=== PATIENT | female | born 1960 | race African-American/Black ===

== ENCOUNTER 2016-09-22 16:19 | Emergency (ER) | payer MEDICAID ==
[~2016-09-22] VITALS: Ht 154.9 cm; Wt 79.8 kg
[~2016-09-22 16:19] MED LIST: ATENOLOL25 MG ORAL; CARDURA4 MG ORAL; CIPRO500 MG PO; CYCLOBENZAPRINE10 MG ORAL; FLAGYL500 MG ORAL; GABAPENTIN300 MG ORAL; GABAPENTIN600 MG ORAL; IBUPROFEN400 MG ORAL; IBUPROFEN600 MG ORAL; TRAMADOL HCL50 MG ORAL; TYLENOL EXTRA500 MG ORAL; insulin SQ
[2016-09-22] MEDS ORDERED: traMADol 50mg tab ORAL ONE (16:45)
[2016-09-22] MEDS ORDERED: GABAPENTIN600 MG ORAL (17:29)
[2016-09-22] MEDS ORDERED: CEPHALEXIN500 MG ORAL (17:29)
[2016-09-22] MEDS ORDERED: TRAMADOL HCL50 MG ORAL (17:29)
[2016-09-22 17:45] VITALS: BP 158/90
[2016-09-22 17:47] VITALS: BP 158/90
--- NOTE | 2016-09-22 19:15 | Emergency Room Report ---
History of Present Illness General Chief Complaint: Pain Source: Patient Present Illness HPI The patient is a 56-year-old female with a history of chronic pain and diabetic neuropathy presenting for pain. The patient states that she has a 10 out of 10 dull ache to bilateral hips, legs, and arms. Pain worse with movement. She admits to numbness and tingling of these areas. She states that this feels typical of her pain. She has been prescribed gabapentin and tramadol in the past which both helped. She states that she has not been able to see her primary doctor. She denies any recent injury or fall. She denies any other symptoms including N, V, F, chills, KELLER, dizziness, CP, SOB Allergies: Coded Allergies: No Known Allergies (Unverified , 07/30/15) Patient History Past Medical History: see triage record Pertinent Family History: none Reviewed Nursing Documentation: PMH: Agreed, PSxH: Agreed Nursing Documentation-PMH Hx Hypertension: Yes Hx Diabetes: Yes Review of Systems All Other Systems: negative except mentioned in HPI Physical Exam Vital Signs Date Time Temp Pulse Resp B/P Pulse Ox O2 Delivery O2 Flow Rate FiO2 09/22/16 16:31 98.2 109 20 166/91 98 Room Air Sp02 EP Interpretation: reviewed, normal General Appearance: no apparent distress, alert, GCS 15, non-toxic Head: normocephalic, atraumatic Eyes: bilateral eye PERRL, bilateral eye normal inspection ENT: hearing grossly normal, normal pharynx, no angioedema, normal voice Neck: full range of motion, supple/symm/no masses Respiratory: chest non-tender, lungs clear, normal breath sounds, speaking full sentences Cardiovascular #1: regular rate, rhythm, no edema Gastrointestinal: normal bowel sounds, non tender, soft, non-distended, no guarding, no rebound Musculoskeletal: gait/station normal, normal range of motion, swelling - R distal leg, tender - TTP over the R anterior distal leg with surrounding erythema 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, oriented x3, responsive, motor strength/tone normal, sensory intact, normal gait, speech normal Psychiatric: judgement/insight normal, memory normal, mood/affect normal, no suicidal/homicidal ideation Skin: rash - erythema and TTP over the distal R anterior leg Medical Decision Making PA Attestation Dr. Younger is my supervising physician. Patient management was discussed with my supervising physician Diagnostic Impression: Primary Impression: Cellulitis, leg Qualified Codes: L03.115 - Cellulitis of right lower limb Additional Impressions: Chronic hip pain Qualified Codes: M25.559 - Pain in unspecified hip; G89.29 - Other chronic pain Neuropathy ER Course The pt is a 56 yo F presenting for neuropathy, chronic pain, and possible infection of the R leg. Ddx considered include but not limited to sprain/strain, fracture, contusion, cellulitis, abscess, among others PE: afebrile. NAD SILT over the hands and feet. Full AROM. Normal gait There are two circular erythematous lesions to the distal R anterior leg. TTP. 1 + non pitting edema. The patient will be discharged home with a prescription for gabapentin, tramadol , and Keflex. She is to followup with primary doctor. ER precautions given Last Vital Signs Date Time Temp Pulse Resp B/P Pulse Ox O2 Delivery O2 Flow Rate FiO2 09/22/16 17:48 98.2 09/22/16 17:47 83 20 158/90 98 Room Air Status: improved Disposition: HOME, SELF-CARE Condition: Improved Scripts Tramadol Hcl* (ULTRAM*) 50 Mg Tablet 50 MG ORAL Q6H Y for For Pain, #10 TAB 0 Refills Prov: JANINE HENDERSON.A. 09/22/16 Cephalexin* (KEFLEX*) 500 Mg Capsule 500 MG ORAL EVERY 6 HOURS, #28 CAP Prov: TERZIAN,JANINE P.A. 09/22/16 Gabapentin* (GABAPENTIN*) 600 Mg Tablet 600 MG ORAL THREE TIMES A DAY, #30 TAB Prov: JANINE HENDERSON P.A. 09/22/16 Patient Instructions: Cellulitis, Chronic Pain Additional Instructions: I discussed my findings with the patient. All questions and concerns have been answered. Treatment and medication compliance have been addressed. I advised the patient that they need to follow up with PMD in 3-5 days. Return to ED if symptoms worsen, new symptoms arise, or if needed for any reason. Patient verbalized understanding of discharge instructions. JANINE HENDERSON Sep 22, 2016 19:15
== END 2016-09-22 17:48 | disposition home or self-care (01) ==
LOC: EMR 16:50
DX: L03.115 Cellulitis of right lower limb (principal); G89.29 Other chronic pain; I10 Essential (primary) hypertension; E11.9 Type 2 diabetes mellitus without complications; G62.9 Polyneuropathy, unspecified
CPT/HCPCS: 99284

== ENCOUNTER 2016-12-01 10:21 | Emergency (ER) | payer MEDICAID ==
[~2016-12-01] VITALS: Ht 157.5 cm; Wt 78.9 kg
[~2016-12-01 10:21] MED LIST changes: +CEPHALEXIN500 MG ORAL
[2016-12-01] MEDS ORDERED: Morphine Sulfate 4mg/ml Inj IVP ONE ×2 (11:00→13:15)
[2016-12-01 11:42] LABS: APPEARANCE,URINE SLIGHTLY CLOUDY; KETONES,URINE NEGATIVE (NEGATIVE); LEUKOCYTE ESTERASE ,URINE 1+ (NEGATIVE); NITRITE,URINE NEGATIVE (NEGATIVE); PH,URINE 6.5 (4.5-8.0); PROTEIN,URINE 2+ (NEGATIVE); UROBILINOGEN,URINE 1 MG/DL (0.0-1.0)
[2016-12-01 11:50] LABS: BASOPHILS % (AUTO) 0.8 % (0.0-2.0); EOSINOPHILS % (AUTO) 5.6 % (0.0-3.0); LYMPHOCYTES % (AUTO) 24.5 % (20.0-45.0); MEAN CORPUSCULAR HEMOGLOBIN 30.6 PG (27.0-31.0); MEAN CORPUSCULAR HGB CONC 33.5 G/DL (32.0-36.0); MEAN CORPUSCULAR VOLUME 91 FL (80-99); MEAN PLATELET VOLUME 6.6 FL (6.5-10.1); MONOCYTES % (AUTO) 4.8 % (1.0-10.0); NEUTROPHILS % (AUTO) 64.3 % (45.0-75.0); PLATELET COUNT 353 K/UL (150-450); RED BLOOD COUNT 4.27 M/UL (4.20-5.40); RED CELL DISTRIBUTION WIDTH 11.4 % (11.6-14.8); WHITE BLOOD COUNT 7.1 K/UL (4.8-10.8)
[2016-12-01 11:57] LABS: ALANINE AMINOTRANSFERASE 53 U/L (3-33); ALBUMIN/GLOBULIN RATIO 0.8 (1.0-2.7); ANION GAP 12 (5-15); ASPARTATE AMINO TRANSFERASE 76 U/L (5-40); CALCIUM 9.1 mg/dL (8.6-10.2); CARBON DIOXIDE 28 mEQ/L (20-30); CHLORIDE 96 mEQ/L (98-107); CREATININE 0.7 mg/dL (0.5-0.9); GLOMERULAR FILTRATION RATE > 60 mL/min (>60); HEMOLYSIS 19; LIPASE 31 U/L (< 60); POTASSIUM 3.8 mEQ/L (3.4-4.9); SODIUM 136 mEQ/L (135-145); TOTAL PROTEIN 8.2 g/dL (6.6-8.7)
[2016-12-01 12:08] VITALS: BP 118/78
[2016-12-01 12:18] LABS: BACTERIA,URINE MANY /HPF; RBC,URINE 0-2 /HPF (0 - 2); SQUAMOUS EPITHELIAL CELL,UR FEW /LPF (NONE/OCC)
--- NOTE | 2016-12-01 14:38 | Diagnostic Imaging Report ---
Indication: Abdominal pain Technique: Continuous helical transaxial imaging of the abdomen and pelvis was obtained from the lung bases to the pubic symphysis during intravenous contrast administration. Coronal 2-D reformats were also obtained. Study obtained in a Siemens sensation [address] Total Dose length Product (DLP): [address] Dose Index Volume (CTDIvol): 19 mGy Comparison: None Findings: The lung bases are clear. The liver is low in attenuation consistent with fatty infiltration. Gallbladder is unremarkable. There are no renal stones or hydronephrosis demonstrated. Diverticula noted in the colon. No evidence of diverticulitis. The uterus is absent. The urinary bladder is unremarkable. The appendix is probably visualized and unremarkable as such. There are surgical clips in the right adnexa/right lower quadrant. Spleen and pancreas are unremarkable. Both adrenal glands are grossly unremarkable. There is narrowing of intervertebral discs and accompanying endplate osteophyte formation. Hypertrophied facet joints also demonstrated. Impression: Mild fatty liver. Normal appendix. Mild diverticulosis. Status post hysterectomy Spondylosis Previous abdominal surgery. The CT scanner at [facility] is accredited by the [employer] and the scans are performed using dose optimization techniques as appropriate to a performed exam including Automatic Exposure control.
[2016-12-01] MEDS ORDERED: TRAMADOL HCL50 MG ORAL (14:55)
[2016-12-01] MEDS ORDERED: GABAPENTIN600 MG ORAL (14:55)
[2016-12-01 15:09] VITALS: BP 117/75
--- NOTE | 2016-12-01 15:15 | Emergency Room Report ---
History of Present Illness General Chief Complaint: Pain Source: Patient Present Illness HPI 56-year-old female presents ED complaining of right-sided abdominal pain started last week. Pain is sharp, nonradiating, 10 out of 10. Patient states the pain is getting worse and she came to ER. Denies any chest pain or shortness of breath. Denies any fevers or chills. Denies nausea or vomiting. No aggravating relieving factors. Denies any other associated symptoms Allergies: Coded Allergies: No Known Allergies (Unverified , 07/30/15) Patient History Past Medical History: DM, HTN Past Surgical History: none Pertinent Family History: none Social History: Denies: smoking, alcohol use, drug use Now: No Immunizations: UTD Reviewed Nursing Documentation: PMH: Agreed, PSxH: Agreed Nursing Documentation-PMH Past Medical History: No History, Except For Hx Hypertension: Yes Hx Diabetes: Yes Review of Systems All Other Systems: negative except mentioned in HPI Physical Exam Vital Signs Date Time Temp Pulse Resp B/P (MAP) Pulse Ox O2 Delivery O2 Flow Rate FiO2 12/01/16 10:30 97.9 95 16 118/78 98 Room Air Sp02 EP Interpretation: reviewed, normal General Appearance: no apparent distress, alert, GCS 15, non-toxic Head: normocephalic, atraumatic Eyes: bilateral eye normal inspection, bilateral eye PERRL ENT: hearing grossly normal, normal pharynx, no angioedema, normal voice Neck: full range of motion, supple/symm/no masses Respiratory: chest non-tender, lungs clear, normal breath sounds, speaking full sentences Cardiovascular #1: regular rate, rhythm, no edema Cardiovascular #2: 2+ carotid (R), 2+ carotid (L), 2+ radial (R), 2+ radial (L) , 2+ dorsalis pedis (R), 2+ dorsalis pedis (L) Gastrointestinal: normal bowel sounds, soft, non-distended, no guarding, no rebound, tenderness - RUQ Rectal: deferred Genitourinary: normal inspection, no CVA tenderness Musculoskeletal: back normal, gait/station normal, normal range of motion, non- tender 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, oriented x3, responsive, motor strength/tone normal, sensory intact, speech normal Psychiatric: judgement/insight normal, memory normal, mood/affect normal, no suicidal/homicidal ideation Reflexes: 3+ bicep (R), 3+ bicep (L), 3+ tricep (R), 3+ tricep (L), 3+ knee (R) , 3+ knee (L) Skin: normal color, no rash, warm/dry, well hydrated Lymphatic: no adenopathy Medical Decision Making Diagnostic Impression: Primary Impression: Abdominal pain Qualified Codes: R10.11 - Right upper quadrant pain Additional Impression: Fatty liver ER Course Hospital Course 56-year-old F presents to ED with RUQ pain Differential diagnosis includes-appendicitis, cholecystitis, small bowel obstruction, gastritis, Clinical course Patient placed on stretcher. After initial history and physical I ordered labs , IV fluids, pain medications and CT scan Labs - no leukocytosis, electrolytes ok, LFTs mildly elevated CT scan shows no acute pathology. GB Normal. fatty liver also seen on US Discussed findings with patient. patient will be discharged with pain medications recommend followup with PMD I feel this is a highly complex case requiring extensive working including EKG/ Rhythm strip, Xray/CT/US, Blood/urine lab work, repeat exams while in ED, and administration of strong opiates/narcotics for pain control, admission to hospital or close patient follow up. Diagnosis - abdominal pain, fatty liver Stable and discharged to home with Rx Tramadol, Gabapentin. Followup with PMD. Return to ED if symptoms recur or worsen Labs Test 12/01/16 11:10 White Blood Count 7.1 K/UL (4.8-10.8) Red Blood Count 4.27 M/UL (4.20-5.40) Hemoglobin 13.1 G/DL (12.0-16.0) Hematocrit 38.9 % (37.0-47.0) Mean Corpuscular Volume 91 FL (80-99) Mean Corpuscular Hemoglobin 30.6 PG (27.0-31.0) Mean Corpuscular Hemoglobin Concent 33.5 G/DL (32.0-36.0) Red Cell Distribution Width 11.4 % (11.6-14.8) Platelet Count 353 K/UL (150-450) Mean Platelet Volume 6.6 FL (6.5-10.1) Neutrophils (%) (Auto) 64.3 % (45.0-75.0) Lymphocytes (%) (Auto) 24.5 % (20.0-45.0) Monocytes (%) (Auto) 4.8 % (1.0-10.0) Eosinophils (%) (Auto) 5.6 % (0.0-3.0) Basophils (%) (Auto) 0.8 % (0.0-2.0) Urine Color Yellow Urine Appearance Slightly cloudy Urine pH 6.5 (4.5-8.0) Urine Specific [place] 1.015 (1.005-1.035) Urine Protein 2+ (NEGATIVE) Urine Glucose (UA) 4+ (NEGATIVE) Urine Ketones Negative (NEGATIVE) Urine Occult Blood Negative (NEGATIVE) Urine Nitrite Negative (NEGATIVE) Urine Bilirubin Negative (NEGATIVE) Urine Urobilinogen 1 MG/DL (0.0-1.0) Urine Leukocyte Esterase 1+ (NEGATIVE) Urine RBC 0-2 /HPF (0 - 2) Urine WBC 5-10 /HPF (0 - 2) Urine Squamous Epithelial Cells Few /LPF (NONE/OCC) Urine Bacteria Many /HPF (NONE) Sodium Level 136 mEQ/L (135-145) Potassium Level 3.8 mEQ/L (3.4-4.9) Chloride Level 96 mEQ/L (98-107) Carbon Dioxide Level 28 mEQ/L (20-30) Anion Gap 12 (5-15) Blood Urea Nitrogen 10 mg/dL (7-23) Creatinine 0.7 mg/dL (0.5-0.9) Estimat Glomerular Filtration Rate > 60 mL/min (>60) Glucose Level 405 mg/dL (74-106) Calcium Level 9.1 mg/dL (8.6-10.2) Total Bilirubin 0.5 mg/dL (0.0-1.2) Aspartate Amino Transf (AST/SGOT) 76 U/L (5-40) Alanine Aminotransferase (ALT/SGPT) 53 U/L (3-33) Alkaline Phosphatase 236 U/L (35-104) Total Protein 8.2 g/dL (6.6-8.7) Albumin 3.7 g/dL (3.5-5.2) Globulin 4.5 g/dL Albumin/Globulin Ratio 0.8 (1.0-2.7) Lipase 31 U/L (< 60) CT/MRI/US Diagnostic Results CT/MRI/US Diagnostic Results #1: Imaging Test Ordered: CT A/P Impression fatty liver CT/MRI/US Diagnostic Results #2: Imaging Test Ordered: ABD US Impression fatty liver, normal GB Last Vital Signs Date Time Temp Pulse Resp B/P (MAP) Pulse Ox O2 Delivery O2 Flow Rate FiO2 12/01/16 15:09 97.9 81 16 117/75 98 Room Air Disposition: HOME, SELF-CARE Condition: Stable Scripts Gabapentin* (GABAPENTIN*) 600 Mg Tablet 600 MG ORAL THREE TIMES A DAY, #30 TAB Prov: VINNIE GREEN M.D. 12/01/16 Tramadol Hcl* (ULTRAM*) 50 Mg Tablet 50 MG ORAL Q6H Y for For Pain, #30 TAB 0 Refills Prov: VINNIE GREEN M.D. 12/01/16 Referrals: NOT CHOSEN IPA/,REFERRING (PCP) Patient Instructions: Abdominal Pain, Adult, [id number], Hepatomegaly, Easy- to-Read VINNIE GREEN M.D. Dec 01, 2016 15:15
--- NOTE | 2016-12-01 15:34 | Diagnostic Imaging Report ---
Indication:Abdominal pain Technique: Grayscale and duplex Doppler imaging of the abdomen performed. Comparison: None Findings: The liver is slightly echogenic consistent with fatty infiltration. No gallstones are seen. CBD is 5 mm. The demonstrated part of the pancreas, aorta and IVC, both kidneys, spleen appear unremarkable. There is no biliary ductal dilatation identified. Doppler evaluation of the main portal vein shows patency. There is no ascites. No hydronephrosis seen. Impression: Mild fatty liver
== END 2016-12-01 15:12 | disposition home or self-care (01) ==
LOC: EMR 11:20
DX: R10.11 Right upper quadrant pain (principal); K76.0 Fatty (change of) liver, not elsewhere classified; E11.9 Type 2 diabetes mellitus without complications; I10 Essential (primary) hypertension
CPT/HCPCS: 36415; 74177; 76700; 80053; 81003; 83690; 85025; 87086; 87181; 96374; 96375; 99284; J2270; J7040; Q9967

== ENCOUNTER 2016-12-23 09:30 | Emergency (ER) | payer MEDICAID ==
[~2016-12-23] VITALS: Ht 157.5 cm; Wt 81.2 kg
[2016-12-23 09:42] VITALS: BP 173/101
[2016-12-23] MEDS ORDERED: Ketorolac 60mg Inj IM ONE (10:15)
[2016-12-23 10:38] LABS: APPEARANCE,URINE CLEAR; KETONES,URINE NEGATIVE (NEGATIVE); LEUKOCYTE ESTERASE ,URINE 2+ (NEGATIVE); NITRITE,URINE NEGATIVE (NEGATIVE); PH,URINE 7 (4.5-8.0); PROTEIN,URINE 2+ (NEGATIVE); UROBILINOGEN,URINE 4 MG/DL (0.0-1.0)
[2016-12-23 10:47] LABS: BACTERIA,URINE FEW /HPF; RBC,URINE 0-2 /HPF (0 - 2); SQUAMOUS EPITHELIAL CELL,UR FEW /LPF (NONE/OCC)
[2016-12-23 11:38] VITALS: BP 156/92
[2016-12-23 12:45] VITALS: BP 196/121
[2016-12-23 13:14] VITALS: BP 171/110
[2016-12-23] MEDS ORDERED: TRAMADOL HCL50 MG ORAL (13:16)
[2016-12-23 13:18] VITALS: BP 171/110
--- NOTE | 2016-12-24 23:13 | Emergency Room Report ---
History of Present Illness General Chief Complaint: Pain Source: Patient Present Illness HPI Patient is a 56-year-old female who presented after increased right-sided back pain as well as some dysuria. This reported increased urinary frequency. She reported having similar symptoms in the past. Patient prior history of chronic back pain. She is taking tramadol for pain in the past. She denies any fever. She had not been vomiting. Allergies: Coded Allergies: No Known Allergies (Unverified , 07/30/15) Patient History Past Medical History: see triage record Reviewed Nursing Documentation: PMH: Agreed, PSxH: Agreed Nursing Documentation-PM Past Medical History: No History, Except For Hx Hypertension: Yes Hx Diabetes: Yes Review of Systems All Other Systems: negative except mentioned in HPI Physical Exam Vital Signs Date Time Temp Pulse Resp B/P (MAP) Pulse Ox O2 Delivery O2 Flow Rate FiO2 12/23/16 09:42 97.9 96 22 173/101 98 Room Air General Appearance: well appearing, no apparent distress, alert, GCS 15 Head: normocephalic, atraumatic ENT: hearing grossly normal, normal voice Neck: full range of motion, supple Respiratory: normal inspection, lungs clear, no respiratory distress, speaking full sentences Cardiovascular #1: normal inspection, regular rate, rhythm, no gallop Gastrointestinal: normal bowel sounds, non tender, soft Musculoskeletal: normal inspection, back normal, gait/station normal, no calf tenderness Neurologic: normal inspection, alert, oriented x3, mobile engineer III-XII nml as tested, normal gait Psychiatric: mood/affect normal Skin: no rash Medical Decision Making Diagnostic Impression: Primary Impression: Hypertension Additional Impressions: Back pain UTI (urinary tract infection) ER Course Presented for back pain. Differential diagnosis included but was not limited to herniated disc, cauda equina syndrome, abdominal aortic aneurysm, perforated ulcer, spinal epidural abscess, spinal stenosis, lumbar fracture, metastatic lesion, pyelonephritis. urinalysis ordered due to patient's recent high urinary symptoms. The patient was noted to have some hypertension was given clonidine. Patient had improvement of pain. The patient given prescription for pain medications as well as antibiotics. Last Vital Signs Date Time Temp Pulse Resp B/P (MAP) Pulse Ox O2 Delivery O2 Flow Rate FiO2 12/23/16 13:18 97.9 85 18 171/110 100 Room Air Status: improved Disposition: HOME, SELF-CARE Condition: Stable Scripts Tramadol Hcl* (ULTRAM*) 50 Mg Tablet 50 MG ORAL Q6H Y for For Pain, #30 TAB 0 Refills Prov: Angelito Yanez 12/23/16 Patient Instructions: Urinary Tract Infection Angelito Yanez Dec 24, 2016 23:13
== END 2016-12-23 13:17 | disposition home or self-care (01) ==
LOC: EMR 10:08
DX: N39.0 Urinary tract infection, site not specified (principal); I10 Essential (primary) hypertension; E11.9 Type 2 diabetes mellitus without complications
CPT/HCPCS: 81003; 96372; 99284

== ENCOUNTER 2017-01-25 07:26 | Emergency (ER) | payer MEDICAID ==
[~2017-01-25] VITALS: Ht 157.5 cm; Wt 79.8 kg
[2017-01-25] MEDS ORDERED: GABAPENTIN600 MG ORAL (07:55)
[2017-01-25] MEDS ORDERED: ATENOLOL25 MG ORAL (07:55)
[2017-01-25 08:01] VITALS: BP 203/103
[2017-01-25 08:08] VITALS: BP 203/103
--- NOTE | 2017-01-25 08:16 | Emergency Room Report ---
History of Present Illness General Chief Complaint: Pain Source: Patient Present Illness HPI 56-year-old female presents ED for evaluation. Patient is here requesting medication refill. Patient states she ran out of her medications times one week. patient does not have her blood pressure or pain medications. Patient notes history of hypertension and chronic back pain. Blood pressure elevated in triage. Patient denies any headaches blurry vision or dizziness. Denies chest pain or shortness of breath. Patient is complaining of back pain. Pain is sharp, 10 out of 10, radiating down both legs. The tingling sensation in both feet. Patient states she takes tramadol and gabapentin for her pain. Patient does not remember what blood pressure medications she takes. No aggravating relieving factors. Denies any other associated symptoms Allergies: Coded Allergies: No Known Allergies (Unverified , 07/30/15) Patient History Past Medical History: DM, HTN Past Surgical History: none Pertinent Family History: none Social History: Denies: smoking, alcohol use, drug use Now: No Immunizations: UTD Reviewed Nursing Documentation: PMH: Agreed, PSxH: Agreed Nursing Documentation-PMH Past Medical History: No History, Except For Hx Hypertension: Yes Hx Diabetes: Yes Review of Systems All Other Systems: negative except mentioned in HPI Physical Exam Vital Signs Date Time Temp Pulse Resp B/P (MAP) Pulse Ox O2 Delivery O2 Flow Rate FiO2 01/25/17 07:34 97.9 83 18 203/103 96 Room Air Sp02 EP Interpretation: reviewed, normal General Appearance: no apparent distress, alert, GCS 15, non-toxic, obese Head: normocephalic, atraumatic Eyes: bilateral eye normal inspection, bilateral eye PERRL ENT: hearing grossly normal, normal pharynx, no angioedema, normal voice Neck: full range of motion, supple/symm/no masses Respiratory: chest non-tender, lungs clear, normal breath sounds, speaking full sentences Cardiovascular #1: regular rate, rhythm, no edema Cardiovascular #2: 2+ carotid (R), 2+ carotid (L), 2+ radial (R), 2+ radial (L) , 2+ dorsalis pedis (R), 2+ dorsalis pedis (L) Gastrointestinal: normal bowel sounds, non tender, soft, non-distended, no guarding, no rebound Rectal: deferred Genitourinary: normal inspection, no CVA tenderness Musculoskeletal: back normal, gait/station normal, normal range of motion, non- tender 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, oriented x3, responsive, motor strength/tone normal, sensory intact, speech normal Psychiatric: judgement/insight normal, memory normal, mood/affect normal, no suicidal/homicidal ideation Reflexes: 3+ bicep (R), 3+ bicep (L), 3+ tricep (R), 3+ tricep (L), 3+ knee (R) , 3+ knee (L) Skin: normal color, no rash, warm/dry, well hydrated Lymphatic: no adenopathy Medical Decision Making Diagnostic Impression: Primary Impression: Low back pain Qualified Codes: M54.42 - Lumbago with sciatica, left side; M54.41 - Lumbago with sciatica, right side; G89.29 - Other chronic pain Additional Impressions: Hypertension Qualified Codes: I10 - Essential (primary) hypertension Opioid dependence Qualified Codes: F11.29 - Opioid dependence with unspecified opioid-induced disorder ER Course 56-year-old female presents to ED refill of her medication. History of chronic pain and hypertension hospital course: After initial history and physical, I reviewed EMR. Patient takes atenolol for her blood pressure. Patient is asymptomatic. We'll provide refills of her atenolol I reviewed CURES; a she was getting monthly refills of her tramadol. I explained to the patient I cannot provider refill of her medication she needs to followup with her PMD/pain management. I will provide her with refills of her gabapentin Diagnosis- low back pain, hypertension, opioid dependence Stable and discharged to home with prescription for atenolol, gabapentin. Followup with PMD. Return to ED if symptoms recur or worsen Last Vital Signs Date Time Temp Pulse Resp B/P (MAP) Pulse Ox O2 Delivery O2 Flow Rate FiO2 01/25/17 08:01 83 16 203/103 98 Room Air 01/25/17 07:34 97.9 Status: improved Disposition: HOME, SELF-CARE Condition: Stable Scripts Atenolol* (TENORMIN*) 25 Mg Tablet 25 MG ORAL BID, #30 TAB Prov: VINNIE GREEN M.D. 01/25/17 Gabapentin* (GABAPENTIN*) 600 Mg Tablet 600 MG ORAL THREE TIMES A DAY, #30 TAB Prov: VINNIE GREEN M.D. 01/25/17 Referrals: NOT CHOSEN IPA/,REFERRING (PCP) Patient Instructions: Chronic Pain VINNIE GREEN M.D. Jan 25, 2017 08:16
== END 2017-01-25 08:08 | disposition home or self-care (01) ==
LOC: EMR 07:48
DX: M54.5 Low back pain (principal); G89.29 Other chronic pain; I10 Essential (primary) hypertension; E11.9 Type 2 diabetes mellitus without complications; F11.20 Opioid dependence, uncomplicated
CPT/HCPCS: 82962; 99283

== ENCOUNTER 2017-04-17 13:49 | Emergency (ER) | payer MEDICAID ==
[~2017-04-17] VITALS: Ht 154.9 cm; Wt 77.6 kg
[2017-04-17 13:55] VITALS: BP 147/86
[2017-04-17] MEDS ORDERED: AMLODIPINE BESY10 MG ORAL (13:59)
[2017-04-17] MEDS ORDERED: LISINOPRIL20 MG ORAL (13:59)
[2017-04-17] MEDS ORDERED: NOVOLIN 70100 UNIT/1 SUBQ (13:59)
[2017-04-17] MEDS ORDERED: HYDROCHLOROTHIA25 MG ORAL (13:59)
[2017-04-17] MEDS ORDERED: Sodium Chloride 500ML 500 ML IV ONE (14:08)
--- NOTE | 2017-04-17 14:11 | Emergency Room Report ---
History of Present Illness General Chief Complaint: Abdominal Pain Source: Patient, Medical Record Present Illness HPI Patient is a 56 female presented after increased sharp epigastric pain. Patient presented multiple episodes of watery diarrhea. Pain with the noted to be present for one week however this worsened this morning. Patient states that she had prior hysterectomy. She denies prior other surgeries. Patient states that she had no known bad food exposure. The patient denies being a smoker. Allergies: Coded Allergies: No Known Allergies (Unverified , 07/30/15) Patient History Last Menstrual Period: menopause Reviewed Nursing Documentation: PMH: Agreed, PSxH: Agreed Nursing Documentation-PMH Past Medical History: No History, Except For Hx Hypertension: Yes Hx Diabetes: Yes Review of Systems All Other Systems: negative except mentioned in HPI Physical Exam Vital Signs Date Time Temp Pulse Resp B/P (MAP) Pulse Ox O2 Delivery O2 Flow Rate FiO2 04/17/17 13:55 98.2 96 18 147/86 96 Room Air Sp02 EP Interpretation: reviewed, normal General Appearance: normal inspection, well appearing, no apparent distress, alert, GCS 15, non-toxic, obese Head: atraumatic ENT: normal ENT inspection, hearing grossly normal, normal voice Neck: normal inspection, full range of motion, supple, no bony tend Respiratory: normal inspection, lungs clear, normal breath sounds, no respiratory distress, no retraction, no wheezing Cardiovascular #1: regular rate, rhythm, no edema Gastrointestinal: normal inspection, normal bowel sounds, non tender, soft, no guarding, no hernia Genitourinary: no CVA tenderness Musculoskeletal: normal inspection, back normal, normal range of motion Neurologic: normal inspection, alert, oriented x3, responsive, hourly sign language interpreter III-XII nml as tested, speech normal Psychiatric: normal inspection, judgement/insight normal, mood/affect normal Skin: normal inspection, normal color, no rash Medical Decision Making Diagnostic Impression: Primary Impression: Abdominal pain Additional Impressions: Fatty liver Gastritis ER Course Patient presented for abdominal pain. Differential diagnoses included ischemic bowel, appendicitis, perforated viscus, abdominal aortic aneurysm, inferior myocardial infarction, viral gastroenteritis Because of complexity of patient's case laboratory testing and imaging studies were ordered.A CT imaging of the abdomen and pelvis showed no acute changes from previous CT read by radiology. Patient was noted to have fatty liver and is advised dietary modification. The patient is advised to follow up with primary care doctor in 1-2 days. Patient is advised to return if any worsening condition or if any changes in status that are concerning. This report is dictated with [employer] lace burn out tender software which may occasionally lead to discrepancies related to use of this software. Labs Test 04/17/17 14:17 04/17/17 16:45 White Blood Count 11.1 K/UL (4.8-10.8) Red Blood Count 4.30 M/UL (4.20-5.40) Hemoglobin 12.6 G/DL (12.0-16.0) Hematocrit 39.4 % (37.0-47.0) Mean Corpuscular Volume 92 FL (80-99) Mean Corpuscular Hemoglobin 29.2 PG (27.0-31.0) Mean Corpuscular Hemoglobin Concent 31.9 G/DL (32.0-36.0) Red Cell Distribution Width 11.7 % (11.6-14.8) Platelet Count 401 K/UL (150-450) Mean Platelet Volume 6.1 FL (6.5-10.1) Neutrophils (%) (Auto) 70.9 % (45.0-75.0) Lymphocytes (%) (Auto) 21.9 % (20.0-45.0) Monocytes (%) (Auto) 4.4 % (1.0-10.0) Eosinophils (%) (Auto) 1.7 % (0.0-3.0) Basophils (%) (Auto) 1.1 % (0.0-2.0) Prothrombin Time 10.2 SEC (9.30-11.50) Prothromb Time International Ratio 1.0 (0.9-1.1) Activated Partial Thromboplast Time 27 SEC (23-33) Sodium Level 142 MMOL/L (136-145) Potassium Level 3.2 MMOL/L (3.5-5.1) Chloride Level 101 MMOL/L (98-107) Carbon Dioxide Level 34 MMOL/L (21-32) Anion Gap 7 mmol/L (5-15) Blood Urea Nitrogen 13 mg/dL (7-18) Creatinine 0.8 MG/DL (0.55-1.30) Estimat Glomerular Filtration Rate > 60 mL/min (>60) Glucose Level 148 MG/DL (74-106) Calcium Level 9.3 MG/DL (8.5-10.1) Total Bilirubin 1.0 MG/DL (0.2-1.0) Aspartate Amino Transf (AST/SGOT) 79 U/L (15-37) Alanine Aminotransferase (ALT/SGPT) 75 U/L (12-78) Alkaline Phosphatase 200 U/L (46-116) Troponin I 0.000 ng/mL (0.000-0.056) Total Protein 8.1 G/DL (6.4-8.2) Albumin 3.3 G/DL (3.4-5.0) Globulin 4.8 g/dL Albumin/Globulin Ratio 0.7 (1.0-2.7) Lipase 324 U/L (73-393) Urine Color Pale yellow Urine Appearance Slightly cloudy Urine pH 7 (4.5-8.0) Urine Specific [place] 1.005 (1.005-1.035) Urine Protein Negative (NEGATIVE) Urine Glucose (UA) Negative (NEGATIVE) Urine Ketones Negative (NEGATIVE) Urine Occult Blood Negative (NEGATIVE) Urine Nitrite Negative (NEGATIVE) Urine Bilirubin Negative (NEGATIVE) Urine Urobilinogen Normal MG/DL (0.0-1.0) Urine Leukocyte Esterase 3+ (NEGATIVE) Urine RBC 0-2 /HPF (0 - 2) Urine WBC 10-15 /HPF (0 - 2) Urine Squamous Epithelial Cells Few /LPF (NONE/OCC) Urine Bacteria Occasional /HPF (NONE) Last Vital Signs Date Time Temp Pulse Resp B/P (MAP) Pulse Ox O2 Delivery O2 Flow Rate FiO2 04/17/17 13:55 98.2 96 18 147/86 96 Room Air Status: improved Disposition: HOME, SELF-CARE Condition: Stable Scripts Dicyclomine Hcl* (BENTYL*) 10 Mg Capsule 10 MG ORAL FOUR TIMES A DAY, #14 CAP Prov: Angelito Yanez 04/17/17 Omeprazole (OMEPRAZOLE) 20 Mg Tablet. 20 MG ORAL DAILY, #30 TAB Prov: Angelito Yanez 04/17/17 Referrals: NOT CHOSEN ALEXANDRA/,REFERRING (PCP) Angelito Yanez Apr 17, 2017 14:11
[2017-04-17] MEDS ORDERED: Morphine Sulfate 2mg/ml Inj IVP ONE ×2 (14:15→16:30)
[2017-04-17] MEDS ORDERED: Lidocaine 2% Visc 15ml soln ORAL ONE (14:15)
[2017-04-17] MEDS ORDERED: Dicyclomine HCl 10mg/5ml oral soln ORAL ONE (14:15)
[2017-04-17] MEDS ORDERED: Mylanta II UD 30ml ORAL ONE (14:15)
[2017-04-17 14:40] LABS: ANION GAP 7 mmol/L (5-15); BLOOD UREA NITROGEN 13 mg/dL (7-18); CALCIUM 9.3 MG/DL (8.5-10.1); CARBON DIOXIDE 34 MMOL/L (21-32); CHLORIDE 101 MMOL/L (98-107); CREATININE 0.8 MG/DL (0.55-1.30); POTASSIUM 3.2 MMOL/L (3.5-5.1); SODIUM 142 MMOL/L (136-145)
[2017-04-17 14:44] LABS: ALANINE AMINOTRANSFERASE 75 U/L (12-78); ALBUMIN 3.3 G/DL (3.4-5.0); ALBUMIN/GLOBULIN RATIO 0.7 (1.0-2.7); ALKALINE PHOSPHATASE 200 U/L (46-116); ASPARTATE AMINO TRANSFERASE 79 U/L (15-37)
[2017-04-17 14:46] LABS: BASOPHILS % (AUTO) 1.1 % (0.0-2.0); EOSINOPHILS % (AUTO) 1.7 % (0.0-3.0); HEMATOCRIT 39.4 % (37.0-47.0); HEMOGLOBIN 12.6 G/DL (12.0-16.0); LYMPHOCYTES % (AUTO) 21.9 % (20.0-45.0); MEAN CORPUSCULAR VOLUME 92 FL (80-99); MONOCYTES % (AUTO) 4.4 % (1.0-10.0); NEUTROPHILS % (AUTO) 70.9 % (45.0-75.0); PLATELET COUNT 401 K/UL (150-450); RED CELL DISTRIBUTION WIDTH 11.7 % (11.6-14.8); WHITE BLOOD COUNT 11.1 K/UL (4.8-10.8)
[2017-04-17 15:30] VITALS: BP 131/112
[2017-04-17] MEDS ORDERED: BENTYL10 MG ORAL (16:54)
[2017-04-17] MEDS ORDERED: OMEPRAZOLE20 M3 ORAL (16:54)
[2017-04-17 17:03] LABS: APPEARANCE,URINE SLIGHTLY CLOUDY; BILIRUBIN, URINE NEGATIVE (NEGATIVE); COLOR,URINE PALE YELLOW; GLUCOSE, URINE (UA) NEGATIVE (NEGATIVE); KETONES,URINE NEGATIVE (NEGATIVE); LEUKOCYTE ESTERASE ,URINE 3+ (NEGATIVE); NITRITE,URINE NEGATIVE (NEGATIVE); PH,URINE 7 (4.5-8.0); PROTEIN,URINE NEGATIVE (NEGATIVE); UROBILINOGEN,URINE NORMAL MG/DL (0.0-1.0)
[2017-04-17 17:18] VITALS: BP 151/85
[2017-04-17 17:19] VITALS: BP 151/85
--- NOTE | 2017-04-18 08:59 | Diagnostic Imaging Report ---
Indication: Epigastric pain Technique: CT scan of the abdomen and pelvis was performed from the diaphragms to the symphysis pubis with intravenous contrast material only per specific request of the ordering physician.. 5 mm sections were generated. Axial, coronal, and sagittal images are presented. Dose: Total Dose Length Product - DLP [address] Dose Index - CTDIvol(s) 13.75 mGy. Automated exposure control was utilized for dose reduction. Comparison: 12/01/2016 Findings: The liver is unremarkable. The gallbladder is normal. The spleen is normal. The pancreas is unremarkable. Aorta and inferior vena cava are normal caliber. There is calcification in the iliac arteries. Adrenal glands are normal. Kidneys are unremarkable. The bowel is normal. The appendix is not visualized. The bladder is normal. Uterus is absent. No pelvic fluid. Remainder of exam is unremarkable. Degenerative changes are noted in the lumbar spine. Grade 1 anterolisthesis of L3 on L4 is noted, probably degenerative. Impression: Atherosclerotic change. Previous hysterectomy. Degenerative changes in the spine. Appendix not visualized. Degenerative changes in the lumbar spine with anterolisthesis of L3 on L4 Otherwise negative. The above report is concordant with preliminary reading by [employer] . The CT scanner at [facility] is accredited by the [employer] and the scans are performed using protocols designed to limit radiation exposure to as low as reasonably achievable to attain images of sufficient resolution adequate for diagnostic evaluation.
== END 2017-04-17 17:19 | disposition home or self-care (01) ==
LOC: EMR 14:05
DX: R10.13 Epigastric pain (principal); K76.0 Fatty (change of) liver, not elsewhere classified; K29.70 Gastritis, unspecified, without bleeding; I10 Essential (primary) hypertension; E11.9 Type 2 diabetes mellitus without complications; Z90.710 Acquired absence of both cervix and uterus
CPT/HCPCS: 36415; 74177; 80053; 81003; 83690; 84484; 85025; 85610; 85730; 87086; 96361; 96374; 96375; 99284; J2270; J7040; Q9967; S0028; J8499

== ENCOUNTER 2017-05-11 06:34 | Inpatient (IN) | payer MEDICAID ==
[~2017-05-11] VITALS: Ht 154.9 cm; Wt 79.8 kg
[2017-05-11] VITALS (9 sets, daily range): BP systolic 133–183; BP diastolic 70–112
[~2017-05-11 06:34] MED LIST changes: +AMLODIPINE BESY10 MG ORAL; +BENTYL10 MG ORAL; +HYDROCHLOROTHIA25 MG ORAL; +LISINOPRIL20 MG ORAL; +NOVOLIN 70100 UNIT/1 SUBQ; +OMEPRAZOLE20 M3 ORAL
[2017-05-11] MEDS ORDERED: Solu-MEDROL 125mg Inj IVP ONE (07:15)
--- NOTE | 2017-05-11 07:31 | Emergency Room Report ---
History of Present Illness General Chief Complaint: Flu Like Symptoms Source: Patient Present Illness HPI 56-year-old female with history of asthma, htn diabetes p/w SOB for 7 days. Patient states SOB began when one week ago. SOB occurs both at rest and on exertion. + productive cough. Denies chest pain. Patient ran out of albuterol 4 days ago, no recent steroid use Pt states that this episode is similar to other episodes of asthma exacerbation. Denies fever, chills. Denies sick contacts or recent travel. Patient denies history of ICU admissions, intubations, or usage of BIPAP for asthma. Denies history of PE/DVT, no recent surgeries, prolonged immobilization, malignancy Allergies: Coded Allergies: No Known Allergies (Unverified , 07/30/15) Patient History Past Medical History: see triage record Past Surgical History: none Pertinent Family History: none Reviewed Nursing Documentation: PMH: Agreed, PSxH: Agreed Nursing Documentation-PMH Past Medical History: No History, Except For Hx Hypertension: Yes Hx Diabetes: Yes Review of Systems All Other Systems: negative except mentioned in HPI Physical Exam Vital Signs Date Time Temp Pulse Resp B/P (MAP) Pulse Ox O2 Delivery O2 Flow Rate FiO2 05/11/17 06:42 97.8 91 16 170/112 95 Room Air 97.9 Sp02 EP Interpretation: reviewed, normal General Appearance: alert, GCS 15, non-toxic, moderate distress Head: normocephalic, atraumatic Eyes: bilateral eye normal inspection, bilateral eye PERRL, bilateral eye EOMI ENT: normal ENT inspection, normal pharynx, normal voice, moist mucus membranes Neck: normal inspection, full range of motion, supple Respiratory: respiratory distress, speaking full sentences, wheezing Cardiovascular #1: normal inspection, regular rate, rhythm, no edema, normal capillary refill Cardiovascular #2: 2+ radial (R), 2+ radial (L) Gastrointestinal: normal inspection, non tender, soft, non-distended, no guarding Musculoskeletal: normal inspection, back normal, normal range of motion, non- tender Neurologic: normal inspection, alert, oriented x3, responsive, motor strength/ tone normal, sensory intact, normal gait, speech normal Psychiatric: normal inspection, judgement/insight normal, memory normal Skin: normal inspection, normal color, no rash, warm/dry, well hydrated, normal turgor Medical Decision Making Diagnostic Impression: Primary Impression: Asthma exacerbation Additional Impression: UTI (urinary tract infection) ER Course 56-year-old female with history of asthma p/w SOB DDX: Asthma exacerbation, pneumonia, upper respiratory infection/viral syndrome PE is unlikely given other likely diagnoses which is more likely in this patients given clinical scenario and physical examination. Furthermore, there is no history of DVT/PE. PERC negative. No risk factors such as OCPs, prolonged immobilizations, recent surgeries, hypercoagulability. Plan: Combivent nebulizer treatment x 3, steroids, EKG, CXR If patient's condition minimally improves/worsens will require IV access and blood work. Possible IV medications such as magnesium sulfate, continuous albuterol, BIPAP. ER Course: Patient's respiratory status has been closely monitored in the ED. Patient has been treated with combivent x 3, steroids IV mag sulfate patients wheezing has improved her vital signs have been normal no hypoxia still slight wheezing first CXR possible small PTX, obtained 2nd one, still shows same thing. possible bulla per radiology CT chest ordered Disposition: Patient will be admitted to [facility] D/W hospitalist. Please note that this Emergency Department Report was dictated using [email or web address] technology software, occasionally this can lead to erroneous entry secondary to interpretation by the dictation equipment. EKG Diagnostic Results EP Interpretation: Yes Rate: normal Rhythm: NSR ST Segments: No acute changes ASA given to patient: No Rhythm Strip EP Interpretation: Yes Rate: 88 Rhythm: NSR, no PVCs, no ectopy Chest X-ray CXR: Ordered: Yes 1 view Indication: Chest pain EP interpretation: Yes There is a hyperlucent focus in the right upper lobe suspicious for emphysema. This could be postinflammatory given asymmetry with the remainder of the lungs. This could be a bulla. The heart is mildly enlarged. The aorta is also ectatic. Bones are unremarkable. IMPRESSION: Hyperlucency noted focally in the right lung apex. Findings suspicious for a bulla or emphysematous changes. Small pneumothorax is possible although this is less likely given the visceral margin of the pleura is not visualized. Findings discussed with Dr. Means in emergency dept. Electronically signed by Russell Means MD Chest X-ray CXR: Ordered: Yes 1 view Indication: SOB EP interpretation: Yes 2 views of the chest obtained. Hyperlucency again demonstrated in the upper aspect of the right upper lobe near the apex. In addition, there is a right perihilar distortion which may be due to scarring. There is a abnormal hilar fullness. Underlying adenopathy or mass is not excluded. Further evaluation with CT of the chest is recommended. Bones are osteopenic. Mild degenerative changes of the thoracic spine noted. IMPRESSION: Emphysematous changes suspected in the apex of the right upper lobe. Abnormal fullness of the right hilum. Further evaluation recommended with contrast-enhanced CT of the chest. Electronically signed by Russell Means MD Laboratory Tests Test 05/13/17 07:55 White Blood Count 11.7 K/UL (4.8-10.8) H Red Blood Count 3.56 M/UL (4.20-5.40) L Hemoglobin 10.9 G/DL (12.0-16.0) L Hematocrit 32.4 % (37.0-47.0) L Mean Corpuscular Volume 91 FL (80-99) Mean Corpuscular Hemoglobin 30.5 PG (27.0-31.0) Mean Corpuscular Hemoglobin Concent 33.5 G/DL (32.0-36.0) Red Cell Distribution Width 11.2 % (11.6-14.8) L Platelet Count 350 K/UL (150-450) Mean Platelet Volume 6.2 FL (6.5-10.1) L Neutrophils (%) (Auto) 66.1 % (45.0-75.0) Lymphocytes (%) (Auto) 23.2 % (20.0-45.0) Monocytes (%) (Auto) 5.4 % (1.0-10.0) Eosinophils (%) (Auto) 4.5 % (0.0-3.0) H Basophils (%) (Auto) 0.8 % (0.0-2.0) Sodium Level 139 MMOL/L (136-145) Potassium Level 3.6 MMOL/L (3.5-5.1) Chloride Level 103 MMOL/L (98-107) Carbon Dioxide Level 32 MMOL/L (21-32) Anion Gap 4 mmol/L (5-15) L Blood Urea Nitrogen 21 mg/dL (7-18) H Creatinine 0.8 MG/DL (0.55-1.30) Estimate Glomerular Filtration Rate > 60 mL/min (>60) Glucose Level 103 MG/DL (74-106) Calcium Level 8.8 MG/DL (8.5-10.1) Microbiology Date/Time Source Procedure Growth Status 05/11/17 15:20 Nasal Aspirate Influenza Types A,B Antigen (BINDU) - Final Complete CT/MRI/US Diagnostic Results CT/MRI/US Diagnostic Results : Imaging Test Ordered: CT chest Impression Findings: There is an unusual low density bilobed mass in the right suprahilar region measuring 4.1 x 5.7 x 3.0 cm. Its possible the mass is cystic. The mass remains low density despite intravenous contrast administration. There is a small chance that the mass is vascular given a small linear apparent feeding vessel that extends from the right upper lobe into this structure. I would therefore obtained a multiphasic examination repeating the CT scan in a dynamic fashion with contrast administration (for example obtaining arterial, venous and delayed phases). This linear structure does not enhance and is similar in attenuation to the mass. The aorta and pulmonary artery, branches of the pulmonary artery and the pulmonary veins opacify as they should and are different in attenuation from this mass or the small linear feeding vessel. Despite these observations, the mass is not likely to be vascular. The mass may be cystic such as an esophageal duplication cyst or other congenital cystic lesions, bronchogenic cyst possibly.. Malignant neoplasm is not excluded. In addition the right upper lobe is abnormal with relative absence of bronchial structures, absence of vascularity and resultant hyperlucency. This suggests some form of bronchial atresia or failure of development and this finding in the right upper lobe may be associated with the aforementioned suprahilar mass. The remainder of the lungs are clear. The heart is unremarkable. There is coronary and aortic calcification present. Small hiatal hernia is present. The liver appears low in attenuation consistent with fatty infiltration. The gallbladder is unremarkable as visualized. IMPRESSION: Unusual low density right suprahilar mass measuring 4.1 x 5.7 x 3.0 cm, possibly cystic. Suspect a congenital mass such as esophageal duplication cyst, bronchogenic cyst. Etiology is uncertain. Given the small possibility that this is a varix or vascular structure, recommend dynamic contrast-enhanced CT chest. Correlate with any known history. Hyperlucent right upper lobe with possibility of both bronchial structures and vessels indicative of failure of development (atresia). No evidence of pneumonia or other acute findings. Fatty liver Last Vital Signs Date Time Temp Pulse Resp B/P (MAP) Pulse Ox O2 Delivery O2 Flow Rate FiO2 05/11/17 06:45 95 16 Room Air 05/11/17 06:45 97.9 170/112 95 97.9 Disposition: ADMITTED INPATIENT Condition: Serious Scripts Nebulizer (Compact Compressor Nebulizer) 1 Each Each EA MC, #1 0 Refills Prov: Russell Means M.D. 05/11/17 Albuterol Sulfate* (ALBUTEROL SULFATE HHN*) 2.5 Mg/3 Ml Vial.neb 2.5 MG HHN Q4H Y for Shortness of Breath, #25 VIAL Prov: Russell Means M.D. 05/11/17 Albuterol Sulfate* (ALBUTEROL SULFATE MDI*) 8.5 Gm Hfa.aer.ad 2 PUFF INH Q4H Y for cough/wheezing, #1 EA 0 Refills Prov: Russell Means M.D. 05/11/17 Russell Means M.D. May 11, 2017 07:31
[2017-05-11 07:43] LABS: BASOPHILS % (AUTO) 0.7 % (0.0-2.0); EOSINOPHILS % (AUTO) 4.2 % (0.0-3.0); HEMATOCRIT 40.7 % (37.0-47.0); HEMOGLOBIN 13.4 G/DL (12.0-16.0); LYMPHOCYTES % (AUTO) 30.9 % (20.0-45.0); MEAN CORPUSCULAR VOLUME 91 FL (80-99); NEUTROPHILS % (AUTO) 58.2 % (45.0-75.0); PLATELET COUNT 409 K/UL (150-450); RED BLOOD COUNT 4.49 M/UL (4.20-5.40); RED CELL DISTRIBUTION WIDTH 11.3 % (11.6-14.8); WHITE BLOOD COUNT 9.3 K/UL (4.8-10.8)
[2017-05-11] MEDS: Ipratropium 0.02% Inh Soln 2.5ml UD HHN SCH ×2 (07:46→07:47)
[2017-05-11] MEDS: Albuterol ud Inhalation HHN SCH ×4 (07:46→09:30)
[2017-05-11 07:54] LABS: ANION GAP 5 mmol/L (5-15); BLOOD UREA NITROGEN 8 mg/dL (7-18); CALCIUM 9.1 MG/DL (8.5-10.1); CARBON DIOXIDE 31 MMOL/L (21-32); CHLORIDE 101 MMOL/L (98-107); CREATININE 0.8 MG/DL (0.55-1.30); POTASSIUM 3.4 MMOL/L (3.5-5.1); SODIUM 137 MMOL/L (136-145)
[2017-05-11 08:04] LABS: ALANINE AMINOTRANSFERASE 58 U/L (12-78); ALBUMIN/GLOBULIN RATIO 0.6 (1.0-2.7); ALKALINE PHOSPHATASE 193 U/L (46-116); ASPARTATE AMINO TRANSFERASE 65 U/L (15-37); BILIRUBIN,TOTAL 0.3 MG/DL (0.2-1.0)
[2017-05-11] MEDS ORDERED: PREDNISONE20 MG ORAL (09:11)
[2017-05-11] MEDS ORDERED: ALBUTEROL SULF8.5 GM INH (09:12)
[2017-05-11] MEDS ORDERED: COMPACT COMPRE1 EACH MC (09:12)
[2017-05-11] MEDS ORDERED: ALBUTEROL2.5 MG/3 M HHN (09:12)
[2017-05-11] MEDS ORDERED: Ketorolac 30mg Inj IV ONE (09:15)
[2017-05-11 09:29] LABS: APPEARANCE,URINE CLEAR; BILIRUBIN, URINE NEGATIVE (NEGATIVE); COLOR,URINE PALE YELLOW; GLUCOSE, URINE (UA) NEGATIVE (NEGATIVE); KETONES,URINE NEGATIVE (NEGATIVE); LEUKOCYTE ESTERASE ,URINE 2+ (NEGATIVE); NITRITE,URINE NEGATIVE (NEGATIVE); PH,URINE 7 (4.5-8.0); PROTEIN,URINE 1+ (NEGATIVE); UROBILINOGEN,URINE NORMAL MG/DL (0.0-1.0)
[2017-05-11] MEDS ORDERED: NOVOLIN 70100 UNIT/1 SUBQ (09:52)
[2017-05-11] MEDS ORDERED: cefTRIAXone 1 GM in NS 55 ML IVPB ONE (10:30)
--- NOTE | 2017-05-11 10:32 | Diagnostic Imaging Report ---
Indication: Dyspnea Comparison: None A single view chest radiograph was obtained. Findings: There is a hyperlucent focus in the right upper lobe suspicious for emphysema. This could be postinflammatory given asymmetry with the remainder of the lungs. This could be a bulla. The heart is mildly enlarged. The aorta is also ectatic. Bones are unremarkable. IMPRESSION: Hyperlucency noted focally in the right lung apex. Findings suspicious for a bulla or emphysematous changes. Small pneumothorax is possible although this is less likely given the visceral margin of the pleura is not visualized. Findings discussed with Dr. Means in emergency dept.
--- NOTE | 2017-05-11 11:37 | Diagnostic Imaging Report ---
Indication: Dyspnea Comparison: 05/11/2017 2 views of the chest obtained. Hyperlucency again demonstrated in the upper aspect of the right upper lobe near the apex. In addition, there is a right perihilar distortion which may be due to scarring. There is a abnormal hilar fullness. Underlying adenopathy or mass is not excluded. Further evaluation with CT of the chest is recommended. Bones are osteopenic. Mild degenerative changes of the thoracic spine noted. IMPRESSION: Emphysematous changes suspected in the apex of the right upper lobe. Abnormal fullness of the right hilum. Further evaluation recommended with contrast-enhanced CT of the chest.
[2017-05-11] MEDS ORDERED: Albuterol/Ipratropium 3ml neb HHN PRN (14:45)
[2017-05-11] MEDS ORDERED: Tylenol #3 tab (300mg/30mg) ORAL PRN (15:15)
[2017-05-11] MEDS ORDERED: Azithromycin 250mg tab ORAL ONE (16:00)
[2017-05-11] MEDS: traMADol 50mg tab ORAL PRN (16:11)
--- NOTE | 2017-05-11 16:14 | Diagnostic Imaging Report ---
Indication: Abnormal chest x-ray. Patient presents with shortness of breath and wheezing with a history of asthma Technique: Continuous helical transaxial imaging of the chest was obtained from the thoracic inlet to the upper abdomen after intravenous nonionic contrast administration. Coronal 2-D reformats were also obtained. Automatic Exposure Control was utilized. Total Dose length Product (DLP): 897.[address] Dose Index Volume (CTDIvol): 23.08 mGy Comparison: none Findings: There is an unusual low density bilobed mass in the right suprahilar region measuring 4.1 x 5.7 x 3.0 cm. Its possible the mass is cystic. The mass remains low density despite intravenous contrast administration. There is a small chance that the mass is vascular given a small linear apparent feeding vessel that extends from the right upper lobe into this structure. I would therefore obtained a multiphasic examination repeating the CT scan in a dynamic fashion with contrast administration (for example obtaining arterial, venous and delayed phases). This linear structure does not enhance and is similar in attenuation to the mass. The aorta and pulmonary artery, branches of the pulmonary artery and the pulmonary veins opacify as they should and are different in attenuation from this mass or the small linear feeding vessel. Despite these observations, the mass is not likely to be vascular. The mass may be cystic such as an esophageal duplication cyst or other congenital cystic lesions, bronchogenic cyst possibly.. Malignant neoplasm is not excluded. In addition the right upper lobe is abnormal with relative absence of bronchial structures, absence of vascularity and resultant hyperlucency. This suggests some form of bronchial atresia or failure of development and this finding in the right upper lobe may be associated with the aforementioned suprahilar mass. The remainder of the lungs are clear. The heart is unremarkable. There is coronary and aortic calcification present. Small hiatal hernia is present. The liver appears low in attenuation consistent with fatty infiltration. The gallbladder is unremarkable as visualized. IMPRESSION: Unusual low density right suprahilar mass measuring 4.1 x 5.7 x 3.0 cm, possibly cystic. Suspect a congenital mass such as esophageal duplication cyst, bronchogenic cyst. Etiology is uncertain. Given the small possibility that this is a varix or vascular structure, recommend dynamic contrast-enhanced CT chest. Correlate with any known history. Hyperlucent right upper lobe with possibility of both bronchial structures and vessels indicative of failure of development (atresia). No evidence of pneumonia or other acute findings. Fatty liver The CT scanner at [facility] is accredited by the [employer] and the scans are performed using dose optimization techniques as appropriate to a performed exam including Automatic Exposure control.
[2017-05-11] MEDS: Albuterol/Ipratropium 3ml neb HHN SCH ×3 (16:17→22:50)
[2017-05-11] MEDS ORDERED: NovoLOG Insulin Flexpen SUBQ SCH (16:30)
[2017-05-11] MEDS: Atenolol 25mg tab ORAL SCH (18:23)
[2017-05-11] MEDS ORDERED: Flu Vaccine Quadrivalent 0.5ml IM ONE (18:30)
--- NOTE | 2017-05-11 21:45 | Consultation ---
DATE OF CONSULTATION: 05/11/2017 INFECTIOUS DISEASES CONSULTATION PRIMARY ATTENDING PHYSICIAN: Omaira Santillan M.D. REASON FOR CONSULTATION: COPD exacerbation. HISTORY OF PRESENT ILLNESS: A 56-year-old, female with history of asthma, coming because of coughing, shortness of breath, and wheezing that started a couple of days ago. She cannot sleep at night, had voice changes, and have sore throat. First, the family members became sick complaining of generalized body aches. PAST MEDICAL HISTORY: Significant for asthma, COPD, diabetes mellitus, and hypertension. MEDICATIONS: Getting ceftriaxone in the ER, albuterol in the ER, magnesium sulfate, ipratropium, and methylprednisone one dose. ALLERGIES: No known drug allergies. SOCIAL HISTORY: She is single, has children. No history of alcohol, drug abuse, or smoking. REVIEW OF SYSTEMS: No fever. Some runny nose, muffled voice, sore throat, chest tightness, chest pain, wheezing, and body pain. PHYSICAL EXAMINATION: VITAL SIGNS: Temperature 97.7, pulse is 120, and blood pressure 172/94. GENERAL APPEARANCE: Seems to be well developed. HEAD AND NECK: No oral lesion. HEART: S1 and S2. Tachycardic. LUNGS: She has wheezing. ABDOMEN: Soft, obese, and nontender. EXTREMITIES: She has no edema. LABORATORY AND DIAGNOSTIC DATA: Sodium 137, potassium 2.4, chloride 101, bicarbonate 31, BUN 8, creatinine 0.8, and glucose 206. WBC 9.3, hemoglobin 13.4, hematocrit 40.7, and platelets are 409,000. UA showed wbc of 5 to 10. IMPRESSIONSS: Chronic obstructive pulmonary disease exacerbation, may be started after upper respiratory tract infection. Chest x-ray shows emphysematous changes in the right upper lobe. The patient has tachycardia, hypertension, and diabetes mellitus. RECOMMENDATION: We will start the patient on ceftriaxone and Zithromax. We will ask for influenza test. We will follow up the cultures. At the end of my exam, I thank Dr. Santillan for involving me in the care of this patient. Anderson Durham M.D. DR: Paco JOB#: [id number] CC:
[2017-05-12] VITALS: BP 106/57
[2017-05-12] MEDS: Albuterol/Ipratropium 3ml neb HHN SCH ×6 (03:00→23:00)
[2017-05-12 04:00] VITALS: BP 112/69
[2017-05-12] MEDS: Doxazosin 4mg tab ORAL SCH (07:00)
[2017-05-12] MEDS: Atenolol 25mg tab ORAL SCH ×2 (07:00→18:10)
[2017-05-12 08:23] VITALS: BP 119/68
[2017-05-12] MEDS: Azithromycin 250mg tab ORAL SCH ×2 (09:41→16:29)
[2017-05-12] MEDS: Lisinopril 20mg tab ORAL SCH (09:41)
[2017-05-12 11:31] VITALS: BP 113/63
[2017-05-12] MEDS: cefTRIAXone 1 GM in NS 55 ML IVPB SCH (11:44)
[2017-05-12] MEDS ORDERED: Bisacodyl EC 5mg tab ORAL ONE (12:45)
--- NOTE | 2017-05-12 12:45 | Infectious Diseases Prog Note ---
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 Subjective ROS Limited/Unobtainable: No Constitutional: Reports: no symptoms HEENT: Reports: other - hoarseness Respiratory: Reports: dry cough, other - wheezing Gastrointestinal/Abdominal: Reports: constipation Genitourinary: Reports: no symptoms Neurologic: Reports: no symptoms Endocrine: Reports: no symptoms Allergies: Coded Allergies: No Known Allergies (Unverified , 07/30/15) Objective Vital Signs Last 24 Hour Vital Signs Date Time Temp Pulse Resp B/P (MAP) Pulse Ox O2 Delivery O2 Flow Rate FiO2 05/12/17 11:31 98.0 88 19 113/63 96 05/12/17 11:27 85 16 99 Room Air 21 05/12/17 11:19 82 16 Room Air 21 05/12/17 09:42 83 119/68 05/12/17 09:41 119/68 05/12/17 08:23 98.4 83 18 119/68 97 05/12/17 07:59 89 16 99 Room Air 21 05/12/17 07:50 80 16 96 Room Air 21 05/12/17 07:48 80 16 Room Air 21 05/12/17 07:00 91 112/69 05/12/17 04:00 97.9 91 20 112/69 97 05/12/17 03:15 Room Air 05/12/17 03:15 Room Air 05/12/17 00:00 97.9 93 20 106/57 96 05/11/17 22:59 105 16 96 Room Air 21 05/11/17 22:50 21 05/11/17 22:49 105 16 96 Room Air 21 05/11/17 20:17 103 16 96 Room Air 21 05/11/17 20:00 98.2 104 20 133/70 96 05/11/17 19:46 21 05/11/17 19:46 103 16 Room Air 21 05/11/17 19:45 103 16 96 Room Air 21 05/11/17 18:23 110 157/94 05/11/17 17:10 97.7 05/11/17 17:08 110 157/94 05/11/17 16:17 21 05/11/17 16:17 110 16 100 Room Air 21 05/11/17 16:11 97.7 05/11/17 16:00 98.0 121 20 157/94 94 05/11/17 14:30 97.7 120 18 172/94 100 Room Air 05/11/17 14:00 104 20 161/80 98 Room Air 05/11/17 13:30 104 20 161/81 98 Room Air 05/11/17 12:50 104 20 158/103 98 Non-Rebreather Height (Feet): 5 Height (Inches): 1.00 Weight (Pounds): 176 General Appearance: no acute distress HEENT: mucous membranes moist Respiratory/Chest: inspiratory wheezing Cardiovascular: normal rate Abdomen: soft, non tender Extremities: no edema Neurologic/Psychiatric: alert, oriented x 3, responsive Microbiology Date/Time Source Procedure Growth Status 05/11/17 15:20 Nasal Aspirate Influenza Types A,B Antigen (BINDU) - Final Complete Current Medications Medications (Trade) Dose Ordered Sig/Ivana Route PRN Reason Start Time Stop Time Status Last Admin Dose Admin Acetaminophen (Tylenol) 650 mg Q4H PRN ORAL Mild Pain/Temp > 100.5 05/11/17 14:45 06/10/17 14:44 Acetaminophen/ Codeine Phosphate (Tylenol #3) 1 tab Q6H PRN ORAL PAIN SCALE (4-10) UNRELIEVED B 05/11/17 15:15 05/18/17 15:14 Albuterol/ Ipratropium (Albuterol/ Ipratropium) 3 ml Q4HRT HHN 05/11/17 15:00 05/16/17 14:59 05/12/17 11:24 Albuterol/ Ipratropium (Albuterol/ Ipratropium) 3 ml Q4HRT PRN HHN Shortness of Breath 05/11/17 14:45 05/16/17 14:44 Amlodipine Besylate (Norvasc) 10 mg DAILY ORAL 05/11/17 17:15 06/10/17 17:14 05/12/17 09:42 Atenolol (Tenormin) 25 mg BID@0700,1900 ORAL 05/11/17 19:00 06/10/17 18:59 05/11/17 18:23 Azithromycin (Zithromax) 250 mg DAILY@1600 ORAL 05/12/17 09:00 05/19/17 23:59 05/12/17 09:41 Ceftriaxone Sodium 1 gm/ Sodium Chloride 55 ml @ 110 mls/hr Q24H IVPB 05/12/17 11:00 05/19/17 23:59 05/12/17 11:44 Dextrose (Dextrose 50%) STAT PRN IV Hypoglycemia 05/11/17 15:15 06/10/17 15:14 Doxazosin Mesylate (Cardura) 4 mg DAILY@0700 ORAL 05/12/17 07:00 06/11/17 06:59 Gabapentin (Neurontin) 600 mg THREE TIMES A DAY ORAL 05/11/17 18:00 06/10/17 17:59 05/12/17 09:42 Hydrochlorothiazide (Hydrodiuril) 25 mg DAILY ORAL 05/12/17 09:00 06/11/17 08:59 05/12/17 09:41 Insulin Aspart (NovoLOG Mix 70/ 30) 15 units EVERY 12 HOURS SUBQ 05/11/17 17:00 06/10/17 16:59 05/12/17 09:44 Lisinopril (Prinivil) 40 mg DAILY ORAL 05/12/17 09:00 06/11/17 08:59 05/12/17 09:41 Pantoprazole (Protonix) 40 mg DAILY ORAL 05/12/17 09:00 06/11/17 08:59 05/12/17 09:41 Tramadol HCl (Ultram) 50 mg Q6H PRN ORAL For Pain 4-10 05/11/17 14:45 05/18/17 14:44 05/11/17 16:11 CORINNE GUILLERMO May 12, 2017 12:45
--- NOTE | 2017-05-12 13:35 | GI Initial Consult Note ---
History of Present Illness General Date patient seen: May 12, 2017 Time patient seen: 13:28 Reason for Hospitalization: Flu Like Symptoms Referring physician: YARIEL Cotto Reason for Consultation: CONSTIPATION Present Illness HPI 56-year-old female with history of asthma, htn diabetes p/w SOB for 7 days. Patient states SOB began when one week ago. SOB occurs both at rest and on exertion. + productive cough. Denies chest pain. Patient ran out of albuterol 4 days ago, no recent steroid use Pt states that this episode is similar to other episodes of asthma exacerbation. Denies fever, chills. Denies sick contacts or recent travel. Patient denies history of ICU admissions, intubations, or usage of BIPAP for asthma. Denies history of PE/DVT, no recent surgeries, prolonged immobilization, malignancy GI consulted for constipation. Pt seen, awake A&Ox4 NAD with no active s/sx of N/V/D. C/o of constipation, but had BM yesterday. In addition has complaint of abdominal fullness and bloating causing her to decrease her PO intake. Denies any ETOH/tobacco/drug use. Stated she had a colonoscopy before, but unsure of exact date possibly over 5 years ago. Presents today with elevated AST and Alk phosphatase. Home Meds Active Scripts Nebulizer (Compact Compressor Nebulizer) 1 Each Each, LUZ , #1 0 Refills Prov:Russell Means M.D. 05/11/17 Albuterol Sulfate* (ALBUTEROL SULFATE HHN*) 2.5 Mg/3 Ml Vial.neb, 2.5 MG HHN Q4H Y for Shortness of Breath, #25 VIAL Prov:Russell Means M.D. 05/11/17 Albuterol Sulfate* (ALBUTEROL SULFATE MDI*) 8.5 Gm Hfa.aer.ad, 2 PUFF INH Q4H Y for cough/wheezing, #1 EA 0 Refills Prov:Russell Means M.D. 05/11/17 Omeprazole (OMEPRAZOLE) 20 Mg Tablet.dr, 20 MG ORAL DAILY, #30 TAB Prov:Angelito Yanez 04/17/17 Tramadol Hcl* (ULTRAM*) 50 Mg Tablet, 50 MG ORAL Q6H Y for For Pain, #10 TAB 0 Refills Prov:JANINE HENDERSON P.ARoman 09/22/16 Reported Medications Hum Insulin Nph/Reg Insulin Hm (NOVOLIN 70-30 100 UNIT/ML VIAL) 100 Unit/1 Ml Vial, 10 SUBQ BEDTIME, VIAL 05/11/17 Hum Insulin Nph/Reg Insulin Hm (NOVOLIN 70-30 100 UNIT/ML VIAL) 100 Unit/1 Ml Vial, 15 UNITS SUBQ BEFORE BREAKFAST, VIAL 04/17/17 Lisinopril (LISINOPRIL*) 20 Mg Tablet, 40 MG ORAL DAILY, TAB 04/17/17 Hydrochlorothiazide* (HYDROCHLOROTHIAZIDE*) 25 Mg Tablet, 25 MG ORAL DAILY, TAB 04/17/17 Amlodipine Besylate* (AMLODIPINE BESYLATE*) 10 Mg Tablet, 10 MG ORAL DAILY, TAB 04/17/17 Doxazosin Mesylate* (CARDURA*) 4 Mg Tablet, 4 MG ORAL DAILY, TAB 12/14/15 Atenolol* (TENORMIN*) 25 Mg Tablet, 25 MG ORAL BID, TAB 12/14/15 Gabapentin* (GABAPENTIN*) 600 Mg Tablet, 600 MG ORAL THREE TIMES A DAY, TAB 07/30/15 Discontinued Reported Medications [insulin] No Conflict Check, SQ BID 07/30/15 Discontinued Scripts Prednisone* (PREDNISONE*) 20 Mg Tablet, 40 MG ORAL DAILY, #10 TAB 0 Refills Prov:Russell Means M.D. 05/11/17 Dicyclomine Hcl* (BENTYL*) 10 Mg Capsule, 10 MG ORAL FOUR TIMES A DAY, #14 CAP Prov:Angelito Yanez 04/17/17 Atenolol* (TENORMIN*) 25 Mg Tablet, 25 MG ORAL BID, #30 TAB Prov:VINNIE GREEN M.D. 01/25/17 Gabapentin* (GABAPENTIN*) 600 Mg Tablet, 600 MG ORAL THREE TIMES A DAY, #30 TAB Prov:VINNIE GREEN M.D. 01/25/17 Tramadol Hcl* (ULTRAM*) 50 Mg Tablet, 50 MG ORAL Q6H Y for For Pain, #30 TAB 0 Refills Prov:Angelito Yanez 12/23/16 Gabapentin* (GABAPENTIN*) 600 Mg Tablet, 600 MG ORAL THREE TIMES A DAY, #30 TAB Prov:VINNIE GREEN M.D. 12/01/16 Tramadol Hcl* (ULTRAM*) 50 Mg Tablet, 50 MG ORAL Q6H Y for For Pain, #30 TAB 0 Refills Prov:VINNIE GREEN M.D. 12/01/16 Cephalexin* (KEFLEX*) 500 Mg Capsule, 500 MG ORAL EVERY 6 HOURS, #28 CAP Prov:TERZIAN,JANINE P.A. 09/22/16 Gabapentin* (GABAPENTIN*) 600 Mg Tablet, 600 MG ORAL THREE TIMES A DAY, #30 TAB Prov:TERZIAN,JANINE P.A. 09/22/16 Gabapentin* (GABAPENTIN*) 300 Mg Capsule, 300 MG ORAL THREE TIMES A DAY, #30 CAP 0 Refills Prov:TERZIAN,JANINE P.A. 03/03/16 Acetaminophen* (TYLENOL EXTRA STRENGTH*) 500 Mg Tablet, 500 MG ORAL Q8H Y for Prn Headache/Temp > 101, #30 TAB 0 Refills Prov:TERZIAN,JANINE P.A. 03/03/16 Acetaminophen* (TYLENOL EXTRA STRENGTH*) 500 Mg Tablet, 500 MG ORAL Q8H Y for Prn Headache/Temp > 101, #30 TAB 0 Refills Prov:Belle Magana P.A. 12/30/15 Gabapentin* (GABAPENTIN*) 600 Mg Tablet, 600 MG ORAL THREE TIMES A DAY for 30 Days, TAB 1 Refill Prov:Belle Magana P.A. 12/30/15 Atenolol* (TENORMIN*) 25 Mg Tablet, 25 MG ORAL DAILY, #30 TAB Prov:Angelito Yanez 12/14/15 Ibuprofen* (MOTRIN*) 600 Mg Tablet, 600 MG ORAL THREE TIMES A DAY, #30 TAB Prov:Belle Magana P.A. 09/12/15 Ibuprofen* (MOTRIN*) 400 Mg Tablet, 400 MG ORAL Q8H, #15 TAB 0 Refills Prov:Issac Yap MD 07/30/15 Med list reviewed/reconciled: Yes Allergies: Coded Allergies: No Known Allergies (Unverified , 07/30/15) Patient History History Provided By: Patient, Medical Record PMH Narrative Past Medical History: see triage record Past Surgical History: none Pertinent Family History: none Reviewed Nursing Documentation: PMH: Agreed, PSxH: Agreed Nursing Documentation-PMH Past Medical History: No History, Except For Hx Hypertension: Yes Hx Diabetes: Yes Social History: Denies: smoking, alcohol use, drug use, other Review of Systems All Other Systems: negative except mentioned in HPI Physical Exam Vital Signs Date Time Temp Pulse Resp B/P (MAP) Pulse Ox O2 Delivery O2 Flow Rate FiO2 05/11/17 06:42 97.8 91 16 170/112 95 Room Air 97.9 05/11/17 07:35 21 Sp02 EP Interpretation: reviewed, normal General Appearance: well appearing, no apparent distress, alert, obese Head: normocephalic EENT: PERRL/EOMI, normal ENT inspection Neck: supple Respiratory: normal breath sounds, no respiratory distress Cardiovascular: normal rate Gastrointestinal: normal inspection, non tender, soft, normal bowel sounds, non -distended Rectal: deferred Genitourinary: no CVA tenderness Musculoskeletal: normal inspection, back normal Neurologic: normal inspection, alert, oriented x3, responsive Psychiatric: normal inspection, judgement/insight normal, memory normal Skin: normal inspection, normal color, no rash, warm/dry, palpation normal, well hydrated Lymphatic: normal inspection, no adenopathy Current Medications Current Medications Medications (Trade) Dose Ordered Sig/Ivana Route PRN Reason Start Time Stop Time Status Last Admin Dose Admin Acetaminophen (Tylenol) 650 mg Q4H PRN ORAL Mild Pain/Temp > 100.5 05/11/17 14:45 06/10/17 14:44 Acetaminophen/ Codeine Phosphate (Tylenol #3) 1 tab Q6H PRN ORAL PAIN SCALE (4-10) UNRELIEVED B 05/11/17 15:15 05/18/17 15:14 Albuterol/ Ipratropium (Albuterol/ Ipratropium) 3 ml Q4HRT HHN 05/11/17 15:00 05/16/17 14:59 05/12/17 11:24 Albuterol/ Ipratropium (Albuterol/ Ipratropium) 3 ml Q4HRT PRN HHN Shortness of Breath 05/11/17 14:45 05/16/17 14:44 Amlodipine Besylate (Norvasc) 10 mg DAILY ORAL 05/11/17 17:15 06/10/17 17:14 05/12/17 09:42 Atenolol (Tenormin) 25 mg BID@0700,1900 ORAL 05/11/17 19:00 06/10/17 18:59 05/11/17 18:23 Azithromycin (Zithromax) 250 mg DAILY@1600 ORAL 05/12/17 09:00 05/19/17 23:59 05/12/17 09:41 Ceftriaxone Sodium 1 gm/ Sodium Chloride 55 ml @ 110 mls/hr Q24H IVPB 05/12/17 11:00 05/19/17 23:59 05/12/17 11:44 Dextrose (Dextrose 50%) STAT PRN IV Hypoglycemia 05/11/17 15:15 06/10/17 15:14 Doxazosin Mesylate (Cardura) 4 mg DAILY@0700 ORAL 05/12/17 07:00 06/11/17 06:59 Gabapentin (Neurontin) 600 mg THREE TIMES A DAY ORAL 05/11/17 18:00 06/10/17 17:59 05/12/17 13:05 Hydrochlorothiazide (Hydrodiuril) 25 mg DAILY ORAL 05/12/17 09:00 06/11/17 08:59 05/12/17 09:41 Insulin Aspart (NovoLOG Mix 70/ 30) 15 units EVERY 12 HOURS SUBQ 05/11/17 17:00 06/10/17 16:59 05/12/17 09:44 Lisinopril (Prinivil) 40 mg DAILY ORAL 05/12/17 09:00 06/11/17 08:59 05/12/17 09:41 Pantoprazole (Protonix) 40 mg DAILY ORAL 05/12/17 09:00 06/11/17 08:59 05/12/17 09:41 Tramadol HCl (Ultram) 50 mg Q6H PRN ORAL For Pain 4-10 05/11/17 14:45 05/18/17 14:44 05/11/17 16:11 GI: Plan Problems: (1) Constipation (2) Diabetes mellitus (3) Fatty liver (4) Gastritis (5) Abdominal pain Plan CT chest reviewed >> fatty liver adv ADA diet start bowel regime >> colace + miralax, prn dulcolax low dose reglan TID H2B probiotics DM mgmt fu labs Discussed with Dr. Chan. Thank you for this patient referral, we will follow. Sparkle Knapp N.PRoman May 12, 2017 13:35
[2017-05-12] MEDS ORDERED: Simethicone 80mg tab ORAL PRN (13:45)
[2017-05-12 16:45] VITALS: BP 125/73
[2017-05-12] MEDS: Lactobacillus-GG tablet ORAL SCH (18:09)
[2017-05-12 20:00] VITALS: BP 118/69
--- NOTE | 2017-05-12 21:58 | General Progress Note ---
Assessment/Plan Problem List: (1) Diabetes mellitus ICD Codes: E11.9 - Type 2 diabetes mellitus without complications SNOMED: 03220715 (2) Hypertension ICD Codes: I10 - Essential (primary) hypertension SNOMED: 62435146 (3) Fatty liver ICD Codes: K76.0 - Fatty (change of) liver, not elsewhere classified SNOMED: 843248258 (4) Abdominal pain ICD Codes: R10.9 - Unspecified abdominal pain SNOMED: 78268880 Assessment/Plan increase insulin 70/30 to 15 units tid continue NISS Subjective ROS Limited/Unobtainable: Yes Allergies: Coded Allergies: No Known Allergies (Unverified , 07/30/15) Subjective events noted - interval notes reviewed Item Value Date Time Bedside Blood Glucose 310 mg/dl H 05/12/17 2046 Bedside Blood Glucose 263 mg/dl H 05/12/17 1630 Bedside Blood Glucose 234 mg/dl H 05/12/17 1130 Bedside Blood Glucose 412 mg/dl H 05/12/17 0944 Bedside Blood Glucose 412 mg/dl H 05/12/17 0617 Bedside Blood Glucose 593 mg/dl H 05/12/17 0053 Objective Last 24 Hour Vital Signs Date Time Temp Pulse Resp B/P (MAP) Pulse Ox O2 Delivery O2 Flow Rate FiO2 05/12/17 20:00 97.5 88 21 118/69 100 05/12/17 19:45 98 18 99 Room Air 21 05/12/17 19:33 100 20 97 Room Air 21 05/12/17 18:10 84 113/63 05/12/17 16:45 98.6 88 18 125/73 98 Room Air 05/12/17 15:48 84 16 99 Room Air 21 05/12/17 15:40 83 16 Room Air 21 05/12/17 11:31 98.0 88 19 113/63 96 05/12/17 11:27 85 16 99 Room Air 21 05/12/17 11:19 82 16 Room Air 21 05/12/17 09:42 83 119/68 05/12/17 09:41 119/68 05/12/17 08:23 98.4 83 18 119/68 97 05/12/17 07:59 89 16 99 Room Air 21 05/12/17 07:50 80 16 96 Room Air 21 05/12/17 07:48 80 16 Room Air 21 05/12/17 07:00 91 112/69 05/12/17 04:00 97.9 91 20 112/69 97 05/12/17 03:15 Room Air 05/12/17 03:15 Room Air 05/12/17 00:00 97.9 93 20 106/57 96 05/11/17 22:59 105 16 96 Room Air 21 05/11/17 22:50 21 05/11/17 22:49 105 16 96 Room Air 21 Intake and Output 05/11/17 05/12/17 19:00 07:00 Intake Total 875 ml 500 ml Balance 875 ml 500 ml Intake Oral 720 ml 500 ml IV Total 155 ml # Voids 1 3 Height (Feet): 5 Height (Inches): 1.00 Weight (Pounds): 176 General Appearance: no apparent distress EENT: pale conjunctivae Neck: normal alignment Cardiovascular: normal rate Respiratory/Chest: lungs clear Objective Current Medications Medications (Trade) Dose Ordered Sig/Ivana Route PRN Reason Start Time Stop Time Status Last Admin Dose Admin Acetaminophen (Tylenol) 650 mg Q4H PRN ORAL Mild Pain/Temp > 100.5 05/11/17 14:45 06/10/17 14:44 Acetaminophen/ Codeine Phosphate (Tylenol #3) 1 tab Q6H PRN ORAL PAIN SCALE (4-10) UNRELIEVED B 05/11/17 15:15 05/18/17 15:14 Albuterol/ Ipratropium (Albuterol/ Ipratropium) 3 ml Q4HRT HHN 05/11/17 15:00 05/16/17 14:59 05/12/17 19:35 Albuterol/ Ipratropium (Albuterol/ Ipratropium) 3 ml Q4HRT PRN HHN Shortness of Breath 05/11/17 14:45 05/16/17 14:44 Amlodipine Besylate (Norvasc) 10 mg DAILY ORAL 05/11/17 17:15 06/10/17 17:14 05/12/17 09:42 Atenolol (Tenormin) 25 mg BID@0700,1900 ORAL 05/11/17 19:00 06/10/17 18:59 05/11/17 18:23 Azithromycin (Zithromax) 250 mg DAILY@1600 ORAL 05/12/17 09:00 05/19/17 23:59 05/12/17 16:29 Ceftriaxone Sodium 1 gm/ Sodium Chloride 55 ml @ 110 mls/hr Q24H IVPB 05/12/17 11:00 05/19/17 23:59 05/12/17 11:44 Dextrose (Dextrose 50%) STAT PRN IV Hypoglycemia 05/11/17 15:15 06/10/17 15:14 Doxazosin Mesylate (Cardura) 4 mg DAILY@0700 ORAL 05/12/17 07:00 06/11/17 06:59 Gabapentin (Neurontin) 600 mg THREE TIMES A DAY ORAL 05/11/17 18:00 06/10/17 17:59 05/12/17 18:09 Hydrochlorothiazide (Hydrodiuril) 25 mg DAILY ORAL 05/12/17 09:00 06/11/17 08:59 05/12/17 09:41 Insulin Aspart (NovoLOG Mix 70/ 30) 15 units EVERY 12 HOURS SUBQ 05/11/17 17:00 06/10/17 16:59 05/12/17 20:46 Lactobacillus Acidophilus (Culturelle) 1 tab THREE TIMES A DAY ORAL 05/12/17 18:00 06/11/17 17:59 05/12/17 18:09 Lisinopril (Prinivil) 40 mg DAILY ORAL 05/12/17 09:00 06/11/17 08:59 05/12/17 09:41 Metoclopramide HCl (Reglan) 5 mg TID PRN ORAL Nausea & Vomiting 05/12/17 13:45 06/11/17 13:44 Pantoprazole (Protonix) 40 mg DAILY ORAL 05/12/17 09:00 06/11/17 08:59 05/12/17 09:41 Simethicone (Mylicon) 80 mg QID PRN ORAL GAS PAIN 05/12/17 13:45 06/11/17 13:44 Tramadol HCl (Ultram) 50 mg Q6H PRN ORAL For Pain 4-10 05/11/17 14:45 05/18/17 14:44 05/11/17 16:11 EMIR GLOVER May 12, 2017 21:58
--- NOTE | 2017-05-12 22:00 | Consultation ---
DATE OF CONSULTATION: 05/12/2017 PULMONARY CONSULTATION HISTORY OF PRESENT ILLNESS: This is a 56-year-old female with history of asthma, hypertension and diabetes, who came to the hospital with chest pain and shortness of breath. It is notable that she is saturating 96% room air right now and on my assessment, she is not tachypneic. She is complaining of midsternal chest pain. The patient reports she has recently run out of her albuterol. PAST HISTORY: Completely unremarkable except for history of previous tobacco usage, asthma/COPD. As discussed above, she also has diabetes mellitus and hypertension. REVIEW OF SYSTEMS: She admits to generalized body aches, insomnia, sore throat, and generalized discomfort. ALLERGIES: None. SOCIAL HISTORY: No history of alcohol or tobacco usage, although there is a history of tobacco use in the past. PHYSICAL EXAMINATION: GENERAL: Reveals a 56-year-old female. VITAL SIGNS: Blood pressure is 130/70, heart rate 84, respirations 18, she is afebrile and O2 saturation 99% on room air. HEENT: Unremarkable. LUNGS: Clear breath sounds bilaterally. ABDOMEN: Soft. NEUROLOGIC: Nonfocal. LABORATORY DATA: Lab testing is negative with normal CBC and BMP. Potassium 3.4. IMAGING STUDIES: The patient initially was found to have a lucency in the right apex on x-ray chest, however, CT chest has shown that she has a bilobed mass in the right suprahilar lesion, possibly cystic. The differential includes likely congenital cyst versus esophageal duplication cyst or bronchogenic cyst, appears benign and longstanding. IMPRESSION: 1. Chest pain. 2. Probable underlying asthma/chronic obstructive pulmonary disease. 3. Abnormal chest CT. DISCUSSION: At this point, it is my opinion that the patient can be discharged home and initiate outpatient workup by the primary care physician for this process. This abnormality may have been seen in the past and there may be a previous workup ordered as well. She can benefit from an MRI of chest; however, I will reiterate that at this time, the patient is completely asymptomatic and may be discharged home with outpatient follow up with her regular doctor or guest experience representative. Thank you. This will complete workup for her abnormal cystic structure on the chest. Jonathan Ortiz M.D. DR: LEOPOLDO JOB#: [id number] CC:
--- NOTE | 2017-05-13 01:45 | History and Physical Report ---
DATE OF ADMISSION: 05/11/2017 REASON FOR ADMISSION: Body pain and cold symptoms. HISTORY OF PRESENT ILLNESS: The patient also was weak and hoarse and cough productive for one week, history of asthma. She is admitted for asthma exacerbation. The patient also has myalgias all over and is also constipated and complains mild abdominal pain. Denies fever or chills. Denies orthopnea. The patient was also complaining of itching and rash. The patient is also diabetic and is also admitted for urinary tract infection. PAST MEDICAL HISTORY: Significant for the asthma, hypertension, neuropathy, NIDDM, GERD, and constipation. PAST SURGICAL HISTORY: Hysterectomy. SOCIAL HISTORY: History of smoking. No history of alcohol or illicit drugs. ALLERGIES: No known allergies. MEDICATIONS: Breathing treatment albuterol, atenolol, gabapentin, insulin, Lantus, lisinopril, Norvasc, omeprazole, and tramadol. REVIEW OF SYSTEMS: HEENT: Denies headaches. RESPIRATORY: Reports shortness of breath, cough, and wheezing for one week. Productive cough. CARDIOVASCULAR: Denies chest pain. GASTROINTESTINAL: Denies nausea, vomiting, or diarrhea. Does have abdominal pain and does complain of constipation. EXTREMITIES: Mild chronic pain syndrome, which is chronic. CENTRAL NERVOUS SYSTEM: No change in vision or speech pattern. PHYSICAL EXAMINATION: VITAL SIGNS: Temperature 98.6, pulse is 88, blood pressure 125/87. HEENT: PERRLA. NECK: Supple. No lymphadenopathy. CHEST: Mild wheezing bilaterally. CARDIOVASCULAR: Regular rate and rhythm. GASTROINTESTINAL: Soft, nontender, and nondistended. EXTREMITIES: No edema. NEUROLOGIC: Reflexes are equal on both sides. Oriented . LABORATORY DATA: WBC 9.3, hemoglobin 13.4, platelets of 409. Sodium 137, potassium 3.4, BUN of 8, creatinine 0.8, glucose of 206. ASSESSMENT AND PLAN: 1. Noninsulin-dependent diabetes mellitus. 2. Asthma exacerbation. 3. Urinary tract infection. 4. Abdominal pain and constipation. I have asked Dr. Woody as well as Dr. Dooley, Dr. Mccoy, and Dr. Underwood to see the patient for the above-mentioned diagnoses and treatment. Omaira Santillan M.D. DR: SHRADDHA JOB#: [id number] CC:
[2017-05-13] MEDS: Albuterol/Ipratropium 3ml neb HHN SCH ×6 (03:27→23:20)
[2017-05-13 04:00] VITALS: BP 112/61
[2017-05-13] MEDS: Atenolol 25mg tab ORAL SCH ×2 (06:11→20:30)
[2017-05-13] MEDS: Doxazosin 4mg tab ORAL SCH (06:11)
--- NOTE | 2017-05-13 07:30 | Consultation ---
DATE OF CONSULTATION: 05/12/2017 ]HEMATOLOGY/ONCOLOGY CONSULTATION CONSULTING PHYSICIAN: Rodolfo Ohara M.D. REQUESTING PHYSICIAN: Omaira Santillan M.D. 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 IDENTIFYING DATA: Dear Dr. Santillan, The patient is a pleasant 56-year-old female, poor historian, COPD, diabetes mellitus, asthma history, and hypertension, at this time presents to [facility] with COPD exacerbation and shortness of breath, sore throat, cannot sleep at night, has had voice changes, sore throat. Family members became . The patient has been complaining of itching. The patient currently is on Benadryl. Hematology/Oncology service was consulted for further evaluation of underlying treatment as well as underlying disorder. Potassium 3.4, glucose 206 . PAST MEDICAL HISTORY: Asthma, COPD, diabetes mellitus, and hypertension. MEDICATIONS: Albuterol, magnesium sulfate, Atrovent, methylprednisolone. ALLERGIES: No known drug allergies. SOCIAL HISTORY: Single. No alcohol, tobacco, or illicit drug use. REVIEW OF SYSTEMS: CONSTITUTIONAL: No fevers, chills, or night sweats. SKIN: No rashes, bumps, or itching. HEENT: No headache, hearing or vision changes. BREASTS: No lumps, pain, or discharge. PULMONARY: No cough, sputum, or shortness of breath. GASTROINTESTINAL: No nausea, vomiting, or diarrhea. GENITOURINARY: No dysuria, frequency, or urgency. MUSCULOSKELETAL: No joint swelling, muscle pain, or trauma. PHYSICAL EXAMINATION: VITAL SIGNS: Reviewed. GENERAL: No acute distress. PULMONARY: Decreased breath sounds. CARDIOVASCULAR: Regular rate. No S3 or S4. ABDOMEN: Soft, nontender, and nondistended. EXTREMITIES: No cyanosis, swelling, or edema. LABORATORY AND DIAGNOSTIC DATA: WBC 9.3, hemoglobin 13.4, and platelet count 409,000. Imaging has been reviewed. CT scan of the chest shows unusual lung mass, possibly cystic, suspected congenital mass, esophageal cyst, bronchogenic cyst, hyperlucent right upper lobe, possibility of bronchial structures and vessels atresia, mild fatty liver noted in the past. ASSESSMENT AND RECOMMENDATIONS: 1. 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 Currently, no evidence of malignancy. Continue to closely monitor and also for improvement. 2. Anticoagulation. The patient has been on anticoagulant before, currently been discontinued, in September she was on it, unsure why she is on it. We will obtain duplex of lower extremities. Consider Cardiology followup. 3. Asthma exacerbation. She has been on BiPAP before. 4. Fatty liver. She has been seen by GI Service. Continue low-dose Reglan. 5. Gastritis. 6. Constipation. Rodolfo Ohara M.D. DR: MARLON JOB#: [id number] CC:
[2017-05-13 08:00] VITALS: BP 116/64
--- NOTE | 2017-05-13 08:16 | Pulmonology Progress Note ---
Assessment/Plan Assessment/Plan IMPRESSION: 1. Chest pain. Etiology uncertain; likely musculoskeletal 2. Probable underlying asthma/chronic obstructive pulmonary disease. 3. Abnormal chest CT. DISCUSSION: At this point, it is my opinion that the patient can be discharged home and initiate outpatient workup by the primary care physician for this process. This abnormality may have been seen in the past and there may be a previous workup ordered as well. She can benefit from an MRI of chest; however, I will reiterate that at this time, the patient is completely asymptomatic and may be discharged home with outpatient follow up with her regular doctor or administrative assistant coordinator. Subjective Interval Events: No overnight events Constitutional: Reports: no symptoms HEENT: Repors: no symptoms Respiratory: Reports: dry cough, shortness of breath Cardiovascular: Reports: chest pain Gastrointestinal/Abdominal: Reports: no symptoms Allergies: Coded Allergies: No Known Allergies (Unverified , 07/30/15) Objective Last 24 Hour Vital Signs Date Time Temp Pulse Resp B/P (MAP) Pulse Ox O2 Delivery O2 Flow Rate FiO2 05/13/17 06:44 89 20 100 Room Air 21 05/13/17 06:35 89 20 100 Room Air 21 05/13/17 06:11 76 112/61 05/13/17 04:00 97.9 76 18 112/61 99 Room Air 05/13/17 03:27 Room Air 05/13/17 03:27 Room Air 05/12/17 23:09 Room Air 05/12/17 23:09 Room Air 05/12/17 20:00 97.5 88 21 118/69 100 05/12/17 19:45 98 18 99 Room Air 21 05/12/17 19:33 100 20 97 Room Air 21 05/12/17 18:10 84 113/63 05/12/17 16:45 98.6 88 18 125/73 98 Room Air 05/12/17 15:48 84 16 99 Room Air 21 05/12/17 15:40 83 16 Room Air 21 05/12/17 11:31 98.0 88 19 113/63 96 05/12/17 11:27 85 16 99 Room Air 21 05/12/17 11:19 82 16 Room Air 21 05/12/17 09:42 83 119/68 05/12/17 09:41 119/68 05/12/17 08:23 98.4 83 18 119/68 97 Intake and Output 05/12/17 05/13/17 19:00 07:00 Intake Total 1095 ml Balance 1095 ml Intake Oral 1040 ml IV Total 55 ml # Voids 6 1 General Appearance: no acute distress HEENT: normocephalic Respiratory/Chest: chest wall non-tender, lungs clear Cardiovascular: normal peripheral pulses, normal rate Microbiology Date/Time Source Procedure Growth Status 05/11/17 15:20 Nasal Aspirate Influenza Types A,B Antigen (BINDU) - Final Complete Current Medications Medications (Trade) Dose Ordered Sig/Ivana Route PRN Reason Start Time Stop Time Status Last Admin Dose Admin Acetaminophen (Tylenol) 650 mg Q4H PRN ORAL Mild Pain/Temp > 100.5 05/11/17 14:45 06/10/17 14:44 05/13/17 06:12 Acetaminophen/ Codeine Phosphate (Tylenol #3) 1 tab Q6H PRN ORAL PAIN SCALE (4-10) UNRELIEVED B 05/11/17 15:15 05/18/17 15:14 Albuterol/ Ipratropium (Albuterol/ Ipratropium) 3 ml Q4HRT HHN 05/11/17 15:00 05/16/17 14:59 05/13/17 06:34 Albuterol/ Ipratropium (Albuterol/ Ipratropium) 3 ml Q4HRT PRN HHN Shortness of Breath 05/11/17 14:45 05/16/17 14:44 Amlodipine Besylate (Norvasc) 10 mg DAILY ORAL 05/11/17 17:15 06/10/17 17:14 05/12/17 09:42 Atenolol (Tenormin) 25 mg BID@0700,1900 ORAL 05/11/17 19:00 06/10/17 18:59 05/13/17 06:11 Azithromycin (Zithromax) 250 mg DAILY@1600 ORAL 05/12/17 09:00 05/19/17 23:59 05/12/17 16:29 Ceftriaxone Sodium 1 gm/ Sodium Chloride 55 ml @ 110 mls/hr Q24H IVPB 05/12/17 11:00 05/19/17 23:59 05/12/17 11:44 Dextrose (Dextrose 50%) STAT PRN IV Hypoglycemia 05/11/17 15:15 06/10/17 15:14 Doxazosin Mesylate (Cardura) 4 mg DAILY@0700 ORAL 05/12/17 07:00 06/11/17 06:59 05/13/17 06:11 Gabapentin (Neurontin) 600 mg THREE TIMES A DAY ORAL 05/11/17 18:00 06/10/17 17:59 05/12/17 18:09 Hydrochlorothiazide (Hydrodiuril) 25 mg DAILY ORAL 05/12/17 09:00 06/11/17 08:59 05/12/17 09:41 Insulin Aspart (NovoLOG Mix 70/ 30) 15 units BEFORE MEALS SUBQ 05/13/17 06:30 06/10/17 16:59 Lactobacillus Acidophilus (Culturelle) 1 tab THREE TIMES A DAY ORAL 05/12/17 18:00 06/11/17 17:59 05/12/17 18:09 Lisinopril (Prinivil) 40 mg DAILY ORAL 05/12/17 09:00 06/11/17 08:59 05/12/17 09:41 Metoclopramide HCl (Reglan) 5 mg TID PRN ORAL Nausea & Vomiting 05/12/17 13:45 06/11/17 13:44 Pantoprazole (Protonix) 40 mg DAILY ORAL 05/12/17 09:00 06/11/17 08:59 05/12/17 09:41 Simethicone (Mylicon) 80 mg QID PRN ORAL GAS PAIN 05/12/17 13:45 06/11/17 13:44 Tramadol HCl (Ultram) 50 mg Q6H PRN ORAL For Pain 4-10 05/11/17 14:45 05/18/17 14:44 05/11/17 16:11 Jonathan Ortiz MD May 13, 2017 08:16
[2017-05-13 08:26] LABS: BASOPHILS % (AUTO) 0.8 % (0.0-2.0); EOSINOPHILS % (AUTO) 4.5 % (0.0-3.0); HEMATOCRIT 32.4 % (37.0-47.0); HEMOGLOBIN 10.9 G/DL (12.0-16.0); LYMPHOCYTES % (AUTO) 23.2 % (20.0-45.0); MEAN CORPUSCULAR VOLUME 91 FL (80-99); MONOCYTES % (AUTO) 5.4 % (1.0-10.0); NEUTROPHILS % (AUTO) 66.1 % (45.0-75.0); PLATELET COUNT 350 K/UL (150-450); RED BLOOD COUNT 3.56 M/UL (4.20-5.40); RED CELL DISTRIBUTION WIDTH 11.2 % (11.6-14.8); WHITE BLOOD COUNT 11.7 K/UL (4.8-10.8)
[2017-05-13 09:13] LABS: ANION GAP 4 mmol/L (5-15); BLOOD UREA NITROGEN 21 mg/dL (7-18); CALCIUM 8.8 MG/DL (8.5-10.1); CARBON DIOXIDE 32 MMOL/L (21-32); CHLORIDE 103 MMOL/L (98-107); CREATININE 0.8 MG/DL (0.55-1.30); POTASSIUM 3.6 MMOL/L (3.5-5.1); SODIUM 139 MMOL/L (136-145)
[2017-05-13] MEDS: Lisinopril 20mg tab ORAL SCH (09:41)
[2017-05-13] MEDS: Lactobacillus-GG tablet ORAL SCH ×3 (09:41→17:41)
--- NOTE | 2017-05-13 10:59 | GI Progress Note ---
Assessment/Plan Problems: (1) Abdominal pain ICD Codes: R10.9 - Unspecified abdominal pain SNOMED: 09710891 (2) Fatty liver ICD Codes: K76.0 - Fatty (change of) liver, not elsewhere classified SNOMED: 594941328 (3) Constipation ICD Codes: K59.00 - Constipation, unspecified SNOMED: 26103078 Status: stable Status Narrative Discussed with Dr. Chan. Assessment/Plan CT chest reviewed >> fatty liver adv ADA diet bowel regime >> colace + miralax, prn dulcolax low dose reglan TID H2B probiotics DM mgmt fu labs Subjective Subjective had small Bm yesterday abdomen less distended ambulating Objective Last 24 Hour Vital Signs Date Time Temp Pulse Resp B/P (MAP) Pulse Ox O2 Delivery O2 Flow Rate FiO2 05/13/17 09:41 71 116/64 05/13/17 09:41 116/64 05/13/17 08:00 97.3 71 20 116/64 100 05/13/17 06:44 89 20 100 Room Air 21 05/13/17 06:35 89 20 100 Room Air 21 05/13/17 06:11 76 112/61 05/13/17 04:00 97.9 76 18 112/61 99 Room Air 05/13/17 03:27 Room Air 05/13/17 03:27 Room Air 05/12/17 23:09 Room Air 05/12/17 23:09 Room Air 05/12/17 20:00 97.5 88 21 118/69 100 05/12/17 19:45 98 18 99 Room Air 21 05/12/17 19:33 100 20 97 Room Air 21 05/12/17 18:10 84 113/63 05/12/17 16:45 98.6 88 18 125/73 98 Room Air 05/12/17 15:48 84 16 99 Room Air 21 05/12/17 15:40 83 16 Room Air 21 05/12/17 11:31 98.0 88 19 113/63 96 05/12/17 11:27 85 16 99 Room Air 21 05/12/17 11:19 82 16 Room Air 21 Intake and Output 05/12/17 05/13/17 19:00 07:00 Intake Total 1095 ml Balance 1095 ml Intake Oral 1040 ml IV Total 55 ml # Voids 6 1 Laboratory Tests Test 05/13/17 07:55 White Blood Count 11.7 K/UL (4.8-10.8) H Red Blood Count 3.56 M/UL (4.20-5.40) L Hemoglobin 10.9 G/DL (12.0-16.0) L Hematocrit 32.4 % (37.0-47.0) L Mean Corpuscular Volume 91 FL (80-99) Mean Corpuscular Hemoglobin 30.5 PG (27.0-31.0) Mean Corpuscular Hemoglobin Concent 33.5 G/DL (32.0-36.0) Red Cell Distribution Width 11.2 % (11.6-14.8) L Platelet Count 350 K/UL (150-450) Mean Platelet Volume 6.2 FL (6.5-10.1) L Neutrophils (%) (Auto) 66.1 % (45.0-75.0) Lymphocytes (%) (Auto) 23.2 % (20.0-45.0) Monocytes (%) (Auto) 5.4 % (1.0-10.0) Eosinophils (%) (Auto) 4.5 % (0.0-3.0) H Basophils (%) (Auto) 0.8 % (0.0-2.0) Sodium Level 139 MMOL/L (136-145) Potassium Level 3.6 MMOL/L (3.5-5.1) Chloride Level 103 MMOL/L (98-107) Carbon Dioxide Level 32 MMOL/L (21-32) Anion Gap 4 mmol/L (5-15) L Blood Urea Nitrogen 21 mg/dL (7-18) H Creatinine 0.8 MG/DL (0.55-1.30) Estimat Glomerular Filtration Rate > 60 mL/min (>60) Glucose Level 103 MG/DL (74-106) Calcium Level 8.8 MG/DL (8.5-10.1) Height (Feet): 5 Height (Inches): 1.00 Weight (Pounds): 176 General Appearance: WD/WN, no apparent distress, alert, obese Cardiovascular: normal rate Respiratory/Chest: normal breath sounds, no respiratory distress Abdominal Exam: normal bowel sounds, non tender, soft Extremities: normal range of motion, non-tender Sparkle Knapp N.P. May 13, 2017 10:59
[2017-05-13] MEDS: cefTRIAXone 1 GM in NS 55 ML IVPB SCH (11:19)
[2017-05-13 12:00] VITALS: BP 103/62
--- NOTE | 2017-05-13 14:05 | Infectious Diseases Prog Note ---
Assessment/Plan Assessment/Plan A; COPD exacerbation Laryngitis Congenital lung mass Fatty liver Constipation P; Continue Ceftriaxone & Zithromax Subjective ROS Limited/Unobtainable: No Constitutional: Reports: no symptoms HEENT: Reports: other - hoarseness of voice Respiratory: Reports: productive cough Genitourinary: Reports: no symptoms Allergies: Coded Allergies: No Known Allergies (Unverified , 07/30/15) Objective Vital Signs Last 24 Hour Vital Signs Date Time Temp Pulse Resp B/P (MAP) Pulse Ox O2 Delivery O2 Flow Rate FiO2 05/13/17 11:23 73 20 100 Room Air 21 05/13/17 11:14 70 20 98 Room Air 21 05/13/17 09:41 71 116/64 05/13/17 09:41 116/64 05/13/17 08:00 97.3 71 20 116/64 100 05/13/17 06:44 89 20 100 Room Air 21 05/13/17 06:35 89 20 100 Room Air 21 05/13/17 06:11 76 112/61 05/13/17 04:00 97.9 76 18 112/61 99 Room Air 05/13/17 03:27 Room Air 05/13/17 03:27 Room Air 05/12/17 23:09 Room Air 05/12/17 23:09 Room Air 05/12/17 20:00 97.5 88 21 118/69 100 05/12/17 19:45 98 18 99 Room Air 05/12/17 19:33 100 20 97 Room Air 21 05/12/17 18:10 84 113/63 05/12/17 16:45 98.6 88 18 125/73 98 Room Air 05/12/17 15:48 84 16 99 Room Air 05/12/17 15:40 83 16 Room Air 21 Height (Feet): 5 Height (Inches): 1.00 Weight (Pounds): 176 General Appearance: no acute distress HEENT: mucous membranes moist Respiratory/Chest: expiratory wheezing Cardiovascular: normal rate Abdomen: soft, non tender Extremities: no edema Neurologic/Psychiatric: alert, oriented x 3, responsive Microbiology Date/Time Source Procedure Growth Status 05/11/17 15:20 Nasal Aspirate Influenza Types A,B Antigen (BINDU) - Final Complete Laboratory Tests Test 05/13/17 07:55 White Blood Count 11.7 K/UL (4.8-10.8) H Red Blood Count 3.56 M/UL (4.20-5.40) L Hemoglobin 10.9 G/DL (12.0-16.0) L Hematocrit 32.4 % (37.0-47.0) L Mean Corpuscular Volume 91 FL (80-99) Mean Corpuscular Hemoglobin 30.5 PG (27.0-31.0) Mean Corpuscular Hemoglobin Concent 33.5 G/DL (32.0-36.0) Red Cell Distribution Width 11.2 % (11.6-14.8) L Platelet Count 350 K/UL (150-450) Mean Platelet Volume 6.2 FL (6.5-10.1) L Neutrophils (%) (Auto) 66.1 % (45.0-75.0) Lymphocytes (%) (Auto) 23.2 % (20.0-45.0) Monocytes (%) (Auto) 5.4 % (1.0-10.0) Eosinophils (%) (Auto) 4.5 % (0.0-3.0) H Basophils (%) (Auto) 0.8 % (0.0-2.0) Sodium Level 139 MMOL/L (136-145) Potassium Level 3.6 MMOL/L (3.5-5.1) Chloride Level 103 MMOL/L (98-107) Carbon Dioxide Level 32 MMOL/L (21-32) Anion Gap 4 mmol/L (5-15) L Blood Urea Nitrogen 21 mg/dL (7-18) H Creatinine 0.8 MG/DL (0.55-1.30) Estimat Glomerular Filtration Rate > 60 mL/min (>60) Glucose Level 103 MG/DL (74-106) Calcium Level 8.8 MG/DL (8.5-10.1) Current Medications Medications (Trade) Dose Ordered Sig/Ivana Route PRN Reason Start Time Stop Time Status Last Admin Dose Admin Acetaminophen (Tylenol) 650 mg Q4H PRN ORAL Mild Pain/Temp > 100.5 05/11/17 14:45 06/10/17 14:44 05/13/17 06:12 Acetaminophen/ Codeine Phosphate (Tylenol #3) 1 tab Q6H PRN ORAL PAIN SCALE (4-10) UNRELIEVED B 05/11/17 15:15 05/18/17 15:14 Albuterol/ Ipratropium (Albuterol/ Ipratropium) 3 ml Q4HRT HHN 05/11/17 15:00 05/16/17 14:59 05/13/17 11:14 Albuterol/ Ipratropium (Albuterol/ Ipratropium) 3 ml Q4HRT PRN HHN Shortness of Breath 05/11/17 14:45 05/16/17 14:44 Amlodipine Besylate (Norvasc) 10 mg DAILY ORAL 05/11/17 17:15 06/10/17 17:14 05/13/17 09:41 Atenolol (Tenormin) 25 mg BID@0700,1900 ORAL 05/11/17 19:00 06/10/17 18:59 05/13/17 06:11 Azithromycin (Zithromax) 250 mg DAILY@1600 ORAL 05/12/17 09:00 05/19/17 23:59 05/12/17 16:29 Ceftriaxone Sodium 1 gm/ Sodium Chloride 55 ml @ 110 mls/hr Q24H IVPB 05/12/17 11:00 05/19/17 23:59 05/13/17 11:19 Dextrose (Dextrose 50%) STAT PRN IV Hypoglycemia 05/11/17 15:15 06/10/17 15:14 Doxazosin Mesylate (Cardura) 4 mg DAILY@0700 ORAL 05/12/17 07:00 06/11/17 06:59 05/13/17 06:11 Gabapentin (Neurontin) 600 mg THREE TIMES A DAY ORAL 05/11/17 18:00 06/10/17 17:59 05/13/17 13:02 Hydrochlorothiazide (Hydrodiuril) 25 mg DAILY ORAL 05/12/17 09:00 06/11/17 08:59 05/13/17 09:41 Insulin Aspart (NovoLOG Mix 70/ 30) 15 units BEFORE MEALS SUBQ 05/13/17 06:30 06/10/17 16:59 05/13/17 11:30 Lactobacillus Acidophilus (Culturelle) 1 tab THREE TIMES A DAY ORAL 05/12/17 18:00 06/11/17 17:59 05/13/17 13:02 Lisinopril (Prinivil) 40 mg DAILY ORAL 05/12/17 09:00 06/11/17 08:59 05/13/17 09:41 Metoclopramide HCl (Reglan) 5 mg TID PRN ORAL Nausea & Vomiting 05/12/17 13:45 06/11/17 13:44 Pantoprazole (Protonix) 40 mg DAILY ORAL 05/12/17 09:00 06/11/17 08:59 05/13/17 09:41 Simethicone (Mylicon) 80 mg QID PRN ORAL GAS PAIN 05/12/17 13:45 06/11/17 13:44 Tramadol HCl (Ultram) 50 mg Q6H PRN ORAL For Pain 4-10 05/11/17 14:45 05/18/17 14:44 05/11/17 16:11 CORINNE GUILLERMO May 13, 2017 14:05
[2017-05-13] MEDS ORDERED: NS 500ML ONE (15:45)
[2017-05-13] MEDS ORDERED: Tubing IV Secondary IV ONE (15:45)
[2017-05-13 16:00] VITALS: BP 114/68
[2017-05-13] MEDS: Azithromycin 250mg tab ORAL SCH (16:00)
[2017-05-13 20:00] VITALS: BP 131/107
--- NOTE | 2017-05-13 21:22 | General Progress Note ---
Assessment/Plan Problem List: (1) Neuropathy ICD Codes: G62.9 - Polyneuropathy, unspecified SNOMED: 629082307 (2) Low back pain ICD Codes: M54.5 - Low back pain SNOMED: 602949120 (3) Asthma exacerbation ICD Codes: J45.901 - Unspecified asthma with (acute) exacerbation SNOMED: 133307553 (4) Diabetes mellitus ICD Codes: E11.9 - Type 2 diabetes mellitus without complications SNOMED: 22073720 (5) Gastritis ICD Codes: K29.70 - Gastritis, unspecified, without bleeding SNOMED: 8159354 (6) Hypertension ICD Codes: I10 - Essential (primary) hypertension SNOMED: 42141472 (7) Abdominal pain ICD Codes: R10.9 - Unspecified abdominal pain SNOMED: 83060070 Status: progressing Assessment/Plan afebrile vitals stable asthma exacerbation is improving dm htn gerd reviewed chart and labs and meds Subjective ROS Limited/Unobtainable: Yes Allergies: Coded Allergies: No Known Allergies (Unverified , 07/30/15) Objective Last 24 Hour Vital Signs Date Time Temp Pulse Resp B/P (MAP) Pulse Ox O2 Delivery O2 Flow Rate FiO2 05/13/17 20:30 79 131/107 05/13/17 20:00 97.7 79 19 131/107 100 Room Air 05/13/17 19:45 102 20 96 Room Air 21 05/13/17 19:30 98 20 92 Room Air 21 05/13/17 16:00 98.2 77 20 114/68 100 05/13/17 15:26 88 20 100 Room Air 21 05/13/17 15:18 88 20 97 Room Air 21 05/13/17 12:00 97.3 82 20 103/62 99 05/13/17 11:23 73 20 100 Room Air 21 05/13/17 11:14 70 20 98 Room Air 21 05/13/17 09:41 71 116/64 05/13/17 09:41 116/64 05/13/17 08:00 97.3 71 20 116/64 100 05/13/17 06:44 89 20 100 Room Air 21 05/13/17 06:35 89 20 100 Room Air 21 05/13/17 06:11 76 112/61 05/13/17 04:00 97.9 76 18 112/61 99 Room Air 05/13/17 03:27 Room Air 05/13/17 03:27 Room Air 05/12/17 23:09 Room Air 05/12/17 23:09 Room Air Intake and Output 05/12/17 05/13/17 19:00 07:00 Intake Total 1095 ml Balance 1095 ml Intake Oral 1040 ml IV Total 55 ml # Voids 6 1 Laboratory Tests 05/13/17 07:55: White Blood Count 11.7H, Red Blood Count 3.56L, Hemoglobin 10.9L, Hematocrit 32.4L, Mean Corpuscular Volume 91, Mean Corpuscular Hemoglobin 30.5, Mean Corpuscular Hemoglobin Concent 33.5, Red Cell Distribution Width 11.2L, Platelet Count 350, Mean Platelet Volume 6.2L, Neutrophils (%) (Auto) 66.1, Lymphocytes (%) (Auto) 23.2, Monocytes (%) (Auto) 5.4, Eosinophils (%) (Auto) 4.5H, Basophils (%) (Auto) 0.8, Sodium Level 139, Potassium Level 3.6, Chloride Level 103, Carbon Dioxide Level 32, Anion Gap 4L, Blood Urea Nitrogen 21H, Creatinine 0.8, Estimat Glomerular Filtration Rate > 60, Glucose Level 103, Calcium Level 8.8 Height (Feet): 5 Height (Inches): 1.00 Weight (Pounds): 176 Cardiovascular: normal rate Abdomen: soft Omaira Santillan MD May 13, 2017 21:22
[2017-05-13] MEDS: traMADol 50mg tab ORAL PRN (21:28)
--- NOTE | 2017-05-14 00:53 | General Progress Note ---
Assessment/Plan Assessment/Plan 1. 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 --> Currently, no evidence of malignancy. --> Continue to closely monitor and also for improvement. 2. Anticoagulation. --> The patient has been on anticoagulant before, currently been discontinued, in September she was on it, unsure why she is on it. --> We will obtain duplex of lower extremities. --> Consider Cardiology followup. 3. Asthma exacerbation. She has been on BiPAP before. 4. Fatty liver. --> She has been seen by GI Service. --> Continue low-dose Reglan. 5. Gastritis. 6. Constipation. Subjective Date patient seen: May 13, 2017 Constitutional: Denies: no symptoms, chills, diaphoresis, fever, malaise, weakness, other HEENT: Denies: no symptoms, eye pain, blurred vision, tearing, double vision, ear pain, ear discharge, nose pain, nose congestion, throat pain, throat swelling, mouth pain, mouth swelling, other Cardiovascular: Denies: no symptoms, chest pain, edema, irregular heart rate, lightheadedness, palpitations, syncope, other Respiratory: Denies: no symptoms, cough, orthopnea, shortness of breath, SOB with excertion, SOB at rest, sputum, stridor, wheezing, other Gastrointestinal/Abdominal: Denies: no symptoms, abdomen distended, abdominal pain, black stools, tarry stools, blood in stool, constipated, diarrhea, difficulty swallowing, nausea, poor appetite, poor fluid intake, rectal bleeding , vomiting, other Genitourinary: Denies: no symptoms, burning, discharge, frequency, flank pain, hematuria, incontinence, pain, urgency, other Neurologic/Psychiatric: Denies: no symptoms, anxiety, depressed, emotional problems, headache, numbness, paresthesia, pre-existing deficit, seizure, tingling, tremors, weakness, other Allergies: Coded Allergies: No Known Allergies (Unverified , 07/30/15) Subjective No fever or chills. No active bleeding. Objective Last 24 Hour Vital Signs Date Time Temp Pulse Resp B/P (MAP) Pulse Ox O2 Delivery O2 Flow Rate FiO2 05/13/17 23:21 96 20 98 Room Air 21 05/13/17 23:21 94 20 95 Room Air 21 05/13/17 20:30 79 131/107 05/13/17 20:00 97.7 79 19 131/107 100 Room Air 05/13/17 19:45 102 20 96 Room Air 21 05/13/17 19:30 98 20 92 Room Air 21 05/13/17 16:00 98.2 77 20 114/68 100 05/13/17 15:26 88 20 100 Room Air 21 05/13/17 15:18 88 20 97 Room Air 21 05/13/17 12:00 97.3 82 20 103/62 99 05/13/17 11:23 73 20 100 Room Air 21 05/13/17 11:14 70 20 98 Room Air 21 05/13/17 09:41 71 116/64 05/13/17 09:41 116/64 05/13/17 08:00 97.3 71 20 116/64 100 05/13/17 06:44 89 20 100 Room Air 21 05/13/17 06:35 89 20 100 Room Air 21 05/13/17 06:11 76 112/61 05/13/17 04:00 97.9 76 18 112/61 99 Room Air 05/13/17 03:27 Room Air 05/13/17 03:27 Room Air Intake and Output 05/13/17 05/14/17 19:00 07:00 Intake Total 440 ml Balance 440 ml Intake Oral 440 ml # Voids 4 Laboratory Tests 05/13/17 07:55: White Blood Count 11.7H, Red Blood Count 3.56L, Hemoglobin 10.9L, Hematocrit 32.4L, Mean Corpuscular Volume 91, Mean Corpuscular Hemoglobin 30.5, Mean Corpuscular Hemoglobin Concent 33.5, Red Cell Distribution Width 11.2L, Platelet Count 350, Mean Platelet Volume 6.2L, Neutrophils (%) (Auto) 66.1, Lymphocytes (%) (Auto) 23.2, Monocytes (%) (Auto) 5.4, Eosinophils (%) (Auto) 4.5H, Basophils (%) (Auto) 0.8, Sodium Level 139, Potassium Level 3.6, Chloride Level 103, Carbon Dioxide Level 32, Anion Gap 4L, Blood Urea Nitrogen 21H, Creatinine 0.8, Estimat Glomerular Filtration Rate > 60, Glucose Level 103, Calcium Level 8.8 Height (Feet): 5 Height (Inches): 1.00 Weight (Pounds): 176 Respiratory/Chest: decreased breath sounds Abdomen: soft Edema: trace edema Skin: warm/dry Rodolfo Ohara May 14, 2017 00:53
[2017-05-14] MEDS: Albuterol/Ipratropium 3ml neb HHN SCH ×4 (03:50→14:37)
[2017-05-14 04:00] VITALS: BP 119/66
[2017-05-14] MEDS: Doxazosin 4mg tab ORAL SCH (06:20)
[2017-05-14] MEDS: Atenolol 25mg tab ORAL SCH (06:20)
[2017-05-14 07:13] LABS: BASOPHILS % (AUTO) 0.8 % (0.0-2.0); EOSINOPHILS % (AUTO) 4.9 % (0.0-3.0); HEMOGLOBIN 10.5 G/DL (12.0-16.0); LYMPHOCYTES % (AUTO) 29.8 % (20.0-45.0); MEAN CORPUSCULAR VOLUME 92 FL (80-99); MONOCYTES % (AUTO) 6.3 % (1.0-10.0); NEUTROPHILS % (AUTO) 58.2 % (45.0-75.0); PLATELET COUNT 337 K/UL (150-450); RED BLOOD COUNT 3.47 M/UL (4.20-5.40); RED CELL DISTRIBUTION WIDTH 11.6 % (11.6-14.8); WHITE BLOOD COUNT 8.7 K/UL (4.8-10.8)
[2017-05-14 07:27] LABS: ANION GAP 4 mmol/L (5-15); BLOOD UREA NITROGEN 19 mg/dL (7-18); CALCIUM 8.5 MG/DL (8.5-10.1); CARBON DIOXIDE 32 MMOL/L (21-32); CHLORIDE 105 MMOL/L (98-107); CREATININE 0.9 MG/DL (0.55-1.30); POTASSIUM 3.3 MMOL/L (3.5-5.1); SODIUM 141 MMOL/L (136-145)
[2017-05-14 08:00] VITALS: BP 113/67
--- NOTE | 2017-05-14 08:34 | Pulmonology Progress Note ---
Assessment/Plan Assessment/Plan IMPRESSION: 1. Chest pain. Etiology uncertain; likely musculoskeletal 2. Probable underlying asthma/chronic obstructive pulmonary disease. 3. Abnormal chest CT. DISCUSSION: The patient can be discharged home and initiate outpatient workup by the primary care physician for this process. The chest CT abnormality may have been seen in the past and there may be a previous workup ordered as well. Subjective Interval Events: saturating well on RA Constitutional: Reports: no symptoms HEENT: Repors: no symptoms Respiratory: Reports: no symptoms Cardiovascular: Reports: no symptoms Gastrointestinal/Abdominal: Reports: no symptoms Allergies: Coded Allergies: No Known Allergies (Unverified , 07/30/15) Objective Last 24 Hour Vital Signs Date Time Temp Pulse Resp B/P (MAP) Pulse Ox O2 Delivery O2 Flow Rate FiO2 05/14/17 07:39 89 20 99 Room Air 21 05/14/17 07:33 88 20 98 Room Air 21 05/14/17 06:20 82 119/66 05/14/17 04:00 98.1 82 20 119/66 94 Room Air 05/14/17 03:50 Room Air 05/14/17 03:50 Room Air 05/13/17 23:21 96 20 98 Room Air 21 05/13/17 23:21 94 20 95 Room Air 21 05/13/17 20:30 79 131/107 05/13/17 20:00 Room Air 05/13/17 20:00 97.7 79 19 131/107 100 Room Air 05/13/17 19:45 102 20 96 Room Air 21 05/13/17 19:30 98 20 92 Room Air 21 05/13/17 16:00 98.2 77 20 114/68 100 05/13/17 15:26 88 20 100 Room Air 21 05/13/17 15:18 88 20 97 Room Air 21 05/13/17 12:00 97.3 82 20 103/62 99 05/13/17 11:23 73 20 100 Room Air 21 05/13/17 11:14 70 20 98 Room Air 21 05/13/17 09:41 71 116/64 05/13/17 09:41 116/64 Intake and Output 05/13/17 05/14/17 19:00 07:00 Intake Total 440 ml 480 ml Balance 440 ml 480 ml Intake Oral 440 ml 480 ml # Voids 4 3 General Appearance: no acute distress HEENT: normocephalic Respiratory/Chest: chest wall non-tender, lungs clear Cardiovascular: normal peripheral pulses, normal rate Abdomen: normal bowel sounds, soft, non tender Microbiology Date/Time Source Procedure Growth Status 05/11/17 15:20 Nasal Aspirate Influenza Types A,B Antigen (BNIDU) - Final Complete Laboratory Tests 05/14/17 05:35: White Blood Count 8.7, Red Blood Count 3.47L, Hemoglobin 10.5L, Hematocrit 32.0L , Mean Corpuscular Volume 92, Mean Corpuscular Hemoglobin 30.4, Mean Corpuscular Hemoglobin Concent 32.9, Red Cell Distribution Width 11.6, Platelet Count 337, Mean Platelet Volume 6.3L, Neutrophils (%) (Auto) 58.2, Lymphocytes ( %) (Auto) 29.8, Monocytes (%) (Auto) 6.3, Eosinophils (%) (Auto) 4.9H, Basophils (%) (Auto) 0.8, Sodium Level 141, Potassium Level 3.3L, Chloride Level 105, Carbon Dioxide Level 32, Anion Gap 4L, Blood Urea Nitrogen 19H, Creatinine 0.9, Estimat Glomerular Filtration Rate > 60, Glucose Level 152H, Calcium Level 8.5 Current Medications Medications (Trade) Dose Ordered Sig/Ivana Route PRN Reason Start Time Stop Time Status Last Admin Dose Admin Acetaminophen (Tylenol) 650 mg Q4H PRN ORAL Mild Pain/Temp > 100.5 05/11/17 14:45 06/10/17 14:44 05/13/17 06:12 Acetaminophen/ Codeine Phosphate (Tylenol #3) 1 tab Q6H PRN ORAL PAIN SCALE (4-10) UNRELIEVED B 05/11/17 15:15 05/18/17 15:14 Albuterol/ Ipratropium (Albuterol/ Ipratropium) 3 ml Q4HRT HHN 05/11/17 15:00 05/16/17 14:59 05/14/17 07:32 Albuterol/ Ipratropium (Albuterol/ Ipratropium) 3 ml Q4HRT PRN HHN Shortness of Breath 05/11/17 14:45 05/16/17 14:44 Amlodipine Besylate (Norvasc) 10 mg DAILY ORAL 05/11/17 17:15 06/10/17 17:14 05/13/17 09:41 Atenolol (Tenormin) 25 mg BID@0700,1900 ORAL 05/11/17 19:00 06/10/17 18:59 05/14/17 06:20 Azithromycin (Zithromax) 250 mg DAILY@1600 ORAL 05/12/17 09:00 05/19/17 23:59 05/13/17 16:00 Ceftriaxone Sodium 1 gm/ Sodium Chloride 55 ml @ 110 mls/hr Q24H IVPB 05/12/17 11:00 05/19/17 23:59 05/13/17 11:19 Dextrose (Dextrose 50%) STAT PRN IV Hypoglycemia 05/11/17 15:15 06/10/17 15:14 Doxazosin Mesylate (Cardura) 4 mg DAILY@0700 ORAL 05/12/17 07:00 06/11/17 06:59 05/14/17 06:20 Gabapentin (Neurontin) 600 mg THREE TIMES A DAY ORAL 05/11/17 18:00 06/10/17 17:59 05/13/17 17:41 Hydrochlorothiazide (Hydrodiuril) 25 mg DAILY ORAL 05/12/17 09:00 06/11/17 08:59 05/13/17 09:41 Insulin Aspart (NovoLOG Mix 70/ 30) 15 units BEFORE MEALS SUBQ 05/13/17 06:30 06/10/17 16:59 05/14/17 06:21 Lactobacillus Acidophilus (Culturelle) 1 tab THREE TIMES A DAY ORAL 05/12/17 18:00 06/11/17 17:59 05/13/17 17:41 Lisinopril (Prinivil) 40 mg DAILY ORAL 05/12/17 09:00 06/11/17 08:59 05/13/17 09:41 Metoclopramide HCl (Reglan) 5 mg TID PRN ORAL Nausea & Vomiting 05/12/17 13:45 06/11/17 13:44 Pantoprazole (Protonix) 40 mg DAILY ORAL 05/12/17 09:00 06/11/17 08:59 05/13/17 09:41 Simethicone (Mylicon) 80 mg QID PRN ORAL GAS PAIN 05/12/17 13:45 06/11/17 13:44 Tramadol HCl (Ultram) 50 mg Q6H PRN ORAL For Pain 4-10 05/11/17 14:45 05/18/17 14:44 05/13/17 21:28 Jonathan Ortiz MD May 14, 2017 08:34
[2017-05-14] MEDS: Lisinopril 20mg tab ORAL SCH (09:00)
[2017-05-14] MEDS: Lactobacillus-GG tablet ORAL SCH ×2 (09:01→15:27)
--- NOTE | 2017-05-14 10:36 | GI Progress Note ---
Assessment/Plan Problems: (1) Abdominal pain ICD Codes: R10.9 - Unspecified abdominal pain SNOMED: 29625892 (2) Fatty liver ICD Codes: K76.0 - Fatty (change of) liver, not elsewhere classified SNOMED: 515207175 (3) Constipation ICD Codes: K59.00 - Constipation, unspecified SNOMED: 01185998 Status: stable Status Narrative Discussed with Dr. Chan. Assessment/Plan CT chest reviewed >> fatty liver adv ADA diet bowel regime >> colace + miralax, prn dulcolax low dose reglan TID H2B probiotics DM mgmt fu labs Subjective Subjective had small Bm yesterday abdomen less distended ambulating tolerating [employer] Objective Last 24 Hour Vital Signs Date Time Temp Pulse Resp B/P (MAP) Pulse Ox O2 Delivery O2 Flow Rate FiO2 05/14/17 09:01 75 113/67 05/14/17 09:00 113/67 05/14/17 07:39 89 20 99 Room Air 21 05/14/17 07:33 88 20 98 Room Air 21 05/14/17 06:20 82 119/66 05/14/17 04:00 98.1 82 20 119/66 94 Room Air 05/14/17 03:50 Room Air 05/14/17 03:50 Room Air 05/13/17 23:21 96 20 98 Room Air 21 05/13/17 23:21 94 20 95 Room Air 21 05/13/17 20:30 79 131/107 05/13/17 20:00 Room Air 05/13/17 20:00 97.7 79 19 131/107 100 Room Air 05/13/17 19:45 102 20 96 Room Air 21 05/13/17 19:30 98 20 92 Room Air 21 05/13/17 16:00 98.2 77 20 114/68 100 05/13/17 15:26 88 20 100 Room Air 21 05/13/17 15:18 88 20 97 Room Air 21 05/13/17 12:00 97.3 82 20 103/62 99 05/13/17 11:23 73 20 100 Room Air 21 05/13/17 11:14 70 20 98 Room Air 21 Intake and Output 05/13/17 05/14/17 19:00 07:00 Intake Total 440 ml 480 ml Balance 440 ml 480 ml Intake Oral 440 ml 480 ml # Voids 4 3 Laboratory Tests Test 05/14/17 05:35 White Blood Count 8.7 K/UL (4.8-10.8) Red Blood Count 3.47 M/UL (4.20-5.40) L Hemoglobin 10.5 G/DL (12.0-16.0) L Hematocrit 32.0 % (37.0-47.0) L Mean Corpuscular Volume 92 FL (80-99) Mean Corpuscular Hemoglobin 30.4 PG (27.0-31.0) Mean Corpuscular Hemoglobin Concent 32.9 G/DL (32.0-36.0) Red Cell Distribution Width 11.6 % (11.6-14.8) Platelet Count 337 K/UL (150-450) Mean Platelet Volume 6.3 FL (6.5-10.1) L Neutrophils (%) (Auto) 58.2 % (45.0-75.0) Lymphocytes (%) (Auto) 29.8 % (20.0-45.0) Monocytes (%) (Auto) 6.3 % (1.0-10.0) Eosinophils (%) (Auto) 4.9 % (0.0-3.0) H Basophils (%) (Auto) 0.8 % (0.0-2.0) Sodium Level 141 MMOL/L (136-145) Potassium Level 3.3 MMOL/L (3.5-5.1) L Chloride Level 105 MMOL/L (98-107) Carbon Dioxide Level 32 MMOL/L (21-32) Anion Gap 4 mmol/L (5-15) L Blood Urea Nitrogen 19 mg/dL (7-18) H Creatinine 0.9 MG/DL (0.55-1.30) Estimat Glomerular Filtration Rate > 60 mL/min (>60) Glucose Level 152 MG/DL (74-106) H Calcium Level 8.5 MG/DL (8.5-10.1) Height (Feet): 5 Height (Inches): 1.00 Weight (Pounds): 176 General Appearance: WD/WN, no apparent distress, alert, overweight Cardiovascular: normal rate Respiratory/Chest: normal breath sounds, no respiratory distress Abdominal Exam: normal bowel sounds, non tender, soft Extremities: normal range of motion, non-tender Knapp,Sparkle Dev N.P. May 14, 2017 10:36
[2017-05-14] MEDS ORDERED: Bisacodyl EC 5mg tab ORAL PRN (10:45)
[2017-05-14] MEDS: cefTRIAXone 1 GM in NS 55 ML IVPB SCH (11:16)
[2017-05-14 12:00] VITALS: BP 118/67
--- NOTE | 2017-05-14 12:46 | Infectious Diseases Prog Note ---
Assessment/Plan Assessment/Plan A; COPD exacerbation Laryngitis Congenital lung mass Fatty liver Constipation P; Can be discharged to home with PO Levaquin X 3 days Subjective ROS Limited/Unobtainable: No HEENT: Reports: congestion, other - hoarseness Respiratory: Reports: dry cough Cardiovascular: Reports: no symptoms Gastrointestinal/Abdominal: Reports: no symptoms Genitourinary: Reports: no symptoms Allergies: Coded Allergies: No Known Allergies (Unverified , 07/30/15) Objective Vital Signs Last 24 Hour Vital Signs Date Time Temp Pulse Resp B/P (MAP) Pulse Ox O2 Delivery O2 Flow Rate FiO2 05/14/17 12:00 97.3 81 20 118/67 98 Room Air 05/14/17 10:43 71 20 98 Room Air 21 05/14/17 10:37 68 20 97 Room Air 21 05/14/17 09:01 75 113/67 05/14/17 09:00 113/67 05/14/17 08:00 97.6 75 20 113/67 98 Room Air 05/14/17 07:39 89 20 99 Room Air 21 05/14/17 07:33 88 20 98 Room Air 21 05/14/17 06:20 82 119/66 05/14/17 04:00 98.1 82 20 119/66 94 Room Air 05/14/17 03:50 Room Air 05/14/17 03:50 Room Air 05/13/17 23:21 96 20 98 Room Air 21 05/13/17 23:21 94 20 95 Room Air 21 05/13/17 20:30 79 131/107 05/13/17 20:00 Room Air 05/13/17 20:00 97.7 79 19 131/107 100 Room Air 05/13/17 19:45 102 20 96 Room Air 21 05/13/17 19:30 98 20 92 Room Air 21 05/13/17 16:00 98.2 77 20 114/68 100 05/13/17 15:26 88 20 100 Room Air 21 05/13/17 15:18 88 20 97 Room Air 21 Height (Feet): 5 Height (Inches): 1.00 Weight (Pounds): 176 HEENT: mucous membranes moist Respiratory/Chest: decreased breath sounds Cardiovascular: normal rate Abdomen: soft, non tender Extremities: no edema Neurologic/Psychiatric: alert, oriented x 3, responsive Microbiology Date/Time Source Procedure Growth Status 05/11/17 15:20 Nasal Aspirate Influenza Types A,B Antigen (BINDU) - Final Complete Laboratory Tests Test 05/14/17 05:35 White Blood Count 8.7 K/UL (4.8-10.8) Red Blood Count 3.47 M/UL (4.20-5.40) L Hemoglobin 10.5 G/DL (12.0-16.0) L Hematocrit 32.0 % (37.0-47.0) L Mean Corpuscular Volume 92 FL (80-99) Mean Corpuscular Hemoglobin 30.4 PG (27.0-31.0) Mean Corpuscular Hemoglobin Concent 32.9 G/DL (32.0-36.0) Red Cell Distribution Width 11.6 % (11.6-14.8) Platelet Count 337 K/UL (150-450) Mean Platelet Volume 6.3 FL (6.5-10.1) L Neutrophils (%) (Auto) 58.2 % (45.0-75.0) Lymphocytes (%) (Auto) 29.8 % (20.0-45.0) Monocytes (%) (Auto) 6.3 % (1.0-10.0) Eosinophils (%) (Auto) 4.9 % (0.0-3.0) H Basophils (%) (Auto) 0.8 % (0.0-2.0) Sodium Level 141 MMOL/L (136-145) Potassium Level 3.3 MMOL/L (3.5-5.1) L Chloride Level 105 MMOL/L (98-107) Carbon Dioxide Level 32 MMOL/L (21-32) Anion Gap 4 mmol/L (5-15) L Blood Urea Nitrogen 19 mg/dL (7-18) H Creatinine 0.9 MG/DL (0.55-1.30) Estimat Glomerular Filtration Rate > 60 mL/min (>60) Glucose Level 152 MG/DL (74-106) H Calcium Level 8.5 MG/DL (8.5-10.1) Current Medications Medications (Trade) Dose Ordered Sig/Ivana Route PRN Reason Start Time Stop Time Status Last Admin Dose Admin Acetaminophen (Tylenol) 650 mg Q4H PRN ORAL Mild Pain/Temp > 100.5 2/13/18 14:45 06/10/17 14:44 05/13/17 06:12 Acetaminophen/ Codeine Phosphate (Tylenol #3) 1 tab Q6H PRN ORAL PAIN SCALE (4-10) UNRELIEVED B 05/11/17 15:15 05/18/17 15:14 Albuterol/ Ipratropium (Albuterol/ Ipratropium) 3 ml Q4HRT HHN 05/11/17 15:00 05/16/17 14:59 05/14/17 10:41 Albuterol/ Ipratropium (Albuterol/ Ipratropium) 3 ml Q4HRT PRN HHN Shortness of Breath 05/11/17 14:45 05/16/17 14:44 Amlodipine Besylate (Norvasc) 10 mg DAILY ORAL 05/11/17 17:15 06/10/17 17:14 05/14/17 09:01 Atenolol (Tenormin) 25 mg BID@0700,1900 ORAL 05/11/17 19:00 06/10/17 18:59 05/14/17 06:20 Azithromycin (Zithromax) 250 mg DAILY@1600 ORAL 05/12/17 09:00 05/19/17 23:59 05/13/17 16:00 Bisacodyl (Dulcolax) 5 mg DAILYPRN PRN ORAL Constipation 05/14/17 10:45 06/13/17 10:44 Ceftriaxone Sodium 1 gm/ Sodium Chloride 55 ml @ 110 mls/hr Q24H IVPB 05/12/17 11:00 05/19/17 23:59 05/14/17 11:16 Dextrose (Dextrose 50%) STAT PRN IV Hypoglycemia 05/11/17 15:15 06/10/17 15:14 Doxazosin Mesylate (Cardura) 4 mg DAILY@0700 ORAL 05/12/17 07:00 06/11/17 06:59 05/14/17 06:20 Gabapentin (Neurontin) 600 mg THREE TIMES A DAY ORAL 05/11/17 18:00 06/10/17 17:59 05/14/17 09:00 Hydrochlorothiazide (Hydrodiuril) 25 mg DAILY ORAL 05/12/17 09:00 06/11/17 08:59 05/14/17 09:00 Insulin Aspart (NovoLOG Mix 70/ 30) 15 units BEFORE MEALS SUBQ 05/13/17 06:30 06/10/17 16:59 05/14/17 11:18 Lactobacillus Acidophilus (Culturelle) 1 tab THREE TIMES A DAY ORAL 05/12/17 18:00 06/11/17 17:59 05/14/17 09:01 Lisinopril (Prinivil) 40 mg DAILY ORAL 05/12/17 09:00 06/11/17 08:59 05/14/17 09:00 Metoclopramide HCl (Reglan) 5 mg TID PRN ORAL Nausea & Vomiting 05/12/17 13:45 06/11/17 13:44 Pantoprazole (Protonix) 40 mg DAILY ORAL 05/12/17 09:00 06/11/17 08:59 05/14/17 09:00 Simethicone (Mylicon) 80 mg QID PRN ORAL GAS PAIN 05/12/17 13:45 06/11/17 13:44 Tramadol HCl (Ultram) 50 mg Q6H PRN ORAL For Pain 4-10 05/11/17 14:45 05/18/17 14:44 05/13/17 21:28 CORINNE GUILLERMO May 14, 2017 12:45
[2017-05-14] MEDS ORDERED: LEVAQUIN750 MG ORAL (12:52)
--- NOTE | 2017-05-14 14:49 | Cardiology Report ---
APPROVED REPORT EKG Measurement Heart [id number] Normal sinus rhythm Normal ECG
[2017-05-14 16:00] VITALS: BP 106/61
[2017-05-14] MEDS: Azithromycin 250mg tab ORAL SCH (16:17)
--- NOTE | 2017-05-15 03:37 | General Progress Note ---
Assessment/Plan Status: stable Assessment/Plan #. Anemia of chronic disease. --> Trend cbc daily. Transfuse if hgb <7 #. 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 --> Currently, no evidence of malignancy. --> Continue to closely monitor and also for improvement. #. Anticoagulation. --> The patient has been on anticoagulant before, currently been discontinued, in September she was on it, unsure why she is on it. --> We will obtain duplex of lower extremities. --> Consider Cardiology followup. #. Asthma exacerbation. --> She has been on BiPAP before. #. Fatty liver. --> She has been seen by GI Service. --> Continue low-dose Reglan. #. Gastritis. #. Constipation. Subjective Date patient seen: May 14, 2017 Constitutional: Denies: no symptoms, chills, diaphoresis, fever, malaise, weakness, other HEENT: Denies: no symptoms, eye pain, blurred vision, tearing, double vision, ear pain, ear discharge, nose pain, nose congestion, throat pain, throat swelling, mouth pain, mouth swelling, other Cardiovascular: Denies: no symptoms, chest pain, edema, irregular heart rate, lightheadedness, palpitations, syncope, other Respiratory: Denies: no symptoms, cough, orthopnea, shortness of breath, SOB with excertion, SOB at rest, sputum, stridor, wheezing, other Gastrointestinal/Abdominal: Denies: no symptoms, abdomen distended, abdominal pain, black stools, tarry stools, blood in stool, constipated, diarrhea, difficulty swallowing, nausea, poor appetite, poor fluid intake, rectal bleeding , vomiting, other Genitourinary: Denies: no symptoms, burning, discharge, frequency, flank pain, hematuria, incontinence, pain, urgency, other Allergies: Coded Allergies: No Known Allergies (Unverified , 07/30/15) Subjective NAD. No active bleeding. Pending dc Objective Last 24 Hour Vital Signs Date Time Temp Pulse Resp B/P (MAP) Pulse Ox O2 Delivery O2 Flow Rate FiO2 05/14/17 16:00 98.2 65 18 106/61 100 Room Air 05/14/17 14:47 86 20 99 Room Air 21 05/14/17 14:37 80 20 98 Room Air 21 05/14/17 12:00 97.3 81 20 118/67 98 Room Air 05/14/17 10:43 71 20 98 Room Air 21 05/14/17 10:37 68 20 97 Room Air 21 05/14/17 09:01 75 113/67 05/14/17 09:00 113/67 05/14/17 08:00 97.6 75 20 113/67 98 Room Air 05/14/17 07:39 89 20 99 Room Air 21 05/14/17 07:33 88 20 98 Room Air 21 05/14/17 06:20 82 119/66 05/14/17 04:00 98.1 82 20 119/66 94 Room Air 05/14/17 03:50 Room Air 05/14/17 03:50 Room Air Intake and Output 05/14/17 05/15/17 19:00 07:00 Intake Total 560 ml Balance 560 ml Intake Oral 560 ml # Voids 4 Laboratory Tests 05/14/17 05:35: White Blood Count 8.7, Red Blood Count 3.47L, Hemoglobin 10.5L, Hematocrit 32.0L , Mean Corpuscular Volume 92, Mean Corpuscular Hemoglobin 30.4, Mean Corpuscular Hemoglobin Concent 32.9, Red Cell Distribution Width 11.6, Platelet Count 337, Mean Platelet Volume 6.3L, Neutrophils (%) (Auto) 58.2, Lymphocytes ( %) (Auto) 29.8, Monocytes (%) (Auto) 6.3, Eosinophils (%) (Auto) 4.9H, Basophils (%) (Auto) 0.8, Sodium Level 141, Potassium Level 3.3L, Chloride Level 105, Carbon Dioxide Level 32, Anion Gap 4L, Blood Urea Nitrogen 19H, Creatinine 0.9, Estimat Glomerular Filtration Rate > 60, Glucose Level 152H, Calcium Level 8.5 Height (Feet): 5 Height (Inches): 1.00 Weight (Pounds): 176 General Appearance: no apparent distress EENT: normal ENT inspection Neck: normal alignment Cardiovascular: normal rate Respiratory/Chest: lungs clear Rodolfo Ohara May 15, 2017 03:37
--- NOTE | 2017-05-17 15:01 | Discharge Summary ---
Discharge Summary Hospital Course Date of Admission May 11, 2017 at 10:25 Date of Discharge May 14, 2017 at 18:19 Admitting Diagnosis ASTHMA EXACERBATION PETERSON Rao is a 56 year old female who was admitted on May 11, 2017 at 10: 25 for Body Pain,Cold Hospital Course dc summary #[id number] Discharge Medications Continued Medications: Albuterol Sulfate* (Albuterol Sulfate Mdi*) 8.5 Gm Hfa.aer.ad 2 PUFF INH Q4H PRN for cough/wheezing, #1 EA 0 Refills Albuterol Sulfate* (Albuterol Sulfate Hhn*) 2.5 Mg/3 Ml Vial.neb 2.5 MG HHN Q4H PRN for Shortness of Breath, #25 VIAL Amlodipine Besylate* (Amlodipine Besylate*) 10 Mg Tablet 10 MG ORAL DAILY, TAB Atenolol* (Tenormin*) 25 Mg Tablet 25 MG ORAL BID, TAB Doxazosin Mesylate* (Cardura*) 4 Mg Tablet 4 MG ORAL DAILY, TAB Gabapentin* (Gabapentin*) 600 Mg Tablet 600 MG ORAL THREE TIMES A DAY, TAB Hum Insulin Nph/Reg Insulin Hm (Novolin 70-30 100 Unit/Ml Vial) 100 Unit/1 Ml Vial 15 UNITS SUBQ BEFORE BREAKFAST, VIAL Hum Insulin Nph/Reg Insulin Hm (Novolin 70-30 100 Unit/Ml Vial) 100 Unit/1 Ml Vial 10 SUBQ BEDTIME, VIAL Hydrochlorothiazide* (Hydrochlorothiazide*) 25 Mg Tablet 25 MG ORAL DAILY, TAB Levofloxacin* (Levaquin*) 750 Mg Tablet 750 MG ORAL DAILY for 3 Days, #3 TAB Lisinopril (Lisinopril*) 20 Mg Tablet 40 MG ORAL DAILY, TAB Omeprazole (Omeprazole) 20 Mg Tablet.dr 20 MG ORAL DAILY, #30 TAB Tramadol Hcl* (Ultram*) 50 Mg Tablet 50 MG ORAL Q6H PRN for For Pain, #10 TAB 0 Refills Discharge Condition Upon Discharge: stable Discharge Disposition Patient was discharged to Home () Discharge Diagnoses: Discharge Instructions Discharge Instructions Special Instructions I have been assigned to complete a D/C Summary on this account. I was not involved in the patient management Maria G Nolasco NP (Vanchtein) May 17, 2017 15:01
--- NOTE | 2017-05-17 22:00 | Discharge Summary 2 SIG ---
DATE OF ADMISSION: 05/11/2017 DATE OF DISCHARGE: 05/14/2017 CLOTH MEASURER: 1. Infectious Disease, Dr. Anderson Durham. 2. Incendiary Powder Mixer, Dr. Jonathan Ortiz. 3. Solutions Delivery Consultant/oncologist, Dr. Rodolfo Ohara. 4. GI specialist, Dr. Pee Chan. REASON FOR ADMISSION: 56-year-old female with history of hypertension, diabetes, asthma, presented with shortness of breath for one week. The patient was diagnosed with asthma exacerbation and admitted for further management. HOSPITAL COURSE: The patient was admitted. Supplemental oxygen provided as needed to keep pulse oximetry above 92%. The patient was received nebulizing treatment with bronchodilator. The patient was on empiric antibiotic. ID closely followed. The patient received first dose of IV steroid , Solu-Medrol 125 mg in the emergency department, after it felt better, although complained of the chest pain. Troponin was negative. EKG revealed no acute ischemic changes. Chest x-ray revealed hyperlucency in the right lung apex. Subsequently, the patient undergone CT of the chest, which revealed unusual low-density bilobed mass at the right suprahilar region measuring 4.1 x 5.7 x 3.0 cm, possibly mass was cystic; mass remained with low density despite intravenous contrast administration, suspected a congenital mass such as esophageal duplication cyst, bronchogenic cyst. Etiology was uncertain. No evidence of pneumonia. Fatty liver. Incendiary Powder Mixer seen the patient for abnormal CT result and suggested that the patient can be discharged home and initiate outpatient workup by primary care provider for the process. The chest pain abnormalities may have been seen in the past and there could be a previous workup ordered as well. The patient was initially on empiric antibiotics. ID followed. The patient was discharged on antibiotic to continue for three more days. According to ID specialist, the patient likely has laryngitis as well. GI seen and evaluated the patient. Bowel regimen instituted. CT of the chest revealed fatty liver. LFT within normal limits. Low dose Reglan was initiated. The patient started on H2 rusty as well as the probiotic. Blood pressure and blood sugar were managed with current regimen. Solutions Delivery Consultant/oncologist seen and evaluated the patient. The patient had one day of leukocytosis, likely reactive. Hemoglobin and hematocrit remained on the baseline, stable. Solutions Delivery Consultant/oncologist recommended to trend CBC with the primary care provider and initiate anemia workup if hemoglobin trending down. Lung mass, possibly cystic, probably congenital. No evidence of malignancy. All consultants agreed on discharge. FINAL DIAGNOSES: 1. Chronic obstructive pulmonary disease/asthma exacerbation. 2. Laryngitis. 3. 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 4. Anemia of chronic disease. 5. Diabetes mellitus. 6. Hypertension. 7. Gastroesophageal reflux disease. 8. Fatty liver. 9. Constipation. DISCHARGE MEDICATIONS: See medication reconciliation list. DISCHARGE INSTRUCTIONS: The patient discharged home. The patient to follow up with the primary care provider for abnormal CT result. Omaira Santillan M.D. I have been assigned to dictate discharge summary on this account and I was not involved in the patient's management. Maria G AltamiranoGlens Falls HospitalTheo N.P. DR: SNOW JOB#: [id number] CC: MIKE
== END 2017-05-14 18:19 | disposition home or self-care (01) | DRG 141 ==
LOC: EMR 07:45 → 4E 10:25 → EDBEDREQ 10:59
DX: J45.901 Unspecified asthma with (acute) exacerbation (principal); E11.40 Type 2 diabetes mellitus with diabetic neuropathy, unspecified; K76.0 Fatty (change of) liver, not elsewhere classified; N39.0 Urinary tract infection, site not specified; K59.00 Constipation, unspecified; J04.0 Acute laryngitis; R91.8 Other nonspecific abnormal finding of lung field; J44.1 Chronic obstructive pulmonary disease with (acute) exacerbation; I10 Essential (primary) hypertension; R00.0 Tachycardia, unspecified; K29.70 Gastritis, unspecified, without bleeding; D63.8 Anemia in other chronic diseases classified elsewhere; Z23 Encounter for immunization
CPT/HCPCS: 36415; 71045; 71046; 71260; 80048; 80053; 81003; 82962; 83880; 84484; 85025; 86710; 90630; 93005; 94640; 94664; 99285; J1815; J7620; J8499

== ENCOUNTER 2017-07-07 09:47 | Emergency (ER) | payer MEDICAID ==
[~2017-07-07] VITALS: Ht 157.5 cm; Wt 79.8 kg
[~2017-07-07 09:47] MED LIST changes: +ALBUTEROL SULF8.5 GM INH; +ALBUTEROL2.5 MG/3 M HHN; +COMPACT COMPRE1 EACH MC; +LEVAQUIN750 MG ORAL; +PREDNISONE20 MG ORAL
[2017-07-07 10:26] VITALS: BP 164/80
[2017-07-07] MEDS ORDERED: Morphine Sulfate 4mg/ml Inj IVP ONE (11:00)
[2017-07-07] MEDS ORDERED: Ketorolac 30mg Inj IV ONE (11:00)
[2017-07-07 11:16] LABS: BASOPHILS % (AUTO) 0.9 % (0.0-2.0); EOSINOPHILS % (AUTO) 4.9 % (0.0-3.0); HEMATOCRIT 41.3 % (37.0-47.0); HEMOGLOBIN 13.8 G/DL (12.0-16.0); LYMPHOCYTES % (AUTO) 26.8 % (20.0-45.0); MEAN CORPUSCULAR VOLUME 89 FL (80-99); MONOCYTES % (AUTO) 5.6 % (1.0-10.0); NEUTROPHILS % (AUTO) 61.8 % (45.0-75.0); PLATELET COUNT 371 K/UL (150-450); RED BLOOD COUNT 4.66 M/UL (4.20-5.40); RED CELL DISTRIBUTION WIDTH 10.7 % (11.6-14.8); WHITE BLOOD COUNT 7.4 K/UL (4.8-10.8)
[2017-07-07 11:25] LABS: ANION GAP 7 mmol/L (5-15); BLOOD UREA NITROGEN 21 mg/dL (7-18); CALCIUM 8.8 MG/DL (8.5-10.1); CARBON DIOXIDE 29 MMOL/L (21-32); CHLORIDE 103 MMOL/L (98-107); CREATININE 0.9 MG/DL (0.55-1.30); POTASSIUM 3.2 MMOL/L (3.5-5.1); SODIUM 139 MMOL/L (136-145)
[2017-07-07 11:30] LABS: ALANINE AMINOTRANSFERASE 72 U/L (12-78); ALBUMIN 3.2 G/DL (3.4-5.0); ALBUMIN/GLOBULIN RATIO 0.7 (1.0-2.7); ALKALINE PHOSPHATASE 218 U/L (46-116); ASPARTATE AMINO TRANSFERASE 72 U/L (15-37); CREATINE KINASE 86 U/L (26-308)
[2017-07-07 12:08] VITALS: BP 158/77
--- NOTE | 2017-07-07 13:35 | Emergency Room Report ---
History of Present Illness General Chief Complaint: Pain Source: Patient Present Illness HPI Patient presents with severe bilateral foot pain. H/O diabetic neuropathy. Pain is severe and burning. No fevers. On insulin. She has run out of her Gabapentin and other analgesics. Some polies. Nausea, no vomiting. No headache. No chest pain or dyspnea. Fell yesterday. Hit her head. No LOC but feels some dizziness. Admitted in April for asthma exacerbation. Question of pneumo on CXR. CT performed: IMPRESSION: Unusual low density right suprahilar mass measuring 4.1 x 5.7 x 3.0 cm, possibly cystic. Suspect a congenital mass such as esophageal duplication cyst, bronchogenic cyst. Etiology is uncertain. Given the small possibility that this is a varix or vascular structure, recommend dynamic contrast-enhanced CT chest. Correlate with any known history. Hyperlucent right upper lobe with possibility of both bronchial structures and vessels indicative of failure of development (atresia). No evidence of pneumonia or other acute findings. Fatty liver Allergies: Coded Allergies: No Known Allergies (Unverified , 07/30/15) Patient History Past Medical History: see triage record Past Surgical History: hysterectomy Social History: Denies: smoking Social History Narrative with daughter Last Menstrual Period: Post Reviewed Nursing Documentation: PMH: Agreed; PSxH: Agreed Nursing Documentation-PMH Hx Cardiac Problems: Yes Hx Hypertension: Yes Hx Asthma: Yes Hx Diabetes: Yes Hx Cancer: No Hx Gastrointestinal Problems: Yes - Gastritis Hx Neurological Problems: No Review of Systems All Other Systems: negative except mentioned in HPI Physical Exam Vital Signs Date Time Temp Pulse Resp B/P (MAP) Pulse Ox O2 Delivery O2 Flow Rate FiO2 07/07/17 10:09 102 17 164/99 94 Room Air 07/07/17 10:26 97.7 97.7 Sp02 EP Interpretation: reviewed, normal - though slightly low General Appearance: well appearing, GCS 15, mild distress Head: normocephalic Eyes: bilateral eye normal inspection, bilateral eye PERRL ENT: moist mucus membranes Neck: supple Respiratory: lungs clear, normal breath sounds Cardiovascular #1: regular rate, rhythm Cardiovascular #2: 2+ radial (R) Gastrointestinal: normal inspection, normal bowel sounds, no mass, non- distended Musculoskeletal: back normal, gait/station normal, normal range of motion, no calf tenderness 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, oriented x3, motor strength/tone normal, sensory deficit - ext, grossly normal Psychiatric: depressed affect, other - in pain Skin: normal inspection, warm/dry, other - hyperpigmentation LE Medical Decision Making Diagnostic Impression: Primary Impression: Diabetes mellitus Qualified Codes: E10.42 - Type 1 diabetes mellitus with diabetic polyneuropathy Additional Impressions: Painful diabetic neuropathy Hyperglycemia ER Course Patient with bilateral foot and leg pain. DDx; exacerbation of diabetic pain, hyperglycemia, DVT, muscle spasms, electrolyte abnormalities amongst others. Evaluation with EKG and labs. Treatment with IV hydration and analgesia. Exam and hx against PE. Xrays not indicated based on exam and history. No imaging indicated. EKG with NSR/PACs. Hyperglycemia. Due to history and physical, CT of head not indicated. Patient joking and smiling after analgesia. IV insulin given. Repeat accucheck decreased. Patient knows how to adjust own insulin. Patient stable for outpatient observation and treatment. Laboratory Tests Test 07/07/17 11:00 White Blood Count 7.4 K/UL (4.8-10.8) Red Blood Count 4.66 M/UL (4.20-5.40) Hemoglobin 13.8 G/DL (12.0-16.0) Hematocrit 41.3 % (37.0-47.0) Mean Corpuscular Volume 89 FL (80-99) Mean Corpuscular Hemoglobin 29.5 PG (27.0-31.0) Mean Corpuscular Hemoglobin Concent 33.3 G/DL (32.0-36.0) Red Cell Distribution Width 10.7 % (11.6-14.8) L Platelet Count 371 K/UL (150-450) Mean Platelet Volume 7.1 FL (6.5-10.1) Neutrophils (%) (Auto) 61.8 % (45.0-75.0) Lymphocytes (%) (Auto) 26.8 % (20.0-45.0) Monocytes (%) (Auto) 5.6 % (1.0-10.0) Eosinophils (%) (Auto) 4.9 % (0.0-3.0) H Basophils (%) (Auto) 0.9 % (0.0-2.0) Sodium Level 139 MMOL/L (136-145) Potassium Level 3.2 MMOL/L (3.5-5.1) L Chloride Level 103 MMOL/L (98-107) Carbon Dioxide Level 29 MMOL/L (21-32) Anion Gap 7 mmol/L (5-15) Blood Urea Nitrogen 21 mg/dL (7-18) H Creatinine 0.9 MG/DL (0.55-1.30) Estimate Glomerular Filtration Rate > 60 mL/min (>60) Glucose Level 357 MG/DL (74-106) H Calcium Level 8.8 MG/DL (8.5-10.1) Total Bilirubin 1.0 MG/DL (0.2-1.0) Aspartate Amino Transferase (AST) 72 U/L (15-37) H Alanine Aminotransferase (ALT) 72 U/L (12-78) Alkaline Phosphatase 218 U/L (46-116) H Total Creatine Kinase 86 U/L (26-308) Troponin I 0.000 ng/mL (0.000-0.056) Total Protein 7.6 G/DL (6.4-8.2) Albumin 3.2 G/DL (3.4-5.0) L Globulin 4.4 g/dL Albumin/Globulin Ratio 0.7 (1.0-2.7) L EKG Diagnostic Results Rate: normal Rhythm: NSR ST Segments: no acute changes Rhythm Strip Diag. Results EP Interpretation: yes Rhythm: NSR, no PVC's, other - PACs Last Vital Signs Date Time Temp Pulse Resp B/P (MAP) Pulse Ox O2 Delivery O2 Flow Rate FiO2 07/07/17 14:05 97.7 87 16 112/73 100 Room Air 97.7 Status: improved Disposition: HOME, SELF-CARE Condition: Improved Scripts Acetaminophen (Tylenol) 325 Mg Tablet 650 MG ORAL Q6H PRN for Prn Pain/Headache/Temp > 101, #30 TAB 0 Refills Prov: Evans Hoskins M.D. 07/07/17 Tramadol Hcl* (ULTRAM*) 50 Mg Tablet 50 MG ORAL Q6H PRN for For Pain, #16 TAB 0 Refills Prov: Evans Hoskins M.D. 07/07/17 Gabapentin* (GABAPENTIN*) 600 Mg Tablet 600 MG ORAL BID, #60 TAB Prov: Evans Hoskins M.D. 07/07/17 Referrals: NOT CHOSEN ALEXANDRA/,REFERRING (PCP) Evans Hoskins M.D. Jul 07, 2017 13:35
[2017-07-07] MEDS ORDERED: GABAPENTIN600 MG ORAL (13:39)
[2017-07-07] MEDS ORDERED: TRAMADOL HCL50 MG ORAL (13:39)
[2017-07-07] MEDS ORDERED: TYLENOL325 MG ORAL (13:39)
[2017-07-07 14:00] VITALS: BP 112/73
[2017-07-07 14:05] VITALS: BP 112/73
== END 2017-07-07 14:10 | disposition home or self-care (01) ==
LOC: EMR 10:54
DX: E11.40 Type 2 diabetes mellitus with diabetic neuropathy, unspecified (principal); Z79.4 Long term (current) use of insulin; J45.909 Unspecified asthma, uncomplicated; I10 Essential (primary) hypertension; K29.70 Gastritis, unspecified, without bleeding
CPT/HCPCS: 36415; 80053; 82550; 82962; 84484; 85025; 93005; 96374; 96375; 99284; J1815; J1885; J2270; J2405

== ENCOUNTER 2017-10-12 02:05 | Emergency (ER) | payer MEDICAID ==
[~2017-10-12] VITALS: Ht 154.9 cm; Wt 80.7 kg
[~2017-10-12 02:05] MED LIST changes: +NITROFURANTOIN100 M2 ORAL; +TYLENOL325 MG ORAL; +VITAMIN B COMP1 EAC2 ORAL
[2017-10-12 02:35] VITALS: BP 151/74
[2017-10-12] MEDS ORDERED: oxyCODONE HCL/Acetaminophen 5/325mg ORAL ONE (03:45)
[2017-10-12 04:35] VITALS: BP 148/76
[2017-10-12] MEDS ORDERED: Mylanta II UD 30ml ORAL ONE (05:00)
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
[2017-10-12] MEDS ORDERED: ROBAXIN500 MG PO (06:18)
[2017-10-12 06:34] VITALS: BP 135/76
--- NOTE | 2017-10-12 10:10 | Diagnostic Imaging Report ---
Indication: Neck Pain Findings: 3 views of the cervical spine were obtained. No fracture or malalignment identified. There is narrowing of the intervertebral disc at the C4-5 with moderate endplate osteophyte formation. C5-C6 with similar changes to a lesser extent. There is no soft tissue swelling identified. The dens is intact. The C1-2 alignment is normal. IMPRESSION: Degenerative changes of the cervical spine
== END 2017-10-12 07:03 | disposition home or self-care (01) ==
LOC: EMR 03:00
DX: S16.1XXA Strain of muscle, fascia and tendon at neck level, initial encounter (principal); W05.1XXA Fall from non-moving nonmotorized scooter, initial encounter; Y92.9 Unspecified place or not applicable; R10.13 Epigastric pain; I10 Essential (primary) hypertension; E11.9 Type 2 diabetes mellitus without complications; J45.909 Unspecified asthma, uncomplicated
CPT/HCPCS: 72040; 82962; 99283

== ENCOUNTER 2017-11-13 08:05 | Emergency (ER) | payer MEDICAID ==
[~2017-11-13] VITALS: Ht 154.9 cm; Wt 79.8 kg
[~2017-11-13 08:05] MED LIST changes: +ROBAXIN500 MG PO
[2017-11-13 08:23] VITALS: BP 186/92
[2017-11-13] MEDS ORDERED: traMADol 50mg tab ORAL ONE (09:00)
[2017-11-13] MEDS ORDERED: TRAMADOL HCL50 MG ORAL (09:01)
[2017-11-13] MEDS ORDERED: GABAPENTIN600 MG ORAL (09:01)
--- NOTE | 2017-11-13 09:05 | Emergency Room Report ---
History of Present Illness General Chief Complaint: Pain Source: Patient, Medical Record Present Illness HPI 57-year-old female with a history of diabetes, hypertension, asthma Presents with painful burning and itching to both of her feet, reports a chronic problem She reports this is happened to her in the past but usually she takes tramadol and gabapentin, but she's run out recently She denies any calf swelling, feet swelling, fever, cough, shortness of breath, any other symptoms Allergies: Coded Allergies: No Known Allergies (Unverified , 07/30/15) Patient History Past Medical History: see triage record Reviewed Nursing Documentation: PMH: Agreed; PSxH: Agreed Nursing Documentation-PMH Past Medical History: No History, Except For Hx Cardiac Problems: Yes Hx Hypertension: Yes Hx Asthma: Yes Hx Diabetes: Yes Hx Cancer: No Hx Gastrointestinal Problems: Yes - Gastritis Hx Neurological Problems: No Review of Systems All Other Systems: negative except mentioned in HPI Physical Exam Vital Signs Date Time Temp Pulse Resp B/P (MAP) Pulse Ox O2 Delivery O2 Flow Rate FiO2 11/13/17 08:18 97.9 91 16 186/92 96 Room Air 97.9 Sp02 EP Interpretation: reviewed, normal General Appearance: no apparent distress, alert, non-toxic Head: normocephalic Eyes: bilateral eye normal inspection, bilateral eye PERRL, bilateral eye EOMI ENT: normal ENT inspection, hearing grossly normal, normal pharynx, no angioedema, normal voice, moist mucus membranes Neck: normal inspection, full range of motion, supple, supple/symm/no masses Respiratory: chest non-tender, lungs clear, normal breath sounds, chest symmetrical, palpation of chest normal Cardiovascular #1: normal peripheral pulses, regular rate, rhythm Cardiovascular #2: 2+ radial (R), 2+ radial (L), 2+ dorsalis pedis (R), 2+ dorsalis pedis (L) Gastrointestinal: normal inspection, non tender, soft, no mass, no guarding, no rebound Rectal: deferred Genitourinary: normal inspection, no CVA tenderness Musculoskeletal: back normal, gait/station normal, normal range of motion, non- tender, no calf tenderness, Gilbert's Sign negative 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, 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, 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, motor strength/tone normal, sensory intact, speech normal Psychiatric: judgement/insight normal, memory normal, mood/affect normal Skin: normal color, no rash, warm/dry, normal turgor Lymphatic: no adenopathy Medical Decision Making Diagnostic Impression: Primary Impression: Painful diabetic neuropathy ER Course Patient given refills of gabapentin and tramadol, examination normal, no evidence of infection, no suspicion for DVT, right lower extremity does have varicose veins, but patient reports is chronic as well will discharge home with diagnoses of direct neuropathy Last Vital Signs Date Time Temp Pulse Resp B/P (MAP) Pulse Ox O2 Delivery O2 Flow Rate FiO2 11/13/17 08:23 97.9 91 16 186/92 96 Room Air 97.9 Disposition: HOME, SELF-CARE Condition: Stable Scripts Tramadol Hcl* (ULTRAM*) 50 Mg Tablet 50 MG ORAL Q6HR PRN for For Pain for 3 Days, #12 TAB 0 Refills Prov: NUSRAT MATA M.D 11/13/17 Gabapentin* (GABAPENTIN*) 600 Mg Tablet 600 MG ORAL THREE TIMES A DAY for 7 Days, #21 TAB Prov: NUSRAT MATA M.D 11/13/17 Referrals: NON PHYSICIAN (PCP) Departure Forms: Return to Work Return to Work in (Days): 2 Patient Instructions: Diabetic Neuropathy NUSRAT MATA M.D Nov 13, 2017 09:04
[2017-11-13 09:26] VITALS: BP 166/89
== END 2017-11-13 09:28 | disposition home or self-care (01) ==
LOC: EMR 09:00
DX: E11.40 Type 2 diabetes mellitus with diabetic neuropathy, unspecified (principal); I10 Essential (primary) hypertension; J45.909 Unspecified asthma, uncomplicated
CPT/HCPCS: 99283

== ENCOUNTER 2017-12-14 21:06 | Emergency (ER) | payer MEDICAID ==
[~2017-12-14] VITALS: Ht 154.9 cm; Wt 77.6 kg
[2017-12-14 21:25] VITALS: BP 194/94
--- NOTE | 2017-12-14 21:33 | Emergency Room Report ---
History of Present Illness General Chief Complaint: Back Pain-No Injury Source: Patient Present Illness HPI Is a 57-year-old female with a history of high blood pressure and diabetes. She also has a history of back pain and peripheral neuropathy from her diabetes. She normally takes Ultram. She presents with lower back pain rating down her right leg to her knee. His been ongoing for almost a week. Getting worse. No trauma. Pain is 9 out of 10. Worse with walking. Worse with standing. Better with rest. No incontinence of bowel or urine. No fever. Took her Ultram and was better. Allergies: Coded Allergies: No Known Allergies (Unverified , 07/30/15) Patient History Past Medical History: see triage record, old chart reviewed, DM, HTN Past Surgical History: other Pertinent Family History: none Social History: Denies: smoking Now: No Immunizations: other Reviewed Nursing Documentation: PMH: Agreed; PSxH: Agreed Nursing Documentation-PMH Hx Cardiac Problems: Yes Hx Hypertension: Yes Hx Asthma: Yes Hx Diabetes: Yes Hx Cancer: No Hx Gastrointestinal Problems: Yes - Gastritis Hx Neurological Problems: No Review of Systems Eye: Denies: eye pain, blurred vision ENT: Denies: ear pain, nose congestion, throat swelling Respiratory: Denies: cough, shortness of breath Cardiovascular: Denies: chest pain, palpitations Gastrointestinal: Denies: abdominal pain, diarrhea, nausea, vomiting Musculoskeletal: Reports: back pain; Denies: joint pain Skin: Denies: rash Neurological: Denies: headache, numbness Endocrine: Denies: increased thirst, increased urine Hematologic/Lymphatic: Denies: easy bruising All Other Systems: negative except mentioned in HPI Physical Exam Vital Signs Date Time Temp Pulse Resp B/P (MAP) Pulse Ox O2 Delivery O2 Flow Rate FiO2 12/14/17 21:09 98.3 106 18 184/93 95 Room Air 98.2 vitals with high blood pressure Sp02 EP Interpretation: reviewed, normal General Appearance: well appearing, no apparent distress, alert Head: normocephalic, atraumatic Eyes: bilateral eye PERRL, bilateral eye EOMI ENT: hearing grossly normal, normal pharynx Neck: full range of motion, supple, no meningismus Respiratory: chest non-tender, lungs clear, normal breath sounds Cardiovascular #1: regular rate, rhythm, no murmur Gastrointestinal: normal bowel sounds, non tender, no mass, no organomegaly, no bruit, non-distended Musculoskeletal: back normal - tenderness to the right lower back. No step- off. No anesthesia, gait/station normal, normal range of motion 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, oriented x3 Psychiatric: mood/affect normal Skin: warm/dry Medical Decision Making Diagnostic Impression: Primary Impression: Back pain Qualified Codes: M54.41 - Lumbago with sciatica, right side Additional Impressions: UTI (urinary tract infection) Qualified Codes: N30.00 - Acute cystitis without hematuria Hypertension Qualified Codes: I10 - Essential (primary) hypertension ER Course Patient presents with lower back pain with sciatica. No evidence of cauda equina syndrome, spinal after abscess or neoplastic process. She does have urinary tract infection which probably worsen her pain. We'll discharge home with antibiotics. Last Vital Signs Date Time Temp Pulse Resp B/P (MAP) Pulse Ox O2 Delivery O2 Flow Rate FiO2 12/14/17 21:25 98.2 101 19 194/94 95 Room Air 98.2 Status: improved Disposition: HOME, SELF-CARE Condition: Stable Scripts Tramadol Hcl* (ULTRAM*) 50 Mg Tablet 50 MG ORAL Q6H PRN for For Pain, #20 TAB 0 Refills Prov: TISH MAJOR M.D. 12/14/17 Levofloxacin* (LEVAQUIN*) 500 Mg Tablet 500 MG ORAL DAILY, #7 TAB Prov: TISH MAJOR M.D. 12/14/17 Patient Instructions: Sciatica Additional Instructions: Follow-up with your doctor in 7 days. Return if symptom worsen. TISH MAJOR M.D. Dec 14, 2017 21:33
[2017-12-14] MEDS ORDERED: Norco 5mg/325mg tab ORAL ONE (21:45)
[2017-12-14 21:46] LABS: APPEARANCE,URINE SLIGHTLY CLOUDY; BILIRUBIN, URINE NEGATIVE (NEGATIVE); COLOR,URINE AMBER; GLUCOSE, URINE (UA) 2+ (NEGATIVE); KETONES,URINE NEGATIVE (NEGATIVE); LEUKOCYTE ESTERASE ,URINE 3+ (NEGATIVE); NITRITE,URINE NEGATIVE (NEGATIVE); PH,URINE 6 (4.5-8.0); PROTEIN,URINE 2+ (NEGATIVE); UROBILINOGEN,URINE 4 MG/DL (0.0-1.0)
[2017-12-14] MEDS ORDERED: Levofloxacin 500mg tab ORAL ONE (22:15)
[2017-12-14] MEDS ORDERED: LEVAQUIN500 MG ORAL (22:23)
[2017-12-14] MEDS ORDERED: TRAMADOL HCL50 MG ORAL (22:25)
[2017-12-14] MEDS ORDERED: cloNIDine 0.2mg Tab ORAL ONE (22:30)
[2017-12-14 22:45] VITALS: BP 182/87
== END 2017-12-14 22:45 | disposition home or self-care (01) ==
LOC: EMR 21:29
DX: N39.0 Urinary tract infection, site not specified (principal); I10 Essential (primary) hypertension; E11.42 Type 2 diabetes mellitus with diabetic polyneuropathy; J45.909 Unspecified asthma, uncomplicated; Z86.79 Personal history of other diseases of the circulatory system
CPT/HCPCS: 81003; 87086; 99283

== ENCOUNTER 2017-12-24 10:19 | Emergency (ER) | payer MEDICAID ==
[~2017-12-24] VITALS: Ht 157.5 cm; Wt 78.0 kg
[~2017-12-24 10:19] MED LIST changes: +LEVAQUIN500 MG ORAL
[2017-12-24 10:40] VITALS: BP 161/102
[2017-12-24] MEDS ORDERED: GABAPENTIN600 MG ORAL (10:58)
[2017-12-24 11:32] VITALS: BP 161/102
--- NOTE | 2017-12-24 11:58 | Emergency Room Report ---
History of Present Illness General Chief Complaint: Pain Source: Patient Present Illness HPI 57-year-old female resents ED for evaluation. Complaining of burning pain to her feet last several days. History of diabetic neuropathy. States she takes gabapentin and she ran out of her medication. States that her appointment is at the end of December. Denies any recent injury. Denies any fevers or chills. Denies any weakness. No other aggravating relieving factors. Denies any other associated symptoms Allergies: Coded Allergies: No Known Allergies (Unverified , 07/30/15) Patient History Past Medical History: DM, HTN, asthma, GERD Past Surgical History: none Pertinent Family History: none Social History: Denies: smoking, alcohol use, drug use Now: No Immunizations: UTD Reviewed Nursing Documentation: PMH: Agreed; PSxH: Agreed Nursing Documentation-PMH Hx Cardiac Problems: Yes Hx Hypertension: Yes Hx Asthma: Yes Hx Diabetes: Yes Hx Cancer: No Hx Gastrointestinal Problems: Yes - Gastritis Hx Neurological Problems: No Review of Systems All Other Systems: negative except mentioned in HPI Physical Exam Vital Signs Date Time Temp Pulse Resp B/P (MAP) Pulse Ox O2 Delivery O2 Flow Rate FiO2 12/24/17 10:22 98.3 89 17 161/102 96 Room Air 98.2 Sp02 EP Interpretation: reviewed, normal General Appearance: alert, GCS 15, non-toxic, mild distress Head: normocephalic Eyes: bilateral eye normal inspection, bilateral eye PERRL ENT: normal ENT inspection Neck: normal inspection Respiratory: normal inspection Cardiovascular #1: normal inspection Gastrointestinal: normal inspection Rectal: deferred Genitourinary: no CVA tenderness Musculoskeletal: back normal, gait/station normal, normal range of motion, non- tender 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, oriented x3, responsive, motor strength/tone normal, sensory intact, speech normal Psychiatric: normal inspection Skin: normal inspection Lymphatic: normal inspection Medical Decision Making Diagnostic Impression: Primary Impression: Neuropathy ER Course 57 yo F presents with bilateral foot pain. h/o diabetic neuropathy Differential - fx, dislocation, cellulitis hospital course: After initial history, physical exam reveals a middle-aged female in no acute distress. On exam there is no skin discoloration or abscess or rash. There is no signs of fracture or deformity or discoloration. Sensations are intact Patient has been here several times for treatment of her diabetic neuropathy. Has been prescribed tramadol and gabapentin in the past. I agreed to provide her with one week supply of gabapentin. She needs to see her PMD for further treatment Diagnosis- neuropathy Stable and discharged to home with prescription for Gabapentin. Followup with PMD. Return to ED if symptoms recur or worsen Last Vital Signs Date Time Temp Pulse Resp B/P (MAP) Pulse Ox O2 Delivery O2 Flow Rate FiO2 12/24/17 11:32 98.2 17 161/102 96 Room Air 98.2 12/24/17 10:22 89 Status: improved Disposition: HOME, SELF-CARE Condition: Stable Scripts Gabapentin* (GABAPENTIN*) 600 Mg Tablet 600 MG ORAL THREE TIMES A DAY for 7 Days, TAB Prov: Kavon Younger MD 12/24/17 Referrals: NOT CHOSEN [facility]/,REFERRING (PCP) Patient Instructions: Diabetic Neuropathy Kavon Younger MD Dec 24, 2017 11:58
== END 2017-12-24 11:34 | disposition home or self-care (01) ==
LOC: EMR 10:45
DX: E11.40 Type 2 diabetes mellitus with diabetic neuropathy, unspecified (principal); I10 Essential (primary) hypertension; K21.9 Gastro-esophageal reflux disease without esophagitis; J45.909 Unspecified asthma, uncomplicated
CPT/HCPCS: 99282

== ENCOUNTER 2018-03-30 16:40 | Inpatient (IN) | payer MEDICAID ==
[~2018-03-30] VITALS: Ht 154.9 cm; Wt 81.6 kg
--- NOTE | 2018-03-30 16:55 | NUR ---
ED Nurse Note: Pt came in from home due to L sided abdominal pain that radiates to L flank x 1 week. No n/v/d, patient states that she has been feeling weak. patient is alert and oriented x4, ambulatory with a steady gait, VSS
[2018-03-30] MEDS ORDERED: Morphine Sulfate 4mg/ml Inj (IV/IM USE ONLY) IVP ONE (17:15)
[2018-03-30] MEDS ORDERED: Isovue-300 100ml vial INJ PRN (17:15)
--- NOTE | 2018-03-30 17:32 | Emergency Room Report ---
History of Present Illness General Chief Complaint: Abdominal Pain Source: Patient (Jose Angel Lee) Present Illness HPI 57-year-old female patient presents the ER complaining of abdominal pain for the past week. Reports abdominal pain is sharp and epigastric. Denies diarrhea or vomiting. Reports stomach feels "swollen". Denies constipation. Reports able to pass gas. Denies fever, chest pain, shortness of breath. Denies injury or trauma. Denies taking blood thinner medications. Denies other acute symptoms. Denies drinking or drug use. Denies eating food prior to symptoms onset. (Jose Angel Lee) Allergies: Coded Allergies: No Known Allergies (Unverified , 07/30/15) Patient History Past Medical History: see triage record Now: No Reviewed Nursing Documentation: PMH: Agreed; PSxH: Agreed (Jose Angel Lee) Nursing Documentation-PMH Past Medical History: No History, Except For Hx Cardiac Problems: Yes Hx Hypertension: Yes Hx Asthma: Yes Hx Diabetes: Yes Hx Cancer: No Hx Gastrointestinal Problems: Yes - Gastritis Hx Neurological Problems: No (Jose Angel Lee) Review of Systems All Other Systems: negative except mentioned in HPI (Jose Angel Lee) Physical Exam Vital Signs Date Time Temp Pulse Resp B/P (MAP) Pulse Ox O2 Delivery O2 Flow Rate FiO2 03/30/18 16:43 98.2 115 20 188/97 96 Room Air Sp02 EP Interpretation: reviewed, normal General Appearance: well appearing, no apparent distress, alert, GCS 15, non- toxic Head: normocephalic, atraumatic Eyes: bilateral eye normal inspection, bilateral eye PERRL ENT: hearing grossly normal, normal pharynx, no angioedema, normal voice, uvula midline, moist mucus membranes Neck: full range of motion Respiratory: lungs clear, normal breath sounds, no rhonchi, no respiratory distress, no accessory muscle use, no wheezing, speaking full sentences Cardiovascular #1: regular rate, rhythm, no edema Gastrointestinal: soft, no mass, non-distended, no guarding, no pulsatile mass , no rebound, tenderness - Left upper quadrant, epigastric, other - Negative [place] Genitourinary: no CVA tenderness Musculoskeletal: back normal, digits/nails normal, gait/station normal, normal range of motion, non-tender 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, oriented x3, responsive, motor strength/tone normal, sensory intact Psychiatric: mood/affect normal Skin: no rash (Jose Angel Lee) Medical Decision Making PA Attestation Dr. Hoskins is my supervising Physician whom patient management has been discussed with. (Jose Angel Lee) Diagnostic Impression: Primary Impression: Pancreatitis, acute Qualified Codes: K85.90 - Acute pancreatitis without necrosis or infection, unspecified Additional Impression: Hypokalemia ER Course Pt. presents to the ED c/o abdominal pain and vomiting. Ddx considered but are not limited to UTI, cholelithiasis, cholecystitis, pancreatitis, appendicitis, diverticulitis, constipation, drug use. Begin abdominal pain workup. Provided patient with pain medication. Vital signs: are WNL, pt. is afebrile ORDERS: CBC, CMP, Lipase, UA, CT abdomen pelvis, Zofran, Pepcid and medication. ER COURSE: Provided with morphine for pain and IV fluids. CBC unremarkable CMP shows decreased potassium, provided with IV potassium in the ER, elevated liver enzymes and alk phos Lipase elevated, likely pancreatitis. UA unremarkable, no signs of infection Discuss results with patient CT abdomen and pelvis negative for acute disease. Patient reports relief of pain symptoms with medication. Discuss patient care with Dr. Hoskins, will admit patient for pancreatitis and hypokalemia. Admitted to Dr. Santillan Informed by nurse patient complaining of return of pain symptoms. Provided with second dose of morphine while in the ER. - Please note that this Emergency Department Report was dictated using [employer] technology software, occasionally this can lead to erroneous entry secondary to interpretation by the dictation equipment. Labs Test 03/30/18 17:00 03/30/18 17:30 Urine Color Yellow Urine Appearance Clear Urine pH 6 (4.5-8.0) Urine Specific [place] 1.010 (1.005-1.035) Urine Protein 3+ (NEGATIVE) Urine Glucose (UA) 4+ (NEGATIVE) Urine Ketones Negative (NEGATIVE) Urine Blood Negative (NEGATIVE) Urine Nitrite Negative (NEGATIVE) Urine Bilirubin Negative (NEGATIVE) Urine Urobilinogen 1 MG/DL (0.0-1.0) Urine Leukocyte Esterase 1+ (NEGATIVE) Urine RBC 0-2 /HPF (0 - 2) Urine WBC 2-4 /HPF (0 - 2) Urine Squamous Epithelial Cells Few /LPF (NONE/OCC) Urine Bacteria Few /HPF (NONE) White Blood Count 11.6 K/UL (4.8-10.8) Red Blood Count 4.49 M/UL (4.20-5.40) Hemoglobin 13.3 G/DL (12.0-16.0) Hematocrit 40.1 % (37.0-47.0) Mean Corpuscular Volume 89 FL (80-99) Mean Corpuscular Hemoglobin 29.7 PG (27.0-31.0) Mean Corpuscular Hemoglobin Concent 33.3 G/DL (32.0-36.0) Red Cell Distribution Width 11.3 % (11.6-14.8) Platelet Count 368 K/UL (150-450) Mean Platelet Volume 6.3 FL (6.5-10.1) Neutrophils (%) (Auto) 70.0 % (45.0-75.0) Lymphocytes (%) (Auto) 22.2 % (20.0-45.0) Monocytes (%) (Auto) 4.5 % (1.0-10.0) Eosinophils (%) (Auto) 2.3 % (0.0-3.0) Basophils (%) (Auto) 1.1 % (0.0-2.0) Sodium Level 136 MMOL/L (136-145) Potassium Level 3.0 MMOL/L (3.5-5.1) Chloride Level 96 MMOL/L (98-107) Carbon Dioxide Level 31 MMOL/L (21-32) Anion Gap 9 mmol/L (5-15) Blood Urea Nitrogen 15 mg/dL (7-18) Creatinine 1.1 MG/DL (0.55-1.30) Estimat Glomerular Filtration Rate > 60 mL/min (>60) Glucose Level 379 MG/DL (74-106) Calcium Level 9.1 MG/DL (8.5-10.1) Total Bilirubin 0.5 MG/DL (0.2-1.0) Aspartate Amino Transf (AST/SGOT) 75 U/L (15-37) Alanine Aminotransferase (ALT/SGPT) 91 U/L (12-78) Alkaline Phosphatase 278 U/L (46-116) Total Protein 8.4 G/DL (6.4-8.2) Albumin 3.4 G/DL (3.4-5.0) Globulin 5.0 g/dL Albumin/Globulin Ratio 0.7 (1.0-2.7) Lipase 502 U/L (73-393) (Jose Angel Lee) ER Course Please see above note. The patient was discussed in detail. Due to laboratory abnormalities and continued abdominal pain the patient is admitted medically. The patient was presented to Dr. Santillan who agrees with medical admission. (Evans Hoskins MD) CT/MRI/US Diagnostic Results CT/MRI/US Diagnostic Results : Imaging Test Ordered: CT abdomen pelvis Impression No acute findings (Jose Angel Lee) Last Vital Signs Date Time Temp Pulse Resp B/P (MAP) Pulse Ox O2 Delivery O2 Flow Rate FiO2 03/30/18 16:43 98.2 115 20 188/97 96 Room Air (Jose Angel Lee) Disposition: ADMITTED INPATIENT Condition: Serious Referrals: NON PHYSICIAN (PCP) Jose Angel Lee Mar 30, 2018 17:32 Evans Hoskins MD Apr 01, 2018 05:41
[2018-03-30 17:48] LABS: BASOPHILS % (AUTO) 1.1 % (0.0-2.0); EOSINOPHILS % (AUTO) 2.3 % (0.0-3.0); HEMATOCRIT 40.1 % (37.0-47.0); HEMOGLOBIN 13.3 G/DL (12.0-16.0); LYMPHOCYTES % (AUTO) 22.2 % (20.0-45.0); MEAN CORPUSCULAR VOLUME 89 FL (80-99); MONOCYTES % (AUTO) 4.5 % (1.0-10.0); PLATELET COUNT 368 K/UL (150-450); RED BLOOD COUNT 4.49 M/UL (4.20-5.40); RED CELL DISTRIBUTION WIDTH 11.3 % (11.6-14.8); WHITE BLOOD COUNT 11.6 K/UL (4.8-10.8)
[2018-03-30 17:55] LABS: APPEARANCE,URINE CLEAR; BILIRUBIN, URINE NEGATIVE (NEGATIVE); GLUCOSE, URINE (UA) 4+ (NEGATIVE); KETONES,URINE NEGATIVE (NEGATIVE); LEUKOCYTE ESTERASE ,URINE 1+ (NEGATIVE); NITRITE,URINE NEGATIVE (NEGATIVE); PH,URINE 6 (4.5-8.0); PROTEIN,URINE 3+ (NEGATIVE); UROBILINOGEN,URINE 1 MG/DL (0.0-1.0)
[2018-03-30 17:56] LABS: COLOR,URINE YELLOW
[2018-03-30 18:05] LABS: ANION GAP 9 mmol/L (5-15); BLOOD UREA NITROGEN 15 mg/dL (7-18); CALCIUM 9.1 MG/DL (8.5-10.1); CARBON DIOXIDE 31 MMOL/L (21-32); CHLORIDE 96 MMOL/L (98-107); CREATININE 1.1 MG/DL (0.55-1.30); SODIUM 136 MMOL/L (136-145)
[2018-03-30 18:09] LABS: ALANINE AMINOTRANSFERASE 91 U/L (12-78); ALBUMIN 3.4 G/DL (3.4-5.0); ALBUMIN/GLOBULIN RATIO 0.7 (1.0-2.7); ALKALINE PHOSPHATASE 278 U/L (46-116); ASPARTATE AMINO TRANSFERASE 75 U/L (15-37); BILIRUBIN,TOTAL 0.5 MG/DL (0.2-1.0)
[2018-03-30 19:02] VITALS: BP 152/95
--- NOTE | 2018-03-30 19:06 | Diagnostic Imaging Report ---
EXAM: CT Abdomen and Pelvis With Intravenous Contrast CLINICAL HISTORY: Abdominal Pain TECHNIQUE: Axial computed tomography images of the abdomen and pelvis with intravenous contrast. CTDI is 0.15, 18.16 mGy and DLP is 856 mGy-cm. One or more of the following dose reduction techniques were used: automated exposure control, adjustment of the mA and/or kV according to patient size, use of iterative reconstruction technique. COMPARISON: 04/17/2017 FINDINGS: Lung bases: Unremarkable. No mass. No consolidation. ABDOMEN: Liver: Liver is upper limits of normal in size. No focal hepatic lesions. Gallbladder and bile ducts: Unremarkable. No calcified stones. Pancreas: Unremarkable. Spleen: Unremarkable. Adrenals: Unremarkable. Kidneys and ureters: Unremarkable. No solid mass. No hydronephrosis. Stomach and bowel: Unremarkable. Bowel is nondilated. PELVIS: Appendix: No findings to suggest acute appendicitis. Bladder: Unremarkable. Reproductive: Uterus is absent. ABDOMEN and PELVIS: Intraperitoneal space: Unremarkable. No free air. Bones/joints: No acute osseous abnormality. Degenerative changes of the spine. Soft tissues: Unremarkable. Vasculature: Unremarkable. No abdominal aortic aneurysm. Lymph nodes: Unremarkable. IMPRESSION: No acute findings.
--- NOTE | 2018-03-30 19:08 | NUR ---
HAND-OFF: Report given to JO-ANN Garrett.
--- NOTE | 2018-03-30 19:10 | NUR ---
ED Nurse Note: Received Pt and report from day shift. Knowing Pt will admit to floor, await for the bed open.
[2018-03-30] MEDS ORDERED: Morphine Sulfate 2mg/ml Inj IVP ONE (20:30)
--- NOTE | 2018-03-30 22:03 | NUR ---
ED Nurse Note: Message left to Dr Santillan for admit orders, await for respond back.
[2018-03-30 22:10] VITALS: BP 135/89
--- NOTE | 2018-03-30 22:15 | NUR ---
ED Nurse Note: Admit Pt to 4E room 402-2. Pt is AO x 4times, VSS, on room air no distress. Belongings and skin issue inform to floor nurse. Report given to JO-ANN Maxwell.
--- NOTE | 2018-03-30 22:20 | NUR ---
NURSE NOTES: Received patient from ER via [facility], report given by Gerry BUSCH via phone. Patient is AOx4, no s/s of any distress, complaints of pain on the abdomen, rated 5/10. Patient belongings checked and verified, oriented to room and discussed safety, verbalized understanding. Skin is intact. Bed in low position and locked, call light within reach, will call Dr. Santillan for admission orders. Will continue to monitor.
--- NOTE | 2018-03-30 22:50 | NUR ---
NURSE NOTES: Per Dr. Santillan, dc all home medications.
--- NOTE | 2018-03-30 23:25 | NUR ---
NURSE NOTES: asked patient permission if it's okay with her to have a male family at bedside for patient in bed 1, patient agreed.
[2018-03-30] MEDS: Morphine Sulfate 4mg/ml Inj (IV/IM USE ONLY) IVP PRN (23:37)
[2018-03-31] VITALS (7 sets, daily range): BP systolic 132–182; BP diastolic 75–102
[2018-03-31] MEDS: Morphine Sulfate 4mg/ml Inj (IV/IM USE ONLY) IVP PRN ×4 (05:15→20:44)
[2018-03-31 06:34] LABS: EOSINOPHILS % (AUTO) 5.6 % (0.0-3.0); HEMATOCRIT 35.1 % (37.0-47.0); HEMOGLOBIN 11.5 G/DL (12.0-16.0); LYMPHOCYTES % (AUTO) 30.1 % (20.0-45.0); MEAN CORPUSCULAR VOLUME 90 FL (80-99); MONOCYTES % (AUTO) 4.3 % (1.0-10.0); PLATELET COUNT 329 K/UL (150-450); RED BLOOD COUNT 3.88 M/UL (4.20-5.40); RED CELL DISTRIBUTION WIDTH 11.5 % (11.6-14.8); WHITE BLOOD COUNT 11.7 K/UL (4.8-10.8)
--- NOTE | 2018-03-31 06:40 | NUR ---
NURSE NOTES: Patient is requesting if she can have breathing treatment, she said she's been wheezing a lot, assessed patient breath sounds and noted having wheezing on expiration, notified Dr. Santillan regarding patient request, waiting for callback.
--- NOTE | 2018-03-31 06:43 | General Progress Note ---
Assessment/Plan Problem List: (1) Diabetes mellitus ICD Codes: E11.9 - Type 2 diabetes mellitus without complications SNOMED: 25579264 (2) Pancreatitis, acute ICD Codes: K85.90 - Acute pancreatitis without necrosis or infection, unspecified SNOMED: 430449258 Assessment/Plan add Levemir 12 units daily add Novolog 4 units ac tid - hold if not eating add NISS ac / hs Subjective Allergies: Coded Allergies: No Known Allergies (Unverified , 07/30/15) All Systems: reviewed and negative except above Subjective 57-year-old female patient presents the ER complaining of abdominal pain for the past week. Reports abdominal pain is sharp and epigastric. Denies diarrhea or vomiting. Reports stomach feels "swollen". Denies constipation. Reports able to pass gas. Denies fever, chest pain, shortness of breath. Denies injury or trauma. Denies taking blood thinner medications. Denies other acute symptoms. Denies drinking or drug use. Denies eating food prior to symptoms onset. glucose is 300+ DM is managed with insulin as OP Objective Last 24 Hour Vital Signs Date Time Temp Pulse Resp B/P (MAP) Pulse Ox O2 Delivery O2 Flow Rate FiO2 03/31/18 04:00 97.5 84 19 153/88 (109) 95 03/31/18 00:00 97.3 88 19 132/94 (107) 98 03/30/18 23:07 Room Air 03/30/18 22:15 98.6 98 18 135/89 87 Room Air 87 03/30/18 22:10 98.6 87 18 135/89 87 Room Air 03/30/18 19:02 95 20 Room Air 03/30/18 19:02 98.2 98 20 152/95 96 Room Air 03/30/18 16:43 98.2 115 20 188/97 96 Room Air Intake and Output 03/30/18 03/31/18 19:00 07:00 Intake Total 530 ml Balance 530 ml Intake Oral 50 ml IV Total 480 ml # Voids 4 Laboratory Tests 03/30/18 17:00: Urine Color Yellow, Urine Appearance Clear, Urine pH 6, Urine Specific Rector 1.010, Urine Protein 3+H, Urine Glucose (UA) 4+H, Urine Ketones Negative, Urine Blood Negative, Urine Nitrite Negative, Urine Bilirubin Negative, Urine Urobilinogen 1H, Urine Leukocyte Esterase 1+H, Urine RBC 0-2, Urine WBC 2-4, Urine Squamous Epithelial Cells Few, Urine Bacteria Few 03/30/18 17:30: White Blood Count 11.6H, Red Blood Count 4.49, Hemoglobin 13.3, Hematocrit 40.1 , Mean Corpuscular Volume 89, Mean Corpuscular Hemoglobin 29.7, Mean Corpuscular Hemoglobin Concent 33.3, Red Cell Distribution Width 11.3L, Platelet Count 368, Mean Platelet Volume 6.3L, Neutrophils (%) (Auto) 70.0, Lymphocytes (%) (Auto) 22.2, Monocytes (%) (Auto) 4.5, Eosinophils (%) (Auto) 2.3, Basophils (%) (Auto) 1.1, Sodium Level 136, Potassium Level 3.0L, Chloride Level 96L, Carbon Dioxide Level 31, Anion Gap 9, Blood Urea Nitrogen 15, Creatinine 1.1, Estimat Glomerular Filtration Rate > 60, Glucose Level 379H, Calcium Level 9.1, Total Bilirubin 0.5, Aspartate Amino Transf (AST/SGOT) 75H, Alanine Aminotransferase (ALT/SGPT) 91H, Alkaline Phosphatase 278H, Total Protein 8.4H, Albumin 3.4, Globulin 5.0, Albumin/Globulin Ratio 0.7L, Lipase 502H 03/31/18 05:50: White Blood Count [Pending], Red Blood Count [Pending], Hemoglobin [Pending], Hematocrit [Pending], Mean Corpuscular Volume [Pending], Mean Corpuscular Hemoglobin [Pending], Mean Corpuscular Hemoglobin Concent [Pending], Red Cell Distribution Width [Pending], Platelet Count [Pending], Mean Platelet Volume [ Pending], Neutrophils (%) (Auto) [Pending], Lymphocytes (%) (Auto) [Pending], Monocytes (%) (Auto) [Pending], Eosinophils (%) (Auto) [Pending], Basophils (%) (Auto) [Pending], Sodium Level [Pending], Potassium Level [Pending], Chloride Level [Pending], Carbon Dioxide Level [Pending], Blood Urea Nitrogen [Pending], Creatinine [Pending], Estimat Glomerular Filtration Rate [Pending], Glucose Level [Pending], Calcium Level [Pending], Total Bilirubin [Pending], Aspartate Amino Transf (AST/SGOT) [Pending], Alanine Aminotransferase (ALT/SGPT) [Pending] , Alkaline Phosphatase [Pending], Total Protein [Pending], Albumin [Pending], Globulin [Pending] Height (Feet): 5 Height (Inches): 1.00 Weight (Pounds): 180 General Appearance: no apparent distress Neck: normal alignment Cardiovascular: normal rate Respiratory/Chest: lungs clear Abdomen: normal bowel sounds Pelvis: normal external exam Objective Current Medications Medications (Trade) Dose Ordered Sig/Ivana Route PRN Reason Start Time Stop Time Status Last Admin Dose Admin Morphine Sulfate (Morphine Sulfate) 2 mg Q4H PRN IVP pain 03/30/18 23:30 04/06/18 23:29 03/31/18 05:15 Ondansetron HCl (Zofran) 4 mg Q6H PRN IVP Nausea & Vomiting 03/30/18 23:00 04/29/18 22:59 Sodium Chloride 1,000 ml @ 80 mls/hr [id number] IV 03/30/18 23:15 04/29/18 23:14 03/30/18 23:37 Yosef Woody MD Mar 31, 2018 06:43
[2018-03-31 06:48] LABS: ALANINE AMINOTRANSFERASE 88 U/L (12-78); ALBUMIN/GLOBULIN RATIO 0.7 (1.0-2.7); ALKALINE PHOSPHATASE 182 U/L (46-116); ANION GAP 6 mmol/L (5-15); ASPARTATE AMINO TRANSFERASE 89 U/L (15-37); BILIRUBIN,TOTAL 0.6 MG/DL (0.2-1.0); BLOOD UREA NITROGEN 15 mg/dL (7-18); CALCIUM 8.2 MG/DL (8.5-10.1); CARBON DIOXIDE 30 MMOL/L (21-32); CHLORIDE 100 MMOL/L (98-107); CREATININE 0.9 MG/DL (0.55-1.30); POTASSIUM 3.4 MMOL/L (3.5-5.1); SODIUM 136 MMOL/L (136-145)
--- NOTE | 2018-03-31 07:38 | NUR ---
HAND-OFF: Report given to Kang BUSCH.
--- NOTE | 2018-03-31 07:40 | NUR ---
NURSE NOTES: Received patient in bed, awake, alert and oriented x4. Not in acute respiratory/cardiac distress. Breathing is even and unlabored. Patient is in mild abdominal pain. IV intact, no s/s of infiltration. Bed is in lowest position and locked. Call light and personnel items within reach. Will continue plan of care.
[2018-03-31] MEDS: Levemir Flexpen SUBQ SCH (09:33)
--- NOTE | 2018-03-31 10:00 | NUR ---
NURSE NOTES: Patient noted with a dry cough, runny nose and patient stated that "I was prescribed with allergy medicine and uses inhaler. I do not remember the name of the medicine.I have been had symptoms for a while." Rn spoke to Dr. Mays and relayed consult. Dr. Mays will come and see the patient.Patient is afebrile.
[2018-03-31] MEDS: NovoLOG Insulin Flexpen SUBQ SCH ×5 (11:50→21:03)
--- NOTE | 2018-03-31 12:20 | Consultation ---
History of Present Illness General Date patient seen: Mar 31, 2018 Time patient seen: 12:09 Chief Complaint: Wheezing Referring physician: Omaira lForez MD Reason for Consultation: Asthma Present Illness HPI 57 F non-smoker h/o DM, asthma, HTN, HL, obesity p/w abdominal pain 2/2 mild pancreatitis and with elevated BS, CT AP was unremarkable and she is feeling somewhat better. Pulmonary consultation was called for mild SOB and wheezing, pateint states she uses an albuterol MDI at home. She also c/o cough, congestion, rhinorrhea and myalgias. no F/C. Of note, the patient was here 2017, CT chest showed a 4 x 5 cm R suprahilar cystic mass. This was supposed to be followed up as an outpatient but it was not. Allergies: Coded Allergies: No Known Allergies (Unverified , 07/30/15) Medication History Scheduled Amlodipine Besylate* (Amlodipine Besylate*), 10 MG ORAL DAILY, (Reported) Atenolol* (Tenormin*), 25 MG ORAL BID, (Reported) Doxazosin Mesylate* (Cardura*), 4 MG ORAL DAILY, (Reported) Gabapentin* (Gabapentin*), 600 MG ORAL THREE TIMES A DAY, (Reported) Gabapentin* (Gabapentin*), 600 MG ORAL THREE TIMES A DAY Hum Insulin Nph/Reg Insulin Hm (Novolin 70-30 100 Unit/Ml Vial), 10 SUBQ BEDTIME , (Reported) Hydrochlorothiazide* (Hydrochlorothiazide*), 25 MG ORAL DAILY, (Reported) Levofloxacin* (Levaquin*), 500 MG ORAL DAILY Lisinopril (Lisinopril*), 40 MG ORAL DAILY, (Reported) Scheduled PRN Tramadol Hcl* (Ultram*), 50 MG ORAL Q6H PRN for For Pain Patient History History Provided By: Patient Healthcare decision maker Resuscitation status Full Code Advanced Directive on File No Patient History Narrative As above Past Medical/Surgical History Past Medical/Surgical History: (1) Hyperlipemia (2) Hypertension (3) Asthma (4) Diabetes mellitus Review of Systems Constitutional: Reports: malaise, weakness Eye: Reports: no symptoms ENT: Reports: nose congestion Respiratory: Reports: cough, shortness of breath, wheezing Cardiovascular: Reports: no symptoms Gastrointestinal: Reports: abdominal pain Genitourinary: Reports: no symptoms Musculoskeletal: Reports: muscle pain Skin: Reports: no symptoms Psychiatric: Reports: no symptoms Neurological: Reports: no symptoms Endocrine: Reports: no symptoms Hematologic/Lymphatic: Reports: no symptoms Physical Exam General Appearance: WD/WN, no apparent distress Lines, tubes and drains: peripheral HEENT: normocephalic, atraumatic, anicteric, mucous membranes moist, PERRL Neck: non-tender, normal alignment, supple, normal inspection Respiratory/Chest: chest wall non-tender, lungs clear, normal breath sounds, no respiratory distress, no accessory muscle use Cardiovascular/Chest: normal peripheral pulses, normal rate, regular rhythm Abdomen: normal bowel sounds, non tender, soft, no organomegaly, no mass Extremities: no calf tenderness, no edema, no cyanosis Last 24 Hour Vital Signs Date Time Temp Pulse Resp B/P (MAP) Pulse Ox O2 Delivery O2 Flow Rate FiO2 03/31/18 09:00 Room Air 03/31/18 08:00 98.1 77 19 141/83 (102) 95 03/31/18 04:00 97.5 84 19 153/88 (109) 95 03/31/18 00:00 97.3 88 19 132/94 (107) 98 03/30/18 23:07 Room Air 03/30/18 22:15 98.6 98 18 135/89 87 Room Air 87 03/30/18 22:10 98.6 87 18 135/89 87 Room Air 03/30/18 19:02 95 20 Room Air 03/30/18 19:02 98.2 98 20 152/95 96 Room Air 03/30/18 16:43 98.2 115 20 188/97 96 Room Air Intake and Output 03/30/18 03/31/18 19:00 07:00 Intake Total 610 ml Balance 610 ml Intake Oral 50 ml IV Total 560 ml # Voids 4 Laboratory Tests Test 03/30/18 17:00 03/30/18 17:30 03/31/18 05:50 Urine Color Yellow Urine Appearance Clear Urine pH 6 (4.5-8.0) Urine Specific Callaway 1.010 (1.005-1.035) Urine Protein 3+ (NEGATIVE) H Urine Glucose (UA) 4+ (NEGATIVE) H Urine Ketones Negative (NEGATIVE) Urine Blood Negative (NEGATIVE) Urine Nitrite Negative (NEGATIVE) Urine Bilirubin Negative (NEGATIVE) Urine Urobilinogen 1 MG/DL (0.0-1.0) H Urine Leukocyte Esterase 1+ (NEGATIVE) H Urine RBC 0-2 /HPF (0 - 2) Urine WBC 2-4 /HPF (0 - 2) Urine Squamous Epithelial Cells Few /LPF (NONE/OCC) Urine Bacteria Few /HPF (NONE) White Blood Count 11.6 K/UL (4.8-10.8) H 11.7 K/UL (4.8-10.8) H Red Blood Count 4.49 M/UL (4.20-5.40) 3.88 M/UL (4.20-5.40) L Hemoglobin 13.3 G/DL (12.0-16.0) 11.5 G/DL (12.0-16.0) L Hematocrit 40.1 % (37.0-47.0) 35.1 % (37.0-47.0) L Mean Corpuscular Volume 89 FL (80-99) 90 FL (80-99) Mean Corpuscular Hemoglobin 29.7 PG (27.0-31.0) 29.7 PG (27.0-31.0) Mean Corpuscular Hemoglobin Concent 33.3 G/DL (32.0-36.0) 32.8 G/DL (32.0-36.0) Red Cell Distribution Width 11.3 % (11.6-14.8) L 11.5 % (11.6-14.8) L Platelet Count 368 K/UL (150-450) 329 K/UL (150-450) Mean Platelet Volume 6.3 FL (6.5-10.1) L 6.2 FL (6.5-10.1) L Neutrophils (%) (Auto) 70.0 % (45.0-75.0) 59.0 % (45.0-75.0) Lymphocytes (%) (Auto) 22.2 % (20.0-45.0) 30.1 % (20.0-45.0) Monocytes (%) (Auto) 4.5 % (1.0-10.0) 4.3 % (1.0-10.0) Eosinophils (%) (Auto) 2.3 % (0.0-3.0) 5.6 % (0.0-3.0) H Basophils (%) (Auto) 1.1 % (0.0-2.0) 1.0 % (0.0-2.0) Sodium Level 136 MMOL/L (136-145) 136 MMOL/L (136-145) Potassium Level 3.0 MMOL/L (3.5-5.1) L 3.4 MMOL/L (3.5-5.1) L Chloride Level 96 MMOL/L (98-107) L 100 MMOL/L (98-107) Carbon Dioxide Level 31 MMOL/L (21-32) 30 MMOL/L (21-32) Anion Gap 9 mmol/L (5-15) 6 mmol/L (5-15) Blood Urea Nitrogen 15 mg/dL (7-18) 15 mg/dL (7-18) Creatinine 1.1 MG/DL (0.55-1.30) 0.9 MG/DL (0.55-1.30) Estimat Glomerular Filtration Rate > 60 mL/min (>60) > 60 mL/min (>60) Glucose Level 379 MG/DL (74-106) H 266 MG/DL (74-106) #H Calcium Level 9.1 MG/DL (8.5-10.1) 8.2 MG/DL (8.5-10.1) L Total Bilirubin 0.5 MG/DL (0.2-1.0) 0.6 MG/DL (0.2-1.0) Aspartate Amino Transf (AST/SGOT) 75 U/L (15-37) H 89 U/L (15-37) H Alanine Aminotransferase (ALT/SGPT) 91 U/L (12-78) H 88 U/L (12-78) H Alkaline Phosphatase 278 U/L (46-116) H 182 U/L (46-116) H Total Protein 8.4 G/DL (6.4-8.2) H 7.2 G/DL (6.4-8.2) Albumin 3.4 G/DL (3.4-5.0) 3.0 G/DL (3.4-5.0) L Globulin 5.0 g/dL 4.2 g/dL Albumin/Globulin Ratio 0.7 (1.0-2.7) L 0.7 (1.0-2.7) L Lipase 502 U/L (73-393) H Height (Feet): 5 Height (Inches): 1.00 Weight (Pounds): 180 Medications Current Medications Medications (Trade) Dose Ordered Sig/Ivana Route PRN Reason Start Time Stop Time Status Last Admin Dose Admin Dextrose (Dextrose 50%) 25 ml Q30M PRN IV Hypoglycemia 03/31/18 06:45 04/30/18 06:44 Dextrose (Dextrose 50%) 50 ml Q30M PRN IV Hypoglycemia 03/31/18 06:45 04/30/18 06:44 Insulin Aspart (NovoLOG) BEFORE MEALS AND HS SUBQ 03/31/18 11:30 04/30/18 11:29 Insulin Aspart (NovoLOG) 4 units NOVOTIAC SUBQ 03/31/18 11:50 04/30/18 11:49 Insulin Detemir (Levemir) 12 units DAILY SUBQ 03/31/18 09:00 04/30/18 08:59 03/31/18 09:33 Morphine Sulfate (Morphine Sulfate) 2 mg Q4H PRN IVP pain 03/30/18 23:30 04/06/18 23:29 03/31/18 10:29 Ondansetron HCl (Zofran) 4 mg Q6H PRN IVP Nausea & Vomiting 03/30/18 23:00 04/29/18 22:59 Sodium Chloride 1,000 ml @ 80 mls/hr [id number] IV 03/30/18 23:15 04/29/18 23:14 03/30/18 23:37 Assessment/Plan Problem List: (1) Lung mass ICD Codes: R91.8 - Other nonspecific abnormal finding of lung field SNOMED: 255691234 (2) Bronchitis ICD Codes: J40 - Bronchitis, not specified as acute or chronic SNOMED: 48914630 (3) URI (upper respiratory infection) ICD Codes: J06.9 - Acute upper respiratory infection, unspecified SNOMED: 05052079 (4) Asthma ICD Codes: J45.909 - Unspecified asthma, uncomplicated SNOMED: 625974017 (5) Pancreatitis, acute ICD Codes: K85.90 - Acute pancreatitis without necrosis or infection, unspecified SNOMED: 873899135 (6) Diabetes mellitus ICD Codes: E11.9 - Type 2 diabetes mellitus without complications SNOMED: 20316267 (7) Hyperlipemia ICD Codes: E78.5 - Hyperlipidemia, unspecified SNOMED: 29818513 (8) Hypertension ICD Codes: I10 - Essential (primary) hypertension SNOMED: 41757649 Assessment/Plan Optimize pulmonary hygiene/mobilize as tolerated PRN O2 PRN HHN's PRN Star Mucinex PO Azithro (D1) CXR CT chest with contrast once acute issues resolved to further evaluate suprahilar mass Sputum Cx IVF Monitor BS Pain control/supportive care DVT Px: Hep SQ Angel Mays MD Mar 31, 2018 12:20
[2018-03-31] MEDS ORDERED: Isovue-300 100ml vial INJ PRN (12:30)
[2018-03-31] MEDS ORDERED: guaiFENesin 100mg/5ml Liq ud ORAL PRN (12:30)
[2018-03-31] MEDS ORDERED: Azithromycin 250mg tab ORAL SCH (12:30)
--- NOTE | 2018-03-31 12:54 | NUR ---
RADIOLOGY DEPT CHEST X-RAY DONE-P.DYE
--- NOTE | 2018-03-31 13:28 | Diagnostic Imaging Report ---
Indication: Dyspnea Comparison: 05/11/2017 A single view chest radiograph was obtained. Findings: Abnormal nodular density noted in the right suprahilar region unchanged from the last study. A mass was demonstrated by CT last year 05/11/2017. No infiltrate identified. There are no new findings radiographically. The heart is borderline enlarged. IMPRESSION: No acute findings appreciated. Suggestion of a right suprahilar mass, radiographically stable.
--- NOTE | 2018-03-31 13:50 | NUR ---
NURSE NOTES: Sputum and nasal swab for influenza A&B collected and sent them to lab.
--- NOTE | 2018-03-31 15:51 | NUR ---
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 DENIES N/V/D SI: PANCREATITIS T. 98.3 HR 115 RR 20 B/P 188/97 WBC 11.6 K 3.[address] BAD/PEL= NEGATIVE FOR ACUTE PROCESS CXR= NO ACUTE PROCESS IS: ZOFRAN IV MORPHINE SULFATE IV PEPCID IV IV BOLUS NS X 1 LITER ADMITTED TO MED/SURG MED/SURG STATUS
--- NOTE | 2018-03-31 16:30 | NUR ---
NURSE NOTES: Patient is on NPO and her blood sugar is 169mg/dl. Unable to administer insulin and patient refused insulin injection and said " Blood sugar is not that high and I am not eating. I do not think I need it for now."
--- NOTE | 2018-03-31 17:00 | NUR ---
NURSE NOTES: RN talked to Dr. Santillan and received order for physician consult with Dr. Pérez for constipation and NPO status and Dr. Mccoy for blood pressure. Dr. Pérez will see the patient this evening.
[2018-03-31] MEDS: guaiFENesin ER 600mg tab ORAL SCH (17:32)
--- NOTE | 2018-03-31 19:35 | NUR ---
NURSE NOTES: Received report from Nora Pride RN. Patient A&Ox4, in bed. On room air, no signs of labored breathing. IV intact, patent, and infusing IV fluids. Complains of pain. During rounds, Patient had BP of 182/102. Will notify MD and ask for orders. Bed in lowest position with call light in reach. Will continue with plan of care.
--- NOTE | 2018-03-31 19:55 | NUR ---
HAND-OFF: Report given to Kami.
[2018-03-31] MEDS ORDERED: HydrALAZINE 25mg tab ORAL PRN (20:30)
[2018-03-31] MEDS: Atenolol 25mg tab ORAL SCH (20:41)
[2018-03-31] MEDS: Heparin 5000 units/ml inj SUBQ SCH (20:51)
[2018-04-01] VITALS: BP 156/95
--- NOTE | 2018-04-01 00:42 | History and Physical Report ---
DATE OF ADMISSION: 03/30/2018 HISTORY OF PRESENT ILLNESS: The patient admitted for pancreatitis, hypokalemia, elevated sugar, and elevated LFTs. The patient basically came in complaining of abdominal pain for about a week but mostly epigastric. Denied other associated symptoms. The abdomen was mildly distended. Denies any constipation, diarrhea. Denies shortness of breath. Denies cough. Denies any hematuria. No bleeding from the rectum either. The patient was admitted for pancreatitis, hypokalemia, elevated sugar, and elevated LFTs. PAST MEDICAL HISTORY: NIDDM, hypertension, history of asthma, history of cancer, history of gastritis, history of diabetic neuropathy. FAMILY HISTORY: The patient does have a history of diabetes. SOCIAL HISTORY: Denies history of smoking, alcohol or illicit drugs. MEDICATIONS: Amlodipine, atenolol, Cardura, gabapentin, insulin, lisinopril, tramadol. REVIEW OF SYSTEMS: HEENT: Denies headaches. RESPIRATORY: Denies shortness of breath. Denies cough. CARDIOVASCULAR: Denies chest pain, orthopnea. GASTROINTESTINAL: Abdominal pain for about a week. CARDIOVASCULAR: Denies chest pain. GASTROINTESTINAL: Denies nausea, vomiting, or diarrhea. EXTREMITIES: Denies pain in the lower extremities. CENTRAL NERVOUS SYSTEM: No change in vision or speech pattern. PHYSICAL EXAMINATION: VITAL SIGNS: Temperature 98.1, pulse is 77, blood pressure 141/83. HEENT: PERRLA. NECK: Supple. No lymphadenopathy. CHEST: Clear to auscultation. CARDIOVASCULAR: Regular rate and rhythm. ABDOMEN: Mild epigastric tenderness. No rebound. No organomegaly. EXTREMITIES: No edema. Reflexes are equal on both sides. Moves all four extremities. LABORATORY AND DIAGNOSTIC DATA: WBC of 11.6, hemoglobin of 13.3, platelets 368. Sodium 136, potassium 3, BUN of 15, creatinine 1.1. AST of 74, ALT of 91, total bilirubin 0.5, glucose of 271. Lipase of 502. ASSESSMENT/PLAN: 1. Pancreatitis. 2. Hypokalemia. 3. Elevated sugar and LFTs. I have asked Dr. Pérez, Dr. Ohara, to see the patient for the management of the above-mentioned diagnoses and to help with that. Omaira Santillan M.D. DR: Kathryn JOB#: [id number] CC:
--- NOTE | 2018-04-01 00:42 | Consultation ---
DATE OF CONSULTATION: 03/31/2018 GASTROENTEROLOGY CONSULTATION CONSULTING PHYSICIAN: Feliberto Pérez M.D. CHIEF COMPLAINT: I was asked to see this patient by Dr. Omaira Santillan for evaluation of abdominal issues and possible pancreatitis. HISTORY OF PRESENT ILLNESS: The patient is a pleasant 57-year-old woman, who comes in with a one-week history of abdominal discomfort and bloating. She has not had this problem before and there is no vomiting or diarrhea or other related symptoms. She also feels her abdomen is distended, although she is also obese. She has not had endoscopy or colonoscopy in the past. She is very hungry and she wants to eat, but she has been kept NPO because of mild elevation in her lipase level. She does have diabetes and high blood pressure. PAST MEDICAL HISTORY: History of hypertension, history of diabetes, and history of obesity. MEDICATIONS: See the chart list for details. SOCIAL HISTORY: The patient does not smoke or drink. FAMILY HISTORY: Noncontributory. REVIEW OF SYSTEMS: Otherwise negative. PHYSICAL EXAMINATION: GENERAL: This is a well-developed, obese woman, seen in her room. HEENT: Normocephalic and atraumatic. Sclerae are anicteric. Oropharynx is clear. NECK: Supple. CHEST: Clear to auscultation. CARDIOVASCULAR: Revealed a regular rate. ABDOMEN: Soft, obese with good bowel sounds. There is no tenderness or organomegaly, but there was degree of central obesity that would be appreciable. EXTREMITIES: Revealed no edema. LABORATORY DATA: Laboratory data were noted. ASSESSMENT: This patient presents with vague abdominal discomfort, which is mild and the fact that she feels well and hungry and she wants to eat. Mild elevation of lipase is of unclear significance especially given the negative CT scan and benign abdominal examination. She is being started on clear liquids and her diet can be advanced as tolerated. Her liver tests are mildly elevated, but this is typically due to nonalcoholic steatohepatitis in the setting of obesity and diabetes. I will check her hepatitis serologies and follow her lab tests conservatively. If should elevations worsen, further evaluation is necessary. RECOMMENDATIONS: 1. Begin clear liquid diet. 2. Follow laboratory parameters and exam. 3. Check hepatitis serology. 4. Weight loss. Thank you for asking me to participate in the care of this patient. Feliberto Pérez M.D. DR: SCARLETT JOB#: [id number] CC:
[2018-04-01] MEDS: Morphine Sulfate 4mg/ml Inj (IV/IM USE ONLY) IVP PRN ×5 (01:50→22:25)
[2018-04-01 04:00] VITALS: BP 155/90
[2018-04-01 06:05] LABS: BASOPHILS % (AUTO) 0.9 % (0.0-2.0); EOSINOPHILS % (AUTO) 5.7 % (0.0-3.0); HEMATOCRIT 33.7 % (37.0-47.0); HEMOGLOBIN 11.1 G/DL (12.0-16.0); LYMPHOCYTES % (AUTO) 23.1 % (20.0-45.0); MEAN CORPUSCULAR VOLUME 90 FL (80-99); MONOCYTES % (AUTO) 4.4 % (1.0-10.0); NEUTROPHILS % (AUTO) 65.9 % (45.0-75.0); PLATELET COUNT 312 K/UL (150-450); RED BLOOD COUNT 3.73 M/UL (4.20-5.40); RED CELL DISTRIBUTION WIDTH 11.3 % (11.6-14.8); WHITE BLOOD COUNT 8.8 K/UL (4.8-10.8)
[2018-04-01] MEDS: NovoLOG Insulin Flexpen SUBQ SCH ×7 (06:20→22:13)
[2018-04-01 06:48] LABS: ALANINE AMINOTRANSFERASE 96 U/L (12-78); ALBUMIN/GLOBULIN RATIO 0.7 (1.0-2.7); ALKALINE PHOSPHATASE 150 U/L (46-116); ANION GAP 7 mmol/L (5-15); ASPARTATE AMINO TRANSFERASE 104 U/L (15-37); BILIRUBIN,TOTAL 0.6 MG/DL (0.2-1.0); BLOOD UREA NITROGEN 11 mg/dL (7-18); CALCIUM 7.8 MG/DL (8.5-10.1); CARBON DIOXIDE 28 MMOL/L (21-32); CHLORIDE 99 MMOL/L (98-107); CHOLESTEROL 135 MG/DL (< 200); CREATININE 0.9 MG/DL (0.55-1.30); FERRITIN 292 NG/ML (8-388); GAMMA GLUTAMYL TRANSPEPTIDASE 310 U/L (5-85); HDL CHOLESTEROL 65 MG/DL (40-60); PHOSPHORUS 3.4 MG/DL (2.5-4.9); POTASSIUM 3.4 MMOL/L (3.5-5.1); SODIUM 134 MMOL/L (136-145); TRIGLYCERIDES 82 MG/DL (30-150)
[2018-04-01 07:36] LABS: % IRON SATURATION 37 % (15-50); IRON 138 ug/dL (50-175); TOTAL IRON BINDING CAPACITY 369 ug/dL (250-450)
--- NOTE | 2018-04-01 07:51 | NUR ---
HAND-OFF: Report given to Clair Pride RN.
[2018-04-01 08:00] VITALS: BP 148/88
[2018-04-01] MEDS: guaiFENesin ER 600mg tab ORAL SCH ×2 (09:41→17:08)
[2018-04-01] MEDS: Azithromycin 250mg tab ORAL SCH (09:41)
[2018-04-01] MEDS: Atenolol 25mg tab ORAL SCH ×2 (09:41→17:08)
[2018-04-01] MEDS: Lisinopril 20mg tab ORAL SCH (09:42)
[2018-04-01] MEDS: Levemir Flexpen SUBQ SCH ×2 (09:47→17:11)
[2018-04-01] MEDS: Heparin 5000 units/ml inj SUBQ SCH ×2 (09:47→21:00)
--- NOTE | 2018-04-01 10:00 | NUR ---
NURSE NOTES: pt in bed with no sob nor in any form of distress noted. all due meds given as ordered. denies pain at this time. Iv site intact and patent. breathing regular and unlabored. will continue to monitor
[2018-04-01 12:00] VITALS: BP 111/60
--- NOTE | 2018-04-01 13:34 | Consultation ---
Consult Note Consult Note asked to eval for HTN management PH (1) Hyperlipemia (2) Hypertension (3) Asthma (4) Diabetes mellitus Admitted for acute pancreatitis interviewed examined data reviewed CXR indicative of mass ! Assessment/Plan HTN ooc DM High Cholestrol Pancreatitis - today's Lipase wnl lung mass abnormal LFTs BP meds- BS control Per consultants mag and K supplement per orders Guicho Mccoy MD Apr 01, 2018 13:34
--- NOTE | 2018-04-01 13:42 | NUR ---
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 97.7 HR 82 RR 18 B/P 148/88 NA 134 K 3.4 GGT 310 AST 104 ALT 96 ALK PHOS 150 IS: ZITHROMAX PO HEPARIN SUBC IVF NS @ 80ML/HR MED/SURG STATUS
[2018-04-01] MEDS ORDERED: ALBUTEROL INH PRN ×2 (15:00→15:15)
[2018-04-01] MEDS ORDERED: QVAR 80 MCG INH PRN (15:15)
[2018-04-01 16:00] VITALS: BP 139/80
--- NOTE | 2018-04-01 16:31 | Pulmonology Progress Note ---
Assessment/Plan Problems: (1) Lung mass (2) Bronchitis (3) URI (upper respiratory infection) (4) Asthma (5) Pancreatitis, acute (6) Diabetes mellitus (7) Hyperlipemia (8) Hypertension Assessment/Plan Optimize pulmonary hygiene/mobilize as tolerated PRN O2 PRN HHN's PRN Star Mucinex PO Azithro (D2) CT chest with contrast to further evaluate suprahilar mass IVF, CLD per GI Monitor BS Pain control/supportive care DVT Px: Hep SQ Subjective Allergies: Coded Allergies: No Known Allergies (Unverified , 07/30/15) Subjective AFVSS on RA Less pain isaac CLD no NVDC No CP, no SOB, no wheezing, no FC Objective Last 24 Hour Vital Signs Date Time Temp Pulse Resp B/P (MAP) Pulse Ox O2 Delivery O2 Flow Rate FiO2 04/01/18 12:00 98.0 99 20 111/60 (77) 93 04/01/18 11:12 97.7 04/01/18 09:42 148/88 04/01/18 09:41 85 148/88 04/01/18 09:41 85 148/88 04/01/18 09:00 Room Air 04/01/18 08:00 97.7 85 19 148/88 (108) 93 04/01/18 08:00 82 18 Room Air 21 04/01/18 04:00 97.6 88 20 155/90 (111) 93 04/01/18 00:00 98.0 81 20 156/95 (115) 97 03/31/18 22:00 91 156/95 (115) 03/31/18 21:00 Room Air 03/31/18 20:41 89 182/102 03/31/18 20:41 89 182/102 03/31/18 20:38 88 18 Room Air 21 03/31/18 20:00 98.0 89 18 182/102 (128) 95 Intake and Output 03/31/18 04/01/18 19:00 07:00 Intake Total 960 ml Balance 960 ml IV Total 960 ml # Voids 3 General Appearance: WD/WN, no acute distress HEENT: normocephalic, atraumatic, anicteric, mucous membranes moist Respiratory/Chest: chest wall non-tender, lungs clear, normal breath sounds, no respiratory distress, no accessory muscle use Cardiovascular: normal peripheral pulses, normal rate, regular rhythm Abdomen: normal bowel sounds, soft, non tender, non distended, no mass Extremities: no cyanosis, no clubbing, no edema Microbiology Date/Time Source Procedure Growth Status 03/31/18 15:30 Sputum Gram Stain Pending Resulted 03/31/18 15:30 Sputum Sputum Culture - Preliminary NORMAL UPPER RESPIRATORY GRACE AT 24 ... Resulted 03/31/18 13:30 Nasal Nares Right Influenza Types A,B Antigen (BINDU) - Final Complete Laboratory Tests 04/01/18 05:35: White Blood Count 8.8, Red Blood Count 3.73L, Hemoglobin 11.1L, Hematocrit 33.7L , Mean Corpuscular Volume 90, Mean Corpuscular Hemoglobin 29.9, Mean Corpuscular Hemoglobin Concent 33.1, Red Cell Distribution Width 11.3L, Platelet Count 312, Mean Platelet Volume 6.1L, Neutrophils (%) (Auto) 65.9, Lymphocytes (%) (Auto) 23.1, Monocytes (%) (Auto) 4.4, Eosinophils (%) (Auto) 5.7H, Basophils (%) (Auto) 0.9, Sodium Level 134L, Potassium Level 3.4L, Chloride Level 99, Carbon Dioxide Level 28, Anion Gap 7, Blood Urea Nitrogen 11 , Creatinine 0.9, Estimat Glomerular Filtration Rate > 60, Glucose Level 357H, Hemoglobin A1c 8.9H, Uric Acid 4.4, Calcium Level 7.8L, Phosphorus Level 3.4, Magnesium Level 1.2L, Iron Level 138, Total Iron Binding Capacity 369, Percent Iron Saturation 37, Unsaturated Iron Binding 231, Ferritin 292, Total Bilirubin 0.6, Gamma Glutamyl Transpeptidase 310H, Aspartate Amino Transf (AST/SGOT) 104H , Alanine Aminotransferase (ALT/SGPT) 96H, Alkaline Phosphatase 150H, Troponin I 0.007, C-Reactive Protein, Quantitative < 0.4, Pro-B-Type Natriuretic Peptide 197H, Total Protein 7.3, Albumin 3.0L, Globulin 4.3, Albumin/Globulin Ratio 0.7L , Triglycerides Level 82, Cholesterol Level 135, LDL Cholesterol 65, HDL Cholesterol 65H, Cholesterol/HDL Ratio 2.1L, Lipase 79, Vitamin B12 Level 982, Folate 22.6, Thyroid Stimulating Hormone (TSH) 3.962H, Hepatitis A IgM Antibody [Pending], Hepatitis B Surface Antigen [Pending], Hepatitis B Core IgM Antibody [Pending], Hepatitis C Antibody [Pending] Current Medications Medications (Trade) Dose Ordered Sig/Ivana Route PRN Reason Start Time Stop Time Status Last Admin Dose Admin Albuterol/ Ipratropium (Albuterol/ Ipratropium) 3 ml Q4H PRN HHN Shortness of Breath 03/31/18 12:30 04/05/18 12:29 Amlodipine Besylate (Norvasc) 10 mg DAILY ORAL 03/31/18 20:30 04/30/18 20:29 04/01/18 09:41 Atenolol (Tenormin) 25 mg BID ORAL 03/31/18 20:30 04/30/18 20:29 04/01/18 09:41 Azithromycin (Zithromax) 250 mg DAILY ORAL 04/01/18 09:00 04/08/18 08:59 04/01/18 09:41 Dextrose (Dextrose 50%) 25 ml Q30M PRN IV Hypoglycemia 03/31/18 06:45 04/30/18 06:44 Dextrose (Dextrose 50%) 50 ml Q30M PRN IV Hypoglycemia 03/31/18 06:45 04/30/18 06:44 Guaifenesin (Mucinex ER) 600 mg TWICE A DAY ORAL 03/31/18 18:00 04/30/18 17:59 04/01/18 09:41 Guaifenesin (Robitussin) 100 mg Q4H PRN ORAL For Cough 03/31/18 12:30 04/30/18 12:29 Heparin Sodium (Porcine) (Heparin 5000 units/ml) 5,000 units EVERY 12 HOURS SUBQ 03/31/18 21:00 04/30/18 20:59 Hydralazine HCl (Apresoline) 25 mg Q4H PRN ORAL bp over 160 syst 03/31/18 20:30 04/30/18 20:29 Insulin Aspart (NovoLOG) BEFORE MEALS AND HS SUBQ 03/31/18 11:30 04/30/18 11:29 04/01/18 16:13 Insulin Aspart (NovoLOG) 4 units NOVOTIAC SUBQ 03/31/18 11:50 04/30/18 11:49 04/01/18 16:14 Insulin Detemir (Levemir) 12 units DAILY SUBQ 03/31/18 09:00 04/30/18 08:59 04/01/18 09:47 Iopamidol (Isovue-300 100ml) 100 ml NOW PRN INJ Radiology Procedure 03/31/18 12:30 04/02/18 12:16 Lisinopril (Prinivil) 40 mg DAILY ORAL 04/01/18 09:00 05/01/18 08:59 04/01/18 09:42 Magnesium Sulfate 100 ml @ 100 mls/hr ONCE ONCE IVPB 04/01/18 16:00 04/01/18 16:59 04/01/18 16:06 Morphine Sulfate (Morphine Sulfate) 2 mg Q4H PRN IVP pain 03/30/18 23:30 04/06/18 23:29 04/01/18 10:42 Ondansetron HCl (Zofran) 4 mg Q6H PRN IVP Nausea & Vomiting 03/30/18 23:00 04/29/18 22:59 Pantoprazole (Protonix) 40 mg Q12HR ORAL 03/31/18 21:00 04/30/18 20:59 04/01/18 09:46 Patient Own Medication (Patient's Own Med) 1 ea BID PRN INH Shortness of Breath 04/01/18 15:15 05/01/18 15:14 Patient Own Medication (Patient's Own Med) 2 ea Q4H PRN INH Shortness of Breath 04/01/18 15:15 05/01/18 14:59 Potassium Chloride (K-Dur) 40 meq DAILY ORAL 04/02/18 09:00 05/02/18 08:59 Sodium Chloride 1,000 ml @ 50 mls/hr Q20H IV 04/01/18 13:45 04/29/18 13:44 04/01/18 13:54 Angel Mays MD Apr 01, 2018 16:31
[2018-04-01] MEDS ORDERED: NovoLOG Insulin Flexpen SUBQ SCH (16:50)
--- NOTE | 2018-04-01 19:09 | General Progress Note ---
Assessment/Plan Assessment/Plan Assessment - mild pancreatitis - resolved - abnormal LFT - Hepatitis C Recommendations - advance diet - Needs to follow up as outpatient for HCV eradication Subjective Allergies: Coded Allergies: No Known Allergies (Unverified , 07/30/15) Subjective Feels well no abd pain tolerating clears hungry Objective Last 24 Hour Vital Signs Date Time Temp Pulse Resp B/P (MAP) Pulse Ox O2 Delivery O2 Flow Rate FiO2 04/01/18 18:22 98.0 04/01/18 17:08 99 111/60 04/01/18 16:00 97.3 82 20 139/80 (99) 97 04/01/18 12:00 98.0 99 20 111/60 (77) 93 04/01/18 09:42 148/88 04/01/18 09:41 85 148/88 04/01/18 09:41 85 148/88 04/01/18 09:00 Room Air 04/01/18 08:00 97.7 85 19 148/88 (108) 93 04/01/18 08:00 82 18 Room Air 21 04/01/18 04:00 97.6 88 20 155/90 (111) 93 04/01/18 00:00 98.0 81 20 156/95 (115) 97 03/31/18 22:00 91 156/95 (115) 03/31/18 21:00 Room Air 03/31/18 20:41 89 182/102 03/31/18 20:41 89 182/102 03/31/18 20:38 88 18 Room Air 21 03/31/18 20:00 98.0 89 18 182/102 (128) 95 Intake and Output 03/31/18 04/01/18 18:59 06:59 Intake Total 960 ml Balance 960 ml IV Total 960 ml # Voids 3 Laboratory Tests 04/01/18 05:35: White Blood Count 8.8, Red Blood Count 3.73L, Hemoglobin 11.1L, Hematocrit 33.7L , Mean Corpuscular Volume 90, Mean Corpuscular Hemoglobin 29.9, Mean Corpuscular Hemoglobin Concent 33.1, Red Cell Distribution Width 11.3L, Platelet Count 312, Mean Platelet Volume 6.1L, Neutrophils (%) (Auto) 65.9, Lymphocytes (%) (Auto) 23.1, Monocytes (%) (Auto) 4.4, Eosinophils (%) (Auto) 5.7H, Basophils (%) (Auto) 0.9, Sodium Level 134L, Potassium Level 3.4L, Chloride Level 99, Carbon Dioxide Level 28, Anion Gap 7, Blood Urea Nitrogen 11 , Creatinine 0.9, Estimat Glomerular Filtration Rate > 60, Glucose Level 357H, Hemoglobin A1c 8.9H, Uric Acid 4.4, Calcium Level 7.8L, Phosphorus Level 3.4, Magnesium Level 1.2L, Iron Level 138, Total Iron Binding Capacity 369, Percent Iron Saturation 37, Unsaturated Iron Binding 231, Ferritin 292, Total Bilirubin 0.6, Gamma Glutamyl Transpeptidase 310H, Aspartate Amino Transf (AST/SGOT) 104H , Alanine Aminotransferase (ALT/SGPT) 96H, Alkaline Phosphatase 150H, Troponin I 0.007, C-Reactive Protein, Quantitative < 0.4, Pro-B-Type Natriuretic Peptide 197H, Total Protein 7.3, Albumin 3.0L, Globulin 4.3, Albumin/Globulin Ratio 0.7L , Triglycerides Level 82, Cholesterol Level 135, LDL Cholesterol 65, HDL Cholesterol 65H, Cholesterol/HDL Ratio 2.1L, Lipase 79, Vitamin B12 Level 982, Folate 22.6, Thyroid Stimulating Hormone (TSH) 3.962H, Hepatitis A IgM Antibody [Pending], Hepatitis B Surface Antigen [Pending], Hepatitis B Core IgM Antibody [Pending], Hepatitis C Antibody [Pending] Height (Feet): 5 Height (Inches): 1.00 Weight (Pounds): 180 Objective WDWN NCAT supple CTA RRR Abd soft NT ND no edema non focal Feliberto Pérez MD Apr 01, 2018 19:09
--- NOTE | 2018-04-01 19:32 | NUR ---
HAND-OFF: Report given to JO-ANN Man.
--- NOTE | 2018-04-01 19:35 | NUR ---
NURSE NOTES: Received report from Clair Pride RN. Patient A&Ox4, in bed. On room air, no signs of distress or labored breathing. IV intact, patent, and infusing IV fluids. Expressing controlled pain. Bed in lowest position with call light in reach. Will continue with plan of care.
[2018-04-01 20:00] VITALS: BP 129/69
--- NOTE | 2018-04-01 22:34 | General Progress Note ---
Assessment/Plan Problem List: (1) Pancreatitis, acute ICD Codes: K85.90 - Acute pancreatitis without necrosis or infection, unspecified SNOMED: 816184483 (2) Diabetes mellitus ICD Codes: E11.9 - Type 2 diabetes mellitus without complications SNOMED: 85812280 (3) Hypertension ICD Codes: I10 - Essential (primary) hypertension SNOMED: 46078662 (4) Gastritis ICD Codes: K29.70 - Gastritis, unspecified, without bleeding SNOMED: 2203399 Status: progressing Assessment/Plan chronic shoulder pain pancreatitis is improving diet per gi no nausea dm check sugars Subjective Gastrointestinal/Abdominal: Reports: abdominal pain Allergies: Coded Allergies: No Known Allergies (Unverified , 07/30/15) Objective Last 24 Hour Vital Signs Date Time Temp Pulse Resp B/P (MAP) Pulse Ox O2 Delivery O2 Flow Rate FiO2 04/01/18 20:02 86 18 Room Air 21 04/01/18 18:22 98.0 04/01/18 17:08 99 111/60 04/01/18 16:00 97.3 82 20 139/80 (99) 97 04/01/18 12:00 98.0 99 20 111/60 (77) 93 04/01/18 09:42 148/88 04/01/18 09:41 85 148/88 04/01/18 09:41 85 148/88 04/01/18 09:00 Room Air 04/01/18 08:00 97.7 85 19 148/88 (108) 93 04/01/18 08:00 82 18 Room Air 21 04/01/18 04:00 97.6 88 20 155/90 (111) 93 04/01/18 00:00 98.0 81 20 156/95 (115) 97 Intake and Output 03/31/18 04/01/18 18:59 06:59 Intake Total 960 ml Balance 960 ml IV Total 960 ml # Voids 3 Laboratory Tests 04/01/18 05:35: White Blood Count 8.8, Red Blood Count 3.73L, Hemoglobin 11.1L, Hematocrit 33.7L , Mean Corpuscular Volume 90, Mean Corpuscular Hemoglobin 29.9, Mean Corpuscular Hemoglobin Concent 33.1, Red Cell Distribution Width 11.3L, Platelet Count 312, Mean Platelet Volume 6.1L, Neutrophils (%) (Auto) 65.9, Lymphocytes (%) (Auto) 23.1, Monocytes (%) (Auto) 4.4, Eosinophils (%) (Auto) 5.7H, Basophils (%) (Auto) 0.9, Sodium Level 134L, Potassium Level 3.4L, Chloride Level 99, Carbon Dioxide Level 28, Anion Gap 7, Blood Urea Nitrogen 11 , Creatinine 0.9, Estimat Glomerular Filtration Rate > 60, Glucose Level 357H, Hemoglobin A1c 8.9H, Uric Acid 4.4, Calcium Level 7.8L, Phosphorus Level 3.4, Magnesium Level 1.2L, Iron Level 138, Total Iron Binding Capacity 369, Percent Iron Saturation 37, Unsaturated Iron Binding 231, Ferritin 292, Total Bilirubin 0.6, Gamma Glutamyl Transpeptidase 310H, Aspartate Amino Transf (AST/SGOT) 104H , Alanine Aminotransferase (ALT/SGPT) 96H, Alkaline Phosphatase 150H, Troponin I 0.007, C-Reactive Protein, Quantitative < 0.4, Pro-B-Type Natriuretic Peptide 197H, Total Protein 7.3, Albumin 3.0L, Globulin 4.3, Albumin/Globulin Ratio 0.7L , Triglycerides Level 82, Cholesterol Level 135, LDL Cholesterol 65, HDL Cholesterol 65H, Cholesterol/HDL Ratio 2.1L, Lipase 79, Vitamin B12 Level 982, Folate 22.6, Thyroid Stimulating Hormone (TSH) 3.962H, Hepatitis A IgM Antibody [Pending], Hepatitis B Surface Antigen [Pending], Hepatitis B Core IgM Antibody [Pending], Hepatitis C Antibody [Pending] Height (Feet): 5 Height (Inches): 1.00 Weight (Pounds): 180 Cardiovascular: normal rate Respiratory/Chest: lungs clear Abdomen: tender Omaira Santillan MD Apr 01, 2018 22:33
[2018-04-02] VITALS: BP 148/88
[2018-04-02] MEDS: Albuterol/Ipratropium 3ml neb HHN PRN ×3 (00:15→20:42)
[2018-04-02] MEDS: Morphine Sulfate 4mg/ml Inj (IV/IM USE ONLY) IVP PRN ×5 (02:35→23:54)
[2018-04-02 04:00] VITALS: BP 158/90
[2018-04-02] MEDS: NovoLOG Insulin Flexpen SUBQ SCH ×7 (05:43→21:05)
--- NOTE | 2018-04-02 07:55 | NUR ---
HAND-OFF: Report given to JO-ANN Lugo.
--- NOTE | 2018-04-02 07:58 | NUR ---
NURSE NOTES: Patient alert x4, in room air, patient is getting a breathing treatment in the moring and RT is notified; skin intact; IV Left AC NS at 50cc running; Patient is getting Morphine for pain, will give as ordered; side rails up x2, bed at lowest position, breaks engaged. Family at the bed side. Patient said vomited is the morning, and will give Zofran as ordered. Call light within reach. Will keep monitoring.
[2018-04-02 08:00] VITALS: BP 142/85
[2018-04-02] MEDS: Atenolol 25mg tab ORAL SCH ×2 (08:47→17:16)
[2018-04-02] MEDS: Azithromycin 250mg tab ORAL SCH (08:47)
[2018-04-02] MEDS: guaiFENesin ER 600mg tab ORAL SCH ×2 (08:47→17:16)
[2018-04-02] MEDS: Lisinopril 20mg tab ORAL SCH (08:49)
[2018-04-02] MEDS: Levemir Flexpen SUBQ SCH ×3 (08:53→17:55)
[2018-04-02] MEDS: Heparin 5000 units/ml inj SUBQ SCH ×2 (08:57→21:04)
--- NOTE | 2018-04-02 09:59 | General Progress Note ---
Assessment/Plan Assessment/Plan Assessment/Plan Assessment - mild pancreatitis - resolved - abnormal LFT - Hepatitis C Recommendations - advance diet>> on low fat diet - Needs to follow up as outpatient for HCV eradication Subjective ROS Limited/Unobtainable: Yes Allergies: Coded Allergies: No Known Allergies (Unverified , 07/30/15) Objective Last 24 Hour Vital Signs Date Time Temp Pulse Resp B/P (MAP) Pulse Ox O2 Delivery O2 Flow Rate FiO2 04/02/18 09:20 97.0 04/02/18 09:00 Room Air 04/02/18 08:49 142/85 04/02/18 08:48 86 142/85 04/02/18 08:47 86 142/85 04/02/18 08:21 87 18 96 Room Air 21 04/02/18 08:12 86 20 Room Air 21 04/02/18 08:11 86 18 94 Room Air 21 04/02/18 08:00 97.0 89 20 142/85 (104) 94 04/02/18 04:00 98.5 78 20 158/90 (112) 93 04/02/18 00:26 75 18 99 Room Air 21 04/02/18 00:15 80 18 94 Room Air 21 04/02/18 00:00 98.4 83 22 148/88 (108) 96 04/01/18 21:00 Room Air 04/01/18 20:02 86 18 Room Air 21 04/01/18 20:00 97.7 69 19 129/69 (89) 96 04/01/18 17:08 99 111/60 04/01/18 16:00 97.3 82 20 139/80 (99) 97 04/01/18 12:00 98.0 99 20 111/60 (77) 93 Intake and Output 04/01/18 04/02/18 19:00 07:00 Intake Total 1540 ml 400 ml Balance 1540 ml 400 ml Intake Oral 1140 ml 400 ml IV Total 400 ml # Voids 5 2 Height (Feet): 5 Height (Inches): 1.00 Weight (Pounds): 180 General Appearance: alert EENT: normal ENT inspection Neck: supple Cardiovascular: normal rate Respiratory/Chest: lungs clear Abdomen: normal bowel sounds, non tender, soft Extremities: non-tender Pee Chan MD Apr 02, 2018 09:59
--- NOTE | 2018-04-02 10:39 | Pulmonology Progress Note ---
Assessment/Plan Problems: (1) Lung mass (2) Bronchitis (3) URI (upper respiratory infection) (4) Asthma (5) Pancreatitis, acute (6) Diabetes mellitus (7) Hyperlipemia (8) Hypertension Assessment/Plan Optimize pulmonary hygiene/mobilize as tolerated PRN O2 PRN HHN's PRN Star Mucinex PO Azithro (D3 ) F/U CT chest with contrast to further evaluate suprahilar mass IVF, diet per GI Monitor BS Pain control/supportive care DVT Px: Hep SQ Subjective Allergies: Coded Allergies: No Known Allergies (Unverified , 07/30/15) Subjective AFVSS on RA Less pain isaac diet no NVDC No CP, no SOB, no wheezing, no FC Objective Last 24 Hour Vital Signs Date Time Temp Pulse Resp B/P (MAP) Pulse Ox O2 Delivery O2 Flow Rate FiO2 04/02/18 09:20 97.0 04/02/18 09:00 Room Air 04/02/18 08:49 142/85 04/02/18 08:48 86 142/85 04/02/18 08:47 86 142/85 04/02/18 08:21 87 18 96 Room Air 21 04/02/18 08:12 86 20 Room Air 21 04/02/18 08:11 86 18 94 Room Air 21 04/02/18 08:00 97.0 89 20 142/85 (104) 94 04/02/18 04:00 98.5 78 20 158/90 (112) 93 04/02/18 00:26 75 18 99 Room Air 21 04/02/18 00:15 80 18 94 Room Air 21 04/02/18 00:00 98.4 83 22 148/88 (108) 96 04/01/18 21:00 Room Air 04/01/18 20:02 86 18 Room Air 21 04/01/18 20:00 97.7 69 19 129/69 (89) 96 04/01/18 17:08 99 111/60 04/01/18 16:00 97.3 82 20 139/80 (99) 97 04/01/18 12:00 98.0 99 20 111/60 (77) 93 Intake and Output 04/01/18 04/02/18 19:00 07:00 Intake Total 1540 ml 450 ml Balance 1540 ml 450 ml Intake Oral 1140 ml 400 ml IV Total 400 ml 50 ml # Voids 5 2 General Appearance: WD/WN, no acute distress HEENT: normocephalic, atraumatic, anicteric, mucous membranes moist Respiratory/Chest: chest wall non-tender, lungs clear, normal breath sounds, no respiratory distress, no accessory muscle use Cardiovascular: normal peripheral pulses, normal rate, regular rhythm Abdomen: normal bowel sounds, soft, non tender, no organomegaly, non distended , no mass Extremities: no cyanosis, no clubbing, no edema Microbiology Date/Time Source Procedure Growth Status 03/31/18 15:30 Sputum Gram Stain - Final Complete 03/31/18 15:30 Sputum Sputum Culture - Final NORMAL UPPER RESPIRATORY GRACE AT 48 ... Complete 03/31/18 13:30 Nasal Nares Right Influenza Types A,B Antigen (BINDU) - Final Complete Current Medications Medications (Trade) Dose Ordered Sig/Ivana Route PRN Reason Start Time Stop Time Status Last Admin Dose Admin Albuterol/ Ipratropium (Albuterol/ Ipratropium) 3 ml Q4H PRN HHN Shortness of Breath 03/31/18 12:30 04/05/18 12:29 04/02/18 08:09 Amlodipine Besylate (Norvasc) 10 mg DAILY ORAL 03/31/18 20:30 04/30/18 20:29 04/02/18 08:48 Atenolol (Tenormin) 25 mg BID ORAL 03/31/18 20:30 04/30/18 20:29 04/02/18 08:47 Azithromycin (Zithromax) 250 mg DAILY ORAL 04/01/18 09:00 04/08/18 08:59 04/02/18 08:47 Dextrose (Dextrose 50%) 25 ml Q30M PRN IV Hypoglycemia 03/31/18 06:45 04/30/18 06:44 Dextrose (Dextrose 50%) 50 ml Q30M PRN IV Hypoglycemia 03/31/18 06:45 04/30/18 06:44 Guaifenesin (Mucinex ER) 600 mg TWICE A DAY ORAL 03/31/18 18:00 04/30/18 17:59 04/02/18 08:47 Guaifenesin (Robitussin) 100 mg Q4H PRN ORAL For Cough 03/31/18 12:30 04/30/18 12:29 Heparin Sodium (Porcine) (Heparin 5000 units/ml) 5,000 units EVERY 12 HOURS SUBQ 03/31/18 21:00 04/30/18 20:59 04/02/18 08:57 Hydralazine HCl (Apresoline) 25 mg Q4H PRN ORAL bp over 160 syst 03/31/18 20:30 04/30/18 20:29 Insulin Aspart (NovoLOG) BEFORE MEALS AND HS SUBQ 03/31/18 11:30 04/30/18 11:29 04/01/18 22:13 Insulin Aspart (NovoLOG) 8 units NOVOTIAC SUBQ 04/02/18 06:30 05/02/18 06:29 Insulin Detemir (Levemir) 10 units BID SUBQ 04/01/18 18:00 04/30/18 08:59 04/02/18 09:08 Iopamidol (Isovue-300 100ml) 100 ml NOW PRN INJ Radiology Procedure 03/31/18 12:30 04/02/18 12:16 Lisinopril (Prinivil) 40 mg DAILY ORAL 04/01/18 09:00 05/01/18 08:59 04/02/18 08:49 Morphine Sulfate (Morphine Sulfate) 2 mg Q4H PRN IVP pain 03/30/18 23:30 04/06/18 23:29 04/02/18 08:50 Ondansetron HCl (Zofran) 4 mg Q6H PRN IVP Nausea & Vomiting 03/30/18 23:00 04/29/18 22:59 04/02/18 08:49 Pantoprazole (Protonix) 40 mg Q12HR ORAL 03/31/18 21:00 04/30/18 20:59 04/02/18 08:47 Patient Own Medication (Patient's Own Med) 1 ea BID PRN INH Shortness of Breath 04/01/18 15:15 05/01/18 15:14 04/02/18 09:39 Patient Own Medication (Patient's Own Med) 2 ea Q4H PRN INH Shortness of Breath 04/01/18 15:15 05/01/18 14:59 04/02/18 02:53 Potassium Chloride (K-Dur) 40 meq DAILY ORAL 04/02/18 09:00 05/02/18 08:59 04/02/18 08:48 Sodium Chloride 1,000 ml @ 50 mls/hr Q20H IV 04/01/18 13:45 04/29/18 13:44 04/02/18 08:58 Angel Mays MD Apr 02, 2018 10:39
--- NOTE | 2018-04-02 11:16 | NUR ---
NURSE NOTES: Patient didn't have bowel movement since 03/23/18, I communicated Dr Santillan regarding the matter, and requested if he wanna order anything to help patient to have bowel movement. Waiting for order.
[2018-04-02 12:00] VITALS: BP 111/73
[2018-04-02] MEDS ORDERED: Sorbitol Solution UD 30ml ORAL PRN (12:45)
[2018-04-02] MEDS ORDERED: Sorbitol Solution UD 30ml ORAL SCH (12:45)
--- NOTE | 2018-04-02 13:50 | NUR ---
NURSE NOTES: Patient is able to pass gas after given Sorbitol, will monitor if patient is able to have a bowel movement.
--- NOTE | 2018-04-02 14:10 | Nephrology Progress Note ---
Assessment/Plan Problem List: (1) Hypertension (2) Diabetes mellitus (3) Lung mass (4) Abnormal LFTs Assessment HTN ooc DM High Cholestrol Pancreatitis - today's Lipase wnl lung mass abnormal LFTs Plan BP meds- BS control Per consultants mag and K supplement per orders Subjective ROS Limited/Unobtainable: No Objective Objective Last 24 Hour Vital Signs Date Time Temp Pulse Resp B/P (MAP) Pulse Ox O2 Delivery O2 Flow Rate FiO2 04/02/18 13:31 98.2 04/02/18 12:00 98.2 79 20 111/73 (86) 94 04/02/18 09:00 Room Air 04/02/18 08:49 142/85 04/02/18 08:48 86 142/85 04/02/18 08:47 86 142/85 04/02/18 08:21 87 18 96 Room Air 21 04/02/18 08:12 86 20 Room Air 21 04/02/18 08:11 86 18 94 Room Air 21 04/02/18 08:00 97.0 89 20 142/85 (104) 94 04/02/18 04:00 98.5 78 20 158/90 (112) 93 04/02/18 00:26 75 18 99 Room Air 21 04/02/18 00:15 80 18 94 Room Air 21 04/02/18 00:00 98.4 83 22 148/88 (108) 96 04/01/18 21:00 Room Air 04/01/18 20:02 86 18 Room Air 21 04/01/18 20:00 97.7 69 19 129/69 (89) 96 04/01/18 17:08 99 111/60 04/01/18 16:00 97.3 82 20 139/80 (99) 97 Intake and Output 04/01/18 04/02/18 19:00 07:00 Intake Total 1540 ml 450 ml Balance 1540 ml 450 ml Intake Oral 1140 ml 400 ml IV Total 400 ml 50 ml # Voids 5 2 Height (Feet): 5 Height (Inches): 1.00 Weight (Pounds): 180 General Appearance: no apparent distress Objective no change Guicho Mccoy MD Apr 02, 2018 14:10
--- NOTE | 2018-04-02 15:33 | NUR ---
NURSE NOTES: After given Sorbitol 60cc, patient is able to have a bowel movement.
--- NOTE | 2018-04-02 15:48 | Diagnostic Imaging Report ---
Indication: Chest pain Technique: Continuous helical transaxial imaging of the chest was obtained from the thoracic inlet to the upper abdomen after intravenous nonionic contrast administration. Coronal 2-D reformats were also obtained. Automatic Exposure Control was utilized. Total Dose length Product (DLP): 843.[address] Dose Index Volume (CTDIvol): 25.84 mGy Comparison: CT chest 05/11/2017 Findings: There is an unusual fairly homogeneous nonenhancing soft tissue intensity mass demonstrated within the right hilar and suprahilar region. The mass has a bilobed appearance and is unchanged in size compared to the last study. The right upper lobe is hyperlucent with asymmetrically diminished bronchial vessels compared to the left lung. Relatively normal vascularity noted within the right lung base. This is unchanged. Few calcifications are noted within the mediastinum. This may be due to old granulomatous disease. Visualized part of the upper abdomen is unremarkable. IMPRESSION: No change. Unusual bilobed low-density mass in the right hilum. Etiology uncertain but the findings are unchanged. Differential considerations include bronchogenic or other congenital or esophageal duplication cysts, lymphadenopathy, slow-growing tumor, inflammatory lesions. Hyperlucent right lung which may be associated with the hilar mass. The CT scanner at [facility] is accredited by the [employer] and the scans are performed using dose optimization techniques as appropriate to a performed exam including Automatic Exposure control.
[2018-04-02 16:00] VITALS: BP 132/68
--- NOTE | 2018-04-02 16:51 | NUR ---
NURSE NOTES: Patient's blood is 58 and 50% dextrose given, orang juice and crackers also given. Dr Woody notified, FRANCESCA Black is also aware. Will monitor blood sugar in 15 minutes.
--- NOTE | 2018-04-02 18:07 | NUR ---
NURSE NOTES: Blood sugar monitored after administering of 50% Dextrose, BS 173.
--- NOTE | 2018-04-02 19:53 | NUR ---
HAND-OFF: Report given to JO-ANN Lopez.
--- NOTE | 2018-04-02 19:53 | NUR ---
NURSE NOTES: Pt recieved awake and alert with a visitor at bedside, bed in lowest position, call light within reach, and no complaints of pain, pt is complaining of difficulty breathing, called RT to come to the floor.
[2018-04-02 20:00] VITALS: BP 158/89
--- NOTE | 2018-04-02 23:16 | General Progress Note ---
Assessment/Plan Problem List: (1) Pancreatitis, acute ICD Codes: K85.90 - Acute pancreatitis without necrosis or infection, unspecified SNOMED: 807086192 (2) Diabetes mellitus ICD Codes: E11.9 - Type 2 diabetes mellitus without complications SNOMED: 37508050 (3) Hypertension ICD Codes: I10 - Essential (primary) hypertension SNOMED: 65668570 (4) Gastritis ICD Codes: K29.70 - Gastritis, unspecified, without bleeding SNOMED: 7189790 Status: progressing Assessment/Plan chronic shoulder pain pancreatitis is improving diet per gi dc planning tolerating diet Subjective ROS Limited/Unobtainable: Yes Allergies: Coded Allergies: No Known Allergies (Unverified , 07/30/15) Objective Last 24 Hour Vital Signs Date Time Temp Pulse Resp B/P (MAP) Pulse Ox O2 Delivery O2 Flow Rate FiO2 04/02/18 21:00 Room Air 04/02/18 20:48 94 18 97 Room Air 21 04/02/18 20:40 80 20 92 Room Air 21 04/02/18 20:40 80 20 Room Air 21 04/02/18 20:00 97.7 87 21 158/89 (112) 97 04/02/18 17:46 97.7 04/02/18 17:16 86 132/68 04/02/18 16:00 97.7 86 20 132/68 (89) 94 04/02/18 12:00 98.2 79 20 111/73 (86) 94 04/02/18 09:00 Room Air 04/02/18 08:49 142/85 04/02/18 08:48 86 142/85 04/02/18 08:47 86 142/85 04/02/18 08:21 87 18 96 Room Air 21 04/02/18 08:12 86 20 Room Air 21 04/02/18 08:11 86 18 94 Room Air 21 04/02/18 08:00 97.0 89 20 142/85 (104) 94 04/02/18 04:00 98.5 78 20 158/90 (112) 93 04/02/18 00:26 75 18 99 Room Air 21 04/02/18 00:15 80 18 94 Room Air 21 04/02/18 00:00 98.4 83 22 148/88 (108) 96 Intake and Output 04/01/18 04/02/18 18:59 06:59 Intake Total 1540 ml 400 ml Balance 1540 ml 400 ml Intake Oral 1140 ml 400 ml IV Total 400 ml # Voids 5 2 Laboratory Tests 04/02/18 14:50: C-Reactive Protein, Quantitative < 0.4 Height (Feet): 5 Height (Inches): 1.00 Weight (Pounds): 180 Neck: supple Cardiovascular: normal rate Respiratory/Chest: lungs clear Omaira Santillan MD Apr 02, 2018 23:16
[2018-04-03] VITALS: BP 158/89
[2018-04-03 04:00] VITALS: BP 125/59
[2018-04-03] MEDS: Morphine Sulfate 4mg/ml Inj (IV/IM USE ONLY) IVP PRN ×5 (04:30→22:02)
[2018-04-03 05:48] LABS: BASOPHILS % (AUTO) 2.2 % (0.0-2.0); EOSINOPHILS % (AUTO) 1.4 % (0.0-3.0); HEMOGLOBIN 10.5 G/DL (12.0-16.0); LYMPHOCYTES % (AUTO) 22.7 % (20.0-45.0); MEAN CORPUSCULAR VOLUME 91 FL (80-99); MONOCYTES % (AUTO) 4.9 % (1.0-10.0); NEUTROPHILS % (AUTO) 68.8 % (45.0-75.0); PLATELET COUNT 327 K/UL (150-450); RED BLOOD COUNT 3.51 M/UL (4.20-5.40); RED CELL DISTRIBUTION WIDTH 11.8 % (11.6-14.8); WHITE BLOOD COUNT 9.8 K/UL (4.8-10.8)
[2018-04-03] MEDS: NovoLOG Insulin Flexpen SUBQ SCH ×7 (05:57→21:21)
--- NOTE | 2018-04-03 06:13 | General Progress Note ---
Assessment/Plan Assessment/Plan Assessment/Plan Assessment - mild pancreatitis - resolved - abnormal LFT - Hepatitis C Recommendations - advance diet>> on low fat diet - Needs to follow up as outpatient for HCV eradication Subjective ROS Limited/Unobtainable: Yes Allergies: Coded Allergies: No Known Allergies (Unverified , 07/30/15) Objective Last 24 Hour Vital Signs Date Time Temp Pulse Resp B/P (MAP) Pulse Ox O2 Delivery O2 Flow Rate FiO2 04/03/18 04:00 97.2 96 20 125/59 (81) 92 04/03/18 00:00 97.9 98 20 158/89 (112) 94 04/02/18 21:00 Room Air 04/02/18 20:48 94 18 97 Room Air 21 04/02/18 20:40 80 20 92 Room Air 21 04/02/18 20:40 80 20 Room Air 21 04/02/18 20:00 97.7 87 21 158/89 (112) 97 04/02/18 17:46 97.7 04/02/18 17:16 86 132/68 04/02/18 16:00 97.7 86 20 132/68 (89) 94 04/02/18 12:00 98.2 79 20 111/73 (86) 94 04/02/18 09:00 Room Air 04/02/18 08:49 142/85 04/02/18 08:48 86 142/85 04/02/18 08:47 86 142/85 04/02/18 08:21 87 18 96 Room Air 21 04/02/18 08:12 86 20 Room Air 21 04/02/18 08:11 86 18 94 Room Air 21 04/02/18 08:00 97.0 89 20 142/85 (104) 94 Intake and Output 04/02/18 04/03/18 19:00 07:00 Intake Total 1270 ml 50 ml Balance 1270 ml 50 ml Intake Oral 720 ml IV Total 550 ml 50 ml # Voids 4 Laboratory Tests 04/02/18 14:50: C-Reactive Protein, Quantitative < 0.4 04/03/18 04:50: White Blood Count 9.8, Red Blood Count 3.51L, Hemoglobin 10.5L, Hematocrit 32.0L , Mean Corpuscular Volume 91, Mean Corpuscular Hemoglobin 29.9, Mean Corpuscular Hemoglobin Concent 32.8, Red Cell Distribution Width 11.8, Platelet Count 327, Mean Platelet Volume 5.8L, Neutrophils (%) (Auto) 68.8, Lymphocytes ( %) (Auto) 22.7, Monocytes (%) (Auto) 4.9, Eosinophils (%) (Auto) 1.4, Basophils (%) (Auto) 2.2H, Sodium Level [Pending], Potassium Level [Pending], Chloride Level [Pending], Carbon Dioxide Level [Pending], Blood Urea Nitrogen [Pending], Creatinine [Pending], Estimat Glomerular Filtration Rate [Pending], Glucose Level [Pending], Uric Acid [Pending], Calcium Level [Pending], Phosphorus Level [Pending], Magnesium Level [Pending], Total Bilirubin [Pending], Gamma Glutamyl Transpeptidase [Pending], Aspartate Amino Transf (AST/SGOT) [Pending], Alanine Aminotransferase (ALT/SGPT) [Pending], Alkaline Phosphatase [Pending], Pro-B- Type Natriuretic Peptide [Pending], Total Protein [Pending], Albumin [Pending], Globulin [Pending] Height (Feet): 5 Height (Inches): 1.00 Weight (Pounds): 180 General Appearance: alert EENT: normal ENT inspection Neck: supple Cardiovascular: normal rate Respiratory/Chest: decreased breath sounds Abdomen: normal bowel sounds, non tender, soft Extremities: non-tender Pee Chan MD Apr 03, 2018 06:13
[2018-04-03 06:17] LABS: ALANINE AMINOTRANSFERASE 87 U/L (12-78); ALBUMIN 3.3 G/DL (3.4-5.0); ALBUMIN/GLOBULIN RATIO 0.8 (1.0-2.7); ALKALINE PHOSPHATASE 178 U/L (46-116); ANION GAP 10 mmol/L (5-15); ASPARTATE AMINO TRANSFERASE 70 U/L (15-37); BILIRUBIN,TOTAL 0.6 MG/DL (0.2-1.0); BLOOD UREA NITROGEN 9 mg/dL (7-18); CALCIUM 8.7 MG/DL (8.5-10.1); CARBON DIOXIDE 27 MMOL/L (21-32); CHLORIDE 104 MMOL/L (98-107); CREATININE 0.9 MG/DL (0.55-1.30); GAMMA GLUTAMYL TRANSPEPTIDASE 286 U/L (5-85); PHOSPHORUS 3.2 MG/DL (2.5-4.9); POTASSIUM 4.4 MMOL/L (3.5-5.1); SODIUM 140 MMOL/L (136-145)
--- NOTE | 2018-04-03 07:39 | NUR ---
NURSE NOTES: Patient eating her breakfast sitting on a chair next to her bed, patient was sweating, and PM nurse checked her blood sugar and it say critical lab, orange juice and crackers give, and PM nurse checked blood sugar, it was 76, will keep monitoring blood sugar. Patient in room air, no sign of distress and shortness of breath. No sing of chest pain. Bed at lowest position, breaks engaged and call light within reach. Will keep monitoring.
--- NOTE | 2018-04-03 07:44 | NUR ---
NURSE NOTES: Report given to JO-ANN Westbrook
[2018-04-03 08:00] VITALS: BP 172/97
[2018-04-03] MEDS: Azithromycin 250mg tab ORAL SCH (08:28)
[2018-04-03] MEDS: guaiFENesin ER 600mg tab ORAL SCH ×2 (08:28→17:52)
[2018-04-03] MEDS: Atenolol 25mg tab ORAL SCH (08:29)
[2018-04-03] MEDS: Lisinopril 20mg tab ORAL SCH (08:30)
[2018-04-03] MEDS: Levemir Flexpen SUBQ SCH ×2 (08:32→17:56)
[2018-04-03] MEDS: Heparin 5000 units/ml inj SUBQ SCH ×2 (08:38→21:06)
--- NOTE | 2018-04-03 10:33 | Nephrology Progress Note ---
Assessment/Plan Problem List: (1) Hypertension (2) Diabetes mellitus (3) Lung mass (4) Abnormal LFTs Assessment HTN ooc DM High Cholestrol Pancreatitis - today's Lipase wnl lung mass abnormal LFTs Plan DC IV fluids BP meds adjusted BS control Per consultants mag and K supplement per orders Subjective ROS Limited/Unobtainable: No Constitutional: Reports: malaise Objective Objective Last 24 Hour Vital Signs Date Time Temp Pulse Resp B/P (MAP) Pulse Ox O2 Delivery O2 Flow Rate FiO2 04/03/18 09:13 97.2 04/03/18 09:00 Room Air 04/03/18 08:30 172/97 04/03/18 08:29 94 172/97 04/03/18 08:29 94 172/97 04/03/18 08:20 88 20 Room Air 21 04/03/18 08:00 97.3 94 20 172/97 (122) 93 04/03/18 04:00 97.2 96 20 125/59 (81) 92 04/03/18 00:00 97.9 98 20 158/89 (112) 94 04/02/18 21:00 Room Air 04/02/18 20:48 94 18 97 Room Air 21 04/02/18 20:40 80 20 92 Room Air 21 04/02/18 20:40 80 20 Room Air 21 04/02/18 20:00 97.7 87 21 158/89 (112) 97 04/02/18 17:16 86 132/68 04/02/18 16:00 97.7 86 20 132/68 (89) 94 04/02/18 12:00 98.2 79 20 111/73 (86) 94 Intake and Output 04/02/18 04/03/18 19:00 07:00 Intake Total 1270 ml 170 ml Balance 1270 ml 170 ml Intake Oral 720 ml 120 ml IV Total 550 ml 50 ml # Voids 4 2 Laboratory Tests 04/02/18 14:50: C-Reactive Protein, Quantitative < 0.4 04/03/18 04:50: White Blood Count 9.8, Red Blood Count 3.51L, Hemoglobin 10.5L, Hematocrit 32.0L , Mean Corpuscular Volume 91, Mean Corpuscular Hemoglobin 29.9, Mean Corpuscular Hemoglobin Concent 32.8, Red Cell Distribution Width 11.8, Platelet Count 327, Mean Platelet Volume 5.8L, Neutrophils (%) (Auto) 68.8, Lymphocytes ( %) (Auto) 22.7, Monocytes (%) (Auto) 4.9, Eosinophils (%) (Auto) 1.4, Basophils (%) (Auto) 2.2H, Sodium Level 140, Potassium Level 4.4, Chloride Level 104, Carbon Dioxide Level 27, Anion Gap 10, Blood Urea Nitrogen 9, Creatinine 0.9, Estimat Glomerular Filtration Rate > 60, Glucose Level 113H, Uric Acid 4.8, Calcium Level 8.7, Phosphorus Level 3.2, Magnesium Level 1.7L, Total Bilirubin 0.6, Gamma Glutamyl Transpeptidase 286H, Aspartate Amino Transf (AST/SGOT) 70H, Alanine Aminotransferase (ALT/SGPT) 87H, Alkaline Phosphatase 178H, Pro-B-Type Natriuretic Peptide 2056H, Total Protein 7.6, Albumin 3.3L, Globulin 4.3, Albumin/Globulin Ratio 0.8L Height (Feet): 5 Height (Inches): 1.00 Weight (Pounds): 180 General Appearance: no apparent distress Objective no change Guicho Mccoy MD Apr 03, 2018 10:33
--- NOTE | 2018-04-03 10:35 | Pulmonology Progress Note ---
Assessment/Plan Problems: (1) Lung mass Assessment & Plan: Unusual bilobed R hilar mass, stable since @ least 05/11/17 DDx: bronchogenic cyst vs duplication cs vs slow growing tumor/NAD (2) Bronchitis Assessment & Plan: RESOLVED (3) URI (upper respiratory infection) Assessment & Plan: RESOLVED (4) Asthma Assessment & Plan: STABLE (5) Pancreatitis, acute Assessment & Plan: RESOLVED (6) Diabetes mellitus (7) Hyperlipemia (8) Hypertension Assessment/Plan Optimize pulmonary hygiene/mobilize as tolerated PRN O2 PRN HHN's PRN Star Mucinex PO Azithro (D4/5) CT chest reviewed @ length and d/w patient. Although findings are stable and likely represent a bronchogenic cyst vs duplication cyst, there is the possibility of an underlying neoplasm or other process. This will need to be followed up and the patient will require outpatient pulmonary and cardiothoracic surgery follow up. I have asked the RN to provide the patient with a copy of her imaging on disc. I advised the patient to establish care @ [facility], [facility] or [facility]. I have also placed a SW consult to assist with outpatient follow up. The importance of this was discussed with the patient. She understands that these findings may represent a neoplastic process. She verbalized understanding of the findings and the risk of not following up. F/U GI recs Monitor BS Pain control/supportive care DVT Px: Hep SQ Subjective Allergies: Coded Allergies: No Known Allergies (Unverified , 07/30/15) Subjective AFVSS on RA Melissa PO less pain no NVDC + BM No CP, no SOB, no wheezing, no FC CT chest reviewed Objective Last 24 Hour Vital Signs Date Time Temp Pulse Resp B/P (MAP) Pulse Ox O2 Delivery O2 Flow Rate FiO2 04/03/18 09:13 97.2 04/03/18 09:00 Room Air 04/03/18 08:30 172/97 04/03/18 08:29 94 172/97 04/03/18 08:29 94 172/97 04/03/18 08:20 88 20 Room Air 21 04/03/18 08:00 97.3 94 20 172/97 (122) 93 04/03/18 04:00 97.2 96 20 125/59 (81) 92 04/03/18 00:00 97.9 98 20 158/89 (112) 94 04/02/18 21:00 Room Air 04/02/18 20:48 94 18 97 Room Air 21 04/02/18 20:40 80 20 92 Room Air 21 04/02/18 20:40 80 20 Room Air 21 04/02/18 20:00 97.7 87 21 158/89 (112) 97 04/02/18 17:16 86 132/68 04/02/18 16:00 97.7 86 20 132/68 (89) 94 04/02/18 12:00 98.2 79 20 111/73 (86) 94 Intake and Output 04/02/18 04/03/18 19:00 07:00 Intake Total 1270 ml 170 ml Balance 1270 ml 170 ml Intake Oral 720 ml 120 ml IV Total 550 ml 50 ml # Voids 4 2 General Appearance: WD/WN, no acute distress HEENT: normocephalic, atraumatic, anicteric, mucous membranes moist Respiratory/Chest: chest wall non-tender, lungs clear, normal breath sounds, no respiratory distress, no accessory muscle use Cardiovascular: normal peripheral pulses, normal rate, regular rhythm Abdomen: normal bowel sounds, soft, non tender, no organomegaly, non distended , no mass Extremities: no cyanosis, no clubbing, no edema Microbiology Date/Time Source Procedure Growth Status 03/31/18 15:30 Sputum Gram Stain - Final Complete 03/31/18 15:30 Sputum Sputum Culture - Final NORMAL UPPER RESPIRATORY GRACE AT 48 ... Complete 03/31/18 13:30 Nasal Nares Right Influenza Types A,B Antigen (BINDU) - Final Complete Laboratory Tests 04/02/18 14:50: C-Reactive Protein, Quantitative < 0.4 04/03/18 04:50: White Blood Count 9.8, Red Blood Count 3.51L, Hemoglobin 10.5L, Hematocrit 32.0L , Mean Corpuscular Volume 91, Mean Corpuscular Hemoglobin 29.9, Mean Corpuscular Hemoglobin Concent 32.8, Red Cell Distribution Width 11.8, Platelet Count 327, Mean Platelet Volume 5.8L, Neutrophils (%) (Auto) 68.8, Lymphocytes ( %) (Auto) 22.7, Monocytes (%) (Auto) 4.9, Eosinophils (%) (Auto) 1.4, Basophils (%) (Auto) 2.2H, Sodium Level 140, Potassium Level 4.4, Chloride Level 104, Carbon Dioxide Level 27, Anion Gap 10, Blood Urea Nitrogen 9, Creatinine 0.9, Estimat Glomerular Filtration Rate > 60, Glucose Level 113H, Uric Acid 4.8, Calcium Level 8.7, Phosphorus Level 3.2, Magnesium Level 1.7L, Total Bilirubin 0.6, Gamma Glutamyl Transpeptidase 286H, Aspartate Amino Transf (AST/SGOT) 70H, Alanine Aminotransferase (ALT/SGPT) 87H, Alkaline Phosphatase 178H, Pro-B-Type Natriuretic Peptide 2056H, Total Protein 7.6, Albumin 3.3L, Globulin 4.3, Albumin/Globulin Ratio 0.8L Current Medications Medications (Trade) Dose Ordered Sig/Ivana Route PRN Reason Start Time Stop Time Status Last Admin Dose Admin Albuterol/ Ipratropium (Albuterol/ Ipratropium) 3 ml Q4H PRN HHN Shortness of Breath 03/31/18 12:30 04/05/18 12:29 04/02/18 20:42 Amlodipine Besylate (Norvasc) 10 mg DAILY ORAL 03/31/18 20:30 04/30/18 20:29 04/03/18 08:29 Atenolol (Tenormin) 25 mg BID ORAL 03/31/18 20:30 04/30/18 20:29 04/03/18 08:29 Azithromycin (Zithromax) 250 mg DAILY ORAL 04/01/18 09:00 04/08/18 08:59 04/03/18 08:28 Dextrose (Dextrose 50%) 25 ml Q30M PRN IV Hypoglycemia 03/31/18 06:45 04/30/18 06:44 Dextrose (Dextrose 50%) 50 ml Q30M PRN IV Hypoglycemia 03/31/18 06:45 04/30/18 06:44 04/02/18 18:24 Guaifenesin (Mucinex ER) 600 mg TWICE A DAY ORAL 03/31/18 18:00 04/30/18 17:59 04/03/18 08:28 Guaifenesin (Robitussin) 100 mg Q4H PRN ORAL For Cough 03/31/18 12:30 04/30/18 12:29 Heparin Sodium (Porcine) (Heparin 5000 units/ml) 5,000 units EVERY 12 HOURS SUBQ 03/31/18 21:00 04/30/18 20:59 04/03/18 08:38 Hydralazine HCl (Apresoline) 25 mg Q4H PRN ORAL bp over 160 syst 03/31/18 20:30 04/30/18 20:29 Insulin Aspart (NovoLOG) BEFORE MEALS AND HS SUBQ 03/31/18 11:30 04/30/18 11:29 04/03/18 05:57 Insulin Aspart (NovoLOG) 8 units NOVOTIAC SUBQ 04/02/18 06:30 05/02/18 06:29 04/03/18 06:01 Insulin Detemir (Levemir) 10 units BID SUBQ 04/01/18 18:00 04/30/18 08:59 04/03/18 08:32 Lisinopril (Prinivil) 40 mg DAILY ORAL 04/01/18 09:00 05/01/18 08:59 04/03/18 08:30 Morphine Sulfate (Morphine Sulfate) 2 mg Q4H PRN IVP pain 03/30/18 23:30 04/06/18 23:29 04/03/18 08:43 Ondansetron HCl (Zofran) 4 mg Q6H PRN IVP Nausea & Vomiting 03/30/18 23:00 04/29/18 22:59 04/02/18 08:49 Pantoprazole (Protonix) 40 mg Q12HR ORAL 03/31/18 21:00 04/30/18 20:59 04/03/18 08:41 Patient Own Medication (Patient's Own Med) 1 ea BID PRN INH Shortness of Breath 04/01/18 15:15 05/01/18 15:14 04/02/18 09:39 Patient Own Medication (Patient's Own Med) 2 ea Q4H PRN INH Shortness of Breath 04/01/18 15:15 05/01/18 14:59 04/02/18 02:53 Sorbitol (Sorbitol) 30 ml Q8H PRN ORAL Constipation 04/02/18 12:45 05/02/18 12:44 Angel Mays MD Apr 03, 2018 10:35
--- NOTE | 2018-04-03 11:06 | NUR ---
NURSE NOTES: Patient complains having a head ache, and also patient said, hard time getting sleep night time, and Dr Roche is aware, waiting for order. Addendum: 04/03/18 at 1115 by Brittney Choudhury RN NURSE NOTES: The previous note is by mistake, please, disregard.
--- NOTE | 2018-04-03 11:15 | NUR ---
NURSE NOTES: Patient complains having a head ache and also patient says couldn't sleep well last night and wanna get something to help her with sleep, Dr Santillan notified. Waiting for order.
--- NOTE | 2018-04-03 11:26 | NUR ---
NURSE NOTES: Order received, Tylenol 650 mg PO PRN from Dr Santillan regarding the head ache. Regading the sleep problem, Dr Santillan order to communicate Dr Benjamin. I communicated Dr Benjamin, waiting for order.
[2018-04-03 12:00] VITALS: BP 123/67
--- NOTE | 2018-04-03 12:52 | General Progress Note ---
Assessment/Plan Problem List: (1) Diabetes mellitus ICD Codes: E11.9 - Type 2 diabetes mellitus without complications SNOMED: 00687764 (2) Pancreatitis, acute ICD Codes: K85.90 - Acute pancreatitis without necrosis or infection, unspecified SNOMED: 836950894 Assessment/Plan continue Levemir 10 units bid reduce Novolog to 6 units ac tid continue NISS ac / hs Subjective Allergies: Coded Allergies: No Known Allergies (Unverified , 07/30/15) All Systems: reviewed and negative except above Subjective events noted Objective Last 24 Hour Vital Signs Date Time Temp Pulse Resp B/P (MAP) Pulse Ox O2 Delivery O2 Flow Rate FiO2 04/03/18 12:19 97.2 04/03/18 12:00 97.5 79 19 123/67 (85) 99 04/03/18 09:13 97.2 04/03/18 09:00 Room Air 04/03/18 08:30 172/97 04/03/18 08:29 94 172/97 04/03/18 08:29 94 172/97 04/03/18 08:20 88 20 Room Air 21 04/03/18 08:00 97.3 94 20 172/97 (122) 93 04/03/18 04:00 97.2 96 20 125/59 (81) 92 04/03/18 00:00 97.9 98 20 158/89 (112) 94 04/02/18 21:00 Room Air 04/02/18 20:48 94 18 97 Room Air 21 04/02/18 20:40 80 20 92 Room Air 21 04/02/18 20:40 80 20 Room Air 21 04/02/18 20:00 97.7 87 21 158/89 (112) 97 04/02/18 17:16 86 132/68 04/02/18 16:00 97.7 86 20 132/68 (89) 94 Intake and Output 04/02/18 04/03/18 19:00 07:00 Intake Total 1270 ml 170 ml Balance 1270 ml 170 ml Intake Oral 720 ml 120 ml IV Total 550 ml 50 ml # Voids 4 2 Laboratory Tests 04/02/18 14:50: C-Reactive Protein, Quantitative < 0.4 04/03/18 04:50: White Blood Count 9.8, Red Blood Count 3.51L, Hemoglobin 10.5L, Hematocrit 32.0L , Mean Corpuscular Volume 91, Mean Corpuscular Hemoglobin 29.9, Mean Corpuscular Hemoglobin Concent 32.8, Red Cell Distribution Width 11.8, Platelet Count 327, Mean Platelet Volume 5.8L, Neutrophils (%) (Auto) 68.8, Lymphocytes ( %) (Auto) 22.7, Monocytes (%) (Auto) 4.9, Eosinophils (%) (Auto) 1.4, Basophils (%) (Auto) 2.2H, Sodium Level 140, Potassium Level 4.4, Chloride Level 104, Carbon Dioxide Level 27, Anion Gap 10, Blood Urea Nitrogen 9, Creatinine 0.9, Estimat Glomerular Filtration Rate > 60, Glucose Level 113H, Uric Acid 4.8, Calcium Level 8.7, Phosphorus Level 3.2, Magnesium Level 1.7L, Total Bilirubin 0.6, Gamma Glutamyl Transpeptidase 286H, Aspartate Amino Transf (AST/SGOT) 70H, Alanine Aminotransferase (ALT/SGPT) 87H, Alkaline Phosphatase 178H, Pro-B-Type Natriuretic Peptide 2056H, Total Protein 7.6, Albumin 3.3L, Globulin 4.3, Albumin/Globulin Ratio 0.8L Height (Feet): 5 Height (Inches): 1.00 Weight (Pounds): 180 General Appearance: no apparent distress Neck: normal alignment Cardiovascular: normal rate Respiratory/Chest: lungs clear Abdomen: normal bowel sounds Objective Current Medications Medications (Trade) Dose Ordered Sig/Ivana Route PRN Reason Start Time Stop Time Status Last Admin Dose Admin Acetaminophen (Tylenol) 650 mg Q4H PRN ORAL Mild Pain/Temp > 100.5 04/03/18 11:30 05/03/18 11:29 04/03/18 11:49 Albuterol/ Ipratropium (Albuterol/ Ipratropium) 3 ml Q4H PRN HHN Shortness of Breath 03/31/18 12:30 04/05/18 12:29 04/02/18 20:42 Amlodipine Besylate (Norvasc) 10 mg DAILY ORAL 03/31/18 20:30 04/30/18 20:29 04/03/18 08:29 Atenolol (Tenormin) 50 mg Q12HR ORAL 04/03/18 21:00 05/03/18 20:59 Azithromycin (Zithromax) 250 mg DAILY ORAL 04/01/18 09:00 04/08/18 08:59 04/03/18 08:28 Dextrose (Dextrose 50%) 25 ml Q30M PRN IV Hypoglycemia 03/31/18 06:45 04/30/18 06:44 Dextrose (Dextrose 50%) 50 ml Q30M PRN IV Hypoglycemia 03/31/18 06:45 04/30/18 06:44 04/02/18 18:24 Guaifenesin (Mucinex ER) 600 mg TWICE A DAY ORAL 03/31/18 18:00 04/30/18 17:59 04/03/18 08:28 Guaifenesin (Robitussin) 100 mg Q4H PRN ORAL For Cough 03/31/18 12:30 04/30/18 12:29 Heparin Sodium (Porcine) (Heparin 5000 units/ml) 5,000 units EVERY 12 HOURS SUBQ 03/31/18 21:00 04/30/18 20:59 04/03/18 08:38 Hydralazine HCl (Apresoline) 25 mg Q4H PRN ORAL bp over 160 syst 03/31/18 20:30 04/30/18 20:29 Insulin Aspart (NovoLOG) BEFORE MEALS AND HS SUBQ 03/31/18 11:30 04/30/18 11:29 04/03/18 11:52 Insulin Aspart (NovoLOG) 8 units NOVOTIAC SUBQ 04/02/18 06:30 05/02/18 06:29 04/03/18 11:51 Insulin Detemir (Levemir) 10 units BID SUBQ 04/01/18 18:00 04/30/18 08:59 04/03/18 08:32 Lisinopril (Prinivil) 40 mg DAILY ORAL 04/01/18 09:00 05/01/18 08:59 04/03/18 08:30 Magnesium Sulfate 100 ml @ 100 mls/hr Q1H IVPB 04/03/18 11:00 04/03/18 14:59 04/03/18 11:49 Morphine Sulfate (Morphine Sulfate) 2 mg Q4H PRN IVP pain 03/30/18 23:30 04/06/18 23:29 04/03/18 08:43 Ondansetron HCl (Zofran) 4 mg Q6H PRN IVP Nausea & Vomiting 03/30/18 23:00 04/29/18 22:59 04/02/18 08:49 Pantoprazole (Protonix) 40 mg Q12HR ORAL 03/31/18 21:00 04/30/18 20:59 04/03/18 08:41 Patient Own Medication (Patient's Own Med) 1 ea BID PRN INH Shortness of Breath 04/01/18 15:15 05/01/18 15:14 04/02/18 09:39 Patient Own Medication (Patient's Own Med) 2 ea Q4H PRN INH Shortness of Breath 04/01/18 15:15 05/01/18 14:59 04/02/18 02:53 Sorbitol (Sorbitol) 30 ml Q8H PRN ORAL Constipation 04/02/18 12:45 05/02/18 12:44 Item Value Date Time Bedside Blood Glucose 225 mg/dl H 04/03/18 1152 Bedside Blood Glucose 110 mg/dl 04/03/18 0832 Bedside Blood Glucose 186 mg/dl H 04/03/18 0630 Bedside Blood Glucose 278 mg/dl H 04/02/18 2105 Bedside Blood Glucose 58 mg/dl L 04/02/18 1824 Yosef Woody MD Apr 03, 2018 12:52
--- NOTE | 2018-04-03 13:37 | NUR ---
NURSE NOTES: Magnesium Sulfate running, no sign of distress and shortness of breath. Pain med given as ordered. Will keep monitoring.
--- NOTE | 2018-04-03 14:07 | NUR ---
CASE MANAGEMENT:REVIEW 04/02/18 SI:PANCREATITIS. HEP C 97.7 87 21 158/89 97% ON RA IS: ATENOLOL PO Q12 NOVOLOG SQ TID LEVEMIR SQ BID K-DUR PO QD AZITHROMYCIN PO QD LISINOPRIL PO QD HEPARIN SQ Q12 PROTONIX PO Q12 NORVASC PO QD : MED/SURG STATUS 4 [facility] 04/03/18 SI:PANCREATITIS. HEP C 97.5 79 19 123/67 99% ON RA H/H-10.5/32.0 MAG-1.7 IS: IV MAG SULFATE Q1HRS X4 ATENOLOL PO Q12 NOVOLOG SQ TID LEVEMIR SQ BID K-DUR PO QD AZITHROMYCIN PO QD LISINOPRIL PO QD HEPARIN SQ Q12 PROTONIX PO Q12 NORVASC PO QD : MED/SURG STATUS 4 [facility]
--- NOTE | 2018-04-03 15:14 | General Progress Note ---
Assessment/Plan Problem List: (1) Pancreatitis, acute ICD Codes: K85.90 - Acute pancreatitis without necrosis or infection, unspecified SNOMED: 186308464 (2) Diabetes mellitus ICD Codes: E11.9 - Type 2 diabetes mellitus without complications SNOMED: 86754545 (3) Hypertension ICD Codes: I10 - Essential (primary) hypertension SNOMED: 94356984 (4) Gastritis ICD Codes: K29.70 - Gastritis, unspecified, without bleeding SNOMED: 7963651 Status: progressing Assessment/Plan chronic shoulder pain pancreatitis is improving headache and insomina afebrile tolerating diet Subjective ROS Limited/Unobtainable: Yes Allergies: Coded Allergies: No Known Allergies (Unverified , 07/30/15) Objective Last 24 Hour Vital Signs Date Time Temp Pulse Resp B/P (MAP) Pulse Ox O2 Delivery O2 Flow Rate FiO2 04/03/18 13:56 97.2 04/03/18 12:19 97.2 04/03/18 12:00 97.5 79 19 123/67 (85) 99 04/03/18 09:00 Room Air 04/03/18 08:30 172/97 04/03/18 08:29 94 172/97 04/03/18 08:29 94 172/97 04/03/18 08:20 88 20 Room Air 21 04/03/18 08:00 97.3 94 20 172/97 (122) 93 04/03/18 04:00 97.2 96 20 125/59 (81) 92 04/03/18 00:00 97.9 98 20 158/89 (112) 94 04/02/18 21:00 Room Air 04/02/18 20:48 94 18 97 Room Air 21 04/02/18 20:40 80 20 92 Room Air 21 04/02/18 20:40 80 20 Room Air 21 04/02/18 20:00 97.7 87 21 158/89 (112) 97 04/02/18 17:16 86 132/68 04/02/18 16:00 97.7 86 20 132/68 (89) 94 Intake and Output 04/02/18 04/03/18 19:00 07:00 Intake Total 1270 ml 170 ml Balance 1270 ml 170 ml Intake Oral 720 ml 120 ml IV Total 550 ml 50 ml # Voids 4 2 Laboratory Tests 04/03/18 04:50: White Blood Count 9.8, Red Blood Count 3.51L, Hemoglobin 10.5L, Hematocrit 32.0L , Mean Corpuscular Volume 91, Mean Corpuscular Hemoglobin 29.9, Mean Corpuscular Hemoglobin Concent 32.8, Red Cell Distribution Width 11.8, Platelet Count 327, Mean Platelet Volume 5.8L, Neutrophils (%) (Auto) 68.8, Lymphocytes ( %) (Auto) 22.7, Monocytes (%) (Auto) 4.9, Eosinophils (%) (Auto) 1.4, Basophils (%) (Auto) 2.2H, Sodium Level 140, Potassium Level 4.4, Chloride Level 104, Carbon Dioxide Level 27, Anion Gap 10, Blood Urea Nitrogen 9, Creatinine 0.9, Estimat Glomerular Filtration Rate > 60, Glucose Level 113H, Uric Acid 4.8, Calcium Level 8.7, Phosphorus Level 3.2, Magnesium Level 1.7L, Total Bilirubin 0.6, Gamma Glutamyl Transpeptidase 286H, Aspartate Amino Transf (AST/SGOT) 70H, Alanine Aminotransferase (ALT/SGPT) 87H, Alkaline Phosphatase 178H, Pro-B-Type Natriuretic Peptide 2056H, Total Protein 7.6, Albumin 3.3L, Globulin 4.3, Albumin/Globulin Ratio 0.8L Height (Feet): 5 Height (Inches): 1.00 Weight (Pounds): 180 Cardiovascular: normal rate Respiratory/Chest: lungs clear Abdomen: soft Omaira Santillan MD Apr 03, 2018 15:14
--- NOTE | 2018-04-03 15:50 | NUR ---
NURSE NOTES: Patient want to have chicken broth with fish for dinner, RN called to kitchen. Will follow up on that.
[2018-04-03 16:00] VITALS: BP 158/78
--- NOTE | 2018-04-03 19:16 | NUR ---
HAND-OFF: Report given to JO-ANN Lopez.
--- NOTE | 2018-04-03 19:40 | NUR ---
NURSE NOTES: Pt received awake alert talkative with visitor at bedside, bed in lowest position with no complaints of pain or signs of distress at the moment. call light within reach and able to make needs known.
[2018-04-03 20:00] VITALS: BP 151/78
[2018-04-04] VITALS: BP 154/90
[2018-04-04 04:00] VITALS: BP 124/62
[2018-04-04] MEDS: Morphine Sulfate 4mg/ml Inj (IV/IM USE ONLY) IVP PRN ×2 (04:54→12:14)
--- NOTE | 2018-04-04 05:15 | NUR ---
NURSE NOTES: Left voicemail for Dr. Santillan about patient itching over her body. Endorsed to AM Nurse
[2018-04-04] MEDS: NovoLOG Insulin Flexpen SUBQ SCH ×4 (06:56→11:59)
--- NOTE | 2018-04-04 07:10 | General Progress Note ---
Assessment/Plan Problem List: (1) Diabetes mellitus ICD Codes: E11.9 - Type 2 diabetes mellitus without complications SNOMED: 94514301 (2) Pancreatitis, acute ICD Codes: K85.90 - Acute pancreatitis without necrosis or infection, unspecified SNOMED: 798043656 Assessment/Plan increase Levemir to 14 units bid continue Novolog 6 units ac tid continue NISS ac / hs Subjective Allergies: Coded Allergies: No Known Allergies (Unverified , 07/30/15) All Systems: reviewed and negative except above Subjective events noted Objective Last 24 Hour Vital Signs Date Time Temp Pulse Resp B/P (MAP) Pulse Ox O2 Delivery O2 Flow Rate FiO2 04/04/18 04:00 98.1 85 20 124/62 (82) 93 04/04/18 00:00 97.2 84 20 154/90 (111) 94 04/03/18 21:03 93 151/78 04/03/18 21:00 Room Air 04/03/18 20:31 94 20 Room Air 21 04/03/18 20:00 98.3 93 18 151/78 (102) 95 04/03/18 18:23 97.8 04/03/18 16:00 97.8 78 19 158/78 (104) 93 04/03/18 12:19 97.2 04/03/18 12:00 97.5 79 19 123/67 (85) 99 04/03/18 09:00 Room Air 04/03/18 08:30 172/97 04/03/18 08:29 94 172/97 04/03/18 08:29 94 172/97 04/03/18 08:20 88 20 Room Air 21 04/03/18 08:00 97.3 94 20 172/97 (122) 93 Intake and Output 04/03/18 04/04/18 18:59 06:59 Intake Total 1000 ml Balance 1000 ml Intake Oral 1000 ml # Voids 6 2 # Bowel Movements 1 Height (Feet): 5 Height (Inches): 1.00 Weight (Pounds): 180 General Appearance: no apparent distress Neck: normal alignment Cardiovascular: normal rate Respiratory/Chest: lungs clear Abdomen: normal bowel sounds Pelvis: normal external exam Objective Current Medications Medications (Trade) Dose Ordered Sig/Ivana Route PRN Reason Start Time Stop Time Status Last Admin Dose Admin Acetaminophen (Tylenol) 650 mg Q4H PRN ORAL Mild Pain/Temp > 100.5 04/03/18 11:30 05/03/18 11:29 04/03/18 22:14 Albuterol/ Ipratropium (Albuterol/ Ipratropium) 3 ml Q4H PRN HHN Shortness of Breath 03/31/18 12:30 04/05/18 12:29 04/02/18 20:42 Amlodipine Besylate (Norvasc) 10 mg DAILY ORAL 03/31/18 20:30 04/30/18 20:29 04/03/18 08:29 Atenolol (Tenormin) 50 mg Q12HR ORAL 04/03/18 21:00 05/03/18 20:59 04/03/18 21:03 Azithromycin (Zithromax) 250 mg DAILY ORAL 04/01/18 09:00 04/08/18 08:59 04/03/18 08:28 Dextrose (Dextrose 50%) 25 ml Q30M PRN IV Hypoglycemia 03/31/18 06:45 04/30/18 06:44 Dextrose (Dextrose 50%) 50 ml Q30M PRN IV Hypoglycemia 03/31/18 06:45 04/30/18 06:44 04/02/18 18:24 Guaifenesin (Mucinex ER) 600 mg TWICE A DAY ORAL 03/31/18 18:00 04/30/18 17:59 04/03/18 17:52 Guaifenesin (Robitussin) 100 mg Q4H PRN ORAL For Cough 03/31/18 12:30 04/30/18 12:29 04/03/18 21:04 Heparin Sodium (Porcine) (Heparin 5000 units/ml) 5,000 units EVERY 12 HOURS SUBQ 03/31/18 21:00 04/30/18 20:59 04/03/18 21:06 Hydralazine HCl (Apresoline) 25 mg Q4H PRN ORAL bp over 160 syst 03/31/18 20:30 04/30/18 20:29 Insulin Aspart (NovoLOG) BEFORE MEALS AND HS SUBQ 03/31/18 11:30 04/30/18 11:29 04/04/18 06:56 Insulin Aspart (NovoLOG) 6 units NOVOTIAC SUBQ 04/03/18 16:50 05/02/18 06:29 04/04/18 06:57 Insulin Detemir (Levemir) 10 units BID SUBQ 04/01/18 18:00 04/30/18 08:59 04/03/18 17:56 Lisinopril (Prinivil) 40 mg DAILY ORAL 04/01/18 09:00 05/01/18 08:59 04/03/18 08:30 Morphine Sulfate (Morphine Sulfate) 2 mg Q4H PRN IVP pain 03/30/18 23:30 04/06/18 23:29 04/04/18 04:54 Ondansetron HCl (Zofran) 4 mg Q6H PRN IVP Nausea & Vomiting 03/30/18 23:00 04/29/18 22:59 04/02/18 08:49 Pantoprazole (Protonix) 40 mg Q12HR ORAL 03/31/18 21:00 04/30/18 20:59 04/03/18 21:02 Patient Own Medication (Patient's Own Med) 1 ea BID PRN INH Shortness of Breath 04/01/18 15:15 05/01/18 15:14 04/02/18 09:39 Patient Own Medication (Patient's Own Med) 2 ea Q4H PRN INH Shortness of Breath 04/01/18 15:15 05/01/18 14:59 04/02/18 02:53 Sorbitol (Sorbitol) 30 ml Q8H PRN ORAL Constipation 04/02/18 12:45 05/02/18 12:44 04/03/18 21:04 Item Value Date Time Bedside Blood Glucose 338 mg/dl H 04/04/18 0657 Bedside Blood Glucose 236 mg/dl H 04/03/18 2121 Bedside Blood Glucose 193 mg/dl H 04/03/18 1756 Bedside Blood Glucose 225 mg/dl H 04/03/18 1152 Bedside Blood Glucose 110 mg/dl 04/03/18 0832 Bedside Blood Glucose 186 mg/dl H 04/03/18 0630 Yosef Woody MD Apr 04, 2018 07:10
--- NOTE | 2018-04-04 07:50 | NUR ---
HAND-OFF: Report given to JO-ANN Zavala.
[2018-04-04] MEDS ORDERED: DiphenhydrAMINE 50mg/ml Inj IVP PRN (08:15)
--- NOTE | 2018-04-04 08:39 | NUR ---
NURSE NOTES: DR Santillan called and order received that patient can be discharge today to home,if okay and cleared by Jose, Dr Pérez and prescriptions if needed for antibiotics.
[2018-04-04] MEDS: guaiFENesin ER 600mg tab ORAL SCH (08:59)
[2018-04-04] MEDS: Lisinopril 20mg tab ORAL SCH (09:00)
[2018-04-04] MEDS ORDERED: Levemir Flexpen SUBQ SCH (09:00)
[2018-04-04] MEDS: Azithromycin 250mg tab ORAL SCH (09:01)
[2018-04-04] MEDS: Heparin 5000 units/ml inj SUBQ SCH (09:04)
--- NOTE | 2018-04-04 10:52 | Nephrology Progress Note ---
Assessment/Plan Problem List: (1) Hypertension (2) Diabetes mellitus (3) Lung mass (4) Abnormal LFTs Assessment HTN ooc DM High Cholestrol Pancreatitis - today's Lipase wnl lung mass abnormal LFTs Plan DC IV fluids BP meds adjusted BS control Per consultants mag and K supplement per orders DC planning? Subjective ROS Limited/Unobtainable: No Objective Objective Last 24 Hour Vital Signs Date Time Temp Pulse Resp B/P (MAP) Pulse Ox O2 Delivery O2 Flow Rate FiO2 04/04/18 09:04 89 129/70 04/04/18 09:00 129/70 04/04/18 09:00 89 129/70 04/04/18 08:18 92 20 Room Air 21 04/04/18 04:00 98.1 85 20 124/62 (82) 93 04/04/18 00:00 97.2 84 20 154/90 (111) 94 04/03/18 21:03 93 151/78 04/03/18 21:00 Room Air 04/03/18 20:31 94 20 Room Air 21 04/03/18 20:00 98.3 93 18 151/78 (102) 95 04/03/18 18:23 97.8 04/03/18 16:00 97.8 78 19 158/78 (104) 93 04/03/18 12:19 97.2 04/03/18 12:00 97.5 79 19 123/67 (85) 99 Intake and Output 04/03/18 04/04/18 19:00 07:00 Intake Total 1000 ml Balance 1000 ml Intake Oral 1000 ml # Voids 6 2 # Bowel Movements 1 Current Medications Medications (Trade) Dose Ordered Sig/Ivana Route PRN Reason Start Time Stop Time Status Last Admin Dose Admin Acetaminophen (Tylenol) 650 mg Q4H PRN ORAL Mild Pain/Temp > 100.5 04/03/18 11:30 05/03/18 11:29 04/03/18 22:14 Albuterol/ Ipratropium (Albuterol/ Ipratropium) 3 ml Q4H PRN HHN Shortness of Breath 03/31/18 12:30 04/05/18 12:29 04/02/18 20:42 Amlodipine Besylate (Norvasc) 10 mg DAILY ORAL 03/31/18 20:30 04/30/18 20:29 04/04/18 09:00 Atenolol (Tenormin) 50 mg Q12HR ORAL 04/03/18 21:00 05/03/18 20:59 04/04/18 09:04 Azithromycin (Zithromax) 250 mg DAILY ORAL 04/01/18 09:00 04/08/18 08:59 04/04/18 09:01 Dextrose (Dextrose 50%) 25 ml Q30M PRN IV Hypoglycemia 03/31/18 06:45 04/30/18 06:44 Dextrose (Dextrose 50%) 50 ml Q30M PRN IV Hypoglycemia 03/31/18 06:45 04/30/18 06:44 04/02/18 18:24 Diphenhydramine HCl (Benadryl) 25 mg Q4H PRN IVP Itching 04/04/18 08:15 05/04/18 08:14 Guaifenesin (Mucinex ER) 600 mg TWICE A DAY ORAL 03/31/18 18:00 04/30/18 17:59 04/04/18 08:59 Guaifenesin (Robitussin) 100 mg Q4H PRN ORAL For Cough 03/31/18 12:30 04/30/18 12:29 04/03/18 21:04 Heparin Sodium (Porcine) (Heparin 5000 units/ml) 5,000 units EVERY 12 HOURS SUBQ 03/31/18 21:00 04/30/18 20:59 04/04/18 09:04 Hydralazine HCl (Apresoline) 25 mg Q4H PRN ORAL bp over 160 syst 03/31/18 20:30 04/30/18 20:29 Insulin Aspart (NovoLOG) BEFORE MEALS AND HS SUBQ 03/31/18 11:30 04/30/18 11:29 04/04/18 06:56 Insulin Aspart (NovoLOG) 6 units NOVOTIAC SUBQ 04/03/18 16:50 05/02/18 06:29 04/04/18 06:57 Insulin Detemir (Levemir) 14 units BID SUBQ 04/04/18 09:00 04/30/18 08:59 04/04/18 09:44 Lisinopril (Prinivil) 40 mg DAILY ORAL 04/01/18 09:00 05/01/18 08:59 04/04/18 09:00 Morphine Sulfate (Morphine Sulfate) 2 mg Q4H PRN IVP pain 03/30/18 23:30 04/06/18 23:29 04/04/18 04:54 Ondansetron HCl (Zofran) 4 mg Q6H PRN IVP Nausea & Vomiting 03/30/18 23:00 04/29/18 22:59 04/02/18 08:49 Pantoprazole (Protonix) 40 mg Q12HR ORAL 03/31/18 21:00 04/30/18 20:59 04/04/18 09:00 Patient Own Medication (Patient's Own Med) 1 ea BID PRN INH Shortness of Breath 04/01/18 15:15 05/01/18 15:14 04/02/18 09:39 Patient Own Medication (Patient's Own Med) 2 ea Q4H PRN INH Shortness of Breath 04/01/18 15:15 05/01/18 14:59 04/02/18 02:53 Sorbitol (Sorbitol) 30 ml Q8H PRN ORAL Constipation 04/02/18 12:45 05/02/18 12:44 04/03/18 21:04 Height (Feet): 5 Height (Inches): 1.00 Weight (Pounds): 180 General Appearance: no apparent distress Objective no change Guicho Mccoy MD Apr 04, 2018 10:52
[2018-04-04 12:00] VITALS: BP 141/74
--- NOTE | 2018-04-04 13:15 | NUR ---
Social Service Note SW contacted [facility]. Due to patient not being assigned to a clinic with restricted medi-santiago [facility] was unable to set up an out patient appointment. The recommendation from each clinic is for patient to go to their urgent care centers and obtain a referral for a continue care clinic ([facility]). [facility] 1st floor [address] [place] [address], . Patient to bring disk to urgent care. [facility] provided patient information.
--- NOTE | 2018-04-04 13:23 | Pulmonology Progress Note ---
Assessment/Plan Problems: (1) Lung mass Assessment & Plan: Unusual bilobed R hilar mass, stable since @ least 05/11/17 DDx: bronchogenic cyst vs duplication cs vs slow growing tumor/NAD (2) Bronchitis Assessment & Plan: RESOLVED (3) URI (upper respiratory infection) Assessment & Plan: RESOLVED (4) Asthma Assessment & Plan: STABLE (5) Pancreatitis, acute Assessment & Plan: RESOLVED (6) Diabetes mellitus (7) Hyperlipemia (8) Hypertension Assessment/Plan Optimize pulmonary hygiene/mobilize as tolerated PRN O2 PRN HHN's PRN Star Mucinex Complete PO Azithro (D5/5) CT chest reviewed @ length and d/w patient. Although findings are stable and likely represent a bronchogenic cyst vs duplication cyst, there is the possibility of an underlying neoplasm or other process. This will need to be followed up and the patient will require outpatient pulmonary and cardiothoracic surgery follow up. I have asked the RN to provide the patient with a copy of her imaging on disc. I advised the patient to establish care @ [facility], [facility] or [facility]. I have also placed a SW consult to assist with outpatient follow up. The importance of this was discussed with the patient. She understands that these findings may represent a neoplastic process. She verbalized understanding of the findings and the risk of not following up. F/U GI recs Monitor BS Pain control/supportive care DVT Px: Hep SQ Subjective Allergies: Coded Allergies: No Known Allergies (Unverified , 07/30/15) Subjective AFVSS on RA Melissa PO less pain no NVDC + BM No CP, no SOB, no wheezing, no FC Plan for DC Objective Last 24 Hour Vital Signs Date Time Temp Pulse Resp B/P (MAP) Pulse Ox O2 Delivery O2 Flow Rate FiO2 04/04/18 09:04 89 129/70 04/04/18 09:00 129/70 04/04/18 09:00 89 129/70 04/04/18 08:18 92 20 Room Air 21 04/04/18 04:00 98.1 85 20 124/62 (82) 93 04/04/18 00:00 97.2 84 20 154/90 (111) 94 04/03/18 21:03 93 151/78 04/03/18 21:00 Room Air 1/6/19 20:31 94 20 Room Air 21 04/03/18 20:00 98.3 93 18 151/78 (102) 95 04/03/18 18:23 97.8 04/03/18 16:00 97.8 78 19 158/78 (104) 93 Intake and Output 04/03/18 04/04/18 19:00 07:00 Intake Total 1000 ml Balance 1000 ml Intake Oral 1000 ml # Voids 6 2 # Bowel Movements 1 General Appearance: WD/WN, no acute distress HEENT: normocephalic, atraumatic, anicteric, mucous membranes moist Respiratory/Chest: chest wall non-tender, lungs clear, normal breath sounds, no respiratory distress, no accessory muscle use Cardiovascular: normal peripheral pulses, normal rate, regular rhythm Abdomen: normal bowel sounds, soft, non tender, no organomegaly, non distended , no mass Extremities: no cyanosis, no clubbing, no edema Current Medications Medications (Trade) Dose Ordered Sig/Ivana Route PRN Reason Start Time Stop Time Status Last Admin Dose Admin Acetaminophen (Tylenol) 650 mg Q4H PRN ORAL Mild Pain/Temp > 100.5 04/03/18 11:30 05/03/18 11:29 04/03/18 22:14 Albuterol/ Ipratropium (Albuterol/ Ipratropium) 3 ml Q4H PRN HHN Shortness of Breath 03/31/18 12:30 04/05/18 12:29 04/02/18 20:42 Amlodipine Besylate (Norvasc) 10 mg DAILY ORAL 03/31/18 20:30 04/30/18 20:29 04/04/18 09:00 Atenolol (Tenormin) 50 mg Q12HR ORAL 04/03/18 21:00 05/03/18 20:59 04/04/18 09:04 Azithromycin (Zithromax) 250 mg DAILY ORAL 04/01/18 09:00 04/08/18 08:59 04/04/18 09:01 Dextrose (Dextrose 50%) 25 ml Q30M PRN IV Hypoglycemia 03/31/18 06:45 04/30/18 06:44 Dextrose (Dextrose 50%) 50 ml Q30M PRN IV Hypoglycemia 03/31/18 06:45 04/30/18 06:44 04/02/18 18:24 Diphenhydramine HCl (Benadryl) 25 mg Q4H PRN IVP Itching 04/04/18 08:15 05/04/18 08:14 Guaifenesin (Mucinex ER) 600 mg TWICE A DAY ORAL 03/31/18 18:00 04/30/18 17:59 04/04/18 08:59 Guaifenesin (Robitussin) 100 mg Q4H PRN ORAL For Cough 03/31/18 12:30 04/30/18 12:29 04/03/18 21:04 Heparin Sodium (Porcine) (Heparin 5000 units/ml) 5,000 units EVERY 12 HOURS SUBQ 03/31/18 21:00 04/30/18 20:59 04/04/18 09:04 Hydralazine HCl (Apresoline) 25 mg Q4H PRN ORAL bp over 160 syst 03/31/18 20:30 04/30/18 20:29 Insulin Aspart (NovoLOG) BEFORE MEALS AND HS SUBQ 03/31/18 11:30 04/30/18 11:29 04/04/18 11:58 Insulin Aspart (NovoLOG) 6 units NOVOTIAC SUBQ 04/03/18 16:50 05/02/18 06:29 04/04/18 11:59 Insulin Detemir (Levemir) 14 units BID SUBQ 04/04/18 09:00 04/30/18 08:59 04/04/18 09:44 Lisinopril (Prinivil) 40 mg DAILY ORAL 04/01/18 09:00 05/01/18 08:59 04/04/18 09:00 Morphine Sulfate (Morphine Sulfate) 2 mg Q4H PRN IVP pain 03/30/18 23:30 04/06/18 23:29 04/04/18 12:14 Ondansetron HCl (Zofran) 4 mg Q6H PRN IVP Nausea & Vomiting 03/30/18 23:00 04/29/18 22:59 04/02/18 08:49 Pantoprazole (Protonix) 40 mg Q12HR ORAL 03/31/18 21:00 04/30/18 20:59 04/04/18 09:00 Patient Own Medication (Patient's Own Med) 1 ea BID PRN INH Shortness of Breath 04/01/18 15:15 05/01/18 15:14 04/02/18 09:39 Patient Own Medication (Patient's Own Med) 2 ea Q4H PRN INH Shortness of Breath 04/01/18 15:15 05/01/18 14:59 04/02/18 02:53 Sorbitol (Sorbitol) 30 ml Q8H PRN ORAL Constipation 04/02/18 12:45 05/02/18 12:44 04/03/18 21:04 Angel Mays MD Apr 04, 2018 13:23
--- NOTE | 2018-04-04 15:33 | NUR ---
NURSE NOTES: Patient discharge with discharge instructions given,IV removed,ID hospital; band removed,patient has her personal belongings and own medication retrieved from pharmacy.patient son will take patient home,patient accompany down stairs to private vehicle.patient was cleared by Dr Pérez,DR Shahzad Durham cleared patient.No prescription were given.
--- NOTE | 2018-04-04 16:00 | Consultation ---
DATE OF CONSULTATION: 04/04/2018 INFECTIOUS DISEASES CONSULTATION CONSULTING PHYSICIAN: Anderson Durham M.D. PRIMARY ATTENDING PHYSICIAN: Omaira Santillan M.D. REASON FOR CONSULTATION: Pruritus, acute pancreatitis. HISTORY OF PRESENT ILLNESS: The patient is a 57-year-old female admitted on March 30, 2018 because of epigastric abdominal pain. She was discovered to have elevated lipase and was admitted with pancreatitis. She has also diabetes, complaining of itching and rash. 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 ALLERGIES: No known drug allergies. MEDICATIONS: Levemir insulin, Benadryl, atenolol, Tylenol, sorbitol, azithromycin, lisinopril, heparin, Protonix, Norvasc, hydralazine, insulin Aspart. SOCIAL HISTORY: Lives at home. . No history of alcohol, drug abuse, or smoking. Lives with son. REVIEW OF SYSTEMS: Complaining of rash and itching, has abdominal pain and distention, has constipation. No problem passing urine. Some dry coughing. PHYSICAL EXAMINATION: VITAL SIGNS: Temperature 98.1, pulse 89, blood pressure 129/70. GENERAL APPEARANCE: No acute distress, overweight, obese. HEAD AND NECK: [place] conjunctiva. No oral lesion. HEART: S1 and S2 regular. LUNGS: Clear. Prolonged expiration. ABDOMEN: Soft. There are some bruises at site of heparin injection. EXTREMITIES: No edema. SKIN: I do not see any rash or redness. LABORATORY AND DIAGNOSTIC DATA: Sodium 140, potassium 4.4, chloride 104, bicarb 27, BUN 9, creatinine 0.9, glucose 113. GGT 286. AST 70, ALT 87, alkaline phosphatase 178. TSH was high at 3.962. Serology for hepatitis showed hepatitis C antibody positive. Sputum culture normal greg. Influenza A and B tests are negative. IMPRESSION: 1. Acute pancreatitis, resolving. 2. The patient have elevated LFT, likely secondary to hepatitis C. 3. Diabetes mellitus. 4. Asthma. 5. Itching may be drug induced or result of hepatitis. 6. Chronic lung mass, likely benign. 7. Hypertension. 8. Hyperlipidemia. RECOMMENDATIONS: 1. I agree with discharge plan. 2. Followup for hepatitis C evaluation and treatment. At the end of my examination, I thank Dr. Santillan for involving me in the care of this patient. Anderson Durham M.D. DR: Althea JOB#: [id number] CC:
--- NOTE | 2018-04-04 22:25 | General Progress Note ---
Assessment/Plan Assessment/Plan Assessment - mild pancreatitis - resolved - abnormal LFT - Hepatitis C Recommendations - advance diet - Needs to follow up as outpatient for HCV eradication Subjective Allergies: Coded Allergies: No Known Allergies (Unverified , 07/30/15) Subjective Feels well no abd pain tolerating po Objective Last 24 Hour Vital Signs Date Time Temp Pulse Resp B/P (MAP) Pulse Ox O2 Delivery O2 Flow Rate FiO2 04/04/18 12:00 98.6 82 19 141/74 (96) 94 04/04/18 09:04 89 129/70 04/04/18 09:00 129/70 04/04/18 09:00 89 129/70 04/04/18 09:00 Room Air 04/04/18 08:18 92 20 Room Air 21 04/04/18 04:00 98.1 85 20 124/62 (82) 93 04/04/18 00:00 97.2 84 20 154/90 (111) 94 Intake and Output 04/03/18 04/04/18 19:00 07:00 Intake Total 1000 ml Balance 1000 ml Intake Oral 1000 ml # Voids 6 2 # Bowel Movements 1 Height (Feet): 5 Height (Inches): 1.00 Weight (Pounds): 180 Objective WDWN NCAT supple CTA RRR Abd soft NT ND no edema non focal Feliberto Pérez MD Apr 04, 2018 22:25
--- NOTE | 2018-04-06 08:11 | Discharge Summary ---
Discharge Summary Discharge Summary _ DATE OF ADMISSION: 03/30/2018 DATE OF DISCHARGE: 04/04/2018 95 DISCHARGED BY: Dr. Santillan REASON FOR ADMISSION: 57 years old female with past medical history of diabetes mellitus, asthma, hypertension, hyperlipidemia, obesity, non-smoker, presented to emergency department complaining of abdominal pain for the past week. Abdominal pain described as sharp and epigastric. Patient denied diarrhea and vomiting. Patient denied constipation. Patient was able to pass gas. No fever ,no chills. No chest pain or shortness of breath. No trauma or injury. Upon evaluation vital signs revealed elevated blood pressure 188/97. Laboratory workup revealed mild leukocytosis WBC 11.3 ,stable hemoglobin hematocrit. Potassium 3.0. Glucose 379. AST 75, ALT 91, alkaline phosphatase 278. Lipase 502 CT scan of the abdomen and pelvis was unremarkable. Patient was admitted with diagnoses of acute mild pancreatitis, hypokalemia, hyperglycemia secondary to diabetes mellitus , elevated LFT, hypertension out of control. CONSULTANTS: pulmonary ID specialist Dr. Tripathi GI specialist Dr. Villafuerte industrial cook Dr. Mccoy fiberglasser Dr. Woody [facility] COURSE: Patient admitted to medical surgical floor, started on IV fluids and kept n.p.o. GI specialist closely followed. Potassium was replaced. Potassium 4.4 prior to discharge, magnesium replaced. LFT were closely monitored. Hepatitis panel revealed evidence of hepatitis C infection. Lipase down to normal 79. Patient slowly started on diet and was advanced as tolerated. Antiemetic were on board as needed. Bowel regimen instituted. Patient was able to tolerate diet. Furnace Mechanic followed. Blood sugar was managed with long-acting Levemir, pre-meal short-acting NovoLog and sliding scale of insulin as needed. Blood sugar stabilized. Hemoglobin A1c 8.9, clearly not at goal. Patient will need further optimization of anti-glycemic regimen as outpatient. Patient was counseled on compliance with diabetic diet and anti-glycemic regimen and need for routine follow-up with a primary care for improvement in blood sugar management. Photo Tech followed. Renal parameters and electrolytes were closely monitored. Electrolytes corrected as needed. Nephrotoxins were avoided. IV fluids stopped when patient tolerated diet. Antihypertensive medication regimen was optimized to keep blood pressure under control. Blood pressure was managed with beta-rusty , calcium channel rusty and KIMBERLY inhibitor. DVT and GI prophylaxis provided. Lipid panel was stable. Prenatal Teacher followed, since patient complained of cough, congestion , rhinorrhea and myalgia along with wheezing and mild shortness of breath. In April 2017 CT of the chest revealed suprahilar cystic mass 4 x 5 cm. The patient was supposed to follow-up as outpatient , however she failed to do it. CT of the chest subsequently was repeated and revealed unusual bilobed low- density mass in the right hilum. Etiology uncertain but the findings were unchanged. Differential considerations included bronchogenic or other congenital or esophageal duplication cysts, lymphadenopathy, slow-growing tumor, inflammatory lesions. Hyperlucent right lung which may be associated with the hilar mass. Supplemental oxygen provided as needed to keep pulse oximetry above 92%. Pulmonary toilet provided as needed. Antitussive are on board as needed along with routine Mucinex. Patient completed Zithromax. Findings of the CT scan were reviewed at length and discussed with the patient. There was still a possibility of underlying neoplasm or other process. Patient will require outpatient pulmonary and cardiothoracic surgery to follow. Patient was provided with copy of her imaging on disc. Patient will need to establish care at [facility], [facility] or [facility]. The importance of follow-up was discussed with the patient. Patient verbalized understanding of the findings and the risks of not following up. Infectious disease specialist followed. Patient undergone treatment with empiric antibiotic for bronchitis. Patient was recommended to follow-up with for hepatitis C evaluation and further management. Abdominal pain resolved. Electrolytes corrected. Patient was able to tolerate diet. Blood sugar stabilized. Respiratory status stable. Patient will need to follow-up with the credit portfolio manager and cardiothoracic surgeon as outpatient , which was discussed with patient extensively by credit portfolio manager. fast food worker discussed with [facility] possibility to set up an appointment. The recommendation was for patient to go to urgent care center and obtain a referral for continued care clinic. Patient was provided information on urgent care ([facility] 1st floor [address] [place] [id number], ). Patient will need to bring the disc with copy of her scan to urgent care. Patient was stable for discharge. FINAL DIAGNOSES: Mild acute pancreatitis Lung mass Bronchitis Upper respiratory infection Asthma Hypertension , out of control due to hypertensive urgency Abnormal LFT likely due to hepatitis C infection Hyperglycemia associated with diabetes mellitus Electrolyte abnormalities : hypokalemia, hypomagnesemia DISCHARGE MEDICATIONS: See Medication Reconciliation list. DISCHARGE INSTRUCTIONS: Patient was discharged home . Follow up with urgent care in one week to establish care at continued care clinic. I have been assigned to dictate discharge summary for this account. I was not involved in the patient's management. Maria G Nolasco NP Apr 06, 2018 08:11
== END 2018-04-04 16:00 | disposition home or self-care (01) | DRG 282 ==
LOC: EMR 17:08 → 4E 19:01 → EDBEDREQ 19:52 → 4E 04-01 12:00
DX: K85.90 Acute pancreatitis without necrosis or infection, unspecified (principal); E11.65 Type 2 diabetes mellitus with hyperglycemia; I16.0 Hypertensive urgency; J40 Bronchitis, not specified as acute or chronic; R91.8 Other nonspecific abnormal finding of lung field; J06.9 Acute upper respiratory infection, unspecified; J45.909 Unspecified asthma, uncomplicated; E87.6 Hypokalemia; E83.42 Hypomagnesemia; E78.5 Hyperlipidemia, unspecified; E66.9 Obesity, unspecified; Z79.4 Long term (current) use of insulin; K29.70 Gastritis, unspecified, without bleeding; B19.20 Unspecified viral hepatitis C without hepatic coma
CPT/HCPCS: 36415; 71045; 71260; 74177; 80053; 80061; 81003; 82607; 82728; 82746; 82962; 82977; 83036; 83540; 83550; 83690; 83735; 83880; 84100; 84443; 84484; 84550; 85025; 86140; 86705; 86709; 86710; 86803; 87070; 87205; 87340; 94640; 94664; 96361; 96365; 96375; 96376; 99285; J1815; J2405; J7620; J8499; S5561

== ENCOUNTER 2018-08-24 17:02 | Inpatient (IN) | payer MEDICAID ==
[~2018-08-24] VITALS: Ht 154.9 cm; Wt 79.8 kg
[~2018-08-24 17:02] MED LIST changes: +NOVOLIN 70100 UNIT/1
--- NOTE | 2018-08-24 17:24 | NUR ---
ED Nurse Note: PT WALKED IN TO ER TODAY FROM HOME. AOX4. PT C/O DIZZINESS AND WEAKNESS X YESTERDAY. PT ALSO C/O BILATERAL BACK PAIN, 01/05, X YESTERDAY. PT DENIES ANY RECENT TRAUMA OR INJURY. PT DENIES NAUSEA OR VOMITING. GAIT STEADY IN ER. VSS.
[2018-08-24 17:26] VITALS: BP 130/66
[2018-08-24] MEDS ORDERED: Meclizine 25mg tab ORAL ONE (17:30)
[2018-08-24] MEDS ORDERED: Metoclopramide 10mg/2ml Inj IVP ONE (17:30)
--- NOTE | 2018-08-24 17:50 | NUR ---
ED Nurse Note: PT TAKEN TO CT VIA GURNEY. KEM OROSCO.
--- NOTE | 2018-08-24 17:58 | Emergency Room Report ---
History of Present Illness General Chief Complaint: Dizziness Source: Patient Present Illness HPI 57-year-old female presents ED for evaluation. Patient walked in complaining of dizziness since yesterday. Describes room spinning sensation worse with sudden head movements. Notes nausea, denies vomiting. Denies headache. Street diabetes. Denies chest pain or shortness of breath. Denies fevers or chills. Denies photophobia or blurry vision. No other aggravating relieving factors. Denies any other associated symptoms Allergies: Coded Allergies: No Known Allergies (Unverified , 07/30/15) Patient History Past Medical History: DM, HTN, asthma, GERD Past Surgical History: none Pertinent Family History: none Social History: Denies: smoking, alcohol use, drug use Last Menstrual Period: na Now: No Immunizations: UTD Reviewed Nursing Documentation: PMH: Agreed; PSxH: Agreed Nursing Documentation-PMH Past Medical History: No History, Except For Hx Cardiac Problems: Yes Hx Hypertension: Yes Hx Asthma: Yes Hx Diabetes: Yes Hx Cancer: No Hx Gastrointestinal Problems: Yes - Gastritis Hx Neurological Problems: No Review of Systems All Other Systems: negative except mentioned in HPI Physical Exam Vital Signs Date Time Temp Pulse Resp B/P (MAP) Pulse Ox O2 Delivery O2 Flow Rate FiO2 08/24/18 17:13 98.2 78 16 82/57 (65) 94 Room Air Sp02 EP Interpretation: reviewed, normal General Appearance: no apparent distress, alert, GCS 15, non-toxic Head: normocephalic, atraumatic Eyes: bilateral eye normal inspection, bilateral eye PERRL, bilateral eye EOMI ENT: hearing grossly normal, normal pharynx, no angioedema, normal voice Neck: full range of motion, supple/symm/no masses Respiratory: chest non-tender, lungs clear, normal breath sounds, speaking full sentences Cardiovascular #1: regular rate, rhythm, no edema Cardiovascular #2: 2+ carotid (R), 2+ carotid (L), 2+ radial (R), 2+ radial (L) , 2+ dorsalis pedis (R), 2+ dorsalis pedis (L) Gastrointestinal: normal bowel sounds, non tender, soft, non-distended, no guarding, no rebound Rectal: deferred Genitourinary: normal inspection, no CVA tenderness Musculoskeletal: back normal, gait/station normal, normal range of motion, non- tender 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, oriented x3, responsive, statistical geneticist III-XII nml as tested, motor strength/tone normal, sensory intact, cerebellar normal, normal gait, speech normal Psychiatric: judgement/insight normal, memory normal, mood/affect normal, no suicidal/homicidal ideation Reflexes: 3+ bicep (R), 3+ bicep (L), 3+ tricep (R), 3+ tricep (L), 3+ knee (R) , 3+ knee (L) Skin: normal color, no rash, warm/dry, well hydrated Lymphatic: no adenopathy Medical Decision Making Diagnostic Impression: Primary Impression: Hyperglycemia Additional Impressions: Dizziness Renal failure Qualified Codes: N19 - Unspecified kidney failure Hypokalemia ER Course Hospital Course 57-year-old female presents ED complaining of dizziness, unsteady gait Differential diagnoses include: ME/unstable angina, arrythmia, dehydration, CVA/ TIA Clinical course Patient placed on stretcher. on conveyor monitor. After initial history and physical I ordered labs, EKG, reglan, meclizine, IVFs, CT Brain labs reviewed- no leukocytosis, hemoglobin/hematocrit ok, BUN/Cr elevated, K 3.0 , Glucose > 300 no evidence of DKA EKG- NSR, no acute ischemic changes interpreted by me CT brain-unremarkable IV fluids given. Potassium repleted. Case discussed with Dr. Feliz and he agreed to accept the patient to his service for further care and support I. I feel this is a highly complex case requiring extensive working including EKG/Rhythm strip, Xray/CT/US, Blood/urine lab work, repeat exams while in ED, and administration of strong opiates/narcotics for pain control, admission to hospital or close patient follow up. Diagnosis - hyperglycemia, dizzienss, renal failure, hypokalemia admitted to telemetry in serious condition Labs Test 08/24/18 17:45 White Blood Count 13.3 K/UL (4.8-10.8) Red Blood Count 4.25 M/UL (4.20-5.40) Hemoglobin 12.1 G/DL (12.0-16.0) Hematocrit 35.8 % (37.0-47.0) Mean Corpuscular Volume 84 FL (80-99) Mean Corpuscular Hemoglobin 28.4 PG (27.0-31.0) Mean Corpuscular Hemoglobin Concent 33.8 G/DL (32.0-36.0) Red Cell Distribution Width 10.7 % (11.6-14.8) Platelet Count 315 K/UL (150-450) Mean Platelet Volume 6.6 FL (6.5-10.1) Neutrophils (%) (Auto) 71.8 % (45.0-75.0) Lymphocytes (%) (Auto) 21.1 % (20.0-45.0) Monocytes (%) (Auto) 4.3 % (1.0-10.0) Eosinophils (%) (Auto) 2.2 % (0.0-3.0) Basophils (%) (Auto) 0.6 % (0.0-2.0) Sodium Level 134 MMOL/L (136-145) Potassium Level 3.0 MMOL/L (3.5-5.1) Chloride Level 93 MMOL/L (98-107) Carbon Dioxide Level 32 MMOL/L (21-32) Anion Gap 9 mmol/L (5-15) Blood Urea Nitrogen 29 mg/dL (7-18) Creatinine 2.9 MG/DL (0.55-1.30) Estimat Glomerular Filtration Rate 20.2 mL/min (>60) Glucose Level 395 MG/DL (74-106) Calcium Level 9.1 MG/DL (8.5-10.1) Magnesium Level 1.6 MG/DL (1.8-2.4) Total Bilirubin 0.3 MG/DL (0.2-1.0) Aspartate Amino Transf (AST/SGOT) 68 U/L (15-37) Alanine Aminotransferase (ALT/SGPT) 75 U/L (12-78) Alkaline Phosphatase 291 U/L (46-116) Total Protein 7.7 G/DL (6.4-8.2) Albumin 3.1 G/DL (3.4-5.0) Globulin 4.6 g/dL Albumin/Globulin Ratio 0.7 (1.0-2.7) Acetone Level Negative (NEGATIVE) EKG Diagnostic Results Rate: normal Rhythm: NSR ST Segments: no acute changes ASA given to the pt in ED: No Rhythm Strip Diag. Results EP Interpretation: yes Rhythm: NSR, no PVC's, no ectopy CT/MRI/US Diagnostic Results CT/MRI/US Diagnostic Results : Imaging Test Ordered: CT Head Impression no acute process Last Vital Signs Date Time Temp Pulse Resp B/P (MAP) Pulse Ox O2 Delivery O2 Flow Rate FiO2 08/24/18 17:26 98.4 91 22 130/66 98 Room Air Status: improved Disposition: ADMITTED INPATIENT Condition: Serious Referrals: NON PHYSICIAN (PCP) Kavon Younger MD August 24, 2018 17:58
[2018-08-24 18:07] LABS: BASOPHILS % (AUTO) 0.6 % (0.0-2.0); EOSINOPHILS % (AUTO) 2.2 % (0.0-3.0); HEMATOCRIT 35.8 % (37.0-47.0); HEMOGLOBIN 12.1 G/DL (12.0-16.0); LYMPHOCYTES % (AUTO) 21.1 % (20.0-45.0); MEAN CORPUSCULAR VOLUME 84 FL (80-99); MONOCYTES % (AUTO) 4.3 % (1.0-10.0); NEUTROPHILS % (AUTO) 71.8 % (45.0-75.0); PLATELET COUNT 315 K/UL (150-450); RED BLOOD COUNT 4.25 M/UL (4.20-5.40); RED CELL DISTRIBUTION WIDTH 10.7 % (11.6-14.8); WHITE BLOOD COUNT 13.3 K/UL (4.8-10.8)
--- NOTE | 2018-08-24 18:10 | NUR ---
ED Nurse Note: PT IS UNABLE TO PROVIDE A URINE SPECIMEN YET.
[2018-08-24 18:19] LABS: ANION GAP 9 mmol/L (5-15); BLOOD UREA NITROGEN 29 mg/dL (7-18); CALCIUM 9.1 MG/DL (8.5-10.1); CARBON DIOXIDE 32 MMOL/L (21-32); CHLORIDE 93 MMOL/L (98-107); CREATININE 2.9 MG/DL (0.55-1.30); SODIUM 134 MMOL/L (136-145)
--- NOTE | 2018-08-24 18:22 | Diagnostic Imaging Report ---
Indications: Dizziness, vertigo Technique: Spiral acquisitions obtained through the brain. Angled axial and coronal 5 x 5 mm slices were reconstructed. Total dose length product 1337.02 mGycm. CTDI vol(s) 70.38 mGy. Dose reduction achieved using automated exposure control Comparison: None. Findings: No acute intrarenal hemorrhage or edema, mass effect, nor midline shift. Normal gandhi-white differentiation. Normal-sized ventricles and extra axial CSF spaces intact calvarium. Visualized orbits and sinuses are unremarkable. Impression: Negative The CT scanner at [facility] is accredited by the [employer] and the scans are performed using protocols designed to limit radiation exposure to as low as reasonably achievable to attain images of sufficient resolution adequate for diagnostic evaluation.
[2018-08-24 18:24] LABS: ALANINE AMINOTRANSFERASE 75 U/L (12-78); ALBUMIN 3.1 G/DL (3.4-5.0); ALBUMIN/GLOBULIN RATIO 0.7 (1.0-2.7); ALKALINE PHOSPHATASE 291 U/L (46-116); ASPARTATE AMINO TRANSFERASE 68 U/L (15-37); BILIRUBIN,TOTAL 0.3 MG/DL (0.2-1.0)
--- NOTE | 2018-08-24 18:40 | NUR ---
ED Nurse Note: PT STILL UNABLE TO PROVIDE A URINE SAMPLE AT THIS TIME. DR GREEN IS OKAY NOT TO COLLECT URINE IF PT UNABLE TO URINATE.
--- NOTE | 2018-08-24 19:11 | NUR ---
HAND-OFF: Report given to YOHANNES BUSCH.
[2018-08-24 20:03] VITALS: BP 110/48
--- NOTE | 2018-08-24 21:00 | NUR ---
ED Nurse Note: Pt recieved PO potassium per order and another liter of NS per order before being transferred upstairs, pt tolerated well
--- NOTE | 2018-08-24 21:10 | NUR ---
TRANSFER TO FLOOR: Patient transferred to Tele as ordered, per Dr. Younger . Report given to JO-ANN Nolasco. Belongings and medications given to patient. Family and or S/O informed of transfer. Pt VSS, 20g IV R AC intact and sussy hand rec and belongings list completed.
[2018-08-24 21:40] VITALS: BP 105/60
--- NOTE | 2018-08-24 21:40 | NUR ---
NURSE NOTES: Received patient from ED from Nita BUSCH. Patient is awake and oriented x4. She is on room air, tolerating well, showing no signs of distress. Patient is receiving 1000ml Normal Saline bolus through IV site site AC 20g that is patent and intact. Bed is locked, placed in lowest position, side rails up x2, heart monitor attached, call light within reach. All needs attended to, will continue to monitor.
[2018-08-24] MEDS ORDERED: traMADol 50mg tab ORAL PRN (23:30)
[2018-08-25] VITALS: BP 95/53
[2018-08-25 04:00] VITALS: BP 98/56
[2018-08-25] MEDS: NovoLOG Insulin Flexpen SUBQ SCH ×5 (06:08→20:50)
--- NOTE | 2018-08-25 07:14 | NUR ---
HAND-OFF: Report given to Trinity BUSCH. Patient in stable condition.
[2018-08-25 07:20] LABS: ANION GAP 10 mmol/L (5-15); BLOOD UREA NITROGEN 32 mg/dL (7-18); CALCIUM 7.9 MG/DL (8.5-10.1); CARBON DIOXIDE 29 MMOL/L (21-32); CHLORIDE 103 MMOL/L (98-107); CREATININE 2.1 MG/DL (0.55-1.30); POTASSIUM 3.2 MMOL/L (3.5-5.1); SODIUM 141 MMOL/L (136-145)
[2018-08-25 07:21] LABS: BASOPHILS % (AUTO) 0.6 % (0.0-2.0); EOSINOPHILS % (AUTO) 4.1 % (0.0-3.0); HEMATOCRIT 32.8 % (37.0-47.0); HEMOGLOBIN 10.8 G/DL (12.0-16.0); MEAN CORPUSCULAR VOLUME 87 FL (80-99); MONOCYTES % (AUTO) 4.8 % (1.0-10.0); NEUTROPHILS % (AUTO) 58.6 % (45.0-75.0); PLATELET COUNT 277 K/UL (150-450); RED BLOOD COUNT 3.75 M/UL (4.20-5.40); WHITE BLOOD COUNT 11.8 K/UL (4.8-10.8)
--- NOTE | 2018-08-25 07:37 | NUR ---
NURSE NOTES: Received report from JO-ANN Nolasco. Patient in bed resting, no active s/s cardiac, respiratory distress noticed at this time. Patient denies pain at this time, SR with HR 67, patient on room air. Endorsed 2g magnesium given for mg level 1.6, 40 mEq K-dur given for K 3.0, one cup of orange juice given for low blood sugar. IV on right AC 20 G, asymptomatic, patent, intact, IV fluid running at prescribed rate. Bed in lowest position, side rails upx3, call light within reach, bed alarm on. Will continue to monitor.
[2018-08-25 08:00] VITALS: BP 107/57
--- NOTE | 2018-08-25 08:37 | NUR ---
NURSE NOTES: Dr. Feliz made aware patient's K level 3.2 today and patient requesting medication for constipation. Per Dr. Feliz, Colace 100mg PO BID, 40 mEq KCl PO. Order noted, entered, carried out. Will continue to monitor.
[2018-08-25] MEDS: Docusate 100mg cap ORAL SCH ×2 (08:57→17:20)
[2018-08-25] MEDS: Doxazosin 4mg tab ORAL SCH (08:58)
[2018-08-25] MEDS ORDERED: Levofloxacin 500mg tab ORAL ONE (09:00)
[2018-08-25] MEDS: Lisinopril 20mg tab ORAL SCH (09:00)
[2018-08-25] MEDS: Atenolol 25mg tab ORAL SCH ×2 (09:00→17:13)
[2018-08-25] MEDS: Heparin 5000 units/ml inj SUBQ SCH ×2 (09:01→20:51)
[2018-08-25] MEDS ORDERED: Meclizine 25mg tab ORAL PRN (09:15)
--- NOTE | 2018-08-25 09:17 | NUR ---
NURSE NOTES: Atenolol 25mg tab returned to dispenser before scanning, pharmacist, Mack, made aware.
[2018-08-25 12:00] VITALS: BP 100/58
--- NOTE | 2018-08-25 12:02 | Diagnostic Imaging Report ---
Indication: Acute renal failure, abnormal renal function tests, bilateral flank pain Technique: Grayscale and duplex images of the kidneys, retroperitoneum, and bladder were obtained. Comparison: none Findings: Right kidney measures 10.1 cm in length. Left kidney measures 10.2 cm in length. Both kidneys demonstrate normal echogenicity. No hydronephrosis. Incidental finding of left renal cyst. Normal inferior vena cava. Bladder is normal, calculated prevoid volume to 65 mL. Patient did not void for the study.. Impression: Essentially unremarkable exam Incidental finding left renal cyst.
--- NOTE | 2018-08-25 12:06 | Cardiology Report ---
APPROVED REPORT EKG Measurement Heart [id number] Normal sinus rhythm Prolonged QT Abnormal ECG
--- NOTE | 2018-08-25 12:12 | Cardiology Report ---
APPROVED REPORT EKG Measurement Heart [id number] Normal sinus rhythm Prolonged QT Abnormal ECG
--- NOTE | 2018-08-25 12:43 | NUR ---
CASE MANAGEMENT:REVIEW 57 YR OLD FEMALE PRESENTED TO ER CC: DIZZINESS AND WEAKNESS SI: HYPERGLYCEMIA 98.3 78 16 82/57 93% ON RA WBC+13.3 K-3.0 BUN+29 CR+2.9 GLUCOSE+395 IS: 1L NS BOLUS X2 IV REGLAN MECLIZINE PO K-DUR PO CT HEAD : TO TELEMETRY INTERQUAL CRITERIA MET
--- NOTE | 2018-08-25 12:43 | Cardiology Report ---
APPROVED REPORT EXAM: Two-dimensional and M-mode echocardiogram with Doppler and color Doppler. INDICATION Dizziness M-Mode DIMENSIONS IVSd1.1 (0.7-1.1cm)Left Atrium (MM)3.1 (1.6-4.0cm) LVDd4.5 (3.5-5.6cm)Aortic Root3.0 (2.0-3.7cm) PWd1.2 (0.7-1.1cm)Aortic Cusp Exc.1.7 (1.5-2.0cm) IVSs1.4 cm LVDs2.4 (2.5-4.0cm) PWs2.1 cm Normal left ventricular chamber size, systolic function and wall motion. Left ventricular ejection fraction estimated to be 65 %. Mild left ventricular hypertrophy. Anterior Echo-free space, may be due to pericardial fat or effusion. All other cardiac chamber sizes are within normal limits. Focal aortic valve sclerosis with adequate cusp excursion. Thickened mitral valve leaflets with normal excursion. Mitral annulus and aortic root calcification. Normal pulmonic valve structure. Normal tricuspid valve structure. IVC at normal size with physiologic collapse. A color flow and spectral Doppler study was performed and revealed: Trace mitral regurgitation. Mitral diastolic velocities suggest reduced left ventricular relaxation c/w mild LV diastolic dysfunction (Grade I). Trace to mild tricuspid regurgitation. Tricuspid systolic velocities suggests peak right ventricular systolic pressure of 32 mmHg.
[2018-08-25 16:00] VITALS: BP 102/59
--- NOTE | 2018-08-25 16:00 | History and Physical Report ---
DATE OF ADMISSION: 08/24/2018 REASON FOR ADMISSION: Dizziness, possible vertigo. HISTORY OF PRESENT ILLNESS: This is a 57-year-old female who presented with what appears to be vertiginous symptoms. The patient notes the room is spinning. Notes nausea. The patient denies any other significant medical problems. The patient has been evaluated and now admitted to telemetry for further evaluation. PAST MEDICAL HISTORY: Diabetes, hypertension, asthma, GERD. MEDICATIONS: Reviewed. ALLERGIES: Reviewed. SOCIAL HISTORY: Nonsmoker and nondrinker. REVIEW OF SYSTEMS: Otherwise negative with the exception of the above. PHYSICAL EXAMINATION: GENERAL: A well-developed female. VITAL SIGNS: Reviewed. Blood pressure 107/57, pulse 87, temperature 99.2, respirations 19. HEENT: Negative. NECK: Supple. LUNGS: Clear. CARDIAC: S1, S2. Regular rate and rhythm. ABDOMEN: Soft, nontender. EXTREMITIES: No edema. The patient with difficulty due to significant dizziness with change of position. LABORATORY DATA: Reviewed. White cell count 11.8, hemoglobin 10. Potassium 3.2, BUN 32, creatinine 2.1. IMPRESSION: 1. Possible vertigo. CT of the head negative. 2. Dizziness. 3. Chronic renal failure, likely diabetes. RECOMMENDATIONS: Supportive care. Meclizine as needed. PT evaluation. Neurological evaluation. Renal evaluation. IV hydration. Discharge once stable. Obtain echocardiogram for further evaluation. Germán Feliz M.D. DR: CASSIDY JOB#: [id number] CC:
--- NOTE | 2018-08-25 19:23 | NUR ---
NURSE NOTES: RECEIVED PATIENT RESTING IN BED, NO COMPLAINTS OF PAIN AT THIS TIME. FALL PRECAUTIONS IN PLACE: CALL LIGHT AND BEDSIDE TABLE WITHIN REACH, BED IN LOW POSITION AND BED ALARM ON. DAUGHTER AT BEDSIDE. PLAN OF CARE REVIEWED.
--- NOTE | 2018-08-25 19:31 | NUR ---
HAND-OFF: Report given to JO-ANN Xavier.
[2018-08-25 20:00] VITALS: BP 131/70
[2018-08-26] VITALS: BP 118/71
[2018-08-26 04:00] VITALS: BP 130/72
[2018-08-26] MEDS: NovoLOG Insulin Flexpen SUBQ SCH ×4 (06:13→20:48)
--- NOTE | 2018-08-26 07:25 | NUR ---
HAND-OFF: Report given to JO-ANN PURVIS. PATIENT RESTING IN BED, NO SIGNS OF DISTRESS NOTED.
[2018-08-26 07:53] VITALS: BP 113/61
[2018-08-26] MEDS: Docusate 100mg cap ORAL SCH ×2 (08:18→17:07)
[2018-08-26] MEDS: Heparin 5000 units/ml inj SUBQ SCH ×2 (08:20→20:49)
--- NOTE | 2018-08-26 08:46 | NUR ---
CASE MANAGEMENT:REVIEW 08/26/18 SI POSSIBLE VERTIGO. DIZZINESS 98.4 91 20 13/61 99% ON RA ACCUCHECK+324 IS: IVF@100/HR LEVAQUIN PO Q48 NORVASC PO QD ATENOLOL PO BID CARDURA PO QD NEURONTIN PO QD LISINOPRIL PO QD HEPARIN SQ Q12 SS INSULIN AC+HS MECLIZINE PO Q6HRS PRN
[2018-08-26] MEDS: Lisinopril 20mg tab ORAL SCH (09:00)
[2018-08-26] MEDS: Doxazosin 4mg tab ORAL SCH (09:00)
[2018-08-26] MEDS: Atenolol 25mg tab ORAL SCH ×2 (09:00→17:08)
--- NOTE | 2018-08-26 09:24 | NUR ---
pharmacy note: pt sbp 113, and c/o dizziness , pt in bed now held bp meds at this time
--- NOTE | 2018-08-26 10:21 | NUR ---
NURSE NOTES: pt awake alert, no distress . no sob. call light within reach. will monitor. bed in lowest position, locked.
--- NOTE | 2018-08-26 10:50 | NUR ---
P.T NOTE: P.T EVALUATION COMPLETED AND TREATMENT INITIATED. PATIENT ALERT, PLEASANT AND COOPERATIVE DESPITE C/O HEADACHE AND DIZZINESS RATED 9/10. PATIENT ALSO REPORTS C/O ROOM FEELS LIKE SPINNING WITH HEAD MOVEMENT AFFECTING OVERALL MOBILITY. PATIENT CURRENTLY REQUIRE CGA AND VERBAL CUES FOR BED MOBILITY , TRANSFER AND GAIT/AMBULATION ACTIVITIES USING THE [facility]. SKILLED P.T SERVICE IS WARRANTED TO WORK ON BALANCE AND SAFETY WITH FUNCTIONAL ACTIVITIES. RECOMMEND [facility] FOR SAFE AMBULATION UNTIL DIZZINESS RESOLVE. MAY ALSO BENEFIT FROM HOME P.T FOR SAFETY FOLLOW UP.
[2018-08-26 13:06] VITALS: BP 132/72
[2018-08-26 16:00] VITALS: BP 154/80
--- NOTE | 2018-08-26 19:14 | NUR ---
HAND-OFF: Report given to PRINCE BUSCH.
--- NOTE | 2018-08-26 19:20 | NUR ---
NURSE NOTES: Received pt from JO-ANN Dowd. Pt awake, alert, and talkative. Bed in lowest position. Call light within reach. Will continue to monitor.
[2018-08-26 20:00] VITALS: BP 131/87
--- NOTE | 2018-08-26 20:29 | NUR ---
NURSE NOTES: called and left a message with Dr. Feliz regarding pts complaint of burning and pain during urination. Awaiting call back. Will continue to monitor.
--- NOTE | 2018-08-26 23:04 | Pulmonology Progress Note ---
Assessment/Plan Assessment/Plan Pulmonary Progress Note: HISTORY OF PRESENT ILLNESS: This is a 57-year-old female who presented with what appears to be vertiginous symptoms. The patient notes the room is spinning. Notes nausea. The patient denies any other significant medical problems. The patient has been evaluated and now admitted to telemetry for further evaluation. Vertigo improving PAST MEDICAL HISTORY: Diabetes, hypertension, asthma, GERD. MEDICATIONS: Reviewed. ALLERGIES: Reviewed. SOCIAL HISTORY: Nonsmoker and nondrinker. REVIEW OF SYSTEMS: Otherwise negative with the exception of the above. PHYSICAL EXAMINATION: GENERAL: A well-developed female. VITAL SIGNS NOTED HEENT: Negative. NECK: Supple. LUNGS: Clear. CARDIAC: S1, S2. Regular rate and rhythm. ABDOMEN: Soft, nontender. EXTREMITIES: No edema. The patient with difficulty due to significant dizziness with change of position. LABORATORY DATA NOTED: Reviewed. White cell count 11.8, hemoglobin 10. Potassium 3.2, BUN 32, creatinine 2.1. IMPRESSION: 1. Possible vertigo. CT of the head negative. 2. Dizziness. 3. Chronic renal failure, likely diabetes. RECOMMENDATIONS: Supportive care. Meclizine as needed. PT evaluation. Neurological evaluation. Renal evaluation. IV hydration. Discharge once stable. Obtain echocardiogram for further evaluation. Subjective ROS Limited/Unobtainable: No Allergies: Coded Allergies: No Known Allergies (Unverified , 07/30/15) Objective Last 24 Hour Vital Signs Date Time Temp Pulse Resp B/P (MAP) Pulse Ox O2 Delivery O2 Flow Rate FiO2 08/26/18 20:00 97.9 96 18 131/87 (102) 95 08/26/18 17:08 82 128/72 08/26/18 16:00 98.5 80 20 154/80 (104) 99 08/26/18 15:46 95 08/26/18 13:06 98.4 82 20 132/72 (92) 99 08/26/18 11:27 98 08/26/18 09:00 113/61 08/26/18 09:00 97 113/61 08/26/18 09:00 97 113/61 08/26/18 07:55 97 08/26/18 07:54 Room Air 08/26/18 07:53 98.4 91 20 113/61 (78) 99 08/26/18 04:00 98.4 103 20 130/72 (91) 99 08/26/18 04:00 91 08/26/18 00:00 98.8 100 20 118/71 (87) 95 08/26/18 00:00 98 Intake and Output 08/25/18 08/26/18 19:00 07:00 Intake Total 260 ml 1340 ml Balance 260 ml 1340 ml Intake Oral 260 ml 240 ml IV Total 1100 ml # Voids 2 4 # Bowel Movements 3 Current Medications Medications (Trade) Dose Ordered Sig/Ivana Route PRN Reason Start Time Stop Time Status Last Admin Dose Admin Acetaminophen (Tylenol) 650 mg Q4H PRN ORAL Pain 08/25/18 02:30 09/24/18 02:29 Al Hydroxide/Mg Hydroxide (Mylanta) 30 ml DAILY ORAL 08/25/18 09:00 09/24/18 08:59 08/26/18 08:17 Amlodipine Besylate (Norvasc) 10 mg DAILY ORAL 08/25/18 09:00 09/24/18 08:59 Atenolol (Tenormin) 25 mg BID ORAL 08/25/18 09:00 09/24/18 08:59 08/26/18 17:08 Dextrose (Dextrose 50%) 25 ml Q30M PRN IV Hypoglycemia 08/24/18 23:45 09/23/18 23:44 Dextrose (Dextrose 50%) 50 ml Q30M PRN IV Hypoglycemia 08/24/18 23:45 09/23/18 23:44 Docusate Sodium (Colace) 100 mg TWICE A DAY ORAL 08/25/18 09:00 09/24/18 08:59 08/26/18 08:18 Doxazosin Mesylate (Cardura) 4 mg DAILY ORAL 08/25/18 09:00 09/24/18 08:59 08/25/18 08:58 Gabapentin (Neurontin) 600 mg DAILY ORAL 08/25/18 09:00 09/24/18 08:59 08/26/18 08:17 Heparin Sodium (Porcine) (Heparin 5000 units/ml) 5,000 units EVERY 12 HOURS SUBQ 08/25/18 09:00 09/24/18 08:59 08/26/18 20:49 Insulin Aspart (NovoLOG) BEFORE MEALS AND HS SUBQ 08/25/18 06:30 09/24/18 06:29 08/26/18 20:48 Levofloxacin (Levaquin) 250 mg Q48H ORAL 08/27/18 09:00 09/03/18 08:59 Lisinopril (Prinivil) 40 mg DAILY ORAL 08/25/18 09:00 09/24/18 08:59 Meclizine HCl (Antivert) 25 mg Q6H PRN ORAL for dizziness 08/25/18 09:15 09/24/18 09:14 Pantoprazole (Protonix) 40 mg DAILY ORAL 08/25/18 09:00 09/24/18 08:59 08/26/18 08:18 Sodium Chloride 1,000 ml @ 100 mls/hr Q10H IV 08/25/18 04:00 09/24/18 03:59 08/26/18 20:50 Tramadol HCl (Ultram) 50 mg Q6H PRN ORAL For Pain 08/24/18 23:30 08/31/18 23:29 08/25/18 15:04 Evans Zhang MD August 26, 2018 23:04
[2018-08-27] VITALS: BP 149/81
--- NOTE | 2018-08-27 00:46 | NUR ---
NURSE NOTES: Called and left a message with Dr. Feliz regarding pts request for sleeping pill and also informed him of her abdominal tenderness located on the left lower quadrant. Awaiting call back.
--- NOTE | 2018-08-27 00:50 | NUR ---
NURSE NOTES: Informed Dr. Feliz of pts low potassium level. Awaiting call back.
[2018-08-27 01:10] LABS: APPEARANCE,URINE CLEAR; BILIRUBIN, URINE NEGATIVE (NEGATIVE); COLOR,URINE PALE YELLOW; GLUCOSE, URINE (UA) 3+ (NEGATIVE); KETONES,URINE NEGATIVE (NEGATIVE); LEUKOCYTE ESTERASE ,URINE 1+ (NEGATIVE); NITRITE,URINE NEGATIVE (NEGATIVE); PH,URINE 7 (4.5-8.0); PROTEIN,URINE 1+ (NEGATIVE); UROBILINOGEN,URINE NORMAL MG/DL (0.0-1.0)
[2018-08-27 04:00] VITALS: BP 133/75
[2018-08-27] MEDS: NovoLOG Insulin Flexpen SUBQ SCH ×4 (06:33→21:52)
--- NOTE | 2018-08-27 07:25 | NUR ---
NURSE NOTES: I received the patient resting in bed. Patient does not display any signs of distress or SOB. Bed in the lowest position and call light within reach. I will continue to monitor the patient and implement care.
--- NOTE | 2018-08-27 07:50 | NUR ---
HAND-OFF: Report given to JO-ANN Jamison. Pt stable.
[2018-08-27 08:00] VITALS: BP 145/68
[2018-08-27] MEDS: Docusate 100mg cap ORAL SCH ×2 (08:48→17:06)
[2018-08-27] MEDS: Doxazosin 4mg tab ORAL SCH (08:49)
[2018-08-27] MEDS: Levofloxacin 500mg tab ORAL SCH (08:49)
[2018-08-27] MEDS: Lisinopril 20mg tab ORAL SCH (08:49)
[2018-08-27] MEDS: Atenolol 25mg tab ORAL SCH ×2 (08:49→17:06)
[2018-08-27] MEDS: Heparin 5000 units/ml inj SUBQ SCH ×2 (08:51→21:52)
[2018-08-27] MEDS ORDERED: NS 275ml ONE (10:13)
[2018-08-27] MEDS ORDERED: Tubing IV Secondary IV ONE (10:13)
--- NOTE | 2018-08-27 10:17 | General Progress Note ---
Assessment/Plan Assessment/Plan: vertigo dizziness insomnia LLQ tenderness PLAN dc home pending gi eval hold dc zofran prn meclizine prn avoid excessive activity outpatient follow up impression, plan, and exam edited and reviewed in detail care discussed with RN Subjective Allergies: Coded Allergies: No Known Allergies (Unverified , 07/30/15) Subjective care noted LLQ pain Objective Last 24 Hour Vital Signs Date Time Temp Pulse Resp B/P (MAP) Pulse Ox O2 Delivery O2 Flow Rate FiO2 08/27/18 09:00 Room Air 08/27/18 08:49 145/68 08/27/18 08:49 84 145/68 08/27/18 08:48 84 145/68 08/27/18 08:00 98.4 84 20 145/68 (93) 97 08/27/18 07:50 86 08/27/18 04:00 76 08/27/18 04:00 98.1 80 18 133/75 (94) 95 08/27/18 00:00 89 08/27/18 00:00 98.1 89 18 149/81 (103) 96 08/26/18 21:00 Room Air 08/26/18 20:00 97 08/26/18 20:00 97.9 96 18 131/87 (102) 95 08/26/18 17:08 82 128/72 08/26/18 16:00 98.5 80 20 154/80 (104) 99 08/26/18 15:46 95 08/26/18 13:06 98.4 82 20 132/72 (92) 99 08/26/18 11:27 98 Intake and Output 08/26/18 08/27/18 19:00 07:00 Intake Total 1740 ml 120 ml Balance 1740 ml 120 ml Intake Oral 740 ml 120 ml IV Total 1000 ml # Voids 3 2 Laboratory Tests 08/27/18 00:30: Urine Color Pale yellow, Urine Appearance Clear, Urine pH 7, Urine Specific [place] 1.010, Urine Protein 1+H, Urine Glucose (UA) 3+H, Urine Ketones Negative , Urine Blood Negative, Urine Nitrite Negative, Urine Bilirubin Negative, Urine Urobilinogen Normal, Urine Leukocyte Esterase 1+H, Urine RBC 0-2, Urine WBC 0-2 , Urine Squamous Epithelial Cells Occasional, Urine Bacteria Occasional Height (Feet): 5 Height (Inches): 1.00 Weight (Pounds): 176 Objective WDWN NAD clear breath sounds bilaterally without rhonchi or wheeze [id number] without MRG NABS LLQ tenderness no CCE nonfocal Germán Feliz MD Aug 27, 2018 10:17
[2018-08-27 12:00] VITALS: BP 101/59
--- NOTE | 2018-08-27 14:13 | NUR ---
PT Note Attempted to see patient for treatment x 2 but patient stated both times that she was up and walking earlier and that she just got back to bed. Patient refused treatment.
--- NOTE | 2018-08-27 15:50 | NUR ---
CASE MANAGEMENT:REVIEW 08/27/2018 SI POSSIBLE VERTIGO. DIZZINESS T 98.1 HR 84 RR 20 B/P 145/68 SATS 97% ON RA NO LABS TODAY IS: IVF@100 mL/HR LEVAQUIN PO Q48 NORVASC PO QD ATENOLOL PO BID CARDURA PO QD NEURONTIN PO QD LISINOPRIL PO QD HEPARIN SUBQ Q12H SS INSULIN AC+HS MECLIZINE PO Q6HRS PRN
[2018-08-27 16:00] VITALS: BP 130/71
--- NOTE | 2018-08-27 19:47 | NUR ---
HAND-OFF: Report given to JO-ANN Johnson.
--- NOTE | 2018-08-27 19:50 | NUR ---
NURSE NOTES: Received pt from JO-ANN Jamison. Pt awake, alert, and talkative. Bed in lowest position. Call light within reach. Will continue to monitor.
[2018-08-27 20:00] VITALS: BP 122/71
[2018-08-27] MEDS: Zolpidem 5mg tab ORAL PRN (21:52)
[2018-08-28] VITALS: BP 122/66
[2018-08-28 04:00] VITALS: BP 126/73
[2018-08-28] MEDS: NovoLOG Insulin Flexpen SUBQ SCH ×4 (06:48→21:04)
--- NOTE | 2018-08-28 07:04 | General Progress Note ---
Assessment/Plan Problem List: (1) Renal insufficiency ICD Codes: N28.9 - Disorder of kidney and ureter, unspecified SNOMED: 114749377, 972033406 (2) Dizziness ICD Codes: R42 - Dizziness and giddiness SNOMED: 325008745, 252163877 (3) Hypertension ICD Codes: I10 - Essential (primary) hypertension SNOMED: 34482804 (4) Abdominal pain ICD Codes: R10.9 - Unspecified abdominal pain SNOMED: 57366773 Assessment/Plan: ? diverticulitis CT ordered anemia work up ordered will fu Subjective ROS Limited/Unobtainable: Yes Allergies: Coded Allergies: No Known Allergies (Unverified , 07/30/15) Objective Last 24 Hour Vital Signs Date Time Temp Pulse Resp B/P (MAP) Pulse Ox O2 Delivery O2 Flow Rate FiO2 08/28/18 04:00 69 08/28/18 04:00 98.4 73 18 126/73 (90) 97 08/28/18 00:00 98.6 81 16 122/66 (84) 97 08/28/18 00:00 74 08/27/18 21:00 Room Air 08/27/18 20:00 74 08/27/18 20:00 98.7 79 18 122/71 (88) 99 08/27/18 17:06 66 130/71 08/27/18 16:03 66 08/27/18 16:00 98.5 73 20 130/71 (90) 100 08/27/18 12:00 99.0 84 20 101/59 (73) 97 08/27/18 11:38 75 08/27/18 09:00 Room Air 08/27/18 08:49 145/68 08/27/18 08:49 84 145/68 08/27/18 08:48 84 145/68 08/27/18 08:00 98.4 84 20 145/68 (93) 97 08/27/18 07:50 86 Intake and Output 08/27/18 08/28/18 18:59 06:59 Intake Total 1260 ml 240 ml Balance 1260 ml 240 ml Intake Oral 260 ml 240 ml IV Total 1000 ml # Voids 2 Height (Feet): 5 Height (Inches): 1.00 Weight (Pounds): 176 General Appearance: alert EENT: normal ENT inspection Neck: supple Cardiovascular: normal rate Respiratory/Chest: lungs clear Abdomen: soft, hypoactive bowel sounds, tender Extremities: non-tender Pee Chan MD Aug 28, 2018 07:04
--- NOTE | 2018-08-28 07:15 | NUR ---
NURSE NOTES: I received the patient awake and resting in bed. Patient alert and oriented x4. Patient made known that she needs to be NPO due to an abdominal ultasound that had been ordered. Bed in the lowest position and call light within reach. I will continue to monitor the patient and implement care.
--- NOTE | 2018-08-28 07:20 | NUR ---
HAND-OFF: Report given to JO-ANN Jamison. Pt stable.
[2018-08-28 08:00] VITALS: BP 136/76
[2018-08-28] MEDS: Heparin 5000 units/ml inj SUBQ SCH ×2 (09:00→21:04)
[2018-08-28] MEDS: Docusate 100mg cap ORAL SCH ×2 (09:00→17:06)
--- NOTE | 2018-08-28 09:06 | General Progress Note ---
Assessment/Plan Assessment/Plan: vertigo dizziness insomnia possible diverticulitis PLAN dc home pending gi clearance CT pending zofran prn meclizine prn avoid excessive activity outpatient follow up impression, plan, and exam edited and reviewed in detail care discussed with RN Subjective Allergies: Coded Allergies: No Known Allergies (Unverified , 07/30/15) Subjective care noted stable overnight LLQ pain Objective Last 24 Hour Vital Signs Date Time Temp Pulse Resp B/P (MAP) Pulse Ox O2 Delivery O2 Flow Rate FiO2 08/28/18 08:00 98.2 74 20 136/76 (96) 96 08/28/18 04:00 69 08/28/18 04:00 98.4 73 18 126/73 (90) 97 08/28/18 00:00 98.6 81 16 122/66 (84) 97 08/28/18 00:00 74 08/27/18 21:00 Room Air 08/27/18 20:00 74 08/27/18 20:00 98.7 79 18 122/71 (88) 99 08/27/18 17:06 66 130/71 08/27/18 16:03 66 08/27/18 16:00 98.5 73 20 130/71 (90) 100 08/27/18 12:00 99.0 84 20 101/59 (73) 97 08/27/18 11:38 75 Intake and Output 08/27/18 08/28/18 18:59 06:59 Intake Total 1260 ml 240 ml Balance 1260 ml 240 ml Intake Oral 260 ml 240 ml IV Total 1000 ml # Voids 2 Height (Feet): 5 Height (Inches): 1.00 Weight (Pounds): 176 Objective WDWN NAD clear breath sounds bilaterally without rhonchi or wheeze [id number] without MRG NABS LLQ tenderness no HSM no CCE nonfocal Germán Feliz MD Aug 28, 2018 09:06
[2018-08-28] MEDS: Doxazosin 4mg tab ORAL SCH (10:38)
[2018-08-28] MEDS: Atenolol 25mg tab ORAL SCH ×2 (10:38→17:06)
[2018-08-28] MEDS: Lisinopril 20mg tab ORAL SCH (10:39)
[2018-08-28 12:00] VITALS: BP 144/74
[2018-08-28] MEDS: Levofloxacin 500mg tab ORAL SCH (12:18)
[2018-08-28 16:00] VITALS: BP 145/71
--- NOTE | 2018-08-28 19:20 | NUR ---
HAND-OFF: Report given to Anabella Willis RN.
--- NOTE | 2018-08-28 19:34 | NUR ---
NURSE NOTES: RECEIVED PATIENT RESTING IN BED, NO COMPLAINTS OF PAIN AT THIS TIME. FALL PRECAUTIONS IN PLACE: CALL LIGHT, BEDSIDE TABLE AND COMMODE WITHIN REACH, BED IN LOW POSITION PLAN OF CARE REVIEWED. FAMILY AT BEDSIDE.
[2018-08-28 20:00] VITALS: BP 142/81
[2018-08-29] VITALS: BP 138/77
[2018-08-29 04:00] VITALS: BP 140/82
[2018-08-29] MEDS: NovoLOG Insulin Flexpen SUBQ SCH ×4 (06:12→21:39)
--- NOTE | 2018-08-29 07:18 | NUR ---
NURSE NOTES: I received the patient awake and resting in bed. Patient alert and oriented x4. Patient does not display any signs of distress or SOB. Bed in the lowest position and call light within reach. I will continue to monitor the patient and implement care.
[2018-08-29 07:22] LABS: HEMATOCRIT 34.3 % (37.0-47.0); HEMOGLOBIN 11.3 G/DL (12.0-16.0); LYMPHOCYTES % (AUTO) 34.1 % (20.0-45.0); MEAN CORPUSCULAR VOLUME 88 FL (80-99); NEUTROPHILS % (AUTO) 53.9 % (45.0-75.0); PLATELET COUNT 282 K/UL (150-450); RED BLOOD COUNT 3.89 M/UL (4.20-5.40); RED CELL DISTRIBUTION WIDTH 11.1 % (11.6-14.8); WHITE BLOOD COUNT 6.7 K/UL (4.8-10.8)
--- NOTE | 2018-08-29 07:31 | NUR ---
HAND-OFF: Report given to Samanta MANCERA RN. PATIENT RESTING IN BED, NO SIGNS OF DISTRESS NOTED.
[2018-08-29 07:37] LABS: ALANINE AMINOTRANSFERASE 74 U/L (12-78); ALBUMIN 2.8 G/DL (3.4-5.0); ALBUMIN/GLOBULIN RATIO 0.6 (1.0-2.7); ALKALINE PHOSPHATASE 169 U/L (46-116); ANION GAP 5 mmol/L (5-15); ASPARTATE AMINO TRANSFERASE 79 U/L (15-37); BILIRUBIN,TOTAL 0.5 MG/DL (0.2-1.0); BLOOD UREA NITROGEN 7 mg/dL (7-18); CALCIUM 8.5 MG/DL (8.5-10.1); CARBON DIOXIDE 30 MMOL/L (21-32); CHLORIDE 103 MMOL/L (98-107); CREATININE 0.8 MG/DL (0.55-1.30); SODIUM 138 MMOL/L (136-145)
--- NOTE | 2018-08-29 07:54 | General Progress Note ---
Assessment/Plan Assessment/Plan: vertigo dizziness insomnia LLQ tenderness PLAN dc home pending gi recommendations zofran prn meclizine prn outpatient follow up impression, plan, and exam edited and reviewed in detail care discussed with RN Subjective Allergies: Coded Allergies: No Known Allergies (Unverified , 07/30/15) Subjective care noted awaiting CT results Objective Last 24 Hour Vital Signs Date Time Temp Pulse Resp B/P (MAP) Pulse Ox O2 Delivery O2 Flow Rate FiO2 08/29/18 04:00 98.4 78 18 140/82 (101) 96 08/29/18 04:00 68 08/29/18 00:00 98.1 74 17 138/77 (97) 96 08/29/18 00:00 68 08/28/18 21:00 Room Air 08/28/18 20:00 98.3 76 19 142/81 (101) 96 08/28/18 20:00 73 08/28/18 17:06 74 145/71 08/28/18 16:00 98.4 74 20 145/71 (95) 99 08/28/18 15:28 86 08/28/18 12:18 75 144/74 08/28/18 12:00 98.2 75 20 144/74 (97) 97 08/28/18 12:00 75 08/28/18 10:39 136/76 08/28/18 10:38 74 136/76 08/28/18 09:00 Room Air 08/28/18 08:00 98.2 74 20 136/76 (96) 96 Intake and Output 08/28/18 08/29/18 19:00 07:00 Intake Total 240 ml 1500 ml Output Total 3 ml Balance 237 ml 1500 ml Intake Oral 140 ml 360 ml IV Total 100 ml 1140 ml Output Urine Total 3 ml # Voids 2 Laboratory Tests 08/29/18 06:29: White Blood Count 6.7, Red Blood Count 3.89L, Hemoglobin 11.3L, Hematocrit 34.3L , Mean Corpuscular Volume 88, Mean Corpuscular Hemoglobin 29.0, Mean Corpuscular Hemoglobin Concent 33.0, Red Cell Distribution Width 11.1L, Platelet Count 282, Mean Platelet Volume 6.5, Neutrophils (%) (Auto) 53.9, Lymphocytes (%) (Auto) 34.1, Monocytes (%) (Auto) 4.0, Eosinophils (%) (Auto) 7.0H, Basophils (%) (Auto) 1.0, Sodium Level 138, Potassium Level 4.0, Chloride Level 103, Carbon Dioxide Level 30, Anion Gap 5, Blood Urea Nitrogen 7, Creatinine 0.8, Estimat Glomerular Filtration Rate > 60, Glucose Level 244H, Calcium Level 8.5, Iron Level [Pending], Unsaturated Iron Binding [Pending], Total Bilirubin 0.5, Aspartate Amino Transf (AST/SGOT) 79H, Alanine Aminotransferase (ALT/SGPT) 74, Alkaline Phosphatase 169H, Total Protein 7.3, Albumin 2.8L, Globulin 4.5, Albumin/Globulin Ratio 0.6L, Vitamin B12 Level [ Pending], Folate [Pending] Height (Feet): 5 Height (Inches): 1.00 Weight (Pounds): 176 Objective WDWN NAD clear breath sounds bilaterally without rhonchi or wheeze [id number] without MRG NABS LLQ tenderness no CCE nonfocal Germán Feliz MD Aug 29, 2018 07:54
[2018-08-29 08:00] VITALS: BP 123/71
[2018-08-29 08:27] LABS: % IRON SATURATION 33 % (15-50); IRON 115 ug/dL (50-175); TOTAL IRON BINDING CAPACITY 353 ug/dL (250-450)
--- NOTE | 2018-08-29 08:37 | General Progress Note ---
Assessment/Plan Assessment/Plan: Assessment - LLQ abd pain, improved - CRI - HTN - abnormal LFT Recommendations - push PO - f/u CT - Abx - d/c planning - outpatient colonoscopy Subjective Allergies: Coded Allergies: No Known Allergies (Unverified , 07/30/15) Subjective Feels better pain improved tolerating solids CT done, pending Objective Last 24 Hour Vital Signs Date Time Temp Pulse Resp B/P (MAP) Pulse Ox O2 Delivery O2 Flow Rate FiO2 08/29/18 08:00 98.8 79 18 123/71 (88) 96 08/29/18 04:00 98.4 78 18 140/82 (101) 96 08/29/18 04:00 68 08/29/18 00:00 98.1 74 17 138/77 (97) 96 08/29/18 00:00 68 08/28/18 21:00 Room Air 08/28/18 20:00 98.3 76 19 142/81 (101) 96 08/28/18 20:00 73 08/28/18 17:06 74 145/71 08/28/18 16:00 98.4 74 20 145/71 (95) 99 08/28/18 15:28 86 08/28/18 12:18 75 144/74 08/28/18 12:00 98.2 75 20 144/74 (97) 97 08/28/18 12:00 75 08/28/18 10:39 136/76 08/28/18 10:38 74 136/76 08/28/18 09:00 Room Air Intake and Output 08/28/18 08/29/18 19:00 07:00 Intake Total 240 ml 1500 ml Output Total 3 ml Balance 237 ml 1500 ml Intake Oral 140 ml 360 ml IV Total 100 ml 1140 ml Output Urine Total 3 ml # Voids 2 Laboratory Tests 08/29/18 06:29: White Blood Count 6.7, Red Blood Count 3.89L, Hemoglobin 11.3L, Hematocrit 34.3L , Mean Corpuscular Volume 88, Mean Corpuscular Hemoglobin 29.0, Mean Corpuscular Hemoglobin Concent 33.0, Red Cell Distribution Width 11.1L, Platelet Count 282, Mean Platelet Volume 6.5, Neutrophils (%) (Auto) 53.9, Lymphocytes (%) (Auto) 34.1, Monocytes (%) (Auto) 4.0, Eosinophils (%) (Auto) 7.0H, Basophils (%) (Auto) 1.0, Sodium Level 138, Potassium Level 4.0, Chloride Level 103, Carbon Dioxide Level 30, Anion Gap 5, Blood Urea Nitrogen 7, Creatinine 0.8, Estimat Glomerular Filtration Rate > 60, Glucose Level 244H, Calcium Level 8.5, Iron Level [Pending], Unsaturated Iron Binding [Pending], Total Bilirubin 0.5, Aspartate Amino Transf (AST/SGOT) 79H, Alanine Aminotransferase (ALT/SGPT) 74, Alkaline Phosphatase 169H, Total Protein 7.3, Albumin 2.8L, Globulin 4.5, Albumin/Globulin Ratio 0.6L, Vitamin B12 Level [ Pending], Folate [Pending] Height (Feet): 5 Height (Inches): 1.00 Weight (Pounds): 176 Objective Obese AA woman NCAT supple CTA RRR abd soft, mild LLQ TTP ext no edema Nonfocal Feliberto Pérez MD Aug 29, 2018 08:37
[2018-08-29] MEDS: Doxazosin 4mg tab ORAL SCH (08:47)
[2018-08-29] MEDS: Docusate 100mg cap ORAL SCH ×2 (08:48→17:18)
[2018-08-29] MEDS: Lisinopril 20mg tab ORAL SCH (08:48)
[2018-08-29] MEDS: Atenolol 25mg tab ORAL SCH ×2 (08:48→17:18)
[2018-08-29] MEDS: Heparin 5000 units/ml inj SUBQ SCH ×2 (08:49→21:40)
--- NOTE | 2018-08-29 09:18 | Diagnostic Imaging Report ---
Indication: Abdominal pain Technique: Continuous helical transaxial imaging of the abdomen and pelvis was obtained from the lung bases to the pubic symphysis. No intravenous contrast was administered. Coronal 2-D reformats were also obtained. Automatic Exposure Control was utilized. Total Dose length Product (DLP): 750.[address] Dose Index Volume (CTDIvol): 16.14 mGy Comparison: 07/30/2015 Findings: Lung bases are clear. Bladder is distended. There is no hydronephrosis. Appendix is normal. Bowel gas pattern is nonobstructive. Few diverticula in the sigmoid noted. No nephrolithiasis or hydronephrosis appreciated. Gallbladder is unremarkable. There is no free fluid. IMPRESSION: No acute findings. The CT scanner at [facility] is accredited by the [employer] and the scans are performed using dose optimization techniques as appropriate to a performed exam including Automatic Exposure control.
[2018-08-29 12:00] VITALS: BP 121/68
--- NOTE | 2018-08-29 12:51 | NUR ---
NURSE NOTES: Notified Dr. Pérez about Ct/abd results. Dr. Pérez states he cleared the patient and will contact Dr. Feliz.
--- NOTE | 2018-08-29 13:45 | NUR ---
RD ASSESSMENT & RECOMMENDATIONS SEE CARE ACTIVITY FOR COMPLETE ASSESSMENT DAILY ESTIMATED NEEDS: Needs based on Diabetes/ 56kg abw 25-30 kcals/kg 0094-7204 total kcals 1-1.5 g protein/kg 56-84 g total protein 25-30 mL/kg 9811-9417 total fluid mLs NUTRITION DIAGNOSIS: * Altered nutrition related lab values R/T diabetes as evidenced by elev BGs (49 244 395), POC glu (223-342), Uglu 3+. (CURRENT DIET: Renal) PO DIET RECOMMENDATIONS--> > DIET CHANGE TO CARDIAC / CCHO LOW ADDITIONAL RECOMMENDATIONS: * Standing wt as able * A1C for evaluation of glycemic control * Monitor BGs closely, need to adjust insulin -> consider long acting insulin
[2018-08-29 16:00] VITALS: BP 129/67
--- NOTE | 2018-08-29 17:16 | NUR ---
CASE MANAGEMENT:REVIEW 07/29/18 SI: VERTIGO. POSSIBLE DIVERTICULITIS 99.2 82 18 129/67 95% ON RA H/H-11.3/34.3 GLUCOSE+244 IS:LEVAQUIN PO Q48 NEURONTIN PO QD NORVASC PO QD ATENOLOL PO BID CARDURA PO QD LISINOPRIL PO QD IVF@100/HR : TELEMETRY STATUS DCP: FROM HOME
--- NOTE | 2018-08-29 19:23 | NUR ---
HAND-OFF: Report given to Dayna Nolasco RN.
--- NOTE | 2018-08-29 19:24 | NUR ---
NURSE NOTES: Received pt from JO-ANN Jamison. Pt awake, alert, and talkative. Bed in lowest positiopn. Call light within reach. Will continue to monitor.
[2018-08-29 20:00] VITALS: BP 143/68
[2018-08-30] VITALS: BP 127/71
[2018-08-30] MEDS: Zolpidem 5mg tab ORAL PRN (00:07)
[2018-08-30 04:00] VITALS: BP 152/69
[2018-08-30] MEDS: NovoLOG Insulin Flexpen SUBQ SCH (06:39)
--- NOTE | 2018-08-30 07:40 | NUR ---
NURSE NOTES: Received pt from Jaimie RN. Pt awake, alert, and talkative. Bed in lowest positiopn. No signs of distress noted. Denied pain. Pt expecting discharge home today. Call light within reach. Will continue to monitor.
--- NOTE | 2018-08-30 07:44 | NUR ---
HAND-OFF: Report given to JO-ANN Chaudhry. Pt stable.
[2018-08-30 08:00] VITALS: BP 156/72
[2018-08-30] MEDS: Heparin 5000 units/ml inj SUBQ SCH (09:00)
[2018-08-30] MEDS: Docusate 100mg cap ORAL SCH (09:59)
[2018-08-30] MEDS: Lisinopril 20mg tab ORAL SCH (09:59)
[2018-08-30] MEDS: Atenolol 25mg tab ORAL SCH (09:59)
[2018-08-30 10:00] VITALS: BP 156/72
[2018-08-30] MEDS: Doxazosin 4mg tab ORAL SCH (10:00)
--- NOTE | 2018-08-30 10:50 | NUR ---
Discharge: Patient is being discharged from medical care. Awake, alert and oriented x4. After care instructions, patient verbalized understanding of After care instructions; at this time patient does not request medications, equipment or placement. Patient signed patient consent in the medical record for patient destination upon discharge. All medical devices such as cardiac monitor technician, IV and ID band were removed. Patient picked up by family member and with all personal belongings with steady gait.
--- NOTE | 2018-08-30 17:33 | General Progress Note ---
Assessment/Plan Assessment/Plan: vertigo dizziness insomnia LLQ tenderness PLAN dc home doing well meclizine prn cleared by gi outpatient follow up impression, plan, and exam edited and reviewed in detail care discussed with RN Subjective Allergies: Coded Allergies: No Known Allergies (Unverified , 07/30/15) Subjective care noted doing well Objective Last 24 Hour Vital Signs Date Time Temp Pulse Resp B/P (MAP) Pulse Ox O2 Delivery O2 Flow Rate FiO2 08/30/18 10:00 87 156/72 08/30/18 09:59 156/72 08/30/18 09:59 87 156/72 08/30/18 09:00 Room Air 08/30/18 08:00 85 08/30/18 08:00 98.4 87 18 156/72 (100) 94 08/30/18 04:00 98.7 84 18 152/69 (96) 96 08/30/18 04:00 77 08/30/18 00:00 77 08/30/18 00:00 98.4 77 18 127/71 (89) 96 08/29/18 21:00 Room Air 08/29/18 20:00 73 08/29/18 20:00 98.3 75 18 143/68 (93) 97 Intake and Output 08/29/18 08/30/18 18:59 06:59 Intake Total 1520 ml Balance 1520 ml Intake Oral 720 ml IV Total 800 ml # Voids 6 2 Height (Feet): 5 Height (Inches): 1.00 Weight (Pounds): 176 Objective WDWN NAD clear breath sounds bilaterally without rhonchi or wheeze [id number] without MRG NABS LLQ tenderness no CCE nonfocal Germán Feliz MD Aug 30, 2018 17:33
--- NOTE | 2018-08-30 21:36 | General Progress Note ---
Assessment/Plan Assessment/Plan: Assessment - LLQ abd pain, improved - CRI - HTN - abnormal LFT Recommendations - push PO - f/u CT - Abx - d/c planning - outpatient colonoscopy Subjective Allergies: Coded Allergies: No Known Allergies (Unverified , 07/30/15) Subjective Feels better pain improved tolerating solids CT done, pending Objective Last 24 Hour Vital Signs Date Time Temp Pulse Resp B/P (MAP) Pulse Ox O2 Delivery O2 Flow Rate FiO2 08/30/18 10:00 87 156/72 08/30/18 09:59 156/72 08/30/18 09:59 87 156/72 08/30/18 09:00 Room Air 08/30/18 08:00 85 08/30/18 08:00 98.4 87 18 156/72 (100) 94 08/30/18 04:00 98.7 84 18 152/69 (96) 96 08/30/18 04:00 77 08/30/18 00:00 77 08/30/18 00:00 98.4 77 18 127/71 (89) 96 Intake and Output 08/29/18 08/30/18 19:00 07:00 Intake Total 1420 ml Balance 1420 ml Intake Oral 720 ml IV Total 700 ml # Voids 6 2 Height (Feet): 5 Height (Inches): 1.00 Weight (Pounds): 176 Objective Obese AA woman NCAT supple CTA RRR abd soft, mild LLQ TTP ext no edema Nonfocal Feliberto Pérez MD Aug 30, 2018 21:36
--- NOTE | 2018-09-02 09:25 | Discharge Summary ---
Discharge Summary Discharge Summary _ DATE OF ADMISSION: 08/24/2018 DATE OF DISCHARGE: 08/30/2018 DISCHARGED BY: Dr. Feliz REASON FOR ADMISSION: 58 years old female with past medical history of hypertension, diabetes mellitus , asthma, GERD, presented to emergency room for evaluation of dizziness for 1 day. Patient described a room spinning sensation , worse with sudden head movement. She noted nausea , but no vomiting . She denied headache. She denied chest pain or shortness of breath. No fever or chills. She denied photophobia or blurry vision. Upon evaluation blood pressure was low 82/57. Laboratory work-up revealed hypokalemia with potassium 3.0, BUN 29 , creatinine 2.9. Magnesium 1.6. Glucose 395. WBC 13.3, hemoglobin 12.1, platelets 315. EKG revealed normal sinus rhythm, no acute ischemic changes. CT of the head revealed no evidence of acute intracranial pathology. In emergency department patient started on the IV fluid. Potassium replaced . Patient admitted to telemetry floor for further management CONSULTANTS: GI specialist Dr. Pérez [facility] COURSE: Patient admitted to telemetry floor. Patient started on the IV hydration. Renal parameters and electrolytes were closely monitored, electrolytes corrected as needed. ( potassium and magnesium). Supportive care provided. Meclizine was on board as needed. Fall precaution maintained. Patient was working with physical therapist. Renal ultrasound revealed normal bilateral kidney echogenicity. No hydronephrosis. BUN from 29 down to 7 and creatinine from 2.9 down to 0.8. Renal failure resolved. Recommended to avoid nephrotoxic and dehydration in future. Echocardiogram revealed preserved ejection fraction of 65% with mild left ventricular hypertrophy. No evidence of wall motion abnormality. Right ventricular systolic pressure of 32. Blood sugar was managed with a sliding scale of insulin. When blood pressure stabilized, patient was started slowly on antihypertensive regimen . DVT prophylaxis provided Patient complained of left lower quadrant abdominal pain. GI specialist followed. CT of the abdomen and pelvis revealed no evidence of acute abdominopelvic pathology. Pain management addressed. Bowel regimen instituted. GI prophylaxis provided. Antiemetic provided as needed. Noted mild elevation in AST with stable ALT. Hemoglobin and hematocrit were closely monitored with goal to keep hemoglobin above 7, prior to discharge hemoglobin 11.3 hematocrit 34.3. Patient initially started on empiric antibiotic for possible UTI. Urine culture was negative. Supportive care provided. Pain resolved. GI specialist cleared for discharge with outpatient follow-up with a GI specialist for outpatient colonoscopy and trend LFT. Dizziness was possibly due to initially low blood pressure and possibly dehydration. With IV hydration blood pressure stabilized. Renal failure resolved. Patient clinically stabilized and was ready for discharge home. FINAL DIAGNOSES: Dizziness -resolved Initial hypotension -resolved Hypertension Acute renal failure - resolved Electrolyte abnormalities ( hypokalemia, hypomagnesemia)-corrected Left lower quadrant abdominal pain -improved Abnormal LFT DISCHARGE MEDICATIONS: See Medication Reconciliation list. DISCHARGE INSTRUCTIONS: Patient was discharged home . Follow up with primary care provider in one week. Follow-up with a GI specialist as outpatient for outpatient colonoscopy and trend LFT. I have been assigned to dictate discharge summary for this account. I was not involved in the patient's management. Maria G Nolasco NP Sep 02, 2018 09:25
== END 2018-08-30 10:50 | disposition home or self-care (01) | DRG 207 ==
LOC: EMR 17:44 → 2E 18:47 → EDBEDREQ 20:18
DX: I95.9 Hypotension, unspecified (principal); N17.9 Acute kidney failure, unspecified; E11.22 Type 2 diabetes mellitus with diabetic chronic kidney disease; E11.65 Type 2 diabetes mellitus with hyperglycemia; E83.42 Hypomagnesemia; R42 Dizziness and giddiness; N18.9 Chronic kidney disease, unspecified; G47.00 Insomnia, unspecified; I10 Essential (primary) hypertension; E86.0 Dehydration; E87.6 Hypokalemia; R10.32 Left lower quadrant pain
CPT/HCPCS: 36415; 70450; 74176; 76770; 80048; 80053; 81001; 82009; 82607; 82746; 82962; 83540; 83550; 83735; 85025; 87086; 93005; 93306; 96361; 96374; 99285; J1815; J2765; J8499

== ENCOUNTER 2018-11-17 17:33 | Emergency (ER) | payer MEDICAID ==
[~2018-11-17] VITALS: Ht 157.5 cm; Wt 78.9 kg
[2018-11-17] MEDS ORDERED: NKM (17:41)
[2018-11-17] MEDS ORDERED: Dexamethasone 4mg/ml vial IVP ONE (18:00)
[2018-11-17] MEDS ORDERED: DiphenhydrAMINE 50mg/ml Inj IVP ONE (18:00)
--- NOTE | 2018-11-17 18:12 | NUR ---
ED Nurse Note: Pt came in fom home due to dizziness and headache x 1 week. Pt has hx of HTN but has not taken her medications x 2 months. BP 199/110 upon arrival, ERMD aware. Pain 10/10 annalisa. Will cont to monitor.
[2018-11-17] MEDS ORDERED: Dexamethasone 20mg/5ml IVP ONE (18:15)
[2018-11-17 18:19] LABS: APPEARANCE,URINE CLEAR; BILIRUBIN, URINE NEGATIVE (NEGATIVE); COLOR,URINE PALE YELLOW; GLUCOSE, URINE (UA) 4+ (NEGATIVE); KETONES,URINE NEGATIVE (NEGATIVE); LEUKOCYTE ESTERASE ,URINE 1+ (NEGATIVE); NITRITE,URINE NEGATIVE (NEGATIVE); PH,URINE 6.5 (4.5-8.0); PROTEIN,URINE 3+ (NEGATIVE); UROBILINOGEN,URINE NORMAL MG/DL (0.0-1.0)
[2018-11-17 18:28] LABS: ANION GAP 12 mmol/L (5-15); BLOOD UREA NITROGEN 11 mg/dL (7-18); CALCIUM 8.6 MG/DL (8.5-10.1); CARBON DIOXIDE 25 MMOL/L (21-32); CHLORIDE 96 MMOL/L (98-107); CREATININE 0.8 MG/DL (0.55-1.30); POTASSIUM 3.6 MMOL/L (3.5-5.1); SODIUM 133 MMOL/L (136-145)
[2018-11-17 18:29] LABS: INR 1.1 (0.9-1.1)
[2018-11-17 18:31] VITALS: BP 186/106
--- NOTE | 2018-11-17 18:31 | Emergency Room Report ---
History of Present Illness General Chief Complaint: Dizziness Source: Patient, Medical Record Present Illness HPI 58-year-old female presents with the room spinning, patient states that this happened before every time she stands up or walks around or changes position she has a violent sensation of the room spinning lasts about 2 minutes and self resolves, patient states she had medication in the past that helped resolve day , denies any chest pain shortness of breath she also endorses a mild headache with nausea and vomiting due to the spinning not sudden not the worst headache of her life, patient states that all the symptoms started 2 days ago. No chest pain or shortness of breath. Patient presents for evaluation Allergies: Coded Allergies: No Known Allergies (Unverified , 07/30/15) Patient History Past Medical History: see triage record Reviewed Nursing Documentation: PMH: Agreed; PSxH: Agreed Nursing Documentation-PMH Past Medical History: No History, Except For Hx Cardiac Problems: Yes Hx Hypertension: Yes Hx Asthma: Yes Hx Diabetes: Yes Hx Cancer: No Hx Gastrointestinal Problems: Yes - Gastritis Hx Neurological Problems: No Hx Dizziness: Yes Review of Systems All Other Systems: negative except mentioned in HPI Physical Exam Vital Signs Date Time Temp Pulse Resp B/P (MAP) Pulse Ox O2 Delivery O2 Flow Rate FiO2 11/17/18 17:39 99.0 107 18 199/110 (139) 96 Room Air Sp02 EP Interpretation: reviewed, normal General Appearance: well appearing, no apparent distress, alert Head: normocephalic, atraumatic Eyes: bilateral eye PERRL, bilateral eye EOMI ENT: uvula midline, moist mucus membranes Neck: supple, thyroid normal, supple/symm/no masses Respiratory: lungs clear, no respiratory distress, no retraction, no accessory muscle use Cardiovascular #1: normal peripheral pulses, regular rate, rhythm, no edema, no gallop, no murmur Gastrointestinal: non tender, soft, no guarding, no rebound Musculoskeletal: normal inspection 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, oriented x3, metal sprayer production III-XII nml as tested, normal gait, speech normal, other - Fatigable nystagmus left side, Romberg negative no pronator drift, 5 out of 5 strength upper and lower extremities, finger-nose testing intact Psychiatric: mood/affect normal Skin: no rash, warm/dry Medical Decision Making Diagnostic Impression: Primary Impression: Dizziness Additional Impressions: BPPV (benign paroxysmal positional vertigo) Qualified Codes: H81.12 - Benign paroxysmal vertigo, left ear Transaminitis CRESPO (nonalcoholic steatohepatitis) ER Course 58-year-old female presents with most likely BPPV, patient has a history of BPPV , neuro exam is nonfocal with fatigable nystagmus, no focal neuro deficits, will provide migraine cocktail, Benadryl and reevaluate. Reevaluation 6:47 PM, patient's dizziness has since resolved she feels better, patient given hydration, heart rate improved, patient has a transaminitis, she is morbidly obese, may be secondary to fatty liver, patient has no right upper quadrant tenderness, patient counseled to follow-up with GI and also to lose weight will provide patient with Antivert disposition home with return precautions Laboratory Tests Test 11/17/18 18:00 11/17/18 18:05 11/17/18 18:55 Urine Color Pale yellow Urine Appearance Clear Urine pH 6.5 (4.5-8.0) Urine Specific [place] 1.010 (1.005-1.035) Urine Protein 3+ (NEGATIVE) H Urine Glucose (UA) 4+ (NEGATIVE) H Urine Ketones Negative (NEGATIVE) Urine Blood 1+ (NEGATIVE) H Urine Nitrite Negative (NEGATIVE) Urine Bilirubin Negative (NEGATIVE) Urine Urobilinogen Normal MG/DL (0.0-1.0) Urine Leukocyte Esterase 1+ (NEGATIVE) H Urine RBC 2-4 /HPF (0 - 2) H Urine WBC 5-10 /HPF (0 - 2) H Urine Squamous Epithelial Cells Occasional /LPF Urine Bacteria None /HPF (NONE) Prothrombin Time 11.2 SEC (9.30-11.50) Prothrombin Time INR 1.1 (0.9-1.1) PTT 24 SEC (23-33) Sodium Level 133 MMOL/L (136-145) L Potassium Level 3.6 MMOL/L (3.5-5.1) Chloride Level 96 MMOL/L (98-107) L Carbon Dioxide Level 25 MMOL/L (21-32) Anion Gap 12 mmol/L (5-15) Blood Urea Nitrogen 11 mg/dL (7-18) Creatinine 0.8 MG/DL (0.55-1.30) Estimate Glomerular Filtration Rate > 60 mL/min (>60) Glucose Level 308 MG/DL (74-106) H Calcium Level 8.6 MG/DL (8.5-10.1) Total Bilirubin 0.7 MG/DL (0.2-1.0) Aspartate Amino Transferase (AST) 120 U/L (15-37) H Alanine Aminotransferase (ALT) 112 U/L (12-78) H Alkaline Phosphatase 234 U/L (46-116) H Total Protein 8.4 G/DL (6.4-8.2) H Albumin 3.4 G/DL (3.4-5.0) Globulin 5.0 g/dL Albumin/Globulin Ratio 0.7 (1.0-2.7) L Lipase Pending White Blood Count 6.9 K/UL (4.8-10.8) Red Blood Count 4.81 M/UL (4.20-5.40) Hemoglobin 14.0 G/DL (12.0-16.0) Hematocrit 40.4 % (37.0-47.0) Mean Corpuscular Volume 84 FL (80-99) Mean Corpuscular Hemoglobin 29.1 PG (27.0-31.0) Mean Corpuscular Hemoglobin Concent 34.6 G/DL (32.0-36.0) Red Cell Distribution Width 9.7 % (11.6-14.8) L Platelet Count 241 K/UL (150-450) Mean Platelet Volume 6.7 FL (6.5-10.1) Neutrophils (%) (Auto) 74.1 % (45.0-75.0) Lymphocytes (%) (Auto) 19.1 % (20.0-45.0) L Monocytes (%) (Auto) 5.0 % (1.0-10.0) Eosinophils (%) (Auto) 0.8 % (0.0-3.0) Basophils (%) (Auto) 0.9 % (0.0-2.0) EKG Diagnostic Results EKG Time: 17:55 EP Interpretation: Sinus tachycardia, rate 109, QTc 482, no acute ST elevations , normal axis Rate: tachycardiac Rhythm: other - Tachycardia ST Segments: no acute changes Rhythm Strip Diag. Results Rhythm Strip Time: 18:31 EP Interpretation: yes Rate: 97 Rhythm: NSR, no PVC's, no ectopy CT/MRI/US Diagnostic Results CT/MRI/US Diagnostic Results : Impression Preliminary Findings Only See Final Report For Complete Findings CT HEAD Without Contrast: No acute intracranial process. Radiologist: Kal Mtz M.D. Study ready at 19:56 and initial results transmitted at 19:57 Last Vital Signs Date Time Temp Pulse Resp B/P (MAP) Pulse Ox O2 Delivery O2 Flow Rate FiO2 11/17/18 18:13 107 18 Room Air 11/17/18 17:39 99.0 199/110 (139) 96 Disposition: HOME, SELF-CARE Condition: Stable Scripts Meclizine Hcl (MECLIZINE HCL) 25 Mg Tab.chew 25 MG ORAL THREE TIMES A DAY PRN for for dizziness, #30 TAB Prov: Carlin Catherine MD 11/17/18 Referrals: [facility] Patient Instructions: Dehydration, Adult, [id number], Vertigo Additional Instructions: The patient was provided with discharge instructions, notified to follow-up with a primary care doctor and or specialist in the next 24-48 hours, and to return to the ED if they have worsening of their symptoms. Please note that this report is being documented using [employer] technology. This can lead to erroneous entry secondary to incorrect interpretation by the dictating instrument. FOLLOW-UP WITH NEUROLOGY, AND GI, AND PCP Carlin Lake MD Nov 17, 2018 18:31
[2018-11-17 18:33] LABS: ALANINE AMINOTRANSFERASE 112 U/L (12-78); ALBUMIN 3.4 G/DL (3.4-5.0); ALBUMIN/GLOBULIN RATIO 0.7 (1.0-2.7); ALKALINE PHOSPHATASE 234 U/L (46-116); ASPARTATE AMINO TRANSFERASE 120 U/L (15-37); BILIRUBIN,TOTAL 0.7 MG/DL (0.2-1.0)
[2018-11-17] MEDS ORDERED: MECLIZINE HCL25 M1 ORAL (19:18)
[2018-11-17 19:32] LABS: BASOPHILS % (AUTO) 0.9 % (0.0-2.0); EOSINOPHILS % (AUTO) 0.8 % (0.0-3.0); HEMATOCRIT 40.4 % (37.0-47.0); LYMPHOCYTES % (AUTO) 19.1 % (20.0-45.0); MEAN CORPUSCULAR VOLUME 84 FL (80-99); NEUTROPHILS % (AUTO) 74.1 % (45.0-75.0); PLATELET COUNT 241 K/UL (150-450); RED BLOOD COUNT 4.81 M/UL (4.20-5.40); RED CELL DISTRIBUTION WIDTH 9.7 % (11.6-14.8); WHITE BLOOD COUNT 6.9 K/UL (4.8-10.8)
--- NOTE | 2018-11-17 19:58 | Diagnostic Imaging Report ---
. Indication: Headache Technique: Continuous helical CT scanning of the head was performed without intravenous contrast material. Axial and coronal 5 mm sections were generated. Radiation dose was minimized using automated exposure control Dose: Total Dose Length Product - DLP 1376.[address] Dose Index - CTDIvol(s) 70.38 mGy. Comparison: none Findings: There is some image degradation due to motion artifact. The ventricular system is normal in size and configuration. There is no shift of midline structures. No abnormal extra-axial fluid collections are noted. There is no evidence of intracerebral bleeding. No other abnormal high or low density areas are noted within the brain. The calvarium is intact. The sinuses are clear. The orbits are unremarkable. Impression: Normal CT scan of the head without contrast material. Note somewhat limited images of the skull base due to motion artifact This agrees with the preliminary interpretation provided overnight by [facility] teleradiology service. The CT scanner at [facility] is accredited by the [employer] and the scans are performed using protocols designed to limit radiation exposure to as low as reasonably achievable to attain images of sufficient resolution adequate for diagnostic evaluation.
[2018-11-17 20:03] VITALS: BP 183/91
[2018-11-17] MEDS ORDERED: NORVASC10 MG ORAL (20:06)
[2018-11-17] MEDS ORDERED: Acetaminophen 500mg (ES) tab ORAL ONE ×2 (20:15→20:16)
--- NOTE | 2018-11-17 20:19 | NUR ---
ED Nurse Note: Patient cleared for discharge, ambulatory with steady gait, A&ox4, no s/s of acute distress. Patient medicated for back pain prior to departure. Patient given discharge information per ERMD instructions. Patient departed with all belongings accompanied by her friend.
[2018-11-17 20:21] VITALS: BP 183/91
--- NOTE | 2018-11-20 13:06 | Cardiology Report ---
APPROVED REPORT EKG Measurement Heart [id number] Sinus tachycardia Otherwise normal ECG
== END 2018-11-17 20:22 | disposition home or self-care (01) ==
LOC: EMR 20:09
DX: H81.12 Benign paroxysmal vertigo, left ear (principal); R74.0 Nonspecific elevation of levels of transaminase and lactic acid dehydrogenase [LDH]; K75.81 Nonalcoholic steatohepatitis (NASH); E11.9 Type 2 diabetes mellitus without complications; I10 Essential (primary) hypertension; J45.909 Unspecified asthma, uncomplicated
CPT/HCPCS: 36415; 70450; 80053; 81003; 83690; 85025; 85610; 85730; 93005; 96361; 96374; 96375; 99284; J0780; J1100; J1200; S0028

== ENCOUNTER 2019-09-03 22:03 | Inpatient (IN) | payer MEDICAID ==
[~2019-09-03] VITALS: Ht 157.5 cm; Wt 73.3 kg
[~2019-09-03 22:03] MED LIST changes: +MECLIZINE HCL25 M1 ORAL; +NKM; +NORVASC10 MG ORAL
[2019-09-03 22:30] VITALS: BP 194/94
[2019-09-03] MEDS ORDERED: Sodium Chloride 2,200 ML IVLG ONE (22:30)
--- NOTE | 2019-09-03 22:31 | Emergency Room Report ---
History of Present Illness General Chief Complaint: Dyspnea/Respdistress Present Illness HPI 59-year-old female history of hypertension, asthma, diabetes presents for shortness of breath. She said shortness of breath and cough for the past 2 weeks. Asthma inhalers have not helped. She reports shortness of breath on exertion and when sleeping at night. She has had a dry cough during this time. She denies any sick contacts. She denies any nausea vomiting or diarrhea. She does report chest pain with the shortness of breath that is worse with coughing and nonradiating. Allergies: Coded Allergies: No Known Allergies (Unverified , 07/30/15) COVID-19 Screening Contact w/high risk pt: No Recent Travel to affected area: No Experienced COVID-19 symptoms?: Yes COVID-19 symptoms experienced: Shortness of Breath, Cough COVID-19 Testing performed CAR WIPER: No Patient History Now: No Reviewed Nursing Documentation: PMH: Agreed; PSxH: Agreed Nursing Documentation-PMH Hx Cardiac Problems: Yes Hx Hypertension: Yes Hx Asthma: Yes Hx Diabetes: Yes Hx Cancer: No Hx Gastrointestinal Problems: Yes - Gastritis Hx Neurological Problems: No Hx Dizziness: Yes Review of Systems All Other Systems: negative except mentioned in HPI Physical Exam Vital Signs Date Time Temp Pulse Resp B/P (MAP) Pulse Ox O2 Delivery O2 Flow Rate FiO2 09/03/19 22:19 Room Air Sp02 EP Interpretation: reviewed, other - Low normal General Appearance: well appearing, mild distress Head: normocephalic, atraumatic Eyes: bilateral eye PERRL, bilateral eye EOMI ENT: hearing grossly normal, moist mucus membranes Neck: full range of motion, supple Respiratory: no rhonchi, no retraction, no wheezing, respiratory distress - Mild respiratory distress Cardiovascular #1: normal peripheral pulses, no murmur, tachycardia Gastrointestinal: non tender, soft, non-distended, no guarding 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, oriented x3, no focal defects Skin: normal color, warm/dry Procedures Critical Care Time Critical Care Time Critical care is made on the patient due to presentation with concern for pneumonia and lung mass with tachycardia and shortness of breath requiring my acute intervention. Critical care time is 37 minutes and excludes procedures Medical Decision Making Diagnostic Impression: Primary Impression: Lung mass Additional Impressions: Pneumonia Shortness of breath ER Course MDM: Patient presented with shortness of breath cough and generalized malaise. She did have a borderline fever on arrival with low normal O2 sat. Differential diagnosis included but not limited to pneumonia, lung mass, coronavirus infection, CHF to name a few Clinical course-on arrival patient in mild respiratory distress, low O2 sat with borderline fever. Chest x-ray demonstrated large right upper lobe infiltrate versus mass. Due to her fever cough shortness of breath and concern for infiltrate versus mass IV antibiotics were given. CT scan of the chest was ordered and it did demonstrate evidence of a lung mass. I do believe patient most likely has obstructive pneumonia as well. She will require admission to the telemetry floor for further observation and treatment. Patient admitted to the hospitalist on-call. White blood cell count was 25,000, lactate mildly elevated, Labs - Laboratory Tests Test 09/03/19 23:00 09/04/19 00:40 White Blood Count 25.8 K/UL (4.8-10.8) *H Red Blood Count 3.39 M/UL (4.20-5.40) L Hemoglobin 9.4 G/DL (12.0-16.0) L Hematocrit 27.5 % (37.0-47.0) L Mean Corpuscular Volume 81 FL (80-99) Mean Corpuscular Hemoglobin 27.9 PG (27.0-31.0) Mean Corpuscular Hemoglobin Concent 34.4 G/DL (32.0-36.0) Red Cell Distribution Width 13.5 % (11.6-14.8) Platelet Count 927 K/UL (150-450) H Mean Platelet Volume 4.2 FL (6.5-10.1) L Neutrophils (%) (Auto) % (45.0-75.0) Lymphocytes (%) (Auto) % (20.0-45.0) Monocytes (%) (Auto) % (1.0-10.0) Eosinophils (%) (Auto) % (0.0-3.0) Basophils (%) (Auto) % (0.0-2.0) Differential Total Cells Counted 100 Neutrophils % (Manual) 87 % (45-75) H Lymphocytes % (Manual) 10 % (20-45) L Monocytes % (Manual) 3 % (1-10) Eosinophils % (Manual) 0 % (0-3) Basophils % (Manual) 0 % (0-2) Band Neutrophils 0 % (0-8) Platelet Estimate Increased H Platelet Morphology Normal Prothrombin Time 12.9 SEC (9.30-11.50) H Prothrombin Time INR 1.2 (0.9-1.1) H Activated Partial Thromboplast Time 29 SEC (23-33) Urine Color Yellow Urine Appearance Clear Urine pH 7 (4.5-8.0) Urine Specific [place] 1.010 (1.005-1.035) Urine Protein 3+ (NEGATIVE) H Urine Glucose (UA) 4+ (NEGATIVE) H Urine Ketones Negative (NEGATIVE) Urine Blood 1+ (NEGATIVE) H Urine Nitrite Negative (NEGATIVE) Urine Bilirubin Negative (NEGATIVE) Urine Urobilinogen 12 MG/DL (0.0-1.0) H Urine Leukocyte Esterase 2+ (NEGATIVE) H Urine RBC 0-2 /HPF (0 - 2) Urine WBC 20-30 /HPF (0 - 2) H Urine Squamous Epithelial Cells Few /LPF (NONE/OCC) Urine Bacteria Few /HPF (NONE) Sodium Level 139 MMOL/L (136-145) Potassium Level 3.6 MMOL/L (3.5-5.1) Chloride Level 100 MMOL/L (98-107) Carbon Dioxide Level 27 MMOL/L (21-32) Anion Gap 12 mmol/L (5-15) Blood Urea Nitrogen 13 mg/dL (7-18) Creatinine 0.8 MG/DL (0.55-1.30) Estimated Glomerular Filtration Rate > 60 mL/min (>60) Glucose Level 72 MG/DL (74-106) L Lactic Acid Level 2.40 mmol/L (0.4-2.0) H 1.40 mmol/L (0.66-2.22) Calcium Level 8.8 MG/DL (8.5-10.1) Magnesium Level 1.4 MG/DL (1.8-2.4) L Total Bilirubin 0.7 MG/DL (0.2-1.0) Aspartate Amino Transferase (AST) 91 U/L (15-37) H Alanine Aminotransferase (ALT) 72 U/L (12-78) Alkaline Phosphatase 1145 U/L (46-116) H Total Creatine Kinase 98 U/L (26-308) Creatine Kinase MB 0.8 NG/ML (0.0-3.6) Creatine Kinase MB Relative Index 0.8 Troponin I 0.021 ng/mL (0.000-0.056) Pro-B-Type Natriuretic Peptide 3701 pg/mL (0-125) H Total Protein 8.8 G/DL (6.4-8.2) H Albumin 2.1 G/DL (3.4-5.0) L Globulin 6.7 g/dL Albumin/Globulin Ratio 0.3 (1.0-2.7) L On reevaluation: Patient's tachycardia improved, Plan-plan to admit to the hospital. EKG Diagnostic Results Rate: tachycardiac Rhythm: other - Sinus tachycardia ST Segments: no acute changes Other Impression PACs, impression sinus tachycardia Rhythm Strip Diag. Results EP Interpretation: yes Rate: 100 Rhythm: no PVC's, no ectopy, other - Sinus tachycardia Chest X-Ray Diagnostic Results Chest X-Ray Diagnostic Results : Chest X-Ray Ordered: Yes # of Views/Limited/Complete: 1 View Indication: Shortness of Breath Interpretation: other - Large right upper lobe infiltrate versus mass, no pneumothorax Electronically Signed by: Juan Bowen MD Last Vital Signs Date Time Temp Pulse Resp B/P (MAP) Pulse Ox O2 Delivery O2 Flow Rate FiO2 09/03/19 22:19 Room Air Disposition: ADMITTED INPATIENT Condition: Serious Juan Bowen M.D. Sep 03, 2019 22:31
--- NOTE | 2019-09-03 23:07 | Diagnostic Imaging Report ---
EXAM: XR Chest, 1 View CLINICAL HISTORY: SOB TECHNIQUE: Frontal view of the chest. COMPARISON: No relevant prior studies available. FINDINGS: Large masslike area of increased attenuation in the right apex extending into at least the perihilar and probably infrahilar region of the right hemithorax. Finding of unknown etiology and CT chest with contrast is recommended.
[2019-09-03] MEDS ORDERED: Azithromycin 500 MG in NS 275 ML IV ONE (23:30)
[2019-09-03] MEDS ORDERED: cefTRIAXone 1 GM in NS 55 ML IVPB ONE (23:30)
[2019-09-03 23:42] LABS: APPEARANCE,URINE CLEAR; BILIRUBIN, URINE NEGATIVE (NEGATIVE); GLUCOSE, URINE (UA) 4+ (NEGATIVE); HEMATOCRIT 27.5 % (37.0-47.0); HEMOGLOBIN 9.4 G/DL (12.0-16.0); KETONES,URINE NEGATIVE (NEGATIVE); LEUKOCYTE ESTERASE ,URINE 2+ (NEGATIVE); MEAN CORPUSCULAR VOLUME 81 FL (80-99); NITRITE,URINE NEGATIVE (NEGATIVE); PH,URINE 7 (4.5-8.0); PLATELET COUNT 927 K/UL (150-450); PROTEIN,URINE 3+ (NEGATIVE); RED BLOOD COUNT 3.39 M/UL (4.20-5.40); RED CELL DISTRIBUTION WIDTH 13.5 % (11.6-14.8); UROBILINOGEN,URINE 12 MG/DL (0.0-1.0)
[2019-09-03 23:45] LABS: WHITE BLOOD COUNT 25.8 K/UL (4.8-10.8)
[2019-09-03 23:52] LABS: COLOR,URINE YELLOW
[2019-09-03 23:56] LABS: ANION GAP 12 mmol/L (5-15); BLOOD UREA NITROGEN 13 mg/dL (7-18); CALCIUM 8.8 MG/DL (8.5-10.1); CARBON DIOXIDE 27 MMOL/L (21-32); CHLORIDE 100 MMOL/L (98-107); CREATININE 0.8 MG/DL (0.55-1.30); POTASSIUM 3.6 MMOL/L (3.5-5.1); SODIUM 139 MMOL/L (136-145)
[2019-09-04] VITALS (8 sets, daily range): BP systolic 101–193; BP diastolic 62–105
[2019-09-04 00:09] LABS: INR 1.2 (0.9-1.1)
[2019-09-04 00:10] LABS: ALANINE AMINOTRANSFERASE 72 U/L (12-78); ALBUMIN 2.1 G/DL (3.4-5.0); ALBUMIN/GLOBULIN RATIO 0.3 (1.0-2.7); ALKALINE PHOSPHATASE 1145 U/L (46-116); ASPARTATE AMINO TRANSFERASE 91 U/L (15-37); BILIRUBIN,TOTAL 0.7 MG/DL (0.2-1.0); CKMB 0.8 NG/ML (0.0-3.6); CREATINE KINASE 98 U/L (26-308)
[2019-09-04] MEDS ORDERED: Albuterol 90mcg Inhaler 8gm INH ONE (00:30)
--- NOTE | 2019-09-04 02:11 | Diagnostic Imaging Report ---
EXAM: CT Chest With Intravenous Contrast CLINICAL HISTORY: MASS TECHNIQUE: Axial computed tomography images of the chest with intravenous contrast. CTDI is 2, 101 and 12 mGy and DLP is 2, 20 and 404 mGy-cm. One or more of the following dose reduction techniques were used: automated exposure control, adjustment of the mA and/or kV according to patient size, use of iterative reconstruction technique. COMPARISON: 03/31/18 FINDINGS: Artifacts: Motion degraded study. Lungs: See below. Pleural space: No pneumothorax. No significant effusion. Heart: Unremarkable. No cardiomegaly. No significant pericardial effusion. Mediastinum: Large irregular heterogeneously enhancing mass occupies the near entirety of the right apex with the mass contacting all pleural surfaces and the apex. Mass invades the right mediastinum and mass continues into the right middle lobe. Mass partially surrounds the SVC with invasion into both the mediastinum and the pericardium on the right. Mass contacts the right main pulmonary artery and extends to partially surround bronchovascular structures in the proximal right hilum. Regular calcifications are present in the central portion of the mass. There is also irregular low attenuation centrally suggesting tumor necrosis. The mass surrounds the previously noted low attenuation right perihilar abnormalities noted on the prior study. Approximate overall dimensions of the primary mass approximately 9.7 cm craniocaudad, 12 cm AP and 7.6 cm transverse. Multiple adjacent nodules right upper lobe and confluent nodules that include the lateral periphery of the right upper lobe and right middle lobe. Bones/joints: No definitive bony invasion. No acute fracture. No dislocation. Soft tissues: Unremarkable. Vasculature: See above. Lymph nodes: Perivascular, paratracheal and subcarinal lymphadenopathy that are separate from the primary mass. IMPRESSION: Large heterogeneous mass centered in the right upper lobe most consistent with malignancy detailed above. Tissue diagnosis and pulmonary consultation recommended. <MYCVCSECTION> Communications: 09/04/19 02:19 Verify Receipt Verified receipt with [facility] for Dr. Fair on 09/03 02:19 (-07:00)
[2019-09-04] MEDS ORDERED: Solu-MEDROL 125mg Inj ONE (04:14)
[2019-09-04] MEDS ORDERED: Solu-MEDROL 125mg Inj IVP ONE (04:30)
[2019-09-04] MEDS: NovoLOG Insulin Flexpen SUBQ SCH ×4 (06:30→20:43)
[2019-09-04] MEDS: Levofloxacin 500mg tab ORAL SCH (08:54)
[2019-09-04] MEDS: Atenolol 25mg tab ORAL SCH ×2 (08:56→18:07)
[2019-09-04] MEDS: hydroCHLOROthiazide 25mg cap ORAL SCH (08:56)
[2019-09-04] MEDS: Enoxaparin 40mg Inj SUBQ SCH (08:57)
[2019-09-04] MEDS: Doxazosin 4mg tab ORAL SCH (10:00)
--- NOTE | 2019-09-04 12:00 | History and Physical Report ---
DATE OF ADMISSION: 09/03/2019 CHIEF COMPLAINT: Shortness of breath. HISTORY OF PRESENT ILLNESS: The patient is a 59-year-old female. She has a history of diabetes and hypertension presented with complaints of two weeks of progressive shortness of breath. She has had intractable coughing. She denies any fevers or chills. On evaluation in the emergency room, the patient had a low-grade temperature of 100. She had a mildly elevated lactic acid level of 2.4. Her white count was 25,000. Her chest x-ray showed large masslike area of increasing attenuation in the right apex. CT scan done later in the ER showed a large heterogeneous mass centered in the right upper lobe most consistent with malignancy. The patient is now admitted for further evaluation and care. PAST MEDICAL HISTORY: As above. PAST SURGICAL HISTORY: Includes a recent biopsy approximately 2 months ago. MEDICATIONS: Reconciled and reviewed. ALLERGIES: None. FAMILY HISTORY: Noncontributory. PHYSICAL EXAMINATION: VITAL SIGNS: Temperature 98, pulse 115, respirations 22, blood pressure 164/98. GENERAL: The patient is well developed, in no apparent distress. HEART: Regular rate and rhythm. LUNGS: Clear. ABDOMEN: Soft. EXTREMITIES: Without clubbing, cyanosis, or edema. LABORATORY DATA: White count 26,000, hemoglobin 9.4. Sodium 139, potassium 3.6. Magnesium 1.4. UA showed 20 to 30 wbc's. ASSESSMENT: This is a 59-year-old female with diabetes and hypertension admitted with shortness of breath likely secondary to a large mass involving most of the right lung, likely has postobstructive pneumonia and urinary tract infection. PLAN: 1. IV antibiotics. 2. Respiratory treatments. 3. Consider transfer to a tertiary hospital. 4. Pulmonary and Hematology-Oncology evaluations will be obtained. Delmer Perkins M.D. DR: CASE JOB#: [id number] CC:
[2019-09-05] VITALS: BP 115/62
[2019-09-05] MEDS: cefTRIAXone 1 GM in D5W 55 ML IVPB SCH ×2 (00:15→22:43)
[2019-09-05 04:00] VITALS: BP 146/81
[2019-09-05] MEDS ORDERED: Promethazine/Codeine 5ml UD ORAL PRN (05:45)
[2019-09-05] MEDS: NovoLOG Insulin Flexpen SUBQ SCH ×4 (06:21→22:38)
[2019-09-05 08:00] VITALS: BP 124/69
--- NOTE | 2019-09-05 08:47 | General Progress Note ---
Assessment/Plan Problem List: (1) Lung mass ICD Codes: R91.8 - Other nonspecific abnormal finding of lung field SNOMED: 884458827 (2) Pneumonia ICD Codes: J18.9 - Pneumonia, unspecified organism SNOMED: 650141166 Status: stable Assessment/Plan: cont iv abx wean o2 resp rx try to get records from outside hospital limited rx options for lung mass- needs higher level of care. can follow up with pmd if continues to improve Subjective ROS Limited/Unobtainable: No Constitutional: Reports: malaise, weakness HEENT: Reports: no symptoms Cardiovascular: Reports: no symptoms Respiratory: Reports: cough Gastrointestinal/Abdominal: Reports: no symptoms Genitourinary: Reports: no symptoms Neurologic/Psychiatric: Reports: no symptoms Endocrine: Reports: no symptoms Hematologic/Lymphatic: Reports: no symptoms Allergies: Coded Allergies: No Known Allergies (Unverified , 07/30/15) All Systems: reviewed and negative except above Subjective decreased sob. no chest pain c/o cough. on 2L NC Objective Last 24 Hour Vital Signs Date Time Temp Pulse Resp B/P (MAP) Pulse Ox O2 Delivery O2 Flow Rate FiO2 09/05/19 04:00 99.0 88 18 146/81 (102) 95 09/05/19 04:00 77 09/05/19 00:00 80 09/05/19 00:00 99.2 80 18 115/62 (79) 95 09/04/19 21:00 Room Air 09/04/19 20:00 98.8 77 18 104/65 (78) 96 09/04/19 20:00 74 09/04/19 18:07 78 120/62 09/04/19 16:00 74 09/04/19 16:00 97.9 78 18 120/62 (81) 99 09/04/19 13:20 76 09/04/19 13:00 Nasal Cannula 2.0 09/04/19 13:00 97.5 72 18 101/64 (76) 99 09/04/19 12:08 98.8 80 19 158/76 100 Room Air 09/04/19 11:41 80 19 158/76 100 Room Air 09/04/19 10:29 83 19 183/92 100 Room Air 09/04/19 09:24 98.8 112 19 193/105 97 Room Air 09/04/19 08:56 102 193/105 6/8/20 08:55 102 193/105 Intake and Output 09/04/19 09/05/19 19:00 07:00 Output Total 100 ml Balance -100 ml Output Urine Total 100 ml # Voids 1 Height (Feet): 5 Height (Inches): 2.00 Weight (Pounds): 162 General Appearance: WD/WN Neck: supple Cardiovascular: regular rhythm Respiratory/Chest: decreased breath sounds Abdomen: normal bowel sounds, non tender, soft, no organomegaly Edema: no edema noted Arm (L), no edema noted Arm (R), no edema noted Leg (L), no edema noted Leg (R), no edema noted Pedal (L), no edema noted Pedal (R), no edema noted Generalized Delmer Perkins MD Sep 05, 2019 08:47
[2019-09-05] MEDS: Enoxaparin 40mg Inj SUBQ SCH (09:00)
[2019-09-05 09:10] LABS: HEMOGLOBIN 9.1 G/DL (12.0-16.0); MEAN CORPUSCULAR VOLUME 83 FL (80-99); PLATELET COUNT 824 K/UL (150-450); RED BLOOD COUNT 3.26 M/UL (4.20-5.40); RED CELL DISTRIBUTION WIDTH 13.8 % (11.6-14.8)
[2019-09-05 09:11] LABS: WHITE BLOOD COUNT 26.3 K/UL (4.8-10.8)
[2019-09-05] MEDS ORDERED: Amiodarone 200mg tab ORAL SCH (09:30)
[2019-09-05 09:37] LABS: ALANINE AMINOTRANSFERASE 43 U/L (12-78); ALBUMIN 1.8 G/DL (3.4-5.0); ALBUMIN/GLOBULIN RATIO 0.3 (1.0-2.7); ALKALINE PHOSPHATASE 818 U/L (46-116); ANION GAP 9 mmol/L (5-15); ASPARTATE AMINO TRANSFERASE 52 U/L (15-37); BILIRUBIN,TOTAL 0.4 MG/DL (0.2-1.0); BLOOD UREA NITROGEN 36 mg/dL (7-18); CARBON DIOXIDE 27 MMOL/L (21-32); CHLORIDE 98 MMOL/L (98-107); CREATININE 1.3 MG/DL (0.55-1.30); POTASSIUM 3.5 MMOL/L (3.5-5.1); SODIUM 134 MMOL/L (136-145)
[2019-09-05] MEDS: Atenolol 25mg tab ORAL SCH ×2 (09:45→18:17)
[2019-09-05] MEDS: Levofloxacin 500mg tab ORAL SCH (09:45)
[2019-09-05] MEDS: Doxazosin 4mg tab ORAL SCH (09:46)
[2019-09-05] MEDS: hydroCHLOROthiazide 25mg cap ORAL SCH (09:46)
[2019-09-05] MEDS: Promethazine/Codeine 5ml UD ORAL PRN ×3 (09:49→22:42)
[2019-09-05 12:00] VITALS: BP 124/73
[2019-09-05] MEDS ORDERED: Vancomycin 1.5gm/NS Premix IVPB ONE (14:00)
[2019-09-05 16:00] VITALS: BP 120/71
[2019-09-05 22:00] VITALS: BP 153/98
[2019-09-06] VITALS: BP 134/64
[2019-09-06] MEDS: Vancomycin 750mg/NS 275ml IVPB SCH ×4 (02:15→13:02)
[2019-09-06 04:00] VITALS: BP 135/69
[2019-09-06] MEDS: Promethazine/Codeine 5ml UD ORAL PRN ×2 (04:44→20:52)
[2019-09-06] MEDS: NovoLOG Insulin Flexpen SUBQ SCH ×4 (06:42→21:02)
[2019-09-06 08:00] VITALS: BP 153/77
[2019-09-06] MEDS: hydroCHLOROthiazide 25mg cap ORAL SCH (09:01)
[2019-09-06] MEDS: Atenolol 25mg tab ORAL SCH ×2 (09:01→18:33)
[2019-09-06] MEDS: Doxazosin 4mg tab ORAL SCH (09:01)
[2019-09-06] MEDS: Enoxaparin 40mg Inj SUBQ SCH (09:03)
--- NOTE | 2019-09-06 09:42 | General Progress Note ---
Assessment/Plan Problem List: (1) Lung mass ICD Codes: R91.8 - Other nonspecific abnormal finding of lung field SNOMED: 381577234 (2) Pneumonia ICD Codes: J18.9 - Pneumonia, unspecified organism SNOMED: 252160930 Status: stable Assessment/Plan: cont iv abx wean o2 resp rx try to get records from outside hospital limited rx options for lung mass- needs higher level of care. can follow up with pmd if continues to improve Subjective ROS Limited/Unobtainable: No Constitutional: Reports: malaise, weakness HEENT: Reports: no symptoms Cardiovascular: Reports: no symptoms Respiratory: Reports: cough Gastrointestinal/Abdominal: Reports: no symptoms Genitourinary: Reports: no symptoms Neurologic/Psychiatric: Reports: no symptoms Endocrine: Reports: no symptoms Hematologic/Lymphatic: Reports: no symptoms Allergies: Coded Allergies: No Known Allergies (Unverified , 07/30/15) All Systems: reviewed and negative except above Subjective decreased sob. no chest pain c/o cough. on 2L NC Objective Last 24 Hour Vital Signs Date Time Temp Pulse Resp B/P (MAP) Pulse Ox O2 Delivery O2 Flow Rate FiO2 09/06/19 09:02 87 153/77 09/06/19 09:01 87 153/77 09/06/19 09:00 Nasal Cannula 2.0 09/06/19 08:00 98.9 87 20 153/77 (102) 99 09/06/19 04:00 97.9 83 20 135/69 (91) 100 09/06/19 04:00 84 09/06/19 00:00 97.9 77 20 134/64 (87) 99 09/06/19 00:00 86 09/05/19 22:00 99.5 82 20 153/98 (116) 97 09/05/19 21:00 Nasal Cannula 2.0 09/05/19 20:00 81 09/05/19 18:17 80 120/71 09/05/19 17:31 80 09/05/19 16:00 98.2 81 18 120/71 (87) 96 09/05/19 13:06 97.9 09/05/19 13:00 97.9 09/05/19 12:00 100.9 89 18 124/73 (90) 95 09/05/19 12:00 97 6/9/20 09:45 83 124/69 09/05/19 09:45 83 124/69 Intake and Output 09/05/19 09/06/19 19:00 07:00 Intake Total 360 ml 540 ml Balance 360 ml 540 ml Intake Oral 360 ml 540 ml # Voids 2 4 Height (Feet): 5 Height (Inches): 2.00 Weight (Pounds): 161 General Appearance: WD/WN, alert Neck: supple Cardiovascular: normal rate Respiratory/Chest: chest wall non-tender, lungs clear, no respiratory distress Abdomen: normal bowel sounds, non tender, soft, no organomegaly Edema: no edema noted Arm (L), no edema noted Arm (R), no edema noted Leg (L), no edema noted Leg (R), no edema noted Pedal (L), no edema noted Pedal (R), no edema noted 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
[2019-09-06 12:00] VITALS: BP 140/75
[2019-09-06 16:00] VITALS: BP 131/76
[2019-09-06 20:00] VITALS: BP 153/90
[2019-09-06] MEDS: traMADol 50mg tab ORAL PRN (20:52)
[2019-09-06] MEDS: cefTRIAXone 1 GM in D5W 55 ML IVPB SCH (22:47)
[2019-09-07] MEDS: Vancomycin 750mg/NS 275ml IVPB SCH ×4 (01:20→14:01)
[2019-09-07] MEDS: Promethazine/Codeine 5ml UD ORAL PRN ×5 (01:21→22:59)
[2019-09-07 04:00] VITALS: BP 175/83
[2019-09-07] MEDS: NovoLOG Insulin Flexpen SUBQ SCH ×4 (05:16→20:53)
[2019-09-07] MEDS: traMADol 50mg tab ORAL PRN ×2 (05:28→17:51)
[2019-09-07 07:00] LABS: ALANINE AMINOTRANSFERASE 35 U/L (12-78); ALBUMIN 1.8 G/DL (3.4-5.0); ALBUMIN/GLOBULIN RATIO 0.3 (1.0-2.7); ALKALINE PHOSPHATASE 642 U/L (46-116); ANION GAP 8 mmol/L (5-15); ASPARTATE AMINO TRANSFERASE 45 U/L (15-37); BILIRUBIN,TOTAL 0.4 MG/DL (0.2-1.0); BLOOD UREA NITROGEN 23 mg/dL (7-18); CALCIUM 8.1 MG/DL (8.5-10.1); CARBON DIOXIDE 26 MMOL/L (21-32); CHLORIDE 97 MMOL/L (98-107); POTASSIUM 3.4 MMOL/L (3.5-5.1); SODIUM 131 MMOL/L (136-145)
[2019-09-07 07:16] LABS: HEMATOCRIT 23.9 % (37.0-47.0); HEMOGLOBIN 8.2 G/DL (12.0-16.0); MEAN CORPUSCULAR VOLUME 82 FL (80-99); PLATELET COUNT 801 K/UL (150-450); RED CELL DISTRIBUTION WIDTH 13.3 % (11.6-14.8)
[2019-09-07 08:00] VITALS: BP 155/77
[2019-09-07] MEDS: Atenolol 25mg tab ORAL SCH ×2 (09:01→17:30)
[2019-09-07] MEDS: hydroCHLOROthiazide 25mg cap ORAL SCH (09:02)
[2019-09-07] MEDS: Doxazosin 4mg tab ORAL SCH (09:02)
[2019-09-07] MEDS: Enoxaparin 40mg Inj SUBQ SCH (09:04)
[2019-09-07 12:00] VITALS: BP 112/78
--- NOTE | 2019-09-07 15:51 | General Progress Note ---
Assessment/Plan Problem List: (1) Lung mass ICD Codes: R91.8 - Other nonspecific abnormal finding of lung field SNOMED: 644399277 (2) Pneumonia ICD Codes: J18.9 - Pneumonia, unspecified organism SNOMED: 574408440 Status: stable Assessment/Plan: abx adjusted resp care follow up cultures dc hctz- low na replace k repeat cbc dc planning once wbc better Subjective ROS Limited/Unobtainable: No Constitutional: Reports: no symptoms HEENT: Reports: no symptoms Cardiovascular: Reports: no symptoms Respiratory: Reports: cough Gastrointestinal/Abdominal: Reports: no symptoms Genitourinary: Reports: no symptoms Neurologic/Psychiatric: Reports: no symptoms Endocrine: Reports: no symptoms Hematologic/Lymphatic: Reports: no symptoms Allergies: Coded Allergies: No Known Allergies (Unverified , 07/30/15) All Systems: reviewed and negative except above Subjective decreased sob. no chest pain c/o cough. off o2. records from [facility] reviewed- biopsy with atypical suspicious cells but no malignancy. Objective Last 24 Hour Vital Signs Date Time Temp Pulse Resp B/P (MAP) Pulse Ox O2 Delivery O2 Flow Rate FiO2 09/07/19 12:00 98.1 81 20 112/78 (89) 98 09/07/19 12:00 77 09/07/19 09:31 100.2 09/07/19 09:02 98 155/77 09/07/19 09:01 98 155/77 09/07/19 09:00 Nasal Cannula 2.0 09/07/19 08:00 98 09/07/19 08:00 100.2 98 20 155/77 (103) 97 09/07/19 04:00 94 09/07/19 04:00 99.9 97 18 175/83 (113) 93 09/07/19 00:00 99.7 09/07/19 00:00 85 09/06/19 21:00 Nasal Cannula 2.0 09/06/19 20:00 97 09/06/19 20:00 101.8 103 18 153/90 (111) 100 09/06/19 18:33 84 131/76 09/06/19 16:00 98.6 84 18 131/76 (94) 97 09/06/19 16:00 84 Intake and Output 09/06/19 09/07/19 19:00 07:00 Intake Total 960 ml Balance 960 ml Intake Oral 960 ml # Voids 1 5 Laboratory Tests 09/07/19 06:05: White Blood Count 25.0*H, Red Blood Count 2.90L, Hemoglobin 8.2L, Hematocrit 23.9L, Mean Corpuscular Volume 82, Mean Corpuscular Hemoglobin 28.1, Mean Corpuscular Hemoglobin Concent 34.1, Red Cell Distribution Width 13.3, Platelet Count 801H, Mean Platelet Volume 4.2L, Neutrophils (%) (Auto) , Lymphocytes (%) (Auto) , Monocytes (%) (Auto) , Eosinophils (%) (Auto) , Basophils (%) (Auto) , Differential Total Cells Counted 100, Neutrophils % (Manual) 95H, Lymphocytes % (Manual) 3L, Monocytes % (Manual) 1, Eosinophils % (Manual) 1, Basophils % ( Manual) 0, Band Neutrophils 0, Platelet Estimate IncreasedH, Platelet Morphology Normal, Hypochromasia 2+, Anisocytosis 1+, Spherocytes 2+, Rouleau 1+ , Sodium Level 131L, Potassium Level 3.4L, Chloride Level 97L, Carbon Dioxide Level 26, Anion Gap 8, Blood Urea Nitrogen 23H, Creatinine 1.0, Estimat Glomerular Filtration Rate > 60, Glucose Level 449H, Calcium Level 8.1L, Total Bilirubin 0.4, Aspartate Amino Transf (AST/SGOT) 45H, Alanine Aminotransferase ( ALT/SGPT) 35, Alkaline Phosphatase 642H, Total Protein 7.4, Albumin 1.8L, Globulin 5.6, Albumin/Globulin Ratio 0.3L 09/07/19 11:55: Vancomycin Level Trough 14.8H Height (Feet): 5 Height (Inches): 2.00 Weight (Pounds): 161 Objective General Appearance: WD/WN, alert Neck: supple Cardiovascular: normal rate Respiratory/Chest: chest wall non-tender, lungs clear, no respiratory distress Abdomen: normal bowel sounds, non tender, soft, no organomegaly Edema: no edema noted Arm (L), no edema noted Arm (R), no edema noted Leg (L), no edema noted Leg (R), no edema noted Pedal (L), no edema noted Pedal (R), no edema noted 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
[2019-09-07 16:00] VITALS: BP 147/74
[2019-09-07] MEDS: Piperacillin/Tazobactam 3.375 GM in NS 110 ML IVPB SCH (17:29)
[2019-09-07] MEDS: Levemir Flexpen SUBQ SCH (17:45)
[2019-09-07 20:00] VITALS: BP 154/84
[2019-09-08] VITALS: BP 123/60
[2019-09-08] MEDS: Piperacillin/Tazobactam 3.375 GM in NS 110 ML IVPB SCH ×2 (00:40→09:10)
[2019-09-08] MEDS: Vancomycin 750mg/NS 275ml IVPB SCH ×4 (01:53→14:00)
[2019-09-08 04:00] VITALS: BP 128/62
[2019-09-08] MEDS: Promethazine/Codeine 5ml UD ORAL PRN (04:56)
[2019-09-08] MEDS: traMADol 50mg tab ORAL PRN ×2 (05:39→12:08)
[2019-09-08] MEDS: NovoLOG Insulin Flexpen SUBQ SCH ×2 (05:43→12:06)
[2019-09-08 07:19] LABS: HEMOGLOBIN 7.8 G/DL (12.0-16.0); MEAN CORPUSCULAR VOLUME 89 FL (80-99); PLATELET COUNT 677 K/UL (150-450); RED CELL DISTRIBUTION WIDTH 13.4 % (11.6-14.8); WHITE BLOOD COUNT 21.7 K/UL (4.8-10.8)
[2019-09-08 07:23] LABS: ANION GAP 9 mmol/L (5-15); BLOOD UREA NITROGEN 19 mg/dL (7-18); CALCIUM 7.8 MG/DL (8.5-10.1); CARBON DIOXIDE 26 MMOL/L (21-32); CHLORIDE 95 MMOL/L (98-107); POTASSIUM 3.9 MMOL/L (3.5-5.1); SODIUM 130 MMOL/L (136-145)
[2019-09-08 08:00] VITALS: BP 131/78
[2019-09-08] MEDS: Atenolol 25mg tab ORAL SCH (09:10)
[2019-09-08] MEDS: Doxazosin 4mg tab ORAL SCH (09:10)
[2019-09-08] MEDS: Levemir Flexpen SUBQ SCH (09:11)
[2019-09-08] MEDS: Enoxaparin 40mg Inj SUBQ SCH (09:12)
[2019-09-08 12:00] VITALS: BP 137/50
[2019-09-08] MEDS ORDERED: Tubing IV Secondary IV ONE (16:41)
--- NOTE | 2019-09-08 21:30 | Discharge Summary ---
DATE OF ADMISSION: 09/03/2019 DATE OF DISCHARGE: 09/08/2019 ADMISSION DIAGNOSES: 1. Pneumonia. 2. Shortness of breath. 3. Lung mass. 4. Diabetes. DISCHARGE DIAGNOSES: 1. Pneumonia. 2. Shortness of breath. 3. Lung mass. 4. Diabetes. HOSPITAL COURSE: Patient was admitted with complaints of shortness of breath. She had a CAT scan that showed a large lung mass. She had back been worked up for the last several weeks for this lung mass. This included biopsy that showed atypical cells, but no obvious cancer. She was admitted for possible pneumonia. She initially was on a face mask. She improved clinically with IV antibiotic therapy and supplemental oxygen. She was stable upon discharge. The results of her prior biopsy and CAT scan results were discussed with both her and her daughter. I am concerned about the pathology report that shows very typical skin cells. We did attempt to transfer the patient, but there were no beds available at outside hospitals. She was stable for discharge. I have talked with family members who will take her to see her primary care doctor or take her to the [facility] for further evaluation and workup of the lung mass. I have explained to her that she needs additional workup including repeat biopsies as the lung mass is large and possibly causing compressive changes leading to obstructive pneumonia. Patient will be discharged on oral antibiotic therapy as well as cough treatment and will be taken in the next few days to the [facility] for further evaluation. DISCHARGE MEDICATIONS: Please see discharge medications list for discharge medications. DIET: Diabetic diet. ACTIVITIES: Ad-clint. Delmer Perkins M.D. DR: EDUARDO JOB#: [id number] CC:
== END 2019-09-08 16:42 | disposition home or self-care (01) | DRG 139 ==
LOC: EMR 22:20 → 2E 23:04 → EDBEDREQ 09-04 11:48 → 2E 09-07 14:03
DX: J18.9 Pneumonia, unspecified organism (principal); R91.8 Other nonspecific abnormal finding of lung field; E11.9 Type 2 diabetes mellitus without complications; I10 Essential (primary) hypertension
CPT/HCPCS: 36415; 71045; 71260; 80048; 80053; 80202; 81003; 82550; 82553; 82962; 83605; 83735; 83880; 84484; 85007; 85025; 85610; 85730; 86850; 86900; 86901; 87040; 87086; 87181; 93005; 96361; 96365; 96368; 99291; J1815; J7030; S5561

== ENCOUNTER 2019-12-13 10:48 | Inpatient (IN) | payer MEDICAID ==
[~2019-12-13] VITALS: Ht 154.9 cm; Wt 75.6 kg
[2019-12-13 11:40] LABS: BASOPHILS % (AUTO) 0.7 % (0.0-2.0); EOSINOPHILS % (AUTO) 2.3 % (0.0-3.0); HEMATOCRIT 33.1 % (37.0-47.0); HEMOGLOBIN 10.6 G/DL (12.0-16.0); LYMPHOCYTES % (AUTO) 16.3 % (20.0-45.0); MEAN CORPUSCULAR VOLUME 88 FL (80-99); MONOCYTES % (AUTO) 4.9 % (1.0-10.0); NEUTROPHILS % (AUTO) 75.8 % (45.0-75.0); PLATELET COUNT 579 K/UL (150-450); RED BLOOD COUNT 3.74 M/UL (4.20-5.40); RED CELL DISTRIBUTION WIDTH 13.9 % (11.6-14.8); WHITE BLOOD COUNT 11.3 K/UL (4.8-10.8)
[2019-12-13] MEDS ORDERED: Ipratropium 0.02% Inh Soln 2.5ml UD HHN ONE (11:45)
[2019-12-13] MEDS ORDERED: Ketorolac 30mg Inj IV ONE (11:45)
[2019-12-13] MEDS ORDERED: Cyclobenzaprine 10mg Tab ORAL ONE (11:45)
[2019-12-13 11:55] LABS: ANION GAP 8 mmol/L (5-15); BLOOD UREA NITROGEN 17 mg/dL (7-18); CARBON DIOXIDE 29 MMOL/L (21-32); CHLORIDE 100 MMOL/L (98-107); CREATININE 1.1 MG/DL (0.55-1.30); POTASSIUM 3.7 MMOL/L (3.5-5.1); SODIUM 137 MMOL/L (136-145)
[2019-12-13 12:07] LABS: ALANINE AMINOTRANSFERASE 20 U/L (12-78); ALBUMIN 2.4 G/DL (3.4-5.0); ALBUMIN/GLOBULIN RATIO 0.4 (1.0-2.7); ALKALINE PHOSPHATASE 270 U/L (46-116); ASPARTATE AMINO TRANSFERASE 31 U/L (15-37); BILIRUBIN,TOTAL 0.2 MG/DL (0.2-1.0)
[2019-12-13] MEDS: Albuterol ud Inhalation HHN SCH ×3 (13:17→13:19)
--- NOTE | 2019-12-13 13:54 | Emergency Room Report ---
History of Present Illness General Chief Complaint: Upper Respiratory Illness Source: Patient Present Illness HPI This patient has 2 complaints. She states that she has right shoulder pain that has been bothering her for the past 2 weeks. She states the pain is worse with movement. She denies trauma. She denies fever or chills. She states she is also had shortness of breath and a cough for the past week. She has a history of COPD. She denies sputum production. She has no other complaints. 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 2019 COVID-19 Screening: Negative COVID-19 COVID-19 Testing Source: nasopharynx Patient History Past Medical History: see triage record, DM, HTN, COPD Social History: Denies: smoking, alcohol use, drug use Now: No Reviewed Nursing Documentation: PMH: Agreed; PSxH: Agreed Nursing Documentation-PMH Past Medical History: No History, Except For Hx Cardiac Problems: Yes Hx Hypertension: Yes Hx Asthma: Yes Hx Diabetes: Yes Hx Cancer: No Hx Gastrointestinal Problems: Yes - Gastritis Hx Neurological Problems: No Hx Dizziness: Yes Review of Systems All Other Systems: negative except mentioned in HPI Physical Exam Vital Signs Date Time Temp Pulse Resp B/P (MAP) Pulse Ox O2 Delivery O2 Flow Rate FiO2 12/13/19 10:52 98.4 104 20 184/102 (129) 96 Room Air Sp02 EP Interpretation: reviewed, normal General Appearance: no apparent distress, alert, GCS 15, non-toxic Head: normocephalic, atraumatic Eyes: bilateral eye normal inspection, bilateral eye PERRL ENT: hearing grossly normal, normal pharynx, no angioedema, normal voice Neck: full range of motion, supple/symm/no masses Respiratory: no respiratory distress, no retraction, no accessory muscle use, speaking full sentences, wheezing, expiration Cardiovascular #1: no edema, tachycardia Gastrointestinal: normal bowel sounds, non tender, soft, non-distended, no guarding, no rebound Rectal: deferred Musculoskeletal: back normal, normal range of motion, gait/station normal, non- tender 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, motor strength/tone normal, oriented x3, sensory intact, responsive, speech normal Psychiatric: judgement/insight normal, memory normal, mood/affect normal, no suicidal/homicidal ideation Skin: no rash, normal color Medical Decision Making Diagnostic Impression: Primary Impression: COPD exacerbation Additional Impressions: Rotator cuff impingement syndrome of right shoulder Trapezius muscle spasm ER Course This patient has a clinical presentation consistent with COPD exacerbation. Patient has a history of asthma and has wheezing on physical exam. The patient was given albuterol and Atrovent nebulizer treatments. The patient was also given prednisone orally. The patient was found to have an opacity on chest x- ray concerning for pneumonia. She was given IV antibiotics. The patient continued to have ongoing shortness of breath and wheezing. She is admitted for COPD exacerbation and pneumonia. Patient also has findings on exam consistent with rotator cuff impingement syndr ome. She has a right trapezius muscle spasm. I will place the patient on a muscle relaxant. The patient was also instructed to follow-up with an orthopedist. Possibly this patient will need an MRI of the right shoulder and further evaluation of the rotator cuff by an orthopedic surgeon. The patient indicated understanding intention to do so. This patient was evaluated in the context of the global COVID-19 pandemic, which necessitated consideration that the patient might be at risk for infection with the [id number] virus that causes COVID-19. Institutional protocols and algorithms that pertain to the evaluation of patients at risk for COVID-19 and the state of rapid change based on information released by multiple regulatory bodies including the CDC and federal and state organizations. These policies and algorithms were followed during the patient's care in the ED. Laboratory Tests Test 12/13/19 11:25 White Blood Count 11.3 K/UL (4.8-10.8) H Red Blood Count 3.74 M/UL (4.20-5.40) L Hemoglobin 10.6 G/DL (12.0-16.0) L Hematocrit 33.1 % (37.0-47.0) L Mean Corpuscular Volume 88 FL (80-99) Mean Corpuscular Hemoglobin 28.2 PG (27.0-31.0) Mean Corpuscular Hemoglobin Concent 31.9 G/DL (32.0-36.0) L Red Cell Distribution Width 13.9 % (11.6-14.8) Platelet Count 579 K/UL (150-450) H Mean Platelet Volume 5.4 FL (6.5-10.1) L Neutrophils (%) (Auto) 75.8 % (45.0-75.0) H Lymphocytes (%) (Auto) 16.3 % (20.0-45.0) L Monocytes (%) (Auto) 4.9 % (1.0-10.0) Eosinophils (%) (Auto) 2.3 % (0.0-3.0) Basophils (%) (Auto) 0.7 % (0.0-2.0) Sodium Level 137 MMOL/L (136-145) Potassium Level 3.7 MMOL/L (3.5-5.1) Chloride Level 100 MMOL/L (98-107) Carbon Dioxide Level 29 MMOL/L (21-32) Anion Gap 8 mmol/L (5-15) Blood Urea Nitrogen 17 mg/dL (7-18) Creatinine 1.1 MG/DL (0.55-1.30) Estimated Glomerular Filtration Rate > 60 mL/min (>60) Glucose Level 297 MG/DL (74-106) H Calcium Level 8.0 MG/DL (8.5-10.1) L Total Bilirubin 0.2 MG/DL (0.2-1.0) Aspartate Amino Transferase (AST) 31 U/L (15-37) Alanine Aminotransferase (ALT) 20 U/L (12-78) Alkaline Phosphatase 270 U/L (46-116) H Total Protein 8.2 G/DL (6.4-8.2) Albumin 2.4 G/DL (3.4-5.0) L Globulin 5.8 g/dL Albumin/Globulin Ratio 0.4 (1.0-2.7) L Microbiology Date/Time Source Procedure Growth Status 12/13/19 11:23 Nasopharynx SARS-CoV-2 RdRp Gene Assay - Final Complete EKG Diagnostic Results Rate: tachycardiac Rhythm: other - S.tachycardia ST Segments: no acute changes Rhythm Strip Diag. Results EP Interpretation: yes Rate: 100's Rhythm: no PVC's, no ectopy, other - S.tachycardia Chest X-Ray Diagnostic Results Chest X-Ray Diagnostic Results : Chest X-Ray Ordered: Yes # of Views/Limited/Complete: 1 View Indication: Shortness of Breath EP Interpretation: Yes Interpretation: other - RLL opacity. Impression: Other - See above RLL PNA Electronically Signed by: Johnna Lechuga DO Last Vital Signs Date Time Temp Pulse Resp B/P (MAP) Pulse Ox O2 Delivery O2 Flow Rate FiO2 12/13/19 12:37 98.5 12/13/19 11:29 109 21 Room Air 12/13/19 10:52 184/102 (129) 96 Disposition: ADMITTED INPATIENT Condition: Serious Referrals: NON PHYSICIAN (PCP) Johnna Lechuga DO Dec 13, 2019 13:53
[2019-12-13] MEDS ORDERED: cefTRIAXone 1 GM in NS 55 ML IVPB ONE (14:00)
--- NOTE | 2019-12-13 14:23 | Diagnostic Imaging Report ---
Indication: Soreness of breath Technique: Portable frontal view of the chest Comparison: Chest radiograph and chest CT 09/03/2019 Findings: Heart size is stable. There is obscuration of the right apex with irregular opacities compatible with the mass noted in this region on prior CT. There is thickening of the right paratracheal stripe and right hilar prominence which is also seen previously. There is slight improved aeration of the right upper lung compared to prior exam which may be related to mild positive response to therapy although significant residual disease persists. There is no pleural effusion or pneumothorax. No appreciable acute osseous abnormality. IMPRESSION: Obscuration of the right apex with pleural thickening and thickening of the right paratracheal stripe/right hilum related to mass and adenopathy in these regions on CT 09/04/2019 concerning for malignancy. There is minimal improved aeration of the right apex compared to the prior exam. Question positive response to treatment. Possibility of superimposed acute airspace disease/pneumonia cannot be excluded on imaging. Please correlate clinically.
[2019-12-13 15:17] VITALS: BP 145/87
[2019-12-13 16:00] VITALS: BP 158/98
[2019-12-13] MEDS ORDERED: Milk of Magnesia 30ml Ud ORAL PRN (18:00)
[2019-12-13] MEDS ORDERED: Omnipaque-300 100ml vial INJ PRN (18:00)
[2019-12-13] MEDS: Meloxicam 15 MG TAB ORAL SCH (18:22)
[2019-12-13] MEDS: Atenolol 25mg tab ORAL SCH (18:22)
[2019-12-13] MEDS: NS w/KCl 20mEq 1000ml 1,000 ML IV SCH (19:35)
[2019-12-13 20:00] VITALS: BP 137/87
[2019-12-13] MEDS ORDERED: NovoLOG Insulin Flexpen SUBQ SCH ×2 (21:00→22:30)
[2019-12-14] VITALS: BP 149/88
[2019-12-14] MEDS: metFORMIN 500mg tab ORAL SCH ×3 (00:30→17:24)
--- NOTE | 2019-12-14 00:30 | History and Physical Report ---
DATE OF ADMISSION: 12/13/2019 REASON FOR ADMISSION: Shortness of breath and right shoulder pain. HISTORY: This 59-year-old female was diagnosed with a lung tumor earlier this year. Biopsy was negative for malignant cells. However, additional diagnostic studies were concerning for malignancy. Most notably, the patient was hospitalized here in August of this year. At that time, her CAT scan of the chest was suggestive of a malignant right lobe mass and the patient was referred for outpatient care to a tertiary facility for further intervention. This was discussed with the patient and her daughter at that time according to reviewed records. I spoke with the daughter today. Apparently, the patient did go to her primary care physician, but did not have any further pulmonary workup or diagnostic studies. She was to apparently schedule something at the [facility], but did not yet. The patient has had some cough, congestion, shortness of breath and worsening right shoulder pain. PAST MEDICAL HISTORY: Hypertension, type 2 diabetes mellitus, diabetic neuropathy, COPD, right rotator cuff abnormality, chronic hip pain, constipation. ALLERGIES: None. MEDICATIONS: Reviewed. FAMILY HISTORY: Noncontributory. SOCIAL HISTORY: Nonsmoker. There is a history of tobacco use in the past. PHYSICAL EXAMINATION: VITAL SIGNS: Blood pressure 152/84, pulse 98, respirations 17, afebrile, room air oxygen 99%. EXTREMITIES: Decreased range of motion, right shoulder, with tenderness to palpation of the area. LUNGS: Diminished breath sounds with a few rhonchi on the right. HEART: Regular rhythm and rate. Normal S1, S2 with a fourth heart sound. ABDOMEN: Soft, nontender. EXTREMITIES: No edema. LABORATORY AND DIAGNOSTIC DATA: White count 11.3, hemoglobin 10.6. Potassium 3.7, BUN 17, creatinine 1.1, glucose 297, albumin 2.4. Chest x-ray reveals obscuration of the right apex with pleural thickening and thickening of the right paratracheal stripe and right hilum, related to mass and adenopathy. There is minimal improved aeration as compared to prior examinations. Superimposed airspace disease cannot be excluded. IMPRESSION: Concern for progression of right lung mass with symptoms involving the right shoulder. The patient has failed to comply with outpatient pulmonary followup since April of this year. At this time, there may be a superimposed pneumonia with some bronchospasm as well. Recommend inhaled bronchodilators, intravenous antimicrobials, DVT prophylaxis, continue and titrate antihypertensive regimen. Repeat CT scan of the chest. I have spoken with the patient's daughter. I have stressed that she should be followed up at a tertiary care facility where a VATS procedure will likely be required. The patient's daughter is away until this , which is 2 days from now, and agrees to assist with arranging this tertiary care. Evans Trinidad M.D. DR: LATRICE JOB#: [id number] CC:
[2019-12-14 04:00] VITALS: BP 151/95
[2019-12-14] MEDS: NovoLOG Insulin Flexpen SUBQ SCH ×4 (06:04→21:00)
[2019-12-14] MEDS: GlipiZIDE 5mg tab ORAL SCH ×2 (06:04→17:24)
[2019-12-14] MEDS ORDERED: NovoLOG Insulin Flexpen SUBQ SCH (06:30)
[2019-12-14 07:26] LABS: ALANINE AMINOTRANSFERASE 20 U/L (12-78); ALBUMIN 2.4 G/DL (3.4-5.0); ALBUMIN/GLOBULIN RATIO 0.4 (1.0-2.7); ALKALINE PHOSPHATASE 265 U/L (46-116); ANION GAP 9 mmol/L (5-15); ASPARTATE AMINO TRANSFERASE 29 U/L (15-37); BILIRUBIN,TOTAL 0.2 MG/DL (0.2-1.0); BLOOD UREA NITROGEN 22 mg/dL (7-18); CALCIUM 8.1 MG/DL (8.5-10.1); CARBON DIOXIDE 27 MMOL/L (21-32); CHLORIDE 102 MMOL/L (98-107); POTASSIUM 4.2 MMOL/L (3.5-5.1); SODIUM 138 MMOL/L (136-145)
[2019-12-14 07:30] LABS: HEMATOCRIT 31.1 % (37.0-47.0); HEMOGLOBIN 10.1 G/DL (12.0-16.0); MEAN CORPUSCULAR VOLUME 87 FL (80-99); PLATELET COUNT 582 K/UL (150-450); RED BLOOD COUNT 3.59 M/UL (4.20-5.40); WHITE BLOOD COUNT 16.9 K/UL (4.8-10.8)
[2019-12-14 08:00] VITALS: BP 146/84
[2019-12-14] MEDS: cefTRIAXone 1 GM in D5W 55 ML IVPB SCH (08:49)
[2019-12-14] MEDS: NS w/KCl 20mEq 1000ml 1,000 ML IV SCH ×2 (08:50→22:09)
[2019-12-14] MEDS: Meloxicam 15 MG TAB ORAL SCH (08:50)
[2019-12-14] MEDS: Atenolol 25mg tab ORAL SCH ×2 (08:50→17:24)
[2019-12-14] MEDS ORDERED: hydroCHLOROthiazide 25mg cap ORAL SCH (09:00)
[2019-12-14] MEDS: Albuterol/Ipratropium 3ml neb HHN PRN (10:23)
[2019-12-14 12:00] VITALS: BP 158/98
--- NOTE | 2019-12-14 15:26 | Diagnostic Imaging Report ---
EXAM: CT CT Chest w Contrast CLINICAL HISTORY: Shortness of breath. Lung mass. TECHNIQUE: Axial images obtained through the chest with contrast. All CT scans at this facility are performed using dose modulation techniques as appropriate to a performed exam including the following: automated exposure control with adjustment of the mA and/or kV according to patient size. RADIATION DOSE: CTDIvol: 86.3 mGy DLP: 351.2 mGy-cm Dose information generated by the CT scanner is available in PACS. COMPARISON: 09/04/2019 FINDINGS: In the previous exam, there is a large masslike consolidation noted in the right upper lobe/right apex with some peripheral calcifications. In the current study, the area has turned into a thick-walled cavity. The peripheral coarse calcifications are again noted. There is a new small area of consolidation noted in the posterior lateral margin of the right upper lobe extending down along the lateral convexity. Scattered hazy groundglass densities noted within the lung bases right greater than left. Cardiac and mediastinal structures are within normal limits. Calcified mediastinal lymph nodes again noted. There is no effusion. No sign of acute disease noted in limited images through the upper abdomen. IMPRESSION: The large solid appearing mass previously noted in the right upper lobe now appears to be a irregularly thick-walled structure with peripheral coarse dystrophic ossifications again noted. There is a new small area of alveolar consolidation noted along the posterior lateral marginal right upper lobe extending down the lateral convexity. Differential considerations are between a mass with central cavitation versus postinflammatory cavity/pneumatocele formation in an area of previous infectious/inflammatory consolidation. Patient reportedly had previous biopsy which was negative for malignancy. Therefore the latter is favored.
[2019-12-14 16:00] VITALS: BP 155/95
[2019-12-14] MEDS: traMADol 50mg tab ORAL PRN ×2 (16:10→22:14)
[2019-12-14 20:00] VITALS: BP 176/99
[2019-12-14] MEDS: HydrALAZINE 25mg tab ORAL PRN (21:10)
[2019-12-15] VITALS: BP 150/88
--- NOTE | 2019-12-15 01:58 | Cardiology Progress Note ---
Subjective DATE OF SERVICE: Dec 14, 2019 Less SOB Glucose elevated; patient rec'd IV steroids in ER CT Chest: reveals RUL mass - either pneumatocoele vs walled off mass. No hypoxia Rising BP trend noted Objective Last 24 Hour Vital Signs Date Time Temp Pulse Resp B/P (MAP) Pulse Ox O2 Delivery O2 Flow Rate FiO2 12/15/19 00:00 97.9 87 20 150/88 (108) 99 12/14/19 22:44 98.1 12/14/19 21:10 176/100 12/14/19 21:00 Room Air 12/14/19 20:00 98.1 90 20 176/99 (124) 98 12/14/19 17:24 89 155/95 12/14/19 17:24 89 155/95 12/14/19 16:45 97.9 12/14/19 16:00 98.2 89 20 155/95 (115) 99 12/14/19 12:00 97.9 91 20 158/98 (118) 95 12/14/19 10:33 83 18 100 Room Air 21 80 18 99 12/14/19 09:00 Room Air 12/14/19 08:50 80 146/84 12/14/19 08:50 80 146/84 12/14/19 08:00 97.0 80 20 146/84 (104) 99 12/14/19 04:00 98.1 89 20 151/95 (113) 99 HEENT: normal ENT inspection LUNGS: right-sided rhonchi CARDIAC: normal rate, regular rhythm, normal S1 and S2 ABDOMEN: normal bowel sounds, non tender, soft, no organomegaly EXTREMITIES: normal range of motion, non-tender, No edema Laboratory Tests Test 12/14/19 06:39 White Blood Count 16.9 K/UL (4.8-10.8) H Red Blood Count 3.59 M/UL (4.20-5.40) L Hemoglobin 10.1 G/DL (12.0-16.0) L Hematocrit 31.1 % (37.0-47.0) L Mean Corpuscular Volume 87 FL (80-99) Mean Corpuscular Hemoglobin 28.1 PG (27.0-31.0) Mean Corpuscular Hemoglobin Concent 32.4 G/DL (32.0-36.0) Red Cell Distribution Width 13.0 % (11.6-14.8) Platelet Count 582 K/UL (150-450) H Mean Platelet Volume 5.1 FL (6.5-10.1) L Neutrophils (%) (Auto) % (45.0-75.0) Lymphocytes (%) (Auto) % (20.0-45.0) Monocytes (%) (Auto) % (1.0-10.0) Eosinophils (%) (Auto) % (0.0-3.0) Basophils (%) (Auto) % (0.0-2.0) Differential Total Cells Counted 100 Neutrophils % (Manual) 90 % (45-75) H Lymphocytes % (Manual) 7 % (20-45) L Monocytes % (Manual) 3 % (1-10) Eosinophils % (Manual) 0 % (0-3) Basophils % (Manual) 0 % (0-2) Band Neutrophils 0 % (0-8) Platelet Estimate Increased H Platelet Morphology Normal Hypochromasia 1+ Anisocytosis 1+ Sodium Level 138 MMOL/L (136-145) Potassium Level 4.2 MMOL/L (3.5-5.1) Chloride Level 102 MMOL/L (98-107) Carbon Dioxide Level 27 MMOL/L (21-32) Anion Gap 9 mmol/L (5-15) Blood Urea Nitrogen 22 mg/dL (7-18) H Creatinine 1.0 MG/DL (0.55-1.30) Estimat Glomerular Filtration Rate > 60 mL/min (>60) Glucose Level 251 MG/DL (74-106) H Hemoglobin A1c 8.2 % (4.3-6.0) H Calcium Level 8.1 MG/DL (8.5-10.1) L Total Bilirubin 0.2 MG/DL (0.2-1.0) Aspartate Amino Transf (AST/SGOT) 29 U/L (15-37) Alanine Aminotransferase (ALT/SGPT) 20 U/L (12-78) Alkaline Phosphatase 265 U/L (46-116) H Total Protein 8.0 G/DL (6.4-8.2) Albumin 2.4 G/DL (3.4-5.0) L Globulin 5.6 g/dL Albumin/Globulin Ratio 0.4 (1.0-2.7) L Microbiology Date/Time Source Procedure Growth Status 12/13/19 11:23 Nasopharynx SARS-CoV-2 RdRp Gene Assay - Final Complete Assessment/Plan Assessment/Plan COPD Post obstr PNA Lung mass Rt shoulder pain due to RUL mass IRDM uncontrolled Hypertension with elev BP PLAN Abx Bronchodil Adjust insulin Pain control Adv antiHTN meds Will need tertiary care facility for surgery Evans Trinidad MD Dec 15, 2019 01:57
[2019-12-15 04:00] VITALS: BP 148/79
[2019-12-15] MEDS: GlipiZIDE 5mg tab ORAL SCH (05:32)
[2019-12-15] MEDS: NovoLOG Insulin Flexpen SUBQ SCH ×2 (05:53→11:30)
[2019-12-15] MEDS: Albuterol/Ipratropium 3ml neb HHN PRN ×2 (07:01→12:13)
[2019-12-15 07:34] LABS: BASOPHILS % (AUTO) 1.2 % (0.0-2.0); HEMATOCRIT 36.1 % (37.0-47.0); HEMOGLOBIN 11.3 G/DL (12.0-16.0); LYMPHOCYTES % (AUTO) 20.7 % (20.0-45.0); MEAN CORPUSCULAR VOLUME 88 FL (80-99); MONOCYTES % (AUTO) 3.7 % (1.0-10.0); NEUTROPHILS % (AUTO) 71.5 % (45.0-75.0); PLATELET COUNT 294 K/UL (150-450); RED CELL DISTRIBUTION WIDTH 13.4 % (11.6-14.8); WHITE BLOOD COUNT 12.1 K/UL (4.8-10.8)
[2019-12-15 08:00] VITALS: BP 150/98
[2019-12-15] MEDS: Atenolol 25mg tab ORAL SCH (08:57)
[2019-12-15] MEDS: cefTRIAXone 1 GM in D5W 55 ML IVPB SCH (08:57)
[2019-12-15] MEDS: metFORMIN 500mg tab ORAL SCH (08:57)
[2019-12-15] MEDS: Meloxicam 15 MG TAB ORAL SCH (08:57)
[2019-12-15 09:57] LABS: ALANINE AMINOTRANSFERASE 28 U/L (12-78); ALBUMIN 2.4 G/DL (3.4-5.0); ALBUMIN/GLOBULIN RATIO 0.5 (1.0-2.7); ALKALINE PHOSPHATASE 226 U/L (46-116); ANION GAP 10 mmol/L (5-15); ASPARTATE AMINO TRANSFERASE 52 U/L (15-37); BILIRUBIN,TOTAL 0.3 MG/DL (0.2-1.0); BLOOD UREA NITROGEN 13 mg/dL (7-18); CALCIUM 8.1 MG/DL (8.5-10.1); CARBON DIOXIDE 26 MMOL/L (21-32); CHLORIDE 104 MMOL/L (98-107); CREATININE 0.8 MG/DL (0.55-1.30); SODIUM 140 MMOL/L (136-145)
[2019-12-15] MEDS: HydrALAZINE 25mg tab ORAL PRN (11:43)
[2019-12-15] MEDS: NS w/KCl 20mEq 1000ml 1,000 ML IV SCH (11:43)
[2019-12-15 12:00] VITALS: BP 158/98
[2019-12-15] MEDS ORDERED: LEVOFLOXACIN500 MG ORAL (12:06)
--- NOTE | 2019-12-16 02:24 | Cardiology Progress Note ---
Subjective DATE OF SERVICE: Dec 15, 2019 No SOB; improved with inhaled bronchodilators Glucose trend improved. CT Chest: reveals RUL mass - either pneumatocoele vs walled off mass. No hypoxia BP range stabilizing Objective Last 24 Hour Vital Signs Date Time Temp Pulse Resp B/P (MAP) Pulse Ox O2 Delivery O2 Flow Rate FiO2 12/15/19 12:00 97.6 91 20 158/98 (118) 95 12/15/19 11:56 80 18 100 Room Air 21 85 16 98 12/15/19 11:43 170/98 12/15/19 09:00 Room Air 12/15/19 08:58 91 150/98 12/15/19 08:57 91 150/98 12/15/19 08:00 97.7 91 20 150/98 (115) 100 12/15/19 06:59 94 18 100 Room Air 21 92 18 98 12/15/19 04:00 98.1 88 20 148/79 (102) 98 HEENT: normal ENT inspection LUNGS: right-sided rhonchi CARDIAC: normal rate, regular rhythm, normal S1 and S2 ABDOMEN: normal bowel sounds, non tender, soft, no organomegaly EXTREMITIES: normal range of motion, non-tender, No edema Laboratory Tests Test 12/15/19 06:30 12/15/19 09:00 White Blood Count 12.1 K/UL (4.8-10.8) H Red Blood Count 4.10 M/UL (4.20-5.40) L Hemoglobin 11.3 G/DL (12.0-16.0) L Hematocrit 36.1 % (37.0-47.0) L Mean Corpuscular Volume 88 FL (80-99) Mean Corpuscular Hemoglobin 27.5 PG (27.0-31.0) Mean Corpuscular Hemoglobin Concent 31.2 G/DL (32.0-36.0) L Red Cell Distribution Width 13.4 % (11.6-14.8) Platelet Count 294 K/UL (150-450) Mean Platelet Volume 4.8 FL (6.5-10.1) L Neutrophils (%) (Auto) 71.5 % (45.0-75.0) Lymphocytes (%) (Auto) 20.7 % (20.0-45.0) Monocytes (%) (Auto) 3.7 % (1.0-10.0) Eosinophils (%) (Auto) 3.0 % (0.0-3.0) Basophils (%) (Auto) 1.2 % (0.0-2.0) Sodium Level 140 MMOL/L (136-145) Potassium Level 4.0 MMOL/L (3.5-5.1) Chloride Level 104 MMOL/L (98-107) Carbon Dioxide Level 26 MMOL/L (21-32) Anion Gap 10 mmol/L (5-15) Blood Urea Nitrogen 13 mg/dL (7-18) Creatinine 0.8 MG/DL (0.55-1.30) Estimat Glomerular Filtration Rate > 60 mL/min (>60) Glucose Level 149 MG/DL (74-106) #H Calcium Level 8.1 MG/DL (8.5-10.1) L Magnesium Level 1.5 MG/DL (1.8-2.4) L Total Bilirubin 0.3 MG/DL (0.2-1.0) Aspartate Amino Transf (AST/SGOT) 52 U/L (15-37) H Alanine Aminotransferase (ALT/SGPT) 28 U/L (12-78) Alkaline Phosphatase 226 U/L (46-116) H Pro-B-Type Natriuretic Peptide 7257 pg/mL (0-125) H Total Protein 7.5 G/DL (6.4-8.2) Albumin 2.4 G/DL (3.4-5.0) L Globulin 5.1 g/dL Albumin/Globulin Ratio 0.5 (1.0-2.7) L Microbiology Date/Time Source Procedure Growth Status 12/13/19 11:23 Nasopharynx SARS-CoV-2 RdRp Gene Assay - Final Complete Assessment/Plan Assessment/Plan COPD Post obstr PNA Lung mass Rt shoulder pain due to RUL mass IRDM uncontrolled Hypertension with elev BP PLAN Abx - oral levaquin x 5 more days. Bronchodil at home; patient has a nebulizer. Titrate insulin based on self monitoring Pain control Maintain current antiHTN meds Patient will follow up with regular MD's including regular pulmonary team. Evans Trinidad MD Dec 16, 2019 02:24
[2019-12-16] MEDS ORDERED: Levofloxacin 500mg tab ORAL SCH (09:00)
--- NOTE | 2019-12-17 14:33 | Discharge Summary ---
Discharge Summary Discharge Summary _ DATE OF ADMISSION: 12/13/2019 DATE OF DISCHARGE: 12/15/2019 DISCHARGED BY: Dr. Evans Trinidad BRIEF HOSPITAL COURSE: Patient is a 59-year-old -[place] female. She was diagnosed with lung trauma earlier this year. Biopsy was negative for malignant cells. However, additional diagnostic studies were concerning for malignancy. Most notably, the patient was hospitalized here in August of this year. At that time, her CAT scan of the chest was suggestive of a malignant right lobe mass and patient was referred for outpatient care to a tertiary facility for further intervention. According to the daughter, patient did go to her primary care physician, however did not have any further pulmonary work-up or diagnostic studies. The patient had some cough, congestion, shortness of breath and worsening right shoulder pain. She has history of hypertension, type 2 diabetes, diabetic nephropathy delete that diabetic neuropathy, COPD, right rotator cuff abnormality, chronic hip pain and constipation. Upon evaluation at ED, patient was wheezing on physical examination. She was given albuterol and Atrovent nebulizer treatment. She was also given prednisone orally. Chest x-ray showed opacity concerning for pneumonia. She was given IV antibiotics. The patient also has findings consistent with acute rotator cuff impingement syndrome. She has right trapezius muscle spasm. SARS COVID-19 was negative. She was then admitted for concern of progression of right lung mass with superimposed pneumonia and bronchospasms. She was given inhaled bronchodilators. She was continued on IV antibiotics. Glucose was elevated. Possibly due to IV steroids. Chest CT showed right upper lung mass either pneumatocele versus walled off mass. Patient's breathing improved with inhaled bronchodilators. She does not have any shortness of breath. No hypoxia. Blood pressure medications were titrated. Explained to patient's daughter, patient needs to have a follow-up with with regular MD including regular pulmonary team. Patient was cleared for discharge home to continue oral Levaquin x5 more days continue bronchodilator. Patient has a nebulizer at home. FINAL DIAGNOSES: Acute COPD Postobstructive pneumonia Lung mass Right shoulder pain due to right upper lung mass Uncontrolled diabetes Hypertension with elevated BP DISPOSITION: Patient was discharged home. DISCHARGE MEDICATIONS: Refer to Discharge Medication List. DISCHARGE INSTRUCTIONS: Follow-up with PCP in a week. Needs to have pulmonary follow-up. I have been assigned to complete a discharge summary on this account, I was not involved with the patient's management.--ADWOA Hill Jacqueline Robles NP Dec 17, 2019 14:33
== END 2019-12-15 13:30 | disposition home or self-care (01) | DRG 140 ==
LOC: EMR 11:15 → 4E 14:27 → EDBEDREQ 14:47 → 4E 15:41
DX: J44.1 Chronic obstructive pulmonary disease with (acute) exacerbation (principal); J18.9 Pneumonia, unspecified organism; J44.0 Chronic obstructive pulmonary disease with (acute) lower respiratory infection; E11.40 Type 2 diabetes mellitus with diabetic neuropathy, unspecified; I10 Essential (primary) hypertension; M75.41 Impingement syndrome of right shoulder; D38.1 Neoplasm of uncertain behavior of trachea, bronchus and lung; M62.838 Other muscle spasm; Z85.118 Personal history of other malignant neoplasm of bronchus and lung; E11.65 Type 2 diabetes mellitus with hyperglycemia; M25.511 Pain in right shoulder
CPT/HCPCS: 36415; 71045; 71260; 80053; 82962; 83036; 83735; 83880; 85007; 85025; 93005; 94640; 96365; 96375; 99285; J1815; J7620; U0002

== ENCOUNTER 2020-01-28 12:21 | Emergency (ER) | payer MEDICAID ==
[~2020-01-28] VITALS: Ht 157.5 cm; Wt 72.1 kg
[~2020-01-28 12:21] MED LIST changes: +LEVOFLOXACIN500 MG ORAL
[2020-01-28] MEDS ORDERED: Morphine Sulfate 4mg/ml Inj (IV USE ONLY) IVP ONE (12:45)
[2020-01-28] MEDS ORDERED: Ketorolac 30mg Inj IV ONE (12:45)
[2020-01-28 12:46] VITALS: BP 187/93
[2020-01-28] MEDS ORDERED: Morphine Sulfate 2mg/ml Inj(IV/IM USE ONLY) IM ONE (14:15)
--- NOTE | 2020-01-28 14:15 | Emergency Room Report ---
History of Present Illness General Chief Complaint: Neck Pain Source: Patient Present Illness HPI Patient presents emergency department today complaint neck pain. Patient states that this occurs when she is really stressed. The pain has been last couple days. Patient denies any headache nausea vomiting diarrhea chills. The pain in her neck is on the lateral aspect of her neck. She denies any trauma. She states is very tender when she touches it is tender when she moves. She denies any fever photophobia or any other symptoms of meningitis. Symptoms noted to be moderate. No other modifying factors. No other associated signs and symptoms. No other complaints were noted. 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 COVID (-) on 01/23. Patient History Reviewed Nursing Documentation: PMH: Agreed; PSxH: Agreed Nursing Documentation-PMH Past Medical History: No History, Except For Hx Cardiac Problems: Yes Hx Hypertension: Yes Hx Asthma: Yes Hx COPD: Yes Hx Diabetes: Yes Hx Cancer: No Hx Gastrointestinal Problems: Yes - GASTRITIS Hx Neurological Problems: No Hx Dizziness: Yes Review of Systems All Other Systems: negative except mentioned in HPI Physical Exam Vital Signs Date Time Temp Pulse Resp B/P (MAP) Pulse Ox O2 Delivery O2 Flow Rate FiO2 01/28/20 12:27 98.4 130 16 187/93 (124) 92 Room Air Sp02 EP Interpretation: reviewed, normal General Appearance: alert, moderate distress - Due to pain Head: normocephalic, atraumatic ENT: normal ENT inspection, hearing grossly normal, normal voice Neck: normal inspection, supple, no bony tend, other - Pain limited range of motion. Tender laterally. Respiratory: normal inspection, lungs clear, normal breath sounds, no respiratory distress, no retraction, no wheezing Cardiovascular #1: regular rate, rhythm, no edema Gastrointestinal: normal inspection, normal bowel sounds, non tender, soft, no guarding, no hernia Genitourinary: no CVA tenderness Musculoskeletal: normal inspection, back normal, normal range of motion 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, responsive, speech normal, normal inspection Psychiatric: normal inspection, judgement/insight normal, mood/affect normal Skin: no rash Medical Decision Making Diagnostic Impression: Primary Impression: Neck pain ER Course Patient presents emergency department today complaint acute onset of neck pain. Differential considerations include fracture dislocation versus strain versus muscle spasm versus meningitis. Patient does not have any evidence of infectious etiology. Patient's neck is very tender on lateral palpation inv olving the muscles. I felt the patient likely was having muscle spasms. Patient was given pain medications with significant provement symptoms. Patient's x-rays were negative. I felt the patient would benefit from muscle relaxants pain medications anti-inflammatories. Recommend close outpatient follow-up. Patient is advised to follow up with primary doctor in 2-3 days and return the emergency room for any worsening symptoms and as needed. Other X-Ray Diagnostic Results Other X-Ray Diagnostic Results : X-Ray ordered: Cervical spine # of Views/Limited Vs Complete: 3 View Indication: Pain Interpretation: no dislocation, no soft tissue swelling, no fractures Impression: No acute disease Electronically Signed by: Electronically signed by Jose Perales MD Last Vital Signs Date Time Temp Pulse Resp B/P (MAP) Pulse Ox O2 Delivery O2 Flow Rate FiO2 01/28/20 12:46 98.4 140 16 187/93 92 Room Air Status: improved Disposition: HOME, SELF-CARE Condition: Stable Scripts Diazepam* (VALIUM*) 5 Mg Tablet 5 MG ORAL TID PRN for For Pain, #20 TAB 0 Refills Prov: Jose Perales MD 01/28/20 Ibuprofen* (MOTRIN*) 600 Mg Tablet 600 MG ORAL Q6H PRN for FOR PAIN, #20 TAB 0 Refills Prov: Jose Perales MD 01/28/20 Hydrocodone Bit/Acetaminophen 5-325* (NORCO 5-325 TABLET*) 1 Each Tablet 1 TAB ORAL Q4H PRN for FOR PAIN, #12 TAB 0 Refills Prov: Jose Perales MD 01/28/20 Referrals: NON PHYSICIAN (PCP) Jose Perales MD Jan 28, 2020 14:15
[2020-01-28] MEDS ORDERED: VALIUM5 MG ORAL (14:17)
[2020-01-28] MEDS ORDERED: IBUPROFEN600 M1 ORAL (14:17)
[2020-01-28] MEDS ORDERED: NORCO 5-325 TA1 EAC1 ORAL (14:17)
[2020-01-28 14:20] VITALS: BP 154/91
--- NOTE | 2020-01-28 14:35 | Diagnostic Imaging Report ---
FILM C SPINE HISTORY: Pain TECHNIQUE: 3 views of the cervical spine were obtained One or more of the following dose reduction techniques were used: automated exposure control, adjustment of the mA and/or kV according to patient size, use of iterative reconstruction technique. Total Exam volume computed tomography dose index (CTDIvol) = mGy and Dose Length Product (DLP) = mGY-c COMPARISON: Plain films of 12 October 2017 FINDINGS: Disc space narrowing and sclerosis and osteophytosis at C5-6 and C6-7. Facet hypertrophy noted. Chronic inflammatory changes at the atlantoaxial joint. No acute fracture or subluxation. Alignment is within normal limits. IMPRESSION: Degenerative changes without fracture or subluxation
== END 2020-01-28 14:20 | disposition home or self-care (01) ==
LOC: EMR 13:11
DX: M54.2 Cervicalgia (principal); I10 Essential (primary) hypertension; J44.9 Chronic obstructive pulmonary disease, unspecified; E11.9 Type 2 diabetes mellitus without complications
CPT/HCPCS: 72040; J1885; J2270; Z7502; 99283

== ENCOUNTER 2020-01-28 18:08 | Inpatient (IN) | payer MEDICAID ==
[~2020-01-28] VITALS: Ht 154.9 cm; Wt 76.2 kg
[~2020-01-28 18:08] MED LIST changes: +IBUPROFEN600 M1 ORAL; +NORCO 5-325 TA1 EAC1 ORAL; +VALIUM5 MG ORAL
[2020-01-28 18:30] VITALS: BP 175/82
--- NOTE | 2020-01-28 18:40 | NUR ---
ED Nurse Note: Patient was here in ED earlier today for neck pain. Patient returns, brought by daughter, d/t altered LOC. Patient appears confused, makes eye contact with deep pain, answers questions but appears lethargic. Patient on the desk monitor.
[2020-01-28] MEDS ORDERED: Acetaminophen 500mg (ES) tab ORAL ONE (18:45)
--- NOTE | 2020-01-28 18:46 | Emergency Room Report ---
History of Present Illness General Chief Complaint: Overdose Source: Patient, Family Member Present Illness HPI Disclaimer: Please note that this report is being documented using Silver [employer] technology. This can lead to erroneous entry secondary to incorrect interpretation by the dictating instrument. HPI: 59-year-old female history of COPD and diabetes presents for evaluation of altered mental status and fever. Patient seen in the emergency department earlier complaining of neck stiffness. She was treated with pain medication and muscle relaxants. Daughter stated she has been increasingly somnolent, going in and out of consciousness since her discharge. Reports worsening cough over the past few days. Recently admitted to two hospitals for fatigue and dehydration. No recent Covid test. Daughter also reports recent diarrhea but no vomiting. Unknown flu vaccination status. No recent travel reported. Patient is increasingly somnolent. Cannot obtain information from her at this time. Daughter provides copies of CT head and MRI brain results on 01/18 with radiology interpretation as no acute findings. These were obtained for intermittent vertigo. 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 Appears fatigued and drowsy. Febrile HEENT: NC/AT. EOMI. PERRLA. Anicteric sclera. No conjunctival injection, no proptosis, no purulence. Dry mucous membranes. Cardiovascular: Tachycardic. S1 and S2 normal. No murmur appreciated Resp: Tachypneic. Intermittent cough. Normal work of breathing. Abdomen: Abdomen is soft, nondistended. Nontender Skin: Intact. No rash. No purpura. No abrasions, laceration over the exposed skin MSK: Normal tone and bulk. Moving all extremities. No obvious deformity. No rigidity in the extremities. Neuro: Somnolent but arousable to voice. GCS 12. Negative Kernig sign, negative Krasinski. There is some nuchal rigidity. Tremors in all extremities but no clear clonus Procedures Critical Care Time Critical Care Time Total critical care time: Approximately 90 minutes Due to a high probability of clinically significant, life threatening deterioration, the patient required the highest level of preparedness to intervene emergently and I personally spent this critical care time directly and personally managing the patient. This critical care time included obtaining a history, examining the patient, pulse oximetry, ordering and reviewing studies, ordering treatments, evaluating response to treatment and updating management plan as needed, frequent reassessment and discussion with other providers as well as arranging for ultimate disposition. This critical to care time was performed to assess and manage the high probability of life-threatening deterioration that could result in multiorgan failure. This critical care time is separate from the separately billable procedures and treating other patients. Medical Decision Making Diagnostic Impression: Primary Impression: Hypertensive urgency Additional Impressions: Febrile illness Sepsis JC (acute kidney injury) SVT (supraventricular tachycardia) Pneumonia Elevated d-dimer Hyperglycemia CHF (congestive heart failure) ER Course 59-year-old female presents for evaluation of fever and altered mental status. Differential includes was not limited to sepsis, pneumonia, COVID-19, arrhythmia, ACS, dehydration, electrolyte abnormality, NMS, serotonin syndrome, hyperthyroidism, thyrotoxicosis. IV line established patient receiving 30 cc/kg bolus. Broad labs sent including thyroid levels, tox screen, blood cultures. EKG shows narrow complex tachycardia with a rate between 150-160. The patient was given IV adenosine no lasting effects on heart rate. Remains hypertensive as well. Labetalol given with good effect. Repeat EKG shows sinus tachycardia with nonspecific ST changes. Rapid Covid swab is negative. Chest x-ray shows mild pulmonary congestion with a redemonstrated right upper lobe lung mass. This is seen on prior x-ray and the patient's daughter states she had a biopsy which returned benign recently. Daughter says the plan is for another biopsy. Labs show significantly of a white count at 20.7, chemistry showing elevated creatinine and BUN consistent with acute kidney injury. Lactic acid within normal limits. She is hyperglycemic with a glucose of 372. No anion gap. Insulin given. Troponin elevated 0.073 and aspirin was given. D-dimer elevated and patient was treated with Lovenox. Urinalysis does not suggest an acute urinary tract infection. Thyroid studies returned within normal limits. Tox screen positive for opiates and benzodiazepines which she was provided earlier today for treatment of cervical strain and spasm. She has a history of shoulder impingement. Patient be admitted to panel physician, Dr. Feliz. Laboratory Tests Test 01/28/20 19:10 01/28/20 19:50 White Blood Count 20.7 K/UL (4.8-10.8) H Red Blood Count 3.26 M/UL (4.20-5.40) L Hemoglobin 9.6 G/DL (12.0-16.0) L Hematocrit 30.9 % (37.0-47.0) L Mean Corpuscular Volume 95 FL (80-99) Mean Corpuscular Hemoglobin 29.3 PG (27.0-31.0) Mean Corpuscular Hemoglobin Concent 31.0 G/DL (32.0-36.0) L Red Cell Distribution Width 15.5 % (11.6-14.8) H Platelet Count 792 K/UL (150-450) H Mean Platelet Volume 5.1 FL (6.5-10.1) L Neutrophils (%) (Auto) % (45.0-75.0) Lymphocytes (%) (Auto) % (20.0-45.0) Monocytes (%) (Auto) % (1.0-10.0) Eosinophils (%) (Auto) % (0.0-3.0) Basophils (%) (Auto) % (0.0-2.0) Neutrophils % (Manual) Pending Lymphocytes % (Manual) Pending Platelet Estimate Pending Platelet Morphology Pending Prothrombin Time 12.3 SEC (9.30-11.50) H Prothrombin Time INR 1.1 (0.9-1.1) Activated Partial Thromboplast Time 29 SEC (23-33) D-Dimer 1.85 mg/L FEU (0.00-0.49) H Sodium Level 137 MMOL/L (136-145) Potassium Level 4.4 MMOL/L (3.5-5.1) Chloride Level 100 MMOL/L (98-107) Carbon Dioxide Level 28 MMOL/L (21-32) Anion Gap 9 mmol/L (5-15) Blood Urea Nitrogen 31 mg/dL (7-18) H Creatinine 1.5 MG/DL (0.55-1.30) H Estimated Glomerular Filtration Rate 42.9 mL/min (>60) Glucose Level 372 MG/DL (74-106) H Lactic Acid Level 1.50 mmol/L (0.4-2.0) Calcium Level 8.2 MG/DL (8.5-10.1) L Phosphorus Level 3.3 MG/DL (2.5-4.9) Magnesium Level 1.4 MG/DL (1.8-2.4) L Ferritin 263 NG/ML (8-388) Total Bilirubin 0.8 MG/DL (0.2-1.0) Aspartate Amino Transferase (AST) 28 U/L (15-37) Alanine Aminotransferase (ALT) 27 U/L (12-78) Alkaline Phosphatase 346 U/L (46-116) H Lactate Dehydrogenase 239 U/L (81-234) H Total Creatine Kinase 27 U/L (26-308) Creatine Kinase MB < 0.5 NG/ML (0.0-3.6) Creatine Kinase MB Relative Index 1.8 Troponin I 0.073 ng/mL (0.000-0.056) C-Reactive Protein, Quantitative 18.2 mg/dL (0.00-0.90) H Pro-B-Type Natriuretic Peptide 97778 pg/mL (0-125) H Total Protein 8.0 G/DL (6.4-8.2) Albumin 2.4 G/DL (3.4-5.0) L Globulin 5.6 g/dL Albumin/Globulin Ratio 0.4 (1.0-2.7) L Lipase 36 U/L (73-393) L Thyroid Stimulating Hormone (TSH) 0.998 uiU/mL (0.358-3.740) Free Thyroxine 1.44 NG/DL (0.76-1.46) Free Triiodothyronine 3.2 pg/mL (2.3-4.2) Salicylates Level 0.6 ug/mL (2.8-20) L Acetaminophen Level < 2 MCG/ML (10-30) L Serum Alcohol < 3 mg/dL Urine Color Yellow Urine Appearance Clear Urine pH 5 (4.5-8.0) Urine Specific [place] 1.020 (1.005-1.035) Urine Protein 4+ (NEGATIVE) H Urine Glucose (UA) 2+ (NEGATIVE) H Urine Ketones Negative (NEGATIVE) Urine Blood 4+ (NEGATIVE) H Urine Nitrite Negative (NEGATIVE) Urine Bilirubin Negative (NEGATIVE) Urine Urobilinogen 1 MG/DL (0.0-1.0) H Urine Leukocyte Esterase Negative (NEGATIVE) Urine RBC 20-30 /HPF (0 - 2) H Urine WBC 0-2 /HPF (0 - 2) Urine Squamous Epithelial Cells Occasional /LPF Urine Bacteria Few /HPF (NONE) Urine Opiates Screen Positive (NEGATIVE) H Urine Barbiturates Screen Negative (NEGATIVE) Phencyclidine (PCP) Screen Negative (NEGATIVE) Urine Amphetamines Screen Negative (NEGATIVE) Urine Benzodiazepines Screen Positive (NEGATIVE) H Urine Cocaine Screen Negative (NEGATIVE) Urine Marijuana (THC) Screen Negative (NEGATIVE) Microbiology Date/Time Source Procedure Growth Status 01/28/20 19:10 Nasopharynx SARS-CoV-2 RdRp Gene Assay - Final Complete EKG Diagnostic Results Troponin ordered: Yes When was troponin ordered?: Jan 28, 2020 EKG Time: 19:38 Rate: tachycardiac Other Impression Narrow complex tachycardia with normal axis. Consistent with supraventricular tachycardia Rhythm Strip Diag. Results Rhythm Strip Time: 19:38 EP Interpretation: yes Rate: 150s Rhythm: no PVC's, no ectopy Chest X-Ray Diagnostic Results Chest X-Ray Diagnostic Results : Chest X-Ray Ordered: Yes # of Views/Limited/Complete: 1 View Indication: Shortness of Breath EP Interpretation: Yes Interpretation: other - Bilateral vascular congestion and patchy opacities. Impression: Other - Bilateral pneumonia Electronically Signed by: Electronically signed by Dr. Joseph Rowley MD CT/MRI/US Diagnostic Results CT/MRI/US Diagnostic Results : Impression Final Report EXAM: CT Chest Without Intravenous Contrast CLINICAL HISTORY: SOB TECHNIQUE: Axial computed tomography images of the chest without intravenous contrast. CTDI is 11.6 mGy and DLP is 478.8 mGy-cm. One or more of the following dose reduction techniques were used: automated exposure control, adjustment of the mA and/or kV according to patient size, use of iterative reconstruction technique. Coronal and sagittal reformatted images were created and reviewed. COMPARISON: 12/14/2019 FINDINGS: Lungs: Moderate diffuse patchy groundglass opacities in both lungs with central distribution, suggest pneumonia versus pulmonary edema. Cavitary lesion and surrounding scarring of right upper lobe are again noted. Pleural space: Unremarkable. No pneumothorax. No significant effusion. Heart: Unremarkable. No cardiomegaly. No significant pericardial effusion. Bones/joints: Mild to moderate degenerative changes. Suspect osteopenia. Soft tissues: Unremarkable. Vasculature: Unremarkable. No thoracic aortic aneurysm. Lymph nodes: Unremarkable. No enlarged lymph nodes. IMPRESSION: Moderate diffuse patchy groundglass opacities in both lungs with central distribution, suggest pneumonia versus pulmonary edema. Radiologist: Adolfo López M.D. Electronically Signed: 01/28/20 20:49 Study ready at 20:42 and initial results transmitted at 20:49 Final Report EXAM: CT Head Without Intravenous Contrast CLINICAL HISTORY: AMS TECHNIQUE: Axial computed tomography images of the head/brain without intravenous contrast. CTDI is 53.4 mGy and DLP is 1098.9 mGy-cm. One or more of the following dose reduction techniques were used: automated exposure control, adjustment of the mA and/or kV according to patient size, use of iterative reconstruction technique. Coronal and sagittal reformatted images were created and reviewed. COMPARISON: 11/17/18 FINDINGS: Brain: Unremarkable. No hemorrhage. No significant white matter disease. No edema. Ventricles: Unremarkable. No ventriculomegaly. Bones/joints: Unremarkable. No acute fracture. Soft tissues: Unremarkable. Sinuses: Unremarkable as visualized. No acute sinusitis. Mastoid air cells: Unremarkable as visualized. No mastoid effusion. IMPRESSION: No acute findings or substantial change Radiologist: Adolfo López M.D. Electronically Signed: 01/28/20 20:46 Study ready at 20:40 and initial results transmitted at 20:46 Last Vital Signs Date Time Temp Pulse Resp B/P (MAP) Pulse Ox O2 Delivery O2 Flow Rate FiO2 01/28/20 18:23 103.5 132 16 175/82 (113) 75 Room Air Disposition: ADMITTED INPATIENT Condition: Serious Joseph Rowley MD Jan 28, 2020 18:46
--- NOTE | 2020-01-28 19:10 | NUR ---
ED Nurse Note: Covid swab, blood sent to lab
--- NOTE | 2020-01-28 19:20 | NUR ---
HAND-OFF: Report given to Meri BUSCH.
[2020-01-28] MEDS ORDERED: Sodium Chloride 2,200 ML IVLG ONE (19:30)
[2020-01-28] MEDS ORDERED: Adenosine 6mg/2ml Inj ONE (19:35)
[2020-01-28 19:36] LABS: HEMATOCRIT 30.9 % (37.0-47.0); HEMOGLOBIN 9.6 G/DL (12.0-16.0); MEAN CORPUSCULAR VOLUME 95 FL (80-99); PLATELET COUNT 792 K/UL (150-450); RED BLOOD COUNT 3.26 M/UL (4.20-5.40); RED CELL DISTRIBUTION WIDTH 15.5 % (11.6-14.8); WHITE BLOOD COUNT 20.7 K/UL (4.8-10.8)
--- NOTE | 2020-01-28 19:40 | NUR ---
ED Nurse Note: Patient unable to tolerate oral medications, ERMD aware, order changed to rectal, wasted oral tylenol with JO-ANN Moya.
[2020-01-28 19:45] LABS: INR 1.1 (0.9-1.1)
[2020-01-28] MEDS ORDERED: cefTRIAXone 2 GM in NS 55 ML IVPB ONE (19:45)
[2020-01-28] MEDS ORDERED: Acetaminophen 650 MG SUPP RECTAL ONE (19:45)
[2020-01-28] MEDS ORDERED: Adenosine 6mg/2ml Inj IVP ONE ×2 (19:45)
[2020-01-28] MEDS ORDERED: Vancomycin 1 GM in NS 275 ML IVPB ONE (19:45)
[2020-01-28 19:53] LABS: ANION GAP 9 mmol/L (5-15); BLOOD UREA NITROGEN 31 mg/dL (7-18); CALCIUM 8.2 MG/DL (8.5-10.1); CARBON DIOXIDE 28 MMOL/L (21-32); CHLORIDE 100 MMOL/L (98-107); CREATININE 1.5 MG/DL (0.55-1.30); POTASSIUM 4.4 MMOL/L (3.5-5.1); SODIUM 137 MMOL/L (136-145)
--- NOTE | 2020-01-28 20:06 | Diagnostic Imaging Report ---
EXAM: XR Chest, 1 View CLINICAL HISTORY: SOB TECHNIQUE: Frontal view of the chest. COMPARISON: CT chest from 12/14/19 FINDINGS: Lungs: Persistent cavitary lesion of right upper lobe with scarring. Mild diffuse interstitial and airspace opacities in both lungs suggest pulmonary edema. Pleural space: Unremarkable. No pneumothorax. Heart: Mild to moderate cardiomegaly. Mediastinum: Unremarkable. Bones/joints: No acute findings IMPRESSION: Persistent cavitary lesion of right upper lobe with scarring. Mild pulmonary edema. Superimposed pneumonia is difficult to exclude.
[2020-01-28 20:09] LABS: ALANINE AMINOTRANSFERASE 27 U/L (12-78); ALBUMIN 2.4 G/DL (3.4-5.0); ALBUMIN/GLOBULIN RATIO 0.4 (1.0-2.7); ALKALINE PHOSPHATASE 346 U/L (46-116); ASPARTATE AMINO TRANSFERASE 28 U/L (15-37); BILIRUBIN,TOTAL 0.8 MG/DL (0.2-1.0); CKMB < 0.5 NG/ML (0.0-3.6); CREATINE KINASE 27 U/L (26-308); FERRITIN 263 NG/ML (8-388); LACTATE DEHYDROGENASE 239 U/L (81-234); PHOSPHORUS 3.3 MG/DL (2.5-4.9)
--- NOTE | 2020-01-28 20:14 | NUR ---
ED Nurse Note: Patient taken to CT in stable condition
[2020-01-28 20:21] LABS: APPEARANCE,URINE CLEAR; BILIRUBIN, URINE NEGATIVE (NEGATIVE); GLUCOSE, URINE (UA) 2+ (NEGATIVE); KETONES,URINE NEGATIVE (NEGATIVE); LEUKOCYTE ESTERASE ,URINE NEGATIVE (NEGATIVE); NITRITE,URINE NEGATIVE (NEGATIVE); PH,URINE 5 (4.5-8.0); PROTEIN,URINE 4+ (NEGATIVE); UROBILINOGEN,URINE 1 MG/DL (0.0-1.0)
[2020-01-28 20:22] LABS: COLOR,URINE YELLOW
[2020-01-28] MEDS ORDERED: Labetalol 5mg/ml 20ml vial IV ONE (20:45)
--- NOTE | 2020-01-28 20:47 | Diagnostic Imaging Report ---
EXAM: CT Head Without Intravenous Contrast CLINICAL HISTORY: AMS TECHNIQUE: Axial computed tomography images of the head/brain without intravenous contrast. CTDI is 53.4 mGy and DLP is 1098.9 mGy-cm. One or more of the following dose reduction techniques were used: automated exposure control, adjustment of the mA and/or kV according to patient size, use of iterative reconstruction technique. Coronal and sagittal reformatted images were created and reviewed. COMPARISON: 11/17/18 FINDINGS: Brain: Unremarkable. No hemorrhage. No significant white matter disease. No edema. Ventricles: Unremarkable. No ventriculomegaly. Bones/joints: Unremarkable. No acute fracture. Soft tissues: Unremarkable. Sinuses: Unremarkable as visualized. No acute sinusitis. Mastoid air cells: Unremarkable as visualized. No mastoid effusion. IMPRESSION: No acute findings or substantial change
--- NOTE | 2020-01-28 20:50 | Diagnostic Imaging Report ---
EXAM: CT Chest Without Intravenous Contrast CLINICAL HISTORY: SOB TECHNIQUE: Axial computed tomography images of the chest without intravenous contrast. CTDI is 11.6 mGy and DLP is 478.8 mGy-cm. One or more of the following dose reduction techniques were used: automated exposure control, adjustment of the mA and/or kV according to patient size, use of iterative reconstruction technique. Coronal and sagittal reformatted images were created and reviewed. COMPARISON: 12/14/2019 FINDINGS: Lungs: Moderate diffuse patchy groundglass opacities in both lungs with central distribution, suggest pneumonia versus pulmonary edema. Cavitary lesion and surrounding scarring of right upper lobe are again noted. Pleural space: Unremarkable. No pneumothorax. No significant effusion. Heart: Unremarkable. No cardiomegaly. No significant pericardial effusion. Bones/joints: Mild to moderate degenerative changes. Suspect osteopenia. Soft tissues: Unremarkable. Vasculature: Unremarkable. No thoracic aortic aneurysm. Lymph nodes: Unremarkable. No enlarged lymph nodes. IMPRESSION: Moderate diffuse patchy groundglass opacities in both lungs with central distribution, suggest pneumonia versus pulmonary edema.
[2020-01-28] MEDS ORDERED: Enoxaparin 40mg Inj SUBQ SCH (21:00)
[2020-01-28] MEDS ORDERED: dexAMETHasone 10mg/ml Inj IV ONE (21:00)
[2020-01-28 21:01] VITALS: BP 125/74
--- NOTE | 2020-01-28 21:01 | NUR ---
ED Nurse Note: Rectal temperature recheck 104.8 F, ERMD aware, ice packs placed on axillary and groin area.
[2020-01-28] MEDS ORDERED: Insulin Human Regular 100units/ml 3ml IV ONE (21:30)
[2020-01-28 21:39] VITALS: BP 113/65
--- NOTE | 2020-01-28 21:39 | NUR ---
ED Nurse Note: Rectal temp recheck 103.7 F, ERMD aware.
--- NOTE | 2020-01-28 21:42 | NUR ---
ED Nurse Note: RT at bedside
[2020-01-28] MEDS: Albuterol/Ipratropium 3ml neb HHN SCH ×3 (21:45→22:06)
[2020-01-28] MEDS ORDERED: Acetaminophen 650 MG SUPP RECTAL PRN (22:15)
[2020-01-28] MEDS: Ipratropium 0.02% Inh Soln 2.5ml UD HHN SCH (23:00)
--- NOTE | 2020-01-28 23:54 | NUR ---
ED Nurse Note: Rectal temp 100.5 F
[2020-01-29] VITALS (37 sets, daily range): BP systolic 78–138; BP diastolic 45–93
--- NOTE | 2020-01-29 00:14 | Emergency Room Report ---
History of Present Illness General Chief Complaint: Altered Level of Consciousness Source: Patient, Family Member Present Illness Allergies: Coded Allergies: No Known Allergies (Unverified , 07/30/15) COVID-19 Screening Contact w/high risk pt: No Recent Travel to affected area: No Experienced COVID-19 symptoms?: No COVID-19 symptoms experienced: Shortness of Breath, Cough COVID-19 Testing performed PHARMACY TECH CUSTOMER SERVICE: No Nursing Documentation-PMH Past Medical History: No History, Except For Hx Cardiac Problems: Yes Hx Hypertension: Yes Hx Asthma: Yes Hx COPD: Yes Hx Diabetes: Yes Hx Cancer: No Hx Gastrointestinal Problems: Yes - GASTRITIS Hx Neurological Problems: No Hx Dizziness: Yes Physical Exam Vital Signs Date Time Temp Pulse Resp B/P (MAP) Pulse Ox O2 Delivery O2 Flow Rate FiO2 01/28/20 18:23 103.5 132 16 175/82 (113) 75 Room Air 01/28/20 21:01 4.0 01/28/20 21:45 36 Procedures Central Line Central Line : Consent: Verbal Central Line Lumen: triple Maximal Sterile Barrier Tech: yes cap, yes mask, yes sterile gown, yes sterile gloves, yes large sterile sheet, yes hand hygiene, yes chlorhexidine prep Central Line Postion: femoral (R) Anesthesia: Lidocaine cc's of anesthesia: 10 US Guided Line?: Yes Vessel visualized with U/S: Right Femoral Vein Ultrasound Findings: Collapsible Vessel, Vessel Patent, Visualize vessel puncture Complications: none Central Line Post Position: sutured, good blood return Attempts: One Patient Tolerated: Well Complications: None Medical Decision Making Diagnostic Impression: Primary Impression: Hypertensive urgency Additional Impressions: Elevated d-dimer CHF (congestive heart failure) Hyperglycemia SVT (supraventricular tachycardia) Sepsis JC (acute kidney injury) Pneumonia Febrile illness ER Course She is signed out to me. She presents with sepsis from pneumonia. She was pending is stepdown unit bed. She became hypotensive. It does respond to fluid but will continue to drop down. Because of that, I place a central line and put her on Levophed. I contacted Dr. Feliz to let him know of change of plan. Last Vital Signs Date Time Temp Pulse Resp B/P (MAP) Pulse Ox O2 Delivery O2 Flow Rate FiO2 01/29/20 00:05 94/61 01/28/20 22:12 99 25 100 Nasal Cannula 4.0 36 96 24 100 01/28/20 21:39 103.7 Disposition: ADMITTED INPATIENT Condition: Critical Referrals: NON PHYSICIAN (PCP) Adonis Knapp MD Jan 29, 2020 00:14
--- NOTE | 2020-01-29 00:20 | NUR ---
TRANSFER TO FLOOR: Patient transferred to ICU as ordered, per ERMD. Report given to JO-ANN Velasco. Patient transported via gurney on radiation monitor accompanied by RN and composite bond technician in stable condition. Patient belongings transported along with pt and handed off to JO-ANN Velasco.
--- NOTE | 2020-01-29 00:30 | NUR ---
NURSE NOTES: Received pt from ER due to AMS ,fever and hypotension , currently pt on LEvophed drip at 12mcg/min and NS started at 50ml/hr. ALL ivf been infusing to RT Femoral central line. pt is inappropriate and confused with period of unresponsiveness. SR- ST on the monitor. Bp Labile. Skin is intact.Will continue to monitor.
--- NOTE | 2020-01-29 01:00 | NUR ---
NURSE NOTES: Inserted Fr 16 allan cath to obtain an accurate I and o. will continue to monitor.
[2020-01-29] MEDS: NovoLOG Insulin Flexpen SUBQ SCH ×4 (01:18→18:54)
[2020-01-29] MEDS: Ipratropium 0.02% Inh Soln 2.5ml UD HHN SCH ×7 (03:00→23:16)
--- NOTE | 2020-01-29 03:00 | NUR ---
NURSE NOTES: Levophed drip was increased per pts Bp. pls see titration.
--- NOTE | 2020-01-29 05:00 | NUR ---
NURSE NOTES: Complete bed bath with bed changed was done. will continue to monitor.
--- NOTE | 2020-01-29 06:00 | NUR ---
NURSE NOTES: pT more alert at this time, AO x3 Sputum cup given to pt for AFB collection . will continue to monitor.
[2020-01-29 06:22] LABS: HEMATOCRIT 28.3 % (37.0-47.0); HEMOGLOBIN 8.6 G/DL (12.0-16.0); MEAN CORPUSCULAR VOLUME 98 FL (80-99); PLATELET COUNT 850 K/UL (150-450); RED CELL DISTRIBUTION WIDTH 15.1 % (11.6-14.8); WHITE BLOOD COUNT 18.4 K/UL (4.8-10.8)
[2020-01-29 06:55] LABS: CALCIUM 7.4 MG/DL (8.5-10.1); CREATININE 2.2 MG/DL (0.55-1.30); POTASSIUM 5.3 MMOL/L (3.5-5.1)
--- NOTE | 2020-01-29 07:37 | NUR ---
NURSE HAND-OFF REPORT: Latest Vital Signs: Temperature 98.0 , Pulse 86 , B/P 103 /53 , Respiratory Rate 15 , O2 SAT 100 , Nasal Cannula, O2 Flow Rate 2.0 . Vital Sign Comment: EKG Rhythm: Sinus Rhythm Rhythm change?: N MD Notified?: - MD Response: Latest Pineda Fall Score: 50 Fall Risk: High Risk Safety Measures: Call light Within Reach, Bed Alarm Zone 1, Side Rails Side Rails x3, Bed position Low and Locked. Fall Precautions: Door Sign Report given to Uyen BUSCH
--- NOTE | 2020-01-29 08:00 | NUR ---
NURSE NOTES: Pt was assessed after receiving change of shift report from Krista BUSCH. Pt is awake, slightly drowsy, oriented to name only. Currently on 2L of oxygen via nasal cannula. NSR on awake overnight monitor. Pt is currently on Levophed drip at 2mcg/min to maintain SBP above 90 and MAP above 65. Levophed is infusing via right femoral TLC. Pt also has peripheral IV access, #18G on right EJ. NS is also infusing at 50ml/hour. Temp 98F axillary. Pt is currently NPO. Flores Catheter is noted, draining clear/dark yellow urine. Skin is intact. HOB at high smith's, three side rails up, bed locked, and call light is placed within easy reach. Will continue to monitor pt and follow plan of care per MD orders and protocol.
--- NOTE | 2020-01-29 08:22 | History & Physical ---
History and Physical History & Physicial 59-year-old female history of COPD and diabetes presents for evaluation of altered mental status and fever. Patient increasingly somnolent, going in and out of consciousness since her discharge. + diarrhea but no vomiting. Cannot obtain information from her at this time. copies of CT and MRI brain results on 01/18 showing no acute findings. PMH: Diabetes, COPD, Gastritis PSH: Biopsy unknown location Allergies: NKA Social Hx: Unable to obtain from patient Physical WDWN somnolent clear breath sounds bilaterally without rhonchi or wheeze [id number] without MRG NABS nontender no HSM no CCE nonfocal Laboratory Tests Test 01/28/20 19:10 01/28/20 19:50 01/28/20 21:28 01/28/20 21:38 White Blood Count 20.7 K/UL (4.8-10.8) H Red Blood Count 3.26 M/UL (4.20-5.40) L Hemoglobin 9.6 G/DL (12.0-16.0) L Hematocrit 30.9 % (37.0-47.0) L Mean Corpuscular Volume 95 FL (80-99) Mean Corpuscular Hemoglobin 29.3 PG (27.0-31.0) Mean Corpuscular Hemoglobin Concent 31.0 G/DL (32.0-36.0) L Red Cell Distribution Width 15.5 % (11.6-14.8) H Platelet Count 792 K/UL (150-450) H Mean Platelet Volume 5.1 FL (6.5-10.1) L Neutrophils (%) (Auto) % (45.0-75.0) Lymphocytes (%) (Auto) % (20.0-45.0) Monocytes (%) (Auto) % (1.0-10.0) Eosinophils (%) (Auto) % (0.0-3.0) Basophils (%) (Auto) % (0.0-2.0) Differential Total Cells Counted 100 Neutrophils % (Manual) 91 % (45-75) H Lymphocytes % (Manual) 3 % (20-45) L Monocytes % (Manual) 3 % (1-10) Eosinophils % (Manual) 1 % (0-3) Basophils % (Manual) 1 % (0-2) Band Neutrophils 1 % (0-8) Platelet Estimate Increased H Platelet Morphology Normal Polychromasia 1+ Hypochromasia 1+ Anisocytosis 1+ Prothrombin Time 12.3 SEC (9.30-11.50) H Prothromb Time International Ratio 1.1 (0.9-1.1) Activated Partial Thromboplast Time 29 SEC (23-33) D-Dimer 1.85 mg/L FEU (0.00-0.49) H Sodium Level 137 MMOL/L (136-145) Potassium Level 4.4 MMOL/L (3.5-5.1) Chloride Level 100 MMOL/L (98-107) Carbon Dioxide Level 28 MMOL/L (21-32) Anion Gap 9 mmol/L (5-15) Blood Urea Nitrogen 31 mg/dL (7-18) H Creatinine 1.5 MG/DL (0.55-1.30) H Estimat Glomerular Filtration Rate 42.9 mL/min (>60) Glucose Level 372 MG/DL (74-106) H Lactic Acid Level 1.50 mmol/L (0.4-2.0) Calcium Level 8.2 MG/DL (8.5-10.1) L Phosphorus Level 3.3 MG/DL (2.5-4.9) Magnesium Level 1.4 MG/DL (1.8-2.4) L Ferritin 263 NG/ML (8-388) Total Bilirubin 0.8 MG/DL (0.2-1.0) Aspartate Amino Transf (AST/SGOT) 28 U/L (15-37) Alanine Aminotransferase (ALT/SGPT) 27 U/L (12-78) Alkaline Phosphatase 346 U/L (46-116) H Lactate Dehydrogenase 239 U/L (81-234) H Total Creatine Kinase 27 U/L (26-308) Creatine Kinase MB < 0.5 NG/ML (0.0-3.6) Creatine Kinase MB Relative Index 1.8 Troponin I 0.073 ng/mL (0.000-0.056) C-Reactive Protein, Quantitative 18.2 mg/dL (0.00-0.90) H Pro-B-Type Natriuretic Peptide 74205 pg/mL (0-125) H Total Protein 8.0 G/DL (6.4-8.2) Albumin 2.4 G/DL (3.4-5.0) L Globulin 5.6 g/dL Albumin/Globulin Ratio 0.4 (1.0-2.7) L Lipase 36 U/L (73-393) L Thyroid Stimulating Hormone (TSH) 0.998 uiU/mL (0.358-3.740) Free Thyroxine 1.44 NG/DL (0.76-1.46) Free Triiodothyronine 3.2 pg/mL (2.3-4.2) Salicylates Level 0.6 ug/mL (2.8-20) L Acetaminophen Level < 2 MCG/ML (10-30) L Serum Alcohol < 3 mg/dL Urine Color Yellow Urine Appearance Clear Urine pH 5 (4.5-8.0) Urine Specific [place] 1.020 (1.005-1.035) Urine Protein 4+ (NEGATIVE) H Urine Glucose (UA) 2+ (NEGATIVE) H Urine Ketones Negative (NEGATIVE) Urine Blood 4+ (NEGATIVE) H Urine Nitrite Negative (NEGATIVE) Urine Bilirubin Negative (NEGATIVE) Urine Urobilinogen 1 MG/DL (0.0-1.0) H Urine Leukocyte Esterase Negative (NEGATIVE) Urine RBC 20-30 /HPF (0 - 2) H Urine WBC 0-2 /HPF (0 - 2) Urine Squamous Epithelial Cells Occasional /LPF Urine Bacteria Few /HPF (NONE) Urine Opiates Screen Positive (NEGATIVE) H Urine Barbiturates Screen Negative (NEGATIVE) Phencyclidine (PCP) Screen Negative (NEGATIVE) Urine Amphetamines Screen Negative (NEGATIVE) Urine Benzodiazepines Screen Positive (NEGATIVE) H Urine Cocaine Screen Negative (NEGATIVE) Urine Marijuana (THC) Screen Negative (NEGATIVE) POC Whole Blood Glucose 341 MG/DL (74-106) H Arterial Blood pH 7.265 (7.350-7.450) Arterial Blood Partial Pressure CO2 49.0 mmHg (35.0-45.0) H Arterial Blood Partial Pressure O2 152.2 mmHg (75.0-100.0) H Arterial Blood HCO3 21.7 mmol/L (22.0-26.0) L Arterial Blood Oxygen Saturation 98.7 % (95-100) Arterial Blood Base Excess -5.1 (-2-2) L Bryan Test Positive Test 01/28/20 22:27 01/29/20 01:11 01/29/20 05:10 POC Whole Blood Glucose 272 MG/DL (74-106) H 251 MG/DL (74-106) H White Blood Count 18.4 K/UL (4.8-10.8) H Red Blood Count 2.90 M/UL (4.20-5.40) L Hemoglobin 8.6 G/DL (12.0-16.0) L Hematocrit 28.3 % (37.0-47.0) L Mean Corpuscular Volume 98 FL (80-99) Mean Corpuscular Hemoglobin 29.7 PG (27.0-31.0) Mean Corpuscular Hemoglobin Concent 30.3 G/DL (32.0-36.0) L Red Cell Distribution Width 15.1 % (11.6-14.8) H Platelet Count 850 K/UL (150-450) H Mean Platelet Volume 4.6 FL (6.5-10.1) L Neutrophils (%) (Auto) % (45.0-75.0) Lymphocytes (%) (Auto) % (20.0-45.0) Monocytes (%) (Auto) % (1.0-10.0) Eosinophils (%) (Auto) % (0.0-3.0) Basophils (%) (Auto) % (0.0-2.0) Differential Total Cells Counted 100 Neutrophils % (Manual) 95 % (45-75) H Lymphocytes % (Manual) 2 % (20-45) L Monocytes % (Manual) 3 % (1-10) Eosinophils % (Manual) 0 % (0-3) Basophils % (Manual) 0 % (0-2) Band Neutrophils 0 % (0-8) Platelet Estimate Increased H Platelet Morphology Normal Hypochromasia 1+ Anisocytosis 1+ Sodium Level 142 MMOL/L (136-145) Potassium Level 5.3 MMOL/L (3.5-5.1) H Chloride Level 108 MMOL/L (98-107) H Carbon Dioxide Level 20 MMOL/L (21-32) L Anion Gap 15 mmol/L (5-15) Blood Urea Nitrogen 37 mg/dL (7-18) H Creatinine 2.2 MG/DL (0.55-1.30) H Estimat Glomerular Filtration Rate 27.6 mL/min (>60) Glucose Level 325 MG/DL (74-106) H Calcium Level 7.4 MG/DL (8.5-10.1) L IMPRESSION acute respiratory failure leukocytosis possible sepsis ARF toxic met encephalopathy COPD DM PLAN ICU care BIPAP follow up ABG antibiotics ID to see NPO DVT prophylaxis medications/laboratory data/nursing notes/ICU care reviewed in detail note reviewed and edited care discussed with RN and RT ICU time spent >40 minutes Germán Feliz MD Jan 29, 2020 08:22
[2020-01-29] MEDS ORDERED: Piperacillin/Tazobactam 3.375 GM in NS 110 ML IVPB SCH (08:30)
[2020-01-29] MEDS: Heparin 5000 units/ml inj SUBQ SCH ×2 (08:45→21:36)
[2020-01-29] MEDS: cefTRIAXone 1gm/D5W 55ml IVPB SCH ×2 (08:45)
[2020-01-29] MEDS: Aspirin Baby 81mg ORAL SCH (08:45)
[2020-01-29] MEDS: Solu-MEDROL 40mg Inj IVP SCH (08:45)
[2020-01-29] MEDS: Metoprolol Tartrate 12.5mg TAB ORAL SCH ×2 (08:46→21:19)
--- NOTE | 2020-01-29 09:00 | NUR ---
NURSE NOTES: AM meds were administered. Metoprolol was held since pt is on Levophed drip for hypotension. Pt was repositioned for comfort.
--- NOTE | 2020-01-29 09:30 | NUR ---
NURSE NOTES: Sputum specimen was collected from pt for Acid Fast Smear and Culture per MD order; specimen was sent to the lab. Next specimen to be collected every 8 hours for a total of 3 collections.
--- NOTE | 2020-01-29 10:00 | NUR ---
NURSE NOTES: Levophed drip has been placed on hold, since vital signs are stable. SBP is above 90 and MAP is above 65. Pt was seen by Dr. Feliz. ABGs were draws per MD order, while pt maintained on 2L of oxygen via nasal cannula at 100% O2Sat.
--- NOTE | 2020-01-29 11:45 | Consultation ---
DATE OF CONSULTATION: 01/29/2020 INFECTIOUS DISEASES CONSULTATION This consult is for coverage of Dr. Lopez. CONSULTING PHYSICIAN: Anderson Durham MD. PRIMARY ATTENDING PHYSICIAN: Germán Feliz MD. REASON FOR CONSULTATION: Sepsis, septic shock, bacteremia, pneumonia. HISTORY OF PRESENT ILLNESS: The patient is a 59-year-old female admitted yesterday from home with fever and altered mental status. The patient complains of neck pain. She had leukocytosis of 20.7 at the time of admission, tachycardia with heart rate of 130, fever of 103.5. PAST MEDICAL HISTORY: Significant for hypertension, hyperlipidemia, diabetes mellitus type 2, COPD, diabetic neuropathy. Had a lung mass that was biopsied, negative for malignancy. Had cavitary lung lesion. The patient had previous admission to [facility] on December 13, 2019. ALLERGIES: No known drug allergies. MEDICATIONS: Vancomycin, ceftriaxone, metoprolol, methylprednisone, heparin, got a dose of Zosyn, norepinephrine, Atrovent, Tylenol, hydralazine, Zofran. SOCIAL HISTORY: Single. Denies alcohol, drug abuse, smoking. REVIEW OF SYSTEMS: Has fever. Has neck pain. Productive cough. No significant shortness of breath. No nausea. No vomiting. Feels hungry. No dysuria. Has some generalized weakness. PHYSICAL EXAMINATION: VITAL SIGNS: Temperature 98, pulse 88, blood pressure 124/93, blood pressure at the time of admission was 187/93 dropped down to 78/45 HEAD AND NECK: Odum conjunctiva. HEART: Normal rate. LUNGS: Clear. ABDOMEN: Soft and nontender. EXTREMITIES: No edema. LABORATORY AND DIAGNOSTIC DATA: WBC today is 18.4, hemoglobin 8.6, hematocrit 28.3, and platelets 815. Sodium 142, potassium 5.3, chloride 108, bicarbonate 20, BUN 37, creatinine 2.2, glucose was 341, decreased to 251. Troponin is elevated . BNP was 10,786. BUN at the time of admission was [address] scan of the chest again showed cavitary lesion that was present in the previous CT, diffuse patchy ground-glass opacity in both lungs suggesting pneumonia versus pulmonary edema. Head CT without change. Chest x-ray persistent cavitary right upper lobe lesion with scarring. Spinal x-ray showed degenerative changes. Blood culture x2 growing gram-positive cocci. COVID test was negative. IMPRESSION: Sepsis with fever, tachycardia, leukocytosis likely with shock, has pneumonia, has has cavitary lung lesion, has COPD. RECOMMENDATION: Continue with vancomycin and ceftriaxone. We will follow up the culture. The patient currently is in airborne isolation for cavitary lung lesion to rule out TB. We will try to obtain more information about the lung biopsy and likely previous TB workup. At the end of my exam, I thank Dr. Feliz, for involving me in the care of this patient. Anderson Durham M.D. DR: Althea JOB#: [id number] CC: MIKE
[2020-01-29] MEDS ORDERED: Sodium Bicarbonate 50ml Carp IV SCH (11:55)
--- NOTE | 2020-01-29 12:00 | NUR ---
NURSE NOTES: Pt was placed on Bipap 15/8 FIO2 30% and ABGs to be drawn post 1 hour. Order also received to administer 2 amps of Bicarb IVP. Pt remains afebrile and NPO and was repositioned for comfort.
--- NOTE | 2020-01-29 13:13 | NUR ---
Social Work This SW followed up with patient, currently in the ICU, who is currently confused, according to nursing. This SW spoke with daughter, Sandra Brenstein @ [phone] who explains patient lives with her, while patient is the mother of nine children (three have ). Patient has a very supportive family, while sandra does not work and will be available to assist patient after discharge. Patient lives in house with no steps and uses a cane as needed. Patient was independent prior, otherwise. Patient does not have a history of mental concerns or substance abuse, according to daughter. Daughter explains that patient is undocumented (from [place]) and follows up with all of her medical care (outpatient) at [facility]. Family are requesting full code. Daughter will transport patient when ready for discharge (family aware patient will not qualify for SSI or any other services due to undocumented, while family plans to support as needed. Pending progress at this time; SW to follow as needed. Brief emotional support provided to daughterSandra who expresses no further needs or concerns at this time; family will contact ICU nursing regarding any progress updates and plans.
--- NOTE | 2020-01-29 14:00 | NUR ---
NURSE NOTES: ABGs were redrawn post 2 amps of Bicarb IVP and Bipap therapy 15/8 30% FIO2. ABG results were reported back to Dr Feliz. Order received to switch Bipap to PRN only, and repeat ABGs for AM.
--- NOTE | 2020-01-29 15:26 | Diagnostic Imaging Report ---
Indication: Reason For Exam: DVT Technique: Grayscale and duplex images of the bilateral lower extremity veins Comparison: None Findings: Bilaterally, grayscale and duplex images demonstrate no evidence of intraluminal thrombus. Normal phasic Doppler waveforms, demonstrating normal augmentation response and no evidence of valvular insufficiency. Greater saphenous vein(s) and tibial veins are patent. Normal compressibility. Impression: Negative for evidence of lower extremity deep venous thrombosis bilaterally
--- NOTE | 2020-01-29 16:00 | NUR ---
NURSE NOTES: Pt had BM, moderate/soft/formed/brown. Pt was cleaned, gown/bed linens were changed. Pt was repositioned with bilateral extremities elevated on pillows/ off/heels. VS remain stable. Levophed remains off. Pt is afebrile.
--- NOTE | 2020-01-29 16:58 | NUR ---
CASE MANAGEMENT:INITIAL REVIEW 59 YR OLD FEMALE FROM HOME CC;ALOC SI;SEPSIS. HYPERTENSIVE URGENCY. CHF. ELEVATED D-DIMER. HYPERGLYCEMIA. JC. PNEUMONIA. 104.8 150 28 215/73 75% ON RA ~ 100% ON 4L NC WBC 20.7 H/H 9.6/30.9 PLT 792 BUN 31 CR 1.5 BG 372 CA 8.2 MAG 1.4 ALP 346 LDH 239 TROP 0.073 CRP 18.2 BNP 44250 ALB 2.4 LIPASE 36 PT 12.3 D-DIMER 1.85 UA+ PROTEIN, GLUCOSE, UROBILINOGEN, RBC URINE TOX (+) OPIATES, BENZODIAZEPINES COVID RAPID ~ NEGATIVE CXR ~ Persistent cavitary lesion of right upper lobe with scarring. Mild pulmonary edema. Superimposed pneumonia is difficult to exclude. HEAD CT ~ No acute findings or substantial change CHEST CT ~ Moderate diffuse patchy groundglass opacities in both lungs with central distribution, suggest pneumonia versus pulmonary edema. IS;TYLENOL PO IVF NS BOLUS ADENOSINE IV VANCOMYCIN IV ROCEPHIN IV LABETALOL IV ASA RECTAL DECADRON IV INSULIN IV LASIX IV ZOFRAN IV DUO NEB HHN ADMITTED TO ICU ICU STATUS DCP;FROM HOME
--- NOTE | 2020-01-29 18:30 | NUR ---
NURSE NOTES: Sputum culture was collected and sent to lab for Acid Fast Smear and Culture. Pt was administered Tylenol for pain per PRN order.
--- NOTE | 2020-01-29 19:15 | NUR ---
NURSE NOTES: pt report received from Kaylee BUSCH. pt remains stable. pt is alert and oriented times 4, able to follow commands. pt is on butter maker showing NSR, no acute abnormalities cardiac vanegas. pt is on 2 L NC, sating 99% O2, no acute resp distress noted. pt bed is low, locked, armed, call light within reach, red rails up times 3. will follow plan of care.
--- NOTE | 2020-01-29 19:30 | NUR ---
NURSE HAND-OFF REPORT: Latest Vital Signs: Temperature 97.9 , Pulse 95 , B/P 138 /71 , Respiratory Rate 18 , O2 SAT 100 , Nasal Cannula, O2 Flow Rate 2.0 . Vital Sign Comment: Pt remains off Levophed. VS remain stable. EKG Rhythm: Sinus Rhythm Rhythm change?: N MD Notified?: - MD Response: Latest Pineda Fall Score: 50 Fall Risk: High Risk Safety Measures: Call light Within Reach, Bed Alarm Zone 1, Side Rails Side Rails x3, Bed position Low and Locked. Fall Precautions: Door Sign Report given to Jm BUSCH. Endorsed plan of care including 3rd sputum collection.
[2020-01-29] MEDS ORDERED: Vancomycin 1.5gm/NS Premix q24h IVPB SCH (20:00)
[2020-01-29] MEDS ORDERED: Dyna-Hex 2% Top Sol 2oz TOPIC SCH (20:00)
--- NOTE | 2020-01-29 21:10 | NUR ---
NURSE NOTES: pt had times 2 small bowl movements. stool appear normal brown, no abnormal smell to stool.
[2020-01-29] MEDS: Dyna-Hex 2% Top Sol 2oz TOPIC SCH (21:22)
--- NOTE | 2020-01-29 22:11 | NUR ---
NURSE NOTES: called doctor Trini urgent line. requested pt has medication for pain. awaiting call back, awaiting new orders.
--- NOTE | 2020-01-29 22:22 | NUR ---
NURSE NOTES: spoke with Doctor Shahzad Durham. stated pt is complaining of neck pain. stated pt does not have any allergies. Doctor ordered Morphine 2MG IV Q4 hrs. will follow orders.
[2020-01-29] MEDS: Morphine Sulfate 2mg/ml Inj(IV/IM USE ONLY) IVP PRN (22:32)
--- NOTE | 2020-01-29 23:05 | NUR ---
NURSE NOTES: re assessed pt after morphine med given. pt appears to be asleep. easily arousable. pt stated pain has subsided. vital signs are stable.
[2020-01-30] VITALS (26 sets, daily range): BP systolic 83–201; BP diastolic 47–99
[2020-01-30] MEDS: NovoLOG Insulin Flexpen SUBQ SCH ×5 (00:35→23:31)
--- NOTE | 2020-01-30 02:21 | NUR ---
NURSE NOTES: acid fast smear and culture collected and sent down to lab.
[2020-01-30] MEDS: Ipratropium 0.02% Inh Soln 2.5ml UD HHN SCH ×6 (02:24→23:25)
[2020-01-30] MEDS: Morphine Sulfate 2mg/ml Inj(IV/IM USE ONLY) IVP PRN ×4 (03:12→21:01)
--- NOTE | 2020-01-30 03:30 | NUR ---
NURSE NOTES: pt turned, cleaned, and repositioned. morphine given for pain. vital signs stable.
--- NOTE | 2020-01-30 04:00 | NUR ---
NURSE NOTES: pts lab/ blood work drawn. T spot lab/ blood done as well.
[2020-01-30 05:37] LABS: HEMATOCRIT 25.2 % (37.0-47.0); HEMOGLOBIN 7.6 G/DL (12.0-16.0); MEAN CORPUSCULAR VOLUME 100 FL (80-99); PLATELET COUNT 558 K/UL (150-450); RED BLOOD COUNT 2.52 M/UL (4.20-5.40); RED CELL DISTRIBUTION WIDTH 15.6 % (11.6-14.8)
[2020-01-30 05:48] LABS: WHITE BLOOD COUNT 23.7 K/UL (4.8-10.8)
--- NOTE | 2020-01-30 05:54 | NUR ---
NURSE NOTES: called doctor John urgent line. reported critcal lab value of WBC 23.7. awaiting call back, awaiting new orders.
[2020-01-30 05:58] LABS: CALCIUM 7.3 MG/DL (8.5-10.1); POTASSIUM 4.8 MMOL/L (3.5-5.1)
--- NOTE | 2020-01-30 07:20 | NUR ---
NURSE HAND-OFF REPORT: Latest Vital Signs: Temperature 98.5 , Pulse 117 , B/P 192 /97 , Respiratory Rate 27 , O2 SAT 100 , Nasal Cannula, O2 Flow Rate 2.0 . Vital Sign Comment: elevated BP. hydralazine + morphine given. endorsed to Elle BUSCH. EKG Rhythm: Sinus Rhythm Rhythm change?: N Notified?: - MD Response: Latest Pineda Fall Score: 50 Fall Risk: High Risk Safety Measures: Call light Within Reach, Bed Alarm Zone 1, Side Rails Side Rails x3, Bed position Low and Locked. Fall Precautions: Door Sign Report given to Elle BUSCH .
--- NOTE | 2020-01-30 07:58 | NUR ---
NURSE NOTES: Troponin reported to Dr. Perkins who will report to Dr. Trinidad.
--- NOTE | 2020-01-30 08:06 | Critical Care Progress Note ---
Assessment/Plan Assessment/Plan IMPRESSION acute respiratory failure leukocytosis possible sepsis ARF toxic met encephalopathy COPD DM PLAN ICU care BIPAP as needed currently off and good oxygen saturations follow up ABG antibiotics ID noted NPO DVT prophylaxis medications/laboratory data/nursing notes/ICU care reviewed in detail note reviewed and edited care discussed with RN and RT ICU time spent >40 minutes Critical Care - Subjective ROS Limited/Unobtainable: Yes Condition: critical I&O: Intake and Output 01/29/20 01/30/20 19:00 07:00 Intake Total 725.00 ml 808.3 ml Output Total 480 ml 460 ml Balance 245.00 ml 348.3 ml Intake Oral 0 ml 0 ml IV Total 725.00 ml 808.3 ml Output Urine Total 480 ml 460 ml # Bowel Movements 1 5 Critical Care - Objective Last 24 Hour Vital Signs Date Time Temp Pulse Resp B/P (MAP) Pulse Ox O2 Delivery O2 Flow Rate FiO2 01/30/20 06:00 117 27 192/97 (128) 100 01/30/20 05:24 201/95 01/30/20 05:00 112 23 201/95 (130) 99 01/30/20 04:00 98.5 101 28 157/87 (110) 100 01/30/20 04:00 Nasal Cannula 2.0 01/30/20 04:00 99 01/30/20 03:42 98.7 01/30/20 03:00 96 27 165/88 (113) 98 01/30/20 02:00 81 25 112/85 (94) 100 01/30/20 01:00 78 21 118/66 (83) 97 01/30/20 00:00 98.2 81 19 117/60 (79) 100 01/30/20 00:00 Nasal Cannula 2.0 01/30/20 00:00 81 01/29/20 23:45 117/60 01/29/20 23:17 84 20 100 Nasal Cannula 2.0 28 81 19 100 01/29/20 23:02 98.9 01/29/20 23:00 81 20 125/68 (87) 100 01/29/20 22:00 94 21 136/71 (92) 100 01/29/20 21:19 112 127/66 01/29/20 21:00 99 20 127/65 (85) 100 01/29/20 20:00 Nasal Cannula 2.0 01/29/20 20:00 100 01/29/20 20:00 98.4 106 22 109/70 (83) 99 01/29/20 19:30 100 Nasal Cannula 2.0 28 01/29/20 19:30 102 19 100 Nasal Cannula 2.0 28 99 21 100 01/29/20 19:00 95 18 138/71 (93) 100 01/29/20 18:47 97.9 01/29/20 18:00 97 20 118/63 (81) 100 01/29/20 17:00 94 18 113/63 (80) 100 01/29/20 16:00 97.9 96 23 131/80 (97) 100 01/29/20 16:00 93 01/29/20 16:00 Nasal Cannula 2.0 01/29/20 15:48 83 20 100 Nasal Cannula 2.0 28 94 22 100 01/29/20 15:00 76 15 128/68 (88) 100 01/29/20 14:00 77 16 116/54 (74) 100 01/29/20 13:00 78 3 108/61 (77) 100 01/29/20 12:31 86 23 100 30 01/29/20 12:11 86 23 100 Bi-Pap 30 01/29/20 12:00 97.9 82 16 103/71 (82) 100 01/29/20 12:00 Nasal Cannula 2.0 01/29/20 12:00 82 01/29/20 11:00 82 22 130/64 (86) 100 01/29/20 10:31 83 20 100 Nasal Cannula 2.0 28 81 18 100 01/29/20 10:30 82 16 102/60 (74) 100 01/29/20 10:00 80 16 102/55 (71) 100 01/29/20 10:00 115/63 01/29/20 09:30 86 22 103/55 (71) 100 01/29/20 09:00 82 21 124/93 (103) 100 01/29/20 09:00 124/93 01/29/20 08:30 83 15 114/66 (82) 100 Labs: Laboratory Tests 01/29/20 08:29: Arterial Blood pH 7.284L, Arterial Blood Partial Pressure CO2 44.4, Arterial Blood Partial Pressure O2 100.2H, Arterial Blood HCO3 20.6L, Arterial Blood Oxygen Saturation 97.1, Arterial Blood Base Excess -5.7L, Bryan Test Positive 01/29/20 13:26: Arterial Blood pH 7.368, Arterial Blood Partial Pressure CO2 46.0H, Arterial Blood Partial Pressure O2 104.4H, Arterial Blood HCO3 25.9, Arterial Blood Oxygen Saturation 96.6, Arterial Blood Base Excess 0.4, Bryan Test Positive 01/30/20 00:28: POC Whole Blood Glucose 351H 01/30/20 03:37: POC Whole Blood Glucose 275H 01/30/20 04:10: White Blood Count 23.7*H, Red Blood Count 2.52L, Hemoglobin 7.6L, Hematocrit 25.2L, Mean Corpuscular Volume 100H, Mean Corpuscular Hemoglobin 30.2, Mean Corpuscular Hemoglobin Concent 30.2L, Red Cell Distribution Width 15.6H, Platelet Count 558H, Mean Platelet Volume 5.5L, Neutrophils (%) (Auto) , Lymphocytes (%) (Auto) , Monocytes (%) (Auto) , Eosinophils (%) (Auto) , Basophils (%) (Auto) , Neutrophils % (Manual) [Pending], Lymphocytes % (Manual) [Pending], Platelet Estimate [Pending], Platelet Morphology [Pending], Sodium Level 140, Potassium Level 4.8, Chloride Level 104, Carbon Dioxide Level 22, Anion Gap 14, Blood Urea Nitrogen 58H, Creatinine 2.0H, Estimat Glomerular Filtration Rate 30.9, Glucose Level 254H, Calcium Level 7.3L, Troponin I 4.698H, TB Test (T-Spot) [Pending], TB Test Nil Control (T-Spot) [Pending], TB Test Panel A (T-Spot) [Pending], TB Test Panel B (T-Spot) [Pending], TB Test Positive Control (T-Spot) [Pending] 01/30/20 05:19: POC Whole Blood Glucose [Pending] Objective: WDWN ill appearing reduced breath sounds bilaterally without rhonchi or wheeze [id number] without MRG NABS nontender no HSM no CCE nonfocal Micro: Microbiology Date/Time Source Procedure Growth Status 01/29/20 00:03 Rectum Received 01/28/20 19:10 Nasopharynx SARS-CoV-2 RdRp Gene Assay - Final Complete 01/28/20 19:10 Blood Blood Culture - Preliminary Resulted 01/28/20 18:50 Blood Blood Culture - Preliminary Resulted Accucheck: 229 Germán Feliz MD Jan 30, 2020 08:06
[2020-01-30] MEDS: Aspirin Baby 81mg ORAL SCH (08:34)
[2020-01-30] MEDS: Solu-MEDROL 40mg Inj IVP SCH (08:34)
[2020-01-30] MEDS: Metoprolol Tartrate 12.5mg TAB ORAL SCH (08:35)
[2020-01-30] MEDS: Heparin 5000 units/ml inj SUBQ SCH ×2 (08:37→20:54)
[2020-01-30] MEDS: cefTRIAXone 1gm/D5W 55ml IVPB SCH ×2 (08:59)
[2020-01-30] MEDS ORDERED: Metoprolol Tartrate 12.5mg TAB ORAL SCH (09:00)
[2020-01-30] MEDS: HYDROcodone/Acetamin 10/325 tab ORAL PRN ×2 (10:50→20:50)
--- NOTE | 2020-01-30 11:09 | NUR ---
NURSE NOTES: Patient complaining of severe chest pain. EKG taken showing SR. Will report to Dr. Trinidad.
--- NOTE | 2020-01-30 11:23 | Infectious Diseases Prog Note ---
Assessment/Plan Assessment/Plan antibiotics : vancomycin iv, ceftriaxone A 1. cavitary pneumonia r/o TB 2. gram positive sepsis 3. diabetes mellitus 4. hypertension 5. COPD 6. renal failure improving P 1. continue iv vancomycin, ceftriaxone 2. will follow up culture 3. continue isolation 4. sputum for AFB pending Subjective Constitutional: Denies: fever, chills Respiratory: Reports: shortness of breath, dry cough Gastrointestinal/Abdominal: Denies: nausea, vomiting, diarrhea Musculoskeletal: Reports: pain Allergies: Coded Allergies: No Known Allergies (Unverified , 07/30/15) Objective Last 24 Hour Vital Signs Date Time Temp Pulse Resp B/P (MAP) Pulse Ox O2 Delivery O2 Flow Rate FiO2 01/30/20 10:49 83 120/70 01/30/20 10:00 100 29 120/70 (87) 100 01/30/20 09:00 100 29 153/88 (109) 100 01/30/20 08:35 202/98 01/30/20 08:35 116 202/98 01/30/20 08:00 97.6 99 26 158/88 (111) 100 01/30/20 08:00 87 01/30/20 07:00 98 28 134/99 (111) 100 01/30/20 06:00 117 27 192/97 (128) 100 01/30/20 05:24 201/95 01/30/20 05:00 112 23 201/95 (130) 99 01/30/20 04:00 98.5 101 28 157/87 (110) 100 01/30/20 04:00 Nasal Cannula 2.0 01/30/20 04:00 99 01/30/20 03:42 98.7 01/30/20 03:00 96 27 165/88 (113) 98 01/30/20 02:00 81 25 112/85 (94) 100 01/30/20 01:00 78 21 118/66 (83) 97 01/30/20 00:00 98.2 81 19 117/60 (79) 100 01/30/20 00:00 Nasal Cannula 2.0 01/30/20 00:00 81 01/29/20 23:45 117/60 01/29/20 23:17 84 20 100 Nasal Cannula 2.0 28 81 19 100 01/29/20 23:02 98.9 01/29/20 23:00 81 20 125/68 (87) 100 01/29/20 22:00 94 21 136/71 (92) 100 01/29/20 21:19 112 127/66 01/29/20 21:00 99 20 127/65 (85) 100 01/29/20 20:00 Nasal Cannula 2.0 01/29/20 20:00 100 01/29/20 20:00 98.4 106 22 109/70 (83) 99 01/29/20 19:30 100 Nasal Cannula 2.0 28 01/29/20 19:30 102 19 100 Nasal Cannula 2.0 28 99 21 100 01/29/20 19:00 95 18 138/71 (93) 100 01/29/20 18:47 97.9 01/29/20 18:00 97 20 118/63 (81) 100 01/29/20 17:00 94 18 113/63 (80) 100 01/29/20 16:00 97.9 96 23 131/80 (97) 100 01/29/20 16:00 93 01/29/20 16:00 Nasal Cannula 2.0 01/29/20 15:48 83 20 100 Nasal Cannula 2.0 28 94 22 100 01/29/20 15:00 76 15 128/68 (88) 100 01/29/20 14:00 77 16 116/54 (74) 100 01/29/20 13:00 78 3 108/61 (77) 100 01/29/20 12:31 86 23 100 30 01/29/20 12:11 86 23 100 Bi-Pap 30 01/29/20 12:00 97.9 82 16 103/71 (82) 100 01/29/20 12:00 Nasal Cannula 2.0 01/29/20 12:00 82 Height (Feet): 5 Height (Inches): 1.00 Weight (Pounds): 168 Respiratory/Chest: lungs clear Cardiovascular: normal rate, regular rhythm, no gallop/murmur Abdomen: soft, non tender Extremities: no edema Microbiology Date/Time Source Procedure Growth Status 01/29/20 00:03 Rectum Received 01/28/20 19:10 Nasopharynx SARS-CoV-2 RdRp Gene Assay - Final Complete 01/28/20 19:10 Blood Blood Culture - Preliminary Resulted 01/28/20 18:50 Blood Blood Culture - Preliminary Resulted Laboratory Tests Test 01/29/20 13:26 01/30/20 00:28 01/30/20 03:37 01/30/20 04:10 Arterial Blood pH 7.368 (7.350-7.450) Arterial Blood Partial Pressure CO2 46.0 mmHg (35.0-45.0) H Arterial Blood Partial Pressure O2 104.4 mmHg (75.0-100.0) H Arterial Blood HCO3 25.9 mmol/L (22.0-26.0) Arterial Blood Oxygen Saturation 96.6 % (95-100) Arterial Blood Base Excess 0.4 (-2-2) Bryan Test Positive POC Whole Blood Glucose 351 MG/DL (74-106) H 275 MG/DL (74-106) H White Blood Count 23.7 K/UL (4.8-10.8) *H Red Blood Count 2.52 M/UL (4.20-5.40) L Hemoglobin 7.6 G/DL (12.0-16.0) L Hematocrit 25.2 % (37.0-47.0) L Mean Corpuscular Volume 100 FL (80-99) H Mean Corpuscular Hemoglobin 30.2 PG (27.0-31.0) Mean Corpuscular Hemoglobin Concent 30.2 G/DL (32.0-36.0) L Red Cell Distribution Width 15.6 % (11.6-14.8) H Platelet Count 558 K/UL (150-450) H Mean Platelet Volume 5.5 FL (6.5-10.1) L Neutrophils (%) (Auto) % (45.0-75.0) Lymphocytes (%) (Auto) % (20.0-45.0) Monocytes (%) (Auto) % (1.0-10.0) Eosinophils (%) (Auto) % (0.0-3.0) Basophils (%) (Auto) % (0.0-2.0) Differential Total Cells Counted 100 Neutrophils % (Manual) 92 % (45-75) H Lymphocytes % (Manual) 5 % (20-45) L Monocytes % (Manual) 0 % (1-10) L Eosinophils % (Manual) 0 % (0-3) Basophils % (Manual) 0 % (0-2) Band Neutrophils 3 % (0-8) Platelet Estimate Increased H Platelet Morphology Normal Hypochromasia 1+ Anisocytosis 1+ Macrocytosis 1+ Sodium Level 140 MMOL/L (136-145) Potassium Level 4.8 MMOL/L (3.5-5.1) Chloride Level 104 MMOL/L (98-107) Carbon Dioxide Level 22 MMOL/L (21-32) Anion Gap 14 mmol/L (5-15) Blood Urea Nitrogen 58 mg/dL (7-18) H Creatinine 2.0 MG/DL (0.55-1.30) H Estimat Glomerular Filtration Rate 30.9 mL/min (>60) Glucose Level 254 MG/DL (74-106) H Calcium Level 7.3 MG/DL (8.5-10.1) L Troponin I 4.698 ng/mL (0.000-0.056) TB Test (T-Spot) Pending TB Test Nil Control (T-Spot) Pending TB Test Panel A (T-Spot) Pending TB Test Panel B (T-Spot) Pending TB Test Positive Control (T-Spot) Pending Test 01/30/20 05:19 01/30/20 09:43 POC Whole Blood Glucose Pending Arterial Blood pH 7.453 (7.350-7.450) Arterial Blood Partial Pressure CO2 29.7 mmHg (35.0-45.0) L Arterial Blood Partial Pressure O2 64.9 mmHg (75.0-100.0) L Arterial Blood HCO3 20.3 mmol/L (22.0-26.0) L Arterial Blood Oxygen Saturation 92.7 % (95-100) L Arterial Blood Base Excess -3.1 (-2-2) L Bryan Test Positive Current Medications Medications (Trade) Dose Ordered Sig/Ivana Route PRN Reason Start Time Stop Time Status Last Admin Dose Admin Acetaminophen (Tylenol) 650 mg Q6H PRN ORAL MILD PAIN, FEVER 01/28/20 22:45 02/27/20 22:44 01/29/20 18:17 Acetaminophen/ Hydrocodone Bitart ([place] 10/325) 1 tab Q4H PRN ORAL breakthrough pain 01/30/20 10:43 02/06/20 10:42 01/30/20 10:50 Aspirin (ASA) 81 mg DAILY ORAL 01/29/20 09:00 03/14/20 08:59 01/30/20 08:34 Ceftriaxone Sodium 1 gm/ Dextrose 55 ml @ 110 mls/hr Q24H IVPB 01/29/20 09:00 02/05/20 08:59 01/30/20 08:59 Chlorhexidine Gluconate (Divina-Hex 2%) 1 applic DAILY@2000 TOPIC 01/29/20 20:00 04/28/20 19:59 01/29/20 21:22 Dextrose (Dextrose 50%) 25 ml Q30M PRN IV Hypoglycemia 01/28/20 22:45 04/27/20 22:44 Dextrose (Dextrose 50%) 50 ml Q30M PRN IV Hypoglycemia 01/28/20 22:45 04/27/20 22:44 Heparin Sodium (Porcine) (Heparin 5000 units/ml) 5,000 units EVERY 12 HOURS SUBQ 01/29/20 09:00 03/14/20 08:59 01/30/20 08:37 Hydralazine HCl (Apresoline) 10 mg Q6HR PRN IV SBP>180 01/28/20 22:45 04/27/20 22:44 01/30/20 08:35 Insulin Aspart (NovoLOG) Q6HR SUBQ 01/29/20 00:00 04/28/20 00:00 01/30/20 05:28 Ipratropium [place] (Atrovent) 500 mcg Q4HRT HHN 01/28/20 23:00 02/02/20 22:59 01/30/20 07:58 Methylprednisolone Sodium Succinate (Solu-MEDROL) 30 mg DAILY IVP 01/29/20 09:00 04/28/20 08:59 01/30/20 08:34 Metoprolol Tartrate (Lopressor) 25 mg Q12HR ORAL 01/30/20 21:00 04/29/20 20:59 Morphine Sulfate (Morphine Sulfate) 2 mg Q4H PRN IVP Severe Pain (Pain Scale 7-10) 01/29/20 22:30 02/05/20 22:29 01/30/20 08:59 Norepinephrine Bitartrate 8 mg/ Dextrose 250 ml @ 0 mls/hr Q24H IV 01/28/20 23:45 01/31/20 23:44 01/28/20 23:48 Ondansetron HCl (Zofran) 4 mg Q6H PRN IVP Nausea & Vomiting 01/28/20 22:45 02/27/20 22:44 Sodium Chloride 1,000 ml @ 50 mls/hr Q20H IV 01/29/20 00:00 02/28/20 00:00 01/29/20 21:20 Vancomycin HCl (Vanco pharmacy to dose) 1 ea DAILY PRN MISC Per rx protocol 01/28/20 22:45 02/27/20 22:44 Messi Lopez MD Jan 30, 2020 11:23
[2020-01-30] MEDS ORDERED: NS 275ml ONE (13:33)
--- NOTE | 2020-01-30 18:05 | NUR ---
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 98.2 HR 81 RR 29 B/P 120/80 N/C 2L O2 SAT @ 99% WBC 23.7 H/H 7.6/25.2 BUN 58 CR 2.0 IS: IVF NS @ 50ML/HR SOLU MEDROL IV CEFTRIAXONE IV ICU STATUS
--- NOTE | 2020-01-30 18:07 | NUR ---
AUTOMATION TENDER NOTES CLINICALS REVIEWED AND FAXED. Addendum: 01/30/20 at 1814 by JARRED MORALES RN RN PLEASE DISREGARD ABOVE DOCUMENTATION. DOCUMENTED IN ERROR.
--- NOTE | 2020-01-30 19:00 | NUR ---
NURSE NOTES: Patient BS taken at 1815 and found to be 52. BS rechecked and was 60. 3 juices given allong with jello and food. After 15min, BS 61. More juice given and urged to eat. After another 15min,BS 56. More juice given and order received to change fluids to D5NS. BS now found to be 171.
--- NOTE | 2020-01-30 19:01 | NUR ---
NURSE NOTES: received pt from Elle BUSCH., pt is awake and AOx1 at this time. pt is on 2L of NC and no SOB at this time. pt is on allan cath draining well with gravity, no active bleeding noted at this time. ABD soft, round, non-tender at this time.right EJ 18G, right femoral TLC site intact, clean, and patent. D5NS is running at 50 ml/hr. call light within reach. will continue to monitor pt with plan of care. bed at the lowest position, alarmed, bed side rails x 3 up, and locked. will continue to monitor pt with plan of care.
[2020-01-30] MEDS: D5NS 1,000 ML IV SCH (19:43)
--- NOTE | 2020-01-30 20:00 | NUR ---
NURSE NOTES: pt is awake AOx2 at this time. pt is able to follow commands. call light within reach.will continue to monitor pt.
[2020-01-30] MEDS: Dyna-Hex 2% Top Sol 2oz TOPIC SCH (20:54)
--- NOTE | 2020-01-30 22:00 | NUR ---
NURSE NOTES: repositioned pt, pt sates pt is comfortable at this time. no SOB noted. no active bleeding noted. call light within reach. will continue to monitor pt.
[2020-01-31] VITALS (25 sets, daily range): BP systolic 110–197; BP diastolic 57–106
--- NOTE | 2020-01-31 | NUR ---
NURSE NOTES: pt is sleeping at this time. no SOB noted. pt states " I am comfortable now." pt BS is 248. call light within reach. will continue to monitor pt.
--- NOTE | 2020-01-31 02:00 | NUR ---
NURSE NOTES: pt is resting on the bed, repositioned pt. pt seems comfortable. call light within reach.
[2020-01-31] MEDS: Ipratropium 0.02% Inh Soln 2.5ml UD HHN SCH ×6 (03:49→23:02)
--- NOTE | 2020-01-31 04:02 | NUR ---
NURSE NOTES: cleaned pt, repositioned pt, oral care given. pt states " No pain now, I want to sleep." no SOB noted. call light within reach. bed at the lowest position, alarmed, and locked. will continue to monitor
--- NOTE | 2020-01-31 04:11 | Cardiology Report ---
APPROVED REPORT EXAM: Two-dimensional and M-mode echocardiogram with Doppler and color Doppler. M-Mode DIMENSIONS IVSd1.3 (0.7-1.1cm)Left Atrium (MM)4.2 (1.6-4.0cm) LVDd4.5 (3.5-5.6cm)Aortic Root2.9 (2.0-3.7cm) PWd1.5 (0.7-1.1cm)Aortic Cusp Exc.1.3 (1.5-2.0cm) IVSs1.4 cm LVDs3.5 (2.5-4.0cm) PWs2.0 cm <Conclusion> Technically difficult study due to poor acoustical windows & patient was in a lot of pain. Normal left ventricular chamber size. MIld global left ventricular hypokinesis, worse in mid to distal septum. Left ventricular ejection fraction estimated to be 40-45 %. No evidence of left ventricular hypertrophy. No evidence of pericardial effusion. All other cardiac chamber sizes are within normal limits. Aortic valve calcification with decreased cusp excursion c/w aortic stenosis. Moderately thickened mitral valve leaflets with normal excursion. Moderate mitral annulus and aortic root calcification. Pulmonic valve not well visualized. Normal tricuspid valve structure. IVC dilated at 2.6 cm without physiologic collapse suggestive of elevated RAP. A color flow and spectral Doppler study was performed and revealed: Mild aortic insufficiency. Peak aortic valve gradient of 21 mm Hg and a mean of 13 mmHg the gradient may be underestimated due to LV systoic dysfunction Aortic valve area 1.5 cm2 calculated by continuity equation. Peak mitral valve gradient of 8 mm Hg and a mean of 3 mmHg. Mild to moderate mitral regurgitation. Mitral diastolic velocities suggest reduced left ventricular relaxation c/w mild diastolic dysfunction (Grade I). Moderate tricuspid regurgitation. Tricuspid systolic velocities suggests peak right ventricular systolic pressure of 63 mmHg, consistent with severe pulmonary hypertension. Trace pulmonic regurgitation present.
[2020-01-31 05:17] LABS: HEMATOCRIT 25.3 % (37.0-47.0); HEMOGLOBIN 7.4 G/DL (12.0-16.0); MEAN CORPUSCULAR VOLUME 101 FL (80-99); PLATELET COUNT 448 K/UL (150-450); RED BLOOD COUNT 2.52 M/UL (4.20-5.40); RED CELL DISTRIBUTION WIDTH 15.9 % (11.6-14.8); WHITE BLOOD COUNT 19.2 K/UL (4.8-10.8)
--- NOTE | 2020-01-31 05:30 | NUR ---
NURSE NOTES: pt had medium BM with brown soft, no bleeding noted. changed bottom sheet. call light within reach. will continue to monitor pt.
[2020-01-31 05:39] LABS: CALCIUM 7.5 MG/DL (8.5-10.1); CREATININE 2.3 MG/DL (0.55-1.30); POTASSIUM 5.4 MMOL/L (3.5-5.1)
--- NOTE | 2020-01-31 06:05 | NUR ---
NURSE NOTES: notified Dr. Feliz regarding abnormal labs: hgb 7.4 potassium 5.4 BUN 81 creat 2.3 will wait for call back.
[2020-01-31] MEDS: NovoLOG Insulin Flexpen SUBQ SCH ×4 (06:23→23:21)
--- NOTE | 2020-01-31 06:54 | NUR ---
NURSE NOTES: received order from Dr. Feliz 2 units or PRBC. no other order received. noted and will carry on.
--- NOTE | 2020-01-31 07:03 | NUR ---
NURSE NOTES: left voice mail to pt's daughter (Sandra Bernstein)[phone] to obtain the blood transfusion consent. will wait for call back.
--- NOTE | 2020-01-31 07:15 | NUR ---
NURSE NOTES: Patient stable, AOx4 with no complaints and no s/sx of pain or distress. RR even and unlabored on 2LNC. Fluids infusing. Side rails up x2, call light within reach, bed low and locked.
--- NOTE | 2020-01-31 07:19 | NUR ---
NURSE HAND-OFF REPORT: Latest Vital Signs: Temperature 97.9 , Pulse 74 , B/P 153 /73 , Respiratory Rate 12 , O2 SAT 97 , Nasal Cannula, O2 Flow Rate 2.0 . Vital Sign Comment: stable EKG Rhythm: Sinus Rhythm Rhythm change?: N MD Notified?: - MD Response: Latest Pineda Fall Score: 50 Fall Risk: High Risk Safety Measures: Call light Within Reach, Bed Alarm Zone 1, Side Rails Side Rails x3, Bed position Low and Locked. Fall Precautions: Door Sign Report given to Elle BANKS,
[2020-01-31] MEDS: Morphine Sulfate 2mg/ml Inj(IV/IM USE ONLY) IVP PRN ×3 (08:50→17:25)
[2020-01-31] MEDS: cefTRIAXone 1gm/D5W 55ml IVPB SCH ×2 (08:50)
[2020-01-31] MEDS: Solu-MEDROL 40mg Inj IVP SCH (08:51)
[2020-01-31] MEDS: Aspirin Baby 81mg ORAL SCH (08:51)
[2020-01-31] MEDS: Heparin 5000 units/ml inj SUBQ SCH ×2 (08:54→20:20)
--- NOTE | 2020-01-31 09:00 | NUR ---
NURSE NOTES: Patient refusing to give consent for blood transfusion. Would like to discuss it with her family.
--- NOTE | 2020-01-31 09:38 | Critical Care Progress Note ---
Assessment/Plan Assessment/Plan IMPRESSION acute respiratory failure leukocytosis possible sepsis ARF toxic met encephalopathy COPD DM cavitary lesion groundglass infiltrates PLAN ICU care BIPAP as needed currently off and good oxygen saturations follow up ABG noted antibiotics ID noted PO with caution AFB x1 negative; COVID negative DVT prophylaxis medications/laboratory data/nursing notes/ICU care reviewed in detail note reviewed and edited care discussed with RN and RT ICU time spent >40 minutes Critical Care - Subjective ROS Limited/Unobtainable: Yes Condition: improving EKG Rhythm: Sinus Rhythm I&O: Intake and Output 01/30/20 01/31/20 19:00 07:00 Intake Total 1645 ml 449.1666 ml Output Total 500 ml 510 ml Balance 1145 ml -60.8334 ml Intake Oral 1140 ml 35 ml IV Total 505 ml 414.1666 ml Output Urine Total 500 ml 510 ml # Bowel Movements 1 Critical Care - Objective Last 24 Hour Vital Signs Date Time Temp Pulse Resp B/P (MAP) Pulse Ox O2 Delivery O2 Flow Rate FiO2 01/31/20 07:30 97 Nasal Cannula 2.0 28 01/31/20 07:30 75 15 99 Nasal Cannula 2.0 28 74 15 97 01/31/20 07:00 74 12 153/73 (99) 97 01/31/20 06:00 73 16 150/75 (100) 99 01/31/20 05:00 71 13 136/57 (83) 99 01/31/20 04:00 Nasal Cannula 2.0 01/31/20 04:00 97.9 72 13 148/67 (94) 100 01/31/20 03:49 75 15 100 Nasal Cannula 2.0 28 72 14 100 01/31/20 03:20 74 01/31/20 03:00 73 14 136/69 (91) 100 01/31/20 02:00 72 13 129/70 (89) 99 01/31/20 01:00 72 14 110/59 (76) 100 01/31/20 00:00 97.4 72 19 123/71 (88) 100 01/31/20 00:00 Nasal Cannula 2.0 01/30/20 23:25 72 16 100 Nasal Cannula 2.0 28 70 19 100 01/30/20 23:16 71 01/30/20 23:00 70 16 132/74 (93) 100 11/3/20 22:00 71 15 130/72 (91) 100 01/30/20 21:48 72 123/70 01/30/20 21:00 72 19 123/70 (87) 100 01/30/20 20:30 85 18 124/66 (85) 100 01/30/20 20:00 Nasal Cannula 2.0 01/30/20 20:00 98.3 74 19 131/70 (90) 100 01/30/20 19:44 69 01/30/20 19:30 70 19 120/70 (87) 100 01/30/20 19:25 78 16 100 Nasal Cannula 2.0 28 75 17 100 01/30/20 19:24 100 Nasal Cannula 2.0 28 01/30/20 19:00 75 19 112/76 (88) 100 01/30/20 18:00 132 12 107/54 (71) 100 01/30/20 17:00 124 18 101/62 (75) 100 01/30/20 16:09 115 22 100 Nasal Cannula 2.0 28 112 21 100 01/30/20 16:00 98.5 01/30/20 16:00 52 01/30/20 16:00 76 26 90/56 (67) 100 01/30/20 16:00 Nasal Cannula 2.0 01/30/20 15:00 44 19 83/47 (59) 100 01/30/20 14:00 70 22 107/64 (78) 100 01/30/20 13:00 98 23 83/50 (61) 100 01/30/20 12:04 75 01/30/20 12:00 Nasal Cannula 2.0 01/30/20 12:00 98.2 01/30/20 12:00 72 28 129/85 (100) 99 01/30/20 11:22 81 20 100 Nasal Cannula 2.0 28 78 25 98 01/30/20 11:00 75 25 113/69 (84) 100 01/30/20 10:49 83 120/70 01/30/20 10:00 100 29 120/70 (87) 100 Labs: Laboratory Tests 01/30/20 09:43: Arterial Blood pH 7.453H, Arterial Blood Partial Pressure CO2 29.7L, Arterial Blood Partial Pressure O2 64.9L, Arterial Blood HCO3 20.3L, Arterial Blood Oxygen Saturation 92.7L, Arterial Blood Base Excess -3.1L, Bryan Test Positive 01/30/20 12:05: POC Whole Blood Glucose 190H 01/30/20 23:18: POC Whole Blood Glucose 248H 01/31/20 04:00: White Blood Count 19.2H, Red Blood Count 2.52L, Hemoglobin 7.4L, Hematocrit 25.3L, Mean Corpuscular Volume 101H, Mean Corpuscular Hemoglobin 29.4, Mean Corpuscular Hemoglobin Concent 29.2L, Red Cell Distribution Width 15.9H, Platelet Count 448, Mean Platelet Volume 5.4L, Neutrophils (%) (Auto) , Lymphocytes (%) (Auto) , Monocytes (%) (Auto) , Eosinophils (%) (Auto) , Basophi ls (%) (Auto) , Differential Total Cells Counted 100, Neutrophils % (Manual) 89H , Lymphocytes % (Manual) 6L, Monocytes % (Manual) 4, Eosinophils % (Manual) 1, Basophils % (Manual) 0, Band Neutrophils 0, Platelet Estimate Adequate, Platelet Morphology Normal, Hypochromasia 1+, Anisocytosis 1+, Macrocytosis 1+, Sodium Level 139, Potassium Level 5.4H, Chloride Level 104, Carbon Dioxide Level 23, Anion Gap 12, Blood Urea Nitrogen 81H, Creatinine 2.3H, Estimat Glomerular Filtration Rate 26.3, Glucose Level 341H, Calcium Level 7.5L 01/31/20 05:59: POC Whole Blood Glucose 325H Objective: WDWN ill appearing reduced breath sounds bilaterally without rhonchi or wheeze [id number] without MRG NABS nontender no HSM no CCE nonfocal Micro: Microbiology Date/Time Source Procedure Growth Status 01/29/20 08:00 Sputum AFB Specimen Processing Tissue - Final Resulted 01/29/20 08:00 Sputum Acid Fast Bacilli Smear - Final Resulted 01/29/20 08:00 Sputum Acid Fast Bacilli Culture Pending Resulted 01/29/20 00:03 Rectum - Final NO CARBAPENEM-RESISTANT ENTEROBACTERI... Complete 01/29/20 00:03 Rectum VRE Culture - Final NO VANCOMYCIN RESISTANT ENTEROCOCCUS ... Complete 01/28/20 19:10 Nasopharynx SARS-CoV-2 RdRp Gene Assay - Final Complete 01/28/20 19:10 Blood Blood Culture - Preliminary Staphylococcus Aureus Resulted 01/28/20 18:50 Blood Blood Culture - Preliminary Staphylococcus Aureus Resulted Accucheck: 325 Germán Feliz MD Jan 31, 2020 09:38
--- NOTE | 2020-01-31 10:00 | NUR ---
NURSE NOTES: Patient stable at this time. No s/sx of pain or distress.
--- NOTE | 2020-01-31 11:30 | Infectious Diseases Prog Note ---
Assessment/Plan Assessment/Plan antibiotics : vancomycin iv, ceftriaxone A 1. cavitary pneumonia r/o TB sputum AFB negative x 1 2. staph aureus sepsis r/o endocarditis 3. diabetes mellitus 4. hypertension 5. COPD 6. renal failure 7. aortic stenosis P 1. d/c iv vancomycin, ceftriaxone 2. will follow up culture 3. continue isolation 4. sputum for AFB x 2 pending 5. start linezolid 6. consider PORFIRIO 7. cocci serology Subjective Constitutional: Denies: fever, chills Respiratory: Reports: shortness of breath; Denies: dry cough Gastrointestinal/Abdominal: Denies: nausea, vomiting, diarrhea Musculoskeletal: Denies: pain Allergies: Coded Allergies: No Known Allergies (Unverified , 07/30/15) Objective Last 24 Hour Vital Signs Date Time Temp Pulse Resp B/P (MAP) Pulse Ox O2 Delivery O2 Flow Rate FiO2 01/31/20 11:13 74 15 100 Room Air 21 74 15 100 01/31/20 11:00 75 16 152/64 (93) 99 01/31/20 10:00 73 15 140/60 (86) 100 01/31/20 09:20 97.0 01/31/20 09:00 74 18 144/62 (89) 44 01/31/20 08:00 Nasal Cannula 2.0 01/31/20 08:00 97.0 75 15 157/80 (105) 98 01/31/20 07:52 82 01/31/20 07:30 97 Nasal Cannula 2.0 28 01/31/20 07:30 75 15 99 Nasal Cannula 2.0 28 74 15 97 01/31/20 07:00 74 12 153/73 (99) 97 01/31/20 06:00 73 16 150/75 (100) 99 01/31/20 05:00 71 13 136/57 (83) 99 01/31/20 04:00 Nasal Cannula 2.0 01/31/20 04:00 97.9 72 13 148/67 (94) 100 01/31/20 03:49 75 15 100 Nasal Cannula 2.0 28 72 14 100 01/31/20 03:20 74 01/31/20 03:00 73 14 136/69 (91) 100 01/31/20 02:00 72 13 129/70 (89) 99 01/31/20 01:00 72 14 110/59 (76) 100 01/31/20 00:00 97.4 72 19 123/71 (88) 100 01/31/20 00:00 Nasal Cannula 2.0 01/30/20 23:25 72 16 100 Nasal Cannula 2.0 28 70 19 100 01/30/20 23:16 71 01/30/20 23:00 70 16 132/74 (93) 100 01/30/20 22:00 71 15 130/72 (91) 100 01/30/20 21:48 72 123/70 01/30/20 21:00 72 19 123/70 (87) 100 01/30/20 20:30 85 18 124/66 (85) 100 01/30/20 20:00 Nasal Cannula 2.0 01/30/20 20:00 98.3 74 19 131/70 (90) 100 01/30/20 19:44 69 01/30/20 19:30 70 19 120/70 (87) 100 01/30/20 19:25 78 16 100 Nasal Cannula 2.0 28 75 17 100 01/30/20 19:24 100 Nasal Cannula 2.0 28 01/30/20 19:00 75 19 112/76 (88) 100 01/30/20 18:00 132 12 107/54 (71) 100 01/30/20 17:00 124 18 101/62 (75) 100 01/30/20 16:09 115 22 100 Nasal Cannula 2.0 28 112 21 100 01/30/20 16:00 98.5 01/30/20 16:00 52 01/30/20 16:00 76 26 90/56 (67) 100 01/30/20 16:00 Nasal Cannula 2.0 01/30/20 15:00 44 19 83/47 (59) 100 01/30/20 14:00 70 22 107/64 (78) 100 01/30/20 13:00 98 23 83/50 (61) 100 01/30/20 12:04 75 01/30/20 12:00 Nasal Cannula 2.0 01/30/20 12:00 98.2 01/30/20 12:00 72 28 129/85 (100) 99 Height (Feet): 5 Height (Inches): 1.00 Weight (Pounds): 168 Respiratory/Chest: lungs clear Cardiovascular: normal rate, regular rhythm, no gallop/murmur Abdomen: soft, non tender Extremities: no edema Microbiology Date/Time Source Procedure Growth Status 01/29/20 08:00 Sputum AFB Specimen Processing Tissue - Final Resulted 01/29/20 08:00 Sputum Acid Fast Bacilli Smear - Final Resulted 01/29/20 08:00 Sputum Acid Fast Bacilli Culture Pending Resulted 01/29/20 00:03 Rectum - Final NO CARBAPENEM-RESISTANT ENTEROBACTERI... Complete 01/29/20 00:03 Rectum VRE Culture - Final NO VANCOMYCIN RESISTANT ENTEROCOCCUS ... Complete 01/28/20 19:10 Nasopharynx SARS-CoV-2 RdRp Gene Assay - Final Complete 01/28/20 19:10 Blood Blood Culture - Preliminary Staphylococcus Aureus Resulted 01/28/20 18:50 Blood Blood Culture - Preliminary Staphylococcus Aureus Resulted Laboratory Tests Test 01/30/20 12:05 01/30/20 23:18 01/31/20 04:00 01/31/20 05:59 POC Whole Blood Glucose 190 MG/DL (74-106) H 248 MG/DL (74-106) H 325 MG/DL (74-106) H White Blood Count 19.2 K/UL (4.8-10.8) H Red Blood Count 2.52 M/UL (4.20-5.40) L Hemoglobin 7.4 G/DL (12.0-16.0) L Hematocrit 25.3 % (37.0-47.0) L Mean Corpuscular Volume 101 FL (80-99) H Mean Corpuscular Hemoglobin 29.4 PG (27.0-31.0) Mean Corpuscular Hemoglobin Concent 29.2 G/DL (32.0-36.0) L Red Cell Distribution Width 15.9 % (11.6-14.8) H Platelet Count 448 K/UL (150-450) Mean Platelet Volume 5.4 FL (6.5-10.1) L Neutrophils (%) (Auto) % (45.0-75.0) Lymphocytes (%) (Auto) % (20.0-45.0) Monocytes (%) (Auto) % (1.0-10.0) Eosinophils (%) (Auto) % (0.0-3.0) Basophils (%) (Auto) % (0.0-2.0) Differential Total Cells Counted 100 Neutrophils % (Manual) 89 % (45-75) H Lymphocytes % (Manual) 6 % (20-45) L Monocytes % (Manual) 4 % (1-10) Eosinophils % (Manual) 1 % (0-3) Basophils % (Manual) 0 % (0-2) Band Neutrophils 0 % (0-8) Platelet Estimate Adequate Platelet Morphology Normal Hypochromasia 1+ Anisocytosis 1+ Macrocytosis 1+ Sodium Level 139 MMOL/L (136-145) Potassium Level 5.4 MMOL/L (3.5-5.1) H Chloride Level 104 MMOL/L (98-107) Carbon Dioxide Level 23 MMOL/L (21-32) Anion Gap 12 mmol/L (5-15) Blood Urea Nitrogen 81 mg/dL (7-18) H Creatinine 2.3 MG/DL (0.55-1.30) H Estimat Glomerular Filtration Rate 26.3 mL/min (>60) Glucose Level 341 MG/DL (74-106) H Calcium Level 7.5 MG/DL (8.5-10.1) L Test 01/31/20 09:30 Random Vancomycin Level 14.7 ug/mL Current Medications Medications (Trade) Dose Ordered Sig/Ivana Route PRN Reason Start Time Stop Time Status Last Admin Dose Admin Acetaminophen (Tylenol) 650 mg Q6H PRN ORAL MILD PAIN, FEVER 01/28/20 22:45 02/27/20 22:44 01/29/20 18:17 Acetaminophen/ Hydrocodone Bitart ([place] 10/325) 1 tab Q4H PRN ORAL breakthrough pain 01/30/20 10:43 02/06/20 10:42 01/30/20 10:50 Aspirin (ASA) 81 mg DAILY ORAL 01/29/20 09:00 03/14/20 08:59 01/30/20 08:34 Ceftriaxone Sodium 1 gm/ Dextrose 55 ml @ 110 mls/hr Q24H IVPB 01/29/20 09:00 02/05/20 08:59 01/31/20 08:50 Chlorhexidine Gluconate (Divina-Hex 2%) 1 applic DAILY@2000 TOPIC 01/29/20 20:00 04/28/20 19:59 01/30/20 20:54 Dextrose (Dextrose 50%) 25 ml Q30M PRN IV Hypoglycemia 01/28/20 22:45 04/27/20 22:44 Dextrose (Dextrose 50%) 50 ml Q30M PRN IV Hypoglycemia 01/28/20 22:45 04/27/20 22:44 Dextrose/Sodium Chloride 1,000 ml @ 50 mls/hr Q20H IV 01/30/20 18:45 02/29/20 18:44 01/30/20 19:43 Heparin Sodium (Porcine) (Heparin 5000 units/ml) 5,000 units EVERY 12 HOURS SUBQ 01/29/20 09:00 03/14/20 08:59 01/30/20 08:37 Hydralazine HCl (Apresoline) 10 mg Q6HR PRN IV SBP>180 01/28/20 22:45 04/27/20 22:44 01/30/20 08:35 Insulin Aspart (NovoLOG) Q6HR SUBQ 01/29/20 00:00 04/28/20 00:00 01/31/20 06:23 Ipratropium [place] (Atrovent) 500 mcg Q4HRT HHN 01/28/20 23:00 02/02/20 22:59 01/31/20 11:12 Methylprednisolone Sodium Succinate (Solu-MEDROL) 30 mg DAILY IVP 01/29/20 09:00 04/28/20 08:59 01/31/20 08:51 Metoprolol Tartrate (Lopressor) 25 mg Q12HR ORAL 01/30/20 21:00 04/29/20 20:59 01/30/20 21:48 Morphine Sulfate (Morphine Sulfate) 2 mg Q4H PRN IVP Severe Pain (Pain Scale 7-10) 01/29/20 22:30 02/05/20 22:29 01/31/20 08:50 Ondansetron HCl (Zofran) 4 mg Q6H PRN IVP Nausea & Vomiting 01/28/20 22:45 02/27/20 22:44 Vancomycin HCl (Vanco pharmacy to dose) 1 ea DAILY PRN MISC Per rx protocol 01/28/20 22:45 02/27/20 22:44 Vancomycin HCl 1 gm/Sodium Chloride 275 ml @ 183.708 mls/hr ONCE IVPB 01/31/20 13:00 01/31/20 15:00 Messi Lopez MD Jan 31, 2020 11:30
--- NOTE | 2020-01-31 12:49 | NUR ---
RD ASSESSMENT & RECOMMENDATIONS SEE CARE ACTIVITY FOR COMPLETE ASSESSMENT DAILY ESTIMATED NEEDS: Needs based on Sepsis, pulmonary/ 54.9kg abw 25-35 kcals/kg 4572-5077 total kcals 1-2 g protein/kg 55-110 g total protein 25-30 mL/kg 5550-3347 total fluid mLs NUTRITION DIAGNOSIS: * Altered nutrition related lab values R/T clinical status as evidenced by variable poc BGs (52-325), elev WBC (19.2 trend down), elev K (5.4) w/ elev BUN and creat. CURRENT DIET: CCHO MED PO DIET RECOMMENDATIONS: Poor po intake-> rec liberalized Regular diet ADDITIONAL RECOMMENDATIONS: * Monitor po intake/ rec CCHO MED w/ >50%intake * A1C for evaluation of glycemic control * Add NEPRO w/ meals (currently w/ elev K 5.4) * Calibrated bed scale wts * ICU status, consider non oral feeds w/ continued poor po intake
[2020-01-31] MEDS ORDERED: Vancomycin 1 GM in NS 275 ML IVPB SCH (13:00)
--- NOTE | 2020-01-31 13:00 | NUR ---
NURSE NOTES: BS elevated. D5NS bag off. Will notify
[2020-01-31] MEDS: D5NS 1,000 ML IV SCH (14:45)
--- NOTE | 2020-01-31 16:00 | NUR ---
NURSE NOTES: Patient BS elevated. DR. Feliz aware. Order received for NGT but patient is refusing. D5NS still being held. MD also aware that patient wants to discuss transfusion with family.
--- NOTE | 2020-01-31 19:00 | NUR ---
NURSE NOTES: Order received to d/ch solumedrol and reported BS of [address] Feliz.
--- NOTE | 2020-01-31 19:15 | NUR ---
NURSE HAND-OFF REPORT: Latest Vital Signs: Temperature 98.3 , Pulse 82 , B/P 185 /92 , Respiratory Rate 18 , O2 SAT 99 , Nasal Cannula, O2 Flow Rate 2.0 . Vital Sign Comment: Guarded EKG Rhythm: Sinus Rhythm Rhythm change?: N MD Notified?: - MD Response: Latest Pineda Fall Score: 50 Fall Risk: High Risk Safety Measures: Call light Within Reach, Bed Alarm Zone 1, Side Rails Side Rails x3, Bed position Low and Locked. Fall Precautions: Door Sign Report given to Barbara Polanco Patient is hypertensive and hyperglycemic. MD aware. Amlodipine given now.
--- NOTE | 2020-01-31 19:15 | NUR ---
NURSE NOTES: Received patient from JO-ANN Braun. Will continue plan of care.
--- NOTE | 2020-01-31 19:30 | NUR ---
NURSE NOTES: Patient is drowsy, alert and oriented x3. Currently receiving breathing treatment by RT; otherwise on room air and tolerating. nasal cannula PRN. Patient is hypertensive: 185/92 @ 1900. Norvasc one time given by AM RN; scheduled lopressor @ 2100 and hydralazine PRN. D5NS @ 50ml/hr has been held for hyperglycemia. Will request for other fluids. 2 unit PRBC order pending for consent. Airborne precautions noted for pending acid fast bacilli smear culture. Safety measures in place; side rails up, bed low, locked and alarm is on.
--- NOTE | 2020-01-31 19:32 | NUR ---
NURSE NOTES: Left message to Dr. Feliz regarding patient being hyperglycemic with the latest blood sugar 434. D5NS @ 50ml/hr held throughout the day. Patient has not had an appetite with poor nutritional intake. Recommend to change fluids. During initial assessment; asked patient about consent for blood transfusion. Patient still insist to discuss with family first but not at this time. Left cell phone within reach to call family.
--- NOTE | 2020-01-31 19:35 | NUR ---
NURSE NOTES: New order of NS @ 75ml/hr ordered. Will monitor blood sugar closely.
--- NOTE | 2020-01-31 19:45 | Consultation ---
DATE OF CONSULTATION: 01/31/2020 NEPHROLOGY CONSULTATION CONSULTING PHYSICIAN: Brigitte Robison MD. ATTENDING/REFERRING PHYSICIAN: Germán Feliz MD. REASON FOR CONSULTATION: Elevated BUN and creatinine. HISTORY OF PRESENT ILLNESS: This is a 59-year-old female with multiple medical problems, who was admitted with shortness of breath. I am asked to see the patient for elevation of BUN and creatinine. The patient was found to have cavitary lung lesion and she is being actively ruled out for a pulmonary TB. PAST MEDICAL HISTORY: 1. Type 2 diabetes mellitus. 2. COPD. 3. Gastritis. MEDICATIONS: Ceftriaxone IV, IV fluid D5 NS, linezolid IV, Tylenol p.r.n., baby aspirin, subcutaneous heparin, IV hydralazine p.r.n. elevated blood pressure, [place] p.r.n, insulin sliding scale, Atrovent inhalation, IV methylprednisolone, Lopressor q.12 hours, morphine p.r.n., Zofran p.r.n., and IV vancomycin pharmacy dosing, which was discontinued on 01/28/2020. ALLERGIES: No known allergies. FAMILY HISTORY: Unable to obtain. The patient is confused. SOCIAL HISTORY: Unable to obtain. The patient is confused. REVIEW OF SYSTEMS: Unable to obtain. The patient is confused. PHYSICAL EXAMINATION: GENERAL: This is an elderly female, who is in moderate respiratory distress. VITAL SIGNS: Blood pressure 176/80, pulse 80 and regular, respirations 24 and labored. O2 saturation 100% via nasal cannula at 2 liters/minute. HEENT: The head is normocephalic and atraumatic. Pupils are equal, round, and reactive to light and accommodation consensually. NECK: Supple. Trachea midline. There was no lymphadenopathy or thyromegaly. LUNGS: Bilateral rhonchi heard. HEART: Regular rate and rhythm without rubs, murmurs, or gallops. ABDOMEN: Soft and nontender. Bowel sounds were active. EXTREMITIES: Notable for 3+ bilateral leg edema. LABORATORY AND ANCILLARY DATA: Sodium 139, potassium 5.4, creatinine 2.3. INR 1.1. Urinalysis, specific gravity 1.020, urine protein 4+, sediment shows 20 to 30 rbc's. CBC - white count 19,200, hematocrit 25.3, and platelet count 448,000. IMAGING STUDIES: Chest CT, moderate diffuse patchy ground-glass opacities in both lungs with central distribution suggest pneumonia versus pulmonary edema. 2D echo, [id number] mitral regurgitation, moderate tricuspid regurgitation. ASSESSMENT: 1. Most likely chronic kidney disease with nephrotic range proteinuria, most likely due to diabetic nephropathy. 2. Type 2 diabetes mellitus. 3. COPD. 4. Gastritis. PLAN: 1. Monitor the patient's chemistry. 2. Avoid nephrotoxic medications. 3. Check renal ultrasound. Thank you, Dr. Feliz, for letting me participate in the care of this patient. Brigitte Robison M.D. DR: MAHI JOB#: [id number] CC: MIKE
[2020-01-31] MEDS: Dyna-Hex 2% Top Sol 2oz TOPIC SCH (20:33)
[2020-01-31] MEDS ORDERED: NS 275ml ONE (21:16)
[2020-01-31] MEDS ORDERED: Tubing IV Secondary IV ONE (21:16)
[2020-01-31] MEDS ORDERED: D5NS 1000ml IV ONE (21:16)
--- NOTE | 2020-01-31 21:23 | NUR ---
NURSE NOTES: Daughter Sandra Bernstein present at this time. Wishes to speak with MD Feliz in regards to mother care and prognosis. MD Feliz office number provided at this time. She would also like MD Feliz to call her in the morning. Will endorse during my charge nurse report.
--- NOTE | 2020-01-31 22:00 | NUR ---
NURSE NOTES: Epoetin held for now until BP decreases. BP:149/72 Blood transfusion held for now pending consent and next of kin to speak with Dr. Feliz.
--- NOTE | 2020-01-31 22:46 | Cardiology Progress Note ---
Subjective DATE OF SERVICE: Jan 31, 2020 Still with congestion and SOB. No recurrent CP, but troponin elevation to 4.65 started yesterday. 2D Echo reviewed - EF 45%, severe pulmonary hypertension, mild-moderate AV stenosis with ESTHER 1.5cm2 Objective Last 24 Hour Vital Signs Date Time Temp Pulse Resp B/P (MAP) Pulse Ox O2 Delivery O2 Flow Rate FiO2 01/31/20 21:00 87 21 197/76 (116) 98 01/31/20 20:33 79 183/75 01/31/20 20:00 96.5 80 18 183/80 (114) 99 01/31/20 20:00 Room Air 01/31/20 19:17 82 185/92 01/31/20 19:16 83 01/31/20 19:12 84 18 100 Room Air 21 01/31/20 19:02 99 Room Air 21 01/31/20 19:02 85 21 99 Room Air 21 01/31/20 19:00 81 18 185/92 (123) 100 01/31/20 18:00 78 15 156/78 (104) 100 01/31/20 17:00 86 24 179/75 (109) 100 01/31/20 16:00 Nasal Cannula 2.0 01/31/20 16:00 98.3 91 19 131/106 (114) 01/31/20 16:00 82 01/31/20 15:00 81 16 149/81 (103) 100 01/31/20 14:07 176/80 01/31/20 14:00 79 13 176/80 (112) 100 01/31/20 13:00 74 9 155/74 (101) 99 01/31/20 12:00 98.2 77 16 146/62 (90) 99 01/31/20 12:00 Nasal Cannula 2.0 01/31/20 12:00 85 01/31/20 11:13 74 15 100 Room Air 21 74 15 100 01/31/20 11:00 75 16 152/64 (93) 99 01/31/20 10:00 73 15 140/60 (86) 100 01/31/20 09:20 97.0 01/31/20 09:00 74 18 144/62 (89) 44 01/31/20 08:00 Nasal Cannula 2.0 01/31/20 08:00 97.0 75 15 157/80 (105) 98 01/31/20 07:52 82 01/31/20 07:30 97 Nasal Cannula 2.0 28 01/31/20 07:30 75 15 99 Nasal Cannula 2.0 28 74 15 97 01/31/20 07:00 74 12 153/73 (99) 97 01/31/20 06:00 73 16 150/75 (100) 99 01/31/20 05:00 71 13 136/57 (83) 99 01/31/20 04:00 Nasal Cannula 2.0 01/31/20 04:00 97.9 72 13 148/67 (94) 100 01/31/20 03:49 75 15 100 Nasal Cannula 2.0 28 72 14 100 01/31/20 03:20 74 01/31/20 03:00 73 14 136/69 (91) 100 01/31/20 02:00 72 13 129/70 (89) 99 01/31/20 01:00 72 14 110/59 (76) 100 01/31/20 00:00 97.4 72 19 123/71 (88) 100 01/31/20 00:00 Nasal Cannula 2.0 01/30/20 23:25 72 16 100 Nasal Cannula 2.0 28 70 19 100 01/30/20 23:16 71 01/30/20 23:00 70 16 132/74 (93) 100 HEENT: normal ENT inspection RHYTHM: NSR LUNGS: bilat. rhonchi and rales CARDIAC: systolic murmur - 1/6 at base ABDOMEN: normal bowel sounds, non tender, soft EXTREMITIES: normal range of motion, non-pitting Laboratory Tests Test 01/30/20 23:18 01/31/20 04:00 01/31/20 05:59 01/31/20 09:30 POC Whole Blood Glucose 248 MG/DL (74-106) H 325 MG/DL (74-106) H White Blood Count 19.2 K/UL (4.8-10.8) H Red Blood Count 2.52 M/UL (4.20-5.40) L Hemoglobin 7.4 G/DL (12.0-16.0) L Hematocrit 25.3 % (37.0-47.0) L Mean Corpuscular Volume 101 FL (80-99) H Mean Corpuscular Hemoglobin 29.4 PG (27.0-31.0) Mean Corpuscular Hemoglobin Concent 29.2 G/DL (32.0-36.0) L Red Cell Distribution Width 15.9 % (11.6-14.8) H Platelet Count 448 K/UL (150-450) Mean Platelet Volume 5.4 FL (6.5-10.1) L Neutrophils (%) (Auto) % (45.0-75.0) Lymphocytes (%) (Auto) % (20.0-45.0) Monocytes (%) (Auto) % (1.0-10.0) Eosinophils (%) (Auto) % (0.0-3.0) Basophils (%) (Auto) % (0.0-2.0) Differential Total Cells Counted 100 Neutrophils % (Manual) 89 % (45-75) H Lymphocytes % (Manual) 6 % (20-45) L Monocytes % (Manual) 4 % (1-10) Eosinophils % (Manual) 1 % (0-3) Basophils % (Manual) 0 % (0-2) Band Neutrophils 0 % (0-8) Platelet Estimate Adequate Platelet Morphology Normal Hypochromasia 1+ Anisocytosis 1+ Macrocytosis 1+ Sodium Level 139 MMOL/L (136-145) Potassium Level 5.4 MMOL/L (3.5-5.1) H Chloride Level 104 MMOL/L (98-107) Carbon Dioxide Level 23 MMOL/L (21-32) Anion Gap 12 mmol/L (5-15) Blood Urea Nitrogen 81 mg/dL (7-18) H Creatinine 2.3 MG/DL (0.55-1.30) H Estimat Glomerular Filtration Rate 26.3 mL/min (>60) Glucose Level 341 MG/DL (74-106) H Calcium Level 7.5 MG/DL (8.5-10.1) L Random Vancomycin Level 14.7 ug/mL Coccidioides Antibody (Comp Fix) Pending Microbiology Date/Time Source Procedure Growth Status 01/30/20 02:20 Sputum AFB Specimen Processing Tissue - Final Resulted 01/30/20 02:20 Sputum Acid Fast Bacilli Smear - Final Resulted 01/30/20 02:20 Sputum Acid Fast Bacilli Culture Pending Resulted 01/29/20 18:30 Sputum AFB Specimen Processing Tissue - Final Resulted 01/29/20 18:30 Sputum Acid Fast Bacilli Smear - Final Resulted 01/29/20 18:30 Sputum Acid Fast Bacilli Culture Pending Resulted 01/29/20 08:00 Sputum AFB Specimen Processing Tissue - Final Resulted 01/29/20 08:00 Sputum Acid Fast Bacilli Smear - Final Resulted 01/29/20 08:00 Sputum Acid Fast Bacilli Culture Pending Resulted 01/29/20 00:03 Rectum - Final NO CARBAPENEM-RESISTANT ENTEROBACTERI... Complete 01/29/20 00:03 Rectum VRE Culture - Final NO VANCOMYCIN RESISTANT ENTEROCOCCUS ... Complete 01/29/20 00:03 Nasal Nares MRSA Culture - Final Staphylococcus Aureus - Mrsa Complete Assessment/Plan Assessment/Plan Acute CA Lung mass - prior benign biopsy Pneumonia with cavitation Mild-mod degenerative aortic stenosis Acute renal failure Pulmonary hypertension (est PAsyst 58mmHg) Hypertension with labile BP range. Anemia Orders updated Discussed with ICU staff Evans Trinidad MD Jan 31, 2020 22:46
[2020-01-31] MEDS: Epoetin Alfa-EPBX(ESRD on dialysis)4000 units/ml vial SUBQ SCH (22:54)
--- NOTE | 2020-01-31 22:58 | NUR ---
NURSE NOTES: EKG tracing done; shows normal sinus rhythm. Results filed in chart.
[2020-02-01] VITALS (26 sets, daily range): BP systolic 118–202; BP diastolic 51–112
--- NOTE | 2020-02-01 | NUR ---
NURSE NOTES: Bed bath given, linens changes, repositioned. Patient is more comfortable and resting well.
--- NOTE | 2020-02-01 00:14 | Consultation ---
DATE OF CONSULTATION: 01/30/2020 CARDIOLOGY CONSULTATION CONSULTING PHYSICIAN: Evans Trinidad MD REFERRING PHYSICIAN: Germán Feliz MD REASON FOR CONSULTATION: Chest pain and tachycardias. HISTORY OF PRESENT ILLNESS: This 59-year-old female was admitted to the hospital yesterday with respiratory distress. She has a history of a lung mass that was biopsied and found to be benign. She apparently has some signs of pneumonia. She also has significant COPD. She was admitted to the intensive care unit and started on antimicrobials and respiratory treatments. She developed chest pain today that resolved spontaneously. I have been asked to address her cardiovascular status. PAST MEDICAL HISTORY: 1. Hypertension. 2. COPD. 3. Lung mass. 4. Type 2 diabetes mellitus. 5. Paroxysmal supraventricular tachycardias. ALLERGIES: None. OUTPATIENT MEDICATIONS: Reviewed. FAMILY HISTORY: Noncontributory. SOCIAL HISTORY: Positive for smoking. PHYSICAL EXAMINATION: VITAL SIGNS: Temperature max 103, blood pressure up to 201/95, early this morning heart rate 112, respiratory 23, now afebrile. LUNGS: Some accessory muscle use. Bilateral rhonchi. CARDIAC: Regular rhythm. Rapid rate. Normal S1, S2. A 1/6 systolic murmur at base. ABDOMEN: Soft. EXTREMITIES: Trace edema. LABORATORY DATA: EKG on admission sinus tachycardia. Troponin on early this morning increased to 4.6. BUN 58, creatinine 2, potassium 4.8. White count 23.7, hemoglobin 7.6. IMPRESSION: 1. Pneumonia. 2. Respiratory failure. 3. Severe anemia. 4. Acute myocardial infarction. 5. COPD. 6. Bronchospasm. 7. Lung mass. 8. Hypertension, uncontrolled. PLAN: 1. IV antihypertensives. 2. Aspirin therapy. 3. Titrate antihypertensives. 4. Antimicrobials. 5. Respiratory hygiene. 6. Echocardiogram. 7. Follow up troponins. 8. Avoid beta-rusty for now due to severe bronchospasms. 9. DVT prophylaxis. 10. Monitor hemoglobin. Consider packed red blood cell transfusion for further drop. 11. Oxygenate and ventilate adequately and monitor acid-base parameters. Evans Trinidad M.D. : DK/SD JOB#: [id number] CC:
--- NOTE | 2020-02-01 02:00 | NUR ---
NURSE NOTES: Patient repositioned. Water given, all needs are met.
[2020-02-01] MEDS: Ipratropium 0.02% Inh Soln 2.5ml UD HHN SCH ×6 (03:24→22:46)
[2020-02-01] MEDS: Morphine Sulfate 2mg/ml Inj(IV/IM USE ONLY) IVP PRN (03:32)
--- NOTE | 2020-02-01 04:00 | NUR ---
NURSE NOTES: Blood drawn via right femoral TLC and sent to lab for AM results.
[2020-02-01 04:35] LABS: HEMATOCRIT 24.7 % (37.0-47.0); HEMOGLOBIN 7.4 G/DL (12.0-16.0); MEAN CORPUSCULAR VOLUME 98 FL (80-99); PLATELET COUNT 428 K/UL (150-450); RED BLOOD COUNT 2.53 M/UL (4.20-5.40); RED CELL DISTRIBUTION WIDTH 15.2 % (11.6-14.8); WHITE BLOOD COUNT 17.9 K/UL (4.8-10.8)
[2020-02-01 05:17] LABS: CALCIUM 7.5 MG/DL (8.5-10.1); CREATININE 1.4 MG/DL (0.55-1.30); PHOSPHORUS 2.7 MG/DL (2.5-4.9); POTASSIUM 4.6 MMOL/L (3.5-5.1)
--- NOTE | 2020-02-01 06:00 | NUR ---
NURSE NOTES: Blood sugar 379, 12 units PRBC given. NS continues to run @ 75ml/hr. Pt repositioned, she is comfortable. Daughter will be in this morning to sign blood transfusion consent.
[2020-02-01] MEDS: NovoLOG Insulin Flexpen SUBQ SCH ×4 (06:08→23:21)
--- NOTE | 2020-02-01 07:12 | NUR ---
NURSE HAND-OFF REPORT: Latest Vital Signs: Temperature 98.0 , Pulse 75 , B/P 181 /83 , Respiratory Rate 23 , O2 SAT 100 , Room Air, O2 Flow Rate 2.0 . Vital Sign Comment: EKG Rhythm: Sinus Rhythm Rhythm change?: N MD Notified?: - MD Response: Latest Pineda Fall Score: 50 Fall Risk: High Risk Safety Measures: Call light Within Reach, Bed Alarm Zone 1, Side Rails Side Rails x3, Bed position Low and Locked. Fall Precautions: Door Sign Report given to .
--- NOTE | 2020-02-01 07:13 | NUR ---
NURSE NOTES: Received patient from Barbara BUSCH. Patient is awake, alert and oriented x2-x3. Sinus Rhythm on the heart monitor, HR 75. Receiving oxygen via room air, O2 saturation at 93%. IV site is Right EJ 18g patent and intact, Right Femoral TLC intact and receiving NS at 75cc/hr. Flores catheter is intact and draining. Bed is locked, placed in lowest position, side rails up x3, bed alarm on, head of bed elevated, call light within reach. Will continue to monitor.
--- NOTE | 2020-02-01 07:46 | NUR ---
NURSE NOTES: Patient's blood pressure read 201/84, on reassessment blood pressure read 193/75. Prescribed PRN Hydralazine 10mg given via IV.
--- NOTE | 2020-02-01 07:59 | NUR ---
NURSE NOTES: Patient seen and assessed by Dr. Feliz.
[2020-02-01] MEDS: Aspirin Baby 81mg ORAL SCH (08:05)
[2020-02-01] MEDS: HYDROcodone/Acetamin 10/325 tab ORAL PRN ×2 (08:06→18:11)
[2020-02-01] MEDS: Nitroglycerin Subl 0.4mg tab SL PRN ×3 (08:21→08:32)
--- NOTE | 2020-02-01 08:24 | Critical Care Progress Note ---
Assessment/Plan Assessment/Plan IMPRESSION acute respiratory failure leukocytosis sepsis ARF toxic met encephalopathy COPD DM poor control cavitary lesion groundglass infiltrates NSTEMI severe PCM PLAN ICU care BIPAP not needed currently off and good oxygen saturations await AFB antibiotics ID noted PO with caution AFB x1 negative; COVID negative cardiology follow up nitro PRN titrate BP meds medications/laboratory data/nursing notes/ICU care reviewed in detail note reviewed and edited care discussed with RN and RT ICU time spent >40 minutes Critical Care - Subjective Interval Events: d/w daughter reviewed results Condition: critical EKG Rhythm: Sinus Rhythm I&O: Intake and Output 01/31/20 02/01/20 19:00 07:00 Intake Total 655 ml 1583.75 ml Output Total 1030 ml 1095 ml Balance -375 ml 488.75 ml Intake Oral 0 ml 500 ml IV Total 655 ml 1083.75 ml Output Urine Total 1030 ml 1095 ml # Bowel Movements 1 2 Critical Care - Objective Last 24 Hour Vital Signs Date Time Temp Pulse Resp B/P (MAP) Pulse Ox O2 Delivery O2 Flow Rate FiO2 02/01/20 08:21 191/82 02/01/20 07:38 193/75 02/01/20 07:03 75 23 181/83 (115) 100 02/01/20 07:00 72 13 202/73 (116) 100 02/01/20 07:00 100 Room Air 21 02/01/20 07:00 76 16 100 Room Air 21 73 16 100 02/01/20 06:00 73 13 175/65 (101) 100 02/01/20 05:00 70 14 171/75 (107) 100 02/01/20 04:00 Room Air 02/01/20 04:00 98.0 69 14 170/63 (98) 94 02/01/20 03:34 71 18 100 Room Air 21 02/01/20 03:33 71 02/01/20 03:24 70 17 99 Room Air 21 02/01/20 03:00 71 14 180/79 (112) 100 02/01/20 02:00 70 18 176/91 (119) 99 02/01/20 01:00 70 13 173/68 (103) 99 02/01/20 00:00 Room Air 02/01/20 00:00 97.9 77 14 159/77 (104) 92 01/31/20 23:13 74 16 100 Room Air 21 01/31/20 23:09 68 01/31/20 23:02 71 14 99 Room Air 21 01/31/20 23:00 72 17 170/73 (105) 97 01/31/20 22:32 74 18 149/72 (97) 99 01/31/20 22:00 75 19 172/75 (107) 100 01/31/20 21:00 87 21 197/76 (116) 98 01/31/20 20:33 79 183/75 01/31/20 20:00 96.5 80 18 183/80 (114) 99 01/31/20 20:00 Room Air 01/31/20 19:17 82 185/92 01/31/20 19:16 83 01/31/20 19:12 84 18 100 Room Air 21 01/31/20 19:02 99 Room Air 21 01/31/20 19:02 85 21 99 Room Air 21 01/31/20 19:00 81 18 185/92 (123) 100 01/31/20 18:00 78 15 156/78 (104) 100 01/31/20 17:00 86 24 179/75 (109) 100 01/31/20 16:00 Nasal Cannula 2.0 01/31/20 16:00 98.3 91 19 131/106 (114) 01/31/20 16:00 82 01/31/20 15:00 81 16 149/81 (103) 100 01/31/20 14:07 176/80 01/31/20 14:00 79 13 176/80 (112) 100 01/31/20 13:00 74 9 155/74 (101) 99 01/31/20 12:00 98.2 77 16 146/62 (90) 99 01/31/20 12:00 Nasal Cannula 2.0 01/31/20 12:00 85 01/31/20 11:13 74 15 100 Room Air 21 74 15 100 01/31/20 11:00 75 16 152/64 (93) 99 01/31/20 10:00 73 15 140/60 (86) 100 01/31/20 09:20 97.0 01/31/20 09:00 74 18 144/62 (89) 44 Labs: Labs Test 01/29/20 08:29 01/29/20 13:26 01/30/20 00:28 01/30/20 03:37 Arterial Blood pH 7.284 (7.350-7.450) 7.368 (7.350-7.450) Arterial Blood Partial Pressure CO2 44.4 mmHg (35.0-45.0) 46.0 mmHg (35.0-45.0) Arterial Blood Partial Pressure O2 100.2 mmHg (75.0-100.0) 104.4 mmHg (75.0-100.0) Arterial Blood HCO3 20.6 mmol/L (22.0-26.0) 25.9 mmol/L (22.0-26.0) Arterial Blood Oxygen Saturation 97.1 % (95-100) 96.6 % (95-100) Arterial Blood Base Excess -5.7 (-2-2) 0.4 (-2-2) Bryan Test Positive Positive POC Whole Blood Glucose 351 MG/DL (74-106) 275 MG/DL (74-106) Test 01/30/20 04:10 01/30/20 05:19 01/30/20 09:43 01/30/20 12:05 White Blood Count 23.7 K/UL (4.8-10.8) Red Blood Count 2.52 M/UL (4.20-5.40) Hemoglobin 7.6 G/DL (12.0-16.0) Hematocrit 25.2 % (37.0-47.0) Mean Corpuscular Volume 100 FL (80-99) Mean Corpuscular Hemoglobin 30.2 PG (27.0-31.0) Mean Corpuscular Hemoglobin Concent 30.2 G/DL (32.0-36.0) Red Cell Distribution Width 15.6 % (11.6-14.8) Platelet Count 558 K/UL (150-450) Mean Platelet Volume 5.5 FL (6.5-10.1) Neutrophils (%) (Auto) % (45.0-75.0) Lymphocytes (%) (Auto) % (20.0-45.0) Monocytes (%) (Auto) % (1.0-10.0) Eosinophils (%) (Auto) % (0.0-3.0) Basophils (%) (Auto) % (0.0-2.0) Differential Total Cells Counted 100 Neutrophils % (Manual) 92 % (45-75) Lymphocytes % (Manual) 5 % (20-45) Monocytes % (Manual) 0 % (1-10) Eosinophils % (Manual) 0 % (0-3) Basophils % (Manual) 0 % (0-2) Band Neutrophils 3 % (0-8) Platelet Estimate Increased Platelet Morphology Normal Hypochromasia 1+ Anisocytosis 1+ Macrocytosis 1+ Sodium Level 140 MMOL/L (136-145) Potassium Level 4.8 MMOL/L (3.5-5.1) Chloride Level 104 MMOL/L (98-107) Carbon Dioxide Level 22 MMOL/L (21-32) Anion Gap 14 mmol/L (5-15) Blood Urea Nitrogen 58 mg/dL (7-18) Creatinine 2.0 MG/DL (0.55-1.30) Estimat Glomerular Filtration Rate 30.9 mL/min (>60) Glucose Level 254 MG/DL (74-106) Calcium Level 7.3 MG/DL (8.5-10.1) Troponin I 4.698 ng/mL (0.000-0.056) Arterial Blood pH 7.453 (7.350-7.450) Arterial Blood Partial Pressure CO2 29.7 mmHg (35.0-45.0) Arterial Blood Partial Pressure O2 64.9 mmHg (75.0-100.0) Arterial Blood HCO3 20.3 mmol/L (22.0-26.0) Arterial Blood Oxygen Saturation 92.7 % (95-100) Arterial Blood Base Excess -3.1 (-2-2) Bryan Test Positive POC Whole Blood Glucose 190 MG/DL (74-106) Test 01/30/20 19:12 01/30/20 19:13 01/30/20 19:28 01/30/20 19:49 POC Whole Blood Glucose 52 MG/DL (74-106) 56 MG/DL (74-106) Test 01/30/20 20:08 01/30/20 23:18 01/31/20 04:00 01/31/20 05:59 POC Whole Blood Glucose 171 MG/DL (74-106) 248 MG/DL (74-106) 325 MG/DL (74-106) White Blood Count 19.2 K/UL (4.8-10.8) Red Blood Count 2.52 M/UL (4.20-5.40) Hemoglobin 7.4 G/DL (12.0-16.0) Hematocrit 25.3 % (37.0-47.0) Mean Corpuscular Volume 101 FL (80-99) Mean Corpuscular Hemoglobin 29.4 PG (27.0-31.0) Mean Corpuscular Hemoglobin Concent 29.2 G/DL (32.0-36.0) Red Cell Distribution Width 15.9 % (11.6-14.8) Platelet Count 448 K/UL (150-450) Mean Platelet Volume 5.4 FL (6.5-10.1) Neutrophils (%) (Auto) % (45.0-75.0) Lymphocytes (%) (Auto) % (20.0-45.0) Monocytes (%) (Auto) % (1.0-10.0) Eosinophils (%) (Auto) % (0.0-3.0) Basophils (%) (Auto) % (0.0-2.0) Differential Total Cells Counted 100 Neutrophils % (Manual) 89 % (45-75) Lymphocytes % (Manual) 6 % (20-45) Monocytes % (Manual) 4 % (1-10) Eosinophils % (Manual) 1 % (0-3) Basophils % (Manual) 0 % (0-2) Band Neutrophils 0 % (0-8) Platelet Estimate Adequate Platelet Morphology Normal Hypochromasia 1+ Anisocytosis 1+ Macrocytosis 1+ Sodium Level 139 MMOL/L (136-145) Potassium Level 5.4 MMOL/L (3.5-5.1) Chloride Level 104 MMOL/L (98-107) Carbon Dioxide Level 23 MMOL/L (21-32) Anion Gap 12 mmol/L (5-15) Blood Urea Nitrogen 81 mg/dL (7-18) Creatinine 2.3 MG/DL (0.55-1.30) Estimat Glomerular Filtration Rate 26.3 mL/min (>60) Glucose Level 341 MG/DL (74-106) Calcium Level 7.5 MG/DL (8.5-10.1) Test 01/31/20 09:30 01/31/20 17:18 01/31/20 18:33 01/31/20 22:35 Random Vancomycin Level 14.7 ug/mL POC Whole Blood Glucose 479 MG/DL (74-106) 434 MG/DL (74-106) Troponin I 2.073 ng/mL (0.000-0.056) Test 01/31/20 23:20 02/01/20 04:00 White Blood Count 17.9 K/UL (4.8-10.8) Red Blood Count 2.53 M/UL (4.20-5.40) Hemoglobin 7.4 G/DL (12.0-16.0) Hematocrit 24.7 % (37.0-47.0) Mean Corpuscular Volume 98 FL (80-99) Mean Corpuscular Hemoglobin 29.1 PG (27.0-31.0) Mean Corpuscular Hemoglobin Concent 29.8 G/DL (32.0-36.0) Red Cell Distribution Width 15.2 % (11.6-14.8) Platelet Count 428 K/UL (150-450) Mean Platelet Volume 5.6 FL (6.5-10.1) Neutrophils (%) (Auto) % (45.0-75.0) Lymphocytes (%) (Auto) % (20.0-45.0) Monocytes (%) (Auto) % (1.0-10.0) Eosinophils (%) (Auto) % (0.0-3.0) Basophils (%) (Auto) % (0.0-2.0) Sodium Level 140 MMOL/L (136-145) Potassium Level 4.6 MMOL/L (3.5-5.1) Chloride Level 106 MMOL/L (98-107) Carbon Dioxide Level 27 MMOL/L (21-32) Anion Gap 7 mmol/L (5-15) Blood Urea Nitrogen 75 mg/dL (7-18) Creatinine 1.4 MG/DL (0.55-1.30) Estimat Glomerular Filtration Rate 46.5 mL/min (>60) Glucose Level 392 MG/DL (74-106) Calcium Level 7.5 MG/DL (8.5-10.1) Phosphorus Level 2.7 MG/DL (2.5-4.9) Objective: WDWN ill appearing reduced breath sounds bilaterally without rhonchi or wheeze [id number] without MRG NABS nontender no HSM no CCE nonfocal Micro: Microbiology Date/Time Source Procedure Growth Status 01/30/20 12:00 Nasopharynx Coronavirus COVID-19 PCR ([facility]) - Final Complete 01/30/20 02:20 Sputum AFB Specimen Processing Tissue - Final Resulted 01/30/20 02:20 Sputum Acid Fast Bacilli Smear - Final Resulted 01/30/20 02:20 Sputum Acid Fast Bacilli Culture Pending Resulted 01/29/20 18:30 Sputum AFB Specimen Processing Tissue - Final Resulted 01/29/20 18:30 Sputum Acid Fast Bacilli Smear - Final Resulted 01/29/20 18:30 Sputum Acid Fast Bacilli Culture Pending Resulted Accucheck: 379 Germán Feliz MD Feb 01, 2020 08:24
--- NOTE | 2020-02-01 08:41 | NUR ---
NURSE NOTES: Patient was complaining of chest pain that radiates to the left shoulder. 3 doses of Nitroglycerin sublingual was given in 5 minute intervals apart. After 3 doses patient stated that chest pain and shoulder pain is "more improved." PRN Zofran was also given to patient for nausea and gave patient a basin at bedside.
[2020-02-01] MEDS: Heparin 5000 units/ml inj SUBQ SCH ×2 (09:00→20:00)
--- NOTE | 2020-02-01 09:17 | NUR ---
CASE MANAGEMENT:REVIEW 01/31/20 SI;SEPSIS. JC. 98.3 86 24 176/80 100% 2L NC WBC 19.2 H/H 7.4/24.7 K+ 5.4 BUN 81 CR 2.3 BG 479 IS;IVF NS @ 75 ML/HR ROCEPHIN IV IV SOLU-MEDROL ICU STATUS
[2020-02-01] MEDS: Metoprolol Tartrate 12.5mg TAB ORAL SCH ×2 (09:41→20:17)
[2020-02-01] MEDS: Levemir Flexpen SUBQ SCH ×2 (09:49→18:12)
--- NOTE | 2020-02-01 10:45 | Infectious Diseases Prog Note ---
Assessment/Plan Assessment/Plan A 1. cavitary pneumonia sputum AFB negative x 3 2. staph aureus (MRSA) sepsis r/o endocarditis 3. diabetes mellitus 4. hypertension 5. COPD 6. renal failure 7. aortic stenosis 8. Anemia 9. CHF, EF=40-45% P 1. Discontinue isolation 2. Continue linezolid 3. consider PORFIRIO 4. cocci serology 5. Case was D/W daughter & RN Subjective ROS Limited/Unobtainable: Yes Constitutional: Denies: fever Respiratory: Reports: productive cough Allergies: Coded Allergies: No Known Allergies (Unverified , 07/30/15) Objective Last 24 Hour Vital Signs Date Time Temp Pulse Resp B/P (MAP) Pulse Ox O2 Delivery O2 Flow Rate FiO2 02/01/20 10:00 67 13 131/67 (88) 91 02/01/20 09:41 70 136/81 02/01/20 09:41 70 136/81 02/01/20 09:00 84 14 149/54 (85) 99 02/01/20 08:32 173/84 02/01/20 08:30 90 23 173/84 (113) 94 02/01/20 08:26 191/82 02/01/20 08:21 191/82 02/01/20 08:00 Room Air 02/01/20 08:00 70 02/01/20 08:00 97.4 81 17 191/82 (118) 100 02/01/20 07:38 193/75 02/01/20 07:03 75 23 181/83 (115) 100 02/01/20 07:00 72 13 202/73 (116) 100 02/01/20 07:00 100 Room Air 21 02/01/20 07:00 76 16 100 Room Air 21 73 16 100 02/01/20 06:00 73 13 175/65 (101) 100 02/01/20 05:00 70 14 171/75 (107) 100 02/01/20 04:00 Room Air 02/01/20 04:00 98.0 69 14 170/63 (98) 94 02/01/20 03:34 71 18 100 Room Air 21 02/01/20 03:33 71 02/01/20 03:24 70 17 99 Room Air 21 02/01/20 03:00 71 14 180/79 (112) 100 02/01/20 02:00 70 18 176/91 (119) 99 02/01/20 01:00 70 13 173/68 (103) 99 02/01/20 00:00 Room Air 02/01/20 00:00 97.9 77 14 159/77 (104) 92 01/31/20 23:13 74 16 100 Room Air 21 01/31/20 23:09 68 01/31/20 23:02 71 14 99 Room Air 21 01/31/20 23:00 72 17 170/73 (105) 97 01/31/20 22:32 74 18 149/72 (97) 99 01/31/20 22:00 75 19 172/75 (107) 100 01/31/20 21:00 87 21 197/76 (116) 98 01/31/20 20:33 79 183/75 01/31/20 20:00 96.5 80 18 183/80 (114) 99 01/31/20 20:00 Room Air 01/31/20 19:17 82 185/92 01/31/20 19:16 83 01/31/20 19:12 84 18 100 Room Air 21 01/31/20 19:02 99 Room Air 21 01/31/20 19:02 85 21 99 Room Air 21 01/31/20 19:00 81 18 185/92 (123) 100 01/31/20 18:00 78 15 156/78 (104) 100 01/31/20 17:00 86 24 179/75 (109) 100 01/31/20 16:00 Nasal Cannula 2.0 01/31/20 16:00 98.3 91 19 131/106 (114) 01/31/20 16:00 82 01/31/20 15:00 81 16 149/81 (103) 100 01/31/20 14:07 176/80 01/31/20 14:00 79 13 176/80 (112) 100 01/31/20 13:00 74 9 155/74 (101) 99 01/31/20 12:00 98.2 77 16 146/62 (90) 99 01/31/20 12:00 Nasal Cannula 2.0 01/31/20 12:00 85 01/31/20 11:13 74 15 100 Room Air 21 74 15 100 01/31/20 11:00 75 16 152/64 (93) 99 Height (Feet): 5 Height (Inches): 1.00 Weight (Pounds): 168 General Appearance: no acute distress HEENT: mucous membranes moist Respiratory/Chest: lungs clear, other - oxygen by nasal cannula Cardiovascular: tachycardia Abdomen: soft, non tender Neurologic/Psychiatric: alert, oriented x 3, responsive Microbiology Date/Time Source Procedure Growth Status 01/30/20 12:00 Nasopharynx Coronavirus COVID-19 PCR ([facility]) - Final Complete 01/30/20 02:20 Sputum AFB Specimen Processing Tissue - Final Resulted 01/30/20 02:20 Sputum Acid Fast Bacilli Smear - Final Resulted 01/30/20 02:20 Sputum Acid Fast Bacilli Culture Pending Resulted 01/29/20 18:30 Sputum AFB Specimen Processing Tissue - Final Resulted 01/29/20 18:30 Sputum Acid Fast Bacilli Smear - Final Resulted 01/29/20 18:30 Sputum Acid Fast Bacilli Culture Pending Resulted Laboratory Tests Test 01/31/20 17:18 01/31/20 18:33 01/31/20 22:35 01/31/20 23:20 POC Whole Blood Glucose 479 MG/DL (74-106) H 434 MG/DL (74-106) H Pending Troponin I 2.073 ng/mL (0.000-0.056) Test 02/01/20 04:00 White Blood Count 17.9 K/UL (4.8-10.8) H Red Blood Count 2.53 M/UL (4.20-5.40) L Hemoglobin 7.4 G/DL (12.0-16.0) L Hematocrit 24.7 % (37.0-47.0) L Mean Corpuscular Volume 98 FL (80-99) Mean Corpuscular Hemoglobin 29.1 PG (27.0-31.0) Mean Corpuscular Hemoglobin Concent 29.8 G/DL (32.0-36.0) L Red Cell Distribution Width 15.2 % (11.6-14.8) H Platelet Count 428 K/UL (150-450) Mean Platelet Volume 5.6 FL (6.5-10.1) L Neutrophils (%) (Auto) % (45.0-75.0) Lymphocytes (%) (Auto) % (20.0-45.0) Monocytes (%) (Auto) % (1.0-10.0) Eosinophils (%) (Auto) % (0.0-3.0) Basophils (%) (Auto) % (0.0-2.0) Differential Total Cells Counted 100 Neutrophils % (Manual) 95 % (45-75) H Lymphocytes % (Manual) 3 % (20-45) L Monocytes % (Manual) 2 % (1-10) Eosinophils % (Manual) 0 % (0-3) Basophils % (Manual) 0 % (0-2) Band Neutrophils 0 % (0-8) Platelet Estimate Adequate Platelet Morphology Normal Hypochromasia 1+ Anisocytosis 1+ Sodium Level 140 MMOL/L (136-145) Potassium Level 4.6 MMOL/L (3.5-5.1) Chloride Level 106 MMOL/L (98-107) Carbon Dioxide Level 27 MMOL/L (21-32) Anion Gap 7 mmol/L (5-15) Blood Urea Nitrogen 75 mg/dL (7-18) H Creatinine 1.4 MG/DL (0.55-1.30) H Estimat Glomerular Filtration Rate 46.5 mL/min (>60) Glucose Level 392 MG/DL (74-106) H Calcium Level 7.5 MG/DL (8.5-10.1) L Phosphorus Level 2.7 MG/DL (2.5-4.9) Current Medications Medications (Trade) Dose Ordered Sig/Ivana Route PRN Reason Start Time Stop Time Status Last Admin Dose Admin Acetaminophen (Tylenol) 650 mg Q6H PRN ORAL MILD PAIN, FEVER 01/28/20 22:45 02/27/20 22:44 01/29/20 18:17 Acetaminophen/ Hydrocodone Bitart ([place] 10/325) 1 tab Q4H PRN ORAL breakthrough pain 01/30/20 10:43 02/06/20 10:42 02/01/20 08:06 Amlodipine Besylate (Norvasc) 10 mg DAILY ORAL 02/01/20 09:00 03/02/20 08:59 02/01/20 09:41 Aspirin (ASA) 81 mg DAILY ORAL 01/29/20 09:00 03/14/20 08:59 02/01/20 08:05 Chlorhexidine Gluconate (Divina-Hex 2%) 1 applic DAILY@1999 TOPIC 01/29/20 20:00 04/28/20 19:59 01/31/20 20:33 Dextrose (Dextrose 50%) 25 ml Q30M PRN IV Hypoglycemia 01/28/20 22:45 04/27/20 22:44 Dextrose (Dextrose 50%) 50 ml Q30M PRN IV Hypoglycemia 01/28/20 22:45 04/27/20 22:44 Epoetin Haseeb (Epoetin Haseeb(ESRD on dialysis)) 8,000 unit WED-WED-WED SUBQ 01/31/20 21:00 04/30/20 20:59 01/31/20 22:54 Heparin Sodium (Porcine) (Heparin 5000 units/ml) 5,000 units EVERY 12 HOURS SUBQ 01/29/20 09:00 03/14/20 08:59 01/30/20 08:37 Hydralazine HCl (Apresoline) 10 mg Q6HR PRN IV SBP>180 01/28/20 22:45 04/27/20 22:44 02/01/20 07:38 Insulin Aspart (NovoLOG) Q6HR SUBQ 01/29/20 00:00 04/28/20 00:00 02/01/20 06:08 Insulin Detemir (Levemir) 5 units BID SUBQ 02/01/20 09:00 05/01/20 08:59 02/01/20 09:49 Ipratropium [place] (Atrovent) 500 mcg Q4HRT HHN 01/28/20 23:00 02/02/20 22:59 02/01/20 06:57 Linezolid 300 ml @ 300 mls/hr Q12HR IVPB 01/31/20 13:00 02/07/20 12:59 02/01/20 08:05 Metoprolol Tartrate (Lopressor) 12.5 mg Q12HR ORAL 02/01/20 09:00 05/01/20 08:59 02/01/20 09:41 Morphine Sulfate (Morphine Sulfate) 2 mg Q4H PRN IVP Severe Pain (Pain Scale 7-10) 01/29/20 22:30 02/05/20 22:29 02/01/20 03:32 Nitroglycerin (Ntg) 0.4 mg Q5M PRN SL Prn Chest Pain 02/01/20 08:00 03/02/20 07:59 02/01/20 08:32 Ondansetron HCl (Zofran) 4 mg Q6H PRN IVP Nausea & Vomiting 01/28/20 22:45 02/27/20 22:44 02/01/20 08:18 Sodium Chloride 1,000 ml @ 75 mls/hr [id number] IV 01/31/20 20:00 03/01/20 19:59 02/01/20 09:42 Anderson Durham MD Feb 01, 2020 10:45
[2020-02-01] MEDS ORDERED: D5NS 1000ml IV ONE (13:20)
[2020-02-01] MEDS ORDERED: Tubing IV Secondary IV ONE (13:20)
--- NOTE | 2020-02-01 15:04 | NUR ---
CASE MANAGEMENT: REVIEW 02/01/2020 SI;SEVERE SEPSIS. acute respiratory failure. VS: T 97.6 HR 63 RR 15 B/P 120/61 SATS 100% ON RA LABS: WBC 17.9 HGB 7.4 HCT 24.7 BUN 75 CR 1.4 GLU 392 CA 7.5 IS;NS @ 75 ML/HR ASA PO QD NORVASC PO QD LINEZOLID IV Q12H LOPRESSOR PO Q12J INSULIN ASPART SUBQ Q6H ICU PLAN OF CARE: 1. Discontinue isolation 2. Continue linezolid 3. consider PORFIRIO 4. cocci serology
--- NOTE | 2020-02-01 15:09 | NUR ---
NURSE NOTES: Blood transfusion started on patient. Patient's Vital Signs: HR 68, BP 136/61, Temperature 97.4 degrees axillary.
--- NOTE | 2020-02-01 19:13 | NUR ---
NURSE HAND-OFF REPORT: Latest Vital Signs: Temperature 97.2 , Pulse 71 , B/P 158 /111 , Respiratory Rate 15 , O2 SAT 93 , Room Air, O2 Flow Rate 2.0 . Vital Sign Comment: EKG Rhythm: Sinus Rhythm Rhythm change?: N MD Notified?: - MD Response: Latest Pineda Fall Score: 50 Fall Risk: High Risk Safety Measures: Call light Within Reach, Bed Alarm Zone 1, Side Rails Side Rails x3, Bed position Low and Locked. Fall Precautions: Door Sign Report given to Barbara BUSCH.
--- NOTE | 2020-02-01 19:14 | NUR ---
NURSE NOTES: Received patient from JO-ANN Beasley. Will continue plan of care.
--- NOTE | 2020-02-01 20:00 | NUR ---
NURSE NOTES: Patient is drowsy, alert and oriented x3. Currently transfusing the second unit of PRBC. On room air and tolerating. nasal cannula PRN. NS @ 75ml/hr running. IV in the right EJ saline locked and femoral TLC. Airborne precautions noted for pending acid fast bacilli smear culture. Safety measures in place; side rails up, bed low, locked and alarm is on.
[2020-02-01] MEDS: Dyna-Hex 2% Top Sol 2oz TOPIC SCH (20:17)
--- NOTE | 2020-02-01 22:00 | NUR ---
NURSE NOTES: Patient repositioned, new linens provided, patient fed, she is comfortable and satisfied. Daughter and granddaughter came to see patient.
[2020-02-01] MEDS: Pantoprazole Inj IVP SCH (22:16)
--- NOTE | 2020-02-01 23:00 | Consultation ---
DATE OF CONSULTATION: 02/01/2020 GASTROLOGY CONSULTATION CHIEF COMPLAINT: I was asked to see this patient by Dr. Germán Feliz for evaluation of gastrointestinal symptoms. HISTORY OF PRESENT ILLNESS: The patient is an unfortunate 59-year-old woman who is in the ICU with chest pain and tachycardia and swallowing difficulties. The patient notes difficulty in eating, and she says, "I have to spit up phlegm." She complains of nausea and has emesis. However, she denies any reflux-type symptoms. She says she has never had endoscopy or colonoscopy. She has had poor oral intake. She is in isolation due to COVID and tuberculosis concerns. It appears that she is negative for both of these for now. She does have a lung mass and she is being seen by a school nurse for this. She has had some signs of pneumonia and COPD. PAST MEDICAL HISTORY: Hypertension, COPD, lung mass, type 2 diabetes mellitus, paroxysmal supraventricular tachycardia. ALLERGIES: None. FAMILY HISTORY: Noncontributory. SOCIAL HISTORY: The patient has had a history of smoking. REVIEW OF SYSTEMS: Otherwise negative. PHYSICAL EXAMINATION: GENERAL: An obese woman, seen in the ICU in her room. HEENT: Normocephalic and atraumatic. Sclerae are anicteric. NECK: Supple. CHEST: Exam revealed coarse breath sounds. CARDIOVASCULAR: Exam revealed a tachycardic heart rate. ABDOMEN: Soft, obese, and nontender. EXTREMITIES: Trace edema. LABORATORY DATA: Noted. The patient had a declining hemoglobin from 9 to 9.6, down to 7.4, and her white count was elevated in the 18 to 20 range. Platelet count was initially almost 81,000, but now it is normal. Chemistry showed a creatinine of 0.4. ASSESSMENT: This patient has difficulty swallowing with symptoms of nausea, regurgitation, and poor oral intake. The patient should be supported with a proton pump inhibitor to reduce acid reflux, and in the meantime should undergo either imaging and/or endoscopy to evaluate the upper GI tract. Differential diagnosis would include esophageal masses or lesions or reflux or ulcers. Once the causative pathology for her symptoms has been identified, proper focused treatment can be recommended. RECOMMENDATIONS: 1. Protonix twice daily intravenously. 2. PO diet as tolerated. 3. Upper GI series and/or endoscopy once the patient is out of isolation and ICU. Thank you for asking me to participate in the care of this patient. Feliberto Pérez M.D. DR: KELBY JOB#: [id number] CC: MIKE
[2020-02-02] VITALS (24 sets, daily range): BP systolic 116–192; BP diastolic 55–102
--- NOTE | 2020-02-02 | NUR ---
NURSE NOTES: PRN hydralazine given for BP:180/90 and patient has pain in her right neck area and request something for pain. Daughter request no morphine to be given. PRN norco given. Patient is comfortable.
[2020-02-02] MEDS: HYDROcodone/Acetamin 10/325 tab ORAL PRN ×3 (00:08→17:03)
--- NOTE | 2020-02-02 00:26 | Cardiology Progress Note ---
Subjective DATE OF SERVICE: Feb 01, 2020 Still with congestion and SOB. No recurrent CP, but troponin peaked at 4.65, and now its 2.07. 2D Echo reviewed - EF 45%, severe pulmonary hypertension, mild-moderate AV stenosis with ESTHER 1.5cm2 Objective Last 24 Hour Vital Signs Date Time Temp Pulse Resp B/P (MAP) Pulse Ox O2 Delivery O2 Flow Rate FiO2 02/02/20 00:02 180/90 02/01/20 22:00 66 12 169/85 (113) 89 02/01/20 21:00 72 19 169/87 (114) 92 02/01/20 20:17 74 157/112 02/01/20 20:00 Room Air 02/01/20 20:00 97.4 77 13 157/112 (127) 91 02/01/20 19:00 71 15 158/111 (127) 93 02/01/20 18:49 98 Room Air 21 02/01/20 18:49 72 15 100 Room Air 21 70 15 100 02/01/20 18:00 76 13 157/70 (99) 99 02/01/20 17:00 75 18 158/51 (86) 100 02/01/20 16:00 72 02/01/20 16:00 97.2 78 25 141/61 (87) 95 02/01/20 15:40 77 16 100 Room Air 21 72 16 100 02/01/20 15:00 68 15 135/61 (85) 100 02/01/20 15:00 67 17 135/61 (85) 100 02/01/20 14:00 67 18 139/70 (93) 100 02/01/20 13:00 64 16 118/53 (74) 100 02/01/20 12:00 65 02/01/20 12:00 Room Air 02/01/20 12:00 97.6 63 15 120/61 (80) 97 02/01/20 11:33 72 16 100 Room Air 21 70 16 100 02/01/20 11:00 66 15 131/66 (87) 97 02/01/20 10:00 67 13 131/67 (88) 91 02/01/20 09:41 70 136/81 02/01/20 09:41 70 136/81 02/01/20 09:00 84 14 149/54 (85) 99 11/5/20 08:32 173/84 02/01/20 08:30 90 23 173/84 (113) 94 02/01/20 08:26 191/82 02/01/20 08:21 191/82 02/01/20 08:00 Room Air 02/01/20 08:00 70 02/01/20 08:00 97.4 81 17 191/82 (118) 100 02/01/20 07:38 193/75 02/01/20 07:03 75 23 181/83 (115) 100 02/01/20 07:00 72 13 202/73 (116) 100 02/01/20 07:00 100 Room Air 21 02/01/20 07:00 76 16 100 Room Air 21 73 16 100 02/01/20 06:00 73 13 175/65 (101) 100 02/01/20 05:00 70 14 171/75 (107) 100 02/01/20 04:00 Room Air 02/01/20 04:00 98.0 69 14 170/63 (98) 94 02/01/20 03:34 71 18 100 Room Air 21 02/01/20 03:33 71 02/01/20 03:24 70 17 99 Room Air 21 02/01/20 03:00 71 14 180/79 (112) 100 02/01/20 02:00 70 18 176/91 (119) 99 02/01/20 01:00 70 13 173/68 (103) 99 HEENT: normal ENT inspection RHYTHM: NSR LUNGS: bilat. rhonchi and rales CARDIAC: systolic murmur - 1/6 at base ABDOMEN: normal bowel sounds, non tender, soft EXTREMITIES: normal range of motion, non-pitting Laboratory Tests Test 02/01/20 04:00 02/01/20 23:20 White Blood Count 17.9 K/UL (4.8-10.8) H Red Blood Count 2.53 M/UL (4.20-5.40) L Hemoglobin 7.4 G/DL (12.0-16.0) L Hematocrit 24.7 % (37.0-47.0) L Mean Corpuscular Volume 98 FL (80-99) Mean Corpuscular Hemoglobin 29.1 PG (27.0-31.0) Mean Corpuscular Hemoglobin Concent 29.8 G/DL (32.0-36.0) L Red Cell Distribution Width 15.2 % (11.6-14.8) H Platelet Count 428 K/UL (150-450) Mean Platelet Volume 5.6 FL (6.5-10.1) L Neutrophils (%) (Auto) % (45.0-75.0) Lymphocytes (%) (Auto) % (20.0-45.0) Monocytes (%) (Auto) % (1.0-10.0) Eosinophils (%) (Auto) % (0.0-3.0) Basophils (%) (Auto) % (0.0-2.0) Differential Total Cells Counted 100 Neutrophils % (Manual) 95 % (45-75) H Lymphocytes % (Manual) 3 % (20-45) L Monocytes % (Manual) 2 % (1-10) Eosinophils % (Manual) 0 % (0-3) Basophils % (Manual) 0 % (0-2) Band Neutrophils 0 % (0-8) Platelet Estimate Adequate Platelet Morphology Normal Hypochromasia 1+ Anisocytosis 1+ Sodium Level 140 MMOL/L (136-145) Potassium Level 4.6 MMOL/L (3.5-5.1) Chloride Level 106 MMOL/L (98-107) Carbon Dioxide Level 27 MMOL/L (21-32) Anion Gap 7 mmol/L (5-15) Blood Urea Nitrogen 75 mg/dL (7-18) H Creatinine 1.4 MG/DL (0.55-1.30) H Estimat Glomerular Filtration Rate 46.5 mL/min (>60) Glucose Level 392 MG/DL (74-106) H Calcium Level 7.5 MG/DL (8.5-10.1) L Phosphorus Level 2.7 MG/DL (2.5-4.9) POC Whole Blood Glucose Pending Microbiology Date/Time Source Procedure Growth Status 01/30/20 12:00 Nasopharynx Coronavirus COVID-19 PCR ([facility]) - Final Complete 01/30/20 02:20 Sputum AFB Specimen Processing Tissue - Final Resulted 01/30/20 02:20 Sputum Acid Fast Bacilli Smear - Final Resulted 01/30/20 02:20 Sputum Acid Fast Bacilli Culture Pending Resulted Assessment/Plan Assessment/Plan Acute [place] Lung mass - prior benign biopsy Pneumonia with cavitation Mild-mod degenerative aortic stenosis Acute renal failure Pulmonary hypertension (est PAsyst 58mmHg) Hypertension with labile BP range. Anemia Orders updated Meds adjusted Discussed with ICU staff Evans Trinidad MD Feb 02, 2020 00:26
--- NOTE | 2020-02-02 02:00 | NUR ---
NURSE NOTES: Vital signs stable. All needs are met. Repositioned.
[2020-02-02] MEDS: Ipratropium 0.02% Inh Soln 2.5ml UD HHN SCH ×6 (03:06→22:35)
--- NOTE | 2020-02-02 04:00 | NUR ---
NURSE NOTES: Bed bath given, linens changes, repositioned. Patient is happy and comfortable.
[2020-02-02 05:09] LABS: HEMATOCRIT 33.5 % (37.0-47.0); HEMOGLOBIN 10.5 G/DL (12.0-16.0); MEAN CORPUSCULAR VOLUME 96 FL (80-99); PLATELET COUNT 392 K/UL (150-450); RED CELL DISTRIBUTION WIDTH 15.1 % (11.6-14.8)
[2020-02-02 05:36] LABS: WHITE BLOOD COUNT 25.3 K/UL (4.8-10.8)
[2020-02-02 05:37] LABS: ALBUMIN 2.2 G/DL (3.4-5.0); ALBUMIN/GLOBULIN RATIO 0.5 (1.0-2.7); BILIRUBIN,TOTAL 1.1 MG/DL (0.2-1.0); CREATININE 1.2 MG/DL (0.55-1.30)
--- NOTE | 2020-02-02 06:00 | NUR ---
NURSE NOTES: BP:190/83. Will give PRN hydralazine.
[2020-02-02 06:25] LABS: BILIRUBIN,DIRECT 0.7 MG/DL (0.0-0.3)
[2020-02-02] MEDS: NovoLOG Insulin Flexpen SUBQ SCH ×4 (06:25→23:46)
--- NOTE | 2020-02-02 07:35 | NUR ---
NURSE HAND-OFF REPORT: Latest Vital Signs: Temperature 97.1 , Pulse 82 , B/P 174 /69 , Respiratory Rate 20 , O2 SAT 90 , Room Air, O2 Flow Rate 2.0 . Vital Sign Comment: Stable EKG Rhythm: Sinus Rhythm Rhythm change?: N MD Notified?: - MD Response: Latest Pineda Fall Score: 50 Fall Risk: High Risk Safety Measures: Call light Within Reach, Bed Alarm Zone 1, Side Rails Side Rails x3, Bed position Low and Locked. Fall Precautions: Yellow Socks Yellow Gown Door Sign Patient Fall Education Report given to .
--- NOTE | 2020-02-02 07:40 | NUR ---
NURSE NOTES: Report received from Brabara Pablo RN.Pt awake,confused,restless, on RA,noted no resp distress c/o discomfort all over body,refusing to eat breakfast,prefers to drink juice,Flores cath draining yellow urine ,skin warm and dry with IV sites to RT external jugular 18 G heplock,and Rt Femoral TLC with NS at 75 ml/hr,SR up x2 ,HOB elevated bed lock in lowest position ,will continue with POC.
--- NOTE | 2020-02-02 08:03 | Critical Care Progress Note ---
Assessment/Plan Assessment/Plan IMPRESSION acute respiratory failure leukocytosis sepsis ARF toxic met encephalopathy COPD DM poor control cavitary lesion groundglass infiltrates NSTEMI severe PCM hypertension PLAN ICU care BIPAP off currently off and good oxygen saturations await AFB x3 antibiotics ID noted PO with caution cardiology follow up nitro PRN titrate BP meds- increase monitor wbc medications/laboratory data/nursing notes/ICU care reviewed in detail note reviewed and edited care discussed with RN and RT ICU time spent >40 minutes Critical Care - Subjective Interval Events: improved now off oxygen sugars better EKG Rhythm: Sinus Rhythm I&O: Intake and Output 02/01/20 02/02/20 19:00 07:00 Intake Total 1347.5 ml 1900 ml Output Total 760 ml 950 ml Balance 587.5 ml 950 ml Intake Oral 200 ml 700 ml IV Total 1147.5 ml 1200 ml Output Urine Total 760 ml 950 ml Critical Care - Objective Last 24 Hour Vital Signs Date Time Temp Pulse Resp B/P (MAP) Pulse Ox O2 Delivery O2 Flow Rate FiO2 02/02/20 07:00 82 20 174/69 (104) 90 02/02/20 06:20 190/83 02/02/20 06:00 77 16 190/83 (118) 92 02/02/20 05:00 84 20 174/79 (110) 93 02/02/20 04:00 Room Air 02/02/20 04:00 97.1 79 15 188/79 (115) 94 02/02/20 03:27 77 02/02/20 03:14 77 18 100 Room Air 21 75 16 98 02/02/20 03:00 76 18 192/80 (117) 96 02/02/20 02:00 77 18 172/77 (108) 94 02/02/20 01:00 71 18 147/71 (96) 94 02/02/20 00:02 180/90 02/02/20 00:00 Room Air 02/02/20 00:00 97.5 73 16 180/90 (120) 89 02/01/20 23:38 75 02/01/20 23:00 66 14 177/81 (113) 90 02/01/20 22:00 66 12 169/85 (113) 89 02/01/20 21:00 72 19 169/87 (114) 92 02/01/20 20:17 74 157/112 02/01/20 20:00 Room Air 02/01/20 20:00 97.4 77 13 157/112 (127) 91 02/01/20 19:31 76 02/01/20 19:00 71 15 158/111 (127) 93 02/01/20 18:49 98 Room Air 21 02/01/20 18:49 72 15 100 Room Air 21 70 15 100 02/01/20 18:00 76 13 157/70 (99) 99 02/01/20 17:00 75 18 158/51 (86) 100 02/01/20 16:00 72 02/01/20 16:00 97.2 78 25 141/61 (87) 95 02/01/20 15:40 77 16 100 Room Air 21 72 16 100 02/01/20 15:00 68 15 135/61 (85) 100 02/01/20 15:00 67 17 135/61 (85) 100 02/01/20 14:00 67 18 139/70 (93) 100 02/01/20 13:00 64 16 118/53 (74) 100 02/01/20 12:00 65 02/01/20 12:00 Room Air 02/01/20 12:00 97.6 63 15 120/61 (80) 97 02/01/20 11:33 72 16 100 Room Air 21 70 16 100 02/01/20 11:00 66 15 131/66 (87) 97 02/01/20 10:00 67 13 131/67 (88) 91 02/01/20 09:41 70 136/81 02/01/20 09:41 70 136/81 02/01/20 09:00 84 14 149/54 (85) 99 02/01/20 08:32 173/84 02/01/20 08:30 90 23 173/84 (113) 94 02/01/20 08:26 191/82 02/01/20 08:21 191/82 Labs: Laboratory Tests 02/01/20 23:20: POC Whole Blood Glucose [Pending] 02/02/20 04:00: White Blood Count 25.3*H, Red Blood Count 3.50L, Hemoglobin 10.5#L, Hematocrit 33.5#L, Mean Corpuscular Volume 96, Mean Corpuscular Hemoglobin 30.0, Mean Corpuscular Hemoglobin Concent 31.4L, Red Cell Distribution Width 15.1H, Platelet Count 392, Mean Platelet Volume 5.7L, Neutrophils (%) (Auto) , Lymphocytes (%) (Auto) , Monocytes (%) (Auto) , Eosinophils (%) (Auto) , Basophils (%) (Auto) , Neutrophils % (Manual) [Pending], Lymphocytes % (Manual) [Pending], Platelet Estimate [Pending], Platelet Morphology [Pending], Sodium Level 144, Potassium Level 4.0, Chloride Level 110H, Carbon Dioxide Level 25, Anion Gap 9, Blood Urea Nitrogen 63H, Creatinine 1.2, Estimat Glomerular Filtration Rate 55.6, Glucose Level 238#H, Calcium Level 8.0L, Total Bilirubin 1.1H, Direct Bilirubin 0.7H, Aspartate Amino Transf (AST/SGOT) 307H, Alanine Aminotransferase (ALT/SGPT) 284H, Alkaline Phosphatase 337H, Troponin I 1.339H, Total Protein 6.4, Albumin 2.2L, Globulin 4.2, Albumin/Globulin Ratio 0.5L 02/02/20 06:23: POC Whole Blood Glucose [Pending] Objective: WDWN ill appearing reduced breath sounds bilaterally without rhonchi or wheeze [id number] without MRG NABS nontender no HSM no CCE nonfocal Micro: Microbiology Date/Time Source Procedure Growth Status 01/30/20 12:00 Nasopharynx Coronavirus COVID-19 PCR ([facility]) - Final Complete Accucheck: 242 Germán Feliz MD Feb 02, 2020 08:03
[2020-02-02] MEDS: Pantoprazole Inj IVP SCH ×2 (09:19→20:52)
[2020-02-02] MEDS: Metoprolol Tartrate 50mg tab ORAL SCH ×2 (09:20→20:53)
[2020-02-02] MEDS: Imdur 30mg tab ORAL SCH (09:20)
[2020-02-02] MEDS: Aspirin Baby 81mg ORAL SCH (09:21)
[2020-02-02] MEDS: Heparin 5000 units/ml inj SUBQ SCH ×2 (09:25→20:54)
[2020-02-02] MEDS: Levemir Flexpen SUBQ SCH ×2 (09:26→17:35)
[2020-02-02] MEDS: Nitroglycerin Subl 0.4mg tab SL PRN (09:35)
--- NOTE | 2020-02-02 09:35 | NUR ---
NURSE NOTES: Pt c/o chest pain radiating to Lt arm,NTG 0.4mg given SL.after 5 min ,pain not relieved but refused the NTG.
--- NOTE | 2020-02-02 09:45 | NUR ---
NURSE NOTES: Pt restless moaning in pain, BP 200/99 Morphine Sulfate 2mg iv given,will continue to monitor pt's pain level.
[2020-02-02] MEDS: Morphine Sulfate 2mg/ml Inj(IV/IM USE ONLY) IVP PRN ×2 (09:46→22:02)
--- NOTE | 2020-02-02 09:55 | NUR ---
NURSE NOTES: Dr Ortiz making rounds ordered to transfer pt to Telemetry.
--- NOTE | 2020-02-02 10:00 | NUR ---
NURSE NOTES: Pt quiet at this time ,no further pain presented,verbalized feeling better,pain lesser in intensity BP down to 147/80.
--- NOTE | 2020-02-02 11:16 | Infectious Diseases Prog Note ---
Assessment/Plan Assessment/Plan antibiotics : linezolid A 1. cavitary pneumonia sputum AFB negative x 3 2. MRSA sepsis r/o endocarditis 3. diabetes mellitus 4. hypertension 5. COPD 6. renal failure improving 7. aortic stenosis P 1. continue linezolid 2. blood culture 3. will follow up cultures 4. consider PORFIRIO 5. cocci serology pending Subjective ROS Limited/Unobtainable: Yes Allergies: Coded Allergies: No Known Allergies (Unverified , 07/30/15) Objective Last 24 Hour Vital Signs Date Time Temp Pulse Resp B/P (MAP) Pulse Ox O2 Delivery O2 Flow Rate FiO2 02/02/20 09:35 190/88 02/02/20 09:21 95 190/88 02/02/20 09:20 95 190/88 02/02/20 09:20 190/88 02/02/20 07:38 79 18 99 Room Air 21 82 20 94 02/02/20 07:31 99 Room Air 21 02/02/20 07:00 82 20 174/69 (104) 90 02/02/20 06:20 190/83 02/02/20 06:00 77 16 190/83 (118) 92 02/02/20 05:00 84 20 174/79 (110) 93 02/02/20 04:00 Room Air 02/02/20 04:00 97.1 79 15 188/79 (115) 94 02/02/20 03:27 77 02/02/20 03:14 77 18 100 Room Air 21 75 16 98 02/02/20 03:00 76 18 192/80 (117) 96 02/02/20 02:00 77 18 172/77 (108) 94 02/02/20 01:00 71 18 147/71 (96) 94 02/02/20 00:02 180/90 02/02/20 00:00 Room Air 02/02/20 00:00 97.5 73 16 180/90 (120) 89 02/01/20 23:38 75 02/01/20 23:00 66 14 177/81 (113) 90 02/01/20 22:00 66 12 169/85 (113) 89 02/01/20 21:00 72 19 169/87 (114) 92 02/01/20 20:17 74 157/112 02/01/20 20:00 Room Air 02/01/20 20:00 97.4 77 13 157/112 (127) 91 02/01/20 19:31 76 02/01/20 19:00 71 15 158/111 (127) 93 02/01/20 18:49 98 Room Air 21 02/01/20 18:49 72 15 100 Room Air 21 70 15 100 02/01/20 18:00 76 13 157/70 (99) 99 02/01/20 17:00 75 18 158/51 (86) 100 02/01/20 16:00 72 02/01/20 16:00 97.2 78 25 141/61 (87) 95 02/01/20 15:40 77 16 100 Room Air 21 72 16 100 02/01/20 15:00 68 15 135/61 (85) 100 02/01/20 15:00 67 17 135/61 (85) 100 02/01/20 14:00 67 18 139/70 (93) 100 02/01/20 13:00 64 16 118/53 (74) 100 02/01/20 12:00 65 02/01/20 12:00 Room Air 02/01/20 12:00 97.6 63 15 120/61 (80) 97 02/01/20 11:33 72 16 100 Room Air 21 70 16 100 Height (Feet): 5 Height (Inches): 1.00 Weight (Pounds): 168 Respiratory/Chest: lungs clear Cardiovascular: normal rate, regular rhythm, no gallop/murmur Abdomen: soft, non tender Extremities: no edema Microbiology Date/Time Source Procedure Growth Status 01/30/20 12:00 Nasopharynx Coronavirus COVID-19 PCR ([facility]) - Final Complete Laboratory Tests Test 02/01/20 23:20 02/02/20 04:00 02/02/20 06:23 POC Whole Blood Glucose Pending Pending White Blood Count 25.3 K/UL (4.8-10.8) *H Red Blood Count 3.50 M/UL (4.20-5.40) L Hemoglobin 10.5 G/DL (12.0-16.0) #L Hematocrit 33.5 % (37.0-47.0) #L Mean Corpuscular Volume 96 FL (80-99) Mean Corpuscular Hemoglobin 30.0 PG (27.0-31.0) Mean Corpuscular Hemoglobin Concent 31.4 G/DL (32.0-36.0) L Red Cell Distribution Width 15.1 % (11.6-14.8) H Platelet Count 392 K/UL (150-450) Mean Platelet Volume 5.7 FL (6.5-10.1) L Neutrophils (%) (Auto) % (45.0-75.0) Lymphocytes (%) (Auto) % (20.0-45.0) Monocytes (%) (Auto) % (1.0-10.0) Eosinophils (%) (Auto) % (0.0-3.0) Basophils (%) (Auto) % (0.0-2.0) Differential Total Cells Counted 100 Neutrophils % (Manual) 89 % (45-75) H Lymphocytes % (Manual) 4 % (20-45) L Monocytes % (Manual) 7 % (1-10) Eosinophils % (Manual) 0 % (0-3) Basophils % (Manual) 0 % (0-2) Band Neutrophils 0 % (0-8) Platelet Estimate Adequate Platelet Morphology Normal Hypochromasia 1+ Anisocytosis 1+ Sodium Level 144 MMOL/L (136-145) Potassium Level 4.0 MMOL/L (3.5-5.1) Chloride Level 110 MMOL/L (98-107) H Carbon Dioxide Level 25 MMOL/L (21-32) Anion Gap 9 mmol/L (5-15) Blood Urea Nitrogen 63 mg/dL (7-18) H Creatinine 1.2 MG/DL (0.55-1.30) Estimat Glomerular Filtration Rate 55.6 mL/min (>60) Glucose Level 238 MG/DL (74-106) #H Calcium Level 8.0 MG/DL (8.5-10.1) L Total Bilirubin 1.1 MG/DL (0.2-1.0) H Direct Bilirubin 0.7 MG/DL (0.0-0.3) H Aspartate Amino Transf (AST/SGOT) 307 U/L (15-37) H Alanine Aminotransferase (ALT/SGPT) 284 U/L (12-78) H Alkaline Phosphatase 337 U/L (46-116) H Troponin I 1.339 ng/mL (0.000-0.056) Total Protein 6.4 G/DL (6.4-8.2) Albumin 2.2 G/DL (3.4-5.0) L Globulin 4.2 g/dL Albumin/Globulin Ratio 0.5 (1.0-2.7) L Current Medications Medications (Trade) Dose Ordered Sig/Ivana Route PRN Reason Start Time Stop Time Status Last Admin Dose Admin Acetaminophen (Tylenol) 650 mg Q6H PRN ORAL MILD PAIN, FEVER 01/28/20 22:45 02/27/20 22:44 01/29/20 18:17 Acetaminophen/ Hydrocodone Bitart ([place] 10/325) 1 tab Q4H PRN ORAL breakthrough pain 01/30/20 10:43 02/06/20 10:42 02/02/20 04:39 Amlodipine Besylate (Norvasc) 10 mg DAILY ORAL 02/01/20 09:00 03/02/20 08:59 02/02/20 09:21 Aspirin (ASA) 81 mg DAILY ORAL 01/29/20 09:00 03/14/20 08:59 02/02/20 09:21 Chlorhexidine Gluconate (Divina-Hex 2%) 1 applic DAILY@1999 TOPIC 01/29/20 20:00 04/28/20 19:59 02/01/20 20:17 Dextrose (Dextrose 50%) 25 ml Q30M PRN IV Hypoglycemia 01/28/20 22:45 04/27/20 22:44 Dextrose (Dextrose 50%) 50 ml Q30M PRN IV Hypoglycemia 01/28/20 22:45 04/27/20 22:44 Epoetin Haseeb (Epoetin Haseeb(ESRD on dialysis)) 8,000 unit WED-WED-WED SUBQ 01/31/20 21:00 04/30/20 20:59 01/31/20 22:54 Heparin Sodium (Porcine) (Heparin 5000 units/ml) 5,000 units EVERY 12 HOURS SUBQ 01/29/20 09:00 03/14/20 08:59 02/02/20 09:25 Hydralazine HCl (Apresoline) 10 mg Q6HR PRN IV SBP>180 01/28/20 22:45 04/27/20 22:44 02/02/20 06:20 Insulin Aspart (NovoLOG) Q6HR SUBQ 01/29/20 00:00 04/28/20 00:00 02/02/20 06:25 Insulin Detemir (Levemir) 10 units BID SUBQ 02/02/20 09:00 05/01/20 08:59 02/02/20 09:26 Ipratropium Reasnor (Atrovent) 500 mcg Q4HRT HHN 01/28/20 23:00 02/02/20 22:59 02/02/20 10:15 Isosorbide Mononitrate (Imdur) 30 mg DAILY ORAL 02/02/20 09:00 03/03/20 08:59 02/02/20 09:20 Linezolid 300 ml @ 300 mls/hr Q12HR IVPB 01/31/20 13:00 02/07/20 12:59 02/02/20 09:44 Metoprolol Tartrate (Lopressor) 50 mg Q12HR ORAL 02/02/20 09:00 05/02/20 08:59 02/02/20 09:20 Morphine Sulfate (Morphine Sulfate) 2 mg Q4H PRN IVP Severe Pain (Pain Scale 7-10) 01/29/20 22:30 02/05/20 22:29 02/02/20 09:46 Nitroglycerin (Ntg) 0.4 mg Q5M PRN SL Prn Chest Pain 02/01/20 08:00 03/02/20 07:59 02/02/20 09:35 Ondansetron HCl (Zofran) 4 mg Q6H PRN IVP Nausea & Vomiting 01/28/20 22:45 02/27/20 22:44 02/01/20 18:10 Pantoprazole (Protonix) 40 mg EVERY 12 HOURS IVP 02/01/20 22:00 03/02/20 21:59 02/02/20 09:19 Sodium Chloride 1,000 ml @ 75 mls/hr [id number] IV 01/31/20 20:00 03/01/20 19:59 02/02/20 09:45 Messi Lopez MD Feb 02, 2020 11:15
--- NOTE | 2020-02-02 12:54 | Nephrology Progress Note ---
Assessment/Plan Plan Pneumonia - IV Abx CKD -stable Subjective Subjective No new c/o Objective Objective Last 24 Hour Vital Signs Date Time Temp Pulse Resp B/P (MAP) Pulse Ox O2 Delivery O2 Flow Rate FiO2 02/02/20 12:00 98.2 69 18 149/75 (99) 98 02/02/20 12:00 Room Air 02/02/20 11:00 66 14 126/71 (89) 97 02/02/20 10:00 67 14 116/93 (101) 97 02/02/20 09:35 190/88 02/02/20 09:21 95 190/88 02/02/20 09:20 95 190/88 02/02/20 09:20 190/88 02/02/20 09:00 88 22 171/55 (93) 98 02/02/20 08:00 90 02/02/20 08:00 Room Air 02/02/20 08:00 97.6 82 18 172/84 (113) 95 02/02/20 07:38 79 18 99 Room Air 21 82 20 94 02/02/20 07:31 99 Room Air 21 02/02/20 07:00 82 20 174/69 (104) 90 02/02/20 06:20 190/83 02/02/20 06:00 77 16 190/83 (118) 92 02/02/20 05:00 84 20 174/79 (110) 93 02/02/20 04:00 Room Air 02/02/20 04:00 97.1 79 15 188/79 (115) 94 02/02/20 03:27 77 02/02/20 03:14 77 18 100 Room Air 21 75 16 98 02/02/20 03:00 76 18 192/80 (117) 96 02/02/20 02:00 77 18 172/77 (108) 94 02/02/20 01:00 71 18 147/71 (96) 94 02/02/20 00:02 180/90 02/02/20 00:00 Room Air 02/02/20 00:00 97.5 73 16 180/90 (120) 89 02/01/20 23:38 75 02/01/20 23:00 66 14 177/81 (113) 90 02/01/20 22:00 66 12 169/85 (113) 89 02/01/20 21:00 72 19 169/87 (114) 92 02/01/20 20:17 74 157/112 02/01/20 20:00 Room Air 02/01/20 20:00 97.4 77 13 157/112 (127) 91 02/01/20 19:31 76 02/01/20 19:00 71 15 158/111 (127) 93 02/01/20 18:49 98 Room Air 21 02/01/20 18:49 72 15 100 Room Air 21 70 15 100 02/01/20 18:00 76 13 157/70 (99) 99 02/01/20 17:00 75 18 158/51 (86) 100 02/01/20 16:00 72 02/01/20 16:00 97.2 78 25 141/61 (87) 95 02/01/20 15:40 77 16 100 Room Air 21 72 16 100 02/01/20 15:00 68 15 135/61 (85) 100 02/01/20 15:00 67 17 135/61 (85) 100 02/01/20 14:00 67 18 139/70 (93) 100 02/01/20 13:00 64 16 118/53 (74) 100 Intake and Output 02/01/20 02/02/20 19:00 07:00 Intake Total 1347.5 ml 1900 ml Output Total 760 ml 950 ml Balance 587.5 ml 950 ml Intake Oral 200 ml 700 ml IV Total 1147.5 ml 1200 ml Output Urine Total 760 ml 950 ml Laboratory Tests 02/01/20 23:20: POC Whole Blood Glucose [Pending] 02/02/20 04:00: White Blood Count 25.3*H, Red Blood Count 3.50L, Hemoglobin 10.5#L, Hematocrit 33.5#L, Mean Corpuscular Volume 96, Mean Corpuscular Hemoglobin 30.0, Mean Corpuscular Hemoglobin Concent 31.4L, Red Cell Distribution Width 15.1H, P latelet Count 392, Mean Platelet Volume 5.7L, Neutrophils (%) (Auto) , Lymphocytes (%) (Auto) , Monocytes (%) (Auto) , Eosinophils (%) (Auto) , Basophils (%) (Auto) , Differential Total Cells Counted 100, Neutrophils % (Manu al) 89H, Lymphocytes % (Manual) 4L, Monocytes % (Manual) 7, Eosinophils % (Manual) 0, Basophils % (Manual) 0, Band Neutrophils 0, Platelet Estimate Adequate, Platelet Morphology Normal, Hypochromasia 1+, Anisocytosis 1+, Sodium Level 144, Potassium Level 4.0, Chloride Level 110H, Carbon Dioxide Level 25, Anion Gap 9, Blood Urea Nitrogen 63H, Creatinine 1.2, Estimat Glomerular Filtration Rate 55.6, Glucose Level 238#H, Calcium Level 8.0L, Total Bilirubin 1.1H, Direct Bilirubin 0.7H, Aspartate Amino Transf (AST/SGOT) 307H, Alanine Aminotransferase (ALT/SGPT) 284H, Alkaline Phosphatase 337H, Troponin I 1.339H, Total Protein 6.4, Albumin 2.2L, Globulin 4.2, Albumin/Globulin Ratio 0.5L 02/02/20 06:23: POC Whole Blood Glucose [Pending] Height (Feet): 5 Height (Inches): 1.00 Weight (Pounds): 168 Objective CV RR Lungs B suad Reyes SNT. BS + E No CCE Brigitte Robison MD Feb 02, 2020 12:54
--- NOTE | 2020-02-02 15:00 | NUR ---
NURSE NOTES: Family members at bedside,updated re pt's status.
--- NOTE | 2020-02-02 15:34 | Cardiology Progress Note ---
Subjective DATE OF SERVICE: Feb 02, 2020 Less congestion and SOB. O2 requirements have decreased. No recurrent CP, but troponin peaked at 4.65, and now its 1.3. 2D Echo reviewed - EF 45%, severe pulmonary hypertension, mild-moderate AV stenosis with ESTHER 1.5cm2 Objective Last 24 Hour Vital Signs Date Time Temp Pulse Resp B/P (MAP) Pulse Ox O2 Delivery O2 Flow Rate FiO2 02/02/20 13:00 69 16 135/71 (92) 100 02/02/20 12:00 98.2 69 18 149/75 (99) 98 02/02/20 12:00 Room Air 02/02/20 12:00 67 02/02/20 11:00 66 14 126/71 (89) 97 02/02/20 10:00 67 14 116/93 (101) 97 02/02/20 09:35 190/88 02/02/20 09:21 95 190/88 02/02/20 09:20 95 190/88 02/02/20 09:20 190/88 02/02/20 09:00 88 22 171/55 (93) 98 02/02/20 08:00 90 02/02/20 08:00 Room Air 02/02/20 08:00 97.6 82 18 172/84 (113) 95 02/02/20 07:38 79 18 99 Room Air 21 82 20 94 02/02/20 07:31 99 Room Air 21 02/02/20 07:00 82 20 174/69 (104) 90 02/02/20 06:20 190/83 02/02/20 06:00 77 16 190/83 (118) 92 02/02/20 05:00 84 20 174/79 (110) 93 02/02/20 04:00 Room Air 02/02/20 04:00 97.1 79 15 188/79 (115) 94 02/02/20 03:27 77 02/02/20 03:14 77 18 100 Room Air 21 75 16 98 02/02/20 03:00 76 18 192/80 (117) 96 02/02/20 02:00 77 18 172/77 (108) 94 02/02/20 01:00 71 18 147/71 (96) 94 02/02/20 00:02 180/90 02/02/20 00:00 Room Air 02/02/20 00:00 97.5 73 16 180/90 (120) 89 02/01/20 23:38 75 02/01/20 23:00 66 14 177/81 (113) 90 02/01/20 22:00 66 12 169/85 (113) 89 02/01/20 21:00 72 19 169/87 (114) 92 02/01/20 20:17 74 157/112 02/01/20 20:00 Room Air 02/01/20 20:00 97.4 77 13 157/112 (127) 91 02/01/20 19:31 76 02/01/20 19:00 71 15 158/111 (127) 93 02/01/20 18:49 98 Room Air 21 02/01/20 18:49 72 15 100 Room Air 21 70 15 100 02/01/20 18:00 76 13 157/70 (99) 99 02/01/20 17:00 75 18 158/51 (86) 100 02/01/20 16:00 72 02/01/20 16:00 97.2 78 25 141/61 (87) 95 02/01/20 15:40 77 16 100 Room Air 21 72 16 100 HEENT: normal ENT inspection RHYTHM: NSR LUNGS: bilat. rhonchi and rales CARDIAC: systolic murmur - 1/6 at base ABDOMEN: normal bowel sounds, non tender, soft EXTREMITIES: normal range of motion, non-pitting Laboratory Tests Test 02/01/20 23:20 02/02/20 04:00 02/02/20 06:23 POC Whole Blood Glucose Pending Pending White Blood Count 25.3 K/UL (4.8-10.8) *H Red Blood Count 3.50 M/UL (4.20-5.40) L Hemoglobin 10.5 G/DL (12.0-16.0) #L Hematocrit 33.5 % (37.0-47.0) #L Mean Corpuscular Volume 96 FL (80-99) Mean Corpuscular Hemoglobin 30.0 PG (27.0-31.0) Mean Corpuscular Hemoglobin Concent 31.4 G/DL (32.0-36.0) L Red Cell Distribution Width 15.1 % (11.6-14.8) H Platelet Count 392 K/UL (150-450) Mean Platelet Volume 5.7 FL (6.5-10.1) L Neutrophils (%) (Auto) % (45.0-75.0) Lymphocytes (%) (Auto) % (20.0-45.0) Monocytes (%) (Auto) % (1.0-10.0) Eosinophils (%) (Auto) % (0.0-3.0) Basophils (%) (Auto) % (0.0-2.0) Differential Total Cells Counted 100 Neutrophils % (Manual) 89 % (45-75) H Lymphocytes % (Manual) 4 % (20-45) L Monocytes % (Manual) 7 % (1-10) Eosinophils % (Manual) 0 % (0-3) Basophils % (Manual) 0 % (0-2) Band Neutrophils 0 % (0-8) Platelet Estimate Adequate Platelet Morphology Normal Hypochromasia 1+ Anisocytosis 1+ Sodium Level 144 MMOL/L (136-145) Potassium Level 4.0 MMOL/L (3.5-5.1) Chloride Level 110 MMOL/L (98-107) H Carbon Dioxide Level 25 MMOL/L (21-32) Anion Gap 9 mmol/L (5-15) Blood Urea Nitrogen 63 mg/dL (7-18) H Creatinine 1.2 MG/DL (0.55-1.30) Estimat Glomerular Filtration Rate 55.6 mL/min (>60) Glucose Level 238 MG/DL (74-106) #H Calcium Level 8.0 MG/DL (8.5-10.1) L Total Bilirubin 1.1 MG/DL (0.2-1.0) H Direct Bilirubin 0.7 MG/DL (0.0-0.3) H Aspartate Amino Transf (AST/SGOT) 307 U/L (15-37) H Alanine Aminotransferase (ALT/SGPT) 284 U/L (12-78) H Alkaline Phosphatase 337 U/L (46-116) H Troponin I 1.339 ng/mL (0.000-0.056) Total Protein 6.4 G/DL (6.4-8.2) Albumin 2.2 G/DL (3.4-5.0) L Globulin 4.2 g/dL Albumin/Globulin Ratio 0.5 (1.0-2.7) L Assessment/Plan Assessment/Plan Acute LA Lung mass - prior benign biopsy Pneumonia with cavitation Mild-mod degenerative aortic stenosis Acute renal failure Pulmonary hypertension (est PAsyst 58mmHg) Hypertension with labile BP range. Anemia Orders updated Meds adjusted further Repeat labs and CXR Discussed with ICU staff Evans Trinidad MD Feb 02, 2020 15:34
--- NOTE | 2020-02-02 16:36 | General Progress Note ---
Subjective Allergies: Coded Allergies: No Known Allergies (Unverified , 07/30/15) Subjective Above noted seen in ICU still in isolation poor po still with regurgitation Objective Last 24 Hour Vital Signs Date Time Temp Pulse Resp B/P (MAP) Pulse Ox O2 Delivery O2 Flow Rate FiO2 02/02/20 14:55 85 20 100 Room Air 21 82 18 94 02/02/20 13:00 69 16 135/71 (92) 100 02/02/20 12:00 98.2 69 18 149/75 (99) 98 02/02/20 12:00 Room Air 02/02/20 12:00 67 02/02/20 11:00 66 14 126/71 (89) 97 02/02/20 10:25 84 20 100 Room Air 21 86 20 95 02/02/20 10:00 67 14 116/93 (101) 97 02/02/20 09:35 190/88 02/02/20 09:21 95 190/88 02/02/20 09:20 95 190/88 02/02/20 09:20 190/88 02/02/20 09:00 88 22 171/55 (93) 98 02/02/20 08:00 90 02/02/20 08:00 Room Air 02/02/20 08:00 97.6 82 18 172/84 (113) 95 02/02/20 07:38 79 18 99 Room Air 21 82 20 94 02/02/20 07:31 99 Room Air 21 02/02/20 07:00 82 20 174/69 (104) 90 02/02/20 06:20 190/83 02/02/20 06:00 77 16 190/83 (118) 92 02/02/20 05:00 84 20 174/79 (110) 93 02/02/20 04:00 Room Air 02/02/20 04:00 97.1 79 15 188/79 (115) 94 02/02/20 03:27 77 02/02/20 03:14 77 18 100 Room Air 21 75 16 98 02/02/20 03:00 76 18 192/80 (117) 96 02/02/20 02:00 77 18 172/77 (108) 94 02/02/20 01:00 71 18 147/71 (96) 94 02/02/20 00:02 180/90 02/02/20 00:00 Room Air 02/02/20 00:00 97.5 73 16 180/90 (120) 89 02/01/20 23:38 75 02/01/20 23:00 66 14 177/81 (113) 90 02/01/20 22:00 66 12 169/85 (113) 89 02/01/20 21:00 72 19 169/87 (114) 92 02/01/20 20:17 74 157/112 02/01/20 20:00 Room Air 02/01/20 20:00 97.4 77 13 157/112 (127) 91 02/01/20 19:31 76 02/01/20 19:00 71 15 158/111 (127) 93 02/01/20 18:49 98 Room Air 21 02/01/20 18:49 72 15 100 Room Air 21 70 15 100 02/01/20 18:00 76 13 157/70 (99) 99 02/01/20 17:00 75 18 158/51 (86) 100 Intake and Output 02/01/20 02/02/20 19:00 07:00 Intake Total 1347.5 ml 1900 ml Output Total 760 ml 950 ml Balance 587.5 ml 950 ml Intake Oral 200 ml 700 ml IV Total 1147.5 ml 1200 ml Output Urine Total 760 ml 950 ml Laboratory Tests 02/01/20 23:20: POC Whole Blood Glucose [Pending] 02/02/20 04:00: White Blood Count 25.3*H, Red Blood Count 3.50L, Hemoglobin 10.5#L, Hematocrit 33.5#L, Mean Corpuscular Volume 96, Mean Corpuscular Hemoglobin 30.0, Mean Corpuscular Hemoglobin Concent 31.4L, Red Cell Distribution Width 15.1H, Platelet Count 392, Mean Platelet Volume 5.7L, Neutrophils (%) (Auto) , Lymphocytes (%) (Auto) , Monocytes (%) (Auto) , Eosinophils (%) (Auto) , Basophils (%) (Auto) , Differential Total Cells Counted 100, Neutrophils % (Manual) 89H, Lymphocytes % (Manual) 4L, Monocytes % (Manual) 7, Eosinophils % (Manual) 0, Basophils % (Manual) 0, Band Neutrophils 0, Platelet Estimate Adequate, Platelet Morphology Normal, Hypochromasia 1+, Anisocytosis 1+, Sodium Level 144, Potassium Level 4.0, Chloride Level 110H, Carbon Dioxide Level 25, Anion Gap 9, Blood Urea Nitrogen 63H, Creatinine 1.2, Estimat Glomerular Filtration Rate 55.6, Glucose Level 238#H, Calcium Level 8.0L, Total Bilirubin 1.1H, Direct Bilirubin 0.7H, Aspartate Amino Transf (AST/SGOT) 307H, Alanine Aminotransferase (ALT/SGPT) 284H, Alkaline Phosphatase 337H, Troponin I 1.339H, Total Protein 6.4, Albumin 2.2L, Globulin 4.2, Albumin/Globulin Ratio 0.5L 02/02/20 06:23: POC Whole Blood Glucose [Pending] Height (Feet): 5 Height (Inches): 1.00 Weight (Pounds): 168 Objective WDWN NCAT supple CTA RR Abd soft ND no edema Assessment/Plan Assessment/Plan: Assessment - Swallowing Sx - dysphagia, regurgitation, nausea - HTN - COPD - Lung mass - DM - PSVT Recommendations - po as tolerated - check UGI once out of isolation - PPI - Elevate HOB Feliberto Pérez MD Feb 02, 2020 16:36
--- NOTE | 2020-02-02 17:05 | NUR ---
NURSE NOTES: Pt getting restless again,moaning c/o pain to Lt Arm,[place] 10 mg, 1 tab po given,will contin ue to monitor pt's pain .
--- NOTE | 2020-02-02 17:30 | Diagnostic Imaging Report ---
Indication: Cough Technique: One view of the chest Comparison: 01/28/2020 Findings: Cavitary right upper lobe lesion is again demonstrated. Mild interstitial congestion is unchanged. The heart size is upper limits of normal Impression: Unchanged, over one day, findings as above.
--- NOTE | 2020-02-02 18:00 | NUR ---
NURSE NOTES: Pt asleep at this time no further discomfort or pain presented,
--- NOTE | 2020-02-02 18:15 | Diagnostic Imaging Report ---
EXAM: US Abdomen Complete CLINICAL HISTORY: ABN LABS TECHNIQUE: Real-time ultrasound of the abdomen with image documentation. COMPARISON: 08/28/2018 FINDINGS: Liver: Mildly nodular. Increased echogenicity. No mass. No intrahepatic bile duct dilation. Gallbladder: No gallstones. No pericholecystic fluid. No gallbladder wall thickening. Negative Denton's sign. Common bile duct: No stones. No dilation. Pancreas: Unremarkable. Kidneys: No stones. No solid mass. No hydronephrosis. Spleen: Unremarkable. Aorta: No aneurysm. Inferior vena cava: Unremarkable. IMPRESSION: Hepatic steatosis. Mildly nodular liver.
--- NOTE | 2020-02-02 19:18 | NUR ---
NURSE HAND-OFF REPORT: Latest Vital Signs: Temperature 97.6 , Pulse 65 , B/P 140 /73 , Respiratory Rate 16 , O2 SAT 100 , Room Air, O2 Flow Rate 2.0 . Vital Sign Comment: [] EKG Rhythm: Sinus Rhythm Rhythm change?: N MD Notified?: - MD Response: Latest Pineda Fall Score: 50 Fall Risk: High Risk Safety Measures: Call light Within Reach, Bed Alarm Zone 1, Side Rails Side Rails x3, Bed position Low and Locked. Fall Precautions: Yellow Socks Yellow Gown Door Sign Patient Fall Education Report given to Amara BUSCH.
--- NOTE | 2020-02-02 19:19 | NUR ---
NURSE NOTES: Patient received from JO-ANN Clarke. Patient arousable to name but lethargic oriented to self. denies pain at this time. respirations even and unlabored on room air with ronchi noted in all lobes billaterally. BP 148/76 HR 64 NSR on monitor. patient refused to eat. right IJ SL, Right femoral TLC running NS @ 75ml/hr asymptomatic. allan catheter draining yellow urine. skin warm dry intact. patient repositioned self. bed locked lowest position call light within reach.
[2020-02-02] MEDS: Dyna-Hex 2% Top Sol 2oz TOPIC SCH (20:52)
[2020-02-02] MEDS: Epoetin Alfa-EPBX(ESRD on dialysis)4000 units/ml vial SUBQ SCH (21:00)
--- NOTE | 2020-02-02 22:00 | NUR ---
NURSE NOTES: Patient awake oriented to self. respirations even and unlabored on room air. BP 184/88 HR 72 NSR on monitor. patient restless moaning and difficult to comfort stating pain but unable to verbalize where and severity. prn morphine administered and scheduled metoprolol given. right IJ SL, Right femoral TLC running NS @ 75ml/hr asymptomatic. Flores catheter draining yellow urine. skin warm dry intact. patient repositioned self. bed locked lowest position call light within reach.
[2020-02-03] VITALS (16 sets, daily range): BP systolic 115–175; BP diastolic 63–92
--- NOTE | 2020-02-03 | NUR ---
NURSE NOTES: Patient asleep arousable to name, oriented to self. respirations even and unlabored on room air. BP 146/92 HR 63 NSR on monitor and afebrile. patient stated relief from pain after prn administered. BS 153, insulin given as ordered, snack provided. right IJ SL, Right femoral TLC running NS @ 75ml/hr asymptomatic. Flores catheter draining yellow urine. skin warm dry intact. patient repositioned self. bed locked lowest position call light within reach.
[2020-02-03] MEDS: HYDROcodone/Acetamin 10/325 tab ORAL PRN ×2 (00:28→17:41)
--- NOTE | 2020-02-03 02:00 | NUR ---
NURSE NOTES: Patient asleep arousable to name, oriented to self. respirations even and unlabored on room air. BP 144/75 HR 64 NSR on monitor and afebrile. patient stated relief from pain after prn administered. right IJ SL, Right femoral TLC running NS @ 75ml/hr asymptomatic. Flores catheter draining yellow urine. skin warm dry intact. patient repositioned self. bed locked lowest position call light within reach.
[2020-02-03] MEDS: Nitroglycerin Subl 0.4mg tab SL PRN ×2 (02:29→06:17)
--- NOTE | 2020-02-03 02:30 | NUR ---
NURSE NOTES: Patient awake stating chest pain 10/10, but unable to specify if radiating or describe pain characteristic. PRN nitroglycerin administered. ECG done, NSR. patient repositioned, bed locked lowest position call light within reach.
[2020-02-03] MEDS: Ipratropium 0.02% Inh Soln 2.5ml UD HHN SCH ×6 (03:22→23:00)
--- NOTE | 2020-02-03 04:00 | NUR ---
NURSE NOTES: Patient asleep arousable to name, oriented to self. respirations even and unlabored on room air. BP 137/63 HR 63 NSR on monitor and afebrile. patient denies pain at this time. right IJ SL, Right femoral TLC running NS @ 75ml/hr asymptomatic. Flores catheter draining yellow urine. skin warm dry intact. patient repositioned self. bed locked lowest position call light within reach.
[2020-02-03 04:43] LABS: HEMATOCRIT 31.9 % (37.0-47.0); MEAN CORPUSCULAR VOLUME 97 FL (80-99); PLATELET COUNT 331 K/UL (150-450); RED CELL DISTRIBUTION WIDTH 15.7 % (11.6-14.8); WHITE BLOOD COUNT 18.2 K/UL (4.8-10.8)
[2020-02-03] MEDS: Morphine Sulfate 2mg/ml Inj(IV/IM USE ONLY) IVP PRN ×3 (05:23→22:35)
[2020-02-03] MEDS: NovoLOG Insulin Flexpen SUBQ SCH ×3 (05:29→18:00)
[2020-02-03 05:48] LABS: CREATINE KINASE 39 U/L (26-308)
[2020-02-03 05:53] LABS: ALBUMIN 2.1 G/DL (3.4-5.0); ALBUMIN/GLOBULIN RATIO 0.4 (1.0-2.7); BILIRUBIN,TOTAL 1.4 MG/DL (0.2-1.0); CREATININE 1.2 MG/DL (0.55-1.30); POTASSIUM 4.2 MMOL/L (3.5-5.1)
--- NOTE | 2020-02-03 06:00 | NUR ---
NURSE NOTES: Patient awake oriented to self. respirations even and unlabored on room air, oxygen saturation 100%. BP153/69 HR65 NSR on monitor. Right EJ and Right femoral TLC running NS @75ml/hr asymptomatic. Flores catheter draining yellow urine. skin warm dry intact with bruise noted on left dorsal upper arm and right lower abdomen. patient repositioned self, bed locked lowest position, call light within reach.
--- NOTE | 2020-02-03 07:10 | NUR ---
NURSE HAND-OFF REPORT: Latest Vital Signs: Temperature 98.9 , Pulse 65 , B/P 153 /69 , Respiratory Rate 14 , O2 SAT 100 , Room Air, O2 Flow Rate 2.0 . Vital Sign Comment: WNL EKG Rhythm: Sinus Rhythm Rhythm change?: N MD Notified?: - MD Response: Latest Pineda Fall Score: 50 Fall Risk: High Risk Safety Measures: Call light Within Reach, Bed Alarm Zone 1, Side Rails Side Rails x3, Bed position Low and Locked. Fall Precautions: Yellow Socks Yellow Gown Door Sign Patient Fall Education Report given to JO-ANN Page.
--- NOTE | 2020-02-03 08:00 | NUR ---
NURSE NOTES: Pt was assessed after receiving change of shift report from Linda BUSCH. Pt is awake, oriented to name and knows she is at the hospital, however remains confused and impulsive, attempting to get out of bed, states "i want to go home". Pt is on room air, with no respiratory distress, however presents with productive cough. Temp 98.1F axillary. IV fluid NS is infusing at 75ml/hour via right femoral central line, TLC, patent/intact. Flores catheter is present, draining dark yellow urine. Skin is intact. HOB at semi-smith's, bed locked, three side rails up, and call light is placed within easy reach. Will continue to monitor pt and follow plan of care per MD orders and protocol.
--- NOTE | 2020-02-03 08:12 | NUR ---
RD ASSESSMENT & RECOMMENDATIONS SEE CARE ACTIVITY FOR COMPLETE ASSESSMENT DAILY ESTIMATED NEEDS: Needs based on Sepsis, pulmonary/ 54.9kg abw 25-35 kcals/kg 3874-7142 total kcals 1-2 g protein/kg 55-110 g total protein 25-30 mL/kg 4832-5529 total fluid mLs NUTRITION DIAGNOSIS: * Altered nutrition related lab values R/T clinical status as evidenced by variable poc BGs (52-325, currently w/ improved POC 153-242), elev WBC (18.2 trend down), elev K (5.4 -> wnl), elev creat, now wnl, elev LFTs. CURRENT DIET: [facility] MED PO DIET RECOMMENDATIONS: Poor po intake-> rec liberalized Regular diet + Glucerna TID w/ meals ADDITIONAL RECOMMENDATIONS: * Rec liberalized regular diet at this time. -> [facility] MED + LOW NA w/ >50% intake * Consider appetite stimulant * W/ continued poor PO and refusing meals, consider nonoral feeds * Monitor closely for hypoglycemia w/ poor PO -> monitor need for added D5 * Calibrated bed scale wts .
--- NOTE | 2020-02-03 09:42 | Critical Care Progress Note ---
Assessment/Plan Assessment/Plan IMPRESSION acute respiratory failure leukocytosis sepsis ARF toxic met encephalopathy COPD DM poor control cavitary lesion negative AFB groundglass infiltrates NSTEMI severe PCM hypertension PLAN ICU care - may transfer BIPAP off currently off and good oxygen saturations antibiotics ID noted PO with caution cardiology follow up nitro PRN titrate BP meds- increase monitor wbc repeat imaging medications/laboratory data/nursing notes/ICU care reviewed in detail note reviewed and edited care discussed with RN and RT ICU time spent >40 minutes Critical Care - Subjective Interval Events: improved afb negative x 3 Condition: improving EKG Rhythm: Sinus Rhythm I&O: Intake and Output 02/02/20 02/03/20 19:00 07:00 Intake Total 1320 ml 1380 ml Output Total 900 ml 450 ml Balance 420 ml 930 ml Intake Oral 420 ml 180 ml IV Total 900 ml 1200 ml Output Urine Total 900 ml 450 ml Critical Care - Objective Last 24 Hour Vital Signs Date Time Temp Pulse Resp B/P (MAP) Pulse Ox O2 Delivery O2 Flow Rate FiO2 02/03/20 07:57 100 Room Air 21 02/03/20 07:56 63 18 100 Room Air 21 69 18 97 02/03/20 06:17 153/69 02/03/20 06:00 65 14 153/69 (97) 100 02/03/20 05:00 62 17 154/72 (99) 98 02/03/20 04:00 98.9 63 12 137/63 (87) 100 02/03/20 04:00 Room Air 02/03/20 04:00 64 02/03/20 03:22 66 18 100 Room Air 21 64 18 98 02/03/20 03:00 64 14 142/71 (94) 100 02/03/20 02:29 144/75 02/03/20 02:00 64 15 144/75 (98) 99 02/03/20 01:00 66 18 161/84 (109) 100 02/03/20 00:58 74 18 100 Room Air 21 02/03/20 00:00 98.4 63 16 146/92 (110) 99 02/03/20 00:00 Room Air 02/03/20 00:00 62 02/02/20 23:00 63 4 137/78 (97) 99 02/02/20 22:36 67 18 100 Room Air 21 64 18 100 02/02/20 22:00 72 20 184/88 (120) 97 02/02/20 21:00 70 14 168/77 (107) 100 02/02/20 20:53 71 155/80 02/02/20 20:00 98.0 63 15 129/63 (85) 100 02/02/20 20:00 63 02/02/20 20:00 Room Air 02/02/20 19:00 64 16 148/76 (100) 97 02/02/20 18:48 100 Room Air 21 02/02/20 18:46 69 18 100 Room Air 21 66 15 100 02/02/20 18:00 65 16 140/73 (95) 100 02/02/20 17:00 75 16 183/84 (117) 100 02/02/20 16:00 Room Air 02/02/20 16:00 97.6 69 18 145/82 (103) 97 02/02/20 16:00 73 02/02/20 15:00 73 19 148/102 (117) 97 02/02/20 14:55 85 20 100 Room Air 21 82 18 94 02/02/20 14:00 69 18 145/82 (103) 97 02/02/20 13:00 69 16 135/71 (92) 100 02/02/20 12:00 98.2 69 18 149/75 (99) 98 02/02/20 12:00 Room Air 02/02/20 12:00 67 02/02/20 11:00 66 14 126/71 (89) 97 02/02/20 10:25 84 20 100 Room Air 21 86 20 95 02/02/20 10:00 67 14 116/93 (101) 97 Labs: Labs Test 01/31/20 17:18 01/31/20 18:33 01/31/20 22:35 01/31/20 23:20 POC Whole Blood Glucose 479 MG/DL (74-106) 434 MG/DL (74-106) Troponin I 2.073 ng/mL (0.000-0.056) Test 02/01/20 04:00 02/01/20 23:20 02/02/20 04:00 02/02/20 06:23 White Blood Count 17.9 K/UL (4.8-10.8) 25.3 K/UL (4.8-10.8) Red Blood Count 2.53 M/UL (4.20-5.40) 3.50 M/UL (4.20-5.40) Hemoglobin 7.4 G/DL (12.0-16.0) 10.5 G/DL (12.0-16.0) Hematocrit 24.7 % (37.0-47.0) 33.5 % (37.0-47.0) Mean Corpuscular Volume 98 FL (80-99) 96 FL (80-99) Mean Corpuscular Hemoglobin 29.1 PG (27.0-31.0) 30.0 PG (27.0-31.0) Mean Corpuscular Hemoglobin Concent 29.8 G/DL (32.0-36.0) 31.4 G/DL (32.0-36.0) Red Cell Distribution Width 15.2 % (11.6-14.8) 15.1 % (11.6-14.8) Platelet Count 428 K/UL (150-450) 392 K/UL (150-450) Mean Platelet Volume 5.6 FL (6.5-10.1) 5.7 FL (6.5-10.1) Neutrophils (%) (Auto) % (45.0-75.0) % (45.0-75.0) Lymphocytes (%) (Auto) % (20.0-45.0) % (20.0-45.0) Monocytes (%) (Auto) % (1.0-10.0) % (1.0-10.0) Eosinophils (%) (Auto) % (0.0-3.0) % (0.0-3.0) Basophils (%) (Auto) % (0.0-2.0) % (0.0-2.0) Differential Total Cells Counted 100 100 Neutrophils % (Manual) 95 % (45-75) 89 % (45-75) Lymphocytes % (Manual) 3 % (20-45) 4 % (20-45) Monocytes % (Manual) 2 % (1-10) 7 % (1-10) Eosinophils % (Manual) 0 % (0-3) 0 % (0-3) Basophils % (Manual) 0 % (0-2) 0 % (0-2) Band Neutrophils 0 % (0-8) 0 % (0-8) Platelet Estimate Adequate Adequate Platelet Morphology Normal Normal Hypochromasia 1+ 1+ Anisocytosis 1+ 1+ Sodium Level 140 MMOL/L (136-145) 144 MMOL/L (136-145) Potassium Level 4.6 MMOL/L (3.5-5.1) 4.0 MMOL/L (3.5-5.1) Chloride Level 106 MMOL/L (98-107) 110 MMOL/L (98-107) Carbon Dioxide Level 27 MMOL/L (21-32) 25 MMOL/L (21-32) Anion Gap 7 mmol/L (5-15) 9 mmol/L (5-15) Blood Urea Nitrogen 75 mg/dL (7-18) 63 mg/dL (7-18) Creatinine 1.4 MG/DL (0.55-1.30) 1.2 MG/DL (0.55-1.30) Estimat Glomerular Filtration Rate 46.5 mL/min (>60) 55.6 mL/min (>60) Glucose Level 392 MG/DL (74-106) 238 MG/DL (74-106) Calcium Level 7.5 MG/DL (8.5-10.1) 8.0 MG/DL (8.5-10.1) Phosphorus Level 2.7 MG/DL (2.5-4.9) Total Bilirubin 1.1 MG/DL (0.2-1.0) Direct Bilirubin 0.7 MG/DL (0.0-0.3) Aspartate Amino Transf (AST/SGOT) 307 U/L (15-37) Alanine Aminotransferase (ALT/SGPT) 284 U/L (12-78) Alkaline Phosphatase 337 U/L (46-116) Troponin I 1.339 ng/mL (0.000-0.056) Total Protein 6.4 G/DL (6.4-8.2) Albumin 2.2 G/DL (3.4-5.0) Globulin 4.2 g/dL Albumin/Globulin Ratio 0.5 (1.0-2.7) Test 02/02/20 23:45 02/03/20 04:00 White Blood Count 18.2 K/UL (4.8-10.8) Red Blood Count 3.30 M/UL (4.20-5.40) Hemoglobin 10.0 G/DL (12.0-16.0) Hematocrit 31.9 % (37.0-47.0) Mean Corpuscular Volume 97 FL (80-99) Mean Corpuscular Hemoglobin 30.2 PG (27.0-31.0) Mean Corpuscular Hemoglobin Concent 31.2 G/DL (32.0-36.0) Red Cell Distribution Width 15.7 % (11.6-14.8) Platelet Count 331 K/UL (150-450) Mean Platelet Volume 6.5 FL (6.5-10.1) Neutrophils (%) (Auto) % (45.0-75.0) Lymphocytes (%) (Auto) % (20.0-45.0) Monocytes (%) (Auto) % (1.0-10.0) Eosinophils (%) (Auto) % (0.0-3.0) Basophils (%) (Auto) % (0.0-2.0) Differential Total Cells Counted 100 Neutrophils % (Manual) 91 % (45-75) Lymphocytes % (Manual) 2 % (20-45) Monocytes % (Manual) 7 % (1-10) Eosinophils % (Manual) 0 % (0-3) Basophils % (Manual) 0 % (0-2) Band Neutrophils 0 % (0-8) Platelet Estimate Adequate Platelet Morphology Normal Polychromasia 1+ Hypochromasia 1+ Anisocytosis 1+ Macrocytosis 1+ Sodium Level 149 MMOL/L (136-145) Potassium Level 4.2 MMOL/L (3.5-5.1) Chloride Level 114 MMOL/L (98-107) Carbon Dioxide Level 23 MMOL/L (21-32) Anion Gap 12 mmol/L (5-15) Blood Urea Nitrogen 50 mg/dL (7-18) Creatinine 1.2 MG/DL (0.55-1.30) Estimat Glomerular Filtration Rate 55.6 mL/min (>60) Glucose Level 149 MG/DL (74-106) Calcium Level 8.0 MG/DL (8.5-10.1) Total Bilirubin 1.4 MG/DL (0.2-1.0) Direct Bilirubin 1.0 MG/DL (0.0-0.3) Aspartate Amino Transf (AST/SGOT) 118 U/L (15-37) Alanine Aminotransferase (ALT/SGPT) 204 U/L (12-78) Alkaline Phosphatase 278 U/L (46-116) Total Creatine Kinase 39 U/L (26-308) Troponin I 0.841 ng/mL (0.000-0.056) Total Protein 6.8 G/DL (6.4-8.2) Albumin 2.1 G/DL (3.4-5.0) Globulin 4.7 g/dL Albumin/Globulin Ratio 0.4 (1.0-2.7) Objective: WDWN ill appearing reduced breath sounds bilaterally without rhonchi or wheeze [id number] without MRG NABS nontender no HSM no CCE nonfocal Accucheck: 164 Germán Feliz MD Feb 03, 2020 09:42
--- NOTE | 2020-02-03 09:50 | NUR ---
NURSE NOTES: Pt was seen by Dr. Feliz. aware regarding lab results. Order was received to DC IV fluid NS.
[2020-02-03] MEDS: Pantoprazole Inj IVP SCH ×2 (09:53→20:43)
[2020-02-03] MEDS: Imdur 30mg tab ORAL SCH (09:53)
[2020-02-03] MEDS: Heparin 5000 units/ml inj SUBQ SCH ×2 (09:53→20:45)
[2020-02-03] MEDS: Aspirin Baby 81mg ORAL SCH (09:53)
[2020-02-03] MEDS: Metoprolol Tartrate 50mg tab ORAL SCH ×2 (09:58→20:43)
--- NOTE | 2020-02-03 10:00 | NUR ---
NURSE NOTES: Pt was administered Morphine 2mg IVP per PRN order for severe pain, as she reports having generalized body aches. VS remain stable. Pt consumed 50% of breakfast meal, was assisted with feeding. IV fluid NS was DC'd per MD order.
[2020-02-03] MEDS: Levemir Flexpen SUBQ SCH ×2 (10:57→18:00)
--- NOTE | 2020-02-03 10:59 | Infectious Diseases Prog Note ---
Assessment/Plan Assessment/Plan A 1. cavitary pneumonia sputum AFB negative x 3 2. staph aureus (MRSA) sepsis r/o endocarditis 3. diabetes mellitus 4. hypertension 5. COPD 6. renal failure 7. aortic stenosis 8. Anemia 9. CHF, EF=40-45% P 1. Continue linezolid 2. consider PORFIRIO 3. will f/u cocci serology 4. Jairon was D/W RN Subjective ROS Limited/Unobtainable: Yes Constitutional: Denies: fever Respiratory: Reports: productive cough Allergies: Coded Allergies: No Known Allergies (Unverified , 07/30/15) Objective Last 24 Hour Vital Signs Date Time Temp Pulse Resp B/P (MAP) Pulse Ox O2 Delivery O2 Flow Rate FiO2 02/03/20 10:23 98.9 02/03/20 10:00 81 18 160/82 (108) 100 02/03/20 09:58 63 153/69 02/03/20 09:57 63 153/69 02/03/20 09:53 153/69 02/03/20 09:00 81 18 175/85 (115) 100 02/03/20 08:00 Room Air 02/03/20 08:00 98.1 74 14 166/86 (112) 100 02/03/20 07:57 100 Room Air 21 02/03/20 07:56 63 18 100 Room Air 21 69 18 97 02/03/20 07:00 69 14 152/68 (96) 98 02/03/20 06:17 153/69 02/03/20 06:00 65 14 153/69 (97) 100 02/03/20 05:00 62 17 154/72 (99) 98 02/03/20 04:00 98.9 63 12 137/63 (87) 100 02/03/20 04:00 Room Air 02/03/20 04:00 64 02/03/20 03:22 66 18 100 Room Air 21 64 18 98 02/03/20 03:00 64 14 142/71 (94) 100 02/03/20 02:29 144/75 02/03/20 02:00 64 15 144/75 (98) 99 02/03/20 01:00 66 18 161/84 (109) 100 02/03/20 00:58 74 18 100 Room Air 21 02/03/20 00:00 98.4 63 16 146/92 (110) 99 02/03/20 00:00 Room Air 02/03/20 00:00 62 02/02/20 23:00 63 4 137/78 (97) 99 02/02/20 22:36 67 18 100 Room Air 21 64 18 100 02/02/20 22:00 72 20 184/88 (120) 97 02/02/20 21:00 70 14 168/77 (107) 100 02/02/20 20:53 71 155/80 02/02/20 20:00 98.0 63 15 129/63 (85) 100 02/02/20 20:00 63 02/02/20 20:00 Room Air 02/02/20 19:00 64 16 148/76 (100) 97 02/02/20 18:48 100 Room Air 21 02/02/20 18:46 69 18 100 Room Air 21 66 15 100 02/02/20 18:00 65 16 140/73 (95) 100 02/02/20 17:00 75 16 183/84 (117) 100 02/02/20 16:00 Room Air 02/02/20 16:00 97.6 69 18 145/82 (103) 97 02/02/20 16:00 73 02/02/20 15:00 73 19 148/102 (117) 97 02/02/20 14:55 85 20 100 Room Air 21 82 18 94 02/02/20 14:00 69 18 145/82 (103) 97 02/02/20 13:00 69 16 135/71 (92) 100 02/02/20 12:00 98.2 69 18 149/75 (99) 98 02/02/20 12:00 Room Air 02/02/20 12:00 67 02/02/20 11:00 66 14 126/71 (89) 97 Height (Feet): 5 Height (Inches): 1.00 Weight (Pounds): 168 General Appearance: no acute distress HEENT: mucous membranes moist Respiratory/Chest: lungs clear Cardiovascular: normal rate Abdomen: soft, non tender Extremities: no edema Neurologic/Psychiatric: alert, responsive Laboratory Tests Test 02/02/20 23:45 02/03/20 04:00 POC Whole Blood Glucose Pending White Blood Count 18.2 K/UL (4.8-10.8) H Red Blood Count 3.30 M/UL (4.20-5.40) L Hemoglobin 10.0 G/DL (12.0-16.0) L Hematocrit 31.9 % (37.0-47.0) L Mean Corpuscular Volume 97 FL (80-99) Mean Corpuscular Hemoglobin 30.2 PG (27.0-31.0) Mean Corpuscular Hemoglobin Concent 31.2 G/DL (32.0-36.0) L Red Cell Distribution Width 15.7 % (11.6-14.8) H Platelet Count 331 K/UL (150-450) Mean Platelet Volume 6.5 FL (6.5-10.1) Neutrophils (%) (Auto) % (45.0-75.0) Lymphocytes (%) (Auto) % (20.0-45.0) Monocytes (%) (Auto) % (1.0-10.0) Eosinophils (%) (Auto) % (0.0-3.0) Basophils (%) (Auto) % (0.0-2.0) Differential Total Cells Counted 100 Neutrophils % (Manual) 91 % (45-75) H Lymphocytes % (Manual) 2 % (20-45) L Monocytes % (Manual) 7 % (1-10) Eosinophils % (Manual) 0 % (0-3) Basophils % (Manual) 0 % (0-2) Band Neutrophils 0 % (0-8) Platelet Estimate Adequate Platelet Morphology Normal Polychromasia 1+ Hypochromasia 1+ Anisocytosis 1+ Macrocytosis 1+ Sodium Level 149 MMOL/L (136-145) H Potassium Level 4.2 MMOL/L (3.5-5.1) Chloride Level 114 MMOL/L (98-107) H Carbon Dioxide Level 23 MMOL/L (21-32) Anion Gap 12 mmol/L (5-15) Blood Urea Nitrogen 50 mg/dL (7-18) H Creatinine 1.2 MG/DL (0.55-1.30) Estimat Glomerular Filtration Rate 55.6 mL/min (>60) Glucose Level 149 MG/DL (74-106) H Calcium Level 8.0 MG/DL (8.5-10.1) L Total Bilirubin 1.4 MG/DL (0.2-1.0) H Direct Bilirubin 1.0 MG/DL (0.0-0.3) H Aspartate Amino Transf (AST/SGOT) 118 U/L (15-37) H Alanine Aminotransferase (ALT/SGPT) 204 U/L (12-78) H Alkaline Phosphatase 278 U/L (46-116) H Total Creatine Kinase 39 U/L (26-308) Troponin I 0.841 ng/mL (0.000-0.056) Total Protein 6.8 G/DL (6.4-8.2) Albumin 2.1 G/DL (3.4-5.0) L Globulin 4.7 g/dL Albumin/Globulin Ratio 0.4 (1.0-2.7) L Hepatitis A IgM Antibody Pending Hepatitis B Surface Antigen Pending Hepatitis B Core IgM Antibody Pending Hepatitis C Antibody Pending Herpes Simplex Virus I IgM Ab (IFA) Pending Herpes Simplex Virus II IgM Ab (IFA Pending Monoscreen Pending Current Medications Medications (Trade) Dose Ordered Sig/Ivana Route PRN Reason Start Time Stop Time Status Last Admin Dose Admin Acetaminophen (Tylenol) 650 mg Q6H PRN ORAL MILD PAIN, FEVER 01/28/20 22:45 02/27/20 22:44 01/29/20 18:17 Acetaminophen/ Hydrocodone Bitart (Tabor 10/325) 1 tab Q4H PRN ORAL breakthrough pain 01/30/20 10:43 02/06/20 10:42 02/03/20 00:28 Amlodipine Besylate (Norvasc) 10 mg DAILY ORAL 02/01/20 09:00 03/02/20 08:59 02/03/20 09:57 Aspirin (ASA) 81 mg DAILY ORAL 01/29/20 09:00 03/14/20 08:59 02/03/20 09:53 Chlorhexidine Gluconate (Divina-Hex 2%) 1 applic DAILY@1999 TOPIC 01/29/20 20:00 04/28/20 19:59 02/02/20 20:52 Dextrose (Dextrose 50%) 25 ml Q30M PRN IV Hypoglycemia 01/28/20 22:45 04/27/20 22:44 Dextrose (Dextrose 50%) 50 ml Q30M PRN IV Hypoglycemia 01/28/20 22:45 04/27/20 22:44 Epoetin Haseeb (Epoetin Haseeb(ESRD on dialysis)) 8,000 unit WED- SUBQ 01/31/20 21:00 04/30/20 20:59 01/31/20 22:54 Heparin Sodium (Porcine) (Heparin 5000 units/ml) 5,000 units EVERY 12 HOURS SUBQ 01/29/20 09:00 03/14/20 08:59 02/03/20 09:53 Hydralazine HCl (Apresoline) 10 mg Q6HR PRN IV SBP>180 01/28/20 22:45 04/27/20 22:44 02/02/20 06:20 Insulin Aspart (NovoLOG) Q6HR SUBQ 01/29/20 00:00 04/28/20 00:00 02/03/20 05:29 Insulin Detemir (Levemir) 10 units BID SUBQ 02/02/20 09:00 05/01/20 08:59 02/02/20 17:35 Ipratropium Edwards (Atrovent) 500 mcg Q4HRT HHN 02/03/20 03:00 02/08/20 02:59 02/03/20 07:56 Isosorbide Mononitrate (Imdur) 30 mg DAILY ORAL 02/02/20 09:00 03/03/20 08:59 02/03/20 09:53 Linezolid 300 ml @ 300 mls/hr Q12HR IVPB 01/31/20 13:00 02/07/20 12:59 02/03/20 09:56 Metoprolol Tartrate (Lopressor) 50 mg Q12HR ORAL 02/02/20 09:00 05/02/20 08:59 02/03/20 09:58 Morphine Sulfate (Morphine Sulfate) 2 mg Q4H PRN IVP Severe Pain (Pain Scale 7-10) 01/29/20 22:30 02/05/20 22:29 02/03/20 09:53 Nitroglycerin (Ntg) 0.4 mg Q5M PRN SL Prn Chest Pain 02/01/20 08:00 03/02/20 07:59 02/03/20 06:17 Ondansetron HCl (Zofran) 4 mg Q6H PRN IVP Nausea & Vomiting 01/28/20 22:45 02/27/20 22:44 02/01/20 18:10 Pantoprazole (Protonix) 40 mg EVERY 12 HOURS IVP 02/01/20 22:00 03/02/20 21:59 02/03/20 09:53 Anderson Durham MD Feb 03, 2020 10:59
--- NOTE | 2020-02-03 11:00 | NUR ---
NURSE NOTES: Pt was seen by Dr. Pérez. No new orders were received at this time.
--- NOTE | 2020-02-03 12:35 | NUR ---
TRANSFER TO FLOOR: Patient transferred to Tele per MD order, was transferred via hospital bed while being monitored on Tele/box. Transfer report was given to Bobbi RN. Pt's belonging's list was checked and signed with the receiving nurse in front of the pt. Skin is intact. Spoke with pt's daughter over the phone and updated on pt's current status including pt's transfer. Endorsed plan of care.
--- NOTE | 2020-02-03 13:03 | NUR ---
NURSE NOTES:Received report from charge nurse that patient was transferred from ICU. pt is alert and awake in bed and verbally responsive. no acute distress noted at this time, will follow plan of care. call light is within reach.
--- NOTE | 2020-02-03 17:05 | General Progress Note ---
Subjective Allergies: Coded Allergies: No Known Allergies (Unverified , 07/30/15) Subjective Above noted seen in ICU - subsequently transferred to Tele denies abd pain appetite still suboptimal LFT lower today ultrasound noted --> fatty and mildly nodular liver Objective Last 24 Hour Vital Signs Date Time Temp Pulse Resp B/P (MAP) Pulse Ox O2 Delivery O2 Flow Rate FiO2 02/03/20 13:00 97.7 63 20 130/67 (88) 100 02/03/20 12:00 Room Air 02/03/20 12:00 72 02/03/20 12:00 98.2 64 17 135/69 (91) 99 02/03/20 11:14 59 18 100 Room Air 21 02/03/20 11:13 61 18 100 Room Air 21 59 16 99 02/03/20 11:00 61 16 132/66 (88) 99 02/03/20 10:23 98.9 02/03/20 10:00 81 18 160/82 (108) 100 02/03/20 09:58 63 153/69 02/03/20 09:57 63 153/69 02/03/20 09:53 153/69 02/03/20 09:00 81 18 175/85 (115) 100 02/03/20 08:00 Room Air 02/03/20 08:00 98.1 74 14 166/86 (112) 100 02/03/20 08:00 73 02/03/20 07:57 100 Room Air 21 02/03/20 07:56 63 18 100 Room Air 21 69 18 97 02/03/20 07:00 69 14 152/68 (96) 98 02/03/20 06:17 153/69 02/03/20 06:00 65 14 153/69 (97) 100 02/03/20 05:00 62 17 154/72 (99) 98 02/03/20 04:00 98.9 63 12 137/63 (87) 100 02/03/20 04:00 Room Air 02/03/20 04:00 64 02/03/20 03:22 66 18 100 Room Air 21 64 18 98 02/03/20 03:00 64 14 142/71 (94) 100 02/03/20 02:29 144/75 02/03/20 02:00 64 15 144/75 (98) 99 11/7/20 01:00 66 18 161/84 (109) 100 02/03/20 00:58 74 18 100 Room Air 21 02/03/20 00:00 98.4 63 16 146/92 (110) 99 02/03/20 00:00 Room Air 02/03/20 00:00 62 02/02/20 23:00 63 4 137/78 (97) 99 02/02/20 22:36 67 18 100 Room Air 21 64 18 100 02/02/20 22:00 72 20 184/88 (120) 97 02/02/20 21:00 70 14 168/77 (107) 100 02/02/20 20:53 71 155/80 02/02/20 20:00 98.0 63 15 129/63 (85) 100 02/02/20 20:00 63 02/02/20 20:00 Room Air 02/02/20 19:00 64 16 148/76 (100) 97 02/02/20 18:48 100 Room Air 21 02/02/20 18:46 69 18 100 Room Air 21 66 15 100 02/02/20 18:00 65 16 140/73 (95) 100 02/02/20 17:00 75 16 183/84 (117) 100 Intake and Output 02/02/20 02/03/20 19:00 07:00 Intake Total 1320 ml 1380 ml Output Total 900 ml 450 ml Balance 420 ml 930 ml Intake Oral 420 ml 180 ml IV Total 900 ml 1200 ml Output Urine Total 900 ml 450 ml Laboratory Tests 02/02/20 23:45: POC Whole Blood Glucose [Pending] 02/03/20 04:00: White Blood Count 18.2H, Red Blood Count 3.30L, Hemoglobin 10.0L, Hematocrit 31.9L, Mean Corpuscular Volume 97, Mean Corpuscular Hemoglobin 30.2, Mean Corpuscular Hemoglobin Concent 31.2L, Red Cell Distribution Width 15.7H, Platelet Count 331, Mean Platelet Volume 6.5, Neutrophils (%) (Auto) , Lymphocytes (%) (Auto) , Monocytes (%) (Auto) , Eosinophils (%) (Auto) , Ba sophils (%) (Auto) , Differential Total Cells Counted 100, Neutrophils % (Manual) 91H, Lymphocytes % (Manual) 2L, Monocytes % (Manual) 7, Eosinophils % (Manual) 0, Basophils % (Manual) 0, Band Neutrophils 0, Platelet Estimate Adequate, Platelet Morphology Normal, Polychromasia 1+, Hypochromasia 1+, Anisocytosis 1+, Macrocytosis 1+, Sodium Level 149H, Potassium Level 4.2, Chloride Level 114H, Carbon Dioxide Level 23, Anion Gap 12, Blood Urea Nitrogen 50H, Creatinine 1.2, Estimat Glomerular Filtration Rate 55.6, Glucose Level 149H , Calcium Level 8.0L, Total Bilirubin 1.4H, Direct Bilirubin 1.0H, Aspartate Amino Transf (AST/SGOT) 118H, Alanine Aminotransferase (ALT/SGPT) 204H, Alkaline Phosphatase 278H, Total Creatine Kinase 39, Troponin I 0.841H, Total Protein 6.8, Albumin 2.1L, Globulin 4.7, Albumin/Globulin Ratio 0.4L, Hepatitis A IgM Antibody [Pending], Hepatitis B Surface Antigen [Pending], Hepatitis B Core IgM Antibody [Pending], Hepatitis C Antibody [Pending], Herpes Simplex Virus I IgM Ab (IFA) [Pending], Herpes Simplex Virus II IgM Ab (IFA [Pending], Monoscreen [Pending] Height (Feet): 5 Height (Inches): 1.00 Weight (Pounds): 168 Objective WDWN NCAT supple CTA RR Abd soft ND no edema Assessment/Plan Assessment/Plan: Assessment - abnormal LFT, ? etiology - Swallowing Sx - dysphagia, regurgitation, nausea - HTN - COPD - Lung mass - DM - PSVT Recommendations - po as tolerated - UGI next week - MRCP next week - follow LFT - follow up hepatitis serologies - PPI - Elevate HOB Feliberto Pérez MD Feb 03, 2020 17:04
--- NOTE | 2020-02-03 18:00 | Cardiology Progress Note ---
Subjective DATE OF SERVICE: Feb 03, 2020 Less congestion and SOB. O2 requirements have decreased. She is out of ICU today No recurrent CP, but troponin peaked at 4.65, and now its 0.8. 2D Echo reviewed - EF 45%, severe pulmonary hypertension, mild-moderate AV stenosis with ESTHER 1.5cm2 CXR (02/02) with cavitary lesion and mild congestive changes. Objective Last 24 Hour Vital Signs Date Time Temp Pulse Resp B/P (MAP) Pulse Ox O2 Delivery O2 Flow Rate FiO2 02/03/20 16:00 97.9 69 115/69 (84) 02/03/20 13:00 97.7 63 20 130/67 (88) 100 02/03/20 12:00 Room Air 02/03/20 12:00 72 02/03/20 12:00 98.2 64 17 135/69 (91) 99 02/03/20 11:14 59 18 100 Room Air 21 02/03/20 11:13 61 18 100 Room Air 21 59 16 99 02/03/20 11:00 61 16 132/66 (88) 99 02/03/20 10:23 98.9 02/03/20 10:00 81 18 160/82 (108) 100 02/03/20 09:58 63 153/69 02/03/20 09:57 63 153/69 02/03/20 09:53 153/69 02/03/20 09:00 81 18 175/85 (115) 100 02/03/20 08:00 Room Air 02/03/20 08:00 98.1 74 14 166/86 (112) 100 02/03/20 08:00 73 02/03/20 07:57 100 Room Air 02/03/20 07:56 63 18 100 Room Air 21 69 18 97 02/03/20 07:00 69 14 152/68 (96) 98 02/03/20 06:17 153/69 02/03/20 06:00 65 14 153/69 (97) 100 02/03/20 05:00 62 17 154/72 (99) 98 02/03/20 04:00 98.9 63 12 137/63 (87) 100 02/03/20 04:00 Room Air 02/03/20 04:00 64 02/03/20 03:22 66 18 100 Room Air 21 64 18 98 02/03/20 03:00 64 14 142/71 (94) 100 02/03/20 02:29 144/75 02/03/20 02:00 64 15 144/75 (98) 99 02/03/20 01:00 66 18 161/84 (109) 100 02/03/20 00:58 74 18 100 Room Air 21 02/03/20 00:00 98.4 63 16 146/92 (110) 99 02/03/20 00:00 Room Air 02/03/20 00:00 62 02/02/20 23:00 63 4 137/78 (97) 99 02/02/20 22:36 67 18 100 Room Air 21 64 18 100 02/02/20 22:00 72 20 184/88 (120) 97 02/02/20 21:00 70 14 168/77 (107) 100 02/02/20 20:53 71 155/80 02/02/20 20:00 98.0 63 15 129/63 (85) 100 02/02/20 20:00 63 02/02/20 20:00 Room Air 02/02/20 19:00 64 16 148/76 (100) 97 02/02/20 18:48 100 Room Air 21 02/02/20 18:46 69 18 100 Room Air 21 66 15 100 02/02/20 18:00 65 16 140/73 (95) 100 HEENT: normal ENT inspection RHYTHM: NSR LUNGS: bilat. rhonchi and rales CARDIAC: systolic murmur - 1/6 at base ABDOMEN: normal bowel sounds, non tender, soft EXTREMITIES: normal range of motion, non-pitting Laboratory Tests Test 02/02/20 23:45 02/03/20 04:00 02/03/20 17:08 POC Whole Blood Glucose Pending 290 MG/DL (74-106) H White Blood Count 18.2 K/UL (4.8-10.8) H Red Blood Count 3.30 M/UL (4.20-5.40) L Hemoglobin 10.0 G/DL (12.0-16.0) L Hematocrit 31.9 % (37.0-47.0) L Mean Corpuscular Volume 97 FL (80-99) Mean Corpuscular Hemoglobin 30.2 PG (27.0-31.0) Mean Corpuscular Hemoglobin Concent 31.2 G/DL (32.0-36.0) L Red Cell Distribution Width 15.7 % (11.6-14.8) H Platelet Count 331 K/UL (150-450) Mean Platelet Volume 6.5 FL (6.5-10.1) Neutrophils (%) (Auto) % (45.0-75.0) Lymphocytes (%) (Auto) % (20.0-45.0) Monocytes (%) (Auto) % (1.0-10.0) Eosinophils (%) (Auto) % (0.0-3.0) Basophils (%) (Auto) % (0.0-2.0) Differential Total Cells Counted 100 Neutrophils % (Manual) 91 % (45-75) H Lymphocytes % (Manual) 2 % (20-45) L Monocytes % (Manual) 7 % (1-10) Eosinophils % (Manual) 0 % (0-3) Basophils % (Manual) 0 % (0-2) Band Neutrophils 0 % (0-8) Platelet Estimate Adequate Platelet Morphology Normal Polychromasia 1+ Hypochromasia 1+ Anisocytosis 1+ Macrocytosis 1+ Sodium Level 149 MMOL/L (136-145) H Potassium Level 4.2 MMOL/L (3.5-5.1) Chloride Level 114 MMOL/L (98-107) H Carbon Dioxide Level 23 MMOL/L (21-32) Anion Gap 12 mmol/L (5-15) Blood Urea Nitrogen 50 mg/dL (7-18) H Creatinine 1.2 MG/DL (0.55-1.30) Estimat Glomerular Filtration Rate 55.6 mL/min (>60) Glucose Level 149 MG/DL (74-106) H Calcium Level 8.0 MG/DL (8.5-10.1) L Total Bilirubin 1.4 MG/DL (0.2-1.0) H Direct Bilirubin 1.0 MG/DL (0.0-0.3) H Aspartate Amino Transf (AST/SGOT) 118 U/L (15-37) H Alanine Aminotransferase (ALT/SGPT) 204 U/L (12-78) H Alkaline Phosphatase 278 U/L (46-116) H Total Creatine Kinase 39 U/L (26-308) Troponin I 0.841 ng/mL (0.000-0.056) Total Protein 6.8 G/DL (6.4-8.2) Albumin 2.1 G/DL (3.4-5.0) L Globulin 4.7 g/dL Albumin/Globulin Ratio 0.4 (1.0-2.7) L Cytomegalovirus DNA Qual (PCR) Pending Hepatitis A IgM Antibody Pending Hepatitis B Surface Antigen Pending Hepatitis B Core IgM Antibody Pending Hepatitis C Antibody Pending Herpes Simplex Virus I IgM Ab (IFA) Pending Herpes Simplex Virus II IgM Ab (IFA Pending Monoscreen Pending Assessment/Plan Assessment/Plan Acute [place] Lung mass - prior benign biopsy Pneumonia with cavitation Mild-mod degenerative aortic stenosis Acute renal failure Pulmonary hypertension (est PAsyst 58mmHg) Hypertension with labile BP range. Anemia Dehydration/hypernatremia Orders updated Meds reviewed. Free water replacement ordered. Discussed with ICU staff Evans Trinidad MD Feb 03, 2020 18:00
--- NOTE | 2020-02-03 19:45 | NUR ---
HAND-OFF: Report given to nalini.
--- NOTE | 2020-02-03 19:57 | NUR ---
NURSE NOTES: Report received from Cullen BUSCH. Patient is noted to be awake and alert x 1. Patient is noted to be on room air, does not appear to be in respiratory distress at this time. patient has no complaints at this time. Patient is noted to have indwelling Flores catheter draining clear yellow urine. Patient is noted to have have right femoral tunnel catheter. Was endorsed to Gerry BUSCH that patient was a recent transfer to the telemetry unit from ICU. Was endorsed to Gerry BUSCH that patient is a high fall risk due to patient forgetting limitations at times and attempts to get up out of bed alone. assistant project engineer aware, patient in room near nursing station. Bed is locked, alarmed, and in lowest position. call light in reach. will continue to follow plan of care.
[2020-02-03] MEDS: Dyna-Hex 2% Top Sol 2oz TOPIC SCH (20:43)
[2020-02-04] VITALS: BP 169/82
--- NOTE | 2020-02-04 00:24 | NUR ---
NURSE NOTES: It is noted that patient has blood pressure of 169/82 with a heart rate of 66 beats per minute. Note that patient has PRN Hydralazine, however, doctors orders state to only administer for SBP greater than 180. Will continue to monitor vital signs and administer medications as needed as ordered by doctor orders.
--- NOTE | 2020-02-04 00:50 | NUR ---
NURSE NOTES: Gerry BUSCH is unable to find Novalog Insulin Pen for patient. Insulin pen is not in medication room, not in patient room, and not with patient belongings. It is noted that patient was recently transferred from ICU, Gerry BUSCH checked ICU and the insulin pen was not found to be there either. It was endorsed to Gerry BUSCH by Cullen BUSCH that the patient refused to take insulin at 1800. Gerry BUSCH made charge nurse Toshia aware and powerhouse mechanic apprentice aware. Call placed to [employer] and new insulin pen will be obtained to treat blood glucose level of 330.
[2020-02-04] MEDS: NovoLOG Insulin Flexpen SUBQ SCH ×4 (01:07→17:20)
[2020-02-04] MEDS: Ipratropium 0.02% Inh Soln 2.5ml UD HHN SCH ×6 (03:34→23:00)
[2020-02-04] MEDS: Morphine Sulfate 2mg/ml Inj(IV/IM USE ONLY) IVP PRN ×2 (03:50→08:16)
[2020-02-04 04:34] LABS: HEMATOCRIT 31.1 % (37.0-47.0); HEMOGLOBIN 9.7 G/DL (12.0-16.0); MEAN CORPUSCULAR VOLUME 97 FL (80-99); PLATELET COUNT 276 K/UL (150-450); RED CELL DISTRIBUTION WIDTH 15.8 % (11.6-14.8); WHITE BLOOD COUNT 14.7 K/UL (4.8-10.8)
--- NOTE | 2020-02-04 04:46 | NUR ---
NURSE NOTES: Dressing from tunnel catheter removed, area cleaned, new dressing applied.
[2020-02-04 04:47] VITALS: BP 151/78
[2020-02-04 04:48] LABS: ALBUMIN 2.1 G/DL (3.4-5.0); ALBUMIN/GLOBULIN RATIO 0.5 (1.0-2.7); CREATININE 1.3 MG/DL (0.55-1.30); POTASSIUM 4.3 MMOL/L (3.5-5.1)
--- NOTE | 2020-02-04 07:11 | NUR ---
NURSE HAND-OFF REPORT: Important Events on Shift: Patient required PRN medication throughout the night for back and neck pain. Tunnel Catheter dressing changed this morning. Patient is requesting to go home today. required insulin coverage. Patient Status: full code Diet: CCHO M Pending Orders: none Pending Results/Labs:none Pending MD notification:none Latest Vital Signs: Temperature 98.8 , Pulse 64 , B/P 151 /78 , Respiratory Rate 20 , O2 SAT 96 , Room Air, Vital Sign Comment: Within normal limits. EKG Rhythm: Sinus Rhythm Rhythm change?: N MD Notified?: - MD Response: Latest Pineda Fall Score: 50 Fall Risk: High Risk Safety Measures: Call light Within Reach, Bed Alarm Zone 1, Side Rails Side Rails x3, Bed position Low and Locked. Fall Precautions: Yellow Socks Yellow Gown Door Sign Patient Fall Education Report given to Malka BUSCH.
--- NOTE | 2020-02-04 07:32 | NUR ---
NURSE NOTES: Received patient in bed awake. No SOB or acute distress. Right femoral catheter intact, no bleeding noted. Complaining of pain, on pain mgnt with pain medication, made patient aware of what time pain medication is due. HOB elevated. Bed locked in low position. Call light within reach. Will continue plan of care.
[2020-02-04 07:52] VITALS: BP 177/89
[2020-02-04] MEDS: Pantoprazole Inj IVP SCH ×2 (08:21→20:13)
[2020-02-04] MEDS: Metoprolol Tartrate 50mg tab ORAL SCH (08:22)
[2020-02-04] MEDS: Imdur 30mg tab ORAL SCH (08:22)
[2020-02-04] MEDS: Aspirin Baby 81mg ORAL SCH (08:22)
[2020-02-04] MEDS: Heparin 5000 units/ml inj SUBQ SCH ×2 (08:23→20:14)
[2020-02-04] MEDS: Levemir Flexpen SUBQ SCH ×2 (09:03→17:19)
--- NOTE | 2020-02-04 10:26 | NUR ---
NURSE NOTES: Blood culture positive for gram (+) cocci in clusters, Dr Shahzad Durham aware, no new orders made.
--- NOTE | 2020-02-04 11:03 | Infectious Diseases Prog Note ---
Assessment/Plan Assessment/Plan antibiotics : linezolid A 1. cavitary pneumonia sputum AFB negative x 3 2. MRSA sepsis r/o endocarditis 3. diabetes mellitus 4. hypertension 5. COPD 6. renal failure improving 7. aortic stenosis P 1. d/c linezolid 2. start daptomycin 3. will follow up cultures 4. consider PORFIRIO 5. cocci serology pending Subjective Constitutional: Denies: fever, chills Respiratory: Reports: shortness of breath, dry cough Gastrointestinal/Abdominal: Denies: nausea, vomiting, diarrhea Musculoskeletal: Reports: pain Allergies: Coded Allergies: No Known Allergies (Unverified , 07/30/15) Objective Last 24 Hour Vital Signs Date Time Temp Pulse Resp B/P (MAP) Pulse Ox O2 Delivery O2 Flow Rate FiO2 02/04/20 08:22 103 177/89 02/04/20 08:22 177/89 02/04/20 08:22 103 177/89 02/04/20 08:00 87 02/04/20 07:52 97.5 103 18 177/89 (118) 99 02/04/20 07:26 96 Room Air 21 02/04/20 07:25 86 20 99 Room Air 21 77 24 95 02/04/20 04:47 98.8 64 20 151/78 (102) 96 02/04/20 04:00 65 02/04/20 03:34 75 18 99 Room Air 21 73 18 94 02/04/20 00:00 99.3 66 20 169/82 (111) 100 02/04/20 00:00 67 02/03/20 23:00 66 17 100 Room Air 21 64 18 95 02/03/20 20:43 69 147/86 02/03/20 20:41 75 18 100 Room Air 21 73 16 95 02/03/20 20:40 95 Room Air 21 02/03/20 20:00 69 02/03/20 20:00 98.2 69 16 147/76 (99) 95 02/03/20 16:00 97.9 69 115/69 (84) 02/03/20 16:00 76 02/03/20 13:00 97.7 63 20 130/67 (88) 100 02/03/20 12:00 Room Air 02/03/20 12:00 72 02/03/20 12:00 98.2 64 17 135/69 (91) 99 11/7/20 11:14 59 18 100 Room Air 21 02/03/20 11:13 61 18 100 Room Air 21 59 16 99 02/03/20 11:00 61 16 132/66 (88) 99 Height (Feet): 5 Height (Inches): 1.00 Weight (Pounds): 168 Respiratory/Chest: lungs clear Cardiovascular: normal rate, regular rhythm, no gallop/murmur Abdomen: soft, non tender Extremities: other - + edema bilaterally Microbiology Date/Time Source Procedure Growth Status 02/02/20 14:20 Blood Blood Culture - Preliminary Resulted Laboratory Tests Test 02/03/20 17:08 02/03/20 20:14 02/03/20 23:36 02/04/20 04:05 POC Whole Blood Glucose 290 MG/DL (74-106) H 307 MG/DL (74-106) H 330 MG/DL (74-106) H White Blood Count 14.7 K/UL (4.8-10.8) H Red Blood Count 3.20 M/UL (4.20-5.40) L Hemoglobin 9.7 G/DL (12.0-16.0) L Hematocrit 31.1 % (37.0-47.0) L Mean Corpuscular Volume 97 FL (80-99) Mean Corpuscular Hemoglobin 30.4 PG (27.0-31.0) Mean Corpuscular Hemoglobin Concent 31.3 G/DL (32.0-36.0) L Red Cell Distribution Width 15.8 % (11.6-14.8) H Platelet Count 276 K/UL (150-450) Mean Platelet Volume 6.6 FL (6.5-10.1) Neutrophils (%) (Auto) % (45.0-75.0) Lymphocytes (%) (Auto) % (20.0-45.0) Monocytes (%) (Auto) % (1.0-10.0) Eosinophils (%) (Auto) % (0.0-3.0) Basophils (%) (Auto) % (0.0-2.0) Differential Total Cells Counted 100 Neutrophils % (Manual) 85 % (45-75) H Lymphocytes % (Manual) 8 % (20-45) L Monocytes % (Manual) 6 % (1-10) Eosinophils % (Manual) 0 % (0-3) Basophils % (Manual) 0 % (0-2) Band Neutrophils 1 % (0-8) Platelet Estimate Adequate Platelet Morphology Normal Hypochromasia 1+ Anisocytosis 1+ Sodium Level 144 MMOL/L (136-145) Potassium Level 4.3 MMOL/L (3.5-5.1) Chloride Level 112 MMOL/L (98-107) H Carbon Dioxide Level 24 MMOL/L (21-32) Anion Gap 8 mmol/L (5-15) Blood Urea Nitrogen 45 mg/dL (7-18) H Creatinine 1.3 MG/DL (0.55-1.30) Estimat Glomerular Filtration Rate 50.7 mL/min (>60) Glucose Level 261 MG/DL (74-106) #H Calcium Level 8.0 MG/DL (8.5-10.1) L Total Bilirubin 1.0 MG/DL (0.2-1.0) Aspartate Amino Transf (AST/SGOT) 60 U/L (15-37) H Alanine Aminotransferase (ALT/SGPT) 141 U/L (12-78) H Alkaline Phosphatase 295 U/L (46-116) H Pro-B-Type Natriuretic Peptide 8040 pg/mL (0-125) H Total Protein 6.7 G/DL (6.4-8.2) Albumin 2.1 G/DL (3.4-5.0) L Globulin 4.6 g/dL Albumin/Globulin Ratio 0.5 (1.0-2.7) L Test 02/04/20 05:48 POC Whole Blood Glucose 247 MG/DL (74-106) H Current Medications Medications (Trade) Dose Ordered Sig/Ivana Route PRN Reason Start Time Stop Time Status Last Admin Dose Admin Acetaminophen (Tylenol) 650 mg Q6H PRN ORAL MILD PAIN, FEVER 01/28/20 22:45 02/27/20 22:44 01/29/20 18:17 Acetaminophen/ Hydrocodone Bitart ([place] 10/325) 1 tab Q4H PRN ORAL breakthrough pain 01/30/20 10:43 02/06/20 10:42 02/03/20 17:41 Amlodipine Besylate (Norvasc) 10 mg DAILY ORAL 02/01/20 09:00 03/02/20 08:59 02/04/20 08:22 Aspirin (ASA) 81 mg DAILY ORAL 01/29/20 09:00 03/14/20 08:59 02/04/20 08:22 Chlorhexidine Gluconate (Divina-Hex 2%) 1 applic DAILY@2000 TOPIC 01/29/20 20:00 04/28/20 19:59 02/03/20 20:43 Dextrose (Dextrose 50%) 25 ml Q30M PRN IV Hypoglycemia 01/28/20 22:45 04/27/20 22:44 Dextrose (Dextrose 50%) 50 ml Q30M PRN IV Hypoglycemia 01/28/20 22:45 04/27/20 22:44 Epoetin Haseeb (Epoetin Haseeb(ESRD on dialysis)) 8,000 unit WED-WED-WED SUBQ 01/31/20 21:00 04/30/20 20:59 01/31/20 22:54 Heparin Sodium (Porcine) (Heparin 5000 units/ml) 5,000 units EVERY 12 HOURS SUBQ 01/29/20 09:00 03/14/20 08:59 02/04/20 08:23 Hydralazine HCl (Apresoline) 10 mg Q6HR PRN IV SBP>180 01/28/20 22:45 04/27/20 22:44 02/02/20 06:20 Insulin Aspart (NovoLOG) Q6HR SUBQ 01/29/20 00:00 04/28/20 00:00 02/04/20 06:03 Insulin Detemir (Levemir) 10 units BID SUBQ 02/02/20 09:00 05/01/20 08:59 02/04/20 09:03 Ipratropium [place] (Atrovent) 500 mcg Q4HRT N 02/03/20 03:00 02/08/20 02:59 02/04/20 07:16 Isosorbide Mononitrate (Imdur) 30 mg DAILY ORAL 02/02/20 09:00 03/03/20 08:59 02/04/20 08:22 Linezolid 300 ml @ 300 mls/hr Q12HR IVPB 01/31/20 13:00 02/07/20 12:59 02/04/20 08:21 Metoprolol Tartrate (Lopressor) 50 mg Q12HR ORAL 02/02/20 09:00 05/02/20 08:59 02/04/20 08:22 Morphine Sulfate (Morphine Sulfate) 2 mg Q4H PRN IVP Severe Pain (Pain Scale 7-10) 01/29/20 22:30 02/05/20 22:29 02/04/20 08:16 Nitroglycerin (Ntg) 0.4 mg Q5M PRN SL Prn Chest Pain 02/01/20 08:00 03/02/20 07:59 02/03/20 06:17 Ondansetron HCl (Zofran) 4 mg Q6H PRN IVP Nausea & Vomiting 01/28/20 22:45 02/27/20 22:44 02/01/20 18:10 Pantoprazole (Protonix) 40 mg EVERY 12 HOURS IVP 02/01/20 22:00 03/02/20 21:59 02/04/20 08:21 Messi Lopez MD Feb 04, 2020 11:02
--- NOTE | 2020-02-04 11:25 | Critical Care Progress Note ---
Assessment/Plan Assessment/Plan IMPRESSION acute respiratory failure leukocytosis sepsis ARF toxic met encephalopathy COPD DM poor control cavitary lesion negative AFB groundglass infiltrates NSTEMI severe PCM hypertension PLAN stable on tele BIPAP off currently off and good oxygen saturations antibiotics ID noted PO with caution cardiology follow up nitro PRN titrate BP meds- increase monitor wbc repeat imaging for change impression, plan, and exam edited and reviewed in detail care discussed with hospice rn - Subjective Interval Events: improved Condition: stable EKG Rhythm: Sinus Rhythm I&O: Intake and Output 02/03/20 02/04/20 19:00 07:00 Intake Total 1365 ml 300 ml Output Total 520 ml 500 ml Balance 845 ml -200 ml Intake Oral 840 ml IV Total 525 ml 300 ml Output Urine Total 520 ml 500 ml # Voids 103 1 Critical Care - Objective Last 24 Hour Vital Signs Date Time Temp Pulse Resp B/P (MAP) Pulse Ox O2 Delivery O2 Flow Rate FiO2 02/04/20 11:17 79 18 100 Room Air 21 73 22 96 02/04/20 08:22 103 177/89 02/04/20 08:22 177/89 02/04/20 08:22 103 177/89 02/04/20 08:00 87 02/04/20 07:52 97.5 103 18 177/89 (118) 99 02/04/20 07:26 96 Room Air 21 02/04/20 07:25 86 20 99 Room Air 21 77 24 95 02/04/20 04:47 98.8 64 20 151/78 (102) 96 02/04/20 04:00 65 02/04/20 03:34 75 18 99 Room Air 21 73 18 94 02/04/20 00:00 99.3 66 20 169/82 (111) 100 02/04/20 00:00 67 02/03/20 23:00 66 17 100 Room Air 21 64 18 95 02/03/20 20:43 69 147/86 02/03/20 20:41 75 18 100 Room Air 21 73 16 95 02/03/20 20:40 95 Room Air 21 02/03/20 20:00 69 02/03/20 20:00 98.2 69 16 147/76 (99) 95 02/03/20 16:00 97.9 69 115/69 (84) 02/03/20 16:00 76 02/03/20 13:00 97.7 63 20 130/67 (88) 100 02/03/20 12:00 Room Air 02/03/20 12:00 72 02/03/20 12:00 98.2 64 17 135/69 (91) 99 Labs: Laboratory Tests 02/03/20 17:08: POC Whole Blood Glucose 290H 02/03/20 20:14: POC Whole Blood Glucose 307H 02/03/20 23:36: POC Whole Blood Glucose 330H 02/04/20 04:05: White Blood Count 14.7H, Red Blood Count 3.20L, Hemoglobin 9.7L, Hematocrit 31.1L, Mean Corpuscular Volume 97, Mean Corpuscular Hemoglobin 30.4, Mean Corpuscular Hemoglobin Concent 31.3L, Red Cell Distribution Width 15.8H, Platelet Count 276, Mean Platelet Volume 6.6, Neutrophils (%) (Auto) , Lymphocytes (%) (Auto) , Monocytes (%) (Auto) , Eosinophils (%) (Auto) , Basophils (%) (Auto) , Differential Total Cells Counted 100, Neutrophils % (Manual) 85H, Lymphocytes % (Manual) 8L, Monocytes % (Manual) 6, Eosinophils % (Manual) 0, Basophils % (Manual) 0, Band Neutrophils 1, Platelet Estimate Adequate, Platelet Morphology Normal, Hypochromasia 1+, Anisocytosis 1+, Sodium Level 144, Potassium Level 4.3, Chloride Level 112H, Carbon Dioxide Level 24, Anion Gap 8, Blood Urea Nitrogen 45H, Creatinine 1.3, Estimat Glomerular Filtration Rate 50.7, Glucose Level 261#H, Calcium Level 8.0L, Total Bilirubin 1.0, Aspartate Amino Transf (AST/SGOT) 60H, Alanine Aminotransferase (ALT/SGPT) 141H, Alkaline Phosphatase 295H, Pro-B-Type Natriuretic Peptide 8040H, Total Protein 6.7, Albumin 2.1L, Globulin 4.6, Albumin/Globulin Ratio 0.5L 02/04/20 05:48: POC Whole Blood Glucose 247H Objective: WDWN ill appearing reduced breath sounds bilaterally without rhonchi or wheeze [id number] without MRG NABS nontender no HSM no CCE nonfocal Micro: Microbiology Date/Time Source Procedure Growth Status 02/02/20 14:20 Blood Blood Culture - Preliminary Resulted Accucheck: 247 Ishaaya,Germán M MD Feb 04, 2020 11:25
--- NOTE | 2020-02-04 13:48 | Cardiology Progress Note ---
Subjective DATE OF SERVICE: Feb 04, 2020 Slow heart rates noted during sleep (high 40's). Blood glucose remains elevated. Na+ level corrected with hypotonic hydration last nite. Less congestion and SOB. O2 requirements decreasing. No recurrent CP, but troponin peaked at 4.65, and is normalizing 2D Echo reviewed - EF 45%, severe pulmonary hypertension, mild-moderate AV stenosis with ESTHER 1.5cm2 CXR (02/02) with cavitary lesion and mild congestive changes. Objective Last 24 Hour Vital Signs Date Time Temp Pulse Resp B/P (MAP) Pulse Ox O2 Delivery O2 Flow Rate FiO2 02/04/20 11:17 79 18 100 Room Air 21 73 22 96 02/04/20 08:22 103 177/89 02/04/20 08:22 177/89 02/04/20 08:22 103 177/89 02/04/20 08:00 87 02/04/20 07:52 97.5 103 18 177/89 (118) 99 02/04/20 07:26 96 Room Air 21 02/04/20 07:25 86 20 99 Room Air 21 77 24 95 02/04/20 04:47 98.8 64 20 151/78 (102) 96 02/04/20 04:00 65 02/04/20 03:34 75 18 99 Room Air 21 73 18 94 02/04/20 00:00 99.3 66 20 169/82 (111) 100 02/04/20 00:00 67 02/03/20 23:00 66 17 100 Room Air 21 64 18 95 02/03/20 20:43 69 147/86 02/03/20 20:41 75 18 100 Room Air 21 73 16 95 02/03/20 20:40 95 Room Air 21 02/03/20 20:00 69 02/03/20 20:00 98.2 69 16 147/76 (99) 95 02/03/20 16:00 97.9 69 115/69 (84) 02/03/20 16:00 76 HEENT: normal ENT inspection RHYTHM: NSR LUNGS: bilat. rhonchi and rales CARDIAC: systolic murmur - 1/6 at base ABDOMEN: normal bowel sounds, non tender, soft EXTREMITIES: normal range of motion, non-pitting Laboratory Tests Test 02/03/20 17:08 02/03/20 20:14 02/03/20 23:36 02/04/20 04:05 POC Whole Blood Glucose 290 MG/DL (74-106) H 307 MG/DL (74-106) H 330 MG/DL (74-106) H White Blood Count 14.7 K/UL (4.8-10.8) H Red Blood Count 3.20 M/UL (4.20-5.40) L Hemoglobin 9.7 G/DL (12.0-16.0) L Hematocrit 31.1 % (37.0-47.0) L Mean Corpuscular Volume 97 FL (80-99) Mean Corpuscular Hemoglobin 30.4 PG (27.0-31.0) Mean Corpuscular Hemoglobin Concent 31.3 G/DL (32.0-36.0) L Red Cell Distribution Width 15.8 % (11.6-14.8) H Platelet Count 276 K/UL (150-450) Mean Platelet Volume 6.6 FL (6.5-10.1) Neutrophils (%) (Auto) % (45.0-75.0) Lymphocytes (%) (Auto) % (20.0-45.0) Monocytes (%) (Auto) % (1.0-10.0) Eosinophils (%) (Auto) % (0.0-3.0) Basophils (%) (Auto) % (0.0-2.0) Differential Total Cells Counted 100 Neutrophils % (Manual) 85 % (45-75) H Lymphocytes % (Manual) 8 % (20-45) L Monocytes % (Manual) 6 % (1-10) Eosinophils % (Manual) 0 % (0-3) Basophils % (Manual) 0 % (0-2) Band Neutrophils 1 % (0-8) Platelet Estimate Adequate Platelet Morphology Normal Hypochromasia 1+ Anisocytosis 1+ Sodium Level 144 MMOL/L (136-145) Potassium Level 4.3 MMOL/L (3.5-5.1) Chloride Level 112 MMOL/L (98-107) H Carbon Dioxide Level 24 MMOL/L (21-32) Anion Gap 8 mmol/L (5-15) Blood Urea Nitrogen 45 mg/dL (7-18) H Creatinine 1.3 MG/DL (0.55-1.30) Estimat Glomerular Filtration Rate 50.7 mL/min (>60) Glucose Level 261 MG/DL (74-106) #H Calcium Level 8.0 MG/DL (8.5-10.1) L Total Bilirubin 1.0 MG/DL (0.2-1.0) Aspartate Amino Transf (AST/SGOT) 60 U/L (15-37) H Alanine Aminotransferase (ALT/SGPT) 141 U/L (12-78) H Alkaline Phosphatase 295 U/L (46-116) H Pro-B-Type Natriuretic Peptide 8040 pg/mL (0-125) H Total Protein 6.7 G/DL (6.4-8.2) Albumin 2.1 G/DL (3.4-5.0) L Globulin 4.6 g/dL Albumin/Globulin Ratio 0.5 (1.0-2.7) L Test 02/04/20 05:48 02/04/20 12:09 POC Whole Blood Glucose 247 MG/DL (74-106) H 352 MG/DL (74-106) H Microbiology Date/Time Source Procedure Growth Status 02/02/20 14:20 Blood Blood Culture - Preliminary Resulted Assessment/Plan Assessment/Plan Acute AK Lung mass - prior benign biopsy Pneumonia with cavitation Mild-mod degenerative aortic stenosis Acute renal failure Pulmonary hypertension (est PAsyst 58mmHg) Hypertension with labile BP range. Anemia Dehydration/hypernatremia corrected IRDM with elevated glucose. Sinus bradycardia on beta rusty rx. Orders updated Meds reviewed. Beta rusty dose decreased. Insulin regimen advanced. Discussed with nursing staff. Evans Trinidad MD Feb 04, 2020 13:48
[2020-02-04] MEDS: DAPTOmycin 450 MG in NS 55 ML IV SCH (13:56)
--- NOTE | 2020-02-04 15:02 | Cardiology Report ---
APPROVED REPORT EKG Measurement Heart [id number] <Conclusion> Normal sinus rhythm Prolonged QT Abnormal ECG
[2020-02-04 16:00] VITALS: BP 169/84
[2020-02-04] MEDS ORDERED: Levemir Flexpen SUBQ SCH (18:00)
--- NOTE | 2020-02-04 18:00 | NUR ---
NURSE NOTES: Patient verbalizing she wants to go home, Dr Feliz aware but disagrees. He plans to discharge her to a half-way but will check CXR result tomorrow first, patient made aware.
[2020-02-04] MEDS: HYDROcodone/Acetamin 5/325 tab ORAL PRN (18:33)
--- NOTE | 2020-02-04 18:40 | NUR ---
NURSE HAND-OFF REPORT: Important Events on Shift:sleepy during the shift. Awake now and verbalizing she wants to go home, Dr Feliz made aware and said plan is to discharge her to a skilled nursing. Patient Status: alert now, moaning. [place] already given. Diet: ccho med Pending Orders: Pending Results/Labs: Pending MD notification: Latest Vital Signs: Temperature 97.5 , Pulse 70 , B/P 169 /84 , Respiratory Rate 18 , O2 SAT 96 , Room Air, O2 Flow Rate 2.0 . Vital Sign Comment: EKG Rhythm: Sinus Rhythm Rhythm change?: N MD Notified?: - MD Response: Latest Pineda Fall Score: 50 Fall Risk: High Risk Safety Measures: Call light Within Reach, Bed Alarm Zone 1, Side Rails Side Rails x3, Bed position Low and Locked. Fall Precautions: Yellow Socks Yellow Gown Door Sign Patient Fall Education . Addendum: 02/04/20 at 1925 by Malka Vargas RN HAND-OFF: Report given to Gerry BUSCH.
--- NOTE | 2020-02-04 19:12 | NUR ---
NURSE NOTES: Report received from Malka JO-ANN. Patient is noted to be awake and alert x 2. Patient is noted to be on room air with no complaints of chest pain or shortness of breath at this time. Patient does not appear to be in respiratory distress at this time. Patient does have complaints of chronic back and neck pain. Was endorsed to Gerry BUSCH that pain medication was recently administered per MD orders. Gerry BUSCH informed the patient when pain medication was due again and wrote time on white board. Patient is noted to have right femoral tunnel catheter in place, no fluids running at this time. Dressing is clean, dry, and intact. Dressing change not due at this time. Patient is considered a high fall risk. patient near nursing station and Gerry BUSCH made co workers aware. Gerry BUSCH educated patient to use call light prior to getting up. Patient verbalized understanding, however, patient can be forgetful and reinforcement will likely be needed. Bed is locked, alarmed, and in lowest position. Will continue to follow plan of care.
[2020-02-04 20:00] VITALS: BP 170/82
[2020-02-04] MEDS: Dyna-Hex 2% Top Sol 2oz TOPIC SCH (20:14)
--- NOTE | 2020-02-04 20:30 | NUR ---
NURSE NOTES: Patient daughter at bedside and pointed out that patient's extremities appear swollen. Gerry BUSCH assessed the patient and non pitting edema is noted in both hands, right hand worse than the left. The right foot has 1 + pitting edema, and left foot has non pitting edema. Patient reports that skin feels tight. Charge Nurse Toshia aware and also came to assess the patient. Will endorse to next shift.
--- NOTE | 2020-02-04 23:09 | NUR ---
NURSE NOTES: Patient requested to get up out of bed and into chair. Gerry BUSCH assessed patient safety. Gerry BUSCH sat patient up with minimal assistance at edge of bed. Patient had no complaints of chest pain, shortness of breath, or dizziness. After sitting at edge of bed patient was able to stand and pivot with minimal assistance from Gerry RN to the chair. Gerry BUSCH moved chair doorway where patient is in eyesight of charge Nurse and Gerry RN when at nursing station. Gerry BUSCH educated the importance of not getting up out of the chair. Gerry BUSCH educated the patient the high risk of falling and the delay in discharge a fall could cause. Gerry BUSCH educated the patient to ask for help before even attempting to get up out of the chair. Patient verbalized understanding and stated she will verbally ask for help. Patient also stated that she has less pain in her extremities when sitting up in the chair. Will continue to watch patient. Gerry BUSCH made nursing staff aware of patient in chair and that she is not to get up alone.
--- NOTE | 2020-02-04 23:36 | NUR ---
NURSE NOTES: Patient verbally requested Gerry BUSCH help. Patient request to be put back in bed. Gerry BUSCH moved chair to bedside where patient was able to stand and pivot to bed with minimal assistance from Gerry BUSCH. Gerry BUSCH elevated extremities with pillows. Patient has no further complaints at this time. Bed is locked, alarmed, and in lowest position. Call light in reach.
[2020-02-05] VITALS: BP 160/72
[2020-02-05] MEDS: NovoLOG Insulin Flexpen SUBQ SCH ×4 (00:07→17:52)
[2020-02-05] MEDS: HYDROcodone/Acetamin 5/325 tab ORAL PRN (01:51)
[2020-02-05] MEDS: Ipratropium 0.02% Inh Soln 2.5ml UD HHN SCH ×6 (03:04→23:16)
[2020-02-05 04:00] VITALS: BP 135/60
[2020-02-05 04:36] LABS: HEMOGLOBIN 9.2 G/DL (12.0-16.0); MEAN CORPUSCULAR VOLUME 98 FL (80-99); PLATELET COUNT 266 K/UL (150-450); RED BLOOD COUNT 3.07 M/UL (4.20-5.40); RED CELL DISTRIBUTION WIDTH 15.9 % (11.6-14.8); WHITE BLOOD COUNT 12.5 K/UL (4.8-10.8)
[2020-02-05 04:48] LABS: INR 1.2 (0.9-1.1)
[2020-02-05 05:33] LABS: ALBUMIN 1.9 G/DL (3.4-5.0); ALBUMIN/GLOBULIN RATIO 0.4 (1.0-2.7); BILIRUBIN,TOTAL 0.8 MG/DL (0.2-1.0); CREATININE 1.4 MG/DL (0.55-1.30); POTASSIUM 3.9 MMOL/L (3.5-5.1)
--- NOTE | 2020-02-05 07:18 | NUR ---
NURSE HAND-OFF REPORT: Important Events on Shift: Patient continued to require pain medication around the clock. Patient is found to have edema in extremities, right worse than left. Patient got up out of bed to chair. Patient requesting to go home. Patient Status: full code Diet: cardiac Pending Orders: morning labs Pending Results/Labs:none Pending MD notification:none Latest Vital Signs: Temperature 98.0 , Pulse 70 , B/P 135 /60 , Respiratory Rate 16 , O2 SAT 98 , Room Air, Vital Sign Comment: Patient runs hypertensive EKG Rhythm: Sinus Rhythm Rhythm change?: N MD Notified?: - MD Response: Latest Pineda Fall Score: 35 Fall Risk: Medium Risk Safety Measures: Call light Within Reach, Bed Alarm Zone 1, Side Rails Side Rails x3, Bed position Low and Locked. Fall Precautions: Yellow Socks Yellow Gown Door Sign Patient Fall Education Report given to Keily BUSCH.
--- NOTE | 2020-02-05 07:57 | Critical Care Progress Note ---
Assessment/Plan Assessment/Plan IMPRESSION acute respiratory failure leukocytosis sepsis ARF toxic met encephalopathy COPD DM poor control cavitary lesion negative AFB groundglass infiltrates NSTEMI severe PCM hypertension left shoulder pain PLAN stable on tele BIPAP off currently off and good oxygen saturations antibiotics per ID will need lung biopsy to assess further; can be done as outpatient PO with caution cardiology follow up nitro PRN titrate BP meds monitor wbc repeat imaging for change impression, plan, and exam edited and reviewed in detail care discussed with emergency department coordinator - Subjective Interval Events: wants to go home off oxygen ROS Limited/Unobtainable: Yes Condition: improving I&O: Intake and Output 02/04/20 02/05/20 19:00 07:00 Intake Total 970 ml 480 ml Output Total 600 ml 700 ml Balance 370 ml -220 ml Intake Oral 970 ml 480 ml Output Urine Total 600 ml 700 ml Critical Care - Objective Last 24 Hour Vital Signs Date Time Temp Pulse Resp B/P (MAP) Pulse Ox O2 Delivery O2 Flow Rate FiO2 02/05/20 04:00 67 02/05/20 04:00 98.0 70 16 135/60 (85) 98 02/05/20 03:04 80 18 100 Room Air 21 78 18 96 02/05/20 00:00 98.4 72 20 160/72 (101) 95 02/05/20 00:00 76 02/04/20 20:13 84 167/79 02/04/20 20:00 Room Air 02/04/20 20:00 97.7 98 20 170/82 (111) 100 02/04/20 20:00 74 02/04/20 19:55 84 18 100 Room Air 21 86 18 96 02/04/20 19:54 95 Room Air 21 02/04/20 16:00 70 02/04/20 16:00 97.5 105 18 169/84 (112) 96 02/04/20 15:51 81 16 99 Room Air 21 85 18 97 02/04/20 12:00 67 02/04/20 11:17 79 18 100 Room Air 21 73 22 96 02/04/20 08:22 103 177/89 02/04/20 08:22 177/89 02/04/20 08:22 103 177/89 02/04/20 08:00 87 Labs: Laboratory Tests Test 02/04/20 12:09 02/04/20 16:50 02/04/20 19:51 02/05/20 00:04 POC Whole Blood Glucose 352 MG/DL (74-106) H 283 MG/DL (74-106) H 399 MG/DL (74-106) H 384 MG/DL (74-106) H Test 02/05/20 04:00 02/05/20 05:25 02/05/20 05:57 White Blood Count 12.5 K/UL (4.8-10.8) H Red Blood Count 3.07 M/UL (4.20-5.40) L Hemoglobin 9.2 G/DL (12.0-16.0) L Hematocrit 30.0 % (37.0-47.0) L Mean Corpuscular Volume 98 FL (80-99) Mean Corpuscular Hemoglobin 30.0 PG (27.0-31.0) Mean Corpuscular Hemoglobin Concent 30.6 G/DL (32.0-36.0) L Red Cell Distribution Width 15.9 % (11.6-14.8) H Platelet Count 266 K/UL (150-450) Mean Platelet Volume 6.3 FL (6.5-10.1) L Neutrophils (%) (Auto) % (45.0-75.0) Lymphocytes (%) (Auto) % (20.0-45.0) Monocytes (%) (Auto) % (1.0-10.0) Eosinophils (%) (Auto) % (0.0-3.0) Basophils (%) (Auto) % (0.0-2.0) Prothrombin Time 13.4 SEC (9.30-11.50) H Prothromb Time International Ratio 1.2 (0.9-1.1) H Sodium Level 142 MMOL/L (136-145) Potassium Level 3.9 MMOL/L (3.5-5.1) Chloride Level 110 MMOL/L (98-107) H Carbon Dioxide Level 24 MMOL/L (21-32) Anion Gap 8 mmol/L (5-15) Blood Urea Nitrogen 36 mg/dL (7-18) H Creatinine 1.4 MG/DL (0.55-1.30) H Estimat Glomerular Filtration Rate 46.5 mL/min (>60) Glucose Level 253 MG/DL (74-106) H Calcium Level 8.0 MG/DL (8.5-10.1) L Total Bilirubin 0.8 MG/DL (0.2-1.0) Aspartate Amino Transf (AST/SGOT) 42 U/L (15-37) H Alanine Aminotransferase (ALT/SGPT) 93 U/L (12-78) H Alkaline Phosphatase 343 U/L (46-116) H Total Protein 6.2 G/DL (6.4-8.2) L Albumin 1.9 G/DL (3.4-5.0) L Globulin 4.3 g/dL Albumin/Globulin Ratio 0.4 (1.0-2.7) L Hepatitis C Antibody Pending Hepatitis C RNA (PCR) IUs/ml Pending Hepatitis C RNA (PCR) log IUs/ml Pending POC Whole Blood Glucose 214 MG/DL (74-106) H Objective: WDWN ill appearing reduced breath sounds bilaterally without rhonchi or wheeze [id number] without MRG NABS nontender no HSM no CCE nonfocal Micro: Microbiology Date/Time Source Procedure Growth Status 02/02/20 14:20 Blood Blood Culture - Preliminary Resulted Accucheck: 214 Germán Feliz MD Feb 05, 2020 07:57
[2020-02-05 08:00] VITALS: BP 175/104
[2020-02-05] MEDS ORDERED: HYDROcodone/Acetamin 5/325 tab ORAL PRN (08:00)
[2020-02-05] MEDS: Aspirin Baby 81mg ORAL SCH (08:02)
[2020-02-05] MEDS: Pantoprazole Inj IVP SCH ×2 (08:03→21:20)
[2020-02-05] MEDS: Imdur 30mg tab ORAL SCH (08:03)
[2020-02-05] MEDS: HYDROcodone/Acetamin 10/325 tab ORAL PRN ×4 (08:04→22:40)
[2020-02-05] MEDS: Heparin 5000 units/ml inj SUBQ SCH ×2 (08:19→21:20)
[2020-02-05] MEDS: Levemir Flexpen SUBQ SCH ×2 (08:21→17:53)
--- NOTE | 2020-02-05 09:35 | NUR ---
NURSE NOTES: Report received from Gerry BUSCH. Pt is AOx3 and is on room air with no sign of sob or resp distress. Pt has right femoral triple lumen that is leaking at site and appears to be half way drawn out. recvd order from Dr Feliz to DC line. Line was dc and site is clean and dry. Pt has allan cath, draining to gravity and urine appears straw colored. Bed in lowest locked position, call light within reach, fall precautions maintained. Pt complaining of left shoulder pain, recvd order for xray for left shoulder, pending results.
--- NOTE | 2020-02-05 11:35 | Infectious Diseases Prog Note ---
Assessment/Plan Assessment/Plan antibiotics : daptomycin iv A 1. cavitary pneumonia sputum AFB negative x 3 2. MRSA sepsis r/o endocarditis 3. diabetes mellitus 4. hypertension 5. COPD 6. renal failure improving 7. aortic stenosis P 1. continue daptomycin 2. will follow up cultures 3. consider PORFIRIO Subjective Constitutional: Denies: fever, chills Respiratory: Reports: dry cough; Denies: shortness of breath Gastrointestinal/Abdominal: Denies: nausea, vomiting, diarrhea Musculoskeletal: Reports: pain - decreased Allergies: Coded Allergies: No Known Allergies (Unverified , 07/30/15) Objective Last 24 Hour Vital Signs Date Time Temp Pulse Resp B/P (MAP) Pulse Ox O2 Delivery O2 Flow Rate FiO2 02/05/20 08:34 98.0 02/05/20 08:03 67 135/60 02/05/20 08:03 135/60 02/05/20 08:02 67 135/60 02/05/20 08:00 106 02/05/20 07:03 100 Room Air 21 02/05/20 07:03 80 18 100 Room Air 21 79 18 98 02/05/20 04:00 67 02/05/20 04:00 98.0 70 16 135/60 (85) 98 02/05/20 03:04 80 18 100 Room Air 21 78 18 96 02/05/20 00:00 98.4 72 20 160/72 (101) 95 02/05/20 00:00 76 02/04/20 20:13 84 167/79 02/04/20 20:00 Room Air 02/04/20 20:00 97.7 98 20 170/82 (111) 100 02/04/20 20:00 74 02/04/20 19:55 84 18 100 Room Air 21 86 18 96 02/04/20 19:54 95 Room Air 21 02/04/20 16:00 70 02/04/20 16:00 97.5 105 18 169/84 (112) 96 02/04/20 15:51 81 16 99 Room Air 21 85 18 97 02/04/20 12:00 67 Height (Feet): 5 Height (Inches): 1.00 Weight (Pounds): 168 Respiratory/Chest: lungs clear Cardiovascular: normal rate, regular rhythm, no gallop/murmur Abdomen: soft, non tender Extremities: other - + edema Microbiology Date/Time Source Procedure Growth Status 02/02/20 14:20 Blood Blood Culture - Preliminary Resulted Laboratory Tests Test 02/04/20 12:09 02/04/20 16:50 02/04/20 19:51 02/05/20 00:04 POC Whole Blood Glucose 352 MG/DL (74-106) H 283 MG/DL (74-106) H 399 MG/DL (74-106) H 384 MG/DL (74-106) H Test 02/05/20 04:00 02/05/20 05:25 02/05/20 05:57 White Blood Count 12.5 K/UL (4.8-10.8) H Red Blood Count 3.07 M/UL (4.20-5.40) L Hemoglobin 9.2 G/DL (12.0-16.0) L Hematocrit 30.0 % (37.0-47.0) L Mean Corpuscular Volume 98 FL (80-99) Mean Corpuscular Hemoglobin 30.0 PG (27.0-31.0) Mean Corpuscular Hemoglobin Concent 30.6 G/DL (32.0-36.0) L Red Cell Distribution Width 15.9 % (11.6-14.8) H Platelet Count 266 K/UL (150-450) Mean Platelet Volume 6.3 FL (6.5-10.1) L Neutrophils (%) (Auto) % (45.0-75.0) Lymphocytes (%) (Auto) % (20.0-45.0) Monocytes (%) (Auto) % (1.0-10.0) Eosinophils (%) (Auto) % (0.0-3.0) Basophils (%) (Auto) % (0.0-2.0) Prothrombin Time 13.4 SEC (9.30-11.50) H Prothromb Time International Ratio 1.2 (0.9-1.1) H Sodium Level 142 MMOL/L (136-145) Potassium Level 3.9 MMOL/L (3.5-5.1) Chloride Level 110 MMOL/L (98-107) H Carbon Dioxide Level 24 MMOL/L (21-32) Anion Gap 8 mmol/L (5-15) Blood Urea Nitrogen 36 mg/dL (7-18) H Creatinine 1.4 MG/DL (0.55-1.30) H Estimat Glomerular Filtration Rate 46.5 mL/min (>60) Glucose Level 253 MG/DL (74-106) H Calcium Level 8.0 MG/DL (8.5-10.1) L Total Bilirubin 0.8 MG/DL (0.2-1.0) Aspartate Amino Transf (AST/SGOT) 42 U/L (15-37) H Alanine Aminotransferase (ALT/SGPT) 93 U/L (12-78) H Alkaline Phosphatase 343 U/L (46-116) H Total Protein 6.2 G/DL (6.4-8.2) L Albumin 1.9 G/DL (3.4-5.0) L Globulin 4.3 g/dL Albumin/Globulin Ratio 0.4 (1.0-2.7) L Hepatitis C Antibody Pending Hepatitis C RNA (PCR) IUs/ml Pending Hepatitis C RNA (PCR) log IUs/ml Pending POC Whole Blood Glucose 214 MG/DL (74-106) H Current Medications Medications (Trade) Dose Ordered Sig/Ivana Route PRN Reason Start Time Stop Time Status Last Admin Dose Admin Acetaminophen (Tylenol) 650 mg Q6H PRN ORAL MILD PAIN, FEVER 01/28/20 22:45 02/27/20 22:44 01/29/20 18:17 Acetaminophen/ Hydrocodone Bitart ([place] 10/325) 1 tab Q4H PRN ORAL Severe Pain (Pain Scale 7-10) 02/05/20 08:00 02/12/20 07:59 02/05/20 08:04 Acetaminophen/ Hydrocodone Bitart ([place] 5/325) 1 tab Q4H PRN ORAL Moderate Pain (Pain Scale 4-6) 02/05/20 08:00 02/12/20 07:59 Amlodipine Besylate (Norvasc) 10 mg DAILY ORAL 02/01/20 09:00 03/02/20 08:59 02/05/20 08:02 Aspirin (ASA) 81 mg DAILY ORAL 01/29/20 09:00 03/14/20 08:59 02/05/20 08:02 Chlorhexidine Gluconate (Divina-Hex 2%) 1 applic DAILY@1999 TOPIC 01/29/20 20:00 04/28/20 19:59 02/04/20 20:14 Daptomycin 450 mg/ Sodium Chloride 55 ml @ 100 mls/hr Q24H IV 02/04/20 13:00 02/11/20 12:59 02/04/20 13:56 Dextrose (Dextrose 50%) 25 ml Q30M PRN IV Hypoglycemia 01/28/20 22:45 04/27/20 22:44 Dextrose (Dextrose 50%) 50 ml Q30M PRN IV Hypoglycemia 01/28/20 22:45 04/27/20 22:44 Epoetin Haseeb (Epoetin Haseeb(ESRD on dialysis)) 8,000 unit WED-WED-WED SUBQ 01/31/20 21:00 04/30/20 20:59 01/31/20 22:54 Heparin Sodium (Porcine) (Heparin 5000 units/ml) 5,000 units EVERY 12 HOURS SUBQ 01/29/20 09:00 03/14/20 08:59 02/05/20 08:19 Hydralazine HCl (Apresoline) 10 mg Q6HR PRN IV SBP>180 01/28/20 22:45 04/27/20 22:44 02/02/20 06:20 Insulin Aspart (NovoLOG) Q6HR SUBQ 01/29/20 00:00 04/28/20 00:00 02/05/20 06:24 Insulin Detemir (Levemir) 16 units BID SUBQ 02/04/20 18:00 05/04/20 17:59 02/05/20 08:21 Ipratropium [place] (Atrovent) 500 mcg Q4HRT HHN 02/03/20 03:00 02/08/20 02:59 02/05/20 06:53 Isosorbide Mononitrate (Imdur) 30 mg DAILY ORAL 02/02/20 09:00 03/03/20 08:59 02/05/20 08:03 Metoprolol Tartrate (Lopressor) 25 mg Q12HR ORAL 02/04/20 21:00 05/04/20 20:59 02/05/20 08:03 Nitroglycerin (Ntg) 0.4 mg Q5M PRN SL Prn Chest Pain 02/01/20 08:00 03/02/20 07:59 02/03/20 06:17 Ondansetron HCl (Zofran) 4 mg Q6H PRN IVP Nausea & Vomiting 01/28/20 22:45 02/27/20 22:44 02/01/20 18:10 Pantoprazole (Protonix) 40 mg EVERY 12 HOURS IVP 02/01/20 22:00 03/02/20 21:59 02/05/20 08:03 Messi Lopez MD Feb 05, 2020 11:35
[2020-02-05 12:00] VITALS: BP 150/82
[2020-02-05] MEDS: DAPTOmycin 450 MG in NS 55 ML IV SCH (13:31)
--- NOTE | 2020-02-05 14:03 | NUR ---
CASE MANAGEMENT:REVIEW 02/05/20 SI: SEPSIS. ACUTE RESPIRATORY FAILURE. NSTEMI COVID (-). AFB'S NEGATIVE X3 97.5 70 18 150/82 95% ON RA WBC+12.5 H/H-9.2/30.0 BUN+36 CR+1.4 IS: IV DAPTOMYCIN Q24 EPOETIN SQ MWF NORCO PO Q4HRS PRN PAIN LOPRESSOR PO Q12 LEVEMIR SQ BID NORVASC PO QD ASA PO QD HEPARIN SQ Q12 : TELEMETRY~ DOWNGRADE TO MED/SURG DCP; FROM HOME PLAN: F/U ON BLOOD CX ~ PRELIM GROWING GRAM POSITIVE COCCI IN CLUSTERS CXR FOR TODAY
--- NOTE | 2020-02-05 15:50 | Diagnostic Imaging Report ---
Indication: Shortness of breath Technique: One view of the chest Comparison: 02/02/2020 Findings: Pleural thickening, parenchymal scarring, area of cavitation in the right upper lobe are unchanged. There is evidence of volume loss of the right lung. The right lower lung, left lung and pleural space are clear. The heart is upper limits normal in size. Findings are unchanged Impression: Unchanged, over one day, findings as above.
--- NOTE | 2020-02-05 15:53 | Diagnostic Imaging Report ---
Indication: Shoulder pain Technique: 3 views of the left shoulder Comparison: none Findings: No acute fractures. No dislocations. Joint spaces are preserved Impression: Negative
[2020-02-05 16:00] VITALS: BP 157/78
[2020-02-05 20:00] VITALS: BP 148/84
[2020-02-05] MEDS: Dyna-Hex 2% Top Sol 2oz TOPIC SCH (20:00)
--- NOTE | 2020-02-05 20:20 | NUR ---
TRANSFER NOTES: Important Events on Shift: Pt transferred to [facility] 4E, 416-1. Report given to Jese Walsh RN. Pt in stable condition, no signs or symptoms of distress noted at this time. Pt denies pain. Pt and dtr informed of transfer, verbalized understanding. Belongings accounted for. desk monitor removed, sanitized, and returned to [facility]. Patient Status: Stable Diet: CCHO Med Pending Orders: None Pending Results/Labs: AM labs Pending MD notification: None Latest Vital Signs: Temperature 98.1 , Pulse 72 , B/P 148 /84 , Respiratory Rate 20 , O2 SAT 96 , Room Air, O2 Flow Rate 2.0 . Vital Sign Comment: Stable EKG Rhythm: Sinus Rhythm Rhythm change?: N MD Notified?: - MD Response: Latest Pineda Fall Score: 35 Fall Risk: Medium Risk Safety Measures: Call light Within Reach, Bed Alarm Zone 1, Side Rails Side Rails x3, Bed position Low and Locked. Fall Precautions: YES Yellow Socks YES Yellow Gown YES Door Sign YES Patient Fall Education YES
--- NOTE | 2020-02-05 20:30 | NUR ---
NURSE NOTES: Received a pt on the bed awake,A&Ox4, and verbal. pt has no sob,fever,pain , and cough at the moment. Iv is intact annd asymptomatic. Bed is in the lowest position,locked, and call light within reach. We will keep monitoring the pt.
--- NOTE | 2020-02-05 21:19 | General Progress Note ---
Subjective Allergies: Coded Allergies: No Known Allergies (Unverified , 07/30/15) Subjective Above noted no on med surg floor swallowing complaints resolved d/w patient re LFT changes Hepatitis C (+) Objective Last 24 Hour Vital Signs Date Time Temp Pulse Resp B/P (MAP) Pulse Ox O2 Delivery O2 Flow Rate FiO2 02/05/20 20:05 85 18 100 Room Air 21 02/05/20 19:55 96 Room Air 21 02/05/20 19:55 87 18 96 Room Air 21 02/05/20 19:53 97.0 02/05/20 16:00 69 02/05/20 16:00 97.0 68 20 157/78 (104) 95 02/05/20 15:03 72 18 100 Room Air 21 69 18 95 02/05/20 13:06 98.0 02/05/20 12:00 97.5 70 18 150/82 (104) 95 02/05/20 12:00 69 02/05/20 11:52 79 18 100 Room Air 21 81 18 97 02/05/20 08:34 98.0 02/05/20 08:03 67 135/60 02/05/20 08:03 135/60 02/05/20 08:02 67 135/60 02/05/20 08:00 97.5 101 20 175/104 (127) 98 02/05/20 08:00 106 02/05/20 07:03 100 Room Air 21 02/05/20 07:03 80 18 100 Room Air 21 79 18 98 02/05/20 04:00 67 02/05/20 04:00 98.0 70 16 135/60 (85) 98 02/05/20 03:04 80 18 100 Room Air 21 78 18 96 02/05/20 00:00 98.4 72 20 160/72 (101) 95 02/05/20 00:00 76 Intake and Output 02/04/20 02/05/20 19:00 07:00 Intake Total 970 ml 480 ml Output Total 600 ml 700 ml Balance 370 ml -220 ml Intake Oral 970 ml 480 ml Output Urine Total 600 ml 700 ml Laboratory Tests 02/05/20 00:04: POC Whole Blood Glucose 384H 02/05/20 04:00: White Blood Count 12.5H, Red Blood Count 3.07L, Hemoglobin 9.2L, Hematocrit 30.0L, Mean Corpuscular Volume 98, Mean Corpuscular Hemoglobin 30.0, Mean Corpuscular Hemoglobin Concent 30.6L, Red Cell Distribution Width 15.9H, Platelet Count 266, Mean Platelet Volume 6.3L, Neutrophils (%) (Auto) , Lymphocytes (%) (Auto) , Monocytes (%) (Auto) , Eosinophils (%) (Auto) , Ba sophils (%) (Auto) , Prothrombin Time 13.4H, Prothromb Time International Ratio 1.2H, Sodium Level 142, Potassium Level 3.9, Chloride Level 110H, Carbon Dioxide Level 24, Anion Gap 8, Blood Urea Nitrogen 36H, Creatinine 1.4H, Estimat Glomerular Filtration Rate 46.5, Glucose Level 253H, Calcium Level 8.0L, Total Bilirubin 0.8, Aspartate Amino Transf (AST/SGOT) 42H, Alanine Aminotransferase (ALT/SGPT) 93H, Alkaline Phosphatase 343H, Total Protein 6.2L, Albumin 1.9L, Globulin 4.3, Albumin/Globulin Ratio 0.4L 02/05/20 05:25: Hepatitis C Antibody [Pending], Hepatitis C RNA (PCR) IUs/ml [Pending], Hepatitis C RNA (PCR) log IUs/ml [Pending] 02/05/20 05:57: POC Whole Blood Glucose 214H 02/05/20 11:33: POC Whole Blood Glucose 238H 02/05/20 17:19: POC Whole Blood Glucose 216H Height (Feet): 5 Height (Inches): 1.00 Weight (Pounds): 168 Objective WDWN NCAT supple CTA RR Abd soft ND mild edema Assessment/Plan Assessment/Plan: Assessment - hepatitis C with nodular liver - Swallowing Sx - resolved - HTN - COPD - Lung mass - DM - PSVT Recommendations - po as tolerated - MRCP in am - follow LFT - PPI - Elevate Feliberto Hunt MD Feb 05, 2020 21:19
[2020-02-05] MEDS: Epoetin Alfa-EPBX (NON ESRD)4000 units/ml vial SUBQ SCH (21:20)
[2020-02-06] VITALS: BP 148/84
[2020-02-06] MEDS: NovoLOG Insulin Flexpen SUBQ SCH ×5 (00:35→23:13)
[2020-02-06] MEDS: Ipratropium 0.02% Inh Soln 2.5ml UD HHN SCH ×6 (03:16→23:12)
[2020-02-06 04:00] VITALS: BP 136/78
[2020-02-06] MEDS: HYDROcodone/Acetamin 10/325 tab ORAL PRN ×5 (04:05→20:59)
--- NOTE | 2020-02-06 07:28 | NUR ---
NURSE NOTES: Received patient from JO-ANN Sawant. Patient observed to be awake, alert, and oriented x4. Seen lying in bed with HOB elevated, currently on room air. No s/sx of SOB/Distress, able to verbalize feeling of discomfort but not stating to be in any pain now. Patient IV site located on LH gauge 22, line is asymptomatic, inplace and intact. With allan catheter fr 16 for urinary retention, allan inplace and intact, running well. Bed placed on lowest and locked, call light placed within reach and will continue to monitor for any changes in patient's condition.
--- NOTE | 2020-02-06 07:53 | Critical Care Progress Note ---
Assessment/Plan Assessment/Plan IMPRESSION acute respiratory failure leukocytosis sepsis ARF toxic met encephalopathy COPD DM poor control cavitary lesion negative AFB groundglass infiltrates NSTEMI severe PCM hypertension left shoulder pain bacteremia PLAN stable on tele BIPAP off currently off and good oxygen saturations antibiotics per ID will need lung biopsy to assess further; can be done as outpatient PO with caution cardiology follow up nitro PRN titrate BP meds monitor wbc repeat imaging for change IV antibiotics and consider PORFIRIO impression, plan, and exam edited and reviewed in detail 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 - Subjective Condition: stable Critical Care - Objective Last 24 Hour Vital Signs Date Time Temp Pulse Resp B/P (MAP) Pulse Ox O2 Delivery O2 Flow Rate FiO2 02/06/20 04:00 97.6 69 20 136/78 (97) 97 02/06/20 03:26 70 18 99 Room Air 21 02/06/20 03:16 68 18 97 Room Air 21 02/06/20 00:00 98.1 72 20 148/84 (105) 96 02/05/20 23:26 72 18 99 Room Air 21 02/05/20 23:16 70 18 97 Room Air 21 02/05/20 21:20 84 145/72 02/05/20 20:05 85 18 100 Room Air 21 02/05/20 20:00 96.5 71 18 148/84 (105) 96 02/05/20 19:55 96 Room Air 21 02/05/20 19:55 87 18 96 Room Air 21 02/05/20 19:53 97.0 02/05/20 16:00 69 02/05/20 16:00 97.0 68 20 157/78 (104) 95 02/05/20 15:03 72 18 100 Room Air 21 69 18 95 02/05/20 13:06 98.0 02/05/20 12:00 97.5 70 18 150/82 (104) 95 02/05/20 12:00 69 02/05/20 11:52 79 18 100 Room Air 21 81 18 97 02/05/20 08:34 98.0 02/05/20 08:03 67 135/60 02/05/20 08:03 135/60 02/05/20 08:02 67 135/60 02/05/20 08:00 97.5 101 20 175/104 (127) 98 02/05/20 08:00 106 Labs: Labs Test 02/03/20 17:08 02/03/20 20:14 02/03/20 23:36 02/04/20 04:05 POC Whole Blood Glucose 290 MG/DL (74-106) 307 MG/DL (74-106) 330 MG/DL (74-106) White Blood Count 14.7 K/UL (4.8-10.8) Red Blood Count 3.20 M/UL (4.20-5.40) Hemoglobin 9.7 G/DL (12.0-16.0) Hematocrit 31.1 % (37.0-47.0) Mean Corpuscular Volume 97 FL (80-99) Mean Corpuscular Hemoglobin 30.4 PG (27.0-31.0) Mean Corpuscular Hemoglobin Concent 31.3 G/DL (32.0-36.0) Red Cell Distribution Width 15.8 % (11.6-14.8) Platelet Count 276 K/UL (150-450) Mean Platelet Volume 6.6 FL (6.5-10.1) Neutrophils (%) (Auto) % (45.0-75.0) Lymphocytes (%) (Auto) % (20.0-45.0) Monocytes (%) (Auto) % (1.0-10.0) Eosinophils (%) (Auto) % (0.0-3.0) Basophils (%) (Auto) % (0.0-2.0) Differential Total Cells Counted 100 Neutrophils % (Manual) 85 % (45-75) Lymphocytes % (Manual) 8 % (20-45) Monocytes % (Manual) 6 % (1-10) Eosinophils % (Manual) 0 % (0-3) Basophils % (Manual) 0 % (0-2) Band Neutrophils 1 % (0-8) Platelet Estimate Adequate Platelet Morphology Normal Hypochromasia 1+ Anisocytosis 1+ Sodium Level 144 MMOL/L (136-145) Potassium Level 4.3 MMOL/L (3.5-5.1) Chloride Level 112 MMOL/L (98-107) Carbon Dioxide Level 24 MMOL/L (21-32) Anion Gap 8 mmol/L (5-15) Blood Urea Nitrogen 45 mg/dL (7-18) Creatinine 1.3 MG/DL (0.55-1.30) Estimat Glomerular Filtration Rate 50.7 mL/min (>60) Glucose Level 261 MG/DL (74-106) Calcium Level 8.0 MG/DL (8.5-10.1) Total Bilirubin 1.0 MG/DL (0.2-1.0) Aspartate Amino Transf (AST/SGOT) 60 U/L (15-37) Alanine Aminotransferase (ALT/SGPT) 141 U/L (12-78) Alkaline Phosphatase 295 U/L (46-116) Pro-B-Type Natriuretic Peptide 8040 pg/mL (0-125) Total Protein 6.7 G/DL (6.4-8.2) Albumin 2.1 G/DL (3.4-5.0) Globulin 4.6 g/dL Albumin/Globulin Ratio 0.5 (1.0-2.7) Test 02/04/20 05:48 02/04/20 12:09 02/04/20 16:50 02/04/20 19:51 POC Whole Blood Glucose 247 MG/DL (74-106) 352 MG/DL (74-106) 283 MG/DL (74-106) 399 MG/DL (74-106) Test 02/05/20 00:04 02/05/20 04:00 02/05/20 05:25 02/05/20 05:57 POC Whole Blood Glucose 384 MG/DL (74-106) 214 MG/DL (74-106) White Blood Count 12.5 K/UL (4.8-10.8) Red Blood Count 3.07 M/UL (4.20-5.40) Hemoglobin 9.2 G/DL (12.0-16.0) Hematocrit 30.0 % (37.0-47.0) Mean Corpuscular Volume 98 FL (80-99) Mean Corpuscular Hemoglobin 30.0 PG (27.0-31.0) Mean Corpuscular Hemoglobin Concent 30.6 G/DL (32.0-36.0) Red Cell Distribution Width 15.9 % (11.6-14.8) Platelet Count 266 K/UL (150-450) Mean Platelet Volume 6.3 FL (6.5-10.1) Neutrophils (%) (Auto) % (45.0-75.0) Lymphocytes (%) (Auto) % (20.0-45.0) Monocytes (%) (Auto) % (1.0-10.0) Eosinophils (%) (Auto) % (0.0-3.0) Basophils (%) (Auto) % (0.0-2.0) Prothrombin Time 13.4 SEC (9.30-11.50) Prothromb Time International Ratio 1.2 (0.9-1.1) Sodium Level 142 MMOL/L (136-145) Potassium Level 3.9 MMOL/L (3.5-5.1) Chloride Level 110 MMOL/L (98-107) Carbon Dioxide Level 24 MMOL/L (21-32) Anion Gap 8 mmol/L (5-15) Blood Urea Nitrogen 36 mg/dL (7-18) Creatinine 1.4 MG/DL (0.55-1.30) Estimat Glomerular Filtration Rate 46.5 mL/min (>60) Glucose Level 253 MG/DL (74-106) Calcium Level 8.0 MG/DL (8.5-10.1) Total Bilirubin 0.8 MG/DL (0.2-1.0) Aspartate Amino Transf (AST/SGOT) 42 U/L (15-37) Alanine Aminotransferase (ALT/SGPT) 93 U/L (12-78) Alkaline Phosphatase 343 U/L (46-116) Total Protein 6.2 G/DL (6.4-8.2) Albumin 1.9 G/DL (3.4-5.0) Globulin 4.3 g/dL Albumin/Globulin Ratio 0.4 (1.0-2.7) Test 02/05/20 11:33 02/05/20 17:19 POC Whole Blood Glucose 238 MG/DL (74-106) 216 MG/DL (74-106) Objective: WDWN ill appearing reduced breath sounds bilaterally without rhonchi or wheeze [id number] without MRG NABS nontender no HSM no CCE nonfocal Accucheck: 182 Germán Feliz MD Feb 06, 2020 07:53
[2020-02-06 08:00] VITALS: BP 174/84
[2020-02-06] MEDS: Pantoprazole Inj IVP SCH ×2 (08:28→20:58)
[2020-02-06] MEDS: Aspirin Baby 81mg ORAL SCH (08:29)
[2020-02-06] MEDS: Imdur 30mg tab ORAL SCH (08:29)
[2020-02-06] MEDS: Heparin 5000 units/ml inj SUBQ SCH ×2 (08:33→20:58)
[2020-02-06] MEDS: Levemir Flexpen SUBQ SCH ×2 (08:34→17:09)
--- NOTE | 2020-02-06 11:06 | NUR ---
RD ASSESSMENT & RECOMMENDATIONS SEE CARE ACTIVITY FOR COMPLETE ASSESSMENT DAILY ESTIMATED NEEDS: Needs based on Sepsis, pulmonary/ 54.9kg abw 25-35 kcals/kg 6895-4520 total kcals 1-2 g protein/kg 55-110 g total protein 25-30 mL/kg 7544-9866 total fluid mLs NUTRITION DIAGNOSIS: * Altered nutrition related lab values R/T clinical status as evidenced by variable poc BGs (52-325 upon adm, now mostly 200's), elev WBC (12.5 trend down), elev K (5.4 -> wnl), elev LFTs. CURRENT DIET: CCHO MED PO DIET RECOMMENDATIONS: CCHO MED + LOW NA ADDITIONAL RECOMMENDATIONS: * Monitor for continued improving oral intake * Monitor closely for hypoglycemia w/ variable intake * Consider endo consult w/ continued hyperglycemia * Calibrated bed scale wts * 1 carb snacks in b/w meals as tolerated * Calibrated bed scale wts .
[2020-02-06 12:00] VITALS: BP 160/79
[2020-02-06] MEDS: DAPTOmycin 450 MG in NS 55 ML IV SCH (12:28)
[2020-02-06] MEDS ORDERED: NS 275ml ONE ×2 (14:21)
--- NOTE | 2020-02-06 14:35 | Infectious Diseases Prog Note ---
Assessment/Plan Assessment/Plan antibiotics : daptomycin iv A 1. cavitary pneumonia sputum AFB negative x 3 2. MRSA sepsis r/o endocarditis 3. diabetes mellitus 4. hypertension 5. COPD 6. renal failure improving 7. aortic stenosis P 1. continue daptomycin 2. blood culture 3. will follow up cultures 4. consider PORFIRIO Subjective Constitutional: Denies: fever, chills Respiratory: Denies: shortness of breath, dry cough Gastrointestinal/Abdominal: Denies: nausea, vomiting, diarrhea Musculoskeletal: Reports: pain Allergies: Coded Allergies: No Known Allergies (Unverified , 07/30/15) Objective Last 24 Hour Vital Signs Date Time Temp Pulse Resp B/P (MAP) Pulse Ox O2 Delivery O2 Flow Rate FiO2 02/06/20 12:28 160/79 02/06/20 12:00 97.2 67 19 160/79 (106) 100 02/06/20 11:28 98 16 72 Room Air 21 94 16 66 02/06/20 08:30 94 174/84 02/06/20 08:29 174/84 02/06/20 08:29 94 174/84 02/06/20 08:29 174/84 02/06/20 08:28 98 15 99 Room Air 21 94 15 96 02/06/20 08:00 98.1 94 19 174/84 (114) 98 02/06/20 04:00 97.6 69 20 136/78 (97) 97 02/06/20 03:26 70 18 99 Room Air 21 02/06/20 03:16 68 18 97 Room Air 21 02/06/20 00:00 98.1 72 20 148/84 (105) 96 02/05/20 23:26 72 18 99 Room Air 21 02/05/20 23:16 70 18 97 Room Air 21 02/05/20 21:20 84 145/72 02/05/20 20:05 85 18 100 Room Air 21 02/05/20 20:00 96.5 71 18 148/84 (105) 96 02/05/20 19:55 96 Room Air 21 02/05/20 19:55 87 18 96 Room Air 21 02/05/20 19:53 97.0 02/05/20 16:00 69 02/05/20 16:00 97.0 68 20 157/78 (104) 95 02/05/20 15:03 72 18 100 Room Air 21 69 18 95 Height (Feet): 5 Height (Inches): 1.00 Weight (Pounds): 168 Respiratory/Chest: lungs clear Cardiovascular: normal rate, regular rhythm, no gallop/murmur Abdomen: soft, non tender Extremities: other - + edema Laboratory Tests Test 02/05/20 17:19 POC Whole Blood Glucose 216 MG/DL (74-106) H Current Medications Medications (Trade) Dose Ordered Sig/Ivana Route PRN Reason Start Time Stop Time Status Last Admin Dose Admin Acetaminophen (Tylenol) 650 mg Q6H PRN ORAL MILD PAIN, FEVER 01/28/20 22:45 02/27/20 22:44 02/05/20 21:20 Acetaminophen/ Hydrocodone Bitart ([place] 10/325) 1 tab Q4H PRN ORAL Severe Pain (Pain Scale 7-10) 02/05/20 08:00 02/12/20 07:59 02/06/20 12:29 Acetaminophen/ Hydrocodone Bitart ([place] 5/325) 1 tab Q4H PRN ORAL Moderate Pain (Pain Scale 4-6) 02/05/20 08:00 02/12/20 07:59 Amlodipine Besylate (Norvasc) 10 mg DAILY ORAL 02/01/20 09:00 03/02/20 08:59 02/06/20 08:30 Aspirin (ASA) 81 mg DAILY ORAL 01/29/20 09:00 03/14/20 08:59 02/06/20 08:29 Chlorhexidine Gluconate (Divina-Hex 2%) 1 applic DAILY@2000 TOPIC 01/29/20 20:00 04/28/20 19:59 02/04/20 20:14 Clonidine HCl (Catap[place] Tab) 0.1 mg Q4H PRN ORAL SBP > 150mmHg 02/06/20 07:00 05/06/20 06:59 02/06/20 12:28 Daptomycin 450 mg/ Sodium Chloride 55 ml @ 100 mls/hr Q24H IV 02/04/20 13:00 02/11/20 12:59 02/06/20 12:28 Dextrose (Dextrose 50%) 25 ml Q30M PRN IV Hypoglycemia 01/28/20 22:45 04/27/20 22:44 Dextrose (Dextrose 50%) 50 ml Q30M PRN IV Hypoglycemia 01/28/20 22:45 04/27/20 22:44 Epoetin Haseeb (Epoetin Haseeb-EPBX(NON ESRD)) 8,000 unit WED-WED-WED SUBQ 02/05/20 21:00 05/05/20 20:59 02/05/20 21:20 Heparin Sodium (Porcine) (Heparin 5000 units/ml) 5,000 units EVERY 12 HOURS SUBQ 01/29/20 09:00 03/14/20 08:59 02/06/20 08:33 Insulin Aspart (NovoLOG) Q6HR SUBQ 01/29/20 00:00 04/28/20 00:00 02/06/20 13:41 Insulin Detemir (Levemir) 16 units BID SUBQ 02/04/20 18:00 05/04/20 17:59 02/06/20 08:34 Ipratropium [place] (Atrovent) 500 mcg Q4HRT HHN 02/03/20 03:00 02/08/20 02:59 02/06/20 11:28 Isosorbide Mononitrate (Imdur) 30 mg DAILY ORAL 02/02/20 09:00 03/03/20 08:59 02/06/20 08:29 Metoprolol Tartrate (Lopressor) 25 mg Q12HR ORAL 02/04/20 21:00 05/04/20 20:59 02/06/20 08:29 Nitroglycerin (Ntg) 0.4 mg Q5M PRN SL Prn Chest Pain 02/01/20 08:00 03/02/20 07:59 02/03/20 06:17 Ondansetron HCl (Zofran) 4 mg Q6H PRN IVP Nausea & Vomiting 01/28/20 22:45 02/27/20 22:44 02/01/20 18:10 Pantoprazole (Protonix) 40 mg EVERY 12 HOURS IVP 02/01/20 22:00 03/02/20 21:59 02/06/20 08:28 Messi Lopez MD Feb 06, 2020 14:35
--- NOTE | 2020-02-06 14:57 | Diagnostic Imaging Report ---
Indication: Reason For Exam: ABN LABS Technique: Coronal and axial single shot fast spin-echo breath-hold, axial T2 FRFSE, 2-D thick slab MRCP, AXIAL 2-D FIESTA fat saturated, axial 3-D dual echo breath-hold, water weighted axial LAVA FLEX, revealed 3-D MRCP images were obtained of the abdomen. MIP reconstructions were generated of the bile ducts Comparison: No comparison MRI. Reference made to abdomen pelvis CT 08/28/2018. Findings: No gallstones. No biliary ductal dilatation. No biliary ductal filling defects are demonstrated. Mildly prominent but otherwise unremarkable pancreatic duct. The liver, gallbladder, bile ducts, pancreas, spleen, adrenals, kidneys are unremarkable. There is trace perinephric fluid bilaterally. A small amount of fluid is seen in the peritoneal space over the dome of the liver. There is a small right pleural effusion. Impression: Negative for gallstones or dilated bile ducts or choledocholithiasis. Trace intraperitoneal fluid Small right pleural effusion Trace perinephric fluid, nonspecific
[2020-02-06 16:00] VITALS: BP 118/69
--- NOTE | 2020-02-06 16:50 | NUR ---
CASE MANAGEMENT:REVIEW SI;SEPSIS. ACUTE RESPIRATORY FAILURE. NSTEMI. AFB'S NEGATIVE X3. 98.2 98 20 174/84 96% ON RA NO LABS AVAILABLE IS;IV DAPTOMYCIN Q24 EPOETIN SQ MWF NORCO PO Q4HRS PRN PAIN LOPRESSOR PO Q12 LEVEMIR SQ BID NORVASC PO QD ASA PO QD HEPARIN SQ Q12 MED SURG STATUS DCP;FORM HOME
--- NOTE | 2020-02-06 19:53 | NUR ---
NURSE HAND-OFF: Important Events on Shift:MRI abd Patient Status: stable Diet: CCHO M Pending Orders: n/a Pending Results/Labs:n/a Pending MD notification:n/a Latest Vital Signs: Temperature 98.4 , Pulse 78 , B/P 118 /69 , Respiratory Rate 19 , O2 SAT 98 , Room Air, O2 Flow Rate 2.0 . Vital Sign Comment: stable Latest Pineda Fall Score: 35 Fall Risk: Medium Risk Safety Measures: Call light Within Reach, Bed Alarm Zone 1, Side Rails Side Rails x3, Bed position Low and Locked. Fall Precautions: Yellow Socks Yellow Gown Door Sign Patient Fall Education Report given to JO-ANN Ambrose.
[2020-02-06 20:00] VITALS: BP 162/82
--- NOTE | 2020-02-06 20:00 | NUR ---
NURSE NOTES: Received patient awake in bed, AOx4, no s/s of acute distress, IV access intact running IV abx. Dinner tray refused, will drink Ensure instead. Bed low and locked, patient clean. Flores catheter noted, draining yellow liquid.
[2020-02-06] MEDS: Dyna-Hex 2% Top Sol 2oz TOPIC SCH (20:58)
--- NOTE | 2020-02-06 22:08 | General Progress Note ---
Subjective Constitutional: Denies: malaise Allergies: Coded Allergies: No Known Allergies (Unverified , 07/30/15) Subjective Above noted no on med surg floor swallowing complaints resolved MRI negative Objective Last 24 Hour Vital Signs Date Time Temp Pulse Resp B/P (MAP) Pulse Ox O2 Delivery O2 Flow Rate FiO2 02/06/20 21:29 98.4 02/06/20 20:58 77 118/69 02/06/20 20:00 97.3 78 20 162/82 (108) 98 02/06/20 19:19 77 16 99 Room Air 21 80 16 96 02/06/20 17:37 98.4 02/06/20 16:00 98.4 78 19 118/69 (85) 98 02/06/20 15:56 76 16 99 Room Air 21 74 16 95 02/06/20 12:28 160/79 02/06/20 12:00 97.2 67 19 160/79 (106) 100 02/06/20 11:28 72 16 98 Room Air 21 66 16 94 02/06/20 08:30 94 174/84 02/06/20 08:29 174/84 02/06/20 08:29 94 174/84 02/06/20 08:29 174/84 02/06/20 08:28 98 15 99 Room Air 21 94 15 96 02/06/20 08:00 98.1 94 19 174/84 (114) 98 02/06/20 04:00 97.6 69 20 136/78 (97) 97 02/06/20 03:26 70 18 99 Room Air 21 02/06/20 03:16 68 18 97 Room Air 21 02/06/20 00:00 98.1 72 20 148/84 (105) 96 02/05/20 23:26 72 18 99 Room Air 21 02/05/20 23:16 70 18 97 Room Air 21 Height (Feet): 5 Height (Inches): 1.00 Weight (Pounds): 168 Objective WDWN NCAT supple CTA RR Abd soft ND mild edema Assessment/Plan Assessment/Plan: Assessment - hepatitis C with nodular liver - Swallowing Sx - resolved - HTN - COPD - Lung mass - DM - PSVT Recommendations - po as tolerated - follow LFT - PPI - Elevate HOB - outpatient HCV Rx Feliberto Pérez MD Feb 06, 2020 22:08
--- NOTE | 2020-02-06 22:29 | Cardiology Progress Note ---
Subjective DATE OF SERVICE: Feb 06, 2020 +bacteremia noted. TTE with degenerative aortic stenosis; no obvious vegetation Stabilized heart rates. Blood glucose remains elevated. Na+ level corrected with hypotonic hydration last nite. Less congestion and SOB. O2 requirements decreasing. No recurrent CP, but troponin peaked at 4.65, and is normalizing 2D Echo reviewed - EF 45%, severe pulmonary hypertension, mild-moderate AV stenosis with ESTHER 1.5cm2 CXR (02/02) with cavitary lesion and mild congestive changes. Objective Last 24 Hour Vital Signs Date Time Temp Pulse Resp B/P (MAP) Pulse Ox O2 Delivery O2 Flow Rate FiO2 02/06/20 21:29 98.4 02/06/20 20:58 77 118/69 02/06/20 20:00 97.3 78 20 162/82 (108) 98 02/06/20 19:19 77 16 99 Room Air 21 80 16 96 02/06/20 17:37 98.4 02/06/20 16:00 98.4 78 19 118/69 (85) 98 02/06/20 15:56 76 16 99 Room Air 21 74 16 95 02/06/20 12:28 160/79 02/06/20 12:00 97.2 67 19 160/79 (106) 100 02/06/20 11:28 72 16 98 Room Air 21 66 16 94 02/06/20 08:30 94 174/84 02/06/20 08:29 174/84 02/06/20 08:29 94 174/84 02/06/20 08:29 174/84 02/06/20 08:28 98 15 99 Room Air 21 94 15 96 02/06/20 08:00 98.1 94 19 174/84 (114) 98 02/06/20 04:00 97.6 69 20 136/78 (97) 97 02/06/20 03:26 70 18 99 Room Air 21 02/06/20 03:16 68 18 97 Room Air 21 02/06/20 00:00 98.1 72 20 148/84 (105) 96 02/05/20 23:26 72 18 99 Room Air 21 02/05/20 23:16 70 18 97 Room Air 21 HEENT: normal ENT inspection RHYTHM: NSR LUNGS: bilat. rhonchi and rales CARDIAC: systolic murmur - 1/6 at base ABDOMEN: normal bowel sounds, non tender, soft EXTREMITIES: normal range of motion, non-pitting Assessment/Plan Assessment/Plan Bacteremia due to lung mass and recurrent pulmonary infections. + risk for endocarditis, but increased risk for PORFIRIO. Acute CA Lung mass - prior benign biopsy Pneumonia with cavitation Mild-mod degenerative aortic stenosis Acute renal failure Pulmonary hypertension (est PAsyst 58mmHg) Hypertension with labile BP range. Anemia Dehydration/hypernatremia corrected IRDM with elevated glucose. Sinus bradycardia on beta rusty rx. Orders updated Meds reviewed. Favor prolonged antibiotics course; PORFIRIO increased risk, and will not obviate need for extended therapy. Discussed with ID attending Evans Trinidad MD Feb 06, 2020 22:28
[2020-02-07] VITALS: BP 159/85
[2020-02-07] MEDS: Ipratropium 0.02% Inh Soln 2.5ml UD HHN SCH ×6 (02:56→23:16)
[2020-02-07] MEDS: HYDROcodone/Acetamin 10/325 tab ORAL PRN ×4 (03:06→20:07)
[2020-02-07 04:00] VITALS: BP 156/87
[2020-02-07] MEDS: NovoLOG Insulin Flexpen SUBQ SCH ×4 (05:24→23:53)
--- NOTE | 2020-02-07 07:37 | NUR ---
HAND-OFF: Report given to JO-ANN Lugo.
--- NOTE | 2020-02-07 07:45 | NUR ---
NURSE NOTES: Patient alert x4; on room air, no sing of distress and shortness of breath; no sing of chest pain; Flores in place, drains yellow urine; side rails up x2, breaks engaged, bed at lowest position; call light within reach; will keep monitoring.
[2020-02-07 08:00] VITALS: BP 162/89
[2020-02-07] MEDS: Imdur 30mg tab ORAL SCH (08:30)
[2020-02-07] MEDS: Aspirin Baby 81mg ORAL SCH (08:30)
[2020-02-07] MEDS: Pantoprazole Inj IVP SCH ×2 (08:30→20:04)
[2020-02-07] MEDS: Heparin 5000 units/ml inj SUBQ SCH ×2 (08:31→20:04)
[2020-02-07] MEDS: Levemir Flexpen SUBQ SCH ×2 (08:32→17:17)
--- NOTE | 2020-02-07 11:07 | Infectious Diseases Prog Note ---
Assessment/Plan Assessment/Plan antibiotics : daptomycin iv A 1. cavitary pneumonia sputum AFB negative x 3 2. MRSA sepsis r/o endocarditis 3. diabetes mellitus 4. hypertension 5. COPD 6. renal failure improving 7. aortic stenosis P 1. continue daptomycin 2. blood culture 3. will follow up cultures Subjective Constitutional: Denies: fever, chills Respiratory: Denies: shortness of breath, dry cough Gastrointestinal/Abdominal: Denies: nausea, vomiting, diarrhea Musculoskeletal: Reports: pain Allergies: Coded Allergies: No Known Allergies (Unverified , 07/30/15) Objective Last 24 Hour Vital Signs Date Time Temp Pulse Resp B/P (MAP) Pulse Ox O2 Delivery O2 Flow Rate FiO2 02/07/20 09:05 97.0 02/07/20 08:30 93 162/89 02/07/20 08:30 162/89 02/07/20 08:30 93 162/89 02/07/20 08:00 97.0 93 20 162/89 (113) 98 02/07/20 08:00 83 18 99 Room Air 21 81 18 98 02/07/20 04:00 97.7 78 20 156/87 (110) 98 02/07/20 03:36 98.2 02/07/20 03:01 159/85 02/07/20 00:00 98.2 72 20 159/85 (109) 98 02/06/20 23:13 80 16 99 Room Air 21 76 16 95 02/06/20 21:29 98.4 02/06/20 20:58 77 118/69 02/06/20 20:00 97.3 78 20 162/82 (108) 98 02/06/20 19:19 77 16 99 Room Air 21 80 16 96 02/06/20 17:37 98.4 02/06/20 16:00 98.4 78 19 118/69 (85) 98 02/06/20 15:56 76 16 99 Room Air 21 74 16 95 02/06/20 12:28 160/79 02/06/20 12:00 97.2 67 19 160/79 (106) 100 02/06/20 11:28 72 16 98 Room Air 21 66 16 94 Height (Feet): 5 Height (Inches): 1.00 Weight (Pounds): 168 Respiratory/Chest: lungs clear Cardiovascular: normal rate, regular rhythm, no gallop/murmur Abdomen: soft, non tender Extremities: other - + edema Current Medications Medications (Trade) Dose Ordered Sig/Ivana Route PRN Reason Start Time Stop Time Status Last Admin Dose Admin Acetaminophen (Tylenol) 650 mg Q6H PRN ORAL MILD PAIN, FEVER 01/28/20 22:45 02/27/20 22:44 02/05/20 21:20 Acetaminophen/ Hydrocodone Bitart ([place] 10/325) 1 tab Q4H PRN ORAL Severe Pain (Pain Scale 7-10) 02/05/20 08:00 02/12/20 07:59 02/07/20 08:35 Acetaminophen/ Hydrocodone Bitart ([place] 5/325) 1 tab Q4H PRN ORAL Moderate Pain (Pain Scale 4-6) 02/05/20 08:00 02/12/20 07:59 Amlodipine Besylate (Norvasc) 10 mg DAILY ORAL 02/01/20 09:00 03/02/20 08:59 02/07/20 08:30 Aspirin (ASA) 81 mg DAILY ORAL 01/29/20 09:00 03/14/20 08:59 02/07/20 08:30 Chlorhexidine Gluconate (Divina-Hex 2%) 1 applic DAILY@2000 TOPIC 01/29/20 20:00 04/28/20 19:59 02/06/20 20:58 Clonidine HCl (Catapres Tab) 0.1 mg Q4H PRN ORAL SBP > 150mmHg 02/06/20 07:00 05/06/20 06:59 02/07/20 03:01 Daptomycin 450 mg/ Sodium Chloride 55 ml @ 100 mls/hr Q24H IV 02/04/20 13:00 02/11/20 12:59 02/06/20 12:28 Dextrose (Dextrose 50%) 25 ml Q30M PRN IV Hypoglycemia 01/28/20 22:45 04/27/20 22:44 Dextrose (Dextrose 50%) 50 ml Q30M PRN IV Hypoglycemia 01/28/20 22:45 04/27/20 22:44 Epoetin Haseeb (Epoetin Haseeb-EPBX(NON ESRD)) 8,000 unit WED-WED-WED SUBQ 02/05/20 21:00 05/05/20 20:59 02/05/20 21:20 Heparin Sodium (Porcine) (Heparin 5000 units/ml) 5,000 units EVERY 12 HOURS SUBQ 01/29/20 09:00 03/14/20 08:59 02/07/20 08:31 Insulin Aspart (NovoLOG) Q6HR SUBQ 01/29/20 00:00 04/28/20 00:00 02/06/20 23:13 Insulin Detemir (Levemir) 16 units BID SUBQ 02/04/20 18:00 05/04/20 17:59 02/07/20 08:32 Ipratropium [place] (Atrovent) 500 mcg Q4HRT HHN 02/03/20 03:00 02/08/20 02:59 02/07/20 08:00 Isosorbide Mononitrate (Imdur) 30 mg DAILY ORAL 02/02/20 09:00 03/03/20 08:59 02/07/20 08:30 Metoprolol Tartrate (Lopressor) 25 mg Q12HR ORAL 02/04/20 21:00 05/04/20 20:59 02/07/20 08:30 Nitroglycerin (Ntg) 0.4 mg Q5M PRN SL Prn Chest Pain 02/01/20 08:00 03/02/20 07:59 02/03/20 06:17 Ondansetron HCl (Zofran) 4 mg Q6H PRN IVP Nausea & Vomiting 01/28/20 22:45 02/27/20 22:44 02/01/20 18:10 Pantoprazole (Protonix) 40 mg EVERY 12 HOURS IVP 02/01/20 22:00 03/02/20 21:59 02/07/20 08:30 Messi Lopez MD Feb 07, 2020 11:07
--- NOTE | 2020-02-07 11:50 | NUR ---
NURSE NOTES: Patient's bilateral legs are edematous, asking something to help lower the edema. I communicated MD Feliz regarding this matter. Waiting for order.
--- NOTE | 2020-02-07 11:53 | NUR ---
NURSE NOTES: Received order from MD Feliz, order carried out as order given;
[2020-02-07 12:00] VITALS: BP 134/89
--- NOTE | 2020-02-07 13:58 | Critical Care Progress Note ---
Assessment/Plan Assessment/Plan IMPRESSION acute respiratory failure leukocytosis sepsis ARF toxic met encephalopathy COPD DM poor control cavitary lesion negative AFB groundglass infiltrates NSTEMI severe PCM hypertension left shoulder pain bacteremia MRSA PLAN stable off tele will start lasix and monitor lab data and edema antibiotics per ID will need lung biopsy to assess further; can be done as outpatient PO with caution cardiology follow up nitro PRN titrate BP meds monitor wbc repeat imaging for change IV antibiotics and consider PORFIRIO impression, plan, and exam edited and reviewed in detail care discussed with broommaking supervisor - Subjective I&O: Intake and Output 0 02/06/20 02/07/20 19:00 07:00 Intake Total 360 ml Output Total 1300 ml 800 ml Balance -1300 ml -440 ml Other 360 ml Output Urine Total 1300 ml 800 ml Critical Care - Objective Last 24 Hour Vital Signs Date Time Temp Pulse Resp B/P (MAP) Pulse Ox O2 Delivery O2 Flow Rate FiO2 02/07/20 09:05 97.0 02/07/20 08:30 93 162/89 02/07/20 08:30 162/89 02/07/20 08:30 93 162/89 02/07/20 08:00 97.0 93 20 162/89 (113) 98 02/07/20 08:00 83 18 99 Room Air 21 81 18 98 02/07/20 04:00 97.7 78 20 156/87 (110) 98 02/07/20 03:36 98.2 02/07/20 03:01 159/85 02/07/20 00:00 98.2 72 20 159/85 (109) 98 02/06/20 23:13 80 16 99 Room Air 21 76 16 95 02/06/20 21:29 98.4 02/06/20 20:58 77 118/69 02/06/20 20:00 97.3 78 20 162/82 (108) 98 02/06/20 19:19 77 16 99 Room Air 21 80 16 96 02/06/20 17:37 98.4 02/06/20 16:00 98.4 78 19 118/69 (85) 98 02/06/20 15:56 76 16 99 Room Air 21 74 16 95 Objective: WDWN ill appearing reduced breath sounds bilaterally without rhonchi or wheeze [id number] without MRG NABS nontender no HSM no CC worsening leg edema nonfocal Accucheck: 297 Germán Feliz MD Feb 07, 2020 13:58
[2020-02-07] MEDS: DAPTOmycin 450 MG in NS 55 ML IV SCH (15:16)
[2020-02-07 16:00] VITALS: BP 126/70
--- NOTE | 2020-02-07 16:54 | NUR ---
CASE MANAGEMENT:REVIEW SI;SEPSIS. ACUTE RESPIRATORY FAILURE. NSTEMI. AFB'S NEGATIVE X3. 98.4 93 20 162/89 97% ON RA IS;LASIX IV CLONIDINE PO EPOETIN [place]RO SUBQ M/W/F LOPRESSOR PO DAPTOMYCIN IV IMDUR PO PROTONIX IV Q12 HEPARIN SUBQ Q12 ASA PO QD MED SURG STATUS DCP;FROM HOME
--- NOTE | 2020-02-07 19:20 | Cardiology Progress Note ---
Subjective DATE OF SERVICE: Feb 07, 2020 +bacteremia noted. TTE with degenerative aortic stenosis; no obvious vegetation Stabilized heart rates. Blood glucose remains elevated. Na+ level corrected with hypotonic hydration last nite. More congestion and SOB today. O2 requirements decreasing. No recurrent CP, but troponin peaked at 4.65, and is normalizing 2D Echo reviewed - EF 45%, severe pulmonary hypertension, mild-moderate AV stenosis with ESTHER 1.5cm2 CXR (02/02) with cavitary lesion and mild congestive changes. Objective Last 24 Hour Vital Signs Date Time Temp Pulse Resp B/P (MAP) Pulse Ox O2 Delivery O2 Flow Rate FiO2 02/07/20 16:00 98.4 75 18 126/70 (88) 96 02/07/20 15:47 97.2 02/07/20 15:45 84 18 100 Room Air 21 88 16 97 02/07/20 12:00 97.2 76 19 134/89 (104) 100 02/07/20 09:05 97.0 02/07/20 08:30 93 162/89 02/07/20 08:30 162/89 02/07/20 08:30 93 162/89 02/07/20 08:00 97.0 93 20 162/89 (113) 98 02/07/20 08:00 83 18 99 Room Air 21 81 18 98 02/07/20 04:00 97.7 78 20 156/87 (110) 98 02/07/20 03:36 98.2 02/07/20 03:01 159/85 02/07/20 00:00 98.2 72 20 159/85 (109) 98 02/06/20 23:13 80 16 99 Room Air 21 76 16 95 02/06/20 21:29 98.4 02/06/20 20:58 77 118/69 02/06/20 20:00 97.3 78 20 162/82 (108) 98 02/06/20 19:19 77 16 99 Room Air 21 80 16 96 HEENT: normal ENT inspection RHYTHM: NSR LUNGS: bilat. rhonchi and rales CARDIAC: systolic murmur - 1/6 at base ABDOMEN: normal bowel sounds, non tender, soft EXTREMITIES: normal range of motion, non-pitting Assessment/Plan Assessment/Plan Bacteremia due to lung mass and recurrent pulmonary infections. + risk for endocarditis, but increased risk for PORFIRIO. Acute VT Ac/chronic diastolic CHF Lung mass - prior benign biopsy Pneumonia with cavitation Mild-mod degenerative aortic stenosis Acute renal failure Pulmonary hypertension (est PAsyst 58mmHg) Hypertension with labile BP range. Anemia Dehydration/hypernatremia corrected IRDM with elevated glucose. Sinus bradycardia on beta rusty rx. Orders updated Meds reviewed; agree with cautious diuresis. Favor prolonged antibiotics course; PORFIRIO with increased risk, and will not obviate need for extended therapy. Discussed with ID attending yesterday Evans Trinidad MD Feb 07, 2020 19:20
--- NOTE | 2020-02-07 19:23 | NUR ---
HAND-OFF: Report given to JO-ANN Dolan. Nicolette is resting, stable at this time; Flores in place; plan of care endorsed to incoming nurse;
[2020-02-07] MEDS: Dyna-Hex 2% Top Sol 2oz TOPIC SCH (19:44)
[2020-02-07 20:00] VITALS: BP 156/42
[2020-02-07] MEDS: Epoetin Alfa-EPBX (NON ESRD)4000 units/ml vial SUBQ SCH (20:04)
[2020-02-07] MEDS ORDERED: 1/2 NS 1000ml IV ONE (21:52)
[2020-02-07] MEDS ORDERED: Tubing IV Secondary IV ONE (21:52)
--- NOTE | 2020-02-07 22:20 | General Progress Note ---
Subjective Gastrointestinal/Abdominal: Denies: rectal bleeding Allergies: Coded Allergies: No Known Allergies (Unverified , 07/30/15) Subjective Above noted d/w patient re Hep C advised needs outpatient f/u for eradication Objective Last 24 Hour Vital Signs Date Time Temp Pulse Resp B/P (MAP) Pulse Ox O2 Delivery O2 Flow Rate FiO2 02/07/20 20:37 98.4 02/07/20 20:04 85 126/70 02/07/20 20:00 98.1 88 19 156/42 (80) 96 02/07/20 19:28 85 18 99 Room Air 21 88 16 93 02/07/20 16:00 98.4 75 18 126/70 (88) 96 02/07/20 15:47 97.2 02/07/20 15:45 84 18 100 Room Air 21 88 16 97 02/07/20 12:00 97.2 76 19 134/89 (104) 100 02/07/20 09:05 97.0 02/07/20 08:30 93 162/89 02/07/20 08:30 162/89 02/07/20 08:30 93 162/89 02/07/20 08:00 97.0 93 20 162/89 (113) 98 02/07/20 08:00 83 18 99 Room Air 21 81 18 98 02/07/20 04:00 97.7 78 20 156/87 (110) 98 02/07/20 03:36 98.2 02/07/20 03:01 159/85 02/07/20 00:00 98.2 72 20 159/85 (109) 98 02/06/20 23:13 80 16 99 Room Air 21 76 16 95 Intake and Output 02/06/20 02/07/20 19:00 07:00 Intake Total 360 ml Output Total 1300 ml 800 ml Balance -1300 ml -440 ml Other 360 ml Output Urine Total 1300 ml 800 ml Height (Feet): 5 Height (Inches): 1.00 Weight (Pounds): 168 Objective WDWN NCAT supple CTA RR Abd soft ND mild edema Assessment/Plan Assessment/Plan: Assessment - hepatitis C with nodular liver - Swallowing Sx - resolved - HTN - COPD - Lung mass - DM - PSVT Recommendations - po as tolerated - follow LFT - PPI - Elevate HOB - outpatient HCV Rx Feliberto Pérez MD Feb 07, 2020 22:20
[2020-02-08] VITALS: BP 148/88
[2020-02-08 04:09] VITALS: BP 157/95
[2020-02-08] MEDS: HYDROcodone/Acetamin 10/325 tab ORAL PRN ×4 (04:15→21:46)
[2020-02-08] MEDS: NovoLOG Insulin Flexpen SUBQ SCH ×3 (06:00→18:52)
--- NOTE | 2020-02-08 07:34 | NUR ---
HAND-OFF: Report given to JO-ANN Berman. Awake in bed, eating breakfast.
[2020-02-08] MEDS: Ipratropium 0.02% Inh Soln 2.5ml UD HHN SCH ×5 (07:52→22:58)
[2020-02-08 08:00] VITALS: BP 158/98
--- NOTE | 2020-02-08 08:04 | NUR ---
NURSE NOTES:pt is in the bed eating breakfast. tolerates meal well. pt is alert and verbally responsive, denies any chest pain. no SOB noted. no fever noted. no acute distress noted at this time. call light is within reach.
[2020-02-08] MEDS: Pantoprazole Inj IVP SCH ×2 (08:52→21:45)
[2020-02-08] MEDS: Aspirin Baby 81mg ORAL SCH (08:53)
[2020-02-08] MEDS: Imdur 30mg tab ORAL SCH (08:53)
[2020-02-08] MEDS: Heparin 5000 units/ml inj SUBQ SCH ×2 (08:56→21:48)
[2020-02-08] MEDS: Levemir Flexpen SUBQ SCH ×2 (09:00→18:51)
--- NOTE | 2020-02-08 10:42 | Critical Care Progress Note ---
Assessment/Plan Assessment/Plan IMPRESSION acute respiratory failure leukocytosis sepsis ARF toxic met encephalopathy COPD DM poor control cavitary lesion negative AFB groundglass infiltrates NSTEMI severe PCM hypertension left shoulder pain bacteremia MRSA PLAN stable off tele lasix and monitor lab data and edema antibiotics per ID and clearance will need lung biopsy to assess further; can be done as outpatient PO with caution cardiology follow up nitro PRN titrate BP meds monitor wbc repeat imaging for change IV antibiotics and consider PORFIRIO impression, plan, and exam edited and reviewed in detail care discussed with calender operator - Subjective EKG Rhythm: Sinus Rhythm I&O: Intake and Output 02/07/20 02/08/20 19:00 07:00 Intake Total 940 ml 400 ml Output Total 800 ml 1000 ml Balance 140 ml -600 ml Intake Oral 940 ml Other 400 ml Output Urine Total 800 ml 1000 ml Critical Care - Objective Last 24 Hour Vital Signs Date Time Temp Pulse Resp B/P (MAP) Pulse Ox O2 Delivery O2 Flow Rate FiO2 02/08/20 08:54 86 158/98 02/08/20 08:54 86 158/98 02/08/20 08:53 158/98 02/08/20 08:00 97.2 86 22 158/98 (118) 96 02/08/20 07:53 79 18 100 Room Air 21 72 16 96 02/08/20 04:45 97.7 02/08/20 04:15 157/95 02/08/20 04:09 97.7 77 16 157/95 (115) 96 02/08/20 03:27 78 16 100 Room Air 21 02/08/20 00:00 97.7 88 19 148/88 (108) 96 02/07/20 23:17 78 16 100 Room Air 21 76 16 95 02/07/20 20:37 98.4 02/07/20 20:04 85 126/70 02/07/20 20:00 98.1 88 19 156/42 (80) 96 02/07/20 19:28 85 18 99 Room Air 21 88 16 93 02/07/20 16:00 98.4 75 18 126/70 (88) 96 02/07/20 15:47 97.2 02/07/20 15:45 84 18 100 Room Air 21 88 16 97 02/07/20 12:00 97.2 76 19 134/89 (104) 100 Objective: WDWN ill appearing reduced breath sounds bilaterally without rhonchi or wheeze [id number] without MRG NABS nontender no HSM no CC worsening leg edema nonfocal Micro: Microbiology Date/Time Source Procedure Growth Status 02/06/20 15:10 Blood Blood Culture - Preliminary Resulted Accucheck: 102 Germán Feliz MD Feb 08, 2020 10:42
[2020-02-08 12:00] VITALS: BP_SYST 155; BP_SYST 168; BP_DIAS 90
[2020-02-08] MEDS: DAPTOmycin 450 MG in NS 55 ML IV SCH (12:55)
--- NOTE | 2020-02-08 12:57 | Infectious Diseases Prog Note ---
Assessment/Plan Assessment/Plan A 1. cavitary pneumonia sputum AFB negative x 3 2. staph aureus (MRSA) sepsis r/o endocarditis 3. diabetes mellitus 4. hypertension 5. COPD 6. renal failure 7. aortic stenosis 8. Anemia 9. CHF, EF=40-45% P 1. Continue Daptomycin 2. will f/u cultures Subjective ROS Limited/Unobtainable: No Constitutional: Reports: no symptoms Respiratory: Reports: no symptoms Cardiovascular: Reports: no symptoms Gastrointestinal/Abdominal: Reports: constipation Genitourinary: Reports: no symptoms Musculoskeletal: Reports: swelling Allergies: Coded Allergies: No Known Allergies (Unverified , 07/30/15) Objective Last 24 Hour Vital Signs Date Time Temp Pulse Resp B/P (MAP) Pulse Ox O2 Delivery O2 Flow Rate FiO2 02/08/20 11:21 72 16 100 Room Air 21 02/08/20 08:54 86 158/98 02/08/20 08:54 86 158/98 02/08/20 08:53 158/98 02/08/20 08:00 97.2 86 22 158/98 (118) 96 02/08/20 07:53 79 18 100 Room Air 21 72 16 96 02/08/20 04:45 97.7 02/08/20 04:15 157/95 02/08/20 04:09 97.7 77 16 157/95 (115) 96 02/08/20 03:27 78 16 100 Room Air 21 02/08/20 00:00 97.7 88 19 148/88 (108) 96 02/07/20 23:17 78 16 100 Room Air 21 76 16 95 02/07/20 20:37 98.4 02/07/20 20:04 85 126/70 02/07/20 20:00 98.1 88 19 156/42 (80) 96 02/07/20 19:28 85 18 99 Room Air 21 88 16 93 02/07/20 16:00 98.4 75 18 126/70 (88) 96 02/07/20 15:47 97.2 02/07/20 15:45 84 18 100 Room Air 21 88 16 97 Height (Feet): 5 Height (Inches): 1.00 Weight (Pounds): 168 HEENT: mucous membranes moist Respiratory/Chest: lungs clear Cardiovascular: normal rate Abdomen: soft, non tender Extremities: other - lergs edema Neurologic/Psychiatric: alert, oriented x 3, responsive Microbiology Date/Time Source Procedure Growth Status 02/06/20 15:10 Blood Blood Culture - Preliminary Resulted Laboratory Tests Test 02/08/20 05:51 POC Whole Blood Glucose 100 MG/DL (74-106) Current Medications Medications (Trade) Dose Ordered Sig/Ivana Route PRN Reason Start Time Stop Time Status Last Admin Dose Admin Acetaminophen (Tylenol) 650 mg Q6H PRN ORAL MILD PAIN, FEVER 01/28/20 22:45 02/27/20 22:44 02/05/20 21:20 Acetaminophen/ Hydrocodone Bitart ([place] 10/325) 1 tab Q4H PRN ORAL Severe Pain (Pain Scale 7-10) 02/05/20 08:00 02/12/20 07:59 02/08/20 04:15 Acetaminophen/ Hydrocodone Bitart ([place] 5/325) 1 tab Q4H PRN ORAL Moderate Pain (Pain Scale 4-6) 02/05/20 08:00 02/12/20 07:59 02/08/20 09:09 Amlodipine Besylate (Norvasc) 10 mg DAILY ORAL 02/01/20 09:00 03/02/20 08:59 02/08/20 08:54 Aspirin (ASA) 81 mg DAILY ORAL 01/29/20 09:00 03/14/20 08:59 02/08/20 08:53 Chlorhexidine Gluconate (Divina-Hex 2%) 1 applic DAILY@2000 TOPIC 01/29/20 20:00 04/28/20 19:59 02/06/20 20:58 Clonidine HCl (Catapres Tab) 0.1 mg Q4H PRN ORAL SBP > 150mmHg 02/06/20 07:00 05/06/20 06:59 02/08/20 04:15 Daptomycin 450 mg/ Sodium Chloride 55 ml @ 100 mls/hr Q24H IV 02/04/20 13:00 02/11/20 12:59 02/07/20 15:16 Dextrose (Dextrose 50%) 25 ml Q30M PRN IV Hypoglycemia 01/28/20 22:45 04/27/20 22:44 Dextrose (Dextrose 50%) 50 ml Q30M PRN IV Hypoglycemia 01/28/20 22:45 04/27/20 22:44 Epoetin Haseeb (Epoetin Haseeb-EPBX(NON ESRD)) 8,000 unit WED-WED-WED SUBQ 02/05/20 21:00 05/05/20 20:59 02/07/20 20:04 Furosemide (Lasix) 20 mg DAILY IV 02/07/20 12:30 03/08/20 12:29 02/08/20 08:52 Heparin Sodium (Porcine) (Heparin 5000 units/ml) 5,000 units EVERY 12 HOURS SUBQ 01/29/20 09:00 03/14/20 08:59 02/08/20 08:56 Insulin Aspart (NovoLOG) Q6HR SUBQ 01/29/20 00:00 04/28/20 00:00 02/08/20 12:51 Insulin Detemir (Levemir) 10 units BID SUBQ 02/08/20 18:00 05/04/20 17:59 Ipratropium [place] (Atrovent) 500 mcg Q4HRT HHN 02/08/20 07:00 02/13/20 06:59 02/08/20 07:52 Isosorbide Mononitrate (Imdur) 30 mg DAILY ORAL 02/02/20 09:00 03/03/20 08:59 02/08/20 08:53 Metoprolol Tartrate (Lopressor) 25 mg Q12HR ORAL 02/04/20 21:00 05/04/20 20:59 02/08/20 08:54 Nitroglycerin (Ntg) 0.4 mg Q5M PRN SL Prn Chest Pain 02/01/20 08:00 03/02/20 07:59 02/03/20 06:17 Ondansetron HCl (Zofran) 4 mg Q6H PRN IVP Nausea & Vomiting 01/28/20 22:45 02/27/20 22:44 02/01/20 18:10 Pantoprazole (Protonix) 40 mg EVERY 12 HOURS IVP 02/01/20 22:00 03/02/20 21:59 02/08/20 08:52 Anderson Durham MD Feb 08, 2020 12:57
[2020-02-08 16:00] VITALS: BP 168/90
--- NOTE | 2020-02-08 19:08 | General Progress Note ---
Subjective Allergies: Coded Allergies: No Known Allergies (Unverified , 07/30/15) Subjective Above noted d/w patient re Hep C advised needs outpatient f/u for eradication Objective Last 24 Hour Vital Signs Date Time Temp Pulse Resp B/P (MAP) Pulse Ox O2 Delivery O2 Flow Rate FiO2 02/08/20 16:00 97.9 89 20 168/90 (116) 100 02/08/20 12:00 97.9 76 20 155/90 (111) 96 02/08/20 11:21 72 16 100 Room Air 21 02/08/20 08:54 86 158/98 02/08/20 08:54 86 158/98 02/08/20 08:53 158/98 02/08/20 08:00 97.2 86 22 158/98 (118) 96 02/08/20 07:53 79 18 100 Room Air 21 72 16 96 02/08/20 04:45 97.7 02/08/20 04:15 157/95 02/08/20 04:09 97.7 77 16 157/95 (115) 96 02/08/20 03:27 78 16 100 Room Air 21 02/08/20 00:00 97.7 88 19 148/88 (108) 96 02/07/20 23:17 78 16 100 Room Air 21 76 16 95 02/07/20 20:37 98.4 02/07/20 20:04 85 126/70 02/07/20 20:00 98.1 88 19 156/42 (80) 96 02/07/20 19:28 85 18 99 Room Air 21 88 16 93 Intake and Output 02/07/20 02/08/20 19:00 07:00 Intake Total 940 ml 400 ml Output Total 800 ml 1000 ml Balance 140 ml -600 ml Intake Oral 940 ml Other 400 ml Output Urine Total 800 ml 1000 ml Laboratory Tests 02/08/20 05:51: POC Whole Blood Glucose 100 02/08/20 17:35: POC Whole Blood Glucose 196H Height (Feet): 5 Height (Inches): 1.00 Weight (Pounds): 168 Objective WDWN NCAT supple CTA RR Abd soft ND mild edema Assessment/Plan Assessment/Plan: Assessment - hepatitis C with nodular liver, PCR (+) - Swallowing Sx - resolved - HTN - COPD - Lung mass - DM - PSVT Recommendations - po as tolerated - follow LFT - PPI - [facility] HOB - outpatient HCV Rx Feliberto Pérez MD Feb 08, 2020 19:08
--- NOTE | 2020-02-08 19:43 | NUR ---
HAND-OFF: Report given to WALTER.
--- NOTE | 2020-02-08 19:44 | NUR ---
NURSE NOTES: Received a pt awake,A&Ox4, and verbal. Pt has no sob,fever, cough and pain at the moment. Iv is intact and asymptomatic. Pt has Flores cath and draining well. Bed is in the lowest position,locked,alarm on, and call light within reach. We will keep monitoring the pt.
[2020-02-08 20:00] VITALS: BP 167/84
[2020-02-08] MEDS: Dyna-Hex 2% Top Sol 2oz TOPIC SCH (20:00)
[2020-02-09] VITALS: BP 147/83
[2020-02-09] MEDS: NovoLOG Insulin Flexpen SUBQ SCH ×4 (00:26→18:36)
[2020-02-09] MEDS: Ipratropium 0.02% Inh Soln 2.5ml UD HHN SCH ×7 (02:45→23:08)
[2020-02-09 04:00] VITALS: BP 171/91
[2020-02-09] MEDS: HYDROcodone/Acetamin 10/325 tab ORAL PRN ×4 (04:59→18:26)
--- NOTE | 2020-02-09 06:20 | NUR ---
NURSE HAND-OFF: Important Events on Shift:na Patient Status: stable Diet: ccho Pending Orders: Pending Results/Labs: Pending MD notification: Latest Vital Signs: Temperature 97.9 , Pulse 79 , B/P 171 /91 , Respiratory Rate 20 , O2 SAT 96 , Room Air, O2 Flow Rate 2.0 . Vital Sign Comment: Latest Pineda Fall Score: 35 Fall Risk: Medium Risk Safety Measures: Call light Within Reach, Bed Alarm Zone 1, Side Rails Side Rails x3, Bed position Low and Locked. Fall Precautions: Yellow Socks Yellow Gown Door Sign Patient Fall Education.
--- NOTE | 2020-02-09 07:22 | NUR ---
HAND-OFF: Report given to JO-ANN Chu.
--- NOTE | 2020-02-09 07:56 | NUR ---
NURSE NOTES:pt is siting up in the bed awake and verbally responsive. complain of right shoulder pain, rates her pain level to be 2/10. pain medication is not due at this time. Flores catheter inplace. drains pale yellow urine with no sediments. BLE elevated on a pillow due to edema. no acute distress noted at this time. call light within reach.
[2020-02-09 08:00] VITALS: BP 157/90
[2020-02-09] MEDS: Levemir Flexpen SUBQ SCH ×2 (09:00→18:34)
[2020-02-09] MEDS: Aspirin Baby 81mg ORAL SCH (09:17)
[2020-02-09] MEDS: Pantoprazole Inj IVP SCH ×2 (09:17→21:55)
[2020-02-09] MEDS: Imdur 30mg tab ORAL SCH (09:17)
[2020-02-09] MEDS: Heparin 5000 units/ml inj SUBQ SCH ×2 (09:19→22:02)
--- NOTE | 2020-02-09 11:24 | Infectious Diseases Prog Note ---
Assessment/Plan Assessment/Plan antibiotics : daptomycin iv A 1. cavitary pneumonia sputum AFB negative x 3 2. MRSA sepsis r/o endocarditis 3. diabetes mellitus 4. hypertension 5. COPD 6. renal failure improving 7. aortic stenosis 8. + blood culture with bacillus likely contaminated P 1. continue daptomycin 2. CT left shoulder 3. will follow up cultures Subjective Constitutional: Denies: fever, chills Respiratory: Denies: shortness of breath, dry cough Gastrointestinal/Abdominal: Denies: nausea, vomiting, diarrhea Musculoskeletal: Reports: pain - in left shoulder Allergies: Coded Allergies: No Known Allergies (Unverified , 07/30/15) Objective Last 24 Hour Vital Signs Date Time Temp Pulse Resp B/P (MAP) Pulse Ox O2 Delivery O2 Flow Rate FiO2 02/09/20 09:18 90 157/90 02/09/20 09:18 90 157/90 02/09/20 09:17 157/90 02/09/20 08:05 86 18 100 Room Air 21 88 16 95 02/09/20 08:00 97.7 90 19 157/90 (112) 95 02/09/20 05:29 97.9 02/09/20 04:58 171/91 02/09/20 04:00 97.9 79 20 171/91 (117) 96 02/09/20 00:00 99.0 87 19 147/83 (104) 94 02/08/20 21:46 167/84 02/08/20 21:46 100 167/84 02/08/20 20:00 97.9 100 22 167/84 (111) 98 02/08/20 19:41 83 18 100 Room Air 21 80 16 99 02/08/20 16:00 97.9 89 20 168/90 (116) 100 02/08/20 12:00 97.9 76 20 155/90 (111) 96 Height (Feet): 5 Height (Inches): 1.00 Weight (Pounds): 168 Microbiology Date/Time Source Procedure Growth Status 02/07/20 20:00 Blood Blood Culture - Preliminary NO GROWTH AFTER 24 HOURS Resulted 02/06/20 15:10 Blood Blood Culture - Preliminary Bacillus Species Resulted Laboratory Tests Test 02/08/20 17:35 POC Whole Blood Glucose 196 MG/DL (74-106) H Current Medications Medications (Trade) Dose Ordered Sig/Ivana Route PRN Reason Start Time Stop Time Status Last Admin Dose Admin Acetaminophen (Tylenol) 650 mg Q6H PRN ORAL MILD PAIN, FEVER 01/28/20 22:45 02/27/20 22:44 02/05/20 21:20 Acetaminophen/ Hydrocodone Bitart ([place] 10/325) 1 tab Q4H PRN ORAL Severe Pain (Pain Scale 7-10) 02/05/20 08:00 02/12/20 07:59 02/09/20 09:17 Acetaminophen/ Hydrocodone Bitart ([place] 5/325) 1 tab Q4H PRN ORAL Moderate Pain (Pain Scale 4-6) 02/05/20 08:00 02/12/20 07:59 02/08/20 09:09 Amlodipine Besylate (Norvasc) 10 mg DAILY ORAL 02/01/20 09:00 03/02/20 08:59 02/09/20 09:18 Aspirin (ASA) 81 mg DAILY ORAL 01/29/20 09:00 03/14/20 08:59 02/09/20 09:17 Chlorhexidine Gluconate (Divina-Hex 2%) 1 applic DAILY@2000 TOPIC 01/29/20 20:00 04/28/20 19:59 02/06/20 20:58 Clonidine HCl (Catapres Tab) 0.1 mg Q4H PRN ORAL SBP > 150mmHg 02/06/20 07:00 05/06/20 06:59 02/09/20 04:58 Daptomycin 450 mg/ Sodium Chloride 55 ml @ 100 mls/hr Q24H IV 02/04/20 13:00 02/11/20 12:59 02/08/20 12:55 Dextrose (Dextrose 50%) 25 ml Q30M PRN IV Hypoglycemia 01/28/20 22:45 04/27/20 22:44 Dextrose (Dextrose 50%) 50 ml Q30M PRN IV Hypoglycemia 01/28/20 22:45 04/27/20 22:44 Epoetin Haseeb (Epoetin Haseeb-EPBX(NON ESRD)) 8,000 unit WED-WED-WED SUBQ 02/05/20 21:00 05/05/20 20:59 02/07/20 20:04 Furosemide (Lasix) 20 mg DAILY IV 02/07/20 12:30 03/08/20 12:29 02/09/20 09:20 Heparin Sodium (Porcine) (Heparin 5000 units/ml) 5,000 units EVERY 12 HOURS SUBQ 01/29/20 09:00 03/14/20 08:59 02/09/20 09:19 Insulin Aspart (NovoLOG) Q6HR SUBQ 01/29/20 00:00 04/28/20 00:00 02/09/20 05:04 Insulin Detemir (Levemir) 10 units BID SUBQ 02/08/20 18:00 05/04/20 17:59 02/08/20 18:51 Ipratropium [place] (Atrovent) 500 mcg Q4HRT HHN 02/08/20 07:00 02/13/20 06:59 02/09/20 11:19 Isosorbide Mononitrate (Imdur) 30 mg DAILY ORAL 02/02/20 09:00 03/03/20 08:59 02/09/20 09:17 Metoprolol Tartrate (Lopressor) 25 mg Q12HR ORAL 02/04/20 21:00 05/04/20 20:59 02/09/20 09:18 Nitroglycerin (Ntg) 0.4 mg Q5M PRN SL Prn Chest Pain 02/01/20 08:00 03/02/20 07:59 02/03/20 06:17 Ondansetron HCl (Zofran) 4 mg Q6H PRN IVP Nausea & Vomiting 01/28/20 22:45 02/27/20 22:44 02/01/20 18:10 Pantoprazole (Protonix) 40 mg EVERY 12 HOURS IVP 02/01/20 22:00 03/02/20 21:59 02/09/20 09:17 Messi Lopez MD Feb 09, 2020 11:24
[2020-02-09 12:00] VITALS: BP 154/96
[2020-02-09] MEDS: DAPTOmycin 450 MG in NS 55 ML IV SCH (13:43)
--- NOTE | 2020-02-09 14:27 | NUR ---
CASE MANAGEMENT:REVIEW SI;SEPSIS. ACUTE RESPIRATORY FAILURE. NSTEMI. AFB'S NEGATIVE X3. 99.0 102 20 157/90 94% ON RA BG 297 IS;ATROVENT HHN Q4 CLONIDINE PO Q4 PRN NORCO PO Q4 PRN LOPRESSOR PO Q12 DAPTOMYCIN IV Q24 PROTONIX IV Q12 HEPARIN SUBQ Q12 IMDUR PO QD MED SURG STATUS DCP;FROM HOME
--- NOTE | 2020-02-09 14:47 | Critical Care Progress Note ---
Assessment/Plan Assessment/Plan IMPRESSION acute respiratory failure leukocytosis sepsis ARF toxic met encephalopathy COPD DM poor control cavitary lesion negative AFB groundglass infiltrates NSTEMI severe PCM hypertension left shoulder pain bacteremia MRSA PLAN stable off tele lasix as is for now antibiotics per ID and clearance will need lung biopsy to assess further; can be done as outpatient PO with caution cardiology follow up nitro PRN titrate BP meds monitor wbc for improvement repeat imaging for change IV antibiotics and defer PORFIRIO impression, plan, and exam edited and reviewed in detail care discussed with mercury cracking tester - Subjective Condition: stable EKG Rhythm: Sinus Rhythm I&O: Intake and Output 02/08/20 02/09/20 19:00 07:00 Intake Total 720 ml 400 ml Output Total 900 ml 900 ml Balance -180 ml -500 ml Intake Oral 720 ml Other 400 ml Output Urine Total 900 ml 900 ml Critical Care - Objective Last 24 Hour Vital Signs Date Time Temp Pulse Resp B/P (MAP) Pulse Ox O2 Delivery O2 Flow Rate FiO2 02/09/20 12:00 98.4 100 20 154/96 (115) 95 02/09/20 11:29 99 18 100 Room Air 21 102 18 94 02/09/20 09:18 90 157/90 02/09/20 09:18 90 157/90 02/09/20 09:17 157/90 02/09/20 08:05 86 18 100 Room Air 21 88 16 95 02/09/20 08:00 97.7 90 19 157/90 (112) 95 02/09/20 05:29 97.9 02/09/20 04:58 171/91 02/09/20 04:00 97.9 79 20 171/91 (117) 96 02/09/20 00:00 99.0 87 19 147/83 (104) 94 02/08/20 21:46 167/84 02/08/20 21:46 100 167/84 02/08/20 20:00 97.9 100 22 167/84 (111) 98 02/08/20 19:41 83 18 100 Room Air 21 80 16 99 02/08/20 16:00 97.9 89 20 168/90 (116) 100 Labs: Laboratory Tests Test 02/08/20 17:35 02/09/20 13:40 POC Whole Blood Glucose 196 MG/DL (74-106) H 297 MG/DL (74-106) H Objective: WDWN ill appearing reduced breath sounds bilaterally without rhonchi or wheeze [id number] without MRG NABS nontender no HSM no CC worsening leg edema nonfocal Micro: Microbiology Date/Time Source Procedure Growth Status 02/07/20 20:00 Blood Blood Culture - Preliminary NO GROWTH AFTER 24 HOURS Resulted 02/06/20 15:10 Blood Blood Culture - Preliminary Bacillus Species Resulted Accucheck: 297 Germán Feliz MD Feb 09, 2020 14:47
[2020-02-09 16:00] VITALS: BP 158/80
--- NOTE | 2020-02-09 16:18 | Diagnostic Imaging Report ---
Indication: Shortness of breath Technique: One view of the chest Comparison: 02/05/2020 Findings: Parenchymal opacities, volume loss and pleural thickening are again demonstrated in the right upper lobe. Bilateral pleural spaces, left lung, right lung base are clear. The heart is borderline enlarged. Impression: Unchanged, over 4 days, findings as above.
--- NOTE | 2020-02-09 17:41 | Diagnostic Imaging Report ---
Indication: Left shoulder pain Technique: Noncontrast spiral acquisitions obtained through the left shoulder Multiplanar reconstructions were generated. Total dose length product 445 mGycm. CTDIvol(s) 15 mGy. Radiation dose was minimized using automated exposure control Comparison: Shoulder radiograph dated 02/04/2019 Findings: No evidence of acute fracture. No dislocation. The joint spaces are preserved. There is mild edema of the subcutaneous fat. No definite focal fluid collection, although evaluation for such is limited in the absence of IV contrast. The included left lung demonstrates interstitial mosaic pulmonary perfusion pattern Impression: No acute bony trauma No definite soft tissue abscess. Note, however, limited evaluation for such due to the lack of IV contrast. Mosaic pulmonary perfusion pattern, nonspecific but could indicate mild pulmonary edema Note that internal drainage of the shoulder cannot be excluded with any confidence on CT scan. Consider MRI if there is high clinical suspicion The CT scanner at [facility] is accredited by the [employer] and the scans are performed using protocols designed to limit radiation exposure to as low as reasonably achievable to attain images of sufficient resolution adequate for diagnostic evaluation.
--- NOTE | 2020-02-09 19:34 | NUR ---
HAND-OFF: Report given to WALTER..
[2020-02-09 20:00] VITALS: BP 155/78
[2020-02-09] MEDS: Dyna-Hex 2% Top Sol 2oz TOPIC SCH (20:00)
--- NOTE | 2020-02-09 20:35 | General Progress Note ---
Subjective Allergies: Coded Allergies: No Known Allergies (Unverified , 07/30/15) Subjective Above noted d/w patient re Hep C advised needs outpatient f/u for eradication Objective Last 24 Hour Vital Signs Date Time Temp Pulse Resp B/P (MAP) Pulse Ox O2 Delivery O2 Flow Rate FiO2 02/09/20 19:07 83 18 99 Room Air 21 80 16 96 02/09/20 16:00 98.1 84 18 158/80 (106) 95 02/09/20 12:00 98.4 100 20 154/96 (115) 95 02/09/20 11:29 99 18 100 Room Air 21 102 18 94 02/09/20 09:18 90 157/90 02/09/20 09:18 90 157/90 02/09/20 09:17 157/90 02/09/20 08:05 86 18 100 Room Air 21 88 16 95 02/09/20 08:00 97.7 90 19 157/90 (112) 95 02/09/20 05:29 97.9 02/09/20 04:58 171/91 02/09/20 04:00 97.9 79 20 171/91 (117) 96 02/09/20 00:00 99.0 87 19 147/83 (104) 94 02/08/20 21:46 167/84 02/08/20 21:46 100 167/84 Intake and Output 02/08/20 02/09/20 19:00 07:00 Intake Total 720 ml 400 ml Output Total 900 ml 900 ml Balance -180 ml -500 ml Intake Oral 720 ml Other 400 ml Output Urine Total 900 ml 900 ml Laboratory Tests 02/09/20 13:40: POC Whole Blood Glucose 297H 02/09/20 18:31: POC Whole Blood Glucose 212H Height (Feet): 5 Height (Inches): 1.00 Weight (Pounds): 168 Objective WDWN NCAT supple CTA RR Abd soft ND mild edema Assessment/Plan Assessment/Plan: Assessment - hepatitis C with nodular liver, PCR (+) - Swallowing Sx - resolved - HTN - COPD - Lung mass - DM - PSVT Recommendations - po as tolerated - follow LFT - PPI - Elevate HOB - outpatient HCV Rx - I will return Mon to see pt Feliberto Pérez MD Feb 09, 2020 20:35
[2020-02-09] MEDS: Epoetin Alfa-EPBX (NON ESRD)4000 units/ml vial SUBQ SCH (21:54)
[2020-02-10] VITALS: BP 161/88
[2020-02-10] MEDS: HYDROcodone/Acetamin 10/325 tab ORAL PRN ×3 (00:03→11:28)
[2020-02-10] MEDS: NovoLOG Insulin Flexpen SUBQ SCH ×4 (00:10→17:23)
[2020-02-10] MEDS: Ipratropium 0.02% Inh Soln 2.5ml UD HHN SCH ×6 (03:00→23:00)
[2020-02-10 04:00] VITALS: BP 168/82
--- NOTE | 2020-02-10 07:22 | NUR ---
HAND-OFF: Report given to JO-ANN Walker.
--- NOTE | 2020-02-10 07:33 | NUR ---
NURSE NOTES: Report received from JO-ANN Sawant. Patient observed to be asleep, currently on room air, no s/sx of SOB/Distress, no s/sx of pain or discomfort. Patient with allan catheter for urinary retention, allan inplace, intact and running well. IV site located on LFA 24, inplace and intact. Bed placed on lowest and locked position, call light placed within reach and will continue to monitor for any changes in condition.
[2020-02-10 08:00] VITALS: BP 155/76
[2020-02-10] MEDS: Pantoprazole Inj IVP SCH ×2 (08:18→20:33)
[2020-02-10] MEDS: Aspirin Baby 81mg ORAL SCH (08:18)
[2020-02-10] MEDS: Heparin 5000 units/ml inj SUBQ SCH ×2 (08:20→20:35)
[2020-02-10] MEDS: Imdur 30mg tab ORAL SCH (08:20)
[2020-02-10] MEDS: Levemir Flexpen SUBQ SCH ×2 (08:22→17:21)
[2020-02-10 08:41] LABS: BASOPHILS % (AUTO) 0.7 % (0.0-2.0); HEMATOCRIT 29.7 % (37.0-47.0); HEMOGLOBIN 9.2 G/DL (12.0-16.0); MEAN CORPUSCULAR VOLUME 96 FL (80-99); MONOCYTES % (AUTO) 7.2 % (1.0-10.0); NEUTROPHILS % (AUTO) 77.3 % (45.0-75.0); PLATELET COUNT 226 K/UL (150-450); RED BLOOD COUNT 3.08 M/UL (4.20-5.40); RED CELL DISTRIBUTION WIDTH 15.2 % (11.6-14.8); WHITE BLOOD COUNT 11.1 K/UL (4.8-10.8)
--- NOTE | 2020-02-10 08:45 | General Progress Note ---
Subjective ROS Limited/Unobtainable: No Allergies: Coded Allergies: No Known Allergies (Unverified , 07/30/15) Objective Last 24 Hour Vital Signs Date Time Temp Pulse Resp B/P (MAP) Pulse Ox O2 Delivery O2 Flow Rate FiO2 02/10/20 08:21 81 155/76 02/10/20 08:21 81 155/76 02/10/20 08:20 155/76 02/10/20 05:58 97.9 02/10/20 05:27 171/67 02/10/20 04:00 97.9 92 20 168/82 (110) 95 02/10/20 00:03 161/88 02/10/20 00:00 97.5 99 20 161/88 (112) 94 02/09/20 23:09 85 18 99 Room Air 21 83 16 96 02/09/20 21:55 100 155/89 02/09/20 20:00 97.8 100 18 155/78 (103) 96 02/09/20 19:07 83 18 99 Room Air 21 80 16 96 02/09/20 16:00 98.1 84 18 158/80 (106) 95 02/09/20 12:00 98.4 100 20 154/96 (115) 95 02/09/20 11:29 99 18 100 Room Air 21 102 18 94 02/09/20 09:18 90 157/90 02/09/20 09:18 90 157/90 02/09/20 09:17 157/90 Intake and Output 02/09/20 02/10/20 19:00 07:00 Output Total 1000 ml Balance -1000 ml Output Urine Total 1000 ml # Voids 2 Laboratory Tests 02/09/20 13:40: POC Whole Blood Glucose 297H 02/09/20 18:31: POC Whole Blood Glucose 212H 02/10/20 07:25: White Blood Count [Pending], Red Blood Count [Pending], Hemoglobin [Pending], Hematocrit [Pending], Mean Corpuscular Volume [Pending], Mean Corpuscular Hemoglobin [Pending], Mean Corpuscular Hemoglobin Concent [Pending], Red Cell Distribution Width [Pending], Platelet Count [Pending], Mean Platelet Volume [Pending], Neutrophils (%) (Auto) [Pending], Lymphocytes (%) (Auto) [Pending], Monocytes (%) (Auto) [Pending], Eosinophils (%) (Auto) [Pending], Basophils (%) (Auto) [Pending], Sodium Level [Pending], Potassium Level [Pending], Chloride Level [Pending], Carbon Dioxide Level [Pending], Blood Urea Nitrogen [Pending], Creatinine [Pending], Estimat Glomerular Filtration Rate [Pending], Glucose Level [Pending], Calcium Level [Pending] 02/10/20 08:18: POC Whole Blood Glucose 244H Height (Feet): 5 Height (Inches): 1.00 Weight (Pounds): 168 General Appearance: no apparent distress EENT: normal ENT inspection Neck: supple Cardiovascular: normal rate Respiratory/Chest: decreased breath sounds Abdomen: normal bowel sounds, non tender, soft Extremities: non-tender Assessment/Plan Assessment/Plan: Assessment - hepatitis C with nodular liver, PCR (+) - Swallowing Sx - resolved - HTN - COPD - Lung mass - DM - PSVT Recommendations - po as tolerated - follow LFT - PPI - Elevate HOB - outpatient HCV Rx Pee Chan MD Feb 10, 2020 08:45
[2020-02-10 08:54] LABS: ANION GAP 5 mmol/L (5-15); BLOOD UREA NITROGEN 8 mg/dL (7-18); CARBON DIOXIDE 28 MMOL/L (21-32); CHLORIDE 104 MMOL/L (98-107); CREATININE 0.9 MG/DL (0.55-1.30); SODIUM 137 MMOL/L (136-145)
[2020-02-10 12:00] VITALS: BP 147/78
[2020-02-10] MEDS: DAPTOmycin 450 MG in NS 55 ML IV SCH (13:43)
--- NOTE | 2020-02-10 13:43 | Infectious Diseases Prog Note ---
Assessment/Plan Assessment/Plan A 1. cavitary pneumonia sputum AFB negative x 3 2. staph aureus (MRSA) sepsis r/o endocarditis 3. diabetes mellitus 4. hypertension 5. COPD 6. renal failure 7. aortic stenosis 8. Anemia 9. CHF, EF=40-45% P 1. Continue Daptomycin 2. will f/u cultures Subjective ROS Limited/Unobtainable: No Constitutional: Reports: no symptoms Respiratory: Reports: no symptoms Gastrointestinal/Abdominal: Reports: no symptoms Genitourinary: Reports: no symptoms Musculoskeletal: Reports: pain, swelling, other - neck pain Allergies: Coded Allergies: No Known Allergies (Unverified , 07/30/15) Objective Last 24 Hour Vital Signs Date Time Temp Pulse Resp B/P (MAP) Pulse Ox O2 Delivery O2 Flow Rate FiO2 02/10/20 12:00 98.5 78 18 147/78 (101) 99 02/10/20 11:26 76 18 99 Room Air 21 78 16 92 02/10/20 08:21 81 155/76 02/10/20 08:21 81 155/76 02/10/20 08:20 155/76 02/10/20 08:00 97.3 81 19 155/76 (102) 93 02/10/20 05:58 97.9 02/10/20 05:27 171/67 02/10/20 04:00 97.9 92 20 168/82 (110) 95 02/10/20 00:03 161/88 02/10/20 00:00 97.5 99 20 161/88 (112) 94 02/09/20 23:09 85 18 99 Room Air 21 83 16 96 02/09/20 21:55 100 155/89 02/09/20 20:00 97.8 100 18 155/78 (103) 96 02/09/20 19:07 83 18 99 Room Air 21 80 16 96 02/09/20 16:00 98.1 84 18 158/80 (106) 95 Height (Feet): 5 Height (Inches): 1.00 Weight (Pounds): 168 General Appearance: no acute distress HEENT: mucous membranes moist Respiratory/Chest: lungs clear Cardiovascular: normal rate Abdomen: soft, non tender Extremities: other - legs edema Neurologic/Psychiatric: alert, oriented x 3, responsive Microbiology Date/Time Source Procedure Growth Status 02/07/20 20:00 Blood Blood Culture - Preliminary NO GROWTH AFTER 48 HOURS Resulted Laboratory Tests Test 02/09/20 18:31 02/10/20 07:25 02/10/20 08:18 02/10/20 11:22 POC Whole Blood Glucose 212 MG/DL (74-106) H 244 MG/DL (74-106) H 228 MG/DL (74-106) H White Blood Count 11.1 K/UL (4.8-10.8) H Red Blood Count 3.08 M/UL (4.20-5.40) L Hemoglobin 9.2 G/DL (12.0-16.0) L Hematocrit 29.7 % (37.0-47.0) L Mean Corpuscular Volume 96 FL (80-99) Mean Corpuscular Hemoglobin 29.8 PG (27.0-31.0) Mean Corpuscular Hemoglobin Concent 31.0 G/DL (32.0-36.0) L Red Cell Distribution Width 15.2 % (11.6-14.8) H Platelet Count 226 K/UL (150-450) Mean Platelet Volume 7.1 FL (6.5-10.1) Neutrophils (%) (Auto) 77.3 % (45.0-75.0) H Lymphocytes (%) (Auto) 13.0 % (20.0-45.0) L Monocytes (%) (Auto) 7.2 % (1.0-10.0) Eosinophils (%) (Auto) 2.0 % (0.0-3.0) Basophils (%) (Auto) 0.7 % (0.0-2.0) Sodium Level 137 MMOL/L (136-145) Potassium Level 4.0 MMOL/L (3.5-5.1) Chloride Level 104 MMOL/L (98-107) Carbon Dioxide Level 28 MMOL/L (21-32) Anion Gap 5 mmol/L (5-15) Blood Urea Nitrogen 8 mg/dL (7-18) Creatinine 0.9 MG/DL (0.55-1.30) Estimat Glomerular Filtration Rate > 60 mL/min (>60) Glucose Level 281 MG/DL (74-106) H Calcium Level 8.0 MG/DL (8.5-10.1) L Current Medications Medications (Trade) Dose Ordered Sig/Ivana Route PRN Reason Start Time Stop Time Status Last Admin Dose Admin Acetaminophen (Tylenol) 650 mg Q6H PRN ORAL MILD PAIN, FEVER 01/28/20 22:45 02/27/20 22:44 02/05/20 21:20 Acetaminophen/ Hydrocodone Bitart ([place] 10/325) 1 tab Q4H PRN ORAL Severe Pain (Pain Scale 7-10) 02/05/20 08:00 02/12/20 07:59 02/10/20 11:28 Acetaminophen/ Hydrocodone Bitart ([place] 5/325) 1 tab Q4H PRN ORAL Moderate Pain (Pain Scale 4-6) 02/05/20 08:00 02/12/20 07:59 02/08/20 09:09 Amlodipine Besylate (Norvasc) 10 mg DAILY ORAL 02/01/20 09:00 03/02/20 08:59 02/10/20 08:21 Aspirin (ASA) 81 mg DAILY ORAL 01/29/20 09:00 03/14/20 08:59 02/10/20 08:18 Chlorhexidine Gluconate (Divina-Hex 2%) 1 applic DAILY@1999 TOPIC 01/29/20 20:00 04/28/20 19:59 02/06/20 20:58 Clonidine HCl (Catapres Tab) 0.1 mg Q4H PRN ORAL SBP > 150mmHg 02/06/20 07:00 05/06/20 06:59 02/10/20 05:27 Daptomycin 450 mg/ Sodium Chloride 55 ml @ 100 mls/hr Q24H IV 02/10/20 13:00 02/17/20 12:59 Dextrose (Dextrose 50%) 25 ml Q30M PRN IV Hypoglycemia 01/28/20 22:45 04/27/20 22:44 Dextrose (Dextrose 50%) 50 ml Q30M PRN IV Hypoglycemia 01/28/20 22:45 04/27/20 22:44 Epoetin Haseeb (Epoetin Haseeb-EPBX(NON ESRD)) 8,000 unit WED-WED-WED SUBQ 02/05/20 21:00 05/05/20 20:59 02/09/20 21:54 Furosemide (Lasix) 20 mg DAILY IV 02/07/20 12:30 03/08/20 12:29 02/10/20 08:19 Heparin Sodium (Porcine) (Heparin 5000 units/ml) 5,000 units EVERY 12 HOURS SUBQ 01/29/20 09:00 03/14/20 08:59 02/10/20 08:20 Insulin Aspart (NovoLOG) Q6HR SUBQ 01/29/20 00:00 04/28/20 00:00 02/10/20 11:30 Insulin Detemir (Levemir) 10 units BID SUBQ 02/08/20 18:00 05/04/20 17:59 02/10/20 08:22 Ipratropium [place] (Atrovent) 500 mcg Q4HRT HHN 02/08/20 07:00 02/13/20 06:59 02/10/20 11:16 Isosorbide Mononitrate (Imdur) 30 mg DAILY ORAL 02/02/20 09:00 03/03/20 08:59 02/10/20 08:20 Metoprolol Tartrate (Lopressor) 25 mg Q12HR ORAL 02/04/20 21:00 05/04/20 20:59 02/10/20 08:21 Nitroglycerin (Ntg) 0.4 mg Q5M PRN SL Prn Chest Pain 02/01/20 08:00 03/02/20 07:59 02/03/20 06:17 Ondansetron HCl (Zofran) 4 mg Q6H PRN IVP Nausea & Vomiting 01/28/20 22:45 02/27/20 22:44 02/01/20 18:10 Pantoprazole (Protonix) 40 mg EVERY 12 HOURS IVP 02/01/20 22:00 03/02/20 21:59 02/10/20 08:18 Anderson Durham MD Feb 10, 2020 13:43
--- NOTE | 2020-02-10 14:43 | Pulmonology Progress Note ---
Subjective ROS Limited/Unobtainable: No Constitutional: Reports: no symptoms Gastrointestinal/Abdominal: Reports: no symptoms Musculoskeletal: Reports: pain, swelling, other - neck pain Allergies: Coded Allergies: No Known Allergies (Unverified , 07/30/15) Objective Last 24 Hour Vital Signs Date Time Temp Pulse Resp B/P (MAP) Pulse Ox O2 Delivery O2 Flow Rate FiO2 02/10/20 12:00 98.5 78 18 147/78 (101) 99 02/10/20 11:26 76 18 99 Room Air 21 78 16 92 02/10/20 08:21 81 155/76 02/10/20 08:21 81 155/76 02/10/20 08:20 155/76 02/10/20 08:00 97.3 81 19 155/76 (102) 93 02/10/20 05:58 97.9 02/10/20 05:27 171/67 02/10/20 04:00 97.9 92 20 168/82 (110) 95 02/10/20 00:03 161/88 02/10/20 00:00 97.5 99 20 161/88 (112) 94 02/09/20 23:09 85 18 99 Room Air 21 83 16 96 02/09/20 21:55 100 155/89 02/09/20 20:00 97.8 100 18 155/78 (103) 96 02/09/20 19:07 83 18 99 Room Air 21 80 16 96 02/09/20 16:00 98.1 84 18 158/80 (106) 95 Intake and Output 02/09/20 02/10/20 19:00 07:00 Output Total 1000 ml Balance -1000 ml Output Urine Total 1000 ml # Voids 2 Microbiology Date/Time Source Procedure Growth Status 02/07/20 20:00 Blood Blood Culture - Preliminary NO GROWTH AFTER 48 HOURS Resulted Laboratory Tests 02/09/20 18:31: POC Whole Blood Glucose 212H 02/10/20 07:25: White Blood Count 11.1H, Red Blood Count 3.08L, Hemoglobin 9.2L, Hematocrit 29.7L, Mean Corpuscular Volume 96, Mean Corpuscular Hemoglobin 29.8, Mean Corpuscular Hemoglobin Concent 31.0L, Red Cell Distribution Width 15.2H, Platelet Count 226, Mean Platelet Volume 7.1, Neutrophils (%) (Auto) 77.3H, Lymphocytes (%) (Auto) 13.0L, Monocytes (%) (Auto) 7.2, Eosinophils (%) (Auto) 2.0, Basophils (%) (Auto) 0.7, Sodium Level 137, Potassium Level 4.0, Chloride Level 104, Carbon Dioxide Level 28, Anion Gap 5, Blood Urea Nitrogen 8, Creatinine 0.9, Estimat Glomerular Filtration Rate > 60, Glucose Level 281H, Calcium Level 8.0L 02/10/20 08:18: POC Whole Blood Glucose 244H 02/10/20 11:22: POC Whole Blood Glucose 228H Current Medications Medications (Trade) Dose Ordered Sig/Ivana Route PRN Reason Start Time Stop Time Status Last Admin Dose Admin Acetaminophen (Tylenol) 650 mg Q6H PRN ORAL MILD PAIN, FEVER 01/28/20 22:45 02/27/20 22:44 02/05/20 21:20 Acetaminophen/ Hydrocodone Bitart ([place] 10/325) 1 tab Q4H PRN ORAL Severe Pain (Pain Scale 7-10) 02/05/20 08:00 02/12/20 07:59 02/10/20 11:28 Acetaminophen/ Hydrocodone Bitart ([place] 5/325) 1 tab Q4H PRN ORAL Moderate Pain (Pain Scale 4-6) 02/05/20 08:00 02/12/20 07:59 02/08/20 09:09 Amlodipine Besylate (Norvasc) 10 mg DAILY ORAL 02/01/20 09:00 03/02/20 08:59 02/10/20 08:21 Aspirin (ASA) 81 mg DAILY ORAL 01/29/20 09:00 03/14/20 08:59 02/10/20 08:18 Chlorhexidine Gluconate (Divina-Hex 2%) 1 applic DAILY@2000 TOPIC 01/29/20 20:00 04/28/20 19:59 02/06/20 20:58 Clonidine HCl (Catapres Tab) 0.1 mg Q4H PRN ORAL SBP > 150mmHg 02/06/20 07:00 05/06/20 06:59 02/10/20 05:27 Daptomycin 450 mg/ Sodium Chloride 55 ml @ 100 mls/hr Q24H IV 02/10/20 13:00 02/17/20 12:59 02/10/20 13:43 Dextrose (Dextrose 50%) 25 ml Q30M PRN IV Hypoglycemia 01/28/20 22:45 04/27/20 22:44 Dextrose (Dextrose 50%) 50 ml Q30M PRN IV Hypoglycemia 01/28/20 22:45 04/27/20 22:44 Epoetin Haseeb (Epoetin Haseeb-EPBX(NON ESRD)) 8,000 unit WED-WED-WED SUBQ 02/05/20 21:00 05/05/20 20:59 02/09/20 21:54 Furosemide (Lasix) 20 mg DAILY IV 02/07/20 12:30 03/08/20 12:29 02/10/20 08:19 Heparin Sodium (Porcine) (Heparin 5000 units/ml) 5,000 units EVERY 12 HOURS SUBQ 01/29/20 09:00 03/14/20 08:59 02/10/20 08:20 Insulin Aspart (NovoLOG) Q6HR SUBQ 01/29/20 00:00 04/28/20 00:00 02/10/20 11:30 Insulin Detemir (Levemir) 10 units BID SUBQ 02/08/20 18:00 05/04/20 17:59 02/10/20 08:22 Ipratropium [place] (Atrovent) 500 mcg Q4HRT HHN 02/08/20 07:00 02/13/20 06:59 02/10/20 11:16 Isosorbide Mononitrate (Imdur) 30 mg DAILY ORAL 02/02/20 09:00 03/03/20 08:59 02/10/20 08:20 Metoprolol Tartrate (Lopressor) 25 mg Q12HR ORAL 02/04/20 21:00 05/04/20 20:59 02/10/20 08:21 Nitroglycerin (Ntg) 0.4 mg Q5M PRN SL Prn Chest Pain 02/01/20 08:00 03/02/20 07:59 02/03/20 06:17 Ondansetron HCl (Zofran) 4 mg Q6H PRN IVP Nausea & Vomiting 01/28/20 22:45 02/27/20 22:44 02/01/20 18:10 Pantoprazole (Protonix) 40 mg EVERY 12 HOURS IVP 02/01/20 22:00 03/02/20 21:59 02/10/20 08:18 Assessment/Plan Assessment/Plan Pulmonary Progress Note Assessment/Plan Assessment/Plan IMPRESSION pneumonia acute respiratory failure leukocytosis sepsis ARF toxic met encephalopathy COPD DM poor control cavitary lesion negative AFB x 3 groundglass infiltrates NSTEMI severe PCM hypertension left shoulder pain bacteremia MRSA PLAN stable pulmonary status lasix as is for now antibiotics per ID and clearance will need lung biopsy to assess further; can be done as outpatient PO with caution cardiology follow up nitro PRN titrate BP meds monitor wbc for improvement repeat imaging for change IV antibiotics and defer PORFIRIO impression, plan, and exam edited and reviewed in detail care discussed with RN Subjective Condition: stable Objective Vital Signs noted Labs:noted Laboratory Tests noted Objective: WDWN ill appearing reduced breath sounds bilaterally without rhonchi or wheeze [id number] without MRG NABS nontender no HSM no CC leg edema nonfocal Evans Zhang MD Feb 10, 2020 14:43
[2020-02-10 16:00] VITALS: BP 160/93
--- NOTE | 2020-02-10 19:25 | NUR ---
NURSE HAND-OFF: Important Events on Shift:pain management, iv atb Patient Status: stable Diet:ccho m Pending Orders: n/a Pending Results/Labs:n/a Pending MD notification:n/a Latest Vital Signs: Temperature 97.7 , Pulse 87 , B/P 160 /93 , Respiratory Rate 19 , O2 SAT 93 , Room Air, O2 Flow Rate 2.0 . Vital Sign Comment: stable Latest Pineda Fall Score: 35 Fall Risk: Medium Risk Safety Measures: Call light Within Reach, Bed Alarm Zone 1, Side Rails Side Rails x3, Bed position Low and Locked. Fall Precautions: Yellow Socks Yellow Gown Door Sign Patient Fall Education Report given to JO-ANN Clay.
--- NOTE | 2020-02-10 19:30 | NUR ---
NURSE NOTES: received report from ariel whatley. patient sitting on a chair, awake.on room air. no sob. right hand, saline lock.allan draining well. reiterated to call and ask for assistance to prevent fall or injury. call light and light button within easy reach. bed locked and in lowest position. will continue plan of care.
[2020-02-10 20:00] VITALS: BP 161/90
[2020-02-10] MEDS: Dyna-Hex 2% Top Sol 2oz TOPIC SCH (20:00)
[2020-02-11] VITALS: BP 138/75
[2020-02-11] MEDS: NovoLOG Insulin Flexpen SUBQ SCH ×4 (00:53→17:04)
[2020-02-11] MEDS: Ipratropium 0.02% Inh Soln 2.5ml UD HHN SCH ×6 (03:00→23:20)
[2020-02-11 04:00] VITALS: BP 153/82
--- NOTE | 2020-02-11 06:19 | NUR ---
NURSE HAND-OFF: Important Events on Shift: pain mngt, allan care,safety,blood sugar monitoring Patient Status: stable Diet: ccho Pending Orders: Pending Results/Labs: Pending MD notification: Latest Vital Signs: Temperature 97.6 , Pulse 92 , B/P 153 /82 , Respiratory Rate 19 , O2 SAT 96 , Room Air, O2 Flow Rate 2.0 . Vital Sign Comment: Latest Pineda Fall Score: 35 Fall Risk: Medium Risk Safety Measures: Call light Within Reach, Bed Alarm Zone 1, Side Rails Side Rails x3, Bed position Low and Locked. Fall Precautions: Yellow Socks Yellow Gown Door Sign Patient Fall Education Addendum: 02/11/20 at 0722 by Linda Liao RN HAND-OFF: Report given to ariel osorio.
--- NOTE | 2020-02-11 07:13 | General Progress Note ---
Subjective ROS Limited/Unobtainable: No Allergies: Coded Allergies: No Known Allergies (Unverified , 07/30/15) Objective Last 24 Hour Vital Signs Date Time Temp Pulse Resp B/P (MAP) Pulse Ox O2 Delivery O2 Flow Rate FiO2 02/11/20 06:28 105 15 99 Room Air 21 103 15 94 02/11/20 05:55 97.6 02/11/20 04:00 97.6 92 19 153/82 (105) 96 02/11/20 01:23 98.3 02/11/20 00:00 98.3 91 20 138/75 (96) 100 02/10/20 21:05 97.7 02/10/20 20:33 98 161/90 02/10/20 20:00 98.4 98 18 161/90 (113) 97 02/10/20 19:34 96 18 95 Room Air 21 94 18 92 02/10/20 19:03 160/93 02/10/20 16:42 93 18 99 Room Air 21 95 16 91 02/10/20 16:00 97.7 87 19 160/93 (115) 93 02/10/20 12:00 98.5 78 18 147/78 (101) 99 02/10/20 11:26 76 18 99 Room Air 21 78 16 92 02/10/20 08:21 81 155/76 02/10/20 08:21 81 155/76 02/10/20 08:20 155/76 02/10/20 08:00 97.3 81 19 155/76 (102) 93 Intake and Output 02/10/20 02/11/20 19:00 07:00 Intake Total 360 ml 250 ml Output Total 800 ml Balance 360 ml -550 ml Intake Oral 360 ml 250 ml Output Urine Total 800 ml Laboratory Tests 02/10/20 07:25: White Blood Count 11.1H, Red Blood Count 3.08L, Hemoglobin 9.2L, Hematocrit 29.7L, Mean Corpuscular Volume 96, Mean Corpuscular Hemoglobin 29.8, Mean Corpuscular Hemoglobin Concent 31.0L, Red Cell Distribution Width 15.2H, Platelet Count 226, Mean Platelet Volume 7.1, Neutrophils (%) (Auto) 77.3H, Lymphocytes (%) (Auto) 13.0L, Monocytes (%) (Auto) 7.2, Eosinophils (%) (Auto) 2.0, Basophils (%) (Auto) 0.7, Sodium Level 137, Potassium Level 4.0, Chloride Level 104, Carbon Dioxide Level 28, Anion Gap 5, Blood Urea Nitrogen 8, Creatinine 0.9, Estimat Glomerular Filtration Rate > 60, Glucose Level 281H, Calcium Level 8.0L 02/10/20 08:18: POC Whole Blood Glucose 244H 02/10/20 11:22: POC Whole Blood Glucose 228H 02/10/20 17:18: POC Whole Blood Glucose 211H Height (Feet): 5 Height (Inches): 1.00 Weight (Pounds): 168 General Appearance: no apparent distress EENT: normal ENT inspection Neck: normal alignment Cardiovascular: normal rate Respiratory/Chest: decreased breath sounds Abdomen: normal bowel sounds, non tender, soft Extremities: non-tender Assessment/Plan Assessment/Plan: Assessment - hepatitis C with nodular liver, PCR (+) - Swallowing Sx - resolved - HTN - COPD - Lung mass - DM - PSVT Recommendations - po as tolerated - follow LFT - PPI - Elevate HOB - outpatient HCV Rx Pee Chan MD Feb 11, 2020 07:13
[2020-02-11 08:00] VITALS: BP 162/87
--- NOTE | 2020-02-11 08:20 | NUR ---
NURSE NOTES: received patient in bed, on semi-Franco's, on room air. no respiratory distress noted. PIV right hand, saline locked. Flores catheter Fr16 in place, draining to gravity light warren urine. Call light within easy reach, side rails upx3, bed locked and in lowest position position possible. Bed alarm on. Will continue to monitor pt and follow up with the plan of care.
--- NOTE | 2020-02-11 09:27 | Consultation ---
History of Present Illness General Date patient seen: Feb 11, 2020 Chief Complaint: Present Illness Allergies: Coded Allergies: No Known Allergies (Unverified , 07/30/15) Medication History Scheduled Amlodipine Besylate (Norvasc), 10 MG ORAL DAILY Atenolol* (Tenormin*), 25 MG ORAL BID, (Reported) Doxazosin Mesylate* (Cardura*), 4 MG ORAL DAILY, (Reported) Gabapentin* (Gabapentin*), 600 MG ORAL THREE TIMES A DAY Hydrochlorothiazide* (Hydrochlorothiazide*), 25 MG ORAL DAILY, (Reported) Scheduled PRN Diazepam* (Valium*), 5 MG ORAL TID PRN for For Pain Hydrocodone Bit/Acetaminophen 5-325* ([place] 5-325 Tablet*), 1 TAB ORAL Q4H PRN for FOR PAIN Ibuprofen* (Motrin*), 600 MG ORAL Q6H PRN for FOR PAIN Meclizine Hcl (Meclizine Hcl), 25 MG ORAL THREE TIMES A DAY PRN for for dizziness Tramadol Hcl* (Ultram*), 50 MG ORAL Q6H PRN for For Pain Miscellaneous Medications Hum Insulin Nph/Reg Insulin Hm (Novolin 70-30 100 Unit/Ml Vial), (Reported) Patient History Healthcare decision maker Resuscitation status Advanced Directive on File Physical Exam Last 24 Hour Vital Signs Date Time Temp Pulse Resp B/P (MAP) Pulse Ox O2 Delivery O2 Flow Rate FiO2 02/11/20 06:28 105 15 99 Room Air 21 103 15 94 02/11/20 05:55 97.6 02/11/20 04:00 97.6 92 19 153/82 (105) 96 02/11/20 01:23 98.3 02/11/20 00:00 98.3 91 20 138/75 (96) 100 02/10/20 21:05 97.7 02/10/20 20:33 98 161/90 02/10/20 20:00 98.4 98 18 161/90 (113) 97 02/10/20 19:34 96 18 95 Room Air 21 94 18 92 02/10/20 19:03 160/93 02/10/20 16:42 93 18 99 Room Air 21 95 16 91 02/10/20 16:00 97.7 87 19 160/93 (115) 93 11/14/20 12:00 98.5 78 18 147/78 (101) 99 02/10/20 11:26 76 18 99 Room Air 21 78 16 92 Intake and Output 02/10/20 02/11/20 19:00 07:00 Intake Total 360 ml 250 ml Output Total 800 ml Balance 360 ml -550 ml Intake Oral 360 ml 250 ml Output Urine Total 800 ml Laboratory Tests Test 02/10/20 11:22 02/10/20 17:18 POC Whole Blood Glucose 228 MG/DL (74-106) H 211 MG/DL (74-106) H Height (Feet): 5 Height (Inches): 1.00 Weight (Pounds): 168 Medications Current Medications Medications (Trade) Dose Ordered Sig/Ivana Route PRN Reason Start Time Stop Time Status Last Admin Dose Admin Acetaminophen (Tylenol) 650 mg Q6H PRN ORAL MILD PAIN, FEVER 01/28/20 22:45 02/27/20 22:44 02/05/20 21:20 Acetaminophen/ Hydrocodone Bitart ([place] 10/325) 1 tab Q4H PRN ORAL Moderate Pain (Pain Scale 4-6) 02/05/20 08:00 02/12/20 07:59 02/10/20 11:28 Amlodipine Besylate (Norvasc) 10 mg DAILY ORAL 02/01/20 09:00 03/02/20 08:59 02/10/20 08:21 Aspirin (ASA) 81 mg DAILY ORAL 01/29/20 09:00 03/14/20 08:59 02/10/20 08:18 Chlorhexidine Gluconate (Divina-Hex 2%) 1 applic DAILY@2000 TOPIC 01/29/20 20:00 04/28/20 19:59 02/06/20 20:58 Clonidine HCl (Catapres Tab) 0.1 mg Q4H PRN ORAL SBP > 150mmHg 02/06/20 07:00 05/06/20 06:59 02/10/20 19:03 Daptomycin 450 mg/ Sodium Chloride 55 ml @ 100 mls/hr Q24H IV 02/10/20 13:00 02/17/20 12:59 02/10/20 13:43 Dextrose (Dextrose 50%) 25 ml Q30M PRN IV Hypoglycemia 01/28/20 22:45 04/27/20 22:44 Dextrose (Dextrose 50%) 50 ml Q30M PRN IV Hypoglycemia 01/28/20 22:45 04/27/20 22:44 Epoetin Haseeb (Epoetin Haseeb-EPBX(NON ESRD)) 8,000 unit WED-WED-WED SUBQ 02/05/20 21:00 05/05/20 20:59 02/09/20 21:54 Furosemide (Lasix) 20 mg DAILY IV 02/07/20 12:30 03/08/20 12:29 02/10/20 08:19 Heparin Sodium (Porcine) (Heparin 5000 units/ml) 5,000 units EVERY 12 HOURS SUBQ 01/29/20 09:00 03/14/20 08:59 02/10/20 20:35 Hydromorphone HCl (Dilaudid) 0.5 mg Q4H PRN IVP Severe Pain (Pain Scale 7-10) 02/10/20 15:00 02/17/20 14:59 02/11/20 05:25 Insulin Aspart (NovoLOG) Q6HR SUBQ 01/29/20 00:00 04/28/20 00:00 02/11/20 05:23 Insulin Detemir (Levemir) 10 units BID SUBQ 02/08/20 18:00 05/04/20 17:59 02/10/20 17:21 Ipratropium [place] (Atrovent) 500 mcg Q4HRT HHN 02/08/20 07:00 02/13/20 06:59 02/11/20 06:28 Isosorbide Mononitrate (Imdur) 30 mg DAILY ORAL 02/02/20 09:00 03/03/20 08:59 02/10/20 08:20 Metoprolol Tartrate (Lopressor) 25 mg Q12HR ORAL 02/04/20 21:00 05/04/20 20:59 02/10/20 20:33 Nitroglycerin (Ntg) 0.4 mg Q5M PRN SL Prn Chest Pain 02/01/20 08:00 03/02/20 07:59 02/03/20 06:17 Ondansetron HCl (Zofran) 4 mg Q6H PRN IVP Nausea & Vomiting 01/28/20 22:45 02/27/20 22:44 02/01/20 18:10 Pantoprazole (Protonix) 40 mg EVERY 12 HOURS IVP 02/01/20 22:00 03/02/20 21:59 02/10/20 20:33 Assessment/Plan Assessment/Plan: (1) Cervical DDD (2) Cervical Spondylosis seen dictated Monster Corey Feb 11, 2020 09:27
--- NOTE | 2020-02-11 09:38 | Pulmonology Progress Note ---
Subjective ROS Limited/Unobtainable: No Constitutional: Reports: no symptoms Gastrointestinal/Abdominal: Reports: no symptoms Musculoskeletal: Reports: pain, swelling, other - neck pain Allergies: Coded Allergies: No Known Allergies (Unverified , 07/30/15) Objective Last 24 Hour Vital Signs Date Time Temp Pulse Resp B/P (MAP) Pulse Ox O2 Delivery O2 Flow Rate FiO2 02/11/20 06:28 105 15 99 Room Air 21 103 15 94 02/11/20 05:55 97.6 02/11/20 04:00 97.6 92 19 153/82 (105) 96 02/11/20 01:23 98.3 02/11/20 00:00 98.3 91 20 138/75 (96) 100 02/10/20 21:05 97.7 02/10/20 20:33 98 161/90 02/10/20 20:00 98.4 98 18 161/90 (113) 97 02/10/20 19:34 96 18 95 Room Air 21 94 18 92 02/10/20 19:03 160/93 02/10/20 16:42 93 18 99 Room Air 21 95 16 91 02/10/20 16:00 97.7 87 19 160/93 (115) 93 02/10/20 12:00 98.5 78 18 147/78 (101) 99 02/10/20 11:26 76 18 99 Room Air 21 78 16 92 Intake and Output 02/10/20 02/11/20 19:00 07:00 Intake Total 360 ml 250 ml Output Total 800 ml Balance 360 ml -550 ml Intake Oral 360 ml 250 ml Output Urine Total 800 ml Laboratory Tests 02/10/20 11:22: POC Whole Blood Glucose 228H 02/10/20 17:18: POC Whole Blood Glucose 211H Current Medications Medications (Trade) Dose Ordered Sig/Ivana Route PRN Reason Start Time Stop Time Status Last Admin Dose Admin Acetaminophen (Tylenol) 650 mg Q6H PRN ORAL MILD PAIN, FEVER 01/28/20 22:45 02/27/20 22:44 02/05/20 21:20 Acetaminophen/ Hydrocodone Bitart ([place] 10/325) 1 tab Q4H PRN ORAL Moderate Pain (Pain Scale 4-6) 02/11/20 12:00 02/18/20 11:59 UNV Amlodipine Besylate (Norvasc) 10 mg DAILY ORAL 02/01/20 09:00 03/02/20 08:59 02/10/20 08:21 Aspirin (ASA) 81 mg DAILY ORAL 01/29/20 09:00 03/14/20 08:59 02/10/20 08:18 Chlorhexidine Gluconate (Divina-Hex 2%) 1 applic DAILY@2000 TOPIC 01/29/20 20:00 04/28/20 19:59 02/06/20 20:58 Clonidine HCl (Catapres Tab) 0.1 mg Q4H PRN ORAL SBP > 150mmHg 02/06/20 07:00 05/06/20 06:59 02/10/20 19:03 Daptomycin 450 mg/ Sodium Chloride 55 ml @ 100 mls/hr Q24H IV 02/10/20 13:00 02/17/20 12:59 02/10/20 13:43 Dextrose (Dextrose 50%) 25 ml Q30M PRN IV Hypoglycemia 01/28/20 22:45 04/27/20 22:44 Dextrose (Dextrose 50%) 50 ml Q30M PRN IV Hypoglycemia 01/28/20 22:45 04/27/20 22:44 Epoetin Haseeb (Epoetin Haseeb-EPBX(NON ESRD)) 8,000 unit WED-WED-WED SUBQ 02/05/20 21:00 05/05/20 20:59 02/09/20 21:54 Furosemide (Lasix) 20 mg DAILY IV 02/07/20 12:30 03/08/20 12:29 02/10/20 08:19 Gabapentin (Neurontin) 300 mg THREE TIMES A DAY ORAL 02/11/20 09:30 03/12/20 09:29 UNV Heparin Sodium (Porcine) (Heparin 5000 units/ml) 5,000 units EVERY 12 HOURS SUBQ 01/29/20 09:00 03/14/20 08:59 02/10/20 20:35 Insulin Aspart (NovoLOG) Q6HR SUBQ 01/29/20 00:00 04/28/20 00:00 02/11/20 05:23 Insulin Detemir (Levemir) 10 units BID SUBQ 02/08/20 18:00 05/04/20 17:59 02/10/20 17:21 Ipratropium [place] (Atrovent) 500 mcg Q4HRT HHN 02/08/20 07:00 02/13/20 06:59 02/11/20 06:28 Isosorbide Mononitrate (Imdur) 30 mg DAILY ORAL 02/02/20 09:00 03/03/20 08:59 02/10/20 08:20 Lidocaine (Lidoderm 5% PATCH) 1 patch DAILY TDERMAL 02/11/20 09:30 05/11/20 09:29 UNV Methocarbamol (Robaxin) 500 mg Q8H PRN ORAL muscle spasm 02/11/20 09:30 03/12/20 09:29 UNV Metoprolol Tartrate (Lopressor) 25 mg Q12HR ORAL 02/04/20 21:00 05/04/20 20:59 02/10/20 20:33 Nitroglycerin (Ntg) 0.4 mg Q5M PRN SL Prn Chest Pain 02/01/20 08:00 03/02/20 07:59 02/03/20 06:17 Ondansetron HCl (Zofran) 4 mg Q6H PRN IVP Nausea & Vomiting 01/28/20 22:45 02/27/20 22:44 02/01/20 18:10 Pantoprazole (Protonix) 40 mg EVERY 12 HOURS IVP 02/01/20 22:00 03/02/20 21:59 02/10/20 20:33 Assessment/Plan Assessment/Plan Pulmonary Progress Note Assessment/Plan Assessment/Plan IMPRESSION pneumonia acute respiratory failure leukocytosis sepsis ARF toxic met encephalopathy COPD DM poor control cavitary lesion negative AFB x 3 groundglass infiltrates NSTEMI severe PCM hypertension left shoulder pain cervical DDD bacteremia MRSA PLAN stable pulmonary status lasix as is for now antibiotics per ID and clearance will need lung biopsy to assess further; can be done as outpatient PO with caution cardiology follow up nitro PRN titrate BP meds monitor wbc for improvement repeat imaging for change IV antibiotics and defer PORFIRIO impression, plan, and exam edited and reviewed in detail care discussed with RN Subjective Condition: stable Objective Vital Signs noted Labs:noted Laboratory Tests noted Objective: WDWN ill appearing reduced breath sounds bilaterally without rhonchi or wheeze [id number] without MRG NABS nontender no HSM no CC leg edema nonfocal Evans Zhang MD Feb 11, 2020 09:38
[2020-02-11] MEDS: Aspirin Baby 81mg ORAL SCH (09:58)
[2020-02-11] MEDS: Imdur 30mg tab ORAL SCH (09:59)
[2020-02-11] MEDS: Pantoprazole Inj IVP SCH ×2 (10:00→21:06)
[2020-02-11] MEDS: Heparin 5000 units/ml inj SUBQ SCH ×2 (10:02→21:08)
[2020-02-11] MEDS: Levemir Flexpen SUBQ SCH ×2 (10:07→17:04)
[2020-02-11] MEDS: Methocarbamol 500mg tab ORAL PRN ×2 (11:50→21:15)
[2020-02-11] MEDS: HYDROcodone/Acetamin 10/325 tab ORAL PRN ×2 (11:51→21:07)
[2020-02-11 12:00] VITALS: BP 165/91
--- NOTE | 2020-02-11 12:10 | Infectious Diseases Prog Note ---
Assessment/Plan Assessment/Plan antibiotics : daptomycin iv A 1. cavitary pneumonia sputum AFB negative x 3 2. MRSA sepsis r/o endocarditis 3. diabetes mellitus 4. hypertension 5. COPD 6. renal failure improving 7. aortic stenosis 8. + blood culture with bacillus likely contaminated P 1. continue daptomycin 2. will follow up cultures Subjective ROS Limited/Unobtainable: Yes Allergies: Coded Allergies: No Known Allergies (Unverified , 07/30/15) Objective Last 24 Hour Vital Signs Date Time Temp Pulse Resp B/P (MAP) Pulse Ox O2 Delivery O2 Flow Rate FiO2 02/11/20 12:00 97.9 113 18 165/91 (115) 97 02/11/20 10:19 97 16 99 Room Air 21 97 16 92 02/11/20 09:59 109 162/87 02/11/20 09:59 162/87 02/11/20 09:58 109 162/87 02/11/20 08:00 99.7 109 19 162/87 (112) 93 02/11/20 06:28 105 15 99 Room Air 21 103 15 94 02/11/20 05:55 97.6 02/11/20 04:00 97.6 92 19 153/82 (105) 96 02/11/20 01:23 98.3 02/11/20 00:00 98.3 91 20 138/75 (96) 100 02/10/20 21:05 97.7 02/10/20 20:33 98 161/90 02/10/20 20:00 98.4 98 18 161/90 (113) 97 02/10/20 19:34 96 18 95 Room Air 21 94 18 92 02/10/20 19:03 160/93 02/10/20 16:42 93 18 99 Room Air 21 95 16 91 02/10/20 16:00 97.7 87 19 160/93 (115) 93 Height (Feet): 5 Height (Inches): 1.00 Weight (Pounds): 168 Respiratory/Chest: lungs clear Cardiovascular: normal rate, regular rhythm, no gallop/murmur Abdomen: soft, non tender Extremities: other - + edema Laboratory Tests Test 02/10/20 17:18 POC Whole Blood Glucose 211 MG/DL (74-106) H Current Medications Medications (Trade) Dose Ordered Sig/Ivana Route PRN Reason Start Time Stop Time Status Last Admin Dose Admin Acetaminophen (Tylenol) 650 mg Q6H PRN ORAL MILD PAIN, FEVER 01/28/20 22:45 02/27/20 22:44 02/05/20 21:20 Acetaminophen/ Hydrocodone Bitart ([place] 10/325) 1 tab Q4H PRN ORAL Moderate Pain (Pain Scale 4-6) 02/11/20 09:45 02/18/20 09:44 02/11/20 11:51 Amlodipine Besylate (Norvasc) 10 mg DAILY ORAL 02/01/20 09:00 03/02/20 08:59 02/11/20 09:58 Aspirin (ASA) 81 mg DAILY ORAL 01/29/20 09:00 03/14/20 08:59 02/11/20 09:58 Chlorhexidine Gluconate (Divina-Hex 2%) 1 applic DAILY@2000 TOPIC 01/29/20 20:00 04/28/20 19:59 02/06/20 20:58 Clonidine HCl (Catapres Tab) 0.1 mg Q4H PRN ORAL SBP > 150mmHg 02/06/20 07:00 05/06/20 06:59 02/10/20 19:03 Daptomycin 450 mg/ Sodium Chloride 55 ml @ 100 mls/hr Q24H IV 02/10/20 13:00 02/17/20 12:59 02/10/20 13:43 Dextrose (Dextrose 50%) 25 ml Q30M PRN IV Hypoglycemia 01/28/20 22:45 04/27/20 22:44 Dextrose (Dextrose 50%) 50 ml Q30M PRN IV Hypoglycemia 01/28/20 22:45 04/27/20 22:44 Epoetin Haseeb (Epoetin Haseeb-EPBX(NON ESRD)) 8,000 unit WED-WED-WED SUBQ 02/05/20 21:00 05/05/20 20:59 02/09/20 21:54 Furosemide (Lasix) 20 mg DAILY IV 02/07/20 12:30 03/08/20 12:29 02/11/20 09:58 Gabapentin (Neurontin) 300 mg THREE TIMES A DAY ORAL 02/11/20 09:30 03/12/20 09:29 02/11/20 09:59 Heparin Sodium (Porcine) (Heparin 5000 units/ml) 5,000 units EVERY 12 HOURS SUBQ 01/29/20 09:00 03/14/20 08:59 02/11/20 10:02 Insulin Aspart (NovoLOG) Q6HR SUBQ 01/29/20 00:00 04/28/20 00:00 02/11/20 05:23 Insulin Detemir (Levemir) 10 units BID SUBQ 02/08/20 18:00 05/04/20 17:59 02/11/20 10:07 Ipratropium [place] (Atrovent) 500 mcg Q4HRT HHN 02/08/20 07:00 02/13/20 06:59 02/11/20 10:19 Isosorbide Mononitrate (Imdur) 30 mg DAILY ORAL 02/02/20 09:00 03/03/20 08:59 02/11/20 09:59 Lidocaine (Lidoderm 5% PATCH) 1 patch DAILY TDERMAL 02/11/20 09:30 05/11/20 09:29 02/11/20 10:09 Methocarbamol (Robaxin) 500 mg Q8H PRN ORAL muscle spasm 02/11/20 09:30 03/12/20 09:29 02/11/20 11:50 Metoprolol Tartrate (Lopressor) 25 mg Q12HR ORAL 02/04/20 21:00 05/04/20 20:59 02/11/20 09:59 Nitroglycerin (Ntg) 0.4 mg Q5M PRN SL Prn Chest Pain 02/01/20 08:00 03/02/20 07:59 02/03/20 06:17 Ondansetron HCl (Zofran) 4 mg Q6H PRN IVP Nausea & Vomiting 01/28/20 22:45 02/27/20 22:44 02/01/20 18:10 Pantoprazole (Protonix) 40 mg EVERY 12 HOURS IVP 02/01/20 22:00 03/02/20 21:59 02/11/20 10:00 Messi Lopez MD Feb 11, 2020 12:10
--- NOTE | 2020-02-11 13:45 | Consultation ---
DATE OF CONSULTATION: 02/11/2020 PAIN MANAGEMENT CONSULTATION CONSULTING PHYSICIAN: Mark Landa M.D. REFERRING PHYSICIAN: Germán Feliz M.D. and Dr. Zhang. PHYSICIAN W[employer] MECHANICAL ENGINEER: Adis Aguirre CHIEF COMPLAINT: Neck pain. HISTORY OF PRESENT ILLNESS: This is a 59-year-old female who is being seen on the Med/Surg floor of [facility] for initial pain management consultation. The patient has been admitted under the care of Dr. Feliz due to altered mental status, fever, diabetes mellitus, COPD, and reports that she has been having neck pain for the past 15 days. It is a constant acute pain, radiating as 10/10, describing the pain as a sharp pain, increasing with movement, minimally reduced with medication. At this time, the patient is a [place] 10/325 one tablet every four hours as needed for moderate pain, Dilaudid 0.5 mg IV every hours as needed for severe pain. Reports that the Dilaudid causing her headaches, no longer would like it to be continued. States [place] helps but would like other medications to be applied. Due to this, we were consulted so that the patient would have adequate pain control while here in the hospital. PAST MEDICAL HISTORY: Diabetes mellitus, COPD, gastritis. PAST SURGICAL HISTORY: Dialysis. SOCIAL HISTORY: Denies smoking tobacco, drinking alcohol, and IV drug abuse. ALLERGIES: No known drug allergies. MEDICATIONS: Norvasc, Cardura, Neurontin, hydrochlorothiazide, Valium, [place], Motrin, meclizine, Ultram. REVIEW OF SYSTEMS: Denies rash, fever, chills, sweating, dizziness, drowsiness, sore throat, or change in her weight. No nausea, vomiting, diarrhea, blood in the stool or urine. No dysuria. PHYSICAL EXAMINATION: GENERAL: Alert, awake, and oriented. VITAL SIGNS: Blood pressure 153/82, heart rate is 92, oxygen saturation 96%, respirations 19, temperature is 97.6 degrees Fahrenheit. HEENT: PERRLA. NECK: Range of motion is decreased due to the patient's condition. No tenderness to paracervical muscles. No adenopathy. LUNGS: Decreased breath sounds bilaterally. HEART: S1 and S2 regular. ABDOMEN: Obese. BACK: Range of motion is decreased in flexion and extension. EXTREMITIES: Upper and lower extremity range of motion is decreased due to the patient's condition. No cyanosis. No clubbing. Sensory is reduced. Reflexes are not obtainable. No adenopathy. ASSESSMENT: The patient is a 59-year-old female with cervical degenerative disease, cervical spondylosis. The patient will be discontinued off the Dilaudid. We will continue the [place]. Start the patient on Neurontin 300 mg tablet three times a day, Robaxin 500 mg tablet every 8 hours as needed for muscle spasms. Lidocaine patch to be applied to the neck at the site of the pain 12 hours on and 12 hours off. We ordered x-ray of the cervical spine to rule out further pathology in the cervical spine. The patient was discussed with Dr. Landa and Dr. Landa concurred. We will follow the patient. Thank you very much for the courtesy of this consultation. Mark Landa M.D. ZURDO Aguirre DR: Linda JOB#: [id number] CC: MIKE
[2020-02-11] MEDS: DAPTOmycin 450 MG in NS 55 ML IV SCH (14:02)
--- NOTE | 2020-02-11 14:34 | Cardiology Progress Note ---
Subjective DATE OF SERVICE: Feb 11, 2020 Maintaining negative fluid balance with current diuretic dosing. Less congestion and SOB. O2 requirements decreasing. No recurrent CP, but troponin peaked at 4.65, and is normalizing 2D Echo reviewed - EF 45%, severe pulmonary hypertension, mild-moderate AV stenosis with ESTHER 1.5cm2 CXR (02/02) with cavitary lesion and mild congestive changes. Objective Last 24 Hour Vital Signs Date Time Temp Pulse Resp B/P (MAP) Pulse Ox O2 Delivery O2 Flow Rate FiO2 02/11/20 12:21 97.9 02/11/20 12:00 97.9 113 18 165/91 (115) 97 02/11/20 10:19 97 16 99 Room Air 21 97 16 92 02/11/20 09:59 109 162/87 02/11/20 09:59 162/87 02/11/20 09:58 109 162/87 02/11/20 08:00 99.7 109 19 162/87 (112) 93 02/11/20 06:28 105 15 99 Room Air 21 103 15 94 02/11/20 05:55 97.6 02/11/20 04:00 97.6 92 19 153/82 (105) 96 02/11/20 01:23 98.3 02/11/20 00:00 98.3 91 20 138/75 (96) 100 02/10/20 21:05 97.7 02/10/20 20:33 98 161/90 02/10/20 20:00 98.4 98 18 161/90 (113) 97 02/10/20 19:34 96 18 95 Room Air 21 94 18 92 02/10/20 19:03 160/93 02/10/20 16:42 93 18 99 Room Air 21 95 16 91 02/10/20 16:00 97.7 87 19 160/93 (115) 93 HEENT: normal ENT inspection RHYTHM: NSR LUNGS: bilat. rhonchi and rales CARDIAC: systolic murmur - 1/6 at base ABDOMEN: normal bowel sounds, non tender, soft EXTREMITIES: normal range of motion, non-pitting Laboratory Tests Test 02/10/20 17:18 02/11/20 12:05 POC Whole Blood Glucose 211 MG/DL (74-106) H Pending Assessment/Plan Assessment/Plan Bacteremia due to lung mass and recurrent pulmonary infections. + risk for endocarditis, but increased risk for PORFIRIO. Acute DC Ac/chronic diastolic CHF Lung mass - prior benign biopsy Pneumonia with cavitation Mild-mod degenerative aortic stenosis Acute renal failure Pulmonary hypertension (est PAsyst 58mmHg) Hypertension with labile BP range. Anemia Dehydration/hypernatremia corrected IRDM with elevated glucose. Sinus bradycardia on beta rusty rx. Orders updated Meds reviewed; trend BNP, and continue cautious diuresis. Favor prolonged antibiotics course; PORFIRIO with increased risk, and will not obviate need for extended therapy. Follow up lab studies ordered. Evans Trinidad MD Feb 11, 2020 14:34
[2020-02-11 16:00] VITALS: BP 137/70
--- NOTE | 2020-02-11 16:26 | NUR ---
CASE MANAGEMENT:REVIEW SI;SEPSIS. ACUTE RESPIRATORY FAILURE. NSTEMI. AFB'S NEGATIVE X3. 99.7 113 18 165/91 92% ON RA WBC 11.1 IS;NORCO PO Q4 PRN DAPTOMYCIN IV Q24 LASIX IV QD LOPRESSOR PO Q12 PROTONIX IV Q12 NORVASC PO QD ASA PO QD MED SURG STATUS DCP;FROM HOME
--- NOTE | 2020-02-11 19:07 | NUR ---
NURSE HAND-OFF: Important Events on Shift:[] Patient Status: [stable] Diet: [CCHO medium] Pending Orders: [aml] Pending Results/Labs:[] Pending MD notification:[] Latest Vital Signs: Temperature 98.6 , Pulse 93 , B/P 137 /70 , Respiratory Rate 19 , O2 SAT 94 , Room Air, O2 Flow Rate 2.0 . Vital Sign Comment: [] Latest Pineda Fall Score: 35 Fall Risk: Medium Risk Safety Measures: Call light Within Reach, Bed Alarm Zone 1, Side Rails Side Rails x3, Bed position Low and Locked. Fall Precautions: Yellow Socks Yellow Gown Door Sign Patient Fall Education Report given to [RN Fernie].
--- NOTE | 2020-02-11 19:45 | NUR ---
NURSE NOTES: Pt AAO x 4, on room air. IV site intact and patent. Flores in place draining urine well. Pt c/o pain on L shoulder. No acute distress noted. Bed locked,lowest position, alarm on, side rails up, call light within reach. Will continue to monitor.
[2020-02-11 20:00] VITALS: BP 168/96
[2020-02-11] MEDS: Dyna-Hex 2% Top Sol 2oz TOPIC SCH (20:00)
[2020-02-12] VITALS: BP 143/84
[2020-02-12] MEDS: NovoLOG Insulin Flexpen SUBQ SCH ×5 (00:30→23:34)
[2020-02-12] MEDS: HYDROcodone/Acetamin 10/325 tab ORAL PRN ×4 (01:38→21:26)
[2020-02-12] MEDS: Ipratropium 0.02% Inh Soln 2.5ml UD HHN SCH ×6 (03:35→23:51)
[2020-02-12 04:00] VITALS: BP 158/91
[2020-02-12] MEDS: Methocarbamol 500mg tab ORAL PRN ×2 (05:44→14:48)
--- NOTE | 2020-02-12 06:53 | NUR ---
NURSE HAND-OFF: Important Events on Shift:pain Patient Status: stable Diet: ccho m Pending Orders: Xray spine Pending Results/Labs:AM labs Pending MD notification: Latest Vital Signs: Temperature 99.5 , Pulse 105 , B/P 158 /91 , Respiratory Rate 18 , O2 SAT 95 , Room Air, O2 Flow Rate 2.0 . Vital Sign Comment: [] Latest Pineda Fall Score: 35 Fall Risk: Medium Risk Safety Measures: Call light Within Reach, Bed Alarm Zone 1, Side Rails Side Rails x3, Bed position Low and Locked. Fall Precautions: Yellow Socks Yellow Gown Door Sign Patient Fall Education Addendum: 02/12/20 at 0745 by SHAUN LOCKE RN RN HAND-OFF: Report given to [place].
--- NOTE | 2020-02-12 07:55 | General Progress Note ---
Subjective Date patient seen: Feb 12, 2020 Time patient seen: 07:00 - am Allergies: Coded Allergies: No Known Allergies (Unverified , 07/30/15) Subjective HISTORY OF PRESENT ILLNESS: This is a 59-year-old female who is being seen on the Med/Surg floor of [facility]. Patient is in bed and reports pain has been reduced on the current medication regimen. No new complaints at this time. REVIEW OF SYSTEMS: Denies rash, fever, chills, sweating, dizziness, drowsiness, sore throat, or change in her weight. No nausea, vomiting, diarrhea, blood in the stool or urine. No dysuria. Objective Last 24 Hour Vital Signs Date Time Temp Pulse Resp B/P (MAP) Pulse Ox O2 Delivery O2 Flow Rate FiO2 02/12/20 07:37 106 20 99 Room Air 21 02/12/20 07:27 101 20 90 Room Air 21 02/12/20 04:00 99.5 105 18 158/91 (113) 95 02/12/20 03:45 100 20 98 Room Air 21 02/12/20 03:35 102 20 94 Room Air 21 02/12/20 00:00 99.6 98 20 143/84 (103) 96 02/11/20 23:30 99 20 98 Room Air 21 02/11/20 23:20 93 20 95 Room Air 21 02/11/20 21:08 101 168/96 02/11/20 21:00 Room Air 02/11/20 20:00 98.8 101 20 168/96 (120) 98 02/11/20 19:32 97 18 99 Room Air 21 02/11/20 19:22 90 18 94 Room Air 21 02/11/20 16:00 98.6 93 19 137/70 (92) 94 02/11/20 15:51 96 16 100 Room Air 21 98 16 94 02/11/20 12:21 97.9 02/11/20 12:00 97.9 113 18 165/91 (115) 97 02/11/20 10:19 97 16 99 Room Air 21 97 16 92 02/11/20 09:59 109 162/87 02/11/20 09:59 162/87 02/11/20 09:58 109 162/87 02/11/20 08:00 99.7 109 19 162/87 (112) 93 Intake and Output 02/11/20 02/12/20 19:00 07:00 Intake Total 175 ml Output Total 700 ml Balance 175 ml -700 ml Intake Oral 120 ml IV Total 55 ml Output Urine Total 700 ml # Voids 1 Laboratory Tests 02/11/20 12:05: POC Whole Blood Glucose [Pending] 02/11/20 16:44: POC Whole Blood Glucose [Pending] 02/12/20 00:05: POC Whole Blood Glucose 227H Height (Feet): 5 Height (Inches): 1.00 Weight (Pounds): 168 Objective PHYSICAL EXAMINATION: GENERAL: Alert, awake, and oriented. LUNGS: Decreased breath sounds bilaterally. HEART: S1 and S2 regular. ABDOMEN: Obese. EXTREMITIES: No cyanosis. No clubbing. NEURO: No changes. Assessment/Plan Assessment/Plan: (1) Cervical DDD (2) Cervical Spondylosis Patient to be continued on [place], Neurontin, Robaxin and Lidocaine patch. D/w Dr. Landa and he concurred. Monster Corey Feb 12, 2020 07:55
[2020-02-12 08:00] VITALS: BP 154/85
--- NOTE | 2020-02-12 08:31 | Critical Care Progress Note ---
Assessment/Plan Assessment/Plan IMPRESSION acute respiratory failure leukocytosis sepsis ARF toxic met encephalopathy COPD DM poor control cavitary lesion negative AFB groundglass infiltrates NSTEMI severe PCM hypertension left shoulder pain bacteremia MRSA PLAN stable off tele lasix as is for now antibiotics per ID and clearance proceed with bronchoscopy and biopsy of RUL PO with caution cardiology follow up nitro PRN titrate BP meds monitor wbc for improvement repeat imaging for change IV antibiotics and defer PORFIRIO impression, plan, and exam edited and reviewed in detail care discussed with police specialist - Subjective Condition: stable I&O: Intake and Output 02/11/20 02/12/20 18:59 06:59 Intake Total 175 ml Output Total 700 ml Balance 175 ml -700 ml Intake Oral 120 ml IV Total 55 ml Output Urine Total 700 ml # Voids 1 Critical Care - Objective Last 24 Hour Vital Signs Date Time Temp Pulse Resp B/P (MAP) Pulse Ox O2 Delivery O2 Flow Rate FiO2 02/12/20 07:37 106 20 99 Room Air 21 02/12/20 07:27 101 20 90 Room Air 21 02/12/20 04:00 99.5 105 18 158/91 (113) 95 02/12/20 03:45 100 20 98 Room Air 21 02/12/20 03:35 102 20 94 Room Air 21 02/12/20 00:00 99.6 98 20 143/84 (103) 96 02/11/20 23:30 99 20 98 Room Air 21 02/11/20 23:20 93 20 95 Room Air 21 02/11/20 21:08 101 168/96 02/11/20 21:00 Room Air 02/11/20 20:00 98.8 101 20 168/96 (120) 98 02/11/20 19:32 97 18 99 Room Air 21 02/11/20 19:22 90 18 94 Room Air 21 02/11/20 16:00 98.6 93 19 137/70 (92) 94 02/11/20 15:51 96 16 100 Room Air 21 98 16 94 02/11/20 12:21 97.9 02/11/20 12:00 97.9 113 18 165/91 (115) 97 02/11/20 10:19 97 16 99 Room Air 21 97 16 92 02/11/20 09:59 109 162/87 02/11/20 09:59 162/87 02/11/20 09:58 109 162/87 Labs: Labs Test 02/09/20 13:40 02/09/20 18:31 02/10/20 07:25 02/10/20 08:18 POC Whole Blood Glucose 297 MG/DL (74-106) 212 MG/DL (74-106) 244 MG/DL (74-106) White Blood Count 11.1 K/UL (4.8-10.8) Red Blood Count 3.08 M/UL (4.20-5.40) Hemoglobin 9.2 G/DL (12.0-16.0) Hematocrit 29.7 % (37.0-47.0) Mean Corpuscular Volume 96 FL (80-99) Mean Corpuscular Hemoglobin 29.8 PG (27.0-31.0) Mean Corpuscular Hemoglobin Concent 31.0 G/DL (32.0-36.0) Red Cell Distribution Width 15.2 % (11.6-14.8) Platelet Count 226 K/UL (150-450) Mean Platelet Volume 7.1 FL (6.5-10.1) Neutrophils (%) (Auto) 77.3 % (45.0-75.0) Lymphocytes (%) (Auto) 13.0 % (20.0-45.0) Monocytes (%) (Auto) 7.2 % (1.0-10.0) Eosinophils (%) (Auto) 2.0 % (0.0-3.0) Basophils (%) (Auto) 0.7 % (0.0-2.0) Sodium Level 137 MMOL/L (136-145) Potassium Level 4.0 MMOL/L (3.5-5.1) Chloride Level 104 MMOL/L (98-107) Carbon Dioxide Level 28 MMOL/L (21-32) Anion Gap 5 mmol/L (5-15) Blood Urea Nitrogen 8 mg/dL (7-18) Creatinine 0.9 MG/DL (0.55-1.30) Estimat Glomerular Filtration Rate > 60 mL/min (>60) Glucose Level 281 MG/DL (74-106) Calcium Level 8.0 MG/DL (8.5-10.1) Test 02/10/20 11:22 02/10/20 17:18 02/11/20 12:05 02/11/20 16:44 POC Whole Blood Glucose 228 MG/DL (74-106) 211 MG/DL (74-106) Test 02/12/20 00:05 POC Whole Blood Glucose 227 MG/DL (74-106) Objective: WDWN ill appearing reduced breath sounds bilaterally without rhonchi or wheeze [id number] without MRG NABS nontender no HSM no CC worsening leg edema nonfocal Accucheck: 224 Germán Feliz MD Feb 12, 2020 08:31
[2020-02-12] MEDS: Imdur 30mg tab ORAL SCH (08:55)
[2020-02-12] MEDS: Aspirin Baby 81mg ORAL SCH (08:55)
[2020-02-12] MEDS: Heparin 5000 units/ml inj SUBQ SCH ×2 (08:57→20:33)
[2020-02-12] MEDS: Levemir Flexpen SUBQ SCH ×2 (09:07→18:01)
[2020-02-12 09:21] LABS: EOSINOPHILS % (AUTO) 1.1 % (0.0-3.0); HEMATOCRIT 32.4 % (37.0-47.0); HEMOGLOBIN 9.8 G/DL (12.0-16.0); LYMPHOCYTES % (AUTO) 17.1 % (20.0-45.0); MEAN CORPUSCULAR VOLUME 97 FL (80-99); MONOCYTES % (AUTO) 10.1 % (1.0-10.0); NEUTROPHILS % (AUTO) 70.8 % (45.0-75.0); PLATELET COUNT 334 K/UL (150-450); RED BLOOD COUNT 3.34 M/UL (4.20-5.40); RED CELL DISTRIBUTION WIDTH 16.5 % (11.6-14.8); WHITE BLOOD COUNT 8.7 K/UL (4.8-10.8)
--- NOTE | 2020-02-12 09:43 | General Progress Note ---
Subjective Allergies: Coded Allergies: No Known Allergies (Unverified , 07/30/15) Subjective Above noted no BM x 3 days Objective Last 24 Hour Vital Signs Date Time Temp Pulse Resp B/P (MAP) Pulse Ox O2 Delivery O2 Flow Rate FiO2 02/12/20 08:55 109 154/85 02/12/20 08:55 154/85 02/12/20 08:55 109 154/85 02/12/20 08:00 98.2 109 19 154/85 (108) 94 02/12/20 07:37 106 20 99 Room Air 21 02/12/20 07:27 101 20 90 Room Air 21 02/12/20 04:00 99.5 105 18 158/91 (113) 95 02/12/20 03:45 100 20 98 Room Air 21 02/12/20 03:35 102 20 94 Room Air 21 02/12/20 00:00 99.6 98 20 143/84 (103) 96 02/11/20 23:30 99 20 98 Room Air 21 02/11/20 23:20 93 20 95 Room Air 21 02/11/20 21:08 101 168/96 02/11/20 21:00 Room Air 02/11/20 20:00 98.8 101 20 168/96 (120) 98 02/11/20 19:32 97 18 99 Room Air 21 02/11/20 19:22 90 18 94 Room Air 21 02/11/20 16:00 98.6 93 19 137/70 (92) 94 02/11/20 15:51 96 16 100 Room Air 21 98 16 94 02/11/20 12:21 97.9 02/11/20 12:00 97.9 113 18 165/91 (115) 97 02/11/20 10:19 97 16 99 Room Air 21 97 16 92 02/11/20 09:59 109 162/87 02/11/20 09:59 162/87 02/11/20 09:58 109 162/87 Intake and Output 02/11/20 02/12/20 18:59 06:59 Intake Total 175 ml Output Total 700 ml Balance 175 ml -700 ml Intake Oral 120 ml IV Total 55 ml Output Urine Total 700 ml # Voids 1 Laboratory Tests 02/11/20 12:05: POC Whole Blood Glucose [Pending] 02/11/20 16:44: POC Whole Blood Glucose [Pending] 02/12/20 00:05: POC Whole Blood Glucose 227H 02/12/20 08:32: White Blood Count 8.7, Red Blood Count 3.34L, Hemoglobin 9.8L, Hematocrit 32.4L, Mean Corpuscular Volume 97, Mean Corpuscular Hemoglobin 29.4, Mean Corpuscular Hemoglobin Concent 30.3L, Red Cell Distribution Width 16.5H, Platelet Count 334, Mean Platelet Volume 6.7, Neutrophils (%) (Auto) 70.8, Lymphocytes (%) (Auto) 17.1L, Monocytes (%) (Auto) 10.1H, Eosinophils (%) (Auto) 1.1, Basophils (%) (Auto) 1.0, Sodium Level [Pending], Potassium Level [Pending], Chloride Level [Pending], Carbon Dioxide Level [Pending], Blood Urea Nitrogen [Pending], Creatinine [Pending], Estimat Glomerular Filtration Rate [Pending], Glucose Level [Pending], Calcium Level [Pending], Magnesium Level [Pending], Total Bilirubin [Pending], Aspartate Amino Transf (AST/SGOT) [Pending], Alanine Aminotransferase (ALT/SGPT) [Pending], Alkaline Phosphatase [Pending], Pro-B-Type Natriuretic Peptide [Pending], Total Protein [Pending], Albumin [Pending], Globulin [Pending] Height (Feet): 5 Height (Inches): 1.00 Weight (Pounds): 168 Objective WDWN NCAT supple CTA RR Abd soft ND mild edema Assessment/Plan Assessment/Plan: Assessment - hepatitis C with nodular liver, PCR (+) - constipation - Swallowing Sx - resolved - HTN - COPD - Lung mass - DM - PSVT Recommendations - po as tolerated - follow LFT - PPI - Elevate HOB - outpatient HCV Rx - laxative Feliberto Pérez MD Feb 12, 2020 09:43
[2020-02-12 09:59] LABS: ALANINE AMINOTRANSFERASE 41 U/L (12-78); ALBUMIN 1.9 G/DL (3.4-5.0); ALBUMIN/GLOBULIN RATIO 0.4 (1.0-2.7); ALKALINE PHOSPHATASE 690 U/L (46-116); ANION GAP 4 mmol/L (5-15); ASPARTATE AMINO TRANSFERASE 64 U/L (15-37); BILIRUBIN,TOTAL 0.6 MG/DL (0.2-1.0); BLOOD UREA NITROGEN 12 mg/dL (7-18); CALCIUM 7.5 MG/DL (8.5-10.1); CARBON DIOXIDE 30 MMOL/L (21-32); CHLORIDE 99 MMOL/L (98-107); CREATININE 0.9 MG/DL (0.55-1.30); POTASSIUM 4.1 MMOL/L (3.5-5.1); SODIUM 133 MMOL/L (136-145)
[2020-02-12] MEDS ORDERED: Lactulose 20gm/30ml UDC ORAL SCH (10:30)
[2020-02-12] MEDS: Pantoprazole Inj IVP SCH ×2 (10:32→20:30)
--- NOTE | 2020-02-12 11:25 | Diagnostic Imaging Report ---
INDICATION: Neck pain TECHNIQUE: Frontal and lateral views of the cervical spine including odontoid view COMPARISON: Cervical spine radiographs dated 10/12/2017 and chest radiograph dated 02/09/2020 FINDINGS: Study is limited due to motion artifact. Cervical lordosis is straightened, which may be due to patient positioning or muscle spasm. C1-C7 is evaluated without overlapping shadows. No spondylolisthesis. Vertebral body heights are maintained. There are multilevel discogenic degenerative changes characterized by disc space narrowing, endplate osteophyte formation, and multilevel uncovertebral hypertrophy. The dens is intact. Atlantodental intervals with respect to lateral masses are maintained. No prevertebral soft tissue swelling. Again demonstrated is right upper lobe cavitation, new since examination dated 10/12/2017 but better evaluated on chest radiograph dated 02/09/2020. IMPRESSION: Limited study due to motion artifact and incomplete evaluation of C7 due to overlapping shadows. Within these limitations: No acute fracture or malalignment.
--- NOTE | 2020-02-12 11:55 | Infectious Diseases Prog Note ---
Assessment/Plan Assessment/Plan antibiotics : daptomycin iv A 1. cavitary pneumonia sputum AFB negative x 3 2. MRSA sepsis r/o endocarditis 3. diabetes mellitus 4. hypertension 5. COPD 6. renal failure improving 7. aortic stenosis 8. + blood culture with bacillus likely contaminated P 1. continue daptomycin iv 31 more days 2. will follow up cultures Subjective Constitutional: Denies: fever, chills Respiratory: Reports: dry cough; Denies: shortness of breath Gastrointestinal/Abdominal: Denies: nausea, vomiting, diarrhea Musculoskeletal: Reports: pain - decreased Allergies: Coded Allergies: No Known Allergies (Unverified , 07/30/15) Objective Last 24 Hour Vital Signs Date Time Temp Pulse Resp B/P (MAP) Pulse Ox O2 Delivery O2 Flow Rate FiO2 02/12/20 11:51 102 20 98 Room Air 21 02/12/20 11:41 98 20 94 Room Air 21 02/12/20 08:55 109 154/85 02/12/20 08:55 154/85 02/12/20 08:55 109 154/85 02/12/20 08:00 98.2 109 19 154/85 (108) 94 02/12/20 07:37 106 20 99 Room Air 21 02/12/20 07:27 101 20 90 Room Air 21 02/12/20 04:00 99.5 105 18 158/91 (113) 95 02/12/20 03:45 100 20 98 Room Air 21 02/12/20 03:35 102 20 94 Room Air 21 02/12/20 00:00 99.6 98 20 143/84 (103) 96 02/11/20 23:30 99 20 98 Room Air 21 02/11/20 23:20 93 20 95 Room Air 21 02/11/20 21:08 101 168/96 02/11/20 21:00 Room Air 02/11/20 20:00 98.8 101 20 168/96 (120) 98 02/11/20 19:32 97 18 99 Room Air 21 02/11/20 19:22 90 18 94 Room Air 21 02/11/20 16:00 98.6 93 19 137/70 (92) 94 02/11/20 15:51 96 16 100 Room Air 21 98 16 94 02/11/20 12:21 97.9 02/11/20 12:00 97.9 113 18 165/91 (115) 97 Height (Feet): 5 Height (Inches): 1.00 Weight (Pounds): 168 Respiratory/Chest: lungs clear Cardiovascular: normal rate, regular rhythm, no gallop/murmur Abdomen: soft, non tender Extremities: other - + edema Laboratory Tests Test 02/11/20 12:05 02/11/20 16:44 02/12/20 00:05 02/12/20 08:32 POC Whole Blood Glucose Pending Pending 227 MG/DL (74-106) H White Blood Count 8.7 K/UL (4.8-10.8) Red Blood Count 3.34 M/UL (4.20-5.40) L Hemoglobin 9.8 G/DL (12.0-16.0) L Hematocrit 32.4 % (37.0-47.0) L Mean Corpuscular Volume 97 FL (80-99) Mean Corpuscular Hemoglobin 29.4 PG (27.0-31.0) Mean Corpuscular Hemoglobin Concent 30.3 G/DL (32.0-36.0) L Red Cell Distribution Width 16.5 % (11.6-14.8) H Platelet Count 334 K/UL (150-450) Mean Platelet Volume 6.7 FL (6.5-10.1) Neutrophils (%) (Auto) 70.8 % (45.0-75.0) Lymphocytes (%) (Auto) 17.1 % (20.0-45.0) L Monocytes (%) (Auto) 10.1 % (1.0-10.0) H Eosinophils (%) (Auto) 1.1 % (0.0-3.0) Basophils (%) (Auto) 1.0 % (0.0-2.0) Sodium Level 133 MMOL/L (136-145) L Potassium Level 4.1 MMOL/L (3.5-5.1) Chloride Level 99 MMOL/L (98-107) Carbon Dioxide Level 30 MMOL/L (21-32) Anion Gap 4 mmol/L (5-15) L Blood Urea Nitrogen 12 mg/dL (7-18) Creatinine 0.9 MG/DL (0.55-1.30) Estimat Glomerular Filtration Rate > 60 mL/min (>60) Glucose Level 221 MG/DL (74-106) H Calcium Level 7.5 MG/DL (8.5-10.1) L Magnesium Level 1.2 MG/DL (1.8-2.4) L Total Bilirubin 0.6 MG/DL (0.2-1.0) Aspartate Amino Transf (AST/SGOT) 64 U/L (15-37) H Alanine Aminotransferase (ALT/SGPT) 41 U/L (12-78) Alkaline Phosphatase 690 U/L (46-116) H Pro-B-Type Natriuretic Peptide 6170 pg/mL (0-125) H Total Protein 6.9 G/DL (6.4-8.2) Albumin 1.9 G/DL (3.4-5.0) L Globulin 5.0 g/dL Albumin/Globulin Ratio 0.4 (1.0-2.7) L Test 02/12/20 11:34 POC Whole Blood Glucose Pending Current Medications Medications (Trade) Dose Ordered Sig/Ivana Route PRN Reason Start Time Stop Time Status Last Admin Dose Admin Acetaminophen (Tylenol) 650 mg Q6H PRN ORAL MILD PAIN, FEVER 01/28/20 22:45 02/27/20 22:44 02/05/20 21:20 Acetaminophen/ Hydrocodone Bitart ([place] 10/325) 1 tab Q4H PRN ORAL Moderate Pain (Pain Scale 4-6) 02/11/20 09:45 02/18/20 09:44 02/12/20 05:45 Amlodipine Besylate (Norvasc) 10 mg DAILY ORAL 02/01/20 09:00 03/02/20 08:59 02/12/20 08:55 Aspirin (ASA) 81 mg DAILY ORAL 01/29/20 09:00 03/14/20 08:59 02/12/20 08:55 Chlorhexidine Gluconate (Divina-Hex 2%) 1 applic DAILY@2000 TOPIC 01/29/20 20:00 04/28/20 19:59 02/06/20 20:58 Clonidine HCl (Catapres Tab) 0.1 mg Q4H PRN ORAL SBP > 150mmHg 02/06/20 07:00 05/06/20 06:59 02/10/20 19:03 Daptomycin 450 mg/ Sodium Chloride 55 ml @ 100 mls/hr Q24H IV 02/10/20 13:00 02/17/20 12:59 02/11/20 14:02 Dextrose (Dextrose 50%) 25 ml Q30M PRN IV Hypoglycemia 01/28/20 22:45 04/27/20 22:44 Dextrose (Dextrose 50%) 50 ml Q30M PRN IV Hypoglycemia 01/28/20 22:45 04/27/20 22:44 Epoetin Haseeb (Epoetin Haseeb-EPBX(NON ESRD)) 8,000 unit WED-WED-WED SUBQ 02/05/20 21:00 05/05/20 20:59 02/09/20 21:54 Furosemide (Lasix) 20 mg DAILY IV 02/07/20 12:30 03/08/20 12:29 02/12/20 10:33 Gabapentin (Neurontin) 300 mg THREE TIMES A DAY ORAL 02/11/20 09:30 03/12/20 09:29 02/12/20 08:55 Heparin Sodium (Porcine) (Heparin 5000 units/ml) 5,000 units EVERY 12 HOURS SUBQ 01/29/20 09:00 03/14/20 08:59 02/12/20 08:57 Insulin Aspart (NovoLOG) Q6HR SUBQ 01/29/20 00:00 04/28/20 00:00 02/12/20 05:49 Insulin Detemir (Levemir) 10 units BID SUBQ 02/08/20 18:00 05/04/20 17:59 02/12/20 09:07 Ipratropium [place] (Atrovent) 500 mcg Q4HRT HHN 02/08/20 07:00 02/13/20 06:59 02/12/20 11:39 Isosorbide Mononitrate (Imdur) 30 mg DAILY ORAL 02/02/20 09:00 03/03/20 08:59 02/12/20 08:55 Lactulose (Cephulac) 30 gm ONCE ORAL 02/12/20 10:30 02/12/20 12:00 02/12/20 10:33 Lidocaine (Lidoderm 5% PATCH) 1 patch DAILY TDERMAL 02/11/20 09:30 05/11/20 09:29 02/12/20 08:56 Methocarbamol (Robaxin) 500 mg Q8H PRN ORAL muscle spasm 02/11/20 09:30 03/12/20 09:29 02/12/20 05:44 Metoprolol Tartrate (Lopressor) 25 mg Q12HR ORAL 02/04/20 21:00 05/04/20 20:59 02/12/20 08:55 Nitroglycerin (Ntg) 0.4 mg Q5M PRN SL Prn Chest Pain 02/01/20 08:00 03/02/20 07:59 02/03/20 06:17 Ondansetron HCl (Zofran) 4 mg Q6H PRN IVP Nausea & Vomiting 01/28/20 22:45 02/27/20 22:44 02/01/20 18:10 Pantoprazole (Protonix) 40 mg EVERY 12 HOURS IVP 02/01/20 22:00 03/02/20 21:59 02/12/20 10:32 Messi Lopez MD Feb 12, 2020 11:55
[2020-02-12 12:00] VITALS: BP 163/92
--- NOTE | 2020-02-12 13:32 | NUR ---
RD ASSESSMENT & RECOMMENDATIONS SEE CARE ACTIVITY FOR COMPLETE ASSESSMENT DAILY ESTIMATED NEEDS: Needs based on Sepsis, pulmonary/ 54.9kg abw 25-35 kcals/kg 6084-0541 total kcals 1-2 g protein/kg 55-110 g total protein 25-30 mL/kg 6613-4517 total fluid mLs NUTRITION DIAGNOSIS: * Altered nutrition related lab values R/T clinical status as evidenced by variable poc BGs (52-325 upon adm, now POC glu 163-230), elev WBC, now wnl, elev K (5.4 -> wnl), elev LFTs. CURRENT DIET: [facility] PO DIET RECOMMENDATIONS: [facility] MED + LOW NA ADDITIONAL RECOMMENDATIONS: * Monitor PO intake: variable, but improved since adm * Monitor closely for hypoglycemia w/ variable intake * Glucerna TID w/ meals w/ variable intake * Calibrated bed scale wts : fluctuating daily wts * 1 carb snacks in b/w meals as tolerated . .
[2020-02-12] MEDS: DAPTOmycin 450 MG in NS 55 ML IV SCH (14:15)
[2020-02-12 16:00] VITALS: BP 162/98
--- NOTE | 2020-02-12 17:09 | NUR ---
CASE MANAGEMENT:REVIEW SI;SEPSIS. ACUTE RESPIRATORY FAILURE. NSTEMI. AFB'S NEGATIVE X3. 99.6 109 20 154/91 90% ON RA H/H 9.8/32.4 NA 133 BG 221 CA 7.5 MAG 1.2 AST 60 ALP 690 BNP 6170 ALB 1.9 IS;MAG SULFATE IV NORCO PO Q4 PRN LACTULOSE PO ONCE DAPTOMYCIN IV Q24 LASIX IV QD LOPRESSOR PO Q12 PROTONIX IV Q12 ASA PO QD HEPARIN SUBQ Q12 MED SURG STATUS DCP;FROM HOME
[2020-02-12] MEDS: guaiFENesin /DM 10ml syrup ORAL PRN (17:48)
--- NOTE | 2020-02-12 18:17 | Diagnostic Imaging Report ---
EXAM: XR Chest, 1 View CLINICAL HISTORY: COUGH TECHNIQUE: Frontal view of the chest. COMPARISON: Chest radiograph on 02/09/2020 FINDINGS: Hardware: None. Lungs/pleura: Stable consolidation and cavitation in the right upper lobe. Slightly increased patchy opacities in the left upper lobe. No pleural effusion or pneumothorax. Stable mild elevation of the right hemidiaphragm. Heart/mediastinum: Stable mild enlargement of the cardiac silhouette. Soft tissues: Unremarkable. Bones: No acute fracture. Degenerative changes of the acromioclavicular joints. Upper abdomen: Normal. IMPRESSION: Stable consolidation and cavitation in the right upper lobe. Slightly increased patchy opacities in the left upper lobe.
--- NOTE | 2020-02-12 19:26 | NUR ---
NURSE HAND-OFF: Important Events on Shift:[mg 1.2, being infused MgSO4; put on )2 2L NC, obtained order cough syrup, resited 2x PIV, hard stick] Patient Status: [stable] Diet: [CCHO medium] Pending Orders: [aml: CK] Pending Results/Labs:[] Pending MD notification:[] Latest Vital Signs: Temperature 98.8 , Pulse 119 , B/P 162 /98 , Respiratory Rate 19 , O2 SAT 95 , Room Air, O2 Flow Rate 2.0 . Vital Sign Comment: [] Latest Pineda Fall Score: 35 Fall Risk: Medium Risk Safety Measures: Call light Within Reach, Bed Alarm Zone 1, Side Rails Side Rails x3, Bed position Low and Locked. Fall Precautions: Yellow Socks Yellow Gown Door Sign Patient Fall Education Report given to [JO-ANN Enciso].
--- NOTE | 2020-02-12 19:30 | NUR ---
NURSE NOTES: endorsed RN Enciso to infuse second (and last) bag of MgSO4 as it got delayed due to no IV access for few hours, pt is hard stick.
--- NOTE | 2020-02-12 19:44 | NUR ---
NURSE NOTES: Pt sleeping in bed, on NC 2L. IV site intact and patent. Flores in place draining yellow urine well. Pt c/o pain on L shoulder. No acute distress noted. Bed locked,lowest position, alarm on, side rails up, call light within reach. Will continue to monitor.
[2020-02-12 20:00] VITALS: BP 145/77
[2020-02-12] MEDS: Dyna-Hex 2% Top Sol 2oz TOPIC SCH (20:00)
[2020-02-12] MEDS: Epoetin Alfa-EPBX (NON ESRD)4000 units/ml vial SUBQ SCH (21:23)
[2020-02-13] VITALS (12 sets, daily range): BP systolic 118–180; BP diastolic 67–94
[2020-02-13] MEDS: Ipratropium 0.02% Inh Soln 2.5ml UD HHN SCH (03:45)
[2020-02-13] MEDS: HYDROcodone/Acetamin 10/325 tab ORAL PRN ×4 (04:05→22:14)
[2020-02-13] MEDS: Methocarbamol 500mg tab ORAL PRN ×2 (04:05→19:40)
[2020-02-13] MEDS: NovoLOG Insulin Flexpen SUBQ SCH ×4 (06:03→23:48)
[2020-02-13] MEDS: guaiFENesin /DM 10ml syrup ORAL PRN ×3 (06:37→22:13)
--- NOTE | 2020-02-13 07:32 | NUR ---
NURSE HAND-OFF: Important Events on Shift:SOB, coughing, wheezing Patient Status: in pain on L shoulder Diet: CCHO M Pending Orders: Pending Results/Labs:AM labs Pending MD notification: Latest Vital Signs: Temperature 98.0 , Pulse 92 , B/P 143 /79 , Respiratory Rate 23 , O2 SAT 94 , Nasal Cannula, O2 Flow Rate 1.0 . Vital Sign Comment: [] Latest Pineda Fall Score: 35 Fall Risk: Medium Risk Safety Measures: Call light Within Reach, Bed Alarm Zone 1, Side Rails Side Rails x3, Bed position Low and Locked. Fall Precautions: Yellow Socks Yellow Gown Door Sign Patient Fall Education Report given to [Najin].
--- NOTE | 2020-02-13 07:34 | NUR ---
NURSE NOTES: Received patient in bed,awake, alert and orientedx4. Denies pain or discomfort @ this time. On oxygen @ 2L via NC. Breathing is even and unlabored, less cough per patient. IV on right forearm is intact, no s/s of infiltration. Bed is in lowest position and locked. Will continue plan of care.
[2020-02-13 07:49] LABS: CREATINE KINASE 51 U/L (26-308)
--- NOTE | 2020-02-13 08:31 | Critical Care Progress Note ---
Assessment/Plan Assessment/Plan IMPRESSION acute respiratory failure leukocytosis sepsis ARF toxic met encephalopathy COPD DM poor control cavitary lesion negative AFB groundglass infiltrates NSTEMI severe PCM hypertension left shoulder pain bacteremia MRSA PLAN stable off tele lasix as is antibiotics per ID proceed with bronchoscopy and biopsy of RUL if patient agrees PO with caution cardiology follow up nitro PRN titrate BP meds defer PORFIRIO impression, plan, and exam edited and reviewed in detail care discussed with animal rides manager - Subjective Interval Events: d/w patient wants to talk to daughter before agreeing to bronchoscopy EKG Rhythm: Sinus Rhythm I&O: Intake and Output 02/12/20 02/13/20 19:00 07:00 Intake Total 840 ml 480 ml Output Total 1200 ml 500 ml Balance -360 ml -20 ml Intake Oral 840 ml 480 ml Output Urine Total 1200 ml 500 ml Critical Care - Objective Last 24 Hour Vital Signs Date Time Temp Pulse Resp B/P (MAP) Pulse Ox O2 Delivery O2 Flow Rate FiO2 02/13/20 04:00 98.0 92 23 143/79 (100) 94 02/13/20 03:48 101 18 99 Nasal Cannula 1.0 24 98 18 96 02/13/20 00:57 98 18 96 Nasal Cannula 1.0 24 02/13/20 00:00 98.0 99 22 155/94 (114) 96 02/12/20 23:52 99 18 98 Nasal Cannula 1.0 24 02/12/20 23:29 155/94 02/12/20 21:00 Nasal Cannula 2.0 02/12/20 20:40 105 145/77 02/12/20 20:29 Nasal Cannula 02/12/20 20:00 98.1 105 22 145/77 (99) 96 02/12/20 16:18 162/98 02/12/20 16:00 98.8 119 19 162/98 (119) 95 02/12/20 15:47 125 20 84 02/12/20 15:17 98.8 02/12/20 12:00 98.1 108 19 163/92 (115) 97 02/12/20 11:51 102 20 98 Room Air 21 02/12/20 11:41 98 20 94 Room Air 21 02/12/20 08:55 109 154/85 02/12/20 08:55 154/85 02/12/20 08:55 109 154/85 Labs: Laboratory Tests 02/12/20 08:32: White Blood Count 8.7, Red Blood Count 3.34L, Hemoglobin 9.8L, Hematocrit 32.4L, Mean Corpuscular Volume 97, Mean Corpuscular Hemoglobin 29.4, Mean Corpuscular Hemoglobin Concent 30.3L, Red Cell Distribution Width 16.5H, Platelet Count 334, Mean Platelet Volume 6.7, Neutrophils (%) (Auto) 70.8, Lymphocytes (%) (Auto) 17.1L, Monocytes (%) (Auto) 10.1H, Eosinophils (%) (Auto) 1.1, Basophils (%) (Auto) 1.0, Sodium Level 133L, Potassium Level 4.1, Chloride Level 99, Carbon Dioxide Level 30, Anion Gap 4L, Blood Urea Nitrogen 12, Creatinine 0.9, Estimat Glomerular Filtration Rate > 60, Glucose Level 221H, Calcium Level 7.5L, Magnesium Level 1.2L, Total Bilirubin 0.6, Aspartate Amino Transf (AST/SGOT) 64H , Alanine Aminotransferase (ALT/SGPT) 41, Alkaline Phosphatase 690H, Pro-B-Type Natriuretic Peptide 6170H, Total Protein 6.9, Albumin 1.9L, Globulin 5.0, Albumin/Globulin Ratio 0.4L 02/12/20 11:34: POC Whole Blood Glucose [Pending] 02/12/20 16:37: POC Whole Blood Glucose [Pending] 02/12/20 23:30: POC Whole Blood Glucose [Pending] 02/13/20 05:43: POC Whole Blood Glucose [Pending] 02/13/20 06:15: Total Creatine Kinase 51 Objective: WDWN ill appearing reduced breath sounds bilaterally without rhonchi or wheeze [id number] without MRG NABS nontender no HSM no CC improved leg edema nonfocal Accucheck: 180 Germán Feliz MD Feb 13, 2020 08:30
--- NOTE | 2020-02-13 08:35 | General Progress Note ---
Subjective Date patient seen: Feb 13, 2020 Time patient seen: 07:00 - am Allergies: Coded Allergies: No Known Allergies (Unverified , 07/30/15) Subjective HISTORY OF PRESENT ILLNESS: This is a 59-year-old female who is being seen on the Med/Surg floor of [facility]. Patient showing no signs of pain or distress. Pain has been tolerated on the medication. Xray was reviewed. REVIEW OF SYSTEMS: Denies rash, fever, chills, sweating, dizziness, drowsiness, sore throat, or change in her weight. No nausea, vomiting, diarrhea, blood in the stool or urine. No dysuria. Objective Last 24 Hour Vital Signs Date Time Temp Pulse Resp B/P (MAP) Pulse Ox O2 Delivery O2 Flow Rate FiO2 02/13/20 04:00 98.0 92 23 143/79 (100) 94 02/13/20 03:48 101 18 99 Nasal Cannula 1.0 24 98 18 96 02/13/20 00:57 98 18 96 Nasal Cannula 1.0 24 02/13/20 00:00 98.0 99 22 155/94 (114) 96 02/12/20 23:52 99 18 98 Nasal Cannula 1.0 24 02/12/20 23:29 155/94 02/12/20 21:00 Nasal Cannula 2.0 02/12/20 20:40 105 145/77 02/12/20 20:29 Nasal Cannula 02/12/20 20:00 98.1 105 22 145/77 (99) 96 02/12/20 16:18 162/98 02/12/20 16:00 98.8 119 19 162/98 (119) 95 02/12/20 15:47 125 20 84 02/12/20 15:17 98.8 02/12/20 12:00 98.1 108 19 163/92 (115) 97 02/12/20 11:51 102 20 98 Room Air 21 02/12/20 11:41 98 20 94 Room Air 21 02/12/20 08:55 109 154/85 02/12/20 08:55 154/85 02/12/20 08:55 109 154/85 Intake and Output 02/12/20 02/13/20 19:00 07:00 Intake Total 840 ml 480 ml Output Total 1200 ml 500 ml Balance -360 ml -20 ml Intake Oral 840 ml 480 ml Output Urine Total 1200 ml 500 ml Laboratory Tests 02/12/20 11:34: POC Whole Blood Glucose [Pending] 02/12/20 16:37: POC Whole Blood Glucose [Pending] 02/12/20 23:30: POC Whole Blood Glucose [Pending] 02/13/20 05:43: POC Whole Blood Glucose [Pending] 02/13/20 06:15: Total Creatine Kinase 51 Height (Feet): 5 Height (Inches): 1.00 Weight (Pounds): 168 Objective PHYSICAL EXAMINATION: GENERAL: Alert, awake, and oriented. LUNGS: Decreased breath sounds bilaterally. HEART: S1 and S2 regular. ABDOMEN: Obese. EXTREMITIES: No cyanosis. No clubbing. NEURO: No changes. Cervical Xray Cervical lordosis is straightened, which may be due to patient positioning or muscle spasm. C1-C7 is evaluated without overlapping shadows. No spondylolisthesis. Vertebral body heights are maintained. There are multilevel discogenic degenerative changes characterized by disc space narrowing, endplate osteophyte formation, and multilevel uncovertebral hypertrophy. The dens is intact. Atlantodental intervals with respect to lateral masses are maintained. No prevertebral soft tissue swelling. Assessment/Plan Assessment/Plan: (1) Cervical DDD (2) Cervical Spondylosis Patient to be continued on [place], Neurontin, Robaxin and Lidocaine patch. D/w Dr. Landa and he concurred. Monster Corey Feb 13, 2020 08:35
[2020-02-13] MEDS: Imdur 30mg tab ORAL SCH (09:12)
[2020-02-13] MEDS: Pantoprazole Inj IVP SCH ×2 (09:12→20:57)
[2020-02-13] MEDS: Aspirin Baby 81mg ORAL SCH (09:13)
[2020-02-13] MEDS: Levemir Flexpen SUBQ SCH ×2 (09:20→17:32)
--- NOTE | 2020-02-13 11:28 | Infectious Diseases Prog Note ---
Assessment/Plan Assessment/Plan antibiotics : daptomycin iv A 1. cavitary pneumonia sputum AFB negative x 3 2. MRSA sepsis r/o endocarditis 3. diabetes mellitus 4. hypertension 5. COPD 6. renal failure improving 7. aortic stenosis 8. + blood culture with bacillus likely contaminated P 1. d/c daptomycin iv 2. start iv vancomcyin, continue 30 more days 3. will follow up cultures 4. bronchoscopy with biopsy planned Subjective Constitutional: Denies: fever, chills Respiratory: Reports: shortness of breath, dry cough Gastrointestinal/Abdominal: Denies: nausea, vomiting, diarrhea Musculoskeletal: Reports: pain Allergies: Coded Allergies: No Known Allergies (Unverified , 07/30/15) Objective Last 24 Hour Vital Signs Date Time Temp Pulse Resp B/P (MAP) Pulse Ox O2 Delivery O2 Flow Rate FiO2 02/13/20 09:13 110 156/92 02/13/20 09:12 156/92 02/13/20 09:12 110 156/92 02/13/20 08:00 97.7 110 20 156/92 (113) 95 02/13/20 04:00 98.0 92 23 143/79 (100) 94 02/13/20 03:48 101 18 99 Nasal Cannula 1.0 24 98 18 96 02/13/20 00:57 98 18 96 Nasal Cannula 1.0 24 02/13/20 00:00 98.0 99 22 155/94 (114) 96 02/12/20 23:52 99 18 98 Nasal Cannula 1.0 24 02/12/20 23:29 155/94 02/12/20 21:00 Nasal Cannula 2.0 02/12/20 20:40 105 145/77 02/12/20 20:29 Nasal Cannula 02/12/20 20:00 98.1 105 22 145/77 (99) 96 02/12/20 16:18 162/98 02/12/20 16:00 98.8 119 19 162/98 (119) 95 02/12/20 15:47 125 20 84 02/12/20 15:17 98.8 02/12/20 12:00 98.1 108 19 163/92 (115) 97 02/12/20 11:51 102 20 98 Room Air 21 02/12/20 11:41 98 20 94 Room Air 21 Height (Feet): 5 Height (Inches): 1.00 Weight (Pounds): 168 Respiratory/Chest: rhonchi - bilaterally Cardiovascular: normal rate, regular rhythm, no gallop/murmur Abdomen: soft, non tender Extremities: no edema Laboratory Tests Test 02/12/20 11:34 02/12/20 16:37 02/12/20 23:30 02/13/20 05:43 POC Whole Blood Glucose Pending Pending Pending Pending Test 02/13/20 06:15 02/13/20 09:17 Total Creatine Kinase 51 U/L (26-308) POC Whole Blood Glucose 217 MG/DL (74-106) H Current Medications Medications (Trade) Dose Ordered Sig/Ivana Route PRN Reason Start Time Stop Time Status Last Admin Dose Admin Acetaminophen (Tylenol) 650 mg Q6H PRN ORAL MILD PAIN, FEVER 01/28/20 22:45 02/27/20 22:44 02/05/20 21:20 Acetaminophen/ Hydrocodone Bitart ([place] 10/325) 1 tab Q4H PRN ORAL Moderate Pain (Pain Scale 4-6) 02/11/20 09:45 02/18/20 09:44 02/13/20 04:05 Amlodipine Besylate (Norvasc) 10 mg DAILY ORAL 02/01/20 09:00 03/02/20 08:59 02/13/20 09:12 Chlorhexidine Gluconate (Divina-Hex 2%) 1 applic DAILY@2000 TOPIC 01/29/20 20:00 04/28/20 19:59 02/06/20 20:58 Clonidine HCl (Catapres Tab) 0.1 mg Q4H PRN ORAL SBP > 150mmHg 02/06/20 07:00 05/06/20 06:59 02/12/20 23:29 Daptomycin 450 mg/ Sodium Chloride 55 ml @ 100 mls/hr Q24H IV 02/10/20 13:00 02/17/20 12:59 02/12/20 14:15 Dextrose (Dextrose 50%) 25 ml Q30M PRN IV Hypoglycemia 01/28/20 22:45 04/27/20 22:44 Dextrose (Dextrose 50%) 50 ml Q30M PRN IV Hypoglycemia 01/28/20 22:45 04/27/20 22:44 Epoetin Haseeb (Epoetin Haseeb-EPBX(NON ESRD)) 8,000 unit WED-WED-WED SUBQ 02/05/20 21:00 05/05/20 20:59 02/12/20 21:23 Furosemide (Lasix) 20 mg DAILY IV 02/07/20 12:30 03/08/20 12:29 02/13/20 09:13 Gabapentin (Neurontin) 300 mg THREE TIMES A DAY ORAL 02/11/20 09:30 03/12/20 09:29 02/13/20 09:13 Guaifenesin/ Dextromethorphan (Robitussin DM Syrup) 15 ml Q4H PRN ORAL For Cough 02/12/20 16:53 05/12/20 16:52 02/13/20 06:37 Insulin Aspart (NovoLOG) Q6HR SUBQ 01/29/20 00:00 04/28/20 00:00 02/13/20 06:03 Insulin Detemir (Levemir) 10 units BID SUBQ 02/08/20 18:00 05/04/20 17:59 02/13/20 09:20 Isosorbide Mononitrate (Imdur) 30 mg DAILY ORAL 02/02/20 09:00 03/03/20 08:59 02/13/20 09:12 Lidocaine (Lidoderm 5% PATCH) 1 patch DAILY TDERMAL 02/11/20 09:30 05/11/20 09:29 02/13/20 09:13 Methocarbamol (Robaxin) 500 mg Q8H PRN ORAL muscle spasm 02/11/20 09:30 03/12/20 09:29 02/13/20 04:05 Metoprolol Tartrate (Lopressor) 25 mg Q12HR ORAL 02/04/20 21:00 05/04/20 20:59 02/13/20 09:13 Nitroglycerin (Ntg) 0.4 mg Q5M PRN SL Prn Chest Pain 02/01/20 08:00 03/02/20 07:59 02/03/20 06:17 Ondansetron HCl (Zofran) 4 mg Q6H PRN IVP Nausea & Vomiting 01/28/20 22:45 02/27/20 22:44 02/01/20 18:10 Pantoprazole (Protonix) 40 mg EVERY 12 HOURS IVP 02/01/20 22:00 03/02/20 21:59 02/13/20 09:12 Messi Lopez MD Feb 13, 2020 11:28
--- NOTE | 2020-02-13 11:52 | NUR ---
NURSE NOTES: Patient is sitting up in a chair and complains of SOB and states that her chest feels funny,patient is awake, alert and oriented x4. V/S obtained, o2sat is 100% with 2 L of oxygen with NC, left lung sound is clear but wheezing on right and patient noted with productive cough with blood tinged pale yellowish phlegm and blood tinged urine noted. Patient is tachycardic with pulse of 117 and Bp is elevated, patient denies squeezing or sharp pain on her chest. RN contacted to Dr. Feliz with new order to increase lasix to 40mg IVP, chest x-ray was done yesterday. Patient is afebrile. RN reminded patient call nurses if needed. Call light within reach,patient wants to sit up in a chair now. Rn also recommended to Dr. Feliz for EKG,ABG,labs.
[2020-02-13 12:43] LABS: ALANINE AMINOTRANSFERASE 46 U/L (12-78); ALBUMIN 2.3 G/DL (3.4-5.0); ALBUMIN/GLOBULIN RATIO 0.4 (1.0-2.7); ALKALINE PHOSPHATASE 801 U/L (46-116); ANION GAP 6 mmol/L (5-15); ASPARTATE AMINO TRANSFERASE 72 U/L (15-37); BILIRUBIN,TOTAL 0.6 MG/DL (0.2-1.0); BLOOD UREA NITROGEN 12 mg/dL (7-18); CALCIUM 7.7 MG/DL (8.5-10.1); CARBON DIOXIDE 30 MMOL/L (21-32); CHLORIDE 99 MMOL/L (98-107); POTASSIUM 4.3 MMOL/L (3.5-5.1); SODIUM 135 MMOL/L (136-145)
[2020-02-13 12:50] LABS: BASOPHILS % (AUTO) 0.9 % (0.0-2.0); EOSINOPHILS % (AUTO) 1.3 % (0.0-3.0); HEMATOCRIT 33.9 % (37.0-47.0); LYMPHOCYTES % (AUTO) 10.3 % (20.0-45.0); MEAN CORPUSCULAR VOLUME 97 FL (80-99); MONOCYTES % (AUTO) 6.4 % (1.0-10.0); NEUTROPHILS % (AUTO) 81.1 % (45.0-75.0); PLATELET COUNT 363 K/UL (150-450); RED BLOOD COUNT 3.49 M/UL (4.20-5.40); RED CELL DISTRIBUTION WIDTH 16.2 % (11.6-14.8); WHITE BLOOD COUNT 10.7 K/UL (4.8-10.8)
--- NOTE | 2020-02-13 13:43 | NUR ---
NURSE NOTES: Transferred patient to [facility], report given to Chirag and endorsed plan of care. Given lasix 40mg IVP prior to transfer. ABG and EKG was done. Skin is intact, all belongings were check and accounted for. Patient is on 2 L of oxygen with o2sat of 100% with wheezing. Patient refused breathing tx prior to transfer. Patient talked to her family on the phone and informed transfer. RN tried to get consent from the patient for bronchoscopy for tomorrow but patient wants RN to talk to her daughter instead. Endorsed to Chirag. ASA is on hold due to blood tinged phlegm and urine. PRBC is PRN for the procedure for tomorrow. Patient will be on NPO post mid night if daughter agrees to the procedure. Patient denied chest pain. Transferred patient to without issues.
--- NOTE | 2020-02-13 13:47 | NUR ---
NURSE NOTES: Received patient in hospital bed from med/surg floor. Awake, A/O x4. On 2 L NC, respirations 24/min. Patient denies pain. Belongings list verified. Patient oriented to room and surroundings. Call light within reach with return demonstration. VS taken. Heart monitor placed.
--- NOTE | 2020-02-13 13:55 | NUR ---
NURSE NOTES: Patient states difficulty breathing. Respiratory therapy contacted for breathing tx.
[2020-02-13] MEDS: Vancomycin 1.25gm/250ml Premix IVPB SCH (14:02)
[2020-02-13] MEDS: Ipratropium 0.02% Inh Soln 2.5ml UD HHN PRN (14:06)
--- NOTE | 2020-02-13 15:31 | NUR ---
NURSE NOTES: Zuri harman contacted for bronchoscopy procedure scheduled 02/13 per patient's request. Zuri Flores to call patient on cell phone.
--- NOTE | 2020-02-13 15:45 | NUR ---
NURSE NOTES: Dr. Feliz contacted regarding [id number] after tylenol 650 mg given, pain 10/10 in chest and stomach after norco given, respirations 30/min, patient states "I do not feel good." Also communicated latest ABG results. Awaiting response. Patient repositioned in bed, offered ice and water. Patient A/O x4, able to make her needs known.
--- NOTE | 2020-02-13 15:49 | NUR ---
CASE MANAGEMENT: REVIEW SI: CAVITARY PNA . COPD . DM SPUTUM AFB NEGATIVE X 3 T 99.5 HR 118 RR 21 BP 180/93 SAT 96% NC/2L H/H 10.0/33.9 NA 135 GLUCOSE 231 IS: VANCOMYCIN IV Q24HR LASIX IV QD LIDODERM PATCH QD PROTONIX IV Q12HR BRONCHOSCOPY w/ BIOPSY PENDING TELEMETRY UNIT STATUS DCP: PATIENT IS FROM HOME
--- NOTE | 2020-02-13 16:05 | NUR ---
NURSE NOTES: Spoke to Dr. Feliz with new orders for STAT venoud duplex of BLE for r/o DVT, Move to ICU, blood culture x2, urine culture, sputum culture, CXR, CBC. Orders carried out. Number for los Bernstein [phone] Feliz.
--- NOTE | 2020-02-13 17:00 | NUR ---
NURSE NOTES: Patient transferred to ICU [id number]. A, A/O x4. On 2 L NC. Patients respirations 30/min, o2 sat 91%. Patient still c/o chest pain and abdominal pain. Belonging list verified, Heart monitor replaced. Report given to Gaurav BUSCH
--- NOTE | 2020-02-13 17:00 | NUR ---
NURSE NOTES: Urine culture collected and sent down to lab.
--- NOTE | 2020-02-13 17:07 | Anethesia Preoperative Eval ---
Anesthesia Pre-op PMH/ROS General Date of Evaluation: Feb 13, 2020 Time of Evaluation: 17:03 Anesthesiologist: Lacho ASA Score: ASA 3 Mallampati Score Class I : Soft palate, uvula, fauces, pillars visible Class II: Soft palate, uvula, fauces visible Class III: Soft palate, base of uvula visible Class IV: Only hard plate visible Mallampati Classification: Class III Surgeon: Chani Diagnosis: R lung cavitary lesion Surgical Procedure: Bronchoscopy Bx. Anesthesia History: none Social History: smoking - h/o Family History: no anesthesia problems Allergies: Coded Allergies: No Known Allergies (Unverified , 07/30/15) Medications: see eMAR Patient NPO?: Yes Past Medical History Cardiovascular: Reports: HTN; Denies: CAD, AL, valve dz, arrhythmia, other Pulmonary: Reports: COPD, other - recurrent pneumonia; Denies: asthma, MARLO Gastrointestinal/Genitourinary: Reports: GERD Neurologic/Psychiatric: Reports: depression/anxiety; Denies: dementia, CVA, TIA, other Endocrine: Reports: DM - poorly controled, hypothyroidism HEENT: Denies: cataract (L), cataract (R), glaucoma, [place] (L), [place] (R), other Hematology/Immune: Reports: anemia; Denies: DVT, bleeding disorder, other Musculoskeletal/Integumentary: Reports: OA; Denies: RA, DJD, DDD, edema, other PMH Narrative: as above PSxH Narrative: see H&P Anesthesia Pre-op Phys. Exam Physician Exam Last Vital Signs Date Time Temp Pulse Resp B/P (MAP) Pulse Ox O2 Delivery O2 Flow Rate FiO2 02/13/20 14:58 101.8 02/13/20 14:06 118 21 99 Nasal Cannula 2.0 28 115 22 96 02/13/20 14:01 180/93 Constitutional: NAD Neurologic: other - unable to obtaine Cardiovascular: RRR Respiratory: other - diminished breath sounds Gastrointestinal: S/NT/ND Airway Exam Mallampati Score: Class II MO: limited Neck: stiff ROM: limited Teeth: missing Dentures: no upper, no lower Anesthesia Pre-op A/P Labs Hematology Test 02/13/20 06:15 White Blood Count 10.7 K/UL (4.8-10.8) Red Blood Count 3.49 M/UL (4.20-5.40) L Hemoglobin 10.0 G/DL (12.0-16.0) L Hematocrit 33.9 % (37.0-47.0) L Mean Corpuscular Volume 97 FL (80-99) Mean Corpuscular Hemoglobin 28.8 PG (27.0-31.0) Mean Corpuscular Hemoglobin Concent 29.6 G/DL (32.0-36.0) L Red Cell Distribution Width 16.2 % (11.6-14.8) H Platelet Count 363 K/UL (150-450) Mean Platelet Volume 6.4 FL (6.5-10.1) L Neutrophils (%) (Auto) 81.1 % (45.0-75.0) H Lymphocytes (%) (Auto) 10.3 % (20.0-45.0) L Monocytes (%) (Auto) 6.4 % (1.0-10.0) Eosinophils (%) (Auto) 1.3 % (0.0-3.0) Basophils (%) (Auto) 0.9 % (0.0-2.0) Chemistry Test 02/12/20 23:30 02/13/20 05:43 02/13/20 06:15 02/13/20 09:17 POC Whole Blood Glucose Pending Pending 217 MG/DL (74-106) H Sodium Level 135 MMOL/L (136-145) L Potassium Level 4.3 MMOL/L (3.5-5.1) Chloride Level 99 MMOL/L (98-107) Carbon Dioxide Level 30 MMOL/L (21-32) Anion Gap 6 mmol/L (5-15) Blood Urea Nitrogen 12 mg/dL (7-18) Creatinine 1.0 MG/DL (0.55-1.30) Estimat Glomerular Filtration Rate > 60 mL/min (>60) Glucose Level 215 MG/DL (74-106) H Calcium Level 7.7 MG/DL (8.5-10.1) L Total Bilirubin 0.6 MG/DL (0.2-1.0) Aspartate Amino Transf (AST/SGOT) 72 U/L (15-37) H Alanine Aminotransferase (ALT/SGPT) 46 U/L (12-78) Alkaline Phosphatase 801 U/L (46-116) H Total Creatine Kinase 51 U/L (26-308) Total Protein 7.6 G/DL (6.4-8.2) Albumin 2.3 G/DL (3.4-5.0) L Globulin 5.3 g/dL Albumin/Globulin Ratio 0.4 (1.0-2.7) L Test 02/13/20 11:39 POC Whole Blood Glucose 231 MG/DL (74-106) H Studies Pre-op Studies: EKG - sr Risk Assessment & Plan Assessment: ASA 3 Plan: GA with ETT Status Change Before Surgery: No Pre-Antibiotics Drug: as Joce Oliver MD Feb 13, 2020 17:07
--- NOTE | 2020-02-13 17:08 | NUR ---
NURSE NOTES: Dr. Zhang spoke to RN with new orders to discontinue bronchoscopy, restart aspirin, and discontinue NPO after midnight.
--- NOTE | 2020-02-13 17:30 | NUR ---
NURSE NOTES: Received patient from Chirag BUSCH. Patient is awake, alert and oriented x3. Sinus Tachycardia on the heart monitor, HR 110. Receiving oxygen via nasal cannula at 2L/min. IV site is Right Forearm 22g patent and intact. Flores catheter is intact and draining. Bed is locked, placed in lowest position, side rails up x3, bed alarm on, head of bed elevated. Will continue to monitor.
[2020-02-13 17:40] LABS: EOSINOPHILS % (AUTO) 0.7 % (0.0-3.0); HEMATOCRIT 31.2 % (37.0-47.0); HEMOGLOBIN 9.8 G/DL (12.0-16.0); LYMPHOCYTES % (AUTO) 9.3 % (20.0-45.0); MEAN CORPUSCULAR VOLUME 92 FL (80-99); MONOCYTES % (AUTO) 5.3 % (1.0-10.0); NEUTROPHILS % (AUTO) 83.8 % (45.0-75.0); PLATELET COUNT 337 K/UL (150-450); RED BLOOD COUNT 3.39 M/UL (4.20-5.40)
[2020-02-13] MEDS: Zosyn 3.375gm q8h **Extended infusion IVPB SCH ×2 (17:49)
--- NOTE | 2020-02-13 18:06 | NUR ---
NURSE NOTES: venous duplex done by tech, results negative.
--- NOTE | 2020-02-13 18:51 | NUR ---
NURSE NOTES: New order from Dr pearl for lovenox 1mg/kg sq BID STAT. Order carried out. Informed Kiwon charge nurse in ICU.
[2020-02-13] MEDS: Enoxaparin 80mg Inj SUBQ SCH (18:59)
--- NOTE | 2020-02-13 19:25 | NUR ---
NURSE HAND-OFF REPORT: Latest Vital Signs: Temperature 99.6 , Pulse 105 , B/P 150 /67 , Respiratory Rate 24 , O2 SAT 100 , Nasal Cannula, O2 Flow Rate 2.0 . Vital Sign Comment: EKG Rhythm: Sinus Rhythm Rhythm change?: N MD Notified?: - MD Response: Latest Pineda Fall Score: 35 Fall Risk: Medium Risk Safety Measures: Call light Within Reach, Bed Alarm Zone 1, Side Rails Side Rails x3, Bed position Low and Locked. Fall Precautions: Yellow Socks Yellow Gown Door Sign Patient Fall Education Report given to Ras BUSCH.
--- NOTE | 2020-02-13 19:30 | NUR ---
NURSE NOTES: Received report from JO-ANN Nolasco. Pt is resting on the bed and awake and alert.On O2 2L via nasal cannula and SaO2 100% noted. On clinical research monitor with ST and HR: 105's. Denied chest pain at this time. Iv site intact and no sign of infiltration noted. On Flores cath and patent and drainage well. Placed fall precaution. Will continue to care plan.
--- NOTE | 2020-02-13 20:27 | General Progress Note ---
Subjective Allergies: Coded Allergies: No Known Allergies (Unverified , 07/30/15) Subjective Above noted patient seen early am , around 0800 no symptoms at that time (+) BM with laxative events subsequent to visit noted Objective Last 24 Hour Vital Signs Date Time Temp Pulse Resp B/P (MAP) Pulse Ox O2 Delivery O2 Flow Rate FiO2 02/13/20 19:00 105 24 150/67 (94) 100 02/13/20 18:00 107 23 144/75 (98) 100 02/13/20 17:30 Nasal Cannula 2.0 02/13/20 17:00 99.6 112 25 158/73 (101) 100 02/13/20 14:58 101.8 02/13/20 14:31 99.0 02/13/20 14:06 118 21 99 Nasal Cannula 2.0 28 115 22 96 02/13/20 14:01 180/93 02/13/20 13:56 99.5 108 24 180/93 (122) 98 02/13/20 12:15 96 Nasal Cannula 2.0 28 02/13/20 12:00 98.1 117 22 155/89 (111) 99 02/13/20 09:13 110 156/92 02/13/20 09:12 156/92 02/13/20 09:12 110 156/92 02/13/20 08:00 97.7 110 20 156/92 (113) 95 02/13/20 04:00 98.0 92 23 143/79 (100) 94 02/13/20 03:48 101 18 99 Nasal Cannula 1.0 24 98 18 96 02/13/20 00:57 98 18 96 Nasal Cannula 1.0 24 02/13/20 00:00 98.0 99 22 155/94 (114) 96 02/12/20 23:52 99 18 98 Nasal Cannula 1.0 24 02/12/20 23:29 155/94 02/12/20 21:00 Nasal Cannula 2.0 02/12/20 20:40 105 145/77 02/12/20 20:29 Nasal Cannula Intake and Output 02/12/20 02/13/20 19:00 07:00 Intake Total 840 ml 480 ml Output Total 1200 ml 500 ml Balance -360 ml -20 ml Intake Oral 840 ml 480 ml Output Urine Total 1200 ml 500 ml Laboratory Tests 02/12/20 23:30: POC Whole Blood Glucose [Pending] 02/13/20 05:43: POC Whole Blood Glucose [Pending] 02/13/20 06:15: White Blood Count 10.7, Red Blood Count 3.49L, Hemoglobin 10.0L, Hematocrit 33.9L, Mean Corpuscular Volume 97, Mean Corpuscular Hemoglobin 28.8, Mean Corpuscular Hemoglobin Concent 29.6L, Red Cell Distribution Width 16.2H, Platelet Count 363, Mean Platelet Volume 6.4L, Neutrophils (%) (Auto) 81.1H, Lymphocytes (%) (Auto) 10.3L, Monocytes (%) (Auto) 6.4, Eosinophils (%) (Auto) 1.3, Basophils (%) (Auto) 0.9, Sodium Level 135L, Potassium Level 4.3, Chloride Level 99, Carbon Dioxide Level 30, Anion Gap 6, Blood Urea Nitrogen 12, Creatinine 1.0, Estimat Glomerular Filtration Rate > 60, Glucose Level 215H, Calcium Level 7.7L, Total Bilirubin 0.6, Aspartate Amino Transf (AST/SGOT) 72H, Alanine Aminotransferase (ALT/SGPT) 46, Alkaline Phosphatase 801H, Total Crea vasquez Kinase 51, Total Protein 7.6, Albumin 2.3L, Globulin 5.3, Albumin/Globulin Ratio 0.4L 02/13/20 09:17: POC Whole Blood Glucose 217H 02/13/20 11:39: POC Whole Blood Glucose 231H 02/13/20 12:12: Arterial Blood pH 7.398, Arterial Blood Partial Pressure CO2 51.5H, Arterial Blood Partial Pressure O2 65.2L, Arterial Blood HCO3 31.0H, Arterial Blood Oxygen Saturation 92.7L, Arterial Blood Base Excess 5.3H, Bryan Test Positive 02/13/20 17:00: White Blood Count 12.0H, Red Blood Count 3.39L, Hemoglobin 9.8L, Hematocrit 31.2L, Mean Corpuscular Volume 92, Mean Corpuscular Hemoglobin 29.0, Mean Corpuscular Hemoglobin Concent 31.5L, Red Cell Distribution Width 16.0H, Platelet Count 337, Mean Platelet Volume 6.2L, Neutrophils (%) (Auto) 83.8H, Lymphocytes (%) (Auto) 9.3L, Monocytes (%) (Auto) 5.3, Eosinophils (%) (Auto) 0.7, Basophils (%) (Auto) 1.0, Creatine Kinase MB 0.5, Troponin I 0.037 Height (Feet): 5 Height (Inches): 1.00 Weight (Pounds): 168 Objective WDWN NCAT supple CTA RR Abd soft ND mild edema Assessment/Plan Assessment/Plan: Assessment - hepatitis C with nodular liver, PCR (+) - constipation - resolved - Swallowing Sx - resolved - HTN - COPD - Lung mass - DM - PSVT Recommendations - po as tolerated - follow LFT - PPI - Elevate HOB - outpatient HCV Rx - laxative Feliberto Pérez MD Feb 13, 2020 20:27
--- NOTE | 2020-02-13 22:00 | NUR ---
NURSE NOTES: pt is resting on the bed and watching TV. On O2 2L via nasal cannula and SaO2 100%. On cardiac rehab nurse with SR and HR: 90's. Denied chest pain at this time. Placed fall precaution. Will continue to monitor any change of condition.
[2020-02-14] VITALS (15 sets, daily range): BP systolic 100–166; BP diastolic 54–95
--- NOTE | 2020-02-14 | NUR ---
NURSE NOTES: Pt is resting on the bed and awake and alert. V/S is stable and SR on patient monitor. No fever. No c/o chest pain. Provided good sleep environment. Placed fall precaution. will continue to monitor any change of condition.
[2020-02-14] MEDS: Zosyn 3.375gm q8h **Extended infusion IVPB SCH ×6 (00:52→18:07)
--- NOTE | 2020-02-14 02:00 | NUR ---
NURSE NOTES: Pt is sleeping on the bed and no sign of acute distress noted. V/s is stable. will continue to monitor.
--- NOTE | 2020-02-14 04:00 | NUR ---
NURSE NOTES: Morning care was done. Cleaned Pt and applied lotion and cream. Noted redness on inguinal and abdomen folding area. Applied skin barrier cream. Collected blood sample and sputum sample. Denied chest pain at this time. Pt able to turn with assistance. On cardiac cath lab radiology technologist with SR. Placed fall precaution. Will continue to monitor any change of condition.
[2020-02-14 05:55] LABS: INR 1.1 (0.9-1.1)
[2020-02-14 05:57] LABS: BASOPHILS % (AUTO) 1.4 % (0.0-2.0); EOSINOPHILS % (AUTO) 1.9 % (0.0-3.0); HEMATOCRIT 32.4 % (37.0-47.0); HEMOGLOBIN 9.9 G/DL (12.0-16.0); LYMPHOCYTES % (AUTO) 16.7 % (20.0-45.0); MEAN CORPUSCULAR VOLUME 98 FL (80-99); MONOCYTES % (AUTO) 8.9 % (1.0-10.0); NEUTROPHILS % (AUTO) 71.2 % (45.0-75.0); PLATELET COUNT 348 K/UL (150-450); RED BLOOD COUNT 3.32 M/UL (4.20-5.40); WHITE BLOOD COUNT 8.7 K/UL (4.8-10.8)
--- NOTE | 2020-02-14 06:00 | NUR ---
NURSE NOTES: Pt is sleeping on the bed and no sign of acute distress noted. Still noted on & off coughing. Placed fall precaution. Will continue to monitor any change of condition.
[2020-02-14] MEDS: NovoLOG Insulin Flexpen SUBQ SCH ×3 (06:03→18:08)
[2020-02-14 06:04] LABS: CALCIUM 7.7 MG/DL (8.5-10.1); CREATININE 1.2 MG/DL (0.55-1.30); POTASSIUM 4.4 MMOL/L (3.5-5.1)
--- NOTE | 2020-02-14 07:25 | NUR ---
NURSE HAND-OFF REPORT: Latest Vital Signs: Temperature 98.8 , Pulse 80 , B/P 112 /54 , Respiratory Rate 14 , O2 SAT 100 , Nasal Cannula, O2 Flow Rate 2.0 . Vital Sign Comment: EKG Rhythm: Sinus Rhythm Rhythm change?: N Latest Pineda Fall Score: 35 Fall Risk: Medium Risk Safety Measures: Call light Within Reach, Bed Alarm Zone 1, Side Rails Side Rails x3, Bed position Low and Locked. Fall Precautions: Yellow Socks Yellow Gown Door Sign Patient Fall Education Report given to JO-ANN Almeida. Pt is sleeping on the bed and no sign of acute distress noted.
--- NOTE | 2020-02-14 07:30 | NUR ---
NURSE NOTES: Patient stable with no s/sx of distress, sleeping at this time. VSS. RR even and unlabored on 2L NC with RR at 18 spo2 99%. Side rails upx2, call light within reach, bed low and locked.
--- NOTE | 2020-02-14 08:00 | NUR ---
NURSE NOTES: Patient awake now AOx4 with no s/sx of distress complaining of chronic LT shoulder pain radiating to chest. VSS. RR even and unlabored on 2L NC with RR at 18 spo2 99%. Breath and cardiac sounds benign. NSR on manager cardiac cath. Bowel sounds present. BL pulses bounding. Flores draining well to gravity. Side rails upx2, call light within reach, bed low and locked.
--- NOTE | 2020-02-14 08:32 | General Progress Note ---
Subjective Date patient seen: Feb 14, 2020 Time patient seen: 07:15 - am Allergies: Coded Allergies: No Known Allergies (Unverified , 07/30/15) Subjective HISTORY OF PRESENT ILLNESS: This is a 59-year-old female who is being seen on the ICU of [facility]. Patient is in bed and showing no signs of pain or distress. Pain has been tolerated on the [place]. REVIEW OF SYSTEMS: Denies rash, fever, chills, sweating, dizziness, drowsiness, sore throat, or change in her weight. No nausea, vomiting, diarrhea, blood in the stool or urine. No dysuria. Objective Last 24 Hour Vital Signs Date Time Temp Pulse Resp B/P (MAP) Pulse Ox O2 Delivery O2 Flow Rate FiO2 02/14/20 07:46 97 Nasal Cannula 1.0 24 02/14/20 07:00 80 14 112/54 (73) 100 02/14/20 06:00 87 15 126/62 (83) 100 02/14/20 05:00 94 16 154/87 (109) 100 02/14/20 04:00 98.8 89 20 151/70 (97) 100 02/14/20 04:00 Nasal Cannula 2.0 02/14/20 04:00 87 02/14/20 03:00 82 20 115/64 (81) 100 02/14/20 02:00 78 28 137/71 (93) 100 02/14/20 01:00 73 13 100/54 (69) 100 02/14/20 00:00 Nasal Cannula 2.0 02/14/20 00:00 85 02/14/20 00:00 98.5 84 18 143/68 (93) 100 02/13/20 23:00 85 20 135/83 (100) 100 02/13/20 22:00 97 22 134/74 (94) 100 02/13/20 21:10 96 Nasal Cannula 1.0 24 02/13/20 21:00 108 23 151/67 (95) 100 02/13/20 20:57 106 140/66 02/13/20 20:00 Nasal Cannula 2.0 02/13/20 20:00 98.8 107 27 118/75 (89) 100 02/13/20 20:00 107 02/13/20 19:00 105 24 150/67 (94) 100 02/13/20 18:00 107 23 144/75 (98) 100 02/13/20 17:30 Nasal Cannula 2.0 02/13/20 17:00 99.6 112 25 158/73 (101) 100 02/13/20 14:58 101.8 02/13/20 14:31 99.0 02/13/20 14:06 118 21 99 Nasal Cannula 2.0 28 115 22 96 02/13/20 14:01 180/93 02/13/20 13:56 99.5 108 24 180/93 (122) 98 02/13/20 12:15 96 Nasal Cannula 2.0 28 02/13/20 12:00 98.1 117 22 155/89 (111) 99 02/13/20 09:13 110 156/92 02/13/20 09:12 156/92 02/13/20 09:12 110 156/92 Intake and Output 02/13/20 02/14/20 19:00 07:00 Intake Total 32.54 ml 1027.46 ml Output Total 1400 ml 830 ml Balance -1367.46 ml 197.46 ml Intake Oral 840 ml IV Total 32.54 ml 187.46 ml Output Urine Total 1400 ml 830 ml # Bowel Movements 1 Laboratory Tests 02/13/20 09:17: POC Whole Blood Glucose 217H 02/13/20 11:39: POC Whole Blood Glucose 231H 02/13/20 12:12: Arterial Blood pH 7.398, Arterial Blood Partial Pressure CO2 51.5H, Arterial Blood Partial Pressure O2 65.2L, Arterial Blood HCO3 31.0H, Arterial Blood Oxyg en Saturation 92.7L, Arterial Blood Base Excess 5.3H, Bryan Test Positive 02/13/20 17:00: White Blood Count 12.0H, Red Blood Count 3.39L, Hemoglobin 9.8L, Hematocrit 31.2L, Mean Corpuscular Volume 92, Mean Corpuscular Hemoglobin 29.0, Mean Corpuscular Hemoglobin Concent 31.5L, Red Cell Distribution Width 16.0H, Platelet Count 337, Mean Platelet Volume 6.2L, Neutrophils (%) (Auto) 83.8H, Lymphocytes (%) (Auto) 9.3L, Monocytes (%) (Auto) 5.3, Eosinophils (%) (Auto) 0.7, Basophils (%) (Auto) 1.0, Creatine Kinase MB 0.5, Troponin I 0.037 02/13/20 23:31: POC Whole Blood Glucose 292H 02/14/20 04:05: White Blood Count 8.7, Red Blood Count 3.32L, Hemoglobin 9.9L, Hematocrit 32.4L, Mean Corpuscular Volume 98, Mean Corpuscular Hemoglobin 29.7, Mean Corpuscular Hemoglobin Concent 30.5L, Red Cell Distribution Width 16.0H, Platelet Count 348, Mean Platelet Volume 6.3L, Neutrophils (%) (Auto) 71.2, Lymphocytes (%) (Auto) 16.7L, Monocytes (%) (Auto) 8.9, Eosinophils (%) (Auto) 1.9, Basophils (%) (Auto) 1.4, Prothrombin Time 11.7H, Prothromb Time International Ratio 1.1, Activated Partial Thromboplast Time 37H, Sodium Level 131L, Potassium Level 4.4, Chloride Level 98, Carbon Dioxide Level 23, Anion Gap 10, Blood Urea Nitrogen 14, Creatinine 1.2, Estimat Glomerular Filtration Rate 55.6, Glucose Level 169H, Calcium Level 7.7L Height (Feet): 5 Height (Inches): 1.00 Weight (Pounds): 168 Objective PHYSICAL EXAMINATION: GENERAL: Alert, awake, and oriented. LUNGS: Decreased breath sounds bilaterally. HEART: S1 and S2 regular. ABDOMEN: Obese. EXTREMITIES: No cyanosis. No clubbing. NEURO: No changes. Assessment/Plan Assessment/Plan: (1) Cervical DDD (2) Cervical Spondylosis Patient to be continued on [place], Neurontin, Robaxin and Lidocaine patch. D/w Dr. Landa and he concurred. Monster Corey Feb 14, 2020 08:32
[2020-02-14] MEDS: Ipratropium 0.02% Inh Soln 2.5ml UD HHN PRN ×3 (08:38→22:56)
[2020-02-14] MEDS: Pantoprazole Inj IVP SCH ×2 (09:04→20:27)
[2020-02-14] MEDS: guaiFENesin /DM 10ml syrup ORAL PRN ×3 (09:04→23:34)
[2020-02-14] MEDS: Imdur 30mg tab ORAL SCH (09:08)
[2020-02-14] MEDS: Aspirin Baby 81mg ORAL SCH (09:09)
[2020-02-14] MEDS: HYDROcodone/Acetamin 10/325 tab ORAL PRN (09:11)
[2020-02-14] MEDS: Enoxaparin 80mg Inj SUBQ SCH ×2 (09:12→20:29)
[2020-02-14] MEDS: Methocarbamol 500mg tab ORAL PRN ×2 (09:33→16:59)
[2020-02-14] MEDS: Levemir Flexpen SUBQ SCH ×2 (09:36→18:10)
--- NOTE | 2020-02-14 09:41 | Critical Care Progress Note ---
Assessment/Plan Assessment/Plan IMPRESSION acute respiratory failure leukocytosis sepsis ARF toxic met encephalopathy COPD DM poor control cavitary lesion negative AFB groundglass infiltrates NSTEMI severe PCM hypertension left shoulder pain bacteremia MRSA PLAN now in ICU antibiotics per ID hold bronchoscopy and biopsy of RUL if patient agrees cardiology follow up nitro PRN titrate BP meds defer PORFIRIO ? needed; will discuss medications/laboratory data/nursing notes/ICU care reviewed in detail note reviewed and edited care discussed with RN and RT ICU time spent >40 minutes Critical Care - Subjective Interval Events: deteriorated last night oxygenation better Condition: critical EKG Rhythm: Sinus Rhythm I&O: Intake and Output 02/13/20 02/14/20 19:00 07:00 Intake Total 32.54 ml 1027.46 ml Output Total 1400 ml 830 ml Balance -1367.46 ml 197.46 ml Intake Oral 840 ml IV Total 32.54 ml 187.46 ml Output Urine Total 1400 ml 830 ml # Bowel Movements 1 Critical Care - Objective Last 24 Hour Vital Signs Date Time Temp Pulse Resp B/P (MAP) Pulse Ox O2 Delivery O2 Flow Rate FiO2 02/14/20 09:10 100 153/80 02/14/20 09:09 100 153/80 02/14/20 09:08 153/80 02/14/20 08:38 102 21 100 Nasal Cannula 2.0 28 100 22 100 02/14/20 07:46 97 Nasal Cannula 1.0 24 02/14/20 07:00 80 14 112/54 (73) 100 02/14/20 06:00 87 15 126/62 (83) 100 02/14/20 05:00 94 16 154/87 (109) 100 02/14/20 04:00 98.8 89 20 151/70 (97) 100 02/14/20 04:00 Nasal Cannula 2.0 02/14/20 04:00 87 02/14/20 03:00 82 20 115/64 (81) 100 02/14/20 02:00 78 28 137/71 (93) 100 02/14/20 01:00 73 13 100/54 (69) 100 02/14/20 00:00 Nasal Cannula 2.0 02/14/20 00:00 85 02/14/20 00:00 98.5 84 18 143/68 (93) 100 02/13/20 23:00 85 20 135/83 (100) 100 02/13/20 22:00 97 22 134/74 (94) 100 02/13/20 21:10 96 Nasal Cannula 1.0 24 02/13/20 21:00 108 23 151/67 (95) 100 02/13/20 20:57 106 140/66 02/13/20 20:00 Nasal Cannula 2.0 02/13/20 20:00 98.8 107 27 118/75 (89) 100 02/13/20 20:00 107 02/13/20 19:00 105 24 150/67 (94) 100 02/13/20 18:00 107 23 144/75 (98) 100 02/13/20 17:30 Nasal Cannula 2.0 02/13/20 17:00 99.6 112 25 158/73 (101) 100 02/13/20 14:58 101.8 02/13/20 14:31 99.0 02/13/20 14:06 118 21 99 Nasal Cannula 2.0 28 115 22 96 02/13/20 14:01 180/93 02/13/20 13:56 99.5 108 24 180/93 (122) 98 02/13/20 12:15 96 Nasal Cannula 2.0 28 02/13/20 12:00 98.1 117 22 155/89 (111) 99 Labs: Laboratory Tests 02/13/20 11:39: POC Whole Blood Glucose 231H 02/13/20 12:12: Arterial Blood pH 7.398, Arterial Blood Partial Pressure CO2 51.5H, Arterial Blood Partial Pressure O2 65.2L, Arterial Blood HCO3 31.0H, Arterial Blood Oxygen Saturation 92.7L, Arterial Blood Base Excess 5.3H, Bryan Test Positive 02/13/20 17:00: White Blood Count 12.0H, Red Blood Count 3.39L, Hemoglobin 9.8L, Hematocrit 31.2L, Mean Corpuscular Volume 92, Mean Corpuscular Hemoglobin 29.0, Mean Corpuscular Hemoglobin Concent 31.5L, Red Cell Distribution Width 16.0H, Platelet Count 337, Mean Platelet Volume 6.2L, Neutrophils (%) (Auto) 83.8H, Lymphocytes (%) (Auto) 9.3L, Monocytes (%) (Auto) 5.3, Eosinophils (%) (Auto) 0.7, Basophils (%) (Auto) 1.0, Creatine Kinase MB 0.5, Troponin I 0.037 02/13/20 23:31: POC Whole Blood Glucose 292H 02/14/20 04:05: White Blood Count 8.7, Red Blood Count 3.32L, Hemoglobin 9.9L, Hematocrit 32.4L, Mean Corpuscular Volume 98, Mean Corpuscular Hemoglobin 29.7, Mean Corpuscular Hemoglobin Concent 30.5L, Red Cell Distribution Width 16.0H, Platelet Count 348, Mean Platelet Volume 6.3L, Neutrophils (%) (Auto) 71.2, Lymphocytes (%) (Auto) 16.7L, Monocytes (%) (Auto) 8.9, Eosinophils (%) (Auto) 1.9, Basophils (%) (Auto) 1.4, Prothrombin Time 11.7H, Prothromb Time International Ratio 1.1, Activated Partial Thromboplast Time 37H, Sodium Level 131L, Potassium Level 4.4, Chloride Level 98, Carbon Dioxide Level 23, Anion Gap 10, Blood Urea Nitrogen 14, Creatinine 1.2, Estimat Glomerular Filtration Rate 55.6, Glucose Level 169H, Calcium Level 7.7L, Troponin I [Pending] 02/14/20 09:29: POC Whole Blood Glucose 169H Objective: WDWN ill appearing reduced breath sounds bilaterally with scattered rhonchi [id number] without MRG NABS nontender no HSM no CC leg edema nonfocal Micro: Microbiology Date/Time Source Procedure Growth Status 02/13/20 16:30 Indwelling Cath Urine Culture - Preliminary NO GROWTH Resulted Accucheck: 169 Germán Feliz MD Feb 14, 2020 09:41
--- NOTE | 2020-02-14 09:50 | NUR ---
RADIOLOGY: PCXR COMPLETED 0930HRS. NF
--- NOTE | 2020-02-14 10:00 | NUR ---
NURSE NOTES: Patient ate breakfast, took scheduled medication along with PRNs and had BM. Patient resting at this time.
--- NOTE | 2020-02-14 11:48 | Infectious Diseases Prog Note ---
Assessment/Plan Assessment/Plan antibiotics : vancomycin iv A 1. cavitary pneumonia sputum AFB negative x 3 2. MRSA sepsis r/o endocarditis 3. diabetes mellitus 4. hypertension 5. COPD 6. renal failure improving 7. aortic stenosis 8. + blood culture with bacillus likely contaminated P 1. continue iv vancomcyin 29 more days 2. zosyn started 3. will follow up cultures 4. bronchoscopy with biopsy planned Subjective Constitutional: Denies: fever, chills Respiratory: Reports: shortness of breath, dry cough Gastrointestinal/Abdominal: Denies: nausea, vomiting, diarrhea Musculoskeletal: Reports: pain Allergies: Coded Allergies: No Known Allergies (Unverified , 07/30/15) Objective Last 24 Hour Vital Signs Date Time Temp Pulse Resp B/P (MAP) Pulse Ox O2 Delivery O2 Flow Rate FiO2 02/14/20 10:00 87 19 135/69 (91) 100 02/14/20 09:10 100 153/80 02/14/20 09:09 100 153/80 02/14/20 09:08 153/80 02/14/20 09:00 102 19 166/95 (118) 100 02/14/20 08:38 102 21 100 Nasal Cannula 2.0 28 100 22 100 02/14/20 08:00 100 21 147/72 (97) 100 02/14/20 08:00 100 02/14/20 07:46 97 Nasal Cannula 1.0 24 02/14/20 07:00 80 14 112/54 (73) 100 02/14/20 06:00 87 15 126/62 (83) 100 02/14/20 05:00 94 16 154/87 (109) 100 02/14/20 04:00 98.8 89 20 151/70 (97) 100 02/14/20 04:00 Nasal Cannula 2.0 02/14/20 04:00 87 02/14/20 03:00 82 20 115/64 (81) 100 02/14/20 02:00 78 28 137/71 (93) 100 02/14/20 01:00 73 13 100/54 (69) 100 02/14/20 00:00 Nasal Cannula 2.0 02/14/20 00:00 85 02/14/20 00:00 98.5 84 18 143/68 (93) 100 02/13/20 23:00 85 20 135/83 (100) 100 02/13/20 22:00 97 22 134/74 (94) 100 02/13/20 21:10 96 Nasal Cannula 1.0 24 02/13/20 21:00 108 23 151/67 (95) 100 02/13/20 20:57 106 140/66 02/13/20 20:00 Nasal Cannula 2.0 02/13/20 20:00 98.8 107 27 118/75 (89) 100 02/13/20 20:00 107 02/13/20 19:00 105 24 150/67 (94) 100 02/13/20 18:00 107 23 144/75 (98) 100 02/13/20 17:30 Nasal Cannula 2.0 02/13/20 17:00 99.6 112 25 158/73 (101) 100 02/13/20 14:58 101.8 02/13/20 14:31 99.0 02/13/20 14:06 118 21 99 Nasal Cannula 2.0 28 115 22 96 02/13/20 14:01 180/93 02/13/20 13:56 99.5 108 24 180/93 (122) 98 02/13/20 12:15 96 Nasal Cannula 2.0 28 02/13/20 12:00 98.1 117 22 155/89 (111) 99 Height (Feet): 5 Height (Inches): 1.00 Weight (Pounds): 168 Respiratory/Chest: lungs clear Cardiovascular: normal rate, regular rhythm, no gallop/murmur Abdomen: soft, non tender Extremities: other - + edema Microbiology Date/Time Source Procedure Growth Status 02/13/20 16:30 Indwelling Cath Urine Culture - Preliminary NO GROWTH Resulted Laboratory Tests Test 02/13/20 12:12 02/13/20 17:00 02/13/20 23:31 02/14/20 04:05 Arterial Blood pH 7.398 (7.350-7.450) Arterial Blood Partial Pressure CO2 51.5 mmHg (35.0-45.0) H Arterial Blood Partial Pressure O2 65.2 mmHg (75.0-100.0) L Arterial Blood HCO3 31.0 mmol/L (22.0-26.0) H Arterial Blood Oxygen Saturation 92.7 % (95-100) L Arterial Blood Base Excess 5.3 (-2-2) H Bryan Test Positive White Blood Count 12.0 K/UL (4.8-10.8) H 8.7 K/UL (4.8-10.8) Red Blood Count 3.39 M/UL (4.20-5.40) L 3.32 M/UL (4.20-5.40) L Hemoglobin 9.8 G/DL (12.0-16.0) L 9.9 G/DL (12.0-16.0) L Hematocrit 31.2 % (37.0-47.0) L 32.4 % (37.0-47.0) L Mean Corpuscular Volume 92 FL (80-99) 98 FL (80-99) Mean Corpuscular Hemoglobin 29.0 PG (27.0-31.0) 29.7 PG (27.0-31.0) Mean Corpuscular Hemoglobin Concent 31.5 G/DL (32.0-36.0) L 30.5 G/DL (32.0-36.0) L Red Cell Distribution Width 16.0 % (11.6-14.8) H 16.0 % (11.6-14.8) H Platelet Count 337 K/UL (150-450) 348 K/UL (150-450) Mean Platelet Volume 6.2 FL (6.5-10.1) L 6.3 FL (6.5-10.1) L Neutrophils (%) (Auto) 83.8 % (45.0-75.0) H 71.2 % (45.0-75.0) Lymphocytes (%) (Auto) 9.3 % (20.0-45.0) L 16.7 % (20.0-45.0) L Monocytes (%) (Auto) 5.3 % (1.0-10.0) 8.9 % (1.0-10.0) Eosinophils (%) (Auto) 0.7 % (0.0-3.0) 1.9 % (0.0-3.0) Basophils (%) (Auto) 1.0 % (0.0-2.0) 1.4 % (0.0-2.0) Creatine Kinase MB 0.5 NG/ML (0.0-3.6) Troponin I 0.037 ng/mL (0.000-0.056) 0.024 ng/mL (0.000-0.056) POC Whole Blood Glucose 292 MG/DL (74-106) H Prothrombin Time 11.7 SEC (9.30-11.50) H Prothromb Time International Ratio 1.1 (0.9-1.1) Activated Partial Thromboplast Time 37 SEC (23-33) H Sodium Level 131 MMOL/L (136-145) L Potassium Level 4.4 MMOL/L (3.5-5.1) Chloride Level 98 MMOL/L (98-107) Carbon Dioxide Level 23 MMOL/L (21-32) Anion Gap 10 mmol/L (5-15) Blood Urea Nitrogen 14 mg/dL (7-18) Creatinine 1.2 MG/DL (0.55-1.30) Estimat Glomerular Filtration Rate 55.6 mL/min (>60) Glucose Level 169 MG/DL (74-106) H Calcium Level 7.7 MG/DL (8.5-10.1) L Test 02/14/20 09:29 POC Whole Blood Glucose 169 MG/DL (74-106) H Current Medications Medications (Trade) Dose Ordered Sig/Ivana Route PRN Reason Start Time Stop Time Status Last Admin Dose Admin Acetaminophen (Tylenol) 650 mg Q6H PRN ORAL MILD PAIN, FEVER 01/28/20 22:45 02/27/20 22:44 02/13/20 14:01 Acetaminophen/ Hydrocodone Bitart ([place] 10/325) 1 tab Q4H PRN ORAL Moderate Pain (Pain Scale 4-6) 02/11/20 09:45 02/18/20 09:44 02/14/20 09:11 Amlodipine Besylate (Norvasc) 10 mg DAILY ORAL 02/01/20 09:00 03/02/20 08:59 02/14/20 09:10 Aspirin (ASA) 81 mg DAILY ORAL 02/14/20 09:00 03/30/20 08:59 02/14/20 09:09 Clonidine HCl (Catapres Tab) 0.1 mg Q4H PRN ORAL SBP > 150mmHg 02/06/20 07:00 05/06/20 06:59 02/13/20 14:01 Dextrose (Dextrose 50%) 25 ml Q30M PRN IV Hypoglycemia 01/28/20 22:45 1/30/21 22:44 Dextrose (Dextrose 50%) 50 ml Q30M PRN IV Hypoglycemia 01/28/20 22:45 04/27/20 22:44 Enoxaparin Sodium (Lovenox) 80 mg Q12HR SUBQ 02/13/20 18:54 05/13/20 18:53 02/14/20 09:12 Epoetin Haseeb (Epoetin Haseeb-EPBX(NON ESRD)) 8,000 unit WED-WED-WED SUBQ 02/05/20 21:00 05/05/20 20:59 02/12/20 21:23 Furosemide (Lasix) 40 mg DAILY IV 02/13/20 13:00 03/14/20 13:59 02/14/20 09:08 Gabapentin (Neurontin) 300 mg THREE TIMES A DAY ORAL 02/11/20 09:30 03/12/20 09:29 02/14/20 09:10 Guaifenesin/ Dextromethorphan (Robitussin DM Syrup) 15 ml Q4H PRN ORAL For Cough 02/12/20 16:53 05/12/20 16:52 02/14/20 09:04 Insulin Aspart (NovoLOG) Q6HR SUBQ 01/29/20 00:00 04/28/20 00:00 02/14/20 06:03 Insulin Detemir (Levemir) 10 units BID SUBQ 02/08/20 18:00 05/04/20 17:59 02/14/20 09:36 Ipratropium [place] (Atrovent) 500 mcg Q4H PRN HHN Shortness of Breath 02/13/20 12:45 02/18/20 12:44 02/14/20 08:38 Isosorbide Mononitrate (Imdur) 30 mg DAILY ORAL 02/02/20 09:00 03/03/20 08:59 02/14/20 09:08 Lidocaine (Lidoderm 5% PATCH) 1 patch DAILY TDERMAL 02/11/20 09:30 05/11/20 09:29 02/14/20 09:12 Methocarbamol (Robaxin) 500 mg Q8H PRN ORAL muscle spasm 02/11/20 09:30 03/12/20 09:29 02/14/20 09:33 Metoprolol Tartrate (Lopressor) 25 mg Q12HR ORAL 02/04/20 21:00 05/04/20 20:59 02/14/20 09:09 Nitroglycerin (Ntg) 0.4 mg Q5M PRN SL Prn Chest Pain 02/01/20 08:00 03/02/20 07:59 02/03/20 06:17 Ondansetron HCl (Zofran) 4 mg Q6H PRN IVP Nausea & Vomiting 01/28/20 22:45 02/27/20 22:44 02/01/20 18:10 Pantoprazole (Protonix) 40 mg EVERY 12 HOURS IVP 02/01/20 22:00 03/02/20 21:59 02/14/20 09:04 Piperacillin Sod/ Tazobactam Sod 3.375 gm/Sodium Chloride 110 ml @ 27.5 mls/hr Q8HR@0100,0900,1700 IVPB 02/13/20 17:00 02/20/20 16:59 02/14/20 09:09 Vancomycin HCl 250 ml @ 166.667 mls/hr Q24H IVPB 02/13/20 14:00 02/18/20 13:59 02/13/20 14:02 Vancomycin HCl ([facility] to dose) 1 ea DAILY PRN MISC Per rx protocol 02/13/20 11:30 03/14/20 11:29 Messi Lopez MD Feb 14, 2020 11:48
--- NOTE | 2020-02-14 12:35 | NUR ---
TRANSFER TO FLOOR: Patient transferred to telemetry, per Dr. Feliz. Report given to Albert Rojas RN. Belongings and medications transfered with patient. Daughter informed of transfer. Patient stable. No s/sx of distress. Call light given, side rails upx2, bed alarm on, belongings within reach.
[2020-02-14] MEDS: Vancomycin 1.25gm/250ml Premix IVPB SCH (15:57)
--- NOTE | 2020-02-14 16:04 | Diagnostic Imaging Report ---
Indication: Low extremity pain/swelling Technique: Grayscale and duplex images of the bilateral lower extremity veins Comparison: 01/29/2020 Findings: Bilaterally, grayscale and duplex images demonstrate no evidence of intraluminal thrombus. Normal phasic Doppler waveforms, demonstrating normal augmentation response. Impression: Negative for evidence of lower extremity deep venous thrombosis bilaterally
--- NOTE | 2020-02-14 17:23 | NUR ---
CASE MANAGEMENT:REVIEW 02/14/20 SI: ACUTE RESPIRATORY FAILURE. SEPSIS D/T MRSA BACTEREMIA. NSTEMI 98.8 100 21 147/72 100% ON 2L/NC H/H-9.9/32.4 IS: IV ZOSYN Q8HRS iv vancomycin q24 iv lasix qd asa po qd lovenox sq q12 LOPRESSOR PO Q12 IMDUR PO QD IV PROTONIX Q12 NORVASC PO QD : TRANSFERRED FROM ICU TO TELEMETRY STATUS DCP: FROM HOME
--- NOTE | 2020-02-14 19:05 | NUR ---
NURSE HAND-OFF REPORT: Important Events on Shift: Pt was transferred from ICU to tele Patient Status: no acute distress Diet: CCHO med Pending Orders: Pending Results/Labs: Pending MD notification: Latest Vital Signs: Temperature 98.4 , Pulse 92 , B/P 107 /71 , Respiratory Rate 22 , O2 SAT 96 , Nasal Cannula, O2 Flow Rate 1.0 . Vital Sign Comment: EKG Rhythm: Sinus Rhythm Rhythm change?: N MD Notified?: - MD Response: Latest Pineda Fall Score: 35 Fall Risk: Medium Risk Safety Measures: Call light Within Reach, Bed Alarm Zone 1, Side Rails Side Rails x3, Bed position Low and Locked. Fall Precautions: Yellow Socks Yellow Gown Door Sign Patient Fall Education Report given to . Addendum: 02/14/20 at 1932 by Veronica Johnson RN Report given to JO-ANN Brown.
--- NOTE | 2020-02-14 19:10 | NUR ---
NURSE NOTES: Pt received from Veronica BUS[facility]. Pt is resting in high fowlers in bed. No acute distress noted, but pt is SOB and wheezing on 3L NC. Patient is saturating 94%. No pain is reported at this time. Pt is A/Ox3 -4 able to make need known.Patient is also requesting anxity medication at this time but does not have ordered. Will contact [facility]. Patient is requesting a breathing treatment at this time. Pt has RFA 22G patent flushed and locked. No bleeding or erythema noted. FC draing well to gravity. Bed is locked in lowest position and call light is within reach. Will continue to monitor.
--- NOTE | 2020-02-14 19:57 | NUR ---
NURSE NOTES: Spoke to Dr. Feliz regarding patient request for anxiety medication. Doctor ordered Ativan 1mg PO PRN for anxiety Q4h. Noted and and carried out.
[2020-02-14] MEDS: Epoetin Alfa-EPBX (NON ESRD)4000 units/ml vial SUBQ SCH (20:27)
[2020-02-14] MEDS: LORazepam 1mg tab ORAL PRN (20:28)
--- NOTE | 2020-02-14 20:41 | General Progress Note ---
Subjective Allergies: Coded Allergies: No Known Allergies (Unverified , 07/30/15) Subjective Above noted patient seen early am doing better (+) BM with laxative Objective Last 24 Hour Vital Signs Date Time Temp Pulse Resp B/P (MAP) Pulse Ox O2 Delivery O2 Flow Rate FiO2 02/14/20 20:28 100 20 156/87 96 02/14/20 20:27 100 156/87 02/14/20 18:53 96 Nasal Cannula 1.0 24 02/14/20 18:52 92 22 94 Nasal Cannula 1.0 24 02/14/20 16:11 93 21 96 Nasal Cannula 3.0 32 92 22 94 02/14/20 16:00 89 02/14/20 16:00 98.4 90 20 107/71 (83) 93 02/14/20 12:00 97.8 79 17 129/68 (88) 98 02/14/20 12:00 83 02/14/20 11:20 81 02/14/20 11:00 84 136/77 (96) 100 02/14/20 10:00 87 19 135/69 (91) 100 02/14/20 09:10 100 153/80 02/14/20 09:09 100 153/80 02/14/20 09:08 153/80 02/14/20 09:00 102 19 166/95 (118) 100 02/14/20 08:38 102 21 100 Nasal Cannula 2.0 28 100 22 100 02/14/20 08:00 100 21 147/72 (97) 100 02/14/20 08:00 100 02/14/20 07:46 97 Nasal Cannula 1.0 24 02/14/20 07:00 80 14 112/54 (73) 100 02/14/20 06:00 87 15 126/62 (83) 100 02/14/20 05:00 94 16 154/87 (109) 100 02/14/20 04:00 98.8 89 20 151/70 (97) 100 02/14/20 04:00 Nasal Cannula 2.0 02/14/20 04:00 87 02/14/20 03:00 82 20 115/64 (81) 100 02/14/20 02:00 78 28 137/71 (93) 100 02/14/20 01:00 73 13 100/54 (69) 100 02/14/20 00:00 Nasal Cannula 2.0 02/14/20 00:00 85 02/14/20 00:00 98.5 84 18 143/68 (93) 100 02/13/20 23:00 85 20 135/83 (100) 100 02/13/20 22:00 97 22 134/74 (94) 100 02/13/20 21:10 96 Nasal Cannula 1.0 24 02/13/20 21:00 108 23 151/67 (95) 100 02/13/20 20:57 106 140/66 Intake and Output 02/13/20 02/14/20 19:00 07:00 Intake Total 32.54 ml 1027.46 ml Output Total 1400 ml 830 ml Balance -1367.46 ml 197.46 ml Intake Oral 840 ml IV Total 32.54 ml 187.46 ml Output Urine Total 1400 ml 830 ml # Bowel Movements 1 Laboratory Tests 02/13/20 23:31: POC Whole Blood Glucose 292H 02/14/20 04:05: White Blood Count 8.7, Red Blood Count 3.32L, Hemoglobin 9.9L, Hematocrit 32.4L, Mean Corpuscular Volume 98, Mean Corpuscular Hemoglobin 29.7, Mean Corpuscular Hemoglobin Concent 30.5L, Red Cell Distribution Width 16.0H, Platelet Count 348, Mean Platelet Volume 6.3L, Neutrophils (%) (Auto) 71.2, Lymphocytes (%) (Auto) 16.7L, Monocytes (%) (Auto) 8.9, Eosinophils (%) (Auto) 1.9, Basophils (%) (Auto) 1.4, Prothrombin Time 11.7H, Prothromb Time International Ratio 1.1, Activated Partial Thromboplast Time 37H, Sodium Level 131L, Potassium Level 4.4, Chloride Level 98, Carbon Dioxide Level 23, Anion Gap 10, Blood Urea Nitrogen 14, Creatinine 1.2, Estimat Glomerular Filtration Rate 55.6, Glucose Level 169H, Calcium Level 7.7L, Troponin I 0.024 02/14/20 05:46: POC Whole Blood Glucose 187H 02/14/20 09:29: POC Whole Blood Glucose 169H 02/14/20 11:34: POC Whole Blood Glucose 153H 02/14/20 18:00: POC Whole Blood Glucose [Pending] Height (Feet): 5 Height (Inches): 1.00 Weight (Pounds): 168 Objective WDWN NCAT supple CTA RR Abd soft ND mild edema Assessment/Plan Assessment/Plan: Assessment - hepatitis C with nodular liver, PCR (+) - constipation - resolved - Swallowing Sx - resolved - HTN - COPD - Lung mass - DM - PSVT Recommendations - po as tolerated - follow LFT - PPI - Elevate HOB - outpatient HCV Rx - laxative Feliberto Pérez MD Feb 14, 2020 20:41
[2020-02-15] VITALS: BP 153/80
--- NOTE | 2020-02-15 00:16 | NUR ---
NURSE NOTES: Notified Dr. Feliz of patient having hematuria in urine. Will continue to monitor.
[2020-02-15] MEDS: NovoLOG Insulin Flexpen SUBQ SCH ×4 (00:23→18:05)
[2020-02-15] MEDS: Zosyn 3.375gm q8h **Extended infusion IVPB SCH ×6 (01:59→17:54)
[2020-02-15 04:00] VITALS: BP 147/78
[2020-02-15] MEDS: Ipratropium 0.02% Inh Soln 2.5ml UD HHN PRN ×2 (05:32→15:32)
--- NOTE | 2020-02-15 07:00 | NUR ---
NURSE HAND-OFF REPORT: Important Events on Shift:Notified Dr. Feliz of patient having hematuria in urine. Patient Status: No acute distress Diet: CCHO Pending Orders: Pending Results/Labs: Pending MD notification: Latest Vital Signs: Temperature 98.9 , Pulse 84 , B/P 147 /78 , Respiratory Rate 20 , O2 SAT 95 , Nasal Cannula, O2 Flow Rate 2.0 . Vital Sign Comment: EKG Rhythm: Sinus Rhythm Rhythm change?: N MD Notified?: - MD Response: Latest Pineda Fall Score: 35 Fall Risk: Medium Risk Safety Measures: Call light Within Reach, Bed Alarm Zone 1, Side Rails Side Rails x3, Bed position Low and Locked. Fall Precautions: Yellow Socks Yellow Gown Door Sign Patient Fall Education Report given to JOSEPH BUSCH.
--- NOTE | 2020-02-15 07:01 | NUR ---
NURSE NOTES: Received patient in bed awake. IV line intact. FC intact, draining blood tinged urine. O2 via NC at 2LPM in place, no acute distress. HOB elevated. Bed locked in low position. Call light within reach. Will continue plan of care.
[2020-02-15 08:00] VITALS: BP 149/81
--- NOTE | 2020-02-15 08:37 | General Progress Note ---
Subjective Date patient seen: Feb 15, 2020 Time patient seen: 07:15 - am Allergies: Coded Allergies: No Known Allergies (Unverified , 07/30/15) Subjective HISTORY OF PRESENT ILLNESS: This is a 59-year-old female who is being seen on the tele floor of [facility]. Patient is in bed and showing no signs of pain or distress. Pain has been tolerated on the [place] 4 doses in the last 24hrs no new complaints at this time. REVIEW OF SYSTEMS: Denies rash, fever, chills, sweating, dizziness, drowsiness, sore throat, or change in her weight. No nausea, vomiting, diarrhea, blood in the stool or urine. No dysuria. Objective Last 24 Hour Vital Signs Date Time Temp Pulse Resp B/P (MAP) Pulse Ox O2 Delivery O2 Flow Rate FiO2 02/15/20 08:00 97.7 119 20 149/81 (103) 99 02/15/20 05:37 104 22 97 Nasal Cannula 2.0 28 102 22 96 02/15/20 04:22 84 02/15/20 04:00 98.9 99 20 147/78 (101) 95 02/15/20 00:00 93 02/15/20 00:00 99.1 96 24 153/80 (104) 96 02/14/20 22:54 93 21 96 Venturi Mask 10.0 50 95 24 95 02/14/20 22:36 161/83 02/14/20 21:00 Nasal Cannula 2.0 02/14/20 20:58 93 22 145/72 94 02/14/20 20:28 100 20 156/87 96 02/14/20 20:27 100 156/87 02/14/20 20:00 98.1 100 20 156/87 (110) 96 02/14/20 20:00 97 02/14/20 18:53 96 Nasal Cannula 1.0 24 02/14/20 18:52 92 22 94 Nasal Cannula 1.0 24 02/14/20 16:11 93 21 96 Nasal Cannula 3.0 32 92 22 94 02/14/20 16:00 89 02/14/20 16:00 98.4 90 20 107/71 (83) 93 02/14/20 12:00 97.8 79 17 129/68 (88) 98 02/14/20 12:00 83 02/14/20 11:20 81 11/18/20 11:00 84 136/77 (96) 100 02/14/20 10:00 87 19 135/69 (91) 100 02/14/20 09:10 100 153/80 02/14/20 09:09 100 153/80 02/14/20 09:08 153/80 02/14/20 09:00 102 19 166/95 (118) 100 02/14/20 08:38 102 21 100 Nasal Cannula 2.0 28 100 22 100 Intake and Output 02/14/20 02/15/20 19:00 07:00 Intake Total 820.5 ml 60 ml Output Total 1950 ml 1150 ml Balance -1129.5 ml -1090 ml Intake Oral 738 ml 60 ml IV Total 82.5 ml Output Urine Total 1950 ml 1150 ml # Voids 1 Laboratory Tests 02/14/20 09:29: POC Whole Blood Glucose 169H 02/14/20 11:34: POC Whole Blood Glucose 153H 02/14/20 18:00: POC Whole Blood Glucose [Pending] 02/14/20 23:37: POC Whole Blood Glucose 183H 02/15/20 06:18: POC Whole Blood Glucose 137H Height (Feet): 5 Height (Inches): 1.00 Weight (Pounds): 168 Objective PHYSICAL EXAMINATION: GENERAL: Alert, awake, and oriented. LUNGS: Decreased breath sounds bilaterally. HEART: S1 and S2 regular. ABDOMEN: Obese. EXTREMITIES: No cyanosis. No clubbing. NEURO: No changes. Assessment/Plan Assessment/Plan: (1) Cervical DDD (2) Cervical Spondylosis Patient to be continued on [place], Neurontin, Robaxin and Lidocaine patch. D/w Dr. Landa and he concurred. Monster Corey Feb 15, 2020 08:37
[2020-02-15] MEDS: Aspirin Baby 81mg ORAL SCH (08:40)
[2020-02-15] MEDS: Imdur 30mg tab ORAL SCH (08:40)
[2020-02-15] MEDS: Pantoprazole Inj IVP SCH ×2 (08:41→21:18)
[2020-02-15] MEDS: LORazepam 1mg tab ORAL PRN ×2 (08:41→14:29)
[2020-02-15] MEDS: Enoxaparin 80mg Inj SUBQ SCH ×2 (08:43→21:00)
[2020-02-15] MEDS: Levemir Flexpen SUBQ SCH ×2 (08:44→18:06)
--- NOTE | 2020-02-15 09:41 | General Progress Note ---
Subjective Allergies: Coded Allergies: No Known Allergies (Unverified , 07/30/15) Subjective Above noted no abd pain some shortness of breath poor appetite Objective Last 24 Hour Vital Signs Date Time Temp Pulse Resp B/P (MAP) Pulse Ox O2 Delivery O2 Flow Rate FiO2 02/15/20 08:41 119 20 149/81 99 02/15/20 08:41 119 149/81 02/15/20 08:40 119 149/81 02/15/20 08:40 149/81 02/15/20 08:00 97.7 119 20 149/81 (103) 99 02/15/20 05:37 104 22 97 Nasal Cannula 2.0 28 102 22 96 02/15/20 04:22 84 02/15/20 04:00 98.9 99 20 147/78 (101) 95 02/15/20 00:00 93 02/15/20 00:00 99.1 96 24 153/80 (104) 96 02/14/20 22:54 93 21 96 Venturi Mask 10.0 50 95 24 95 02/14/20 22:36 161/83 02/14/20 21:00 Nasal Cannula 2.0 02/14/20 20:58 93 22 145/72 94 02/14/20 20:28 100 20 156/87 96 02/14/20 20:27 100 156/87 02/14/20 20:00 98.1 100 20 156/87 (110) 96 02/14/20 20:00 97 02/14/20 18:53 96 Nasal Cannula 1.0 24 02/14/20 18:52 92 22 94 Nasal Cannula 1.0 24 02/14/20 16:11 93 21 96 Nasal Cannula 3.0 32 92 22 94 02/14/20 16:00 89 02/14/20 16:00 98.4 90 20 107/71 (83) 93 02/14/20 12:00 97.8 79 17 129/68 (88) 98 02/14/20 12:00 83 02/14/20 11:20 81 02/14/20 11:00 84 136/77 (96) 100 02/14/20 10:00 87 19 135/69 (91) 100 Intake and Output 02/14/20 02/15/20 19:00 07:00 Intake Total 820.5 ml 60 ml Output Total 1950 ml 1150 ml Balance -1129.5 ml -1090 ml Intake Oral 738 ml 60 ml IV Total 82.5 ml Output Urine Total 1950 ml 1150 ml # Voids 1 Laboratory Tests 02/14/20 11:34: POC Whole Blood Glucose 153H 02/14/20 18:00: POC Whole Blood Glucose [Pending] 02/14/20 23:37: POC Whole Blood Glucose 183H 02/15/20 06:18: POC Whole Blood Glucose 137H Height (Feet): 5 Height (Inches): 1.00 Weight (Pounds): 168 Objective WDWN NCAT supple CTA RR Abd soft ND mild edema Assessment/Plan Assessment/Plan: Assessment - hepatitis C with nodular liver, PCR (+) - constipation - resolved - Swallowing Sx - resolved - HTN - COPD - Lung mass - DM - PSVT - anemia Recommendations - po as tolerated - follow LFT - PPI - Elevate HOB - outpatient HCV Rx - laxative - Outpatient colonoscopy once recovered from current illness Feliberto Pérez MD Feb 15, 2020 09:40
--- NOTE | 2020-02-15 10:42 | Infectious Diseases Prog Note ---
Assessment/Plan Assessment/Plan A 1. cavitary pneumonia sputum AFB negative x 3 2. staph aureus (MRSA) sepsis r/o endocarditis 3. diabetes mellitus 4. hypertension 5. COPD 6. renal failure 7. aortic stenosis 8. Anemia 9. CHF, EF=40-45% P 1. Continue IV Vancomycin & Zosyn 2. will f/u cultures Subjective ROS Limited/Unobtainable: Yes Constitutional: Denies: fever Allergies: Coded Allergies: No Known Allergies (Unverified , 07/30/15) Objective Last 24 Hour Vital Signs Date Time Temp Pulse Resp B/P (MAP) Pulse Ox O2 Delivery O2 Flow Rate FiO2 02/15/20 08:41 119 20 149/81 99 02/15/20 08:41 119 149/81 02/15/20 08:40 119 149/81 02/15/20 08:40 149/81 02/15/20 08:00 93 02/15/20 08:00 97.7 119 20 149/81 (103) 99 02/15/20 05:37 104 22 97 Nasal Cannula 2.0 28 102 22 96 02/15/20 04:22 84 02/15/20 04:00 98.9 99 20 147/78 (101) 95 02/15/20 00:00 93 02/15/20 00:00 99.1 96 24 153/80 (104) 96 02/14/20 22:54 93 21 96 Venturi Mask 10.0 50 95 24 95 02/14/20 22:36 161/83 02/14/20 21:00 Nasal Cannula 2.0 02/14/20 20:58 93 22 145/72 94 02/14/20 20:28 100 20 156/87 96 02/14/20 20:27 100 156/87 02/14/20 20:00 98.1 100 20 156/87 (110) 96 02/14/20 20:00 97 02/14/20 18:53 96 Nasal Cannula 1.0 24 02/14/20 18:52 92 22 94 Nasal Cannula 1.0 24 02/14/20 16:11 93 21 96 Nasal Cannula 3.0 32 92 22 94 02/14/20 16:00 89 02/14/20 16:00 98.4 90 20 107/71 (83) 93 02/14/20 12:00 97.8 79 17 129/68 (88) 98 02/14/20 12:00 83 02/14/20 11:20 81 02/14/20 11:00 84 136/77 (96) 100 Height (Feet): 5 Height (Inches): 1.00 Weight (Pounds): 168 HEENT: mucous membranes moist Respiratory/Chest: lungs clear, other - oxygen by nasal cannula Cardiovascular: tachycardia Abdomen: soft, non tender Extremities: other - mild edema Neurologic/Psychiatric: other - sleeping Microbiology Date/Time Source Procedure Growth Status 02/14/20 02:00 Sputum Gram Stain Pending Resulted 02/14/20 02:00 Sputum Culture - Preliminary Staphylococcus Species Usual Respiratory Carrol Resulted 02/13/20 16:30 Indwelling Cath Urine Culture - Preliminary NO GROWTH Resulted Laboratory Tests Test 02/14/20 11:34 02/14/20 18:00 02/14/20 23:37 02/15/20 06:18 POC Whole Blood Glucose 153 MG/DL (74-106) H Pending 183 MG/DL (74-106) H 137 MG/DL (74-106) H Current Medications Medications (Trade) Dose Ordered Sig/Ivana Route PRN Reason Start Time Stop Time Status Last Admin Dose Admin Acetaminophen (Tylenol) 650 mg Q6H PRN ORAL MILD PAIN, FEVER 01/28/20 22:45 02/27/20 22:44 02/13/20 14:01 Acetaminophen/ Hydrocodone Bitart ([place] 10/325) 1 tab Q4H PRN ORAL Moderate Pain (Pain Scale 4-6) 02/15/20 09:45 02/22/20 09:44 Amlodipine Besylate (Norvasc) 10 mg DAILY ORAL 02/01/20 09:00 03/02/20 08:59 02/15/20 08:41 Aspirin (ASA) 81 mg DAILY ORAL 02/14/20 09:00 03/30/20 08:59 02/15/20 08:40 Clonidine HCl (Catapres Tab) 0.1 mg Q4H PRN ORAL SBP > 150mmHg 02/06/20 07:00 05/06/20 06:59 02/14/20 22:36 Dextrose (Dextrose 50%) 25 ml Q30M PRN IV Hypoglycemia 01/28/20 22:45 04/27/20 22:44 Dextrose (Dextrose 50%) 50 ml Q30M PRN IV Hypoglycemia 01/28/20 22:45 04/27/20 22:44 Enoxaparin Sodium (Lovenox) 80 mg Q12HR SUBQ 02/13/20 18:54 05/13/20 18:53 02/15/20 08:43 Epoetin Haseeb (Epoetin Haseeb-EPBX(NON ESRD)) 8,000 unit WED-WED-WED SUBQ 02/05/20 21:00 05/05/20 20:59 02/14/20 20:27 Furosemide (Lasix) 40 mg DAILY IV 02/13/20 13:00 03/14/20 13:59 02/15/20 08:40 Gabapentin (Neurontin) 300 mg THREE TIMES A DAY ORAL 02/11/20 09:30 03/12/20 09:29 02/15/20 08:40 Guaifenesin/ Dextromethorphan (Robitussin DM Syrup) 15 ml Q4H PRN ORAL For Cough 02/12/20 16:53 05/12/20 16:52 02/14/20 23:34 Insulin Aspart (NovoLOG) Q6HR SUBQ 01/29/20 00:00 04/28/20 00:00 02/15/20 00:23 Insulin Detemir (Levemir) 10 units BID SUBQ 02/08/20 18:00 05/04/20 17:59 02/15/20 08:44 Ipratropium [place] (Atrovent) 500 mcg Q4H PRN HHN Shortness of Breath 02/13/20 12:45 02/18/20 12:44 02/15/20 05:32 Isosorbide Mononitrate (Imdur) 30 mg DAILY ORAL 02/02/20 09:00 03/03/20 08:59 02/15/20 08:40 Lidocaine (Lidoderm 5% PATCH) 1 patch DAILY TDERMAL 02/11/20 09:30 05/11/20 09:29 02/15/20 08:42 Lorazepam (Ativan) 1 mg Q4H PRN ORAL For Anxiety 02/14/20 20:15 02/21/20 20:14 02/15/20 08:41 Methocarbamol (Robaxin) 500 mg Q8H PRN ORAL muscle spasm 02/11/20 09:30 03/12/20 09:29 02/14/20 16:59 Metoprolol Tartrate (Lopressor) 25 mg Q12HR ORAL 02/04/20 21:00 05/04/20 20:59 02/15/20 08:40 Nitroglycerin (Ntg) 0.4 mg Q5M PRN SL Prn Chest Pain 02/01/20 08:00 03/02/20 07:59 02/03/20 06:17 Ondansetron HCl (Zofran) 4 mg Q6H PRN IVP Nausea & Vomiting 01/28/20 22:45 02/27/20 22:44 02/01/20 18:10 Pantoprazole (Protonix) 40 mg EVERY 12 HOURS IVP 02/01/20 22:00 03/02/20 21:59 02/15/20 08:41 Piperacillin Sod/ Tazobactam Sod 3.375 gm/Sodium Chloride 110 ml @ 27.5 mls/hr Q8HR@0100,0900,1700 IVPB 02/13/20 17:00 02/20/20 16:59 02/15/20 08:39 Vancomycin HCl 250 ml @ 166.667 mls/hr Q24H IVPB 02/13/20 14:00 02/18/20 13:59 02/14/20 15:57 Vancomycin HCl (Vanco pharmacy to dose) 1 ea DAILY PRN MISC Per rx protocol 02/13/20 11:30 03/14/20 11:29 Anderson Durham MD Feb 15, 2020 10:42
--- NOTE | 2020-02-15 10:52 | Critical Care Progress Note ---
Assessment/Plan Assessment/Plan IMPRESSION acute respiratory failure leukocytosis sepsis ARF toxic met encephalopathy COPD DM poor control cavitary lesion negative AFB groundglass infiltrates NSTEMI severe PCM hypertension left shoulder pain bacteremia MRSA hematuria PLAN HOLD HEPARIN WITH HEMATURIA antibiotics per ID not safe for bronchoscopy; will need VATS and gen anesthesia cardiology follow up nitro PRN titrate BP meds defer PORFIRIO ? 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 - Subjective Condition: unchanged EKG Rhythm: Sinus Rhythm I&O: Intake and Output 02/14/20 02/15/20 19:00 07:00 Intake Total 820.5 ml 60 ml Output Total 1950 ml 1150 ml Balance -1129.5 ml -1090 ml Intake Oral 738 ml 60 ml IV Total 82.5 ml Output Urine Total 1950 ml 1150 ml # Voids 1 Critical Care - Objective Last 24 Hour Vital Signs Date Time Temp Pulse Resp B/P (MAP) Pulse Ox O2 Delivery O2 Flow Rate FiO2 02/15/20 08:41 119 20 149/81 99 02/15/20 08:41 119 149/81 02/15/20 08:40 119 149/81 02/15/20 08:40 149/81 02/15/20 08:00 93 02/15/20 08:00 97.7 119 20 149/81 (103) 99 02/15/20 05:37 104 22 97 Nasal Cannula 2.0 28 102 22 96 02/15/20 04:22 84 02/15/20 04:00 98.9 99 20 147/78 (101) 95 02/15/20 00:00 93 02/15/20 00:00 99.1 96 24 153/80 (104) 96 02/14/20 22:54 93 21 96 Venturi Mask 10.0 50 95 24 95 02/14/20 22:36 161/83 02/14/20 21:00 Nasal Cannula 2.0 02/14/20 20:58 93 22 145/72 94 02/14/20 20:28 100 20 156/87 96 02/14/20 20:27 100 156/87 02/14/20 20:00 98.1 100 20 156/87 (110) 96 02/14/20 20:00 97 02/14/20 18:53 96 Nasal Cannula 1.0 24 02/14/20 18:52 92 22 94 Nasal Cannula 1.0 24 02/14/20 16:11 93 21 96 Nasal Cannula 3.0 32 92 22 94 02/14/20 16:00 89 02/14/20 16:00 98.4 90 20 107/71 (83) 93 02/14/20 12:00 97.8 79 17 129/68 (88) 98 02/14/20 12:00 83 02/14/20 11:20 81 02/14/20 11:00 84 136/77 (96) 100 Labs: Labs Test 02/12/20 11:34 02/12/20 16:37 02/12/20 23:30 02/13/20 05:43 Test 02/13/20 06:15 02/13/20 09:17 02/13/20 11:39 02/13/20 12:12 White Blood Count 10.7 K/UL (4.8-10.8) Red Blood Count 3.49 M/UL (4.20-5.40) Hemoglobin 10.0 G/DL (12.0-16.0) Hematocrit 33.9 % (37.0-47.0) Mean Corpuscular Volume 97 FL (80-99) Mean Corpuscular Hemoglobin 28.8 PG (27.0-31.0) Mean Corpuscular Hemoglobin Concent 29.6 G/DL (32.0-36.0) Red Cell Distribution Width 16.2 % (11.6-14.8) Platelet Count 363 K/UL (150-450) Mean Platelet Volume 6.4 FL (6.5-10.1) Neutrophils (%) (Auto) 81.1 % (45.0-75.0) Lymphocytes (%) (Auto) 10.3 % (20.0-45.0) Monocytes (%) (Auto) 6.4 % (1.0-10.0) Eosinophils (%) (Auto) 1.3 % (0.0-3.0) Basophils (%) (Auto) 0.9 % (0.0-2.0) Sodium Level 135 MMOL/L (136-145) Potassium Level 4.3 MMOL/L (3.5-5.1) Chloride Level 99 MMOL/L (98-107) Carbon Dioxide Level 30 MMOL/L (21-32) Anion Gap 6 mmol/L (5-15) Blood Urea Nitrogen 12 mg/dL (7-18) Creatinine 1.0 MG/DL (0.55-1.30) Estimat Glomerular Filtration Rate > 60 mL/min (>60) Glucose Level 215 MG/DL (74-106) Calcium Level 7.7 MG/DL (8.5-10.1) Total Bilirubin 0.6 MG/DL (0.2-1.0) Aspartate Amino Transf (AST/SGOT) 72 U/L (15-37) Alanine Aminotransferase (ALT/SGPT) 46 U/L (12-78) Alkaline Phosphatase 801 U/L (46-116) Total Creatine Kinase 51 U/L (26-308) Total Protein 7.6 G/DL (6.4-8.2) Albumin 2.3 G/DL (3.4-5.0) Globulin 5.3 g/dL Albumin/Globulin Ratio 0.4 (1.0-2.7) POC Whole Blood Glucose 217 MG/DL (74-106) 231 MG/DL (74-106) Arterial Blood pH 7.398 (7.350-7.450) Arterial Blood Partial Pressure CO2 51.5 mmHg (35.0-45.0) Arterial Blood Partial Pressure O2 65.2 mmHg (75.0-100.0) Arterial Blood HCO3 31.0 mmol/L (22.0-26.0) Arterial Blood Oxygen Saturation 92.7 % (95-100) Arterial Blood Base Excess 5.3 (-2-2) [place] Test Positive Test 02/13/20 17:00 02/13/20 23:31 02/14/20 04:05 02/14/20 05:46 White Blood Count 12.0 K/UL (4.8-10.8) 8.7 K/UL (4.8-10.8) Red Blood Count 3.39 M/UL (4.20-5.40) 3.32 M/UL (4.20-5.40) Hemoglobin 9.8 G/DL (12.0-16.0) 9.9 G/DL (12.0-16.0) Hematocrit 31.2 % (37.0-47.0) 32.4 % (37.0-47.0) Mean Corpuscular Volume 92 FL (80-99) 98 FL (80-99) Mean Corpuscular Hemoglobin 29.0 PG (27.0-31.0) 29.7 PG (27.0-31.0) Mean Corpuscular Hemoglobin Concent 31.5 G/DL (32.0-36.0) 30.5 G/DL (32.0-36.0) Red Cell Distribution Width 16.0 % (11.6-14.8) 16.0 % (11.6-14.8) Platelet Count 337 K/UL (150-450) 348 K/UL (150-450) Mean Platelet Volume 6.2 FL (6.5-10.1) 6.3 FL (6.5-10.1) Neutrophils (%) (Auto) 83.8 % (45.0-75.0) 71.2 % (45.0-75.0) Lymphocytes (%) (Auto) 9.3 % (20.0-45.0) 16.7 % (20.0-45.0) Monocytes (%) (Auto) 5.3 % (1.0-10.0) 8.9 % (1.0-10.0) Eosinophils (%) (Auto) 0.7 % (0.0-3.0) 1.9 % (0.0-3.0) Basophils (%) (Auto) 1.0 % (0.0-2.0) 1.4 % (0.0-2.0) Creatine Kinase MB 0.5 NG/ML (0.0-3.6) Troponin I 0.037 ng/mL (0.000-0.056) 0.024 ng/mL (0.000-0.056) POC Whole Blood Glucose 292 MG/DL (74-106) 187 MG/DL (74-106) Prothrombin Time 11.7 SEC (9.30-11.50) Prothromb Time International Ratio 1.1 (0.9-1.1) Activated Partial Thromboplast Time 37 SEC (23-33) Sodium Level 131 MMOL/L (136-145) Potassium Level 4.4 MMOL/L (3.5-5.1) Chloride Level 98 MMOL/L (98-107) Carbon Dioxide Level 23 MMOL/L (21-32) Anion Gap 10 mmol/L (5-15) Blood Urea Nitrogen 14 mg/dL (7-18) Creatinine 1.2 MG/DL (0.55-1.30) Estimat Glomerular Filtration Rate 55.6 mL/min (>60) Glucose Level 169 MG/DL (74-106) Calcium Level 7.7 MG/DL (8.5-10.1) Test 02/14/20 09:29 02/14/20 11:34 02/14/20 18:00 02/14/20 23:37 POC Whole Blood Glucose 169 MG/DL (74-106) 153 MG/DL (74-106) 183 MG/DL (74-106) Test 02/15/20 06:18 POC Whole Blood Glucose 137 MG/DL (74-106) Objective: [facility]DWN ill appearing reduced breath sounds bilaterally with scattered rhonchi [id number] without MRG NABS nontender no HSM no CC leg edema nonfocal Micro: Microbiology Date/Time Source Procedure Growth Status 02/14/20 02:00 Sputum Gram Stain Pending Resulted 02/14/20 02:00 Sputum Culture - Preliminary Staphylococcus Species Usual Respiratory Carrol Resulted 02/13/20 16:30 Indwelling Cath Urine Culture - Preliminary NO GROWTH Resulted Accucheck: 139 Germán Feliz MD Feb 15, 2020 10:52
[2020-02-15 12:00] VITALS: BP 162/82
[2020-02-15] MEDS: Vancomycin 1.25gm/250ml Premix IVPB SCH (14:29)
[2020-02-15] MEDS ORDERED: Tubing IV Secondary IV ONE (14:56)
[2020-02-15] MEDS ORDERED: NS 275ml ONE (14:56)
[2020-02-15] MEDS: Methocarbamol 500mg tab ORAL PRN (15:30)
--- NOTE | 2020-02-15 15:30 | Consultation ---
DATE OF CONSULTATION: 02/15/2020 SURGEON: Fadi Galeana M.D., specialty is thoracic surgery. REFERRING PHYSICIAN: Germán Feliz M.D. HISTORY OF PRESENT ILLNESS: The patient is a 59-year-old female who was admitted to [facility] for altered mental status and fever. During the course of her hospitalization, a chest CT scan was obtained, demonstrated a right upper lobe cavitary lesion. The patient underwent a workup for tuberculosis that was deemed to be negative, and Thoracic Surgery was then consulted for a lung biopsy. PAST MEDICAL HISTORY: 1. Diabetes. 2. COPD. 3. Gastritis. 4. Supraventricular tachycardia. 5. Hypertension. 6. Gastritis. 7. Toxic encephalopathy. 8. Mild congestive heart failure. MEDICATIONS: Reviewed. ALLERGIES: The patient has no known drug allergies. FAMILY/SOCIAL HISTORY: Noncontributory. PHYSICAL EXAMINATION: GENERAL: She is noted to be afebrile. VITAL SIGNS: Within normal limits. CARDIAC: Regular rate and rhythm. No gallops or murmur. RESPIRATORY: Clear to auscultation on the left with decreased crackles on the right. ABDOMEN: Soft, nondistended, nontender with normoactive bowel sounds. EXTREMITIES: No evidence of cyanosis, clubbing, or edema. LABORATORY STUDY: Performed on February 14, 2020 showed WBC 8.7, hemoglobin of 9.9, hematocrit 32, and a platelet count of 348. Sodium on February 14, 2020 was 134, potassium 4.4, chloride 98, bicarb is 23, BUN is 14, creatinine is 1.2, and glucose is 169. AFB x3 was deemed negative. A chest CT scan was performed on January 28, 2020, which showed moderate diffuse patchy ground-glass opacification in both lungs with central distribution. In addition, there is a right upper lobe cavitary lesion noted. ASSESSMENT AND PLAN: This is a 59-year-old female who presented to [facility] with radiographic imaging evidence of right upper lobe cavitary lesion. The patient was evaluated at bedside. After reviewing her clinical database, the patient may be a candidate for right video-assisted thoracoscopic surgery with a biopsy. However, the patient at the present time does not want to proceed with surgery. I want to thank you for referring this patient to my attention. If you have any question in regard to this patient's clinical care, please do not hesitate to contact me. Arita M.D. DR: DOMINGO JOB#: [id number] CC: MIKE
[2020-02-15 16:00] VITALS: BP 172/90
--- NOTE | 2020-02-15 16:00 | NUR ---
NURSE NOTES: Patient complains of anxiety and shortness of breath. Ativan given as needed. Breathing treatment being provided by respiratory therapist.
--- NOTE | 2020-02-15 17:12 | NUR ---
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 99.5 HR 117 RR 20 B/P 172/90 2L NC O2 SAT @ 98% BNP 3910 IS: ZOSYN IV VANCO IV LOVENOX SUBC VATS TELE STATUS
[2020-02-15] MEDS: HYDROcodone/Acetamin 10/325 tab ORAL PRN (17:58)
[2020-02-15] MEDS: guaiFENesin /DM 10ml syrup ORAL PRN (18:09)
--- NOTE | 2020-02-15 18:13 | Diagnostic Imaging Report ---
Procedure: XRAY Chest 1v Reason for study: Reason For Exam: DYSPNEA Comparison films: 02/12/2020. FINDINGS: A single one view chest is obtained. Vascularity is normal. There is increased bilateral infiltrates. Small cavity again noted in the right upper lung. Cardiac and mediastinal silhouette are within normal limits. CP angles are sharp. The bony thorax appear unremarkable. IMPRESSION: Interval increased bilateral infiltrates. No significant change right upper lobe cavity.
--- NOTE | 2020-02-15 19:02 | NUR ---
NURSE HAND-OFF REPORT: Important Events on Shift: Patient Status: alert Diet: ccho med Pending Orders: Pending Results/Labs: Pending MD notification: Latest Vital Signs: Temperature 98.2 , Pulse 123 , B/P 172 /90 , Respiratory Rate 20 , O2 SAT 96 , Nasal Cannula, O2 Flow Rate 2.0 . Vital Sign Comment: tachycardia EKG Rhythm: Sinus Tachycardia Rhythm change?: y Notified?: aleisha HERNANDES Response: no new orders Latest Pineda Fall Score: 35 Fall Risk: Medium Risk Safety Measures: Call light Within Reach, Bed Alarm Zone 1, Side Rails Side Rails x3, Bed position Low and Locked. Fall Precautions: Yellow Socks Yellow Gown Door Sign Patient Fall Education . Addendum: 02/15/20 at 1938 by Malka Vargas RN HAND-OFF: Report given to Sarah BUSCH. Addendum: 02/15/20 at 1940 by Malka Vargas RN NURSE NOTES: Patient on 10L venturi mask, placed by respiratory therapist around 5pm today.
--- NOTE | 2020-02-15 19:40 | NUR ---
NURSE NOTES: RECEIVED REPORT FROM JO-ANN RUIZ. PT IN BED AWAKE/ALERT ORIENTED X4. ABLE TO MAKE NEEDS KNOWN. ON O2 VIA N/C 2L/MIN SATING AT 94%. ON BAREBACK RIDER. F/C IN PALACE & PATENT DARNING TO GRAVITY WITH SLIGHT HEMATURIA NOTED. BED IN LOW POSITION & LOCKED. SIDE RAILS UP X2. CALL LIGHT WITH IN REACH. BED ALARM ON. CALL LIGHT WITH IN REACH. WILL CONTINUE PLAN OF CARE.
[2020-02-15 20:00] VITALS: BP 141/78
[2020-02-16] VITALS: BP 149/82
[2020-02-16] MEDS: Zosyn 3.375gm q8h **Extended infusion IVPB SCH ×4 (00:43→08:57)
[2020-02-16] MEDS: HYDROcodone/Acetamin 10/325 tab ORAL PRN ×2 (02:52→12:37)
[2020-02-16] MEDS: guaiFENesin /DM 10ml syrup ORAL PRN (02:57)
[2020-02-16] MEDS: Ipratropium 0.02% Inh Soln 2.5ml UD HHN PRN ×2 (03:43→12:16)
[2020-02-16] MEDS: Methocarbamol 500mg tab ORAL PRN ×2 (03:48→16:06)
[2020-02-16 04:00] VITALS: BP 155/86
[2020-02-16] MEDS: LORazepam 1mg tab ORAL PRN (05:33)
[2020-02-16] MEDS: NovoLOG Insulin Flexpen SUBQ SCH ×5 (05:57→23:36)
--- NOTE | 2020-02-16 07:41 | NUR ---
NURSE HAND-OFF REPORT: Important Events on Shift:[N/A] Patient Status: [STABLE] Diet: [CCHO MEDIUM] Pending Orders: [] Pending Results/Labs:[] Pending MD notification:[] Latest Vital Signs: Temperature 97.8 , Pulse 90 , B/P 147 /80 , Respiratory Rate 20 , O2 SAT 94 , Nasal Cannula, O2 Flow Rate 2.0 . Vital Sign Comment: [] EKG Rhythm: Sinus Tachycardia Rhythm change?: Y Notified?: Jay briceño MD Response: Latest Pineda Fall Score: 35 Fall Risk: Medium Risk Safety Measures: Call light Within Reach, Bed Alarm Zone 1, Side Rails Side Rails x3, Bed position Low and Locked. Fall Precautions: Yellow Socks Yellow Gown Door Sign Patient Fall Education Report given to [JO-ANN ESCOBEDO].
--- NOTE | 2020-02-16 07:45 | NUR ---
NURSE NOTES: Recvd report from Sarah RN. Pt is AOx4. Pt is on NC @2L with no sign of sob or resp distress with O2 sat 96%, wheezing noted. BT will be requested. Pt is on cardiac cath technician showing ST. IV site is c/d/i. Bed in lowest locked position, call light within reach, call light within reach
[2020-02-16 08:00] VITALS: BP 151/17
--- NOTE | 2020-02-16 08:20 | Critical Care Progress Note ---
Assessment/Plan Assessment/Plan IMPRESSION acute respiratory failure leukocytosis sepsis ARF toxic met encephalopathy COPD DM poor control cavitary lesion negative AFB groundglass infiltrates NSTEMI severe PCM hypertension left shoulder pain bacteremia MRSA hematuria PLAN HOLD HEPARIN WITH HEMATURIA antibiotics per ID not safe for bronchoscopy; will need VATS and gen anesthesia- PATIENT REFUSING cardiology follow up nitro PRN titrate BP meds defer PORFIRIO ? needed; will discuss diurese ABLE anxious; on ativan not improved impression, plan, and exam edited and reviewed in detail care discussed with store planner - Subjective Condition: unchanged EKG Rhythm: Sinus Tachycardia I&O: Intake and Output 02/15/20 02/16/20 19:00 07:00 Intake Total 240 ml Output Total 1400 ml 1000 ml Balance -1160 ml -1000 ml Intake Oral 240 ml Output Urine Total 1400 ml 1000 ml # Voids 1 Critical Care - Objective Last 24 Hour Vital Signs Date Time Temp Pulse Resp B/P (MAP) Pulse Ox O2 Delivery O2 Flow Rate FiO2 02/16/20 06:03 90 20 147/80 94 02/16/20 05:33 96 22 144/70 95 02/16/20 04:00 116 02/16/20 04:00 97.8 94 20 155/86 (109) 94 02/16/20 03:45 105 21 97 Venturi Mask 10.0 40 102 24 95 02/16/20 00:00 99.0 87 20 149/82 (104) 95 02/16/20 00:00 84 02/15/20 21:17 100 144/78 02/15/20 21:00 Nasal Cannula 2.0 02/15/20 20:00 98.7 100 20 141/78 (99) 96 02/15/20 20:00 91 02/15/20 19:11 94 20 97 Nasal Cannula 2.0 28 02/15/20 19:11 97 Nasal Cannula 2.0 28 02/15/20 16:08 98.2 02/15/20 16:00 99.5 117 20 172/90 (117) 96 02/15/20 16:00 123 02/15/20 15:44 182/89 02/15/20 15:33 105 20 98 Nasal Cannula 2.0 28 103 22 97 02/15/20 14:59 60 18 182/89 93 02/15/20 14:29 96 22 162/82 95 02/15/20 12:00 97.7 96 22 162/82 (108) 95 02/15/20 12:00 97 02/15/20 09:11 96 22 162/82 95 02/15/20 09:00 Nasal Cannula 2.0 02/15/20 08:41 119 20 149/81 99 02/15/20 08:41 119 149/81 02/15/20 08:40 119 149/81 02/15/20 08:40 149/81 Labs: Laboratory Tests 02/15/20 11:20: Pro-B-Type Natriuretic Peptide 3910H 02/15/20 12:11: POC Whole Blood Glucose 197H 02/15/20 17:52: POC Whole Blood Glucose 237H 02/16/20 00:46: POC Whole Blood Glucose 98 02/16/20 05:36: POC Whole Blood Glucose 167H Objective: WDWN ill appearing reduced breath sounds bilaterally with scattered rhonchi [id number] without MRG NABS nontender no HSM no CC leg edema nonfocal Micro: Microbiology Date/Time Source Procedure Growth Status 02/14/20 02:00 Sputum Gram Stain - Final Resulted 02/14/20 02:00 Sputum Culture - Preliminary Staphylococcus Species Usual Respiratory Carrol Resulted 02/13/20 17:15 Blood Blood Culture - Preliminary NO GROWTH AFTER 48 HOURS Resulted 02/13/20 17:00 Blood Blood Culture - Preliminary NO GROWTH AFTER 48 HOURS Resulted 02/13/20 16:30 Indwelling Cath Urine Culture - Final NO GROWTH AFTER 48 HOURS Complete Accucheck: 167 Germán Feliz MD Feb 16, 2020 08:20
--- NOTE | 2020-02-16 08:20 | NUR ---
CASE MANAGEMENT:REVIEW 02/16/20 SI: ACUTE RESPIRATORY FAILURE. SEPSIS D/T MRSA BACTEREMIA. NSTEMI 97.8 116 20 147/80 94% ON VENTURI MASK 10L/40% FIO2 GLUCOSE+167 IS: IV ZOSYN Q8HRS IV VANCOMYCIN q24 IV LASIX QD ASA PO QD LOVENOX SQ Q12 LOPRESSOR PO Q12 IMDUR PO QD IV PROTONIX Q12 NORVASC PO QD : TRANSFERRED FROM ICU TO TELEMETRY STATUS DCP: FROM HOME
[2020-02-16] MEDS: Pantoprazole Inj IVP SCH (08:49)
[2020-02-16] MEDS: Imdur 30mg tab ORAL SCH (08:50)
[2020-02-16] MEDS: Aspirin Baby 81mg ORAL SCH (08:50)
[2020-02-16] MEDS: Enoxaparin 80mg Inj SUBQ SCH ×2 (08:51→21:00)
[2020-02-16] MEDS: Levemir Flexpen SUBQ SCH ×2 (08:55→17:54)
--- NOTE | 2020-02-16 08:57 | General Progress Note ---
Subjective Date patient seen: Feb 16, 2020 Time patient seen: 07:30 - AM Allergies: Coded Allergies: No Known Allergies (Unverified , 07/30/15) Subjective HISTORY OF PRESENT ILLNESS: This is a 59-year-old female who is being seen on the tele floor of [facility]. Patient resting in bed and continues to c/o pain which has been at a moderate level on the Sterling having 2 doses in the last 24hrs. No new complaints at this time. REVIEW OF SYSTEMS: Denies rash, fever, chills, sweating, dizziness, drowsiness, sore throat, or change in her weight. No nausea, vomiting, diarrhea, blood in the stool or urine. No dysuria. Objective Last 24 Hour Vital Signs Date Time Temp Pulse Resp B/P (MAP) Pulse Ox O2 Delivery O2 Flow Rate FiO2 02/16/20 08:00 98.7 71 19 151/17 (61) 93 02/16/20 06:03 90 20 147/80 94 02/16/20 05:33 96 22 144/70 95 02/16/20 04:00 116 02/16/20 04:00 97.8 94 20 155/86 (109) 94 02/16/20 03:45 105 21 97 Venturi Mask 10.0 40 102 24 95 02/16/20 00:00 99.0 87 20 149/82 (104) 95 02/16/20 00:00 84 02/15/20 21:17 100 144/78 02/15/20 21:00 Nasal Cannula 2.0 02/15/20 20:00 98.7 100 20 141/78 (99) 96 02/15/20 20:00 91 02/15/20 19:11 94 20 97 Nasal Cannula 2.0 28 02/15/20 19:11 97 Nasal Cannula 2.0 28 02/15/20 16:08 98.2 02/15/20 16:00 99.5 117 20 172/90 (117) 96 02/15/20 16:00 123 02/15/20 15:44 182/89 02/15/20 15:33 105 20 98 Nasal Cannula 2.0 28 103 22 97 02/15/20 14:59 60 18 182/89 93 02/15/20 14:29 96 22 162/82 95 02/15/20 12:00 97.7 96 22 162/82 (108) 95 02/15/20 12:00 97 02/15/20 09:11 96 22 162/82 95 02/15/20 09:00 Nasal Cannula 2.0 Intake and Output 02/15/20 02/16/20 19:00 07:00 Intake Total 240 ml Output Total 1400 ml 1000 ml Balance -1160 ml -1000 ml Intake Oral 240 ml Output Urine Total 1400 ml 1000 ml # Voids 1 Laboratory Tests 02/15/20 11:20: Pro-B-Type Natriuretic Peptide 3910H 02/15/20 12:11: POC Whole Blood Glucose 197H 02/15/20 17:52: POC Whole Blood Glucose 237H 02/16/20 00:46: POC Whole Blood Glucose 98 02/16/20 05:36: POC Whole Blood Glucose 167H Height (Feet): 5 Height (Inches): 1.00 Weight (Pounds): 168 Objective PHYSICAL EXAMINATION: GENERAL: Alert, awake, and oriented. LUNGS: Decreased breath sounds bilaterally. HEART: S1 and S2 regular. ABDOMEN: Obese. EXTREMITIES: No cyanosis. No clubbing. NEURO: No changes. Assessment/Plan Assessment/Plan: (1) Cervical DDD (2) Cervical Spondylosis Patient to be continued on Sterling, Neurontin, Robaxin and Lidocaine patch. D/w Dr. Landa and he concurred. Monster Corey Feb 16, 2020 08:56
--- NOTE | 2020-02-16 10:20 | Infectious Diseases Prog Note ---
Assessment/Plan Assessment/Plan antibiotics : vancomycin iv, zosyn A 1. staph aureus cavitary pneumonia sputum AFB negative x 3 2. MRSA sepsis r/o endocarditis 3. diabetes mellitus 4. hypertension 5. COPD 6. renal failure improving 7. aortic stenosis P 1. continue iv vancomcyin 27 more days 2. d/c zosyn 3. will follow up cultures 4. bronchoscopy with biopsy planned Subjective Constitutional: Denies: fever, chills Respiratory: Reports: shortness of breath, dry cough Gastrointestinal/Abdominal: Denies: nausea, vomiting, diarrhea Musculoskeletal: Reports: pain Allergies: Coded Allergies: No Known Allergies (Unverified , 07/30/15) Objective Last 24 Hour Vital Signs Date Time Temp Pulse Resp B/P (MAP) Pulse Ox O2 Delivery O2 Flow Rate FiO2 02/16/20 08:50 151/17 02/16/20 08:49 71 151/17 02/16/20 08:49 71 151/17 02/16/20 08:00 98.7 71 19 151/17 (61) 93 02/16/20 06:03 90 20 147/80 94 02/16/20 05:33 96 22 144/70 95 02/16/20 04:00 116 02/16/20 04:00 97.8 94 20 155/86 (109) 94 02/16/20 03:45 105 21 97 Venturi Mask 10.0 40 102 24 95 02/16/20 00:00 99.0 87 20 149/82 (104) 95 02/16/20 00:00 84 02/15/20 21:17 100 144/78 02/15/20 21:00 Nasal Cannula 2.0 02/15/20 20:00 98.7 100 20 141/78 (99) 96 02/15/20 20:00 91 02/15/20 19:11 94 20 97 Nasal Cannula 2.0 28 02/15/20 19:11 97 Nasal Cannula 2.0 28 02/15/20 16:08 98.2 02/15/20 16:00 99.5 117 20 172/90 (117) 96 02/15/20 16:00 123 02/15/20 15:44 182/89 02/15/20 15:33 105 20 98 Nasal Cannula 2.0 28 103 22 97 02/15/20 14:59 60 18 182/89 93 02/15/20 14:29 96 22 162/82 95 02/15/20 12:00 97.7 96 22 162/82 (108) 95 02/15/20 12:00 97 Height (Feet): 5 Height (Inches): 1.00 Weight (Pounds): 168 Respiratory/Chest: lungs clear Cardiovascular: normal rate, regular rhythm, no gallop/murmur Abdomen: soft, non tender Extremities: no edema Microbiology Date/Time Source Procedure Growth Status 02/14/20 02:00 Sputum Gram Stain - Final Resulted 02/14/20 02:00 Sputum Culture - Preliminary Staphylococcus Species Rosa Elena Albicans Usual Respiratory Carrol Resulted 02/13/20 17:15 Blood Blood Culture - Preliminary NO GROWTH AFTER 48 HOURS Resulted 02/13/20 17:00 Blood Blood Culture - Preliminary NO GROWTH AFTER 48 HOURS Resulted 02/13/20 16:30 Indwelling Cath Urine Culture - Final NO GROWTH AFTER 48 HOURS Complete Laboratory Tests Test 02/15/20 11:20 02/15/20 12:11 02/15/20 17:52 02/16/20 00:46 Pro-B-Type Natriuretic Peptide 3910 pg/mL (0-125) H POC Whole Blood Glucose 197 MG/DL (74-106) H 237 MG/DL (74-106) H 98 MG/DL (74-106) Test 02/16/20 05:36 POC Whole Blood Glucose 167 MG/DL (74-106) H Current Medications Medications (Trade) Dose Ordered Sig/Ivana Route PRN Reason Start Time Stop Time Status Last Admin Dose Admin Acetaminophen (Tylenol) 650 mg Q6H PRN ORAL MILD PAIN, FEVER 01/28/20 22:45 02/27/20 22:44 02/15/20 15:38 Acetaminophen/ Hydrocodone Bitart ([employer] 10/325) 1 tab Q4H PRN ORAL Moderate Pain (Pain Scale 4-6) 02/15/20 09:45 02/22/20 09:44 02/16/20 02:52 Amlodipine Besylate (Norvasc) 10 mg DAILY ORAL 02/01/20 09:00 03/02/20 08:59 02/16/20 08:49 Aspirin (ASA) 81 mg DAILY ORAL 02/14/20 09:00 03/30/20 08:59 02/16/20 08:50 Clonidine HCl (Catapres Tab) 0.1 mg Q4H PRN ORAL SBP > 150mmHg 02/06/20 07:00 05/06/20 06:59 02/15/20 15:44 Dextrose (Dextrose 50%) 25 ml Q30M PRN IV Hypoglycemia 01/28/20 22:45 04/27/20 22:44 Dextrose (Dextrose 50%) 50 ml Q30M PRN IV Hypoglycemia 01/28/20 22:45 04/27/20 22:44 Enoxaparin Sodium (Lovenox) 80 mg Q12HR SUBQ 02/13/20 18:54 05/13/20 18:53 02/16/20 08:51 Epoetin Haseeb (Epoetin Haseeb-EPBX(NON ESRD)) 8,000 unit WED-WED-WED SUBQ 02/05/20 21:00 05/05/20 20:59 02/14/20 20:27 Furosemide (Lasix) 40 mg DAILY IV 02/13/20 13:00 03/14/20 13:59 02/16/20 08:49 Gabapentin (Neurontin) 300 mg THREE TIMES A DAY ORAL 02/11/20 09:30 03/12/20 09:29 02/16/20 08:49 Guaifenesin/ Dextromethorphan (Robitussin DM Syrup) 15 ml Q4H PRN ORAL For Cough 02/12/20 16:53 05/12/20 16:52 02/16/20 02:57 Insulin Aspart (NovoLOG) Q6HR SUBQ 01/29/20 00:00 04/28/20 00:00 02/16/20 05:57 Insulin Detemir (Levemir) 10 units BID SUBQ 02/08/20 18:00 05/04/20 17:59 02/16/20 08:55 Ipratropium [place] (Atrovent) 500 mcg Q4H PRN HHN Shortness of Breath 02/13/20 12:45 02/18/20 12:44 02/16/20 03:43 Isosorbide Mononitrate (Imdur) 30 mg DAILY ORAL 02/02/20 09:00 03/03/20 08:59 02/16/20 08:50 Lidocaine (Lidoderm 5% PATCH) 1 patch DAILY TDERMAL 02/11/20 09:30 05/11/20 09:29 02/16/20 08:50 Lorazepam (Ativan) 1 mg Q4H PRN ORAL For Anxiety 02/14/20 20:15 02/21/20 20:14 02/16/20 05:33 Methocarbamol (Robaxin) 500 mg Q8H PRN ORAL muscle spasm 02/11/20 09:30 03/12/20 09:29 02/16/20 03:48 Metoprolol Tartrate (Lopressor) 25 mg Q12HR ORAL 02/04/20 21:00 05/04/20 20:59 02/16/20 08:49 Nitroglycerin (Ntg) 0.4 mg Q5M PRN SL Prn Chest Pain 02/01/20 08:00 03/02/20 07:59 02/03/20 06:17 Ondansetron HCl (Zofran) 4 mg Q6H PRN IVP Nausea & Vomiting 01/28/20 22:45 02/27/20 22:44 02/01/20 18:10 Pantoprazole (Protonix) 40 mg BIAC ORAL 02/16/20 16:30 03/17/20 16:29 Piperacillin Sod/ Tazobactam Sod 3.375 gm/Sodium Chloride 110 ml @ 27.5 mls/hr Q8HR@0100,0900,1700 IVPB 02/13/20 17:00 02/20/20 16:59 02/16/20 08:57 Vancomycin HCl 250 ml @ 166.667 mls/hr Q24H IVPB 02/13/20 14:00 02/18/20 13:59 02/15/20 14:29 Vancomycin HCl (Vanco pharmacy to dose) 1 ea DAILY PRN MISC Per rx protocol 02/13/20 11:30 03/14/20 11:29 Messi Lopez MD Feb 16, 2020 10:20
[2020-02-16 12:00] VITALS: BP 164/88
[2020-02-16 16:00] VITALS: BP 145/76
[2020-02-16] MEDS: Vancomycin 1.5gm/300ml Premix 300 ML IVPB SCH (16:05)
--- NOTE | 2020-02-16 17:14 | Cardiology Report ---
APPROVED REPORT EKG Measurement Heart [id number] [id number] <Conclusion> Sinus tachycardia with premature atrial complexes Subendocardial ischemia Abnormal ECG
--- NOTE | 2020-02-16 18:06 | General Progress Note ---
Subjective Allergies: Coded Allergies: No Known Allergies (Unverified , 07/30/15) Subjective Above noted no abd pain d/w pt re HCV and anemia needs outpatient evaluations once better Objective Last 24 Hour Vital Signs Date Time Temp Pulse Resp B/P (MAP) Pulse Ox O2 Delivery O2 Flow Rate FiO2 02/16/20 16:00 103 02/16/20 16:00 98.1 71 20 145/76 (99) 94 02/16/20 13:07 98.7 02/16/20 12:37 164/88 02/16/20 12:26 102 20 98 Nasal Cannula 4.0 36 98 20 94 02/16/20 12:25 98 20 94 Nasal Cannula 2.0 28 02/16/20 12:15 94 Nasal Cannula 4.0 36 02/16/20 12:00 98.7 110 18 164/88 (113) 93 02/16/20 12:00 120 02/16/20 09:00 Nasal Cannula 2.0 02/16/20 08:50 151/17 02/16/20 08:49 71 151/17 02/16/20 08:49 71 151/17 02/16/20 08:00 98.7 71 19 151/17 (61) 93 02/16/20 08:00 123 02/16/20 06:03 90 20 147/80 94 02/16/20 05:33 96 22 144/70 95 02/16/20 04:00 116 02/16/20 04:00 97.8 94 20 155/86 (109) 94 02/16/20 03:45 105 21 97 Venturi Mask 10.0 40 102 24 95 02/16/20 00:00 99.0 87 20 149/82 (104) 95 02/16/20 00:00 84 02/15/20 21:17 100 144/78 02/15/20 21:00 Nasal Cannula 2.0 02/15/20 20:00 98.7 100 20 141/78 (99) 96 02/15/20 20:00 91 02/15/20 19:11 94 20 97 Nasal Cannula 2.0 28 02/15/20 19:11 97 Nasal Cannula 2.0 28 Intake and Output 02/15/20 02/16/20 19:00 07:00 Intake Total 240 ml Output Total 1400 ml 1000 ml Balance -1160 ml -1000 ml Intake Oral 240 ml Output Urine Total 1400 ml 1000 ml # Voids 1 Laboratory Tests 02/16/20 00:46: POC Whole Blood Glucose 98 02/16/20 05:36: POC Whole Blood Glucose 167H 02/16/20 12:10: POC Whole Blood Glucose 206H 02/16/20 12:45: Vancomycin Level Trough 12.3H 02/16/20 16:52: POC Whole Blood Glucose 251H Height (Feet): 5 Height (Inches): 1.00 Weight (Pounds): 168 Objective WDWN NCAT supple CTA RR Abd soft ND mild edema Assessment/Plan Assessment/Plan: Assessment - hepatitis C with nodular liver, PCR (+) - constipation - resolved - Swallowing Sx - resolved - HTN - COPD - Lung mass - DM - PSVT - anemia Recommendations - po as tolerated - follow LFT - PPI - Elevate HOB - outpatient HCV Rx - laxative - Outpatient colonoscopy once recovered from current illness Feliberto Pérez MD Feb 16, 2020 18:06
[2020-02-16 20:00] VITALS: BP 143/70
[2020-02-16] MEDS: Epoetin Alfa-EPBX (NON ESRD)4000 units/ml vial SUBQ SCH (23:35)
[2020-02-17] VITALS: BP 143/70
[2020-02-17] MEDS: Ipratropium 0.02% Inh Soln 2.5ml UD HHN PRN (03:41)
[2020-02-17 04:00] VITALS: BP 146/82
[2020-02-17] MEDS: NovoLOG Insulin Flexpen SUBQ SCH ×4 (06:00→23:54)
--- NOTE | 2020-02-17 07:40 | NUR ---
NURSE HAND-OFF REPORT: Important Events on Shift: Pt began to desat into 70%, non rebreather at 10 LPM. Now satting at 95%. Dtr wants to speak with Dr. Galeana r/t bronchoscopy, will not sign consent w/o speaking Patient Status: stable Diet: CCHO Med Pending Orders: bronchoscopy 02/18 Pending Results/Labs:cbc, pt, ptt, bmp Pending MD notification: none Latest Vital Signs: Temperature 99.5 , Pulse 102 , B/P 146 /82 , Respiratory Rate 17 , O2 SAT 100 , Nasal Cannula, O2 Flow Rate 4.0 . Vital Sign Comment: EKG Rhythm: Sinus Tachycardia Rhythm change?: N MD Notified?: Y -dr. navarro HERNANDES Response: Latest Pineda Fall Score: 35 Fall Risk: Medium Risk Safety Measures: Call light Within Reach, Bed Alarm Zone 1, Side Rails Side Rails x3, Bed position Low and Locked. Fall Precautions: yes Yellow Socks yes Yellow Gown yes Door Sign yes Patient Fall Education yes Report given to Shannon England RN.
--- NOTE | 2020-02-17 07:46 | NUR ---
CASE MANAGEMENT:REVIEW 02/17/20 SI: ACUTE RESPIRATORY FAILURE. SEPSIS D/T MRSA BACTEREMIA. NSTEMI 99.5 102 17 146/82 98% ON 4L/NC GLUCOSE+117 IS: IV VANCOMYCIN Q24 IV LASIX QD ASA PO QD LOVENOX SQ Q12 LOPRESSOR PO Q12 IMDUR PO QD IV PROTONIX Q12 NORVASC PO QD : TELEMETRY STATUS DCP: FROM HOME PLAN: CONSENT FOR BRONCHOSCOPY W/RT LUNG BIOPSY WITH VATS
--- NOTE | 2020-02-17 07:49 | NUR ---
NURSE NOTES: Receive report from Nhung/RN. Pt sleeping in semi-fowlers position. On 10L non-rebreather mask, no distress or SOB noted at this moment. IV on right hand 22G TKO, patent and clean. Bed in the lowest position and locked, call light within reach, encouraged to use it when needed. Side rails up X3. Will continue plan of care.
[2020-02-17 08:00] VITALS: BP 147/84
[2020-02-17] MEDS: Imdur 30mg tab ORAL SCH (09:01)
[2020-02-17] MEDS: Aspirin Baby 81mg ORAL SCH (09:01)
[2020-02-17] MEDS: Enoxaparin 80mg Inj SUBQ SCH ×2 (09:04→22:12)
[2020-02-17] MEDS: Levemir Flexpen SUBQ SCH ×2 (09:07→18:11)
--- NOTE | 2020-02-17 09:10 | Critical Care Progress Note ---
Assessment/Plan Assessment/Plan IMPRESSION acute respiratory failure leukocytosis sepsis ARF toxic met encephalopathy COPD DM poor control cavitary lesion negative AFB groundglass infiltrates NSTEMI severe PCM hypertension left shoulder pain bacteremia MRSA hematuria PLAN HOLD HEPARIN on wednesday antibiotics per ID VATS wednesday cardiology follow up and clearance nitro PRN titrate BP meds diurese ABLE anxious; on ativan not improved impression, plan, and exam edited and reviewed in detail care discussed with ladle cleaner - Subjective Interval Events: d/w family agrees to surgery notes she has had abnormal CXR in prior hospitalization but no diagnosis Condition: unchanged I&O: Intake and Output 02/16/20 02/17/20 19:00 07:00 Output Total 500 ml Balance -500 ml Output Urine Total 500 ml # Voids 1 # Bowel Movements 2 Critical Care - Objective Last 24 Hour Vital Signs Date Time Temp Pulse Resp B/P (MAP) Pulse Ox O2 Delivery O2 Flow Rate FiO2 02/17/20 09:02 92 147/84 02/17/20 09:02 92 147/84 02/17/20 09:01 147/84 02/17/20 08:00 97.7 92 22 147/84 (105) 100 02/17/20 04:00 99.5 102 17 146/82 (103) 100 02/17/20 04:00 102 02/17/20 03:41 92 20 98 Nasal Cannula 4.0 36 88 20 6 02/17/20 00:00 99.0 98 22 143/70 (94) 93 02/17/20 00:00 115 02/16/20 23:36 102 143/70 02/16/20 20:00 99.5 102 24 143/70 (94) 94 02/16/20 19:20 90 20 97 Nasal Cannula 4.0 36 02/16/20 19:10 97 Nasal Cannula 4.0 36 02/16/20 16:00 103 02/16/20 16:00 98.1 71 20 145/76 (99) 94 02/16/20 13:07 98.7 02/16/20 12:37 164/88 02/16/20 12:26 102 20 98 Nasal Cannula 4.0 36 98 20 94 02/16/20 12:25 98 20 94 Nasal Cannula 2.0 28 02/16/20 12:15 94 Nasal Cannula 4.0 36 02/16/20 12:00 98.7 110 18 164/88 (113) 93 02/16/20 12:00 120 Objective: WDWN ill appearing reduced breath sounds bilaterally with scattered rhonchi [id number] without MRG NABS nontender no HSM no CC leg edema nonfocal Accucheck: 117 Germán Feliz MD Feb 17, 2020 09:10
[2020-02-17] MEDS: HYDROcodone/Acetamin 10/325 tab ORAL PRN ×2 (09:25→15:21)
[2020-02-17] MEDS: Methocarbamol 500mg tab ORAL PRN (09:26)
[2020-02-17 12:00] VITALS: BP 158/90
--- NOTE | 2020-02-17 12:18 | Infectious Diseases Prog Note ---
Assessment/Plan Assessment/Plan A 1. cavitary pneumonia with MRSA sputum AFB negative x 3 2. staph aureus (MRSA) sepsis r/o endocarditis 3. diabetes mellitus 4. hypertension 5. COPD 6. renal failure 7. aortic stenosis 8. Anemia 9. CHF, EF=40-45% P 1. Continue IV Vancomycin X 26 days 2. will f/u cultures Subjective ROS Limited/Unobtainable: Yes Respiratory: Reports: shortness of breath, productive cough Gastrointestinal/Abdominal: Reports: no symptoms Allergies: Coded Allergies: No Known Allergies (Unverified , 07/30/15) Objective Last 24 Hour Vital Signs Date Time Temp Pulse Resp B/P (MAP) Pulse Ox O2 Delivery O2 Flow Rate FiO2 02/17/20 09:02 92 147/84 02/17/20 09:02 92 147/84 02/17/20 09:01 147/84 02/17/20 08:00 106 02/17/20 08:00 97.7 92 22 147/84 (105) 100 02/17/20 04:00 99.5 102 17 146/82 (103) 100 02/17/20 04:00 102 02/17/20 03:41 92 20 98 Nasal Cannula 4.0 36 88 20 6 02/17/20 00:00 99.0 98 22 143/70 (94) 93 02/17/20 00:00 115 02/16/20 23:36 102 143/70 02/16/20 20:00 99.5 102 24 143/70 (94) 94 02/16/20 19:20 90 20 97 Nasal Cannula 4.0 36 02/16/20 19:10 97 Nasal Cannula 4.0 36 02/16/20 16:00 103 02/16/20 16:00 98.1 71 20 145/76 (99) 94 02/16/20 13:07 98.7 02/16/20 12:37 164/88 02/16/20 12:26 102 20 98 Nasal Cannula 4.0 36 98 20 94 02/16/20 12:25 98 20 94 Nasal Cannula 2.0 28 Height (Feet): 5 Height (Inches): 1.00 Weight (Pounds): 168 Respiratory/Chest: lungs clear, other - oxygen by rebreathing mask Cardiovascular: normal rate Abdomen: soft, non tender Extremities: no edema Neurologic/Psychiatric: alert, responsive Laboratory Tests Test 02/16/20 12:45 02/16/20 16:52 02/17/20 06:51 02/17/20 11:54 Vancomycin Level Trough 12.3 ug/mL (5.0-12.0) H POC Whole Blood Glucose 251 MG/DL (74-106) H 117 MG/DL (74-106) H 229 MG/DL (74-106) H Current Medications Medications (Trade) Dose Ordered Sig/Ivana Route PRN Reason Start Time Stop Time Status Last Admin Dose Admin Acetaminophen (Tylenol) 650 mg Q6H PRN ORAL MILD PAIN, FEVER 01/28/20 22:45 02/27/20 22:44 02/15/20 15:38 Acetaminophen/ Hydrocodone Bitart ([place]land 10/325) 1 tab Q4H PRN ORAL Moderate Pain (Pain Scale 4-6) 02/15/20 09:45 02/22/20 09:44 02/17/20 09:25 Amlodipine Besylate (Norvasc) 10 mg DAILY ORAL 02/01/20 09:00 03/02/20 08:59 02/17/20 09:02 Aspirin (ASA) 81 mg DAILY ORAL 02/14/20 09:00 03/30/20 08:59 02/17/20 09:01 Clonidine HCl (Catapres Tab) 0.1 mg Q4H PRN ORAL SBP > 150mmHg 02/06/20 07:00 05/06/20 06:59 02/16/20 12:37 Dextrose (Dextrose 50%) 25 ml Q30M PRN IV Hypoglycemia 01/28/20 22:45 04/27/20 22:44 Dextrose (Dextrose 50%) 50 ml Q30M PRN IV Hypoglycemia 01/28/20 22:45 04/27/20 22:44 Enoxaparin Sodium (Lovenox) 80 mg Q12HR SUBQ 02/13/20 18:54 05/13/20 18:53 02/17/20 09:04 Epoetin Haseeb (Epoetin Haseeb-EPBX(NON ESRD)) 8,000 unit WED-WED-WED SUBQ 02/05/20 21:00 05/05/20 20:59 02/16/20 23:35 Furosemide (Lasix) 40 mg DAILY IV 02/13/20 13:00 03/14/20 13:59 02/17/20 09:02 Gabapentin (Neurontin) 300 mg THREE TIMES A DAY ORAL 02/11/20 09:30 03/12/20 09:29 02/17/20 12:13 Guaifenesin/ Dextromethorphan (Robitussin DM Syrup) 15 ml Q4H PRN ORAL For Cough 02/12/20 16:53 05/12/20 16:52 02/16/20 02:57 Insulin Aspart (NovoLOG) Q6HR SUBQ 01/29/20 00:00 04/28/20 00:00 02/17/20 12:14 Insulin Detemir (Levemir) 10 units BID SUBQ 02/08/20 18:00 05/04/20 17:59 02/17/20 09:07 Ipratropium Kayenta (Atrovent) 500 mcg Q4H PRN HHN Shortness of Breath 02/13/20 12:45 02/18/20 12:44 02/17/20 03:41 Isosorbide Mononitrate (Imdur) 30 mg DAILY ORAL 02/02/20 09:00 03/03/20 08:59 02/17/20 09:01 Lidocaine (Lidoderm 5% PATCH) 1 patch DAILY TDERMAL 02/11/20 09:30 05/11/20 09:29 02/17/20 09:04 Lorazepam (Ativan) 1 mg Q4H PRN ORAL For Anxiety 02/14/20 20:15 02/21/20 20:14 02/16/20 05:33 Methocarbamol (Robaxin) 500 mg Q8H PRN ORAL muscle spasm 02/11/20 09:30 03/12/20 09:29 02/17/20 09:26 Metoprolol Tartrate (Lopressor) 25 mg Q12HR ORAL 02/04/20 21:00 05/04/20 20:59 02/17/20 09:02 Nitroglycerin (Ntg) 0.4 mg Q5M PRN SL Prn Chest Pain 02/01/20 08:00 03/02/20 07:59 02/03/20 06:17 Ondansetron HCl (Zofran) 4 mg Q6H PRN IVP Nausea & Vomiting 01/28/20 22:45 02/27/20 22:44 02/01/20 18:10 Pantoprazole (Protonix) 40 mg BIAC ORAL 02/16/20 16:30 03/17/20 16:29 02/17/20 06:59 Vancomycin HCl 300 ml @ 150 mls/hr Q24H IVPB 02/16/20 15:00 02/21/20 14:59 02/16/20 16:05 Vancomycin HCl (Vanco pharmacy to dose) 1 ea DAILY PRN MISC Per rx protocol 02/13/20 11:30 03/14/20 11:29 Anderson Durham MD Feb 17, 2020 12:18
[2020-02-17 13:22] LABS: BASOPHILS % (AUTO) 0.7 % (0.0-2.0); EOSINOPHILS % (AUTO) 0.1 % (0.0-3.0); HEMATOCRIT 32.6 % (37.0-47.0); HEMOGLOBIN 9.6 G/DL (12.0-16.0); LYMPHOCYTES % (AUTO) 10.4 % (20.0-45.0); MEAN CORPUSCULAR VOLUME 97 FL (80-99); MONOCYTES % (AUTO) 5.1 % (1.0-10.0); NEUTROPHILS % (AUTO) 83.7 % (45.0-75.0); PLATELET COUNT 405 K/UL (150-450); RED BLOOD COUNT 3.37 M/UL (4.20-5.40); RED CELL DISTRIBUTION WIDTH 15.8 % (11.6-14.8); WHITE BLOOD COUNT 7.4 K/UL (4.8-10.8)
[2020-02-17 13:43] LABS: ANION GAP 5 mmol/L (5-15); BLOOD UREA NITROGEN 20 mg/dL (7-18); CALCIUM 7.4 MG/DL (8.5-10.1); CARBON DIOXIDE 35 MMOL/L (21-32); CHLORIDE 99 MMOL/L (98-107); CREATININE 0.9 MG/DL (0.55-1.30); POTASSIUM 3.8 MMOL/L (3.5-5.1); SODIUM 138 MMOL/L (136-145)
--- NOTE | 2020-02-17 14:55 | NUR ---
NURSE NOTES: Contacted primary Dr to let him know pt was put on non-rebreather mask at 10L because oxygen level dropped to low 70s. Dr ordered ABG's.
[2020-02-17] MEDS ORDERED: Ipratropium 0.02% Inh Soln 2.5ml UD HHN PRN (15:15)
[2020-02-17] MEDS: Vancomycin 1.5gm/300ml Premix 300 ML IVPB SCH (15:19)
[2020-02-17] MEDS: guaiFENesin /DM 10ml syrup ORAL PRN (15:20)
[2020-02-17] MEDS ORDERED: Tubing IV Secondary IV ONE (15:45)
--- NOTE | 2020-02-17 15:52 | General Progress Note ---
Subjective Allergies: Coded Allergies: No Known Allergies (Unverified , 07/30/15) Subjective Above noted c/o dyspnea d/w daughter at bedside d/w both re HCV and anemia advised needs outpatient HCR Rx and colonoscopy Objective Last 24 Hour Vital Signs Date Time Temp Pulse Resp B/P (MAP) Pulse Ox O2 Delivery O2 Flow Rate FiO2 02/17/20 12:00 106 02/17/20 12:00 97.9 109 20 158/90 (112) 99 02/17/20 09:02 92 147/84 02/17/20 09:02 92 147/84 02/17/20 09:01 147/84 02/17/20 09:00 Non-Rebreather 10.0 02/17/20 08:00 106 02/17/20 08:00 97.7 92 22 147/84 (105) 100 02/17/20 04:00 99.5 102 17 146/82 (103) 100 02/17/20 04:00 102 02/17/20 03:41 92 20 98 Nasal Cannula 4.0 36 88 20 6 02/17/20 00:00 99.0 98 22 143/70 (94) 93 02/17/20 00:00 115 02/16/20 23:36 102 143/70 02/16/20 20:00 99.5 102 24 143/70 (94) 94 02/16/20 19:20 90 20 97 Nasal Cannula 4.0 36 02/16/20 19:10 97 Nasal Cannula 4.0 36 02/16/20 16:00 103 02/16/20 16:00 98.1 71 20 145/76 (99) 94 Intake and Output 02/16/20 02/17/20 19:00 07:00 Output Total 500 ml Balance -500 ml Output Urine Total 500 ml # Voids 1 # Bowel Movements 2 Laboratory Tests 02/16/20 16:52: POC Whole Blood Glucose 251H 02/17/20 06:51: POC Whole Blood Glucose 117H 02/17/20 11:54: POC Whole Blood Glucose 229H 02/17/20 12:50: White Blood Count 7.4, Red Blood Count 3.37L, Hemoglobin 9.6L, Hematocrit 32.6L, Mean Corpuscular Volume 97, Mean Corpuscular Hemoglobin 28.4, Mean Corpuscular Hemoglobin Concent 29.4L, Red Cell Distribution Width 15.8H, Platelet Count 405, Mean Platelet Volume 5.8L, Neutrophils (%) (Auto) 83.7H, Lymphocytes (%) (Auto) 10.4L, Monocytes (%) (Auto) 5.1, Eosinophils (%) (Auto) 0.1, Basophils (%) (Auto) 0.7, Prothrombin Time 11.4, Prothromb Time International Ratio 1.0, Activated Partial Thromboplast Time 35H, Sodium Level 138, Potassium Level 3.8, Chloride Level 99, Carbon Dioxide Level 35H, Anion Gap 5, Blood Urea Nitrogen 20H, Creatinine 0.9, Estimat Glomerular Filtration Rate > 60, Glucose Level 215H , Calcium Level 7.4L Height (Feet): 5 Height (Inches): 1.00 Weight (Pounds): 168 Objective WDWN NCAT supple CTA RR Abd soft ND mild edema Assessment/Plan Assessment/Plan: Assessment - hepatitis C with nodular liver, PCR (+) - constipation - resolved - Swallowing Sx - resolved - HTN - COPD - Lung mass - DM - PSVT - anemia Recommendations - po as tolerated - follow LFT - PPI - Elevate HOB - outpatient HCV eradication - laxative PRN - Outpatient colonoscopy once recovered from current illness Feliberto Pérez MD Feb 17, 2020 15:52
[2020-02-17 16:00] VITALS: BP 159/84
--- NOTE | 2020-02-17 18:00 | NUR ---
NURSE NOTES: Called Dr Feliz to let him know the result of the pt ABG's and the RT recommendations. Waiting for a call back.
[2020-02-17] MEDS: LORazepam 1mg tab ORAL PRN (18:44)
--- NOTE | 2020-02-17 19:45 | NUR ---
NURSE HAND-OFF REPORT: Important Events on Shift:Pending transfer to [facility] per Dr Feliz's order, abnormal ABG's Patient Status: Stable Diet: CCHO medium Pending Orders: Pending Results/Labs: Pending MD notification: Latest Vital Signs: Temperature 97.7 , Pulse 102 , B/P 159 /84 , Respiratory Rate 20 , O2 SAT 98 , Non-Rebreather, O2 Flow Rate 10.0 . Vital Sign Comment: Stable EKG Rhythm: Sinus Tachycardia Rhythm change?: N Notified?: Y -dr. navarro HERNANDES Response: Latest Pineda Fall Score: 35 Fall Risk: Medium Risk Safety Measures: Call light Within Reach, Bed Alarm Zone 1, Side Rails Side Rails x3, Bed position Low and Locked. Fall Precautions: Yellow Socks Yellow Gown Door Sign Patient Fall Education Report given to Lena/RN.
[2020-02-17 20:00] VITALS: BP 131/71
--- NOTE | 2020-02-17 20:20 | NUR ---
NURSE NOTES: Received patient from JO-ANN Ortega.Patient is AO x3 able to make needs known. Patient complains of shortness of breath. Patient is on nonrebreather 10L. IV is intact and patent. There are no signs of erythema, infiltration, or bleeding at the time. Head of the bed is 45% mask is on. Bed is in the lowest position, call light is within reach, side rails up x3, and bed alarm on. Will continue to monitor.
--- NOTE | 2020-02-17 20:30 | NUR ---
NURSE NOTES: Per covering and lining supervisor Baldev there are no beds available in [facility]. Asked Dr. Feliz if it would be ok to start patient here on Bipap and he agreed. Will do as ordered.
[2020-02-18] VITALS: BP 151/86
--- NOTE | 2020-02-18 03:51 | Cardiology Progress Note ---
Subjective DATE OF SERVICE: Feb 17, 2020 Maintaining negative fluid balance with current diuretic dosing. Less congestion and SOB. O2 requirements decreasing. ABG (02/17/20) 7.32/71 /90 2D Echo reviewed - EF 45%, severe pulmonary hypertension, mild-moderate AV stenosis with ESTHER 1.5cm2 CXR (02/02) with cavitary lesion and mild congestive changes. Objective Last 24 Hour Vital Signs Date Time Temp Pulse Resp B/P (MAP) Pulse Ox O2 Delivery O2 Flow Rate FiO2 02/18/20 03:00 98 25 100 100 02/18/20 00:00 103 02/18/20 00:00 99.0 101 24 151/86 (107) 100 02/17/20 23:28 96 24 100 100 02/17/20 22:11 100 131/71 02/17/20 21:13 104 26 100 100 02/17/20 21:12 97 Non-Rebreather 15.0 100 02/17/20 21:12 104 20 100 Bi-Pap 100 02/17/20 21:00 Bi-pap 10.0 02/17/20 20:00 100 02/17/20 20:00 98.6 100 24 131/71 (91) 100 02/17/20 19:14 102 20 159/84 98 02/17/20 18:44 102 20 159/84 98 02/17/20 18:43 159/84 02/17/20 16:00 102 02/17/20 16:00 97.7 101 20 159/84 (109) 98 02/17/20 12:00 106 02/17/20 12:00 97.9 109 20 158/90 (112) 99 02/17/20 09:02 92 147/84 02/17/20 09:02 92 147/84 02/17/20 09:01 147/84 02/17/20 09:00 Non-Rebreather 10.0 02/17/20 08:00 106 02/17/20 08:00 97.7 92 22 147/84 (105) 100 02/17/20 04:00 99.5 102 17 146/82 (103) 100 02/17/20 04:00 102 HEENT: normal ENT inspection RHYTHM: NSR LUNGS: bilat. rhonchi and rales CARDIAC: systolic murmur - 1/6 at base ABDOMEN: normal bowel sounds, non tender, soft EXTREMITIES: normal range of motion, non-pitting Laboratory Tests Test 02/17/20 06:51 02/17/20 11:54 02/17/20 12:50 02/17/20 16:20 POC Whole Blood Glucose 117 MG/DL (74-106) H 229 MG/DL (74-106) H White Blood Count 7.4 K/UL (4.8-10.8) Red Blood Count 3.37 M/UL (4.20-5.40) L Hemoglobin 9.6 G/DL (12.0-16.0) L Hematocrit 32.6 % (37.0-47.0) L Mean Corpuscular Volume 97 FL (80-99) Mean Corpuscular Hemoglobin 28.4 PG (27.0-31.0) Mean Corpuscular Hemoglobin Concent 29.4 G/DL (32.0-36.0) L Red Cell Distribution Width 15.8 % (11.6-14.8) H Platelet Count 405 K/UL (150-450) Mean Platelet Volume 5.8 FL (6.5-10.1) L Neutrophils (%) (Auto) 83.7 % (45.0-75.0) H Lymphocytes (%) (Auto) 10.4 % (20.0-45.0) L Monocytes (%) (Auto) 5.1 % (1.0-10.0) Eosinophils (%) (Auto) 0.1 % (0.0-3.0) Basophils (%) (Auto) 0.7 % (0.0-2.0) Prothrombin Time 11.4 SEC (9.30-11.50) Prothromb Time International Ratio 1.0 (0.9-1.1) Activated Partial Thromboplast Time 35 SEC (23-33) H Sodium Level 138 MMOL/L (136-145) Potassium Level 3.8 MMOL/L (3.5-5.1) Chloride Level 99 MMOL/L (98-107) Carbon Dioxide Level 35 MMOL/L (21-32) H Anion Gap 5 mmol/L (5-15) Blood Urea Nitrogen 20 mg/dL (7-18) H Creatinine 0.9 MG/DL (0.55-1.30) Estimat Glomerular Filtration Rate > 60 mL/min (>60) Glucose Level 215 MG/DL (74-106) H Calcium Level 7.4 MG/DL (8.5-10.1) L Arterial Blood pH 7.325 (7.350-7.450) Arterial Blood Partial Pressure CO2 71.4 mmHg (35.0-45.0) *H Arterial Blood Partial Pressure O2 90.3 mmHg (75.0-100.0) Arterial Blood HCO3 36.4 mmol/L (22.0-26.0) H Arterial Blood Oxygen Saturation 96.7 % (95-100) Arterial Blood Base Excess 8.4 (-2-2) H Bryan Test Positive Test 02/17/20 18:10 02/17/20 23:49 POC Whole Blood Glucose 217 MG/DL (74-106) H 122 MG/DL (74-106) H Assessment/Plan Assessment/Plan Stable for VATS with mildly increased anabella-op cardiovascular risk. Bacteremia due to lung mass and recurrent pulmonary infections. + risk for endocarditis, but increased risk for PORFIRIO. Acute MN Ac/chronic diastolic CHF Lung mass - prior benign biopsy Pneumonia with cavitation Mild-mod degenerative aortic stenosis Acute renal failure Pulmonary hypertension (est PAsyst 58mmHg) Hypertension with labile BP range. Anemia Dehydration/hypernatremia corrected IRDM with elevated glucose. Sinus bradycardia on beta rusty rx. Meds updated Will follow post-op Evans Trinidad MD Feb 18, 2020 03:51
[2020-02-18 04:00] VITALS: BP 168/87
--- NOTE | 2020-02-18 04:44 | NUR ---
NURSE NOTES: Patient has fever of 101.8 and BP of 168/87. Tylenol and Clonodine given as ordered.
[2020-02-18] MEDS: NovoLOG Insulin Flexpen SUBQ SCH ×4 (06:16→23:33)
--- NOTE | 2020-02-18 07:22 | NUR ---
NURSE HAND-OFF REPORT: Important Events on Shift:[Patient had fever x1] Patient Status: [Full code] Diet: [CCHO Medium] Pending Orders: [Consent form] Pending Results/Labs:[] Pending MD notification:[] Latest Vital Signs: Temperature 100.9 , Pulse 123 , B/P 168 /87 , Respiratory Rate 24 , O2 SAT 100 , Bi-pap, O2 Flow Rate 15.0 . Vital Sign Comment: [] EKG Rhythm: Sinus Tachycardia Rhythm change?: N MD Notified?: Jay -dr. navarro HERNANDES Response: Latest Pineda Fall Score: 35 Fall Risk: Medium Risk Safety Measures: Call light Within Reach, Bed Alarm Zone 1, Side Rails Side Rails x3, Bed position Low and Locked. Fall Precautions: Yellow Socks Yellow Gown Door Sign Patient Fall Education Report given to [JO-ANN Ortega].
--- NOTE | 2020-02-18 07:42 | NUR ---
NURSE NOTES: Receive report from Lena/RN. Pt sleeping in semi-fowlers position. On continuos Bi-Pap. IV on right hand 22G TKO, patent and clean. Bed in the lowest position and locked, call light within reach, encouraged to use it when needed. Side rails up X3. Will continue plan of care.
[2020-02-18 08:00] VITALS: BP 124/76
[2020-02-18] MEDS: Enoxaparin 80mg Inj SUBQ SCH ×2 (09:10→21:10)
[2020-02-18] MEDS: Levemir Flexpen SUBQ SCH ×2 (09:11→17:23)
[2020-02-18] MEDS: Imdur 30mg tab ORAL SCH (09:12)
[2020-02-18] MEDS: Aspirin Baby 81mg ORAL SCH (09:12)
[2020-02-18 09:14] LABS: BASOPHILS % (AUTO) 0.3 % (0.0-2.0); EOSINOPHILS % (AUTO) 0.8 % (0.0-3.0); HEMATOCRIT 29.8 % (37.0-47.0); HEMOGLOBIN 8.7 G/DL (12.0-16.0); LYMPHOCYTES % (AUTO) 14.5 % (20.0-45.0); MEAN CORPUSCULAR VOLUME 97 FL (80-99); MONOCYTES % (AUTO) 3.7 % (1.0-10.0); NEUTROPHILS % (AUTO) 80.7 % (45.0-75.0); PLATELET COUNT 357 K/UL (150-450); RED BLOOD COUNT 3.08 M/UL (4.20-5.40); RED CELL DISTRIBUTION WIDTH 15.3 % (11.6-14.8); WHITE BLOOD COUNT 7.6 K/UL (4.8-10.8)
[2020-02-18 09:44] LABS: INR 1.1 (0.9-1.1)
[2020-02-18 09:49] LABS: ANION GAP 4 mmol/L (5-15); BLOOD UREA NITROGEN 21 mg/dL (7-18); CARBON DIOXIDE 34 MMOL/L (21-32); CHLORIDE 102 MMOL/L (98-107); CREATININE 1.1 MG/DL (0.55-1.30); POTASSIUM 3.8 MMOL/L (3.5-5.1); SODIUM 139 MMOL/L (136-145)
--- NOTE | 2020-02-18 10:00 | Critical Care Progress Note ---
Assessment/Plan Assessment/Plan IMPRESSION acute respiratory failure leukocytosis sepsis ARF toxic met encephalopathy COPD DM poor control cavitary lesion negative AFB groundglass infiltrates NSTEMI severe PCM hypertension left shoulder pain bacteremia MRSA hematuria PLAN HOLD HEPARIN for surgery antibiotics per ID VATS wednesday cardiology follow up and clearance BIPAP titrate BP meds diurese ABLE anxious; on ativan not improved need to assess underlying lung abnormality impression, plan, and exam edited and reviewed in detail care discussed with sales development consultant - Subjective Interval Events: retaining CO2 hypoxemia not responding to diuresis EKG Rhythm: Sinus Rhythm I&O: Intake and Output 02/17/20 02/18/20 19:00 07:00 Intake Total 300 ml Output Total 1200 ml 450 ml Balance -1200 ml -150 ml Intake Oral 300 ml Output Urine Total 1200 ml 450 ml # Voids 2 # Bowel Movements 3 Critical Care - Objective Last 24 Hour Vital Signs Date Time Temp Pulse Resp B/P (MAP) Pulse Ox O2 Delivery O2 Flow Rate FiO2 02/18/20 09:12 94 124/76 02/18/20 09:12 124/76 02/18/20 09:12 94 124/76 02/18/20 08:00 98.8 94 24 124/76 (92) 100 02/18/20 07:02 100 Bi-Pap 100 02/18/20 07:02 102 18 100 100 02/18/20 07:02 107 18 100 Bi-Pap 100 02/18/20 04:49 100.9 02/18/20 04:20 168/87 02/18/20 04:00 101.8 115 24 168/87 (114) 100 02/18/20 04:00 123 02/18/20 03:00 98 25 100 100 02/18/20 00:00 103 02/18/20 00:00 99.0 101 24 151/86 (107) 100 02/17/20 23:28 96 24 100 100 02/17/20 22:11 100 131/71 02/17/20 21:13 104 26 100 100 02/17/20 21:12 97 Non-Rebreather 15.0 100 02/17/20 21:12 104 20 100 Bi-Pap 100 02/17/20 21:00 Bi-pap 10.0 02/17/20 20:00 100 02/17/20 20:00 98.6 100 24 131/71 (91) 100 02/17/20 19:14 102 20 159/84 98 02/17/20 18:44 102 20 159/84 98 02/17/20 18:43 159/84 02/17/20 16:00 102 02/17/20 16:00 97.7 101 20 159/84 (109) 98 02/17/20 12:00 106 02/17/20 12:00 97.9 109 20 158/90 (112) 99 Labs: Laboratory Tests 02/17/20 11:54: POC Whole Blood Glucose 229H 02/17/20 12:50: White Blood Count 7.4, Red Blood Count 3.37L, Hemoglobin 9.6L, Hematocrit 32.6L, Mean Corpuscular Volume 97, Mean Corpuscular Hemoglobin 28.4, Mean Corpuscular Hemoglobin Concent 29.4L, Red Cell Distribution Width 15.8H, Platelet Count 405, Mean Platelet Volume 5.8L, Neutrophils (%) (Auto) 83.7H, Lymphocytes (%) (Auto) 10.4L, Monocytes (%) (Auto) 5.1, Eosinophils (%) (Auto) 0.1, Basophils (%) (Auto) 0.7, Prothrombin Time 11.4, Prothromb Time International Ratio 1.0, Activated Partial Thromboplast Time 35H, Sodium Level 138, Potassium Level 3.8, Chloride Level 99, Carbon Dioxide Level 35H, Anion Gap 5, Blood Urea Nitrogen 20H, Creatinine 0.9, Estimat Glomerular Filtration Rate > 60, Glucose Level 215H , Calcium Level 7.4L 02/17/20 16:20: Arterial Blood pH 7.325L, Arterial Blood Partial Pressure CO2 71.4*H, Arterial Blood Partial Pressure O2 90.3, Arterial Blood HCO3 36.4H, Arterial Blood Oxygen Saturation 96.7, Arterial Blood Base Excess 8.4H, Bryan Test Positive 02/17/20 18:10: POC Whole Blood Glucose 217H 02/17/20 23:49: POC Whole Blood Glucose 122H 02/18/20 05:54: POC Whole Blood Glucose 200H 02/18/20 07:55: White Blood Count 7.6, Red Blood Count 3.08L, Hemoglobin 8.7L, Hematocrit 29.8L, Mean Corpuscular Volume 97, Mean Corpuscular Hemoglobin 28.3, Mean Corpuscular Hemoglobin Concent 29.3L, Red Cell Distribution Width 15.3H, Platelet Count 357, Mean Platelet Volume 5.6L, Neutrophils (%) (Auto) 80.7H, Lymphocytes (%) (Auto) 14.5L, Monocytes (%) (Auto) 3.7, Eosinophils (%) (Auto) 0.8, Basophils (%) (Auto ) 0.3, Prothrombin Time 11.7H, Prothromb Time International Ratio 1.1, Activated Partial Thromboplast Time 35H, Sodium Level 139, Potassium Level 3.8, Chloride Level 102, Carbon Dioxide Level 34H, Anion Gap 4L, Blood Urea Nitrogen 21H, Creatinine 1.1, Estimat Glomerular Filtration Rate > 60, Glucose Level 132H, Calcium Level 8.0L, Magnesium Level [Pending], Pro-B-Type Natriuretic Peptide [Pending] Objective: WDWN ill appearing on BIPAP reduced breath sounds bilaterally coarse [id number] without MRG NABS nontender no HSM no CC leg edema nonfocal Accucheck: 200 Germán Feliz MD Feb 18, 2020 10:00
[2020-02-18] MEDS: Methocarbamol 500mg tab ORAL PRN ×2 (10:50→21:09)
[2020-02-18] MEDS: HYDROcodone/Acetamin 10/325 tab ORAL PRN ×2 (10:50→17:38)
--- NOTE | 2020-02-18 10:57 | General Progress Note ---
Subjective Date patient seen: Feb 18, 2020 Time patient seen: 09:45 - am Allergies: Coded Allergies: No Known Allergies (Unverified , 07/30/15) Subjective HISTORY OF PRESENT ILLNESS: This is a 59-year-old female who is being seen on the tele floor of [facility]. Patient is in bed was placed on Bipap due to abnormal ABG. Pain has been tolerated on the Gary. No new complaints at this time. REVIEW OF SYSTEMS: Denies rash, fever, chills, sweating, dizziness, drowsiness, sore throat, or change in her weight. No nausea, vomiting, diarrhea, blood in the stool or urine. No dysuria. Objective Last 24 Hour Vital Signs Date Time Temp Pulse Resp B/P (MAP) Pulse Ox O2 Delivery O2 Flow Rate FiO2 02/18/20 09:12 94 124/76 02/18/20 09:12 124/76 02/18/20 09:12 94 124/76 02/18/20 08:00 98.8 94 24 124/76 (92) 100 02/18/20 07:02 100 Bi-Pap 100 02/18/20 07:02 102 18 100 100 02/18/20 07:02 107 18 100 Bi-Pap 100 02/18/20 04:49 100.9 02/18/20 04:20 168/87 02/18/20 04:00 101.8 115 24 168/87 (114) 100 02/18/20 04:00 123 02/18/20 03:00 98 25 100 100 02/18/20 00:00 103 02/18/20 00:00 99.0 101 24 151/86 (107) 100 02/17/20 23:28 96 24 100 100 02/17/20 22:11 100 131/71 02/17/20 21:13 104 26 100 100 02/17/20 21:12 97 Non-Rebreather 15.0 100 02/17/20 21:12 104 20 100 Bi-Pap 100 02/17/20 21:00 Bi-pap 10.0 02/17/20 20:00 100 02/17/20 20:00 98.6 100 24 131/71 (91) 100 02/17/20 19:14 102 20 159/84 98 02/17/20 18:44 102 20 159/84 98 02/17/20 18:43 159/84 02/17/20 16:00 102 02/17/20 16:00 97.7 101 20 159/84 (109) 98 02/17/20 12:00 106 02/17/20 12:00 97.9 109 20 158/90 (112) 99 Intake and Output 02/17/20 02/18/20 19:00 07:00 Intake Total 300 ml Output Total 1200 ml 450 ml Balance -1200 ml -150 ml Intake Oral 300 ml Output Urine Total 1200 ml 450 ml # Voids 2 # Bowel Movements 3 Laboratory Tests 02/17/20 11:54: POC Whole Blood Glucose 229H 02/17/20 12:50: White Blood Count 7.4, Red Blood Count 3.37L, Hemoglobin 9.6L, Hematocrit 32.6L, Mean Corpuscular Volume 97, Mean Corpuscular Hemoglobin 28.4, Mean Corpuscular Hemoglobin Concent 29.4L, Red Cell Distribution Width 15.8H, Platelet Count 405, Mean Platelet Volume 5.8L, Neutrophils (%) (Auto) 83.7H, Lymphocytes (%) (Auto) 10.4L, Monocytes (%) (Auto) 5.1, Eosinophils (%) (Auto) 0.1, Basophils (%) (Auto) 0.7, Prothrombin Time 11.4, Prothromb Time International Ratio 1.0, Activated Partial Thromboplast Time 35H, Sodium Level 138, Potassium Level 3.8, Chloride Level 99, Carbon Dioxide Level 35H, Anion Gap 5, Blood Urea Nitrogen 20H, Creatinine 0.9, Estimat Glomerular Filtration Rate > 60, Glucose Level 215H , Calcium Level 7.4L 02/17/20 16:20: Arterial Blood pH 7.325L, Arterial Blood Partial Pressure CO2 71.4*H, Arterial Blood Partial Pressure O2 90.3, Arterial Blood HCO3 36.4H, Arterial Blood Oxygen Saturation 96.7, Arterial Blood Base Excess 8.4H, Bryan Test Positive 02/17/20 18:10: POC Whole Blood Glucose 217H 02/17/20 23:49: POC Whole Blood Glucose 122H 02/18/20 05:54: POC Whole Blood Glucose 200H 02/18/20 07:55: White Blood Count 7.6, Red Blood Count 3.08L, Hemoglobin 8.7L, Hematocrit 29.8L, Mean Corpuscular Volume 97, Mean Corpuscular Hemoglobin 28.3, Mean Corpuscular Hemoglobin Concent 29.3L, Red Cell Distribution Width 15.3H, Platelet Count 357, Mean Platelet Volume 5.6L, Neutrophils (%) (Auto) 80.7H, Lymphocytes (%) (Auto) 14.5L, Monocytes (%) (Auto) 3.7, Eosinophils (%) (Auto) 0.8, Basophils (%) (Auto) 0.3, Prothrombin Time 11.7H, Prothromb Time International Ratio 1.1, Activated Partial Thromboplast Time 35H, Sodium Level 139, Potassium Level 3.8, Chloride Level 102, Carbon Dioxide Level 34H, Anion Gap 4L, Blood Urea Nitrogen 21H, Creatinine 1.1, Estimat Glomerular Filtration Rate > 60, Glucose Level 132H , Calcium Level 8.0L, Magnesium Level 1.6L, Pro-B-Type Natriuretic Peptide 8329H 02/18/20 10:37: Arterial Blood pH 7.345L, Arterial Blood Partial Pressure CO2 61.9*H, Arterial Blood Partial Pressure O2 111.0H, Arterial Blood HCO3 33.0H, Arterial Blood Oxygen Saturation 98.6, Arterial Blood Base Excess 6.2H, Bryan Test Positive Height (Feet): 5 Height (Inches): 1.00 Weight (Pounds): 168 Objective PHYSICAL EXAMINATION: GENERAL: Alert, awake, and oriented. LUNGS: Decreased breath sounds bilaterally. HEART: S1 and S2 regular. ABDOMEN: Obese. EXTREMITIES: No cyanosis. No clubbing. NEURO: No changes. Assessment/Plan Assessment/Plan: (1) Cervical DDD (2) Cervical Spondylosis Patient to be continued on Gary, Neurontin, Robaxin and Lidocaine patch. D/w Dr. Landa and he concurred. Monster Corey Feb 18, 2020 10:57
--- NOTE | 2020-02-18 11:04 | Infectious Diseases Prog Note ---
Assessment/Plan Assessment/Plan antibiotics : vancomycin iv A 1. MRSA cavitary pneumonia sputum AFB negative x 3 2. MRSA sepsis r/o endocarditis 3. diabetes mellitus 4. hypertension 5. COPD 6. respiratory failure 7. aortic stenosis P 1. continue iv vancomcyin 25 more days 2. start zosyn 3. will follow up cultures 4. bronchoscopy with biopsy planned Subjective Constitutional: Denies: fever, chills Respiratory: Reports: shortness of breath; Denies: dry cough, productive cough Musculoskeletal: Reports: pain Allergies: Coded Allergies: No Known Allergies (Unverified , 07/30/15) Objective Last 24 Hour Vital Signs Date Time Temp Pulse Resp B/P (MAP) Pulse Ox O2 Delivery O2 Flow Rate FiO2 02/18/20 09:12 94 124/76 02/18/20 09:12 124/76 02/18/20 09:12 94 124/76 02/18/20 08:00 98.8 94 24 124/76 (92) 100 02/18/20 07:02 100 Bi-Pap 100 02/18/20 07:02 102 18 100 100 02/18/20 07:02 107 18 100 Bi-Pap 100 02/18/20 04:49 100.9 02/18/20 04:20 168/87 02/18/20 04:00 101.8 115 24 168/87 (114) 100 02/18/20 04:00 123 02/18/20 03:00 98 25 100 100 02/18/20 00:00 103 02/18/20 00:00 99.0 101 24 151/86 (107) 100 02/17/20 23:28 96 24 100 100 02/17/20 22:11 100 131/71 02/17/20 21:13 104 26 100 100 02/17/20 21:12 97 Non-Rebreather 15.0 100 02/17/20 21:12 104 20 100 Bi-Pap 100 02/17/20 21:00 Bi-pap 10.0 02/17/20 20:00 100 02/17/20 20:00 98.6 100 24 131/71 (91) 100 02/17/20 19:14 102 20 159/84 98 02/17/20 18:44 102 20 159/84 98 02/17/20 18:43 159/84 11/21/20 16:00 102 02/17/20 16:00 97.7 101 20 159/84 (109) 98 02/17/20 12:00 106 02/17/20 12:00 97.9 109 20 158/90 (112) 99 Height (Feet): 5 Height (Inches): 1.00 Weight (Pounds): 168 HEENT: other - on bipap Respiratory/Chest: lungs clear Cardiovascular: normal rate, regular rhythm, no gallop/murmur Abdomen: soft, non tender Extremities: no edema Laboratory Tests Test 02/17/20 11:54 02/17/20 12:50 02/17/20 16:20 02/17/20 18:10 POC Whole Blood Glucose 229 MG/DL (74-106) H 217 MG/DL (74-106) H White Blood Count 7.4 K/UL (4.8-10.8) Red Blood Count 3.37 M/UL (4.20-5.40) L Hemoglobin 9.6 G/DL (12.0-16.0) L Hematocrit 32.6 % (37.0-47.0) L Mean Corpuscular Volume 97 FL (80-99) Mean Corpuscular Hemoglobin 28.4 PG (27.0-31.0) Mean Corpuscular Hemoglobin Concent 29.4 G/DL (32.0-36.0) L Red Cell Distribution Width 15.8 % (11.6-14.8) H Platelet Count 405 K/UL (150-450) Mean Platelet Volume 5.8 FL (6.5-10.1) L Neutrophils (%) (Auto) 83.7 % (45.0-75.0) H Lymphocytes (%) (Auto) 10.4 % (20.0-45.0) L Monocytes (%) (Auto) 5.1 % (1.0-10.0) Eosinophils (%) (Auto) 0.1 % (0.0-3.0) Basophils (%) (Auto) 0.7 % (0.0-2.0) Prothrombin Time 11.4 SEC (9.30-11.50) Prothromb Time International Ratio 1.0 (0.9-1.1) Activated Partial Thromboplast Time 35 SEC (23-33) H Sodium Level 138 MMOL/L (136-145) Potassium Level 3.8 MMOL/L (3.5-5.1) Chloride Level 99 MMOL/L (98-107) Carbon Dioxide Level 35 MMOL/L (21-32) H Anion Gap 5 mmol/L (5-15) Blood Urea Nitrogen 20 mg/dL (7-18) H Creatinine 0.9 MG/DL (0.55-1.30) Estimat Glomerular Filtration Rate > 60 mL/min (>60) Glucose Level 215 MG/DL (74-106) H Calcium Level 7.4 MG/DL (8.5-10.1) L Arterial Blood pH 7.325 (7.350-7.450) Arterial Blood Partial Pressure CO2 71.4 mmHg (35.0-45.0) *H Arterial Blood Partial Pressure O2 90.3 mmHg (75.0-100.0) Arterial Blood HCO3 36.4 mmol/L (22.0-26.0) H Arterial Blood Oxygen Saturation 96.7 % (95-100) Arterial Blood Base Excess 8.4 (-2-2) H Bryan Test Positive Test 02/17/20 23:49 02/18/20 05:54 02/18/20 07:55 02/18/20 10:37 POC Whole Blood Glucose 122 MG/DL (74-106) H 200 MG/DL (74-106) H White Blood Count 7.6 K/UL (4.8-10.8) Red Blood Count 3.08 M/UL (4.20-5.40) L Hemoglobin 8.7 G/DL (12.0-16.0) L Hematocrit 29.8 % (37.0-47.0) L Mean Corpuscular Volume 97 FL (80-99) Mean Corpuscular Hemoglobin 28.3 PG (27.0-31.0) Mean Corpuscular Hemoglobin Concent 29.3 G/DL (32.0-36.0) L Red Cell Distribution Width 15.3 % (11.6-14.8) H Platelet Count 357 K/UL (150-450) Mean Platelet Volume 5.6 FL (6.5-10.1) L Neutrophils (%) (Auto) 80.7 % (45.0-75.0) H Lymphocytes (%) (Auto) 14.5 % (20.0-45.0) L Monocytes (%) (Auto) 3.7 % (1.0-10.0) Eosinophils (%) (Auto) 0.8 % (0.0-3.0) Basophils (%) (Auto) 0.3 % (0.0-2.0) Prothrombin Time 11.7 SEC (9.30-11.50) H Prothromb Time International Ratio 1.1 (0.9-1.1) Activated Partial Thromboplast Time 35 SEC (23-33) H Sodium Level 139 MMOL/L (136-145) Potassium Level 3.8 MMOL/L (3.5-5.1) Chloride Level 102 MMOL/L (98-107) Carbon Dioxide Level 34 MMOL/L (21-32) H Anion Gap 4 mmol/L (5-15) L Blood Urea Nitrogen 21 mg/dL (7-18) H Creatinine 1.1 MG/DL (0.55-1.30) Estimat Glomerular Filtration Rate > 60 mL/min (>60) Glucose Level 132 MG/DL (74-106) H Calcium Level 8.0 MG/DL (8.5-10.1) L Magnesium Level 1.6 MG/DL (1.8-2.4) L Pro-B-Type Natriuretic Peptide 8329 pg/mL (0-125) H Arterial Blood pH 7.345 (7.350-7.450) Arterial Blood Partial Pressure CO2 61.9 mmHg (35.0-45.0) *H Arterial Blood Partial Pressure O2 111.0 mmHg (75.0-100.0) H Arterial Blood HCO3 33.0 mmol/L (22.0-26.0) H Arterial Blood Oxygen Saturation 98.6 % (95-100) Arterial Blood Base Excess 6.2 (-2-2) H Bryan Test Positive Current Medications Medications (Trade) Dose Ordered Sig/Ivana Route PRN Reason Start Time Stop Time Status Last Admin Dose Admin Acetaminophen (Tylenol) 650 mg Q6H PRN ORAL MILD PAIN, FEVER 01/28/20 22:45 02/27/20 22:44 02/18/20 04:19 Acetaminophen/ Hydrocodone Bitart (Erving 10/325) 1 tab Q4H PRN ORAL Moderate Pain (Pain Scale 4-6) 02/15/20 09:45 02/22/20 09:44 02/18/20 10:50 Amlodipine Besylate (Norvasc) 10 mg DAILY ORAL 02/01/20 09:00 03/02/20 08:59 02/18/20 09:12 Aspirin (ASA) 81 mg DAILY ORAL 02/14/20 09:00 03/30/20 08:59 02/18/20 09:12 Clonidine HCl (Catapres Tab) 0.1 mg Q4H PRN ORAL SBP > 150mmHg 02/06/20 07:00 05/06/20 06:59 02/18/20 04:20 Dextrose (Dextrose 50%) 25 ml Q30M PRN IV Hypoglycemia 01/28/20 22:45 04/27/20 22:44 Dextrose (Dextrose 50%) 50 ml Q30M PRN IV Hypoglycemia 01/28/20 22:45 04/27/20 22:44 Enoxaparin Sodium (Lovenox) 80 mg Q12HR SUBQ 02/13/20 18:54 05/13/20 18:53 02/18/20 09:10 Epoetin Haseeb (Epoetin Haseeb-EPBX(NON ESRD)) 8,000 unit WED-WED-WED SUBQ 02/05/20 21:00 05/05/20 20:59 02/16/20 23:35 Gabapentin (Neurontin) 300 mg THREE TIMES A DAY ORAL 02/11/20 09:30 03/12/20 09:29 02/18/20 09:12 Guaifenesin/ Dextromethorphan (Robitussin DM Syrup) 15 ml Q4H PRN ORAL For Cough 02/12/20 16:53 05/12/20 16:52 02/17/20 15:20 Insulin Aspart (NovoLOG) Q6HR SUBQ 01/29/20 00:00 04/28/20 00:00 02/18/20 06:16 Insulin Detemir (Levemir) 10 units BID SUBQ 02/08/20 18:00 05/04/20 17:59 02/18/20 09:11 Ipratropium [place] (Atrovent) 500 mcg Q4H PRN HHN Shortness of Breath 02/17/20 15:15 02/22/20 15:14 Isosorbide Mononitrate (Imdur) 30 mg DAILY ORAL 02/02/20 09:00 03/03/20 08:59 02/18/20 09:12 Lidocaine (Lidoderm 5% PATCH) 1 patch DAILY TDERMAL 02/11/20 09:30 05/11/20 09:29 02/18/20 09:12 Lorazepam (Ativan) 1 mg Q4H PRN ORAL For Anxiety 02/14/20 20:15 02/21/20 20:14 02/17/20 18:44 Methocarbamol (Robaxin) 500 mg Q8H PRN ORAL muscle spasm 02/11/20 09:30 03/12/20 09:29 02/18/20 10:50 Metoprolol Tartrate (Lopressor) 25 mg Q12HR ORAL 02/04/20 21:00 05/04/20 20:59 02/18/20 09:12 Nitroglycerin (Ntg) 0.4 mg Q5M PRN SL Prn Chest Pain 02/01/20 08:00 03/02/20 07:59 02/03/20 06:17 Ondansetron HCl (Zofran) 4 mg Q6H PRN IVP Nausea & Vomiting 01/28/20 22:45 02/27/20 22:44 02/01/20 18:10 Pantoprazole (Protonix) 40 mg BIAC ORAL 02/16/20 16:30 03/17/20 16:29 02/18/20 06:14 Vancomycin HCl 300 ml @ 150 mls/hr Q24H IVPB 02/16/20 15:00 02/21/20 14:59 02/17/20 15:19 Vancomycin HCl (Vanco pharmacy to dose) 1 ea DAILY PRN MISC Per rx protocol 02/13/20 11:30 03/14/20 11:29 Messi Lopez MD Feb 18, 2020 11:04
[2020-02-18 12:00] VITALS: BP 172/97
--- NOTE | 2020-02-18 13:59 | NUR ---
CASE MANAGEMENT:REVIEW 02/18/20 SI: ACUTE RESPIRATORY FAILURE. NOW COVID POSITIVE SEPSIS D/T MRSA BACTEREMIA. NSTEMI 100.9 107 25 124/76 98% ON BIPAP W/100% FIO2 H/H-8.7/29.8 PH-7.34 PCO2+61.9 IS: IV VANCOMYCIN Q24 IV ZOSYN Q8HRS HHN Q4HRS IV LASIX QD ASA PO QD LOVENOX SQ Q12 LOPRESSOR PO Q12 IMDUR PO QD IV PROTONIX Q12 NORVASC PO QD : TELEMETRY STATUS DCP: FROM HOME PLAN: CONSENT FOR BRONCHOSCOPY W/RT LUNG BIOPSY WITH VATS
[2020-02-18] MEDS ORDERED: Piperacillin/Tazobactam 3.375 GM in NS 110 ML IVPB SCH (14:00)
[2020-02-18] MEDS ORDERED: Ipratropium 0.02% Inh Soln 2.5ml UD HHN SCH (15:15)
--- NOTE | 2020-02-18 15:22 | NUR ---
NURSE NOTES: Contacted primary Dr to let him know about pt Covid test result was positive, he ordered to put pt on isolation
[2020-02-18 16:00] VITALS: BP 143/82
--- NOTE | 2020-02-18 16:09 | General Progress Note ---
Subjective Allergies: Coded Allergies: No Known Allergies (Unverified , 07/30/15) Subjective Above noted no abdominal complaints for VATS this week Objective Last 24 Hour Vital Signs Date Time Temp Pulse Resp B/P (MAP) Pulse Ox O2 Delivery O2 Flow Rate FiO2 02/18/20 15:35 108 32 99 100 02/18/20 14:21 172/97 02/18/20 12:00 92 02/18/20 12:00 97.7 100 20 172/97 (122) 100 02/18/20 11:34 101 22 98 Bi-Pap 100 108 25 98 100 02/18/20 09:12 94 124/76 02/18/20 09:12 124/76 02/18/20 09:12 94 124/76 02/18/20 09:00 Bi-pap 10.0 02/18/20 08:00 95 02/18/20 08:00 98.8 94 24 124/76 (92) 100 02/18/20 07:02 100 Bi-Pap 100 02/18/20 07:02 102 18 100 100 02/18/20 07:02 107 18 100 Bi-Pap 100 02/18/20 04:49 100.9 02/18/20 04:20 168/87 02/18/20 04:00 101.8 115 24 168/87 (114) 100 02/18/20 04:00 123 02/18/20 03:00 98 25 100 100 02/18/20 00:00 103 02/18/20 00:00 99.0 101 24 151/86 (107) 100 02/17/20 23:28 96 24 100 100 02/17/20 22:11 100 131/71 02/17/20 21:13 104 26 100 100 02/17/20 21:12 97 Non-Rebreather 15.0 100 02/17/20 21:12 104 20 100 Bi-Pap 100 02/17/20 21:00 Bi-pap 10.0 02/17/20 20:00 100 02/17/20 20:00 98.6 100 24 131/71 (91) 100 02/17/20 19:14 102 20 159/84 98 02/17/20 18:44 102 20 159/84 98 02/17/20 18:43 159/84 Intake and Output 02/17/20 02/18/20 19:00 07:00 Intake Total 300 ml Output Total 1200 ml 450 ml Balance -1200 ml -150 ml Intake Oral 300 ml Output Urine Total 1200 ml 450 ml # Voids 2 # Bowel Movements 3 Laboratory Tests 02/17/20 16:20: Arterial Blood pH 7.325L, Arterial Blood Partial Pressure CO2 71.4*H, Arterial Blood Partial Pressure O2 90.3, Arterial Blood HCO3 36.4H, Arterial Blood Oxygen Saturation 96.7, Arterial Blood Base Excess 8.4H, Bryan Test Positive 02/17/20 18:10: POC Whole Blood Glucose 217H 02/17/20 23:49: POC Whole Blood Glucose 122H 02/18/20 05:54: POC Whole Blood Glucose 200H 02/18/20 07:55: White Blood Count 7.6, Red Blood Count 3.08L, Hemoglobin 8.7L, Hematocrit 29.8L, Mean Corpuscular Volume 97, Mean Corpuscular Hemoglobin 28.3, Mean Corpuscular Hemoglobin Concent 29.3L, Red Cell Distribution Width 15.3H, Platelet Count 357, Mean Platelet Volume 5.6L, Neutrophils (%) (Auto) 80.7H, Lymphocytes (%) (Auto) 14.5L, Monocytes (%) (Auto) 3.7, Eosinophils (%) (Auto) 0.8, Basophils (%) (Auto) 0.3, Prothrombin Time 11.7H, Prothromb Time International Ratio 1.1, Activated Partial Thromboplast Time 35H, Sodium Level 139, Potassium Level 3.8, Chloride Level 102, Carbon Dioxide Level 34H, Anion Gap 4L, Blood Urea Nitrogen 21H, Creatinine 1.1, Estimat Glomerular Filtration Rate > 60, Glucose Level 132H , Calcium Level 8.0L, Magnesium Level 1.6L, Aspartate Amino Transf (AST/SGOT) [Pending], Alanine Aminotransferase (ALT/SGPT) [Pending], Pro-B-Type Natriuretic Peptide 8329H 02/18/20 10:37: Arterial Blood pH 7.345L, Arterial Blood Partial Pressure CO2 61.9*H, Arterial Blood Partial Pressure O2 111.0H, Arterial Blood HCO3 33.0H, Arterial Blood Oxygen Saturation 98.6, Arterial Blood Base Excess 6.2H, Bryan Test Positive 02/18/20 12:00: POC Whole Blood Glucose 130H Height (Feet): 5 Height (Inches): 1.00 Weight (Pounds): 168 Objective WDWN NCAT supple CTA RR Abd soft ND mild edema Assessment/Plan Assessment/Plan: Assessment - hepatitis C with nodular liver, PCR (+) - constipation - resolved - Swallowing Sx - resolved - HTN - COPD - Lung mass - DM - PSVT - anemia Recommendations - po as tolerated - follow LFT - PPI - Elevate HOB - outpatient HCV eradication - laxative PRN - Outpatient colonoscopy once recovered from current illness Feliberto Pérez MD Feb 18, 2020 16:09
[2020-02-18] MEDS: Vancomycin 1.5gm/300ml Premix 300 ML IVPB SCH (17:21)
[2020-02-18] MEDS: Ipratropium Bromide Inhaler INH SCH ×2 (17:51→21:11)
[2020-02-18] MEDS ORDERED: Loading Dose:Remdesivir 200mg/NS 210ml IV SCH ×2 (18:00)
--- NOTE | 2020-02-18 19:35 | NUR ---
NURSE HAND-OFF REPORT: Important Events on Shift:Pt positive for covid-19 today. Continuos Bi-pap. Patient Status: Stable Diet: CCHO medium Pending Orders: Pending Results/Labs: Pending MD notification: Latest Vital Signs: Temperature 97.9 , Pulse 103 , B/P 143 /82 , Respiratory Rate 20 , O2 SAT 100 , Bi-pap, O2 Flow Rate 10.0 . Vital Sign Comment: EKG Rhythm: Sinus Tachycardia Rhythm change?: N MD Notified?: Jay briceño MD Response: Latest Pineda Fall Score: 35 Fall Risk: Medium Risk Safety Measures: Call light Within Reach, Bed Alarm Zone 1, Side Rails Side Rails x3, Bed position Low and Locked. Fall Precautions: Yellow Socks Yellow Gown Door Sign Patient Fall Education Report given to Margo/RN.
--- NOTE | 2020-02-18 19:40 | NUR ---
NURSE NOTES: Report received from JO-ANN Coello. Patient is awake on bed, alert and oriented x 4. quality assurance monitor final is on, shows sinus tachycardia with no chest pain reported. On CCHO (Medium), thin liquids and can swallow whole pills. On oxygen via BIPAP, set up of IPAP 15, EPAP of 8. With Flores catheter f-16, drained via gravity. IV site is on right hand g-22 saline locked that is patent and intact. Safety measures are in place, bed in lowest and locked position, side rails up x 2, call light button and bedside table within reach, instructed to call for any assistance needed. Will continue plan of care.
[2020-02-18 20:00] VITALS: BP 137/89
--- NOTE | 2020-02-18 22:05 | NUR ---
TRANSFER TO FLOOR: Patient transferred to 2W room 237, per bed. Report given to Waylon, RN. Belongings and medications given to receiving rn. Patient's daughter "Sandra" was informed of transfer. At this time patient is in stable condition with no complaints made, plan of care endorsed.
--- NOTE | 2020-02-18 22:10 | NUR ---
NURSE NOTES: Received report and patient from JO-ANN Aragon. Pt awake in bed, alert adn oriented x 4, afebrile and has no respiratory distress noted. Pt able to communicate and verbalize not in any discomfort. On continuous BIPAP 15/8 fi O2 36% pt saturating at 99-100%. With Right hand 22 g intact, patent and asymptomatic. With Flores catheter to urine bag drainign light warren yellow. Body assessment done. Sacral and both heels covered with Optifoam for protection only. skin cahnges noted. Needs were attended. Call light within reach. Bed rails are up and wheels are locked. Continue plan of care
[2020-02-19] VITALS: BP 120/66
--- NOTE | 2020-02-19 00:24 | Cardiology Progress Note ---
Subjective DATE OF SERVICE: Feb 18, 2020 Maintaining negative fluid balance with current diuretic dosing. Less congestion and SOB. O2 requirements decreasing. ABG (02/18/20) 7.34/62/111 2D Echo reviewed - EF 45%, severe pulmonary hypertension, mild-moderate AV stenosis with ESTHER 1.5cm2 CXR (02/02) with cavitary lesion and mild congestive changes. Objective Last 24 Hour Vital Signs Date Time Temp Pulse Resp B/P (MAP) Pulse Ox O2 Delivery O2 Flow Rate FiO2 02/19/20 00:00 Bi-pap 10.0 02/19/20 00:00 98.2 81 22 120/66 (84) 98 02/18/20 21:10 108 137/89 02/18/20 21:00 Bi-pap 10.0 02/18/20 20:00 109 02/18/20 20:00 99.0 108 22 137/89 (105) 98 02/18/20 19:00 102 28 98 100 02/18/20 19:00 100 Bi-Pap 100 02/18/20 19:00 101 28 99 Bi-Pap 100 02/18/20 16:00 97.9 105 20 143/82 (102) 100 02/18/20 16:00 103 02/18/20 15:35 108 32 99 100 02/18/20 14:21 172/97 02/18/20 12:00 92 02/18/20 12:00 97.7 100 20 172/97 (122) 100 02/18/20 11:34 101 22 98 Bi-Pap 100 108 25 98 100 02/18/20 09:12 94 124/76 02/18/20 09:12 124/76 02/18/20 09:12 94 124/76 02/18/20 09:00 Bi-pap 10.0 02/18/20 08:00 95 02/18/20 08:00 98.8 94 24 124/76 (92) 100 02/18/20 07:02 100 Bi-Pap 100 02/18/20 07:02 102 18 100 100 02/18/20 07:02 107 18 100 Bi-Pap 100 02/18/20 04:49 100.9 02/18/20 04:20 168/87 02/18/20 04:00 101.8 115 24 168/87 (114) 100 02/18/20 04:00 123 02/18/20 03:00 98 25 100 100 HEENT: normal ENT inspection RHYTHM: NSR LUNGS: bilat. rhonchi and rales CARDIAC: systolic murmur - 1/6 at base ABDOMEN: normal bowel sounds, non tender, soft EXTREMITIES: normal range of motion, non-pitting Laboratory Tests Test 02/18/20 05:54 02/18/20 07:55 02/18/20 10:37 02/18/20 12:00 POC Whole Blood Glucose 200 MG/DL (74-106) H 130 MG/DL (74-106) H White Blood Count 7.6 K/UL (4.8-10.8) Red Blood Count 3.08 M/UL (4.20-5.40) L Hemoglobin 8.7 G/DL (12.0-16.0) L Hematocrit 29.8 % (37.0-47.0) L Mean Corpuscular Volume 97 FL (80-99) Mean Corpuscular Hemoglobin 28.3 PG (27.0-31.0) Mean Corpuscular Hemoglobin Concent 29.3 G/DL (32.0-36.0) L Red Cell Distribution Width 15.3 % (11.6-14.8) H Platelet Count 357 K/UL (150-450) Mean Platelet Volume 5.6 FL (6.5-10.1) L Neutrophils (%) (Auto) 80.7 % (45.0-75.0) H Lymphocytes (%) (Auto) 14.5 % (20.0-45.0) L Monocytes (%) (Auto) 3.7 % (1.0-10.0) Eosinophils (%) (Auto) 0.8 % (0.0-3.0) Basophils (%) (Auto) 0.3 % (0.0-2.0) Prothrombin Time 11.7 SEC (9.30-11.50) H Prothromb Time International Ratio 1.1 (0.9-1.1) Activated Partial Thromboplast Time 35 SEC (23-33) H Sodium Level 139 MMOL/L (136-145) Potassium Level 3.8 MMOL/L (3.5-5.1) Chloride Level 102 MMOL/L (98-107) Carbon Dioxide Level 34 MMOL/L (21-32) H Anion Gap 4 mmol/L (5-15) L Blood Urea Nitrogen 21 mg/dL (7-18) H Creatinine 1.1 MG/DL (0.55-1.30) Estimat Glomerular Filtration Rate > 60 mL/min (>60) Glucose Level 132 MG/DL (74-106) H Calcium Level 8.0 MG/DL (8.5-10.1) L Magnesium Level 1.6 MG/DL (1.8-2.4) L Aspartate Amino Transf (AST/SGOT) 51 U/L (15-37) H Alanine Aminotransferase (ALT/SGPT) 23 U/L (12-78) Pro-B-Type Natriuretic Peptide 8329 pg/mL (0-125) H Arterial Blood pH 7.345 (7.350-7.450) Arterial Blood Partial Pressure CO2 61.9 mmHg (35.0-45.0) *H Arterial Blood Partial Pressure O2 111.0 mmHg (75.0-100.0) H Arterial Blood HCO3 33.0 mmol/L (22.0-26.0) H Arterial Blood Oxygen Saturation 98.6 % (95-100) Arterial Blood Base Excess 6.2 (-2-2) H Bryan Test Positive Test 02/18/20 16:39 02/18/20 23:28 POC Whole Blood Glucose 188 MG/DL (74-106) H 251 MG/DL (74-106) H Microbiology Date/Time Source Procedure Growth Status 02/18/20 11:24 Nasopharynx SARS-CoV-2 RdRp Gene Assay - Final Complete Assessment/Plan Assessment/Plan Stable for VATS with mildly increased anabella-op cardiovascular risk. Bacteremia due to lung mass and recurrent pulmonary infections. + risk for endocarditis, but increased risk for PORFIRIO. Acute VT Ac/chronic diastolic CHF Lung mass - prior benign biopsy Pneumonia with cavitation Mild-mod degenerative aortic stenosis Acute renal failure Pulmonary hypertension (est PAsyst 58mmHg) Hypertension with labile BP range. Anemia Dehydration/hypernatremia corrected IRDM with elevated glucose. Sinus bradycardia on beta rusty rx. Meds updated Will follow post-op Evans Trinidad MD Feb 19, 2020 00:24
[2020-02-19] MEDS: Ipratropium Bromide Inhaler INH SCH ×6 (02:00→22:09)
[2020-02-19 04:00] VITALS: BP 118/72
[2020-02-19] MEDS: NovoLOG Insulin Flexpen SUBQ SCH ×3 (06:06→18:08)
[2020-02-19 06:28] LABS: HEMATOCRIT 28.7 % (37.0-47.0); HEMOGLOBIN 8.3 G/DL (12.0-16.0); MEAN CORPUSCULAR VOLUME 96 FL (80-99); PLATELET COUNT 387 K/UL (150-450); RED BLOOD COUNT 2.98 M/UL (4.20-5.40); RED CELL DISTRIBUTION WIDTH 15.5 % (11.6-14.8); WHITE BLOOD COUNT 5.7 K/UL (4.8-10.8)
[2020-02-19 06:46] LABS: ALBUMIN 1.5 G/DL (3.4-5.0); ALBUMIN/GLOBULIN RATIO 0.3 (1.0-2.7); BILIRUBIN,DIRECT 0.2 MG/DL (0.0-0.3); BILIRUBIN,TOTAL 0.3 MG/DL (0.2-1.0); CREATININE 1.4 MG/DL (0.55-1.30); POTASSIUM 4.5 MMOL/L (3.5-5.1)
--- NOTE | 2020-02-19 07:15 | NUR ---
NURSE HAND-OFF REPORT: Important Events on Shift: Transfer from telemetry to SDU Patient Status: stable Diet:ccho Pending Orders: n Pending Results/Labs:n Pending MD notification:n Latest Vital Signs: Temperature 97.3 , Pulse 84 , B/P 118 /72 , Respiratory Rate 22 , O2 SAT 100 , Bi-pap, O2 Flow Rate . Vital Sign Comment:n EKG Rhythm: Sinus Rhythm Rhythm change?: N MD Notified?: Jay -dr. navarro HERNANDES Response: Latest Pineda Fall Score: 35 Fall Risk: Medium Risk Safety Measures: Call light Within Reach, Bed Alarm Zone 1, Side Rails Side Rails x2, Bed position Low and Locked. Fall Precautions: Yellow Socks Yellow Gown Door Sign Patient Fall Education Report given to JO-ANN Gardner.
--- NOTE | 2020-02-19 07:30 | NUR ---
NURSE NOTES: Received report from JO-ANN CA. Pt is lying in bed asleep, on Bipap, tolerating the setting of 15/8, FiO2 70% with O2 sat of 100%. Pt is SR on the nuclear monitoring technician. Flores catheter is intact and patent draining sufficient yellowish urine. IV sites are intact and patent. Bed is locked and in lowest position, bed alarm on, call light is with the patient. Will continue to monitor pt. Will continue with the plan of care.
[2020-02-19 08:00] VITALS: BP 122/72
--- NOTE | 2020-02-19 08:38 | General Progress Note ---
Subjective Date patient seen: Feb 19, 2020 Time patient seen: 07:30 - am Allergies: Coded Allergies: No Known Allergies (Unverified , 07/30/15) Subjective HISTORY OF PRESENT ILLNESS: This is a 59-year-old female who is being seen on the step down unit of [facility]. Patient is in bed found to be COVID-19 positive now in isolation. Pain is at a moderate level and has no new complaints at this time. REVIEW OF SYSTEMS: Denies rash, fever, chills, sweating, dizziness, drowsiness, sore throat, or change in her weight. No nausea, vomiting, diarrhea, blood in the stool or urine. No dysuria. Objective Last 24 Hour Vital Signs Date Time Temp Pulse Resp B/P (MAP) Pulse Ox O2 Delivery O2 Flow Rate FiO2 02/19/20 08:00 96.4 81 20 122/72 (89) 100 02/19/20 06:52 80 20 100 70 02/19/20 04:00 97.3 84 22 118/72 (87) 100 02/19/20 04:00 Bi-pap 02/19/20 03:30 77 21 97 85 02/19/20 03:28 79 02/19/20 00:10 82 02/19/20 00:00 Bi-pap 02/19/20 00:00 98.2 81 22 120/66 (84) 98 02/18/20 21:10 108 137/89 02/18/20 21:00 Bi-pap 10.0 02/18/20 21:00 93 22 97 100 02/18/20 20:00 109 02/18/20 20:00 99.0 108 22 137/89 (105) 98 02/18/20 19:00 102 28 98 100 02/18/20 19:00 100 Bi-Pap 100 02/18/20 19:00 101 28 99 Bi-Pap 100 02/18/20 16:00 97.9 105 20 143/82 (102) 100 02/18/20 16:00 103 02/18/20 15:35 108 32 99 100 02/18/20 14:21 172/97 02/18/20 12:00 92 02/18/20 12:00 97.7 100 20 172/97 (122) 100 02/18/20 11:34 101 22 98 Bi-Pap 100 108 25 98 100 02/18/20 09:12 94 124/76 02/18/20 09:12 124/76 02/18/20 09:12 94 124/76 02/18/20 09:00 Bi-pap 10.0 Intake and Output 02/18/20 02/19/20 19:00 07:00 Intake Total 220 ml Output Total 600 ml 400 ml Balance -600 ml -180 ml Intake Oral 220 ml Output Urine Total 600 ml 400 ml # Voids 1 # Bowel Movements 1 Laboratory Tests 02/18/20 10:37: Arterial Blood pH 7.345L, Arterial Blood Partial Pressure CO2 61.9*H, Arterial Blood Partial Pressure O2 111.0H, Arterial Blood HCO3 33.0H, Arterial Blood Oxygen Saturation 98.6, Arterial Blood Base Excess 6.2H, Bryan Test Positive 02/18/20 12:00: POC Whole Blood Glucose 130H 02/18/20 16:39: POC Whole Blood Glucose 188H 02/18/20 23:28: POC Whole Blood Glucose 251H 02/19/20 04:06: White Blood Count 5.7, Red Blood Count 2.98L, Hemoglobin 8.3L, Hematocrit 28.7L, Mean Corpuscular Volume 96, Mean Corpuscular Hemoglobin 27.8, Mean Corpuscular Hemoglobin Concent 28.9L, Red Cell Distribution Width 15.5H, Platelet Count 387, Mean Platelet Volume 5.3L, Neutrophils (%) (Auto) , Lymphocytes (%) (Auto) , Monocytes (%) (Auto) , Eosinophils (%) (Auto) , Basophils (%) (Auto) , Neutrophils % (Manual) [Pending], Lymphocytes % (Manual) [Pending], Platelet Estimate [Pending], Platelet Morphology [Pending], Sodium Level 137, Potassium Level 4.5, Chloride Level 101, Carbon Dioxide Level 34H, Anion Gap 3L, Blood Urea Nitrogen 33H, Creatinine 1.4H, Estimat Glomerular Filtration Rate 46.5, Glucose Level 258#H, Calcium Level 8.0L, Total Bilirubin 0.3, Direct Bilirubin 0.2, Aspartate Amino Transf (AST/SGOT) 37, Alanine Aminotransferase (ALT/SGPT) 8L, Alkaline Phosphatase 405H, Total Protein 6.8, Albumin 1.5L, Globulin 5.3, Albumin/Globulin Ratio 0.3L 02/19/20 05:59: POC Whole Blood Glucose 235H Height (Feet): 5 Height (Inches): 1.00 Weight (Pounds): 168 Objective PHYSICAL EXAMINATION: GENERAL: Alert, awake, and oriented. LUNGS: Decreased breath sounds bilaterally. HEART: S1 and S2 regular. ABDOMEN: Obese. EXTREMITIES: No cyanosis. No clubbing. NEURO: No changes. Assessment/Plan Assessment/Plan: (1) Cervical DDD (2) Cervical Spondylosis (3) Covid 19 + Patient to be continued on [place], Neurontin, Robaxin and Lidocaine patch. D/w Dr. Landa and he concurred. Monster Corey Feb 19, 2020 08:38
[2020-02-19] MEDS: Aspirin Baby 81mg ORAL SCH (09:19)
[2020-02-19] MEDS: Levemir Flexpen SUBQ SCH ×2 (09:30→17:58)
[2020-02-19] MEDS: Imdur 30mg tab ORAL SCH (09:32)
[2020-02-19] MEDS: Enoxaparin 80mg Inj SUBQ SCH ×2 (09:34→21:51)
[2020-02-19] MEDS: HYDROcodone/Acetamin 10/325 tab ORAL PRN (10:31)
[2020-02-19 12:00] VITALS: BP 119/58
--- NOTE | 2020-02-19 12:02 | NUR ---
RADIOLOGY DEPT., CHEST X-RAY DONE.-P.DYE
--- NOTE | 2020-02-19 12:09 | Infectious Diseases Prog Note ---
Assessment/Plan Assessment/Plan antibiotics : vancomycin iv, remdesivir A 1. MRSA cavitary pneumonia sputum AFB negative x 3 2. MRSA sepsis r/o endocarditis 3. diabetes mellitus 4. hypertension 5. COPD 6. respiratory failure on bipap 7. aortic stenosis 8. COVID 19 pneumonia on bipap 100 percent FiO2, saturation 99 % P 1. continue iv vancomcyin 24 more days 2. zosyn d/c 3. remdesivir started, on day 2 4. decadron started on day 2 5. will follow up cultures 6. continue isolation Subjective Constitutional: Denies: fever, chills Respiratory: Reports: shortness of breath, dry cough Gastrointestinal/Abdominal: Denies: nausea, vomiting, diarrhea Musculoskeletal: Reports: pain Allergies: Coded Allergies: No Known Allergies (Unverified , 07/30/15) Objective Last 24 Hour Vital Signs Date Time Temp Pulse Resp B/P (MAP) Pulse Ox O2 Delivery O2 Flow Rate FiO2 02/19/20 09:32 122/72 02/19/20 09:23 71 122/72 02/19/20 09:20 71 122/72 02/19/20 08:00 96.4 81 20 122/72 (89) 100 02/19/20 06:52 80 20 100 70 02/19/20 04:00 97.3 84 22 118/72 (87) 100 02/19/20 04:00 Bi-pap 02/19/20 03:30 77 21 97 85 02/19/20 03:28 79 02/19/20 00:10 82 02/19/20 00:00 Bi-pap 02/19/20 00:00 98.2 81 22 120/66 (84) 98 02/18/20 21:10 108 137/89 02/18/20 21:00 Bi-pap 10.0 02/18/20 21:00 93 22 97 100 02/18/20 20:00 109 02/18/20 20:00 99.0 108 22 137/89 (105) 98 02/18/20 19:00 102 28 98 100 02/18/20 19:00 100 Bi-Pap 100 02/18/20 19:00 101 28 99 Bi-Pap 100 02/18/20 16:00 97.9 105 20 143/82 (102) 100 02/18/20 16:00 103 02/18/20 15:35 108 32 99 100 02/18/20 14:21 172/97 Height (Feet): 5 Height (Inches): 1.00 Weight (Pounds): 168 HEENT: other - on bipap Microbiology Date/Time Source Procedure Growth Status 02/18/20 11:24 Nasopharynx SARS-CoV-2 RdRp Gene Assay - Final Complete Laboratory Tests Test 02/18/20 16:39 02/18/20 23:28 02/19/20 04:06 02/19/20 05:59 POC Whole Blood Glucose 188 MG/DL (74-106) H 251 MG/DL (74-106) H 235 MG/DL (74-106) H White Blood Count 5.7 K/UL (4.8-10.8) Red Blood Count 2.98 M/UL (4.20-5.40) L Hemoglobin 8.3 G/DL (12.0-16.0) L Hematocrit 28.7 % (37.0-47.0) L Mean Corpuscular Volume 96 FL (80-99) Mean Corpuscular Hemoglobin 27.8 PG (27.0-31.0) Mean Corpuscular Hemoglobin Concent 28.9 G/DL (32.0-36.0) L Red Cell Distribution Width 15.5 % (11.6-14.8) H Platelet Count 387 K/UL (150-450) Mean Platelet Volume 5.3 FL (6.5-10.1) L Neutrophils (%) (Auto) % (45.0-75.0) Lymphocytes (%) (Auto) % (20.0-45.0) Monocytes (%) (Auto) % (1.0-10.0) Eosinophils (%) (Auto) % (0.0-3.0) Basophils (%) (Auto) % (0.0-2.0) Differential Total Cells Counted 100 Neutrophils % (Manual) 92 % (45-75) H Lymphocytes % (Manual) 7 % (20-45) L Monocytes % (Manual) 1 % (1-10) Eosinophils % (Manual) 0 % (0-3) Basophils % (Manual) 0 % (0-2) Band Neutrophils 0 % (0-8) Platelet Estimate Adequate Platelet Morphology Normal Hypochromasia 1+ Anisocytosis 1+ Sodium Level 137 MMOL/L (136-145) Potassium Level 4.5 MMOL/L (3.5-5.1) Chloride Level 101 MMOL/L (98-107) Carbon Dioxide Level 34 MMOL/L (21-32) H Anion Gap 3 mmol/L (5-15) L Blood Urea Nitrogen 33 mg/dL (7-18) H Creatinine 1.4 MG/DL (0.55-1.30) H Estimat Glomerular Filtration Rate 46.5 mL/min (>60) Glucose Level 258 MG/DL (74-106) #H Calcium Level 8.0 MG/DL (8.5-10.1) L Total Bilirubin 0.3 MG/DL (0.2-1.0) Direct Bilirubin 0.2 MG/DL (0.0-0.3) Aspartate Amino Transf (AST/SGOT) 37 U/L (15-37) Alanine Aminotransferase (ALT/SGPT) 8 U/L (12-78) L Alkaline Phosphatase 405 U/L (46-116) H Total Protein 6.8 G/DL (6.4-8.2) Albumin 1.5 G/DL (3.4-5.0) L Globulin 5.3 g/dL Albumin/Globulin Ratio 0.3 (1.0-2.7) L Test 02/19/20 09:29 POC Whole Blood Glucose 213 MG/DL (74-106) H Current Medications Medications (Trade) Dose Ordered Sig/Ivana Route PRN Reason Start Time Stop Time Status Last Admin Dose Admin Acetaminophen (Tylenol) 650 mg Q6H PRN ORAL MILD PAIN, FEVER 01/28/20 22:45 02/27/20 22:44 02/18/20 04:19 Acetaminophen/ Hydrocodone Bitart ([place] 10/325) 1 tab Q4H PRN ORAL Moderate Pain (Pain Scale 4-6) 02/15/20 09:45 02/22/20 09:44 02/19/20 10:31 Amlodipine Besylate (Norvasc) 10 mg DAILY ORAL 02/01/20 09:00 03/02/20 08:59 02/19/20 09:23 Aspirin (ASA) 81 mg DAILY ORAL 02/14/20 09:00 03/30/20 08:59 02/19/20 09:19 Clonidine HCl (Catapres Tab) 0.1 mg Q4H PRN ORAL SBP > 150mmHg 02/06/20 07:00 05/06/20 06:59 02/18/20 14:21 Dexamethasone (Decadron) 6 mg Q24H ORAL 02/18/20 18:00 02/27/20 18:01 02/18/20 17:20 Dextrose (Dextrose 50%) 25 ml Q30M PRN IV Hypoglycemia 01/28/20 22:45 04/27/20 22:44 Dextrose (Dextrose 50%) 50 ml Q30M PRN IV Hypoglycemia 01/28/20 22:45 04/27/20 22:44 Enoxaparin Sodium (Lovenox) 80 mg Q12HR SUBQ 02/13/20 18:54 05/13/20 18:53 02/19/20 09:34 Epoetin Haseeb (Epoetin Haseeb-EPBX(NON ESRD)) 8,000 unit WED-WED-WED SUBQ 02/05/20 21:00 05/05/20 20:59 02/16/20 23:35 Gabapentin (Neurontin) 300 mg THREE TIMES A DAY ORAL 02/11/20 09:30 03/12/20 09:29 02/19/20 09:21 Guaifenesin/ Dextromethorphan (Robitussin DM Syrup) 15 ml Q4H PRN ORAL For Cough 02/12/20 16:53 05/12/20 16:52 02/17/20 15:20 Insulin Aspart (NovoLOG) Q6HR SUBQ 01/29/20 00:00 04/28/20 00:00 02/19/20 06:06 Insulin Detemir (Levemir) 10 units BID SUBQ 02/08/20 18:00 05/04/20 17:59 02/19/20 09:30 Ipratropium [place] (Atrovent Inh) 1 puffs Q4H INH 02/18/20 18:00 03/19/20 17:59 02/19/20 09:36 Isosorbide Mononitrate (Imdur) 30 mg DAILY ORAL 02/02/20 09:00 03/03/20 08:59 02/19/20 09:32 Lidocaine (Lidoderm 5% PATCH) 1 patch DAILY TDERMAL 02/11/20 09:30 05/11/20 09:29 02/19/20 09:35 Lorazepam (Ativan) 1 mg Q4H PRN ORAL For Anxiety 02/14/20 20:15 02/21/20 20:14 02/17/20 18:44 Methocarbamol (Robaxin) 500 mg Q8H PRN ORAL muscle spasm 02/11/20 09:30 03/12/20 09:29 02/18/20 21:09 Metoprolol Tartrate (Lopressor) 25 mg Q12HR ORAL 02/04/20 21:00 05/04/20 20:59 02/19/20 09:20 Nitroglycerin (Ntg) 0.4 mg Q5M PRN SL Prn Chest Pain 02/01/20 08:00 03/02/20 07:59 02/03/20 06:17 Ondansetron HCl (Zofran) 4 mg Q6H PRN IVP Nausea & Vomiting 01/28/20 22:45 02/27/20 22:44 02/01/20 18:10 Pantoprazole (Protonix) 40 mg BIAC ORAL 02/16/20 16:30 03/17/20 16:29 02/19/20 06:05 Remdesivir 100 mg/ Sodium Chloride 250 ml @ 250 mls/hr Q24H IV 02/19/20 18:00 02/22/20 18:59 Vancomycin HCl 300 ml @ 150 mls/hr Q24H IVPB 02/16/20 15:00 02/21/20 14:59 02/18/20 17:21 Vancomycin HCl (Vanco pharmacy to dose) 1 ea DAILY PRN MISC Per rx protocol 02/13/20 11:30 03/14/20 11:29 Messi Lopez MD Feb 19, 2020 12:08
--- NOTE | 2020-02-19 12:15 | Critical Care Progress Note ---
Assessment/Plan Assessment/Plan IMPRESSION acute respiratory failure leukocytosis sepsis ARF toxic met encephalopathy COPD DM poor control cavitary lesion negative AFB groundglass infiltrates NSTEMI severe PCM hypertension left shoulder pain bacteremia MRSA hematuria COVID PLAN DVT prophylaxis antibiotics per ID VATS on hold BIPAP titrate BP meds diurese ABLE anxious; on ativan not improved defer lung biopsy for now impression, plan, and exam edited and reviewed in detail care discussed with supervisor color making - Subjective Interval Events: on BIPAP d/w daughter confirms her respiratory status has been poor for some time has significant Co2 retention Condition: critical EKG Rhythm: Sinus Rhythm I&O: Intake and Output 02/18/20 02/19/20 19:00 07:00 Intake Total 220 ml Output Total 600 ml 400 ml Balance -600 ml -180 ml Intake Oral 220 ml Output Urine Total 600 ml 400 ml # Voids 1 # Bowel Movements 1 Critical Care - Objective Last 24 Hour Vital Signs Date Time Temp Pulse Resp B/P (MAP) Pulse Ox O2 Delivery O2 Flow Rate FiO2 02/19/20 09:32 122/72 02/19/20 09:23 71 122/72 02/19/20 09:20 71 122/72 02/19/20 08:00 96.4 81 20 122/72 (89) 100 02/19/20 06:52 80 20 100 70 02/19/20 04:00 97.3 84 22 118/72 (87) 100 02/19/20 04:00 Bi-pap 02/19/20 03:30 77 21 97 85 02/19/20 03:28 79 02/19/20 00:10 82 02/19/20 00:00 Bi-pap 02/19/20 00:00 98.2 81 22 120/66 (84) 98 02/18/20 21:10 108 137/89 02/18/20 21:00 Bi-pap 10.0 02/18/20 21:00 93 22 97 100 02/18/20 20:00 109 02/18/20 20:00 99.0 108 22 137/89 (105) 98 02/18/20 19:00 102 28 98 100 02/18/20 19:00 100 Bi-Pap 100 02/18/20 19:00 101 28 99 Bi-Pap 100 02/18/20 16:00 97.9 105 20 143/82 (102) 100 02/18/20 16:00 103 02/18/20 15:35 108 32 99 100 02/18/20 14:21 172/97 Objective: deferred due to COVID Micro: Microbiology Date/Time Source Procedure Growth Status 02/18/20 11:24 Nasopharynx SARS-CoV-2 RdRp Gene Assay - Final Complete Accucheck: 213 Germán Feliz MD Feb 19, 2020 12:15
--- NOTE | 2020-02-19 14:03 | Diagnostic Imaging Report ---
Indication: Shortness of breath Technique: One view of the chest Comparison: 02/14/2020 Findings: Interim marked worsening of dense left lung consolidation, particularly in the upper lobe. There is also increasing consolidation throughout the right lung, less severe than the left. Cavity or bulla is again demonstrated in the right upper lobe. The heart is borderline enlarged. Impression: Worsening bilateral infiltrates versus edema, over 5 days
--- NOTE | 2020-02-19 15:08 | NUR ---
CASE MANAGEMENT:REVIEW 02/19/20 SI: ACUTE RESPIRATORY FAILURE. NOW COVID POSITIVE SEPSIS D/T MRSA BACTEREMIA. NSTEMI 96.4 83 21 119/58 100% ON BIPAP W/70% FIO2 IS: IV REMDESIVIR Q24 (2/5) IV VANCOMYCIN Q24 IV ZOSYN Q8HRS HHN Q4HRS DECADRON PO Q24 LOVENOX SQ Q12 : TELEMETRY STATUS DCP: FROM HOME
--- NOTE | 2020-02-19 15:30 | NUR ---
NURSE NOTES: Dr. Feliz contacted about continous Bipap and having CCHO diet. Dr. Feliz ordered for pt to be off Bipap to eat meals. Will continue with the plan of care.
[2020-02-19] MEDS: Vancomycin 1 GM in NS 275 ML IVPB SCH (15:52)
[2020-02-19 16:00] VITALS: BP 129/77
--- NOTE | 2020-02-19 17:30 | NUR ---
NURSE NOTES: Pt assisted with bed bath. Beddings changed. Pt is tolerating well. Vitals remain stable. O2 saturation remained 99-100%. Will continue to monitor pt. Will continue with the plan of care.
[2020-02-19] MEDS: Maintenance Dose:Remdesivir 100mg/NS 230ml x 4 Doses IV SCH ×2 (17:54)
--- NOTE | 2020-02-19 19:40 | NUR ---
NURSE NOTES: Received pt and report from JO-ANN Gardner. Observed pt resting in bed with both eyes open and on her cell phone. Pt is A/Ox4. desk monitor is in placed; pt is NSR. IV site intact, asymptomatic, and patent. Pt is on BIPAP; settings 15/8, FiO2 70%. Pt's O2 saturation is at 100%. Bed is in the lowest position and locked. Call light and bedside table is within reach. No signs/symptoms of acute distress noted. Will continue plan of care.
--- NOTE | 2020-02-19 19:49 | NUR ---
NURSE HAND-OFF REPORT: Important Events on Shift:None Patient Status: stable, full code Diet: CCHO Pending Orders: N Pending Results/Labs:N Pending MD notification:N Latest Vital Signs: Temperature 97.8 , Pulse 81 , B/P 129 /77 , Respiratory Rate 22 , O2 SAT 100 , Bi-pap, O2 Flow Rate . Vital Sign Comment: stable EKG Rhythm: Sinus Rhythm Rhythm change?: N MD Notified?: Jay -dr. navarro HERNANDES Response: Latest Pineda Fall Score: 35 Fall Risk: Medium Risk Safety Measures: Call light Within Reach, Bed Alarm Zone 1, Side Rails Side Rails x2, Bed position Low and Locked. Fall Precautions: Yellow Socks Yellow Gown Door Sign Patient Fall Education Report given to diana Tinsley RN.
[2020-02-19 20:00] VITALS: BP 135/77
[2020-02-19] MEDS: Epoetin Alfa-EPBX (NON ESRD)4000 units/ml vial SUBQ SCH (21:53)
[2020-02-19] MEDS: guaiFENesin /DM 10ml syrup ORAL PRN (22:21)
[2020-02-20] VITALS: BP 134/77
[2020-02-20] MEDS: NovoLOG Insulin Flexpen SUBQ SCH ×5 (00:40→23:29)
--- NOTE | 2020-02-20 01:34 | NUR ---
NURSE NOTES: Observed pt resting in bed with both eyes open and on her cell phone. Assisted pt to the bedside commode x2. Pt had two formed BM.
[2020-02-20] MEDS: Ipratropium Bromide Inhaler INH SCH ×6 (02:03→22:00)
[2020-02-20] MEDS: HYDROcodone/Acetamin 10/325 tab ORAL PRN ×2 (02:09→09:16)
--- NOTE | 2020-02-20 03:00 | NUR ---
RESPIRATORY NOTE: PT STABLE ON BIPAP WITH CURRENT SETTINGS. NO FACIAL WOUNDS NOTED. NO S/S OF RESPIRATORY DISTRESS NOTED AT THIS TIME.
[2020-02-20 04:00] VITALS: BP 146/83
[2020-02-20] MEDS: Vancomycin 1 GM in NS 275 ML IVPB SCH ×2 (04:31→16:00)
[2020-02-20 05:45] LABS: HEMATOCRIT 29.5 % (37.0-47.0); HEMOGLOBIN 8.7 G/DL (12.0-16.0); MEAN CORPUSCULAR VOLUME 95 FL (80-99); PLATELET COUNT 508 K/UL (150-450); RED BLOOD COUNT 3.11 M/UL (4.20-5.40); RED CELL DISTRIBUTION WIDTH 15.4 % (11.6-14.8); WHITE BLOOD COUNT 8.9 K/UL (4.8-10.8)
[2020-02-20 06:18] LABS: ALBUMIN 1.9 G/DL (3.4-5.0); ALBUMIN/GLOBULIN RATIO 0.3 (1.0-2.7); BILIRUBIN,DIRECT 0.3 MG/DL (0.0-0.3); BILIRUBIN,TOTAL 0.4 MG/DL (0.2-1.0); CALCIUM 8.7 MG/DL (8.5-10.1); CREATININE 1.2 MG/DL (0.55-1.30); POTASSIUM 4.6 MMOL/L (3.5-5.1)
--- NOTE | 2020-02-20 07:45 | NUR ---
NURSE NOTES: Received report from Jaimie/RN, Observed patient on bedside commode. Alert, awake and oriented x4, able to make needs known, denies pain at this time. Assisted to go back to bed, Sitting in bed, eating breakfast. On Bi pap, okay to take if off while eating. IV on right FA, Vanco running at this time. Bed in low position and locked, Call light within reach, Encouraged to use call light when needed. Will continue plan of care.
--- NOTE | 2020-02-20 07:57 | NUR ---
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 Patient Status: Stable Diet: CCHO (M) Pending Orders: N Pending Results/Labs: AM Labs Pending MD notification: N Latest Vital Signs: Temperature 97.7 , Pulse 94 , B/P 146 /83 , Respiratory Rate 21 , O2 SAT 97 , Bi-pap, O2 Flow Rate . EKG Rhythm: Sinus Rhythm Rhythm change?: N Latest Pineda Fall Score: 60 Fall Risk: High Risk Safety Measures: Call light Within Reach, Bed Alarm Zone 1, Side Rails Side Rails x2, Bed position Low and Locked. Fall Precautions: Yellow Socks Yellow Gown Door Sign Patient Fall Education Report given to JO-ANN Ashton.
[2020-02-20 08:00] VITALS: BP 106/80
--- NOTE | 2020-02-20 08:46 | General Progress Note ---
Subjective Date patient seen: Feb 20, 2020 Time patient seen: 07:15 - am Allergies: Coded Allergies: No Known Allergies (Unverified , 07/30/15) Subjective HISTORY OF PRESENT ILLNESS: This is a 59-year-old female who is being seen on the step down unit of [facility]. Patient in bed no signs of pain or distress. No new complaints at this time. Using the [place] as needed. REVIEW OF SYSTEMS: Denies rash, fever, chills, sweating, dizziness, drowsiness, sore throat, or change in her weight. No nausea, vomiting, diarrhea, blood in the stool or urine. No dysuria. Objective Last 24 Hour Vital Signs Date Time Temp Pulse Resp B/P (MAP) Pulse Ox O2 Delivery O2 Flow Rate FiO2 02/20/20 07:10 103 19 100 70 02/20/20 04:00 90 02/20/20 04:00 Bi-pap 02/20/20 04:00 97.7 94 21 146/83 (104) 97 02/20/20 03:00 89 18 100 70 02/20/20 00:00 97.9 91 20 134/77 (96) 100 02/20/20 00:00 91 02/20/20 00:00 Bi-pap 02/19/20 23:05 77 19 100 70 02/19/20 21:52 100 135/77 02/19/20 20:00 101 02/19/20 20:00 97.7 106 20 135/77 (96) 100 02/19/20 20:00 Bi-pap 02/19/20 18:50 80 21 100 70 02/19/20 16:00 Bi-pap 02/19/20 16:00 97.8 81 22 129/77 (94) 100 02/19/20 15:13 90 02/19/20 14:30 82 20 100 70 02/19/20 12:00 Bi-pap 02/19/20 12:00 96.4 77 21 119/58 (78) 100 02/19/20 12:00 83 02/19/20 10:53 84 20 100 70 02/19/20 09:32 122/72 02/19/20 09:23 71 122/72 02/19/20 09:20 71 122/72 Intake and Output 02/19/20 02/20/20 19:00 07:00 Intake Total 917.416 ml 320 ml Output Total 700 ml 600 ml Balance 217.416 ml -280 ml Intake Oral 300 ml 320 ml IV Total 617.416 ml Output Urine Total 700 ml 600 ml # Bowel Movements 6 Laboratory Tests 02/19/20 09:29: POC Whole Blood Glucose 213H 02/19/20 12:23: POC Whole Blood Glucose 206H 02/19/20 14:15: Vancomycin Level Trough 12.2H 02/19/20 17:49: POC Whole Blood Glucose 249H 02/20/20 00:33: POC Whole Blood Glucose 269H 02/20/20 04:50: White Blood Count 8.9#, Red Blood Count 3.11L, Hemoglobin 8.7L, Hematocrit 29.5L , Mean Corpuscular Volume 95, Mean Corpuscular Hemoglobin 28.1, Mean Corpuscular Hemoglobin Concent 29.6L, Red Cell Distribution Width 15.4H, Platelet Count 508H , Mean Platelet Volume 5.9L, Neutrophils (%) (Auto) , Lymphocytes (%) (Auto) , Monocytes (%) (Auto) , Eosinophils (%) (Auto) , Basophils (%) (Auto) , Neutrophils % (Manual) [Pending], Lymphocytes % (Manual) [Pending], Platelet Estimate [Pending], Platelet Morphology [Pending], Sodium Level 136, Potassium Level 4.6, Chloride Level 100, Carbon Dioxide Level 34H, Anion Gap 2L, Blood Urea Nitrogen 38H, Creatinine 1.2, Estimat Glomerular Filtration Rate 55.6, Glucose Level 247H, Calcium Level 8.7, Total Bilirubin 0.4, Direct Bilirubin 0.3, Aspartate Amino Transf (AST/SGOT) 57H, Alanine Aminotransferase (ALT/SGPT) 16, Alkaline Phosphatase 559H, Total Protein 8.0, Albumin 1.9L, Globulin 6.1, Albumin/Globulin Ratio 0.3L 02/20/20 05:34: POC Whole Blood Glucose [Pending] Height (Feet): 5 Height (Inches): 1.00 Weight (Pounds): 168 Objective PHYSICAL EXAMINATION: GENERAL: Alert, awake, and oriented. LUNGS: Decreased breath sounds bilaterally. HEART: S1 and S2 regular. ABDOMEN: Obese. EXTREMITIES: No cyanosis. No clubbing. NEURO: No changes. Assessment/Plan Assessment/Plan: (1) Cervical DDD (2) Cervical Spondylosis Patient to be continued on [place], Neurontin, Robaxin and Lidocaine patch. D/w Dr. Landa and he concurred. Monster Corey Feb 20, 2020 08:46
--- NOTE | 2020-02-20 08:54 | Critical Care Progress Note ---
Assessment/Plan Assessment/Plan IMPRESSION acute respiratory failure leukocytosis sepsis ARF toxic met encephalopathy COPD DM poor control cavitary lesion negative AFB groundglass infiltrates NSTEMI severe PCM hypertension left shoulder pain bacteremia MRSA hematuria COVID PLAN DVT prophylaxis antibiotics per ID VATS on hold BIPAP- off if able; check ABG titrate BP meds diurese ABLE anxious; on ativan not improved defer lung biopsy for now impression, plan, and exam edited and reviewed in detail care discussed with pattern data operator - Subjective Condition: improving EKG Rhythm: Sinus Rhythm I&O: Intake and Output 02/19/20 02/20/20 19:00 07:00 Intake Total 917.416 ml 320 ml Output Total 700 ml 600 ml Balance 217.416 ml -280 ml Intake Oral 300 ml 320 ml IV Total 617.416 ml Output Urine Total 700 ml 600 ml # Bowel Movements 6 Critical Care - Objective Last 24 Hour Vital Signs Date Time Temp Pulse Resp B/P (MAP) Pulse Ox O2 Delivery O2 Flow Rate FiO2 02/20/20 08:00 96.6 138 18 106/80 (89) 98 02/20/20 07:10 103 19 100 70 02/20/20 04:00 90 02/20/20 04:00 Bi-pap 02/20/20 04:00 97.7 94 21 146/83 (104) 97 02/20/20 03:00 89 18 100 70 02/20/20 00:00 97.9 91 20 134/77 (96) 100 02/20/20 00:00 91 02/20/20 00:00 Bi-pap 02/19/20 23:05 77 19 100 70 02/19/20 21:52 100 135/77 02/19/20 20:00 101 02/19/20 20:00 97.7 106 20 135/77 (96) 100 02/19/20 20:00 Bi-pap 02/19/20 18:50 80 21 100 70 02/19/20 16:00 Bi-pap 02/19/20 16:00 97.8 81 22 129/77 (94) 100 02/19/20 15:13 90 02/19/20 14:30 82 20 100 70 02/19/20 12:00 Bi-pap 02/19/20 12:00 96.4 77 21 119/58 (78) 100 02/19/20 12:00 83 02/19/20 10:53 84 20 100 70 02/19/20 09:32 122/72 02/19/20 09:23 71 122/72 02/19/20 09:20 71 [id number] Labs: Laboratory Tests Test 02/19/20 09:29 02/19/20 12:23 02/19/20 14:15 02/19/20 17:49 POC Whole Blood Glucose 213 MG/DL (74-106) H 206 MG/DL (74-106) H 249 MG/DL (74-106) H Vancomycin Level Trough 12.2 ug/mL (5.0-12.0) H Test 02/20/20 00:33 02/20/20 04:50 02/20/20 05:34 POC Whole Blood Glucose 269 MG/DL (74-106) H Pending White Blood Count 8.9 K/UL (4.8-10.8) # Red Blood Count 3.11 M/UL (4.20-5.40) L Hemoglobin 8.7 G/DL (12.0-16.0) L Hematocrit 29.5 % (37.0-47.0) L Mean Corpuscular Volume 95 FL (80-99) Mean Corpuscular Hemoglobin 28.1 PG (27.0-31.0) Mean Corpuscular Hemoglobin Concent 29.6 G/DL (32.0-36.0) L Red Cell Distribution Width 15.4 % (11.6-14.8) H Platelet Count 508 K/UL (150-450) H Mean Platelet Volume 5.9 FL (6.5-10.1) L Neutrophils (%) (Auto) % (45.0-75.0) Lymphocytes (%) (Auto) % (20.0-45.0) Monocytes (%) (Auto) % (1.0-10.0) Eosinophils (%) (Auto) % (0.0-3.0) Basophils (%) (Auto) % (0.0-2.0) Neutrophils % (Manual) Pending Lymphocytes % (Manual) Pending Platelet Estimate Pending Platelet Morphology Pending Sodium Level 136 MMOL/L (136-145) Potassium Level 4.6 MMOL/L (3.5-5.1) Chloride Level 100 MMOL/L (98-107) Carbon Dioxide Level 34 MMOL/L (21-32) H Anion Gap 2 mmol/L (5-15) L Blood Urea Nitrogen 38 mg/dL (7-18) H Creatinine 1.2 MG/DL (0.55-1.30) Estimat Glomerular Filtration Rate 55.6 mL/min (>60) Glucose Level 247 MG/DL (74-106) H Calcium Level 8.7 MG/DL (8.5-10.1) Total Bilirubin 0.4 MG/DL (0.2-1.0) Direct Bilirubin 0.3 MG/DL (0.0-0.3) Aspartate Amino Transf (AST/SGOT) 57 U/L (15-37) H Alanine Aminotransferase (ALT/SGPT) 16 U/L (12-78) Alkaline Phosphatase 559 U/L (46-116) H Total Protein 8.0 G/DL (6.4-8.2) Albumin 1.9 G/DL (3.4-5.0) L Globulin 6.1 g/dL Albumin/Globulin Ratio 0.3 (1.0-2.7) L Objective: deferred due to COVID Micro: Microbiology Date/Time Source Procedure Growth Status 02/18/20 15:50 Nasopharynx Coronavirus COVID-19 PCR ([facility]) - Final Complete 02/18/20 11:24 Nasopharynx SARS-CoV-2 RdRp Gene Assay - Final Complete Accucheck: 221 Germán Feliz MD Feb 20, 2020 08:54
[2020-02-20] MEDS: Imdur 30mg tab ORAL SCH (09:10)
[2020-02-20] MEDS: Aspirin Baby 81mg ORAL SCH (09:10)
[2020-02-20] MEDS: Levemir Flexpen SUBQ SCH ×2 (09:13→18:00)
[2020-02-20] MEDS: Enoxaparin 80mg Inj SUBQ SCH ×2 (09:14→20:32)
--- NOTE | 2020-02-20 09:19 | NUR ---
RD ASSESSMENT & RECOMMENDATIONS SEE CARE ACTIVITY FOR COMPLETE ASSESSMENT DAILY ESTIMATED NEEDS: Needs based on Sepsis, pulmonary/ 54.9kg abw 25-35 kcals/kg 6105-8756 total kcals 1-2 g protein/kg 55-110 g total protein 25-30 mL/kg 4524-4206 total fluid mLs NUTRITION DIAGNOSIS: * Altered nutrition related lab values R/T clinical status as evidenced by variable poc BGs (52-325 upon adm, now POC glu 98-256), elev WBC, now wnl, elev K (5.4 -> wnl), elev LFTs. (CURRENT DIET: CCHO MED) PO DIET RECOMMENDATIONS: Maintain CCHO MED with poor PO (add LOW NA w/ PO intake >50%) ADDITIONAL RECOMMENDATIONS: * Monitor PO intake: poor again -Monitor closely for hypoglycemia w/ poor po intake * Continue Glucerna TID w/ meals (220kcal/10g prot each) -> Monitor / record amount of intake -> pt requesting Glucerna in b/w meals as well -> BID in b/w meals added * Calibrated bed scale wts : fluctuating daily wts * Monitor lytes w/ Lasix, replete as needed
--- NOTE | 2020-02-20 11:20 | Infectious Diseases Prog Note ---
Assessment/Plan Assessment/Plan antibiotics : vancomycin iv, remdesivir A 1. MRSA cavitary pneumonia sputum AFB negative x 3 2. MRSA sepsis r/o endocarditis 3. diabetes mellitus 4. hypertension 5. COPD 6. respiratory failure on bipap 7. aortic stenosis 8. COVID 19 pneumonia on bipap 70 percent FiO2, saturation 100 % P 1. continue iv vancomycin 23 more days 2. continue remdesivir day 3 3. continue decadron day 3 4. will follow up cultures 5. continue isolation Subjective Constitutional: Denies: fever, chills Respiratory: Reports: shortness of breath, dry cough Gastrointestinal/Abdominal: Denies: nausea, vomiting, diarrhea Musculoskeletal: Reports: pain Allergies: Coded Allergies: No Known Allergies (Unverified , 07/30/15) Objective Last 24 Hour Vital Signs Date Time Temp Pulse Resp B/P (MAP) Pulse Ox O2 Delivery O2 Flow Rate FiO2 02/20/20 09:11 138 106/80 02/20/20 09:10 106/80 02/20/20 09:09 138 106/80 02/20/20 08:00 96.6 138 18 106/80 (89) 98 02/20/20 08:00 104 02/20/20 08:00 Bi-pap 02/20/20 07:10 103 19 100 70 02/20/20 04:00 90 02/20/20 04:00 Bi-pap 02/20/20 04:00 97.7 94 21 146/83 (104) 97 02/20/20 03:00 89 18 100 70 02/20/20 00:00 97.9 91 20 134/77 (96) 100 02/20/20 00:00 91 02/20/20 00:00 Bi-pap 02/19/20 23:05 77 19 100 70 02/19/20 21:52 100 135/77 02/19/20 20:00 101 02/19/20 20:00 97.7 106 20 135/77 (96) 100 02/19/20 20:00 Bi-pap 02/19/20 18:50 80 21 100 70 02/19/20 16:00 Bi-pap 02/19/20 16:00 97.8 81 22 129/77 (94) 100 02/19/20 15:13 90 02/19/20 14:30 82 20 100 70 02/19/20 12:00 Bi-pap 02/19/20 12:00 96.4 77 21 119/58 (78) 100 02/19/20 12:00 83 Height (Feet): 5 Height (Inches): 1.00 Weight (Pounds): 168 HEENT: other - on bipap Microbiology Date/Time Source Procedure Growth Status 02/18/20 15:50 Nasopharynx Coronavirus COVID-19 PCR ([facility]) - Final Complete 02/18/20 11:24 Nasopharynx SARS-CoV-2 RdRp Gene Assay - Final Complete Laboratory Tests Test 02/19/20 12:23 02/19/20 14:15 02/19/20 17:49 02/20/20 00:33 POC Whole Blood Glucose 206 MG/DL (74-106) H 249 MG/DL (74-106) H 269 MG/DL (74-106) H Vancomycin Level Trough 12.2 ug/mL (5.0-12.0) H Test 02/20/20 04:50 02/20/20 05:34 02/20/20 09:08 02/20/20 09:58 White Blood Count 8.9 K/UL (4.8-10.8) # Red Blood Count 3.11 M/UL (4.20-5.40) L Hemoglobin 8.7 G/DL (12.0-16.0) L Hematocrit 29.5 % (37.0-47.0) L Mean Corpuscular Volume 95 FL (80-99) Mean Corpuscular Hemoglobin 28.1 PG (27.0-31.0) Mean Corpuscular Hemoglobin Concent 29.6 G/DL (32.0-36.0) L Red Cell Distribution Width 15.4 % (11.6-14.8) H Platelet Count 508 K/UL (150-450) H Mean Platelet Volume 5.9 FL (6.5-10.1) L Neutrophils (%) (Auto) % (45.0-75.0) Lymphocytes (%) (Auto) % (20.0-45.0) Monocytes (%) (Auto) % (1.0-10.0) Eosinophils (%) (Auto) % (0.0-3.0) Basophils (%) (Auto) % (0.0-2.0) Differential Total Cells Counted 100 Neutrophils % (Manual) 92 % (45-75) H Lymphocytes % (Manual) 4 % (20-45) L Monocytes % (Manual) 3 % (1-10) Eosinophils % (Manual) 0 % (0-3) Basophils % (Manual) 0 % (0-2) Band Neutrophils 1 % (0-8) Platelet Estimate Increased H Platelet Morphology Normal Polychromasia 1+ Anisocytosis 1+ Sodium Level 136 MMOL/L (136-145) Potassium Level 4.6 MMOL/L (3.5-5.1) Chloride Level 100 MMOL/L (98-107) Carbon Dioxide Level 34 MMOL/L (21-32) H Anion Gap 2 mmol/L (5-15) L Blood Urea Nitrogen 38 mg/dL (7-18) H Creatinine 1.2 MG/DL (0.55-1.30) Estimat Glomerular Filtration Rate 55.6 mL/min (>60) Glucose Level 247 MG/DL (74-106) H Calcium Level 8.7 MG/DL (8.5-10.1) Total Bilirubin 0.4 MG/DL (0.2-1.0) Direct Bilirubin 0.3 MG/DL (0.0-0.3) Aspartate Amino Transf (AST/SGOT) 57 U/L (15-37) H Alanine Aminotransferase (ALT/SGPT) 16 U/L (12-78) Alkaline Phosphatase 559 U/L (46-116) H Total Protein 8.0 G/DL (6.4-8.2) Albumin 1.9 G/DL (3.4-5.0) L Globulin 6.1 g/dL Albumin/Globulin Ratio 0.3 (1.0-2.7) L POC Whole Blood Glucose Pending Pending Arterial Blood pH 7.363 (7.350-7.450) Arterial Blood Partial Pressure CO2 57.9 mmHg (35.0-45.0) *H Arterial Blood Partial Pressure O2 75.2 mmHg (75.0-100.0) Arterial Blood HCO3 32.2 mmol/L (22.0-26.0) H Arterial Blood Oxygen Saturation 94.2 % (95-100) L Arterial Blood Base Excess 5.8 (-2-2) H Bryan Test Positive Current Medications Medications (Trade) Dose Ordered Sig/Ivana Route PRN Reason Start Time Stop Time Status Last Admin Dose Admin Acetaminophen (Tylenol) 650 mg Q6H PRN ORAL MILD PAIN, FEVER 01/28/20 22:45 02/27/20 22:44 02/18/20 04:19 Acetaminophen/ Hydrocodone Bitart ([place] 10/325) 1 tab Q4H PRN ORAL Moderate Pain (Pain Scale 4-6) 02/15/20 09:45 02/22/20 09:44 02/20/20 09:16 Amlodipine Besylate (Norvasc) 10 mg DAILY ORAL 02/01/20 09:00 03/02/20 08:59 02/20/20 09:11 Aspirin (ASA) 81 mg DAILY ORAL 02/14/20 09:00 03/30/20 08:59 02/20/20 09:10 Clonidine HCl (Catapres Tab) 0.1 mg Q4H PRN ORAL SBP > 150mmHg 02/06/20 07:00 05/06/20 06:59 02/18/20 14:21 Dexamethasone (Decadron) 6 mg Q24H ORAL 02/18/20 18:00 02/27/20 18:01 02/19/20 17:54 Dextrose (Dextrose 50%) 25 ml Q30M PRN IV Hypoglycemia 01/28/20 22:45 04/27/20 22:44 Dextrose (Dextrose 50%) 50 ml Q30M PRN IV Hypoglycemia 01/28/20 22:45 04/27/20 22:44 Enoxaparin Sodium (Lovenox) 80 mg Q12HR SUBQ 02/13/20 18:54 05/13/20 18:53 02/20/20 09:14 Epoetin Haseeb (Epoetin Haseeb-EPBX(NON ESRD)) 8,000 unit WED-WED-WED SUBQ 02/05/20 21:00 05/05/20 20:59 02/19/20 21:53 Gabapentin (Neurontin) 300 mg THREE TIMES A DAY ORAL 02/11/20 09:30 03/12/20 09:29 02/20/20 09:09 Guaifenesin/ Dextromethorphan (Robitussin DM Syrup) 15 ml Q4H PRN ORAL For Cough 02/12/20 16:53 05/12/20 16:52 02/19/20 22:21 Insulin Aspart (NovoLOG) Q6HR SUBQ 01/29/20 00:00 04/28/20 00:00 02/20/20 06:25 Insulin Detemir (Levemir) 10 units BID SUBQ 02/08/20 18:00 05/04/20 17:59 02/20/20 09:13 Ipratropium [place] (Atrovent Inh) 1 puffs Q4H INH 02/18/20 18:00 03/19/20 17:59 02/20/20 06:19 Isosorbide Mononitrate (Imdur) 30 mg DAILY ORAL 02/02/20 09:00 03/03/20 08:59 02/20/20 09:10 Lidocaine (Lidoderm 5% PATCH) 1 patch DAILY TDERMAL 02/11/20 09:30 05/11/20 09:29 02/20/20 09:14 Lorazepam (Ativan) 1 mg Q4H PRN ORAL For Anxiety 02/14/20 20:15 02/21/20 20:14 02/17/20 18:44 Methocarbamol (Robaxin) 500 mg Q8H PRN ORAL muscle spasm 02/11/20 09:30 03/12/20 09:29 02/18/20 21:09 Metoprolol Tartrate (Lopressor) 25 mg Q12HR ORAL 02/04/20 21:00 05/04/20 20:59 02/20/20 09:09 Nitroglycerin (Ntg) 0.4 mg Q5M PRN SL Prn Chest Pain 02/01/20 08:00 03/02/20 07:59 02/03/20 06:17 Ondansetron HCl (Zofran) 4 mg Q6H PRN IVP Nausea & Vomiting 01/28/20 22:45 02/27/20 22:44 02/01/20 18:10 Pantoprazole (Protonix) 40 mg BIAC ORAL 02/16/20 16:30 03/17/20 16:29 02/20/20 06:19 Remdesivir 100 mg/ Sodium Chloride 250 ml @ 250 mls/hr Q24H IV 02/19/20 18:00 02/22/20 18:59 02/19/20 17:54 Vancomycin HCl (Vanco pharmacy to dose) 1 ea DAILY PRN MISC Per rx protocol 02/13/20 11:30 03/14/20 11:29 Vancomycin HCl 1 gm/Sodium Chloride 275 ml @ 183.708 mls/hr Q12HR@0400,1600 IVPB 02/19/20 16:00 02/24/20 15:59 02/20/20 04:31 Messi Lopez MD Feb 20, 2020 11:20
[2020-02-20 12:00] VITALS: BP 150/76
[2020-02-20] MEDS: LORazepam 1mg tab ORAL PRN (12:26)
--- NOTE | 2020-02-20 15:31 | NUR ---
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 96.8 HR 138 RR 24 B/P 155/76 BIPAP FIO2 70% IS: REDEMSIVIR IV VANCO IV DECADRON LOVENOX SUBC. STEP DOWN STATUS
--- NOTE | 2020-02-20 15:34 | NUR ---
[facility]ICALS REVIEWED AND FAXED.
[2020-02-20 16:00] VITALS: BP 146/80
[2020-02-20] MEDS: Maintenance Dose:Remdesivir 100mg/NS 230ml x 4 Doses IV SCH ×2 (17:26)
--- NOTE | 2020-02-20 19:18 | NUR ---
NURSE HAND-OFF REPORT: Important Events on Shift:NA Patient Status: Stable. On droplet and contact isolation for covid 19 Diet: CCHO (M) Pending Orders: NA Pending Results/Labs:NA Pending notification:NA Latest Vital Signs: Temperature 98.6 , Pulse 103 , B/P 146 /80 , Respiratory Rate 16 , O2 SAT 100 , Bi-pap, O2 Flow Rate . Vital Sign Comment: Stable EKG Rhythm: Sinus Tachycardia Rhythm change?: N MD Notified?: Jay -dr. navarro HERNANDES Response: Latest Pineda Fall Score: 60 Fall Risk: High Risk Safety Measures: Call light Within Reach, Bed Alarm Zone 1, Side Rails Side Rails x2, Bed position Low and Locked. Fall Precautions: Yellow Socks Yellow Gown Door Sign Patient Fall Education Report given to JO-ANN Hopper.
--- NOTE | 2020-02-20 19:59 | NUR ---
NURSE NOTES: Report received from JO-ANN Boone. Observed pt lying in the bed, awake, able to make needs known. ST noted, HR 103. On Bipap 15/8, 70%, saturating at 100% noted. IV pulled out noted, will be inserted. Bed in the lowest position. Side rails up x3. Call light within reach. Will continue to monitor.
[2020-02-20 20:00] VITALS: BP 145/74
--- NOTE | 2020-02-20 21:34 | NUR ---
NURSE NOTES: Unable to start new iv at this time, pt hard stick, refused after 3rd try. Will continue to monitor.
--- NOTE | 2020-02-20 23:32 | NUR ---
NURSE NOTES: Pt lying in the bed, watching TV. On bipap 15/8, 70%, tolerating. New IV on R FA 20G, intact. BS of 234 noted, insulin covered. Will continue to monitor.
[2020-02-21] VITALS: BP 145/79
[2020-02-21] MEDS: HYDROcodone/Acetamin 10/325 tab ORAL PRN ×2 (00:25→08:16)
[2020-02-21] MEDS: Ipratropium Bromide Inhaler INH SCH ×5 (02:00→17:29)
[2020-02-21 03:08] LABS: HEMATOCRIT 28.4 % (37.0-47.0); HEMOGLOBIN 8.5 G/DL (12.0-16.0); MEAN CORPUSCULAR VOLUME 94 FL (80-99); PLATELET COUNT 515 K/UL (150-450); RED BLOOD COUNT 3.01 M/UL (4.20-5.40); RED CELL DISTRIBUTION WIDTH 15.5 % (11.6-14.8)
--- NOTE | 2020-02-21 03:37 | NUR ---
NURSE NOTES: Pt lying in the bed calmly. On bipap 15/8. 70%, tolerating well. Bed bath given. Will continue to monitor.
[2020-02-21 04:00] VITALS: BP 154/84
[2020-02-21] MEDS: Vancomycin 1 GM in NS 275 ML IVPB SCH ×2 (04:16→15:45)
[2020-02-21] MEDS: Methocarbamol 500mg tab ORAL PRN (05:13)
[2020-02-21] MEDS: NovoLOG Insulin Flexpen SUBQ SCH ×4 (06:15→23:27)
--- NOTE | 2020-02-21 07:39 | NUR ---
NURSE HAND-OFF REPORT: Important Events on Shift: On bipap all night 15/8, 80%, tolerating. Patient Status: c/o generalized pain 10/10, aching, prn given. Diet: CCHO M Pending Orders: [] Pending Results/Labs:[] Pending MD notification:[] Latest Vital Signs: Temperature 96.3 , Pulse 96 , B/P 154 /84 , Respiratory Rate 22 , O2 SAT 96 , Bi-pap, O2 Flow Rate . Vital Sign Comment: [] EKG Rhythm: Sinus Rhythm Rhythm change?: N MD Notified?: Jay briceño MD Response: Latest Pineda Fall Score: 60 Fall Risk: High Risk Safety Measures: Call light Within Reach, Bed Alarm Zone 1, Side Rails Side Rails x2, Bed position Low and Locked. Fall Precautions: Yellow Socks Yellow Gown Door Sign Patient Fall Education Report given to JO-ANN Sharma.
--- NOTE | 2020-02-21 07:40 | NUR ---
NURSE NOTES: Report received from Ward RN. Patient is observed in bed, awake, alert, oriented, and able to make needs known. Patient is on bipap, observed patient being tachypneic this AM, O2 saturation is 98%. IV site is asymptomatic, patent, and intact. HOB is elevated. Bed is in lowest position with side rails up x2 and brakes are engaged. Bed alarm is on. Encouraged pt to use call light when in need of assistance, pt verbalized understanding. Will continue to monitor.
[2020-02-21 07:53] LABS: ALBUMIN 1.9 G/DL (3.4-5.0); ALBUMIN/GLOBULIN RATIO 0.3 (1.0-2.7); BILIRUBIN,DIRECT 0.2 MG/DL (0.0-0.3); BILIRUBIN,TOTAL 0.3 MG/DL (0.2-1.0); CALCIUM 8.2 MG/DL (8.5-10.1); CREATININE 1.2 MG/DL (0.55-1.30)
[2020-02-21 08:00] VITALS: BP 170/86
--- NOTE | 2020-02-21 08:38 | General Progress Note ---
Subjective Date patient seen: Feb 21, 2020 Time patient seen: 07:30 - am Allergies: Coded Allergies: No Known Allergies (Unverified , 07/30/15) Subjective HISTORY OF PRESENT ILLNESS: This is a 59-year-old female who is being seen on the step down unit of [facility]. Patient showing no signs of pain or distress. Pain has been tolerated on the norco. Continues to be on the Bipap. No new complaints at this time. REVIEW OF SYSTEMS: Denies rash, fever, chills, sweating, dizziness, drowsiness, sore throat, or change in her weight. No nausea, vomiting, diarrhea, blood in the stool or urine. No dysuria. Objective Last 24 Hour Vital Signs Date Time Temp Pulse Resp B/P (MAP) Pulse Ox O2 Delivery O2 Flow Rate FiO2 02/21/20 07:01 121 28 99 60 02/21/20 04:00 96 02/21/20 04:00 80 02/21/20 04:00 96.3 85 22 154/84 (107) 96 02/21/20 04:00 Bi-pap 02/21/20 03:31 60 02/21/20 03:30 93 22 97 80 02/21/20 00:00 85 02/21/20 00:00 97.6 87 20 145/79 (101) 100 02/21/20 00:00 Bi-pap 02/21/20 00:00 80 02/20/20 23:49 80 02/20/20 23:48 92 22 96 70 02/20/20 20:30 103 145/74 02/20/20 20:00 97.5 97 20 145/74 (97) 100 02/20/20 20:00 102 02/20/20 20:00 Bi-pap 02/20/20 19:03 103 18 100 70 02/20/20 16:46 70 02/20/20 16:00 Bi-pap 02/20/20 16:00 102 02/20/20 16:00 98.6 103 20 146/80 (102) 95 02/20/20 15:30 95 22 100 70 02/20/20 12:56 90 18 150/76 95 02/20/20 12:26 90 18 150/76 95 02/20/20 12:00 86 02/20/20 12:00 Bi-pap 02/20/20 12:00 96.8 90 18 150/76 (100) 95 02/20/20 10:30 98 24 100 70 02/20/20 09:11 138 106/80 02/20/20 09:10 106/80 02/20/20 09:09 138 106/80 Intake and Output 02/20/20 02/21/20 19:00 07:00 Intake Total 320 ml 360 ml Output Total 600 ml 450 ml Balance -280 ml -90 ml Intake Oral 320 ml 360 ml Output Urine Total 600 ml 450 ml # Bowel Movements 5 1 Laboratory Tests 02/20/20 09:08: POC Whole Blood Glucose [Pending] 02/20/20 09:58: Arterial Blood pH 7.363, Arterial Blood Partial Pressure CO2 57.9*H, Arterial Blood Partial Pressure O2 75.2, Arterial Blood HCO3 32.2H, Arterial Blood Oxygen Saturation 94.2L, Arterial Blood Base Excess 5.8H, Bryan Test Positive 02/20/20 23:24: POC Whole Blood Glucose 234H 02/21/20 02:50: White Blood Count 10.0, Red Blood Count 3.01L, Hemoglobin 8.5L, Hematocrit 28.4L , Mean Corpuscular Volume 94, Mean Corpuscular Hemoglobin 28.3, Mean Corpuscular Hemoglobin Concent 30.1L, Red Cell Distribution Width 15.5H, Platelet Count 515H, Mean Platelet Volume 5.9L, Neutrophils (%) (Auto) , Lymphocytes (%) (Auto) , Monocytes (%) (Auto) , Eosinophils (%) (Auto) , Basophils (%) (Auto) , Sodium Level 135L, Potassium Level 5.0, Chloride Level 100, Carbon Dioxide Level 34H, Anion Gap 1L, Blood Urea Nitrogen 43H, Creatinine 1.2, Estimat Glomerular Filtration Rate 55.6, Glucose Level 247H, Calcium Level 8.2L, Total Bilirubin 0.3, Direct Bilirubin 0.2, Aspartate Amino Transf (AST/SGOT) 60H, Alanine Aminotransferase (ALT/SGPT) 20, Alkaline Phosphatase 575H, Total Protein 7.7, Albumin 1.9L, Globulin 5.8, Albumin/Globulin Ratio 0.3L, Vancomycin Level Trough 20.0H 02/21/20 05:01: POC Whole Blood Glucose 284H Height (Feet): 5 Height (Inches): 1.00 Weight (Pounds): 168 Objective PHYSICAL EXAMINATION: GENERAL: Alert, awake, and oriented. LUNGS: Decreased breath sounds bilaterally. HEART: S1 and S2 regular. ABDOMEN: Obese. EXTREMITIES: No cyanosis. No clubbing. NEURO: No changes. Assessment/Plan Assessment/Plan: (1) Cervical DDD (2) Cervical Spondylosis (3) Covid 19 + Patient to be continued on [place], Neurontin, Robaxin and Lidocaine patch. D/w Dr. Landa and he concurred. Monster Corey Feb 21, 2020 08:38
[2020-02-21] MEDS: Levemir Flexpen SUBQ SCH ×2 (09:00→17:34)
[2020-02-21] MEDS: Aspirin Baby 81mg ORAL SCH (09:14)
[2020-02-21] MEDS: Enoxaparin 80mg Inj SUBQ SCH ×2 (09:18→21:21)
[2020-02-21] MEDS: Imdur 30mg tab ORAL SCH (09:24)
--- NOTE | 2020-02-21 11:25 | Infectious Diseases Prog Note ---
Assessment/Plan Assessment/Plan antibiotics : vancomycin iv, remdesivir A 1. MRSA cavitary pneumonia sputum AFB negative x 3 2. MRSA sepsis r/o endocarditis 3. diabetes mellitus 4. hypertension 5. COPD 6. respiratory failure on bipap 7. aortic stenosis 8. COVID 19 pneumonia on bipap 70 percent FiO2, saturation 96 % P 1. continue iv vancomycin 22 more days 2. continue remdesivir day 4 3. continue decadron day 4 4. will follow up cultures 5. continue isolation Subjective Constitutional: Denies: fever, chills Respiratory: Reports: shortness of breath, dry cough - decreased Gastrointestinal/Abdominal: Denies: nausea, vomiting, diarrhea Musculoskeletal: Reports: pain Allergies: Coded Allergies: No Known Allergies (Unverified , 07/30/15) Objective Last 24 Hour Vital Signs Date Time Temp Pulse Resp B/P (MAP) Pulse Ox O2 Delivery O2 Flow Rate FiO2 02/21/20 09:30 114 170/86 02/21/20 09:24 170/86 02/21/20 09:16 114 170/86 02/21/20 08:00 Bi-pap 02/21/20 08:00 98.1 114 25 170/86 (114) 96 02/21/20 08:00 80 02/21/20 07:40 117 02/21/20 07:01 121 28 99 60 02/21/20 04:00 96 02/21/20 04:00 80 02/21/20 04:00 96.3 85 22 154/84 (107) 96 02/21/20 04:00 Bi-pap 02/21/20 03:31 60 02/21/20 03:30 93 22 97 80 02/21/20 00:00 85 02/21/20 00:00 97.6 87 20 145/79 (101) 100 02/21/20 00:00 Bi-pap 02/21/20 00:00 80 02/20/20 23:49 80 02/20/20 23:48 92 22 96 70 02/20/20 20:30 103 145/74 02/20/20 20:00 97.5 97 20 145/74 (97) 100 02/20/20 20:00 102 02/20/20 20:00 Bi-pap 02/20/20 19:03 103 18 100 70 02/20/20 16:46 70 02/20/20 16:00 Bi-pap 02/20/20 16:00 102 02/20/20 16:00 98.6 103 20 146/80 (102) 95 02/20/20 15:30 95 22 100 70 02/20/20 12:56 90 18 150/76 95 02/20/20 12:26 90 18 150/76 95 02/20/20 12:00 86 02/20/20 12:00 Bi-pap 02/20/20 12:00 96.8 90 18 150/76 (100) 95 Height (Feet): 5 Height (Inches): 1.00 Weight (Pounds): 168 Microbiology Date/Time Source Procedure Growth Status 02/18/20 15:50 Nasopharynx Coronavirus COVID-19 PCR ([facility]) - Final Complete 02/18/20 11:24 Nasopharynx SARS-CoV-2 RdRp Gene Assay - Final Complete Laboratory Tests Test 02/20/20 23:24 02/21/20 02:50 02/21/20 05:01 POC Whole Blood Glucose 234 MG/DL (74-106) H 284 MG/DL (74-106) H White Blood Count 10.0 K/UL (4.8-10.8) Red Blood Count 3.01 M/UL (4.20-5.40) L Hemoglobin 8.5 G/DL (12.0-16.0) L Hematocrit 28.4 % (37.0-47.0) L Mean Corpuscular Volume 94 FL (80-99) Mean Corpuscular Hemoglobin 28.3 PG (27.0-31.0) Mean Corpuscular Hemoglobin Concent 30.1 G/DL (32.0-36.0) L Red Cell Distribution Width 15.5 % (11.6-14.8) H Platelet Count 515 K/UL (150-450) H Mean Platelet Volume 5.9 FL (6.5-10.1) L Neutrophils (%) (Auto) % (45.0-75.0) Lymphocytes (%) (Auto) % (20.0-45.0) Monocytes (%) (Auto) % (1.0-10.0) Eosinophils (%) (Auto) % (0.0-3.0) Basophils (%) (Auto) % (0.0-2.0) Sodium Level 135 MMOL/L (136-145) L Potassium Level 5.0 MMOL/L (3.5-5.1) Chloride Level 100 MMOL/L (98-107) Carbon Dioxide Level 34 MMOL/L (21-32) H Anion Gap 1 mmol/L (5-15) L Blood Urea Nitrogen 43 mg/dL (7-18) H Creatinine 1.2 MG/DL (0.55-1.30) Estimat Glomerular Filtration Rate 55.6 mL/min (>60) Glucose Level 247 MG/DL (74-106) H Calcium Level 8.2 MG/DL (8.5-10.1) L Total Bilirubin 0.3 MG/DL (0.2-1.0) Direct Bilirubin 0.2 MG/DL (0.0-0.3) Aspartate Amino Transf (AST/SGOT) 60 U/L (15-37) H Alanine Aminotransferase (ALT/SGPT) 20 U/L (12-78) Alkaline Phosphatase 575 U/L (46-116) H Total Protein 7.7 G/DL (6.4-8.2) Albumin 1.9 G/DL (3.4-5.0) L Globulin 5.8 g/dL Albumin/Globulin Ratio 0.3 (1.0-2.7) L Vancomycin Level Trough 20.0 ug/mL (5.0-12.0) H Current Medications Medications (Trade) Dose Ordered Sig/Ivana Route PRN Reason Start Time Stop Time Status Last Admin Dose Admin Acetaminophen (Tylenol) 650 mg Q6H PRN ORAL MILD PAIN, FEVER 01/28/20 22:45 02/27/20 22:44 02/18/20 04:19 Acetaminophen/ Hydrocodone Bitart ([place] 10/325) 1 tab Q4H PRN ORAL Moderate Pain (Pain Scale 4-6) 02/15/20 09:45 02/22/20 09:44 02/21/20 08:16 Amlodipine Besylate (Norvasc) 10 mg DAILY ORAL 02/01/20 09:00 03/02/20 08:59 02/21/20 09:30 Aspirin (ASA) 81 mg DAILY ORAL 02/14/20 09:00 03/30/20 08:59 02/21/20 09:14 Clonidine HCl (Catapres Tab) 0.1 mg Q4H PRN ORAL SBP > 150mmHg 02/06/20 07:00 05/06/20 06:59 02/18/20 14:21 Dexamethasone (Decadron) 6 mg Q24H ORAL 02/18/20 18:00 02/27/20 18:01 02/20/20 17:26 Dextrose (Dextrose 50%) 25 ml Q30M PRN IV Hypoglycemia 01/28/20 22:45 04/27/20 22:44 Dextrose (Dextrose 50%) 50 ml Q30M PRN IV Hypoglycemia 01/28/20 22:45 04/27/20 22:44 Enoxaparin Sodium (Lovenox) 80 mg Q12HR SUBQ 02/13/20 18:54 05/13/20 18:53 02/21/20 09:18 Epoetin Haseeb (Epoetin Haseeb-EPBX(NON ESRD)) 8,000 unit WED-WED-WED SUBQ 02/05/20 21:00 05/05/20 20:59 02/19/20 21:53 Gabapentin (Neurontin) 300 mg THREE TIMES A DAY ORAL 02/11/20 09:30 03/12/20 09:29 02/21/20 09:14 Guaifenesin/ Dextromethorphan (Robitussin DM Syrup) 15 ml Q4H PRN ORAL For Cough 02/12/20 16:53 05/12/20 16:52 02/19/20 22:21 Insulin Aspart (NovoLOG) Q6HR SUBQ 01/29/20 00:00 04/28/20 00:00 02/21/20 06:15 Insulin Detemir (Levemir) 10 units BID SUBQ 02/08/20 18:00 05/04/20 17:59 02/20/20 18:00 Ipratropium [place] (Atrovent Inh) 1 puffs Q4H INH 02/18/20 18:00 03/19/20 17:59 02/21/20 09:25 Isosorbide Mononitrate (Imdur) 30 mg DAILY ORAL 02/02/20 09:00 03/03/20 08:59 02/21/20 09:24 Lidocaine (Lidoderm 5% PATCH) 1 patch DAILY TDERMAL 02/11/20 09:30 05/11/20 09:29 02/21/20 09:18 Lorazepam (Ativan) 1 mg Q4H PRN ORAL For Anxiety 02/14/20 20:15 02/21/20 20:14 02/20/20 12:26 Methocarbamol (Robaxin) 500 mg Q8H PRN ORAL muscle spasm 02/11/20 09:30 03/12/20 09:29 02/21/20 05:13 Metoprolol Tartrate (Lopressor) 25 mg Q12HR ORAL 02/04/20 21:00 05/04/20 20:59 02/21/20 09:16 Nitroglycerin (Ntg) 0.4 mg Q5M PRN SL Prn Chest Pain 02/01/20 08:00 03/02/20 07:59 02/03/20 06:17 Ondansetron HCl (Zofran) 4 mg Q6H PRN IVP Nausea & Vomiting 01/28/20 22:45 02/27/20 22:44 02/01/20 18:10 Pantoprazole (Protonix) 40 mg BIAC ORAL 02/16/20 16:30 03/17/20 16:29 02/21/20 06:14 Remdesivir 100 mg/ Sodium Chloride 250 ml @ 250 mls/hr Q24H IV 02/19/20 18:00 02/22/20 18:59 02/20/20 17:26 Vancomycin HCl (Vanco pharmacy to dose) 1 ea DAILY PRN MISC Per rx protocol 02/13/20 11:30 03/14/20 11:29 Vancomycin HCl 1 gm/Sodium Chloride 275 ml @ 183.708 mls/hr Q12HR@0400,1600 IVPB 02/19/20 16:00 02/24/20 15:59 02/21/20 04:16 Messi Lopez MD Feb 21, 2020 11:25
[2020-02-21 11:56] VITALS: BP 152/77
--- NOTE | 2020-02-21 12:50 | NUR ---
NURSE NOTES: Patient is observed in bed, asleep but arousable by voice. Denies pain at this time. Will continue to monitor.
[2020-02-21] MEDS: LORazepam 1mg tab ORAL PRN ×2 (13:35→23:16)
--- NOTE | 2020-02-21 13:51 | Critical Care Progress Note ---
Assessment/Plan Assessment/Plan IMPRESSION acute respiratory failure leukocytosis sepsis ARF toxic met encephalopathy COPD DM poor control cavitary lesion negative AFB groundglass infiltrates NSTEMI severe PCM hypertension left shoulder pain bacteremia MRSA hematuria COVID PLAN DVT prophylaxis antibiotics per ID VATS on hold BIPAP- off if able; check ABG titrate BP meds diurese ABLE anxious; on ativan not improved defer lung biopsy for now impression, plan, and exam edited and reviewed in detail care discussed with manager transition - Subjective Condition: unchanged EKG Rhythm: Sinus Rhythm I&O: Intake and Output 02/20/20 02/21/20 19:00 07:00 Intake Total 320 ml 360 ml Output Total 600 ml 450 ml Balance -280 ml -90 ml Intake Oral 320 ml 360 ml Output Urine Total 600 ml 450 ml # Bowel Movements 5 1 Critical Care - Objective Last 24 Hour Vital Signs Date Time Temp Pulse Resp B/P (MAP) Pulse Ox O2 Delivery O2 Flow Rate FiO2 02/21/20 13:35 110 25 152/77 97 02/21/20 12:00 Bi-pap 02/21/20 12:00 80 02/21/20 11:56 97.5 114 20 152/77 (102) 97 02/21/20 11:45 111 02/21/20 09:30 114 170/86 02/21/20 09:24 170/86 02/21/20 09:16 114 170/86 02/21/20 08:00 Bi-pap 02/21/20 08:00 98.1 114 25 170/86 (114) 96 02/21/20 08:00 80 02/21/20 07:40 117 02/21/20 07:01 121 28 99 60 02/21/20 04:00 96 02/21/20 04:00 80 02/21/20 04:00 96.3 85 22 154/84 (107) 96 02/21/20 04:00 Bi-pap 02/21/20 03:31 60 02/21/20 03:30 93 22 97 80 02/21/20 00:00 85 02/21/20 00:00 97.6 87 20 145/79 (101) 100 02/21/20 00:00 Bi-pap 02/21/20 00:00 80 02/20/20 23:49 80 02/20/20 23:48 92 22 96 70 02/20/20 20:30 103 145/74 02/20/20 20:00 97.5 97 20 145/74 (97) 100 02/20/20 20:00 102 02/20/20 20:00 Bi-pap 02/20/20 19:03 103 18 100 70 02/20/20 16:46 70 02/20/20 16:00 Bi-pap 02/20/20 16:00 102 02/20/20 16:00 98.6 103 20 146/80 (102) 95 02/20/20 15:30 95 22 100 70 Objective: deferred due to COVID Micro: Microbiology Date/Time Source Procedure Growth Status 02/18/20 15:50 Nasopharynx Coronavirus COVID-19 PCR ([facility]) - Final Complete Accucheck: 207 Germán Feliz MD Feb 21, 2020 13:51
[2020-02-21] MEDS: Nitroglycerin Subl 0.4mg tab SL PRN (14:57)
--- NOTE | 2020-02-21 15:01 | NUR ---
NURSE NOTES: Patient is complaining of 8/10 chest pain that radiates to the stomach, NTG sublingual was given. Vital signs are as follows: BP: 168/88, HR: 108, RR: 20, O2: 96% on bipap. Will continue to monitor.
--- NOTE | 2020-02-21 15:09 | NUR ---
NURSE NOTES: Patient states relief of chest pain with NTG sublingual. Vital signs are stable. Will continue to monitor.
--- NOTE | 2020-02-21 15:26 | NUR ---
CASE MANAGEMENT:REVIEW 02/21/20 SI: ACUTE RESPIRATORY FAILURE. NOW COVID POSITIVE SEPSIS D/T MRSA BACTEREMIA. NSTEMI 96.4 83 21 119/58 100% ON BIPAP W/80% FIO2 IS: IV REMDESIVIR Q24 (/5) IV VANCOMYCIN Q24 IV ZOSYN Q8HRS HHN Q4HRS DECADRON PO Q24 LOVENOX SQ Q12 : TELEMETRY STATUS DCP: FROM HOME
[2020-02-21 16:00] VITALS: BP 160/85
[2020-02-21] MEDS: Maintenance Dose:Remdesivir 100mg/NS 230ml x 4 Doses IV SCH ×2 (17:52)
--- NOTE | 2020-02-21 19:16 | NUR ---
NURSE HAND-OFF REPORT: Important Events on Shift: Patient unable to tolerate without bipap. Patient Status: stable condition Diet: [facility] med diet. Pending Orders: [] Pending Results/Labs:[] Pending MD notification:[] Latest Vital Signs: Temperature 97.0 , Pulse 110 , B/P 160 /85 , Respiratory Rate 28 , O2 SAT 96 , Bi-pap, O2 Flow Rate . Vital Sign Comment: [] EKG Rhythm: Sinus Tachycardia Rhythm change?: N MD Notified?: Jay briceño MD Response: Latest Pineda Fall Score: 60 Fall Risk: High Risk Safety Measures: Call light Within Reach, Bed Alarm Zone 1, Side Rails Side Rails x2, Bed position Low and Locked. Fall Precautions: Yellow Socks Yellow Gown Door Sign Patient Fall Education Report given to Alondra BUSCH.
--- NOTE | 2020-02-21 19:17 | NUR ---
NURSE NOTES: Received report from JO-ANN Sharma. Pt observed to be on BiPAP with settings 15/8 80% fio2. saturating 99% Pt running Rendesmivir on right forearm. Flores is draining well to gravity. Bed kept in lowest and locked position. Bed alarm on. Side rails up x3. Call light within reach. Will continue monitoring.
[2020-02-21 20:00] VITALS: BP 146/78
--- NOTE | 2020-02-21 21:00 | NUR ---
NURSE NOTES: Pt continues to bang on bed yelling for nurse and RT; seen removing her BiPAP 4x during shift. Requests PRN for 'anxiety' but Ativan order . Left message for Dr. Feliz, awaiting call back for orders.
[2020-02-21] MEDS: Epoetin Alfa-EPBX (NON ESRD)4000 units/ml vial SUBQ SCH (21:22)
--- NOTE | 2020-02-21 21:29 | General Progress Note ---
Subjective Allergies: Coded Allergies: No Known Allergies (Unverified , 07/30/15) Subjective Above noted d/w staff radiologist no abdominal complaints tolerating PO Objective Last 24 Hour Vital Signs Date Time Temp Pulse Resp B/P (MAP) Pulse Ox O2 Delivery O2 Flow Rate FiO2 02/21/20 21:20 84 146/78 02/21/20 20:00 97.0 100 23 146/78 (100) 99 02/21/20 20:00 80 02/21/20 19:07 106 02/21/20 18:45 110 28 96 80 02/21/20 16:00 80 02/21/20 16:00 97.0 108 20 160/85 (110) 97 02/21/20 16:00 Bi-pap 02/21/20 15:54 170/85 02/21/20 15:38 110 27 96 60 02/21/20 15:14 104 02/21/20 14:57 173/87 02/21/20 13:35 110 25 152/77 97 02/21/20 12:00 Bi-pap 02/21/20 12:00 80 02/21/20 11:56 97.5 114 20 152/77 (102) 97 02/21/20 11:45 111 02/21/20 11:42 108 24 99 60 02/21/20 09:30 114 170/86 02/21/20 09:24 170/86 02/21/20 09:16 114 170/86 02/21/20 08:00 Bi-pap 02/21/20 08:00 98.1 114 25 170/86 (114) 96 02/21/20 08:00 80 02/21/20 07:40 117 02/21/20 07:01 121 28 99 60 02/21/20 04:00 96 02/21/20 04:00 80 02/21/20 04:00 96.3 85 22 154/84 (107) 96 02/21/20 04:00 Bi-pap 02/21/20 03:31 60 02/21/20 03:30 93 22 97 80 02/21/20 00:00 85 02/21/20 00:00 97.6 87 20 145/79 (101) 100 02/21/20 00:00 Bi-pap 02/21/20 00:00 80 02/20/20 23:49 80 02/20/20 23:48 92 22 96 70 Intake and Output 02/20/20 02/21/20 19:00 07:00 Intake Total 320 ml 360 ml Output Total 600 ml 450 ml Balance -280 ml -90 ml Intake Oral 320 ml 360 ml Output Urine Total 600 ml 450 ml # Bowel Movements 5 1 Laboratory Tests 02/20/20 23:24: POC Whole Blood Glucose 234H 02/21/20 02:50: White Blood Count 10.0, Red Blood Count 3.01L, Hemoglobin 8.5L, Hematocrit 28.4L , Mean Corpuscular Volume 94, Mean Corpuscular Hemoglobin 28.3, Mean Corpuscular Hemoglobin Concent 30.1L, Red Cell Distribution Width 15.5H, Platelet Count 515H , Mean Platelet Volume 5.9L, Neutrophils (%) (Auto) , Lymphocytes (%) (Auto) , Monocytes (%) (Auto) , Eosinophils (%) (Auto) , Basophils (%) (Auto) , Sodium Level 135L, Potassium Level 5.0, Chloride Level 100, Carbon Dioxide Level 34H, Anion Gap 1L, Blood Urea Nitrogen 43H, Creatinine 1.2, Estimat Glomerular Filtration Rate 55.6, Glucose Level 247H, Calcium Level 8.2L, Total Bilirubin 0.3, Direct Bilirubin 0.2, Aspartate Amino Transf (AST/SGOT) 60H, Alanine Aminotransferase (ALT/SGPT) 20, Alkaline Phosphatase 575H, Total Protein 7.7, Albumin 1.9L, Globulin 5.8, Albumin/Globulin Ratio 0.3L, Vancomycin Level Trough 20.0H 02/21/20 05:01: POC Whole Blood Glucose 284H 02/21/20 11:45: POC Whole Blood Glucose [Pending] 02/21/20 17:25: POC Whole Blood Glucose [Pending] Height (Feet): 5 Height (Inches): 1.00 Weight (Pounds): 168 Objective Exam limited due to COVID isolation Assessment/Plan Assessment/Plan: Assessment - hepatitis C with nodular liver, PCR (+) - constipation - resolved - Swallowing Sx - resolved - HTN - COPD - Lung mass - DM - PSVT - anemia Recommendations - po as tolerated - follow LFT - PPI - Elevate HOB - outpatient HCV eradication - laxative PRN - Outpatient colonoscopy once recovered from current illness Feliberto Pérez MD Feb 21, 2020 21:29
--- NOTE | 2020-02-21 23:00 | NUR ---
NURSE NOTES: No response from Dr. Feliz. Per KALYN Saucedo to renew and administer PRN Ativan 1 mg. No s/s of distress. Will monitor.
[2020-02-22] VITALS: BP 149/85
[2020-02-22] MEDS: Ipratropium Bromide Inhaler INH SCH ×7 (00:36→22:00)
[2020-02-22 03:01] LABS: HEMATOCRIT 26.6 % (37.0-47.0); HEMOGLOBIN 7.9 G/DL (12.0-16.0); MEAN CORPUSCULAR VOLUME 95 FL (80-99); PLATELET COUNT 463 K/UL (150-450); RED CELL DISTRIBUTION WIDTH 15.3 % (11.6-14.8); WHITE BLOOD COUNT 8.7 K/UL (4.8-10.8)
[2020-02-22 03:23] LABS: ALANINE AMINOTRANSFERASE 26 U/L (12-78); ALBUMIN 1.6 G/DL (3.4-5.0); ALBUMIN/GLOBULIN RATIO 0.3 (1.0-2.7); ALKALINE PHOSPHATASE 594 U/L (46-116); ASPARTATE AMINO TRANSFERASE 65 U/L (15-37); BILIRUBIN,DIRECT 0.1 MG/DL (0.0-0.3); BILIRUBIN,TOTAL 0.3 MG/DL (0.2-1.0); BLOOD UREA NITROGEN 45 mg/dL (7-18); CALCIUM 7.7 MG/DL (8.5-10.1); CARBON DIOXIDE 37 MMOL/L (21-32); CHLORIDE 104 MMOL/L (98-107); CREATININE 1.2 MG/DL (0.55-1.30); POTASSIUM 5.1 MMOL/L (3.5-5.1); SODIUM 138 MMOL/L (136-145)
[2020-02-22 04:00] VITALS: BP 164/84
[2020-02-22] MEDS: LORazepam 1mg tab ORAL PRN ×2 (05:57→21:21)
[2020-02-22] MEDS: NovoLOG Insulin Flexpen SUBQ SCH ×4 (06:07→23:59)
--- NOTE | 2020-02-22 06:36 | NUR ---
NURSE NOTES: Pt continuously removes BiPAP throughout the shift despite all needs met. Desaturates to 80's on room air. Reminded pt to utilize call light if needing assistance. Pt requesting, "the pill to help her relax." PRN given. Offered nutrition and hydration as needed. Kept personal belongings and cell phone close to patient. Pt in stable condition.
--- NOTE | 2020-02-22 07:14 | NUR ---
NURSE HAND-OFF REPORT: Important Events on Shift: Pt noncompliant throughout night; plan for ABG and resp weaning Patient Status: Stable Diet: CCHO Med 1:1 Pending Orders: N Pending Results/Labs: Y Pending notification: N Latest Vital Signs: Temperature 97.4 , Pulse 86 , B/P 128 /80 , Respiratory Rate 22 , O2 SAT 100 , Bi-pap, O2 Flow Rate . Vital Sign Comment: HTN EKG Rhythm: Sinus Rhythm Rhythm change?: N MD Notified?: Y -dr. navarro HERNANDES Response: Latest Pineda Fall Score: 60 Fall Risk: High Risk Safety Measures: Call light Within Reach, Bed Alarm Zone 1, Side Rails Side Rails x2, Bed position Low and Locked. Fall Precautions: Yellow Socks Yellow Gown Door Sign Patient Fall Education Report given to .
[2020-02-22 07:43] VITALS: BP 154/71
[2020-02-22] MEDS: Vancomycin 750mg/NS 275ml IVPB SCH ×4 (07:44→20:45)
--- NOTE | 2020-02-22 08:42 | NUR ---
NURSE NOTES: Patient unable to tolerated off Bipap, patient desaturates to 80%, placed patient back on Bipap 15/8 FiO2 100%, SpO2 98%. Patient noted with PO medications and PO meals. Called and spoke with Dr. Feliz regarding assessments, per Dr. Feliz, begin patient on High lalit meter oxygen, RT made aware. Also informed Dr. Feliz that patient hemoglobin level today is 7.9, hematocrit 26.6, BP 151/62, HR 95. Dr. Feliz acknowledged and ordered CBC and BMP tomorrow morning, 02/23/2020. Orders entered, noted, and carried out. Will continue to monitor patient.
--- NOTE | 2020-02-22 08:48 | Critical Care Progress Note ---
Assessment/Plan Assessment/Plan IMPRESSION acute respiratory failure leukocytosis sepsis ARF toxic met encephalopathy COPD DM poor control cavitary lesion negative AFB groundglass infiltrates NSTEMI severe PCM hypertension left shoulder pain bacteremia MRSA hematuria COVID anemia diabetes PLAN DVT prophylaxis antibiotics per ID VATS on hold BIPAP-needed titrate BP meds transfuse anxious; on ativan not improved defer lung biopsy for now will update family may need intubation impression, plan, and exam edited and reviewed in detail care discussed with bracelet form coverer - Subjective Interval Events: worsening overall cannot maintain sats off BIPAP ROS Limited/Unobtainable: Yes Condition: critical EKG Rhythm: Sinus Rhythm I&O: l Intake and Output 02/21/20 02/22/20 19:00 07:00 Intake Total 400 ml 210 ml Output Total 850 ml 550 ml Balance -450 ml -340 ml Intake Oral 400 ml 210 ml Output Urine Total 850 ml 550 ml # Bowel Movements 2 Critical Care - Objective Last 24 Hour Vital Signs Date Time Temp Pulse Resp B/P (MAP) Pulse Ox O2 Delivery O2 Flow Rate FiO2 02/22/20 08:00 100 02/22/20 08:00 Bi-pap 02/22/20 07:43 95.5 95 20 154/71 (98) 100 02/22/20 07:10 93 34 96 80 02/22/20 06:27 86 22 128/80 100 02/22/20 05:57 88 20 122/82 98 02/22/20 04:00 97.4 92 20 164/84 (110) 100 02/22/20 04:00 80 02/22/20 04:00 Bi-pap 02/22/20 03:27 90 02/22/20 02:52 88 32 96 80 02/22/20 00:09 87 20 149/85 99 02/22/20 00:00 80 02/22/20 00:00 97.8 87 20 149/85 (106) 99 02/22/20 00:00 Bi-pap 02/21/20 23:30 82 02/21/20 23:16 82 23 140/42 96 02/21/20 22:52 105 26 97 80 02/21/20 21:20 84 146/78 02/21/20 20:00 Bi-pap 02/21/20 20:00 97.0 100 23 146/78 (100) 99 02/21/20 20:00 80 02/21/20 19:07 106 02/21/20 18:45 110 28 96 80 02/21/20 16:00 80 02/21/20 16:00 97.0 108 20 160/85 (110) 97 02/21/20 16:00 Bi-pap 02/21/20 15:54 170/85 02/21/20 15:38 110 27 96 60 02/21/20 15:14 104 02/21/20 14:57 173/87 02/21/20 13:35 110 25 152/77 97 02/21/20 12:00 Bi-pap 02/21/20 12:00 80 02/21/20 11:56 97.5 114 20 152/77 (102) 97 02/21/20 11:45 111 02/21/20 11:42 108 24 99 60 02/21/20 09:30 114 170/86 02/21/20 09:24 170/86 02/21/20 09:16 114 170/86 Labs: Laboratory Tests Test 02/21/20 11:45 02/21/20 17:25 02/21/20 23:19 02/22/20 02:50 POC Whole Blood Glucose Pending Pending 251 MG/DL (74-106) H White Blood Count 8.7 K/UL (4.8-10.8) Red Blood Count 2.80 M/UL (4.20-5.40) L Hemoglobin 7.9 G/DL (12.0-16.0) L Hematocrit 26.6 % (37.0-47.0) L Mean Corpuscular Volume 95 FL (80-99) Mean Corpuscular Hemoglobin 28.1 PG (27.0-31.0) Mean Corpuscular Hemoglobin Concent 29.7 G/DL (32.0-36.0) L Red Cell Distribution Width 15.3 % (11.6-14.8) H Platelet Count 463 K/UL (150-450) H Mean Platelet Volume 5.6 FL (6.5-10.1) L Neutrophils (%) (Auto) % (45.0-75.0) Lymphocytes (%) (Auto) % (20.0-45.0) Monocytes (%) (Auto) % (1.0-10.0) Eosinophils (%) (Auto) % (0.0-3.0) Basophils (%) (Auto) % (0.0-2.0) Sodium Level 138 MMOL/L (136-145) Potassium Level 5.1 MMOL/L (3.5-5.1) Chloride Level 104 MMOL/L (98-107) Carbon Dioxide Level 37 MMOL/L (21-32) H Blood Urea Nitrogen 45 mg/dL (7-18) H Creatinine 1.2 MG/DL (0.55-1.30) Estimat Glomerular Filtration Rate 55.6 mL/min (>60) Glucose Level 281 MG/DL (74-106) H Calcium Level 7.7 MG/DL (8.5-10.1) L Total Bilirubin 0.3 MG/DL (0.2-1.0) Direct Bilirubin 0.1 MG/DL (0.0-0.3) Aspartate Amino Transf (AST/SGOT) 65 U/L (15-37) H Alanine Aminotransferase (ALT/SGPT) 26 U/L (12-78) Alkaline Phosphatase 594 U/L (46-116) H Total Protein 6.5 G/DL (6.4-8.2) Albumin 1.6 G/DL (3.4-5.0) L Globulin 4.9 g/dL Albumin/Globulin Ratio 0.3 (1.0-2.7) L Vancomycin Level Trough 22.9 ug/mL (5.0-12.0) H Test 02/22/20 06:01 POC Whole Blood Glucose 273 MG/DL (74-106) H Objective: deferred due to COVID Accucheck: 273 Germán Feliz MD Feb 22, 2020 08:48
[2020-02-22] MEDS: Levemir Flexpen SUBQ SCH ×2 (09:00→17:24)
[2020-02-22] MEDS: Enoxaparin 80mg Inj SUBQ SCH ×2 (09:00→20:47)
[2020-02-22] MEDS: Imdur 30mg tab ORAL SCH ×2 (09:00→09:26)
[2020-02-22] MEDS: Aspirin Baby 81mg ORAL SCH (09:26)
[2020-02-22 12:00] VITALS: BP 141/89
--- NOTE | 2020-02-22 12:00 | NUR ---
NURSE NOTES: Patient unable to tolerate High lalit oxygen and off bipap, patient desaturates to 80 % and patient states unable to breathe good, patient also noted wit pCO2 [address] Mahan acknowledged and ordered chest x ray tomorrow, continue bipap, ABG tomorrow morning. Orders entered, noted, and carried out. Will continue to monitor patient.
--- NOTE | 2020-02-22 12:15 | Infectious Diseases Prog Note ---
Assessment/Plan Assessment/Plan A 1. cavitary pneumonia with MRSA sputum AFB negative x 3 2. staph aureus (MRSA) sepsis 3. diabetes mellitus 4. hypertension 5. COPD 6. renal failure 7. aortic stenosis 8. Anemia 9. CHF, EF=40-45% 10. COVID19 pneumonia 11. Hypercapnic/ hypoxic respiratory failure P 1. Continue IV Vancomycin X 21 days 2. Continue Dexamethasone 3. Continue Remdesivir until tonight Subjective ROS Limited/Unobtainable: Yes Allergies: Coded Allergies: No Known Allergies (Unverified , 07/30/15) Objective Last 24 Hour Vital Signs Date Time Temp Pulse Resp B/P (MAP) Pulse Ox O2 Delivery O2 Flow Rate FiO2 02/22/20 11:13 89 29 95 90 02/22/20 09:26 91 154/71 02/22/20 09:26 91 154/71 02/22/20 08:00 91 02/22/20 08:00 100 02/22/20 08:00 Bi-pap 02/22/20 07:43 95.5 95 20 154/71 (98) 100 02/22/20 07:10 93 34 96 80 02/22/20 06:27 86 22 128/80 100 02/22/20 05:57 88 20 122/82 98 02/22/20 04:00 97.4 92 20 164/84 (110) 100 02/22/20 04:00 80 02/22/20 04:00 Bi-pap 02/22/20 03:27 90 02/22/20 02:52 88 32 96 80 02/22/20 00:09 87 20 149/85 99 02/22/20 00:00 80 02/22/20 00:00 97.8 87 20 149/85 (106) 99 02/22/20 00:00 Bi-pap 02/21/20 23:30 82 02/21/20 23:16 82 23 140/42 96 02/21/20 22:52 105 26 97 80 02/21/20 21:20 84 146/78 02/21/20 20:00 Bi-pap 02/21/20 20:00 97.0 100 23 146/78 (100) 99 02/21/20 20:00 80 02/21/20 19:07 106 02/21/20 18:45 110 28 96 80 02/21/20 16:00 80 02/21/20 16:00 97.0 108 20 160/85 (110) 97 02/21/20 16:00 Bi-pap 02/21/20 15:54 170/85 02/21/20 15:38 110 27 96 60 02/21/20 15:14 104 02/21/20 14:57 173/87 02/21/20 13:35 110 25 152/77 97 Height (Feet): 5 Height (Inches): 1.00 Weight (Pounds): 168 HEENT: mucous membranes moist Respiratory/Chest: other - on BIPAP Cardiovascular: normal rate Abdomen: soft, non tender Neurologic/Psychiatric: other - sleeping Laboratory Tests Test 02/21/20 17:25 02/21/20 23:19 02/22/20 02:50 02/22/20 06:01 POC Whole Blood Glucose Pending 251 MG/DL (74-106) H 273 MG/DL (74-106) H White Blood Count 8.7 K/UL (4.8-10.8) Red Blood Count 2.80 M/UL (4.20-5.40) L Hemoglobin 7.9 G/DL (12.0-16.0) L Hematocrit 26.6 % (37.0-47.0) L Mean Corpuscular Volume 95 FL (80-99) Mean Corpuscular Hemoglobin 28.1 PG (27.0-31.0) Mean Corpuscular Hemoglobin Concent 29.7 G/DL (32.0-36.0) L Red Cell Distribution Width 15.3 % (11.6-14.8) H Platelet Count 463 K/UL (150-450) H Mean Platelet Volume 5.6 FL (6.5-10.1) L Neutrophils (%) (Auto) % (45.0-75.0) Lymphocytes (%) (Auto) % (20.0-45.0) Monocytes (%) (Auto) % (1.0-10.0) Eosinophils (%) (Auto) % (0.0-3.0) Basophils (%) (Auto) % (0.0-2.0) Sodium Level 138 MMOL/L (136-145) Potassium Level 5.1 MMOL/L (3.5-5.1) Chloride Level 104 MMOL/L (98-107) Carbon Dioxide Level 37 MMOL/L (21-32) H Blood Urea Nitrogen 45 mg/dL (7-18) H Creatinine 1.2 MG/DL (0.55-1.30) Estimat Glomerular Filtration Rate 55.6 mL/min (>60) Glucose Level 281 MG/DL (74-106) H Calcium Level 7.7 MG/DL (8.5-10.1) L Total Bilirubin 0.3 MG/DL (0.2-1.0) Direct Bilirubin 0.1 MG/DL (0.0-0.3) Aspartate Amino Transf (AST/SGOT) 65 U/L (15-37) H Alanine Aminotransferase (ALT/SGPT) 26 U/L (12-78) Alkaline Phosphatase 594 U/L (46-116) H Total Protein 6.5 G/DL (6.4-8.2) Albumin 1.6 G/DL (3.4-5.0) L Globulin 4.9 g/dL Albumin/Globulin Ratio 0.3 (1.0-2.7) L Vancomycin Level Trough 22.9 ug/mL (5.0-12.0) H Test 02/22/20 08:46 02/22/20 12:05 Arterial Blood pH 7.317 (7.350-7.450) Arterial Blood Partial Pressure CO2 65.0 mmHg (35.0-45.0) *H Arterial Blood Partial Pressure O2 75.7 mmHg (75.0-100.0) Arterial Blood HCO3 32.5 mmol/L (22.0-26.0) H Arterial Blood Oxygen Saturation 93.9 % (95-100) L Arterial Blood Base Excess 5.3 (-2-2) H Bryan Test Positive POC Whole Blood Glucose 232 MG/DL (74-106) H Current Medications Medications (Trade) Dose Ordered Sig/Ivana Route PRN Reason Start Time Stop Time Status Last Admin Dose Admin Acetaminophen (Tylenol) 650 mg Q6H PRN ORAL MILD PAIN, FEVER 01/28/20 22:45 02/27/20 22:44 02/18/20 04:19 Amlodipine Besylate (Norvasc) 10 mg DAILY ORAL 02/01/20 09:00 03/02/20 08:59 02/22/20 09:26 Aspirin (ASA) 81 mg DAILY ORAL 02/14/20 09:00 1/2/21 08:59 02/22/20 09:26 Clonidine HCl (Catapres Tab) 0.1 mg Q4H PRN ORAL SBP > 150mmHg 02/06/20 07:00 05/06/20 06:59 02/21/20 15:54 Dexamethasone (Decadron) 6 mg Q24H ORAL 02/18/20 18:00 02/27/20 18:01 02/21/20 17:29 Dextrose (Dextrose 50%) 25 ml Q30M PRN IV Hypoglycemia 01/28/20 22:45 04/27/20 22:44 Dextrose (Dextrose 50%) 50 ml Q30M PRN IV Hypoglycemia 01/28/20 22:45 04/27/20 22:44 Dextrose/Sodium Chloride 1,000 ml @ 75 mls/hr [id number] IV 02/22/20 12:00 03/23/20 11:59 Enoxaparin Sodium (Lovenox) 80 mg Q12HR SUBQ 02/13/20 18:54 05/13/20 18:53 02/21/20 21:21 Epoetin Haseeb (Epoetin Haseeb-EPBX(NON ESRD)) 8,000 unit WED-WED-WED SUBQ 02/05/20 21:00 05/05/20 20:59 02/21/20 21:22 Gabapentin (Neurontin) 300 mg THREE TIMES A DAY ORAL 02/11/20 09:30 03/12/20 09:29 02/21/20 17:30 Guaifenesin/ Dextromethorphan (Robitussin DM Syrup) 15 ml Q4H PRN ORAL For Cough 02/12/20 16:53 05/12/20 16:52 02/19/20 22:21 Insulin Aspart (NovoLOG) Q6HR SUBQ 01/29/20 00:00 04/28/20 00:00 02/22/20 06:07 Insulin Detemir (Levemir) 10 units BID SUBQ 02/08/20 18:00 05/04/20 17:59 02/21/20 17:34 Ipratropium [place] (Atrovent Inh) 1 puffs Q4H INH 02/18/20 18:00 03/19/20 17:59 02/22/20 05:57 Isosorbide Mononitrate (Imdur) 30 mg DAILY ORAL 02/02/20 09:00 03/03/20 08:59 02/21/20 09:24 Lidocaine (Lidoderm 5% PATCH) 1 patch DAILY TDERMAL 02/11/20 09:30 05/11/20 09:29 02/22/20 09:27 Lorazepam (Ativan) 1 mg Q4H PRN ORAL For Anxiety 02/21/20 22:15 02/28/20 22:14 02/22/20 05:57 Methocarbamol (Robaxin) 500 mg Q8H PRN ORAL muscle spasm 02/11/20 09:30 03/12/20 09:29 02/21/20 05:13 Metoprolol Tartrate (Lopressor) 25 mg Q12HR ORAL 02/04/20 21:00 05/04/20 20:59 02/22/20 09:26 Nitroglycerin (Ntg) 0.4 mg Q5M PRN SL Prn Chest Pain 02/01/20 08:00 03/02/20 07:59 02/21/20 14:57 Ondansetron HCl (Zofran) 4 mg Q6H PRN IVP Nausea & Vomiting 01/28/20 22:45 02/27/20 22:44 02/01/20 18:10 Pantoprazole (Protonix) 40 mg DAILY IVP 02/23/20 09:00 03/24/20 08:59 Remdesivir 100 mg/ Sodium Chloride 250 ml @ 250 mls/hr Q24H IV 02/19/20 18:00 02/22/20 18:59 02/21/20 17:52 Vancomycin HCl (Vanco pharmacy to dose) 1 ea DAILY PRN MISC Per rx protocol 02/13/20 11:30 03/14/20 11:29 Vancomycin HCl 750 mg/Sodium Chloride 275 ml @ 183.333 mls/hr Q12H IVPB 02/22/20 08:00 02/27/20 07:59 02/22/20 07:44 Anderson Durham MD Feb 22, 2020 12:15
[2020-02-22] MEDS: D5NS 1,000 ML IV SCH (12:18)
--- NOTE | 2020-02-22 13:26 | General Progress Note ---
Subjective Allergies: Coded Allergies: No Known Allergies (Unverified , 07/30/15) Subjective Above noted on BIPAP desaturates easily off of BIPAP difficult to administer PO diet and meds Objective Last 24 Hour Vital Signs Date Time Temp Pulse Resp B/P (MAP) Pulse Ox O2 Delivery O2 Flow Rate FiO2 02/22/20 12:00 Bi-pap 02/22/20 12:00 96.1 88 20 141/89 (106) 94 02/22/20 12:00 100 02/22/20 12:00 84 02/22/20 11:13 89 29 95 90 02/22/20 09:26 91 154/71 02/22/20 09:26 91 154/71 02/22/20 08:00 91 02/22/20 08:00 100 02/22/20 08:00 Bi-pap 02/22/20 07:43 95.5 95 20 154/71 (98) 100 02/22/20 07:10 93 34 96 80 02/22/20 06:27 86 22 128/80 100 02/22/20 05:57 88 20 122/82 98 02/22/20 04:00 97.4 92 20 164/84 (110) 100 02/22/20 04:00 80 02/22/20 04:00 Bi-pap 02/22/20 03:27 90 02/22/20 02:52 88 32 96 80 02/22/20 00:09 87 20 149/85 99 02/22/20 00:00 80 02/22/20 00:00 97.8 87 20 149/85 (106) 99 02/22/20 00:00 Bi-pap 02/21/20 23:30 82 02/21/20 23:16 82 23 140/42 96 02/21/20 22:52 105 26 97 80 02/21/20 21:20 84 146/78 02/21/20 20:00 Bi-pap 02/21/20 20:00 97.0 100 23 146/78 (100) 99 02/21/20 20:00 80 02/21/20 19:07 106 02/21/20 18:45 110 28 96 80 02/21/20 16:00 80 02/21/20 16:00 97.0 108 20 160/85 (110) 97 02/21/20 16:00 Bi-pap 02/21/20 15:54 170/85 02/21/20 15:38 110 27 96 60 02/21/20 15:14 104 02/21/20 14:57 173/87 02/21/20 13:35 110 25 152/77 97 Intake and Output 02/21/20 02/22/20 19:00 07:00 Intake Total 400 ml 210 ml Output Total 850 ml 550 ml Balance -450 ml -340 ml Intake Oral 400 ml 210 ml Output Urine Total 850 ml 550 ml # Bowel Movements 2 Laboratory Tests 02/21/20 17:25: POC Whole Blood Glucose [Pending] 02/21/20 23:19: POC Whole Blood Glucose 251H 02/22/20 02:50: White Blood Count 8.7, Red Blood Count 2.80L, Hemoglobin 7.9L, Hematocrit 26.6L, Mean Corpuscular Volume 95, Mean Corpuscular Hemoglobin 28.1, Mean Corpuscular Hemoglobin Concent 29.7L, Red Cell Distribution Width 15.3H, Platelet Count 463H , Mean Platelet Volume 5.6L, Neutrophils (%) (Auto) , Lymphocytes (%) (Auto) , Monocytes (%) (Auto) , Eosinophils (%) (Auto) , Basophils (%) (Auto) , Sodium Level 138, Potassium Level 5.1, Chloride Level 104, Carbon Dioxide Level 37H, Blood Urea Nitrogen 45H, Creatinine 1.2, Estimat Glomerular Filtration Rate 55.6, Glucose Level 281H, Calcium Level 7.7L, Total Bilirubin 0.3, Direct Bilirubin 0.1, Aspartate Amino Transf (AST/SGOT) 65H, Alanine Aminotransferase (ALT/SGPT) 26, Alkaline Phosphatase 594H, Total Protein 6.5, Albumin 1.6L, Globulin 4.9, Albumin/Globulin Ratio 0.3L, Vancomycin Level Trough 22.9H 02/22/20 06:01: POC Whole Blood Glucose 273H 02/22/20 08:46: Arterial Blood pH 7.317L, Arterial Blood Partial Pressure CO2 65.0*H, Arterial Blood Partial Pressure O2 75.7, Arterial Blood HCO3 32.5H, Arterial Blood Oxygen Saturation 93.9L, Arterial Blood Base Excess 5.3H, Bryan Test Positive 02/22/20 12:05: POC Whole Blood Glucose 232H Height (Feet): 5 Height (Inches): 1.00 Weight (Pounds): 168 Objective Patient on BIPAP Coarse BS RR abd soft Assessment/Plan Assessment/Plan: Assessment - COVID pneumonitis - fatty liver - hepatitis C with nodular liver, PCR (+) - abnormal LFT - due to COVD, fatty liver, and HCV - HTN - COPD - Lung mass - DM - PSVT - anemia Recommendations - po as tolerated - follow LFT - PPI - change to IV - Elevate HOB - outpatient HCV eradication - laxative PRN - Outpatient colonoscopy once recovered from current illness Feliberto Pérez MD Feb 22, 2020 13:26
--- NOTE | 2020-02-22 14:53 | General Progress Note ---
Subjective Date patient seen: Feb 22, 2020 Time patient seen: 02:00 - pm Allergies: Coded Allergies: No Known Allergies (Unverified , 07/30/15) Subjective HISTORY OF PRESENT ILLNESS: This is a 59-year-old female who is being seen on the step down unit of [facility]. Patient still on bipap. No signs of pain or distress. Has not received the [place] in the last 24hrs. REVIEW OF SYSTEMS: Denies rash, fever, chills, sweating, dizziness, drowsiness, sore throat, or change in her weight. No nausea, vomiting, diarrhea, blood in the stool or urine. No dysuria. Objective Last 24 Hour Vital Signs Date Time Temp Pulse Resp B/P (MAP) Pulse Ox O2 Delivery O2 Flow Rate FiO2 02/22/20 12:00 Bi-pap 02/22/20 12:00 96.1 88 20 141/89 (106) 94 02/22/20 12:00 100 02/22/20 12:00 84 02/22/20 11:13 89 29 95 90 02/22/20 09:26 91 154/71 02/22/20 09:26 91 154/71 02/22/20 08:00 91 02/22/20 08:00 100 02/22/20 08:00 Bi-pap 02/22/20 07:43 95.5 95 20 154/71 (98) 100 02/22/20 07:10 93 34 96 80 02/22/20 06:27 86 22 128/80 100 02/22/20 05:57 88 20 122/82 98 02/22/20 04:00 97.4 92 20 164/84 (110) 100 02/22/20 04:00 80 02/22/20 04:00 Bi-pap 02/22/20 03:27 90 02/22/20 02:52 88 32 96 80 02/22/20 00:09 87 20 149/85 99 02/22/20 00:00 80 02/22/20 00:00 97.8 87 20 149/85 (106) 99 02/22/20 00:00 Bi-pap 02/21/20 23:30 82 02/21/20 23:16 82 23 140/42 96 02/21/20 22:52 105 26 97 80 02/21/20 21:20 84 146/78 02/21/20 20:00 Bi-pap 02/21/20 20:00 97.0 100 23 146/78 (100) 99 02/21/20 20:00 80 02/21/20 19:07 106 02/21/20 18:45 110 28 96 80 02/21/20 16:00 80 02/21/20 16:00 97.0 108 20 160/85 (110) 97 02/21/20 16:00 Bi-pap 02/21/20 15:54 170/85 02/21/20 15:38 110 27 96 60 02/21/20 15:14 104 02/21/20 14:57 173/87 Intake and Output 02/21/20 02/22/20 19:00 07:00 Intake Total 400 ml 210 ml Output Total 850 ml 550 ml Balance -450 ml -340 ml Intake Oral 400 ml 210 ml Output Urine Total 850 ml 550 ml # Bowel Movements 2 Laboratory Tests 02/21/20 17:25: POC Whole Blood Glucose [Pending] 02/21/20 23:19: POC Whole Blood Glucose 251H 02/22/20 02:50: White Blood Count 8.7, Red Blood Count 2.80L, Hemoglobin 7.9L, Hematocrit 26.6L, Mean Corpuscular Volume 95, Mean Corpuscular Hemoglobin 28.1, Mean Corpuscular Hemoglobin Concent 29.7L, Red Cell Distribution Width 15.3H, Platelet Count 463H , Mean Platelet Volume 5.6L, Neutrophils (%) (Auto) , Lymphocytes (%) (Auto) , Monocytes (%) (Auto) , Eosinophils (%) (Auto) , Basophils (%) (Auto) , Sodium Level 138, Potassium Level 5.1, Chloride Level 104, Carbon Dioxide Level 37H, Blood Urea Nitrogen 45H, Creatinine 1.2, Estimat Glomerular Filtration Rate 5 5.6, Glucose Level 281H, Calcium Level 7.7L, Total Bilirubin 0.3, Direct Bilirubin 0.1, Aspartate Amino Transf (AST/SGOT) 65H, Alanine Aminotransferase (ALT/SGPT) 26, Alkaline Phosphatase 594H, Total Protein 6.5, Albumin 1.6L, Globulin 4.9, Albumin/Globulin Ratio 0.3L, Vancomycin Level Trough 22.9H 02/22/20 06:01: POC Whole Blood Glucose 273H 02/22/20 08:46: Arterial Blood pH 7.317L, Arterial Blood Partial Pressure CO2 65.0*H, Arterial Blood Partial Pressure O2 75.7, Arterial Blood HCO3 32.5H, Arterial Blood Oxygen Saturation 93.9L, Arterial Blood Base Excess 5.3H, Bryan Test Positive 02/22/20 12:05: POC Whole Blood Glucose 232H Height (Feet): 5 Height (Inches): 1.00 Weight (Pounds): 168 Objective PHYSICAL EXAMINATION: GENERAL: Alert, awake, and oriented. LUNGS: Decreased breath sounds bilaterally. HEART: S1 and S2 regular. ABDOMEN: Obese. EXTREMITIES: No cyanosis. No clubbing. NEURO: No changes. Assessment/Plan Assessment/Plan: (1) Cervical DDD (2) Cervical Spondylosis (3) Covid 19 + Patient to be continued on [place] reduced to 5/325mg tabs, Neurontin, Robaxin and Lidocaine patch. D/w Dr. Landa and he concurred. Monster Corey Feb 22, 2020 14:53
[2020-02-22] MEDS ORDERED: HYDROcodone/Acetamin 5/325 tab ORAL PRN (15:00)
[2020-02-22 16:00] VITALS: BP 158/82
[2020-02-22] MEDS: Maintenance Dose:Remdesivir 100mg/NS 230ml x 4 Doses IV SCH ×2 (17:51)
--- NOTE | 2020-02-22 19:30 | NUR ---
NURSE HAND-OFF REPORT: Important Events on Shift: Patient Status: Stable Diet: CCHO medium Pending Orders: None Pending Results/Labs:None Pending MD notification:None Latest Vital Signs: Temperature 96.1 , Pulse 93 , B/P 158 /82 , Respiratory Rate 28 , O2 SAT 97 , Bi-pap, O2 Flow Rate . Vital Sign Comment: Stable EKG Rhythm: Sinus Rhythm Rhythm change?: N MD Notified?: Jay briceño MD Response: Latest Pineda Fall Score: 60 Fall Risk: High Risk Safety Measures: Call light Within Reach, Bed Alarm Zone 1, Side Rails Side Rails x2, Bed position Low and Locked. Fall Precautions: Yellow Socks Yellow Gown Door Sign Patient Fall Education Report given to Tena Dolan RN.
--- NOTE | 2020-02-22 19:31 | NUR ---
NURSE NOTES: received pt from Jm Mcbride RN., pt is awake and AO x3-4 at this time. pt is on Bipap 15/8 100% and O2sat is at 98%. allan cath is draining well with gravity without bleeding. pt is keep trying to remove the Bipap, explained why pt needs and what are the benefits and risk of bipap. no active bleeding noted. pt states no pain at this time. right FA 20G IV site intact, clean, and patent. call light within reach. will continue to monitor pt with plan of care. bed at the lowest position, alarmed, and locked.
[2020-02-22 20:00] VITALS: BP 154/80
--- NOTE | 2020-02-22 20:00 | NUR ---
NURSE NOTES: applied bear hugger for low temperature. extra blanket applied as well. call light within reach. will continue to monitor pt.
--- NOTE | 2020-02-22 21:21 | NUR ---
NURSE NOTES: per pt " I cannot go to sleep, I feel anxious. I want medicine." asked pt if she wants Ativan for anxiety. pt nodded. pt vitals are stable to administer Ativan 1g via PO. call light within reach. will continue to monitor pt.
--- NOTE | 2020-02-22 21:59 | NUR ---
NURSE NOTES: notified Sandra (pt's daughter) that pt is keep taking off the biapap although explained what benefits and what are the risks.
--- NOTE | 2020-02-22 22:00 | NUR ---
NURSE NOTES: Sandra Bernstein (pt's daughter) called "give my mother something to relax and sleep". and told Sandra Bernstein that pt wanted antivan as ordered and administer earlier once, and Sandra said " yes, that is okay." noted. will continue to monitor pt closely.
[2020-02-23] VITALS (28 sets, daily range): BP systolic 108–199; BP diastolic 6–129
--- NOTE | 2020-02-23 | NUR ---
NURSE NOTES: pt is keep taking off the bipap at this time, told pt to not take it off. pt states "ok I won't". call light within reach. will continue to monitor pt with plan of care.
--- NOTE | 2020-02-23 | NUR ---
NURSE NOTES: pt took off the biapap, so reapplied bipap now. pt's O2sat is now at 94%. call light within reach. will continue to monitor pt.
[2020-02-23] MEDS: D5NS 1,000 ML IV SCH ×2 (01:09→13:41)
[2020-02-23] MEDS: Ipratropium Bromide Inhaler INH SCH ×6 (02:00→23:07)
--- NOTE | 2020-02-23 02:00 | NUR ---
NURSE NOTES: pt is sleeping at this time, call light within reach. will continue to monitor pt
--- NOTE | 2020-02-23 02:55 | NUR ---
NURSE NOTES: pt is sleeping at this time, easy to arouse. VSS. call light within reach. will continue to monitor pt.
--- NOTE | 2020-02-23 03:44 | NUR ---
SERINA VELASQUEZ: pt was sleeping, and religious education director shows pt is sinus elia cardia 40-30s. pt is unresponsive with tactile stimuli and chest rub with pain. pt was breathing shallow, checked pulse and pulse present. Reassessed pt, and pt stopped breathing. checked pt's pulse, no pulse noted. Therefore, called Serina Velasquez at [phone] and serina velasquez team arrived on 343. See Code sheet which remains on paper.
--- NOTE | 2020-02-23 04:15 | NUR ---
NURSE NOTES: Received report from JO-ANN Parra. patient s/p code. patient has no response to pain, bilateral pupils sluggish with gag reflex present. patient with 7.5 ETT at 25cm on ventilator AC 18 TV 550 FiO2 100% PEEP 5. BP115/74 HR92 NSR on monitor. right forearm #20 running D5NS @75ml/hr. skin cool dry with hyperpigmentation. allan catheter draining scant warren urine.
--- NOTE | 2020-02-23 04:30 | NUR ---
NURSE NOTES: Paged Dr. Feliz to report patient s/p code intubated and transferred to ICU. message left. awaiting call back.
--- NOTE | 2020-02-23 04:33 | Emergency Room Report ---
History of Present Illness General Chief Complaint: Altered Level of Consciousness Source: Patient, Family Member Present Illness Allergies: Coded Allergies: No Known Allergies (Unverified , 07/30/15) COVID-19 Screening Contact w/high risk pt: No Recent Travel to affected area: No Experienced COVID-19 symptoms?: Yes COVID-19 symptoms experienced: Shortness of Breath, Cough COVID-19 Testing performed [employer] HELPER: No COVID-19 Screening: Positive COVID-19 Patient History Now: No Nursing Documentation-[facility] Past Medical History: No History, Except For Hx Cardiac Problems: Yes Hx Hypertension: Yes Hx Asthma: Yes Hx COPD: Yes Hx Diabetes: Yes Hx Cancer: No Hx Gastrointestinal Problems: Yes - GASTRITIS Hx Neurological Problems: No Hx Dizziness: Yes Physical Exam Vital Signs Date Time Temp Pulse Resp B/P (MAP) Pulse Ox O2 Delivery O2 Flow Rate FiO2 02/19/20 08:00 96.4 81 20 122/72 (89) 100 02/19/20 08:00 Bi-pap 02/19/20 10:53 70 Procedures CPR/Code Blue CPR/Code Blue Narrative I was called to evaluate the patient for cardiac arrest. Patient was undergoing CPR prior to my arrival. Patient with prior history of positive coronavirus testing. Was receiving oxygen via bag valve mask and undergoing CPR. Had been given medications prior to my arrival. Patient was having some agonal breathing. Patient was intubated for airway protection and mechanical ventilation. See code sheet for full medications. Patient had return of spontaneous circulation with tachycardia and hypertension. Patient was started on mechanical ventilation and transferred to ICU. Intubation Intubation : Consent: Emergent Intubation Method: orotracheal Tube Size (cm): 7.5 Breath Sounds after Intubation: equal Intubation Complications: no complications Post Intubation Xray: Yes Progress/Xray Impression: Chest x-ray with adequate endotracheal tube placement Attempts: One Patient Tolerated: Well Complications: None Medical Decision Making Diagnostic Impression: Primary Impression: Hypertensive urgency Additional Impressions: Elevated d-dimer CHF (congestive heart failure) Hyperglycemia SVT (supraventricular tachycardia) Sepsis JC (acute kidney injury) Pneumonia Febrile illness Last Vital Signs Date Time Temp Pulse Resp B/P (MAP) Pulse Ox O2 Delivery O2 Flow Rate FiO2 02/23/20 00:00 100 02/23/20 00:00 96.2 95 20 155/70 (98) 98 02/23/20 00:00 Bi-pap Disposition: ADMITTED INPATIENT Condition: Critical Referrals: NON PHYSICIAN (PCP) Angelito Yanez MD Feb 23, 2020 04:33
--- NOTE | 2020-02-23 05:10 | NUR ---
NURSE NOTES: Dr. Feliz returned page. orders received read back and carried out.
--- NOTE | 2020-02-23 05:14 | NUR ---
NURSE NOTES: Inserted OGt ,kub were ordered to verify placement
--- NOTE | 2020-02-23 05:25 | NUR ---
NURSE NOTES: Spoke with daughters Sadnra and Tammie to update on patient s/p code and intubation. Daughters aware.
[2020-02-23 05:33] LABS: MEAN CORPUSCULAR VOLUME 89 FL (80-99); PLATELET COUNT 496 K/UL (150-450); RED BLOOD COUNT 2.82 M/UL (4.20-5.40); RED CELL DISTRIBUTION WIDTH 17.5 % (11.6-14.8); WHITE BLOOD COUNT 12.6 K/UL (4.8-10.8)
[2020-02-23 05:44] LABS: CALCIUM 7.9 MG/DL (8.5-10.1); CREATININE 1.3 MG/DL (0.55-1.30)
[2020-02-23 05:50] LABS: POTASSIUM 6.3 MMOL/L (3.5-5.1)
[2020-02-23] MEDS: NovoLOG Insulin Flexpen SUBQ SCH ×4 (06:04→23:22)
--- NOTE | 2020-02-23 07:15 | NUR ---
NURSE HAND-OFF REPORT: Latest Vital Signs: Temperature 96.5 , Pulse 115 , B/P 199 /94 , Respiratory Rate 28 , O2 SAT 100 , Mechanical Ventilator, O2 Flow Rate . Vital Sign Comment: EKG Rhythm: Sinus Rhythm Rhythm change?: N Notified?: Jay -dr. navarro HERNANDES Response: Latest Pineda Fall Score: 60 Fall Risk: High Risk Safety Measures: Call light Within Reach, Bed Alarm Zone 1, Side Rails Side Rails x2, Bed position Low and Locked. Fall Precautions: Yellow Socks Yellow Gown Door Sign Patient Fall Education Report given to JO-ANN Hutchins.
--- NOTE | 2020-02-23 07:20 | NUR ---
NURSE NOTES: Report received from JO-ANN Mcekon. Pt awake, opening her eyes spontaneously, however, not tracking, not following commands. Pt is orally intubated ETT 7.5, 25cm at the lipline. AC 22, TV 550, FiO2 80%, PEEP 8. O2sat on desk monitor reading 100%. Pt has an OGT; awaiting KUB for placement confirmation. Pt is currently NPO. Pt has a allan catheter draining with gravity to urometer. PIV Right FA #20g running D5NS @ 75mL/hr. Pt put on 2 point wrist restraints for safety, observed attempting to pull out necessary medical tubing. Bed locked and in lowest position, with call light within reach. Will continue to monitor.
--- NOTE | 2020-02-23 08:31 | NUR ---
RD ASSESSMENT & RECOMMENDATIONS SEE CARE ACTIVITY FOR COMPLETE ASSESSMENT DAILY ESTIMATED NEEDS: Needs based on Critical care/ 54.9kg abw 22-28 kcals/kg 6853-7513 total kcals 1.2-2 g protein/kg 66- 109 g total protein 25-30 mL/kg 1322-1887 total fluid mLs NUTRITION DIAGNOSIS: * Altered nutrition related lab values R/T clinical status as evidenced by variable poc BGs (52-325 upon adm, now 200's), elev WBC, elev K (5.4 -> wnl-> back up 6.3*), elev LFTs. CURRENT TF: NPO ENTERAL NUTRITION RECOMMENDATIONS: Nepro @ 35ml/hr x 24 hrs to provide 840ml, 1512kcal, 68g prot, 611ml free water * Rec Nepro at this time (elev K 6.3* 02/22 w/ previous episodes of elev K) * As medically appropriate, initiate Nepro @ 15ml/hr x 6hrs * Advance 10ml q 4-6 hrs as tolerated to goal * HOB over 30 degrees/ water flush per MD ADDITIONAL RECOMMENDATIONS: * Calibrated bedscale wts * Monitor lytes: critically elev K (6.3) * Monitor for hypoglycemia while NPO- maintain added D5 * TF rec as above when medically appropriate to feed . . .
--- NOTE | 2020-02-23 08:59 | Critical Care Progress Note ---
Assessment/Plan Assessment/Plan IMPRESSION acute respiratory failure/ now on vent leukocytosis sepsis ARF toxic met encephalopathy COPD DM poor control cavitary lesion negative AFB groundglass infiltrates NSTEMI severe PCM hypertension left shoulder pain bacteremia MRSA hematuria COVID anemia diabetes s/p respiratory cod PLAN DVT prophylaxis and active treatment antibiotics per ID titrate BP meds vent support monitor acid base NGT kayexalate feeds maintain support monitor LOC critical impression, plan, and exam edited and reviewed in detail care discussed with hand tube bender - Subjective Interval Events: agonal respirations---intubated early this am now on vent d/w family at bedside x 30 minutes update given ROS Limited/Unobtainable: Yes Condition: critical EKG Rhythm: Sinus Tachycardia I&O: Intake and Output 02/22/20 02/23/20 19:00 07:00 Intake Total 75 ml 1025.000 ml Output Total 600 ml 520 ml Balance -525 ml 505.000 ml IV Total 75 ml 1025.000 ml Output Urine Total 600 ml 520 ml # Bowel Movements 2 Critical Care - Objective ET-Tube: 7.5 ET Position: 25 Last 24 Hour Vital Signs Date Time Temp Pulse Resp B/P (MAP) Pulse Ox O2 Delivery O2 Flow Rate FiO2 02/23/20 08:00 80 02/23/20 07:00 115 28 199/94 (129) 02/23/20 06:00 93 21 136/76 (96) 02/23/20 05:00 91 22 108/64 (79) 02/23/20 04:30 96.5 92 18 115/74 (88) 100 02/23/20 04:30 96.5 92 18 115/74 (88) 100 02/23/20 04:17 60 100 02/23/20 04:00 100 02/23/20 04:00 94 02/23/20 04:00 Mechanical Ventilator 02/23/20 00:00 100 02/23/20 00:00 96.2 95 20 155/70 (98) 98 02/23/20 00:00 Bi-pap 02/22/20 23:15 95 27 98 100 02/22/20 21:51 85 27 145/77 98 02/22/20 21:21 93 26 154/83 96 02/22/20 21:20 94 154/83 02/22/20 20:00 95.9 95 20 154/80 (104) 98 02/22/20 20:00 Bi-pap 02/22/20 20:00 100 02/22/20 20:00 66 02/22/20 19:20 93 28 97 100 02/22/20 16:23 90 02/22/20 16:08 90 02/22/20 16:00 Bi-pap 02/22/20 16:00 96.1 98 20 158/82 (107) 98 02/22/20 16:00 100 02/22/20 14:53 89 33 95 100 02/22/20 12:00 Bi-pap 02/22/20 12:00 96.1 88 20 141/89 (106) 94 02/22/20 12:00 100 02/22/20 12:00 84 02/22/20 11:13 89 29 95 90 02/22/20 09:26 91 154/71 02/22/20 09:26 91 154/71 Labs: Laboratory Tests 02/22/20 12:05: POC Whole Blood Glucose 232H 02/22/20 16:56: POC Whole Blood Glucose 204H 02/23/20 04:45: Arterial Blood pH 7.268L, Arterial Blood Partial Pressure CO2 66.0*H, Arterial Blood Partial Pressure O2 97.5, Arterial Blood HCO3 29.5H, Arterial Blood Oxygen Saturation 96.9, Arterial Blood Base Excess 1.8, Bryan Test Positive 02/23/20 05:14: White Blood Count 12.6H, Red Blood Count 2.82L, Hemoglobin 8.0L, Hematocrit 25.0L, Mean Corpuscular Volume 89, Mean Corpuscular Hemoglobin 28.3, Mean Corpuscular Hemoglobin Concent 31.9L, Red Cell Distribution Width 17.5H, Platelet Count 496H, Mean Platelet Volume 6.1L, Neutrophils (%) (Auto) , Lymphocytes (%) (Auto) , Monocytes (%) (Auto) , Eosinophils (%) (Auto) , Basophils (%) (Auto) , Neutrophils % (Manual) [Pending], Lymphocytes % (Manual) [Pending], Platelet Estimate [Pending], Platelet Morphology [Pending], Sodium Level 141, Potassium Level 6.3*H, Chloride Level 107, Carbon Dioxide Level 30, Anion Gap 4L, Blood Urea Nitrogen 48H, Creatinine 1.3, Estimat Glomerular Filtration Rate 50.7, Glucose Level 242H, Calcium Level 7.9L 02/23/20 08:01: Arterial Blood pH 7.477H, Arterial Blood Partial Pressure CO2 39.9, Arterial Blood Partial Pressure O2 143.0H, Arterial Blood HCO3 28.8H, Arterial Blood Oxygen Saturation 98.1, Arterial Blood Base Excess 4.9H, Bryan Test Positive Objective: deferred due to COVID Accucheck: 253 Germán Feliz MD Feb 23, 2020 08:59
[2020-02-23] MEDS ORDERED: Sodium Polystyrene Sulfonate 15gm Powder ORAL SCH (09:00)
--- NOTE | 2020-02-23 09:00 | NUR ---
NURSE NOTES: Dr Feliz at bedside assessing pt. Updated him on pt's current condition. Dr Feliz spoke to pt's family at length during the time that they were visiting. Answered their questions and explained everything.
[2020-02-23] MEDS: Pantoprazole Inj IVP SCH (09:22)
[2020-02-23] MEDS: Vancomycin 750mg/NS 275ml IVPB SCH ×2 (09:22)
[2020-02-23] MEDS: Imdur 30mg tab ORAL SCH (09:23)
[2020-02-23] MEDS: Aspirin Baby 81mg ORAL SCH (09:23)
[2020-02-23] MEDS: Enoxaparin 80mg Inj SUBQ SCH ×2 (09:24→21:22)
[2020-02-23] MEDS: LORazepam Inj 2mg/ml 1ml IV PRN ×2 (09:32→23:06)
[2020-02-23] MEDS: Levemir Flexpen SUBQ SCH ×2 (09:56→18:01)
--- NOTE | 2020-02-23 11:00 | NUR ---
NURSE NOTES: Pt turned and repositioned. Pt currently sleeping after receiving Ativan 1G IVP for restlessness and agitation.
--- NOTE | 2020-02-23 11:58 | Infectious Diseases Prog Note ---
Assessment/Plan Assessment/Plan antibiotics : vancomycin iv, remdesivir A 1. MRSA cavitary pneumonia sputum AFB negative x 3 2. MRSA sepsis r/o endocarditis 3. diabetes mellitus 4. hypertension 5. COPD 6. respiratory failure 7. aortic stenosis 8. COVID 19 pneumonia on 100 percent FiO2, saturation 94 % P 1. continue iv vancomycin 20 more days 2. continue remdesivir day 6 3. 1 dose ivermectin 4. d/c continue decadron 5. start solumedrol 6. will follow up cultures 7. continue isolation Subjective ROS Limited/Unobtainable: Yes Allergies: Coded Allergies: No Known Allergies (Unverified , 07/30/15) Objective Last 24 Hour Vital Signs Date Time Temp Pulse Resp B/P (MAP) Pulse Ox O2 Delivery O2 Flow Rate FiO2 02/23/20 11:00 118 22 150/81 (104) 100 02/23/20 10:00 124 22 163/72 (102) 100 02/23/20 09:32 129 22 182/75 100 02/23/20 09:23 129 182/75 02/23/20 09:23 182/75 02/23/20 09:22 129 182/75 02/23/20 09:00 126 19 182/75 (110) 100 02/23/20 08:00 80 02/23/20 08:00 Mechanical Ventilator 02/23/20 08:00 100.0 128 21 178/93 (121) 02/23/20 07:15 126 26 100 Mechanical Ventilator 80 02/23/20 07:15 126 26 80 02/23/20 07:00 115 28 199/94 (129) 02/23/20 06:00 93 21 136/76 (96) 02/23/20 05:00 91 22 108/64 (79) 02/23/20 04:30 96.5 92 18 115/74 (88) 100 02/23/20 04:30 96.5 92 18 115/74 (88) 100 02/23/20 04:17 60 100 02/23/20 04:00 100 02/23/20 04:00 94 02/23/20 04:00 Mechanical Ventilator 02/23/20 00:00 100 02/23/20 00:00 96.2 95 20 155/70 (98) 98 02/23/20 00:00 Bi-pap 02/22/20 23:15 95 27 98 100 02/22/20 21:51 85 27 145/77 98 02/22/20 21:21 93 26 154/83 96 02/22/20 21:20 94 154/83 02/22/20 20:00 95.9 95 20 154/80 (104) 98 02/22/20 20:00 Bi-pap 02/22/20 20:00 100 02/22/20 20:00 66 02/22/20 19:20 93 28 97 100 02/22/20 16:23 90 02/22/20 16:08 90 02/22/20 16:00 Bi-pap 02/22/20 16:00 96.1 98 20 158/82 (107) 98 02/22/20 16:00 100 02/22/20 14:53 89 33 95 100 02/22/20 12:00 Bi-pap 02/22/20 12:00 96.1 88 20 141/89 (106) 94 02/22/20 12:00 100 02/22/20 12:00 84 Height (Feet): 5 Height (Inches): 1.00 Weight (Pounds): 168 HEENT: other - intubated Laboratory Tests Test 02/22/20 12:05 02/22/20 16:56 02/23/20 04:45 02/23/20 05:14 POC Whole Blood Glucose 232 MG/DL (74-106) H 204 MG/DL (74-106) H Arterial Blood pH 7.268 (7.350-7.450) Arterial Blood Partial Pressure CO2 66.0 mmHg (35.0-45.0) *H Arterial Blood Partial Pressure O2 97.5 mmHg (75.0-100.0) Arterial Blood HCO3 29.5 mmol/L (22.0-26.0) H Arterial Blood Oxygen Saturation 96.9 % (95-100) Arterial Blood Base Excess 1.8 (-2-2) Bryan Test Positive White Blood Count 12.6 K/UL (4.8-10.8) H Red Blood Count 2.82 M/UL (4.20-5.40) L Hemoglobin 8.0 G/DL (12.0-16.0) L Hematocrit 25.0 % (37.0-47.0) L Mean Corpuscular Volume 89 FL (80-99) Mean Corpuscular Hemoglobin 28.3 PG (27.0-31.0) Mean Corpuscular Hemoglobin Concent 31.9 G/DL (32.0-36.0) L Red Cell Distribution Width 17.5 % (11.6-14.8) H Platelet Count 496 K/UL (150-450) H Mean Platelet Volume 6.1 FL (6.5-10.1) L Neutrophils (%) (Auto) % (45.0-75.0) Lymphocytes (%) (Auto) % (20.0-45.0) Monocytes (%) (Auto) % (1.0-10.0) Eosinophils (%) (Auto) % (0.0-3.0) Basophils (%) (Auto) % (0.0-2.0) Differential Total Cells Counted 100 Neutrophils % (Manual) 92 % (45-75) H Lymphocytes % (Manual) 5 % (20-45) L Monocytes % (Manual) 2 % (1-10) Eosinophils % (Manual) 1 % (0-3) Basophils % (Manual) 0 % (0-2) Band Neutrophils 0 % (0-8) Platelet Estimate Increased H Platelet Morphology Normal Hypochromasia 2+ Anisocytosis 2+ Sodium Level 141 MMOL/L (136-145) Potassium Level 6.3 MMOL/L (3.5-5.1) *H Chloride Level 107 MMOL/L (98-107) Carbon Dioxide Level 30 MMOL/L (21-32) Anion Gap 4 mmol/L (5-15) L Blood Urea Nitrogen 48 mg/dL (7-18) H Creatinine 1.3 MG/DL (0.55-1.30) Estimat Glomerular Filtration Rate 50.7 mL/min (>60) Glucose Level 242 MG/DL (74-106) H Calcium Level 7.9 MG/DL (8.5-10.1) L Test 02/23/20 08:01 02/23/20 09:40 Arterial Blood pH 7.477 (7.350-7.450) Arterial Blood Partial Pressure CO2 39.9 mmHg (35.0-45.0) Arterial Blood Partial Pressure O2 143.0 mmHg (75.0-100.0) H Arterial Blood HCO3 28.8 mmol/L (22.0-26.0) H Arterial Blood Oxygen Saturation 98.1 % (95-100) Arterial Blood Base Excess 4.9 (-2-2) H Bryan Test Positive POC Whole Blood Glucose 259 MG/DL (74-106) H Current Medications Medications (Trade) Dose Ordered Sig/Ivana Route PRN Reason Start Time Stop Time Status Last Admin Dose Admin Acetaminophen (Tylenol) 650 mg Q6H PRN ORAL Temp >100.5 01/28/20 22:45 02/27/20 22:44 02/18/20 04:19 Acetaminophen (Tylenol) 650 mg Q6H PRN ORAL Mild Pain (Pain Scale 1-3) 02/22/20 16:15 03/23/20 16:14 Acetaminophen/ Hydrocodone Bitart (Cannon 5/325) 1 tab Q4H PRN ORAL Severe Pain (Pain Scale 7-10) 02/22/20 15:00 02/29/20 14:59 Amlodipine Besylate (Norvasc) 10 mg DAILY ORAL 02/01/20 09:00 03/02/20 08:59 02/23/20 09:22 Aspirin (ASA) 81 mg DAILY ORAL 02/14/20 09:00 03/30/20 08:59 02/23/20 09:23 Clonidine HCl (Catapres Tab) 0.1 mg Q4H PRN ORAL SBP > 150mmHg 02/06/20 07:00 05/06/20 06:59 02/21/20 15:54 Dexamethasone Sodium Phosphate (Decadron 4mg/ml vial) 6 mg Q24H IVP 02/22/20 18:00 02/27/20 18:01 02/22/20 17:23 Dextrose (Dextrose 50%) 25 ml Q30M PRN IV Hypoglycemia 01/28/20 22:45 04/27/20 22:44 Dextrose (Dextrose 50%) 50 ml Q30M PRN IV Hypoglycemia 01/28/20 22:45 04/27/20 22:44 Dextrose/Sodium Chloride 1,000 ml @ 75 mls/hr [id number] IV 02/22/20 12:00 03/23/20 11:59 02/23/20 01:09 Enoxaparin Sodium (Lovenox) 80 mg Q12HR SUBQ 02/13/20 18:54 05/13/20 18:53 02/23/20 09:24 Epoetin Haseeb (Epoetin Haseeb-EPBX(NON ESRD)) 8,000 unit WED-WED-WED SUBQ 02/05/20 21:00 05/05/20 20:59 02/21/20 21:22 Gabapentin (Neurontin) 300 mg THREE TIMES A DAY ORAL 02/11/20 09:30 03/12/20 09:29 02/23/20 09:23 Guaifenesin/ Dextromethorphan (Robitussin DM Syrup) 15 ml Q4H PRN ORAL For Cough 02/12/20 16:53 05/12/20 16:52 02/19/20 22:21 Insulin Aspart (NovoLOG) Q6HR SUBQ 01/29/20 00:00 04/28/20 00:00 02/23/20 06:04 Insulin Detemir (Levemir) 10 units BID SUBQ 02/08/20 18:00 05/04/20 17:59 02/23/20 09:56 Ipratropium [place] (Atrovent Inh) 1 puffs Q4H INH 02/18/20 18:00 03/19/20 17:59 02/23/20 11:41 Isosorbide Mononitrate (Imdur) 30 mg DAILY ORAL 02/02/20 09:00 03/03/20 08:59 02/23/20 09:23 Lidocaine (Lidoderm 5% PATCH) 1 patch DAILY TDERMAL 02/11/20 09:30 05/11/20 09:29 02/23/20 09:24 Lorazepam (Ativan 2mg/ml 1ml) 1 mg Q2H PRN IV Agitation 02/23/20 05:15 03/01/20 05:14 02/23/20 09:32 Lorazepam (Ativan) 1 mg Q4H PRN ORAL For Anxiety 02/21/20 22:15 02/28/20 22:14 02/22/20 21:21 Methocarbamol (Robaxin) 500 mg Q8H PRN ORAL muscle spasm 02/11/20 09:30 03/12/20 09:29 02/21/20 05:13 Metoprolol Tartrate (Lopressor) 25 mg Q12HR ORAL 02/04/20 21:00 05/04/20 20:59 02/23/20 09:23 Morphine Sulfate (Morphine Sulfate) 2 mg Q2H PRN IVP For Pain 02/23/20 05:15 03/01/20 05:14 Nitroglycerin (Ntg) 0.4 mg Q5M PRN SL Prn Chest Pain 02/01/20 08:00 03/02/20 07:59 02/21/20 14:57 Ondansetron HCl (Zofran) 4 mg Q6H PRN IVP Nausea & Vomiting 01/28/20 22:45 02/27/20 22:44 02/01/20 18:10 Pantoprazole (Protonix) 40 mg DAILY IVP 02/23/20 09:00 03/24/20 08:59 02/23/20 09:22 Vancomycin HCl (Vanco pharmacy to dose) 1 ea DAILY PRN MISC Per rx protocol 02/13/20 11:30 03/14/20 11:29 Vancomycin HCl 750 mg/Sodium Chloride 275 ml @ 183.333 mls/hr Q12H IVPB 02/22/20 08:00 02/27/20 07:59 02/23/20 09:22 Messi Lopez MD Feb 23, 2020 11:58
--- NOTE | 2020-02-23 12:03 | General Progress Note ---
Subjective Date patient seen: Feb 23, 2020 Time patient seen: 11:59 - am ROS Limited/Unobtainable: Yes Allergies: Coded Allergies: No Known Allergies (Unverified , 07/30/15) Subjective HISTORY OF PRESENT ILLNESS: This is a 59-year-old female who is being seen on the ICU of [facility]. Patient is s/p code blue and now intubated. Had not received the Mcdonough in the last 24hrs. Was started on Morphine 2mg IV Q2H PRN which patient has not received. Objective Last 24 Hour Vital Signs Date Time Temp Pulse Resp B/P (MAP) Pulse Ox O2 Delivery O2 Flow Rate FiO2 02/23/20 11:00 118 22 150/81 (104) 100 02/23/20 10:00 124 22 163/72 (102) 100 02/23/20 09:32 129 22 182/75 100 02/23/20 09:23 129 182/75 02/23/20 09:23 182/75 02/23/20 09:22 129 182/75 02/23/20 09:00 126 19 182/75 (110) 100 02/23/20 08:00 80 02/23/20 08:00 Mechanical Ventilator 02/23/20 08:00 100.0 128 21 178/93 (121) 02/23/20 07:15 126 26 100 Mechanical Ventilator 80 02/23/20 07:15 126 26 80 02/23/20 07:00 115 28 199/94 (129) 02/23/20 06:00 93 21 136/76 (96) 02/23/20 05:00 91 22 108/64 (79) 02/23/20 04:30 96.5 92 18 115/74 (88) 100 02/23/20 04:30 96.5 92 18 115/74 (88) 100 02/23/20 04:17 60 100 02/23/20 04:00 100 02/23/20 04:00 94 02/23/20 04:00 Mechanical Ventilator 02/23/20 00:00 100 02/23/20 00:00 96.2 95 20 155/70 (98) 98 02/23/20 00:00 Bi-pap 02/22/20 23:15 95 27 98 100 02/22/20 21:51 85 27 145/77 98 02/22/20 21:21 93 26 154/83 96 02/22/20 21:20 94 154/83 02/22/20 20:00 95.9 95 20 154/80 (104) 98 02/22/20 20:00 Bi-pap 02/22/20 20:00 100 02/22/20 20:00 66 02/22/20 19:20 93 28 97 100 02/22/20 16:23 90 02/22/20 16:08 90 02/22/20 16:00 Bi-pap 02/22/20 16:00 96.1 98 20 158/82 (107) 98 02/22/20 16:00 100 02/22/20 14:53 89 33 95 100 02/22/20 12:00 Bi-pap 02/22/20 12:00 96.1 88 20 141/89 (106) 94 02/22/20 12:00 100 02/22/20 12:00 84 Intake and Output 02/22/20 02/23/20 19:00 07:00 Intake Total 75 ml 1025.000 ml Output Total 600 ml 570 ml Balance -525 ml 455.000 ml IV Total 75 ml 1025.000 ml Output Urine Total 600 ml 570 ml # Bowel Movements 2 Laboratory Tests 02/22/20 12:05: POC Whole Blood Glucose 232H 02/22/20 16:56: POC Whole Blood Glucose 204H 02/23/20 04:45: Arterial Blood pH 7.268L, Arterial Blood Partial Pressure CO2 66.0*H, Arterial Blood Partial Pressure O2 97.5, Arterial Blood HCO3 29.5H, Arterial Blood Oxygen Saturation 96.9, Arterial Blood Base Excess 1.8, Bryan Test Positive 02/23/20 05:14: White Blood Count 12.6H, Red Blood Count 2.82L, Hemoglobin 8.0L, Hematocrit 25.0L, Mean Corpuscular Volume 89, Mean Corpuscular Hemoglobin 28.3, Mean Corpuscular Hemoglobin Concent 31.9L, Red Cell Distribution Width 17.5H, Platelet Count 496H, Mean Platelet Volume 6.1L, Neutrophils (%) (Auto) , Lymphocytes (%) (Auto) , Monocytes (%) (Auto) , Eosinophils (%) (Auto) , Basophils (%) (Auto) , Differential Total Cells Counted 100, Neutrophils % (Manual) 92H, Lymphocytes % (Manual) 5L, Monocytes % (Manual) 2, Eosinophils % (Manual) 1, Basophils % (Manual) 0, Band Neutrophils 0, Platelet Estimate IncreasedH, Platelet Morphology Normal, Hypochromasia 2+, Anisocytosis 2+, Sodium Level 141, Potassium Level 6.3*H, Chloride Level 107, Carbon Dioxide Level 30, Anion Gap 4L, Blood Urea Nitrogen 48H, Creatinine 1.3, Estimat Glomerular Filtration Rate 50.7, Glucose Level 242H, Calcium Level 7.9L 02/23/20 08:01: Arterial Blood pH 7.477H, Arterial Blood Partial Pressure CO2 39.9, Arterial Blood Partial Pressure O2 143.0H, Arterial Blood HCO3 28.8H, Arterial Blood Oxygen Saturation 98.1, Arterial Blood Base Excess 4.9H, Bryan Test Positive 02/23/20 09:40: POC Whole Blood Glucose 259H Height (Feet): 5 Height (Inches): 1.00 Weight (Pounds): 168 Objective PHYSICAL EXAMINATION: GENERAL: Intubated. LUNGS: Decreased breath sounds bilaterally. HEART: S1 and S2 tachy ABDOMEN: Obese. Assessment/Plan Assessment/Plan: (1) Cervical DDD (2) Cervical Spondylosis (3) Covid 19 + (4) S/p Code blue and intubation on vent Patient to be discontinued off Mcdonough and Neurontin, will be continued on Robaxin as needed and Lidocaine patch. Sedation as per [employer]. D/w Dr. Landa and he concurred. Monster Corey Feb 23, 2020 12:03
--- NOTE | 2020-02-23 12:40 | General Progress Note ---
Subjective Allergies: Coded Allergies: No Known Allergies (Unverified , 07/30/15) Subjective Above noted now intubated , in ICU d/w RN OGT placed, awaiting xray confirmation of position patient unresponsive to verbal stimuli moves with tactile stimuli (+) BM Objective Last 24 Hour Vital Signs Date Time Temp Pulse Resp B/P (MAP) Pulse Ox O2 Delivery O2 Flow Rate FiO2 02/23/20 12:00 Mechanical Ventilator 02/23/20 12:00 80 02/23/20 11:00 118 22 150/81 (104) 100 02/23/20 10:02 117 22 146/76 100 02/23/20 10:00 124 22 163/72 (102) 100 02/23/20 09:32 129 22 182/75 100 02/23/20 09:23 129 182/75 02/23/20 09:23 182/75 02/23/20 09:22 129 182/75 02/23/20 09:00 126 19 182/75 (110) 100 02/23/20 08:00 116 02/23/20 08:00 80 02/23/20 08:00 Mechanical Ventilator 02/23/20 08:00 100.0 128 21 178/93 (121) 02/23/20 07:15 126 26 100 Mechanical Ventilator 80 02/23/20 07:15 126 26 80 02/23/20 07:00 115 28 199/94 (129) 02/23/20 06:00 93 21 136/76 (96) 02/23/20 05:00 91 22 108/64 (79) 02/23/20 04:30 96.5 92 18 115/74 (88) 100 02/23/20 04:30 96.5 92 18 115/74 (88) 100 02/23/20 04:17 60 100 02/23/20 04:00 100 02/23/20 04:00 94 02/23/20 04:00 Mechanical Ventilator 02/23/20 00:00 100 02/23/20 00:00 96.2 95 20 155/70 (98) 98 02/23/20 00:00 Bi-pap 02/22/20 23:15 95 27 98 100 02/22/20 21:51 85 27 145/77 98 02/22/20 21:21 93 26 154/83 96 02/22/20 21:20 94 154/83 02/22/20 20:00 95.9 95 20 154/80 (104) 98 02/22/20 20:00 Bi-pap 02/22/20 20:00 100 02/22/20 20:00 66 02/22/20 19:20 93 28 97 100 02/22/20 16:23 90 02/22/20 16:08 90 02/22/20 16:00 Bi-pap 02/22/20 16:00 96.1 98 20 158/82 (107) 98 02/22/20 16:00 100 02/22/20 14:53 89 33 95 100 Intake and Output 02/22/20 02/23/20 19:00 07:00 Intake Total 75 ml 1025.000 ml Output Total 600 ml 570 ml Balance -525 ml 455.000 ml IV Total 75 ml 1025.000 ml Output Urine Total 600 ml 570 ml # Bowel Movements 2 Laboratory Tests 02/22/20 16:56: POC Whole Blood Glucose 204H 02/23/20 04:45: Arterial Blood pH 7.268L, Arterial Blood Partial Pressure CO2 66.0*H, Arterial Blood Partial Pressure O2 97.5, Arterial Blood HCO3 29.5H, Arterial Blood Oxygen Saturation 96.9, Arterial Blood Base Excess 1.8, Bryan Test Positive 02/23/20 05:14: White Blood Count 12.6H, Red Blood Count 2.82L, Hemoglobin 8.0L, Hematocrit 25.0L, Mean Corpuscular Volume 89, Mean Corpuscular Hemoglobin 28.3, Mean Corpuscular Hemoglobin Concent 31.9L, Red Cell Distribution Width 17.5H, Platelet Count 496H, Mean Platelet Volume 6.1L, Neutrophils (%) (Auto) , Lymphocytes (%) (Auto) , Monocytes (%) (Auto) , Eosinophils (%) (Auto) , Basophils (%) (Auto) , Differential Total Cells Counted 100, Neutrophils % (Manual) 92H, Lymphocytes % (Manual) 5L, Monocytes % (Manual) 2, Eosinophils % (Manual) 1, Basophils % (Manual) 0, Band Neutrophils 0, Platelet Estimate IncreasedH, Platelet Morphology Normal, Hypochromasia 2+, Anisocytosis 2+, Sodium Level 141, Potassium Level 6.3*H, Chloride Level 107, Carbon Dioxide Level 30, Anion Gap 4L, Blood Urea Nitrogen 48H, Creatinine 1.3, Estimat Glomerular Filtration Rate 50.7, Glucose Level 242H, Calcium Level 7.9L 02/23/20 08:01: Arterial Blood pH 7.477H, Arterial Blood Partial Pressure CO2 39.9, Arterial Blood Partial Pressure O2 143.0H, Arterial Blood HCO3 28.8H, Arterial Blood Oxygen Saturation 98.1, Arterial Blood Base Excess 4.9H, Bryan Test Positive 02/23/20 09:40: POC Whole Blood Glucose 259H Height (Feet): 5 Height (Inches): 1.00 Weight (Pounds): 168 Objective HEENT: NCAT, (+) ETT, (+) OGT neck supple coarse BS Tachy HR abd Soft ND NT no edema Neuro: moves with tactile stimuli Assessment/Plan Assessment/Plan: Assessment - COVID pneumonitis - Resp failure - malnutrition, declining albumin - fatty liver - hepatitis C with nodular liver, PCR (+) - abnormal LFT - due to COVD, fatty liver, and HCV - HTN - COPD - Lung mass - DM - PSVT - anemia Recommendations - Confirm OGT placement - begin OGT feeds, per RD recs - re check K level - follow LFT - PPI - Elevate HOB - outpatient HCV eradication - laxative PRN - Outpatient colonoscopy once recovered from current illness Feliberto Pérez MD Feb 23, 2020 12:40
--- NOTE | 2020-02-23 13:00 | NUR ---
NURSE NOTES: BS 177. 4 units of Novolog insulin given. Pt turned and repositioned. Still awaiting KUB results. Cooling measures initiated for temp 100.9
--- NOTE | 2020-02-23 13:26 | Diagnostic Imaging Report ---
Indication: Post nasogastric tube placement Technique: Supine view of the upper abdomen Comparison: none Findings: There is a nasogastric tube in place, tip projected at the level of the gastric body. Surgical clips are seen in the pelvis. There is a Flores catheter. Bowel gas pattern is unremarkable. Impression: Satisfactory nasogastric intubation No acute process
--- NOTE | 2020-02-23 14:45 | NUR ---
NURSE NOTES: Tylenol 650mg given for temp of 100.6
--- NOTE | 2020-02-23 16:00 | NUR ---
NURSE NOTES: Tube feeds: Nepro running at 35mL/hr. Pt tolerating well. HOB 30 degrees. No residual noted at this time.
--- NOTE | 2020-02-23 16:53 | NUR ---
CASE MANAGEMENT:REVIEW SI;RESPIRATORY FAILURE~ORALLY INTUBATED. SEPSIS. AC RENAL FAILURE. N-STEMI. BACTEREMIA. 100.9 129 28 199/94 100% ETT/VENT SUPPORT WBC 1205 H/H 8.0/25.0 PLT 496 K+ 6.3 BUN 48 BG 259 CA 7.9 IS;SOLU-MEDROL IV Q12 REMDESIVIR IV Q24 IVERMECTIN NG ONCE KAYEXALATE NG ONCE ATIVAN IV Q2 PRN IVF D5NS @ 75 ML/HR VANCOMYCIN IV Q12 ATROVENT ING Q4 LOVENOX SQ Q12 ASA NG QD TYLENOL NG Q4 PRN ICU STATUS DCP;FROM HOME
--- NOTE | 2020-02-23 17:00 | NUR ---
NURSE NOTES: Spoke to pt's daughter. Updated her on pt's current condition and answered her questions.
--- NOTE | 2020-02-23 18:00 | NUR ---
NURSE NOTES: Pt fully cleaned and linens changed. Oral care done. BS 169; given 4 units Novolog insulin.
[2020-02-23] MEDS: Maintenance Dose:Remdesivir 100mg/NS 230ml x 4 Doses IV SCH ×2 (18:02)
--- NOTE | 2020-02-23 18:10 | Diagnostic Imaging Report ---
Indication: Post intubation Technique: One view of the chest Comparison: 02/19/2020 Findings: Interim endotracheal intubation, endotracheal tube tip approximately 4 cm above the collins. Extensive bilateral diffuse parenchymal consolidation is noted, slightly improved in the left upper lobe, unchanged elsewhere. The pleural spaces are clear. The heart size is normal. Impression: Satisfactory endotracheal intubation Extensive bilateral infiltrates, slightly improved on the left otherwise stable
--- NOTE | 2020-02-23 19:02 | NUR ---
NURSE HAND-OFF REPORT: Latest Vital Signs: Temperature 100.2 , Pulse 117 , B/P 146 /75 , Respiratory Rate 22 , O2 SAT 100 , Mechanical Ventilator, FiO2 65% . Vital Sign Comment: EKG Rhythm: Sinus Tachycardia Rhythm change?: N MD Notified?: MD Response: Latest Pineda Fall Score: 60 Fall Risk: High Risk Safety Measures: Call light Within Reach, Bed Alarm Zone 1, Side Rails Side Rails x2, Bed position Low and Locked. Fall Precautions: Yellow Socks Yellow Gown Door Sign Patient Fall Education Report given to JO-ANN Jimenez.
--- NOTE | 2020-02-23 19:03 | NUR ---
NURSE NOTES: Received patient from JO-ANN Hutchins. Will continue plan of care.
--- NOTE | 2020-02-23 20:00 | NUR ---
NURSE NOTES: Patient is intubated; ETT 7.5 @ 25cm to the lipline to vent with settings AC:22, TV:550, FiO2:65%, PEEP:8, O2sat:100%. OGT in place and running feeding of Nepro @ 35ml/hr. Flores catheter in place and draining. Right forearm IV 20g running D5NS @ 75ml/hr. Isolation precautions noted. Patient easily awakens and moves. HEAD OF MERCHANDISE BUYING restraints in place; ROM and skin assessed. Safety measures in place; bed low, locked and alarm is on. Will continue plan of care.
[2020-02-23] MEDS: Solu-MEDROL 125mg Inj IVP SCH (21:20)
--- NOTE | 2020-02-23 21:31 | NUR ---
NURSE NOTES: Left message to Dr. Feliz to inform him that the potassium this AM 6.3 and 30g kayexalate was given at 0930 this morning with BM. Awaiting new orders.
[2020-02-23] MEDS: Epoetin Alfa-EPBX (NON ESRD)4000 units/ml vial SUBQ SCH (21:49)
--- NOTE | 2020-02-23 23:44 | NUR ---
NURSE NOTES: Paged Dr. Robison and left urgent message for Dr. Trinidad informing them that patient potassium level of 6.3 this AM is concerning. Patient is s/p code, received 30g kayexalate and no BM. Awaiting call back for further instructions.
--- NOTE | 2020-02-23 23:52 | NUR ---
NURSE NOTES: Dr. Robison call back and explained to him patient's situation of s/p code, potassium 6.3, 30g kayexalate give in the morning and no BM. Also updated him that patient is no on pressors and making good urine output (80ml/hr avg). Given orders to monitor the lab levels for tomorrow morning.
[2020-02-24] VITALS (39 sets, daily range): BP systolic 120–196; BP diastolic 56–107
--- NOTE | 2020-02-24 00:45 | NUR ---
NURSE NOTES: STAT bmp blood drawn and sent to lab for results.
[2020-02-24 01:49] LABS: CALCIUM 7.4 MG/DL (8.5-10.1); CREATININE 1.3 MG/DL (0.55-1.30); POTASSIUM 3.3 MMOL/L (3.5-5.1)
--- NOTE | 2020-02-24 02:00 | NUR ---
NURSE NOTES: Potassium resulted 3.3. Will monitor. Additional cmp ordered for later in the AM. Patient repositioned.
[2020-02-24] MEDS: D5NS 1,000 ML IV SCH (03:13)
[2020-02-24] MEDS: LORazepam Inj 2mg/ml 1ml IV PRN ×5 (03:14→16:41)
[2020-02-24] MEDS: Ipratropium Bromide Inhaler INH SCH ×6 (03:27→23:14)
--- NOTE | 2020-02-24 04:00 | NUR ---
NURSE NOTES: Bed bath given, linens changed, turned and repositioned, oral care and suctioning done. Catapres PRN given for hypertension.
--- NOTE | 2020-02-24 06:00 | NUR ---
NURSE NOTES: Tylenol PRN and cooling measures done for elevated temp. No cooling blanket available. Will monitor.
[2020-02-24] MEDS: NovoLOG Insulin Flexpen SUBQ SCH ×3 (06:20→17:04)
--- NOTE | 2020-02-24 07:29 | NUR ---
NURSE HAND-OFF REPORT: Latest Vital Signs: Temperature 100.5 , Pulse 110 , B/P 152 /83 , Respiratory Rate 20 , O2 SAT 100 , Mechanical Ventilator, O2 Flow Rate . Vital Sign Comment: Stable. EKG Rhythm: Sinus Rhythm Rhythm change?: N Notified?: Jay -dr. navarro HERNANDES Response: Latest Pineda Fall Score: 60 Fall Risk: High Risk Safety Measures: Call light Within Reach, Bed Alarm Zone 1, Side Rails Side Rails x2, Bed position Low and Locked. Fall Precautions: Yellow Socks Yellow Gown Door Sign Patient Fall Education Report given to .
--- NOTE | 2020-02-24 07:30 | NUR ---
NURSE NOTES: Pt received from JO-ANN Jimenez. Pt opens eyes spontaneously, appears restless; observed shifting in bed; gag reflex is intact; pt is unable to follow simple commands; Bilat pupils equal and round 3mm with sluggish rxn to light. Pt is in ST to satellite project site monitor. Radial and dorsalis pedis pulses 2+. Non-pitting edema noted to hands. Oral temp 99.5 F. Cap refill less than 2 sec. Pt is orally intubated with a 7.5 noted 25 cm at the lip with the following settings: AC 22 TV 550 FiO2 65% Peep 8 - spO2 noted 98-99% (ABGs due for today - will f/u w/ RT). All lung ricketts noted diminished upon auscultation. OGT noted running Nepro at 35 cc/hr w/o gastric residuals. Bowel sounds are active to all quadrants. Abdomen appears roud, soft, and non-tender. F/C noted draining yellow urine. Skin alterations noted. Pt has a RFA 20g IV running D5NS at 75 cc/hr. PLYWOOD LAYUP LINE CORE LAYER restraints noted - skin to both wrists intact without redness. Bed in lowest position, alarm on, side rails up x 2, call light within reach. Will continue to monitor. Hgb today noted 7.6 (order obtained for hematology consult with Dr Ohara- will f/u).
[2020-02-24 07:59] LABS: HEMATOCRIT 23.4 % (37.0-47.0); HEMOGLOBIN 7.6 G/DL (12.0-16.0); MEAN CORPUSCULAR VOLUME 88 FL (80-99); PLATELET COUNT 561 K/UL (150-450); RED BLOOD COUNT 2.66 M/UL (4.20-5.40); RED CELL DISTRIBUTION WIDTH 17.6 % (11.6-14.8); WHITE BLOOD COUNT 17.3 K/UL (4.8-10.8)
--- NOTE | 2020-02-24 08:00 | NUR ---
NURSE NOTES: Pt repositioned. Oral care provided. 1 BM noted. Pt cleaned.
[2020-02-24 08:12] LABS: ALBUMIN 1.8 G/DL (3.4-5.0); ALBUMIN/GLOBULIN RATIO 0.4 (1.0-2.7); BILIRUBIN,TOTAL 0.6 MG/DL (0.2-1.0); CALCIUM 7.9 MG/DL (8.5-10.1); CREATININE 1.2 MG/DL (0.55-1.30); POTASSIUM 3.5 MMOL/L (3.5-5.1)
[2020-02-24] MEDS ORDERED: Vancomycin 1.25gm/250ml Premix IVPB SCH (09:00)
--- NOTE | 2020-02-24 09:00 | NUR ---
NURSE NOTES: Spoke with Dr Starla MCCAIN to administer lovenox. Pt also given ativan for agitation and morphine for 10/10 pain at this time.
[2020-02-24] MEDS: Solu-MEDROL 125mg Inj IVP SCH ×2 (09:02→20:12)
[2020-02-24] MEDS: Enoxaparin 80mg Inj SUBQ SCH ×2 (09:02→20:18)
[2020-02-24] MEDS: Imdur 30mg tab ORAL SCH (09:03)
[2020-02-24] MEDS: Pantoprazole Inj IVP SCH (09:03)
[2020-02-24] MEDS: Aspirin Baby 81mg ORAL SCH (09:03)
[2020-02-24] MEDS: Morphine Sulfate 2mg/ml Inj(IV/IM USE ONLY) IVP PRN ×3 (09:04→16:41)
[2020-02-24] MEDS: Levemir Flexpen SUBQ SCH ×2 (09:17→17:05)
--- NOTE | 2020-02-24 10:00 | NUR ---
NURSE NOTES: Pt now appears calm - sleeping; in no acute distress. Pt repositioned.
--- NOTE | 2020-02-24 10:20 | Diagnostic Imaging Report ---
EXAM: XR Chest, 1 View CLINICAL HISTORY: SOB TECHNIQUE: Frontal view of the chest. COMPARISON: Chest radiograph on 02/23/2020 FINDINGS: Hardware: Endotracheal tube terminates in the region of the mid thoracic trachea, approximately 3.0 cm above the collins. An enteric tube courses past the diaphragm and out of the [id number]. Lungs/pleura: Persistent diffuse patchy opacities throughout the lungs, slightly decreased compared to prior exam. Again seen are cavitary changes in the right upper lung. Heart/mediastinum: Normal. No cardiomegaly. Soft tissues: Unremarkable. Bones: No acute fracture. Upper abdomen: Normal. IMPRESSION: 1. Endotracheal tube terminates in the region of the mid thoracic trachea, approximately 3.0 cm above the collins. An enteric tube courses past the diaphragm and out of the [id number]. 2. Persistent diffuse patchy opacities throughout the lungs, slightly decreased compared to prior exam. Again seen are cavitary changes in the right upper lung.
--- NOTE | 2020-02-24 12:00 | NUR ---
NURSE NOTES: Pt repositioned. Oral care provided. Pt appears restless/agitated again - preparing to administer ativan and morphine.
--- NOTE | 2020-02-24 12:15 | NUR ---
NURSE NOTES: Dr Sheth assessing pt at bedside. Labs for today reviewed.
--- NOTE | 2020-02-24 12:18 | Nephrology Progress Note ---
Assessment/Plan Plan VDRF Pneumonia - IV Abx CKD - Hyperkalemia resolved with Kayexalate Subjective Subjective s/p" Respiratory Code" > Hyperkalemia 6.3 Last night. Given Kayexalate 30 gm. Objective Objective Last 24 Hour Vital Signs Date Time Temp Pulse Resp B/P (MAP) Pulse Ox O2 Delivery O2 Flow Rate FiO2 02/24/20 11:13 121 22 100 Mechanical Ventilator 65 118 22 65 02/24/20 11:00 91 20 161/74 (103) 100 02/24/20 10:30 86 22 132/69 (90) 100 02/24/20 10:00 104 22 120/65 (83) 100 02/24/20 09:52 115 23 144/94 (111) 100 02/24/20 09:32 95 22 120/65 100 02/24/20 09:30 119 24 181/85 (117) 100 02/24/20 09:27 116 22 167/92 (117) 100 02/24/20 09:04 120 176/103 02/24/20 09:04 120 176/103 02/24/20 09:03 176/103 02/24/20 09:03 176/103 02/24/20 09:02 120 22 176/103 100 02/24/20 09:00 122 21 176/103 (127) 100 02/24/20 08:34 131 29 191/92 (125) 100 02/24/20 08:30 132 23 196/86 (122) 99 02/24/20 08:00 99.5 126 18 188/90 (122) 100 02/24/20 08:00 125 02/24/20 08:00 65 02/24/20 08:00 Mechanical Ventilator 02/24/20 07:25 113 24 100 Mechanical Ventilator 65 112 23 65 02/24/20 07:00 110 20 152/83 (106) 100 02/24/20 06:55 120 20 144/73 100 02/24/20 06:36 100.0 02/24/20 06:25 120 20 174/87 100 02/24/20 06:00 97 22 174/87 (116) 100 02/24/20 05:00 100.5 86 22 159/81 (107) 100 02/24/20 04:00 65 02/24/20 04:00 97 22 150/80 (103) 100 02/24/20 04:00 Mechanical Ventilator 02/24/20 03:44 92 22 150/80 100 02/24/20 03:32 116 02/24/20 03:27 120 23 100 Mechanical Ventilator 65 120 22 65 02/24/20 03:14 122 22 196/86 100 02/24/20 03:13 196/68 02/24/20 03:00 128 27 196/68 (110) 02/24/20 02:00 82 22 133/61 (85) 02/24/20 01:00 92 22 125/62 (83) 02/24/20 00:00 100.2 86 22 136/63 (87) 100 02/24/20 00:00 65 02/24/20 00:00 Mechanical Ventilator 02/23/20 23:36 91 22 165/81 100 02/23/20 23:17 120 02/23/20 23:09 116 22 100 Mechanical Ventilator 65 116 22 65 02/23/20 23:08 118 22 100 Mechanical Ventilator 65 02/23/20 23:06 124 22 195/129 100 02/23/20 23:06 195/129 02/23/20 23:00 123 26 195/129 (151) 100 02/23/20 22:00 110 24 155/75 (101) 100 02/23/20 21:21 113 149/81 02/23/20 21:00 118 25 149/81 (103) 100 02/23/20 20:00 99.8 116 22 143/67 (92) 100 02/23/20 20:00 65 02/23/20 20:00 Mechanical Ventilator 02/23/20 19:52 117 02/23/20 19:26 116 22 100 Mechanical Ventilator 65 116 22 65 02/23/20 19:00 117 22 146/75 (98) 100 02/23/20 18:30 107 22 149/94 (112) 100 02/23/20 18:00 109 22 128/65 (86) 100 02/23/20 17:30 118 21 130/77 (94) 100 02/23/20 17:00 114 23 146/72 (96) 100 02/23/20 16:30 115 22 165/82 (109) 100 02/23/20 16:08 114 02/23/20 16:00 Mechanical Ventilator 02/23/20 16:00 100.2 113 23 168/75 (106) 100 02/23/20 16:00 65 02/23/20 15:30 108 22 190/83 (118) 100 02/23/20 15:22 105 22 100 Mechanical Ventilator 65 105 22 65 02/23/20 15:00 104 22 129/6 (47) 100 02/23/20 14:56 100.2 02/23/20 14:42 110 22 161/79 (106) 100 02/23/20 14:30 115 28 179/73 (108) 100 02/23/20 14:00 100.7 113 22 164/80 (108) 100 02/23/20 13:28 118 22 150/81 (104) 100 02/23/20 13:00 100.9 114 22 163/75 (104) 100 Intake and Output 02/23/20 02/24/20 19:00 07:00 Intake Total 1683.75 ml 1423.75 ml Output Total 675 ml 710 ml Balance 1008.75 ml 713.75 ml Free Water 100 ml IV Total 1373.75 ml 883.75 ml Tube Feeding 210 ml 420 ml Other 120 ml Output Urine Total 675 ml 710 ml Laboratory Tests 02/23/20 13:24: POC Whole Blood Glucose 177H 02/23/20 17:11: POC Whole Blood Glucose 169H 02/23/20 18:55: Vancomycin Level Trough 27.7H 02/23/20 23:11: POC Whole Blood Glucose [Pending] 02/24/20 00:35: Sodium Level 148H, Potassium Level 3.3L, Chloride Level 111H, Carbon Dioxide Level 30, Anion Gap 7, Blood Urea Nitrogen 40H, Creatinine 1.3, Estimat Glomerular Filtration Rate 50.7, Glucose Level 142#H, Calcium Level 7.4L 02/24/20 04:00: Arterial Blood pH 7.476H, Arterial Blood Partial Pressure CO2 39.9, Arterial Blood Partial Pressure O2 71.6L, Arterial Blood HCO3 28.8H, Arterial Blood Oxygen Saturation 94.5L, Arterial Blood Base Excess 4.8H, Bryan Test Positive 02/24/20 05:31: POC Whole Blood Glucose [Pending] 02/24/20 05:40: Random Vancomycin Level 23.5 02/24/20 06:00: White Blood Count 17.3H, Red Blood Count 2.66L, Hemoglobin 7.6L, Hematocrit 23.4L, Mean Corpuscular Volume 88, Mean Corpuscular Hemoglobin 28.5, Mean Corpuscular Hemoglobin Concent 32.4, Red Cell Distribution Width 17.6H, Platelet Count 561H, Mean Platelet Volume 6.2L, Neutrophils (%) (Auto) , Lymphocytes (%) (Auto) , Monocytes (%) (Auto) , Eosinophils (%) (Auto) , Basophils (%) (Auto) , Differential Total Cells Counted 100, Neutrophils % (Manual) 94H, Lymphocytes % (Manual) 2L, Monocytes % (Manual) 4, Eosinophils % (Manual) 0, Basophils % (Manual) 0, Band Neutrophils 0, Platelet Estimate IncreasedH, Platelet Morphology Normal, Polychromasia 1+, Anisocytosis 2+, Sodium Level 148H, Potassium Level 3.5, Chloride Level 111H, Carbon Dioxide Level 30, Anion Gap 7, Blood Urea Nitrogen 40H, Creatinine 1.2, Estimat Glomerular Filtration Rate 55.6, Glucose Level 159H, Calcium Level 7.9L, Total Bilirubin 0.6, Direct Bilirubin 0.2, Aspartate Amino Transf (AST/SGOT) 107H, Alanine Aminotransferase (ALT/SGPT) 47, Alkaline Phosphatase 808H, Total Protein 6.9, Albumin 1.8L, Globulin 5.1, Albumin/Globulin Ratio 0.4L 02/24/20 06:09: POC Whole Blood Glucose [Pending] Height (Feet): 5 Height (Inches): 1.00 Weight (Pounds): 168 Objective Intubated + on Vent CV RR Lungs B suad Reyes SNT. BS + E No CCE Brigitte Robison MD Feb 24, 2020 12:18
--- NOTE | 2020-02-24 12:23 | NUR ---
NURSE NOTES: Pt also ativan for agitation and morphine for 10/10 pain at this time.
[2020-02-24] MEDS ORDERED: D5NS 1000ml IV ONE (13:24)
[2020-02-24] MEDS ORDERED: Tubing IV Secondary IV ONE ×2 (13:24→13:29)
[2020-02-24] MEDS ORDERED: NS 275ml ONE (13:29)
[2020-02-24] MEDS ORDERED: NS 500ML ONE (13:29)
--- NOTE | 2020-02-24 13:32 | Pulmonolgy Critical Care Note ---
Critical Care - Asmt/Plan Assessment/Plan: Pulmonary CCM Progress Note Assessment/Plan Assessment/Plan IMPRESSION acute respiratory failure on ventilator COVID19 MRSA Pneumonia/sepsis leukocytosis sepsis ARF toxic met encephalopathy COPD DM poor control cavitary lesion negative AFB groundglass infiltrates NSTEMI severe PCM hypertension left shoulder pain hematuria anemia diabetes s/p respiratory code PLAN DVT prophylaxis and active treatment antibiotics per ID titrate BP meds vent support monitor acid base NGT kayexalate feeds maintain support monitor LOC critical impression, plan, and exam edited and reviewed in detail care discussed with manager market development - Subjective Interval Events: remains on vent ROS Limited/Unobtainable: Yes Condition: critical EKG Rhythm: Sinus Tachycardia Critical Care - Objective ET-Tube: 7.5 ET Position: 25 Vital Signs noted Laboratory Tests noted Objective: deferred due to COVID Critical Care - Objective Last 24 Hour Vital Signs Date Time Temp Pulse Resp B/P (MAP) Pulse Ox O2 Delivery O2 Flow Rate FiO2 02/24/20 12:23 110 22 142/64 100 02/24/20 12:00 Mechanical Ventilator 02/24/20 12:00 101 02/24/20 12:00 93 20 142/64 (90) 100 02/24/20 12:00 65 02/24/20 12:00 97.8 88 22 142/64 (90) 100 02/24/20 11:13 121 22 100 Mechanical Ventilator 65 118 22 65 02/24/20 11:00 91 20 161/74 (103) 100 02/24/20 10:30 86 22 132/69 (90) 100 02/24/20 10:00 104 22 120/65 (83) 100 02/24/20 09:52 115 23 144/94 (111) 100 02/24/20 09:32 95 22 120/65 100 02/24/20 09:30 119 24 181/85 (117) 100 02/24/20 09:27 116 22 167/92 (117) 100 02/24/20 09:04 120 176/103 02/24/20 09:04 120 176/103 02/24/20 09:03 176/103 02/24/20 09:03 176/103 02/24/20 09:02 120 22 176/103 100 02/24/20 09:00 122 21 176/103 (127) 100 02/24/20 08:34 131 29 191/92 (125) 100 02/24/20 08:30 132 23 196/86 (122) 99 02/24/20 08:00 99.5 126 18 188/90 (122) 100 02/24/20 08:00 125 02/24/20 08:00 65 02/24/20 08:00 Mechanical Ventilator 02/24/20 07:25 113 24 100 Mechanical Ventilator 65 112 23 65 02/24/20 07:00 110 20 152/83 (106) 100 02/24/20 06:55 120 20 144/73 100 02/24/20 06:36 100.0 02/24/20 06:25 120 20 174/87 100 02/24/20 06:00 97 22 174/87 (116) 100 02/24/20 05:00 100.5 86 22 159/81 (107) 100 02/24/20 04:00 65 02/24/20 04:00 97 22 150/80 (103) 100 02/24/20 04:00 Mechanical Ventilator 02/24/20 03:44 92 22 150/80 100 02/24/20 03:32 116 02/24/20 03:27 120 23 100 Mechanical Ventilator 65 120 22 65 02/24/20 03:14 122 22 196/86 100 02/24/20 03:13 196/68 02/24/20 03:00 128 27 196/68 (110) 02/24/20 02:00 82 22 133/61 (85) 02/24/20 01:00 92 22 125/62 (83) 02/24/20 00:00 100.2 86 22 136/63 (87) 100 02/24/20 00:00 65 02/24/20 00:00 Mechanical Ventilator 02/23/20 23:36 91 22 165/81 100 02/23/20 23:17 120 02/23/20 23:09 116 22 100 Mechanical Ventilator 65 116 22 65 02/23/20 23:08 118 22 100 Mechanical Ventilator 65 02/23/20 23:06 124 22 195/129 100 02/23/20 23:06 195/129 02/23/20 23:00 123 26 195/129 (151) 100 02/23/20 22:00 110 24 155/75 (101) 100 02/23/20 21:21 113 149/81 02/23/20 21:00 118 25 149/81 (103) 100 02/23/20 20:00 99.8 116 22 143/67 (92) 100 02/23/20 20:00 65 02/23/20 20:00 Mechanical Ventilator 02/23/20 19:52 117 02/23/20 19:26 116 22 100 Mechanical Ventilator 65 116 22 65 02/23/20 19:00 117 22 146/75 (98) 100 02/23/20 18:30 107 22 149/94 (112) 100 02/23/20 18:00 109 22 128/65 (86) 100 02/23/20 17:30 118 21 130/77 (94) 100 02/23/20 17:00 114 23 146/72 (96) 100 02/23/20 16:30 115 22 165/82 (109) 100 02/23/20 16:08 114 02/23/20 16:00 Mechanical Ventilator 02/23/20 16:00 100.2 113 23 168/75 (106) 100 02/23/20 16:00 65 02/23/20 15:30 108 22 190/83 (118) 100 02/23/20 15:22 105 22 100 Mechanical Ventilator 65 105 22 65 02/23/20 15:00 104 22 129/6 (47) 100 02/23/20 14:56 100.2 02/23/20 14:42 110 22 161/79 (106) 100 02/23/20 14:30 115 28 179/73 (108) 100 02/23/20 14:00 100.7 113 22 164/80 (108) 100 Accucheck: 252 Critical Care - Subjective ROS Limited/Unobtainable: Yes Condition: critical FI02: 65 Vent Support Breath Rate: 22 Vent Support Mode: AC Vent Tidal Volume: 550 Sputum Amount: Moderate PEEP: 8.0 PIP: 56 Tube Feeding Amount: 35 I&O: Intake and Output 02/23/20 02/24/20 19:00 07:00 Intake Total 1683.75 ml 1423.75 ml Output Total 675 ml 710 ml Balance 1008.75 ml 713.75 ml Free Water 100 ml IV Total 1373.75 ml 883.75 ml Tube Feeding 210 ml 420 ml Other 120 ml Output Urine Total 675 ml 710 ml ET-Tube: 7.5 ET Position: 25 Evans Zhang MD Feb 24, 2020 13:32
--- NOTE | 2020-02-24 14:00 | NUR ---
NURSE NOTES: Pt appears calm - no distress noted. Repositioned.
--- NOTE | 2020-02-24 15:51 | Cardiology Progress Note ---
Subjective DATE OF SERVICE: Feb 24, 2020 On isolation for Covid19 Less congestion and SOB. O2 requirements decreasing. Elevated K+ yesterday - subsequently corrected to 3.3 with kayexalate. 2D Echo reviewed - EF 45%, severe pulmonary hypertension, mild-moderate AV stenosis with ESTHER 1.5cm2 CXR (02/02) with cavitary lesion and mild congestive changes. Objective Last 24 Hour Vital Signs Date Time Temp Pulse Resp B/P (MAP) Pulse Ox O2 Delivery O2 Flow Rate FiO2 02/24/20 15:00 115 26 167/107 (127) 98 02/24/20 14:00 98 21 161/75 (103) 100 02/24/20 13:00 87 22 155/65 (95) 100 02/24/20 12:53 84 22 155/65 100 02/24/20 12:23 110 22 142/64 100 02/24/20 12:00 Mechanical Ventilator 02/24/20 12:00 101 02/24/20 12:00 93 20 142/64 (90) 100 02/24/20 12:00 65 02/24/20 12:00 97.8 88 22 142/64 (90) 100 02/24/20 11:13 121 22 100 Mechanical Ventilator 65 118 22 65 02/24/20 11:00 91 20 161/74 (103) 100 02/24/20 10:30 86 22 132/69 (90) 100 02/24/20 10:00 104 22 120/65 (83) 100 02/24/20 09:52 115 23 144/94 (111) 100 02/24/20 09:32 95 22 120/65 100 02/24/20 09:30 119 24 181/85 (117) 100 02/24/20 09:27 116 22 167/92 (117) 100 02/24/20 09:04 120 176/103 02/24/20 09:04 120 176/103 02/24/20 09:03 176/103 02/24/20 09:03 176/103 02/24/20 09:02 120 22 176/103 100 02/24/20 09:00 122 21 176/103 (127) 100 02/24/20 08:34 131 29 191/92 (125) 100 02/24/20 08:30 132 23 196/86 (122) 99 02/24/20 08:00 99.5 126 18 188/90 (122) 100 02/24/20 08:00 125 02/24/20 08:00 65 02/24/20 08:00 Mechanical Ventilator 02/24/20 07:25 113 24 100 Mechanical Ventilator 65 112 23 65 02/24/20 07:00 110 20 152/83 (106) 100 02/24/20 06:55 120 20 144/73 100 02/24/20 06:36 100.0 02/24/20 06:25 120 20 174/87 100 02/24/20 06:00 97 22 174/87 (116) 100 02/24/20 05:00 100.5 86 22 159/81 (107) 100 02/24/20 04:00 65 02/24/20 04:00 97 22 150/80 (103) 100 02/24/20 04:00 Mechanical Ventilator 02/24/20 03:44 92 22 150/80 100 02/24/20 03:32 116 02/24/20 03:27 120 23 100 Mechanical Ventilator 65 120 22 65 02/24/20 03:14 122 22 196/86 100 02/24/20 03:13 196/68 02/24/20 03:00 128 27 196/68 (110) 02/24/20 02:00 82 22 133/61 (85) 02/24/20 01:00 92 22 125/62 (83) 02/24/20 00:00 100.2 86 22 136/63 (87) 100 02/24/20 00:00 65 02/24/20 00:00 Mechanical Ventilator 02/23/20 23:36 91 22 165/81 100 02/23/20 23:17 120 02/23/20 23:09 116 22 100 Mechanical Ventilator 65 116 22 65 02/23/20 23:08 118 22 100 Mechanical Ventilator 65 02/23/20 23:06 124 22 195/129 100 02/23/20 23:06 195/129 02/23/20 23:00 123 26 195/129 (151) 100 02/23/20 22:00 110 24 155/75 (101) 100 02/23/20 21:21 113 149/81 02/23/20 21:00 118 25 149/81 (103) 100 02/23/20 20:00 99.8 116 22 143/67 (92) 100 02/23/20 20:00 65 02/23/20 20:00 Mechanical Ventilator 02/23/20 19:52 117 02/23/20 19:26 116 22 100 Mechanical Ventilator 65 116 22 65 02/23/20 19:00 117 22 146/75 (98) 100 02/23/20 18:30 107 22 149/94 (112) 100 02/23/20 18:00 109 22 128/65 (86) 100 02/23/20 17:30 118 21 130/77 (94) 100 02/23/20 17:00 114 23 146/72 (96) 100 02/23/20 16:30 115 22 165/82 (109) 100 02/23/20 16:08 114 02/23/20 16:00 Mechanical Ventilator 02/23/20 16:00 100.2 113 23 168/75 (106) 100 02/23/20 16:00 65 HEENT: normal ENT inspection RHYTHM: NSR LUNGS: bilat. rhonchi and rales CARDIAC: systolic murmur - 1/6 at base ABDOMEN: normal bowel sounds, non tender, soft EXTREMITIES: normal range of motion, non-pitting Laboratory Tests Test 02/23/20 17:11 02/23/20 18:55 02/23/20 23:11 02/24/20 00:35 POC Whole Blood Glucose 169 MG/DL (74-106) H Pending Vancomycin Level Trough 27.7 ug/mL (5.0-12.0) H Sodium Level 148 MMOL/L (136-145) H Potassium Level 3.3 MMOL/L (3.5-5.1) L Chloride Level 111 MMOL/L (98-107) H Carbon Dioxide Level 30 MMOL/L (21-32) Anion Gap 7 mmol/L (5-15) Blood Urea Nitrogen 40 mg/dL (7-18) H Creatinine 1.3 MG/DL (0.55-1.30) Estimat Glomerular Filtration Rate 50.7 mL/min (>60) Glucose Level 142 MG/DL (74-106) #H Calcium Level 7.4 MG/DL (8.5-10.1) L Test 02/24/20 04:00 02/24/20 05:31 02/24/20 05:40 02/24/20 06:00 Arterial Blood pH 7.476 (7.350-7.450) Arterial Blood Partial Pressure CO2 39.9 mmHg (35.0-45.0) Arterial Blood Partial Pressure O2 71.6 mmHg (75.0-100.0) L Arterial Blood HCO3 28.8 mmol/L (22.0-26.0) H Arterial Blood Oxygen Saturation 94.5 % (95-100) L Arterial Blood Base Excess 4.8 (-2-2) H Bryan Test Positive POC Whole Blood Glucose Pending Random Vancomycin Level 23.5 ug/mL White Blood Count 17.3 K/UL (4.8-10.8) H Red Blood Count 2.66 M/UL (4.20-5.40) L Hemoglobin 7.6 G/DL (12.0-16.0) L Hematocrit 23.4 % (37.0-47.0) L Mean Corpuscular Volume 88 FL (80-99) Mean Corpuscular Hemoglobin 28.5 PG (27.0-31.0) Mean Corpuscular Hemoglobin Concent 32.4 G/DL (32.0-36.0) Red Cell Distribution Width 17.6 % (11.6-14.8) H Platelet Count 561 K/UL (150-450) H Mean Platelet Volume 6.2 FL (6.5-10.1) L Neutrophils (%) (Auto) % (45.0-75.0) Lymphocytes (%) (Auto) % (20.0-45.0) Monocytes (%) (Auto) % (1.0-10.0) Eosinophils (%) (Auto) % (0.0-3.0) Basophils (%) (Auto) % (0.0-2.0) Differential Total Cells Counted 100 Neutrophils % (Manual) 94 % (45-75) H Lymphocytes % (Manual) 2 % (20-45) L Monocytes % (Manual) 4 % (1-10) Eosinophils % (Manual) 0 % (0-3) Basophils % (Manual) 0 % (0-2) Band Neutrophils 0 % (0-8) Platelet Estimate Increased H Platelet Morphology Normal Polychromasia 1+ Anisocytosis 2+ Sodium Level 148 MMOL/L (136-145) H Potassium Level 3.5 MMOL/L (3.5-5.1) Chloride Level 111 MMOL/L (98-107) H Carbon Dioxide Level 30 MMOL/L (21-32) Anion Gap 7 mmol/L (5-15) Blood Urea Nitrogen 40 mg/dL (7-18) H Creatinine 1.2 MG/DL (0.55-1.30) Estimat Glomerular Filtration Rate 55.6 mL/min (>60) Glucose Level 159 MG/DL (74-106) H Calcium Level 7.9 MG/DL (8.5-10.1) L Total Bilirubin 0.6 MG/DL (0.2-1.0) Direct Bilirubin 0.2 MG/DL (0.0-0.3) Aspartate Amino Transf (AST/SGOT) 107 U/L (15-37) H Alanine Aminotransferase (ALT/SGPT) 47 U/L (12-78) Alkaline Phosphatase 808 U/L (46-116) H Total Protein 6.9 G/DL (6.4-8.2) Albumin 1.8 G/DL (3.4-5.0) L Globulin 5.1 g/dL Albumin/Globulin Ratio 0.4 (1.0-2.7) L Test 02/24/20 06:09 POC Whole Blood Glucose Pending Assessment/Plan Assessment/Plan Covid19 PNA Bacteremia due to lung mass and recurrent pulmonary infections. + risk for endocarditis, but increased risk for PORFIRIO. Acute IL Ac/chronic diastolic CHF Lung mass - prior benign biopsy Pneumonia with cavitation Mild-mod degenerative aortic stenosis Acute renal failure Pulmonary hypertension (est PAsyst 58mmHg) Hypertension with labile BP range. Anemia Dehydration/hypernatremia corrected IRDM with elevated glucose. Sinus bradycardia on beta rusty rx. Dehydration/hypernatremia Meds updated IVF adjusted Evans Trinidad MD Feb 24, 2020 15:51
--- NOTE | 2020-02-24 16:00 | NUR ---
NURSE NOTES: Pt repositioned. Oral temp 99.5 F. Ice packs applied to axilla. Pt in no distress at this time. Will continue to monitor.
--- NOTE | 2020-02-24 17:00 | Infectious Diseases Prog Note ---
Assessment/Plan Assessment/Plan A 1. cavitary pneumonia with MRSA sputum AFB negative x 3 2. staph aureus (MRSA) sepsis 3. diabetes mellitus 4. hypertension 5. COPD 6. renal failure 7. aortic stenosis 8. Anemia 9. CHF, EF=40-45% 10. COVID19 pneumonia 11. Hypercapnic/ hypoxic respiratory failure P 1. Continue IV Vancomycin X 19 days 2. Continue Solumedrol 3. Continue Remdesivir , day 7 Subjective ROS Limited/Unobtainable: Yes Constitutional: Reports: fever, other - Vq=728.5 Neurologic: Reports: confusion, other - on restraint Allergies: Coded Allergies: No Known Allergies (Unverified , 07/30/15) Objective Last 24 Hour Vital Signs Date Time Temp Pulse Resp B/P (MAP) Pulse Ox O2 Delivery O2 Flow Rate FiO2 02/24/20 16:41 121 25 159/71 98 02/24/20 16:40 159/71 02/24/20 16:00 98.2 120 29 159/71 (100) 99 02/24/20 16:00 121 02/24/20 16:00 Mechanical Ventilator 02/24/20 16:00 65 02/24/20 15:17 122 24 100 Mechanical Ventilator 65 120 24 65 02/24/20 15:00 115 26 167/107 (127) 98 02/24/20 14:00 98 21 161/75 (103) 100 02/24/20 13:00 87 22 155/65 (95) 100 02/24/20 12:53 84 22 155/65 100 02/24/20 12:23 110 22 142/64 100 02/24/20 12:00 Mechanical Ventilator 02/24/20 12:00 101 02/24/20 12:00 93 20 142/64 (90) 100 02/24/20 12:00 65 02/24/20 12:00 97.8 88 22 142/64 (90) 100 02/24/20 11:13 121 22 100 Mechanical Ventilator 65 118 22 65 02/24/20 11:00 91 20 161/74 (103) 100 02/24/20 10:30 86 22 132/69 (90) 100 02/24/20 10:00 104 22 120/65 (83) 100 02/24/20 09:52 115 23 144/94 (111) 100 02/24/20 09:32 95 22 120/65 100 02/24/20 09:30 119 24 181/85 (117) 100 02/24/20 09:27 116 22 167/92 (117) 100 02/24/20 09:04 120 176/103 02/24/20 09:04 120 176/103 02/24/20 09:03 176/103 02/24/20 09:03 176/103 02/24/20 09:02 120 22 176/103 100 02/24/20 09:00 122 21 176/103 (127) 100 02/24/20 08:34 131 29 191/92 (125) 100 02/24/20 08:30 132 23 196/86 (122) 99 02/24/20 08:00 99.5 126 18 188/90 (122) 100 02/24/20 08:00 125 02/24/20 08:00 65 02/24/20 08:00 Mechanical Ventilator 02/24/20 07:25 113 24 100 Mechanical Ventilator 65 112 23 65 02/24/20 07:00 110 20 152/83 (106) 100 02/24/20 06:55 120 20 144/73 100 02/24/20 06:36 100.0 02/24/20 06:25 120 20 174/87 100 02/24/20 06:00 97 22 174/87 (116) 100 02/24/20 05:00 100.5 86 22 159/81 (107) 100 02/24/20 04:00 65 02/24/20 04:00 97 22 150/80 (103) 100 02/24/20 04:00 Mechanical Ventilator 02/24/20 03:44 92 22 150/80 100 02/24/20 03:32 116 02/24/20 03:27 120 23 100 Mechanical Ventilator 65 120 22 65 02/24/20 03:14 122 22 196/86 100 02/24/20 03:13 196/68 02/24/20 03:00 128 27 196/68 (110) 02/24/20 02:00 82 22 133/61 (85) 02/24/20 01:00 92 22 125/62 (83) 02/24/20 00:00 100.2 86 22 136/63 (87) 100 02/24/20 00:00 65 02/24/20 00:00 Mechanical Ventilator 02/23/20 23:36 91 22 165/81 100 02/23/20 23:17 120 02/23/20 23:09 116 22 100 Mechanical Ventilator 65 116 22 65 02/23/20 23:08 118 22 100 Mechanical Ventilator 65 02/23/20 23:06 124 22 195/129 100 02/23/20 23:06 195/129 02/23/20 23:00 123 26 195/129 (151) 100 02/23/20 22:00 110 24 155/75 (101) 100 02/23/20 21:21 113 149/81 02/23/20 21:00 118 25 149/81 (103) 100 02/23/20 20:00 99.8 116 22 143/67 (92) 100 02/23/20 20:00 65 02/23/20 20:00 Mechanical Ventilator 02/23/20 19:52 117 02/23/20 19:26 116 22 100 Mechanical Ventilator 65 116 22 65 02/23/20 19:00 117 22 146/75 (98) 100 02/23/20 18:30 107 22 149/94 (112) 100 02/23/20 18:00 109 22 128/65 (86) 100 02/23/20 17:30 118 21 130/77 (94) 100 02/23/20 17:00 114 23 146/72 (96) 100 Height (Feet): 5 Height (Inches): 1.00 Weight (Pounds): 168 HEENT: other - orally intubated Respiratory/Chest: pleural rub - on ventilator Cardiovascular: tachycardia Abdomen: soft, non tender Neurologic/Psychiatric: disoriented Laboratory Tests Test 02/23/20 17:11 02/23/20 18:55 02/23/20 23:11 02/24/20 00:35 POC Whole Blood Glucose 169 MG/DL (74-106) H Pending Vancomycin Level Trough 27.7 ug/mL (5.0-12.0) H Sodium Level 148 MMOL/L (136-145) H Potassium Level 3.3 MMOL/L (3.5-5.1) L Chloride Level 111 MMOL/L (98-107) H Carbon Dioxide Level 30 MMOL/L (21-32) Anion Gap 7 mmol/L (5-15) Blood Urea Nitrogen 40 mg/dL (7-18) H Creatinine 1.3 MG/DL (0.55-1.30) Estimat Glomerular Filtration Rate 50.7 mL/min (>60) Glucose Level 142 MG/DL (74-106) #H Calcium Level 7.4 MG/DL (8.5-10.1) L Test 02/24/20 04:00 02/24/20 05:31 02/24/20 05:40 02/24/20 06:00 Arterial Blood pH 7.476 (7.350-7.450) Arterial Blood Partial Pressure CO2 39.9 mmHg (35.0-45.0) Arterial Blood Partial Pressure O2 71.6 mmHg (75.0-100.0) L Arterial Blood HCO3 28.8 mmol/L (22.0-26.0) H Arterial Blood Oxygen Saturation 94.5 % (95-100) L Arterial Blood Base Excess 4.8 (-2-2) H Bryan Test Positive POC Whole Blood Glucose Pending Random Vancomycin Level 23.5 ug/mL White Blood Count 17.3 K/UL (4.8-10.8) H Red Blood Count 2.66 M/UL (4.20-5.40) L Hemoglobin 7.6 G/DL (12.0-16.0) L Hematocrit 23.4 % (37.0-47.0) L Mean Corpuscular Volume 88 FL (80-99) Mean Corpuscular Hemoglobin 28.5 PG (27.0-31.0) Mean Corpuscular Hemoglobin Concent 32.4 G/DL (32.0-36.0) Red Cell Distribution Width 17.6 % (11.6-14.8) H Platelet Count 561 K/UL (150-450) H Mean Platelet Volume 6.2 FL (6.5-10.1) L Neutrophils (%) (Auto) % (45.0-75.0) Lymphocytes (%) (Auto) % (20.0-45.0) Monocytes (%) (Auto) % (1.0-10.0) Eosinophils (%) (Auto) % (0.0-3.0) Basophils (%) (Auto) % (0.0-2.0) Differential Total Cells Counted 100 Neutrophils % (Manual) 94 % (45-75) H Lymphocytes % (Manual) 2 % (20-45) L Monocytes % (Manual) 4 % (1-10) Eosinophils % (Manual) 0 % (0-3) Basophils % (Manual) 0 % (0-2) Band Neutrophils 0 % (0-8) Platelet Estimate Increased H Platelet Morphology Normal Polychromasia 1+ Anisocytosis 2+ Sodium Level 148 MMOL/L (136-145) H Potassium Level 3.5 MMOL/L (3.5-5.1) Chloride Level 111 MMOL/L (98-107) H Carbon Dioxide Level 30 MMOL/L (21-32) Anion Gap 7 mmol/L (5-15) Blood Urea Nitrogen 40 mg/dL (7-18) H Creatinine 1.2 MG/DL (0.55-1.30) Estimat Glomerular Filtration Rate 55.6 mL/min (>60) Glucose Level 159 MG/DL (74-106) H Calcium Level 7.9 MG/DL (8.5-10.1) L Total Bilirubin 0.6 MG/DL (0.2-1.0) Direct Bilirubin 0.2 MG/DL (0.0-0.3) Aspartate Amino Transf (AST/SGOT) 107 U/L (15-37) H Alanine Aminotransferase (ALT/SGPT) 47 U/L (12-78) Alkaline Phosphatase 808 U/L (46-116) H Total Protein 6.9 G/DL (6.4-8.2) Albumin 1.8 G/DL (3.4-5.0) L Globulin 5.1 g/dL Albumin/Globulin Ratio 0.4 (1.0-2.7) L Test 02/24/20 06:09 POC Whole Blood Glucose Pending Current Medications Medications (Trade) Dose Ordered Sig/Ivana Route PRN Reason Start Time Stop Time Status Last Admin Dose Admin Acetaminophen (Tylenol) 650 mg Q6H PRN ORAL Temp >100.5 01/28/20 22:45 02/27/20 22:44 02/24/20 06:06 Acetaminophen (Tylenol) 650 mg Q6H PRN ORAL Mild Pain (Pain Scale 1-3) 02/22/20 16:15 03/23/20 16:14 Amlodipine Besylate (Norvasc) 10 mg DAILY ORAL 02/01/20 09:00 03/02/20 08:59 02/24/20 09:04 Aspirin (ASA) 81 mg DAILY ORAL 02/14/20 09:00 03/30/20 08:59 02/24/20 09:03 Clonidine HCl (Catapres Tab) 0.1 mg Q4H PRN ORAL SBP > 150mmHg 02/06/20 07:00 05/06/20 06:59 02/24/20 16:40 Dextrose (Dextrose 50%) 25 ml Q30M PRN IV Hypoglycemia 01/28/20 22:45 04/27/20 22:44 Dextrose (Dextrose 50%) 50 ml Q30M PRN IV Hypoglycemia 01/28/20 22:45 04/27/20 22:44 Enoxaparin Sodium (Lovenox) 80 mg Q12HR SUBQ 02/13/20 18:54 05/13/20 18:53 02/24/20 09:02 Epoetin Haseeb (Epoetin Haseeb-EPBX(NON ESRD)) 8,000 unit WED-WED-WED SUBQ 02/05/20 21:00 05/05/20 20:59 02/23/20 21:49 Guaifenesin/ Dextromethorphan (Robitussin DM Syrup) 15 ml Q4H PRN ORAL For Cough 02/12/20 16:53 05/12/20 16:52 02/19/20 22:21 Insulin Aspart (NovoLOG) Q6HR SUBQ 01/29/20 00:00 04/28/20 00:00 02/24/20 12:15 Insulin Detemir (Levemir) 10 units BID SUBQ 02/08/20 18:00 05/04/20 17:59 02/24/20 09:17 Ipratropium [place] (Atrovent Inh) 1 puffs Q4H INH 02/18/20 18:00 03/19/20 17:59 02/24/20 14:00 Isosorbide Mononitrate (Imdur) 30 mg DAILY ORAL 02/02/20 09:00 03/03/20 08:59 02/24/20 09:03 Lidocaine (Lidoderm 5% PATCH) 1 patch DAILY TDERMAL 02/11/20 09:30 05/11/20 09:29 02/24/20 09:01 Lorazepam (Ativan 2mg/ml 1ml) 1 mg Q2H PRN IV Agitation 02/23/20 05:15 03/01/20 05:14 02/24/20 16:41 Lorazepam (Ativan) 1 mg Q4H PRN ORAL For Anxiety 02/21/20 22:15 02/28/20 22:14 02/22/20 21:21 Methocarbamol (Robaxin) 500 mg Q8H PRN ORAL muscle spasm 02/11/20 09:30 03/12/20 09:29 02/21/20 05:13 Methylprednisolone Sodium Succinate (Solu-MEDROL) 60 mg EVERY 12 HOURS IVP 02/23/20 21:00 05/23/20 20:59 02/24/20 09:02 Metoprolol Tartrate (Lopressor) 25 mg Q12HR ORAL 02/04/20 21:00 05/04/20 20:59 02/24/20 09:04 Morphine Sulfate (Morphine Sulfate) 2 mg Q2H PRN IVP For Pain 4-10 02/24/20 15:00 03/02/20 14:59 02/24/20 16:41 Multivitamins (Multivitamins) 1 tab DAILY NG 02/23/20 12:30 03/24/20 12:29 02/24/20 09:05 Nitroglycerin (Ntg) 0.4 mg Q5M PRN SL Prn Chest Pain 02/01/20 08:00 03/02/20 07:59 02/21/20 14:57 Ondansetron HCl (Zofran) 4 mg Q6H PRN IVP Nausea & Vomiting 01/28/20 22:45 02/27/20 22:44 02/01/20 18:10 Pantoprazole (Protonix) 40 mg DAILY IVP 02/23/20 09:00 03/24/20 08:59 02/24/20 09:03 Remdesivir 100 mg/ Sodium Chloride 250 ml @ 250 mls/hr Q24H IV 02/23/20 18:00 02/27/20 18:59 02/23/20 18:02 Sodium Chloride 1,000 ml @ 75 mls/hr [id number] IV 02/24/20 16:00 03/25/20 15:59 02/24/20 16:42 Vancomycin HCl (Vanco pharmacy to dose) 1 ea DAILY PRN MISC Per rx protocol 02/13/20 11:30 03/14/20 11:29 Anderson Durham MD Feb 24, 2020 17:00
[2020-02-24] MEDS: Maintenance Dose:Remdesivir 100mg/NS 230ml x 4 Doses IV SCH ×2 (17:05)
--- NOTE | 2020-02-24 17:30 | NUR ---
NURSE NOTES: Dr Trinidad assessing pt at bedside.
--- NOTE | 2020-02-24 18:00 | NUR ---
NURSE NOTES: 1 BM noted. Pt cleaned and repositioned. Pt appears calm in no distress at this time.
--- NOTE | 2020-02-24 19:10 | NUR ---
NURSE NOTES: Received patient and report from JO-ANN Andraed. Patient is observed resting in bed and remains restless and confused. No pain noted upon assessment. Pt is currently orally intubated ett size 7.5 noted to be 25 @ lip line. Pt appears to be tolerating current vent settings well. Vent settings as follows: AC 22 TV 550 FiO2 65% PEEP 8. Bilateral lower lobe breath sounds noted to be diminished upon auscultation. Pt noted to be ST on tele monitor with a HR of 114. R FA 20g IV catheter which remains asymptomatic, intact and patent. 1/2 NS currently infusing at 75 mL/hr as ordered. VS remain stable at this time. Active bowel sounds noted in all four quadrants; abdomen remains round and soft. OG Tube noted which remains intact and secured. Nepro continues to infuse at 35mL/hr, pt tolerating feeding well. Flores catheter noted draining yellow urine to gravity. Diagnostics reviewed at bedside. Skin remains intact. Bilateral soft wrist restraints remain in place for pt safety. Pt noted to attempt to pull medical devices. CMS remains intact and ROM exercises provided per pt tolerance. Fall, Aspiration and Skin precautions observed. Pt remains resting in bed; Bed remains in the lowest position with the safety wheels engaged, call light within reach, side rails up x3 and bed alarm activated. Will continue plan of care. Will continue to monitor.
--- NOTE | 2020-02-24 19:12 | NUR ---
RESPIRATORY NOTE: Received pt on AC VC 22, 550VT, 65%, PEEP +8. Pt intubated w/ ETT 7.5 @ 25cm lipline, secured by anchorfast. Pt is asleep/arousable. B/S deirdre. diminished, sxn small to moderate amounts of thick, pale-yellow secretions. Vent plugged into red outlet, ambubag at bedside. Pt in no apparent distress at this time. Will continue to monitor pt.
--- NOTE | 2020-02-24 19:19 | NUR ---
NURSE HAND-OFF REPORT: Latest Vital Signs: Temperature 98.2 , Pulse 91 , B/P 143 /77 , Respiratory Rate 24 , O2 SAT 100 , Mechanical Ventilator, FiO2 65% . Vital Sign Comment: stable EKG Rhythm: Sinus Rhythm Rhythm change?: N MD Notified?: n/a MD Response: n/a Latest Pineda Fall Score: 50 Fall Risk: High Risk Safety Measures: Call light Within Reach, Bed Alarm Zone 1, Side Rails Side Rails x2, Bed position Low and Locked. Fall Precautions: Yellow Socks Yellow Gown Door Sign Patient Fall Education Report given to JO-ANN Terry.
--- NOTE | 2020-02-24 20:15 | NUR ---
NURSE NOTES: Administered Morphine, scanned barcode in covid + room and computer rebooted before save was pressed. Did not take medication outside to rescan due to isolation precautions. Verified by JO-ANN Brito prior to administration, due to inability to rescan medication. JO-ANN Brito present at bedside to assist with repositioning patient. Will reassess and continue to monitor pt. Addendum: 02/25/20 at 0101 by KEN BARCENAS RN VS obtained and remain stable, elevated BP noted. FLACC score of 7 noted with a pain goal of 0/10. Nonpharmaceutical interventions included repositioning, pillow support, ice and rest. Will continue to monitor and reassess.
[2020-02-24] MEDS: fentaNYL 2500mcg/NS 250ml 250 ML IV PRN (20:26)
--- NOTE | 2020-02-24 20:45 | NUR ---
NURSE NOTES: Reassessed pt after PRN morphine administration. VS remain stable. No adverse effects noted, FLACC score of 1 noted (occasional grimacing) with a pain goal of 0/10. Nonpharmaceutical interventions included repositioning, pillow support, ice and rest. Will continue to monitor and assess.
--- NOTE | 2020-02-24 21:00 | NUR ---
NURSE NOTES: Fentanyl gtt started for pt agitation as ordered with a goal of RASS -2. Will continue to titrate to goal. Pt tolerating Fentanyl well and remains free from s/sx of adverse effects. Pt provided with a bed bath, oral care and linen change. Bedside assessment performed, assessed pt for pain with a FLACC score of 0 now noted. PRN morphine previously administered with a FLACC score of 7 noted. No s/sx of adverse effects noted. Pt remains free from s/sx of acute cardiopulmonary distress at this time. Pt assessed for restraint removal criteria, diversional activities in place but remain unsuccessful. ROM exercises performed per pt tolerance. Pt repositioned for safety and comfort. Fall, Aspiration and Skin precautions observed. Pt remains resting in bed; Bed remains in the lowest position with the safety wheels engaged, call light within reach, side rails up x3 and bed alarm activated. Will continue plan of care. Will continue to monitor.
--- NOTE | 2020-02-24 22:24 | General Progress Note ---
Subjective Allergies: Coded Allergies: No Known Allergies (Unverified , 07/30/15) Subjective Above noted more awake restless, agitated d/w RN required BDZ for sedation (+) BM Objective Last 24 Hour Vital Signs Date Time Temp Pulse Resp B/P (MAP) Pulse Ox O2 Delivery O2 Flow Rate FiO2 02/24/20 22:00 78 22 153/56 (88) 100 02/24/20 21:50 Mechanical Ventilator Mechanical Ventilator Mechanical Ventilator 02/24/20 21:42 78 22 157/64 (95) 99 02/24/20 21:41 22 157/64 Mechanical Ventilator 65 02/24/20 21:26 70 26 148/64 (92) 100 02/24/20 21:26 26 148/64 Mechanical Ventilator 65 02/24/20 21:11 20 148/64 Mechanical Ventilator 65 02/24/20 21:11 85 20 146/64 (91) 100 02/24/20 20:56 20 146/64 65 02/24/20 20:56 87 20 140/65 (90) 100 02/24/20 20:41 117 24 192/102 (132) 100 02/24/20 20:41 20 140/65 Mechanical Ventilator 65 02/24/20 20:26 26 147/89 Mechanical Ventilator 65 02/24/20 20:26 114 25 147/89 (108) 100 02/24/20 20:16 112 161/79 02/24/20 20:00 98.9 97 22 161/79 (106) 100 02/24/20 20:00 65 02/24/20 19:43 104 02/24/20 19:10 91 24 100 Mechanical Ventilator 65 90 24 65 02/24/20 19:00 80 21 143/77 (99) 100 02/24/20 18:00 85 22 141/69 (93) 100 02/24/20 17:30 102 19 143/70 (94) 100 02/24/20 17:11 102 25 162/82 99 02/24/20 17:00 118 29 162/82 (108) 99 02/24/20 16:41 121 25 159/71 98 02/24/20 16:40 159/71 02/24/20 16:00 99.5 120 29 159/71 (100) 99 02/24/20 16:00 121 02/24/20 16:00 Mechanical Ventilator 02/24/20 16:00 65 02/24/20 15:17 122 24 100 Mechanical Ventilator 65 120 24 65 02/24/20 15:00 115 26 167/107 (127) 98 02/24/20 14:00 98 21 161/75 (103) 100 02/24/20 13:00 87 22 155/65 (95) 100 02/24/20 12:53 84 22 155/65 100 02/24/20 12:23 110 22 142/64 100 02/24/20 12:00 Mechanical Ventilator 02/24/20 12:00 101 02/24/20 12:00 93 20 142/64 (90) 100 02/24/20 12:00 65 02/24/20 12:00 97.8 88 22 142/64 (90) 100 02/24/20 11:13 121 22 100 Mechanical Ventilator 65 118 22 65 02/24/20 11:00 91 20 161/74 (103) 100 02/24/20 10:30 86 22 132/69 (90) 100 02/24/20 10:00 104 22 120/65 (83) 100 02/24/20 09:52 115 23 144/94 (111) 100 02/24/20 09:32 95 22 120/65 100 02/24/20 09:30 119 24 181/85 (117) 100 02/24/20 09:27 116 22 167/92 (117) 100 02/24/20 09:04 120 176/103 02/24/20 09:04 120 176/103 02/24/20 09:03 176/103 02/24/20 09:03 176/103 02/24/20 09:02 120 22 176/103 100 02/24/20 09:00 122 21 176/103 (127) 100 02/24/20 08:34 131 29 191/92 (125) 100 02/24/20 08:30 132 23 196/86 (122) 99 02/24/20 08:00 99.5 126 18 188/90 (122) 100 02/24/20 08:00 125 02/24/20 08:00 65 02/24/20 08:00 Mechanical Ventilator 02/24/20 07:25 113 24 100 Mechanical Ventilator 65 112 23 65 02/24/20 07:00 110 20 152/83 (106) 100 02/24/20 06:55 120 20 144/73 100 02/24/20 06:36 100.0 02/24/20 06:25 120 20 174/87 100 02/24/20 06:00 97 22 174/87 (116) 100 02/24/20 05:00 100.5 86 22 159/81 (107) 100 02/24/20 04:00 65 02/24/20 04:00 97 22 150/80 (103) 100 02/24/20 04:00 Mechanical Ventilator 02/24/20 03:44 92 22 150/80 100 02/24/20 03:32 116 02/24/20 03:27 120 23 100 Mechanical Ventilator 65 120 22 65 02/24/20 03:14 122 22 196/86 100 02/24/20 03:13 196/68 02/24/20 03:00 128 27 196/68 (110) 02/24/20 02:00 82 22 133/61 (85) 02/24/20 01:00 92 22 125/62 (83) 02/24/20 00:00 100.2 86 22 136/63 (87) 100 02/24/20 00:00 65 02/24/20 00:00 Mechanical Ventilator 02/23/20 23:36 91 22 165/81 100 02/23/20 23:17 120 02/23/20 23:09 116 22 100 Mechanical Ventilator 65 116 22 65 02/23/20 23:08 118 22 100 Mechanical Ventilator 65 02/23/20 23:06 124 22 195/129 100 02/23/20 23:06 195/129 02/23/20 23:00 123 26 195/129 (151) 100 Intake and Output 02/23/20 02/24/20 19:00 07:00 Intake Total 1683.75 ml 1423.75 ml Output Total 675 ml 710 ml Balance 1008.75 ml 713.75 ml Free Water 100 ml IV Total 1373.75 ml 883.75 ml Tube Feeding 210 ml 420 ml Other 120 ml Output Urine Total 675 ml 710 ml Laboratory Tests 02/23/20 23:11: POC Whole Blood Glucose [Pending] 02/24/20 00:35: Sodium Level 148H, Potassium Level 3.3L, Chloride Level 111H, Carbon Dioxide Level 30, Anion Gap 7, Blood Urea Nitrogen 40H, Creatinine 1.3, Estimat Glomerular Filtration Rate 50.7, Glucose Level 142#H, Calcium Level 7.4L 02/24/20 04:00: Arterial Blood pH 7.476H, Arterial Blood Partial Pressure CO2 39.9, Arterial Blood Partial Pressure O2 71.6L, Arterial Blood HCO3 28.8H, Arterial Blood Oxygen Saturation 94.5L, Arterial Blood Base Excess 4.8H, Bryan Test Positive 02/24/20 05:31: POC Whole Blood Glucose [Pending] 02/24/20 05:40: Random Vancomycin Level 23.5 02/24/20 06:00: White Blood Count 17.3H, Red Blood Count 2.66L, Hemoglobin 7.6L, Hematocrit 23.4L, Mean Corpuscular Volume 88, Mean Corpuscular Hemoglobin 28.5, Mean Corpuscular Hemoglobin Concent 32.4, Red Cell Distribution Width 17.6H, Platelet Count 561H, Mean Platelet Volume 6.2L, Neutrophils (%) (Auto) , Lymphocytes (%) (Auto) , Monocytes (%) (Auto) , Eosinophils (%) (Auto) , Basophils (%) (Auto) , Differential Total Cells Counted 100, Neutrophils % (Manual) 94H, Lymphocytes % (Manual) 2L, Monocytes % (Manual) 4, Eosinophils % (Manual) 0, Basophils % (M anual) 0, Band Neutrophils 0, Platelet Estimate IncreasedH, Platelet Morphology Normal, Polychromasia 1+, Anisocytosis 2+, Sodium Level 148H, Potassium Level 3.5, Chloride Level 111H, Carbon Dioxide Level 30, Anion Gap 7, Blood Urea Nitrogen 40H, Creatinine 1.2, Estimat Glomerular Filtration Rate 55.6, Glucose Level 159H, Calcium Level 7.9L, Total Bilirubin 0.6, Direct Bilirubin 0.2, Aspartate Amino Transf (AST/SGOT) 107H, Alanine Aminotransferase (ALT/SGPT) 47, Alkaline Phosphatase 808H, Total Protein 6.9, Albumin 1.8L, Globulin 5.1, Albumin/Globulin Ratio 0.4L 02/24/20 06:09: POC Whole Blood Glucose [Pending] Height (Feet): 5 Height (Inches): 1.00 Weight (Pounds): 168 Objective Patient seen in ICU (+) ETT, (+) OGT Restless Assessment/Plan Assessment/Plan: Assessment - COVID pneumonitis - Resp failure - malnutrition, declining albumin - fatty liver - hepatitis C with nodular liver, PCR (+) - abnormal LFT - due to COVD, fatty liver, and HCV - HTN - COPD - Lung mass - DM - PSVT - anemia Recommendations - Continue TF - follow LFT - PPI - Elevate HOB - outpatient HCV eradication - laxative PRN - Outpatient colonoscopy once recovered from current illness - check GGT Feliberto Pérez MD Feb 24, 2020 22:24
--- NOTE | 2020-02-24 23:00 | NUR ---
NURSE NOTES: Pt provided with a partial bed bath and linen change. Loose, dark and tar like stool noted, will consult with physician. Unable to collect sample as stool is liquid and absorbed by linens. Bedside assessment performed, assessed pt for pain with a FLACC score of 0 noted. RASS score of -1 noted. Fentanyl remains infusing for agitation, will titrate accordingly and ensure pt remains hemodynamically stable. VS obtained and remain stable at this time, SBP noted to be elevated, will administer PRN Catapres as ordered if clinically indicated as nonpharmacological interventions. Respiratory status remains stable at this time with no increase in WOB noted. Bilateral soft wrist restraints remain in place for pt safety. Pt continues to attempt to pull medical devices. ROM exercises performed per pt tolerance, CMS remains intact. Pt remains clean and dry and repositioned for comfort and safety. Fall, Aspiration and Skin precautions observed. Pt remains resting in bed; Bed remains in the lowest position with the safety wheels engaged, call light within reach, side rails up x3 and bed alarm activated. Will continue plan of care. Will continue to monitor.
[2020-02-25] VITALS (46 sets, daily range): BP systolic 117–197; BP diastolic 42–121
[2020-02-25] MEDS: Morphine Sulfate 2mg/ml Inj(IV/IM USE ONLY) IVP PRN ×2 (00:42→12:24)
[2020-02-25] MEDS: NovoLOG Insulin Flexpen SUBQ SCH ×4 (00:54→18:00)
--- NOTE | 2020-02-25 01:00 | NUR ---
NURSE NOTES: Bedside assessment performed, assessed pt for pain with a FLACC score of 2 noted. RASS score of -1 noted. Fentanyl remains infusing for agitation, will continue to titrate accordingly and ensure pt remains hemodynamically stable. Respiratory status remains stable at this time with no increase in WOB noted. Moderate amount of secretions noted. Pt continues to attempt to pull medical devices; Bilateral soft wrist restraints remain in place for pt safety and CMS remains intact. Pt remains clean and dry and repositioned for comfort and safety. Fall, Aspiration and Skin precautions observed. Pt remains resting in bed; Bed remains in the lowest position with the safety wheels engaged, call light within reach, side rails up x3 and bed alarm activated. Will continue plan of care. Will continue to monitor.
--- NOTE | 2020-02-25 03:00 | NUR ---
NURSE NOTES: Bedside assessment performed, assessed pt for pain with a FLACC score of 0 noted. RASS score of -2 noted. Fentanyl remains infusing at 180 mcg/hr and pt remains hemodynamically stable. Respiratory status remains stable at this time with no increase in WOB noted. Pt continues to attempt to pull medical devices; Bilateral soft wrist restraints remain in place for pt safety and CMS remains intact. Pt remains clean and dry and repositioned for comfort and safety. Fall, Aspiration and Skin precautions observed. Pt remains resting in bed; Bed remains in the lowest position with the safety wheels engaged, call light within reach, side rails up x3 and bed alarm activated. Will continue plan of care. Will continue to monitor.
[2020-02-25] MEDS: Ipratropium Bromide Inhaler INH SCH ×6 (03:08→23:19)
--- NOTE | 2020-02-25 05:00 | NUR ---
NURSE NOTES: Bedside assessment performed, assessed pt for pain with a FLACC score of 0 noted. RASS score of -2 noted. Fentanyl titrated to 180 mcg/hr in order to reach goal RASS. AM lab samples drawn without incident for analysis, will await results. Fall, Aspiration and Skin precautions observed. Pt remains resting in bed; Bed remains in the lowest position with the safety wheels engaged, call light within reach, side rails up x3 and bed alarm activated. Will continue plan of care. Will continue to monitor.
[2020-02-25] MEDS: LORazepam Inj 2mg/ml 1ml IV PRN ×2 (05:34→12:24)
--- NOTE | 2020-02-25 06:14 | NUR ---
NURSE NOTES: Bedside assessment performed, assessed pt for pain with a FLACC score of 0 noted. RASS score of -2 noted. Fentanyl titrated to 200 mcg/hr in order to reach goal RASS. PRN Ativan given as ordered, no s/sx of adverse effects noted. Pt remains hemodynamically stable. Respiratory status remains stable at this time with no increase in WOB noted. Pt continues to attempt to pull medical devices; Bilateral soft wrist restraints remain in place for pt safety and CMS remains intact. Pt remains clean and dry and repositioned for comfort and safety. Fall, Aspiration and Skin precautions observed. Pt remains resting in bed; Bed remains in the lowest position with the safety wheels engaged, call light within reach, side rails up x3 and bed alarm activated. Will continue plan of care. Will continue to monitor.
--- NOTE | 2020-02-25 06:35 | NUR ---
RESPIRATORY NOTE: Received pt on AC 22, 550, +8, 60% fio2. Spo2 98% on current settings. Pt is intubated with a 7.5 ETT secured with an anchorfast 25cm at the lipline. Pt is COVID+. Pt is sedated. SXN small amounts of white/ yellow secretions. Bilateral B/S are diminished throughout with equal chest rise. Vent is plugged into red outlet. Alarms are on and audible. Ambu bag at bedside. Pt is in no apparent distress at this time. Will continue to monitor and follow plan of care.
[2020-02-25 07:03] LABS: ALBUMIN 1.8 G/DL (3.4-5.0); ALBUMIN/GLOBULIN RATIO 0.4 (1.0-2.7); BILIRUBIN,DIRECT 0.2 MG/DL (0.0-0.3); BILIRUBIN,TOTAL 0.5 MG/DL (0.2-1.0); CREATININE 1.3 MG/DL (0.55-1.30); POTASSIUM 3.3 MMOL/L (3.5-5.1)
[2020-02-25 07:09] LABS: HEMATOCRIT 21.3 % (37.0-47.0); HEMOGLOBIN 7.4 G/DL (12.0-16.0); MEAN CORPUSCULAR VOLUME 88 FL (80-99); PLATELET COUNT 497 K/UL (150-450); RED BLOOD COUNT 2.43 M/UL (4.20-5.40); RED CELL DISTRIBUTION WIDTH 18.1 % (11.6-14.8); WHITE BLOOD COUNT 18.4 K/UL (4.8-10.8)
--- NOTE | 2020-02-25 07:22 | NUR ---
NURSE HAND-OFF REPORT: Latest Vital Signs: Temperature 99.0 , Pulse 66 , B/P 147 /54 , Respiratory Rate 22 , O2 SAT 99 , Mechanical Ventilator, O2 Flow Rate . Vital Sign Comment: EKG Rhythm: Sinus Rhythm Rhythm change?: N MD Notified?: N Response: N/A Latest Pineda Fall Score: 50 Fall Risk: High Risk Safety Measures: Call light Within Reach, Bed Alarm Zone 1, Side Rails Side Rails x3, Bed position Low and Locked. Fall Precautions: Yellow Socks Yellow Gown Door Sign Patient Fall Education Report given to JO-ANN Alvarez. Endorsed plan of care.
--- NOTE | 2020-02-25 08:00 | NUR ---
NURSE NOTES: RECEIVED REPORT FROM DALY Reynoso PT ON SEDATION DRIP FENTANYL AT 200MG. PT VERY RESTLESS, KICKING LEGS. ST ON MONITOR, BP ELEVATION. FEBRILE. COOLING MEASURES IN PLACE. TUBE FEED NEPRO AT 35, NO RESIDUALS. ABDOMEN DISTENDED, ON RIGHT QUADRANT. BOWEL SOUNDS HYPOACTIVE. NO BM. SOFT, BILATERAL PEDAL PULSES INTACT. PITTING EDEMA OF UPPER EXTREMITIES. BILATERAL SOFT WRIST RESTRAINTS IN PLACE. IV ACCESS, RT HAND PUFFY. WILL MONITOR PT CLOSELY. SIDE SAILS X3. LOCKED, IN LOW POSITION. WILL CONTINUE TO MONITOR.
[2020-02-25] MEDS: Solu-MEDROL 125mg Inj IVP SCH ×2 (08:14→20:16)
[2020-02-25] MEDS: Pantoprazole Inj IVP SCH ×3 (08:14→20:15)
[2020-02-25] MEDS: Aspirin Baby 81mg ORAL SCH (08:15)
[2020-02-25] MEDS: Imdur 30mg tab ORAL SCH (09:00)
[2020-02-25] MEDS: Enoxaparin 80mg Inj SUBQ SCH ×2 (09:00→21:00)
[2020-02-25] MEDS ORDERED: Lidocaine 1% Plain 30 ml INJ SCH (09:30)
[2020-02-25] MEDS ORDERED: Heparin1,000 units/500ml Premix(Conc:2 units/ml) IV SCH (09:30)
[2020-02-25] MEDS: Levemir Flexpen SUBQ SCH ×2 (09:34→18:00)
--- NOTE | 2020-02-25 10:10 | NUR ---
NURSE NOTES: PT VERY RESTLESS. SEDATION RUNNING, ATIVAN AND PAIN MEDICATION ADMINISTERED. PT PULLED BACK UP IN BED. COMBATIVE. WILL CONTINUE TO MONITOR PT.
--- NOTE | 2020-02-25 10:22 | Consultation ---
History of Present Illness General Chief Complaint: Altered Level of Consciousness Present Illness Allergies: Coded Allergies: No Known Allergies (Unverified , 07/30/15) Medication History Scheduled Amlodipine Besylate (Norvasc), 10 MG ORAL DAILY Atenolol* (Tenormin*), 25 MG ORAL BID, (Reported) Doxazosin Mesylate* (Cardura*), 4 MG ORAL DAILY, (Reported) Gabapentin* (Gabapentin*), 600 MG ORAL THREE TIMES A DAY Hydrochlorothiazide* (Hydrochlorothiazide*), 25 MG ORAL DAILY, (Reported) Scheduled PRN Diazepam* (Valium*), 5 MG ORAL TID PRN for For Pain Hydrocodone Bit/Acetaminophen 5-325* ([place] 5-325 Tablet*), 1 TAB ORAL Q4H PRN for FOR PAIN Ibuprofen* (Motrin*), 600 MG ORAL Q6H PRN for FOR PAIN Meclizine Hcl (Meclizine Hcl), 25 MG ORAL THREE TIMES A DAY PRN for for dizziness Tramadol Hcl* (Ultram*), 50 MG ORAL Q6H PRN for For Pain Miscellaneous Medications Hum Insulin Nph/Reg Insulin Hm (Novolin 70-30 100 Unit/Ml Vial), (Reported) Patient History Healthcare decision maker Resuscitation status Advanced Directive on File Physical Exam Last 24 Hour Vital Signs Date Time Temp Pulse Resp B/P (MAP) Pulse Ox O2 Delivery O2 Flow Rate FiO2 02/25/20 08:16 61 147/51 02/25/20 08:16 61 147/51 02/25/20 07:00 66 22 147/54 (85) 99 02/25/20 07:00 85 22 98 Mechanical Ventilator 60 84 22 60 02/25/20 06:30 22 145/83 Mechanical Ventilator 60 02/25/20 06:04 69 22 139/70 100 02/25/20 06:00 94 22 139/68 (91) 100 02/25/20 05:34 128 36 167/110 100 02/25/20 05:30 22 139/70 Mechanical Ventilator 60 02/25/20 05:30 94 22 139/70 (93) 100 02/25/20 05:15 22 138/70 Mechanical Ventilator 60 02/25/20 05:15 102 167/82 (110) 02/25/20 05:00 22 167/82 Mechanical Ventilator 60 02/25/20 05:00 100 22 167/82 (110) 100 02/25/20 04:45 22 146/59 Mechanical Ventilator 60 02/25/20 04:00 99.0 69 22 139/64 (89) 97 02/25/20 04:00 60 02/25/20 03:45 22 138/64 Mechanical Ventilator 60 02/25/20 03:25 77 02/25/20 03:08 78 22 100 Mechanical Ventilator 60 80 22 60 02/25/20 03:00 77 21 144/66 (92) 98 02/25/20 02:45 22 144/66 Mechanical Ventilator 60 02/25/20 02:00 69 22 152/58 (89) 100 02/25/20 01:45 22 136/69 Mechanical Ventilator 60 02/25/20 01:45 83 22 136/69 (91) 99 02/25/20 01:30 22 135/47 Mechanical Ventilator 60 02/25/20 01:30 79 22 135/47 (76) 99 02/25/20 01:15 80 22 136/43 (74) 98 02/25/20 01:15 22 136/43 Mechanical Ventilator 60 02/25/20 01:00 83 22 131/42 (71) 98 02/25/20 01:00 22 131/42 Mechanical Ventilator 60 02/25/20 00:45 24 162/95 Mechanical Ventilator 60 02/25/20 00:45 105 24 162/95 (117) 98 02/25/20 00:44 100 02/25/20 00:30 99 22 164/68 (100) 98 02/25/20 00:30 22 164/68 Mechanical Ventilator 60 02/25/20 00:15 108 28 157/72 (100) 98 02/25/20 00:15 28 157/72 Mechanical Ventilator 60 02/25/20 00:00 98.9 115 23 158/72 (100) 98 02/25/20 00:00 23 158/77 Mechanical Ventilator 60 02/25/20 00:00 60 02/24/20 23:45 23 166/81 Mechanical Ventilator 60 02/24/20 23:45 124 24 166/81 (109) 98 02/24/20 23:30 116 23 178/102 (127) 97 02/24/20 23:30 24 178/102 Mechanical Ventilator 60 02/24/20 23:15 23 184/102 Mechanical Ventilator 60 02/24/20 23:15 104 26 98 Mechanical Ventilator 60 101 26 60 02/24/20 23:15 116 23 184/102 (129) 97 02/24/20 23:00 76 22 158/70 (99) 100 02/24/20 23:00 22 153/56 Mechanical Ventilator 60 02/24/20 23:00 60 02/24/20 22:41 22 158/70 Mechanical Ventilator 65 02/24/20 22:00 78 22 153/56 (88) 100 02/24/20 21:50 Mechanical Ventilator Mechanical Ventilator Mechanical Ventilator 02/24/20 21:42 78 22 157/64 (95) 99 02/24/20 21:41 22 157/64 Mechanical Ventilator 65 02/24/20 21:26 70 26 148/64 (92) 100 02/24/20 21:26 26 148/64 Mechanical Ventilator 65 02/24/20 21:11 20 148/64 Mechanical Ventilator 65 02/24/20 21:11 85 20 146/64 (91) 100 02/24/20 20:56 20 146/64 65 02/24/20 20:56 87 20 140/65 (90) 100 02/24/20 20:41 117 24 192/102 (132) 100 02/24/20 20:41 20 140/65 Mechanical Ventilator 65 02/24/20 20:26 26 147/89 Mechanical Ventilator 65 02/24/20 20:26 114 25 147/89 (108) 100 02/24/20 20:16 112 161/79 02/24/20 20:00 98.9 97 22 161/79 (106) 100 02/24/20 20:00 65 02/24/20 19:43 104 02/24/20 19:10 91 24 100 Mechanical Ventilator 65 90 24 65 02/24/20 19:00 80 21 143/77 (99) 100 02/24/20 18:00 85 22 141/69 (93) 100 02/24/20 17:30 102 19 143/70 (94) 100 02/24/20 17:11 102 25 162/82 99 02/24/20 17:00 118 29 162/82 (108) 99 02/24/20 16:41 121 25 159/71 98 02/24/20 16:40 159/71 02/24/20 16:00 99.5 120 29 159/71 (100) 99 02/24/20 16:00 121 02/24/20 16:00 Mechanical Ventilator 02/24/20 16:00 65 02/24/20 15:17 122 24 100 Mechanical Ventilator 65 120 24 65 02/24/20 15:00 115 26 167/107 (127) 98 02/24/20 14:00 98 21 161/75 (103) 100 02/24/20 13:00 87 22 155/65 (95) 100 02/24/20 12:53 84 22 155/65 100 02/24/20 12:23 110 22 142/64 100 02/24/20 12:00 Mechanical Ventilator 02/24/20 12:00 101 02/24/20 12:00 93 20 142/64 (90) 100 02/24/20 12:00 65 02/24/20 12:00 97.8 88 22 142/64 (90) 100 02/24/20 11:13 121 22 100 Mechanical Ventilator 65 118 22 65 02/24/20 11:00 91 20 161/74 (103) 100 02/24/20 10:30 86 22 132/69 (90) 100 Intake and Output 02/24/20 02/25/20 19:00 07:00 Intake Total 1508 ml 1474.155 ml Output Total 875 ml 600 ml Balance 633 ml 874.155 ml Free Water 30 ml 60 ml IV Total 1058 ml 994.155 ml Tube Feeding 420 ml 420 ml Output Urine Total 875 ml 600 ml # Bowel Movements 3 Laboratory Tests Test 02/25/20 00:04 02/25/20 05:25 02/25/20 05:27 02/25/20 08:44 POC Whole Blood Glucose Pending Pending Pending White Blood Count 18.4 K/UL (4.8-10.8) H Red Blood Count 2.43 M/UL (4.20-5.40) L Hemoglobin 7.4 G/DL (12.0-16.0) L Hematocrit 21.3 % (37.0-47.0) L Mean Corpuscular Volume 88 FL (80-99) Mean Corpuscular Hemoglobin 30.5 PG (27.0-31.0) Mean Corpuscular Hemoglobin Concent 34.7 G/DL (32.0-36.0) Red Cell Distribution Width 18.1 % (11.6-14.8) H Platelet Count 497 K/UL (150-450) H Mean Platelet Volume 6.7 FL (6.5-10.1) Neutrophils (%) (Auto) % (45.0-75.0) Lymphocytes (%) (Auto) % (20.0-45.0) Monocytes (%) (Auto) % (1.0-10.0) Eosinophils (%) (Auto) % (0.0-3.0) Basophils (%) (Auto) % (0.0-2.0) Differential Total Cells Counted 100 Neutrophils % (Manual) 97 % (45-75) H Lymphocytes % (Manual) 2 % (20-45) L Monocytes % (Manual) 1 % (1-10) Eosinophils % (Manual) 0 % (0-3) Basophils % (Manual) 0 % (0-2) Band Neutrophils 0 % (0-8) Platelet Estimate Increased H Platelet Morphology Normal Polychromasia 1+ Anisocytosis 1+ Sodium Level 148 MMOL/L (136-145) H Potassium Level 3.3 MMOL/L (3.5-5.1) L Chloride Level 111 MMOL/L (98-107) H Carbon Dioxide Level 32 MMOL/L (21-32) Anion Gap 5 mmol/L (5-15) Blood Urea Nitrogen 38 mg/dL (7-18) H Creatinine 1.3 MG/DL (0.55-1.30) Estimat Glomerular Filtration Rate 50.7 mL/min (>60) Glucose Level 150 MG/DL (74-106) H Calcium Level 8.0 MG/DL (8.5-10.1) L Total Bilirubin 0.5 MG/DL (0.2-1.0) Direct Bilirubin 0.2 MG/DL (0.0-0.3) Aspartate Amino Transf (AST/SGOT) 55 U/L (15-37) H Alanine Aminotransferase (ALT/SGPT) 30 U/L (12-78) Alkaline Phosphatase 689 U/L (46-116) H Total Protein 6.8 G/DL (6.4-8.2) Albumin 1.8 G/DL (3.4-5.0) L Globulin 5.0 g/dL Albumin/Globulin Ratio 0.4 (1.0-2.7) L Height (Feet): 5 Height (Inches): 1.00 Weight (Pounds): 168 Medications Current Medications Medications (Trade) Dose Ordered Sig/Ivana Route PRN Reason Start Time Stop Time Status Last Admin Dose Admin Acetaminophen (Tylenol) 650 mg Q6H PRN ORAL Temp >100.5 01/28/20 22:45 03/04/20 22:44 02/24/20 06:06 Acetaminophen (Tylenol) 650 mg Q6H PRN ORAL Mild Pain (Pain Scale 1-3) 02/22/20 16:15 03/23/20 16:14 Amlodipine Besylate (Norvasc) 10 mg DAILY ORAL 02/01/20 09:00 03/02/20 08:59 02/25/20 08:16 Aspirin (ASA) 81 mg DAILY ORAL 02/14/20 09:00 03/30/20 08:59 02/25/20 08:15 Chlorhexidine Gluconate (Divina-Hex 2%) 1 applic DAILY@2000 TOPIC 02/26/20 20:00 05/26/20 19:59 Clonidine HCl (Catapres Tab) 0.1 mg Q4H PRN ORAL SBP > 150mmHg 02/06/20 07:00 05/06/20 06:59 02/24/20 16:40 Dextrose (Dextrose 50%) 25 ml Q30M PRN IV Hypoglycemia 01/28/20 22:45 04/27/20 22:44 Dextrose (Dextrose 50%) 50 ml Q30M PRN IV Hypoglycemia 01/28/20 22:45 04/27/20 22:44 Enoxaparin Sodium (Lovenox) 80 mg Q12HR SUBQ 02/13/20 18:54 05/13/20 18:53 02/24/20 20:18 Epoetin Haseeb (Epoetin Haseeb-EPBX(NON ESRD)) 8,000 unit WED-WED-WED SUBQ 02/05/20 21:00 05/05/20 20:59 02/23/20 21:49 Fentanyl Citrate 250 ml @ 1 mls/hr Q24H PRN IV sedation 02/24/20 19:30 02/29/20 19:29 02/24/20 20:26 Guaifenesin/ Dextromethorphan (Robitussin DM Syrup) 15 ml Q4H PRN ORAL For Cough 02/12/20 16:53 05/12/20 16:52 02/19/20 22:21 Heparin Sodium/ Sodium Chloride (Heparin 1000 units/500ml Premix) 1,000 unit ONCE IV 02/25/20 09:30 02/26/20 23:59 Insulin Aspart (NovoLOG) Q6HR SUBQ 01/29/20 00:00 04/28/20 00:00 02/25/20 06:05 Insulin Detemir (Levemir) 10 units BID SUBQ 02/08/20 18:00 05/04/20 17:59 02/25/20 09:34 Ipratropium [place]ott (Atrovent Inh) 1 puffs Q4H INH 02/18/20 18:00 03/19/20 17:59 02/25/20 06:59 Isosorbide Mononitrate (Imdur) 30 mg DAILY ORAL 02/02/20 09:00 03/03/20 08:59 02/24/20 09:03 Lidocaine (Lidoderm 5% PATCH) 1 patch DAILY TDERMAL 02/11/20 09:30 05/11/20 09:29 02/25/20 08:17 Lidocaine HCl (Xylocaine 1% 30ml) 30 ml ONCE INJ 02/25/20 09:30 02/26/20 23:59 Lorazepam (Ativan 2mg/ml 1ml) 1 mg Q2H PRN IV Agitation 02/23/20 05:15 03/01/20 05:14 02/25/20 05:34 Lorazepam (Ativan) 1 mg Q4H PRN ORAL For Anxiety 02/21/20 22:15 03/04/20 22:14 02/22/20 21:21 Methocarbamol (Robaxin) 500 mg Q8H PRN ORAL muscle spasm 02/11/20 09:30 03/12/20 09:29 02/21/20 05:13 Methylprednisolone Sodium Succinate (Solu-MEDROL) 60 mg EVERY 12 HOURS IVP 02/23/20 21:00 05/23/20 20:59 02/25/20 08:14 Metoprolol Tartrate (Lopressor) 25 mg Q12HR ORAL 02/04/20 21:00 05/04/20 20:59 02/25/20 08:16 Morphine Sulfate (Morphine Sulfate) 2 mg Q2H PRN IVP For Pain 4-10 02/24/20 15:00 03/02/20 14:59 02/25/20 00:42 Multivitamins (Multivitamins) 1 tab DAILY NG 02/23/20 12:30 03/24/20 12:29 02/25/20 08:15 Nitroglycerin (Ntg) 0.4 mg Q5M PRN SL Prn Chest Pain 02/01/20 08:00 03/02/20 07:59 02/21/20 14:57 Ondansetron HCl (Zofran) 4 mg Q6H PRN IVP Nausea & Vomiting 01/28/20 22:45 02/27/20 22:44 02/01/20 18:10 Pantoprazole (Protonix) 40 mg EVERY 12 HOURS IVP 02/25/20 10:00 03/24/20 08:59 Remdesivir 100 mg/ Sodium Chloride 250 ml @ 250 mls/hr Q24H IV 02/23/20 18:00 02/27/20 18:59 02/24/20 17:05 Sodium Chloride 1,000 ml @ 75 mls/hr [id number] IV 02/24/20 16:00 03/25/20 15:59 02/25/20 06:00 Vancomycin HCl ([facility] pharmacy to dose) 1 ea DAILY PRN MISC Per rx protocol 02/13/20 11:30 03/14/20 11:29 Assessment/Plan Assessment/Plan: Hematology Consultation Note RFC: Anticoagulation, Anemia, Lung cancer DOS: 02/25/2020 TESFAYE HERNANDES: Jose M Feliz HISTORY OF PRESENT ILLNESS: The patient is an unfortunate 59-year-old woman who is in the ICU with chest pain and tachycardia and swallowing difficulties. The patient notes difficulty in eating, and she says, "I have to spit up phlegm." She complains of nausea and has emesis. However, she denies any reflux-type symptoms. She says she has never had endoscopy or colonoscopy. She has had poor oral intake. She is in isolation due to COVID and tuberculosis concerns. It appears that she is negative for both of these for now. She does have a lung mass and she is being seen by a fibreglass laminator for this. She has had some signs of pneumonia and COPD. PAST MEDICAL HISTORY: Hypertension, COPD, lung mass, type 2 diabetes mellitus, paroxysmal supraventricular tachycardia. ALLERGIES: None. FAMILY HISTORY: Noncontributory. SOCIAL HISTORY: The patient has had a history of smoking. REVIEW OF SYSTEMS: Otherwise negative. PHYSICAL EXAMINATION: GENERAL: An obese woman, seen in the ICU in her room. HEENT: Normocephalic and atraumatic. Sclerae are anicteric. NECK: Supple. ++vent CHEST: Exam revealed coarse breath sounds. CARDIOVASCULAR: Exam revealed a tachycardic heart rate. ABDOMEN: Soft, obese, and nontender. EXTREMITIES: Trace edema. LABORATORY DATA: Noted. The patient had a declining hemoglobin from 9 t 9.6, down to 7.4, and her white count was elevated in the 18 to 20 range. Platelet count was initially almost 81,000, but now it is normal. Chemistry showed a creatinine of 0.4. Imaging: noted ASSESSMENT/RECS #. 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 --> Currently, no evidence of malignancy. --> Continue to closely monitor and also for improvement. --> per Dr. Galeana after reviewing her clinical database, the patient may be a candidate for right video-assisted thoracoscopic surgery with a biopsy. However, the patient at the present time does not want to proceed with surgery. #. Anticoagulation with lovenox sq bid for covid 19++ --> We will obtain duplex of lower extremities. --> per Cardiology followup. #. COVID19++ and Asthma exacerbation. --> intubated # Anemia likely of chronic disease --> transfuse as needed --> on epo # Gastritis. # Constipation. # Cavitary pneumonia with MRSA # Staph aureus (MRSA) sepsis # diabetes mellitus # hypertension # COPD # renal failure # aortic stenosis # Hypercapnic/ hypoxic respiratory failure on vent P 1. Continue IV Vancomycin X 19 days 2. Continue Solumedrol 3. Continue Remdesivir , day 7 Appreciate consultation and Rodolfo Whitmore Rn, MD Feb 25, 2020 10:22
[2020-02-25] MEDS: LORazepam 1mg tab ORAL PRN ×2 (10:41→20:52)
[2020-02-25] MEDS: fentaNYL 2500mcg/NS 250ml 250 ML IV PRN (10:43)
--- NOTE | 2020-02-25 12:00 | General Progress Note ---
Subjective Date patient seen: Feb 25, 2020 Time patient seen: 11:30 - am ROS Limited/Unobtainable: Yes Allergies: Coded Allergies: No Known Allergies (Unverified , 07/30/15) Subjective HISTORY OF PRESENT ILLNESS: This is a 59-year-old female who is being seen on the ICU of [facility]. Patient is continues to be intubated on vent started on Fentanyl drip. No signs of pain or distress at this time. Objective Last 24 Hour Vital Signs Date Time Temp Pulse Resp B/P (MAP) Pulse Ox O2 Delivery O2 Flow Rate FiO2 02/25/20 11:38 130 29 98 Mechanical Ventilator 60 133 30 60 02/25/20 10:43 25 166/56 Mechanical Ventilator 02/25/20 10:41 66 25 163/69 02/25/20 08:16 61 147/51 02/25/20 08:16 61 147/51 02/25/20 07:00 66 22 147/54 (85) 99 02/25/20 07:00 85 22 98 Mechanical Ventilator 60 84 22 60 02/25/20 06:30 22 145/83 Mechanical Ventilator 60 02/25/20 06:04 69 22 139/70 100 02/25/20 06:00 94 22 139/68 (91) 100 02/25/20 05:34 128 36 167/110 100 02/25/20 05:30 22 139/70 Mechanical Ventilator 60 02/25/20 05:30 94 22 139/70 (93) 100 02/25/20 05:15 22 138/70 Mechanical Ventilator 60 02/25/20 05:15 102 167/82 (110) 02/25/20 05:00 22 167/82 Mechanical Ventilator 60 02/25/20 05:00 100 22 167/82 (110) 100 02/25/20 04:45 22 146/59 Mechanical Ventilator 60 02/25/20 04:00 99.0 69 22 139/64 (89) 97 02/25/20 04:00 60 02/25/20 03:45 22 138/64 Mechanical Ventilator 60 02/25/20 03:25 77 02/25/20 03:08 78 22 100 Mechanical Ventilator 60 80 22 60 02/25/20 03:00 77 21 144/66 (92) 98 02/25/20 02:45 22 144/66 Mechanical Ventilator 60 02/25/20 02:00 69 22 152/58 (89) 100 02/25/20 01:45 22 136/69 Mechanical Ventilator 60 02/25/20 01:45 83 22 136/69 (91) 99 02/25/20 01:30 22 135/47 Mechanical Ventilator 60 02/25/20 01:30 79 22 135/47 (76) 99 02/25/20 01:15 80 22 136/43 (74) 98 02/25/20 01:15 22 136/43 Mechanical Ventilator 60 02/25/20 01:00 83 22 131/42 (71) 98 02/25/20 01:00 22 131/42 Mechanical Ventilator 60 02/25/20 00:45 24 162/95 Mechanical Ventilator 60 02/25/20 00:45 105 24 162/95 (117) 98 02/25/20 00:44 100 02/25/20 00:30 99 22 164/68 (100) 98 02/25/20 00:30 22 164/68 Mechanical Ventilator 60 02/25/20 00:15 108 28 157/72 (100) 98 02/25/20 00:15 28 157/72 Mechanical Ventilator 60 02/25/20 00:00 98.9 115 23 158/72 (100) 98 02/25/20 00:00 23 158/77 Mechanical Ventilator 60 02/25/20 00:00 60 02/24/20 23:45 23 166/81 Mechanical Ventilator 60 02/24/20 23:45 124 24 166/81 (109) 98 02/24/20 23:30 116 23 178/102 (127) 97 02/24/20 23:30 24 178/102 Mechanical Ventilator 60 02/24/20 23:15 23 184/102 Mechanical Ventilator 60 02/24/20 23:15 104 26 98 Mechanical Ventilator 60 101 26 60 02/24/20 23:15 116 23 184/102 (129) 97 02/24/20 23:00 76 22 158/70 (99) 100 02/24/20 23:00 22 153/56 Mechanical Ventilator 60 02/24/20 23:00 60 02/24/20 22:41 22 158/70 Mechanical Ventilator 65 02/24/20 22:00 78 22 153/56 (88) 100 02/24/20 21:50 Mechanical Ventilator Mechanical Ventilator Mechanical Ventilator 02/24/20 21:42 78 22 157/64 (95) 99 02/24/20 21:41 22 157/64 Mechanical Ventilator 65 02/24/20 21:26 70 26 148/64 (92) 100 02/24/20 21:26 26 148/64 Mechanical Ventilator 65 02/24/20 21:11 20 148/64 Mechanical Ventilator 65 02/24/20 21:11 85 20 146/64 (91) 100 02/24/20 20:56 20 146/64 65 02/24/20 20:56 87 20 140/65 (90) 100 02/24/20 20:41 117 24 192/102 (132) 100 02/24/20 20:41 20 140/65 Mechanical Ventilator 65 02/24/20 20:26 26 147/89 Mechanical Ventilator 65 02/24/20 20:26 114 25 147/89 (108) 100 02/24/20 20:16 112 161/79 02/24/20 20:00 98.9 97 22 161/79 (106) 100 02/24/20 20:00 65 02/24/20 19:43 104 02/24/20 19:10 91 24 100 Mechanical Ventilator 65 90 24 65 02/24/20 19:00 80 21 143/77 (99) 100 02/24/20 18:00 85 22 141/69 (93) 100 02/24/20 17:30 102 19 143/70 (94) 100 02/24/20 17:11 102 25 162/82 99 02/24/20 17:00 118 29 162/82 (108) 99 02/24/20 16:41 121 25 159/71 98 02/24/20 16:40 159/71 02/24/20 16:00 99.5 120 29 159/71 (100) 99 02/24/20 16:00 121 02/24/20 16:00 Mechanical Ventilator 02/24/20 16:00 65 02/24/20 15:17 122 24 100 Mechanical Ventilator 65 120 24 65 02/24/20 15:00 115 26 167/107 (127) 98 02/24/20 14:00 98 21 161/75 (103) 100 02/24/20 13:00 87 22 155/65 (95) 100 02/24/20 12:53 84 22 155/65 100 02/24/20 12:23 110 22 142/64 100 02/24/20 12:00 Mechanical Ventilator 02/24/20 12:00 101 02/24/20 12:00 93 20 142/64 (90) 100 02/24/20 12:00 65 02/24/20 12:00 97.8 88 22 142/64 (90) 100 Intake and Output 02/24/20 02/25/20 19:00 07:00 Intake Total 1508 ml 1474.155 ml Output Total 875 ml 600 ml Balance 633 ml 874.155 ml Free Water 30 ml 60 ml IV Total 1058 ml 994.155 ml Tube Feeding 420 ml 420 ml Output Urine Total 875 ml 600 ml # Bowel Movements 3 Laboratory Tests 02/25/20 00:04: POC Whole Blood Glucose [Pending] 02/25/20 05:25: White Blood Count 18.4H, Red Blood Count 2.43L, Hemoglobin 7.4L, Hematocrit 21.3L, Mean Corpuscular Volume 88, Mean Corpuscular Hemoglobin 30.5, Mean Corpuscular Hemoglobin Concent 34.7, Red Cell Distribution Width 18.1H, Platelet Count 497H, Mean Platelet Volume 6.7, Neutrophils (%) (Auto) , Lymphocytes (%) (Auto) , Monocytes (%) (Auto) , Eosinophils (%) (Auto) , Basophils (%) (Auto) , Differential Total Cells Counted 100, Neutrophils % (Manual) 97H, Lymphocytes % (Manual) 2L, Monocytes % (Manual) 1, Eosinophils % (Manual) 0, Basophils % (Manual) 0, Band Neutrophils 0, Platelet Estimate IncreasedH, Platelet Morphology Normal, Polychromasia 1+, Anisocytosis 1+, Sodium Level 148H, Potassium Level 3.3L, Chloride Level 111H, Carbon Dioxide Level 32, Anion Gap 5, Blood Urea Nitrogen 38H, Creatinine 1.3, Estimat Glomerular Filtration Rate 50.7, Glucose Level 150H, Calcium Level 8.0L, Total Bilirubin 0.5, Direct Bilirubin 0.2, Aspartate Amino Transf (AST/SGOT) 55H, Alanine Aminotransferase (ALT/SGPT) 30, Alkaline Phosphatase 689H, Total Protein 6.8, Albumin 1.8L, Globulin 5.0, Albumin/Globulin Ratio 0.4L 02/25/20 05:27: POC Whole Blood Glucose [Pending] 02/25/20 08:44: POC Whole Blood Glucose [Pending] Height (Feet): 5 Height (Inches): 1.00 Weight (Pounds): 168 Objective PHYSICAL EXAMINATION: GENERAL: Intubated. LUNGS: Decreased breath sounds bilaterally. HEART: S1 and S2 tachy ABDOMEN: Obese. Assessment/Plan Assessment/Plan: (1) Cervical DDD (2) Cervical Spondylosis (3) Covid 19 + (4) S/p Code blue and intubation on vent Patient to have sedation as per Microbiology Instructor. D/w Dr. Landa and he concurred. Monster Corey Feb 25, 2020 12:00
--- NOTE | 2020-02-25 14:37 | General Progress Note ---
Subjective Allergies: Coded Allergies: No Known Allergies (Unverified , 07/30/15) Subjective Above noted moves to stimulation discussed with RN multiple dark BM yesterday H&H lower on ASA, Lovenox, steroids tolerating TF Objective Last 24 Hour Vital Signs Date Time Temp Pulse Resp B/P (MAP) Pulse Ox O2 Delivery O2 Flow Rate FiO2 02/25/20 12:25 161/114 02/25/20 12:24 135 30 161/114 02/25/20 11:38 130 29 98 Mechanical Ventilator 60 133 30 60 02/25/20 10:43 25 166/56 Mechanical Ventilator 02/25/20 10:41 66 25 163/69 02/25/20 08:16 61 147/51 02/25/20 08:16 61 147/51 02/25/20 07:00 66 22 147/54 (85) 99 02/25/20 07:00 85 22 98 Mechanical Ventilator 60 84 22 60 02/25/20 06:30 22 145/83 Mechanical Ventilator 60 02/25/20 06:04 69 22 139/70 100 02/25/20 06:00 94 22 139/68 (91) 100 02/25/20 05:34 128 36 167/110 100 02/25/20 05:30 22 139/70 Mechanical Ventilator 60 02/25/20 05:30 94 22 139/70 (93) 100 02/25/20 05:15 22 138/70 Mechanical Ventilator 60 02/25/20 05:15 102 167/82 (110) 02/25/20 05:00 22 167/82 Mechanical Ventilator 60 02/25/20 05:00 100 22 167/82 (110) 100 02/25/20 04:45 22 146/59 Mechanical Ventilator 60 02/25/20 04:00 99.0 69 22 139/64 (89) 97 02/25/20 04:00 60 02/25/20 03:45 22 138/64 Mechanical Ventilator 60 02/25/20 03:25 77 02/25/20 03:08 78 22 100 Mechanical Ventilator 60 80 22 60 02/25/20 03:00 77 21 144/66 (92) 98 02/25/20 02:45 22 144/66 Mechanical Ventilator 60 02/25/20 02:00 69 22 152/58 (89) 100 02/25/20 01:45 22 136/69 Mechanical Ventilator 60 02/25/20 01:45 83 22 136/69 (91) 99 02/25/20 01:30 22 135/47 Mechanical Ventilator 60 02/25/20 01:30 79 22 135/47 (76) 99 02/25/20 01:15 80 22 136/43 (74) 98 02/25/20 01:15 22 136/43 Mechanical Ventilator 60 02/25/20 01:00 83 22 131/42 (71) 98 02/25/20 01:00 22 131/42 Mechanical Ventilator 60 02/25/20 00:45 24 162/95 Mechanical Ventilator 60 02/25/20 00:45 105 24 162/95 (117) 98 02/25/20 00:44 100 02/25/20 00:30 99 22 164/68 (100) 98 02/25/20 00:30 22 164/68 Mechanical Ventilator 60 02/25/20 00:15 108 28 157/72 (100) 98 02/25/20 00:15 28 157/72 Mechanical Ventilator 60 02/25/20 00:00 98.9 115 23 158/72 (100) 98 02/25/20 00:00 23 158/77 Mechanical Ventilator 60 02/25/20 00:00 60 02/24/20 23:45 23 166/81 Mechanical Ventilator 60 02/24/20 23:45 124 24 166/81 (109) 98 02/24/20 23:30 116 23 178/102 (127) 97 02/24/20 23:30 24 178/102 Mechanical Ventilator 60 02/24/20 23:15 23 184/102 Mechanical Ventilator 60 02/24/20 23:15 104 26 98 Mechanical Ventilator 60 101 26 60 02/24/20 23:15 116 23 184/102 (129) 97 02/24/20 23:00 76 22 158/70 (99) 100 02/24/20 23:00 22 153/56 Mechanical Ventilator 60 02/24/20 23:00 60 02/24/20 22:41 22 158/70 Mechanical Ventilator 65 02/24/20 22:00 78 22 153/56 (88) 100 02/24/20 21:50 Mechanical Ventilator Mechanical Ventilator Mechanical Ventilator 02/24/20 21:42 78 22 157/64 (95) 99 02/24/20 21:41 22 157/64 Mechanical Ventilator 65 02/24/20 21:26 70 26 148/64 (92) 100 02/24/20 21:26 26 148/64 Mechanical Ventilator 65 02/24/20 21:11 20 148/64 Mechanical Ventilator 65 02/24/20 21:11 85 20 146/64 (91) 100 02/24/20 20:56 20 146/64 65 02/24/20 20:56 87 20 140/65 (90) 100 02/24/20 20:41 117 24 192/102 (132) 100 02/24/20 20:41 20 140/65 Mechanical Ventilator 65 02/24/20 20:26 26 147/89 Mechanical Ventilator 65 02/24/20 20:26 114 25 147/89 (108) 100 02/24/20 20:16 112 161/79 02/24/20 20:00 98.9 97 22 161/79 (106) 100 02/24/20 20:00 65 02/24/20 19:43 104 02/24/20 19:10 91 24 100 Mechanical Ventilator 65 90 24 65 02/24/20 19:00 80 21 143/77 (99) 100 02/24/20 18:00 85 22 141/69 (93) 100 02/24/20 17:30 102 19 143/70 (94) 100 02/24/20 17:11 102 25 162/82 99 02/24/20 17:00 118 29 162/82 (108) 99 02/24/20 16:41 121 25 159/71 98 02/24/20 16:40 159/71 02/24/20 16:00 99.5 120 29 159/71 (100) 99 02/24/20 16:00 121 02/24/20 16:00 Mechanical Ventilator 02/24/20 16:00 65 02/24/20 15:17 122 24 100 Mechanical Ventilator 65 120 24 65 02/24/20 15:00 115 26 167/107 (127) 98 Intake and Output 02/24/20 02/25/20 19:00 07:00 Intake Total 1508 ml 1474.155 ml Output Total 875 ml 600 ml Balance 633 ml 874.155 ml Free Water 30 ml 60 ml IV Total 1058 ml 994.155 ml Tube Feeding 420 ml 420 ml Output Urine Total 875 ml 600 ml # Bowel Movements 3 Laboratory Tests 02/25/20 00:04: POC Whole Blood Glucose [Pending] 02/25/20 05:25: White Blood Count 18.4H, Red Blood Count 2.43L, Hemoglobin 7.4L, Hematocrit 21.3L, Mean Corpuscular Volume 88, Mean Corpuscular Hemoglobin 30.5, Mean Corpuscular Hemoglobin Concent 34.7, Red Cell Distribution Width 18.1H, Platelet Count 497H, Mean Platelet Volume 6.7, Neutrophils (%) (Auto) , Lymphocytes (%) (Auto) , Monocytes (%) (Auto) , Eosinophils (%) (Auto) , Basophils (%) (Auto) , Differential Total Cells Counted 100, Neutrophils % (Manual) 97H, Lymphocytes % (Manual) 2L, Monocytes % (Manual) 1, Eosinophils % (Manual) 0, Basophils % (Manual) 0, Band Neutrophils 0, Platelet Estimate IncreasedH, Platelet Morpholog y Normal, Polychromasia 1+, Anisocytosis 1+, Sodium Level 148H, Potassium Level 3.3L, Chloride Level 111H, Carbon Dioxide Level 32, Anion Gap 5, Blood Urea Nitrogen 38H, Creatinine 1.3, Estimat Glomerular Filtration Rate 50.7, Glucose Level 150H, Calcium Level 8.0L, Total Bilirubin 0.5, Direct Bilirubin 0.2, Aspartate Amino Transf (AST/SGOT) 55H, Alanine Aminotransferase (ALT/SGPT) 30, Alkaline Phosphatase 689H, Total Protein 6.8, Albumin 1.8L, Globulin 5.0, Albumin/Globulin Ratio 0.4L 02/25/20 05:27: POC Whole Blood Glucose [Pending] 02/25/20 08:44: POC Whole Blood Glucose [Pending] Height (Feet): 5 Height (Inches): 1.00 Weight (Pounds): 168 Objective Patient seen in ICU On vent restless, agitated NCAT supple Chest coarse BS RR abd soft trace edema Assessment/Plan Assessment/Plan: Assessment - Dark stool and declining H&H concerning for GIB - COVID pneumonitis, on Lovenox and Steroids - Acute NV - on ASA - Resp failure - malnutrition, declining albumin - fatty liver - hepatitis C with nodular liver, PCR (+) - abnormal LFT - due to COVD, fatty liver, and HCV - HTN - COPD - Lung mass - DM - PSV Recommendations - Continue TF - BID CBC - may need transfusion soon - will discuss with family - will discuss with pulmonary and Heme re anticoagulation - follow LFT - PPI --> now BID - Elevate HOB - outpatient HCV eradication - Outpatient colonoscopy once recovered from current illness Feliberto Pérez MD Feb 25, 2020 14:37
--- NOTE | 2020-02-25 14:49 | NUR ---
NURSE NOTES: CALLED MD. PA. REGARDING LOVENOX,80MG Q12HR. PER MD IQBAL, PT MAY HAVE GI BLEED, RECOMMEND HOLDING ANTICOAGULANTS. AWAITING CALL BACK.
--- NOTE | 2020-02-25 14:52 | NUR ---
NURSE NOTES: MD. DE HERE TO SEE PT. PT UNABLE TO MAINTAIN IV ACCESS. UNABLE PLACE ACCESS WILL F/U ORDER FOR PICC TOMORROW. GIVE IM AND PO.
--- NOTE | 2020-02-25 15:16 | NUR ---
NURSE NOTES: CALLED MD. QUEVEDO, REGARDING ANTICOAGULANTS AND MD. LANE ORDER FOR HOLDING THEM. . HAS PLACED ORDER FOR TYPE AND CROSS. FAMILY CONTACT NUMBER WAS GIVEN ROSY MONTES. WAS UPDATED ON IV ACCESS, WILL GIVE TRANSFUSION TOMORROW IF NEEDED, POST PICC PLACEMENT.
[2020-02-25 15:57] LABS: HEMATOCRIT 21.6 % (37.0-47.0); MEAN CORPUSCULAR VOLUME 91 FL (80-99); PLATELET COUNT 464 K/UL (150-450); RED BLOOD COUNT 2.39 M/UL (4.20-5.40); WHITE BLOOD COUNT 19.5 K/UL (4.8-10.8)
[2020-02-25 15:59] LABS: HEMOGLOBIN 6.8 G/DL (12.0-16.0)
--- NOTE | 2020-02-25 16:03 | Pulmonolgy Critical Care Note ---
Critical Care - Asmt/Plan Assessment/Plan: Pulmonary CCM Progress Note Assessment/Plan Assessment/Plan IMPRESSION acute respiratory failure on ventilator COVID19 MRSA Pneumonia/sepsis leukocytosis sepsis ARF toxic met encephalopathy COPD DM poor control cavitary lesion negative AFB groundglass infiltrates NSTEMI severe PCM hypertension left shoulder pain hematuria anemia diabetes s/p respiratory code previously worsening anemia, possible GI bleed -GI following,on Protonix BID, Lovenox dc TFN PRN PLAN DVT prophylaxis- Lovenox held antibiotics per ID titrate BP meds vent support monitor acid base NGT kayexalate feeds maintain support monitor LOC critical impression, plan, and exam edited and reviewed in detail care discussed with windows server specialist - Subjective Interval Events: remains on vent ROS Limited/Unobtainable: Yes Condition: critical EKG Rhythm: Sinus Tachycardia Critical Care - Objective ET-Tube: 7.5 ET Position: 25 Vital Signs noted Laboratory Tests noted Objective: deferred due to COVID Critical Care - Objective Last 24 Hour Vital Signs Date Time Temp Pulse Resp B/P (MAP) Pulse Ox O2 Delivery O2 Flow Rate FiO2 02/25/20 14:50 88 22 100 Mechanical Ventilator 60 89 22 60 02/25/20 14:30 107 168/82 (110) 100 02/25/20 14:00 112 167/121 (136) 100 02/25/20 13:30 82 22 138/64 (88) 100 02/25/20 13:00 87 0 135/64 (87) 98 02/25/20 12:30 130 24 133/100 (111) 99 02/25/20 12:25 161/114 02/25/20 12:24 135 30 161/114 02/25/20 12:16 135 27 192/72 (112) 100 02/25/20 12:09 134 27 176/114 (134) 84 02/25/20 12:00 100.4 141 30 180/91 (120) 99 02/25/20 12:00 60 02/25/20 11:38 130 29 98 Mechanical Ventilator 60 133 30 60 02/25/20 11:30 136 26 197/101 (133) 02/25/20 11:00 131 26 187/108 (134) 02/25/20 10:43 25 166/56 Mechanical Ventilator 02/25/20 10:41 66 25 163/69 02/25/20 10:30 68 0 163/69 (100) 02/25/20 10:00 80 0 160/64 (96) 02/25/20 09:30 84 22 148/58 (88) 02/25/20 09:00 128 18 183/93 (123) 02/25/20 08:30 121 23 161/106 (124) 02/25/20 08:16 61 147/51 02/25/20 08:16 61 147/51 02/25/20 08:00 98.9 62 0 149/57 (87) 100 02/25/20 08:00 60 02/25/20 07:00 66 22 147/54 (85) 99 02/25/20 07:00 85 22 98 Mechanical Ventilator 60 84 22 60 02/25/20 06:30 22 145/83 Mechanical Ventilator 60 02/25/20 06:04 69 22 139/70 100 02/25/20 06:00 94 22 139/68 (91) 100 02/25/20 05:34 128 36 167/110 100 02/25/20 05:30 22 139/70 Mechanical Ventilator 60 02/25/20 05:30 94 22 139/70 (93) 100 02/25/20 05:15 22 138/70 Mechanical Ventilator 60 02/25/20 05:15 102 167/82 (110) 02/25/20 05:00 22 167/82 Mechanical Ventilator 60 02/25/20 05:00 100 22 167/82 (110) 100 02/25/20 04:45 22 146/59 Mechanical Ventilator 60 02/25/20 04:00 99.0 69 22 139/64 (89) 97 02/25/20 04:00 60 02/25/20 03:45 22 138/64 Mechanical Ventilator 60 02/25/20 03:25 77 02/25/20 03:08 78 22 100 Mechanical Ventilator 60 80 22 60 02/25/20 03:00 77 21 144/66 (92) 98 02/25/20 02:45 22 144/66 Mechanical Ventilator 60 02/25/20 02:00 69 22 152/58 (89) 100 02/25/20 01:45 22 136/69 Mechanical Ventilator 60 02/25/20 01:45 83 22 136/69 (91) 99 02/25/20 01:30 22 135/47 Mechanical Ventilator 60 02/25/20 01:30 79 22 135/47 (76) 99 02/25/20 01:15 80 22 136/43 (74) 98 02/25/20 01:15 22 136/43 Mechanical Ventilator 60 02/25/20 01:00 83 22 131/42 (71) 98 02/25/20 01:00 22 131/42 Mechanical Ventilator 60 02/25/20 00:45 24 162/95 Mechanical Ventilator 60 02/25/20 00:45 105 24 162/95 (117) 98 02/25/20 00:44 100 02/25/20 00:30 99 22 164/68 (100) 98 02/25/20 00:30 22 164/68 Mechanical Ventilator 60 02/25/20 00:15 108 28 157/72 (100) 98 02/25/20 00:15 28 157/72 Mechanical Ventilator 60 02/25/20 00:00 98.9 115 23 158/72 (100) 98 02/25/20 00:00 23 158/77 Mechanical Ventilator 60 02/25/20 00:00 60 02/24/20 23:45 23 166/81 Mechanical Ventilator 60 02/24/20 23:45 124 24 166/81 (109) 98 02/24/20 23:30 116 23 178/102 (127) 97 02/24/20 23:30 24 178/102 Mechanical Ventilator 60 02/24/20 23:15 23 184/102 Mechanical Ventilator 60 02/24/20 23:15 104 26 98 Mechanical Ventilator 60 101 26 60 02/24/20 23:15 116 23 184/102 (129) 97 02/24/20 23:00 76 22 158/70 (99) 100 02/24/20 23:00 22 153/56 Mechanical Ventilator 60 02/24/20 23:00 60 02/24/20 22:41 22 158/70 Mechanical Ventilator 65 02/24/20 22:00 78 22 153/56 (88) 100 02/24/20 21:50 Mechanical Ventilator Mechanical Ventilator Mechanical Ventilator 02/24/20 21:42 78 22 157/64 (95) 99 02/24/20 21:41 22 157/64 Mechanical Ventilator 65 02/24/20 21:26 70 26 148/64 (92) 100 02/24/20 21:26 26 148/64 Mechanical Ventilator 65 02/24/20 21:11 20 148/64 Mechanical Ventilator 65 02/24/20 21:11 85 20 146/64 (91) 100 02/24/20 20:56 20 146/64 65 02/24/20 20:56 87 20 140/65 (90) 100 02/24/20 20:41 117 24 192/102 (132) 100 02/24/20 20:41 20 140/65 Mechanical Ventilator 65 02/24/20 20:26 26 147/89 Mechanical Ventilator 65 02/24/20 20:26 114 25 147/89 (108) 100 02/24/20 20:16 112 161/79 02/24/20 20:00 98.9 97 22 161/79 (106) 100 02/24/20 20:00 65 02/24/20 19:43 104 02/24/20 19:10 91 24 100 Mechanical Ventilator 65 90 24 65 02/24/20 19:00 80 21 143/77 (99) 100 02/24/20 18:00 85 22 141/69 (93) 100 02/24/20 17:30 102 19 143/70 (94) 100 02/24/20 17:11 102 25 162/82 99 02/24/20 17:00 118 29 162/82 (108) 99 02/24/20 16:41 121 25 159/71 98 02/24/20 16:40 159/71 Accucheck: 244 Critical Care - Subjective ROS Limited/Unobtainable: Yes Condition: critical FI02: 60 Vent Support Breath Rate: 22 Vent Support Mode: AC Vent Tidal Volume: 550 Sputum Amount: Small PEEP: 8.0 PIP: 55 Tube Feeding Amount: 0 I&O: Intake and Output 02/24/20 02/25/20 19:00 07:00 Intake Total 1508 ml 1474.155 ml Output Total 875 ml 600 ml Balance 633 ml 874.155 ml Free Water 30 ml 60 ml IV Total 1058 ml 994.155 ml Tube Feeding 420 ml 420 ml Output Urine Total 875 ml 600 ml # Bowel Movements 3 ET-Tube: 7.5 ET Position: 25 Evans Zhang MD Feb 25, 2020 16:03
[2020-02-25 16:11] LABS: INR 1.2 (0.9-1.1)
[2020-02-25] MEDS: Maintenance Dose:Remdesivir 100mg/NS 230ml x 4 Doses IV SCH ×2 (19:05)
--- NOTE | 2020-02-25 19:19 | NUR ---
RESPIRATORY NOTE: Received pt on AC VC 22, 550VT, 60%, PEEP +8. Pt intubated w/ ETT 7.5 @ 25cm lipline, secured by anchorfast. Pt is sedated/arousable. B/S deirdre. diminished, sxn small amounts of thick, white to pale-yellow secretions. Bite block in place as pt tends to bite down ETT. Vent plugged into red outlet, ambubag at bedside. Pt in no apparent distress at this time. Will continue to monitor pt.
--- NOTE | 2020-02-25 19:45 | NUR ---
NURSE NOTES: received report from janna george pt orally intubated -vent pt sedated with fent drip at 200 on rass -2 vs stable tolerating tube feeding no residual urinary output 30cc/hr on deirdre soft wrest restraint nan complaint reposition and suction
[2020-02-25] MEDS ORDERED: Vancomycin 1gm in D5W 275ml IVPB ONE (21:00)
--- NOTE | 2020-02-25 21:20 | NUR ---
NURSE HAND-OFF REPORT: Latest Vital Signs: Temperature 100.5 , Pulse 123 , B/P 130 /64 , Respiratory Rate 20 , O2 SAT 100 , Mechanical Ventilator, O2 Flow Rate . Vital Sign Comment: EKG Rhythm: Sinus Rhythm Rhythm change?: N Notified?: Y -dr. navarro HERNANDES Response: Latest Pineda Fall Score: 50 Fall Risk: High Risk Safety Measures: Call light Within Reach, Bed Alarm Zone 1, Side Rails Side Rails x3, Bed position Low and Locked. Fall Precautions: Door Sign Report given to .ARRON Joyce ON TRANSFUSION
[2020-02-25] MEDS: fentaNYL 2500mcg/NS 250ml 250 ML IV SCH (21:45)
--- NOTE | 2020-02-25 22:00 | NUR ---
NURSE NOTES: reposition and suction restless and adgitated with ativan with relief
[2020-02-26] VITALS (51 sets, daily range): BP systolic 129–201; BP diastolic 41–134
[2020-02-26] MEDS: LORazepam Inj 2mg/ml 1ml IV PRN ×4 (00:15→14:37)
--- NOTE | 2020-02-26 02:00 | NUR ---
NURSE NOTES: reposition and suction
[2020-02-26] MEDS: Ipratropium Bromide Inhaler INH SCH ×6 (03:24→23:00)
--- NOTE | 2020-02-26 04:00 | NUR ---
NURSE NOTES: NURSE NOTES: restless and adgitated medicated with relief
[2020-02-26 05:31] LABS: HEMATOCRIT 23.2 % (37.0-47.0); HEMOGLOBIN 7.2 G/DL (12.0-16.0); MEAN CORPUSCULAR VOLUME 90 FL (80-99); PLATELET COUNT 491 K/UL (150-450); RED BLOOD COUNT 2.58 M/UL (4.20-5.40); RED CELL DISTRIBUTION WIDTH 17.7 % (11.6-14.8); WHITE BLOOD COUNT 18.2 K/UL (4.8-10.8)
[2020-02-26 05:56] LABS: ALBUMIN 1.9 G/DL (3.4-5.0); ALBUMIN/GLOBULIN RATIO 0.4 (1.0-2.7); BILIRUBIN,DIRECT 0.4 MG/DL (0.0-0.3); BILIRUBIN,TOTAL 0.6 MG/DL (0.2-1.0); CALCIUM 7.8 MG/DL (8.5-10.1); CREATININE 1.4 MG/DL (0.55-1.30); POTASSIUM 3.7 MMOL/L (3.5-5.1)
[2020-02-26] MEDS: NovoLOG Insulin Flexpen SUBQ SCH ×5 (06:00→23:58)
--- NOTE | 2020-02-26 06:00 | NUR ---
NURSE NOTES: bs 128 no coverags
[2020-02-26] MEDS: fentaNYL 2500mcg/NS 250ml 250 ML IV SCH ×2 (06:45→18:14)
--- NOTE | 2020-02-26 07:12 | Hematology/Onc Progress Note ---
Assessment/Plan Assessment/Plan ASSESSMENT/RECS #. 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 --> Currently, no evidence of malignancy. --> Continue to closely monitor and also for improvement. --> per Dr. Galeana after reviewing her clinical database, the patient may be a candidate for right video-assisted thoracoscopic surgery with a biopsy. However, the patient at the present time does not want to proceed with surgery. #. Leukocytosis with COVID19++ and Asthma exacerbation. --> intubated --> wbc 18 --> on methylprednisone/remdimsivir # Anemia likely of chronic disease --> transfuse as needed --> on epo --> hgb 8.2 # Gastritis. # Constipation. # Cavitary pneumonia with MRSA # Staph aureus (MRSA) sepsis # diabetes mellitus # hypertension # COPD # renal failure # aortic stenosis # Hypercapnic/ hypoxic respiratory failure on vent # Dvt ppx lovenox sq bid given covid 19 Appreciate consultation and dw Rn Subjective HEENT: Denies: no symptoms, eye pain, blurred vision, tearing, double vision, ear pain, ear discharge, nose pain, nose congestion, throat pain, throat swellin g, mouth pain, mouth swelling, other Cardiovascular: Denies: no symptoms, chest pain, edema, irregular heart rate, lightheadedness, palpitations, syncope, other Allergies: Coded Allergies: No Known Allergies (Unverified , 07/30/15) All Systems: reviewed and negative except above Subjective 02/25 agitated, restless, on mech vent, labs noted, hgb better Objective Objective Current Medications Medications (Trade) Dose Ordered Sig/Ivana Route PRN Reason Start Time Stop Time Status Last Admin Dose Admin Acetaminophen (Tylenol) 650 mg Q6H PRN ORAL Temp >100.5 01/28/20 22:45 03/04/20 22:44 02/24/20 06:06 Acetaminophen (Tylenol) 650 mg Q6H PRN ORAL Mild Pain (Pain Scale 1-3) 02/22/20 16:15 03/23/20 16:14 02/25/20 20:53 Amlodipine Besylate (Norvasc) 10 mg DAILY ORAL 02/01/20 09:00 03/02/20 08:59 02/25/20 08:16 Aspirin (ASA) 81 mg DAILY ORAL 02/14/20 09:00 03/30/20 08:59 02/25/20 08:15 Chlorhexidine Gluconate (Divina-Hex 2%) 1 applic DAILY@2000 TOPIC 02/26/20 20:00 05/26/20 19:59 Clonidine HCl (Catapres Tab) 0.1 mg Q4H PRN ORAL SBP > 150mmHg 02/06/20 07:00 05/06/20 06:59 02/25/20 12:25 Dextrose (Dextrose 50%) 25 ml Q30M PRN IV Hypoglycemia 01/28/20 22:45 04/27/20 22:44 Dextrose (Dextrose 50%) 50 ml Q30M PRN IV Hypoglycemia 01/28/20 22:45 04/27/20 22:44 Enoxaparin Sodium (Lovenox) 80 mg Q12HR SUBQ 02/13/20 18:54 05/13/20 18:53 02/24/20 20:18 Epoetin Haseeb (Epoetin Haseeb-EPBX(NON ESRD)) 8,000 unit WED-WED-WED SUBQ 02/05/20 21:00 05/05/20 20:59 02/23/20 21:49 Fentanyl Citrate 250 ml @ 1 mls/hr Q24H IV 02/25/20 21:45 02/27/20 21:44 02/26/20 06:45 Guaifenesin/ Dextromethorphan (Robitussin DM Syrup) 15 ml Q4H PRN ORAL For Cough 02/12/20 16:53 05/12/20 16:52 02/19/20 22:21 Heparin Sodium/ Sodium Chloride (Heparin 1000 units/500ml Premix) 1,000 unit ONCE IV 02/25/20 09:30 02/26/20 23:59 Insulin Aspart (NovoLOG) Q6HR SUBQ 01/29/20 00:00 04/28/20 00:00 02/26/20 00:00 Insulin Detemir (Levemir) 10 units BID SUBQ 02/08/20 18:00 05/04/20 17:59 02/25/20 18:00 Ipratropium [place] (Atrovent Inh) 1 puffs Q4H INH 02/18/20 18:00 03/19/20 17:59 02/26/20 03:24 Isosorbide Mononitrate (Imdur) 30 mg DAILY ORAL 02/02/20 09:00 03/03/20 08:59 02/24/20 09:03 Lidocaine (Lidoderm 5% PATCH) 1 patch DAILY TDERMAL 02/11/20 09:30 05/11/20 09:29 02/25/20 08:17 Lidocaine HCl (Xylocaine 1% 30ml) 30 ml ONCE INJ 02/25/20 09:30 02/26/20 23:59 Lorazepam (Ativan 2mg/ml 1ml) 1 mg Q2H PRN IV Agitation 02/23/20 05:15 03/01/20 05:14 02/26/20 04:37 Lorazepam (Ativan) 1 mg Q4H PRN ORAL For Anxiety 02/21/20 22:15 03/04/20 22:14 02/25/20 20:52 Methocarbamol (Robaxin) 500 mg Q8H PRN ORAL muscle spasm 02/11/20 09:30 03/12/20 09:29 02/21/20 05:13 Methylprednisolone Sodium Succinate (Solu-MEDROL) 60 mg EVERY 12 HOURS IVP 02/23/20 21:00 05/23/20 20:59 02/25/20 20:16 Metoprolol Tartrate (Lopressor) 25 mg Q12HR ORAL 02/04/20 21:00 05/04/20 20:59 02/25/20 20:17 Morphine Sulfate (Morphine Sulfate) 2 mg Q2H PRN IVP For Pain 4-10 02/24/20 15:00 03/02/20 14:59 02/25/20 12:24 Multivitamins (Multivitamins) 1 tab DAILY NG 02/23/20 12:30 03/24/20 12:29 02/25/20 08:15 Nitroglycerin (Ntg) 0.4 mg Q5M PRN SL Prn Chest Pain 02/01/20 08:00 03/02/20 07:59 02/21/20 14:57 Ondansetron HCl (Zofran) 4 mg Q6H PRN IVP Nausea & Vomiting 01/28/20 22:45 02/27/20 22:44 02/01/20 18:10 Pantoprazole (Protonix) 40 mg EVERY 12 HOURS IVP 02/25/20 10:00 03/24/20 08:59 02/25/20 20:15 Remdesivir 100 mg/ Sodium Chloride 250 ml @ 250 mls/hr Q24H IV 02/23/20 18:00 02/27/20 18:59 02/25/20 19:05 Sodium Chloride 1,000 ml @ 75 mls/hr [id number] IV 02/24/20 16:00 03/25/20 15:59 02/26/20 05:00 Vancomycin HCl (Vanco pharmacy to dose) 1 ea DAILY PRN MISC Per rx protocol 02/13/20 11:30 03/14/20 11:29 Last 24 Hour Vital Signs Date Time Temp Pulse Resp B/P (MAP) Pulse Ox O2 Delivery O2 Flow Rate FiO2 02/26/20 06:45 20 154/64 Mechanical Ventilator 60 02/26/20 06:15 20 154/84 Mechanical Ventilator 60 02/26/20 06:00 86 10 152/61 (91) 100 02/26/20 05:30 91 0 152/64 (93) 100 02/26/20 05:15 20 146/60 Mechanical Ventilator 100 02/26/20 05:07 84 20 144/65 96 02/26/20 05:00 103 22 148/69 (95) 98 02/26/20 04:37 125 28 158/125 98 02/26/20 04:15 16 154/65 Mechanical Ventilator 100 02/26/20 04:00 99.8 98 22 145/61 (89) 98 02/26/20 04:00 60 02/26/20 04:00 85 02/26/20 04:00 Mechanical Ventilator Mechanical Ventilator Mechanical Ventilator 02/26/20 03:25 116 22 99 Mechanical Ventilator 60 122 22 60 02/26/20 03:15 20 139/63 Mechanical Ventilator 60 02/26/20 03:00 116 20 143/47 (79) 99 02/26/20 02:30 88 17 151/42 (78) 100 02/26/20 02:15 22 136/63 Mechanical Ventilator 60 02/26/20 02:15 84 20 155/54 (87) 100 02/26/20 02:00 72 19 159/52 (87) 100 02/26/20 01:45 79 22 150/45 (80) 97 02/26/20 01:30 84 22 150/45 (80) 97 02/26/20 01:15 101 159/50 (86) 91 02/26/20 01:15 20 152/78 Mechanical Ventilator 60 02/26/20 01:00 86 159/41 (80) 96 02/26/20 01:00 86 159/41 (80) 96 02/26/20 01:00 86 159/41 (80) 96 02/26/20 00:48 87 172/56 (94) 95 02/26/20 00:48 87 172/56 (94) 95 02/26/20 00:45 90 154/64 (94) 96 02/26/20 00:45 90 96 02/26/20 00:45 78 20 160/86 96 02/26/20 00:30 107 179/65 (103) 95 02/26/20 00:30 107 179/65 (103) 95 02/26/20 00:18 130 201/72 (115) 02/26/20 00:18 130 201/72 (115) 02/26/20 00:18 130 201/72 (115) 02/26/20 00:15 138 201/72 (115) 02/26/20 00:15 20 172/56 Mechanical Ventilator 100 02/26/20 00:15 130 28 173/69 100 02/26/20 00:15 138 02/26/20 00:00 60 02/26/20 00:00 116 173/69 (103) 92 02/26/20 00:00 80 02/26/20 00:00 33 200/101 Mechanical Ventilator 100 02/26/20 00:00 Mechanical Ventilator Mechanical Ventilator Mechanical Ventilator 02/26/20 00:00 116 173/69 (103) 92 02/26/20 00:00 99.0 116 173/69 (103) 92 02/25/20 23:19 129 27 100 Mechanical Ventilator 60 126 26 60 02/25/20 23:00 99.0 62 135/64 (87) 100 02/25/20 23:00 20 134/65 Mechanical Ventilator 100 02/25/20 22:00 62 140/65 (90) 100 02/25/20 22:00 20 130/68 Mechanical Ventilator 100 02/25/20 21:45 16 136/64 Mechanical Ventilator 100 02/25/20 21:33 98.4 02/25/20 21:22 78 20 136/40 20 02/25/20 21:00 18 128/64 Mechanical Ventilator 100 02/25/20 21:00 20 130/64 100 02/25/20 21:00 98.4 62 135/64 (87) 100 02/25/20 20:52 123 23 140/51 02/25/20 20:17 60 153/64 02/25/20 20:00 62 135/64 (87) 100 02/25/20 20:00 60 02/25/20 20:00 18 130/65 Mechanical Ventilator 100 02/25/20 20:00 0 130/64 Mechanical Ventilator 100 02/25/20 20:00 72 02/25/20 20:00 Mechanical Ventilator Mechanical Ventilator Mechanical Ventilator 02/25/20 19:30 78 147/88 (107) 100 02/25/20 19:16 64 22 100 Mechanical Ventilator 60 78 22 60 02/25/20 19:00 80 141/73 (95) 100 02/25/20 18:43 22 149/84 Mechanical Ventilator 02/25/20 18:30 114 149/84 (105) 100 02/25/20 18:00 88 156/73 (100) 100 02/25/20 17:30 65 141/63 (89) 100 02/25/20 17:00 63 143/66 (91) 100 02/25/20 16:43 20 132/67 Mechanical Ventilator 02/25/20 16:30 60 144/59 (87) 100 02/25/20 16:00 100.5 61 132/67 (88) 100 02/25/20 16:00 60 02/25/20 16:00 68 02/25/20 15:43 20 132/67 Mechanical Ventilator 02/25/20 15:30 69 130/58 (82) 100 02/25/20 15:00 81 117/66 (83) 100 02/25/20 14:50 88 22 100 Mechanical Ventilator 60 89 22 60 02/25/20 14:30 107 168/82 (110) 100 02/25/20 14:00 112 167/121 (136) 100 02/25/20 13:30 82 22 138/64 (88) 100 02/25/20 13:00 87 0 135/64 (87) 98 02/25/20 12:43 22 135/64 Mechanical Ventilator 02/25/20 12:30 130 24 133/100 (111) 99 02/25/20 12:25 161/114 02/25/20 12:24 135 30 161/114 02/25/20 12:16 135 27 192/72 (112) 100 02/25/20 12:09 134 27 176/114 (134) 84 02/25/20 12:00 142 02/25/20 12:00 100.4 141 30 180/91 (120) 99 02/25/20 12:00 60 02/25/20 11:38 130 29 98 Mechanical Ventilator 60 133 30 60 02/25/20 11:30 136 26 197/101 (133) 02/25/20 11:00 131 26 187/108 (134) 02/25/20 10:43 25 166/56 Mechanical Ventilator 02/25/20 10:41 66 25 163/69 02/25/20 10:30 68 0 163/69 (100) 02/25/20 10:00 80 0 160/64 (96) 02/25/20 09:30 84 22 148/58 (88) 02/25/20 09:00 128 18 183/93 (123) 02/25/20 08:30 121 23 161/106 (124) 02/25/20 08:16 61 147/51 02/25/20 08:16 61 147/51 02/25/20 08:00 98.9 62 0 149/57 (87) 100 02/25/20 08:00 62 02/25/20 08:00 60 02/25/20 07:00 66 22 147/54 (85) 99 02/25/20 07:00 85 22 98 Mechanical Ventilator 60 84 22 60 02/25/20 06:30 22 145/83 Mechanical Ventilator 60 02/25/20 06:04 69 22 139/70 100 02/25/20 06:00 94 22 139/68 (91) 100 02/25/20 05:34 128 36 167/110 100 02/25/20 05:30 22 139/70 Mechanical Ventilator 60 02/25/20 05:30 94 22 139/70 (93) 100 02/25/20 05:15 22 138/70 Mechanical Ventilator 60 02/25/20 05:15 102 167/82 (110) 11/29/20 05:00 22 167/82 Mechanical Ventilator 60 02/25/20 05:00 100 22 167/82 (110) 100 02/25/20 04:45 22 146/59 Mechanical Ventilator 60 02/25/20 04:00 99.0 69 22 139/64 (89) 97 02/25/20 04:00 60 02/25/20 03:45 22 138/64 Mechanical Ventilator 60 02/25/20 03:25 77 02/25/20 03:08 78 22 100 Mechanical Ventilator 60 80 22 60 02/25/20 03:00 77 21 144/66 (92) 98 02/25/20 02:45 22 144/66 Mechanical Ventilator 60 02/25/20 02:00 69 22 152/58 (89) 100 02/25/20 01:45 22 136/69 Mechanical Ventilator 60 02/25/20 01:45 83 22 136/69 (91) 99 02/25/20 01:30 22 135/47 Mechanical Ventilator 60 02/25/20 01:30 79 22 135/47 (76) 99 02/25/20 01:15 80 22 136/43 (74) 98 02/25/20 01:15 22 136/43 Mechanical Ventilator 60 02/25/20 01:00 83 22 131/42 (71) 98 02/25/20 01:00 22 131/42 Mechanical Ventilator 60 02/25/20 00:45 24 162/95 Mechanical Ventilator 60 02/25/20 00:45 105 24 162/95 (117) 98 02/25/20 00:44 100 02/25/20 00:30 99 22 164/68 (100) 98 02/25/20 00:30 22 164/68 Mechanical Ventilator 60 02/25/20 00:15 108 28 157/72 (100) 98 02/25/20 00:15 28 157/72 Mechanical Ventilator 60 02/25/20 00:00 98.9 115 23 158/72 (100) 98 02/25/20 00:00 23 158/77 Mechanical Ventilator 60 02/25/20 00:00 60 02/24/20 23:45 23 166/81 Mechanical Ventilator 60 02/24/20 23:45 124 24 166/81 (109) 98 02/24/20 23:30 116 23 178/102 (127) 97 02/24/20 23:30 24 178/102 Mechanical Ventilator 60 02/24/20 23:15 23 184/102 Mechanical Ventilator 60 02/24/20 23:15 104 26 98 Mechanical Ventilator 60 101 26 60 02/24/20 23:15 116 23 184/102 (129) 97 02/24/20 23:00 76 22 158/70 (99) 100 02/24/20 23:00 22 153/56 Mechanical Ventilator 60 02/24/20 23:00 60 02/24/20 22:41 22 158/70 Mechanical Ventilator 65 02/24/20 22:00 78 22 153/56 (88) 100 02/24/20 21:50 Mechanical Ventilator Mechanical Ventilator Mechanical Ventilator 02/24/20 21:42 78 22 157/64 (95) 99 02/24/20 21:41 22 157/64 Mechanical Ventilator 65 02/24/20 21:26 70 26 148/64 (92) 100 02/24/20 21:26 26 148/64 Mechanical Ventilator 65 02/24/20 21:11 20 148/64 Mechanical Ventilator 65 02/24/20 21:11 85 20 146/64 (91) 100 02/24/20 20:56 20 146/64 65 02/24/20 20:56 87 20 140/65 (90) 100 02/24/20 20:41 117 24 192/102 (132) 100 02/24/20 20:41 20 140/65 Mechanical Ventilator 65 02/24/20 20:26 26 147/89 Mechanical Ventilator 65 02/24/20 20:26 114 25 147/89 (108) 100 02/24/20 20:16 112 161/79 02/24/20 20:00 98.9 97 22 161/79 (106) 100 02/24/20 20:00 65 02/24/20 19:43 104 02/24/20 19:10 91 24 100 Mechanical Ventilator 65 90 24 65 02/24/20 19:00 80 21 143/77 (99) 100 02/24/20 18:00 85 22 141/69 (93) 100 02/24/20 17:30 102 19 143/70 (94) 100 02/24/20 17:11 102 25 162/82 99 02/24/20 17:00 118 29 162/82 (108) 99 02/24/20 16:41 121 25 159/71 98 02/24/20 16:40 159/71 02/24/20 16:00 99.5 120 29 159/71 (100) 99 02/24/20 16:00 121 02/24/20 16:00 Mechanical Ventilator 02/24/20 16:00 65 02/24/20 15:17 122 24 100 Mechanical Ventilator 65 120 24 65 02/24/20 15:00 115 26 167/107 (127) 98 02/24/20 14:00 98 21 161/75 (103) 100 02/24/20 13:00 87 22 155/65 (95) 100 02/24/20 12:53 84 22 155/65 100 02/24/20 12:23 110 22 142/64 100 02/24/20 12:00 Mechanical Ventilator 02/24/20 12:00 101 02/24/20 12:00 93 20 142/64 (90) 100 02/24/20 12:00 65 02/24/20 12:00 97.8 88 22 142/64 (90) 100 02/24/20 11:13 121 22 100 Mechanical Ventilator 65 118 22 65 02/24/20 11:00 91 20 161/74 (103) 100 02/24/20 10:30 86 22 132/69 (90) 100 02/24/20 10:00 104 22 120/65 (83) 100 02/24/20 09:52 115 23 144/94 (111) 100 02/24/20 09:32 95 22 120/65 100 02/24/20 09:30 119 24 181/85 (117) 100 02/24/20 09:27 116 22 167/92 (117) 100 02/24/20 09:04 120 176/103 02/24/20 09:04 120 176/103 02/24/20 09:03 176/103 02/24/20 09:03 176/103 02/24/20 09:02 120 22 176/103 100 02/24/20 09:00 122 21 176/103 (127) 100 02/24/20 08:34 131 29 191/92 (125) 100 02/24/20 08:30 132 23 196/86 (122) 99 02/24/20 08:00 99.5 126 18 188/90 (122) 100 02/24/20 08:00 125 02/24/20 08:00 65 02/24/20 08:00 Mechanical Ventilator 02/24/20 07:25 113 24 100 Mechanical Ventilator 65 112 23 65 l Intake and Output 02/25/20 02/26/20 19:00 07:00 Intake Total 1238 ml 1927.208 ml Output Total 370 ml 460 ml Balance 868 ml 1467.208 ml Free Water 40 ml IV Total 993 ml 1002.208 ml Tube Feeding 245 ml 385 ml Blood Product 500 ml Output Urine Total 370 ml 460 ml Labs Test 02/23/20 08:01 02/23/20 09:40 02/23/20 13:24 02/23/20 17:11 Arterial Blood pH 7.477 (7.350-7.450) Arterial Blood Partial Pressure CO2 39.9 mmHg (35.0-45.0) Arterial Blood Partial Pressure O2 143.0 mmHg (75.0-100.0) Arterial Blood HCO3 28.8 mmol/L (22.0-26.0) Arterial Blood Oxygen Saturation 98.1 % (95-100) Arterial Blood Base Excess 4.9 (-2-2) Bryan Test Positive POC Whole Blood Glucose 259 MG/DL (74-106) 177 MG/DL (74-106) 169 MG/DL (74-106) Test 02/23/20 18:55 02/23/20 23:11 02/24/20 00:35 02/24/20 04:00 Vancomycin Level Trough 27.7 ug/mL (5.0-12.0) Sodium Level 148 MMOL/L (136-145) Potassium Level 3.3 MMOL/L (3.5-5.1) Chloride Level 111 MMOL/L (98-107) Carbon Dioxide Level 30 MMOL/L (21-32) Anion Gap 7 mmol/L (5-15) Blood Urea Nitrogen 40 mg/dL (7-18) Creatinine 1.3 MG/DL (0.55-1.30) Estimat Glomerular Filtration Rate 50.7 mL/min (>60) Glucose Level 142 MG/DL (74-106) Calcium Level 7.4 MG/DL (8.5-10.1) Arterial Blood pH 7.476 (7.350-7.450) Arterial Blood Partial Pressure CO2 39.9 mmHg (35.0-45.0) Arterial Blood Partial Pressure O2 71.6 mmHg (75.0-100.0) Arterial Blood HCO3 28.8 mmol/L (22.0-26.0) Arterial Blood Oxygen Saturation 94.5 % (95-100) Arterial Blood Base Excess 4.8 (-2-2) Bryan Test Positive Test 02/24/20 05:31 02/24/20 05:40 02/24/20 06:00 02/24/20 06:09 Random Vancomycin Level 23.5 ug/mL White Blood Count 17.3 K/UL (4.8-10.8) Red Blood Count 2.66 M/UL (4.20-5.40) Hemoglobin 7.6 G/DL (12.0-16.0) Hematocrit 23.4 % (37.0-47.0) Mean Corpuscular Volume 88 FL (80-99) Mean Corpuscular Hemoglobin 28.5 PG (27.0-31.0) Mean Corpuscular Hemoglobin Concent 32.4 G/DL (32.0-36.0) Red Cell Distribution Width 17.6 % (11.6-14.8) Platelet Count 561 K/UL (150-450) Mean Platelet Volume 6.2 FL (6.5-10.1) Neutrophils (%) (Auto) % (45.0-75.0) Lymphocytes (%) (Auto) % (20.0-45.0) Monocytes (%) (Auto) % (1.0-10.0) Eosinophils (%) (Auto) % (0.0-3.0) Basophils (%) (Auto) % (0.0-2.0) Differential Total Cells Counted 100 Neutrophils % (Manual) 94 % (45-75) Lymphocytes % (Manual) 2 % (20-45) Monocytes % (Manual) 4 % (1-10) Eosinophils % (Manual) 0 % (0-3) Basophils % (Manual) 0 % (0-2) Band Neutrophils 0 % (0-8) Platelet Estimate Increased Platelet Morphology Normal Polychromasia 1+ Anisocytosis 2+ Sodium Level 148 MMOL/L (136-145) Potassium Level 3.5 MMOL/L (3.5-5.1) Chloride Level 111 MMOL/L (98-107) Carbon Dioxide Level 30 MMOL/L (21-32) Anion Gap 7 mmol/L (5-15) Blood Urea Nitrogen 40 mg/dL (7-18) Creatinine 1.2 MG/DL (0.55-1.30) Estimat Glomerular Filtration Rate 55.6 mL/min (>60) Glucose Level 159 MG/DL (74-106) Calcium Level 7.9 MG/DL (8.5-10.1) Total Bilirubin 0.6 MG/DL (0.2-1.0) Direct Bilirubin 0.2 MG/DL (0.0-0.3) Aspartate Amino Transf (AST/SGOT) 107 U/L (15-37) Alanine Aminotransferase (ALT/SGPT) 47 U/L (12-78) Alkaline Phosphatase 808 U/L (46-116) Total Protein 6.9 G/DL (6.4-8.2) Albumin 1.8 G/DL (3.4-5.0) Globulin 5.1 g/dL Albumin/Globulin Ratio 0.4 (1.0-2.7) Test 02/25/20 00:04 02/25/20 05:25 02/25/20 05:27 02/25/20 08:44 White Blood Count 18.4 K/UL (4.8-10.8) Red Blood Count 2.43 M/UL (4.20-5.40) Hemoglobin 7.4 G/DL (12.0-16.0) Hematocrit 21.3 % (37.0-47.0) Mean Corpuscular Volume 88 FL (80-99) Mean Corpuscular Hemoglobin 30.5 PG (27.0-31.0) Mean Corpuscular Hemoglobin Concent 34.7 G/DL (32.0-36.0) Red Cell Distribution Width 18.1 % (11.6-14.8) Platelet Count 497 K/UL (150-450) Mean Platelet Volume 6.7 FL (6.5-10.1) Neutrophils (%) (Auto) % (45.0-75.0) Lymphocytes (%) (Auto) % (20.0-45.0) Monocytes (%) (Auto) % (1.0-10.0) Eosinophils (%) (Auto) % (0.0-3.0) Basophils (%) (Auto) % (0.0-2.0) Differential Total Cells Counted 100 Neutrophils % (Manual) 97 % (45-75) Lymphocytes % (Manual) 2 % (20-45) Monocytes % (Manual) 1 % (1-10) Eosinophils % (Manual) 0 % (0-3) Basophils % (Manual) 0 % (0-2) Band Neutrophils 0 % (0-8) Platelet Estimate Increased Platelet Morphology Normal Polychromasia 1+ Anisocytosis 1+ Sodium Level 148 MMOL/L (136-145) Potassium Level 3.3 MMOL/L (3.5-5.1) Chloride Level 111 MMOL/L (98-107) Carbon Dioxide Level 32 MMOL/L (21-32) Anion Gap 5 mmol/L (5-15) Blood Urea Nitrogen 38 mg/dL (7-18) Creatinine 1.3 MG/DL (0.55-1.30) Estimat Glomerular Filtration Rate 50.7 mL/min (>60) Glucose Level 150 MG/DL (74-106) Calcium Level 8.0 MG/DL (8.5-10.1) Total Bilirubin 0.5 MG/DL (0.2-1.0) Direct Bilirubin 0.2 MG/DL (0.0-0.3) Aspartate Amino Transf (AST/SGOT) 55 U/L (15-37) Alanine Aminotransferase (ALT/SGPT) 30 U/L (12-78) Alkaline Phosphatase 689 U/L (46-116) Total Protein 6.8 G/DL (6.4-8.2) Albumin 1.8 G/DL (3.4-5.0) Globulin 5.0 g/dL Albumin/Globulin Ratio 0.4 (1.0-2.7) Test 02/25/20 12:38 02/25/20 15:00 02/25/20 18:00 02/25/20 18:51 POC Whole Blood Glucose 244 MG/DL (74-106) 128 MG/DL (74-106) White Blood Count 19.5 K/UL (4.8-10.8) Red Blood Count 2.39 M/UL (4.20-5.40) Hemoglobin 6.8 G/DL (12.0-16.0) Hematocrit 21.6 % (37.0-47.0) Mean Corpuscular Volume 91 FL (80-99) Mean Corpuscular Hemoglobin 28.3 PG (27.0-31.0) Mean Corpuscular Hemoglobin Concent 31.3 G/DL (32.0-36.0) Red Cell Distribution Width 17.0 % (11.6-14.8) Platelet Count 464 K/UL (150-450) Mean Platelet Volume 5.9 FL (6.5-10.1) Neutrophils (%) (Auto) % (45.0-75.0) Lymphocytes (%) (Auto) % (20.0-45.0) Monocytes (%) (Auto) % (1.0-10.0) Eosinophils (%) (Auto) % (0.0-3.0) Basophils (%) (Auto) % (0.0-2.0) Differential Total Cells Counted 100 Neutrophils % (Manual) 96 % (45-75) Lymphocytes % (Manual) 1 % (20-45) Monocytes % (Manual) 3 % (1-10) Eosinophils % (Manual) 0 % (0-3) Basophils % (Manual) 0 % (0-2) Band Neutrophils 0 % (0-8) Platelet Estimate Adequate Platelet Morphology Normal Polychromasia 1+ Hypochromasia 2+ Anisocytosis 1+ Prothrombin Time 13.3 SEC (9.30-11.50) Prothromb Time International Ratio 1.2 (0.9-1.1) Random Vancomycin Level 10.1 ug/mL Test 02/26/20 05:15 White Blood Count 18.2 K/UL (4.8-10.8) Red Blood Count 2.58 M/UL (4.20-5.40) Hemoglobin 7.2 G/DL (12.0-16.0) Hematocrit 23.2 % (37.0-47.0) Mean Corpuscular Volume 90 FL (80-99) Mean Corpuscular Hemoglobin 27.9 PG (27.0-31.0) Mean Corpuscular Hemoglobin Concent 31.1 G/DL (32.0-36.0) Red Cell Distribution Width 17.7 % (11.6-14.8) Platelet Count 491 K/UL (150-450) Mean Platelet Volume 6.4 FL (6.5-10.1) Neutrophils (%) (Auto) % (45.0-75.0) Lymphocytes (%) (Auto) % (20.0-45.0) Monocytes (%) (Auto) % (1.0-10.0) Eosinophils (%) (Auto) % (0.0-3.0) Basophils (%) (Auto) % (0.0-2.0) Sodium Level 148 MMOL/L (136-145) Potassium Level 3.7 MMOL/L (3.5-5.1) Chloride Level 112 MMOL/L (98-107) Carbon Dioxide Level 29 MMOL/L (21-32) Anion Gap 7 mmol/L (5-15) Blood Urea Nitrogen 40 mg/dL (7-18) Creatinine 1.4 MG/DL (0.55-1.30) Estimat Glomerular Filtration Rate 46.5 mL/min (>60) Glucose Level 267 MG/DL (74-106) Calcium Level 7.8 MG/DL (8.5-10.1) Total Bilirubin 0.6 MG/DL (0.2-1.0) Direct Bilirubin 0.4 MG/DL (0.0-0.3) Aspartate Amino Transf (AST/SGOT) 60 U/L (15-37) Alanine Aminotransferase (ALT/SGPT) 29 U/L (12-78) Alkaline Phosphatase 676 U/L (46-116) Total Protein 6.6 G/DL (6.4-8.2) Albumin 1.9 G/DL (3.4-5.0) Globulin 4.7 g/dL Albumin/Globulin Ratio 0.4 (1.0-2.7) Height (Feet): 5 Height (Inches): 1.00 Weight (Pounds): 168 Objective PHYSICAL EXAMINATION: GENERAL: An obese woman, seen in the ICU in her room. HEENT: Normocephalic and atraumatic. Sclerae are anicteric. NECK: Supple. ++vent CHEST: Exam revealed coarse breath sounds. CARDIOVASCULAR: Exam revealed a tachycardic heart rate. ABDOMEN: Soft, obese, and nontender. EXTREMITIES: Trace edema. Rodolfo Ohara MD Feb 26, 2020 07:12
--- NOTE | 2020-02-26 07:32 | NUR ---
NURSE HAND-OFF REPORT: Latest Vital Signs: Temperature 99.8 , Pulse 85 , B/P 163 /71 , Respiratory Rate 12 , O2 SAT 100 , Mechanical Ventilator, O2 Flow Rate . Vital Sign Comment: EKG Rhythm: Sinus Rhythm Rhythm change?: N Notified?: Jay briceño MD Response: Latest Pineda Fall Score: 50 Fall Risk: High Risk Safety Measures: Call light Within Reach, Bed Alarm Zone 1, Side Rails Side Rails x3, Bed position Low and Locked. Fall Precautions: Door Sign Report given to luci george using sbar.
--- NOTE | 2020-02-26 07:33 | NUR ---
NURSE NOTES: Pt received from [facility] Pate. Pt opens eyes when called by name; however, appears restless; observed shifting in bed; RASS noted +2 - fentanyl on max dose (will administer PRN morphine and ativan). gag reflex is intact; pt is unable to follow simple commands; Bilat pupils equal and round 3mm with sluggish rxn to light. Pt is in ST to environmental monitoring specialist. Radial and dorsalis pedis pulses 2+. Non-pitting edema noted to hands. Axillary temp 101 F - ice packs applied to axilla (will administer PRN tylenol). Cap refill less than 2 sec. Pt is orally intubated with a 7.5 noted 25 cm at the lip with the following settings: AC 22 TV 550 FiO2 60% Peep 8 - spO2 noted 98-99%. All lung ricketts noted diminished upon auscultation. OGT noted running Nepro at 35 cc/hr w/o gastric residuals. Bowel sounds are active to all quadrants. Abdomen appears roud, soft, and non-tender. F/C noted draining yellow urine. Skin alterations noted. Pt has a right foot 22g IV running fentanyl gtt at 300 mcg/hr, a LH 22g IV running 1/2 NS at 75 cc/hr, and a RFA 20g IV saline-locked. ESCROW ASSISTANT restraints noted - skin to both wrists intact without redness. Bed in lowest position, alarm on, side rails up x 2, call light within reach. Will continue to monitor. -Hgb today noted 7.2 (Pt received 2 units PRBCs over night - Dr Ohara in the unit and reviewed post-transfusion labs including Hgb). Addendum: 02/26/20 at 1415 by Lupe Hansen RN Late entry: non-pitting edema noted to BUE. Addendum: 02/26/20 at 1554 by Lupe Hanesn RN Amendment: please disregard pervious notes/amendments: NURSE NOTES: Pt received from JO-[facility] Pate. Pt opens eyes when called by name; however, appears restless; observed shifting in bed; RASS noted +2 - fentanyl on max dose (will administer PRN morphine and ativan). gag reflex is intact; pt is unable to follow simple commands; Bilat pupils equal and round 3mm with sluggish rxn to light. Pt is in ST to environmental monitoring specialist. Radial and dorsalis pedis pulses 2+. Non-pitting edema noted to hands. Axillary temp 101 F - ice packs applied to axilla (will administer PRN tylenol). Cap refill less than 2 sec. Pt is orally intubated with a 7.5 noted 25 cm at the lip with the following settings: AC 22 TV 550 FiO2 60% Peep 8 - spO2 noted 98-99%. All lung ricketts noted diminished upon auscultation. OGT noted running Nepro at 35 cc/hr w/o gastric residuals. Bowel sounds are active to all quadrants. Abdomen appears roud, soft, and non-tender. F/C noted draining yellow urine. Skin alterations noted. Pt has a right foot 22g IV running fentanyl gtt at 300 mcg/hr and 1/2 NS at 75 cc/hr, as well as LH 22g and RFA 20g IVs saline-locked. ESCROW ASSISTANT restraints noted - skin to both wrists intact without redness. Bed in lowest position, alarm on, side rails up x 2, call light within reach. Will continue to monitor.
[2020-02-26] MEDS: Morphine Sulfate 2mg/ml Inj(IV/IM USE ONLY) IVP PRN ×2 (07:55→14:36)
[2020-02-26] MEDS: Pantoprazole Inj IVP SCH ×2 (07:59→20:43)
[2020-02-26] MEDS: Aspirin Baby 81mg ORAL SCH (07:59)
[2020-02-26] MEDS: Solu-MEDROL 125mg Inj IVP SCH (07:59)
[2020-02-26] MEDS: Imdur 30mg tab ORAL SCH (08:00)
--- NOTE | 2020-02-26 08:00 | NUR ---
NURSE NOTES: Pt cleaned and repositioned. Oral care provided. Administering ativan for agitation, morphine for pain, and tylenol for temp 101 F.
[2020-02-26] MEDS: Enoxaparin 80mg Inj SUBQ SCH ×3 (08:01→20:48)
--- NOTE | 2020-02-26 08:01 | NUR ---
NURSE NOTES: LH and RFA IVs discontinued at this time. dorsal aspect of left hand appears puffy with multiple open and intact blisters. Extremity elevated and area covered with optifoam.
[2020-02-26] MEDS: Levemir Flexpen SUBQ SCH ×2 (08:08→18:15)
--- NOTE | 2020-02-26 08:30 | NUR ---
NURSE NOTES: RASS now noted -2 (30 min after ativan and morphine administration).
--- NOTE | 2020-02-26 08:34 | NUR ---
RD ASSESSMENT & RECOMMENDATIONS SEE CARE ACTIVITY FOR COMPLETE ASSESSMENT DAILY ESTIMATED NEEDS: Needs based on Critical care/ 54.9kg abw 22-28 kcals/kg 9219-3699 total kcals 1.2-2 g protein/kg 66- 109 g total protein 25-30 mL/kg 5756-5133 total fluid mLs NUTRITION DIAGNOSIS: * Altered nutrition related lab values R/T clinical status as evidenced by variable poc BGs (52-325 upon adm, now 200's), elev WBC, elev K (5.4 -> wnl-> back up 6.3*), elev LFTs. ENTERAL NUTRITION RECOMMENDATIONS: Nepro @ 35ml/hr x 24 hrs to provide 840ml, 1512kcal, 68g prot, 611ml free water * Rec Nepro at this time (elev K 6.3* 02/22 w/ previous episodes of elev K) * As medically appropriate, initiate Nepro @ 15ml/hr x 6hrs * Advance 10ml q 4-6 hrs as tolerated to goal * HOB over 30 degrees/ water flush per MD ADDITIONAL RECOMMENDATIONS: * Calibrated bedscale wts * Monitor lytes: critically elev K (6.3-> now wnl ) * Monitor for hypoglycemia while NPO- maintain added D5 BG monitoring while held for HOB <30 degrees * TF rec as above when medically appropriate to feed . .
--- NOTE | 2020-02-26 08:45 | General Progress Note ---
Subjective Date patient seen: Feb 26, 2020 Time patient seen: 07:45 - am ROS Limited/Unobtainable: Yes Allergies: Coded Allergies: No Known Allergies (Unverified , 07/30/15) Subjective HISTORY OF PRESENT ILLNESS: This is a 59-year-old female who is being seen on the ICU of [facility]. Patient in bed on vent intubated. No signs of distress noted. Objective Last 24 Hour Vital Signs Date Time Temp Pulse Resp B/P (MAP) Pulse Ox O2 Delivery O2 Flow Rate FiO2 02/26/20 08:01 88 166/70 02/26/20 08:00 166/70 02/26/20 08:00 166/70 02/26/20 08:00 88 166/70 02/26/20 07:55 88 20 166/70 100 02/26/20 07:15 20 154/80 Mechanical Ventilator 60 02/26/20 07:00 85 12 163/71 (101) 100 02/26/20 06:45 20 154/64 Mechanical Ventilator 60 02/26/20 06:30 86 20 153/64 (93) 100 02/26/20 06:15 20 154/84 Mechanical Ventilator 60 02/26/20 06:00 86 10 152/61 (91) 100 02/26/20 05:30 91 0 152/64 (93) 100 02/26/20 05:15 20 146/60 Mechanical Ventilator 100 02/26/20 05:07 84 20 144/65 96 02/26/20 05:00 103 22 148/69 (95) 98 02/26/20 04:37 125 28 158/125 98 02/26/20 04:15 16 154/65 Mechanical Ventilator 100 02/26/20 04:00 99.8 98 22 145/61 (89) 98 02/26/20 04:00 60 02/26/20 04:00 85 02/26/20 04:00 Mechanical Ventilator Mechanical Ventilator Mechanical Ventilator 02/26/20 03:25 116 22 99 Mechanical Ventilator 60 122 22 60 02/26/20 03:15 20 139/63 Mechanical Ventilator 60 02/26/20 03:00 116 20 143/47 (79) 99 02/26/20 02:30 88 17 151/42 (78) 100 02/26/20 02:15 22 136/63 Mechanical Ventilator 60 11/30/20 02:15 84 20 155/54 (87) 100 02/26/20 02:00 72 19 159/52 (87) 100 02/26/20 01:45 79 22 150/45 (80) 97 02/26/20 01:30 84 22 150/45 (80) 97 02/26/20 01:15 101 159/50 (86) 91 02/26/20 01:15 20 152/78 Mechanical Ventilator 60 02/26/20 01:00 86 159/41 (80) 96 02/26/20 01:00 86 159/41 (80) 96 02/26/20 01:00 86 159/41 (80) 96 02/26/20 00:48 87 172/56 (94) 95 02/26/20 00:48 87 172/56 (94) 95 02/26/20 00:45 90 154/64 (94) 96 02/26/20 00:45 90 96 02/26/20 00:45 78 20 160/86 96 02/26/20 00:30 107 179/65 (103) 95 02/26/20 00:30 107 179/65 (103) 95 02/26/20 00:18 130 201/72 (115) 02/26/20 00:18 130 201/72 (115) 02/26/20 00:18 130 201/72 (115) 02/26/20 00:15 138 201/72 (115) 02/26/20 00:15 20 172/56 Mechanical Ventilator 100 02/26/20 00:15 130 28 173/69 100 02/26/20 00:15 138 02/26/20 00:00 60 02/26/20 00:00 116 173/69 (103) 92 02/26/20 00:00 80 02/26/20 00:00 33 200/101 Mechanical Ventilator 100 02/26/20 00:00 Mechanical Ventilator Mechanical Ventilator Mechanical Ventilator 02/26/20 00:00 116 173/69 (103) 92 02/26/20 00:00 99.0 116 173/69 (103) 92 02/25/20 23:19 129 27 100 Mechanical Ventilator 60 126 26 60 02/25/20 23:00 99.0 62 135/64 (87) 100 02/25/20 23:00 20 134/65 Mechanical Ventilator 100 02/25/20 22:00 62 140/65 (90) 100 02/25/20 22:00 20 130/68 Mechanical Ventilator 100 02/25/20 21:45 16 136/64 Mechanical Ventilator 100 02/25/20 21:33 98.4 02/25/20 21:22 78 20 136/40 20 02/25/20 21:00 18 128/64 Mechanical Ventilator 100 02/25/20 21:00 20 130/64 100 02/25/20 21:00 98.4 62 135/64 (87) 100 02/25/20 20:52 123 23 140/51 02/25/20 20:17 60 153/64 02/25/20 20:00 62 135/64 (87) 100 02/25/20 20:00 60 02/25/20 20:00 18 130/65 Mechanical Ventilator 100 02/25/20 20:00 0 130/64 Mechanical Ventilator 100 02/25/20 20:00 72 02/25/20 20:00 Mechanical Ventilator Mechanical Ventilator Mechanical Ventilator 02/25/20 19:30 78 147/88 (107) 100 02/25/20 19:16 64 22 100 Mechanical Ventilator 60 78 22 60 02/25/20 19:00 80 141/73 (95) 100 02/25/20 18:43 22 149/84 Mechanical Ventilator 02/25/20 18:30 114 149/84 (105) 100 02/25/20 18:00 88 156/73 (100) 100 02/25/20 17:30 65 141/63 (89) 100 02/25/20 17:00 63 143/66 (91) 100 02/25/20 16:43 20 132/67 Mechanical Ventilator 02/25/20 16:30 60 144/59 (87) 100 02/25/20 16:00 100.5 61 132/67 (88) 100 02/25/20 16:00 60 02/25/20 16:00 68 02/25/20 15:43 20 132/67 Mechanical Ventilator 02/25/20 15:30 69 130/58 (82) 100 02/25/20 15:00 81 117/66 (83) 100 02/25/20 14:50 88 22 100 Mechanical Ventilator 60 89 22 60 02/25/20 14:30 107 168/82 (110) 100 02/25/20 14:00 112 167/121 (136) 100 02/25/20 13:30 82 22 138/64 (88) 100 02/25/20 13:00 87 0 135/64 (87) 98 02/25/20 12:43 22 135/64 Mechanical Ventilator 02/25/20 12:30 130 24 133/100 (111) 99 02/25/20 12:25 161/114 02/25/20 12:24 135 30 161/114 02/25/20 12:16 135 27 192/72 (112) 100 02/25/20 12:09 134 27 176/114 (134) 84 02/25/20 12:00 142 02/25/20 12:00 100.4 141 30 180/91 (120) 99 02/25/20 12:00 60 02/25/20 11:38 130 29 98 Mechanical Ventilator 60 133 30 60 02/25/20 11:30 136 26 197/101 (133) 02/25/20 11:00 131 26 187/108 (134) 02/25/20 10:43 25 166/56 Mechanical Ventilator 02/25/20 10:41 66 25 163/69 02/25/20 10:30 68 0 163/69 (100) 02/25/20 10:00 80 0 160/64 (96) 02/25/20 09:30 84 22 148/58 (88) 02/25/20 09:00 128 18 183/93 (123) Intake and Output 02/25/20 02/26/20 19:00 07:00 Intake Total 1238 ml 2047.208 ml Output Total 370 ml 510 ml Balance 868 ml 1537.208 ml Free Water 50 ml IV Total 993 ml 1077.208 ml Tube Feeding 245 ml 420 ml Blood Product 500 ml Output Urine Total 370 ml 510 ml Laboratory Tests 02/25/20 12:38: POC Whole Blood Glucose 244H 02/25/20 15:00: White Blood Count 19.5H, Red Blood Count 2.39L, Hemoglobin 6.8*L, Hematocrit 21.6L, Mean Corpuscular Volume 91, Mean Corpuscular Hemoglobin 28.3, Mean Corpuscular Hemoglobin Concent 31.3L, Red Cell Distribution Width 17.0H, Platelet Count 464H, Mean Platelet Volume 5.9L, Neutrophils (%) (Auto) , Lymphocytes (%) (Auto) , Monocytes (%) (Auto) , Eosinophils (%) (Auto) , Basophils (%) (Auto) , Differential Total Cells Counted 100, Neutrophils % (Manual) 96H, Lymphocytes % (Manual) 1L, Monocytes % (Manual) 3, Eosinophils % (Manual) 0, Basophils % (Manual) 0, Band Neutrophils 0, Platelet Estimate Adequate, Platelet Morphology Normal, Polychromasia 1+, Hypochromasia 2+, Anisocytosis 1+, Prothrombin Time 13.3H, Prothromb Time International Ratio 1.2H 02/25/20 18:00: Random Vancomycin Level 10.1 02/25/20 18:51: POC Whole Blood Glucose 128H 02/26/20 05:15: White Blood Count 18.2H, Red Blood Count 2.58L, Hemoglobin 7.2L, Hematocrit 23.2L, Mean Corpuscular Volume 90, Mean Corpuscular Hemoglobin 27.9, Mean Corpuscular Hemoglobin Concent 31.1L, Red Cell Distribution Width 17.7H, Platelet Count 491H, Mean Platelet Volume 6.4L, Neutrophils (%) (Auto) , Lymphocytes (%) (Auto) , Monocytes (%) (Auto) , Eosinophils (%) (Auto) , Basophils (%) (Auto) , Neutrophils % (Manual) [Pending], Lymphocytes % (Manual) [Pending], Platelet Estimate [Pending], Platelet Morphology [Pending], Sodium Level 148H, Potassium Level 3.7, Chloride Level 112H, Carbon Dioxide Level 29, Anion Gap 7, Blood Urea Nitrogen 40H, Creatinine 1.4H, Estimat Glomerular Filtration Rate 46.5, Glucose Level 267#H, Calcium Level 7.8L, Total Bilirubin 0.6, Direct Bilirubin 0.4H, Aspartate Amino Transf (AST/SGOT) 60H, Alanine Aminotransferase (ALT/SGPT) 29, Alkaline Phosphatase 676H, Total Protein 6.6, Albumin 1.9L, Globulin 4.7, Albumin/Globulin Ratio 0.4L, Alpha Fetoprotein [Pending] Height (Feet): 5 Height (Inches): 1.00 Weight (Pounds): 168 Objective PHYSICAL EXAMINATION: GENERAL: Intubated. LUNGS: Decreased breath sounds bilaterally. HEART: S1 and S2 tachy ABDOMEN: Obese. Assessment/Plan Assessment/Plan: (1) Cervical DDD (2) Cervical Spondylosis (3) Covid 19 + (4) S/p Code blue and intubation on vent Patient to have sedation as per [facility]. D/w Dr. Landa and he concurred. Monster Corey Feb 26, 2020 08:45
--- NOTE | 2020-02-26 09:00 | NUR ---
NURSE NOTES: Oral temp now 99 F. Pt seen by Dr Feliz. Addendum: 02/26/20 at 1640 by Lupe Hansen RN Late entry: Anderson held per Dr Thakur's order.
--- NOTE | 2020-02-26 09:07 | Critical Care Progress Note ---
Assessment/Plan Assessment/Plan IMPRESSION acute respiratory failure/ now on vent leukocytosis sepsis ARF toxic met encephalopathy COPD DM poor control cavitary lesion negative AFB groundglass infiltrates NSTEMI severe PCM hypertension left shoulder pain bacteremia MRSA hematuria COVID anemia diabetes s/p respiratory cod PLAN DVT prophylaxis and active treatment antibiotics per ID titrate BP meds vent support monitor acid base NGT kayexalate feeds maintain support monitor LOC critical sedate for now medications/laboratory data/nursing notes/ICU care reviewed in detail note reviewed and edited care discussed with RN and RT ICU time spent >40 minutes Critical Care - Subjective Interval Events: very agitated weekend events noted on vent oxygen needs better ROS Limited/Unobtainable: Yes Condition: critical EKG Rhythm: Sinus Rhythm Residuals: minimal Tube Feeding Tolerated: yes I&O: Intake and Output 02/25/20 02/26/20 19:00 07:00 Intake Total 1238 ml 2047.208 ml Output Total 370 ml 510 ml Balance 868 ml 1537.208 ml Free Water 50 ml IV Total 993 ml 1077.208 ml Tube Feeding 245 ml 420 ml Blood Product 500 ml Output Urine Total 370 ml 510 ml Critical Care - Objective ET-Tube: 7.5 ET Position: 25 Last 24 Hour Vital Signs Date Time Temp Pulse Resp B/P (MAP) Pulse Ox O2 Delivery O2 Flow Rate FiO2 02/26/20 08:01 88 166/70 02/26/20 08:00 166/70 02/26/20 08:00 166/70 02/26/20 08:00 88 166/70 02/26/20 07:55 88 20 166/70 100 02/26/20 07:15 20 154/80 Mechanical Ventilator 60 02/26/20 07:00 85 12 163/71 (101) 100 02/26/20 06:45 20 154/64 Mechanical Ventilator 60 02/26/20 06:30 86 20 153/64 (93) 100 02/26/20 06:15 20 154/84 Mechanical Ventilator 60 02/26/20 06:00 86 10 152/61 (91) 100 02/26/20 05:30 91 0 152/64 (93) 100 02/26/20 05:15 20 146/60 Mechanical Ventilator 100 02/26/20 05:07 84 20 144/65 96 02/26/20 05:00 103 22 148/69 (95) 98 02/26/20 04:37 125 28 158/125 98 02/26/20 04:15 16 154/65 Mechanical Ventilator 100 02/26/20 04:00 99.8 98 22 145/61 (89) 98 02/26/20 04:00 60 02/26/20 04:00 85 02/26/20 04:00 Mechanical Ventilator Mechanical Ventilator Mechanical Ventilator 02/26/20 03:25 116 22 99 Mechanical Ventilator 60 122 22 60 02/26/20 03:15 20 139/63 Mechanical Ventilator 60 02/26/20 03:00 116 20 143/47 (79) 99 02/26/20 02:30 88 17 151/42 (78) 100 02/26/20 02:15 22 136/63 Mechanical Ventilator 60 02/26/20 02:15 84 20 155/54 (87) 100 02/26/20 02:00 72 19 159/52 (87) 100 02/26/20 01:45 79 22 150/45 (80) 97 02/26/20 01:30 84 22 150/45 (80) 97 02/26/20 01:15 101 159/50 (86) 91 02/26/20 01:15 20 152/78 Mechanical Ventilator 60 02/26/20 01:00 86 159/41 (80) 96 02/26/20 01:00 86 159/41 (80) 96 02/26/20 01:00 86 159/41 (80) 96 02/26/20 00:48 87 172/56 (94) 95 02/26/20 00:48 87 172/56 (94) 95 02/26/20 00:45 90 154/64 (94) 96 02/26/20 00:45 90 96 02/26/20 00:45 78 20 160/86 96 02/26/20 00:30 107 179/65 (103) 95 02/26/20 00:30 107 179/65 (103) 95 02/26/20 00:18 130 201/72 (115) 02/26/20 00:18 130 201/72 (115) 02/26/20 00:18 130 201/72 (115) 02/26/20 00:15 138 201/72 (115) 02/26/20 00:15 20 172/56 Mechanical Ventilator 100 02/26/20 00:15 130 28 173/69 100 02/26/20 00:15 138 02/26/20 00:00 60 02/26/20 00:00 116 173/69 (103) 92 02/26/20 00:00 80 02/26/20 00:00 33 200/101 Mechanical Ventilator 100 02/26/20 00:00 Mechanical Ventilator Mechanical Ventilator Mechanical Ventilator 02/26/20 00:00 116 173/69 (103) 92 02/26/20 00:00 99.0 116 173/69 (103) 92 02/25/20 23:19 129 27 100 Mechanical Ventilator 60 126 26 60 02/25/20 23:00 99.0 62 135/64 (87) 100 02/25/20 23:00 20 134/65 Mechanical Ventilator 100 02/25/20 22:00 62 140/65 (90) 100 02/25/20 22:00 20 130/68 Mechanical Ventilator 100 02/25/20 21:45 16 136/64 Mechanical Ventilator 100 02/25/20 21:33 98.4 02/25/20 21:22 78 20 136/40 20 02/25/20 21:00 18 128/64 Mechanical Ventilator 100 02/25/20 21:00 20 130/64 100 02/25/20 21:00 98.4 62 135/64 (87) 100 02/25/20 20:52 123 23 140/51 02/25/20 20:17 60 153/64 02/25/20 20:00 62 135/64 (87) 100 02/25/20 20:00 60 02/25/20 20:00 18 130/65 Mechanical Ventilator 100 02/25/20 20:00 0 130/64 Mechanical Ventilator 100 02/25/20 20:00 72 02/25/20 20:00 Mechanical Ventilator Mechanical Ventilator Mechanical Ventilator 02/25/20 19:30 78 147/88 (107) 100 02/25/20 19:16 64 22 100 Mechanical Ventilator 60 78 22 60 02/25/20 19:00 80 141/73 (95) 100 02/25/20 18:43 22 149/84 Mechanical Ventilator 02/25/20 18:30 114 149/84 (105) 100 02/25/20 18:00 88 156/73 (100) 100 02/25/20 17:30 65 141/63 (89) 100 02/25/20 17:00 63 143/66 (91) 100 02/25/20 16:43 20 132/67 Mechanical Ventilator 02/25/20 16:30 60 144/59 (87) 100 02/25/20 16:00 100.5 61 132/67 (88) 100 02/25/20 16:00 60 02/25/20 16:00 68 02/25/20 15:43 20 132/67 Mechanical Ventilator 02/25/20 15:30 69 130/58 (82) 100 02/25/20 15:00 81 117/66 (83) 100 02/25/20 14:50 88 22 100 Mechanical Ventilator 60 89 22 60 02/25/20 14:30 107 168/82 (110) 100 02/25/20 14:00 112 167/121 (136) 100 02/25/20 13:30 82 22 138/64 (88) 100 02/25/20 13:00 87 0 135/64 (87) 98 02/25/20 12:43 22 135/64 Mechanical Ventilator 02/25/20 12:30 130 24 133/100 (111) 99 02/25/20 12:25 161/114 02/25/20 12:24 135 30 161/114 02/25/20 12:16 135 27 192/72 (112) 100 02/25/20 12:09 134 27 176/114 (134) 84 02/25/20 12:00 142 02/25/20 12:00 100.4 141 30 180/91 (120) 99 02/25/20 12:00 60 02/25/20 11:38 130 29 98 Mechanical Ventilator 60 133 30 60 02/25/20 11:30 136 26 197/101 (133) 02/25/20 11:00 131 26 187/108 (134) 02/25/20 10:43 25 166/56 Mechanical Ventilator 02/25/20 10:41 66 25 163/69 02/25/20 10:30 68 0 163/69 (100) 02/25/20 10:00 80 0 160/64 (96) 02/25/20 09:30 84 22 148/58 (88) Labs: Laboratory Tests 02/25/20 12:38: POC Whole Blood Glucose 244H 02/25/20 15:00: White Blood Count 19.5H, Red Blood Count 2.39L, Hemoglobin 6.8*L, Hematocrit 21.6L, Mean Corpuscular Volume 91, Mean Corpuscular Hemoglobin 28.3, Mean Corpuscular Hemoglobin Concent 31.3L, Red Cell Distribution Width 17.0H, Platelet Count 464H, Mean Platelet Volume 5.9L, Neutrophils (%) (Auto) , Lymphocytes (%) (Auto) , Monocytes (%) (Auto) , Eosinophils (%) (Auto) , Basophils (%) (Auto) , Differential Total Cells Counted 100, Neutrophils % (Manual) 96H, Lymphocytes % (Manual) 1L, Monocytes % (Manual) 3, Eosinophils % (Manual) 0, Basophils % (Manual) 0, Band Neutrophils 0, Platelet Estimate Adequate, Platelet Morphology Normal, Polychromasia 1+, Hypochromasia 2+, Anisocytosis 1+, Prothrombin Time 13.3H, Prothromb Time International Ratio 1.2H 02/25/20 18:00: Random Vancomycin Level 10.1 02/25/20 18:51: POC Whole Blood Glucose 128H 02/26/20 05:15: White Blood Count 18.2H, Red Blood Count 2.58L, Hemoglobin 7.2L, Hematocrit 23.2L, Mean Corpuscular Volume 90, Mean Corpuscular Hemoglobin 27.9, Mean Corpuscular Hemoglobin Concent 31.1L, Red Cell Distribution Width 17.7H, Platelet Count 491H, Mean Platelet Volume 6.4L, Neutrophils (%) (Auto) , Lymphocytes (%) (Auto) , Monocytes (%) (Auto) , Eosinophils (%) (Auto) , Basophils (%) (Auto) , Neutrophils % (Manual) [Pending], Lymphocytes % (Manual) [Pending], Platelet Estimate [Pending], Platelet Morphology [Pending], Sodium Level 148H, Potassium Level 3.7, Chloride Level 112H, Carbon Dioxide Level 29, Anion Gap 7, Blood Urea Nitrogen 40H, Creatinine 1.4H, Estimat Glomerular Filtration Rate 46.5, Glucose Level 267#H, Calcium Level 7.8L, Total Bilirubin 0.6, Direct Bilirubin 0.4H, Aspartate Amino Transf (AST/SGOT) 60H, Alanine Aminotransferase (ALT/SGPT) 29, Alkaline Phosphatase 676H, Total Protein 6.6, Albumin 1.9L, Globulin 4.7, Albumin/Globulin Ratio 0.4L, Alpha Fetoprotein [Pending] Objective: deferred due to COVID Accucheck: 267 Germán Feliz MD Feb 26, 2020 09:07
--- NOTE | 2020-02-26 10:00 | NUR ---
NURSE NOTES: Pt repositioned. no distress noted. remains with RASS -2.
--- NOTE | 2020-02-26 11:00 | NUR ---
NURSE NOTES: Pt seen by Dr Lopez.
--- NOTE | 2020-02-26 11:02 | Infectious Diseases Prog Note ---
Assessment/Plan Assessment/Plan antibiotics : vancomycin iv, remdesivir A 1. MRSA cavitary pneumonia sputum AFB negative x 3 2. MRSA sepsis r/o endocarditis 3. diabetes mellitus 4. hypertension 5. COPD 6. respiratory failure 7. aortic stenosis 8. COVID 19 pneumonia improving on 60 percent FiO2, PEEP 8, saturation 96 % s/p ivermectin 11.27.20 P 1. continue iv vancomycin 17 more days 2. continue remdesivir day 9 3. decrease solumedrol 4. will follow up cultures 5. continue isolation Subjective ROS Limited/Unobtainable: Yes Allergies: Coded Allergies: No Known Allergies (Unverified , 07/30/15) Objective Last 24 Hour Vital Signs Date Time Temp Pulse Resp B/P (MAP) Pulse Ox O2 Delivery O2 Flow Rate FiO2 02/26/20 10:30 64 21 139/67 (91) 96 02/26/20 10:00 68 22 146/73 (97) 98 02/26/20 09:30 75 18 142/71 (94) 98 02/26/20 09:00 99.0 76 20 134/66 (88) 98 02/26/20 08:30 122 17 163/88 (113) 97 02/26/20 08:01 88 166/70 02/26/20 08:00 60 02/26/20 08:00 166/70 02/26/20 08:00 166/70 02/26/20 08:00 88 166/70 02/26/20 08:00 101.0 89 22 169/70 (103) 100 02/26/20 07:55 88 20 166/70 100 02/26/20 07:30 85 21 166/70 (102) 100 02/26/20 07:21 71 22 60 02/26/20 07:15 20 154/80 Mechanical Ventilator 60 02/26/20 07:00 85 12 163/71 (101) 100 02/26/20 06:45 20 154/64 Mechanical Ventilator 60 02/26/20 06:30 86 20 153/64 (93) 100 02/26/20 06:15 20 154/84 Mechanical Ventilator 60 02/26/20 06:00 86 10 152/61 (91) 100 02/26/20 05:30 91 0 152/64 (93) 100 02/26/20 05:15 20 146/60 Mechanical Ventilator 100 02/26/20 05:07 84 20 144/65 96 02/26/20 05:00 103 22 148/69 (95) 98 02/26/20 04:37 125 28 158/125 98 02/26/20 04:15 16 154/65 Mechanical Ventilator 100 02/26/20 04:00 99.8 98 22 145/61 (89) 98 02/26/20 04:00 60 02/26/20 04:00 85 02/26/20 04:00 Mechanical Ventilator Mechanical Ventilator Mechanical Ventilator 02/26/20 03:25 116 22 99 Mechanical Ventilator 60 122 22 60 02/26/20 03:15 20 139/63 Mechanical Ventilator 60 02/26/20 03:00 116 20 143/47 (79) 99 02/26/20 02:30 88 17 151/42 (78) 100 02/26/20 02:15 22 136/63 Mechanical Ventilator 60 02/26/20 02:15 84 20 155/54 (87) 100 02/26/20 02:00 72 19 159/52 (87) 100 02/26/20 01:45 79 22 150/45 (80) 97 02/26/20 01:30 84 22 150/45 (80) 97 02/26/20 01:15 101 159/50 (86) 91 02/26/20 01:15 20 152/78 Mechanical Ventilator 60 02/26/20 01:00 86 159/41 (80) 96 02/26/20 01:00 86 159/41 (80) 96 02/26/20 01:00 86 159/41 (80) 96 02/26/20 00:48 87 172/56 (94) 95 02/26/20 00:48 87 172/56 (94) 95 02/26/20 00:45 90 154/64 (94) 96 02/26/20 00:45 90 96 02/26/20 00:45 78 20 160/86 96 02/26/20 00:30 107 179/65 (103) 95 02/26/20 00:30 107 179/65 (103) 95 02/26/20 00:18 130 201/72 (115) 02/26/20 00:18 130 201/72 (115) 02/26/20 00:18 130 201/72 (115) 02/26/20 00:15 138 201/72 (115) 02/26/20 00:15 20 172/56 Mechanical Ventilator 100 02/26/20 00:15 130 28 173/69 100 02/26/20 00:15 138 02/26/20 00:00 60 02/26/20 00:00 116 173/69 (103) 92 02/26/20 00:00 80 02/26/20 00:00 33 200/101 Mechanical Ventilator 100 02/26/20 00:00 Mechanical Ventilator Mechanical Ventilator Mechanical Ventilator 02/26/20 00:00 116 173/69 (103) 92 02/26/20 00:00 99.0 116 173/69 (103) 92 02/25/20 23:19 129 27 100 Mechanical Ventilator 60 126 26 60 02/25/20 23:00 99.0 62 135/64 (87) 100 02/25/20 23:00 20 134/65 Mechanical Ventilator 100 02/25/20 22:00 62 140/65 (90) 100 02/25/20 22:00 20 130/68 Mechanical Ventilator 100 02/25/20 21:45 16 136/64 Mechanical Ventilator 100 02/25/20 21:33 98.4 02/25/20 21:22 78 20 136/40 20 02/25/20 21:00 18 128/64 Mechanical Ventilator 100 02/25/20 21:00 20 130/64 100 02/25/20 21:00 98.4 62 135/64 (87) 100 02/25/20 20:52 123 23 140/51 02/25/20 20:17 60 153/64 02/25/20 20:00 62 135/64 (87) 100 02/25/20 20:00 60 02/25/20 20:00 18 130/65 Mechanical Ventilator 100 02/25/20 20:00 0 130/64 Mechanical Ventilator 100 02/25/20 20:00 72 02/25/20 20:00 Mechanical Ventilator Mechanical Ventilator Mechanical Ventilator 02/25/20 19:30 78 147/88 (107) 100 02/25/20 19:16 64 22 100 Mechanical Ventilator 60 78 22 60 02/25/20 19:00 80 141/73 (95) 100 02/25/20 18:43 22 149/84 Mechanical Ventilator 02/25/20 18:30 114 149/84 (105) 100 02/25/20 18:00 88 156/73 (100) 100 02/25/20 17:30 65 141/63 (89) 100 02/25/20 17:00 63 143/66 (91) 100 02/25/20 16:43 20 132/67 Mechanical Ventilator 02/25/20 16:30 60 144/59 (87) 100 02/25/20 16:00 100.5 61 132/67 (88) 100 02/25/20 16:00 60 02/25/20 16:00 68 02/25/20 15:43 20 132/67 Mechanical Ventilator 02/25/20 15:30 69 130/58 (82) 100 02/25/20 15:00 81 117/66 (83) 100 02/25/20 14:50 88 22 100 Mechanical Ventilator 60 89 22 60 02/25/20 14:30 107 168/82 (110) 100 02/25/20 14:00 112 167/121 (136) 100 02/25/20 13:30 82 22 138/64 (88) 100 02/25/20 13:00 87 0 135/64 (87) 98 02/25/20 12:43 22 135/64 Mechanical Ventilator 02/25/20 12:30 130 24 133/100 (111) 99 02/25/20 12:25 161/114 02/25/20 12:24 135 30 161/114 02/25/20 12:16 135 27 192/72 (112) 100 02/25/20 12:09 134 27 176/114 (134) 84 02/25/20 12:00 142 02/25/20 12:00 100.4 141 30 180/91 (120) 99 02/25/20 12:00 60 02/25/20 11:38 130 29 98 Mechanical Ventilator 60 133 30 60 02/25/20 11:30 136 26 197/101 (133) 02/25/20 11:00 131 26 187/108 (134) Height (Feet): 5 Height (Inches): 1.00 Weight (Pounds): 168 HEENT: other - intubated Laboratory Tests Test 02/25/20 12:38 02/25/20 15:00 02/25/20 18:00 02/25/20 18:51 POC Whole Blood Glucose 244 MG/DL (74-106) H 128 MG/DL (74-106) H White Blood Count 19.5 K/UL (4.8-10.8) H Red Blood Count 2.39 M/UL (4.20-5.40) L Hemoglobin 6.8 G/DL (12.0-16.0) *L Hematocrit 21.6 % (37.0-47.0) L Mean Corpuscular Volume 91 FL (80-99) Mean Corpuscular Hemoglobin 28.3 PG (27.0-31.0) Mean Corpuscular Hemoglobin Concent 31.3 G/DL (32.0-36.0) L Red Cell Distribution Width 17.0 % (11.6-14.8) H Platelet Count 464 K/UL (150-450) H Mean Platelet Volume 5.9 FL (6.5-10.1) L Neutrophils (%) (Auto) % (45.0-75.0) Lymphocytes (%) (Auto) % (20.0-45.0) Monocytes (%) (Auto) % (1.0-10.0) Eosinophils (%) (Auto) % (0.0-3.0) Basophils (%) (Auto) % (0.0-2.0) Differential Total Cells Counted 100 Neutrophils % (Manual) 96 % (45-75) H Lymphocytes % (Manual) 1 % (20-45) L Monocytes % (Manual) 3 % (1-10) Eosinophils % (Manual) 0 % (0-3) Basophils % (Manual) 0 % (0-2) Band Neutrophils 0 % (0-8) Platelet Estimate Adequate Platelet Morphology Normal Polychromasia 1+ Hypochromasia 2+ Anisocytosis 1+ Prothrombin Time 13.3 SEC (9.30-11.50) H Prothromb Time International Ratio 1.2 (0.9-1.1) H Random Vancomycin Level 10.1 ug/mL Test 02/26/20 05:15 White Blood Count 18.2 K/UL (4.8-10.8) H Red Blood Count 2.58 M/UL (4.20-5.40) L Hemoglobin 7.2 G/DL (12.0-16.0) L Hematocrit 23.2 % (37.0-47.0) L Mean Corpuscular Volume 90 FL (80-99) Mean Corpuscular Hemoglobin 27.9 PG (27.0-31.0) Mean Corpuscular Hemoglobin Concent 31.1 G/DL (32.0-36.0) L Red Cell Distribution Width 17.7 % (11.6-14.8) H Platelet Count 491 K/UL (150-450) H Mean Platelet Volume 6.4 FL (6.5-10.1) L Neutrophils (%) (Auto) % (45.0-75.0) Lymphocytes (%) (Auto) % (20.0-45.0) Monocytes (%) (Auto) % (1.0-10.0) Eosinophils (%) (Auto) % (0.0-3.0) Basophils (%) (Auto) % (0.0-2.0) Differential Total Cells Counted 100 Neutrophils % (Manual) 87 % (45-75) H Lymphocytes % (Manual) 2 % (20-45) L Monocytes % (Manual) 4 % (1-10) Eosinophils % (Manual) 0 % (0-3) Basophils % (Manual) 0 % (0-2) Band Neutrophils 7 % (0-8) Platelet Estimate Increased H Platelet Morphology Normal Hypochromasia 2+ Anisocytosis 2+ Sodium Level 148 MMOL/L (136-145) H Potassium Level 3.7 MMOL/L (3.5-5.1) Chloride Level 112 MMOL/L (98-107) H Carbon Dioxide Level 29 MMOL/L (21-32) Anion Gap 7 mmol/L (5-15) Blood Urea Nitrogen 40 mg/dL (7-18) H Creatinine 1.4 MG/DL (0.55-1.30) H Estimat Glomerular Filtration Rate 46.5 mL/min (>60) Glucose Level 267 MG/DL (74-106) #H Calcium Level 7.8 MG/DL (8.5-10.1) L Total Bilirubin 0.6 MG/DL (0.2-1.0) Direct Bilirubin 0.4 MG/DL (0.0-0.3) H Aspartate Amino Transf (AST/SGOT) 60 U/L (15-37) H Alanine Aminotransferase (ALT/SGPT) 29 U/L (12-78) Alkaline Phosphatase 676 U/L (46-116) H Total Protein 6.6 G/DL (6.4-8.2) Albumin 1.9 G/DL (3.4-5.0) L Globulin 4.7 g/dL Albumin/Globulin Ratio 0.4 (1.0-2.7) L Alpha Fetoprotein Pending Current Medications Medications (Trade) Dose Ordered Sig/Ivana Route PRN Reason Start Time Stop Time Status Last Admin Dose Admin Acetaminophen (Tylenol) 650 mg Q6H PRN ORAL Temp >100.5 01/28/20 22:45 03/04/20 22:44 02/26/20 08:21 Acetaminophen (Tylenol) 650 mg Q6H PRN ORAL Mild Pain (Pain Scale 1-3) 02/22/20 16:15 03/23/20 16:14 02/25/20 20:53 Amlodipine Besylate (Norvasc) 10 mg DAILY ORAL 02/01/20 09:00 03/02/20 08:59 02/26/20 08:00 Aspirin (ASA) 81 mg DAILY ORAL 02/14/20 09:00 03/30/20 08:59 02/26/20 07:59 Chlorhexidine Gluconate (Divina-Hex 2%) 1 applic DAILY@2000 TOPIC 02/26/20 20:00 05/26/20 19:59 Clonidine HCl (Catapres Tab) 0.1 mg Q4H PRN ORAL SBP > 150mmHg 02/06/20 07:00 05/06/20 06:59 02/26/20 08:00 Dextrose (Dextrose 50%) 25 ml Q30M PRN IV Hypoglycemia 01/28/20 22:45 04/27/20 22:44 Dextrose (Dextrose 50%) 50 ml Q30M PRN IV Hypoglycemia 01/28/20 22:45 04/27/20 22:44 Enoxaparin Sodium (Lovenox) 80 mg Q12HR SUBQ 02/13/20 18:54 05/13/20 18:53 02/26/20 08:01 Epoetin Haseeb (Epoetin Haseeb-EPBX(NON ESRD)) 8,000 unit WED-WED-WED SUBQ 02/05/20 21:00 05/05/20 20:59 02/23/20 21:49 Fentanyl Citrate 250 ml @ 1 mls/hr Q24H IV 02/25/20 21:45 02/27/20 21:44 02/26/20 06:45 Guaifenesin/ Dextromethorphan (Robitussin DM Syrup) 15 ml Q4H PRN ORAL For Cough 02/12/20 16:53 05/12/20 16:52 02/19/20 22:21 Heparin Sodium/ Sodium Chloride (Heparin 1000 units/500ml Premix) 1,000 unit ONCE IV 02/25/20 09:30 02/26/20 23:59 Insulin Aspart (NovoLOG) Q6HR SUBQ 01/29/20 00:00 04/28/20 00:00 02/26/20 00:00 Insulin Detemir (Levemir) 10 units BID SUBQ 02/08/20 18:00 05/04/20 17:59 02/26/20 08:08 Ipratropium [place] (Atrovent Inh) 1 puffs Q4H INH 02/18/20 18:00 03/19/20 17:59 02/26/20 03:24 Isosorbide Mononitrate (Imdur) 30 mg DAILY ORAL 02/02/20 09:00 03/03/20 08:59 02/26/20 08:00 Lidocaine (Lidoderm 5% PATCH) 1 patch DAILY TDERMAL 02/11/20 09:30 05/11/20 09:29 02/26/20 08:01 Lidocaine HCl (Xylocaine 1% 30ml) 30 ml ONCE INJ 02/25/20 09:30 02/26/20 23:59 Lorazepam (Ativan 2mg/ml 1ml) 1 mg Q2H PRN IV Agitation 02/23/20 05:15 03/01/20 05:14 02/26/20 07:55 Lorazepam (Ativan) 1 mg Q4H PRN ORAL For Anxiety 02/21/20 22:15 03/04/20 22:14 02/25/20 20:52 Methocarbamol (Robaxin) 500 mg Q8H PRN ORAL muscle spasm 02/11/20 09:30 03/12/20 09:29 02/21/20 05:13 Methylprednisolone Sodium Succinate (Solu-MEDROL) 60 mg EVERY 12 HOURS IVP 02/23/20 21:00 05/23/20 20:59 02/26/20 07:59 Metoprolol Tartrate (Lopressor) 25 mg Q12HR ORAL 02/04/20 21:00 05/04/20 20:59 02/26/20 08:01 Morphine Sulfate (Morphine Sulfate) 2 mg Q2H PRN IVP For Pain 4-10 02/24/20 15:00 03/02/20 14:59 02/26/20 07:55 Multivitamins (Multivitamins) 1 tab DAILY NG 02/23/20 12:30 03/24/20 12:29 02/26/20 08:00 Nitroglycerin (Ntg) 0.4 mg Q5M PRN SL Prn Chest Pain 02/01/20 08:00 03/02/20 07:59 02/21/20 14:57 Ondansetron HCl (Zofran) 4 mg Q6H PRN IVP Nausea & Vomiting 01/28/20 22:45 02/27/20 22:44 02/01/20 18:10 Pantoprazole (Protonix) 40 mg EVERY 12 HOURS IVP 02/25/20 10:00 03/24/20 08:59 02/26/20 07:59 Remdesivir 100 mg/ Sodium Chloride 250 ml @ 250 mls/hr Q24H IV 02/23/20 18:00 02/27/20 18:59 02/25/20 19:05 Sodium Chloride 1,000 ml @ 75 mls/hr [id number] IV 02/24/20 16:00 03/25/20 15:59 02/26/20 05:00 Vancomycin HCl (Vanco pharmacy to dose) 1 ea DAILY PRN MISC Per rx protocol 02/13/20 11:30 03/14/20 11:29 Messi Lopez MD Feb 26, 2020 11:02
--- NOTE | 2020-02-26 12:00 | NUR ---
NURSE NOTES: Pt repositioned. Oral care provided. FiO2 titrated up to 65% at this time (SpO2 ntoed in the 80s). Will monitor.
--- NOTE | 2020-02-26 14:00 | NUR ---
NURSE NOTES: Pt repositioned - currently being prepped for PICC insertion.
--- NOTE | 2020-02-26 14:12 | NUR ---
NURSE NOTES: Dr Theodore Alston inserting PICC at bedside.
--- NOTE | 2020-02-26 14:37 | NUR ---
NURSE NOTES: PICC line successfully inserted in ULISES. Pt noted agitated w/ BP 200/79 - PRN ativan, morphine, catapress given at this time.
--- NOTE | 2020-02-26 15:09 | Brief Operative Note ---
Immediate Post Operative Note Operative Note Pre-op Diagnosis: needs IV access Procedure: PICC Post-op Diagnosis: same Surgeon: Siobhan ALSTON Anesthesia: local Specimen: none Complications: none Fluids: none Implant(s) used?: No Theodore Alston MD Feb 26, 2020 15:09
--- NOTE | 2020-02-26 15:15 | NUR ---
NURSE NOTES: OK to use PICC per Dr Alston. fentanyl and 1/2 NS switched to ULISES PICC at this time.
--- NOTE | 2020-02-26 16:23 | NUR ---
NURSE NOTES: Pt repositioned and cleaned. PO care provided. FiO2 titrated down to 50% at this time. Pt in no apparent distress. SpO2 98-100%. Will continue to monitor.
--- NOTE | 2020-02-26 16:58 | Diagnostic Imaging Report ---
Indications: Needs long-term IV access Technique: Procedure performed at bedside. Procedural timeout performed. Ultrasound confirms patent compressible right basilic vein. Total sterile technique, including sterile probe cover and sterile gel, sterile gloves, hand hygiene, hat, mask,, sterile gown, large sterile drape, and preparation with 2% chlorhexidine utilized. Local anesthesia with 1% lidocaine. Under real-time ultrasound guidance, puncture basilic vein using 21-gauge needle, passage 0.018 guidewire, exchange for 4 Cuban peel-away sheath. 4 Cuban Bard dual-lumen power PICC cut to 30 cm. It was inserted through the peel-away sheath. Peel-away sheath and guidewire removed. Catheter fixed to the skin. Both catheter ports aspirated and flushed. Patient tolerated procedure well, without immediate complication. Followup chest x-ray obtained, documents catheter tip position at the high right atrium Impression: Successful bedside placement of right arm PICC under sonographic guidance, as described above.
--- NOTE | 2020-02-26 18:00 | NUR ---
NURSE NOTES: Pt repositioned and cleaned. Meds administered. No distress noted at this time. Will continue to monitor.
[2020-02-26] MEDS: Maintenance Dose:Remdesivir 100mg/NS 230ml x 4 Doses IV SCH ×2 (18:03)
--- NOTE | 2020-02-26 19:14 | NUR ---
NURSE HAND-OFF REPORT: Latest Vital Signs: Temperature 97.9 , Pulse 60 , B/P 137 /77 , Respiratory Rate 0 , O2 SAT 98 , Mechanical Ventilator, FiO2 50% . EKG Rhythm: Sinus Rhythm Rhythm change?: N MD Notified?: n/a Response: Dr Trinidad to see pt thomasiht Latest Pineda Fall Score: 50 Fall Risk: High Risk Safety Measures: Call light Within Reach, Bed Alarm Zone 1, Side Rails Side Rails x3, Bed position Low and Locked. Fall Precautions: Door Sign Yellow Gown Fall education Report given to JO-ANN Pate.
--- NOTE | 2020-02-26 19:46 | NUR ---
NURSE NOTES: received report from luci george pt orally intubated -vent o2 sat 100% no acute resp distress noted sedated with fent drip at 300 mcg/hr -2 rass tolerating tube feeding no residual
[2020-02-26] MEDS ORDERED: Dyna-Hex 2% Top Sol 2oz TOPIC SCH (20:00)
[2020-02-26] MEDS: Dyna-Hex 2% Top Sol 2oz TOPIC SCH (20:05)
[2020-02-26] MEDS: Solu-MEDROL 40mg Inj IVP SCH (20:43)
[2020-02-26] MEDS: Epoetin Alfa-EPBX (NON ESRD)4000 units/ml vial SUBQ SCH (20:47)
--- NOTE | 2020-02-26 22:00 | NUR ---
NURSE NOTES: reposition and suction
--- NOTE | 2020-02-26 23:44 | General Progress Note ---
Subjective Allergies: Coded Allergies: No Known Allergies (Unverified , 07/30/15) Subjective Above noted sedated with Fentanyl gtt no BM since yesterday H&H higher after transfusion tolerating TF Objective Last 24 Hour Vital Signs Date Time Temp Pulse Resp B/P (MAP) Pulse Ox O2 Delivery O2 Flow Rate FiO2 02/26/20 23:00 89 22 100 Mechanical Ventilator 50 88 22 50 02/26/20 22:15 20 145/64 Mechanical Ventilator 60 02/26/20 22:00 66 0 145/73 (97) 100 02/26/20 21:15 20 145/73 Mechanical Ventilator 60 02/26/20 21:00 56 0 132/64 (86) 100 66 02/26/20 20:46 71 145/77 02/26/20 20:15 20 145/64 Mechanical Ventilator 60 02/26/20 20:00 71 02/26/20 20:00 97.8 60 0 141/68 (92) 100 71 02/26/20 20:00 Mechanical Ventilator 02/26/20 19:23 74 22 100 Mechanical Ventilator 50 76 22 50 02/26/20 19:15 22 137/77 Mechanical Ventilator 50 02/26/20 19:00 60 0 137/77 (97) 98 02/26/20 18:30 88 22 153/80 (104) 94 02/26/20 18:15 22 138/68 Mechanical Ventilator 50 02/26/20 18:14 22 138/68 Mechanical Ventilator 50 02/26/20 18:00 61 22 138/68 (91) 98 02/26/20 17:30 60 22 133/66 (88) 99 02/26/20 17:15 22 149/69 Mechanical Ventilator 50 02/26/20 17:00 74 22 149/69 (95) 98 02/26/20 16:30 106 13 166/94 (118) 93 02/26/20 16:23 50 02/26/20 16:15 22 131/65 Mechanical Ventilator 60 02/26/20 16:00 76 02/26/20 16:00 97.9 77 22 131/65 (87) 100 02/26/20 16:00 Mechanical Ventilator 02/26/20 15:36 60 02/26/20 15:30 85 22 140/68 (92) 100 02/26/20 15:28 75 22 100 Mechanical Ventilator 50 80 22 50 02/26/20 15:15 22 140/68 Mechanical Ventilator 65 02/26/20 15:05 85 22 140/68 100 02/26/20 15:00 118 15 198/102 (134) 100 02/26/20 14:37 82 22 200/79 100 02/26/20 14:36 200/79 02/26/20 14:30 103 13 200/79 (119) 100 02/26/20 14:15 22 194/79 Mechanical Ventilator 65 02/26/20 14:00 104 22 132/65 (87) 100 02/26/20 13:30 61 22 129/63 (85) 100 02/26/20 13:15 22 129/63 Mechanical Ventilator 65 02/26/20 13:00 61 22 134/67 (89) 100 02/26/20 12:30 66 22 137/66 (89) 100 02/26/20 12:15 22 137/66 Mechanical Ventilator 65 02/26/20 12:00 98 02/26/20 12:00 Mechanical Ventilator 02/26/20 12:00 98.9 71 22 138/67 (90) 98 02/26/20 11:57 65 02/26/20 11:30 61 22 137/69 (91) 96 02/26/20 11:19 68 22 65 02/26/20 11:15 22 137/69 Mechanical Ventilator 60 02/26/20 11:00 62 22 141/70 (93) 96 02/26/20 10:30 64 21 139/67 (91) 96 02/26/20 10:15 22 139/67 Mechanical Ventilator 60 02/26/20 10:00 68 22 146/73 (97) 98 02/26/20 09:30 75 18 142/71 (94) 98 02/26/20 09:15 22 142/71 Mechanical Ventilator 60 02/26/20 09:00 99.0 76 20 134/66 (88) 98 02/26/20 08:51 99.0 02/26/20 08:30 122 17 163/88 (113) 97 02/26/20 08:25 98 22 163/83 100 02/26/20 08:15 22 163/88 Mechanical Ventilator 60 02/26/20 08:01 88 166/70 02/26/20 08:00 87 02/26/20 08:00 60 02/26/20 08:00 166/70 02/26/20 08:00 166/70 02/26/20 08:00 88 166/70 02/26/20 08:00 Mechanical Ventilator 02/26/20 08:00 101.0 89 22 169/70 (103) 100 02/26/20 07:55 88 20 166/70 100 02/26/20 07:30 85 21 166/70 (102) 100 02/26/20 07:30 85 21 166/70 (102) 100 02/26/20 07:21 71 22 60 02/26/20 07:15 20 154/80 Mechanical Ventilator 60 02/26/20 07:00 85 12 163/71 (101) 100 02/26/20 07:00 85 12 163/71 (101) 100 02/26/20 06:45 20 154/64 Mechanical Ventilator 60 02/26/20 06:30 86 20 153/64 (93) 100 02/26/20 06:30 86 20 153/64 (93) 100 02/26/20 06:15 20 154/84 Mechanical Ventilator 60 02/26/20 06:00 86 10 152/61 (91) 100 02/26/20 06:00 86 10 152/61 (91) 100 02/26/20 05:30 91 0 152/64 (93) 100 02/26/20 05:30 91 0 152/64 (93) 100 02/26/20 05:15 20 146/60 Mechanical Ventilator 100 02/26/20 05:07 84 20 144/65 96 02/26/20 05:00 103 22 148/69 (95) 98 02/26/20 05:00 103 22 148/69 (95) 98 02/26/20 04:37 125 28 158/125 98 02/26/20 04:30 130 21 158/125 (136) 85 02/26/20 04:15 16 154/65 Mechanical Ventilator 100 02/26/20 04:00 99.8 98 22 145/61 (89) 98 02/26/20 04:00 60 02/26/20 04:00 85 02/26/20 04:00 98 22 145/61 (89) 98 02/26/20 04:00 Mechanical Ventilator Mechanical Ventilator Mechanical Ventilator 02/26/20 03:30 129 20 132/83 (99) 94 02/26/20 03:25 116 22 99 Mechanical Ventilator 60 122 22 60 02/26/20 03:15 20 139/63 Mechanical Ventilator 60 02/26/20 03:00 116 20 143/47 (79) 99 02/26/20 03:00 116 20 143/47 (79) 99 02/26/20 02:30 88 17 151/42 (78) 100 02/26/20 02:30 88 17 151/42 (78) 100 02/26/20 02:15 22 136/63 Mechanical Ventilator 60 02/26/20 02:15 84 20 155/54 (87) 100 02/26/20 02:00 72 19 159/52 (87) 100 02/26/20 02:00 72 19 159/52 (87) 100 02/26/20 01:45 79 22 150/45 (80) 97 02/26/20 01:30 84 22 158/45 (82) 97 02/26/20 01:30 84 22 150/45 (80) 97 02/26/20 01:15 101 159/50 (86) 91 02/26/20 01:15 20 152/78 Mechanical Ventilator 60 02/26/20 01:00 86 159/41 (80) 96 02/26/20 01:00 86 159/41 (80) 96 02/26/20 01:00 86 159/41 (80) 96 02/26/20 01:00 86 159/41 (80) 96 02/26/20 00:48 87 172/56 (94) 95 02/26/20 00:48 87 172/56 (94) 95 02/26/20 00:48 87 172/56 (94) 95 02/26/20 00:45 90 154/64 (94) 96 02/26/20 00:45 90 96 02/26/20 00:45 78 20 160/86 96 02/26/20 00:30 107 179/65 (103) 95 02/26/20 00:30 107 179/65 (103) 95 02/26/20 00:30 107 179/65 (103) 95 02/26/20 00:20 129 199/134 (155) 02/26/20 00:18 130 201/72 (115) 02/26/20 00:18 130 201/72 (115) 02/26/20 00:18 130 201/72 (115) 02/26/20 00:18 130 201/72 (115) 02/26/20 00:15 138 201/72 (115) 02/26/20 00:15 20 172/56 Mechanical Ventilator 100 02/26/20 00:15 130 28 173/69 100 02/26/20 00:15 138 02/26/20 00:00 60 02/26/20 00:00 116 173/69 (103) 92 02/26/20 00:00 80 02/26/20 00:00 33 200/101 Mechanical Ventilator 100 02/26/20 00:00 Mechanical Ventilator Mechanical Ventilator Mechanical Ventilator 02/26/20 00:00 116 173/69 (103) 92 02/26/20 00:00 99.0 116 173/69 (103) 92 02/26/20 00:00 116 173/69 (103) 92 Intake and Output 02/25/20 02/26/20 19:00 07:00 Intake Total 1238 ml 2047.208 ml Output Total 370 ml 510 ml Balance 868 ml 1537.208 ml Free Water 50 ml IV Total 993 ml 1077.208 ml Tube Feeding 245 ml 420 ml Blood Product 500 ml Output Urine Total 370 ml 510 ml Laboratory Tests 02/26/20 05:15: White Blood Count 18.2H, Red Blood Count 2.58L, Hemoglobin 7.2L, Hematocrit 23.2L, Mean Corpuscular Volume 90, Mean Corpuscular Hemoglobin 27.9, Mean Corpuscular Hemoglobin Concent 31.1L, Red Cell Distribution Width 17.7H, Platelet Count 491H, Mean Platelet Volume 6.4L, Neutrophils (%) (Auto) , Lymphocytes (%) (Auto) , Monocytes (%) (Auto) , Eosinophils (%) (Auto) , Basophils (%) (Auto) , Differential Total Cells Counted 100, Neutrophils % (Manual) 87H, Lymphocytes % (Manual) 2L, Monocytes % (Manual) 4, Eosinophils % (Manual) 0, Basophils % (Manual) 0, Band Neutrophils 7, Platelet Estimate IncreasedH, Platelet Morphology Normal, Hypochromasia 2+, Anisocytosis 2+, Sodium Level 148H, Potassium Level 3.7, Chloride Level 112H, Carbon Dioxide Level 29, Anion Gap 7, Blood Urea Nitrogen 40H, Creatinine 1.4H, Estimat Glomerular Filtration Rate 46.5, Glucose Level 267#H, Calcium Level 7.8L, Total Bilirubin 0.6, Direct Bilirubin 0.4H, Aspartate Amino Transf (AST/SGOT) 60H, Al anine Aminotransferase (ALT/SGPT) 29, Alkaline Phosphatase 676H, Total Protein 6.6, Albumin 1.9L, Globulin 4.7, Albumin/Globulin Ratio 0.4L, Alpha Fetoprotein [Pending] Height (Feet): 5 Height (Inches): 1.00 Weight (Pounds): 168 Objective Patient seen in ICU On vent more calm and motionless today Assessment/Plan Assessment/Plan: Assessment - Dark stool / presumed GIB - now stable off of anticoagulation - COVID pneumonitis, on Steroids but off lovenox - Acute NH - on ASA - Resp failure - malnutrition, declining albumin - fatty liver - hepatitis C with nodular liver, PCR (+) - abnormal LFT - due to COVD, fatty liver, and HCV - HTN - COPD - Lung mass - DM - PSV Recommendations - Continue TF - monitor CBC - follow LFT - PPI --> now BID - Elevate HOB - outpatient HCV eradication - Outpatient colonoscopy once recovered from current illness Feliberto Pérez MD Feb 26, 2020 23:44
[2020-02-27] VITALS (31 sets, daily range): BP systolic 131–189; BP diastolic 62–122
--- NOTE | 2020-02-27 | NUR ---
NURSE NOTES: pt awake and agitated and restless medicated ativan ivp
[2020-02-27] MEDS: LORazepam Inj 2mg/ml 1ml IV PRN ×4 (00:32→21:07)
[2020-02-27] MEDS: Ipratropium Bromide Inhaler INH SCH ×6 (03:27→22:42)
--- NOTE | 2020-02-27 04:00 | NUR ---
NURSE NOTES: complete bed oral care done
[2020-02-27] MEDS: fentaNYL 2500mcg/NS 250ml 250 ML IV SCH ×4 (04:45→22:30)
[2020-02-27 04:51] LABS: HEMATOCRIT 20.1 % (37.0-47.0); MEAN CORPUSCULAR VOLUME 87 FL (80-99); PLATELET COUNT 338 K/UL (150-450); RED BLOOD COUNT 2.31 M/UL (4.20-5.40); RED CELL DISTRIBUTION WIDTH 18.8 % (11.6-14.8); WHITE BLOOD COUNT 16.8 K/UL (4.8-10.8)
[2020-02-27 05:08] LABS: ALANINE AMINOTRANSFERASE 28 U/L (12-78); ALBUMIN 1.7 G/DL (3.4-5.0); ALBUMIN/GLOBULIN RATIO 0.4 (1.0-2.7); ALKALINE PHOSPHATASE 577 U/L (46-116); ASPARTATE AMINO TRANSFERASE 84 U/L (15-37); BILIRUBIN,DIRECT 0.2 MG/DL (0.0-0.3); BILIRUBIN,TOTAL 0.4 MG/DL (0.2-1.0); BLOOD UREA NITROGEN 42 mg/dL (7-18); CALCIUM 7.6 MG/DL (8.5-10.1); CARBON DIOXIDE 28 MMOL/L (21-32); CHLORIDE 114 MMOL/L (98-107); CREATININE 1.2 MG/DL (0.55-1.30); POTASSIUM 3.4 MMOL/L (3.5-5.1); SODIUM 150 MMOL/L (136-145)
[2020-02-27 05:12] LABS: HEMOGLOBIN 6.9 G/DL (12.0-16.0)
[2020-02-27] MEDS ORDERED: Vancomycin 1gm in D5W 275ml IVPB SCH (05:30)
[2020-02-27] MEDS: NovoLOG Insulin Flexpen SUBQ SCH ×4 (06:00→23:47)
--- NOTE | 2020-02-27 06:00 | NUR ---
NURSE NOTES: bs 118 no coverage
--- NOTE | 2020-02-27 07:25 | Hematology/Onc Progress Note ---
Assessment/Plan Assessment/Plan ASSESSMENT/RECS #. 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 --> Currently, no evidence of malignancy. --> Continue to closely monitor and also for improvement. --> per Dr. Galeana after reviewing her clinical database, the patient may be a candidate for right video-assisted thoracoscopic surgery with a biopsy. However, the patient at the present time does not want to proceed with surgery. #. Leukocytosis with COVID19++ and Asthma exacerbation. --> intubated --> wbc 18-->17 --> on methylprednisone/remdimsivir # Anemia likely of chronic disease --> transfuse as needed --> on epo --> hgb 8.2-->6.9 --> 1 unit prbc 02/26 # Gastritis. # Constipation. # Cavitary pneumonia with MRSA # Staph aureus (MRSA) sepsis # diabetes mellitus # hypertension # COPD # renal failure # aortic stenosis # Hypercapnic/ hypoxic respiratory failure on vent # Dvt ppx lovenox sq bid given covid 19 Appreciate consultation and ailyn Rn Subjective HEENT: Denies: no symptoms, eye pain, blurred vision, tearing, double vision, ear pain, ear discharge, nose pain, nose congestion, throat pain, throat swelling, mouth pain, mouth swelling, other Cardiovascular: Denies: no symptoms, chest pain, edema, irregular heart rate, lightheadedness, palpitations, syncope, other Respiratory: Denies: no symptoms, cough, shortness of breath, SOB with excertion, SOB at rest, sputum, wheezing, other Neurologic/Psychiatric: Denies: no symptoms, anxiety, depressed, emotional problems, headache, numbness, paresthesia, pre-existing deficit, seizure, tingling, tremors, weakness, other Endocrine: Denies: no symptoms, excessive sweating, flushing, intolerance to cold, intolerance to heat, increased hunger, increased thirst, increased urine, unexplained weight gain, unexplained weight loss, other Allergies: Coded Allergies: No Known Allergies (Unverified , 07/30/15) Subjective 02/25 agitated, restless, on mech vent, labs noted, hgb better 02/26 icu, on vent, hgb 6.9, to get 1 unit prbc today, no bleeding Objective Objective Current Medications Medications (Trade) Dose Ordered Sig/Ivana Route PRN Reason Start Time Stop Time Status Last Admin Dose Admin Acetaminophen (Tylenol) 650 mg Q6H PRN ORAL Temp >100.5 01/28/20 22:45 03/04/20 22:44 02/26/20 08:21 Acetaminophen (Tylenol) 650 mg Q6H PRN ORAL Mild Pain (Pain Scale 1-3) 02/22/20 16:15 03/23/20 16:14 02/25/20 20:53 Amlodipine Besylate (Norvasc) 10 mg DAILY ORAL 02/01/20 09:00 03/02/20 08:59 02/26/20 08:00 Aspirin (ASA) 81 mg DAILY ORAL 02/14/20 09:00 03/30/20 08:59 02/26/20 07:59 Chlorhexidine Gluconate (Divina-Hex 2%) 1 applic DAILY@2000 TOPIC 02/26/20 20:00 05/26/20 19:59 02/26/20 20:05 Clonidine HCl (Catapres Tab) 0.1 mg Q4H PRN ORAL SBP > 150mmHg 02/06/20 07:00 05/06/20 06:59 02/26/20 14:36 Dextrose (Dextrose 50%) 25 ml Q30M PRN IV Hypoglycemia 01/28/20 22:45 04/27/20 22:44 Dextrose (Dextrose 50%) 50 ml Q30M PRN IV Hypoglycemia 01/28/20 22:45 04/27/20 22:44 Enoxaparin Sodium (Lovenox) 80 mg Q12HR SUBQ 02/13/20 18:54 05/13/20 18:53 02/24/20 20:18 Epoetin Haseeb (Epoetin Haseeb-EPBX(NON ESRD)) 8,000 unit WED-WED-WED SUBQ 02/05/20 21:00 05/05/20 20:59 02/26/20 20:47 Fentanyl Citrate 250 ml @ 1 mls/hr Q24H IV 02/25/20 21:45 02/27/20 21:44 02/27/20 04:45 Guaifenesin/ Dextromethorphan (Robitussin DM Syrup) 15 ml Q4H PRN ORAL For Cough 02/12/20 16:53 05/12/20 16:52 02/19/20 22:21 Insulin Aspart (NovoLOG) Q6HR SUBQ 01/29/20 00:00 04/28/20 00:00 02/26/20 23:58 Insulin Detemir (Levemir) 10 units BID SUBQ 02/08/20 18:00 05/04/20 17:59 02/26/20 18:15 Ipratropium Petros (Atrovent Inh) 1 puffs Q4H INH 02/18/20 18:00 03/19/20 17:59 02/27/20 03:27 Isosorbide Mononitrate (Imdur) 30 mg DAILY ORAL 02/02/20 09:00 03/03/20 08:59 02/26/20 08:00 Lidocaine (Lidoderm 5% PATCH) 1 patch DAILY TDERMAL 02/11/20 09:30 05/11/20 09:29 02/26/20 08:01 Lorazepam (Ativan 2mg/ml 1ml) 1 mg Q2H PRN IV Agitation 02/23/20 05:15 03/01/20 05:14 02/27/20 03:03 Lorazepam (Ativan) 1 mg Q4H PRN ORAL For Anxiety 02/21/20 22:15 03/04/20 22:14 02/25/20 20:52 Methocarbamol (Robaxin) 500 mg Q8H PRN ORAL muscle spasm 02/11/20 09:30 03/12/20 09:29 02/21/20 05:13 Methylprednisolone Sodium Succinate (Solu-MEDROL) 40 mg Q12HR IVP 02/26/20 21:00 03/07/20 20:59 02/26/20 20:43 Metoprolol Tartrate (Lopressor) 25 mg Q12HR ORAL 02/04/20 21:00 05/04/20 20:59 02/26/20 08:01 Morphine Sulfate (Morphine Sulfate) 2 mg Q2H PRN IVP For Pain 4-10 02/24/20 15:00 03/02/20 14:59 02/26/20 14:36 Multivitamins (Multivitamins) 1 tab DAILY NG 02/23/20 12:30 03/24/20 12:29 02/26/20 08:00 Nitroglycerin (Ntg) 0.4 mg Q5M PRN SL Prn Chest Pain 02/01/20 08:00 03/02/20 07:59 02/21/20 14:57 Ondansetron HCl (Zofran) 4 mg Q6H PRN IVP Nausea & Vomiting 01/28/20 22:45 02/27/20 22:44 02/01/20 18:10 Pantoprazole (Protonix) 40 mg EVERY 12 HOURS IVP 02/25/20 10:00 03/24/20 08:59 02/26/20 20:43 Remdesivir 100 mg/ Sodium Chloride 250 ml @ 250 mls/hr Q24H IV 02/23/20 18:00 02/27/20 18:59 02/26/20 18:03 Sodium Chloride 1,000 ml @ 75 mls/hr [id number] IV 02/24/20 16:00 03/25/20 15:59 02/26/20 21:22 Vancomycin HCl ([facility] pharmacy to dose) 1 ea DAILY PRN MISC Per rx protocol 02/13/20 11:30 03/14/20 11:29 Last 24 Hour Vital Signs Date Time Temp Pulse Resp B/P (MAP) Pulse Ox O2 Delivery O2 Flow Rate FiO2 02/27/20 07:00 65 0 143/69 (93) 96 02/27/20 06:15 20 142/71 Mechanical Ventilator 60 02/27/20 06:00 88 0 154/73 (100) 93 02/27/20 05:18 20 136/64 Mechanical Ventilator 60 02/27/20 05:15 20 165/64 Mechanical Ventilator 60 02/27/20 05:00 101 14 149/120 (130) 97 02/27/20 04:45 20 144/74 Mechanical Ventilator 60 02/27/20 04:00 99.5 88 0 142/71 (94) 97 02/27/20 04:00 Mechanical Ventilator 02/27/20 04:00 50 02/27/20 04:00 74 02/27/20 03:33 89 20 168/99 98 02/27/20 03:27 84 23 100 Mechanical Ventilator 45 81 23 45 02/27/20 03:15 20 156/79 Mechanical Ventilator 60 02/27/20 03:03 125 28 156/139 99 02/27/20 03:00 121 21 140/70 (93) 99 02/27/20 02:15 18 139/65 Mechanical Ventilator 60 02/27/20 02:00 58 0 139/65 (89) 99 02/27/20 01:15 18 142/66 Mechanical Ventilator 60 02/27/20 01:02 84 18 146/64 98 02/27/20 01:00 62 0 145/68 (93) 99 02/27/20 00:32 87 22 174/94 100 02/27/20 00:15 22 174/91 Mechanical Ventilator 60 02/27/20 00:00 50 02/27/20 00:00 98.6 87 0 177/84 (115) 02/27/20 00:00 Mechanical Ventilator 02/27/20 00:00 83 02/26/20 23:15 20 154/64 Mechanical Ventilator 02/26/20 23:00 89 22 100 Mechanical Ventilator 50 88 22 50 02/26/20 23:00 97 13 181/88 (119) 92 02/26/20 22:15 20 145/64 Mechanical Ventilator 60 02/26/20 22:00 66 0 145/73 (97) 100 02/26/20 21:15 20 145/73 Mechanical Ventilator 60 02/26/20 21:00 56 0 132/64 (86) 100 66 02/26/20 20:46 71 145/77 02/26/20 20:15 20 145/64 Mechanical Ventilator 60 02/26/20 20:00 71 02/26/20 20:00 97.8 60 0 141/68 (92) 100 71 02/26/20 20:00 Mechanical Ventilator 02/26/20 20:00 50 02/26/20 19:23 74 22 100 Mechanical Ventilator 50 76 22 50 02/26/20 19:15 22 137/77 Mechanical Ventilator 50 02/26/20 19:00 60 0 137/77 (97) 98 02/26/20 18:30 88 22 153/80 (104) 94 02/26/20 18:15 22 138/68 Mechanical Ventilator 50 02/26/20 18:14 22 138/68 Mechanical Ventilator 50 02/26/20 18:00 61 22 138/68 (91) 98 02/26/20 17:30 60 22 133/66 (88) 99 02/26/20 17:15 22 149/69 Mechanical Ventilator 50 02/26/20 17:00 74 22 149/69 (95) 98 02/26/20 16:30 106 13 166/94 (118) 93 02/26/20 16:23 50 02/26/20 16:15 22 131/65 Mechanical Ventilator 60 02/26/20 16:00 76 02/26/20 16:00 97.9 77 22 131/65 (87) 100 02/26/20 16:00 Mechanical Ventilator 02/26/20 15:36 60 02/26/20 15:30 85 22 140/68 (92) 100 02/26/20 15:28 75 22 100 Mechanical Ventilator 50 80 22 50 02/26/20 15:15 22 140/68 Mechanical Ventilator 65 02/26/20 15:05 85 22 140/68 100 02/26/20 15:00 118 15 198/102 (134) 100 02/26/20 14:37 82 22 200/79 100 02/26/20 14:36 200/79 02/26/20 14:30 103 13 200/79 (119) 100 02/26/20 14:15 22 194/79 Mechanical Ventilator 65 02/26/20 14:00 104 22 132/65 (87) 100 02/26/20 13:30 61 22 129/63 (85) 100 02/26/20 13:15 22 129/63 Mechanical Ventilator 65 02/26/20 13:00 61 22 134/67 (89) 100 02/26/20 12:30 66 22 137/66 (89) 100 02/26/20 12:15 22 137/66 Mechanical Ventilator 65 02/26/20 12:00 98 02/26/20 12:00 Mechanical Ventilator 02/26/20 12:00 98.9 71 22 138/67 (90) 98 02/26/20 11:57 65 02/26/20 11:30 61 22 137/69 (91) 96 02/26/20 11:19 68 22 65 02/26/20 11:15 22 137/69 Mechanical Ventilator 60 02/26/20 11:00 62 22 141/70 (93) 96 02/26/20 10:30 64 21 139/67 (91) 96 02/26/20 10:15 22 139/67 Mechanical Ventilator 60 02/26/20 10:00 68 22 146/73 (97) 98 02/26/20 09:30 75 18 142/71 (94) 98 02/26/20 09:15 22 142/71 Mechanical Ventilator 60 02/26/20 09:00 99.0 76 20 134/66 (88) 98 02/26/20 08:51 99.0 02/26/20 08:30 122 17 163/88 (113) 97 02/26/20 08:25 98 22 163/83 100 02/26/20 08:15 22 163/88 Mechanical Ventilator 60 02/26/20 08:01 88 166/70 02/26/20 08:00 87 02/26/20 08:00 60 02/26/20 08:00 166/70 02/26/20 08:00 166/70 02/26/20 08:00 88 166/70 02/26/20 08:00 Mechanical Ventilator 02/26/20 08:00 101.0 89 22 169/70 (103) 100 02/26/20 07:55 88 20 166/70 100 02/26/20 07:30 85 21 166/70 (102) 100 02/26/20 07:30 85 21 166/70 (102) 100 02/26/20 07:21 71 22 60 02/26/20 07:15 20 154/80 Mechanical Ventilator 60 02/26/20 07:00 85 12 163/71 (101) 100 02/26/20 07:00 85 12 163/71 (101) 100 02/26/20 06:45 20 154/64 Mechanical Ventilator 60 02/26/20 06:30 86 20 153/64 (93) 100 02/26/20 06:30 86 20 153/64 (93) 100 02/26/20 06:15 20 154/84 Mechanical Ventilator 60 02/26/20 06:00 86 10 152/61 (91) 100 02/26/20 06:00 86 10 152/61 (91) 100 02/26/20 05:30 91 0 152/64 (93) 100 02/26/20 05:30 91 0 152/64 (93) 100 02/26/20 05:15 20 146/60 Mechanical Ventilator 100 02/26/20 05:07 84 20 144/65 96 02/26/20 05:00 103 22 148/69 (95) 98 02/26/20 05:00 103 22 148/69 (95) 98 02/26/20 04:37 125 28 158/125 98 02/26/20 04:30 130 21 158/125 (136) 85 02/26/20 04:15 16 154/65 Mechanical Ventilator 100 02/26/20 04:00 99.8 98 22 145/61 (89) 98 02/26/20 04:00 60 02/26/20 04:00 85 02/26/20 04:00 98 22 145/61 (89) 98 02/26/20 04:00 Mechanical Ventilator Mechanical Ventilator Mechanical Ventilator 02/26/20 03:30 129 20 132/83 (99) 94 02/26/20 03:25 116 22 99 Mechanical Ventilator 60 122 22 60 02/26/20 03:15 20 139/63 Mechanical Ventilator 60 02/26/20 03:00 116 20 143/47 (79) 99 02/26/20 03:00 116 20 143/47 (79) 99 02/26/20 02:30 88 17 151/42 (78) 100 02/26/20 02:30 88 17 151/42 (78) 100 02/26/20 02:15 22 136/63 Mechanical Ventilator 60 02/26/20 02:15 84 20 155/54 (87) 100 02/26/20 02:00 72 19 159/52 (87) 100 02/26/20 02:00 72 19 159/52 (87) 100 02/26/20 01:45 79 22 150/45 (80) 97 02/26/20 01:30 84 22 158/45 (82) 97 02/26/20 01:30 84 22 150/45 (80) 97 02/26/20 01:15 101 159/50 (86) 91 02/26/20 01:15 20 152/78 Mechanical Ventilator 60 02/26/20 01:00 86 159/41 (80) 96 02/26/20 01:00 86 159/41 (80) 96 02/26/20 01:00 86 159/41 (80) 96 02/26/20 01:00 86 159/41 (80) 96 02/26/20 00:48 87 172/56 (94) 95 02/26/20 00:48 87 172/56 (94) 95 02/26/20 00:48 87 172/56 (94) 95 02/26/20 00:45 90 154/64 (94) 96 02/26/20 00:45 90 96 02/26/20 00:45 78 20 160/86 96 02/26/20 00:30 107 179/65 (103) 95 02/26/20 00:30 107 179/65 (103) 95 02/26/20 00:30 107 179/65 (103) 95 02/26/20 00:20 129 199/134 (155) 02/26/20 00:18 130 201/72 (115) 02/26/20 00:18 130 201/72 (115) 02/26/20 00:18 130 201/72 (115) 02/26/20 00:18 130 201/72 (115) 02/26/20 00:15 138 201/72 (115) 02/26/20 00:15 20 172/56 Mechanical Ventilator 100 02/26/20 00:15 130 28 173/69 100 02/26/20 00:15 138 02/26/20 00:00 60 02/26/20 00:00 116 173/69 (103) 92 02/26/20 00:00 80 02/26/20 00:00 33 200/101 Mechanical Ventilator 100 02/26/20 00:00 Mechanical Ventilator Mechanical Ventilator Mechanical Ventilator 02/26/20 00:00 116 173/69 (103) 92 02/26/20 00:00 99.0 116 173/69 (103) 92 02/26/20 00:00 116 173/69 (103) 92 02/25/20 23:19 129 27 100 Mechanical Ventilator 60 126 26 60 02/25/20 23:00 99.0 62 135/64 (87) 100 02/25/20 23:00 20 134/65 Mechanical Ventilator 100 02/25/20 22:00 62 140/65 (90) 100 02/25/20 22:00 20 130/68 Mechanical Ventilator 100 02/25/20 21:45 16 136/64 Mechanical Ventilator 100 02/25/20 21:33 98.4 02/25/20 21:22 78 20 136/40 20 02/25/20 21:00 18 128/64 Mechanical Ventilator 100 02/25/20 21:00 20 130/64 100 02/25/20 21:00 98.4 62 135/64 (87) 100 02/25/20 20:52 123 23 140/51 02/25/20 20:17 60 153/64 02/25/20 20:00 62 135/64 (87) 100 02/25/20 20:00 60 02/25/20 20:00 18 130/65 Mechanical Ventilator 100 02/25/20 20:00 0 130/64 Mechanical Ventilator 100 02/25/20 20:00 72 02/25/20 20:00 Mechanical Ventilator Mechanical Ventilator Mechanical Ventilator 02/25/20 19:30 78 147/88 (107) 100 02/25/20 19:16 64 22 100 Mechanical Ventilator 60 78 22 60 02/25/20 19:00 80 141/73 (95) 100 02/25/20 18:43 22 149/84 Mechanical Ventilator 02/25/20 18:30 114 149/84 (105) 100 02/25/20 18:00 88 156/73 (100) 100 02/25/20 17:30 65 141/63 (89) 100 02/25/20 17:00 63 143/66 (91) 100 02/25/20 16:43 20 132/67 Mechanical Ventilator 02/25/20 16:30 60 144/59 (87) 100 02/25/20 16:00 100.5 61 132/67 (88) 100 02/25/20 16:00 60 02/25/20 16:00 68 02/25/20 15:43 20 132/67 Mechanical Ventilator 02/25/20 15:30 69 130/58 (82) 100 02/25/20 15:00 81 117/66 (83) 100 02/25/20 14:50 88 22 100 Mechanical Ventilator 60 89 22 60 02/25/20 14:30 107 168/82 (110) 100 02/25/20 14:00 112 167/121 (136) 100 02/25/20 13:30 82 22 138/64 (88) 100 02/25/20 13:00 87 0 135/64 (87) 98 02/25/20 12:43 22 135/64 Mechanical Ventilator 02/25/20 12:30 130 24 133/100 (111) 99 02/25/20 12:25 161/114 02/25/20 12:24 135 30 161/114 02/25/20 12:16 135 27 192/72 (112) 100 02/25/20 12:09 134 27 176/114 (134) 84 02/25/20 12:00 142 02/25/20 12:00 100.4 141 30 180/91 (120) 99 02/25/20 12:00 60 02/25/20 11:38 130 29 98 Mechanical Ventilator 60 133 30 60 02/25/20 11:30 136 26 197/101 (133) 02/25/20 11:00 131 26 187/108 (134) 02/25/20 10:43 25 166/56 Mechanical Ventilator 02/25/20 10:41 66 25 163/69 02/25/20 10:30 68 0 163/69 (100) 02/25/20 10:00 80 0 160/64 (96) 02/25/20 09:30 84 22 148/58 (88) 02/25/20 09:00 128 18 183/93 (123) 02/25/20 08:30 121 23 161/106 (124) 02/25/20 08:16 61 147/51 02/25/20 08:16 61 147/51 02/25/20 08:00 98.9 62 0 149/57 (87) 100 02/25/20 08:00 62 02/25/20 08:00 60 Intake and Output 02/26/20 02/27/20 19:00 07:00 Intake Total 1623.25 ml 2025 ml Output Total 625 ml 620 ml Balance 998.25 ml 1405 ml Free Water 30 ml 50 ml IV Total 1173.25 ml 1555 ml Tube Feeding 420 ml 420 ml Output Urine Total 625 ml 620 ml Labs Test 02/25/20 00:04 02/25/20 05:25 02/25/20 05:27 02/25/20 08:44 White Blood Count 18.4 K/UL (4.8-10.8) Red Blood Count 2.43 M/UL (4.20-5.40) Hemoglobin 7.4 G/DL (12.0-16.0) Hematocrit 21.3 % (37.0-47.0) Mean Corpuscular Volume 88 FL (80-99) Mean Corpuscular Hemoglobin 30.5 PG (27.0-31.0) Mean Corpuscular Hemoglobin Concent 34.7 G/DL (32.0-36.0) Red Cell Distribution Width 18.1 % (11.6-14.8) Platelet Count 497 K/UL (150-450) Mean Platelet Volume 6.7 FL (6.5-10.1) Neutrophils (%) (Auto) % (45.0-75.0) Lymphocytes (%) (Auto) % (20.0-45.0) Monocytes (%) (Auto) % (1.0-10.0) Eosinophils (%) (Auto) % (0.0-3.0) Basophils (%) (Auto) % (0.0-2.0) Differential Total Cells Counted 100 Neutrophils % (Manual) 97 % (45-75) Lymphocytes % (Manual) 2 % (20-45) Monocytes % (Manual) 1 % (1-10) Eosinophils % (Manual) 0 % (0-3) Basophils % (Manual) 0 % (0-2) Band Neutrophils 0 % (0-8) Platelet Estimate Increased Platelet Morphology Normal Polychromasia 1+ Anisocytosis 1+ Sodium Level 148 MMOL/L (136-145) Potassium Level 3.3 MMOL/L (3.5-5.1) Chloride Level 111 MMOL/L (98-107) Carbon Dioxide Level 32 MMOL/L (21-32) Anion Gap 5 mmol/L (5-15) Blood Urea Nitrogen 38 mg/dL (7-18) Creatinine 1.3 MG/DL (0.55-1.30) Estimat Glomerular Filtration Rate 50.7 mL/min (>60) Glucose Level 150 MG/DL (74-106) Calcium Level 8.0 MG/DL (8.5-10.1) Total Bilirubin 0.5 MG/DL (0.2-1.0) Direct Bilirubin 0.2 MG/DL (0.0-0.3) Aspartate Amino Transf (AST/SGOT) 55 U/L (15-37) Alanine Aminotransferase (ALT/SGPT) 30 U/L (12-78) Alkaline Phosphatase 689 U/L (46-116) Total Protein 6.8 G/DL (6.4-8.2) Albumin 1.8 G/DL (3.4-5.0) Globulin 5.0 g/dL Albumin/Globulin Ratio 0.4 (1.0-2.7) Test 02/25/20 12:38 02/25/20 15:00 02/25/20 18:00 02/25/20 18:51 POC Whole Blood Glucose 244 MG/DL (74-106) 128 MG/DL (74-106) White Blood Count 19.5 K/UL (4.8-10.8) Red Blood Count 2.39 M/UL (4.20-5.40) Hemoglobin 6.8 G/DL (12.0-16.0) Hematocrit 21.6 % (37.0-47.0) Mean Corpuscular Volume 91 FL (80-99) Mean Corpuscular Hemoglobin 28.3 PG (27.0-31.0) Mean Corpuscular Hemoglobin Concent 31.3 G/DL (32.0-36.0) Red Cell Distribution Width 17.0 % (11.6-14.8) Platelet Count 464 K/UL (150-450) Mean Platelet Volume 5.9 FL (6.5-10.1) Neutrophils (%) (Auto) % (45.0-75.0) Lymphocytes (%) (Auto) % (20.0-45.0) Monocytes (%) (Auto) % (1.0-10.0) Eosinophils (%) (Auto) % (0.0-3.0) Basophils (%) (Auto) % (0.0-2.0) Differential Total Cells Counted 100 Neutrophils % (Manual) 96 % (45-75) Lymphocytes % (Manual) 1 % (20-45) Monocytes % (Manual) 3 % (1-10) Eosinophils % (Manual) 0 % (0-3) Basophils % (Manual) 0 % (0-2) Band Neutrophils 0 % (0-8) Platelet Estimate Adequate Platelet Morphology Normal Polychromasia 1+ Hypochromasia 2+ Anisocytosis 1+ Prothrombin Time 13.3 SEC (9.30-11.50) Prothromb Time International Ratio 1.2 (0.9-1.1) Random Vancomycin Level 10.1 ug/mL Test 02/26/20 05:15 02/27/20 03:40 White Blood Count 18.2 K/UL (4.8-10.8) 16.8 K/UL (4.8-10.8) Red Blood Count 2.58 M/UL (4.20-5.40) 2.31 M/UL (4.20-5.40) Hemoglobin 7.2 G/DL (12.0-16.0) 6.9 G/DL (12.0-16.0) Hematocrit 23.2 % (37.0-47.0) 20.1 % (37.0-47.0) Mean Corpuscular Volume 90 FL (80-99) 87 FL (80-99) Mean Corpuscular Hemoglobin 27.9 PG (27.0-31.0) 29.7 PG (27.0-31.0) Mean Corpuscular Hemoglobin Concent 31.1 G/DL (32.0-36.0) 34.2 G/DL (32.0-36.0) Red Cell Distribution Width 17.7 % (11.6-14.8) 18.8 % (11.6-14.8) Platelet Count 491 K/UL (150-450) 338 K/UL (150-450) Mean Platelet Volume 6.4 FL (6.5-10.1) 6.3 FL (6.5-10.1) Neutrophils (%) (Auto) % (45.0-75.0) % (45.0-75.0) Lymphocytes (%) (Auto) % (20.0-45.0) % (20.0-45.0) Monocytes (%) (Auto) % (1.0-10.0) % (1.0-10.0) Eosinophils (%) (Auto) % (0.0-3.0) % (0.0-3.0) Basophils (%) (Auto) % (0.0-2.0) % (0.0-2.0) Differential Total Cells Counted 100 Neutrophils % (Manual) 87 % (45-75) Lymphocytes % (Manual) 2 % (20-45) Monocytes % (Manual) 4 % (1-10) Eosinophils % (Manual) 0 % (0-3) Basophils % (Manual) 0 % (0-2) Band Neutrophils 7 % (0-8) Platelet Estimate Increased Platelet Morphology Normal Hypochromasia 2+ Anisocytosis 2+ Sodium Level 148 MMOL/L (136-145) 150 MMOL/L (136-145) Potassium Level 3.7 MMOL/L (3.5-5.1) 3.4 MMOL/L (3.5-5.1) Chloride Level 112 MMOL/L (98-107) 114 MMOL/L (98-107) Carbon Dioxide Level 29 MMOL/L (21-32) 28 MMOL/L (21-32) Anion Gap 7 mmol/L (5-15) Blood Urea Nitrogen 40 mg/dL (7-18) 42 mg/dL (7-18) Creatinine 1.4 MG/DL (0.55-1.30) 1.2 MG/DL (0.55-1.30) Estimat Glomerular Filtration Rate 46.5 mL/min (>60) 55.6 mL/min (>60) Glucose Level 267 MG/DL (74-106) 118 MG/DL (74-106) Calcium Level 7.8 MG/DL (8.5-10.1) 7.6 MG/DL (8.5-10.1) Total Bilirubin 0.6 MG/DL (0.2-1.0) 0.4 MG/DL (0.2-1.0) Direct Bilirubin 0.4 MG/DL (0.0-0.3) 0.2 MG/DL (0.0-0.3) Aspartate Amino Transf (AST/SGOT) 60 U/L (15-37) 84 U/L (15-37) Alanine Aminotransferase (ALT/SGPT) 29 U/L (12-78) 28 U/L (12-78) Alkaline Phosphatase 676 U/L (46-116) 577 U/L (46-116) Total Protein 6.6 G/DL (6.4-8.2) 5.9 G/DL (6.4-8.2) Albumin 1.9 G/DL (3.4-5.0) 1.7 G/DL (3.4-5.0) Globulin 4.7 g/dL 4.2 g/dL Albumin/Globulin Ratio 0.4 (1.0-2.7) 0.4 (1.0-2.7) Random Vancomycin Level 7.2 ug/mL Height (Feet): 5 Height (Inches): 1.00 Weight (Pounds): 168 Objective PHYSICAL EXAMINATION: GENERAL: An obese woman, seen in the ICU in her room. HEENT: Normocephalic and atraumatic. Sclerae are anicteric. NECK: Supple. ++vent CHEST: Exam revealed coarse breath sounds. CARDIOVASCULAR: Exam revealed a tachycardic heart rate. ABDOMEN: Soft, obese, and nontender. EXTREMITIES: Trace edema. Rodolfo Ohara MD Feb 27, 2020 07:25
--- NOTE | 2020-02-27 07:32 | NUR ---
NURSE HAND-OFF REPORT: Latest Vital Signs: Temperature 99.5 , Pulse 65 , B/P 151 /71 , Respiratory Rate 18 , O2 SAT 96 , Mechanical Ventilator, O2 Flow Rate . Vital Sign Comment: EKG Rhythm: Sinus Rhythm Rhythm change?: N Notified?: Jay briceño MD Response: Latest Pineda Fall Score: 50 Fall Risk: High Risk Safety Measures: Call light Within Reach, Bed Alarm Zone 1, Side Rails Side Rails x3, Bed position Low and Locked. Fall Precautions: Door Sign Report given to myke george using sbar .
--- NOTE | 2020-02-27 07:33 | NUR ---
NURSE NOTES: Received patient from JO-ANN Pate. Patient opens eyes when called by name; however, appears restless; observed shifting in bed; RASS noted +2 - fentanyl on max dose. Gag reflex is intact; pt is unable to follow simple commands; Bilat pupils equal and round 3mm with sluggish reactive to light. Patient is in Sinus Rhythm to traffic monitor specialist. Radial and dorsalis pedis pulses 2+. Non-pitting edema noted to hands. Capillary refill less than 2 sec. Patient is orally intubated with a 7.5 noted 25 cm at the lip with the following settings: AC 22 TV 550 FiO2 45% Peep 8. All lung ricketts noted diminished upon auscultation. OGT noted running Nepro at 35 cc/ml w/o gastric residuals. Bowel sounds are active to all quadrants. Abdomen appears roud, soft, and non-tender. Flores catheter noted draining yellow urine. Skin alterations noted. Patient has a right foot 22g peripheral IV heplock. And Right upper arm PICC line double lumen with IV running of fentanyl drip at 300 mcg/hr and 1/2 NS at 75 cc/hr. Bilateral soft wrist restraints noted - skin to both wrists intact without redness. Bed in lowest position, alarm on, side rails up x 2, call light within reach. Contact, droplet isolation observed. Will continue plan of care.
--- NOTE | 2020-02-27 07:44 | Critical Care Progress Note ---
Assessment/Plan Assessment/Plan IMPRESSION acute respiratory failure/ now on vent leukocytosis sepsis ARF toxic met encephalopathy COPD DM poor control cavitary lesion negative AFB groundglass infiltrates NSTEMI severe PCM hypertension left shoulder pain bacteremia MRSA hematuria COVID anemia diabetes s/p respiratory cod PLAN DVT prophylaxis for now; reduce lovenox transfuse antibiotics per ID titrate BP meds vent support- consider wean monitor acid base NGT monitor lytes feeds maintain support monitor LOC critical sedate as needed medications/laboratory data/nursing notes/ICU care reviewed in detail note reviewed and edited care discussed with RN and RT ICU time spent >40 minutes Critical Care - Subjective Interval Events: care noted anemic oxygenation better ROS Limited/Unobtainable: Yes Condition: critical EKG Rhythm: Sinus Rhythm Residuals: minimal Tube Feeding Tolerated: yes I&O: Intake and Output 02/26/20 02/27/20 19:00 07:00 Intake Total 1623.25 ml 2025 ml Output Total 625 ml 620 ml Balance 998.25 ml 1405 ml Free Water 30 ml 50 ml IV Total 1173.25 ml 1555 ml Tube Feeding 420 ml 420 ml Output Urine Total 625 ml 620 ml Critical Care - Objective ET-Tube: 7.5 ET Position: 25 Last 24 Hour Vital Signs Date Time Temp Pulse Resp B/P (MAP) Pulse Ox O2 Delivery O2 Flow Rate FiO2 02/27/20 07:15 18 151/71 Mechanical Ventilator 45 02/27/20 07:00 65 0 143/69 (93) 96 02/27/20 06:15 20 142/71 Mechanical Ventilator 60 02/27/20 06:00 88 0 154/73 (100) 93 02/27/20 05:18 20 136/64 Mechanical Ventilator 60 02/27/20 05:15 20 165/64 Mechanical Ventilator 60 02/27/20 05:00 101 14 149/120 (130) 97 02/27/20 04:45 20 144/74 Mechanical Ventilator 60 02/27/20 04:00 99.5 88 0 142/71 (94) 97 02/27/20 04:00 Mechanical Ventilator 02/27/20 04:00 50 02/27/20 04:00 74 02/27/20 03:33 89 20 168/99 98 02/27/20 03:27 84 23 100 Mechanical Ventilator 45 81 23 45 02/27/20 03:15 20 156/79 Mechanical Ventilator 60 02/27/20 03:03 125 28 156/139 99 02/27/20 03:00 121 21 140/70 (93) 99 02/27/20 02:15 18 139/65 Mechanical Ventilator 60 02/27/20 02:00 58 0 139/65 (89) 99 02/27/20 01:15 18 142/66 Mechanical Ventilator 60 02/27/20 01:02 84 18 146/64 98 02/27/20 01:00 62 0 145/68 (93) 99 02/27/20 00:32 87 22 174/94 100 02/27/20 00:15 22 174/91 Mechanical Ventilator 60 02/27/20 00:00 50 02/27/20 00:00 98.6 87 0 177/84 (115) 02/27/20 00:00 Mechanical Ventilator 02/27/20 00:00 83 02/26/20 23:15 20 154/64 Mechanical Ventilator 02/26/20 23:00 89 22 100 Mechanical Ventilator 50 88 22 50 02/26/20 23:00 97 13 181/88 (119) 92 02/26/20 22:15 20 145/64 Mechanical Ventilator 60 02/26/20 22:00 66 0 145/73 (97) 100 02/26/20 21:15 20 145/73 Mechanical Ventilator 60 02/26/20 21:00 56 0 132/64 (86) 100 66 02/26/20 20:46 71 145/77 02/26/20 20:15 20 145/64 Mechanical Ventilator 60 02/26/20 20:00 71 02/26/20 20:00 97.8 60 0 141/68 (92) 100 71 02/26/20 20:00 Mechanical Ventilator 02/26/20 20:00 50 02/26/20 19:23 74 22 100 Mechanical Ventilator 50 76 22 50 02/26/20 19:15 22 137/77 Mechanical Ventilator 50 02/26/20 19:00 60 0 137/77 (97) 98 02/26/20 18:30 88 22 153/80 (104) 94 02/26/20 18:15 22 138/68 Mechanical Ventilator 50 02/26/20 18:14 22 138/68 Mechanical Ventilator 50 02/26/20 18:00 61 22 138/68 (91) 98 02/26/20 17:30 60 22 133/66 (88) 99 02/26/20 17:15 22 149/69 Mechanical Ventilator 50 02/26/20 17:00 74 22 149/69 (95) 98 02/26/20 16:30 106 13 166/94 (118) 93 02/26/20 16:23 50 02/26/20 16:15 22 131/65 Mechanical Ventilator 60 02/26/20 16:00 76 02/26/20 16:00 97.9 77 22 131/65 (87) 100 02/26/20 16:00 Mechanical Ventilator 02/26/20 15:36 60 02/26/20 15:30 85 22 140/68 (92) 100 02/26/20 15:28 75 22 100 Mechanical Ventilator 50 80 22 50 02/26/20 15:15 22 140/68 Mechanical Ventilator 65 02/26/20 15:05 85 22 140/68 100 02/26/20 15:00 118 15 198/102 (134) 100 02/26/20 14:37 82 22 200/79 100 02/26/20 14:36 200/79 02/26/20 14:30 103 13 200/79 (119) 100 02/26/20 14:15 22 194/79 Mechanical Ventilator 65 02/26/20 14:00 104 22 132/65 (87) 100 02/26/20 13:30 61 22 129/63 (85) 100 02/26/20 13:15 22 129/63 Mechanical Ventilator 65 02/26/20 13:00 61 22 134/67 (89) 100 02/26/20 12:30 66 22 137/66 (89) 100 02/26/20 12:15 22 137/66 Mechanical Ventilator 65 02/26/20 12:00 98 02/26/20 12:00 Mechanical Ventilator 02/26/20 12:00 98.9 71 22 138/67 (90) 98 02/26/20 11:57 65 02/26/20 11:30 61 22 137/69 (91) 96 02/26/20 11:19 68 22 65 02/26/20 11:15 22 137/69 Mechanical Ventilator 60 02/26/20 11:00 62 22 141/70 (93) 96 02/26/20 10:30 64 21 139/67 (91) 96 02/26/20 10:15 22 139/67 Mechanical Ventilator 60 02/26/20 10:00 68 22 146/73 (97) 98 02/26/20 09:30 75 18 142/71 (94) 98 02/26/20 09:15 22 142/71 Mechanical Ventilator 60 02/26/20 09:00 99.0 76 20 134/66 (88) 98 02/26/20 08:51 99.0 02/26/20 08:30 122 17 163/88 (113) 97 02/26/20 08:25 98 22 163/83 100 02/26/20 08:15 22 163/88 Mechanical Ventilator 60 02/26/20 08:01 88 166/70 02/26/20 08:00 87 02/26/20 08:00 60 02/26/20 08:00 166/70 02/26/20 08:00 166/70 02/26/20 08:00 88 166/70 02/26/20 08:00 Mechanical Ventilator 02/26/20 08:00 101.0 89 22 169/70 (103) 100 02/26/20 07:55 88 20 166/70 100 Labs: Laboratory Tests 02/27/20 03:40: White Blood Count 16.8H, Red Blood Count 2.31L, Hemoglobin 6.9*L, Hematocrit 20 .1L, Mean Corpuscular Volume 87, Mean Corpuscular Hemoglobin 29.7, Mean Corpuscular Hemoglobin Concent 34.2, Red Cell Distribution Width 18.8H, Platelet Count 338, Mean Platelet Volume 6.3L, Neutrophils (%) (Auto) , Lymphocytes (%) (Auto) , Monocytes (%) (Auto) , Eosinophils (%) (Auto) , Basophils (%) (Auto) , Neutrophils % (Manual) [Pending], Lymphocytes % (Manual) [Pending], Platelet Estimate [Pending], Platelet Morphology [Pending], Sodium Level 150H, Potassium Level 3.4L, Chloride Level 114H, Carbon Dioxide Level 28, Blood Urea Nitrogen 42H, Creatinine 1.2, Estimat Glomerular Filtration Rate 55.6, Glucose Level 118#H, Calcium Level 7.6L, Total Bilirubin 0.4, Direct Bilirubin 0.2, Aspartate Amino Transf (AST/SGOT) 84H, Alanine Aminotransferase (ALT/SGPT) 28, Alkaline Phosphatase 577H, Total Protein 5.9L, Albumin 1.7L, Globulin 4.2, Albumin/Globulin Ratio 0.4L, Random Vancomycin Level 7.2 Objective: deferred due to COVID Accucheck: 118 Germán Feliz MD Feb 27, 2020 07:43
[2020-02-27] MEDS: Enoxaparin 80mg Inj SUBQ SCH ×2 (08:36→21:00)
[2020-02-27] MEDS: Aspirin Baby 81mg NG SCH (08:36)
[2020-02-27] MEDS: Imdur 30mg tab ORAL SCH (08:45)
[2020-02-27] MEDS: Solu-MEDROL 40mg Inj IVP SCH ×2 (08:45→20:52)
[2020-02-27] MEDS: Multivitamins W/Minerals 15 ML UDC NG SCH (08:45)
[2020-02-27] MEDS: Pantoprazole Inj IVP SCH ×2 (08:45→20:51)
[2020-02-27] MEDS: Levemir Flexpen SUBQ SCH ×2 (09:13→21:19)
--- NOTE | 2020-02-27 09:15 | General Progress Note ---
Subjective Date patient seen: Feb 27, 2020 Time patient seen: 08:45 - am ROS Limited/Unobtainable: Yes Allergies: Coded Allergies: No Known Allergies (Unverified , 07/30/15) Subjective HISTORY OF PRESENT ILLNESS: This is a 59-year-old female who is being seen on the ICU of [facility]. Patient on vent intubated. No signs of pain or distress. Objective Last 24 Hour Vital Signs Date Time Temp Pulse Resp B/P (MAP) Pulse Ox O2 Delivery O2 Flow Rate FiO2 02/27/20 08:45 80 142/122 02/27/20 08:45 80 142/122 02/27/20 08:45 142/122 02/27/20 08:00 45 02/27/20 08:00 99.0 80 0 142/122 (129) 96 02/27/20 08:00 Mechanical Ventilator 02/27/20 07:30 76 02/27/20 07:15 18 151/71 Mechanical Ventilator 45 02/27/20 07:00 65 0 143/69 (93) 96 02/27/20 06:15 20 142/71 Mechanical Ventilator 60 02/27/20 06:00 88 0 154/73 (100) 93 02/27/20 05:18 20 136/64 Mechanical Ventilator 60 02/27/20 05:15 20 165/64 Mechanical Ventilator 60 02/27/20 05:00 101 14 149/120 (130) 97 02/27/20 04:45 20 144/74 Mechanical Ventilator 60 02/27/20 04:00 99.5 88 0 142/71 (94) 97 02/27/20 04:00 Mechanical Ventilator 02/27/20 04:00 50 02/27/20 04:00 74 02/27/20 03:33 89 20 168/99 98 02/27/20 03:27 84 23 100 Mechanical Ventilator 45 81 23 45 02/27/20 03:15 20 156/79 Mechanical Ventilator 60 02/27/20 03:03 125 28 156/139 99 02/27/20 03:00 121 21 140/70 (93) 99 02/27/20 02:15 18 139/65 Mechanical Ventilator 60 02/27/20 02:00 58 0 139/65 (89) 99 02/27/20 01:15 18 142/66 Mechanical Ventilator 60 02/27/20 01:02 84 18 146/64 98 12/1/20 01:00 62 0 145/68 (93) 99 02/27/20 00:32 87 22 174/94 100 02/27/20 00:15 22 174/91 Mechanical Ventilator 60 02/27/20 00:00 50 02/27/20 00:00 98.6 87 0 177/84 (115) 02/27/20 00:00 Mechanical Ventilator 02/27/20 00:00 83 02/26/20 23:15 20 154/64 Mechanical Ventilator 02/26/20 23:00 89 22 100 Mechanical Ventilator 50 88 22 50 02/26/20 23:00 97 13 181/88 (119) 92 02/26/20 22:15 20 145/64 Mechanical Ventilator 60 02/26/20 22:00 66 0 145/73 (97) 100 02/26/20 21:15 20 145/73 Mechanical Ventilator 60 02/26/20 21:00 56 0 132/64 (86) 100 66 02/26/20 20:46 71 145/77 02/26/20 20:15 20 145/64 Mechanical Ventilator 60 02/26/20 20:00 71 02/26/20 20:00 97.8 60 0 141/68 (92) 100 71 02/26/20 20:00 Mechanical Ventilator 02/26/20 20:00 50 02/26/20 19:23 74 22 100 Mechanical Ventilator 50 76 22 50 02/26/20 19:15 22 137/77 Mechanical Ventilator 50 02/26/20 19:00 60 0 137/77 (97) 98 02/26/20 18:30 88 22 153/80 (104) 94 02/26/20 18:15 22 138/68 Mechanical Ventilator 50 02/26/20 18:14 22 138/68 Mechanical Ventilator 50 02/26/20 18:00 61 22 138/68 (91) 98 02/26/20 17:30 60 22 133/66 (88) 99 02/26/20 17:15 22 149/69 Mechanical Ventilator 50 02/26/20 17:00 74 22 149/69 (95) 98 02/26/20 16:30 106 13 166/94 (118) 93 02/26/20 16:23 50 02/26/20 16:15 22 131/65 Mechanical Ventilator 60 02/26/20 16:00 76 02/26/20 16:00 97.9 77 22 131/65 (87) 100 02/26/20 16:00 Mechanical Ventilator 02/26/20 15:36 60 02/26/20 15:30 85 22 140/68 (92) 100 02/26/20 15:28 75 22 100 Mechanical Ventilator 50 80 22 50 02/26/20 15:15 22 140/68 Mechanical Ventilator 65 02/26/20 15:05 85 22 140/68 100 02/26/20 15:00 118 15 198/102 (134) 100 02/26/20 14:37 82 22 200/79 100 02/26/20 14:36 200/79 02/26/20 14:30 103 13 200/79 (119) 100 02/26/20 14:15 22 194/79 Mechanical Ventilator 65 02/26/20 14:00 104 22 132/65 (87) 100 02/26/20 13:30 61 22 129/63 (85) 100 02/26/20 13:15 22 129/63 Mechanical Ventilator 65 02/26/20 13:00 61 22 134/67 (89) 100 02/26/20 12:30 66 22 137/66 (89) 100 02/26/20 12:15 22 137/66 Mechanical Ventilator 65 02/26/20 12:00 98 02/26/20 12:00 Mechanical Ventilator 02/26/20 12:00 98.9 71 22 138/67 (90) 98 02/26/20 11:57 65 02/26/20 11:30 61 22 137/69 (91) 96 02/26/20 11:19 68 22 65 02/26/20 11:15 22 137/69 Mechanical Ventilator 60 02/26/20 11:00 62 22 141/70 (93) 96 02/26/20 10:30 64 21 139/67 (91) 96 02/26/20 10:15 22 139/67 Mechanical Ventilator 60 02/26/20 10:00 68 22 146/73 (97) 98 02/26/20 09:30 75 18 142/71 (94) 98 02/26/20 09:15 22 142/71 Mechanical Ventilator 60 Intake and Output 02/26/20 02/27/20 19:00 07:00 Intake Total 1623.25 ml 2025 ml Output Total 625 ml 620 ml Balance 998.25 ml 1405 ml Free Water 30 ml 50 ml IV Total 1173.25 ml 1555 ml Tube Feeding 420 ml 420 ml Output Urine Total 625 ml 620 ml Laboratory Tests 02/27/20 03:40: White Blood Count 16.8H, Red Blood Count 2.31L, Hemoglobin 6.9*L, Hematocrit 20.1L, Mean Corpuscular Volume 87, Mean Corpuscular Hemoglobin 29.7, Mean Corpuscular Hemoglobin Concent 34.2, Red Cell Distribution Width 18.8H, Platelet Count 338, Mean Platelet Volume 6.3L, Neutrophils (%) (Auto) , Lymphocytes (%) (Auto) , Monocytes (%) (Auto) , Eosinophils (%) (Auto) , Basophils (%) (Auto) , Neutrophils % (Manual) [Pending], Lymphocytes % (Manual) [Pending], Platelet Estimate [Pending], Platelet Morphology [Pending], Sodium Level 150H, Potassium Level 3.4L, Chloride Level 114H, Carbon Dioxide Level 28, Blood Urea Nitrogen 42H, Creatinine 1.2, Estimat Glomerular Filtration Rate 55.6, Glucose Level 118#H, Calcium Level 7.6L, Total Bilirubin 0.4, Direct Bilirubin 0.2, Aspartate Amino Transf (AST/SGOT) 84H, Alanine Aminotransferase (ALT/SGPT) 28, Alkaline P hosphatase 577H, Total Protein 5.9L, Albumin 1.7L, Globulin 4.2, Albumin/Globulin Ratio 0.4L, Random Vancomycin Level 7.2 Height (Feet): 5 Height (Inches): 1.00 Weight (Pounds): 168 Objective PHYSICAL EXAMINATION: GENERAL: Intubated. LUNGS: Decreased breath sounds bilaterally. HEART: S1 and S2 tachy ABDOMEN: Obese. Assessment/Plan Assessment/Plan: (1) Cervical DDD (2) Cervical Spondylosis (3) Covid 19 + (4) S/p Code blue and intubation on vent Patient to have sedation as per [employer]. Pain management will sign off of patients care at this time, once patients condition stabilizes and has c/o pain, do not hesitate to reconsult. Thank you D/w Dr. Landa and he concurred. Monster Corey Feb 27, 2020 09:15
--- NOTE | 2020-02-27 09:30 | NUR ---
NURSE NOTES: Dr. Feliz in the unit. Informed MD that 2 PRBC order is noted, and just waiting for blood to be available from blood bank.
--- NOTE | 2020-02-27 10:30 | NUR ---
NURSE NOTES: Dr. Lopez at bedside.
--- NOTE | 2020-02-27 10:50 | NUR ---
NURSE NOTES: Started blood transfusion of PRBC. Vital signs stable. Will monitor for adverse transfusion reaction.
--- NOTE | 2020-02-27 12:07 | Infectious Diseases Prog Note ---
Assessment/Plan Assessment/Plan antibiotics : vancomycin iv, remdesivir A 1. MRSA cavitary pneumonia sputum AFB negative x 3 2. MRSA sepsis r/o endocarditis 3. diabetes mellitus 4. hypertension 5. COPD 6. respiratory failure 7. aortic stenosis 8. COVID 19 pneumonia improving on 45 percent FiO2, PEEP 8, saturation 96 % s/p ivermectin 11.27.20 P 1. continue iv vancomycin 16 more days 2. complete remdesivir day 10 3. continue solumedrol 4. will follow up cultures 5. continue isolation Subjective ROS Limited/Unobtainable: Yes Allergies: Coded Allergies: No Known Allergies (Unverified , 07/30/15) Objective Last 24 Hour Vital Signs Date Time Temp Pulse Resp B/P (MAP) Pulse Ox O2 Delivery O2 Flow Rate FiO2 02/27/20 12:00 99.3 88 21 167/83 (111) 96 02/27/20 12:00 45 02/27/20 12:00 Mechanical Ventilator 02/27/20 11:33 94 02/27/20 11:15 18 146/80 Mechanical Ventilator 45 02/27/20 11:01 85 22 100 Mechanical Ventilator 45 84 22 45 02/27/20 11:00 81 16 146/80 (102) 100 02/27/20 10:15 16 153/76 Mechanical Ventilator 45 02/27/20 10:00 95 0 153/76 (101) 94 02/27/20 09:15 16 178/105 Mechanical Ventilator 45 02/27/20 09:00 125 16 178/105 (129) 90 02/27/20 08:45 80 142/122 02/27/20 08:45 80 142/122 02/27/20 08:45 142/122 02/27/20 08:15 16 142/122 Mechanical Ventilator 45 02/27/20 08:00 45 02/27/20 08:00 99.0 80 0 142/122 (129) 96 02/27/20 08:00 Mechanical Ventilator 02/27/20 07:30 76 02/27/20 07:29 86 22 45 02/27/20 07:15 18 151/71 Mechanical Ventilator 45 02/27/20 07:00 65 0 143/69 (93) 96 02/27/20 06:15 20 142/71 Mechanical Ventilator 60 02/27/20 06:00 88 0 154/73 (100) 93 02/27/20 05:18 20 136/64 Mechanical Ventilator 60 02/27/20 05:15 20 165/64 Mechanical Ventilator 60 02/27/20 05:00 101 14 149/120 (130) 97 02/27/20 04:45 20 144/74 Mechanical Ventilator 60 02/27/20 04:00 99.5 88 0 142/71 (94) 97 02/27/20 04:00 Mechanical Ventilator 02/27/20 04:00 50 02/27/20 04:00 74 02/27/20 03:33 89 20 168/99 98 02/27/20 03:27 84 23 100 Mechanical Ventilator 45 81 23 45 02/27/20 03:15 20 156/79 Mechanical Ventilator 60 02/27/20 03:03 125 28 156/139 99 02/27/20 03:00 121 21 140/70 (93) 99 02/27/20 02:15 18 139/65 Mechanical Ventilator 60 02/27/20 02:00 58 0 139/65 (89) 99 02/27/20 01:15 18 142/66 Mechanical Ventilator 60 02/27/20 01:02 84 18 146/64 98 02/27/20 01:00 62 0 145/68 (93) 99 02/27/20 00:32 87 22 174/94 100 02/27/20 00:15 22 174/91 Mechanical Ventilator 60 02/27/20 00:00 50 02/27/20 00:00 98.6 87 0 177/84 (115) 02/27/20 00:00 Mechanical Ventilator 02/27/20 00:00 83 02/26/20 23:15 20 154/64 Mechanical Ventilator 02/26/20 23:00 89 22 100 Mechanical Ventilator 50 88 22 50 02/26/20 23:00 97 13 181/88 (119) 92 02/26/20 22:15 20 145/64 Mechanical Ventilator 60 02/26/20 22:00 66 0 145/73 (97) 100 02/26/20 21:15 20 145/73 Mechanical Ventilator 60 02/26/20 21:00 56 0 132/64 (86) 100 66 02/26/20 20:46 71 145/77 02/26/20 20:15 20 145/64 Mechanical Ventilator 60 02/26/20 20:00 71 02/26/20 20:00 97.8 60 0 141/68 (92) 100 71 02/26/20 20:00 Mechanical Ventilator 02/26/20 20:00 50 02/26/20 19:23 74 22 100 Mechanical Ventilator 50 76 22 50 02/26/20 19:15 22 137/77 Mechanical Ventilator 50 02/26/20 19:00 60 0 137/77 (97) 98 02/26/20 18:30 88 22 153/80 (104) 94 02/26/20 18:15 22 138/68 Mechanical Ventilator 50 02/26/20 18:14 22 138/68 Mechanical Ventilator 50 02/26/20 18:00 61 22 138/68 (91) 98 02/26/20 17:30 60 22 133/66 (88) 99 02/26/20 17:15 22 149/69 Mechanical Ventilator 50 02/26/20 17:00 74 22 149/69 (95) 98 02/26/20 16:30 106 13 166/94 (118) 93 02/26/20 16:23 50 02/26/20 16:15 22 131/65 Mechanical Ventilator 60 02/26/20 16:00 76 02/26/20 16:00 97.9 77 22 131/65 (87) 100 02/26/20 16:00 Mechanical Ventilator 02/26/20 15:36 60 02/26/20 15:30 85 22 140/68 (92) 100 02/26/20 15:28 75 22 100 Mechanical Ventilator 50 80 22 50 02/26/20 15:15 22 140/68 Mechanical Ventilator 65 02/26/20 15:05 85 22 140/68 100 02/26/20 15:00 118 15 198/102 (134) 100 02/26/20 14:37 82 22 200/79 100 02/26/20 14:36 200/79 02/26/20 14:30 103 13 200/79 (119) 100 02/26/20 14:15 22 194/79 Mechanical Ventilator 65 02/26/20 14:00 104 22 132/65 (87) 100 02/26/20 13:30 61 22 129/63 (85) 100 02/26/20 13:15 22 129/63 Mechanical Ventilator 65 02/26/20 13:00 61 22 134/67 (89) 100 02/26/20 12:30 66 22 137/66 (89) 100 02/26/20 12:15 22 137/66 Mechanical Ventilator 65 Height (Feet): 5 Height (Inches): 1.00 Weight (Pounds): 168 HEENT: other - intubated Laboratory Tests Test 02/27/20 03:40 White Blood Count 16.8 K/UL (4.8-10.8) H Red Blood Count 2.31 M/UL (4.20-5.40) L Hemoglobin 6.9 G/DL (12.0-16.0) *L Hematocrit 20.1 % (37.0-47.0) L Mean Corpuscular Volume 87 FL (80-99) Mean Corpuscular Hemoglobin 29.7 PG (27.0-31.0) Mean Corpuscular Hemoglobin Concent 34.2 G/DL (32.0-36.0) Red Cell Distribution Width 18.8 % (11.6-14.8) H Platelet Count 338 K/UL (150-450) Mean Platelet Volume 6.3 FL (6.5-10.1) L Neutrophils (%) (Auto) % (45.0-75.0) Lymphocytes (%) (Auto) % (20.0-45.0) Monocytes (%) (Auto) % (1.0-10.0) Eosinophils (%) (Auto) % (0.0-3.0) Basophils (%) (Auto) % (0.0-2.0) Differential Total Cells Counted 100 Neutrophils % (Manual) 94 % (45-75) H Lymphocytes % (Manual) 2 % (20-45) L Monocytes % (Manual) 4 % (1-10) Eosinophils % (Manual) 0 % (0-3) Basophils % (Manual) 0 % (0-2) Band Neutrophils 0 % (0-8) Platelet Estimate Adequate Platelet Morphology Normal Polychromasia 1+ Hypochromasia 1+ Anisocytosis 2+ Sodium Level 150 MMOL/L (136-145) H Potassium Level 3.4 MMOL/L (3.5-5.1) L Chloride Level 114 MMOL/L (98-107) H Carbon Dioxide Level 28 MMOL/L (21-32) Blood Urea Nitrogen 42 mg/dL (7-18) H Creatinine 1.2 MG/DL (0.55-1.30) Estimat Glomerular Filtration Rate 55.6 mL/min (>60) Glucose Level 118 MG/DL (74-106) #H Calcium Level 7.6 MG/DL (8.5-10.1) L Total Bilirubin 0.4 MG/DL (0.2-1.0) Direct Bilirubin 0.2 MG/DL (0.0-0.3) Aspartate Amino Transf (AST/SGOT) 84 U/L (15-37) H Alanine Aminotransferase (ALT/SGPT) 28 U/L (12-78) Alkaline Phosphatase 577 U/L (46-116) H Total Protein 5.9 G/DL (6.4-8.2) L Albumin 1.7 G/DL (3.4-5.0) L Globulin 4.2 g/dL Albumin/Globulin Ratio 0.4 (1.0-2.7) L Random Vancomycin Level 7.2 ug/mL Current Medications Medications (Trade) Dose Ordered Sig/Ivana Route PRN Reason Start Time Stop Time Status Last Admin Dose Admin Acetaminophen (Tylenol) 650 mg EVERY 6 HOURS PRN NG Mild Pain (Pain Scale 1-3) 02/27/20 07:45 03/28/20 07:44 Acetaminophen (Tylenol) 650 mg Q6H PRN ORAL Mild Pain (Pain Scale 1-3) 02/22/20 16:15 03/23/20 16:14 02/25/20 20:53 Amlodipine Besylate (Norvasc) 10 mg DAILY NG 02/27/20 09:00 03/02/20 08:59 02/27/20 08:45 Aspirin (ASA) 81 mg DAILY NG 02/27/20 09:00 03/30/20 08:59 Chlorhexidine Gluconate (Divina-Hex 2%) 1 applic DAILY@1999 TOPIC 02/26/20 20:00 05/26/20 19:59 02/26/20 20:05 Clonidine HCl (Catapres Tab) 0.1 mg Q4H PRN ORAL SBP > 150mmHg 02/06/20 07:00 05/06/20 06:59 02/26/20 14:36 Dextrose (Dextrose 50%) 25 ml Q30M PRN IV Hypoglycemia 01/28/20 22:45 04/27/20 22:44 Dextrose (Dextrose 50%) 50 ml Q30M PRN IV Hypoglycemia 01/28/20 22:45 04/27/20 22:44 Enoxaparin Sodium (Lovenox) 80 mg Q12HR SUBQ 02/13/20 18:54 05/13/20 18:53 02/24/20 20:18 Epoetin Haseeb (Epoetin Haseeb-EPBX(NON ESRD)) 8,000 unit WED-WED-WED SUBQ 02/05/20 21:00 05/05/20 20:59 02/26/20 20:47 Fentanyl Citrate 250 ml @ 1 mls/hr Q24H IV 02/25/20 21:45 02/27/20 21:44 02/27/20 04:45 Guaifenesin/ Dextromethorphan (Robitussin DM Syrup) 15 ml Q4H PRN ORAL For Cough 02/12/20 16:53 05/12/20 16:52 02/19/20 22:21 Insulin Aspart (NovoLOG) Q6HR SUBQ 01/29/20 00:00 04/28/20 00:00 02/26/20 23:58 Insulin Detemir (Levemir) 10 units EVERY 12 HOURS SUBQ 02/27/20 09:00 05/04/20 17:59 02/27/20 09:13 Ipratropium Whitmer (Atrovent Inh) 1 puffs Q4H INH 02/18/20 18:00 03/19/20 17:59 02/27/20 10:36 Isosorbide Mononitrate (Imdur) 30 mg DAILY ORAL 02/02/20 09:00 03/03/20 08:59 02/27/20 08:45 Lidocaine (Lidoderm 5% PATCH) 1 patch DAILY TDERMAL 02/11/20 09:30 05/11/20 09:29 02/27/20 08:45 Lorazepam (Ativan 2mg/ml 1ml) 1 mg Q2H PRN IV Agitation 02/23/20 05:15 03/01/20 05:14 02/27/20 03:03 Lorazepam (Ativan) 1 mg Q4H PRN ORAL For Anxiety 02/21/20 22:15 03/04/20 22:14 02/25/20 20:52 Methocarbamol (Robaxin) 500 mg Q8H PRN ORAL muscle spasm 02/11/20 09:30 03/12/20 09:29 02/21/20 05:13 Methylprednisolone Sodium Succinate (Solu-MEDROL) 40 mg Q12HR IVP 02/26/20 21:00 03/07/20 20:59 02/27/20 08:45 Metoprolol Tartrate (Lopressor) 25 mg Q12HR NG 02/27/20 09:00 05/04/20 20:59 02/27/20 08:45 Morphine Sulfate (Morphine Sulfate) 2 mg Q2H PRN IVP For Pain 4-10 02/24/20 15:00 03/02/20 14:59 02/26/20 14:36 Multivitamins (Multivitamins W/ Minerals 15ml Liquid) 15 ml DAILY NG 02/27/20 09:00 03/28/20 08:59 02/27/20 08:45 Nitroglycerin (Ntg) 0.4 mg Q5M PRN SL Prn Chest Pain 02/01/20 08:00 03/02/20 07:59 02/21/20 14:57 Ondansetron HCl (Zofran) 4 mg Q6H PRN IVP Nausea & Vomiting 01/28/20 22:45 02/27/20 22:44 02/01/20 18:10 Pantoprazole (Protonix) 40 mg EVERY 12 HOURS IVP 02/25/20 10:00 03/24/20 08:59 02/27/20 08:45 Remdesivir 100 mg/ Sodium Chloride 250 ml @ 250 mls/hr Q24H IV 02/23/20 18:00 02/27/20 18:59 02/26/20 18:03 Sodium Chloride 1,000 ml @ 75 mls/hr [id number] IV 02/24/20 16:00 03/25/20 15:59 02/27/20 09:14 Vancomycin HCl ([facility] to dose) 1 ea DAILY PRN MISC Per rx protocol 02/13/20 11:30 03/14/20 11:29 Messi Lopez MD Feb 27, 2020 12:07
--- NOTE | 2020-02-27 12:50 | NUR ---
NURSE NOTES: Dr. Trinidad in the unit. Informed MD that patient's blood pressure is been high, SBP above 160. MD said that he will check patient's chart.
--- NOTE | 2020-02-27 13:00 | NUR ---
NURSE NOTES: 1 PRBC transfused. No adverse transfusion reaction observed.
[2020-02-27] MEDS: Acetaminophen 650mg/20.3ml NG PRN (14:48)
--- NOTE | 2020-02-27 15:00 | NUR ---
NURSE NOTES: Bedbath provided by 2 staff. Bilateral soft wrist restraints remains inplace. Patient remains slightyl sedated.
--- NOTE | 2020-02-27 15:57 | NUR ---
CASE MANAGEMENT:REVIEW SI;RESPIRATORY FAILURE~ORALLY INTUBATED. SEPSIS. AC RENAL FAILURE. N-STEMI. BACTEREMIA. 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
--- NOTE | 2020-02-27 16:20 | NUR ---
NURSE NOTES: Started second order of PRBC. Vital signs stable. Will monitor for blood transfusion reaction.
[2020-02-27] MEDS: Maintenance Dose:Remdesivir 100mg/NS 230ml x 4 Doses IV SCH ×2 (19:00)
--- NOTE | 2020-02-27 19:00 | NUR ---
NURSE NOTES: Second unit of PRBC transfused. No adverse transfusion reaction observed.
--- NOTE | 2020-02-27 19:10 | NUR ---
NURSE HAND-OFF REPORT: Latest Vital Signs: Temperature 99.4 , Pulse 101 , B/P 166 /84 , Respiratory Rate 21 , O2 SAT 97 , Mechanical Ventilator, O2 Flow Rate . Vital Sign Comment: On continuous fentanyl drip. EKG Rhythm: Sinus Tachycardia Rhythm change?: N Latest Pineda Fall Score: 50 Fall Risk: High Risk Safety Measures: Call light Within Reach, Bed Alarm Zone 1, Side Rails Side Rails x3, Bed position Low and Locked. Fall Precautions: Door Sign Report given to Herlinda England RN.
--- NOTE | 2020-02-27 19:35 | NUR ---
NURSE NOTES RECEIVED FROM EDGARD RN PT ORALLY INTUBATED -VENT O2 SAT 100% ON CHRISTIAN SOFT RESTRAINT NAN COMPLAINT TOLERATING TUBE FEEDING NO RESIDUAL IV INFUSING RT UA DRESSING DRY AND INTACT REPOSITION AND SUCTION URINARY OUT PUT GOOD
[2020-02-27] MEDS: Dyna-Hex 2% Top Sol 2oz TOPIC SCH (20:51)
--- NOTE | 2020-02-27 21:29 | General Progress Note ---
Subjective Allergies: Coded Allergies: No Known Allergies (Unverified , 07/30/15) Subjective Above noted sedated tolerating TF H&H lower - transfused albumin lower RD recs noted Objective Last 24 Hour Vital Signs Date Time Temp Pulse Resp B/P (MAP) Pulse Ox O2 Delivery O2 Flow Rate FiO2 02/27/20 21:07 126 33 171/118 100 02/27/20 20:55 20 146/64 45 02/27/20 20:53 84 146/64 02/27/20 20:00 Mechanical Ventilator 02/27/20 20:00 99.6 80 0 143/68 (93) 99 02/27/20 20:00 84 02/27/20 19:18 20 151/61 Mechanical Ventilator 45 02/27/20 19:00 99.4 101 21 166/84 (111) 97 02/27/20 18:57 103 22 100 Mechanical Ventilator 45 100 22 45 02/27/20 18:18 17 153/73 Mechanical Ventilator 45 02/27/20 18:00 94 17 153/73 (99) 98 02/27/20 17:45 90 16 149/91 (110) 98 02/27/20 17:30 92 21 158/74 (102) 99 02/27/20 17:18 17 173/104 Mechanical Ventilator 45 02/27/20 17:15 102 16 173/104 (127) 93 02/27/20 17:00 107 3 172/84 (113) 95 02/27/20 16:45 92 0 149/75 (99) 97 02/27/20 16:35 45 02/27/20 16:30 102 0 160/80 (106) 92 02/27/20 16:18 17 168/94 Mechanical Ventilator 45 02/27/20 16:15 110 17 168/94 (118) 97 02/27/20 16:00 45 02/27/20 16:00 100.4 95 22 149/76 (100) 100 02/27/20 16:00 Mechanical Ventilator 02/27/20 15:27 94 22 45 02/27/20 15:22 95 02/27/20 15:18 21 167/68 Mechanical Ventilator 45 02/27/20 15:00 78 21 167/68 (101) 99 02/27/20 14:29 76 14 172/74 99 02/27/20 14:18 21 189/79 Mechanical Ventilator 45 02/27/20 14:00 97 22 189/79 (115) 94 02/27/20 13:59 115 24 163/84 92 02/27/20 13:30 99 22 163/84 (110) 94 02/27/20 13:18 16 160/76 Mechanical Ventilator 45 02/27/20 13:00 84 22 160/76 (104) 99 02/27/20 12:18 24 181/109 Mechanical Ventilator 45 02/27/20 12:15 24 167/83 Mechanical Ventilator 45 02/27/20 12:00 99.3 88 21 167/83 (111) 96 02/27/20 12:00 45 02/27/20 12:00 Mechanical Ventilator 02/27/20 11:33 94 02/27/20 11:15 18 146/80 Mechanical Ventilator 45 02/27/20 11:01 85 22 100 Mechanical Ventilator 45 84 22 45 02/27/20 11:00 81 16 146/80 (102) 100 02/27/20 10:15 16 153/76 Mechanical Ventilator 45 02/27/20 10:00 95 0 153/76 (101) 94 02/27/20 09:15 16 178/105 Mechanical Ventilator 45 02/27/20 09:00 125 16 178/105 (129) 90 02/27/20 08:45 80 142/122 02/27/20 08:45 80 142/122 02/27/20 08:45 142/122 02/27/20 08:15 16 142/122 Mechanical Ventilator 45 02/27/20 08:00 45 02/27/20 08:00 99.0 80 0 142/122 (129) 96 02/27/20 08:00 Mechanical Ventilator 02/27/20 07:30 76 02/27/20 07:29 86 22 45 02/27/20 07:15 18 151/71 Mechanical Ventilator 45 02/27/20 07:00 65 0 143/69 (93) 96 02/27/20 06:15 20 142/71 Mechanical Ventilator 60 02/27/20 06:00 88 0 154/73 (100) 93 02/27/20 05:18 20 136/64 Mechanical Ventilator 60 02/27/20 05:15 20 165/64 Mechanical Ventilator 60 02/27/20 05:00 101 14 149/120 (130) 97 02/27/20 04:45 20 144/74 Mechanical Ventilator 60 02/27/20 04:00 99.5 88 0 142/71 (94) 97 02/27/20 04:00 Mechanical Ventilator 02/27/20 04:00 50 02/27/20 04:00 74 02/27/20 03:33 89 20 168/99 98 02/27/20 03:27 84 23 100 Mechanical Ventilator 45 81 23 45 02/27/20 03:15 20 156/79 Mechanical Ventilator 60 02/27/20 03:03 125 28 156/139 99 02/27/20 03:00 121 21 140/70 (93) 99 02/27/20 02:15 18 139/65 Mechanical Ventilator 60 02/27/20 02:00 58 0 139/65 (89) 99 02/27/20 01:15 18 142/66 Mechanical Ventilator 60 02/27/20 01:02 84 18 146/64 98 02/27/20 01:00 62 0 145/68 (93) 99 02/27/20 00:32 87 22 174/94 100 02/27/20 00:15 22 174/91 Mechanical Ventilator 60 02/27/20 00:00 50 02/27/20 00:00 98.6 87 0 177/84 (115) 02/27/20 00:00 Mechanical Ventilator 02/27/20 00:00 83 02/26/20 23:15 20 154/64 Mechanical Ventilator 02/26/20 23:00 89 22 100 Mechanical Ventilator 50 88 22 50 02/26/20 23:00 97 13 181/88 (119) 92 02/26/20 22:15 20 145/64 Mechanical Ventilator 60 02/26/20 22:00 66 0 145/73 (97) 100 Intake and Output 02/26/20 02/27/20 19:00 07:00 Intake Total 1623.25 ml 2025 ml Output Total 625 ml 620 ml Balance 998.25 ml 1405 ml Free Water 30 ml 50 ml IV Total 1173.25 ml 1555 ml Tube Feeding 420 ml 420 ml Output Urine Total 625 ml 620 ml Laboratory Tests 02/27/20 03:40: White Blood Count 16.8H, Red Blood Count 2.31L, Hemoglobin 6.9*L, Hematocrit 20.1L, Mean Corpuscular Volume 87, Mean Corpuscular Hemoglobin 29.7, Mean Corpuscular Hemoglobin Concent 34.2, Red Cell Distribution Width 18.8H, Platelet Count 338, Mean Platelet Volume 6.3L, Neutrophils (%) (Auto) , Lymphocytes (%) (Auto) , Monocytes (%) (Auto) , Eosinophils (%) (Auto) , Basophils (%) (Auto) , Differential Total Cells Counted 100, Neutrophils % (Manual) 94H, Lymphocytes % (Manual) 2L, Monocytes % (Manual) 4, Eosinophils % (Manual) 0, Basophils % (Manual) 0, Band Neutrophils 0, Platelet Estimate Adequate, Platelet Morphology Normal, Polychromasia 1+, Hypochromasia 1+, Anisocytosis 2+, Sodium Level 150H, Potassium Level 3.4L, Chloride Level 114H, Carbon Dioxide Level 28, Blood Urea Nitrogen 42H, Creatinine 1.2, Estimat Glomerular Filtration Rate 55.6, Glucose Level 118#H, Calcium Level 7.6L, Total Bilirubin 0.4, Direct Bilirubin 0.2, Aspartate Amino Transf (AST/SGOT) 84H, Alanine Aminotransferase (ALT/SGPT) 28, Alkaline Phosphatase 577H, Total Protein 5.9L, Albumin 1.7L, Globulin 4.2, Albumin/Globulin Ratio 0.4L, Random Vancomycin Level 7.2 02/27/20 17:20: POC Whole Blood Glucose 226H 02/27/20 21:00: POC Whole Blood Glucose [Pending] Height (Feet): 5 Height (Inches): 1.00 Weight (Pounds): 168 Objective Patient seen in ICU On vent moves to MD stimulation coarse BS RR abd soft ND no edema Assessment/Plan Assessment/Plan: Assessment - GIB - Anemia - COVID pneumonitis, on Steroids but off lovenox - Acute LA - on ASA - Resp failure - malnutrition/feeding tube dependent - declining albumin - partly due to liver disease - fatty liver - hepatitis C with nodular liver, PCR (+) - abnormal LFT - due to COVD, fatty liver, and HCV - HTN - COPD - Lung mass - DM - PSV Recommendations - Continue TF - increase rate and add protein powder - increase free water to correct Na - monitor CBC - will consider EGD - follow LFT - PPI --> now BID - Elevate HOB - outpatient HCV eradication - Outpatient colonoscopy once recovered from current illness Feliberto Pérez MD Feb 27, 2020 21:28
--- NOTE | 2020-02-27 22:00 | NUR ---
NURSE NOTES: RESTLESS AND AGITATED ATIVAN GIVING
--- NOTE | 2020-02-27 23:16 | Cardiology Progress Note ---
Subjective DATE OF SERVICE: Feb 27, 2020 On isolation for Covid19 Less congestion and SOB. O2 requirements decreasing. 2D Echo reviewed - EF 45%, severe pulmonary hypertension, mild-moderate AV stenosis with ESTHER 1.5cm2 CXR (02/02) with cavitary lesion and mild congestive changes. Objective Last 24 Hour Vital Signs Date Time Temp Pulse Resp B/P (MAP) Pulse Ox O2 Delivery O2 Flow Rate FiO2 02/27/20 22:42 83 22 99 Mechanical Ventilator 45 85 22 45 02/27/20 22:00 85 0 131/62 (85) 99 02/27/20 22:00 20 171/118 Mechanical Ventilator 45 02/27/20 21:37 84 18 136/76 100 02/27/20 21:07 126 33 171/118 100 02/27/20 21:00 81 4 171/118 (135) 100 02/27/20 20:55 20 171/90 Mechanical Ventilator 45 02/27/20 20:55 20 146/64 45 02/27/20 20:53 84 146/64 02/27/20 20:00 Mechanical Ventilator 02/27/20 20:00 99.6 80 0 143/68 (93) 99 02/27/20 20:00 84 02/27/20 19:18 20 151/61 Mechanical Ventilator 45 02/27/20 19:00 99.4 101 21 166/84 (111) 97 02/27/20 18:57 103 22 100 Mechanical Ventilator 45 100 22 45 02/27/20 18:18 17 153/73 Mechanical Ventilator 45 02/27/20 18:00 94 17 153/73 (99) 98 02/27/20 17:45 90 16 149/91 (110) 98 02/27/20 17:30 92 21 158/74 (102) 99 02/27/20 17:18 17 173/104 Mechanical Ventilator 45 02/27/20 17:15 102 16 173/104 (127) 93 02/27/20 17:00 107 3 172/84 (113) 95 02/27/20 16:45 92 0 149/75 (99) 97 02/27/20 16:35 45 02/27/20 16:30 102 0 160/80 (106) 92 02/27/20 16:18 17 168/94 Mechanical Ventilator 45 02/27/20 16:15 110 17 168/94 (118) 97 02/27/20 16:00 45 02/27/20 16:00 100.4 95 22 149/76 (100) 100 02/27/20 16:00 Mechanical Ventilator 02/27/20 15:27 94 22 45 02/27/20 15:22 95 02/27/20 15:18 21 167/68 Mechanical Ventilator 45 02/27/20 15:00 78 21 167/68 (101) 99 02/27/20 14:29 76 14 172/74 99 02/27/20 14:18 21 189/79 Mechanical Ventilator 45 02/27/20 14:00 97 22 189/79 (115) 94 02/27/20 13:59 115 24 163/84 92 02/27/20 13:30 99 22 163/84 (110) 94 02/27/20 13:18 16 160/76 Mechanical Ventilator 45 02/27/20 13:00 84 22 160/76 (104) 99 02/27/20 12:18 24 181/109 Mechanical Ventilator 45 02/27/20 12:15 24 167/83 Mechanical Ventilator 45 02/27/20 12:00 99.3 88 21 167/83 (111) 96 02/27/20 12:00 45 02/27/20 12:00 Mechanical Ventilator 02/27/20 11:33 94 02/27/20 11:15 18 146/80 Mechanical Ventilator 45 02/27/20 11:01 85 22 100 Mechanical Ventilator 45 84 22 45 02/27/20 11:00 81 16 146/80 (102) 100 02/27/20 10:15 16 153/76 Mechanical Ventilator 45 02/27/20 10:00 95 0 153/76 (101) 94 02/27/20 09:15 16 178/105 Mechanical Ventilator 45 02/27/20 09:00 125 16 178/105 (129) 90 02/27/20 08:45 80 142/122 02/27/20 08:45 80 142/122 02/27/20 08:45 142/122 02/27/20 08:15 16 142/122 Mechanical Ventilator 45 02/27/20 08:00 45 02/27/20 08:00 99.0 80 0 142/122 (129) 96 02/27/20 08:00 Mechanical Ventilator 02/27/20 07:30 76 02/27/20 07:29 86 22 45 02/27/20 07:15 18 151/71 Mechanical Ventilator 45 02/27/20 07:00 65 0 143/69 (93) 96 02/27/20 06:15 20 142/71 Mechanical Ventilator 60 02/27/20 06:00 88 0 154/73 (100) 93 02/27/20 05:18 20 136/64 Mechanical Ventilator 60 02/27/20 05:15 20 165/64 Mechanical Ventilator 60 02/27/20 05:00 101 14 149/120 (130) 97 02/27/20 04:45 20 144/74 Mechanical Ventilator 60 02/27/20 04:00 99.5 88 0 142/71 (94) 97 02/27/20 04:00 Mechanical Ventilator 02/27/20 04:00 50 02/27/20 04:00 74 02/27/20 03:33 89 20 168/99 98 02/27/20 03:27 84 23 100 Mechanical Ventilator 45 81 23 45 02/27/20 03:15 20 156/79 Mechanical Ventilator 60 02/27/20 03:03 125 28 156/139 99 02/27/20 03:00 121 21 140/70 (93) 99 02/27/20 02:15 18 139/65 Mechanical Ventilator 60 02/27/20 02:00 58 0 139/65 (89) 99 02/27/20 01:15 18 142/66 Mechanical Ventilator 60 02/27/20 01:02 84 18 146/64 98 02/27/20 01:00 62 0 145/68 (93) 99 02/27/20 00:32 87 22 174/94 100 02/27/20 00:15 22 174/91 Mechanical Ventilator 60 02/27/20 00:00 50 02/27/20 00:00 98.6 87 0 177/84 (115) 02/27/20 00:00 Mechanical Ventilator 02/27/20 00:00 83 02/26/20 23:15 20 154/64 Mechanical Ventilator HEENT: normal ENT inspection RHYTHM: NSR LUNGS: bilat. rhonchi and rales CARDIAC: systolic murmur - 1/6 at base ABDOMEN: normal bowel sounds, non tender, soft EXTREMITIES: normal range of motion, non-pitting Laboratory Tests Test 02/27/20 03:40 02/27/20 17:20 02/27/20 21:00 White Blood Count 16.8 K/UL (4.8-10.8) H Red Blood Count 2.31 M/UL (4.20-5.40) L Hemoglobin 6.9 G/DL (12.0-16.0) *L Hematocrit 20.1 % (37.0-47.0) L Mean Corpuscular Volume 87 FL (80-99) Mean Corpuscular Hemoglobin 29.7 PG (27.0-31.0) Mean Corpuscular Hemoglobin Concent 34.2 G/DL (32.0-36.0) Red Cell Distribution Width 18.8 % (11.6-14.8) H Platelet Count 338 K/UL (150-450) Mean Platelet Volume 6.3 FL (6.5-10.1) L Neutrophils (%) (Auto) % (45.0-75.0) Lymphocytes (%) (Auto) % (20.0-45.0) Monocytes (%) (Auto) % (1.0-10.0) Eosinophils (%) (Auto) % (0.0-3.0) Basophils (%) (Auto) % (0.0-2.0) Differential Total Cells Counted 100 Neutrophils % (Manual) 94 % (45-75) H Lymphocytes % (Manual) 2 % (20-45) L Monocytes % (Manual) 4 % (1-10) Eosinophils % (Manual) 0 % (0-3) Basophils % (Manual) 0 % (0-2) Band Neutrophils 0 % (0-8) Platelet Estimate Adequate Platelet Morphology Normal Polychromasia 1+ Hypochromasia 1+ Anisocytosis 2+ Sodium Level 150 MMOL/L (136-145) H Potassium Level 3.4 MMOL/L (3.5-5.1) L Chloride Level 114 MMOL/L (98-107) H Carbon Dioxide Level 28 MMOL/L (21-32) Blood Urea Nitrogen 42 mg/dL (7-18) H Creatinine 1.2 MG/DL (0.55-1.30) Estimat Glomerular Filtration Rate 55.6 mL/min (>60) Glucose Level 118 MG/DL (74-106) #H Calcium Level 7.6 MG/DL (8.5-10.1) L Total Bilirubin 0.4 MG/DL (0.2-1.0) Direct Bilirubin 0.2 MG/DL (0.0-0.3) Aspartate Amino Transf (AST/SGOT) 84 U/L (15-37) H Alanine Aminotransferase (ALT/SGPT) 28 U/L (12-78) Alkaline Phosphatase 577 U/L (46-116) H Total Protein 5.9 G/DL (6.4-8.2) L Albumin 1.7 G/DL (3.4-5.0) L Globulin 4.2 g/dL Albumin/Globulin Ratio 0.4 (1.0-2.7) L Random Vancomycin Level 7.2 ug/mL POC Whole Blood Glucose 226 MG/DL (74-106) H Pending Assessment/Plan Assessment/Plan Covid19 PNA Bacteremia due to lung mass and recurrent pulmonary infections. + risk for endocarditis, but increased risk for PORFIRIO. Acute MA Ac/chronic diastolic CHF Lung mass - prior benign biopsy Pneumonia with cavitation Mild-mod degenerative aortic stenosis Acute renal failure Pulmonary hypertension (est PAsyst 58mmHg) Hypertension with labile BP range. Anemia Dehydration/hypernatremia corrected IRDM with elevated glucose. Sinus bradycardia on beta rusty rx. Dehydration/hypernatremia Meds updated IVF adjusted Evans Trinidad MD Feb 27, 2020 23:16
[2020-02-28] VITALS (38 sets, daily range): BP systolic 124–198; BP diastolic 54–117
--- NOTE | 2020-02-28 | NUR ---
NURSE NOTES: BS 150 INSULIN GIVEN PER PORTOCAL
--- NOTE | 2020-02-28 02:00 | NUR ---
NURSE NOTES: reposition and suction
[2020-02-28] MEDS: Ipratropium Bromide Inhaler INH SCH ×6 (02:30→23:39)
--- NOTE | 2020-02-28 04:00 | NUR ---
NURSE NOTES: complete bed bath oral care done
[2020-02-28] MEDS: NovoLOG Insulin Flexpen SUBQ SCH ×3 (05:57→18:07)
[2020-02-28] MEDS: Acetaminophen 650mg/20.3ml NG PRN ×3 (06:00→20:11)
[2020-02-28] MEDS: fentaNYL 2500mcg/NS 250ml 250 ML IV SCH ×4 (06:00→21:58)
--- NOTE | 2020-02-28 06:00 | NUR ---
NURSE NOTES: awake and restless medicated ativan
[2020-02-28 06:02] LABS: HEMATOCRIT 31.5 % (37.0-47.0); HEMOGLOBIN 10.2 G/DL (12.0-16.0); MEAN CORPUSCULAR VOLUME 86 FL (80-99); PLATELET COUNT 304 K/UL (150-450); RED BLOOD COUNT 3.68 M/UL (4.20-5.40); RED CELL DISTRIBUTION WIDTH 19.6 % (11.6-14.8)
[2020-02-28 06:17] LABS: ALBUMIN 2.3 G/DL (3.4-5.0); ALBUMIN/GLOBULIN RATIO 0.5 (1.0-2.7); CREATININE 1.5 MG/DL (0.55-1.30); POTASSIUM 4.2 MMOL/L (3.5-5.1)
[2020-02-28] MEDS: LORazepam Inj 2mg/ml 1ml IV PRN ×3 (06:21→21:56)
[2020-02-28 06:37] LABS: WHITE BLOOD COUNT 31.5 K/UL (4.8-10.8)
--- NOTE | 2020-02-28 07:24 | Hematology/Onc Progress Note ---
Assessment/Plan Assessment/Plan ASSESSMENT/RECS #. 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 --> Currently, no evidence of malignancy. --> Continue to closely monitor and also for improvement. --> per Dr. Galeana the patient may be a candidate for right video-assisted thoracoscopic surgery with a biopsy. However, the patient at the present time does not want to proceed with surgery. #. Leukocytosis with COVID19++ and Asthma exacerbation. --> intubated --> wbc 18-->17--.31 --> on methylprednisone/remdimsivir # Anemia likely of chronic disease --> transfuse as needed --> on epo --> hgb 8.2-->6.9-->10.2 --> 1 unit prbc 02/26 --> dw Dr. Pérez and will change lovenox to heparin # Gastritis. # Constipation. # Cavitary pneumonia with MRSA # Staph aureus (MRSA) sepsis # diabetes mellitus # hypertension # COPD # renal failure # aortic stenosis # Hypercapnic/ hypoxic respiratory failure on vent # Dvt ppx heparin sq Appreciate consultation and ailyn Rn Subjective Constitutional: Denies: no symptoms, chills, fever, malaise, weakness, other HEENT: Denies: no symptoms, eye pain, blurred vision, tearing, double vision, ear pain, ear discharge, nose pain, nose congestion, throat pain, throat swelling, mouth pain, mouth swelling, other Cardiovascular: Denies: no symptoms, chest pain, edema, irregular heart rate, lightheadedness, palpitations, syncope, other Neurologic/Psychiatric: Denies: no symptoms, anxiety, depressed, emotional problems, headache, numbness, paresthesia, pre-existing deficit, seizure, tingling, tremors, weakness, other Endocrine: Denies: no symptoms, excessive sweating, flushing, intolerance to cold, intolerance to heat, increased hunger, increased thirst, increased urine, unexplained weight gain, unexplained weight loss, other Hematologic/Lymphatic: Denies: no symptoms, anemia, easy bleeding, easy bruising, adenopathy, other Allergies: Coded Allergies: No Known Allergies (Unverified , 07/30/15) Subjective 02/25 agitated, restless, on mech vent, labs noted, hgb better 02/26 icu, on vent, hgb 6.9, to get 1 unit prbc today, no bleeding 02/27 icu, on restraints, hgb has improved, no bleeding Objective Objective Current Medications Medications (Trade) Dose Ordered Sig/Ivana Route PRN Reason Start Time Stop Time Status Last Admin Dose Admin Acetaminophen (Tylenol) 650 mg EVERY 6 HOURS PRN NG Mild Pain (Pain Scale 1-3) 02/27/20 07:45 03/28/20 07:44 02/28/20 06:00 Acetaminophen (Tylenol) 650 mg Q6H PRN ORAL Mild Pain (Pain Scale 1-3) 02/22/20 16:15 03/23/20 16:14 02/25/20 20:53 Amlodipine Besylate (Norvasc) 10 mg DAILY NG 02/27/20 09:00 03/02/20 08:59 02/27/20 08:45 Aspirin (ASA) 81 mg DAILY NG 02/27/20 09:00 03/30/20 08:59 Chlorhexidine Gluconate (Divina-Hex 2%) 1 applic DAILY@2000 TOPIC 02/26/20 20:00 05/26/20 19:59 02/27/20 20:51 Clonidine HCl (Catapres Tab) 0.1 mg Q4H PRN ORAL SBP > 150mmHg 02/06/20 07:00 05/06/20 06:59 02/26/20 14:36 Dextrose (Dextrose 50%) 25 ml Q30M PRN IV Hypoglycemia 01/28/20 22:45 04/27/20 22:44 Dextrose (Dextrose 50%) 50 ml Q30M PRN IV Hypoglycemia 01/28/20 22:45 04/27/20 22:44 Enoxaparin Sodium (Lovenox) 80 mg Q12HR SUBQ 02/13/20 18:54 05/13/20 18:53 02/24/20 20:18 Epoetin Haseeb (Epoetin Haseeb-EPBX(NON ESRD)) 8,000 unit MON-WED-WED SUBQ 02/05/20 21:00 05/05/20 20:59 02/26/20 20:47 Fentanyl Citrate 250 ml @ 1 mls/hr Q24H IV 02/27/20 22:30 02/29/20 22:29 02/28/20 06:00 Guaifenesin/ Dextromethorphan (Robitussin DM Syrup) 15 ml Q4H PRN ORAL For Cough 02/12/20 16:53 05/12/20 16:52 02/19/20 22:21 Hydralazine HCl (Apresoline) 25 mg Q6H PRN ORAL SBP above 150 02/27/20 23:15 05/27/20 23:14 Insulin Aspart (NovoLOG) Q6HR SUBQ 01/29/20 00:00 04/28/20 00:00 02/28/20 05:57 Insulin Detemir (Levemir) 10 units EVERY 12 HOURS SUBQ 02/27/20 09:00 05/04/20 17:59 02/27/20 21:19 Ipratropium Quanah (Atrovent Inh) 1 puffs Q4H INH 02/18/20 18:00 03/19/20 17:59 02/28/20 02:30 Isosorbide Mononitrate (Imdur) 30 mg DAILY ORAL 02/02/20 09:00 03/03/20 08:59 02/27/20 08:45 Lidocaine (Lidoderm 5% PATCH) 1 patch DAILY TDERMAL 02/11/20 09:30 05/11/20 09:29 02/27/20 08:45 Lorazepam (Ativan 2mg/ml 1ml) 1 mg Q2H PRN IV Agitation 02/23/20 05:15 03/01/20 05:14 02/28/20 06:21 Lorazepam (Ativan) 1 mg Q4H PRN ORAL For Anxiety 02/21/20 22:15 03/04/20 22:14 02/25/20 20:52 Methocarbamol (Robaxin) 500 mg Q8H PRN ORAL muscle spasm 02/11/20 09:30 03/12/20 09:29 02/21/20 05:13 Methylprednisolone Sodium Succinate (Solu-MEDROL) 40 mg Q12HR IVP 02/26/20 21:00 03/07/20 20:59 02/27/20 20:52 Metoprolol Tartrate (Lopressor) 25 mg Q12HR NG 02/27/20 09:00 05/04/20 20:59 02/27/20 20:53 Morphine Sulfate (Morphine Sulfate) 2 mg Q2H PRN IVP For Pain 4-10 02/24/20 15:00 03/02/20 14:59 02/26/20 14:36 Multivitamins (Multivitamins W/ Minerals 15ml Liquid) 15 ml DAILY NG 02/27/20 09:00 03/28/20 08:59 02/27/20 08:45 Nitroglycerin (Ntg) 0.4 mg Q5M PRN SL Prn Chest Pain 02/01/20 08:00 03/02/20 07:59 02/21/20 14:57 Pantoprazole (Protonix) 40 mg EVERY 12 HOURS IVP 02/25/20 10:00 03/24/20 08:59 02/27/20 20:51 Vancomycin HCl (Vanco pharmacy to dose) 1 ea DAILY PRN MISC Per rx protocol 02/13/20 11:30 03/14/20 11:29 Vancomycin HCl 1 gm/Sodium Chloride 275 ml @ 183.708 mls/hr ONCE IVPB 02/28/20 09:00 02/28/20 11:00 Last 24 Hour Vital Signs Date Time Temp Pulse Resp B/P (MAP) Pulse Ox O2 Delivery O2 Flow Rate FiO2 02/28/20 06:51 110 20 154/86 02/28/20 06:30 22 174/114 Mechanical Ventilator 45 02/28/20 06:30 100.5 02/28/20 06:21 129 26 185/108 100 02/28/20 06:00 141 21 181/117 (138) 100 02/28/20 06:00 21 181/113 Mechanical Ventilator 45 02/28/20 05:30 20 149/53 Mechanical Ventilator 45 02/28/20 05:00 97 0 149/83 (105) 100 02/28/20 04:30 20 167/87 Mechanical Ventilator 45 02/28/20 04:15 102 22 97 Mechanical Ventilator 80 02/28/20 04:00 Mechanical Ventilator 02/28/20 04:00 74 02/28/20 04:00 45 02/28/20 04:00 100.0 103 0 149/83 (105) 99 02/28/20 03:30 18 149/83 Mechanical Ventilator 45 02/28/20 03:00 99 0 147/82 (103) 98 02/28/20 02:30 20 170/95 Mechanical Ventilator 45 02/28/20 02:30 102 22 100 Mechanical Ventilator 45 96 22 45 02/28/20 02:00 109 5 170/102 (124) 96 02/28/20 01:30 20 170/94 Mechanical Ventilator 45 02/28/20 01:00 73 0 135/54 (81) 99 02/28/20 00:30 20 145/54 Mechanical Ventilator 45 02/28/20 00:00 Mechanical Ventilator 02/28/20 00:00 85 02/28/20 00:00 99.6 85 16 141/65 (90) 99 02/28/20 00:00 45 02/27/20 23:30 20 147/71 Mechanical Ventilator 45 02/27/20 23:00 83 0 140/66 (90) 99 02/27/20 22:42 83 22 99 Mechanical Ventilator 45 85 22 45 02/27/20 22:30 18 143/71 Mechanical Ventilator 45 02/27/20 22:00 85 0 131/62 (85) 99 02/27/20 22:00 20 171/118 Mechanical Ventilator 45 02/27/20 21:37 84 18 136/76 100 02/27/20 21:07 126 33 171/118 100 02/27/20 21:00 81 4 171/118 (135) 100 02/27/20 20:55 20 154/80 Mechanical Ventilator 45 02/27/20 20:55 20 146/64 45 02/27/20 20:53 84 146/64 02/27/20 20:18 20 134/56 Mechanical Ventilator 45 02/27/20 20:00 Mechanical Ventilator 02/27/20 20:00 99.6 80 0 143/68 (93) 99 02/27/20 20:00 84 02/27/20 20:00 45 02/27/20 19:18 20 151/61 Mechanical Ventilator 45 02/27/20 19:00 99.4 101 21 166/84 (111) 97 02/27/20 18:57 103 22 100 Mechanical Ventilator 45 100 22 45 02/27/20 18:18 17 153/73 Mechanical Ventilator 45 02/27/20 18:00 94 17 153/73 (99) 98 02/27/20 17:45 90 16 149/91 (110) 98 02/27/20 17:30 92 21 158/74 (102) 99 02/27/20 17:18 17 173/104 Mechanical Ventilator 45 02/27/20 17:15 102 16 173/104 (127) 93 02/27/20 17:00 107 3 172/84 (113) 95 02/27/20 16:45 92 0 149/75 (99) 97 02/27/20 16:35 45 02/27/20 16:30 102 0 160/80 (106) 92 02/27/20 16:18 17 168/94 Mechanical Ventilator 45 02/27/20 16:15 110 17 168/94 (118) 97 02/27/20 16:00 45 02/27/20 16:00 100.4 95 22 149/76 (100) 100 02/27/20 16:00 Mechanical Ventilator 02/27/20 15:27 94 22 45 02/27/20 15:22 95 02/27/20 15:18 21 167/68 Mechanical Ventilator 45 02/27/20 15:00 78 21 167/68 (101) 99 02/27/20 14:29 76 14 172/74 99 02/27/20 14:18 21 189/79 Mechanical Ventilator 45 02/27/20 14:00 97 22 189/79 (115) 94 02/27/20 13:59 115 24 163/84 92 02/27/20 13:30 99 22 163/84 (110) 94 02/27/20 13:18 16 160/76 Mechanical Ventilator 45 02/27/20 13:00 84 22 160/76 (104) 99 02/27/20 12:18 24 181/109 Mechanical Ventilator 45 02/27/20 12:15 24 167/83 Mechanical Ventilator 45 02/27/20 12:00 99.3 88 21 167/83 (111) 96 02/27/20 12:00 45 02/27/20 12:00 Mechanical Ventilator 02/27/20 11:33 94 02/27/20 11:15 18 146/80 Mechanical Ventilator 45 02/27/20 11:01 85 22 100 Mechanical Ventilator 45 84 22 45 02/27/20 11:00 81 16 146/80 (102) 100 02/27/20 10:15 16 153/76 Mechanical Ventilator 45 02/27/20 10:00 95 0 153/76 (101) 94 02/27/20 09:15 16 178/105 Mechanical Ventilator 45 02/27/20 09:00 125 16 178/105 (129) 90 02/27/20 08:45 80 142/122 02/27/20 08:45 80 142/122 02/27/20 08:45 142/122 02/27/20 08:15 16 142/122 Mechanical Ventilator 45 02/27/20 08:00 45 02/27/20 08:00 99.0 80 0 142/122 (129) 96 02/27/20 08:00 Mechanical Ventilator 02/27/20 07:30 76 02/27/20 07:29 86 22 45 02/27/20 07:15 18 151/71 Mechanical Ventilator 45 02/27/20 07:00 65 0 143/69 (93) 96 02/27/20 06:15 20 142/71 Mechanical Ventilator 60 02/27/20 06:00 88 0 154/73 (100) 93 02/27/20 05:18 20 136/64 Mechanical Ventilator 60 02/27/20 05:15 20 165/64 Mechanical Ventilator 60 02/27/20 05:00 101 14 149/120 (130) 97 02/27/20 04:45 20 144/74 Mechanical Ventilator 60 02/27/20 04:00 99.5 88 0 142/71 (94) 97 02/27/20 04:00 Mechanical Ventilator 02/27/20 04:00 50 02/27/20 04:00 74 02/27/20 03:33 89 20 168/99 98 02/27/20 03:27 84 23 100 Mechanical Ventilator 45 81 23 45 02/27/20 03:15 20 156/79 Mechanical Ventilator 60 02/27/20 03:03 125 28 156/139 99 02/27/20 03:00 121 21 140/70 (93) 99 02/27/20 02:15 18 139/65 Mechanical Ventilator 60 02/27/20 02:00 58 0 139/65 (89) 99 02/27/20 01:15 18 142/66 Mechanical Ventilator 60 02/27/20 01:02 84 18 146/64 98 02/27/20 01:00 62 0 145/68 (93) 99 02/27/20 00:32 87 22 174/94 100 02/27/20 00:15 22 174/91 Mechanical Ventilator 60 02/27/20 00:00 50 12/1/20 00:00 98.6 87 0 177/84 (115) 02/27/20 00:00 Mechanical Ventilator 02/27/20 00:00 83 02/26/20 23:15 20 154/64 Mechanical Ventilator 02/26/20 23:00 89 22 100 Mechanical Ventilator 50 88 22 50 02/26/20 23:00 97 13 181/88 (119) 92 02/26/20 22:15 20 145/64 Mechanical Ventilator 60 02/26/20 22:00 66 0 145/73 (97) 100 02/26/20 21:15 20 145/73 Mechanical Ventilator 60 02/26/20 21:00 56 0 132/64 (86) 100 66 02/26/20 20:46 71 145/77 02/26/20 20:15 20 145/64 Mechanical Ventilator 60 02/26/20 20:00 71 02/26/20 20:00 97.8 60 0 141/68 (92) 100 71 02/26/20 20:00 Mechanical Ventilator 02/26/20 20:00 50 02/26/20 19:23 74 22 100 Mechanical Ventilator 50 76 22 50 02/26/20 19:15 22 137/77 Mechanical Ventilator 50 02/26/20 19:00 60 0 137/77 (97) 98 02/26/20 18:30 88 22 153/80 (104) 94 02/26/20 18:15 22 138/68 Mechanical Ventilator 50 02/26/20 18:14 22 138/68 Mechanical Ventilator 50 02/26/20 18:00 61 22 138/68 (91) 98 02/26/20 17:30 60 22 133/66 (88) 99 02/26/20 17:15 22 149/69 Mechanical Ventilator 50 02/26/20 17:00 74 22 149/69 (95) 98 02/26/20 16:30 106 13 166/94 (118) 93 02/26/20 16:23 50 02/26/20 16:15 22 131/65 Mechanical Ventilator 60 02/26/20 16:00 76 02/26/20 16:00 97.9 77 22 131/65 (87) 100 02/26/20 16:00 Mechanical Ventilator 02/26/20 15:36 60 02/26/20 15:30 85 22 140/68 (92) 100 02/26/20 15:28 75 22 100 Mechanical Ventilator 50 80 22 50 11/30/20 15:15 22 140/68 Mechanical Ventilator 65 02/26/20 15:05 85 22 140/68 100 02/26/20 15:00 118 15 198/102 (134) 100 02/26/20 14:37 82 22 200/79 100 02/26/20 14:36 200/79 02/26/20 14:30 103 13 200/79 (119) 100 02/26/20 14:15 22 194/79 Mechanical Ventilator 65 02/26/20 14:00 104 22 132/65 (87) 100 02/26/20 13:30 61 22 129/63 (85) 100 02/26/20 13:15 22 129/63 Mechanical Ventilator 65 02/26/20 13:00 61 22 134/67 (89) 100 02/26/20 12:30 66 22 137/66 (89) 100 02/26/20 12:15 22 137/66 Mechanical Ventilator 65 02/26/20 12:00 98 02/26/20 12:00 Mechanical Ventilator 02/26/20 12:00 98.9 71 22 138/67 (90) 98 02/26/20 11:57 65 02/26/20 11:30 61 22 137/69 (91) 96 02/26/20 11:19 68 22 65 02/26/20 11:15 22 137/69 Mechanical Ventilator 60 02/26/20 11:00 62 22 141/70 (93) 96 02/26/20 10:30 64 21 139/67 (91) 96 02/26/20 10:15 22 139/67 Mechanical Ventilator 60 02/26/20 10:00 68 22 146/73 (97) 98 02/26/20 09:30 75 18 142/71 (94) 98 02/26/20 09:15 22 142/71 Mechanical Ventilator 60 02/26/20 09:00 99.0 76 20 134/66 (88) 98 02/26/20 08:51 99.0 02/26/20 08:30 122 17 163/88 (113) 97 02/26/20 08:25 98 22 163/83 100 02/26/20 08:15 22 163/88 Mechanical Ventilator 60 02/26/20 08:01 88 166/70 02/26/20 08:00 87 11/30/20 08:00 60 02/26/20 08:00 166/70 02/26/20 08:00 166/70 02/26/20 08:00 88 166/70 02/26/20 08:00 Mechanical Ventilator 02/26/20 08:00 101.0 89 22 169/70 (103) 100 02/26/20 07:55 88 20 166/70 100 02/26/20 07:30 85 21 166/70 (102) 100 02/26/20 07:30 85 21 166/70 (102) 100 Intake and Output 02/27/20 02/28/20 19:00 07:00 Intake Total 2498.5 ml 1395 ml Output Total 640 ml 610 ml Balance 1858.5 ml 785 ml Free Water 100 ml IV Total 1518.5 ml 910 ml Tube Feeding 420 ml 385 ml Blood Product 500 ml Other 60 ml Output Urine Total 640 ml 610 ml Labs Test 02/25/20 08:44 02/25/20 12:38 02/25/20 15:00 02/25/20 18:00 POC Whole Blood Glucose 244 MG/DL (74-106) White Blood Count 19.5 K/UL (4.8-10.8) Red Blood Count 2.39 M/UL (4.20-5.40) Hemoglobin 6.8 G/DL (12.0-16.0) Hematocrit 21.6 % (37.0-47.0) Mean Corpuscular Volume 91 FL (80-99) Mean Corpuscular Hemoglobin 28.3 PG (27.0-31.0) Mean Corpuscular Hemoglobin Concent 31.3 G/DL (32.0-36.0) Red Cell Distribution Width 17.0 % (11.6-14.8) Platelet Count 464 K/UL (150-450) Mean Platelet Volume 5.9 FL (6.5-10.1) Neutrophils (%) (Auto) % (45.0-75.0) Lymphocytes (%) (Auto) % (20.0-45.0) Monocytes (%) (Auto) % (1.0-10.0) Eosinophils (%) (Auto) % (0.0-3.0) Basophils (%) (Auto) % (0.0-2.0) Differential Total Cells Counted 100 Neutrophils % (Manual) 96 % (45-75) Lymphocytes % (Manual) 1 % (20-45) Monocytes % (Manual) 3 % (1-10) Eosinophils % (Manual) 0 % (0-3) Basophils % (Manual) 0 % (0-2) Band Neutrophils 0 % (0-8) Platelet Estimate Adequate Platelet Morphology Normal Polychromasia 1+ Hypochromasia 2+ Anisocytosis 1+ Prothrombin Time 13.3 SEC (9.30-11.50) Prothromb Time International Ratio 1.2 (0.9-1.1) Random Vancomycin Level 10.1 ug/mL Test 02/25/20 18:51 02/26/20 05:15 02/27/20 03:40 02/27/20 08:57 POC Whole Blood Glucose 128 MG/DL (74-106) 148 MG/DL (74-106) White Blood Count 18.2 K/UL (4.8-10.8) 16.8 K/UL (4.8-10.8) Red Blood Count 2.58 M/UL (4.20-5.40) 2.31 M/UL (4.20-5.40) Hemoglobin 7.2 G/DL (12.0-16.0) 6.9 G/DL (12.0-16.0) Hematocrit 23.2 % (37.0-47.0) 20.1 % (37.0-47.0) Mean Corpuscular Volume 90 FL (80-99) 87 FL (80-99) Mean Corpuscular Hemoglobin 27.9 PG (27.0-31.0) 29.7 PG (27.0-31.0) Mean Corpuscular Hemoglobin Concent 31.1 G/DL (32.0-36.0) 34.2 G/DL (32.0-36.0) Red Cell Distribution Width 17.7 % (11.6-14.8) 18.8 % (11.6-14.8) Platelet Count 491 K/UL (150-450) 338 K/UL (150-450) Mean Platelet Volume 6.4 FL (6.5-10.1) 6.3 FL (6.5-10.1) Neutrophils (%) (Auto) % (45.0-75.0) % (45.0-75.0) Lymphocytes (%) (Auto) % (20.0-45.0) % (20.0-45.0) Monocytes (%) (Auto) % (1.0-10.0) % (1.0-10.0) Eosinophils (%) (Auto) % (0.0-3.0) % (0.0-3.0) Basophils (%) (Auto) % (0.0-2.0) % (0.0-2.0) Differential Total Cells Counted 100 100 Neutrophils % (Manual) 87 % (45-75) 94 % (45-75) Lymphocytes % (Manual) 2 % (20-45) 2 % (20-45) Monocytes % (Manual) 4 % (1-10) 4 % (1-10) Eosinophils % (Manual) 0 % (0-3) 0 % (0-3) Basophils % (Manual) 0 % (0-2) 0 % (0-2) Band Neutrophils 7 % (0-8) 0 % (0-8) Platelet Estimate Increased Adequate Platelet Morphology Normal Normal Hypochromasia 2+ 1+ Anisocytosis 2+ 2+ Sodium Level 148 MMOL/L (136-145) 150 MMOL/L (136-145) Potassium Level 3.7 MMOL/L (3.5-5.1) 3.4 MMOL/L (3.5-5.1) Chloride Level 112 MMOL/L (98-107) 114 MMOL/L (98-107) Carbon Dioxide Level 29 MMOL/L (21-32) 28 MMOL/L (21-32) Anion Gap 7 mmol/L (5-15) Blood Urea Nitrogen 40 mg/dL (7-18) 42 mg/dL (7-18) Creatinine 1.4 MG/DL (0.55-1.30) 1.2 MG/DL (0.55-1.30) Estimat Glomerular Filtration Rate 46.5 mL/min (>60) 55.6 mL/min (>60) Glucose Level 267 MG/DL (74-106) 118 MG/DL (74-106) Calcium Level 7.8 MG/DL (8.5-10.1) 7.6 MG/DL (8.5-10.1) Total Bilirubin 0.6 MG/DL (0.2-1.0) 0.4 MG/DL (0.2-1.0) Direct Bilirubin 0.4 MG/DL (0.0-0.3) 0.2 MG/DL (0.0-0.3) Aspartate Amino Transf (AST/SGOT) 60 U/L (15-37) 84 U/L (15-37) Alanine Aminotransferase (ALT/SGPT) 29 U/L (12-78) 28 U/L (12-78) Alkaline Phosphatase 676 U/L (46-116) 577 U/L (46-116) Total Protein 6.6 G/DL (6.4-8.2) 5.9 G/DL (6.4-8.2) Albumin 1.9 G/DL (3.4-5.0) 1.7 G/DL (3.4-5.0) Globulin 4.7 g/dL 4.2 g/dL Albumin/Globulin Ratio 0.4 (1.0-2.7) 0.4 (1.0-2.7) Alpha Fetoprotein 8.5 ng/mL (0.0-8.3) Polychromasia 1+ Random Vancomycin Level 7.2 ug/mL Test 02/27/20 12:09 02/27/20 17:20 02/27/20 21:00 02/27/20 23:24 POC Whole Blood Glucose 226 MG/DL (74-106) 150 MG/DL (74-106) Test 02/28/20 03:37 02/28/20 04:30 White Blood Count 31.5 K/UL (4.8-10.8) Red Blood Count 3.68 M/UL (4.20-5.40) Hemoglobin 10.2 G/DL (12.0-16.0) Hematocrit 31.5 % (37.0-47.0) Mean Corpuscular Volume 86 FL (80-99) Mean Corpuscular Hemoglobin 27.7 PG (27.0-31.0) Mean Corpuscular Hemoglobin Concent 32.4 G/DL (32.0-36.0) Red Cell Distribution Width 19.6 % (11.6-14.8) Platelet Count 304 K/UL (150-450) Mean Platelet Volume 6.9 FL (6.5-10.1) Neutrophils (%) (Auto) % (45.0-75.0) Lymphocytes (%) (Auto) % (20.0-45.0) Monocytes (%) (Auto) % (1.0-10.0) Eosinophils (%) (Auto) % (0.0-3.0) Basophils (%) (Auto) % (0.0-2.0) Sodium Level 149 MMOL/L (136-145) Potassium Level 4.2 MMOL/L (3.5-5.1) Chloride Level 112 MMOL/L (98-107) Carbon Dioxide Level 28 MMOL/L (21-32) Anion Gap 9 mmol/L (5-15) Blood Urea Nitrogen 40 mg/dL (7-18) Creatinine 1.5 MG/DL (0.55-1.30) Estimat Glomerular Filtration Rate 42.9 mL/min (>60) Glucose Level 151 MG/DL (74-106) Calcium Level 8.0 MG/DL (8.5-10.1) Total Bilirubin 1.0 MG/DL (0.2-1.0) Aspartate Amino Transf (AST/SGOT) 102 U/L (15-37) Alanine Aminotransferase (ALT/SGPT) 50 U/L (12-78) Alkaline Phosphatase 731 U/L (46-116) Total Protein 7.1 G/DL (6.4-8.2) Albumin 2.3 G/DL (3.4-5.0) Globulin 4.8 g/dL Albumin/Globulin Ratio 0.5 (1.0-2.7) Random Vancomycin Level 11.8 ug/mL Height (Feet): 5 Height (Inches): 1.00 Weight (Pounds): 168 Objective PHYSICAL EXAMINATION: GENERAL: An obese woman, seen in the ICU in her room. HEENT: Normocephalic and atraumatic. Sclerae are anicteric. NECK: Supple. ++vent CHEST: Exam revealed coarse breath sounds. CARDIOVASCULAR: Exam revealed a tachycardic heart rate. ABDOMEN: Soft, obese, and nontender. EXTREMITIES: Trace edema. Rodolfo Ohara MD Feb 28, 2020 07:24
--- NOTE | 2020-02-28 07:28 | NUR ---
NURSE HAND-OFF REPORT: Latest Vital Signs: Temperature 100.5 , Pulse 115 , B/P 167 /83 , Respiratory Rate 8 , O2 SAT 96 , Mechanical Ventilator, O2 Flow Rate . Vital Sign Comment: EKG Rhythm: Sinus Tachycardia Rhythm change?: N Notified?: Jay briceño MD Response: Latest Pineda Fall Score: 50 Fall Risk: High Risk Safety Measures: Call light Within Reach, Bed Alarm Zone 1, Side Rails Side Rails x3, Bed position Low and Locked. Fall Precautions: Door Sign Report given to kat george using sbar.
--- NOTE | 2020-02-28 07:29 | NUR ---
NURSE NOTES: Received patient from JO-ANN Pate. Patient opens eyes when called by name; however, appears restless; observed shifting in bed; RASS noted -2 with fentanyl on max dose. Gag reflex is intact; pt is unable to follow simple commands; Bilateral pupils equal and round 3mm with sluggish reactive to light. Patient is in Sinus Rhythm to director of cardiac cath lab. Radial and dorsalis pedis pulses 2+. Non-pitting edema noted to hands. Capillary refill less than 2 sec. Patient is orally intubated with a 7.5 noted 25 cm at the lip with the following settings: AC 22 TV 550 FiO2 45% Peep 8. All lung ricketts noted diminished upon auscultation. OGT noted running Nepro at 45 cc/ml without gastric residuals. Bowel sounds are active to all quadrants. Abdomen appears roud, soft, and non-tender. Flores catheter noted draining yellow urine. Skin alterations noted. Patient has a right foot 22g peripheral IV heplock. And Right upper arm PICC line double lumen with IV running of fentanyl drip at 300 mcg/hr. Bilateral soft wrist restraints noted - skin to both wrists intact without redness. Bed in lowest position, alarm on, side rails up x 2, call light within reach. Contact, droplet, airborne isolation observed. Will continue plan of care.
[2020-02-28 07:34] LABS: PHOSPHORUS 3.3 MG/DL (2.5-4.9)
[2020-02-28] MEDS: Enoxaparin 80mg Inj SUBQ SCH (08:29)
[2020-02-28] MEDS: Aspirin Baby 81mg NG SCH (08:29)
[2020-02-28] MEDS ORDERED: Vancomycin 1 GM in NS 275 ML IVPB SCH (09:00)
[2020-02-28] MEDS: Multivitamins W/Minerals 15 ML UDC NG SCH (09:06)
[2020-02-28] MEDS: Solu-MEDROL 40mg Inj IVP SCH (09:06)
[2020-02-28] MEDS: Pantoprazole Inj IVP SCH ×2 (09:06→20:10)
[2020-02-28] MEDS: Imdur 30mg tab ORAL SCH (09:10)
--- NOTE | 2020-02-28 09:47 | Critical Care Progress Note ---
Assessment/Plan Assessment/Plan IMPRESSION acute respiratory failure/ now on vent leukocytosis sepsis ARF toxic met encephalopathy COPD DM poor control cavitary lesion negative AFB groundglass infiltrates NSTEMI severe PCM hypertension left shoulder pain bacteremia MRSA hematuria COVID anemia diabetes s/p respiratory cod PLAN DVT prophylaxis transfused and monitor HH antibiotics per ID titrate BP meds vent support- consider wean monitor acid base NGT monitor lytes feeds maintain support monitor LOC monitor bp critical try to wean sedate as needed medications/laboratory data/nursing notes/ICU care reviewed in detail note reviewed and edited care discussed with RN and RT ICU time spent >40 minutes Critical Care - Subjective Interval Events: on vent agitated on Vent Condition: critical EKG Rhythm: Sinus Tachycardia Residuals: minimal Tube Feeding Tolerated: yes I&O: Intake and Output 02/27/20 02/28/20 19:00 07:00 Intake Total 2498.5 ml 1430 ml Output Total 640 ml 660 ml Balance 1858.5 ml 770 ml Free Water 100 ml IV Total 1518.5 ml 910 ml Tube Feeding 420 ml 420 ml Blood Product 500 ml Other 60 ml Output Urine Total 640 ml 660 ml Critical Care - Objective ET-Tube: 7.5 ET Position: 25 Last 24 Hour Vital Signs Date Time Temp Pulse Resp B/P (MAP) Pulse Ox O2 Delivery O2 Flow Rate FiO2 02/28/20 09:30 104 0 162/88 (112) 100 02/28/20 09:10 112 166/78 02/28/20 09:10 112 166/78 02/28/20 09:10 166/78 02/28/20 09:07 60 02/28/20 09:00 112 16 166/78 (107) 97 02/28/20 08:30 90 15 127/71 (89) 100 02/28/20 08:00 45 02/28/20 08:00 Mechanical Ventilator 02/28/20 08:00 95 0 124/70 (88) 100 02/28/20 07:41 104 02/28/20 07:30 15 160/88 Mechanical Ventilator 45 02/28/20 07:30 113 15 160/88 (112) 96 02/28/20 07:28 110 22 100 Mechanical Ventilator 45 111 22 45 02/28/20 07:00 115 8 167/83 (111) 96 02/28/20 06:51 110 20 154/86 02/28/20 06:30 22 174/114 Mechanical Ventilator 45 02/28/20 06:30 100.5 02/28/20 06:21 129 26 185/108 100 02/28/20 06:00 141 21 181/117 (138) 100 02/28/20 06:00 21 181/113 Mechanical Ventilator 45 02/28/20 05:30 20 149/53 Mechanical Ventilator 45 02/28/20 05:00 97 0 149/83 (105) 100 02/28/20 04:30 20 167/87 Mechanical Ventilator 45 02/28/20 04:15 102 22 97 Mechanical Ventilator 80 02/28/20 04:00 Mechanical Ventilator 02/28/20 04:00 74 02/28/20 04:00 45 02/28/20 04:00 100.0 103 0 149/83 (105) 99 02/28/20 03:30 18 149/83 Mechanical Ventilator 45 02/28/20 03:00 99 0 147/82 (103) 98 02/28/20 02:30 20 170/95 Mechanical Ventilator 45 02/28/20 02:30 102 22 100 Mechanical Ventilator 45 96 22 45 02/28/20 02:00 109 5 170/102 (124) 96 02/28/20 01:30 20 170/94 Mechanical Ventilator 45 02/28/20 01:00 73 0 135/54 (81) 99 02/28/20 00:30 20 145/54 Mechanical Ventilator 45 02/28/20 00:00 Mechanical Ventilator 02/28/20 00:00 85 02/28/20 00:00 99.6 85 16 141/65 (90) 99 02/28/20 00:00 45 02/27/20 23:30 20 147/71 Mechanical Ventilator 45 02/27/20 23:00 83 0 140/66 (90) 99 02/27/20 22:42 83 22 99 Mechanical Ventilator 45 85 22 45 02/27/20 22:30 18 143/71 Mechanical Ventilator 45 02/27/20 22:00 85 0 131/62 (85) 99 02/27/20 22:00 20 171/118 Mechanical Ventilator 45 02/27/20 21:37 84 18 136/76 100 02/27/20 21:07 126 33 171/118 100 02/27/20 21:00 81 4 171/118 (135) 100 12/1/20 20:55 20 154/80 Mechanical Ventilator 45 02/27/20 20:55 20 146/64 45 02/27/20 20:53 84 146/64 02/27/20 20:18 20 134/56 Mechanical Ventilator 45 02/27/20 20:00 Mechanical Ventilator 02/27/20 20:00 99.6 80 0 143/68 (93) 99 02/27/20 20:00 84 02/27/20 20:00 45 02/27/20 19:18 20 151/61 Mechanical Ventilator 45 02/27/20 19:00 99.4 101 21 166/84 (111) 97 02/27/20 18:57 103 22 100 Mechanical Ventilator 45 100 22 45 02/27/20 18:18 17 153/73 Mechanical Ventilator 45 02/27/20 18:00 94 17 153/73 (99) 98 02/27/20 17:45 90 16 149/91 (110) 98 02/27/20 17:30 92 21 158/74 (102) 99 02/27/20 17:18 17 173/104 Mechanical Ventilator 45 02/27/20 17:15 102 16 173/104 (127) 93 02/27/20 17:00 107 3 172/84 (113) 95 02/27/20 16:45 92 0 149/75 (99) 97 02/27/20 16:35 45 02/27/20 16:30 102 0 160/80 (106) 92 02/27/20 16:18 17 168/94 Mechanical Ventilator 45 02/27/20 16:15 110 17 168/94 (118) 97 02/27/20 16:00 45 02/27/20 16:00 100.4 95 22 149/76 (100) 100 02/27/20 16:00 Mechanical Ventilator 02/27/20 15:27 94 22 45 02/27/20 15:22 95 02/27/20 15:18 21 167/68 Mechanical Ventilator 45 02/27/20 15:00 78 21 167/68 (101) 99 02/27/20 14:29 76 14 172/74 99 02/27/20 14:18 21 189/79 Mechanical Ventilator 45 02/27/20 14:00 97 22 189/79 (115) 94 02/27/20 13:59 115 24 163/84 92 02/27/20 13:30 99 22 163/84 (110) 94 02/27/20 13:18 16 160/76 Mechanical Ventilator 45 02/27/20 13:00 84 22 160/76 (104) 99 02/27/20 12:18 24 181/109 Mechanical Ventilator 45 02/27/20 12:15 24 167/83 Mechanical Ventilator 45 02/27/20 12:00 99.3 88 21 167/83 (111) 96 02/27/20 12:00 45 02/27/20 12:00 Mechanical Ventilator 02/27/20 11:33 94 02/27/20 11:15 18 146/80 Mechanical Ventilator 45 02/27/20 11:01 85 22 100 Mechanical Ventilator 45 84 22 45 02/27/20 11:00 81 16 146/80 (102) 100 02/27/20 10:15 16 153/76 Mechanical Ventilator 45 02/27/20 10:00 95 0 153/76 (101) 94 Labs: Laboratory Tests Test 02/27/20 12:09 02/27/20 17:20 02/27/20 21:00 02/27/20 23:24 POC Whole Blood Glucose Pending 226 MG/DL (74-106) H Pending 150 MG/DL (74-106) H Test 02/28/20 03:37 02/28/20 04:30 02/28/20 08:48 POC Whole Blood Glucose Pending White Blood Count 31.5 K/UL (4.8-10.8) #*H Red Blood Count 3.68 M/UL (4.20-5.40) L Hemoglobin 10.2 G/DL (12.0-16.0) #L Hematocrit 31.5 % (37.0-47.0) #L Mean Corpuscular Volume 86 FL (80-99) Mean Corpuscular Hemoglobin 27.7 PG (27.0-31.0) Mean Corpuscular Hemoglobin Concent 32.4 G/DL (32.0-36.0) Red Cell Distribution Width 19.6 % (11.6-14.8) H Platelet Count 304 K/UL (150-450) Mean Platelet Volume 6.9 FL (6.5-10.1) Neutrophils (%) (Auto) % (45.0-75.0) Lymphocytes (%) (Auto) % (20.0-45.0) Monocytes (%) (Auto) % (1.0-10.0) Eosinophils (%) (Auto) % (0.0-3.0) Basophils (%) (Auto) % (0.0-2.0) Differential Total Cells Counted 100 Neutrophils % (Manual) 93 % (45-75) H Lymphocytes % (Manual) 2 % (20-45) L Monocytes % (Manual) 3 % (1-10) Eosinophils % (Manual) 0 % (0-3) Basophils % (Manual) 0 % (0-2) Band Neutrophils 2 % (0-8) Platelet Estimate Adequate Platelet Morphology Normal Polychromasia 1+ Hypochromasia 1+ Anisocytosis 2+ Spherocytes Stomatocytes Occasional Sodium Level 149 MMOL/L (136-145) H Potassium Level 4.2 MMOL/L (3.5-5.1) Chloride Level 112 MMOL/L (98-107) H Carbon Dioxide Level 28 MMOL/L (21-32) Anion Gap 9 mmol/L (5-15) Blood Urea Nitrogen 40 mg/dL (7-18) H Creatinine 1.5 MG/DL (0.55-1.30) H Estimat Glomerular Filtration Rate 42.9 mL/min (>60) Glucose Level 151 MG/DL (74-106) H Calcium Level 8.0 MG/DL (8.5-10.1) L Phosphorus Level 3.3 MG/DL (2.5-4.9) Magnesium Level 1.8 MG/DL (1.8-2.4) Total Bilirubin 1.0 MG/DL (0.2-1.0) Aspartate Amino Transf (AST/SGOT) 102 U/L (15-37) H Alanine Aminotransferase (ALT/SGPT) 50 U/L (12-78) Alkaline Phosphatase 731 U/L (46-116) H Total Protein 7.1 G/DL (6.4-8.2) Albumin 2.3 G/DL (3.4-5.0) L Globulin 4.8 g/dL Albumin/Globulin Ratio 0.5 (1.0-2.7) L Random Vancomycin Level 11.8 ug/mL Arterial Blood pH 7.340 (7.350-7.450) Arterial Blood Partial Pressure CO2 47.6 mmHg (35.0-45.0) H Arterial Blood Partial Pressure O2 54.9 mmHg (75.0-100.0) L Arterial Blood HCO3 28.6 mmol/L (22.0-26.0) H Arterial Blood Oxygen Saturation 87.7 % (95-100) *L Arterial Blood Base Excess 3.3 (-2-2) H Bryan Test Positive Objective: deferred due to COVID Accucheck: 165 Germán Feliz MD Feb 28, 2020 09:47
[2020-02-28] MEDS: Levemir Flexpen SUBQ SCH ×2 (10:31→20:59)
--- NOTE | 2020-02-28 10:32 | NUR ---
NURSE NOTES: Started fentanyl drip new edited order. Resumed previous bag with 99.5ml
--- NOTE | 2020-02-28 11:42 | NUR ---
RD ASSESSMENT & RECOMMENDATIONS SEE CARE ACTIVITY FOR COMPLETE ASSESSMENT DAILY ESTIMATED NEEDS: Needs based on Critical care/ 54.9kg adjusted body wt of 75kg 22-30 kcals/kg 5189-0524 total kcals 1.2-2 g protein/kg 66- 109 g total protein 25-30 mL/kg 3721-6442 total fluid mLs NUTRITION DIAGNOSIS: * Altered nutrition related lab values R/T clinical status as evidenced by variable poc BGs (52-325 upon adm, now 200's), elev WBC, elev K (5.4 -> wnl-> back up 6.3*), elev LFTs. (CURRENT TF: Nepro @45ml/hr + Prosource BID Meets 118% est kcal, 100% est pro needs when at goal for 24 hrs) ENTERAL NUTRITION RECOMMENDATIONS: Nepro @ 40ml/hr x 24 hrs to provide 960ml, 1728kcal, 78g + 22g prot, 698ml free water * Rec goal of 40ml/hr to not exceed est kcal needs. * Maintain added Prosource BID (11g pro each) to better meet est pro needs * HOB over 30 degrees/ water flush per MD ----- ADDITIONAL RECOMMENDATIONS: * Calibrated bedscale wts-> daily wts for efficacy of TF's * Monitor lytes: critically elev K (6.3-> now wnl ) * Monitor for hypoglycemia while NPO- maintain added D5 BG monitoring while held for HOB <30 degrees * TF rec as above when medically appropriate to feed Feed at goal w/ hemodynamic stability. * Last bm noted at 02/21, consider bowel regimen if appropriate *
--- NOTE | 2020-02-28 12:12 | Infectious Diseases Prog Note ---
Assessment/Plan Assessment/Plan antibiotics : vancomycin iv, remdesivir A 1. MRSA cavitary pneumonia sputum AFB negative x 3 2. MRSA sepsis r/o endocarditis 3. diabetes mellitus 4. hypertension 5. COPD 6. respiratory failure 7. aortic stenosis 8. COVID 19 pneumonia improving on 45 percent FiO2, PEEP 8, saturation 100 % s/p ivermectin 11.27.20 s/p remdesivir 9, leucocytosis likely secondary to steroids P 1. continue iv vancomycin 15 more days 2. decrease solumedrol 3. will follow up cultures 4. continue isolation Subjective ROS Limited/Unobtainable: Yes Allergies: Coded Allergies: No Known Allergies (Unverified , 07/30/15) Objective Last 24 Hour Vital Signs Date Time Temp Pulse Resp B/P (MAP) Pulse Ox O2 Delivery O2 Flow Rate FiO2 02/28/20 11:14 87 22 100 Mechanical Ventilator 45 85 22 45 02/28/20 10:45 75 19 143/74 (97) 100 02/28/20 10:32 22 135/72 Mechanical Ventilator 60 02/28/20 10:30 85 17 135/72 (93) 100 02/28/20 10:30 17 135/72 Mechanical Ventilator 60 02/28/20 10:00 84 17 139/73 (95) 100 02/28/20 09:30 16 162/88 Mechanical Ventilator 60 02/28/20 09:30 104 16 162/88 (112) 100 02/28/20 09:10 112 166/78 02/28/20 09:10 112 166/78 02/28/20 09:10 166/78 02/28/20 09:07 60 02/28/20 09:00 112 16 166/78 (107) 97 02/28/20 08:30 15 127/71 Mechanical Ventilator 45 02/28/20 08:30 90 15 127/71 (89) 100 02/28/20 08:00 45 02/28/20 08:00 Mechanical Ventilator 02/28/20 08:00 95 0 124/70 (88) 100 02/28/20 07:41 104 02/28/20 07:30 15 160/88 Mechanical Ventilator 45 02/28/20 07:30 113 15 160/88 (112) 96 02/28/20 07:28 110 22 100 Mechanical Ventilator 45 111 22 45 02/28/20 07:00 115 8 167/83 (111) 96 02/28/20 06:51 110 20 154/86 02/28/20 06:30 22 174/114 Mechanical Ventilator 45 02/28/20 06:30 100.5 02/28/20 06:21 129 26 185/108 100 02/28/20 06:00 141 21 181/117 (138) 100 02/28/20 06:00 21 181/113 Mechanical Ventilator 45 02/28/20 05:30 20 149/53 Mechanical Ventilator 45 02/28/20 05:00 97 0 149/83 (105) 100 02/28/20 04:30 20 167/87 Mechanical Ventilator 45 02/28/20 04:15 102 22 97 Mechanical Ventilator 80 02/28/20 04:00 Mechanical Ventilator 02/28/20 04:00 74 02/28/20 04:00 45 02/28/20 04:00 100.0 103 0 149/83 (105) 99 02/28/20 03:30 18 149/83 Mechanical Ventilator 45 02/28/20 03:00 99 0 147/82 (103) 98 02/28/20 02:30 20 170/95 Mechanical Ventilator 45 02/28/20 02:30 102 22 100 Mechanical Ventilator 45 96 22 45 02/28/20 02:00 109 5 170/102 (124) 96 02/28/20 01:30 20 170/94 Mechanical Ventilator 45 02/28/20 01:00 73 0 135/54 (81) 99 02/28/20 00:30 20 145/54 Mechanical Ventilator 45 02/28/20 00:00 Mechanical Ventilator 02/28/20 00:00 85 02/28/20 00:00 99.6 85 16 141/65 (90) 99 02/28/20 00:00 45 02/27/20 23:30 20 147/71 Mechanical Ventilator 45 02/27/20 23:00 83 0 140/66 (90) 99 02/27/20 22:42 83 22 99 Mechanical Ventilator 45 85 22 45 02/27/20 22:30 18 143/71 Mechanical Ventilator 45 02/27/20 22:00 85 0 131/62 (85) 99 02/27/20 22:00 20 171/118 Mechanical Ventilator 45 02/27/20 21:37 84 18 136/76 100 02/27/20 21:07 126 33 171/118 100 02/27/20 21:00 81 4 171/118 (135) 100 02/27/20 20:55 20 154/80 Mechanical Ventilator 45 02/27/20 20:55 20 146/64 45 02/27/20 20:53 84 146/64 02/27/20 20:18 20 134/56 Mechanical Ventilator 45 02/27/20 20:00 Mechanical Ventilator 02/27/20 20:00 99.6 80 0 143/68 (93) 99 02/27/20 20:00 84 02/27/20 20:00 45 02/27/20 19:18 20 151/61 Mechanical Ventilator 45 02/27/20 19:00 99.4 101 21 166/84 (111) 97 02/27/20 18:57 103 22 100 Mechanical Ventilator 45 100 22 45 02/27/20 18:18 17 153/73 Mechanical Ventilator 45 02/27/20 18:00 94 17 153/73 (99) 98 02/27/20 17:45 90 16 149/91 (110) 98 02/27/20 17:30 92 21 158/74 (102) 99 02/27/20 17:18 17 173/104 Mechanical Ventilator 45 02/27/20 17:15 102 16 173/104 (127) 93 02/27/20 17:00 107 3 172/84 (113) 95 02/27/20 16:45 92 0 149/75 (99) 97 02/27/20 16:35 45 02/27/20 16:30 102 0 160/80 (106) 92 02/27/20 16:18 17 168/94 Mechanical Ventilator 45 02/27/20 16:15 110 17 168/94 (118) 97 02/27/20 16:00 45 02/27/20 16:00 100.4 95 22 149/76 (100) 100 02/27/20 16:00 Mechanical Ventilator 02/27/20 15:27 94 22 45 02/27/20 15:22 95 02/27/20 15:18 21 167/68 Mechanical Ventilator 45 02/27/20 15:00 78 21 167/68 (101) 99 02/27/20 14:29 76 14 172/74 99 02/27/20 14:18 21 189/79 Mechanical Ventilator 45 02/27/20 14:00 97 22 189/79 (115) 94 02/27/20 13:59 115 24 163/84 92 02/27/20 13:30 99 22 163/84 (110) 94 02/27/20 13:18 16 160/76 Mechanical Ventilator 45 02/27/20 13:00 84 22 160/76 (104) 99 02/27/20 12:18 24 181/109 Mechanical Ventilator 45 02/27/20 12:15 24 167/83 Mechanical Ventilator 45 Height (Feet): 5 Height (Inches): 1.00 Weight (Pounds): 168 HEENT: other - intubated Laboratory Tests Test 02/27/20 17:20 02/27/20 21:00 02/27/20 23:24 02/28/20 03:37 POC Whole Blood Glucose 226 MG/DL (74-106) H Pending 150 MG/DL (74-106) H Pending Test 02/28/20 04:30 02/28/20 08:48 White Blood Count 31.5 K/UL (4.8-10.8) #*H Red Blood Count 3.68 M/UL (4.20-5.40) L Hemoglobin 10.2 G/DL (12.0-16.0) #L Hematocrit 31.5 % (37.0-47.0) #L Mean Corpuscular Volume 86 FL (80-99) Mean Corpuscular Hemoglobin 27.7 PG (27.0-31.0) Mean Corpuscular Hemoglobin Concent 32.4 G/DL (32.0-36.0) Red Cell Distribution Width 19.6 % (11.6-14.8) H Platelet Count 304 K/UL (150-450) Mean Platelet Volume 6.9 FL (6.5-10.1) Neutrophils (%) (Auto) % (45.0-75.0) Lymphocytes (%) (Auto) % (20.0-45.0) Monocytes (%) (Auto) % (1.0-10.0) Eosinophils (%) (Auto) % (0.0-3.0) Basophils (%) (Auto) % (0.0-2.0) Differential Total Cells Counted 100 Neutrophils % (Manual) 93 % (45-75) H Lymphocytes % (Manual) 2 % (20-45) L Monocytes % (Manual) 3 % (1-10) Eosinophils % (Manual) 0 % (0-3) Basophils % (Manual) 0 % (0-2) Band Neutrophils 2 % (0-8) Platelet Estimate Adequate Platelet Morphology Normal Polychromasia 1+ Hypochromasia 1+ Anisocytosis 2+ Spherocytes Stomatocytes Occasional Sodium Level 149 MMOL/L (136-145) H Potassium Level 4.2 MMOL/L (3.5-5.1) Chloride Level 112 MMOL/L (98-107) H Carbon Dioxide Level 28 MMOL/L (21-32) Anion Gap 9 mmol/L (5-15) Blood Urea Nitrogen 40 mg/dL (7-18) H Creatinine 1.5 MG/DL (0.55-1.30) H Estimat Glomerular Filtration Rate 42.9 mL/min (>60) Glucose Level 151 MG/DL (74-106) H Calcium Level 8.0 MG/DL (8.5-10.1) L Phosphorus Level 3.3 MG/DL (2.5-4.9) Magnesium Level 1.8 MG/DL (1.8-2.4) Total Bilirubin 1.0 MG/DL (0.2-1.0) Aspartate Amino Transf (AST/SGOT) 102 U/L (15-37) H Alanine Aminotransferase (ALT/SGPT) 50 U/L (12-78) Alkaline Phosphatase 731 U/L (46-116) H Total Protein 7.1 G/DL (6.4-8.2) Albumin 2.3 G/DL (3.4-5.0) L Globulin 4.8 g/dL Albumin/Globulin Ratio 0.5 (1.0-2.7) L Random Vancomycin Level 11.8 ug/mL Arterial Blood pH 7.340 (7.350-7.450) Arterial Blood Partial Pressure CO2 47.6 mmHg (35.0-45.0) H Arterial Blood Partial Pressure O2 54.9 mmHg (75.0-100.0) L Arterial Blood HCO3 28.6 mmol/L (22.0-26.0) H Arterial Blood Oxygen Saturation 87.7 % (95-100) *L Arterial Blood Base Excess 3.3 (-2-2) H Bryan Test Positive Current Medications Medications (Trade) Dose Ordered Sig/Ivana Route PRN Reason Start Time Stop Time Status Last Admin Dose Admin Acetaminophen (Tylenol) 650 mg EVERY 6 HOURS PRN NG Mild Pain (Pain Scale 1-3) 02/27/20 07:45 03/28/20 07:44 02/28/20 06:00 Amlodipine Besylate (Norvasc) 10 mg DAILY NG 02/27/20 09:00 03/02/20 08:59 02/28/20 09:10 Aspirin (ASA) 81 mg DAILY NG 02/27/20 09:00 03/30/20 08:59 Chlorhexidine Gluconate (Divina-Hex 2%) 1 applic DAILY@2000 TOPIC 02/26/20 20:00 05/26/20 19:59 02/27/20 20:51 Clonidine HCl (Catapres Tab) 0.1 mg Q4H PRN ORAL SBP > 150mmHg 02/06/20 07:00 05/06/20 06:59 02/26/20 14:36 Dextrose (Dextrose 50%) 25 ml Q30M PRN IV Hypoglycemia 01/28/20 22:45 04/27/20 22:44 Dextrose (Dextrose 50%) 50 ml Q30M PRN IV Hypoglycemia 01/28/20 22:45 04/27/20 22:44 Epoetin Haseeb (Epoetin Haseeb-EPBX(NON ESRD)) 8,000 unit WED-WED-WED SUBQ 02/05/20 21:00 05/05/20 20:59 02/26/20 20:47 Fentanyl Citrate 250 ml @ 1 mls/hr Q24H IV 02/28/20 09:30 02/29/20 22:29 02/28/20 10:32 Guaifenesin/ Dextromethorphan (Robitussin DM Syrup) 15 ml Q4H PRN ORAL For Cough 02/12/20 16:53 05/12/20 16:52 02/19/20 22:21 Heparin Sodium (Porcine) (Heparin 5000 units/ml) 5,000 units EVERY 12 HOURS SUBQ 02/28/20 21:00 04/13/20 20:59 Hydralazine HCl (Apresoline) 25 mg Q6H PRN ORAL SBP above 150 02/27/20 23:15 05/27/20 23:14 Insulin Aspart (NovoLOG) Q6HR SUBQ 01/29/20 00:00 04/28/20 00:00 02/28/20 05:57 Insulin Detemir (Levemir) 10 units EVERY 12 HOURS SUBQ 02/27/20 09:00 05/04/20 17:59 02/28/20 10:31 Ipratropium [place] (Atrovent Inh) 1 puffs Q4HRT INH 02/28/20 15:00 03/19/20 17:59 Isosorbide Mononitrate (Imdur) 30 mg DAILY ORAL 02/02/20 09:00 03/03/20 08:59 02/28/20 09:10 Lidocaine (Lidoderm 5% PATCH) 1 patch DAILY TDERMAL 02/11/20 09:30 05/11/20 09:29 02/28/20 09:06 Lorazepam (Ativan 2mg/ml 1ml) 1 mg Q2H PRN IV Agitation 02/23/20 05:15 03/01/20 05:14 02/28/20 06:21 Lorazepam (Ativan) 1 mg Q4H PRN ORAL For Anxiety 02/21/20 22:15 03/04/20 22:14 02/25/20 20:52 Methocarbamol (Robaxin) 500 mg Q8H PRN ORAL muscle spasm 02/11/20 09:30 03/12/20 09:29 02/21/20 05:13 Methylprednisolone Sodium Succinate (Solu-MEDROL) 40 mg Q12HR IVP 02/26/20 21:00 03/07/20 20:59 02/28/20 09:06 Metoprolol Tartrate (Lopressor) 25 mg Q12HR NG 02/27/20 09:00 05/04/20 20:59 02/28/20 09:10 Morphine Sulfate (Morphine Sulfate) 2 mg Q2H PRN IVP For Pain 4-10 02/24/20 15:00 03/02/20 14:59 02/26/20 14:36 Multivitamins (Multivitamins W/ Minerals 15ml Liquid) 15 ml DAILY NG 02/27/20 09:00 03/28/20 08:59 02/28/20 09:06 Nitroglycerin (Ntg) 0.4 mg Q5M PRN SL Prn Chest Pain 02/01/20 08:00 03/02/20 07:59 02/21/20 14:57 Pantoprazole (Protonix) 40 mg EVERY 12 HOURS IVP 02/25/20 10:00 03/24/20 08:59 02/28/20 09:06 Vancomycin HCl ([facility] pharmacy to dose) 1 ea DAILY PRN MISC Per rx protocol 02/13/20 11:30 03/14/20 11:29 Messi Lopez MD Feb 28, 2020 12:12
[2020-02-28] MEDS: HydrALAZINE 25mg tab ORAL PRN (12:17)
--- NOTE | 2020-02-28 16:00 | NUR ---
NURSE NOTES: Sorbitol 30ml every 8 hours PRN order for constipation order obtained from Dr. Pérez.
[2020-02-28] MEDS ORDERED: Sorbitol Solution UD 30ml NG PRN (16:15)
--- NOTE | 2020-02-28 17:03 | NUR ---
CASE MANAGEMENT:REVIEW SI;RESPIRATORY FAILURE~ORALLY INTUBATED. SEPSIS. AC RENAL FAILURE. N-STEMI. BACTEREMIA. 100.5 141 10 181/117 100% ETT/VENT SUPPORT AC 22 TV 550 PEEP 5 FIO2 60% WBC 31.5 H/H 10.2/31.5 NA 149 BUN 40 CR 1.5 BG 201 AST 102 ALP 731 ALB 2.3 IS;ATROVENT ING Q4HRT FENTANYL GTT IV HYDRALAZINE BG Q6 PRN LOPRESSOR NG Q12 NORVASC NG QD SOLU MEDROL IV PROTONIX IV Q12 ATIVAN IV Q2 PRN NOVOLOG INSULIN SQ Q6 ICU STATUS DCP;FROM HOME
--- NOTE | 2020-02-28 17:45 | NUR ---
NURSE NOTES: pharmacy technician instructor at bedside. Patient is for venous duplex scan.
--- NOTE | 2020-02-28 18:00 | NUR ---
NURSE NOTES: Bedbath provided by 2 staff.
[2020-02-28] MEDS ORDERED: 1/2 NS 1000ml IV ONE ×2 (18:50→18:52)
[2020-02-28] MEDS ORDERED: Tubing IV Secondary IV ONE ×3 (18:50→18:52)
[2020-02-28] MEDS ORDERED: NS 275ml ONE (18:52)
[2020-02-28] MEDS ORDERED: D5NS 1000ml IV ONE (18:52)
[2020-02-28] MEDS ORDERED: Tubing Blood Filter IV ONE (18:52)
--- NOTE | 2020-02-28 19:00 | NUR ---
NURSE NOTES: Received patient and report from JO-ANN Salas. Patient is observed resting in bed and noted to opens eyes spontaneously, is restless, noncompliant, impulsive, attempting to pull medical devices and anxious. Pt remains unable to follow commands. FLACC score of 6 noted upon assessment. Pt is currently orally intubated ett 7.5 noted to be 25@ lip line. Pt appears to be tolerating current vent settings well. Vent settings as follows: AC 22 TV 550 FiO2 60% PEEP 8 with an O2 saturation of 100% noted. Bilateral lower lobe breath sounds noted to be diminished upon auscultation. Pt noted to be ST on tele monitor with a HR of 138 with a SBP of 198 noted. R Upper Arm PICC line noted which remains asymptomatic, intact and patent. Central line dressing remains clean, dry and intact. Fentanyl currently infusing at 300mcg/hr as ordered. Active bowel sounds noted in all four quadrants; abdomen remains large, round and soft. OG Tube noted which remains intact and secured. Nepro currently infusing at 45mL/hr as ordered. Flores catheter noted draining yellow urine to gravity. Diagnostics reviewed at bedside. Skin alterations noted. Bilateral soft wrist restraints remain in place for pt safety. Will provide pt education again with resolution of anxiety in order to assess pt for removal criteria. ROM exercises performed per pt tolerance and CMS remains intact. Fall, Aspiration and Skin precautions observed. Pt repositioned for comfort and safety. Pt remains resting in bed; Bed remains in the lowest position with the safety wheels engaged, call light within reach, side rails up x3 and bed alarm activated. Will continue plan of care. Will continue to monitor.
--- NOTE | 2020-02-28 19:15 | NUR ---
NURSE HAND-OFF REPORT: Latest Vital Signs: Temperature 99.5 , Pulse 124 , B/P 141 /107 , Respiratory Rate 26 , O2 SAT 97 , Mechanical Ventilator, O2 Flow Rate . Vital Sign Comment: On fentanyl drip EKG Rhythm: Sinus Tachycardia Rhythm change?: N Latest Pineda Fall Score: 50 Fall Risk: High Risk Safety Measures: Call light Within Reach, Bed Alarm Zone 1, Side Rails Side Rails x3, Bed position Low and Locked. Fall Precautions: Door Sign Report given to Genet Bruce RN.
[2020-02-28] MEDS: Morphine Sulfate 2mg/ml Inj(IV/IM USE ONLY) IVP PRN (19:36)
[2020-02-28] MEDS: Dyna-Hex 2% Top Sol 2oz TOPIC SCH (20:10)
[2020-02-28] MEDS: Heparin 5000 units/ml inj SUBQ SCH (20:12)
[2020-02-28] MEDS: Epoetin Alfa-EPBX (NON ESRD)4000 units/ml vial SUBQ SCH (20:58)
--- NOTE | 2020-02-28 21:00 | NUR ---
NURSE NOTES: PRN Morphine administered for FLACC score of 6 and PRN Ativan administered for anxiety. VS obtained prior to and after administration and remain stable, SBP remains elevated. No s/sx of adverse effects noted. Reassessment of PRN Morphine administration denotes FLACC score of 1 with occasional grimacing noted.Pt provided with a bed bath, oral care and linen change. Pt remains free from s/sx of acute cardiopulmonary distress at this time. Fentanyl continues to infuse at 300mch/hr with a RASS score of -2 noted. Pt repositioned for safety and comfort. Fall, Aspiration and Skin precautions observed. Pt remains resting in bed; Bed remains in the lowest position with the safety wheels engaged, call light within reach, side rails up x3 and bed alarm activated. Will continue plan of care. Will continue to monitor.
--- NOTE | 2020-02-28 21:33 | General Progress Note ---
Subjective Allergies: Coded Allergies: No Known Allergies (Unverified , 07/30/15) Subjective Above noted sedated tolerating TF no BM x 3 days H&H higher D/w RD re TF rate d/w heme re anticoagulation and DVT prophylaxis Objective Last 24 Hour Vital Signs Date Time Temp Pulse Resp B/P (MAP) Pulse Ox O2 Delivery O2 Flow Rate FiO2 02/28/20 20:41 99.9 02/28/20 20:11 119 151/66 02/28/20 20:05 92 22 145/66 100 02/28/20 20:00 100.5 82 22 151/66 (94) 100 02/28/20 20:00 Mechanical Ventilator 02/28/20 20:00 60 02/28/20 19:41 26 151/66 Mechanical Ventilator 60 02/28/20 19:35 124 26 141/107 97 02/28/20 19:15 115 23 100 Mechanical Ventilator 45 100 23 80 02/28/20 19:00 115 23 198/110 (139) 100 02/28/20 18:41 18 188/99 Mechanical Ventilator 60 02/28/20 18:30 116 16 188/107 (134) 100 02/28/20 18:00 109 17 155/95 (115) 100 02/28/20 17:41 16 158/68 Mechanical Ventilator 60 02/28/20 17:30 103 18 158/68 (98) 100 02/28/20 17:00 91 18 134/72 (92) 100 02/28/20 16:41 21 138/78 Mechanical Ventilator 60 02/28/20 16:30 99 21 138/78 (98) 100 02/28/20 16:00 106 18 158/91 (113) 100 02/28/20 16:00 Mechanical Ventilator 02/28/20 16:00 60 02/28/20 15:53 169/105 02/28/20 15:41 13 169/105 Mechanical Ventilator 60 02/28/20 15:30 110 13 169/105 (126) 100 02/28/20 15:28 100 22 100 Mechanical Ventilator 45 110 22 45 02/28/20 15:26 107 02/28/20 15:00 97 16 142/69 (93) 100 02/28/20 14:41 14 153/84 Mechanical Ventilator 60 02/28/20 14:30 102 14 153/84 (107) 100 02/28/20 14:00 103 16 155/90 (111) 100 02/28/20 13:41 15 154/93 Mechanical Ventilator 60 02/28/20 13:32 15 154/93 Mechanical Ventilator 60 02/28/20 13:30 108 16 154/93 (113) 99 02/28/20 13:15 110 16 153/80 (104) 99 02/28/20 13:00 100 13 148/85 (106) 100 02/28/20 12:32 18 151/87 Mechanical Ventilator 60 02/28/20 12:30 103 18 151/87 (108) 100 02/28/20 12:17 158/90 02/28/20 12:00 Mechanical Ventilator 02/28/20 12:00 99.5 104 10 158/90 (112) 100 02/28/20 12:00 106 02/28/20 11:32 15 161/87 Mechanical Ventilator 60 02/28/20 11:30 101 13 161/87 (111) 100 02/28/20 11:14 87 22 100 Mechanical Ventilator 45 85 22 45 02/28/20 11:00 88 4 154/79 (104) 100 02/28/20 10:45 75 19 143/74 (97) 100 02/28/20 10:32 22 135/72 Mechanical Ventilator 60 02/28/20 10:30 85 17 135/72 (93) 100 02/28/20 10:30 17 135/72 Mechanical Ventilator 60 02/28/20 10:00 84 17 139/73 (95) 100 02/28/20 09:30 16 162/88 Mechanical Ventilator 60 02/28/20 09:30 104 16 162/88 (112) 100 02/28/20 09:10 112 166/78 02/28/20 09:10 112 166/78 02/28/20 09:10 166/78 02/28/20 09:07 60 02/28/20 09:00 112 16 166/78 (107) 97 02/28/20 08:30 15 127/71 Mechanical Ventilator 45 02/28/20 08:30 90 15 127/71 (89) 100 02/28/20 08:00 45 02/28/20 08:00 Mechanical Ventilator 02/28/20 08:00 95 0 124/70 (88) 100 02/28/20 07:41 104 02/28/20 07:30 15 160/88 Mechanical Ventilator 45 02/28/20 07:30 113 15 160/88 (112) 96 02/28/20 07:28 110 22 100 Mechanical Ventilator 45 111 22 45 02/28/20 07:00 115 8 167/83 (111) 96 02/28/20 06:51 110 20 154/86 02/28/20 06:30 22 174/114 Mechanical Ventilator 45 02/28/20 06:30 100.5 02/28/20 06:21 129 26 185/108 100 02/28/20 06:00 141 21 181/117 (138) 100 02/28/20 06:00 21 181/113 Mechanical Ventilator 45 02/28/20 05:30 20 149/53 Mechanical Ventilator 45 02/28/20 05:00 97 0 149/83 (105) 100 02/28/20 04:30 20 167/87 Mechanical Ventilator 45 02/28/20 04:15 102 22 97 Mechanical Ventilator 80 02/28/20 04:00 Mechanical Ventilator 02/28/20 04:00 74 02/28/20 04:00 45 02/28/20 04:00 100.0 103 0 149/83 (105) 99 02/28/20 03:30 18 149/83 Mechanical Ventilator 45 02/28/20 03:00 99 0 147/82 (103) 98 02/28/20 02:30 20 170/95 Mechanical Ventilator 45 02/28/20 02:30 102 22 100 Mechanical Ventilator 45 96 22 45 02/28/20 02:00 109 5 170/102 (124) 96 02/28/20 01:30 20 170/94 Mechanical Ventilator 45 02/28/20 01:00 73 0 135/54 (81) 99 02/28/20 00:30 20 145/54 Mechanical Ventilator 45 02/28/20 00:00 Mechanical Ventilator 02/28/20 00:00 85 02/28/20 00:00 99.6 85 16 141/65 (90) 99 02/28/20 00:00 45 02/27/20 23:30 20 147/71 Mechanical Ventilator 45 02/27/20 23:00 83 0 140/66 (90) 99 02/27/20 22:42 83 22 99 Mechanical Ventilator 45 85 22 45 02/27/20 22:30 18 143/71 Mechanical Ventilator 45 02/27/20 22:00 85 0 131/62 (85) 99 02/27/20 22:00 20 171/118 Mechanical Ventilator 45 02/27/20 21:37 84 18 136/76 100 Intake and Output 02/27/20 02/28/20 19:00 07:00 Intake Total 2498.5 ml 1430 ml Output Total 640 ml 660 ml Balance 1858.5 ml 770 ml Free Water 100 ml IV Total 1518.5 ml 910 ml Tube Feeding 420 ml 420 ml Blood Product 500 ml Other 60 ml Output Urine Total 640 ml 660 ml Laboratory Tests 02/27/20 23:24: POC Whole Blood Glucose 150H 02/28/20 03:37: POC Whole Blood Glucose [Pending] 02/28/20 04:30: White Blood Count 31.5#*H, Red Blood Count 3.68L, Hemoglobin 10.2#L, Hematocrit 31.5#L, Mean Corpuscular Volume 86, Mean Corpuscular Hemoglobin 27.7, Mean Corpuscular Hemoglobin Concent 32.4, Red Cell Distribution Width 19.6H, Platelet Count 304, Mean Platelet Volume 6.9, Neutrophils (%) (Auto) , Lymphocytes (%) (Auto) , Monocytes (%) (Auto) , Eosinophils (%) (Auto) , Basophils (%) (Auto) , Differential Total Cells Counted 100, Neutrophils % (Manual) 93H, Lymphocytes % (Manual) 2L, Monocytes % (Manual) 3, Eosinophils % (Manual) 0, Basophils % (Manual) 0, Band Neutrophils 2, Platelet Estimate Adequate, Platelet Morphology Normal, Polychromasia 1+, Hypochromasia 1+, Anisocytosis 2+, Spherocytes , Stomatocytes Occasional, Sodium Level 149H, Potassium Level 4.2, Chloride Level 112H, Carbon Dioxide Level 28, Anion Gap 9, Blood Urea Nitrogen 40H, Creatinine 1.5H, Estimat Glomerular Filtration Rate 42.9, Glucose Level 151H, Calcium Level 8.0L, Phosphorus Level 3.3, Magnesium Level 1.8, Total Bilirubin 1.0, Aspartate Amino Transf (AST/SGOT) 102H, Alanine Aminotransferase (ALT/SGPT) 50, Alkaline Phosphatase 731H, Total Protein 7.1, Albumin 2.3L, Globulin 4.8, Albumin/Globulin Ratio 0.5L, Random Vancomycin Level 11.8 02/28/20 08:48: Arterial Blood pH 7.340L, Arterial Blood Partial Pressure CO2 47.6H, Arterial Blood Partial Pressure O2 54.9L, Arterial Blood HCO3 28.6H, Arterial Blood Oxygen Saturation 87.7*L, Arterial Blood Base Excess 3.3H, Bryan Test Positive 02/28/20 12:21: POC Whole Blood Glucose 201H 02/28/20 17:13: POC Whole Blood Glucose 224H 02/28/20 20:15: POC Whole Blood Glucose [Pending] Height (Feet): 5 Height (Inches): 1.00 Weight (Pounds): 168 Objective Patient seen in ICU On vent calm Assessment/Plan Assessment/Plan: Assessment - GIB - Anemia - COVID pneumonitis, on Steroids but off lovenox - Acute VT - on ASA - Resp failure - malnutrition/feeding tube dependent - declining albumin - partly due to liver disease - fatty liver - hepatitis C with nodular liver, PCR (+) - abnormal LFT - due to COVD, fatty liver, and HCV - HTN - COPD - Lung mass - DM - PSV Recommendations - Continue TF and protein powder - Sq heparin OK from GI standpoint - increase free water to correct Na - monitor CBC - will consider EGD - follow LFT - PPI --> now BID - Elevate HOB - outpatient HCV eradication - Outpatient colonoscopy once recovered from current illness Feliberto Pérez MD Feb 28, 2020 21:33
--- NOTE | 2020-02-28 23:00 | NUR ---
NURSE NOTES: Bedside assessment performed, assessed pt for pain with a FLACC score of 0 noted. Pt remains free from s/sx of acute cardiopulmonary distress at this time. Oral care and suctioning provided for excess secretions. RT present at bedside performing pt care. Pt tolerated care well and remains clean and dry. Fentanyl continues to infuse without incident with a RASS score of -2 noted. Pt repositioned for safety and comfort. Fall, Aspiration and Skin precautions observed. Pt remains resting in bed; Bed remains in the lowest position with the safety wheels engaged, call light within reach, side rails up x3 and bed alarm activated. Will continue plan of care. Will continue to monitor.
[2020-02-29] VITALS (33 sets, daily range): BP systolic 140–196; BP diastolic 65–85
[2020-02-29] MEDS: LORazepam Inj 2mg/ml 1ml IV PRN (01:11)
--- NOTE | 2020-02-29 02:00 | NUR ---
NURSE NOTES: Bedside assessment performed, assessed pt for pain with a FLACC score of 0 noted. Pt remains free from s/sx of acute cardiopulmonary distress at this time. Oral care and suctioning provided for excess secretions. Pt tolerated care well and remains clean and dry. PRN Ativan given for anxiety and PRN clonidine given as ordered for SBP >150. SBP noted to be 175 and unrelieved by nonpharmacological interventions. Will reassess and notify MD as necessary. Fentanyl continues to infuse at 300mcg/hr without incident with a RASS score of -2 noted. Pt repositioned for safety and comfort. Fall, Aspiration and Skin precautions observed. Pt remains resting in bed; Bed remains in the lowest position with the safety wheels engaged, call light within reach, side rails up x3 and bed alarm activated. Will continue plan of care. Will continue to monitor. Addendum: 02/29/20 at 0217 by KEN BARCENAS RN LATE ENTRY: entered for 1:00am noted
--- NOTE | 2020-02-29 03:00 | NUR ---
NURSE NOTES: Bedside assessment performed, assessed pt for pain with a FLACC score of 0 noted. Pt remains free from s/sx of acute cardiopulmonary distress at this time. Oral care and suctioning provided for excess secretions. Pt provided with a partial bed abth and linen change. Pt noted to have black, formed stool. Sample collected for OB stool and sent to laboratory for analysis. Will await results. Pt tolerated care well and remains clean and dry. Fentanyl continues to infuse at 300mcg/hr without incident with a RASS score of -2 noted. Pt repositioned for safety and comfort. Fall, Aspiration and Skin precautions observed. Pt remains resting in bed; Bed remains in the lowest position with the safety wheels engaged, call light within reach, side rails up x3 and bed alarm activated. Will continue plan of care. Will continue to monitor.
--- NOTE | 2020-02-29 05:00 | NUR ---
NURSE NOTES: PRN Morphine administered for FLACC score of 6, no adverse effects noted. PRN Apresoline administered as ordered for SBP >150. SBP >150 noted to be sustained and not altered by nonpharmacological intervention No s/sx of adverse effects noted from previous medication administration. Bedside assessment performed, assessed pt for pain with a FLACC score of 0 noted. Pt remains free from s/sx of acute cardiopulmonary distress at this time. Oral care and suctioning provided for excess secretions. Pt tolerated care well and remains clean and dry. Fentanyl continues to infuse at 300mcg/hr without incident with a RASS score of -2 noted. Pt repositioned for safety and comfort. Fall, Aspiration and Skin precautions observed. Pt remains resting in bed; Bed remains in the lowest position with the safety wheels engaged, call light within reach, side rails up x3 and bed alarm activated. Will continue plan of care. Will continue to monitor.
[2020-02-29] MEDS: Morphine Sulfate 2mg/ml Inj(IV/IM USE ONLY) IVP PRN (05:06)
[2020-02-29] MEDS: HydrALAZINE 25mg tab ORAL PRN ×2 (05:06→13:54)
[2020-02-29] MEDS: NovoLOG Insulin Flexpen SUBQ SCH ×4 (05:23→17:54)
[2020-02-29 05:40] LABS: ALBUMIN 1.7 G/DL (3.4-5.0); ALBUMIN/GLOBULIN RATIO 0.4 (1.0-2.7); BILIRUBIN,TOTAL 0.8 MG/DL (0.2-1.0); CALCIUM 7.6 MG/DL (8.5-10.1); CREATININE 1.5 MG/DL (0.55-1.30); POTASSIUM 3.3 MMOL/L (3.5-5.1)
[2020-02-29] MEDS: fentaNYL 2500mcg/NS 250ml 250 ML IV SCH ×3 (05:59→22:02)
[2020-02-29 06:02] LABS: HEMATOCRIT 25.7 % (37.0-47.0); HEMOGLOBIN 8.7 G/DL (12.0-16.0); MEAN CORPUSCULAR VOLUME 86 FL (80-99); PLATELET COUNT 171 K/UL (150-450); RED CELL DISTRIBUTION WIDTH 19.9 % (11.6-14.8)
--- NOTE | 2020-02-29 06:20 | NUR ---
NURSE NOTES: Dr Ohara present at bedside to assess patient. Discussed current pt condition and plan of care. PRN Versed ordered. Will carry out orders.
[2020-02-29 06:42] LABS: WHITE BLOOD COUNT 23.1 K/UL (4.8-10.8)
--- NOTE | 2020-02-29 06:47 | NUR ---
NURSE NOTES: Discussed abnormal morning lab values with Dr Ohara while still present on unit. 40meq KCL IV ordered, refer to Dr Eason regarding elevated Na of 152 for additional orders. Will carry out orders and continue to monitor.
--- NOTE | 2020-02-29 07:07 | NUR ---
NURSE HAND-OFF REPORT: Latest Vital Signs: Temperature 99.4 , Pulse 87 , B/P 151 /67 , Respiratory Rate 0 , O2 SAT 98 , Mechanical Ventilator, O2 Flow Rate . Vital Sign Comment: VS are stable at this time EKG Rhythm: Sinus Rhythm Rhythm change?: N Notified?: N Response: N/A Latest Pineda Fall Score: 50 Fall Risk: High Risk Safety Measures: Call light Within Reach, Bed Alarm Zone 2, Side Rails Side Rails x3, Bed position Low and Locked. Fall Precautions: Door Sign Report given to JO-ANN Almeida .
--- NOTE | 2020-02-29 07:17 | Hematology/Onc Progress Note ---
Assessment/Plan Assessment/Plan ASSESSMENT/RECS #. 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 --> Currently, no evidence of malignancy. --> Continue to closely monitor and also for improvement. --> per Dr. Galeana the patient may be a candidate for right video-assisted thoracoscopic surgery with a biopsy. However, the patient at the present time does not want to proceed with surgery. #. Leukocytosis with COVID19++ and Asthma exacerbation. --> intubated --> wbc 18-->17--.[id number]_.[id number] --> on methylprednisone/remdimsivir # Anemia likely of chronic disease --> transfuse as needed --> on epo --> hgb 8.2-->6.9-->10.2-->8.7 --> 1 unit prbc 02/26 --> dw Dr. Pérez and will change lovenox to heparin # Gastritis. # Constipation. # Cavitary pneumonia with MRSA # Staph aureus (MRSA) sepsis # diabetes mellitus # hypertension # COPD # renal failure # aortic stenosis # Hypercapnic/ hypoxic respiratory failure on vent # Dvt ppx heparin sq Appreciate consultation and ailyn Rn Subjective Constitutional: Denies: no symptoms, chills, fever, malaise, weakness, other HEENT: Denies: no symptoms, eye pain, blurred vision, tearing, double vision, ear pain, ear discharge, nose pain, nose congestion, throat pain, throat swelling, mouth pain, mouth swelling, other Cardiovascular: Denies: no symptoms, chest pain, edema, irregular heart rate, lightheadedness, palpitations, syncope, other Neurologic/Psychiatric: Denies: no symptoms, anxiety, depressed, emotional problems, headache, numbness, paresthesia, pre-existing deficit, seizure, tingling, tremors, weakness, other Endocrine: Denies: no symptoms, excessive sweating, flushing, intolerance to c old, intolerance to heat, increased hunger, increased thirst, increased urine, unexplained weight gain, unexplained weight loss, other Hematologic/Lymphatic: Denies: no symptoms, anemia, easy bleeding, easy bruising, adenopathy, other Allergies: Coded Allergies: No Known Allergies (Unverified , 07/30/15) Subjective 02/25 agitated, restless, on mech vent, labs noted, hgb better 02/26 icu, on vent, hgb 6.9, to get 1 unit prbc today, no bleeding 02/27 icu, on restraints, hgb has improved, no bleeding 02/28 icu, wbc remains elevated, versed given this am for agitation and high bp Objective Objective Current Medications Medications (Trade) Dose Ordered Sig/Ivana Route PRN Reason Start Time Stop Time Status Last Admin Dose Admin Acetaminophen (Tylenol) 650 mg EVERY 6 HOURS PRN NG Mild Pain (Pain Scale 1-3) 02/27/20 07:45 03/28/20 07:44 02/28/20 20:11 Amlodipine Besylate (Norvasc) 10 mg DAILY NG 02/27/20 09:00 03/02/20 08:59 02/28/20 09:10 Aspirin (ASA) 81 mg DAILY NG 02/27/20 09:00 03/30/20 08:59 Chlorhexidine Gluconate (Divina-Hex 2%) 1 applic DAILY@2000 TOPIC 02/26/20 20:00 05/26/20 19:59 02/28/20 20:10 Clonidine HCl (Catapres Tab) 0.1 mg Q4H PRN ORAL SBP > 150mmHg 02/06/20 07:00 05/06/20 06:59 02/29/20 01:11 Dextrose (Dextrose 50%) 25 ml Q30M PRN IV Hypoglycemia 01/28/20 22:45 04/27/20 22:44 Dextrose (Dextrose 50%) 50 ml Q30M PRN IV Hypoglycemia 01/28/20 22:45 04/27/20 22:44 Epoetin Haseeb (Epoetin Haseeb-EPBX(NON ESRD)) 8,000 unit WED-WED-WED SUBQ 02/05/20 21:00 05/05/20 20:59 02/28/20 20:58 Fentanyl Citrate 250 ml @ 1 mls/hr Q24H IV 02/28/20 09:30 02/29/20 22:29 02/29/20 05:59 Guaifenesin/ Dextromethorphan (Robitussin DM Syrup) 15 ml Q4H PRN ORAL For Cough 02/12/20 16:53 05/12/20 16:52 02/19/20 22:21 Heparin Sodium (Porcine) (Heparin 5000 units/ml) 5,000 units EVERY 12 HOURS SUBQ 02/28/20 21:00 04/13/20 20:59 02/28/20 20:12 Hydralazine HCl (Apresoline) 25 mg Q6H PRN ORAL SBP above 150 02/27/20 23:15 05/27/20 23:14 02/29/20 05:06 Insulin Aspart (NovoLOG) Q6HR SUBQ 01/29/20 00:00 04/28/20 00:00 02/29/20 05:23 Insulin Detemir (Levemir) 10 units EVERY 12 HOURS SUBQ 02/27/20 09:00 05/04/20 17:59 02/28/20 20:59 Ipratropium [place] (Atrovent Inh) 1 puffs Q4HRT INH 02/28/20 15:00 03/19/20 17:59 02/28/20 23:39 Isosorbide Mononitrate (Imdur) 30 mg DAILY ORAL 02/02/20 09:00 03/03/20 08:59 02/28/20 09:10 Lidocaine (Lidoderm 5% PATCH) 1 patch DAILY TDERMAL 02/11/20 09:30 05/11/20 09:29 02/28/20 09:06 Lorazepam (Ativan 2mg/ml 1ml) 1 mg Q2H PRN IV Agitation 02/23/20 05:15 02/29/20 07:30 02/29/20 01:11 Methocarbamol (Robaxin) 500 mg Q8H PRN ORAL muscle spasm 02/11/20 09:30 03/12/20 09:29 02/21/20 05:13 Methylprednisolone Sodium Succinate (Solu-MEDROL) 10 mg ONCE IVP 03/02/20 09:00 03/02/20 11:00 Methylprednisolone Sodium Succinate (Solu-MEDROL) 20 mg ONCE IVP 03/01/20 09:00 03/01/20 11:00 Methylprednisolone Sodium Succinate (Solu-MEDROL) 30 mg ONCE IVP 02/29/20 09:00 02/29/20 11:00 Metoprolol Tartrate (Lopressor) 25 mg Q12HR NG 02/27/20 09:00 05/04/20 20:59 02/28/20 20:11 Midazolam HCl 50 mg/Sodium Chloride 100 ml @ 0 mls/hr Q24H PRN IV SEDATION 02/29/20 07:30 03/02/20 07:29 Morphine Sulfate (Morphine Sulfate) 2 mg Q2H PRN IVP For Pain 4-10 02/24/20 15:00 03/02/20 14:59 02/29/20 05:06 Multivitamins (Multivitamins W/ Minerals 15ml Liquid) 15 ml DAILY NG 02/27/20 09:00 03/28/20 08:59 02/28/20 09:06 Nitroglycerin (Ntg) 0.4 mg Q5M PRN SL Prn Chest Pain 02/01/20 08:00 03/02/20 07:59 02/21/20 14:57 Pantoprazole (Protonix) 40 mg EVERY 12 HOURS IVP 02/25/20 10:00 03/24/20 08:59 02/28/20 20:10 Potassium Chloride 100 ml @ 50 mls/hr Q2H IVPB 02/29/20 07:00 02/29/20 10:59 Sorbitol (sorbitoL) 30 ml Q8H PRN NG Constipation 02/28/20 16:15 03/29/20 16:14 02/28/20 17:08 Vancomycin HCl ([facility] pharmacy to dose) 1 ea DAILY PRN MISC Per rx protocol 02/13/20 11:30 03/14/20 11:29 Last 24 Hour Vital Signs Date Time Temp Pulse Resp B/P (MAP) Pulse Ox O2 Delivery O2 Flow Rate FiO2 02/29/20 07:00 87 0 151/67 (95) 98 02/29/20 06:41 22 151/67 Mechanical Ventilator 60 02/29/20 06:00 77 22 158/65 (96) 99 02/29/20 05:59 22 166/77 Mechanical Ventilator 60 02/29/20 05:41 22 166/77 Mechanical Ventilator 60 02/29/20 05:06 166/77 02/29/20 05:00 89 22 166/77 (106) 99 02/29/20 04:41 22 152/71 Mechanical Ventilator 60 02/29/20 04:20 79 02/29/20 04:20 86 22 100 Mechanical Ventilator 45 100 23 80 02/29/20 04:00 Mechanical Ventilator 02/29/20 04:00 60 02/29/20 04:00 99.4 70 22 152/71 (98) 99 02/29/20 03:41 22 154/77 Mechanical Ventilator 60 02/29/20 03:00 87 22 154/77 (102) 100 02/29/20 02:41 22 158/77 Mechanical Ventilator 60 02/29/20 02:00 82 22 158/77 (104) 98 02/29/20 01:41 22 175/79 Mechanical Ventilator 60 02/29/20 01:41 89 22 154/77 100 02/29/20 01:11 103 26 184/74 97 02/29/20 01:11 184/74 02/29/20 01:00 101 22 175/79 (111) 100 02/29/20 00:41 22 170/68 Mechanical Ventilator 60 02/29/20 00:00 99.7 75 22 170/68 (102) 100 02/29/20 00:00 Mechanical Ventilator 02/29/20 00:00 60 02/28/20 23:41 22 155/66 Mechanical Ventilator 60 02/28/20 23:10 81 22 100 Mechanical Ventilator 45 100 23 80 02/28/20 23:00 67 22 155/66 (95) 100 02/28/20 22:41 22 163/70 Mechanical Ventilator 60 02/28/20 22:26 66 20 157/65 100 02/28/20 22:00 79 22 163/70 (101) 100 02/28/20 21:58 24 164/70 Mechanical Ventilator 60 02/28/20 21:56 80 24 164/70 98 02/28/20 21:41 22 152/62 Mechanical Ventilator 60 02/28/20 21:00 75 22 152/62 (92) 100 02/28/20 20:41 99.9 02/28/20 20:30 73 02/28/20 20:11 119 151/66 02/28/20 20:05 92 22 145/66 100 02/28/20 20:00 100.5 82 22 151/66 (94) 100 02/28/20 20:00 Mechanical Ventilator 02/28/20 20:00 60 02/28/20 19:41 26 151/66 Mechanical Ventilator 60 02/28/20 19:35 124 26 141/107 97 12/2/20 19:15 115 23 100 Mechanical Ventilator 45 100 23 80 02/28/20 19:00 115 23 198/110 (139) 100 02/28/20 18:41 18 188/99 Mechanical Ventilator 60 02/28/20 18:30 116 16 188/107 (134) 100 02/28/20 18:00 109 17 155/95 (115) 100 02/28/20 17:41 16 158/68 Mechanical Ventilator 60 02/28/20 17:30 103 18 158/68 (98) 100 02/28/20 17:00 91 18 134/72 (92) 100 02/28/20 16:41 21 138/78 Mechanical Ventilator 60 02/28/20 16:30 99 21 138/78 (98) 100 02/28/20 16:00 106 18 158/91 (113) 100 02/28/20 16:00 Mechanical Ventilator 02/28/20 16:00 60 02/28/20 15:53 169/105 02/28/20 15:41 13 169/105 Mechanical Ventilator 60 02/28/20 15:30 110 13 169/105 (126) 100 02/28/20 15:28 100 22 100 Mechanical Ventilator 45 110 22 45 02/28/20 15:26 107 02/28/20 15:00 97 16 142/69 (93) 100 02/28/20 14:41 14 153/84 Mechanical Ventilator 60 02/28/20 14:30 102 14 153/84 (107) 100 02/28/20 14:00 103 16 155/90 (111) 100 02/28/20 13:41 15 154/93 Mechanical Ventilator 60 02/28/20 13:32 15 154/93 Mechanical Ventilator 60 02/28/20 13:30 108 16 154/93 (113) 99 02/28/20 13:15 110 16 153/80 (104) 99 02/28/20 13:00 100 13 148/85 (106) 100 02/28/20 12:32 18 151/87 Mechanical Ventilator 60 02/28/20 12:30 103 18 151/87 (108) 100 02/28/20 12:17 158/90 02/28/20 12:00 Mechanical Ventilator 02/28/20 12:00 99.5 104 10 158/90 (112) 100 02/28/20 12:00 106 02/28/20 11:32 15 161/87 Mechanical Ventilator 60 02/28/20 11:30 101 13 161/87 (111) 100 02/28/20 11:14 87 22 100 Mechanical Ventilator 45 85 22 45 02/28/20 11:00 88 4 154/79 (104) 100 02/28/20 10:45 75 19 143/74 (97) 100 02/28/20 10:32 22 135/72 Mechanical Ventilator 60 02/28/20 10:30 85 17 135/72 (93) 100 02/28/20 10:30 17 135/72 Mechanical Ventilator 60 02/28/20 10:00 84 17 139/73 (95) 100 02/28/20 09:30 16 162/88 Mechanical Ventilator 60 02/28/20 09:30 104 16 162/88 (112) 100 02/28/20 09:10 112 166/78 02/28/20 09:10 112 166/78 02/28/20 09:10 166/78 02/28/20 09:07 60 02/28/20 09:00 112 16 166/78 (107) 97 02/28/20 08:30 15 127/71 Mechanical Ventilator 45 02/28/20 08:30 90 15 127/71 (89) 100 02/28/20 08:00 45 02/28/20 08:00 Mechanical Ventilator 02/28/20 08:00 95 0 124/70 (88) 100 02/28/20 07:41 104 02/28/20 07:30 15 160/88 Mechanical Ventilator 45 02/28/20 07:30 113 15 160/88 (112) 96 02/28/20 07:28 110 22 100 Mechanical Ventilator 45 111 22 45 02/28/20 07:00 115 8 167/83 (111) 96 02/28/20 06:51 110 20 154/86 02/28/20 06:30 22 174/114 Mechanical Ventilator 45 02/28/20 06:30 100.5 02/28/20 06:21 129 26 185/108 100 02/28/20 06:00 141 21 181/117 (138) 100 02/28/20 06:00 21 181/113 Mechanical Ventilator 45 02/28/20 05:30 20 149/53 Mechanical Ventilator 45 02/28/20 05:00 97 0 149/83 (105) 100 02/28/20 04:30 20 167/87 Mechanical Ventilator 45 02/28/20 04:15 102 22 97 Mechanical Ventilator 80 02/28/20 04:00 Mechanical Ventilator 02/28/20 04:00 74 02/28/20 04:00 45 02/28/20 04:00 100.0 103 0 149/83 (105) 99 02/28/20 03:30 18 149/83 Mechanical Ventilator 45 02/28/20 03:00 99 0 147/82 (103) 98 02/28/20 02:30 20 170/95 Mechanical Ventilator 45 02/28/20 02:30 102 22 100 Mechanical Ventilator 45 96 22 45 02/28/20 02:00 109 5 170/102 (124) 96 02/28/20 01:30 20 170/94 Mechanical Ventilator 45 02/28/20 01:00 73 0 135/54 (81) 99 02/28/20 00:30 20 145/54 Mechanical Ventilator 45 02/28/20 00:00 Mechanical Ventilator 02/28/20 00:00 85 02/28/20 00:00 99.6 85 16 141/65 (90) 99 02/28/20 00:00 45 02/27/20 23:30 20 147/71 Mechanical Ventilator 45 02/27/20 23:00 83 0 140/66 (90) 99 02/27/20 22:42 83 22 99 Mechanical Ventilator 45 85 22 45 02/27/20 22:30 18 143/71 Mechanical Ventilator 45 02/27/20 22:00 85 0 131/62 (85) 99 02/27/20 22:00 20 171/118 Mechanical Ventilator 45 02/27/20 21:37 84 18 136/76 100 02/27/20 21:07 126 33 171/118 100 02/27/20 21:00 81 4 171/118 (135) 100 02/27/20 20:55 20 154/80 Mechanical Ventilator 45 02/27/20 20:55 20 146/64 45 02/27/20 20:53 84 146/64 02/27/20 20:18 20 134/56 Mechanical Ventilator 45 02/27/20 20:00 Mechanical Ventilator 02/27/20 20:00 99.6 80 0 143/68 (93) 99 02/27/20 20:00 84 02/27/20 20:00 45 02/27/20 19:18 20 151/61 Mechanical Ventilator 45 02/27/20 19:00 99.4 101 21 166/84 (111) 97 02/27/20 18:57 103 22 100 Mechanical Ventilator 45 100 22 45 02/27/20 18:18 17 153/73 Mechanical Ventilator 45 02/27/20 18:00 94 17 153/73 (99) 98 02/27/20 17:45 90 16 149/91 (110) 98 02/27/20 17:30 92 21 158/74 (102) 99 02/27/20 17:18 17 173/104 Mechanical Ventilator 45 02/27/20 17:15 102 16 173/104 (127) 93 02/27/20 17:00 107 3 172/84 (113) 95 02/27/20 16:45 92 0 149/75 (99) 97 02/27/20 16:35 45 02/27/20 16:30 102 0 160/80 (106) 92 02/27/20 16:18 17 168/94 Mechanical Ventilator 45 02/27/20 16:15 110 17 168/94 (118) 97 02/27/20 16:00 45 02/27/20 16:00 100.4 95 22 149/76 (100) 100 02/27/20 16:00 Mechanical Ventilator 02/27/20 15:27 94 22 45 02/27/20 15:22 95 02/27/20 15:18 21 167/68 Mechanical Ventilator 45 02/27/20 15:00 78 21 167/68 (101) 99 02/27/20 14:29 76 14 172/74 99 02/27/20 14:18 21 189/79 Mechanical Ventilator 45 02/27/20 14:00 97 22 189/79 (115) 94 02/27/20 13:59 115 24 163/84 92 02/27/20 13:30 99 22 163/84 (110) 94 02/27/20 13:18 16 160/76 Mechanical Ventilator 45 02/27/20 13:00 84 22 160/76 (104) 99 02/27/20 12:18 24 181/109 Mechanical Ventilator 45 02/27/20 12:15 24 167/83 Mechanical Ventilator 45 02/27/20 12:00 99.3 88 21 167/83 (111) 96 02/27/20 12:00 45 02/27/20 12:00 Mechanical Ventilator 02/27/20 11:33 94 02/27/20 11:15 18 146/80 Mechanical Ventilator 45 02/27/20 11:01 85 22 100 Mechanical Ventilator 45 84 22 45 02/27/20 11:00 81 16 146/80 (102) 100 02/27/20 10:15 16 153/76 Mechanical Ventilator 45 02/27/20 10:00 95 0 153/76 (101) 94 02/27/20 09:15 16 178/105 Mechanical Ventilator 45 02/27/20 09:00 125 16 178/105 (129) 90 02/27/20 08:45 80 142/122 02/27/20 08:45 80 142/122 02/27/20 08:45 142/122 02/27/20 08:15 16 142/122 Mechanical Ventilator 45 02/27/20 08:00 45 02/27/20 08:00 99.0 80 0 142/122 (129) 96 02/27/20 08:00 Mechanical Ventilator 02/27/20 07:30 76 02/27/20 07:29 86 22 45 Intake and Output0 02/28/20 02/29/20 19:00 07:00 Intake Total 1179.500 ml 1338.0 ml Output Total 600 ml 400 ml Balance 579.500 ml 938.0 ml Free Water 430 ml IV Total 639.500 ml 368.0 ml Tube Feeding 540 ml 540 ml Output Urine Total 600 ml 400 ml # Bowel Movements 1 Labs Test 02/27/20 03:40 02/27/20 08:57 02/27/20 12:09 02/27/20 17:20 White Blood Count 16.8 K/UL (4.8-10.8) Red Blood Count 2.31 M/UL (4.20-5.40) Hemoglobin 6.9 G/DL (12.0-16.0) Hematocrit 20.1 % (37.0-47.0) Mean Corpuscular Volume 87 FL (80-99) Mean Corpuscular Hemoglobin 29.7 PG (27.0-31.0) Mean Corpuscular Hemoglobin Concent 34.2 G/DL (32.0-36.0) Red Cell Distribution Width 18.8 % (11.6-14.8) Platelet Count 338 K/UL (150-450) Mean Platelet Volume 6.3 FL (6.5-10.1) Neutrophils (%) (Auto) % (45.0-75.0) Lymphocytes (%) (Auto) % (20.0-45.0) Monocytes (%) (Auto) % (1.0-10.0) Eosinophils (%) (Auto) % (0.0-3.0) Basophils (%) (Auto) % (0.0-2.0) Differential Total Cells Counted 100 Neutrophils % (Manual) 94 % (45-75) Lymphocytes % (Manual) 2 % (20-45) Monocytes % (Manual) 4 % (1-10) Eosinophils % (Manual) 0 % (0-3) Basophils % (Manual) 0 % (0-2) Band Neutrophils 0 % (0-8) Platelet Estimate Adequate Platelet Morphology Normal Polychromasia 1+ Hypochromasia 1+ Anisocytosis 2+ Sodium Level 150 MMOL/L (136-145) Potassium Level 3.4 MMOL/L (3.5-5.1) Chloride Level 114 MMOL/L (98-107) Carbon Dioxide Level 28 MMOL/L (21-32) Blood Urea Nitrogen 42 mg/dL (7-18) Creatinine 1.2 MG/DL (0.55-1.30) Estimat Glomerular Filtration Rate 55.6 mL/min (>60) Glucose Level 118 MG/DL (74-106) Calcium Level 7.6 MG/DL (8.5-10.1) Total Bilirubin 0.4 MG/DL (0.2-1.0) Direct Bilirubin 0.2 MG/DL (0.0-0.3) Aspartate Amino Transf (AST/SGOT) 84 U/L (15-37) Alanine Aminotransferase (ALT/SGPT) 28 U/L (12-78) Alkaline Phosphatase 577 U/L (46-116) Total Protein 5.9 G/DL (6.4-8.2) Albumin 1.7 G/DL (3.4-5.0) Globulin 4.2 g/dL Albumin/Globulin Ratio 0.4 (1.0-2.7) Random Vancomycin Level 7.2 ug/mL POC Whole Blood Glucose 148 MG/DL (74-106) 226 MG/DL (74-106) Test 02/27/20 21:00 02/27/20 23:24 02/28/20 03:37 02/28/20 04:30 POC Whole Blood Glucose 150 MG/DL (74-106) White Blood Count 31.5 K/UL (4.8-10.8) Red Blood Count 3.68 M/UL (4.20-5.40) Hemoglobin 10.2 G/DL (12.0-16.0) Hematocrit 31.5 % (37.0-47.0) Mean Corpuscular Volume 86 FL (80-99) Mean Corpuscular Hemoglobin 27.7 PG (27.0-31.0) Mean Corpuscular Hemoglobin Concent 32.4 G/DL (32.0-36.0) Red Cell Distribution Width 19.6 % (11.6-14.8) Platelet Count 304 K/UL (150-450) Mean Platelet Volume 6.9 FL (6.5-10.1) Neutrophils (%) (Auto) % (45.0-75.0) Lymphocytes (%) (Auto) % (20.0-45.0) Monocytes (%) (Auto) % (1.0-10.0) Eosinophils (%) (Auto) % (0.0-3.0) Basophils (%) (Auto) % (0.0-2.0) Differential Total Cells Counted 100 Neutrophils % (Manual) 93 % (45-75) Lymphocytes % (Manual) 2 % (20-45) Monocytes % (Manual) 3 % (1-10) Eosinophils % (Manual) 0 % (0-3) Basophils % (Manual) 0 % (0-2) Band Neutrophils 2 % (0-8) Platelet Estimate Adequate Platelet Morphology Normal Polychromasia 1+ Hypochromasia 1+ Anisocytosis 2+ Spherocytes Stomatocytes Occasional Sodium Level 149 MMOL/L (136-145) Potassium Level 4.2 MMOL/L (3.5-5.1) Chloride Level 112 MMOL/L (98-107) Carbon Dioxide Level 28 MMOL/L (21-32) Anion Gap 9 mmol/L (5-15) Blood Urea Nitrogen 40 mg/dL (7-18) Creatinine 1.5 MG/DL (0.55-1.30) Estimat Glomerular Filtration Rate 42.9 mL/min (>60) Glucose Level 151 MG/DL (74-106) Calcium Level 8.0 MG/DL (8.5-10.1) Phosphorus Level 3.3 MG/DL (2.5-4.9) Magnesium Level 1.8 MG/DL (1.8-2.4) Total Bilirubin 1.0 MG/DL (0.2-1.0) Aspartate Amino Transf (AST/SGOT) 102 U/L (15-37) Alanine Aminotransferase (ALT/SGPT) 50 U/L (12-78) Alkaline Phosphatase 731 U/L (46-116) Total Protein 7.1 G/DL (6.4-8.2) Albumin 2.3 G/DL (3.4-5.0) Globulin 4.8 g/dL Albumin/Globulin Ratio 0.5 (1.0-2.7) Random Vancomycin Level 11.8 ug/mL Test 02/28/20 08:48 02/28/20 12:21 02/28/20 17:13 02/28/20 20:15 Arterial Blood pH 7.340 (7.350-7.450) Arterial Blood Partial Pressure CO2 47.6 mmHg (35.0-45.0) Arterial Blood Partial Pressure O2 54.9 mmHg (75.0-100.0) Arterial Blood HCO3 28.6 mmol/L (22.0-26.0) Arterial Blood Oxygen Saturation 87.7 % (95-100) Arterial Blood Base Excess 3.3 (-2-2) Bryan Test Positive POC Whole Blood Glucose 201 MG/DL (74-106) 224 MG/DL (74-106) Test 02/28/20 23:42 02/29/20 04:00 02/29/20 04:15 POC Whole Blood Glucose 188 MG/DL (74-106) White Blood Count 23.1 K/UL (4.8-10.8) Red Blood Count 3.00 M/UL (4.20-5.40) Hemoglobin 8.7 G/DL (12.0-16.0) Hematocrit 25.7 % (37.0-47.0) Mean Corpuscular Volume 86 FL (80-99) Mean Corpuscular Hemoglobin 29.0 PG (27.0-31.0) Mean Corpuscular Hemoglobin Concent 33.9 G/DL (32.0-36.0) Red Cell Distribution Width 19.9 % (11.6-14.8) Platelet Count 171 K/UL (150-450) Mean Platelet Volume 7.1 FL (6.5-10.1) Neutrophils (%) (Auto) % (45.0-75.0) Lymphocytes (%) (Auto) % (20.0-45.0) Monocytes (%) (Auto) % (1.0-10.0) Eosinophils (%) (Auto) % (0.0-3.0) Basophils (%) (Auto) % (0.0-2.0) Sodium Level 152 MMOL/L (136-145) Potassium Level 3.3 MMOL/L (3.5-5.1) Chloride Level 117 MMOL/L (98-107) Carbon Dioxide Level 27 MMOL/L (21-32) Anion Gap 8 mmol/L (5-15) Blood Urea Nitrogen 40 mg/dL (7-18) Creatinine 1.5 MG/DL (0.55-1.30) Estimat Glomerular Filtration Rate 42.9 mL/min (>60) Glucose Level 148 MG/DL (74-106) Calcium Level 7.6 MG/DL (8.5-10.1) Total Bilirubin 0.8 MG/DL (0.2-1.0) Aspartate Amino Transf (AST/SGOT) 78 U/L (15-37) Alanine Aminotransferase (ALT/SGPT) 39 U/L (12-78) Alkaline Phosphatase 589 U/L (46-116) Total Protein 5.8 G/DL (6.4-8.2) Albumin 1.7 G/DL (3.4-5.0) Globulin 4.1 g/dL Albumin/Globulin Ratio 0.4 (1.0-2.7) Random Vancomycin Level 14.7 ug/mL Height (Feet): 5 Height (Inches): 1.00 Weight (Pounds): 168 Objective PHYSICAL EXAMINATION: GENERAL: An obese woman, seen in the ICU in her room. HEENT: Normocephalic and atraumatic. Sclerae are anicteric. NECK: Supple. ++vent CHEST: Exam revealed coarse breath sounds. CARDIOVASCULAR: Exam revealed a tachycardic heart rate. ABDOMEN: Soft, obese, and nontender. EXTREMITIES: Trace edema. Rodolfo Ohara MD Feb 29, 2020 07:17
--- NOTE | 2020-02-29 07:30 | NUR ---
NURSE NOTES: Patient received from [facility]. Patient AOx0, sedated but arousable. RASS -2. ETT and vented. Cardiac sounds benign. Breath sounds diminished. Bowel sounds active. OGT in place with feeding infusing. Flores in place draining yellow urine. Side rails up x2, call light within reach, bed low and locked. Restraints on with good ROM, sensation and circulation.
[2020-02-29] MEDS: Ipratropium Bromide Inhaler INH SCH ×7 (07:35→23:44)
--- NOTE | 2020-02-29 08:09 | Infectious Diseases Prog Note ---
Assessment/Plan Assessment/Plan A 1. cavitary pneumonia with MRSA sputum AFB negative x 3 2. staph aureus (MRSA) sepsis 3. diabetes mellitus 4. hypertension 5. COPD 6. renal failure 7. aortic stenosis 8. Anemia 9. CHF, EF=40-45% 10. COVID19 pneumonia 11. Hypercapnic/ hypoxic respiratory failure P 1. Continue IV Vancomycin X 14 days 2. Tapering Solumedrol 3. Finished Remdesivir course Subjective ROS Limited/Unobtainable: Yes Constitutional: Reports: fever, other - Ja=667.5 last night Allergies: Coded Allergies: No Known Allergies (Unverified , 07/30/15) Objective Last 24 Hour Vital Signs Date Time Temp Pulse Resp B/P (MAP) Pulse Ox O2 Delivery O2 Flow Rate FiO2 02/29/20 07:00 87 0 151/67 (95) 98 02/29/20 06:41 22 151/67 Mechanical Ventilator 60 02/29/20 06:00 77 22 158/65 (96) 99 02/29/20 05:59 22 166/77 Mechanical Ventilator 60 02/29/20 05:41 22 166/77 Mechanical Ventilator 60 02/29/20 05:06 166/77 02/29/20 05:00 89 22 166/77 (106) 99 02/29/20 04:41 22 152/71 Mechanical Ventilator 60 02/29/20 04:20 79 02/29/20 04:20 86 22 100 Mechanical Ventilator 45 100 23 80 02/29/20 04:00 Mechanical Ventilator 02/29/20 04:00 60 02/29/20 04:00 99.4 70 22 152/71 (98) 99 02/29/20 03:41 22 154/77 Mechanical Ventilator 60 02/29/20 03:00 87 22 154/77 (102) 100 02/29/20 02:41 22 158/77 Mechanical Ventilator 60 02/29/20 02:00 82 22 158/77 (104) 98 02/29/20 01:41 22 175/79 Mechanical Ventilator 60 02/29/20 01:41 89 22 154/77 100 02/29/20 01:11 103 26 184/74 97 02/29/20 01:11 184/74 02/29/20 01:00 101 22 175/79 (111) 100 02/29/20 00:41 22 170/68 Mechanical Ventilator 60 02/29/20 00:00 99.7 75 22 170/68 (102) 100 02/29/20 00:00 Mechanical Ventilator 02/29/20 00:00 60 02/28/20 23:41 22 155/66 Mechanical Ventilator 60 02/28/20 23:10 81 22 100 Mechanical Ventilator 45 100 23 80 02/28/20 23:00 67 22 155/66 (95) 100 02/28/20 22:41 22 163/70 Mechanical Ventilator 60 02/28/20 22:26 66 20 157/65 100 02/28/20 22:00 79 22 163/70 (101) 100 02/28/20 21:58 24 164/70 Mechanical Ventilator 60 02/28/20 21:56 80 24 164/70 98 02/28/20 21:41 22 152/62 Mechanical Ventilator 60 02/28/20 21:00 75 22 152/62 (92) 100 02/28/20 20:41 99.9 02/28/20 20:30 73 02/28/20 20:11 119 151/66 02/28/20 20:05 92 22 145/66 100 02/28/20 20:00 100.5 82 22 151/66 (94) 100 02/28/20 20:00 Mechanical Ventilator 02/28/20 20:00 60 02/28/20 19:41 26 151/66 Mechanical Ventilator 60 02/28/20 19:35 124 26 141/107 97 02/28/20 19:15 115 23 100 Mechanical Ventilator 45 100 23 80 02/28/20 19:00 115 23 198/110 (139) 100 02/28/20 18:41 18 188/99 Mechanical Ventilator 60 02/28/20 18:30 116 16 188/107 (134) 100 02/28/20 18:00 109 17 155/95 (115) 100 02/28/20 17:41 16 158/68 Mechanical Ventilator 60 02/28/20 17:30 103 18 158/68 (98) 100 02/28/20 17:00 91 18 134/72 (92) 100 02/28/20 16:41 21 138/78 Mechanical Ventilator 60 02/28/20 16:30 99 21 138/78 (98) 100 02/28/20 16:00 106 18 158/91 (113) 100 12/2/20 16:00 Mechanical Ventilator 02/28/20 16:00 60 02/28/20 15:53 169/105 02/28/20 15:41 13 169/105 Mechanical Ventilator 60 02/28/20 15:30 110 13 169/105 (126) 100 02/28/20 15:28 100 22 100 Mechanical Ventilator 45 110 22 45 02/28/20 15:26 107 02/28/20 15:00 97 16 142/69 (93) 100 02/28/20 14:41 14 153/84 Mechanical Ventilator 60 02/28/20 14:30 102 14 153/84 (107) 100 02/28/20 14:00 103 16 155/90 (111) 100 02/28/20 13:41 15 154/93 Mechanical Ventilator 60 02/28/20 13:32 15 154/93 Mechanical Ventilator 60 02/28/20 13:30 108 16 154/93 (113) 99 02/28/20 13:15 110 16 153/80 (104) 99 02/28/20 13:00 100 13 148/85 (106) 100 02/28/20 12:32 18 151/87 Mechanical Ventilator 60 02/28/20 12:30 103 18 151/87 (108) 100 02/28/20 12:17 158/90 02/28/20 12:00 Mechanical Ventilator 02/28/20 12:00 99.5 104 10 158/90 (112) 100 02/28/20 12:00 106 02/28/20 11:32 15 161/87 Mechanical Ventilator 60 02/28/20 11:30 101 13 161/87 (111) 100 02/28/20 11:14 87 22 100 Mechanical Ventilator 45 85 22 45 02/28/20 11:00 88 4 154/79 (104) 100 02/28/20 10:45 75 19 143/74 (97) 100 02/28/20 10:32 22 135/72 Mechanical Ventilator 60 02/28/20 10:30 85 17 135/72 (93) 100 02/28/20 10:30 17 135/72 Mechanical Ventilator 60 02/28/20 10:00 84 17 139/73 (95) 100 02/28/20 09:30 16 162/88 Mechanical Ventilator 60 02/28/20 09:30 104 16 162/88 (112) 100 02/28/20 09:10 112 166/78 02/28/20 09:10 112 166/78 02/28/20 09:10 166/78 02/28/20 09:07 60 02/28/20 09:00 112 16 166/78 (107) 97 02/28/20 08:30 15 127/71 Mechanical Ventilator 45 02/28/20 08:30 90 15 127/71 (89) 100 Height (Feet): 5 Height (Inches): 1.00 Weight (Pounds): 168 HEENT: other - orally intubated Respiratory/Chest: other - on ventilato Cardiovascular: normal rate Abdomen: soft, non tender Extremities: other - edema Neurologic/Psychiatric: unresponsiveness Laboratory Tests Test 02/28/20 08:48 02/28/20 12:21 02/28/20 17:13 02/28/20 20:15 Arterial Blood pH 7.340 (7.350-7.450) Arterial Blood Partial Pressure CO2 47.6 mmHg (35.0-45.0) H Arterial Blood Partial Pressure O2 54.9 mmHg (75.0-100.0) L Arterial Blood HCO3 28.6 mmol/L (22.0-26.0) H Arterial Blood Oxygen Saturation 87.7 % (95-100) *L Arterial Blood Base Excess 3.3 (-2-2) H Bryan Test Positive POC Whole Blood Glucose 201 MG/DL (74-106) H 224 MG/DL (74-106) H Pending Test 02/28/20 23:42 02/29/20 04:00 02/29/20 04:15 POC Whole Blood Glucose 188 MG/DL (74-106) H White Blood Count 23.1 K/UL (4.8-10.8) *H Red Blood Count 3.00 M/UL (4.20-5.40) L Hemoglobin 8.7 G/DL (12.0-16.0) L Hematocrit 25.7 % (37.0-47.0) L Mean Corpuscular Volume 86 FL (80-99) Mean Corpuscular Hemoglobin 29.0 PG (27.0-31.0) Mean Corpuscular Hemoglobin Concent 33.9 G/DL (32.0-36.0) Red Cell Distribution Width 19.9 % (11.6-14.8) H Platelet Count 171 K/UL (150-450) Mean Platelet Volume 7.1 FL (6.5-10.1) Neutrophils (%) (Auto) % (45.0-75.0) Lymphocytes (%) (Auto) % (20.0-45.0) Monocytes (%) (Auto) % (1.0-10.0) Eosinophils (%) (Auto) % (0.0-3.0) Basophils (%) (Auto) % (0.0-2.0) Neutrophils % (Manual) Pending Lymphocytes % (Manual) Pending Platelet Estimate Pending Platelet Morphology Pending Sodium Level 152 MMOL/L (136-145) H Potassium Level 3.3 MMOL/L (3.5-5.1) L Chloride Level 117 MMOL/L (98-107) H Carbon Dioxide Level 27 MMOL/L (21-32) Anion Gap 8 mmol/L (5-15) Blood Urea Nitrogen 40 mg/dL (7-18) H Creatinine 1.5 MG/DL (0.55-1.30) H Estimat Glomerular Filtration Rate 42.9 mL/min (>60) Glucose Level 148 MG/DL (74-106) H Calcium Level 7.6 MG/DL (8.5-10.1) L Total Bilirubin 0.8 MG/DL (0.2-1.0) Aspartate Amino Transf (AST/SGOT) 78 U/L (15-37) H Alanine Aminotransferase (ALT/SGPT) 39 U/L (12-78) Alkaline Phosphatase 589 U/L (46-116) H Total Protein 5.8 G/DL (6.4-8.2) L Albumin 1.7 G/DL (3.4-5.0) L Globulin 4.1 g/dL Albumin/Globulin Ratio 0.4 (1.0-2.7) L Random Vancomycin Level 14.7 ug/mL Stool Occult Blood Pending Current Medications Medications (Trade) Dose Ordered Sig/Ivana Route PRN Reason Start Time Stop Time Status Last Admin Dose Admin Acetaminophen (Tylenol) 650 mg EVERY 6 HOURS PRN NG Mild Pain (Pain Scale 1-3) 02/27/20 07:45 03/28/20 07:44 02/28/20 20:11 Amlodipine Besylate (Norvasc) 10 mg DAILY NG 02/27/20 09:00 03/02/20 08:59 02/28/20 09:10 Aspirin (ASA) 81 mg DAILY NG 02/27/20 09:00 03/30/20 08:59 Chlorhexidine Gluconate (Divina-Hex 2%) 1 applic DAILY@2000 TOPIC 02/26/20 20:00 05/26/20 19:59 02/28/20 20:10 Clonidine HCl (Catapres Tab) 0.1 mg Q4H PRN ORAL SBP > 150mmHg 02/06/20 07:00 05/06/20 06:59 02/29/20 01:11 Dextrose (Dextrose 50%) 25 ml Q30M PRN IV Hypoglycemia 01/28/20 22:45 04/27/20 22:44 Dextrose (Dextrose 50%) 50 ml Q30M PRN IV Hypoglycemia 01/28/20 22:45 04/27/20 22:44 Epoetin Haseeb (Epoetin Haseeb-EPBX(NON ESRD)) 8,000 unit WED-WED-WED SUBQ 02/05/20 21:00 05/05/20 20:59 02/28/20 20:58 Fentanyl Citrate 250 ml @ 1 mls/hr Q24H IV 02/28/20 09:30 02/29/20 22:29 02/29/20 05:59 Guaifenesin/ Dextromethorphan (Robitussin DM Syrup) 15 ml Q4H PRN ORAL For Cough 02/12/20 16:53 05/12/20 16:52 02/19/20 22:21 Heparin Sodium (Porcine) (Heparin 5000 units/ml) 5,000 units EVERY 12 HOURS SUBQ 02/28/20 21:00 04/13/20 20:59 02/28/20 20:12 Hydralazine HCl (Apresoline) 25 mg Q6H PRN ORAL SBP above 150 02/27/20 23:15 05/27/20 23:14 02/29/20 05:06 Insulin Aspart (NovoLOG) Q6HR SUBQ 01/29/20 00:00 04/28/20 00:00 02/29/20 05:23 Insulin Detemir (Levemir) 10 units EVERY 12 HOURS SUBQ 02/27/20 09:00 05/04/20 17:59 02/28/20 20:59 Ipratropium Delong (Atrovent Inh) 1 puffs Q4HRT INH 02/28/20 15:00 03/19/20 17:59 02/29/20 07:36 Isosorbide Mononitrate (Imdur) 30 mg DAILY ORAL 02/02/20 09:00 03/03/20 08:59 02/28/20 09:10 Lidocaine (Lidoderm 5% PATCH) 1 patch DAILY TDERMAL 02/11/20 09:30 05/11/20 09:29 02/28/20 09:06 Methocarbamol (Robaxin) 500 mg Q8H PRN ORAL muscle spasm 02/11/20 09:30 03/12/20 09:29 02/21/20 05:13 Methylprednisolone Sodium Succinate (Solu-MEDROL) 10 mg ONCE IVP 03/02/20 09:00 03/02/20 11:00 Methylprednisolone Sodium Succinate (Solu-MEDROL) 20 mg ONCE IVP 03/01/20 09:00 03/01/20 11:00 Methylprednisolone Sodium Succinate (Solu-MEDROL) 30 mg ONCE IVP 02/29/20 09:00 02/29/20 11:00 Metoprolol Tartrate (Lopressor) 25 mg Q12HR NG 02/27/20 09:00 05/04/20 20:59 02/28/20 20:11 Midazolam HCl 50 mg/Sodium Chloride 100 ml @ 0 mls/hr Q24H PRN IV SEDATION 02/29/20 07:30 03/02/20 07:29 Morphine Sulfate (Morphine Sulfate) 2 mg Q2H PRN IVP For Pain 4-10 02/24/20 15:00 03/02/20 14:59 02/29/20 05:06 Multivitamins (Multivitamins W/ Minerals 15ml Liquid) 15 ml DAILY NG 02/27/20 09:00 03/28/20 08:59 02/28/20 09:06 Nitroglycerin (Ntg) 0.4 mg Q5M PRN SL Prn Chest Pain 02/01/20 08:00 03/02/20 07:59 02/21/20 14:57 Pantoprazole (Protonix) 40 mg EVERY 12 HOURS IVP 02/25/20 10:00 03/24/20 08:59 02/28/20 20:10 Potassium Chloride 100 ml @ 50 mls/hr Q2H IVPB 02/29/20 07:00 02/29/20 10:59 Sorbitol (sorbitoL) 30 ml Q8H PRN NG Constipation 02/28/20 16:15 03/29/20 16:14 02/28/20 17:08 Vancomycin HCl (Vanco pharmacy to dose) 1 ea DAILY PRN MISC Per rx protocol 02/13/20 11:30 03/14/20 11:29 Anderson Durham MD Feb 29, 2020 08:09
[2020-02-29] MEDS: Multivitamins W/Minerals 15 ML UDC NG SCH (08:11)
[2020-02-29] MEDS: Pantoprazole Inj IVP SCH ×2 (08:11→20:15)
[2020-02-29] MEDS: Aspirin Baby 81mg NG SCH (08:11)
[2020-02-29] MEDS: Imdur 30mg tab ORAL SCH (08:15)
[2020-02-29] MEDS: Heparin 5000 units/ml inj SUBQ SCH ×2 (08:16→20:16)
[2020-02-29] MEDS ORDERED: Solu-MEDROL 40mg Inj IVP SCH ×2 (09:00)
[2020-02-29] MEDS ORDERED: fentaNYL 2500mcg/NS 250ml 250 ML IV SCH (09:30)
[2020-02-29] MEDS: Levemir Flexpen SUBQ SCH ×2 (09:45→21:00)
[2020-02-29] MEDS: Nitroglycerin 2% oint pkt TOPIC SCH (09:48)
[2020-02-29] MEDS: Midazolam for drip 50 MG in NS 90 ML IV PRN ×2 (10:00→23:30)
--- NOTE | 2020-02-29 10:00 | NUR ---
NURSE NOTES: Patient stable at this time but RASS -1. Versed started. Fentanyl at max. New bag for Fentanyl started.
--- NOTE | 2020-02-29 12:39 | Critical Care Progress Note ---
Assessment/Plan Assessment/Plan IMPRESSION acute respiratory failure/ now on vent leukocytosis, possibly exacerbated by steroids sepsis ARF toxic met encephalopathy COPD DM poor control cavitary lesion negative AFB groundglass infiltrates NSTEMI severe PCM hypertension left shoulder pain bacteremia MRSA hematuria COVID anemia diabetes s/p respiratory code hypernatremia PLAN DVT prophylaxis transfused and monitor HH antibiotics per ID titrate BP meds vent support- consider wean monitor acid base NGT and feeds monitor lytes maintain support monitor LOC monitor bp critical try to wean if possible maintain sedation medications/laboratory data/nursing notes/ICU care reviewed in detail note reviewed and edited care discussed with RN and RT ICU time spent >40 minutes Critical Care - Subjective ROS Limited/Unobtainable: Yes Condition: critical EKG Rhythm: Sinus Rhythm I&O: Intake and Output 02/28/20 02/29/20 18:59 06:59 Intake Total 1169.500 ml 1338.0 ml Output Total 600 ml 435 ml Balance 569.500 ml 903.0 ml Free Water 430 ml IV Total 639.500 ml 368.0 ml Tube Feeding 530 ml 540 ml Output Urine Total 600 ml 435 ml # Bowel Movements 1 Critical Care - Objective ET-Tube: 7.5 ET Position: 25 Last 24 Hour Vital Signs Date Time Temp Pulse Resp B/P (MAP) Pulse Ox O2 Delivery O2 Flow Rate FiO2 02/29/20 11:30 112 22 100 Mechanical Ventilator 70 110 23 80 02/29/20 10:00 95 0 156/75 (102) 98 02/29/20 10:00 22 156/85 Endotracheal Tube 100 02/29/20 10:00 22 Endotracheal Tube 100 02/29/20 09:48 156/85 02/29/20 09:47 22 156/75 Endotracheal Tube 100 02/29/20 09:00 99 0 165/71 (102) 98 02/29/20 08:12 96 161/69 02/29/20 08:12 86 161/69 02/29/20 08:00 99.0 94 0 161/69 (99) 98 02/29/20 08:00 Mechanical Ventilator 02/29/20 08:00 60 02/29/20 07:53 95 02/29/20 07:24 94 22 100 Mechanical Ventilator 45 96 23 80 02/29/20 07:00 87 0 151/67 (95) 98 02/29/20 06:41 22 151/67 Mechanical Ventilator 60 12/3/20 06:00 77 22 158/65 (96) 99 02/29/20 05:59 22 166/77 Mechanical Ventilator 60 02/29/20 05:41 22 166/77 Mechanical Ventilator 60 02/29/20 05:06 166/77 02/29/20 05:00 89 22 166/77 (106) 99 02/29/20 04:41 22 152/71 Mechanical Ventilator 60 02/29/20 04:20 79 02/29/20 04:20 86 22 100 Mechanical Ventilator 45 100 23 80 02/29/20 04:00 Mechanical Ventilator 02/29/20 04:00 60 02/29/20 04:00 99.4 70 22 152/71 (98) 99 02/29/20 03:41 22 154/77 Mechanical Ventilator 60 02/29/20 03:00 87 22 154/77 (102) 100 02/29/20 02:41 22 158/77 Mechanical Ventilator 60 02/29/20 02:00 82 22 158/77 (104) 98 02/29/20 01:41 22 175/79 Mechanical Ventilator 60 02/29/20 01:41 89 22 154/77 100 02/29/20 01:11 103 26 184/74 97 02/29/20 01:11 184/74 02/29/20 01:00 101 22 175/79 (111) 100 02/29/20 00:41 22 170/68 Mechanical Ventilator 60 02/29/20 00:00 99.7 75 22 170/68 (102) 100 02/29/20 00:00 Mechanical Ventilator 02/29/20 00:00 60 02/28/20 23:41 22 155/66 Mechanical Ventilator 60 02/28/20 23:10 81 22 100 Mechanical Ventilator 45 100 23 80 02/28/20 23:00 67 22 155/66 (95) 100 02/28/20 22:41 22 163/70 Mechanical Ventilator 60 02/28/20 22:26 66 20 157/65 100 02/28/20 22:00 79 22 163/70 (101) 100 02/28/20 21:58 24 164/70 Mechanical Ventilator 60 02/28/20 21:56 80 24 164/70 98 02/28/20 21:41 22 152/62 Mechanical Ventilator 60 02/28/20 21:00 75 22 152/62 (92) 100 02/28/20 20:41 99.9 02/28/20 20:30 73 02/28/20 20:11 119 151/66 02/28/20 20:05 92 22 145/66 100 02/28/20 20:00 100.5 82 22 151/66 (94) 100 02/28/20 20:00 Mechanical Ventilator 02/28/20 20:00 60 02/28/20 19:41 26 151/66 Mechanical Ventilator 60 02/28/20 19:35 124 26 141/107 97 02/28/20 19:15 115 23 100 Mechanical Ventilator 45 100 23 80 02/28/20 19:00 115 23 198/110 (139) 100 02/28/20 18:41 18 188/99 Mechanical Ventilator 60 02/28/20 18:30 116 16 188/107 (134) 100 02/28/20 18:00 109 17 155/95 (115) 100 02/28/20 17:41 16 158/68 Mechanical Ventilator 60 02/28/20 17:30 103 18 158/68 (98) 100 02/28/20 17:00 91 18 134/72 (92) 100 02/28/20 16:41 21 138/78 Mechanical Ventilator 60 02/28/20 16:30 99 21 138/78 (98) 100 02/28/20 16:00 106 18 158/91 (113) 100 02/28/20 16:00 Mechanical Ventilator 02/28/20 16:00 60 02/28/20 15:53 169/105 02/28/20 15:41 13 169/105 Mechanical Ventilator 60 02/28/20 15:30 110 13 169/105 (126) 100 02/28/20 15:28 100 22 100 Mechanical Ventilator 45 110 22 45 02/28/20 15:26 107 02/28/20 15:00 97 16 142/69 (93) 100 02/28/20 14:41 14 153/84 Mechanical Ventilator 60 02/28/20 14:30 102 14 153/84 (107) 100 02/28/20 14:00 103 16 155/90 (111) 100 02/28/20 13:41 15 154/93 Mechanical Ventilator 60 02/28/20 13:32 15 154/93 Mechanical Ventilator 60 02/28/20 13:30 108 16 154/93 (113) 99 02/28/20 13:15 110 16 153/80 (104) 99 02/28/20 13:00 100 13 148/85 (106) 100 Labs: Laboratory Tests 02/28/20 17:13: POC Whole Blood Glucose 224H 02/28/20 20:15: POC Whole Blood Glucose [Pending] 02/28/20 23:42: POC Whole Blood Glucose 188H 02/29/20 04:00: White Blood Count 23.1*H, Red Blood Count 3.00L, Hemoglobin 8.7L, Hematocrit 25.7L, Mean Corpuscular Volume 86, Mean Corpuscular Hemoglobin 29.0, Mean Corpuscular Hemoglobin Concent 33.9, Red Cell Distribution Width 19.9H, Platelet Count 171, Mean Platelet Volume 7.1, Neutrophils (%) (Auto) , Lymphocytes (%) (Auto) , Monocytes (%) (Auto) , Eosinophils (%) (Auto) , Basophils (%) (Auto) , Differential Total Cells Counted 100, Neutrophils % (Manual) 92H, Lymphocytes % (Manual) 3L, Monocytes % (Manual) 5, Eosinophils % (Manual) 0, Basophils % (Manual) 0, Band Neutrophils 0, Platelet Estimate Adequate, Platelet Morphology Normal, Polychromasia 1+, Hypochromasia 1+, Anisocytosis 2+, Sodium Level 152H, Potassium Level 3.3L, Chloride Level 117H, Carbon Dioxide Level 27, Anion Gap 8, Blood Urea Nitrogen 40H, Creatinine 1.5H, Estimat Glomerular Filtration Rate 42.9, Glucose Level 148H, Calcium Level 7.6L, Total Bilirubin 0.8, Aspartate Amino Transf (AST/SGOT) 78H, Alanine Aminotransferase (ALT/SGPT) 39, Alkaline Phosphatase 589H, Total Protein 5.8L, Albumin 1.7L, Globulin 4.1, Albumin/Globulin Ratio 0.4L, Random Vancomycin Level 14.7 02/29/20 04:15: Stool Occult Blood [Pending] 02/29/20 08:44: Arterial Blood pH 7.385, Arterial Blood Partial Pressure CO2 45.7H, Arterial Blood Partial Pressure O2 63.3L, Arterial Blood HCO3 26.7H, Arterial Blood Oxygen Saturation 90.7L, Arterial Blood Base Excess 1.4, Bryan Test Positive Objective: deferred due to COVID Accucheck: 136 Ishaaya,Germán M MD Feb 29, 2020 12:39
[2020-02-29] MEDS ORDERED: Vancomycin 750mg/D5W 275ml IVPB SCH ×2 (13:00)
--- NOTE | 2020-02-29 13:00 | NUR ---
NURSE NOTES: Patient stable. Medications given.
[2020-02-29] MEDS ORDERED: NS 275ml ONE (14:08)
[2020-02-29] MEDS ORDERED: Tubing IV Secondary IV ONE (14:08)
[2020-02-29] MEDS ORDERED: Tubing IV Blood Pump IV ONE (14:08)
--- NOTE | 2020-02-29 15:18 | NUR ---
NURSE NOTES: Patient stable at this time. VSS on current drips.
--- NOTE | 2020-02-29 15:43 | Diagnostic Imaging Report ---
Indication: Bilateral leg pain Technique: Grayscale and duplex images of the bilateral lower extremity veins Comparison: None Findings: Bilaterally, grayscale and duplex images demonstrate no evidence of intraluminal thrombus. Normal phasic Doppler waveforms, demonstrating normal augmentation response and no evidence of valvular insufficiency. Greater saphenous vein(s) and tibial veins are patent. Normal compressibility. Impression: Negative for evidence of lower extremity deep venous thrombosis bilaterally
--- NOTE | 2020-02-29 15:53 | NUR ---
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 97.8 HR 95 RR 22 B/P 169/87 PH 7.38 PCO2 45.7 PO2 62.3 HCO3 26.7 O2 SAT 90.7 AC 22 TV 550 FIO2 100% PEEP 8 WBC 23.1 NA 152 BUN 40 CR 1.5 IS: SOLU MEDROL IV FENTANYL IV VERSED GTT HEPARIN SUBC ICU STATUS
--- NOTE | 2020-02-29 16:00 | NUR ---
NURSE NOTES: Patient stable at this time. No s/sx of pain or distress.
[2020-02-29] MEDS: Acetaminophen 650mg/20.3ml NG PRN (17:57)
--- NOTE | 2020-02-29 18:00 | NUR ---
NURSE NOTES: Patient has fever. Will give tylenol. Cooling measures applied. BP elevated. Will also give PRN clonidine.
--- NOTE | 2020-02-29 19:30 | NUR ---
NURSE HAND-OFF REPORT: Latest Vital Signs: Temperature 100.6 , Pulse 90 , B/P 140 /65 , Respiratory Rate 22 , O2 SAT 100 , Mechanical Ventilator, O2 Flow Rate . Vital Sign Comment: STABLE EKG Rhythm: Sinus Rhythm Rhythm change?: N MD Notified?: MD Response: Latest Pineda Fall Score: 50 Fall Risk: High Risk Safety Measures: Call light Within Reach, Bed Alarm Zone 2, Side Rails Side Rails x3, Bed position Low and Locked. Fall Precautions: Door Sign Report given to Barbara BUSCH. Patient stable with fever trending down. RASS -2 at this time with Fentany and versed.
--- NOTE | 2020-02-29 19:39 | NUR ---
NURSE NOTES: Received patient from JO-ANN Flores / JO-ANN Braun. Will continue plan of care
--- NOTE | 2020-02-29 20:00 | NUR ---
NURSE NOTES: Patient is sedated; RASS -2 lightly sedated. Patient easily awakens and opens eyes to voice and moves to touch. Intubated; ETT 7.5 to 25cm to the lipline to vent with AC:22, tV:550, FiO2:70%, PEEP:8. OGT is patent and flushing well and running Nepro @ 45ml/hr. Right upper arm PICC running Fentanyl @ 300mcg and Versed @ 5mg. Right foot 24g saline lock. UTILIZATION MANAGER restraints on to prevent for safety and prevent from pulling on lines and tubes. Cooling measures in place for elevated temp; currently 99.7F axillary. Bed low, locked and alarm is on. Will continue plan of care.
[2020-02-29 20:14] LABS: HEMATOCRIT 28.3 % (37.0-47.0); MEAN CORPUSCULAR VOLUME 87 FL (80-99); RED BLOOD COUNT 3.25 M/UL (4.20-5.40); RED CELL DISTRIBUTION WIDTH 19.2 % (11.6-14.8); WHITE BLOOD COUNT 21.6 K/UL (4.8-10.8)
[2020-02-29] MEDS: Dyna-Hex 2% Top Sol 2oz TOPIC SCH (20:15)
[2020-02-29 20:16] LABS: PLATELET COUNT 155 K/UL (150-450)
--- NOTE | 2020-02-29 22:00 | NUR ---
NURSE NOTES: Repositioned. Patient remains slightly sedated. No changes in sedation drip rates.
--- NOTE | 2020-02-29 23:46 | General Progress Note ---
Subjective Allergies: Coded Allergies: No Known Allergies (Unverified , 07/30/15) Subjective Above noted sedated BM dark brown today tolerating TF H& H noted Objective Last 24 Hour Vital Signs Date Time Temp Pulse Resp B/P (MAP) Pulse Ox O2 Delivery O2 Flow Rate FiO2 02/29/20 23:30 22 70 02/29/20 22:02 22 141/65 Mechanical Ventilator 70 02/29/20 21:00 63 22 150/68 (95) 100 02/29/20 20:15 70 160/76 02/29/20 20:00 Mechanical Ventilator 02/29/20 20:00 99.7 87 22 160/76 (104) 100 02/29/20 20:00 70 02/29/20 19:43 90 22 70 02/29/20 19:00 100.6 73 22 140/65 (90) 100 02/29/20 18:30 101.7 80 22 150/66 (94) 100 02/29/20 18:30 101.7 02/29/20 18:00 102.3 90 21 162/75 (104) 100 02/29/20 17:55 188/84 02/29/20 17:30 104 22 188/84 (118) 99 02/29/20 17:00 122 26 177/75 (109) 98 02/29/20 16:30 120 26 156/72 (100) 98 02/29/20 16:00 70 02/29/20 16:00 Mechanical Ventilator 02/29/20 16:00 98.0 97 22 155/70 (98) 99 02/29/20 15:19 101 02/29/20 15:15 95 22 100 Mechanical Ventilator 70 102 23 80 02/29/20 15:00 98 22 160/75 (103) 98 02/29/20 14:30 99 22 161/75 (103) 99 02/29/20 14:00 97.8 95 0 169/81 (110) 99 02/29/20 14:00 22 169/81 Endotracheal Tube 70 02/29/20 13:54 161/75 02/29/20 13:53 22 161/75 Mechanical Ventilator 70 02/29/20 13:52 22 161/75 70 02/29/20 13:30 95 0 161/75 (103) 99 02/29/20 13:00 22 161/77 70 02/29/20 13:00 22 Endotracheal Tube 70 02/29/20 13:00 94 0 161/77 (105) 98 02/29/20 12:30 94 22 156/75 (102) 98 02/29/20 12:00 98.8 02/29/20 12:00 70 02/29/20 12:00 94 02/29/20 12:00 22 150/68 Endotracheal Tube 70 02/29/20 12:00 22 Endotracheal Tube 70 02/29/20 12:00 Mechanical Ventilator 02/29/20 12:00 95 22 154/71 (98) 99 02/29/20 11:30 97 22 150/68 (95) 99 02/29/20 11:30 112 22 100 Mechanical Ventilator 70 110 23 80 02/29/20 11:15 22 154/71 Endotracheal Tube 70 02/29/20 11:15 22 Endotracheal Tube 70 02/29/20 11:00 104 22 156/72 (100) 98 02/29/20 11:00 22 196/85 Endotracheal Tube 70 02/29/20 11:00 22 Endotracheal Tube 70 02/29/20 10:45 22 152/75 Endotracheal Tube 70 02/29/20 10:45 22 Endotracheal Tube 70 02/29/20 10:30 22 171/80 Endotracheal Tube 70 02/29/20 10:30 22 Endotracheal Tube 100 02/29/20 10:30 100 22 196/85 (122) 98 02/29/20 10:15 22 165/62 Endotracheal Tube 70 02/29/20 10:15 22 70 02/29/20 10:00 95 0 156/75 (102) 98 02/29/20 10:00 22 156/85 Endotracheal Tube 100 02/29/20 10:00 22 Endotracheal Tube 100 02/29/20 09:48 156/85 02/29/20 09:47 22 156/75 Endotracheal Tube 100 02/29/20 09:47 22 157/65 Endotracheal Tube 70 02/29/20 09:00 22 165/71 Endotracheal Tube 70 02/29/20 09:00 99 0 165/71 (102) 98 02/29/20 08:12 96 161/69 02/29/20 08:12 86 161/69 02/29/20 08:00 99.0 94 0 161/69 (99) 98 02/29/20 08:00 Mechanical Ventilator 02/29/20 08:00 60 02/29/20 08:00 22 161/69 Endotracheal Tube 60 02/29/20 07:53 95 02/29/20 07:24 94 22 100 Mechanical Ventilator 45 96 23 80 02/29/20 07:00 87 0 151/67 (95) 98 02/29/20 07:00 22 148/67 Endotracheal Tube 60 02/29/20 06:41 22 151/67 Mechanical Ventilator 60 02/29/20 06:00 77 22 158/65 (96) 99 02/29/20 05:59 22 166/77 Mechanical Ventilator 60 02/29/20 05:41 22 166/77 Mechanical Ventilator 60 02/29/20 05:06 166/77 02/29/20 05:00 89 22 166/77 (106) 99 02/29/20 04:41 22 152/71 Mechanical Ventilator 60 02/29/20 04:20 79 02/29/20 04:20 86 22 100 Mechanical Ventilator 45 100 23 80 02/29/20 04:00 Mechanical Ventilator 02/29/20 04:00 60 02/29/20 04:00 99.4 70 22 152/71 (98) 99 02/29/20 03:41 22 154/77 Mechanical Ventilator 60 02/29/20 03:00 87 22 154/77 (102) 100 02/29/20 02:41 22 158/77 Mechanical Ventilator 60 02/29/20 02:00 82 22 158/77 (104) 98 02/29/20 01:41 22 175/79 Mechanical Ventilator 60 02/29/20 01:41 89 22 154/77 100 02/29/20 01:11 103 26 184/74 97 02/29/20 01:11 184/74 02/29/20 01:00 101 22 175/79 (111) 100 02/29/20 00:41 22 170/68 Mechanical Ventilator 60 02/29/20 00:00 99.7 75 22 170/68 (102) 100 02/29/20 00:00 Mechanical Ventilator 02/29/20 00:00 60 Intake and Output 02/28/20 02/29/20 19:00 07:00 Intake Total 1179.500 ml 1357.5 ml Output Total 600 ml 400 ml Balance 579.500 ml 957.5 ml Free Water 430 ml IV Total 639.500 ml 387.5 ml Tube Feeding 540 ml 540 ml Output Urine Total 600 ml 400 ml # Bowel Movements 1 Laboratory Tests 02/29/20 04:00: White Blood Count 23.1*H, Red Blood Count 3.00L, Hemoglobin 8.7L, Hematocrit 25.7L, Mean Corpuscular Volume 86, Mean Corpuscular Hemoglobin 29.0, Mean Corpuscular Hemoglobin Concent 33.9, Red Cell Distribution Width 19.9H, Platelet Count 171, Mean Platelet Volume 7.1, Neutrophils (%) (Auto) , Lymphocytes (%) (Auto) , Monocytes (%) (Auto) , Eosinophils (%) (Auto) , Basophils (%) (Auto) , Differential Total Cells Counted 100, Neutrophils % (Manual) 92H, Lymphocytes % (Manual) 3L, Monocytes % (Manual) 5, Eosinophils % (Manual) 0, Basophils % (Manual) 0, Band Neutrophils 0, Platelet Estimate Adequate, Platelet Morphology Normal, Polychromasia 1+, Hypochromasia 1+, Anisocytosis 2+, Sodium Level 152H, Potassium Level 3.3L, Chloride Level 117H, Carbon Dioxide Level 27, Anion Gap 8, Blood Urea Nitrogen 40H, Creatinine 1.5H, Estimat Glomerular Filtration Rate 42.9, Glucose Level 148H, Calcium Level 7.6L, Total Bilirubin 0.8, Aspartate Amino Transf (AST/SGOT) 78H, Alanine Aminotransferase (ALT/SGPT) 39, Alkaline Phosphatase 589H, Total Protein 5.8L, Albumin 1.7L, Globulin 4.1, Alb umin/Globulin Ratio 0.4L, Random Vancomycin Level 14.7 02/29/20 04:15: Stool Occult Blood Positive 02/29/20 08:44: Arterial Blood pH 7.385, Arterial Blood Partial Pressure CO2 45.7H, Arterial Blood Partial Pressure O2 63.3L, Arterial Blood HCO3 26.7H, Arterial Blood Oxygen Saturation 90.7L, Arterial Blood Base Excess 1.4, Bryan Test Positive 02/29/20 19:50: White Blood Count 21.6H, Red Blood Count 3.25L, Hemoglobin 9.0L, Hematocrit 28.3L, Mean Corpuscular Volume 87, Mean Corpuscular Hemoglobin 27.6, Mean Corpuscular Hemoglobin Concent 31.7L, Red Cell Distribution Width 19.2H, Platelet Count 155, Mean Platelet Volume 8.2, Neutrophils (%) (Auto) , Lymphocytes (%) (Auto) , Monocytes (%) (Auto) , Eosinophils (%) (Auto) , Basophils (%) (Auto) , Differential Total Cells Counted 100, Neutrophils % (Manual) 86H, Lymphocytes % (Manual) 8L, Monocytes % (Manual) 2, Eosinophils % (Manual) 0, Basophils % (Manual) 0, Band Neutrophils 4, Platelet Estimate Adequate, Platelet Morphology Normal, Polychromasia 1+, Hypochromasia 2+, Anisocytosis 1+ Height (Feet): 5 Height (Inches): 1.00 Weight (Pounds): 168 Objective Patient seen in ICU On vent (+) ETT and OGT calm Assessment/Plan Assessment/Plan: Assessment - GIB - resolved, stools brown now - Anemia - hypokalemia, DM and Hypernatremia - will change TF to DM formula - COVID pneumonitis, on Steroids but off lovenox - Acute LA - on ASA - Resp failure - malnutrition/feeding tube dependent - declining albumin - partly due to liver disease - fatty liver - hepatitis C with nodular liver, PCR (+) - abnormal LFT - due to COVD, fatty liver, and HCV - HTN - COPD - Lung mass - DM - PSV Recommendations - Continue TF - change formula - protein powder - Sq heparin - increase free water to correct Na - monitor CBC - follow LFT - PPI --> now BID - Elevate HOB - outpatient HCV eradication - Outpatient colonoscopy once recovered from current illness Feliberto Pérez MD Feb 29, 2020 23:46
[2020-03-01] VITALS (25 sets, daily range): BP systolic 130–177; BP diastolic 60–81
--- NOTE | 2020-03-01 | NUR ---
NURSE NOTES: Patient is afebrile. Temp: 98.7F axillary. FiO2 titrated to 60%, O2sat:98%. Daughter Sandra called and asked for updates and express concerns of the temp.
--- NOTE | 2020-03-01 02:00 | NUR ---
NURSE NOTES: Right upper arm PICC dressing changed. Patient remains sedated; RASS -2 lightly sedated; awakens and moves to voice.
[2020-03-01] MEDS: Ipratropium Bromide Inhaler INH SCH ×7 (03:00→23:15)
--- NOTE | 2020-03-01 04:00 | NUR ---
NURSE NOTES: Bed bath given, linens changed, turned and repositioned. Patient looks comfortable.
[2020-03-01 05:27] LABS: HEMATOCRIT 27.9 % (37.0-47.0); HEMOGLOBIN 9.1 G/DL (12.0-16.0); MEAN CORPUSCULAR VOLUME 88 FL (80-99); PLATELET COUNT 169 K/UL (150-450); RED BLOOD COUNT 3.17 M/UL (4.20-5.40); RED CELL DISTRIBUTION WIDTH 18.7 % (11.6-14.8)
[2020-03-01 05:43] LABS: WHITE BLOOD COUNT 22.7 K/UL (4.8-10.8)
[2020-03-01 05:54] LABS: ALBUMIN 1.6 G/DL (3.4-5.0); ALBUMIN/GLOBULIN RATIO 0.4 (1.0-2.7); BILIRUBIN,TOTAL 0.6 MG/DL (0.2-1.0); CALCIUM 7.9 MG/DL (8.5-10.1); CREATININE 1.3 MG/DL (0.55-1.30)
[2020-03-01] MEDS: NovoLOG Insulin Flexpen SUBQ SCH ×5 (06:00→23:15)
[2020-03-01] MEDS: fentaNYL 2500mcg/NS 250ml 250 ML IV SCH ×3 (06:49→23:32)
--- NOTE | 2020-03-01 07:23 | NUR ---
NURSE HAND-OFF REPORT: Latest Vital Signs: Temperature 99.4 , Pulse 87 , B/P 172 /78 , Respiratory Rate 22 , O2 SAT 99 , Mechanical Ventilator, O2 Flow Rate . Vital Sign Comment: Stable EKG Rhythm: Sinus Rhythm Rhythm change?: N Notified?: Jay briceño MD Response: Latest Pineda Fall Score: 50 Fall Risk: High Risk Safety Measures: Call light Within Reach, Bed Alarm Zone 2, Side Rails Side Rails x3, Bed position Low and Locked. Fall Precautions: Door Sign Report given to .
--- NOTE | 2020-03-01 07:30 | NUR ---
NURSE NOTES: Patient received from Barbara BUSCH. Patient AOx0, sedated but arousable. RASS -2. ETT and vented. Cardiac sounds benign. Breath sounds diminished. Bowel sounds active. OGT in place with feeding infusing. Flores in place draining yellow urine. Side rails up x2, call light within reach, bed low and locked. Restraints on with good ROM, sensation and circulation.
--- NOTE | 2020-03-01 08:00 | NUR ---
NURSE NOTES: Again reported uncotrolled HTN to Dr. Feliz and Dr. Perkins. Medication regimen adjuste.
[2020-03-01] MEDS ORDERED: Nitroglycerin 2% oint pkt TOPIC ONE (09:00)
[2020-03-01] MEDS ORDERED: Solu-MEDROL 40mg Inj IVP SCH (09:00)
[2020-03-01] MEDS: Multivitamins W/Minerals 15 ML UDC NG SCH (09:16)
[2020-03-01] MEDS: Heparin 5000 units/ml inj SUBQ SCH ×2 (09:17→21:08)
[2020-03-01] MEDS: Aspirin Baby 81mg NG SCH (09:18)
[2020-03-01] MEDS: Pantoprazole Inj IVP SCH ×2 (09:18→21:04)
[2020-03-01] MEDS: Nitroglycerin 2% oint pkt TOPIC SCH (09:18)
[2020-03-01] MEDS: Midazolam for drip 50 MG in NS 90 ML IV PRN ×2 (09:20→20:54)
--- NOTE | 2020-03-01 09:45 | Hematology/Onc Progress Note ---
Assessment/Plan Assessment/Plan ASSESSMENT/RECS #. 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 --> Currently, no evidence of malignancy. --> Continue to closely monitor and also for improvement. --> per Dr. Galeana the patient may be a candidate for right video-assisted thoracoscopic surgery with a biopsy. However, the patient at the present time does not want to proceed with surgery. #. Leukocytosis with COVID19++ and Asthma exacerbation. --> intubated --> wbc 18-->17--.[id number]_.[id number] --> on methylprednisone/remdimsivir --> ABX vanc # Anemia likely of chronic disease --> transfuse as needed --> on epogen --> hgb 8.2-->6.9-->10.2-->8.7 --> 1 unit prbc 02/26 --> dw Dr. Pérez and will change lovenox to heparin # Gastritis. # Constipation. # Cavitary pneumonia with MRSA # Staph aureus (MRSA) sepsis # diabetes mellitus # hypertension # COPD # renal failure # aortic stenosis # Hypercapnic/ hypoxic respiratory failure on vent # Dvt ppx heparin sq Appreciate consultation and ailyn Rn Subjective Allergies: Coded Allergies: No Known Allergies (Unverified , 07/30/15) All Systems: reviewed and negative except above Subjective 02/25 agitated, restless, on mech vent, labs noted, hgb better 02/26 icu, on vent, hgb 6.9, to get 1 unit prbc today, no bleeding 02/27 icu, on restraints, hgb has improved, no bleeding 02/28 icu, wbc remains elevated, versed given this am for agitation and high bp 03/01 icu, ailyn rn, wbc 23, hgb 9.1, on abx, no bleeding, meds reviewed Objective Objective Current Medications Medications (Trade) Dose Ordered Sig/Ivana Route PRN Reason Start Time Stop Time Status Last Admin Dose Admin Acetaminophen (Tylenol) 650 mg EVERY 6 HOURS PRN NG Mild Pain (Pain Scale 1-3) 02/27/20 07:45 03/28/20 07:44 02/29/20 17:57 Amlodipine Besylate (Norvasc) 10 mg DAILY NG 02/27/20 09:00 03/02/20 08:59 03/01/20 09:20 Aspirin (ASA) 81 mg DAILY NG 02/27/20 09:00 03/30/20 08:59 03/01/20 09:18 Chlorhexidine Gluconate (Divina-Hex 2%) 1 applic DAILY@2000 TOPIC 02/26/20 20:00 05/26/20 19:59 02/29/20 20:15 Clonidine HCl (Catapres Tab) 0.1 mg Q4H PRN ORAL SBP > 150mmHg 02/06/20 07:00 05/06/20 06:59 02/29/20 17:55 Dextrose (Dextrose 50%) 25 ml Q30M PRN IV Hypoglycemia 01/28/20 22:45 04/27/20 22:44 Dextrose (Dextrose 50%) 50 ml Q30M PRN IV Hypoglycemia 01/28/20 22:45 04/27/20 22:44 Epoetin Haseeb (Epoetin Haseeb-EPBX(NON ESRD)) 8,000 unit WED-WED-WED SUBQ 02/05/20 21:00 05/05/20 20:59 02/28/20 20:58 Fentanyl Citrate 250 ml @ 1 mls/hr Q24H IV 02/29/20 15:00 03/02/20 09:00 03/01/20 06:49 Guaifenesin/ Dextromethorphan (Robitussin DM Syrup) 15 ml Q4H PRN ORAL For Cough 02/12/20 16:53 05/12/20 16:52 02/19/20 22:21 Heparin Sodium (Porcine) (Heparin 5000 units/ml) 5,000 units EVERY 12 HOURS SUBQ 02/28/20 21:00 04/13/20 20:59 03/01/20 09:17 Hydralazine HCl (Apresoline) 25 mg Q6H PRN ORAL SBP above 150 02/27/20 23:15 05/27/20 23:14 02/29/20 13:54 Insulin Aspart (NovoLOG) Q6HR SUBQ 01/29/20 00:00 04/28/20 00:00 03/01/20 06:00 Insulin Detemir (Levemir) 5 units EVERY 12 HOURS SUBQ 03/01/20 09:00 05/30/20 08:59 Ipratropium [place] (Atrovent Inh) 1 puffs Q4HRT INH 02/28/20 15:00 03/19/20 17:59 02/29/20 15:21 Lidocaine (Lidoderm 5% PATCH) 1 patch DAILY TDERMAL 02/11/20 09:30 05/11/20 09:29 03/01/20 09:20 Methocarbamol (Robaxin) 500 mg Q8H PRN ORAL muscle spasm 02/11/20 09:30 03/12/20 09:29 02/21/20 05:13 Methylprednisolone Sodium Succinate (Solu-MEDROL) 10 mg ONCE IVP 03/02/20 09:00 03/02/20 11:00 Methylprednisolone Sodium Succinate (Solu-MEDROL) 20 mg ONCE IVP 03/01/20 09:00 03/01/20 11:00 03/01/20 09:22 Metoprolol Tartrate (Lopressor) 50 mg Q12HR NG 03/01/20 07:45 05/04/20 20:59 03/01/20 09:19 Midazolam HCl 50 mg/Sodium Chloride 100 ml @ 0 mls/hr Q24H PRN IV SEDATION 02/29/20 07:30 03/02/20 07:29 02/29/20 23:30 Morphine Sulfate (Morphine Sulfate) 2 mg Q2H PRN IVP For Pain 4-10 02/24/20 15:00 03/02/20 14:59 02/29/20 05:06 Multivitamins (Multivitamins W/ Minerals 15ml Liquid) 15 ml DAILY NG 02/27/20 09:00 03/28/20 08:59 03/01/20 09:16 Nitroglycerin (Nitro-Bid) 1 inch DAILY TOPIC 02/29/20 10:00 03/30/20 09:59 03/01/20 09:18 Nitroglycerin (Ntg) 0.4 mg Q5M PRN SL Prn Chest Pain 02/01/20 08:00 03/02/20 07:59 02/21/20 14:57 Pantoprazole (Protonix) 40 mg EVERY 12 HOURS IVP 02/25/20 10:00 03/24/20 08:59 03/01/20 09:18 Sorbitol (sorbitoL) 30 ml Q8H PRN NG Constipation 02/28/20 16:15 03/29/20 16:14 02/28/20 17:08 Vancomycin HCl (Vanco pharmacy to dose) 1 ea DAILY PRN MISC Per rx protocol 02/13/20 11:30 03/14/20 11:29 Last 24 Hour Vital Signs Date Time Temp Pulse Resp B/P (MAP) Pulse Ox O2 Delivery O2 Flow Rate FiO2 03/01/20 09:20 79 177/86 03/01/20 09:19 79 177/81 03/01/20 09:18 177/81 03/01/20 07:00 87 22 172/78 (109) 99 03/01/20 07:00 22 Mechanical Ventilator 60 03/01/20 06:53 22 172/78 60 03/01/20 06:49 22 165/76 Mechanical Ventilator 60 03/01/20 06:00 22 Mechanical Ventilator 60 03/01/20 06:00 84 22 157/76 (103) 98 03/01/20 05:53 22 157/76 Mechanical Ventilator 60 03/01/20 05:00 65 22 146/64 (91) 98 03/01/20 05:00 22 Mechanical Ventilator 60 03/01/20 04:53 22 146/64 Mechanical Ventilator 60 03/01/20 04:15 85 03/01/20 04:00 Mechanical Ventilator 03/01/20 04:00 22 Mechanical Ventilator 60 03/01/20 04:00 99.4 91 22 161/73 (102) 100 03/01/20 04:00 60 03/01/20 03:53 60 161/73 Mechanical Ventilator 60 03/01/20 03:29 91 22 60 03/01/20 03:00 81 22 160/71 (100) 98 03/01/20 03:00 22 Mechanical Ventilator 60 03/01/20 02:53 22 160/71 Mechanical Ventilator 60 03/01/20 02:00 22 60 03/01/20 02:00 82 22 156/75 (102) 99 03/01/20 01:53 22 156/75 Mechanical Ventilator 60 03/01/20 01:00 61 22 130/60 (83) 99 03/01/20 01:00 22 Mechanical Ventilator 60 03/01/20 00:53 22 130/60 Mechanical Ventilator 60 03/01/20 00:06 62 03/01/20 00:00 98.7 63 22 135/61 (85) 99 03/01/20 00:00 Mechanical Ventilator 03/01/20 00:00 22 60 03/01/20 00:00 60 02/29/20 23:53 22 135/61 Mechanical Ventilator 70 02/29/20 23:44 63 22 60 02/29/20 23:30 22 70 02/29/20 23:00 22 70 02/29/20 23:00 82 22 151/70 (97) 100 02/29/20 22:53 22 151/70 Mechanical Ventilator 70 02/29/20 22:30 82 22 146/69 (94) 100 02/29/20 22:02 22 141/65 Mechanical Ventilator 70 02/29/20 22:00 22 Mechanical Ventilator 70 02/29/20 22:00 60 22 140/65 (90) 100 02/29/20 21:53 22 140/65 Mechanical Ventilator 70 02/29/20 21:00 63 22 150/68 (95) 100 02/29/20 21:00 22 70 02/29/20 20:15 70 160/76 02/29/20 20:00 Mechanical Ventilator 02/29/20 20:00 99.7 87 22 160/76 (104) 100 02/29/20 20:00 22 Mechanical Ventilator 70 02/29/20 20:00 70 02/29/20 19:43 90 22 70 02/29/20 19:39 89 02/29/20 19:00 22 Mechanical Ventilator 70 02/29/20 19:00 100.6 73 22 140/65 (90) 100 02/29/20 18:30 101.7 80 22 150/66 (94) 100 02/29/20 18:30 101.7 02/29/20 18:00 102.3 90 21 162/75 (104) 100 02/29/20 17:55 188/84 02/29/20 17:30 104 22 188/84 (118) 99 02/29/20 17:00 122 26 177/75 (109) 98 02/29/20 16:30 120 26 156/72 (100) 98 02/29/20 16:00 70 02/29/20 16:00 Mechanical Ventilator 02/29/20 16:00 98.0 97 22 155/70 (98) 99 02/29/20 15:19 101 02/29/20 15:15 95 22 100 Mechanical Ventilator 70 102 23 80 02/29/20 15:00 98 22 160/75 (103) 98 02/29/20 14:30 99 22 161/75 (103) 99 02/29/20 14:00 97.8 95 0 169/81 (110) 99 02/29/20 14:00 22 169/81 Endotracheal Tube 70 02/29/20 13:54 161/75 02/29/20 13:53 22 161/75 Mechanical Ventilator 70 02/29/20 13:52 22 161/75 70 02/29/20 13:30 95 0 161/75 (103) 99 02/29/20 13:00 22 161/77 70 02/29/20 13:00 22 Endotracheal Tube 70 02/29/20 13:00 94 0 161/77 (105) 98 02/29/20 12:30 94 22 156/75 (102) 98 02/29/20 12:00 98.8 02/29/20 12:00 70 02/29/20 12:00 94 02/29/20 12:00 22 150/68 Endotracheal Tube 70 02/29/20 12:00 22 Endotracheal Tube 70 02/29/20 12:00 Mechanical Ventilator 02/29/20 12:00 95 22 154/71 (98) 99 02/29/20 11:30 97 22 150/68 (95) 99 02/29/20 11:30 112 22 100 Mechanical Ventilator 70 110 23 80 02/29/20 11:15 22 154/71 Endotracheal Tube 70 02/29/20 11:15 22 Endotracheal Tube 70 02/29/20 11:00 104 22 156/72 (100) 98 02/29/20 11:00 22 196/85 Endotracheal Tube 70 02/29/20 11:00 22 Endotracheal Tube 70 02/29/20 10:45 22 152/75 Endotracheal Tube 70 02/29/20 10:45 22 Endotracheal Tube 70 02/29/20 10:30 22 171/80 Endotracheal Tube 70 02/29/20 10:30 22 Endotracheal Tube 100 02/29/20 10:30 100 22 196/85 (122) 98 02/29/20 10:15 22 165/62 Endotracheal Tube 70 02/29/20 10:15 22 70 02/29/20 10:00 95 0 156/75 (102) 98 02/29/20 10:00 22 156/85 Endotracheal Tube 100 02/29/20 10:00 22 Endotracheal Tube 100 02/29/20 09:48 156/85 02/29/20 09:47 22 156/75 Endotracheal Tube 100 02/29/20 09:47 22 157/65 Endotracheal Tube 70 02/29/20 09:00 22 165/71 Endotracheal Tube 70 02/29/20 09:00 99 0 165/71 (102) 98 02/29/20 08:12 96 161/69 02/29/20 08:12 86 161/69 02/29/20 08:00 99.0 94 0 161/69 (99) 98 02/29/20 08:00 Mechanical Ventilator 02/29/20 08:00 60 02/29/20 08:00 22 161/69 Endotracheal Tube 60 02/29/20 07:53 95 02/29/20 07:24 94 22 100 Mechanical Ventilator 45 96 23 80 02/29/20 07:00 87 0 151/67 (95) 98 02/29/20 07:00 22 148/67 Endotracheal Tube 60 02/29/20 06:41 22 151/67 Mechanical Ventilator 60 02/29/20 06:00 77 22 158/65 (96) 99 02/29/20 05:59 22 166/77 Mechanical Ventilator 60 02/29/20 05:41 22 166/77 Mechanical Ventilator 60 02/29/20 05:06 166/77 02/29/20 05:00 89 22 166/77 (106) 99 02/29/20 04:41 22 152/71 Mechanical Ventilator 60 02/29/20 04:20 79 02/29/20 04:20 86 22 100 Mechanical Ventilator 45 100 23 80 02/29/20 04:00 Mechanical Ventilator 02/29/20 04:00 60 02/29/20 04:00 99.4 70 22 152/71 (98) 99 02/29/20 03:41 22 154/77 Mechanical Ventilator 60 02/29/20 03:00 87 22 154/77 (102) 100 02/29/20 02:41 22 158/77 Mechanical Ventilator 60 02/29/20 02:00 82 22 158/77 (104) 98 02/29/20 01:41 22 175/79 Mechanical Ventilator 60 02/29/20 01:41 89 22 154/77 100 02/29/20 01:11 103 26 184/74 97 02/29/20 01:11 184/74 02/29/20 01:00 101 22 175/79 (111) 100 02/29/20 00:41 22 170/68 Mechanical Ventilator 60 02/29/20 00:00 99.7 75 22 170/68 (102) 100 02/29/20 00:00 Mechanical Ventilator 02/29/20 00:00 60 02/28/20 23:41 22 155/66 Mechanical Ventilator 60 02/28/20 23:10 81 22 100 Mechanical Ventilator 45 100 23 80 02/28/20 23:00 67 22 155/66 (95) 100 02/28/20 22:41 22 163/70 Mechanical Ventilator 60 02/28/20 22:26 66 20 157/65 100 02/28/20 22:00 79 22 163/70 (101) 100 02/28/20 21:58 24 164/70 Mechanical Ventilator 60 02/28/20 21:56 80 24 164/70 98 02/28/20 21:41 22 152/62 Mechanical Ventilator 60 02/28/20 21:00 75 22 152/62 (92) 100 02/28/20 20:41 99.9 02/28/20 20:30 73 02/28/20 20:11 119 151/66 02/28/20 20:05 92 22 145/66 100 02/28/20 20:00 100.5 82 22 151/66 (94) 100 02/28/20 20:00 Mechanical Ventilator 02/28/20 20:00 60 02/28/20 19:41 26 151/66 Mechanical Ventilator 60 02/28/20 19:35 124 26 141/107 97 02/28/20 19:15 115 23 100 Mechanical Ventilator 45 100 23 80 02/28/20 19:00 115 23 198/110 (139) 100 02/28/20 18:41 18 188/99 Mechanical Ventilator 60 02/28/20 18:30 116 16 188/107 (134) 100 02/28/20 18:00 109 17 155/95 (115) 100 02/28/20 17:41 16 158/68 Mechanical Ventilator 60 02/28/20 17:30 103 18 158/68 (98) 100 02/28/20 17:00 91 18 134/72 (92) 100 02/28/20 16:41 21 138/78 Mechanical Ventilator 60 02/28/20 16:30 99 21 138/78 (98) 100 02/28/20 16:00 106 18 158/91 (113) 100 02/28/20 16:00 Mechanical Ventilator 02/28/20 16:00 60 02/28/20 15:53 169/105 02/28/20 15:41 13 169/105 Mechanical Ventilator 60 02/28/20 15:30 110 13 169/105 (126) 100 02/28/20 15:28 100 22 100 Mechanical Ventilator 45 110 22 45 02/28/20 15:26 107 02/28/20 15:00 97 16 142/69 (93) 100 02/28/20 14:41 14 153/84 Mechanical Ventilator 60 02/28/20 14:30 102 14 153/84 (107) 100 02/28/20 14:00 103 16 155/90 (111) 100 02/28/20 13:41 15 154/93 Mechanical Ventilator 60 02/28/20 13:32 15 154/93 Mechanical Ventilator 60 02/28/20 13:30 108 16 154/93 (113) 99 02/28/20 13:15 110 16 153/80 (104) 99 02/28/20 13:00 100 13 148/85 (106) 100 02/28/20 12:32 18 151/87 Mechanical Ventilator 60 02/28/20 12:30 103 18 151/87 (108) 100 02/28/20 12:17 158/90 02/28/20 12:00 Mechanical Ventilator 02/28/20 12:00 99.5 104 10 158/90 (112) 100 02/28/20 12:00 106 02/28/20 11:32 15 161/87 Mechanical Ventilator 60 02/28/20 11:30 101 13 161/87 (111) 100 02/28/20 11:14 87 22 100 Mechanical Ventilator 45 85 22 45 02/28/20 11:00 88 4 154/79 (104) 100 02/28/20 10:45 75 19 143/74 (97) 100 02/28/20 10:32 22 135/72 Mechanical Ventilator 60 02/28/20 10:30 85 17 135/72 (93) 100 02/28/20 10:30 17 135/72 Mechanical Ventilator 60 02/28/20 10:00 84 17 139/73 (95) 100 Intake and Output 02/29/20 03/01/20 19:00 07:00 Intake Total 1180.833 ml 1005 ml Output Total 600 ml 480 ml Balance 580.833 ml 525 ml Free Water 60 ml IV Total 580.833 ml 465 ml Tube Feeding 540 ml 540 ml Output Urine Total 600 ml 480 ml # Bowel Movements 1 Labs Test 02/27/20 12:09 02/27/20 17:20 02/27/20 21:00 02/27/20 23:24 POC Whole Blood Glucose 226 MG/DL (74-106) 150 MG/DL (74-106) Test 02/28/20 03:37 02/28/20 04:30 02/28/20 08:48 02/28/20 09:39 White Blood Count 31.5 K/UL (4.8-10.8) Red Blood Count 3.68 M/UL (4.20-5.40) Hemoglobin 10.2 G/DL (12.0-16.0) Hematocrit 31.5 % (37.0-47.0) Mean Corpuscular Volume 86 FL (80-99) Mean Corpuscular Hemoglobin 27.7 PG (27.0-31.0) Mean Corpuscular Hemoglobin Concent 32.4 G/DL (32.0-36.0) Red Cell Distribution Width 19.6 % (11.6-14.8) Platelet Count 304 K/UL (150-450) Mean Platelet Volume 6.9 FL (6.5-10.1) Neutrophils (%) (Auto) % (45.0-75.0) Lymphocytes (%) (Auto) % (20.0-45.0) Monocytes (%) (Auto) % (1.0-10.0) Eosinophils (%) (Auto) % (0.0-3.0) Basophils (%) (Auto) % (0.0-2.0) Differential Total Cells Counted 100 Neutrophils % (Manual) 93 % (45-75) Lymphocytes % (Manual) 2 % (20-45) Monocytes % (Manual) 3 % (1-10) Eosinophils % (Manual) 0 % (0-3) Basophils % (Manual) 0 % (0-2) Band Neutrophils 2 % (0-8) Platelet Estimate Adequate Platelet Morphology Normal Polychromasia 1+ Hypochromasia 1+ Anisocytosis 2+ Spherocytes Stomatocytes Occasional Sodium Level 149 MMOL/L (136-145) Potassium Level 4.2 MMOL/L (3.5-5.1) Chloride Level 112 MMOL/L (98-107) Carbon Dioxide Level 28 MMOL/L (21-32) Anion Gap 9 mmol/L (5-15) Blood Urea Nitrogen 40 mg/dL (7-18) Creatinine 1.5 MG/DL (0.55-1.30) Estimat Glomerular Filtration Rate 42.9 mL/min (>60) Glucose Level 151 MG/DL (74-106) Calcium Level 8.0 MG/DL (8.5-10.1) Phosphorus Level 3.3 MG/DL (2.5-4.9) Magnesium Level 1.8 MG/DL (1.8-2.4) Total Bilirubin 1.0 MG/DL (0.2-1.0) Aspartate Amino Transf (AST/SGOT) 102 U/L (15-37) Alanine Aminotransferase (ALT/SGPT) 50 U/L (12-78) Alkaline Phosphatase 731 U/L (46-116) Total Protein 7.1 G/DL (6.4-8.2) Albumin 2.3 G/DL (3.4-5.0) Globulin 4.8 g/dL Albumin/Globulin Ratio 0.5 (1.0-2.7) Random Vancomycin Level 11.8 ug/mL Arterial Blood pH 7.340 (7.350-7.450) Arterial Blood Partial Pressure CO2 47.6 mmHg (35.0-45.0) Arterial Blood Partial Pressure O2 54.9 mmHg (75.0-100.0) Arterial Blood HCO3 28.6 mmol/L (22.0-26.0) Arterial Blood Oxygen Saturation 87.7 % (95-100) Arterial Blood Base Excess 3.3 (-2-2) Bryan Test Positive POC Whole Blood Glucose 165 MG/DL (74-106) Test 02/28/20 12:21 02/28/20 17:13 02/28/20 20:15 02/28/20 23:42 POC Whole Blood Glucose 201 MG/DL (74-106) 224 MG/DL (74-106) 188 MG/DL (74-106) Test 02/29/20 04:00 02/29/20 04:15 02/29/20 08:44 02/29/20 19:50 White Blood Count 23.1 K/UL (4.8-10.8) 21.6 K/UL (4.8-10.8) Red Blood Count 3.00 M/UL (4.20-5.40) 3.25 M/UL (4.20-5.40) Hemoglobin 8.7 G/DL (12.0-16.0) 9.0 G/DL (12.0-16.0) Hematocrit 25.7 % (37.0-47.0) 28.3 % (37.0-47.0) Mean Corpuscular Volume 86 FL (80-99) 87 FL (80-99) Mean Corpuscular Hemoglobin 29.0 PG (27.0-31.0) 27.6 PG (27.0-31.0) Mean Corpuscular Hemoglobin Concent 33.9 G/DL (32.0-36.0) 31.7 G/DL (32.0-36.0) Red Cell Distribution Width 19.9 % (11.6-14.8) 19.2 % (11.6-14.8) Platelet Count 171 K/UL (150-450) 155 K/UL (150-450) Mean Platelet Volume 7.1 FL (6.5-10.1) 8.2 FL (6.5-10.1) Neutrophils (%) (Auto) % (45.0-75.0) % (45.0-75.0) Lymphocytes (%) (Auto) % (20.0-45.0) % (20.0-45.0) Monocytes (%) (Auto) % (1.0-10.0) % (1.0-10.0) Eosinophils (%) (Auto) % (0.0-3.0) % (0.0-3.0) Basophils (%) (Auto) % (0.0-2.0) % (0.0-2.0) Differential Total Cells Counted 100 100 Neutrophils % (Manual) 92 % (45-75) 86 % (45-75) Lymphocytes % (Manual) 3 % (20-45) 8 % (20-45) Monocytes % (Manual) 5 % (1-10) 2 % (1-10) Eosinophils % (Manual) 0 % (0-3) 0 % (0-3) Basophils % (Manual) 0 % (0-2) 0 % (0-2) Band Neutrophils 0 % (0-8) 4 % (0-8) Platelet Estimate Adequate Adequate Platelet Morphology Normal Normal Polychromasia 1+ 1+ Hypochromasia 1+ 2+ Anisocytosis 2+ 1+ Sodium Level 152 MMOL/L (136-145) Potassium Level 3.3 MMOL/L (3.5-5.1) Chloride Level 117 MMOL/L (98-107) Carbon Dioxide Level 27 MMOL/L (21-32) Anion Gap 8 mmol/L (5-15) Blood Urea Nitrogen 40 mg/dL (7-18) Creatinine 1.5 MG/DL (0.55-1.30) Estimat Glomerular Filtration Rate 42.9 mL/min (>60) Glucose Level 148 MG/DL (74-106) Calcium Level 7.6 MG/DL (8.5-10.1) Total Bilirubin 0.8 MG/DL (0.2-1.0) Aspartate Amino Transf (AST/SGOT) 78 U/L (15-37) Alanine Aminotransferase (ALT/SGPT) 39 U/L (12-78) Alkaline Phosphatase 589 U/L (46-116) Total Protein 5.8 G/DL (6.4-8.2) Albumin 1.7 G/DL (3.4-5.0) Globulin 4.1 g/dL Albumin/Globulin Ratio 0.4 (1.0-2.7) Random Vancomycin Level 14.7 ug/mL Stool Occult Blood Positive (NEGATIVE) Arterial Blood pH 7.385 (7.350-7.450) Arterial Blood Partial Pressure CO2 45.7 mmHg (35.0-45.0) Arterial Blood Partial Pressure O2 63.3 mmHg (75.0-100.0) Arterial Blood HCO3 26.7 mmol/L (22.0-26.0) Arterial Blood Oxygen Saturation 90.7 % (95-100) Arterial Blood Base Excess 1.4 (-2-2) Bryan Test Positive Test 03/01/20 04:00 White Blood Count 22.7 K/UL (4.8-10.8) Red Blood Count 3.17 M/UL (4.20-5.40) Hemoglobin 9.1 G/DL (12.0-16.0) Hematocrit 27.9 % (37.0-47.0) Mean Corpuscular Volume 88 FL (80-99) Mean Corpuscular Hemoglobin 28.7 PG (27.0-31.0) Mean Corpuscular Hemoglobin Concent 32.6 G/DL (32.0-36.0) Red Cell Distribution Width 18.7 % (11.6-14.8) Platelet Count 169 K/UL (150-450) Mean Platelet Volume 9.0 FL (6.5-10.1) Neutrophils (%) (Auto) % (45.0-75.0) Lymphocytes (%) (Auto) % (20.0-45.0) Monocytes (%) (Auto) % (1.0-10.0) Eosinophils (%) (Auto) % (0.0-3.0) Basophils (%) (Auto) % (0.0-2.0) Differential Total Cells Counted 100 Neutrophils % (Manual) 95 % (45-75) Lymphocytes % (Manual) 5 % (20-45) Monocytes % (Manual) 0 % (1-10) Eosinophils % (Manual) 0 % (0-3) Basophils % (Manual) 0 % (0-2) Band Neutrophils 0 % (0-8) Platelet Estimate Adequate Platelet Morphology Normal Hypochromasia 1+ Anisocytosis 1+ Sodium Level 149 MMOL/L (136-145) Potassium Level 4.0 MMOL/L (3.5-5.1) Chloride Level 115 MMOL/L (98-107) Carbon Dioxide Level 29 MMOL/L (21-32) Anion Gap 5 mmol/L (5-15) Blood Urea Nitrogen 40 mg/dL (7-18) Creatinine 1.3 MG/DL (0.55-1.30) Estimat Glomerular Filtration Rate 50.7 mL/min (>60) Glucose Level 286 MG/DL (74-106) Calcium Level 7.9 MG/DL (8.5-10.1) Total Bilirubin 0.6 MG/DL (0.2-1.0) Aspartate Amino Transf (AST/SGOT) 42 U/L (15-37) Alanine Aminotransferase (ALT/SGPT) 30 U/L (12-78) Alkaline Phosphatase 498 U/L (46-116) Total Protein 6.0 G/DL (6.4-8.2) Albumin 1.6 G/DL (3.4-5.0) Globulin 4.4 g/dL Albumin/Globulin Ratio 0.4 (1.0-2.7) Height (Feet): 5 Height (Inches): 1.00 Weight (Pounds): 168 Objective PHYSICAL EXAMINATION: GENERAL: An obese woman, seen in the ICU in her room. HEENT: Normocephalic and atraumatic. Sclerae are anicteric. NECK: Supple. ++vent CHEST: Exam revealed coarse breath sounds. CARDIOVASCULAR: Exam revealed a tachycardic heart rate. ABDOMEN: Soft, obese, and nontender. EXTREMITIES: Trace edema. Rodolfo Ohara MD Mar 01, 2020 09:45
[2020-03-01] MEDS: Levemir Flexpen SUBQ SCH ×2 (09:59→21:00)
--- NOTE | 2020-03-01 10:00 | NUR ---
NURSE NOTES: Scheduled medications given including Levemir. Feeding changed to Glucerna 1.2 at 65 as ordered. G tube flushed and patent. Versed lisa. IVP medications given though red port. Resistance noted but able to flush. Patient stable at this time.
--- NOTE | 2020-03-01 11:38 | Infectious Diseases Prog Note ---
Assessment/Plan Assessment/Plan antibiotics : vancomycin iv, remdesivir A 1. MRSA cavitary pneumonia sputum AFB negative x 3 2. MRSA sepsis r/o endocarditis 3. diabetes mellitus 4. hypertension 5. COPD 6. respiratory failure 7. aortic stenosis 8. COVID 19 pneumonia on 70 percent FiO2,saturation 99 % s/p ivermectin 11.27.20 s/p remdesivir 9, leucocytosis likely secondary to steroids improving P 1. continue iv vancomycin 13 more days 2. decrease solumedrol 3. will follow up cultures 4. continue isolation Subjective ROS Limited/Unobtainable: Yes Allergies: Coded Allergies: No Known Allergies (Unverified , 07/30/15) Objective Last 24 Hour Vital Signs Date Time Temp Pulse Resp B/P (MAP) Pulse Ox O2 Delivery O2 Flow Rate FiO2 03/01/20 10:00 95 5 165/71 (102) 92 03/01/20 09:20 22 60 03/01/20 09:20 79 177/86 03/01/20 09:19 79 177/81 03/01/20 09:18 177/81 03/01/20 09:00 82 9 177/81 (113) 97 03/01/20 08:00 60 03/01/20 08:00 99.3 66 0 144/65 (91) 98 03/01/20 08:00 Mechanical Ventilator 03/01/20 07:37 86 03/01/20 07:00 87 22 172/78 (109) 99 03/01/20 07:00 22 Mechanical Ventilator 60 03/01/20 06:53 22 172/78 60 03/01/20 06:49 22 165/76 Mechanical Ventilator 60 03/01/20 06:00 22 Mechanical Ventilator 60 03/01/20 06:00 84 22 157/76 (103) 98 03/01/20 05:53 22 157/76 Mechanical Ventilator 60 03/01/20 05:00 65 22 146/64 (91) 98 03/01/20 05:00 22 Mechanical Ventilator 60 03/01/20 04:53 22 146/64 Mechanical Ventilator 60 03/01/20 04:15 85 03/01/20 04:00 Mechanical Ventilator 03/01/20 04:00 22 Mechanical Ventilator 60 03/01/20 04:00 99.4 91 22 161/73 (102) 100 03/01/20 04:00 60 03/01/20 03:53 60 161/73 Mechanical Ventilator 60 03/01/20 03:29 91 22 60 03/01/20 03:00 81 22 160/71 (100) 98 03/01/20 03:00 22 Mechanical Ventilator 60 03/01/20 02:53 22 160/71 Mechanical Ventilator 60 03/01/20 02:00 22 60 03/01/20 02:00 82 22 156/75 (102) 99 03/01/20 01:53 22 156/75 Mechanical Ventilator 60 03/01/20 01:00 61 22 130/60 (83) 99 03/01/20 01:00 22 Mechanical Ventilator 60 03/01/20 00:53 22 130/60 Mechanical Ventilator 60 03/01/20 00:06 62 03/01/20 00:00 98.7 63 22 135/61 (85) 99 03/01/20 00:00 Mechanical Ventilator 03/01/20 00:00 22 60 03/01/20 00:00 60 02/29/20 23:53 22 135/61 Mechanical Ventilator 70 02/29/20 23:44 63 22 60 02/29/20 23:30 22 70 02/29/20 23:00 22 70 02/29/20 23:00 82 22 151/70 (97) 100 02/29/20 22:53 22 151/70 Mechanical Ventilator 70 02/29/20 22:30 82 22 146/69 (94) 100 02/29/20 22:02 22 141/65 Mechanical Ventilator 70 02/29/20 22:00 22 Mechanical Ventilator 70 02/29/20 22:00 60 22 140/65 (90) 100 02/29/20 21:53 22 140/65 Mechanical Ventilator 70 02/29/20 21:00 63 22 150/68 (95) 100 02/29/20 21:00 22 70 02/29/20 20:15 70 160/76 02/29/20 20:00 Mechanical Ventilator 02/29/20 20:00 99.7 87 22 160/76 (104) 100 02/29/20 20:00 22 Mechanical Ventilator 70 02/29/20 20:00 70 02/29/20 19:43 90 22 70 02/29/20 19:39 89 02/29/20 19:00 22 Mechanical Ventilator 70 12/3/20 19:00 100.6 73 22 140/65 (90) 100 02/29/20 18:30 101.7 80 22 150/66 (94) 100 02/29/20 18:30 101.7 02/29/20 18:00 102.3 90 21 162/75 (104) 100 02/29/20 17:55 188/84 02/29/20 17:30 104 22 188/84 (118) 99 02/29/20 17:00 122 26 177/75 (109) 98 02/29/20 16:30 120 26 156/72 (100) 98 02/29/20 16:00 70 02/29/20 16:00 Mechanical Ventilator 02/29/20 16:00 98.0 97 22 155/70 (98) 99 02/29/20 15:19 101 02/29/20 15:15 95 22 100 Mechanical Ventilator 70 102 23 80 02/29/20 15:00 98 22 160/75 (103) 98 02/29/20 14:30 99 22 161/75 (103) 99 02/29/20 14:00 97.8 95 0 169/81 (110) 99 02/29/20 14:00 22 169/81 Endotracheal Tube 70 02/29/20 13:54 161/75 02/29/20 13:53 22 161/75 Mechanical Ventilator 70 02/29/20 13:52 22 161/75 70 02/29/20 13:30 95 0 161/75 (103) 99 02/29/20 13:00 22 161/77 70 02/29/20 13:00 22 Endotracheal Tube 70 02/29/20 13:00 94 0 161/77 (105) 98 02/29/20 12:30 94 22 156/75 (102) 98 02/29/20 12:00 98.8 02/29/20 12:00 70 02/29/20 12:00 94 02/29/20 12:00 22 150/68 Endotracheal Tube 70 02/29/20 12:00 22 Endotracheal Tube 70 02/29/20 12:00 Mechanical Ventilator 02/29/20 12:00 95 22 154/71 (98) 99 Height (Feet): 5 Height (Inches): 1.00 Weight (Pounds): 168 HEENT: other - intubated Laboratory Tests Test 02/29/20 19:50 03/01/20 04:00 White Blood Count 21.6 K/UL (4.8-10.8) H 22.7 K/UL (4.8-10.8) *H Red Blood Count 3.25 M/UL (4.20-5.40) L 3.17 M/UL (4.20-5.40) L Hemoglobin 9.0 G/DL (12.0-16.0) L 9.1 G/DL (12.0-16.0) L Hematocrit 28.3 % (37.0-47.0) L 27.9 % (37.0-47.0) L Mean Corpuscular Volume 87 FL (80-99) 88 FL (80-99) Mean Corpuscular Hemoglobin 27.6 PG (27.0-31.0) 28.7 PG (27.0-31.0) Mean Corpuscular Hemoglobin Concent 31.7 G/DL (32.0-36.0) L 32.6 G/DL (32.0-36.0) Red Cell Distribution Width 19.2 % (11.6-14.8) H 18.7 % (11.6-14.8) H Platelet Count 155 K/UL (150-450) 169 K/UL (150-450) Mean Platelet Volume 8.2 FL (6.5-10.1) 9.0 FL (6.5-10.1) Neutrophils (%) (Auto) % (45.0-75.0) % (45.0-75.0) Lymphocytes (%) (Auto) % (20.0-45.0) % (20.0-45.0) Monocytes (%) (Auto) % (1.0-10.0) % (1.0-10.0) Eosinophils (%) (Auto) % (0.0-3.0) % (0.0-3.0) Basophils (%) (Auto) % (0.0-2.0) % (0.0-2.0) Differential Total Cells Counted 100 100 Neutrophils % (Manual) 86 % (45-75) H 95 % (45-75) H Lymphocytes % (Manual) 8 % (20-45) L 5 % (20-45) L Monocytes % (Manual) 2 % (1-10) 0 % (1-10) L Eosinophils % (Manual) 0 % (0-3) 0 % (0-3) Basophils % (Manual) 0 % (0-2) 0 % (0-2) Band Neutrophils 4 % (0-8) 0 % (0-8) Platelet Estimate Adequate Adequate Platelet Morphology Normal Normal Polychromasia 1+ Hypochromasia 2+ 1+ Anisocytosis 1+ 1+ Sodium Level 149 MMOL/L (136-145) H Potassium Level 4.0 MMOL/L (3.5-5.1) Chloride Level 115 MMOL/L (98-107) H Carbon Dioxide Level 29 MMOL/L (21-32) Anion Gap 5 mmol/L (5-15) Blood Urea Nitrogen 40 mg/dL (7-18) H Creatinine 1.3 MG/DL (0.55-1.30) Estimat Glomerular Filtration Rate 50.7 mL/min (>60) Glucose Level 286 MG/DL (74-106) #H Calcium Level 7.9 MG/DL (8.5-10.1) L Total Bilirubin 0.6 MG/DL (0.2-1.0) Aspartate Amino Transf (AST/SGOT) 42 U/L (15-37) H Alanine Aminotransferase (ALT/SGPT) 30 U/L (12-78) Alkaline Phosphatase 498 U/L (46-116) H Total Protein 6.0 G/DL (6.4-8.2) L Albumin 1.6 G/DL (3.4-5.0) L Globulin 4.4 g/dL Albumin/Globulin Ratio 0.4 (1.0-2.7) L Current Medications Medications (Trade) Dose Ordered Sig/Ivana Route PRN Reason Start Time Stop Time Status Last Admin Dose Admin Acetaminophen (Tylenol) 650 mg EVERY 6 HOURS PRN NG Mild Pain (Pain Scale 1-3) 02/27/20 07:45 03/28/20 07:44 02/29/20 17:57 Amlodipine Besylate (Norvasc) 10 mg DAILY NG 02/27/20 09:00 03/02/20 08:59 03/01/20 09:20 Aspirin (ASA) 81 mg DAILY NG 02/27/20 09:00 03/30/20 08:59 03/01/20 09:18 Chlorhexidine Gluconate (Divina-Hex 2%) 1 applic DAILY@2000 TOPIC 02/26/20 20:00 05/26/20 19:59 02/29/20 20:15 Clonidine HCl (Catapres Tab) 0.1 mg Q4H PRN ORAL SBP > 150mmHg 02/06/20 07:00 05/06/20 06:59 02/29/20 17:55 Dextrose (Dextrose 50%) 25 ml Q30M PRN IV Hypoglycemia 01/28/20 22:45 04/27/20 22:44 Dextrose (Dextrose 50%) 50 ml Q30M PRN IV Hypoglycemia 01/28/20 22:45 04/27/20 22:44 Epoetin Haseeb (Epoetin Haseeb-EPBX(NON ESRD)) 8,000 unit WED-WED-WED SUBQ 02/05/20 21:00 05/05/20 20:59 02/28/20 20:58 Fentanyl Citrate 250 ml @ 1 mls/hr Q24H IV 02/29/20 15:00 03/02/20 09:00 03/01/20 06:49 Furosemide (Lasix) 20 mg EVERY 12 HOURS IV 03/01/20 21:00 03/31/20 20:59 Guaifenesin/ Dextromethorphan (Robitussin DM Syrup) 15 ml Q4H PRN ORAL For Cough 02/12/20 16:53 05/12/20 16:52 02/19/20 22:21 Heparin Sodium (Porcine) (Heparin 5000 units/ml) 5,000 units EVERY 12 HOURS SUBQ 02/28/20 21:00 04/13/20 20:59 03/01/20 09:17 Hydralazine HCl (Apresoline) 25 mg Q6H PRN ORAL SBP above 150 02/27/20 23:15 05/27/20 23:14 02/29/20 13:54 Insulin Aspart (NovoLOG) Q6HR SUBQ 01/29/20 00:00 04/28/20 00:00 03/01/20 06:00 Insulin Detemir (Levemir) 5 units EVERY 12 HOURS SUBQ 03/01/20 09:00 05/30/20 08:59 03/01/20 09:59 Ipratropium [place] (Atrovent Inh) 1 puffs Q4HRT INH 02/28/20 15:00 03/19/20 17:59 02/29/20 15:21 Lidocaine (Lidoderm 5% PATCH) 1 patch DAILY TDERMAL 02/11/20 09:30 05/11/20 09:29 03/01/20 09:20 Methocarbamol (Robaxin) 500 mg Q8H PRN ORAL muscle spasm 02/11/20 09:30 03/12/20 09:29 02/21/20 05:13 Methylprednisolone Sodium Succinate (Solu-MEDROL) 10 mg ONCE IVP 03/02/20 09:00 03/02/20 11:00 Metoprolol Tartrate (Lopressor) 50 mg Q12HR NG 03/01/20 07:45 05/04/20 20:59 03/01/20 09:19 Midazolam HCl 50 mg/Sodium Chloride 100 ml @ 0 mls/hr Q24H PRN IV SEDATION 02/29/20 07:30 03/02/20 07:29 03/01/20 09:20 Morphine Sulfate (Morphine Sulfate) 2 mg Q2H PRN IVP For Pain 4-10 02/24/20 15:00 03/02/20 14:59 02/29/20 05:06 Multivitamins (Multivitamins W/ Minerals 15ml Liquid) 15 ml DAILY NG 02/27/20 09:00 03/28/20 08:59 03/01/20 09:16 Nitroglycerin (Nitro-Bid) 1 inch DAILY TOPIC 02/29/20 10:00 03/30/20 09:59 03/01/20 09:18 Nitroglycerin (Ntg) 0.4 mg Q5M PRN SL Prn Chest Pain 02/01/20 08:00 03/02/20 07:59 02/21/20 14:57 Pantoprazole (Protonix) 40 mg EVERY 12 HOURS IVP 02/25/20 10:00 03/24/20 08:59 03/01/20 09:18 Sorbitol (sorbitoL) 30 ml Q8H PRN NG Constipation 02/28/20 16:15 03/29/20 16:14 02/28/20 17:08 Vancomycin HCl (Vanco pharmacy to dose) 1 ea DAILY PRN MISC Per rx protocol 02/13/20 11:30 03/14/20 11:29 Messi Lopez MD Mar 01, 2020 11:38
--- NOTE | 2020-03-01 12:00 | NUR ---
NURSE NOTES: Patient stable. No s/sx of pain or distress. Temp elevated. Will reassess in 1hr.
--- NOTE | 2020-03-01 12:31 | Critical Care Progress Note ---
Assessment/Plan Assessment/Plan IMPRESSION acute respiratory failure/ now on vent leukocytosis, possibly exacerbated by steroids sepsis ARF toxic met encephalopathy COPD DM poor control cavitary lesion negative AFB groundglass infiltrates NSTEMI severe PCM hypertension left shoulder pain bacteremia MRSA hematuria COVID anemia diabetes s/p respiratory code hypernatremia edema PLAN try lasix monitor sodium levels DVT prophylaxis transfused and monitor HH antibiotics per ID titrate BP meds vent support- consider wean monitor acid base NGT and feeds monitor lytes maintain support monitor LOC monitor bp critical try to wean if possible/ unable for now maintain sedation medications/laboratory data/nursing notes/ICU care reviewed in detail note reviewed and edited care discussed with RN and RT ICU time spent >40 minutes Critical Care - Subjective Interval Events: on vent acidotic on wean now on PC ROS Limited/Unobtainable: Yes Condition: critical EKG Rhythm: Sinus Rhythm Residuals: minimal Tube Feeding Tolerated: yes I&O: Intake and Output 02/29/20 03/01/20 19:00 07:00 Intake Total 1180.833 ml 1005 ml Output Total 600 ml 480 ml Balance 580.833 ml 525 ml Free Water 60 ml IV Total 580.833 ml 465 ml Tube Feeding 540 ml 540 ml Output Urine Total 600 ml 480 ml # Bowel Movements 1 Critical Care - Objective ET-Tube: 7.5 ET Position: 25 Last 24 Hour Vital Signs Date Time Temp Pulse Resp B/P (MAP) Pulse Ox O2 Delivery O2 Flow Rate FiO2 03/01/20 10:00 95 5 165/71 (102) 92 03/01/20 09:20 22 60 03/01/20 09:20 79 177/86 03/01/20 09:19 79 177/81 03/01/20 09:18 177/81 03/01/20 09:00 82 9 177/81 (113) 97 03/01/20 08:00 60 03/01/20 08:00 99.3 66 0 144/65 (91) 98 03/01/20 08:00 Mechanical Ventilator 03/01/20 07:37 86 03/01/20 07:00 87 22 172/78 (109) 99 03/01/20 07:00 22 Mechanical Ventilator 60 03/01/20 06:53 22 172/78 60 03/01/20 06:49 22 165/76 Mechanical Ventilator 60 03/01/20 06:00 22 Mechanical Ventilator 60 03/01/20 06:00 84 22 157/76 (103) 98 03/01/20 05:53 22 157/76 Mechanical Ventilator 60 03/01/20 05:00 65 22 146/64 (91) 98 03/01/20 05:00 22 Mechanical Ventilator 60 03/01/20 04:53 22 146/64 Mechanical Ventilator 60 03/01/20 04:15 85 03/01/20 04:00 Mechanical Ventilator 03/01/20 04:00 22 Mechanical Ventilator 60 03/01/20 04:00 99.4 91 22 161/73 (102) 100 03/01/20 04:00 60 03/01/20 03:53 60 161/73 Mechanical Ventilator 60 03/01/20 03:29 91 22 60 03/01/20 03:00 81 22 160/71 (100) 98 03/01/20 03:00 22 Mechanical Ventilator 60 03/01/20 02:53 22 160/71 Mechanical Ventilator 60 03/01/20 02:00 22 60 03/01/20 02:00 82 22 156/75 (102) 99 03/01/20 01:53 22 156/75 Mechanical Ventilator 60 03/01/20 01:00 61 22 130/60 (83) 99 03/01/20 01:00 22 Mechanical Ventilator 60 03/01/20 00:53 22 130/60 Mechanical Ventilator 60 03/01/20 00:06 62 03/01/20 00:00 98.7 63 22 135/61 (85) 99 03/01/20 00:00 Mechanical Ventilator 03/01/20 00:00 22 60 03/01/20 00:00 60 02/29/20 23:53 22 135/61 Mechanical Ventilator 70 02/29/20 23:44 63 22 60 02/29/20 23:30 22 70 02/29/20 23:00 22 70 02/29/20 23:00 82 22 151/70 (97) 100 02/29/20 22:53 22 151/70 Mechanical Ventilator 70 02/29/20 22:30 82 22 146/69 (94) 100 02/29/20 22:02 22 141/65 Mechanical Ventilator 70 02/29/20 22:00 22 Mechanical Ventilator 70 02/29/20 22:00 60 22 140/65 (90) 100 02/29/20 21:53 22 140/65 Mechanical Ventilator 70 02/29/20 21:00 63 22 150/68 (95) 100 02/29/20 21:00 22 70 02/29/20 20:15 70 160/76 02/29/20 20:00 Mechanical Ventilator 02/29/20 20:00 99.7 87 22 160/76 (104) 100 02/29/20 20:00 22 Mechanical Ventilator 70 02/29/20 20:00 70 02/29/20 19:43 90 22 70 02/29/20 19:39 89 02/29/20 19:00 22 Mechanical Ventilator 70 02/29/20 19:00 100.6 73 22 140/65 (90) 100 02/29/20 18:30 101.7 80 22 150/66 (94) 100 02/29/20 18:30 101.7 02/29/20 18:00 102.3 90 21 162/75 (104) 100 02/29/20 17:55 188/84 02/29/20 17:30 104 22 188/84 (118) 99 02/29/20 17:00 122 26 177/75 (109) 98 02/29/20 16:30 120 26 156/72 (100) 98 02/29/20 16:00 70 02/29/20 16:00 Mechanical Ventilator 02/29/20 16:00 98.0 97 22 155/70 (98) 99 02/29/20 15:19 101 02/29/20 15:15 95 22 100 Mechanical Ventilator 70 102 23 80 02/29/20 15:00 98 22 160/75 (103) 98 02/29/20 14:30 99 22 161/75 (103) 99 02/29/20 14:00 97.8 95 0 169/81 (110) 99 02/29/20 14:00 22 169/81 Endotracheal Tube 70 02/29/20 13:54 161/75 02/29/20 13:53 22 161/75 Mechanical Ventilator 70 02/29/20 13:52 22 161/75 70 02/29/20 13:30 95 0 161/75 (103) 99 02/29/20 13:00 22 161/77 70 02/29/20 13:00 22 Endotracheal Tube 70 02/29/20 13:00 94 0 161/77 (105) 98 Labs: Laboratory Tests 02/29/20 19:50: White Blood Count 21.6H, Red Blood Count 3.25L, Hemoglobin 9.0L, Hematocrit 28.3L, Mean Corpuscular Volume 87, Mean Corpuscular Hemoglobin 27.6, Mean Co rpuscular Hemoglobin Concent 31.7L, Red Cell Distribution Width 19.2H, Platelet Count 155, Mean Platelet Volume 8.2, Neutrophils (%) (Auto) , Lymphocytes (%) (Auto) , Monocytes (%) (Auto) , Eosinophils (%) (Auto) , Basophils (%) (Auto) , Differential Total Cells Counted 100, Neutrophils % (Manual) 86H, Lymphocytes % (Manual) 8L, Monocytes % (Manual) 2, Eosinophils % (Manual) 0, Basophils % (Manual) 0, Band Neutrophils 4, Platelet Estimate Adequate, Platelet Morphology Normal, Polychromasia 1+, Hypochromasia 2+, Anisocytosis 1+ 03/01/20 04:00: White Blood Count 22.7*H, Red Blood Count 3.17L, Hemoglobin 9.1L, Hematocrit 27.9L, Mean Corpuscular Volume 88, Mean Corpuscular Hemoglobin 28.7, Mean Corpuscular Hemoglobin Concent 32.6, Red Cell Distribution Width 18.7H, Platelet Count 169, Mean Platelet Volume 9.0, Neutrophils (%) (Auto) , Lymphocytes (%) (Auto) , Monocytes (%) (Auto) , Eosinophils (%) (Auto) , Basophils (%) (Auto) , Differential Total Cells Counted 100, Neutrophils % (Manual) 95H, Lymphocytes % (Manual) 5L, Monocytes % (Manual) 0L, Eosinophils % (Manual) 0, Basophils % (Manual) 0, Band Neutrophils 0, Platelet Estimate Adequate, Platelet Morphology Normal, Hypochromasia 1+, Anisocytosis 1+, Sodium Level 149H, Potassium Level 4.0, Chloride Level 115H, Carbon Dioxide Level 29, Anion Gap 5, Blood Urea Nitrogen 40H, Creatinine 1.3, Estimat Glomerular Filtration Rate 50.7, Glucose Level 286#H, Calcium Level 7.9L, Total Bilirubin 0.6, Aspartate Amino Transf (AST/SGOT) 42H, Alanine Aminotransferase (ALT/SGPT) 30, Alkaline Phosphatase 498H, Total Protein 6.0L, Albumin 1.6L, Globulin 4.4, Albumin/Globulin Ratio 0.4L Objective: deferred due to COVID Accucheck: 241 Germán Feliz MD Mar 01, 2020 12:31
--- NOTE | 2020-03-01 13:30 | NUR ---
NURSE NOTES: Patient has fever. Tylenol given. Cooling measures applied. PRN clonidine given.
[2020-03-01] MEDS: Acetaminophen 650mg/20.3ml NG PRN ×2 (13:41→19:19)
--- NOTE | 2020-03-01 15:15 | NUR ---
NURSE NOTES: Unable to scan Fentanyl bag. Pump started to beep at this time and it was determined that it was necessary to continue with administration to ensure patient was under therapeutic treatment to maintain adequate sedation of RASS -2.
--- NOTE | 2020-03-01 16:00 | NUR ---
NURSE NOTES: Temp normal. No s/sx of pain or distress.
--- NOTE | 2020-03-01 16:00 | NUR ---
NURSE NOTES: Blood transfusing completed. Patient stable with no s/sx of reaction. Addendum: 03/01/20 at 1950 by REYNA VILLELA RN DISREGARD
--- NOTE | 2020-03-01 16:40 | NUR ---
CASE MANAGEMENT:REVIEW SI;RESP FAILURE ETT/VENT SUPPORT,SEPSIS. 101.3 95 22 169/79 95% ETT/VENT AC 22 TV 550 PEEP 8.0 FIO2 60///5 WBC 22.7 H/H 9.1/27.9 NA 149 BUN 40 BG 286 ALT 42 ALP 498 ALB 1.6 IS;SOLU-MEDROL IV FENTANYL GTT VERSED GTT IV ASA NG QD PROTONIX IV Q12 ICU STATUS DCP;FROM HOME
--- NOTE | 2020-03-01 19:30 | NUR ---
NURSE HAND-OFF REPORT: Latest Vital Signs: Temperature 101.0 , Pulse 96 , B/P 160 /75 , Respiratory Rate 22 , O2 SAT 97 , Mechanical Ventilator, O2 Flow Rate . Vital Sign Comment: STABLE but has fever EKG Rhythm: Sinus Rhythm Rhythm change?: N Notified?: Jay briceño MD Response: Latest Pineda Fall Score: 50 Fall Risk: High Risk Safety Measures: Call light Within Reach, Bed Alarm Zone 2, Side Rails Side Rails x3, Bed position Low and Locked. Fall Precautions: Door Sign Report given to Amara BUSCH. Plan of care endorsed. Endorsed new vent settings and ordered ABG for tomorrow. Informed RN of 101F fever.
--- NOTE | 2020-03-01 20:18 | NUR ---
NURSE HAND-OFF REPORT: Latest Vital Signs: Temperature 101.0 , Pulse 96 , B/P 160 /75 , Respiratory Rate 22 , O2 SAT 97 , Mechanical Ventilator, O2 Flow Rate . Vital Sign Comment: WNL EKG Rhythm: Sinus Rhythm Rhythm change?: N Notified?: Jay briceño MD Response: Latest Pineda Fall Score: 50 Fall Risk: High Risk Safety Measures: Call light Within Reach, Bed Alarm Zone 2, Side Rails Side Rails x3, Bed position Low and Locked. Fall Precautions: Door Sign Report given to JO-ANN Flores.
--- NOTE | 2020-03-01 20:20 | NUR ---
NURSE NOTES: Received report from JO-ANN Maloney. Patient is obtunded, sedated but easy to arousable. Pt is orally intubated ETT 7.5/25cm @ lip line. Vent settings: AC 22 TV 550 FiO2 60% PEEP 8 Bilateral lower lobe breath sounds noted to be diminished upon auscultation. Pt noted to be SR/ST on tele monitor, R Upper Arm PICC line noted which remains asymptomatic, intact and patent. Fentanyl is infusing at 300mcg/hr as ordered and versed 5mcgs, 10mL/hr OG Tube noted which remains intact and secured. Glucerna 1.2 65mL/hr 150mL water flush Flores catheter noted draining yellow urine to gravity. Bilateral soft wrist restraints remain in place for pt safety. Aspiration and Skin precautions observed. Safety measures observed and no acute distress noted. Will continue to monitor.
[2020-03-01] MEDS: Dyna-Hex 2% Top Sol 2oz TOPIC SCH (21:03)
[2020-03-01] MEDS: Metoprolol Tartrate 50mg tab NG SCH (21:04)
[2020-03-01] MEDS: Epoetin Alfa-EPBX (NON ESRD)4000 units/ml vial SUBQ SCH (21:06)
--- NOTE | 2020-03-01 22:00 | NUR ---
NURSE NOTES: Turned and repositioned. Oral care provided.
--- NOTE | 2020-03-01 23:51 | General Progress Note ---
Subjective Allergies: Coded Allergies: No Known Allergies (Unverified , 07/30/15) Subjective Above noted sedated BM dark brown today tolerating TF H& H noted d/w staff engineer Objective Last 24 Hour Vital Signs Date Time Temp Pulse Resp B/P (MAP) Pulse Ox O2 Delivery O2 Flow Rate FiO2 03/01/20 23:32 11 156/76 Endotracheal Tube 60 03/01/20 23:04 98 23 60 03/01/20 23:00 18 03/01/20 22:00 18 Endotracheal Tube 60 03/01/20 21:04 97 155/76 03/01/20 21:00 18 Endotracheal Tube 60 03/01/20 20:54 18 Endotracheal Tube 60 03/01/20 20:00 Mechanical Ventilator 03/01/20 20:00 102 03/01/20 20:00 100.9 101 0 157/76 (103) 96 03/01/20 20:00 60 03/01/20 20:00 101 0 157/76 (103) 96 03/01/20 19:51 101 22 60 03/01/20 19:49 100.9 03/01/20 19:00 101.0 96 22 160/75 (103) 97 03/01/20 19:00 22 158/76 Endotracheal Tube 60 03/01/20 19:00 22 Endotracheal Tube 60 03/01/20 18:00 22 155/77 Endotracheal Tube 60 03/01/20 18:00 22 Endotracheal Tube 60 03/01/20 18:00 95 22 157/74 (101) 97 03/01/20 17:00 97 22 164/73 (103) 97 03/01/20 17:00 22 164/73 Endotracheal Tube 60 03/01/20 17:00 22 Endotracheal Tube 60 03/01/20 16:00 60 03/01/20 16:00 Mechanical Ventilator 03/01/20 16:00 98.8 03/01/20 16:00 22 162/76 Endotracheal Tube 60 03/01/20 16:00 22 Endotracheal Tube 60 03/01/20 16:00 95 03/01/20 16:00 95 0 169/79 (109) 97 03/01/20 15:28 96 22 60 03/01/20 15:15 22 167/79 Endotracheal Tube 60 03/01/20 15:00 22 167/79 Endotracheal Tube 60 12/4/20 15:00 22 Endotracheal Tube 60 03/01/20 15:00 94 0 162/80 (107) 96 03/01/20 14:11 101.3 03/01/20 14:00 22 159/73 Endotracheal Tube 60 03/01/20 14:00 22 Endotracheal Tube 60 03/01/20 14:00 93 0 163/78 (106) 96 03/01/20 13:42 162/76 03/01/20 13:00 22 162/76 Endotracheal Tube 60 03/01/20 13:00 22 Endotracheal Tube 60 03/01/20 13:00 101.1 91 0 166/74 (104) 95 03/01/20 12:00 100.0 97 0 148/73 (98) 96 03/01/20 12:00 60 03/01/20 12:00 22 149/70 Endotracheal Tube 60 03/01/20 12:00 22 Endotracheal Tube 60 03/01/20 12:00 Mechanical Ventilator 03/01/20 12:00 84 03/01/20 11:30 86 0 154/70 (98) 95 03/01/20 11:23 94 26 60 03/01/20 11:00 91 20 160/69 (99) 91 03/01/20 11:00 22 154/70 Endotracheal Tube 60 03/01/20 11:00 22 Endotracheal Tube 60 03/01/20 10:00 95 5 165/71 (102) 92 03/01/20 10:00 22 165/71 Endotracheal Tube 60 03/01/20 10:00 22 Endotracheal Tube 60 03/01/20 09:20 22 60 03/01/20 09:20 79 177/86 03/01/20 09:19 79 177/81 03/01/20 09:18 177/81 03/01/20 09:00 22 177/81 Endotracheal Tube 60 03/01/20 09:00 22 Endotracheal Tube 60 03/01/20 09:00 82 9 177/81 (113) 97 03/01/20 08:00 60 03/01/20 08:00 99.3 66 0 144/65 (91) 98 03/01/20 08:00 22 144/65 Endotracheal Tube 60 03/01/20 08:00 22 Endotracheal Tube 60 03/01/20 08:00 Mechanical Ventilator 03/01/20 07:37 86 03/01/20 07:35 86 28 60 03/01/20 07:00 87 22 172/78 (109) 99 03/01/20 07:00 22 Mechanical Ventilator 60 03/01/20 06:53 22 172/78 60 03/01/20 06:49 22 165/76 Mechanical Ventilator 60 03/01/20 06:00 22 Mechanical Ventilator 60 03/01/20 06:00 84 22 157/76 (103) 98 03/01/20 05:53 22 157/76 Mechanical Ventilator 60 03/01/20 05:00 65 22 146/64 (91) 98 03/01/20 05:00 22 Mechanical Ventilator 60 03/01/20 04:53 22 146/64 Mechanical Ventilator 60 03/01/20 04:15 85 03/01/20 04:00 Mechanical Ventilator 03/01/20 04:00 22 Mechanical Ventilator 60 03/01/20 04:00 99.4 91 22 161/73 (102) 100 03/01/20 04:00 60 03/01/20 03:53 60 161/73 Mechanical Ventilator 60 03/01/20 03:29 91 22 60 03/01/20 03:00 81 22 160/71 (100) 98 03/01/20 03:00 22 Mechanical Ventilator 60 03/01/20 02:53 22 160/71 Mechanical Ventilator 60 03/01/20 02:00 22 60 03/01/20 02:00 82 22 156/75 (102) 99 03/01/20 01:53 22 156/75 Mechanical Ventilator 60 03/01/20 01:00 61 22 130/60 (83) 99 03/01/20 01:00 22 Mechanical Ventilator 60 03/01/20 00:53 22 130/60 Mechanical Ventilator 60 03/01/20 00:06 62 03/01/20 00:00 98.7 63 22 135/61 (85) 99 03/01/20 00:00 Mechanical Ventilator 03/01/20 00:00 22 60 03/01/20 00:00 60 02/29/20 23:53 22 135/61 Mechanical Ventilator 70 Intake and Output 02/29/20 03/01/20 19:00 07:00 Intake Total 1180.833 ml 1005 ml Output Total 600 ml 480 ml Balance 580.833 ml 525 ml Free Water 60 ml IV Total 580.833 ml 465 ml Tube Feeding 540 ml 540 ml Output Urine Total 600 ml 480 ml # Bowel Movements 1 Laboratory Tests 03/01/20 04:00: White Blood Count 22.7*H, Red Blood Count 3.17L, Hemoglobin 9.1L, Hematocrit 27.9L, Mean Corpuscular Volume 88, Mean Corpuscular Hemoglobin 28.7, Mean Corpuscular Hemoglobin Concent 32.6, Red Cell Distribution Width 18.7H, Platelet Count 169, Mean Platelet Volume 9.0, Neutrophils (%) (Auto) , Lymphocytes (%) (Auto) , Monocytes (%) (Auto) , Eosinophils (%) (Auto) , Basophils (%) (Auto) , Differential Total Cells Counted 100, Neutrophils % (Manual) 95H, Lymphocytes % (Manual) 5L, Monocytes % (Manual) 0L, Eosinophils % (Manual) 0, Basophils % (Manual) 0, Band Neutrophils 0, Platelet Estimate Adequate, Platelet Morphology Normal, Hypochromasia 1+, Anisocytosis 1+, Sodium Level 149H, Potassium Level 4.0, Chloride Level 115H, Carbon Dioxide Level 29, Anion Gap 5, Blood Urea Nitrogen 40H, Creatinine 1.3, Estimat Glomerular Filtration Rate 50.7, Glucose Level 286#H, Calcium Level 7.9L, Total Bilirubin 0.6, Aspartate Amino Transf (AST/SGOT) 42H, Alanine Aminotransferase (ALT/SGPT) 30, Alkaline Phosphatase 498H, Total Protein 6.0L, Albumin 1.6L, Globulin 4.4, Albumin/Globulin Ratio 0.4L Height (Feet): 5 Height (Inches): 1.00 Weight (Pounds): 168 Objective Patient seen in ICU On vent (+) ETT and OGT calm Assessment/Plan Assessment/Plan: Assessment - GIB - resolved off of anticoagulation - Anemia - hypokalemia, DM and Hypernatremia - changed TF to DM formula - COVID pneumonitis, on Steroids - Acute OR - on ASA - Resp failure - malnutrition/feeding tube dependent - declining albumin - partly due to liver disease - fatty liver - hepatitis C with nodular liver, PCR (+) - abnormal LFT - due to COVD, fatty liver, and HCV - HTN - COPD - Lung mass - DM Recommendations - Continue TF - protein powder - Sq heparin - increase free water to correct Na - monitor CBC - follow LFT - PPI --> now BID - Elevate HOB - outpatient HCV eradication - Outpatient colonoscopy once recovered from current illness Feliberto Pérez MD Mar 01, 2020 23:50
[2020-03-02] VITALS (50 sets, daily range): BP systolic 134–206; BP diastolic 65–106
--- NOTE | 2020-03-02 | NUR ---
NURSE NOTES: Patient remains obtunded, sedated but easy to arousable. Pt remains orally intubated ETT 7.5/25cm @ lip line. Vent settings: AC 22 TV 550 FiO2 60% PEEP 8 Bilateral lower lobe breath sounds noted to be diminished upon auscultation. Pt noted to be SR/ST on tele monitor, R Upper Arm PICC line, CDI Fentanyl is infusing at 300mcg/hr as ordered and versed 5mcgs, 10mL/hr OG Tube remains intact and secured. Glucerna 1.2 65mL/hr 150mL water flush Flores catheter reamisn draining yellow urine to gravity. Bilateral soft wrist restraints remain in place for pt safety. Aspiration and Skin precautions observed. Safety measures observed and no acute distress noted. Will continue to monitor.
--- NOTE | 2020-03-02 02:00 | NUR ---
NURSE NOTES: Turned and repositioned. Oral care provided.
--- NOTE | 2020-03-02 04:00 | NUR ---
NURSE NOTES: AM care provided. Soiled gowns, linens, and sliders are all changed. P200 mattress inserted. Turned and repositioned. Oral care provided. PICC line site CDI. Flores draining and CDI.
[2020-03-02] MEDS: NovoLOG Insulin Flexpen SUBQ SCH ×3 (05:29→19:02)
[2020-03-02] MEDS: Ipratropium Bromide Inhaler INH SCH ×4 (05:30→23:03)
[2020-03-02 06:00] LABS: HEMATOCRIT 29.7 % (37.0-47.0); HEMOGLOBIN 9.6 G/DL (12.0-16.0); MEAN CORPUSCULAR VOLUME 89 FL (80-99); PLATELET COUNT 211 K/UL (150-450); RED BLOOD COUNT 3.35 M/UL (4.20-5.40); RED CELL DISTRIBUTION WIDTH 19.3 % (11.6-14.8)
[2020-03-02 06:18] LABS: WHITE BLOOD COUNT 24.4 K/UL (4.8-10.8)
[2020-03-02 06:19] LABS: ALBUMIN 1.7 G/DL (3.4-5.0); ALBUMIN/GLOBULIN RATIO 0.3 (1.0-2.7); BILIRUBIN,TOTAL 0.5 MG/DL (0.2-1.0); CALCIUM 8.3 MG/DL (8.5-10.1); CREATININE 1.4 MG/DL (0.55-1.30); POTASSIUM 4.5 MMOL/L (3.5-5.1)
--- NOTE | 2020-03-02 07:01 | General Progress Note ---
Subjective ROS Limited/Unobtainable: No Allergies: Coded Allergies: No Known Allergies (Unverified , 07/30/15) Objective Last 24 Hour Vital Signs Date Time Temp Pulse Resp B/P (MAP) Pulse Ox O2 Delivery O2 Flow Rate FiO2 03/02/20 06:00 82 19 147/68 (94) 100 03/02/20 06:00 19 147/68 Endotracheal Tube 60 03/02/20 06:00 19 Endotracheal Tube 60 03/02/20 05:00 87 19 163/76 (105) 99 03/02/20 05:00 19 163/76 Endotracheal Tube 60 03/02/20 05:00 19 Endotracheal Tube 60 03/02/20 04:00 99 03/02/20 04:00 60 03/02/20 04:00 Mechanical Ventilator 03/02/20 04:00 20 163/78 Endotracheal Tube 60 03/02/20 04:00 20 Endotracheal Tube 60 03/02/20 04:00 99 20 163/78 (106) 96 03/02/20 03:49 101 22 60 03/02/20 03:00 16 158/75 Endotracheal Tube 60 03/02/20 03:00 16 Endotracheal Tube 60 03/02/20 03:00 94 16 158/75 (102) 97 03/02/20 02:00 94 14 157/74 (101) 97 03/02/20 02:00 14 157/74 Endotracheal Tube 60 03/02/20 02:00 14 Endotracheal Tube 60 03/02/20 01:00 12 156/73 Endotracheal Tube 60 03/02/20 01:00 12 Endotracheal Tube 60 03/02/20 01:00 94 12 156/73 (100) 97 03/02/20 00:00 60 03/02/20 00:00 94 14 152/71 (98) 97 03/02/20 00:00 94 03/02/20 00:00 14 152/71 Endotracheal Tube 60 03/02/20 00:00 14 Endotracheal Tube 60 03/02/20 00:00 Mechanical Ventilator 03/01/20 23:32 11 156/76 Endotracheal Tube 60 03/01/20 23:04 98 23 60 03/01/20 23:00 11 153/74 Endotracheal Tube 60 03/01/20 23:00 11 03/01/20 23:00 95 0 153/74 (100) 98 03/01/20 22:00 73 0 140/68 (92) 96 03/01/20 22:00 11 140/68 Nasal Cannula 60 03/01/20 22:00 18 Endotracheal Tube 60 03/01/20 21:04 97 155/76 03/01/20 21:00 96 0 149/75 (99) 97 03/01/20 21:00 11 149/75 Endotracheal Tube 60 03/01/20 21:00 18 Endotracheal Tube 60 03/01/20 20:54 18 Endotracheal Tube 60 03/01/20 20:00 Mechanical Ventilator 03/01/20 20:00 102 03/01/20 20:00 100.9 101 0 157/76 (103) 96 03/01/20 20:00 11 157/76 Endotracheal Tube 60 03/01/20 20:00 60 03/01/20 20:00 101 0 157/76 (103) 96 03/01/20 19:51 101 22 60 03/01/20 19:49 100.9 03/01/20 19:00 101.0 96 22 160/75 (103) 97 03/01/20 19:00 22 158/76 Endotracheal Tube 60 03/01/20 19:00 22 Endotracheal Tube 60 03/01/20 18:00 22 155/77 Endotracheal Tube 60 03/01/20 18:00 22 Endotracheal Tube 60 03/01/20 18:00 95 22 157/74 (101) 97 03/01/20 17:00 97 22 164/73 (103) 97 03/01/20 17:00 22 164/73 Endotracheal Tube 60 03/01/20 17:00 22 Endotracheal Tube 60 03/01/20 16:00 60 03/01/20 16:00 Mechanical Ventilator 03/01/20 16:00 98.8 03/01/20 16:00 22 162/76 Endotracheal Tube 60 03/01/20 16:00 22 Endotracheal Tube 60 03/01/20 16:00 95 03/01/20 16:00 95 0 169/79 (109) 97 03/01/20 15:28 96 22 60 03/01/20 15:15 22 167/79 Endotracheal Tube 60 03/01/20 15:00 22 167/79 Endotracheal Tube 60 03/01/20 15:00 22 Endotracheal Tube 60 03/01/20 15:00 94 0 162/80 (107) 96 03/01/20 14:11 101.3 03/01/20 14:00 22 159/73 Endotracheal Tube 60 03/01/20 14:00 22 Endotracheal Tube 60 03/01/20 14:00 93 0 163/78 (106) 96 03/01/20 13:42 162/76 03/01/20 13:00 22 162/76 Endotracheal Tube 60 03/01/20 13:00 22 Endotracheal Tube 60 03/01/20 13:00 101.1 91 0 166/74 (104) 95 03/01/20 12:00 100.0 97 0 148/73 (98) 96 03/01/20 12:00 60 03/01/20 12:00 22 149/70 Endotracheal Tube 60 03/01/20 12:00 22 Endotracheal Tube 60 03/01/20 12:00 Mechanical Ventilator 03/01/20 12:00 84 03/01/20 11:30 86 0 154/70 (98) 95 03/01/20 11:23 94 26 60 03/01/20 11:00 91 20 160/69 (99) 91 03/01/20 11:00 22 154/70 Endotracheal Tube 60 03/01/20 11:00 22 Endotracheal Tube 60 03/01/20 10:00 95 5 165/71 (102) 92 03/01/20 10:00 22 165/71 Endotracheal Tube 60 03/01/20 10:00 22 Endotracheal Tube 60 03/01/20 09:20 22 60 03/01/20 09:20 79 177/86 03/01/20 09:19 79 177/81 03/01/20 09:18 177/81 03/01/20 09:00 22 177/81 Endotracheal Tube 60 03/01/20 09:00 22 Endotracheal Tube 60 03/01/20 09:00 82 9 177/81 (113) 97 03/01/20 08:00 60 03/01/20 08:00 99.3 66 0 144/65 (91) 98 03/01/20 08:00 22 144/65 Endotracheal Tube 60 03/01/20 08:00 22 Endotracheal Tube 60 03/01/20 08:00 Mechanical Ventilator 03/01/20 07:37 86 03/01/20 07:35 86 28 60 Intake and Output 03/01/20 03/02/20 18:59 06:59 Intake Total 1309.47 ml 1565 ml Output Total 445 ml 360 ml Balance 864.47 ml 1205 ml Free Water 150 ml 300 ml IV Total 442.47 ml 485 ml Tube Feeding 717 ml 780 ml Output Urine Total 445 ml 360 ml Laboratory Tests 03/02/20 05:15: White Blood Count 24.4*H, Red Blood Count 3.35L, Hemoglobin 9.6L, Hematocrit 29.7L, Mean Corpuscular Volume 89, Mean Corpuscular Hemoglobin 28.6, Mean Corpuscular Hemoglobin Concent 32.3, Red Cell Distribution Width 19.3H, Platelet Count 211, Mean Platelet Volume 8.2, Neutrophils (%) (Auto) , Lymphocytes (%) (Auto) , Monocytes (%) (Auto) , Eosinophils (%) (Auto) , Basophils (%) (Auto) , Neutrophils % (Manual) [Pending], Lymphocytes % (Manual) [Pending], Platelet Estimate [Pending], Platelet Morphology [Pending], Sodium Level 150H, Potassium Level 4.5, Chloride Level 114H, Carbon Dioxide Level 29, Anion Gap 7, Blood Urea Nitrogen 49H, Creatinine 1.4H, Estimat Glomerular Filtration Rate 46.5, Glucose Level 306H, Calcium Level 8.3L, Total Bilirubin 0.5, Aspartate Amino Transf (AST/SGOT) 74H, Alanine Aminotransferase (ALT/SGPT) 49, Alkaline Phosphatase 666H, Total Protein 6.6, Albumin 1.7L, Globulin 4.9, Albumin/Globulin Ratio 0.3L , Random Vancomycin Level 8.5 Height (Feet): 5 Height (Inches): 1.00 Weight (Pounds): 168 General Appearance: no apparent distress EENT: normal ENT inspection Neck: supple Cardiovascular: normal rate Respiratory/Chest: decreased breath sounds Abdomen: normal bowel sounds, non tender, soft Extremities: non-tender Assessment/Plan Assessment/Plan: Assessment - GIB - resolved off of anticoagulation - Anemia - hypokalemia, DM and Hypernatremia - changed TF to DM formula - COVID pneumonitis, on Steroids - Acute MD - on ASA - Resp failure - malnutrition/feeding tube dependent - declining albumin - partly due to liver disease - fatty liver - hepatitis C with nodular liver, PCR (+) - abnormal LFT - due to COVD, fatty liver, and HCV - HTN - COPD - Lung mass - DM Recommendations - Continue TF - protein powder - Sq heparin - increase free water to correct Na - monitor CBC - follow LFT - PPI --> now BID - Elevate HOB - outpatient HCV eradication - Outpatient colonoscopy once recovered from current illness Pee Chan MD Mar 02, 2020 07:01
--- NOTE | 2020-03-02 07:33 | NUR ---
NURSE NOTES: LATE ENTRY: RECEIVED REPORT FROM ROSY Reynoso PT ON SEDATION DRIP FENTANYL AT 300MG, VERSED AT 5. PUPILS 2MM, SLUGGISH. DEEP SEDATION WILL TAPER OFF. ST ON MONITOR, BP ELEVATED. FEBRILE 101.1 AX. COOLING MEASURES PLACED. TUBE FEED NEPRO AT 65, NO RESIDUALS. ABDOMEN DISTENDED. BOWEL SOUNDS HYPOACTIVE. NO BM. SOFT, BILATERAL PEDAL PULSES INTACT. PITTING EDEMA OF UPPER AND LOWER EXTREMITIES. BILATERAL SOFT WRIST RESTRAINTS IN PLACE. IV ACCESS, ULISES PICC. SKIN- LEFT HAND. AREA OF CONCERN. PT AIRBORNE AND CONTACT ISOLATION. WILL MONITOR PT CLOSELY. SIDE SAILS X3. LOCKED, IN LOW POSITION. WILL CONTINUE TO MONITOR.
[2020-03-02] MEDS ORDERED: Vancomycin 750mg/NS 275ml IVPB ONE ×2 (08:00)
--- NOTE | 2020-03-02 08:00 | NUR ---
NURSE NOTES: LATE ENTRY: RECEIVED CALL FROM ROSY. CALLING ABOUT PT FEVER. INFORMED ON WAY INTO SEE PT. WILL CHECK TO SEE IF CONTINUES TO BE FEVERISH. PT REMAINS ON SEDATION. DISPLAYING GENERALIZED EDEMA. NO PRESSORS BUT PT CONDITION REMAINS GUARDED. INFORMED TO CALL LATER FOR ADDITIONAL UPDATES IF NEEDED.
[2020-03-02] MEDS: Nitroglycerin 2% oint pkt TOPIC SCH (08:21)
[2020-03-02] MEDS: Pantoprazole Inj IVP SCH ×2 (08:21→20:21)
[2020-03-02] MEDS: Metoprolol Tartrate 50mg tab NG SCH ×2 (08:22→20:23)
[2020-03-02] MEDS: Aspirin Baby 81mg NG SCH (08:22)
[2020-03-02] MEDS: Multivitamins W/Minerals 15 ML UDC NG SCH (08:23)
[2020-03-02] MEDS: Heparin 5000 units/ml inj SUBQ SCH ×2 (08:25→20:23)
[2020-03-02] MEDS ORDERED: Solu-MEDROL 40mg Inj IVP SCH (09:00)
--- NOTE | 2020-03-02 09:12 | NUR ---
NURSE HAND-OFF REPORT: Latest Vital Signs: Temperature 100.0 , Pulse 111 , B/P 166 /81 , Respiratory Rate 25 , O2 SAT 100 , Mechanical Ventilator, O2 Flow Rate . Vital Sign Comment: EKG Rhythm: Sinus Tachycardia Rhythm change?: N Notified?: Jay -dr. navarro HERNANDES Response: Latest Pineda Fall Score: 50 Fall Risk: High Risk Safety Measures: Call light Within Reach, Bed Alarm Zone 2, Side Rails Side Rails x3, Bed position Low and Locked. Fall Precautions: Door Sign Report given to Roman GUERRA RN
--- NOTE | 2020-03-02 09:13 | NUR ---
RD ASSESSMENT & RECOMMENDATIONS SEE CARE ACTIVITY FOR COMPLETE ASSESSMENT DAILY ESTIMATED NEEDS: Needs based on Critical care/ 54.9kg adjusted body wt of 75kg 22-30 kcals/kg 3500-8346 total kcals 1.2-2 g protein/kg 66- 109 g total protein 25-30 mL/kg 3787-4860 total fluid mLs NUTRITION DIAGNOSIS: * Altered nutrition related lab values R/T clinical status as evidenced by variable poc BGs (52-325 upon adm, now 200's and 300's), elev WBC, elev K (5.4 -> wnl-> 6.3* -> now wnl), elev LFTs. CURRENT TF:Glucerna 1.2 @75ml/hr x 24 hrs + Prosource 1pkt BID ENTERAL NUTRITION RECOMMENDATIONS: Glucerna 1.2 @ 55ml/hr x 24 hrs + Prosource 1pkt BID to provide 1320ml, 1584kcal, 79g +22g prot, 1063ml free water * LOWER goal rate to 55ml/hr x 24 hrs- meets 100% est kcal/prot needs * Maintain added Prosource BID (11g pro each) to better meet est pro needs * HOB over 30 degrees/ water flush per MD ADDITIONAL RECOMMENDATIONS: * Calibrated bedscale wts-> daily wts for efficacy of TF's * Monitor lytes: critically elev K (6.3-> now wnl ) -> monitor need to change TF back to renal TF * Monitor BGs- now 200's +300's, on steroidal med -> lower TF goal rate not to exceed est needs -> Levemir decreased on 03/01, monitor BGs, need to increase .
--- NOTE | 2020-03-02 09:31 | Critical Care Progress Note ---
Assessment/Plan Assessment/Plan IMPRESSION acute respiratory failure/ now on vent leukocytosis, possibly exacerbated by steroids sepsis ARF toxic met encephalopathy COPD DM poor control cavitary lesion negative AFB groundglass infiltrates NSTEMI severe PCM hypertension left shoulder pain bacteremia MRSA hematuria COVID anemia diabetes s/p respiratory code hypernatremia edema PLAN lasix with caution monitor sodium levels DVT prophylaxis monitor HH antibiotics per ID titrate BP meds vent support- consider wean if oxygenation better monitor acid base NGT and feeds monitor lytes maintain support monitor LOC critical at present maintain sedation medications/laboratory data/nursing notes/ICU care reviewed in detail note reviewed and edited care discussed with RN and RT ICU time spent >40 minutes Critical Care - Subjective Interval Events: reviewed care on feeds lytes improved on steroids ROS Limited/Unobtainable: Yes Condition: critical EKG Rhythm: Sinus Rhythm Residuals: minimal Tube Feeding Tolerated: yes I&O: Intake and Output 03/01/20 03/02/20 19:00 07:00 Intake Total 1659.47 ml 1265 ml Output Total 435 ml 360 ml Balance 1224.47 ml 905 ml Free Water 450 ml IV Total 472.47 ml 485 ml Tube Feeding 737 ml 780 ml Output Urine Total 435 ml 360 ml Critical Care - Objective ET-Tube: 7.5 ET Position: 25 Last 24 Hour Vital Signs Date Time Temp Pulse Resp B/P (MAP) Pulse Ox O2 Delivery O2 Flow Rate FiO2 03/02/20 08:22 92 151/71 03/02/20 08:21 151/71 03/02/20 07:00 19 160/71 Endotracheal Tube 60 03/02/20 07:00 19 Endotracheal Tube 60 03/02/20 07:00 86 19 160/71 (100) 99 03/02/20 06:00 99.9 82 19 147/68 (94) 100 03/02/20 06:00 19 147/68 Endotracheal Tube 60 03/02/20 06:00 19 Endotracheal Tube 60 03/02/20 05:00 87 19 163/76 (105) 99 03/02/20 05:00 19 163/76 Endotracheal Tube 60 03/02/20 05:00 19 Endotracheal Tube 60 03/02/20 04:00 99 03/02/20 04:00 60 03/02/20 04:00 Mechanical Ventilator 03/02/20 04:00 20 163/78 Endotracheal Tube 60 03/02/20 04:00 20 Endotracheal Tube 60 03/02/20 04:00 99 20 163/78 (106) 96 03/02/20 03:49 101 22 60 03/02/20 03:00 16 158/75 Endotracheal Tube 60 03/02/20 03:00 16 Endotracheal Tube 60 03/02/20 03:00 94 16 158/75 (102) 97 03/02/20 02:00 94 14 157/74 (101) 97 03/02/20 02:00 14 157/74 Endotracheal Tube 60 03/02/20 02:00 14 Endotracheal Tube 60 03/02/20 01:00 12 156/73 Endotracheal Tube 60 03/02/20 01:00 12 Endotracheal Tube 60 03/02/20 01:00 94 12 156/73 (100) 97 03/02/20 00:00 60 03/02/20 00:00 99.7 94 14 152/71 (98) 97 03/02/20 00:00 94 03/02/20 00:00 14 152/71 Endotracheal Tube 60 03/02/20 00:00 14 Endotracheal Tube 60 03/02/20 00:00 Mechanical Ventilator 03/01/20 23:32 11 156/76 Endotracheal Tube 60 03/01/20 23:04 98 23 60 03/01/20 23:00 11 153/74 Endotracheal Tube 60 03/01/20 23:00 11 03/01/20 23:00 95 0 153/74 (100) 98 03/01/20 22:00 73 0 140/68 (92) 96 03/01/20 22:00 11 140/68 Nasal Cannula 60 03/01/20 22:00 18 Endotracheal Tube 60 03/01/20 21:04 97 155/76 03/01/20 21:00 96 0 149/75 (99) 97 03/01/20 21:00 11 149/75 Endotracheal Tube 60 03/01/20 21:00 18 Endotracheal Tube 60 03/01/20 20:54 18 Endotracheal Tube 60 03/01/20 20:00 Mechanical Ventilator 03/01/20 20:00 102 03/01/20 20:00 100.9 101 0 157/76 (103) 96 03/01/20 20:00 11 157/76 Endotracheal Tube 60 03/01/20 20:00 60 03/01/20 20:00 101 0 157/76 (103) 96 03/01/20 19:51 101 22 60 03/01/20 19:49 100.9 03/01/20 19:00 101.0 96 22 160/75 (103) 97 03/01/20 19:00 22 158/76 Endotracheal Tube 60 03/01/20 19:00 22 Endotracheal Tube 60 03/01/20 18:00 22 155/77 Endotracheal Tube 60 03/01/20 18:00 22 Endotracheal Tube 60 03/01/20 18:00 95 22 157/74 (101) 97 03/01/20 17:00 97 22 164/73 (103) 97 03/01/20 17:00 22 164/73 Endotracheal Tube 60 03/01/20 17:00 22 Endotracheal Tube 60 03/01/20 16:00 60 03/01/20 16:00 Mechanical Ventilator 03/01/20 16:00 98.8 03/01/20 16:00 22 162/76 Endotracheal Tube 60 03/01/20 16:00 22 Endotracheal Tube 60 03/01/20 16:00 95 03/01/20 16:00 95 0 169/79 (109) 97 03/01/20 15:28 96 22 60 03/01/20 15:15 22 167/79 Endotracheal Tube 60 03/01/20 15:00 22 167/79 Endotracheal Tube 60 03/01/20 15:00 22 Endotracheal Tube 60 03/01/20 15:00 94 0 162/80 (107) 96 03/01/20 14:11 101.3 03/01/20 14:00 22 159/73 Endotracheal Tube 60 03/01/20 14:00 22 Endotracheal Tube 60 03/01/20 14:00 93 0 163/78 (106) 96 03/01/20 13:42 162/76 03/01/20 13:00 22 162/76 Endotracheal Tube 60 03/01/20 13:00 22 Endotracheal Tube 60 03/01/20 13:00 101.1 91 0 166/74 (104) 95 03/01/20 12:00 100.0 97 0 148/73 (98) 96 03/01/20 12:00 60 03/01/20 12:00 22 149/70 Endotracheal Tube 60 03/01/20 12:00 22 Endotracheal Tube 60 03/01/20 12:00 Mechanical Ventilator 03/01/20 12:00 84 03/01/20 11:30 86 0 154/70 (98) 95 03/01/20 11:23 94 26 60 03/01/20 11:00 91 20 160/69 (99) 91 03/01/20 11:00 22 154/70 Endotracheal Tube 60 03/01/20 11:00 22 Endotracheal Tube 60 03/01/20 10:00 95 5 165/71 (102) 92 03/01/20 10:00 22 165/71 Endotracheal Tube 60 03/01/20 10:00 22 Endotracheal Tube 60 Labs: Laboratory Tests 03/02/20 05:15: White Blood Count 24.4*H, Red Blood Count 3.35L, Hemoglobin 9.6L, Hematocrit 29. 7L, Mean Corpuscular Volume 89, Mean Corpuscular Hemoglobin 28.6, Mean Corpuscular Hemoglobin Concent 32.3, Red Cell Distribution Width 19.3H, Platelet Count 211, Mean Platelet Volume 8.2, Neutrophils (%) (Auto) , Lymphocytes (%) (Auto) , Monocytes (%) (Auto) , Eosinophils (%) (Auto) , Basophils (%) (Auto) , Neutrophils % (Manual) [Pending], Lymphocytes % (Manual) [Pending], Platelet Estimate [Pending], Platelet Morphology [Pending], Sodium Level 150H, Potassium Level 4.5, Chloride Level 114H, Carbon Dioxide Level 29, Anion Gap 7, Blood Urea Nitrogen 49H, Creatinine 1.4H, Estimat Glomerular Filtration Rate 46.5, Glucose Level 306H, Calcium Level 8.3L, Total Bilirubin 0.5, Aspartate Amino Transf (AST/SGOT) 74H, Alanine Aminotransferase (ALT/SGPT) 49, Alkaline Phosphatase 666H, Total Protein 6.6, Albumin 1.7L, Globulin 4.9, Albumin/Globulin Ratio 0.3L , Random Vancomycin Level 8.5 Objective: deferred due to COVID Accucheck: 294 Germán Feliz MD Mar 02, 2020 09:31
[2020-03-02] MEDS: Midazolam for drip 50 MG in NS 90 ML IV PRN (10:16)
[2020-03-02] MEDS: fentaNYL 2500mcg/NS 250ml 250 ML IV SCH ×2 (10:18→22:38)
[2020-03-02] MEDS: Levemir Flexpen SUBQ SCH ×2 (10:19→21:05)
--- NOTE | 2020-03-02 10:30 | NUR ---
NURSE NOTES: PT REPOSITIONED AND CLEANED. MEDICATIONS GIVEN. COOLING BLANKET APPLIED TO COOL PT CORE. ICE PACK AND ICE BATH. WILL CONTINUE TO MONITOR PT.
--- NOTE | 2020-03-02 11:30 | NUR ---
NURSE NOTES: PT GIVEN ICE BATH, COLD FLUSH, COOLING MESURES, PT REMAINS FEBRILE.
--- NOTE | 2020-03-02 11:32 | Infectious Diseases Prog Note ---
Assessment/Plan Assessment/Plan antibiotics : vancomycin iv, remdesivir A 1. MRSA cavitary pneumonia sputum AFB negative x 3 2. MRSA sepsis r/o endocarditis 3. diabetes mellitus 4. hypertension 5. COPD 6. respiratory failure 7. aortic stenosis 8. COVID 19 pneumonia on 70 percent FiO2,saturation 99 % s/p ivermectin [id number] s/p remdesivir 9, leucocytosis likely secondary to steroids improving P 1. continue iv vancomycin 12 more days 2. start decadron 3. will follow up cultures 4. continue isolation Subjective ROS Limited/Unobtainable: Yes Allergies: Coded Allergies: No Known Allergies (Unverified , 07/30/15) Objective Last 24 Hour Vital Signs Date Time Temp Pulse Resp B/P (MAP) Pulse Ox O2 Delivery O2 Flow Rate FiO2 03/02/20 10:18 23 180/100 Mechanical Ventilator 03/02/20 10:16 23 03/02/20 08:22 92 151/71 03/02/20 08:21 151/71 03/02/20 07:00 19 160/71 Endotracheal Tube 60 03/02/20 07:00 19 Endotracheal Tube 60 03/02/20 07:00 86 19 160/71 (100) 99 03/02/20 06:00 99.9 82 19 147/68 (94) 100 03/02/20 06:00 19 147/68 Endotracheal Tube 60 03/02/20 06:00 19 Endotracheal Tube 60 03/02/20 05:00 87 19 163/76 (105) 99 03/02/20 05:00 19 163/76 Endotracheal Tube 60 03/02/20 05:00 19 Endotracheal Tube 60 03/02/20 04:00 99 03/02/20 04:00 60 03/02/20 04:00 Mechanical Ventilator 03/02/20 04:00 20 163/78 Endotracheal Tube 60 03/02/20 04:00 20 Endotracheal Tube 60 03/02/20 04:00 99 20 163/78 (106) 96 03/02/20 03:49 101 22 60 03/02/20 03:00 16 158/75 Endotracheal Tube 60 03/02/20 03:00 16 Endotracheal Tube 60 03/02/20 03:00 94 16 158/75 (102) 97 03/02/20 02:00 94 14 157/74 (101) 97 03/02/20 02:00 14 157/74 Endotracheal Tube 60 03/02/20 02:00 14 Endotracheal Tube 60 03/02/20 01:00 12 156/73 Endotracheal Tube 60 03/02/20 01:00 12 Endotracheal Tube 60 03/02/20 01:00 94 12 156/73 (100) 97 03/02/20 00:00 60 03/02/20 00:00 99.7 94 14 152/71 (98) 97 03/02/20 00:00 94 03/02/20 00:00 14 152/71 Endotracheal Tube 60 03/02/20 00:00 14 Endotracheal Tube 60 03/02/20 00:00 Mechanical Ventilator 03/01/20 23:32 11 156/76 Endotracheal Tube 60 03/01/20 23:04 98 23 60 03/01/20 23:00 11 153/74 Endotracheal Tube 60 03/01/20 23:00 11 03/01/20 23:00 95 0 153/74 (100) 98 03/01/20 22:00 73 0 140/68 (92) 96 03/01/20 22:00 11 140/68 Nasal Cannula 60 03/01/20 22:00 18 Endotracheal Tube 60 03/01/20 21:04 97 155/76 03/01/20 21:00 96 0 149/75 (99) 97 03/01/20 21:00 11 149/75 Endotracheal Tube 60 03/01/20 21:00 18 Endotracheal Tube 60 03/01/20 20:54 18 Endotracheal Tube 60 03/01/20 20:00 Mechanical Ventilator 03/01/20 20:00 102 03/01/20 20:00 100.9 101 0 157/76 (103) 96 03/01/20 20:00 11 157/76 Endotracheal Tube 60 03/01/20 20:00 60 03/01/20 20:00 101 0 157/76 (103) 96 03/01/20 19:51 101 22 60 03/01/20 19:49 100.9 03/01/20 19:00 101.0 96 22 160/75 (103) 97 03/01/20 19:00 22 158/76 Endotracheal Tube 60 03/01/20 19:00 22 Endotracheal Tube 60 03/01/20 18:00 22 155/77 Endotracheal Tube 60 03/01/20 18:00 22 Endotracheal Tube 60 03/01/20 18:00 95 22 157/74 (101) 97 03/01/20 17:00 97 22 164/73 (103) 97 03/01/20 17:00 22 164/73 Endotracheal Tube 60 03/01/20 17:00 22 Endotracheal Tube 60 03/01/20 16:00 60 03/01/20 16:00 Mechanical Ventilator 03/01/20 16:00 98.8 03/01/20 16:00 22 162/76 Endotracheal Tube 60 03/01/20 16:00 22 Endotracheal Tube 60 03/01/20 16:00 95 03/01/20 16:00 95 0 169/79 (109) 97 03/01/20 15:28 96 22 60 03/01/20 15:15 22 167/79 Endotracheal Tube 60 03/01/20 15:00 22 167/79 Endotracheal Tube 60 03/01/20 15:00 22 Endotracheal Tube 60 03/01/20 15:00 94 0 162/80 (107) 96 03/01/20 14:11 101.3 03/01/20 14:00 22 159/73 Endotracheal Tube 60 03/01/20 14:00 22 Endotracheal Tube 60 03/01/20 14:00 93 0 163/78 (106) 96 03/01/20 13:42 162/76 03/01/20 13:00 22 162/76 Endotracheal Tube 60 03/01/20 13:00 22 Endotracheal Tube 60 03/01/20 13:00 101.1 91 0 166/74 (104) 95 03/01/20 12:00 100.0 97 0 148/73 (98) 96 03/01/20 12:00 60 03/01/20 12:00 22 149/70 Endotracheal Tube 60 03/01/20 12:00 22 Endotracheal Tube 60 03/01/20 12:00 Mechanical Ventilator 03/01/20 12:00 84 Height (Feet): 5 Height (Inches): 1.00 Weight (Pounds): 168 Laboratory Tests Test 03/02/20 05:15 03/02/20 08:01 White Blood Count 24.4 K/UL (4.8-10.8) *H Red Blood Count 3.35 M/UL (4.20-5.40) L Hemoglobin 9.6 G/DL (12.0-16.0) L Hematocrit 29.7 % (37.0-47.0) L Mean Corpuscular Volume 89 FL (80-99) Mean Corpuscular Hemoglobin 28.6 PG (27.0-31.0) Mean Corpuscular Hemoglobin Concent 32.3 G/DL (32.0-36.0) Red Cell Distribution Width 19.3 % (11.6-14.8) H Platelet Count 211 K/UL (150-450) Mean Platelet Volume 8.2 FL (6.5-10.1) Neutrophils (%) (Auto) % (45.0-75.0) Lymphocytes (%) (Auto) % (20.0-45.0) Monocytes (%) (Auto) % (1.0-10.0) Eosinophils (%) (Auto) % (0.0-3.0) Basophils (%) (Auto) % (0.0-2.0) Differential Total Cells Counted 100 Neutrophils % (Manual) 94 % (45-75) H Lymphocytes % (Manual) 1 % (20-45) L Monocytes % (Manual) 5 % (1-10) Eosinophils % (Manual) 0 % (0-3) Basophils % (Manual) 0 % (0-2) Band Neutrophils 0 % (0-8) Platelet Estimate Adequate Platelet Morphology Normal Hypochromasia 1+ Anisocytosis 2+ Sodium Level 150 MMOL/L (136-145) H Potassium Level 4.5 MMOL/L (3.5-5.1) Chloride Level 114 MMOL/L (98-107) H Carbon Dioxide Level 29 MMOL/L (21-32) Anion Gap 7 mmol/L (5-15) Blood Urea Nitrogen 49 mg/dL (7-18) H Creatinine 1.4 MG/DL (0.55-1.30) H Estimat Glomerular Filtration Rate 46.5 mL/min (>60) Glucose Level 306 MG/DL (74-106) H Calcium Level 8.3 MG/DL (8.5-10.1) L Total Bilirubin 0.5 MG/DL (0.2-1.0) Aspartate Amino Transf (AST/SGOT) 74 U/L (15-37) H Alanine Aminotransferase (ALT/SGPT) 49 U/L (12-78) Alkaline Phosphatase 666 U/L (46-116) H Total Protein 6.6 G/DL (6.4-8.2) Albumin 1.7 G/DL (3.4-5.0) L Globulin 4.9 g/dL Albumin/Globulin Ratio 0.3 (1.0-2.7) L Random Vancomycin Level 8.5 ug/mL Arterial Blood pH 7.250 (7.350-7.450) Arterial Blood Partial Pressure CO2 65.9 mmHg (35.0-45.0) *H Arterial Blood Partial Pressure O2 59.1 mmHg (75.0-100.0) L Arterial Blood HCO3 28.3 mmol/L (22.0-26.0) H Arterial Blood Oxygen Saturation 88.4 % (95-100) *L Arterial Blood Base Excess 0 (-2-2) Bryan Test Positive Current Medications Medications (Trade) Dose Ordered Sig/Ivana Route PRN Reason Start Time Stop Time Status Last Admin Dose Admin Acetaminophen (Tylenol) 650 mg EVERY 6 HOURS PRN NG Mild Pain (Pain Scale 1-3) 02/27/20 07:45 03/28/20 07:44 03/01/20 19:19 Aspirin (ASA) 81 mg DAILY NG 02/27/20 09:00 03/30/20 08:59 03/02/20 08:22 Chlorhexidine Gluconate (Divina-Hex 2%) 1 applic DAILY@2000 TOPIC 02/26/20 20:00 05/26/20 19:59 03/01/20 21:03 Clonidine HCl (Catapres Tab) 0.1 mg Q4H PRN ORAL SBP > 150mmHg 02/06/20 07:00 05/06/20 06:59 03/01/20 13:42 Dextrose (Dextrose 50%) 25 ml Q30M PRN IV Hypoglycemia 01/28/20 22:45 04/27/20 22:44 Dextrose (Dextrose 50%) 50 ml Q30M PRN IV Hypoglycemia 01/28/20 22:45 04/27/20 22:44 Epoetin Haseeb (Epoetin Haseeb-EPBX(NON ESRD)) 8,000 unit WED-WED-WED SUBQ 02/05/20 21:00 05/05/20 20:59 03/01/20 21:06 Fentanyl Citrate 250 ml @ 1 mls/hr Q24H IV 02/29/20 15:00 03/06/20 14:59 03/02/20 10:18 Furosemide (Lasix) 20 mg EVERY 12 HOURS IV 03/01/20 21:00 03/31/20 20:59 03/02/20 08:20 Guaifenesin/ Dextromethorphan (Robitussin DM Syrup) 15 ml Q4H PRN ORAL For Cough 02/12/20 16:53 05/12/20 16:52 02/19/20 22:21 Heparin Sodium (Porcine) (Heparin 5000 units/ml) 5,000 units EVERY 12 HOURS SUBQ 02/28/20 21:00 04/13/20 20:59 03/02/20 08:25 Hydralazine HCl (Apresoline) 25 mg Q6H PRN ORAL SBP above 150 02/27/20 23:15 05/27/20 23:14 02/29/20 13:54 Insulin Aspart (NovoLOG) Q6HR SUBQ 01/29/20 00:00 04/28/20 00:00 03/02/20 05:29 Insulin Detemir (Levemir) 5 units EVERY 12 HOURS SUBQ 03/01/20 09:00 05/30/20 08:59 03/02/20 10:19 Ipratropium [place] (Atrovent Inh) 1 puffs Q4HRT INH 02/28/20 15:00 03/19/20 17:59 03/02/20 05:30 Lidocaine (Lidoderm 5% PATCH) 1 patch DAILY TDERMAL 02/11/20 09:30 05/11/20 09:29 03/02/20 08:23 Methocarbamol (Robaxin) 500 mg Q8H PRN ORAL muscle spasm 02/11/20 09:30 03/12/20 09:29 02/21/20 05:13 Metoprolol Tartrate (Lopressor) 50 mg Q12HR NG 03/01/20 21:00 05/04/20 20:59 03/02/20 08:22 Midazolam HCl 50 mg/Sodium Chloride 100 ml @ 0 mls/hr Q24H PRN IV SEDATION 02/29/20 07:30 03/06/20 14:59 03/02/20 10:16 Morphine Sulfate (Morphine Sulfate) 2 mg Q2H PRN IVP For Pain 4-10 02/24/20 15:00 03/06/20 14:59 02/29/20 05:06 Multivitamins (Multivitamins W/ Minerals 15ml Liquid) 15 ml DAILY NG 02/27/20 09:00 03/28/20 08:59 03/02/20 08:23 Nitroglycerin (Nitro-Bid) 1 inch DAILY TOPIC 02/29/20 10:00 03/30/20 09:59 03/02/20 08:21 Pantoprazole (Protonix) 40 mg EVERY 12 HOURS IVP 02/25/20 10:00 03/24/20 08:59 03/02/20 08:21 Sorbitol (sorbitoL) 30 ml Q8H PRN NG Constipation 02/28/20 16:15 03/29/20 16:14 02/28/20 17:08 Vancomycin HCl ([facility] pharmacy to dose) 1 ea DAILY PRN MISC Per rx protocol 02/13/20 11:30 03/14/20 11:29 Messi Lopez MD Mar 02, 2020 11:32
--- NOTE | 2020-03-02 16:16 | NUR ---
NURSE NOTES: LATE ENTRY: PT SEDATION DRIP FENTANYL AT 200MG. PUPILS 3MM, SLUGGISH. PT OPENS EYES. ST ON MONITOR, BP ELEVATED. FEBRILE 100 AX. COOLING MEASURES PLACED. TUBE FEED NEPRO AT 65, HIGH RESIDUALS. ABDOMEN DISTENDED. NO BM. SOFT, BILATERAL PEDAL PULSES INTACT. PITTING EDEMA OF UPPER AND LOWER EXTREMITIES. BILATERAL SOFT WRIST RESTRAINTS IN PLACE. IV ACCESS, ULISES PICC. CAP REFILL <3SEC. PT AIRBORNE AND CONTACT ISOLATION. WILL MONITOR PT CLOSELY. SIDE SAILS X3. LOCKED, IN LOW POSITION. WILL CONTINUE TO MONITOR.
--- NOTE | 2020-03-02 16:29 | Diagnostic Imaging Report ---
EXAM: XR Chest, 1 View CLINICAL HISTORY: F/U TECHNIQUE: Frontal view of the chest. COMPARISON: Chest radiograph on 02/24/2020 FINDINGS: Hardware: Endotracheal tube terminates in the region of the mid thoracic trachea, approximately 3.6 cm above the collins. Enteric tube courses past the diaphragm and out of the [id number]. Right-sided PICC line terminates in the region of the SVC. Lungs/pleura: Patchy opacities/consolidation throughout left greater than right lungs, slightly increased compared to prior exam. Cavitation is again noted in the right upper lobe. No pleural effusion or pneumothorax. Heart/mediastinum: Stable enlargement of the cardiac silhouette. Soft tissues: Unremarkable. Bones: No acute fracture. Upper abdomen: Normal. IMPRESSION: 1. Endotracheal tube terminates in the region of the mid thoracic trachea, approximately 3.6 cm above the collins. Enteric tube courses past the diaphragm and out of the [id number]. Right-sided PICC line terminates in the region of the SVC. 2. Patchy opacities/consolidation throughout left greater than right lungs, slightly increased compared to prior exam. Cavitation is again noted in the right upper lobe.
[2020-03-02] MEDS: HydrALAZINE 25mg tab ORAL PRN (19:00)
[2020-03-02] MEDS: Acetaminophen 650mg/20.3ml NG PRN (19:01)
[2020-03-02] MEDS: Dyna-Hex 2% Top Sol 2oz TOPIC SCH (19:53)
--- NOTE | 2020-03-02 20:00 | NUR ---
NURSE NOTES: Received report from JO-ANN Badillo. Pt is sedated on the bed and RASS score -2. Pt has ETT and orally intubated and Vent dependent and setting with AC:22, T: 550, PC: 45, P:8, FiO2 80% and SaO2 100% noted. Given suction and oral care. Checked BT: 99.9F by axillary. Keep cooling measure. BP is 173/91mmHg. Prn BP medication given by previous nurse. Pt has OGT and in placed. but noted 120cc residual and held OGT feeding at this time. Pt has Rt. upper arm PICC line and dressing is clean and dry. on running with Fentanyl drip @ 200mcg/hr with RASS score -2. And held Versed drip 2t this time. Bilateral soft wrist restraint d/c'd by previous nurse. On P-200 mattress for wound management. changed position. Dressing is clean and dry on Lt hand area. Pt has Flores cath and patent and drainage well. Placed fall precaution. On proper isolation for COVID-19. Will continue to care plan.
--- NOTE | 2020-03-02 22:00 | NUR ---
NURSE NOTES: SaO2 100% with current Vent setting. Given suction and oral care. Held OGT feeding. Still noted residual 100cc. Noted good urine output via Flores cath. Keep cooling measure. changed position. On running with Fentanyl drip @ 200mcg/min with RASS score -2. Will continue to monitor any change of condition.
--- NOTE | 2020-03-02 23:22 | NUR ---
NURSE NOTES: Noted BP 190/92mmHg. Given Catapres 0.1mg prn medication via OGT. Will continue to monitor any change of condition.
[2020-03-03] VITALS (54 sets, daily range): BP systolic 121–219; BP diastolic 68–163
--- NOTE | 2020-03-03 | NUR ---
NURSE NOTES: Pt is resting on the bed but Pt trying to reach ETT and OGT. Given verbal cueing but she didn't understand. Get order and applied bilateral soft restraint. checked comfort and circulation. Noted bilateral hand and generalized swelling but swelling is not related with restraint. on manager corporate strategy with ST. SaO2 100% with current Vent setting. Still noted residual. Held OGT feeding. Noted BT 99.7F. Keep cooling measure. Given suction and oral care. Changed position. will continue to monitor any change of condition.
[2020-03-03] MEDS: NovoLOG Insulin Flexpen SUBQ SCH ×4 (00:05→18:15)
--- NOTE | 2020-03-03 02:00 | NUR ---
NURSE NOTES: Pt is resting on the bed and Pt is agitated and RASS +1. Increase Fentanyl drip @ 210mcg/hr. Suction and oral care was done. Will continue to monitor any change of condition.
[2020-03-03] MEDS: HydrALAZINE 25mg tab ORAL PRN (02:07)
[2020-03-03] MEDS: Ipratropium Bromide Inhaler INH SCH ×6 (03:00→23:09)
[2020-03-03] MEDS: Acetaminophen 650mg/20.3ml NG PRN (03:06)
--- NOTE | 2020-03-03 03:30 | NUR ---
NURSE NOTES: Pt is sedate on the bed and RASS -2. Still noted BP 215/103mmHg and HR: 130-140's with ST. Checked BT: 100.5F. On cooling blanket. On running with Fentanyl drip @ 240mcg/hr. Left message to Dr. Trinidad and awaiting call back.
--- NOTE | 2020-03-03 04:00 | NUR ---
NURSE NOTES: Morning care was done. Cleaned Pt and applied lotion and cream. Held OGT feeding at this time. Noted good urine put via Flores cath. Provided oral care and suction. On running with Fentanyl drip @240mcg/hr. On digital commentator with ST. SaO2 99-100% with current Vent setting. Noted BT: 100.8F. Keep cooling measure. Still noted swelling on whole body. Placed fall precaution. will continue to monitor any change of condition.
--- NOTE | 2020-03-03 05:00 | NUR ---
NURSE NOTES: noted residual 40cc. Resume tube feeding with Glucerna 1.2 @ 30cc/hr. Will continue to monitor.
[2020-03-03] MEDS ORDERED: dilTIAZem HCl 25mg/5ml Inj IVP SCH (06:15)
--- NOTE | 2020-03-03 06:18 | NUR ---
NURSE NOTES: Pt is sedated on the bed. BP is still over the 200. HT 120-130's with ST. Left message to Dr. Trinidad again and get call back from Dr. oliva who is covering for Dr. Trinidad and new order received. Carried out.
--- NOTE | 2020-03-03 06:38 | NUR ---
NURSE NOTES: Given cardizem 10mg IVP once as ordered. Bp noted 167/68mmHg and HR: 120's with ST and SaO2 99% with current Vent setting. Will continue to monitor any change of condition.
--- NOTE | 2020-03-03 06:53 | NUR ---
NURSE NOTES: Dr. Ohara visited and assessed Pt. Updated Pt's condition. new order received. carried out.
--- NOTE | 2020-03-03 06:57 | Hematology/Onc Progress Note ---
Assessment/Plan Assessment/Plan ASSESSMENT/RECS #. 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 --> Currently, no evidence of malignancy. --> Continue to closely monitor and also for improvement. --> per Dr. Galeana the patient may be a candidate for right video-assisted thoracoscopic surgery with a biopsy. However, the patient at the present time does not want to proceed with surgery. #. Leukocytosis with COVID19++ and Asthma exacerbation. --> intubated --> wbc 18-->17--.31-_.23-->24 --> on methylprednisone/remdimsivir --> ABX vanc # Anemia likely of chronic disease --> transfuse as needed --> on epogen --> hgb 8.2-->6.9-->10.2-->8.7->9.6 --> 1 unit prbc 02/26 --> ailyn Pérez and will change lovenox to heparin # Gastritis. # Constipation. # Cavitary pneumonia with MRSA # Staph aureus (MRSA) sepsis # diabetes mellitus # hypertension # COPD # renal failure # aortic stenosis # Hypercapnic/ hypoxic respiratory failure on vent # Dvt ppx heparin sq Appreciate consultation and ailyn Rn Subjective HEENT: Denies: no symptoms, eye pain, blurred vision, tearing, double vision, ear pain, ear discharge, nose pain, nose congestion, throat pain, throat swelling, mouth pain, mouth swelling, other Allergies: Coded Allergies: No Known Allergies (Unverified , 07/30/15) All Systems: reviewed and negative except above Subjective 02/25 agitated, restless, on mech vent, labs noted, hgb better 02/26 icu, on vent, hgb 6.9, to get 1 unit prbc today, no bleeding 02/27 icu, on restraints, hgb has improved, no bleeding 02/28 icu, wbc remains elevated, versed given this am for agitation and high bp 03/01 icu, ailyn rn, wbc 23, hgb 9.1, on abx, no bleeding, meds reviewed 03/03 icu, is on vent, labs reviewed, holding ogt, wbc 24, hgb 9.6 Objective Objective Current Medications Medications (Trade) Dose Ordered Sig/Ivana Route PRN Reason Start Time Stop Time Status Last Admin Dose Admin Acetaminophen (Tylenol) 650 mg EVERY 6 HOURS PRN NG Mild Pain (Pain Scale 1-3) 02/27/20 07:45 03/28/20 07:44 03/03/20 03:06 Aspirin (ASA) 81 mg DAILY NG 02/27/20 09:00 03/30/20 08:59 03/02/20 08:22 Chlorhexidine Gluconate (Divina-Hex 2%) 1 applic DAILY@2000 TOPIC 02/26/20 20:00 05/26/20 19:59 03/02/20 19:53 Clonidine HCl (Catapres Tab) 0.1 mg Q4H PRN ORAL SBP > 150mmHg 02/06/20 07:00 05/06/20 06:59 03/03/20 06:00 Dexamethasone Sodium Phosphate (Decadron 4mg/ml vial) 6 mg Q24H IVP 03/02/20 12:00 03/11/20 12:01 03/02/20 13:56 Dextrose (Dextrose 50%) 25 ml Q30M PRN IV Hypoglycemia 01/28/20 22:45 04/27/20 22:44 Dextrose (Dextrose 50%) 50 ml Q30M PRN IV Hypoglycemia 01/28/20 22:45 04/27/20 22:44 Diltiazem HCl (Cardizem) 10 mg ONCE IVP 03/03/20 06:15 03/03/20 07:30 03/03/20 06:31 Epoetin Haseeb (Epoetin Haseeb-EPBX(NON ESRD)) 8,000 unit WED-WED-WED SUBQ 02/05/20 21:00 05/05/20 20:59 03/01/20 21:06 Fentanyl Citrate 250 ml @ 1 mls/hr Q24H IV 02/29/20 15:00 03/06/20 14:59 03/02/20 22:38 Furosemide (Lasix) 20 mg EVERY 12 HOURS IV 03/01/20 21:00 03/31/20 20:59 03/02/20 20:22 Guaifenesin/ Dextromethorphan (Robitussin DM Syrup) 15 ml Q4H PRN ORAL For Cough 02/12/20 16:53 05/12/20 16:52 02/19/20 22:21 Heparin Sodium (Porcine) (Heparin 5000 units/ml) 5,000 units EVERY 12 HOURS SUBQ 02/28/20 21:00 04/13/20 20:59 03/02/20 20:23 Hydralazine HCl (Apresoline) 25 mg Q6H PRN ORAL SBP above 150 02/27/20 23:15 05/27/20 23:14 03/03/20 02:07 Insulin Aspart (NovoLOG) Q6HR SUBQ 01/29/20 00:00 04/28/20 00:00 03/03/20 05:59 Insulin Detemir (Levemir) 5 units EVERY 12 HOURS SUBQ 03/01/20 09:00 05/30/20 08:59 03/02/20 21:05 Ipratropium Gray (Atrovent Inh) 1 puffs Q4HRT INH 02/28/20 15:00 03/19/20 17:59 03/02/20 23:03 Lidocaine (Lidoderm 5% PATCH) 1 patch DAILY TDERMAL 02/11/20 09:30 05/11/20 09:29 03/02/20 08:23 Methocarbamol (Robaxin) 500 mg Q8H PRN ORAL muscle spasm 02/11/20 09:30 03/12/20 09:29 02/21/20 05:13 Metoprolol Tartrate (Lopressor) 50 mg Q12HR NG 03/01/20 21:00 05/04/20 20:59 03/02/20 20:23 Midazolam HCl 50 mg/Sodium Chloride 100 ml @ 0 mls/hr Q24H PRN IV SEDATION 02/29/20 07:30 03/06/20 14:59 03/02/20 10:16 Morphine Sulfate (Morphine Sulfate) 2 mg Q2H PRN IVP For Pain 4-10 02/24/20 15:00 03/06/20 14:59 02/29/20 05:06 Multivitamins (Multivitamins W/ Minerals 15ml Liquid) 15 ml DAILY NG 02/27/20 09:00 03/28/20 08:59 03/02/20 08:23 Nitroglycerin (Nitro-Bid) 1 inch DAILY TOPIC 02/29/20 10:00 1/2/21 09:59 03/02/20 08:21 Pantoprazole (Protonix) 40 mg EVERY 12 HOURS IVP 02/25/20 10:00 03/24/20 08:59 03/02/20 20:21 Sorbitol (sorbitoL) 30 ml Q8H PRN NG Constipation 02/28/20 16:15 03/29/20 16:14 02/28/20 17:08 Vancomycin HCl (Vanco pharmacy to dose) 1 ea DAILY PRN MISC Per rx protocol 02/13/20 11:30 03/14/20 11:29 Last 24 Hour Vital Signs Date Time Temp Pulse Resp B/P (MAP) Pulse Ox O2 Delivery O2 Flow Rate FiO2 03/03/20 06:31 124 192/88 03/03/20 06:00 204/101 03/03/20 05:30 126 39 204/101 (135) 99 03/03/20 05:00 36 205/107 Mechanical Ventilator 80 03/03/20 05:00 130 36 205/107 (139) 100 03/03/20 04:30 127 24 207/95 (132) 100 03/03/20 04:00 132 03/03/20 04:00 100.8 133 29 202/103 (136) 100 03/03/20 04:00 Mechanical Ventilator 03/03/20 04:00 80 03/03/20 04:00 29 202/103 Mechanical Ventilator 80 03/03/20 03:30 136 37 219/100 (139) 100 03/03/20 03:24 142 36 60 03/03/20 03:00 100.2 139 31 207/99 (135) 100 03/03/20 03:00 31 207/99 Mechanical Ventilator 80 03/03/20 02:45 134 36 180/104 (129) 100 03/03/20 02:45 36 180/104 Mechanical Ventilator 80 03/03/20 02:30 120 21 213/102 (139) 100 03/03/20 02:30 21 213/102 Mechanical Ventilator 80 03/03/20 02:15 24 209/95 Mechanical Ventilator 80 03/03/20 02:07 195/90 03/03/20 02:00 24 209/95 Mechanical Ventilator 80 03/03/20 02:00 113 27 195/90 (125) 100 03/03/20 01:30 111 25 195/97 (129) 100 03/03/20 01:00 24 195/92 Mechanical Ventilator 80 03/03/20 01:00 109 24 195/92 (126) 100 03/03/20 00:30 107 24 189/90 (123) 100 03/03/20 00:00 107 03/03/20 00:00 80 03/03/20 00:00 99.7 106 24 187/89 (121) 100 03/03/20 00:00 24 187/89 Mechanical Ventilator 80 03/03/20 00:00 Mechanical Ventilator 03/02/20 23:30 107 22 190/92 (124) 100 03/02/20 23:22 190/92 03/02/20 23:04 107 22 100 Mechanical Ventilator 80 108 22 03/02/20 23:00 107 24 185/101 (129) 100 03/02/20 23:00 24 185/101 Mechanical Ventilator 80 03/02/20 22:38 22 170/91 Mechanical Ventilator 80 03/02/20 22:30 94 22 170/91 (117) 100 03/02/20 22:00 22 138/70 Mechanical Ventilator 80 03/02/20 22:00 94 22 138/70 (92) 100 03/02/20 21:30 96 22 137/68 (91) 100 03/02/20 21:00 103 22 145/69 (94) 100 03/02/20 21:00 22 137/68 Mechanical Ventilator 80 03/02/20 20:30 110 22 165/79 (107) 100 03/02/20 20:23 111 166/81 03/02/20 20:00 116 03/02/20 20:00 80 03/02/20 20:00 27 173/91 Mechanical Ventilator 80 03/02/20 20:00 Mechanical Ventilator 03/02/20 20:00 99.9 120 27 173/91 (118) 100 03/02/20 19:45 118 25 176/84 (114) 100 03/02/20 19:30 117 24 173/95 (121) 100 03/02/20 19:15 117 22 156/76 (102) 100 03/02/20 19:13 124 24 100 Mechanical Ventilator 80 124 26 03/02/20 19:00 24 193/89 Mechanical Ventilator 80 03/02/20 19:00 177/112 03/02/20 19:00 128 26 193/89 (123) 100 03/02/20 18:45 126 24 191/96 (127) 100 03/02/20 18:30 125 26 194/94 (127) 99 03/02/20 18:25 125 26 187/105 (132) 100 03/02/20 18:20 125 27 203/105 (137) 100 03/02/20 18:17 124 26 204/99 (134) 100 03/02/20 18:12 123 27 182/84 (116) 100 03/02/20 18:00 100.0 126 26 100 03/02/20 17:15 112 28 100 03/02/20 17:00 24 200/113 Mechanical Ventilator 03/02/20 17:00 100 24 172/91 (118) 100 03/02/20 16:45 98 23 100 03/02/20 16:30 112 24 163/78 (106) 100 03/02/20 16:15 111 24 163/68 (99) 100 03/02/20 16:00 99.5 110 26 189/106 (133) 100 03/02/20 16:00 25 189/106 Mechanical Ventilator 100 03/02/20 16:00 80 03/02/20 16:00 112 03/02/20 16:00 Mechanical Ventilator 03/02/20 15:45 105 23 100 03/02/20 15:45 115 26 99 Mechanical Ventilator 80 110 25 03/02/20 15:30 100 25 160/78 (105) 100 03/02/20 15:29 99 23 154/79 (104) 100 03/02/20 15:15 100.8 100 23 100 03/02/20 15:00 100 23 144/70 (94) 100 03/02/20 15:00 22 154/79 Mechanical Ventilator 100 03/02/20 14:00 105 7 152/77 (102) 100 03/02/20 14:00 19 146/70 Mechanical Ventilator 100 03/02/20 13:30 107 20 134/88 (103) 100 03/02/20 13:10 99 14 152/77 (102) 79 03/02/20 13:00 18 152/77 Mechanical Ventilator 89 03/02/20 13:00 99 16 148/76 (100) 97 03/02/20 12:30 79 23 144/65 (91) 95 03/02/20 12:29 78 23 141/65 (90) 95 03/02/20 12:00 80 03/02/20 12:00 101.1 89 22 151/71 (97) 98 03/02/20 12:00 21 141/65 Mechanical Ventilator 97 03/02/20 12:00 77 03/02/20 12:00 Mechanical Ventilator 03/02/20 11:57 80 03/02/20 11:38 96 25 60 03/02/20 11:30 91 2 155/86 (109) 100 03/02/20 11:00 96 23 140/65 (90) 100 03/02/20 11:00 21 155/86 Mechanical Ventilator 98 03/02/20 10:30 100 24 157/77 (103) 100 03/02/20 10:18 23 180/100 Mechanical Ventilator 03/02/20 10:16 23 03/02/20 10:10 108 26 164/83 (110) 100 03/02/20 10:00 80 03/02/20 10:00 25 164/83 Mechanical Ventilator 100 03/02/20 10:00 100.9 118 27 186/92 (123) 03/02/20 09:42 118 26 206/86 (126) 98 03/02/20 09:35 113 26 195/82 (119) 98 03/02/20 09:00 90 22 164/68 (100) 100 03/02/20 09:00 26 195/82 Mechanical Ventilator 99 03/02/20 08:30 93 23 171/75 (107) 100 03/02/20 08:22 92 151/71 03/02/20 08:21 151/71 03/02/20 08:00 60 03/02/20 08:00 89 03/02/20 08:00 22 171/75 Mechanical Ventilator 92 03/02/20 08:00 Mechanical Ventilator 03/02/20 08:00 101.1 89 20 151/71 (97) 99 03/02/20 07:26 89 24 60 03/02/20 07:00 19 160/71 Endotracheal Tube 60 03/02/20 07:00 19 Endotracheal Tube 60 03/02/20 07:00 86 19 160/71 (100) 99 03/02/20 06:00 99.9 82 19 147/68 (94) 100 03/02/20 06:00 19 147/68 Endotracheal Tube 60 03/02/20 06:00 19 Endotracheal Tube 60 03/02/20 05:00 87 19 163/76 (105) 99 03/02/20 05:00 19 163/76 Endotracheal Tube 60 03/02/20 05:00 19 Endotracheal Tube 60 03/02/20 04:00 99 03/02/20 04:00 60 03/02/20 04:00 Mechanical Ventilator 03/02/20 04:00 20 163/78 Endotracheal Tube 60 03/02/20 04:00 20 Endotracheal Tube 60 03/02/20 04:00 99 20 163/78 (106) 96 03/02/20 03:49 101 22 60 03/02/20 03:00 16 158/75 Endotracheal Tube 60 03/02/20 03:00 16 Endotracheal Tube 60 03/02/20 03:00 94 16 158/75 (102) 97 03/02/20 02:00 94 14 157/74 (101) 97 03/02/20 02:00 14 157/74 Endotracheal Tube 60 03/02/20 02:00 14 Endotracheal Tube 60 03/02/20 01:00 12 156/73 Endotracheal Tube 60 03/02/20 01:00 12 Endotracheal Tube 60 03/02/20 01:00 94 12 156/73 (100) 97 03/02/20 00:00 60 03/02/20 00:00 99.7 94 14 152/71 (98) 97 03/02/20 00:00 94 03/02/20 00:00 14 152/71 Endotracheal Tube 60 03/02/20 00:00 14 Endotracheal Tube 60 03/02/20 00:00 Mechanical Ventilator 03/01/20 23:32 11 156/76 Endotracheal Tube 60 03/01/20 23:04 98 23 60 03/01/20 23:00 11 153/74 Endotracheal Tube 60 03/01/20 23:00 11 03/01/20 23:00 95 0 153/74 (100) 98 03/01/20 22:00 73 0 140/68 (92) 96 03/01/20 22:00 11 140/68 Nasal Cannula 60 03/01/20 22:00 18 Endotracheal Tube 60 03/01/20 21:04 97 155/76 03/01/20 21:00 96 0 149/75 (99) 97 03/01/20 21:00 11 149/75 Endotracheal Tube 60 03/01/20 21:00 18 Endotracheal Tube 60 03/01/20 20:54 18 Endotracheal Tube 60 03/01/20 20:00 Mechanical Ventilator 03/01/20 20:00 102 03/01/20 20:00 100.9 101 0 157/76 (103) 96 03/01/20 20:00 11 157/76 Endotracheal Tube 60 03/01/20 20:00 60 03/01/20 20:00 101 0 157/76 (103) 96 03/01/20 19:51 101 22 60 03/01/20 19:49 100.9 03/01/20 19:00 101.0 96 22 160/75 (103) 97 03/01/20 19:00 22 158/76 Endotracheal Tube 60 03/01/20 19:00 22 Endotracheal Tube 60 03/01/20 18:00 22 155/77 Endotracheal Tube 60 03/01/20 18:00 22 Endotracheal Tube 60 03/01/20 18:00 95 22 157/74 (101) 97 03/01/20 17:00 97 22 164/73 (103) 97 03/01/20 17:00 22 164/73 Endotracheal Tube 60 03/01/20 17:00 22 Endotracheal Tube 60 03/01/20 16:00 60 03/01/20 16:00 Mechanical Ventilator 03/01/20 16:00 98.8 03/01/20 16:00 22 162/76 Endotracheal Tube 60 03/01/20 16:00 22 Endotracheal Tube 60 03/01/20 16:00 95 03/01/20 16:00 95 0 169/79 (109) 97 03/01/20 15:28 96 22 60 03/01/20 15:15 22 167/79 Endotracheal Tube 60 03/01/20 15:00 22 167/79 Endotracheal Tube 60 03/01/20 15:00 22 Endotracheal Tube 60 03/01/20 15:00 94 0 162/80 (107) 96 03/01/20 14:11 101.3 03/01/20 14:00 22 159/73 Endotracheal Tube 60 03/01/20 14:00 22 Endotracheal Tube 60 03/01/20 14:00 93 0 163/78 (106) 96 03/01/20 13:42 162/76 03/01/20 13:00 22 162/76 Endotracheal Tube 60 03/01/20 13:00 22 Endotracheal Tube 60 03/01/20 13:00 101.1 91 0 166/74 (104) 95 03/01/20 12:00 100.0 97 0 148/73 (98) 96 03/01/20 12:00 60 03/01/20 12:00 22 149/70 Endotracheal Tube 60 03/01/20 12:00 22 Endotracheal Tube 60 03/01/20 12:00 Mechanical Ventilator 03/01/20 12:00 84 03/01/20 11:30 86 0 154/70 (98) 95 03/01/20 11:23 94 26 60 03/01/20 11:00 91 20 160/69 (99) 91 03/01/20 11:00 22 154/70 Endotracheal Tube 60 03/01/20 11:00 22 Endotracheal Tube 60 03/01/20 10:00 95 5 165/71 (102) 92 03/01/20 10:00 22 165/71 Endotracheal Tube 60 03/01/20 10:00 22 Endotracheal Tube 60 03/01/20 09:20 22 60 03/01/20 09:20 79 177/86 03/01/20 09:19 79 177/81 03/01/20 09:18 177/81 03/01/20 09:00 22 177/81 Endotracheal Tube 60 03/01/20 09:00 22 Endotracheal Tube 60 03/01/20 09:00 82 9 177/81 (113) 97 03/01/20 08:00 60 03/01/20 08:00 99.3 66 0 144/65 (91) 98 03/01/20 08:00 22 144/65 Endotracheal Tube 60 03/01/20 08:00 22 Endotracheal Tube 60 03/01/20 08:00 Mechanical Ventilator 03/01/20 07:37 86 03/01/20 07:35 86 28 60 03/01/20 07:00 87 22 172/78 (109) 99 03/01/20 07:00 22 Mechanical Ventilator 60 Intake and Output 03/02/20 03/03/20 19:00 07:00 Intake Total 880 ml 227.80 ml Output Total 580 ml 1500 ml Balance 300 ml -1272.20 ml Free Water 150 ml IV Total 180 ml 197.80 ml Tube Feeding 520 ml 30 ml Other 30 ml Output Urine Total 580 ml 1500 ml Labs Test 12/3/20 08:44 02/29/20:50 03/01/20 04:00 03/02/20 05:15 Arterial Blood pH 7.385 (7.350-7.450) Arterial Blood Partial Pressure CO2 45.7 mmHg (35.0-45.0) Arterial Blood Partial Pressure O2 63.3 mmHg (75.0-100.0) Arterial Blood HCO3 26.7 mmol/L (22.0-26.0) Arterial Blood Oxygen Saturation 90.7 % (95-100) Arterial Blood Base Excess 1.4 (-2-2) Bryan Test Positive White Blood Count 21.6 K/UL (4.8-10.8) 22.7 K/UL (4.8-10.8) 24.4 K/UL (4.8-10.8) Red Blood Count 3.25 M/UL (4.20-5.40) 3.17 M/UL (4.20-5.40) 3.35 M/UL (4.20-5.40) Hemoglobin 9.0 G/DL (12.0-16.0) 9.1 G/DL (12.0-16.0) 9.6 G/DL (12.0-16.0) Hematocrit 28.3 % (37.0-47.0) 27.9 % (37.0-47.0) 29.7 % (37.0-47.0) Mean Corpuscular Volume 87 FL (80-99) 88 FL (80-99) 89 FL (80-99) Mean Corpuscular Hemoglobin 27.6 PG (27.0-31.0) 28.7 PG (27.0-31.0) 28.6 PG (27.0-31.0) Mean Corpuscular Hemoglobin Concent 31.7 G/DL (32.0-36.0) 32.6 G/DL (32.0-36.0) 32.3 G/DL (32.0-36.0) Red Cell Distribution Width 19.2 % (11.6-14.8) 18.7 % (11.6-14.8) 19.3 % (11.6-14.8) Platelet Count 155 K/UL (150-450) 169 K/UL (150-450) 211 K/UL (150-450) Mean Platelet Volume 8.2 FL (6.5-10.1) 9.0 FL (6.5-10.1) 8.2 FL (6.5-10.1) Neutrophils (%) (Auto) % (45.0-75.0) % (45.0-75.0) % (45.0-75.0) Lymphocytes (%) (Auto) % (20.0-45.0) % (20.0-45.0) % (20.0-45.0) Monocytes (%) (Auto) % (1.0-10.0) % (1.0-10.0) % (1.0-10.0) Eosinophils (%) (Auto) % (0.0-3.0) % (0.0-3.0) % (0.0-3.0) Basophils (%) (Auto) % (0.0-2.0) % (0.0-2.0) % (0.0-2.0) Differential Total Cells Counted 100 100 100 Neutrophils % (Manual) 86 % (45-75) 95 % (45-75) 94 % (45-75) Lymphocytes % (Manual) 8 % (20-45) 5 % (20-45) 1 % (20-45) Monocytes % (Manual) 2 % (1-10) 0 % (1-10) 5 % (1-10) Eosinophils % (Manual) 0 % (0-3) 0 % (0-3) 0 % (0-3) Basophils % (Manual) 0 % (0-2) 0 % (0-2) 0 % (0-2) Band Neutrophils 4 % (0-8) 0 % (0-8) 0 % (0-8) Platelet Estimate Adequate Adequate Adequate Platelet Morphology Normal Normal Normal Polychromasia 1+ Hypochromasia 2+ 1+ 1+ Anisocytosis 1+ 1+ 2+ Sodium Level 149 MMOL/L (136-145) 150 MMOL/L (136-145) Potassium Level 4.0 MMOL/L (3.5-5.1) 4.5 MMOL/L (3.5-5.1) Chloride Level 115 MMOL/L (98-107) 114 MMOL/L (98-107) Carbon Dioxide Level 29 MMOL/L (21-32) 29 MMOL/L (21-32) Anion Gap 5 mmol/L (5-15) 7 mmol/L (5-15) Blood Urea Nitrogen 40 mg/dL (7-18) 49 mg/dL (7-18) Creatinine 1.3 MG/DL (0.55-1.30) 1.4 MG/DL (0.55-1.30) Estimat Glomerular Filtration Rate 50.7 mL/min (>60) 46.5 mL/min (>60) Glucose Level 286 MG/DL (74-106) 306 MG/DL (74-106) Calcium Level 7.9 MG/DL (8.5-10.1) 8.3 MG/DL (8.5-10.1) Total Bilirubin 0.6 MG/DL (0.2-1.0) 0.5 MG/DL (0.2-1.0) Aspartate Amino Transf (AST/SGOT) 42 U/L (15-37) 74 U/L (15-37) Alanine Aminotransferase (ALT/SGPT) 30 U/L (12-78) 49 U/L (12-78) Alkaline Phosphatase 498 U/L (46-116) 666 U/L (46-116) Total Protein 6.0 G/DL (6.4-8.2) 6.6 G/DL (6.4-8.2) Albumin 1.6 G/DL (3.4-5.0) 1.7 G/DL (3.4-5.0) Globulin 4.4 g/dL 4.9 g/dL Albumin/Globulin Ratio 0.4 (1.0-2.7) 0.3 (1.0-2.7) Random Vancomycin Level 8.5 ug/mL Test 03/02/20 08:01 03/02/20 11:47 Arterial Blood pH 7.250 (7.350-7.450) 7.278 (7.350-7.450) Arterial Blood Partial Pressure CO2 65.9 mmHg (35.0-45.0) 63.9 mmHg (35.0-45.0) Arterial Blood Partial Pressure O2 59.1 mmHg (75.0-100.0) 76.0 mmHg (75.0-100.0) Arterial Blood HCO3 28.3 mmol/L (22.0-26.0) 29.2 mmol/L (22.0-26.0) Arterial Blood Oxygen Saturation 88.4 % (95-100) 94.2 % (95-100) Arterial Blood Base Excess 0 (-2-2) 1.3 (-2-2) Bryan Test Positive Positive Height (Feet): 5 Height (Inches): 1.00 Weight (Pounds): 168 Objective PHYSICAL EXAMINATION: GENERAL: An obese woman, seen in the ICU in her room. HEENT: Normocephalic and atraumatic. Sclerae are anicteric. NECK: Supple. ++vent CHEST: Exam revealed coarse breath sounds. CARDIOVASCULAR: Exam revealed a tachycardic heart rate. ABDOMEN: Soft, obese, and nontender. EXTREMITIES: Trace edema. Rodolfo Ohara MD Mar 03, 2020 06:57
--- NOTE | 2020-03-03 07:30 | NUR ---
NURSE HAND-OFF REPORT: Latest Vital Signs: Temperature 101.4 , Pulse 124 , B/P 192 /96 , Respiratory Rate 30 , O2 SAT 100 , Mechanical Ventilator, O2 Flow Rate . Vital Sign Comment: EKG Rhythm: Sinus Tachycardia Rhythm change?: N Latest Pineda Fall Score: 50 Fall Risk: High Risk Safety Measures: Call light Within Reach, Bed Alarm Zone 2, Side Rails Side Rails x3, Bed position Low and Locked. Fall Precautions: Door Sign Report given to JO-ANN Krueger. Pt is sedated on the bed and On running with Fentanyl drip @ 260mcg/hr. On running with OGT feeding @ 30cc/hr. Keep cooling measure. SaO2 100% with Current Vent setting.
[2020-03-03 08:34] LABS: HEMATOCRIT 31.2 % (37.0-47.0); HEMOGLOBIN 10.2 G/DL (12.0-16.0); MEAN CORPUSCULAR VOLUME 84 FL (80-99); PLATELET COUNT 303 K/UL (150-450); RED BLOOD COUNT 3.69 M/UL (4.20-5.40); RED CELL DISTRIBUTION WIDTH 19.6 % (11.6-14.8)
[2020-03-03 08:39] LABS: WHITE BLOOD COUNT 30.6 K/UL (4.8-10.8)
[2020-03-03 08:48] LABS: CALCIUM 8.4 MG/DL (8.5-10.1); CREATININE 1.5 MG/DL (0.55-1.30); POTASSIUM 4.5 MMOL/L (3.5-5.1)
--- NOTE | 2020-03-03 09:20 | General Progress Note ---
Subjective ROS Limited/Unobtainable: No Allergies: Coded Allergies: No Known Allergies (Unverified , 07/30/15) Objective Last 24 Hour Vital Signs Date Time Temp Pulse Resp B/P (MAP) Pulse Ox O2 Delivery O2 Flow Rate FiO2 03/03/20 07:00 124 30 192/96 (128) 100 03/03/20 07:00 30 192/96 Mechanical Ventilator 80 03/03/20 06:45 118 25 171/77 (108) 100 03/03/20 06:38 120 26 167/68 (101) 99 03/03/20 06:31 124 192/88 03/03/20 06:30 123 32 192/88 (122) 100 03/03/20 06:15 123 32 194/87 (122) 94 03/03/20 06:00 126 37 210/107 (141) 100 03/03/20 06:00 32 210/107 Mechanical Ventilator 80 03/03/20 06:00 204/101 03/03/20 05:30 126 39 204/101 (135) 99 03/03/20 05:00 36 205/107 Mechanical Ventilator 80 03/03/20 05:00 130 36 205/107 (139) 100 03/03/20 04:30 127 24 207/95 (132) 100 03/03/20 04:00 132 03/03/20 04:00 100.8 133 29 202/103 (136) 100 03/03/20 04:00 Mechanical Ventilator 03/03/20 04:00 80 03/03/20 04:00 29 202/103 Mechanical Ventilator 80 03/03/20 03:30 136 37 219/100 (139) 100 03/03/20 03:24 142 36 60 03/03/20 03:00 100.2 139 31 207/99 (135) 100 03/03/20 03:00 31 207/99 Mechanical Ventilator 80 03/03/20 02:45 134 36 180/104 (129) 100 03/03/20 02:45 36 180/104 Mechanical Ventilator 80 03/03/20 02:30 120 21 213/102 (139) 100 03/03/20 02:30 21 213/102 Mechanical Ventilator 80 03/03/20 02:15 24 209/95 Mechanical Ventilator 80 03/03/20 02:07 195/90 03/03/20 02:00 24 209/95 Mechanical Ventilator 80 03/03/20 02:00 113 27 195/90 (125) 100 03/03/20 01:30 111 25 195/97 (129) 100 03/03/20 01:00 24 195/92 Mechanical Ventilator 80 03/03/20 01:00 109 24 195/92 (126) 100 03/03/20 00:30 107 24 189/90 (123) 100 03/03/20 00:00 107 03/03/20 00:00 80 03/03/20 00:00 99.7 106 24 187/89 (121) 100 03/03/20 00:00 24 187/89 Mechanical Ventilator 80 03/03/20 00:00 Mechanical Ventilator 03/02/20 23:30 107 22 190/92 (124) 100 03/02/20 23:22 190/92 03/02/20 23:04 107 22 100 Mechanical Ventilator 80 108 22 03/02/20 23:00 107 24 185/101 (129) 100 03/02/20 23:00 24 185/101 Mechanical Ventilator 80 03/02/20 22:38 22 170/91 Mechanical Ventilator 80 03/02/20 22:30 94 22 170/91 (117) 100 03/02/20 22:00 22 138/70 Mechanical Ventilator 80 03/02/20 22:00 94 22 138/70 (92) 100 03/02/20 21:30 96 22 137/68 (91) 100 03/02/20 21:00 103 22 145/69 (94) 100 03/02/20 21:00 22 137/68 Mechanical Ventilator 80 03/02/20 20:30 110 22 165/79 (107) 100 03/02/20 20:23 111 166/81 03/02/20 20:00 116 03/02/20 20:00 80 03/02/20 20:00 27 173/91 Mechanical Ventilator 80 03/02/20 20:00 Mechanical Ventilator 03/02/20 20:00 99.9 120 27 173/91 (118) 100 03/02/20 19:45 118 25 176/84 (114) 100 03/02/20 19:30 117 24 173/95 (121) 100 03/02/20 19:15 117 22 156/76 (102) 100 03/02/20 19:13 124 24 100 Mechanical Ventilator 80 124 26 03/02/20 19:00 24 193/89 Mechanical Ventilator 80 03/02/20 19:00 177/112 03/02/20 19:00 128 26 193/89 (123) 100 03/02/20 18:45 126 24 191/96 (127) 100 03/02/20 18:30 125 26 194/94 (127) 99 03/02/20 18:25 125 26 187/105 (132) 100 03/02/20 18:20 125 27 203/105 (137) 100 03/02/20 18:17 124 26 204/99 (134) 100 03/02/20 18:12 123 27 182/84 (116) 100 03/02/20 18:00 100.0 126 26 100 03/02/20 17:15 112 28 100 03/02/20 17:00 24 200/113 Mechanical Ventilator 03/02/20 17:00 100 24 172/91 (118) 100 03/02/20 16:45 98 23 100 03/02/20 16:30 112 24 163/78 (106) 100 03/02/20 16:15 111 24 163/68 (99) 100 03/02/20 16:00 99.5 110 26 189/106 (133) 100 03/02/20 16:00 25 189/106 Mechanical Ventilator 100 03/02/20 16:00 80 03/02/20 16:00 112 03/02/20 16:00 Mechanical Ventilator 03/02/20 15:45 105 23 100 03/02/20 15:45 115 26 99 Mechanical Ventilator 80 110 25 03/02/20 15:30 100 25 160/78 (105) 100 03/02/20 15:29 99 23 154/79 (104) 100 03/02/20 15:15 100.8 100 23 100 03/02/20 15:00 100 23 144/70 (94) 100 03/02/20 15:00 22 154/79 Mechanical Ventilator 100 03/02/20 14:00 105 7 152/77 (102) 100 03/02/20 14:00 19 146/70 Mechanical Ventilator 100 03/02/20 13:30 107 20 134/88 (103) 100 03/02/20 13:10 99 14 152/77 (102) 79 03/02/20 13:00 18 152/77 Mechanical Ventilator 89 03/02/20 13:00 99 16 148/76 (100) 97 03/02/20 12:30 79 23 144/65 (91) 95 03/02/20 12:29 78 23 141/65 (90) 95 03/02/20 12:00 80 03/02/20 12:00 101.1 89 22 151/71 (97) 98 03/02/20 12:00 21 141/65 Mechanical Ventilator 97 03/02/20 12:00 77 03/02/20 12:00 Mechanical Ventilator 03/02/20 11:57 80 03/02/20 11:38 96 25 60 03/02/20 11:30 91 2 155/86 (109) 100 03/02/20 11:00 96 23 140/65 (90) 100 03/02/20 11:00 21 155/86 Mechanical Ventilator 98 03/02/20 10:30 100 24 157/77 (103) 100 03/02/20 10:18 23 180/100 Mechanical Ventilator 03/02/20 10:16 23 03/02/20 10:10 108 26 164/83 (110) 100 03/02/20 10:00 80 03/02/20 10:00 25 164/83 Mechanical Ventilator 100 03/02/20 10:00 100.9 118 27 186/92 (123) 03/02/20 09:42 118 26 206/86 (126) 98 03/02/20 09:35 113 26 195/82 (119) 98 Intake and Output 03/02/20 03/03/20 19:00 07:00 Intake Total 880 ml 305.80 ml Output Total 580 ml 1550 ml Balance 300 ml -1244.20 ml Free Water 150 ml IV Total 180 ml 245.80 ml Tube Feeding 520 ml 60 ml Other 30 ml Output Urine Total 580 ml 1550 ml Laboratory Tests 03/02/20 11:47: Arterial Blood pH 7.278L, Arterial Blood Partial Pressure CO2 63.9*H, Arterial Blood Partial Pressure O2 76.0, Arterial Blood HCO3 29.2H, Arterial Blood Oxygen Saturation 94.2L, Arterial Blood Base Excess 1.3, Bryan Test Positive 03/03/20 08:20: White Blood Count 30.6*H, Red Blood Count 3.69L, Hemoglobin 10.2L, Hematocrit 31.2L, Mean Corpuscular Volume 84, Mean Corpuscular Hemoglobin 27.5, Mean Corpuscular Hemoglobin Concent 32.6, Red Cell Distribution Width 19.6H, Platelet Count 303, Mean Platelet Volume 7.7, Neutrophils (%) (Auto) , Lymphocytes (%) (Auto) , Monocytes (%) (Auto) , Eosinophils (%) (Auto) , Basophils (%) (Auto) , Neutrophils % (Manual) [Pending], Lymphocytes % (Manual) [Pending], Platelet Estimate [Pending], Platelet Morphology [Pending], Sodium Level 149H, Potassium Level 4.5, Chloride Level 115H, Carbon Dioxide Level 29, Anion Gap 5, Blood Urea Nitrogen 52H, Creatinine 1.5H, Estimat Glomerular Filtration Rate 42.9, Glucose Level 348H, Calcium Level 8.4L 03/03/20 08:56: Arterial Blood pH 7.330L, Arterial Blood Partial Pressure CO2 56.4*H, Arterial Blood Partial Pressure O2 82.5, Arterial Blood HCO3 29.1H, Arterial Blood Oxygen Saturation 95.7, Arterial Blood Base Excess 2.2H, Bryan Test Positive Height (Feet): 5 Height (Inches): 1.00 Weight (Pounds): 168 General Appearance: no apparent distress EENT: normal ENT inspection Neck: supple Cardiovascular: normal rate Respiratory/Chest: decreased breath sounds Abdomen: normal bowel sounds, non tender, soft Extremities: non-tender Assessment/Plan Assessment/Plan: Assessment - GIB - resolved off of anticoagulation - Anemia - hypokalemia, DM and Hypernatremia - changed TF to DM formula - COVID pneumonitis, on Steroids - Acute SD - on ASA - Resp failure - malnutrition/feeding tube dependent - declining albumin - partly due to liver disease - fatty liver - hepatitis C with nodular liver, PCR (+) - abnormal LFT - due to COVD, fatty liver, and HCV - HTN - COPD - Lung mass - DM Recommendations - Continue TF - protein powder - Sq heparin - increase free water to correct Na - monitor CBC - follow LFT - PPI --> now BID - Elevate HOB - outpatient HCV eradication - Outpatient colonoscopy once recovered from current illness Pee Chan MD Mar 03, 2020 09:20
[2020-03-03] MEDS: Heparin 5000 units/ml inj SUBQ SCH ×2 (09:54→20:04)
[2020-03-03] MEDS: Multivitamins W/Minerals 15 ML UDC NG SCH (09:55)
[2020-03-03] MEDS: Nitroglycerin 2% oint pkt TOPIC SCH (09:55)
[2020-03-03] MEDS: Aspirin Baby 81mg NG SCH (09:55)
[2020-03-03] MEDS: Pantoprazole Inj IVP SCH ×2 (09:55→20:02)
--- NOTE | 2020-03-03 09:57 | Diagnostic Imaging Report ---
EXAM: XR Chest, 1 View CLINICAL HISTORY: Shortness of breath TECHNIQUE: Frontal view of the chest. COMPARISON: Chest x-rays dated 03/02/20 FINDINGS: Lungs: No significant interval change in diffuse bilateral pulmonary opacities. No significant change in appearance of the cavitary lesion in the right upper lobe. Pleural space: Unremarkable. The costophrenic angles are sharp. No visible pneumothorax. Heart: Unremarkable. No cardiomegaly. Mediastinum: Unremarkable. Bones/joints: Unremarkable. Tubes, lines and devices: Endotracheal tube tip 3 cm above the collins. Telemetry leads overlie the thorax. IMPRESSION: 1. No significant interval change in diffuse bilateral pulmonary opacities. 2. No significant change in appearance of the cavitary lesion in the right upper lobe.
[2020-03-03] MEDS: fentaNYL 2500mcg/NS 250ml 250 ML IV SCH ×2 (09:59→20:03)
[2020-03-03] MEDS: Metoprolol Tartrate 100mg tab NG SCH ×2 (10:01→20:04)
--- NOTE | 2020-03-03 10:30 | NUR ---
NURSE NOTES: Dr. Feliz at the bedside assessing patient, made aware she is currently on PS of 45, AC 22, FIo2 of 80% with peep of 8. ordered to have patient PS of 45 changed to TV of 550. order placed and notified RT of orders.
--- NOTE | 2020-03-03 11:45 | NUR ---
NURSE NOTES: Dr. Durham updated on patient WBC count increase to 30.6 with temperature ranging from 97.1-97.7 F taken rectally, nor verbal orders given at this time.
--- NOTE | 2020-03-03 11:57 | Critical Care Progress Note ---
Assessment/Plan Assessment/Plan IMPRESSION acute respiratory failure/ now on vent leukocytosis, possibly exacerbated by steroids sepsis ARF toxic met encephalopathy COPD DM poor control cavitary lesion negative AFB groundglass infiltrates NSTEMI severe PCM hypertension left shoulder pain bacteremia MRSA hematuria COVID anemia diabetes s/p respiratory code hypernatremia edema PLAN lasix with caution monitor sodium levels DVT prophylaxis monitor HH antibiotics per ID titrate BP meds - increase beta rusty vent support- consider wean if oxygenation better monitor acid base NGT and feeds monitor lytes maintain support- via vent and change to volume ventilation monitor LOC critical at present maintain sedation adjust insulin medications/laboratory data/nursing notes/ICU care reviewed in detail note reviewed and edited care discussed with RN and RT ICU time spent >40 minutes Critical Care - Subjective Interval Events: d/w family yesterday and today updates given d/w RN Condition: critical EKG Rhythm: Sinus Tachycardia Residuals: minimal Tube Feeding Tolerated: yes I&O: Intake and Output 03/02/20 03/03/20 19:00 07:00 Intake Total 880 ml 305.80 ml Output Total 580 ml 1550 ml Balance 300 ml -1244.20 ml Free Water 150 ml IV Total 180 ml 245.80 ml Tube Feeding 520 ml 60 ml Other 30 ml Output Urine Total 580 ml 1550 ml Critical Care - Objective ET-Tube: 7.5 ET Position: 25 Last 24 Hour Vital Signs Date Time Temp Pulse Resp B/P (MAP) Pulse Ox O2 Delivery O2 Flow Rate FiO2 03/03/20 11:00 103 15 142/90 (107) 100 03/03/20 10:30 115 29 147/96 (113) 100 03/03/20 10:01 102 184/92 03/03/20 10:00 113 28 174/99 (124) 96 03/03/20 10:00 100 03/03/20 09:59 27 184/92 Mechanical Ventilator 100 03/03/20 09:55 184/92 03/03/20 09:30 114 27 157/122 (134) 100 03/03/20 09:15 110 22 143/77 (99) 100 03/03/20 09:00 100.6 131 31 177/163 (168) 99 03/03/20 08:45 128 33 189/93 (125) 98 03/03/20 08:30 120 34 179/90 (119) 100 03/03/20 08:15 121 30 179/92 (121) 100 03/03/20 08:00 101.6 123 29 176/100 (125) 100 03/03/20 08:00 Mechanical Ventilator 03/03/20 08:00 121 03/03/20 08:00 80 03/03/20 07:00 124 30 192/96 (128) 100 03/03/20 07:00 30 192/96 Mechanical Ventilator 80 03/03/20 06:45 118 25 171/77 (108) 100 03/03/20 06:38 120 26 167/68 (101) 99 03/03/20 06:31 124 192/88 03/03/20 06:30 123 32 192/88 (122) 100 03/03/20 06:15 123 32 194/87 (122) 94 03/03/20 06:00 126 37 210/107 (141) 100 03/03/20 06:00 32 210/107 Mechanical Ventilator 80 03/03/20 06:00 204/101 03/03/20 05:30 126 39 204/101 (135) 99 03/03/20 05:00 36 205/107 Mechanical Ventilator 80 03/03/20 05:00 130 36 205/107 (139) 100 03/03/20 04:30 127 24 207/95 (132) 100 03/03/20 04:00 132 03/03/20 04:00 100.8 133 29 202/103 (136) 100 03/03/20 04:00 Mechanical Ventilator 03/03/20 04:00 80 03/03/20 04:00 29 202/103 Mechanical Ventilator 80 03/03/20 03:30 136 37 219/100 (139) 100 03/03/20 03:24 142 36 60 03/03/20 03:00 100.2 139 31 207/99 (135) 100 03/03/20 03:00 31 207/99 Mechanical Ventilator 80 03/03/20 02:45 134 36 180/104 (129) 100 03/03/20 02:45 36 180/104 Mechanical Ventilator 80 03/03/20 02:30 120 21 213/102 (139) 100 03/03/20 02:30 21 213/102 Mechanical Ventilator 80 03/03/20 02:15 24 209/95 Mechanical Ventilator 80 03/03/20 02:07 195/90 03/03/20 02:00 24 209/95 Mechanical Ventilator 80 03/03/20 02:00 113 27 195/90 (125) 100 03/03/20 01:30 111 25 195/97 (129) 100 03/03/20 01:00 24 195/92 Mechanical Ventilator 80 03/03/20 01:00 109 24 195/92 (126) 100 03/03/20 00:30 107 24 189/90 (123) 100 03/03/20 00:00 107 03/03/20 00:00 80 03/03/20 00:00 99.7 106 24 187/89 (121) 100 03/03/20 00:00 24 187/89 Mechanical Ventilator 80 03/03/20 00:00 Mechanical Ventilator 03/02/20 23:30 107 22 190/92 (124) 100 03/02/20 23:22 190/92 03/02/20 23:04 107 22 100 Mechanical Ventilator 80 108 22 03/02/20 23:00 107 24 185/101 (129) 100 03/02/20 23:00 24 185/101 Mechanical Ventilator 80 03/02/20 22:38 22 170/91 Mechanical Ventilator 80 03/02/20 22:30 94 22 170/91 (117) 100 03/02/20 22:00 22 138/70 Mechanical Ventilator 80 03/02/20 22:00 94 22 138/70 (92) 100 03/02/20 21:30 96 22 137/68 (91) 100 03/02/20 21:00 103 22 145/69 (94) 100 03/02/20 21:00 22 137/68 Mechanical Ventilator 80 03/02/20 20:30 110 22 165/79 (107) 100 03/02/20 20:23 111 166/81 03/02/20 20:00 116 03/02/20 20:00 80 03/02/20 20:00 27 173/91 Mechanical Ventilator 80 03/02/20 20:00 Mechanical Ventilator 03/02/20 20:00 99.9 120 27 173/91 (118) 100 03/02/20 19:45 118 25 176/84 (114) 100 03/02/20 19:30 117 24 173/95 (121) 100 03/02/20 19:15 117 22 156/76 (102) 100 03/02/20 19:13 124 24 100 Mechanical Ventilator 80 124 26 12/5/20 19:00 24 193/89 Mechanical Ventilator 80 03/02/20 19:00 177/112 03/02/20 19:00 128 26 193/89 (123) 100 03/02/20 18:45 126 24 191/96 (127) 100 03/02/20 18:30 125 26 194/94 (127) 99 03/02/20 18:25 125 26 187/105 (132) 100 03/02/20 18:20 125 27 203/105 (137) 100 03/02/20 18:17 124 26 204/99 (134) 100 03/02/20 18:12 123 27 182/84 (116) 100 03/02/20 18:00 100.0 126 26 100 03/02/20 17:15 112 28 100 03/02/20 17:00 24 200/113 Mechanical Ventilator 03/02/20 17:00 100 24 172/91 (118) 100 03/02/20 16:45 98 23 100 03/02/20 16:30 112 24 163/78 (106) 100 03/02/20 16:15 111 24 163/68 (99) 100 03/02/20 16:00 99.5 110 26 189/106 (133) 100 03/02/20 16:00 25 189/106 Mechanical Ventilator 100 03/02/20 16:00 80 03/02/20 16:00 112 03/02/20 16:00 Mechanical Ventilator 03/02/20 15:45 105 23 100 03/02/20 15:45 115 26 99 Mechanical Ventilator 80 110 25 03/02/20 15:30 100 25 160/78 (105) 100 03/02/20 15:29 99 23 154/79 (104) 100 03/02/20 15:15 100.8 100 23 100 03/02/20 15:00 100 23 144/70 (94) 100 03/02/20 15:00 22 154/79 Mechanical Ventilator 100 03/02/20 14:00 105 7 152/77 (102) 100 03/02/20 14:00 19 146/70 Mechanical Ventilator 100 03/02/20 13:30 107 20 134/88 (103) 100 03/02/20 13:10 99 14 152/77 (102) 79 03/02/20 13:00 18 152/77 Mechanical Ventilator 89 03/02/20 13:00 99 16 148/76 (100) 97 03/02/20 12:30 79 23 144/65 (91) 95 03/02/20 12:29 78 23 141/65 (90) 95 03/02/20 12:00 80 03/02/20 12:00 101.1 89 22 151/71 (97) 98 03/02/20 12:00 21 141/65 Mechanical Ventilator 97 03/02/20 12:00 77 03/02/20 12:00 Mechanical Ventilator 03/02/20 11:57 80 Labs: Laboratory Tests 03/03/20 08:20: White Blood Count 30.6*H, Red Blood Count 3.69L, Hemoglobin 10.2L, Hematocrit 31.2L, Mean Corpuscular Volume 84, Mean Corpuscular Hemoglobin 27.5, Mean Corpuscular Hemoglobin Concent 32.6, Red Cell Distribution Width 19.6H, Platelet Count 303, Mean Platelet Volume 7.7, Neutrophils (%) (Auto) , Lymphocytes (%) (Auto) , Monocytes (%) (Auto) , Eosinophils (%) (Auto) , Basophils (%) (Auto) , Differential Total Cells Counted 100, Neutrophils % (Manual) 91H, Lymphocytes % (Manual) 3L, Monocytes % (Manual) 6, Eosinophils % (Manual) 0, Basophils % (Manual) 0, Band Neutrophils 0, Platelet Estimate Adequate, Platelet Morphology Normal, Hypochromasia 1+, Anisocytosis 2+, Sodium Level 149H, Potassium Level 4. 5, Chloride Level 115H, Carbon Dioxide Level 29, Anion Gap 5, Blood Urea Nitrogen 52H, Creatinine 1.5H, Estimat Glomerular Filtration Rate 42.9, Glucose Level 348H, Calcium Level 8.4L 03/03/20 08:56: Arterial Blood pH 7.330L, Arterial Blood Partial Pressure CO2 56.4*H, Arterial Blood Partial Pressure O2 82.5, Arterial Blood HCO3 29.1H, Arterial Blood Oxygen Saturation 95.7, Arterial Blood Base Excess 2.2H, Bryan Test Positive Objective: deferred due to COVID Accucheck: 352 Germán Feliz MD Mar 03, 2020 11:57
--- NOTE | 2020-03-03 12:15 | Infectious Diseases Prog Note ---
Assessment/Plan Assessment/Plan A 1. cavitary pneumonia with MRSA sputum AFB negative x 3 2. staph aureus (MRSA) sepsis 3. diabetes mellitus 4. hypertension 5. COPD 6. renal failure 7. aortic stenosis 8. Anemia 9. CHF, EF=40-45% 10. COVID19 pneumonia 11. Hypercapnic/ hypoxic respiratory failure P 1. Continue IV Vancomycin X 11 days 2. Continue Dexamethasone 3. Finished Remdesivir course 4. sputum culture 5. Start on Cefepime 6. Blood culture from PICC line Subjective ROS Limited/Unobtainable: Yes Constitutional: Reports: fever, other - Nc=900.6 Neurologic: Reports: other - sedated on restraint Allergies: Coded Allergies: No Known Allergies (Unverified , 07/30/15) Objective Last 24 Hour Vital Signs Date Time Temp Pulse Resp B/P (MAP) Pulse Ox O2 Delivery O2 Flow Rate FiO2 03/03/20 11:00 103 15 142/90 (107) 100 03/03/20 10:30 115 29 147/96 (113) 100 03/03/20 10:01 102 184/92 03/03/20 10:00 113 28 174/99 (124) 96 03/03/20 10:00 100 03/03/20 09:59 27 184/92 Mechanical Ventilator 100 03/03/20 09:55 184/92 03/03/20 09:30 114 27 157/122 (134) 100 03/03/20 09:15 110 22 143/77 (99) 100 03/03/20 09:00 100.6 131 31 177/163 (168) 99 03/03/20 08:45 128 33 189/93 (125) 98 03/03/20 08:30 120 34 179/90 (119) 100 03/03/20 08:15 121 30 179/92 (121) 100 03/03/20 08:00 101.6 123 29 176/100 (125) 100 03/03/20 08:00 Mechanical Ventilator 03/03/20 08:00 121 03/03/20 08:00 80 03/03/20 07:00 124 30 192/96 (128) 100 03/03/20 07:00 30 192/96 Mechanical Ventilator 80 03/03/20 06:45 118 25 171/77 (108) 100 03/03/20 06:38 120 26 167/68 (101) 99 03/03/20 06:31 124 192/88 03/03/20 06:30 123 32 192/88 (122) 100 03/03/20 06:15 123 32 194/87 (122) 94 03/03/20 06:00 126 37 210/107 (141) 100 03/03/20 06:00 32 210/107 Mechanical Ventilator 80 03/03/20 06:00 204/101 03/03/20 05:30 126 39 204/101 (135) 99 03/03/20 05:00 36 205/107 Mechanical Ventilator 80 03/03/20 05:00 130 36 205/107 (139) 100 03/03/20 04:30 127 24 207/95 (132) 100 03/03/20 04:00 132 03/03/20 04:00 100.8 133 29 202/103 (136) 100 03/03/20 04:00 Mechanical Ventilator 03/03/20 04:00 80 03/03/20 04:00 29 202/103 Mechanical Ventilator 80 03/03/20 03:30 136 37 219/100 (139) 100 03/03/20 03:24 142 36 60 03/03/20 03:00 100.2 139 31 207/99 (135) 100 03/03/20 03:00 31 207/99 Mechanical Ventilator 80 03/03/20 02:45 134 36 180/104 (129) 100 03/03/20 02:45 36 180/104 Mechanical Ventilator 80 03/03/20 02:30 120 21 213/102 (139) 100 03/03/20 02:30 21 213/102 Mechanical Ventilator 80 03/03/20 02:15 24 209/95 Mechanical Ventilator 80 03/03/20 02:07 195/90 03/03/20 02:00 24 209/95 Mechanical Ventilator 80 03/03/20 02:00 113 27 195/90 (125) 100 03/03/20 01:30 111 25 195/97 (129) 100 03/03/20 01:00 24 195/92 Mechanical Ventilator 80 03/03/20 01:00 109 24 195/92 (126) 100 03/03/20 00:30 107 24 189/90 (123) 100 03/03/20 00:00 107 03/03/20 00:00 80 12/6/20 00:00 99.7 106 24 187/89 (121) 100 03/03/20 00:00 24 187/89 Mechanical Ventilator 80 03/03/20 00:00 Mechanical Ventilator 03/02/20 23:30 107 22 190/92 (124) 100 03/02/20 23:22 190/92 03/02/20 23:04 107 22 100 Mechanical Ventilator 80 108 22 03/02/20 23:00 107 24 185/101 (129) 100 03/02/20 23:00 24 185/101 Mechanical Ventilator 80 03/02/20 22:38 22 170/91 Mechanical Ventilator 80 03/02/20 22:30 94 22 170/91 (117) 100 03/02/20 22:00 22 138/70 Mechanical Ventilator 80 03/02/20 22:00 94 22 138/70 (92) 100 03/02/20 21:30 96 22 137/68 (91) 100 03/02/20 21:00 103 22 145/69 (94) 100 03/02/20 21:00 22 137/68 Mechanical Ventilator 80 03/02/20 20:30 110 22 165/79 (107) 100 03/02/20 20:23 111 166/81 03/02/20 20:00 116 03/02/20 20:00 80 03/02/20 20:00 27 173/91 Mechanical Ventilator 80 03/02/20 20:00 Mechanical Ventilator 03/02/20 20:00 99.9 120 27 173/91 (118) 100 03/02/20 19:45 118 25 176/84 (114) 100 03/02/20 19:30 117 24 173/95 (121) 100 03/02/20 19:15 117 22 156/76 (102) 100 03/02/20 19:13 124 24 100 Mechanical Ventilator 80 124 26 03/02/20 19:00 24 193/89 Mechanical Ventilator 80 03/02/20 19:00 177/112 03/02/20 19:00 128 26 193/89 (123) 100 03/02/20 18:45 126 24 191/96 (127) 100 03/02/20 18:30 125 26 194/94 (127) 99 03/02/20 18:25 125 26 187/105 (132) 100 03/02/20 18:20 125 27 203/105 (137) 100 03/02/20 18:17 124 26 204/99 (134) 100 03/02/20 18:12 123 27 182/84 (116) 100 03/02/20 18:00 100.0 126 26 100 03/02/20 17:15 112 28 100 03/02/20 17:00 24 200/113 Mechanical Ventilator 03/02/20 17:00 100 24 172/91 (118) 100 03/02/20 16:45 98 23 100 03/02/20 16:30 112 24 163/78 (106) 100 03/02/20 16:15 111 24 163/68 (99) 100 03/02/20 16:00 99.5 110 26 189/106 (133) 100 03/02/20 16:00 25 189/106 Mechanical Ventilator 100 03/02/20 16:00 80 03/02/20 16:00 112 03/02/20 16:00 Mechanical Ventilator 03/02/20 15:45 105 23 100 03/02/20 15:45 115 26 99 Mechanical Ventilator 80 110 25 03/02/20 15:30 100 25 160/78 (105) 100 03/02/20 15:29 99 23 154/79 (104) 100 03/02/20 15:15 100.8 100 23 100 03/02/20 15:00 100 23 144/70 (94) 100 03/02/20 15:00 22 154/79 Mechanical Ventilator 100 03/02/20 14:00 105 7 152/77 (102) 100 03/02/20 14:00 19 146/70 Mechanical Ventilator 100 03/02/20 13:30 107 20 134/88 (103) 100 03/02/20 13:10 99 14 152/77 (102) 79 03/02/20 13:00 18 152/77 Mechanical Ventilator 89 03/02/20 13:00 99 16 148/76 (100) 97 03/02/20 12:30 79 23 144/65 (91) 95 03/02/20 12:29 78 23 141/65 (90) 95 Height (Feet): 5 Height (Inches): 1.00 Weight (Pounds): 168 HEENT: other - orally intubated Respiratory/Chest: other - on ventilator Cardiovascular: tachycardia, other - PICC line Abdomen: soft, non tender Neurologic/Psychiatric: other - sedated Laboratory Tests Test 03/03/20 08:20 03/03/20 08:56 White Blood Count 30.6 K/UL (4.8-10.8) *H Red Blood Count 3.69 M/UL (4.20-5.40) L Hemoglobin 10.2 G/DL (12.0-16.0) L Hematocrit 31.2 % (37.0-47.0) L Mean Corpuscular Volume 84 FL (80-99) Mean Corpuscular Hemoglobin 27.5 PG (27.0-31.0) Mean Corpuscular Hemoglobin Concent 32.6 G/DL (32.0-36.0) Red Cell Distribution Width 19.6 % (11.6-14.8) H Platelet Count 303 K/UL (150-450) Mean Platelet Volume 7.7 FL (6.5-10.1) Neutrophils (%) (Auto) % (45.0-75.0) Lymphocytes (%) (Auto) % (20.0-45.0) Monocytes (%) (Auto) % (1.0-10.0) Eosinophils (%) (Auto) % (0.0-3.0) Basophils (%) (Auto) % (0.0-2.0) Differential Total Cells Counted 100 Neutrophils % (Manual) 91 % (45-75) H Lymphocytes % (Manual) 3 % (20-45) L Monocytes % (Manual) 6 % (1-10) Eosinophils % (Manual) 0 % (0-3) Basophils % (Manual) 0 % (0-2) Band Neutrophils 0 % (0-8) Platelet Estimate Adequate Platelet Morphology Normal Hypochromasia 1+ Anisocytosis 2+ Sodium Level 149 MMOL/L (136-145) H Potassium Level 4.5 MMOL/L (3.5-5.1) Chloride Level 115 MMOL/L (98-107) H Carbon Dioxide Level 29 MMOL/L (21-32) Anion Gap 5 mmol/L (5-15) Blood Urea Nitrogen 52 mg/dL (7-18) H Creatinine 1.5 MG/DL (0.55-1.30) H Estimat Glomerular Filtration Rate 42.9 mL/min (>60) Glucose Level 348 MG/DL (74-106) H Calcium Level 8.4 MG/DL (8.5-10.1) L Arterial Blood pH 7.330 (7.350-7.450) Arterial Blood Partial Pressure CO2 56.4 mmHg (35.0-45.0) *H Arterial Blood Partial Pressure O2 82.5 mmHg (75.0-100.0) Arterial Blood HCO3 29.1 mmol/L (22.0-26.0) H Arterial Blood Oxygen Saturation 95.7 % (95-100) Arterial Blood Base Excess 2.2 (-2-2) H Bryan Test Positive Current Medications Medications (Trade) Dose Ordered Sig/Ivana Route PRN Reason Start Time Stop Time Status Last Admin Dose Admin Acetaminophen (Tylenol) 650 mg EVERY 6 HOURS PRN NG Mild Pain (Pain Scale 1-3) 02/27/20 07:45 03/28/20 07:44 03/03/20 03:06 Aspirin (ASA) 81 mg DAILY NG 02/27/20 09:00 03/30/20 08:59 03/03/20 09:55 Chlorhexidine Gluconate (Divina-Hex 2%) 1 applic DAILY@2000 TOPIC 02/26/20 20:00 05/26/20 19:59 03/02/20 19:53 Clonidine HCl (Catapres Tab) 0.1 mg Q4H PRN ORAL SBP > 150mmHg 02/06/20 07:00 05/06/20 06:59 03/03/20 06:00 Dexamethasone Sodium Phosphate (Decadron 4mg/ml vial) 6 mg Q24H IVP 03/02/20 12:00 03/11/20 12:01 03/02/20 13:56 Dextrose (Dextrose 50%) 25 ml Q30M PRN IV Hypoglycemia 01/28/20 22:45 04/27/20 22:44 Dextrose (Dextrose 50%) 50 ml Q30M PRN IV Hypoglycemia 01/28/20 22:45 04/27/20 22:44 Epoetin Haseeb (Epoetin Haseeb-EPBX(NON ESRD)) 8,000 unit WED-WED-WED SUBQ 02/05/20 21:00 05/05/20 20:59 03/01/20 21:06 Fentanyl Citrate 250 ml @ 1 mls/hr Q24H IV 02/29/20 15:00 03/06/20 14:59 03/03/20 09:59 Furosemide (Lasix) 20 mg EVERY 12 HOURS IV 03/01/20 21:00 03/31/20 20:59 03/03/20 09:54 Guaifenesin/ Dextromethorphan (Robitussin DM Syrup) 15 ml Q4H PRN ORAL For Cough 02/12/20 16:53 05/12/20 16:52 02/19/20 22:21 Heparin Sodium (Porcine) (Heparin 5000 units/ml) 5,000 units EVERY 12 HOURS SUBQ 02/28/20 21:00 04/13/20 20:59 03/03/20 09:54 Hydralazine HCl (Apresoline) 25 mg Q6H PRN ORAL SBP above 150 02/27/20 23:15 05/27/20 23:14 03/03/20 02:07 Insulin Aspart (NovoLOG) Q6HR SUBQ 01/29/20 00:00 04/28/20 00:00 03/03/20 05:59 Insulin Detemir (Levemir) 10 units EVERY 12 HOURS SUBQ 03/03/20 21:00 05/30/20 08:59 Ipratropium [place] (Atrovent Inh) 1 puffs Q4HRT INH 02/28/20 15:00 03/19/20 17:59 03/03/20 08:16 Lidocaine (Lidoderm 5% PATCH) 1 patch DAILY TDERMAL 02/11/20 09:30 05/11/20 09:29 03/03/20 09:55 Methocarbamol (Robaxin) 500 mg Q8H PRN ORAL muscle spasm 02/11/20 09:30 03/12/20 09:29 02/21/20 05:13 Metoprolol Tartrate (Lopressor) 100 mg Q12HR NG 03/03/20 10:00 05/04/20 09:59 03/03/20 10:01 Midazolam HCl 50 mg/Sodium Chloride 100 ml @ 0 mls/hr Q24H PRN IV SEDATION 02/29/20 07:30 03/06/20 14:59 03/02/20 10:16 Morphine Sulfate (Morphine Sulfate) 2 mg Q2H PRN IVP For Pain 4-10 02/24/20 15:00 03/06/20 14:59 02/29/20 05:06 Multivitamins (Multivitamins W/ Minerals 15ml Liquid) 15 ml DAILY NG 02/27/20 09:00 03/28/20 08:59 03/03/20 09:55 Nitroglycerin (Nitro-Bid) 1 inch DAILY TOPIC 02/29/20 10:00 03/30/20 09:59 03/03/20 09:55 Pantoprazole (Protonix) 40 mg EVERY 12 HOURS IVP 02/25/20 10:00 03/24/20 08:59 03/03/20 09:55 Sorbitol (sorbitoL) 30 ml Q8H PRN NG Constipation 02/28/20 16:15 03/29/20 16:14 02/28/20 17:08 Vancomycin HCl 250 ml @ 166.667 mls/hr Q24H IVPB 03/03/20 12:00 03/08/20 11:59 Vancomycin HCl ([facility] pharmacy to dose) 1 ea DAILY PRN MISC Per rx protocol 02/13/20 11:30 03/14/20 11:29 Anderson Durham MD Mar 03, 2020 12:15
[2020-03-03] MEDS: Vancomycin 1.25gm/250ml Premix IVPB SCH (12:59)
[2020-03-03] MEDS ORDERED: Cefepime HCl 1 GM in D5W 55 ML IVPB ONE (13:00)
--- NOTE | 2020-03-03 13:25 | NUR ---
NURSE NOTES: Dr. pearl notified of patient left hand blisters and dark purple color. she has many blisters around the knuckles and at the palm of the hand, there is open skin around the wrist. wound wrapped with adaptic around the wrist, palm of the hands and over the knuckles. there is scant serosanguineous drainage noted. Dr. Pena called to inform of wound, he will come to assess the patient within the hours.
--- NOTE | 2020-03-03 14:55 | NUR ---
NURSE NOTES: Dr. Pnea at the bedside to assess patient left hands, he ordered to have the hands wrapped in adaptic dressing and cover with abdominal pads, finally wrap with Kerlix. pictures uploaded waiting for the results form the arterial duplex and venous duplex.
--- NOTE | 2020-03-03 15:44 | Diagnostic Imaging Report ---
EXAM: US Duplex Left Upper Extremity Veins CLINICAL HISTORY: DVT TECHNIQUE: Real-time duplex ultrasound scan of the left upper extremity veins integrating B-mode two-dimensional vascular structure, Doppler spectral analysis, color flow Doppler imaging and compression. COMPARISON: No relevant prior studies available. FINDINGS: Deep veins: Unremarkable. No DVT in the visualized internal jugular, subclavian, axillary, brachial, radial, or ulnar veins. The veins demonstrate normal color flow, are normally compressible, with normal phasic flow and/or augmentation response. Superficial veins: Unremarkable. No thrombus in the visualized basilic and cephalic veins. Soft tissues: Diffuse soft tissue edema.. No abnormal fluid collections. IMPRESSION: No evidence of DVT in the visualized venous segments of the left upper extremity.
--- NOTE | 2020-03-03 16:01 | NUR ---
NURSE NOTES: Dr. feliz notified of patient ABG results. she is saturating at 87-89% with respiratory rate of 28-30, patient current setting are ac 22, TV: 550, FIO2 100% and peep of 8. Dr. Feliz ordered to have peep to 12. currently patient is saturating at 99-100%.
[2020-03-03] MEDS ORDERED: Tubing IV Secondary IV ONE ×2 (18:04→18:05)
[2020-03-03] MEDS ORDERED: Sterile Water Irrig 1000ml IRRIG ONE (18:04)
[2020-03-03] MEDS ORDERED: NS 275ml ONE (18:04)
--- NOTE | 2020-03-03 19:40 | NUR ---
NURSE HAND-OFF REPORT: Latest Vital Signs: Temperature 97.5 , Pulse 119 , B/P 161 /88 , Respiratory Rate 30 , O2 SAT 100 , Mechanical Ventilator, O2 Flow Rate . Vital Sign Comment: EKG Rhythm: Sinus Tachycardia Rhythm change?: N Notified?: Jay briceño MD Response: Latest Pineda Fall Score: 50 Fall Risk: High Risk Safety Measures: Call light Within Reach, Bed Alarm Zone 1, Side Rails Side Rails x3, Bed position Low and Locked. Fall Precautions: Door Sign Report given to JO-ANN Carrasco. patient remains on fentanyl drip at 240mcg/min at rate of 24ml/hr. the infusion is running throught a right upper arms picc line. she is sedated at -2 RASS scale. curentlty her tube feeding is running at 40 ml/hr through an OG-tube.
--- NOTE | 2020-03-03 20:00 | NUR ---
NURSE NOTES: Received patient and report from JO-ANN Krueger. Patient is observed resting in bed and noted to opens eyes spontaneously, lightly sedated with a RASS of -2. FLACC score of 5 noted upon assessment. Pt is currently orally intubated ett 7.5 noted to be 25@ lip line. Pt appears to be tolerating current vent settings well. Vent settings as follows: AC 22 TV 550 FiO2 100% PEEP 8 with an O2 saturation of 100% noted. Bilateral lower lobe breath sounds noted to be diminished upon auscultation. Pt noted to be ST on tele monitor with a HR of 117 with elevated SBP. R Upper Arm PICC line noted which remains asymptomatic, intact and patent. Central line dressing remains clean, dry and intact. Fentanyl currently infusing at 240mcg/hr as ordered. Active bowel sounds noted in all four quadrants; abdomen remains large, round and soft. OG Tube noted which remains intact and secured. Glucerna 1.5 currently infusing at 40mL/hr as ordered. Flores catheter noted draining yellow urine to gravity. Diagnostics reviewed at bedside. Skin alterations noted. Bilateral soft wrist restraints remain in place for pt safety. Will provide pt education again with resolution of anxiety in order to assess pt for removal criteria. ROM exercises performed per pt tolerance and CMS remains intact. Fall, Aspiration and Skin precautions observed. Pt repositioned for comfort and safety. Pt remains resting in bed; Bed remains in the lowest position with the safety wheels engaged, call light within reach, side rails up x3 and bed alarm activated. Will continue plan of care. Will continue to monitor.
[2020-03-03] MEDS: Dyna-Hex 2% Top Sol 2oz TOPIC SCH (20:02)
[2020-03-03] MEDS: Methocarbamol 500mg tab ORAL PRN (20:02)
[2020-03-03] MEDS: Morphine Sulfate 2mg/ml Inj(IV/IM USE ONLY) IVP PRN (20:02)
[2020-03-03] MEDS ORDERED: Levemir Flexpen SUBQ SCH (21:00)
[2020-03-04] VITALS (46 sets, daily range): BP systolic 90–173; BP diastolic 45–109
--- NOTE | 2020-03-04 00:52 | Cardiology Progress Note ---
Subjective DATE OF SERVICE: Mar 03, 2020 On isolation for Covid19 Remains orally intubated and on full vent support. BP parameters elevated. 2D Echo reviewed - EF 45%, severe pulmonary hypertension, mild-moderate AV stenosis with ESTHER 1.5cm2 Objective Last 24 Hour Vital Signs Date Time Temp Pulse Resp B/P (MAP) Pulse Ox O2 Delivery O2 Flow Rate FiO2 03/04/20 00:00 100 03/04/20 00:00 Mechanical Ventilator 03/04/20 00:00 98 03/03/20 23:09 85 26 90 Mechanical Ventilator 100 82 30 03/03/20 23:00 100 28 164/92 (116) 99 03/03/20 22:30 104 28 148/85 (106) 99 03/03/20 22:00 104 31 151/100 (117) 99 03/03/20 22:00 27 151/100 Mechanical Ventilator 100 03/03/20 21:30 105 30 169/87 (114) 99 03/03/20 21:00 26 161/94 Mechanical Ventilator 100 03/03/20 21:00 108 33 161/94 (116) 99 03/03/20 20:30 114 33 174/94 (120) 93 03/03/20 20:04 118 177/83 03/03/20 20:03 25 174/83 Mechanical Ventilator 100 03/03/20 20:00 99.4 116 31 177/83 (114) 99 03/03/20 20:00 30 177/83 Mechanical Ventilator 100 03/03/20 20:00 100 03/03/20 20:00 Mechanical Ventilator 03/03/20 19:30 119 30 161/88 (112) 100 03/03/20 19:22 115 36 95 Mechanical Ventilator 100 97 37 03/03/20 19:03 117 03/03/20 19:00 115 32 168/110 (129) 100 03/03/20 18:30 117 28 162/112 (129) 98 03/03/20 18:00 113 24 196/102 (133) 99 03/03/20 17:30 111 38 172/118 (136) 90 03/03/20 17:00 104 24 162/97 (118) 100 03/03/20 16:30 106 28 167/102 (123) 100 03/03/20 16:00 95 03/03/20 16:00 Mechanical Ventilator 03/03/20 16:00 97.5 107 31 160/94 (116) 100 03/03/20 16:00 100 03/03/20 15:48 89 34 100 Mechanical Ventilator 100 92 36 03/03/20 15:30 101 32 168/103 (124) 89 03/03/20 15:00 97 29 163/108 (126) 91 03/03/20 14:30 104 32 165/102 (123) 100 03/03/20 14:00 98 18 151/103 (119) 100 03/03/20 13:30 76 26 139/79 (99) 100 03/03/20 13:00 77 25 140/87 (104) 100 03/03/20 12:30 75 26 130/80 (97) 100 03/03/20 12:00 100 03/03/20 12:00 89 03/03/20 12:00 97.5 90 22 121/77 (92) 100 03/03/20 12:00 Mechanical Ventilator 03/03/20 11:50 85 35 100 Mechanical Ventilator 100 86 33 03/03/20 11:30 92 16 138/90 (106) 100 03/03/20 11:00 103 15 142/90 (107) 100 03/03/20 10:30 115 29 147/96 (113) 100 03/03/20 10:15 100 03/03/20 10:01 102 184/92 03/03/20 10:00 113 28 174/99 (124) 96 03/03/20 10:00 100 03/03/20 09:59 27 184/92 Mechanical Ventilator 100 03/03/20 09:55 184/92 03/03/20 09:30 114 27 157/122 (134) 100 03/03/20 09:15 110 22 143/77 (99) 100 03/03/20 09:00 100.6 131 31 177/163 (168) 99 03/03/20 08:45 128 33 189/93 (125) 98 03/03/20 08:30 120 34 179/90 (119) 100 03/03/20 08:15 121 30 179/92 (121) 100 03/03/20 08:00 101.6 123 29 176/100 (125) 100 03/03/20 08:00 Mechanical Ventilator 03/03/20 08:00 121 12/6/20 08:00 80 03/03/20 07:24 121 33 100 Mechanical Ventilator 60 123 35 03/03/20 07:00 124 30 192/96 (128) 100 03/03/20 07:00 30 192/96 Mechanical Ventilator 80 03/03/20 06:45 118 25 171/77 (108) 100 03/03/20 06:38 120 26 167/68 (101) 99 03/03/20 06:31 124 192/88 03/03/20 06:30 123 32 192/88 (122) 100 03/03/20 06:15 123 32 194/87 (122) 94 03/03/20 06:00 126 37 210/107 (141) 100 03/03/20 06:00 32 210/107 Mechanical Ventilator 80 03/03/20 06:00 204/101 03/03/20 05:30 126 39 204/101 (135) 99 03/03/20 05:00 36 205/107 Mechanical Ventilator 80 03/03/20 05:00 130 36 205/107 (139) 100 03/03/20 04:30 127 24 207/95 (132) 100 03/03/20 04:00 132 03/03/20 04:00 100.8 133 29 202/103 (136) 100 03/03/20 04:00 Mechanical Ventilator 03/03/20 04:00 80 03/03/20 04:00 29 202/103 Mechanical Ventilator 80 03/03/20 03:30 136 37 219/100 (139) 100 03/03/20 03:24 142 36 60 03/03/20 03:00 100.2 139 31 207/99 (135) 100 03/03/20 03:00 31 207/99 Mechanical Ventilator 80 03/03/20 02:45 134 36 180/104 (129) 100 03/03/20 02:45 36 180/104 Mechanical Ventilator 80 03/03/20 02:30 120 21 213/102 (139) 100 03/03/20 02:30 21 213/102 Mechanical Ventilator 80 03/03/20 02:15 24 209/95 Mechanical Ventilator 80 03/03/20 02:07 195/90 03/03/20 02:00 24 209/95 Mechanical Ventilator 80 03/03/20 02:00 113 27 195/90 (125) 100 03/03/20 01:30 111 25 195/97 (129) 100 03/03/20 01:00 24 195/92 Mechanical Ventilator 80 03/03/20 01:00 109 24 195/ (126) 100 HEENT: Orally intubated, Mechanically Ventilated, Thin secretions ET Tube RHYTHM: NSR LUNGS: bilat. rhonchi and rales CARDIAC: systolic murmur - 1/6 at base ABDOMEN: normal bowel sounds, non tender, soft EXTREMITIES: normal range of motion, non-pitting Laboratory Tests Test 03/03/20 08:20 03/03/20 08:56 03/03/20 11:45 03/03/20 12:26 White Blood Count 30.6 K/UL (4.8-10.8) *H Red Blood Count 3.69 M/UL (4.20-5.40) L Hemoglobin 10.2 G/DL (12.0-16.0) L Hematocrit 31.2 % (37.0-47.0) L Mean Corpuscular Volume 84 FL (80-99) Mean Corpuscular Hemoglobin 27.5 PG (27.0-31.0) Mean Corpuscular Hemoglobin Concent 32.6 G/DL (32.0-36.0) Red Cell Distribution Width 19.6 % (11.6-14.8) H Platelet Count 303 K/UL (150-450) Mean Platelet Volume 7.7 FL (6.5-10.1) Neutrophils (%) (Auto) % (45.0-75.0) Lymphocytes (%) (Auto) % (20.0-45.0) Monocytes (%) (Auto) % (1.0-10.0) Eosinophils (%) (Auto) % (0.0-3.0) Basophils (%) (Auto) % (0.0-2.0) Differential Total Cells Counted 100 Neutrophils % (Manual) 91 % (45-75) H Lymphocytes % (Manual) 3 % (20-45) L Monocytes % (Manual) 6 % (1-10) Eosinophils % (Manual) 0 % (0-3) Basophils % (Manual) 0 % (0-2) Band Neutrophils 0 % (0-8) Platelet Estimate Adequate Platelet Morphology Normal Hypochromasia 1+ Anisocytosis 2+ Sodium Level 149 MMOL/L (136-145) H Potassium Level 4.5 MMOL/L (3.5-5.1) Chloride Level 115 MMOL/L (98-107) H Carbon Dioxide Level 29 MMOL/L (21-32) Anion Gap 5 mmol/L (5-15) Blood Urea Nitrogen 52 mg/dL (7-18) H Creatinine 1.5 MG/DL (0.55-1.30) H Estimat Glomerular Filtration Rate 42.9 mL/min (>60) Glucose Level 348 MG/DL (74-106) H Calcium Level 8.4 MG/DL (8.5-10.1) L Arterial Blood pH 7.330 (7.350-7.450) 7.372 (7.350-7.450) Arterial Blood Partial Pressure CO2 56.4 mmHg (35.0-45.0) *H 48.0 mmHg (35.0-45.0) H Arterial Blood Partial Pressure O2 82.5 mmHg (75.0-100.0) 58.9 mmHg (75.0-100.0) L Arterial Blood HCO3 29.1 mmol/L (22.0-26.0) H 27.3 mmol/L (22.0-26.0) H Arterial Blood Oxygen Saturation 95.7 % (95-100) 91.6 % (95-100) L Arterial Blood Base Excess 2.2 (-2-2) H 1.5 (-2-2) Bryna Test Positive Positive POC Whole Blood Glucose Pending Assessment/Plan Assessment/Plan Respiratory failure Covid19 PNA Bacteremia due to lung mass and recurrent pulmonary infections. + risk for endocarditis, but increased risk for PORFIRIO. Acute TX Ac/chronic diastolic CHF Lung mass - prior benign biopsy Pneumonia with cavitation Mild-mod degenerative aortic stenosis Acute renal failure Pulmonary hypertension (est PAsyst 58mmHg) Hypertension with labile BP range. Anemia Dehydration/hypernatremia corrected IRDM with elevated glucose. Sinus bradycardia on beta rusty rx. Dehydration/hypernatremia Meds updated - BP rx advanced ICU logs and care plan reviewed Evans Trinidad MD Mar 04, 2020 00:52
[2020-03-04] MEDS: Cefepime HCl 1 GM in D5W 55 ML IVPB SCH ×2 (01:21→23:42)
--- NOTE | 2020-03-04 02:00 | NUR ---
NURSE NOTES: Bedside assessment performed, assessed pt for pain with a FLACC score of 0 noted. Afberile.Pt remains free from s/sx of acute cardiopulmonary distress at this time. Oral care and suctioning provided for excess secretions. RT present at bedside performing pt care. Pt tolerated care well and remains clean and dry. Fentanyl continues to infuse without incident with a RASS score of -2 noted. Pt repositioned for safety and comfort. Fall, Aspiration and Skin precautions observed. Pt remains resting in bed; Bed remains in the lowest position with the safety wheels engaged, call light within reach, side rails up x3 and bed alarm activated. Will continue plan of care. Will continue to monitor.
[2020-03-04] MEDS: Ipratropium Bromide Inhaler INH SCH ×6 (03:24→22:53)
--- NOTE | 2020-03-04 04:00 | NUR ---
NURSE NOTES: Bedside assessment performed, assessed pt for pain with a FLACC score of 0 noted. Pt remains free from s/sx of acute cardiopulmonary distress at this time. Oral care and suctioning provided for excess secretions. Pt provided with a complete bed bath and linen change. Pt noted to have brown formed stool. Pt tolerated care well and remains clean and dry. Fentanyl continues to infuse at 240mcg/hr without incident with a RASS score of -2 noted. Pt repositioned for safety and comfort. Fall, Aspiration and Skin precautions observed. Pt remains resting in bed; Bed remains in the lowest position with the safety wheels engaged, call light within reach, side rails up x3 and bed alarm activated. Will continue plan of care. Will continue to monitor.
--- NOTE | 2020-03-04 06:00 | NUR ---
NURSE NOTES: Bedside assessment performed, assessed pt for pain with a FLACC score of 0 noted. Pt remains free from s/sx of acute cardiopulmonary distress at this time. Oral care and suctioning provided for excess secretions. Fentanyl continues to infuse at 240mcg/hr without incident with a RASS score of -2 noted. Pt repositioned for safety and comfort. Fall, Aspiration and Skin precautions observed. Pt remains resting in bed; Bed remains in the lowest position with the safety wheels engaged, call light within reach, side rails up x3 and bed alarm activated. Will continue plan of care. Will continue to monitor.
[2020-03-04] MEDS: NovoLOG Insulin Flexpen SUBQ SCH ×4 (06:06→17:42)
[2020-03-04] MEDS: fentaNYL 2500mcg/NS 250ml 250 ML IV SCH ×2 (06:18→16:34)
--- NOTE | 2020-03-04 07:05 | NUR ---
HAND-OFF: Report given to Kaylee BUSCH.
[2020-03-04 07:21] LABS: BLOOD UREA NITROGEN 57 mg/dL (7-18); CALCIUM 9.1 MG/DL (8.5-10.1); CHLORIDE 113 MMOL/L (98-107); CREATININE 1.4 MG/DL (0.55-1.30); POTASSIUM 3.7 MMOL/L (3.5-5.1); SODIUM 151 MMOL/L (136-145)
--- NOTE | 2020-03-04 07:30 | NUR ---
NURSE NOTES: Pt was assessed after receiving change of shift report from Danilo BUSCH. Pt is sedated RASS score of -2 light sedation while on Fentanyl drip at 240mcg/hr infusing via right upper arm double lumen PICC line. Orally intubated, ETT 7.5 at 25cm lipline with vent settings AC22, VT550, Peep 12, FIO2 100% with O2Sat at 100%. Bilateral rales noted on auscultation. 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 Temp 99F rectal. Pt is maintained on cooling blanket to regulate body temperature. OGT with Glucerna 1.2 is infusing at 50ml/hour; residual noted=50ml. OGT was flushed with 150ml/water per order. Flores catheter is present, draining clear/yellow urine. Skin alterations noted on sacral and upper extremities. Pt is on pressure release mattress. Bilateral soft wrist restrains are present to prevent self/extubation as pt remains impulsive, reaching for ETT even while -2 RASS score. Skin/vascular integrity at restraint site remains within normal limits. HOB at 30degrees, bed locked, three side rails up, and call light is within reach. Will continue to monitor pt and follow plan of care per MD orders and protocol.
[2020-03-04 07:31] LABS: HEMATOCRIT 31.4 % (37.0-47.0); MEAN CORPUSCULAR VOLUME 87 FL (80-99); PLATELET COUNT 250 K/UL (150-450); RED BLOOD COUNT 3.61 M/UL (4.20-5.40); RED CELL DISTRIBUTION WIDTH 19.3 % (11.6-14.8)
[2020-03-04 07:33] LABS: WHITE BLOOD COUNT 23.5 K/UL (4.8-10.8)
[2020-03-04 07:43] LABS: CARBON DIOXIDE 28 MMOL/L (21-32)
--- NOTE | 2020-03-04 08:10 | Critical Care Progress Note ---
Assessment/Plan Assessment/Plan IMPRESSION acute respiratory failure/ now on vent leukocytosis, possibly exacerbated by steroids sepsis ARF toxic met encephalopathy COPD DM poor control cavitary lesion negative AFB groundglass infiltrates NSTEMI severe PCM hypertension left shoulder pain bacteremia MRSA hematuria COVID anemia diabetes s/p respiratory code hypernatremia edema PLAN lasix with caution ? dc monitor sodium levels DVT prophylaxis monitor HH antibiotics per ID titrate BP meds - increase beta rusty as needed vent support- taper oxygen as able monitor acid base NGT and feeds monitor lytes maintain support- via vent and change to volume ventilation monitor LOC critical at present maintain sedation adjust insulin and monitor sugars medications/laboratory data/nursing notes/ICU care reviewed in detail note reviewed and edited care discussed with RN and RT ICU time spent >40 minutes Critical Care - Subjective Interval Events: events noted family updated on vent sats improved renal function better vitals better ROS Limited/Unobtainable: Yes Condition: critical EKG Rhythm: Sinus Tachycardia Residuals: minimal Tube Feeding Tolerated: yes I&O: Intake and Output 03/03/20 03/04/20 18:59 06:59 Intake Total 970.857 ml 1218 ml Output Total 1265 ml 1425 ml Balance -294.143 ml -207 ml Free Water 20 ml 295 ml IV Total 530.857 ml 343 ml Tube Feeding 380 ml 570 ml Other 40 ml 10 ml Output Urine Total 1265 ml 1425 ml # Bowel Movements 2 Critical Care - Objective ET-Tube: 7.5 ET Position: 25 Last 24 Hour Vital Signs Date Time Temp Pulse Resp B/P (MAP) Pulse Ox O2 Delivery O2 Flow Rate FiO2 03/04/20 08:00 22 127/67 Mechanical Ventilator 100 03/04/20 07:00 22 126/80 Mechanical Ventilator 100 03/04/20 07:00 106 22 150/89 (109) 99 03/04/20 06:30 98 22 112/73 (86) 100 03/04/20 06:18 22 148/83 Mechanical Ventilator 100 03/04/20 06:00 26 156/89 Mechanical Ventilator 100 03/04/20 06:00 101 21 146/83 (104) 100 03/04/20 05:30 101 26 156/84 (108) 100 03/04/20 05:00 101 26 154/80 (104) 100 03/04/20 05:00 26 128/76 Mechanical Ventilator 100 03/04/20 04:30 95 17 120/70 (87) 100 03/04/20 04:00 103 03/04/20 04:00 96.8 95 22 127/81 (96) 100 03/04/20 04:00 26 156/86 Mechanical Ventilator 100 03/04/20 04:00 Mechanical Ventilator 03/04/20 04:00 100 03/04/20 03:30 96 23 135/76 (95) 98 03/04/20 03:24 98 25 87 Mechanical Ventilator 100 96 26 03/04/20 03:00 102 26 149/91 (110) 98 03/04/20 03:00 25 149/91 Mechanical Ventilator 100 03/04/20 02:30 103 25 133/79 (97) 98 03/04/20 02:00 25 144/85 Mechanical Ventilator 100 03/04/20 02:00 95 26 144/85 (104) 98 03/04/20 01:30 94 34 161/100 (120) 97 03/04/20 01:20 106 144/107 03/04/20 01:00 101 30 144/107 (119) 96 03/04/20 01:00 26 144/107 Mechanical Ventilator 100 03/04/20 00:30 102 29 154/100 (118) 96 03/04/20 00:00 100 03/04/20 00:00 Mechanical Ventilator 03/04/20 00:00 98 03/04/20 00:00 22 146/109 Mechanical Ventilator 100 03/04/20 00:00 97.0 96 25 146/109 (121) 96 03/03/20 23:30 99 30 165/97 (119) 98 03/03/20 23:09 85 26 90 Mechanical Ventilator 100 82 30 03/03/20 23:00 100 28 164/92 (116) 99 03/03/20 23:00 28 164/92 Mechanical Ventilator 100 03/03/20 22:30 104 28 148/85 (106) 99 03/03/20 22:00 104 31 151/100 (117) 99 03/03/20 22:00 27 151/100 Mechanical Ventilator 100 03/03/20 21:30 105 30 169/87 (114) 99 03/03/20 21:00 26 161/94 Mechanical Ventilator 100 03/03/20 21:00 108 33 161/94 (116) 99 03/03/20 20:30 114 33 174/94 (120) 93 03/03/20 20:04 118 177/83 03/03/20 20:03 25 174/83 Mechanical Ventilator 100 03/03/20 20:00 99.4 116 31 177/83 (114) 99 03/03/20 20:00 30 177/83 Mechanical Ventilator 100 03/03/20 20:00 100 03/03/20 20:00 Mechanical Ventilator 03/03/20 19:30 119 30 161/88 (112) 100 03/03/20 19:22 115 36 95 Mechanical Ventilator 100 97 37 03/03/20 19:03 117 03/03/20 19:00 115 32 168/110 (129) 100 03/03/20 18:30 117 28 162/112 (129) 98 03/03/20 18:00 113 24 196/102 (133) 99 03/03/20 17:30 111 38 172/118 (136) 90 03/03/20 17:00 104 24 162/97 (118) 100 03/03/20 16:30 106 28 167/102 (123) 100 03/03/20 16:00 95 03/03/20 16:00 Mechanical Ventilator 03/03/20 16:00 97.5 107 31 160/94 (116) 100 03/03/20 16:00 100 03/03/20 15:48 89 34 100 Mechanical Ventilator 100 92 36 03/03/20 15:30 101 32 168/103 (124) 89 03/03/20 15:00 97 29 163/108 (126) 91 03/03/20 14:30 104 32 165/102 (123) 100 03/03/20 14:00 98 18 151/103 (119) 100 03/03/20 13:30 76 26 139/79 (99) 100 03/03/20 13:00 77 25 140/87 (104) 100 03/03/20 12:30 75 26 130/80 (97) 100 03/03/20 12:00 100 03/03/20 12:00 89 03/03/20 12:00 97.5 90 22 121/77 (92) 100 03/03/20 12:00 Mechanical Ventilator 03/03/20 11:50 85 35 100 Mechanical Ventilator 100 86 33 03/03/20 11:30 92 16 138/90 (106) 100 03/03/20 11:00 103 15 142/90 (107) 100 03/03/20 10:30 115 29 147/96 (113) 100 03/03/20 10:15 100 03/03/20 10:01 102 184/92 03/03/20 10:00 113 28 174/99 (124) 96 03/03/20 10:00 100 03/03/20 09:59 27 184/92 Mechanical Ventilator 100 03/03/20 09:55 184/92 03/03/20 09:30 114 27 157/122 (134) 100 03/03/20 09:15 110 22 143/77 (99) 100 03/03/20 09:00 100.6 131 31 177/163 (168) 99 03/03/20 08:45 128 33 189/93 (125) 98 03/03/20 08:30 120 34 179/90 (119) 100 03/03/20 08:15 121 30 179/92 (121) 100 Labs: Laboratory Tests 03/03/20 08:20: White Blood Count 30.6*H, Red Blood Count 3.69L, Hemoglobin 10.2L, Hematocrit 31.2L, Mean Corpuscular Volume 84, Mean Corpuscular Hemoglobin 27.5, Mean Corpuscular Hemoglobin Concent 32.6, Red Cell Distribution Width 19.6H, Platelet Count 303, Mean Platelet Volume 7.7, Neutrophils (%) (Auto) , Lymphocytes (%) (Auto) , Monocytes (%) (Auto) , Eosinophils (%) (Auto) , Basophils (%) (Auto) , Differential Total Cells Counted 100, Neutrophils % (Manual) 91H, Lymphocytes % (Manual) 3L, Monocytes % (Manual) 6, Eosinophils % (Manual) 0, Basophils % (Manual) 0, Band Neutrophils 0, Platelet Estimate Adequate, Platelet Morphology Normal, Hypochromasia 1+, Anisocytosis 2+, Sodium Level 149H, Potassium Level 4.5, Chloride Level 115H, Carbon Dioxide Level 29, Anion Gap 5, Blood Urea Nitrogen 52H, Creatinine 1.5H, Estimat Glomerular Filtration Rate 42.9, Glucose Level 348H, Calcium Level 8.4L 03/03/20 08:56: Arterial Blood pH 7.330L, Arterial Blood Partial Pressure CO2 56.4*H, Arterial Blood Partial Pressure O2 82.5, Arterial Blood HCO3 29.1H, Arterial Blood Oxygen Saturation 95.7, Arterial Blood Base Excess 2.2H, Bryan Test Positive 03/03/20 11:45: Arterial Blood pH 7.372, Arterial Blood Partial Pressure CO2 48.0H, Arterial Blood Partial Pressure O2 58.9L, Arterial Blood HCO3 27.3H, Arterial Blood Oxygen Saturation 91.6L, Arterial Blood Base Excess 1.5, Bryan Test Positive 03/03/20 12:26: POC Whole Blood Glucose [Pending] 03/04/20 05:00: White Blood Count 23.5*H, Red Blood Count 3.61L, Hemoglobin 10.0L, Hematocrit 31.4L, Mean Corpuscular Volume 87, Mean Corpuscular Hemoglobin 27.8, Mean Corpuscular Hemoglobin Concent 32.0, Red Cell Distribution Width 19.3H, Platelet Count 250, Mean Platelet Volume 8.3, Neutrophils (%) (Auto) , Lymphocytes (%) (Auto) , Monocytes (%) (Auto) , Eosinophils (%) (Auto) , Basophils (%) (Auto) , Neutrophils % (Manual) [Pending], Lymphocytes % (Manual) [Pending], Platelet Estimate [Pending], Platelet Morphology [Pending], Sodium Level 151H, Potassium Level 3.7, Chloride Level 113H, Carbon Dioxide Level 28, Blood Urea Nitrogen 57H , Creatinine 1.4H, Estimat Glomerular Filtration Rate 46.5, Glucose Level 249#H, Calcium Level 9.1 Objective: deferred due to COVID Micro: Microbiology Date/Time Source Procedure Growth Status 03/03/20 16:30 Blood Blood Culture - Preliminary Resulted Accucheck: 286 Germán Feliz MD Mar 04, 2020 08:10
[2020-03-04] MEDS: Heparin 5000 units/ml inj SUBQ SCH ×3 (08:47→20:52)
--- NOTE | 2020-03-04 09:18 | NUR ---
RADIOLOGY NOTE: PORTABLE CHEST X-RAY COMPLETED AT 0800 HRS. FA
--- NOTE | 2020-03-04 09:30 | NUR ---
NURSE NOTES: AM meds were administered. Oral care was done. Pt was repositioned for comfort.
--- NOTE | 2020-03-04 09:50 | NUR ---
NURSE NOTES: FIO2 was titrated down to 85% post ABG results.
[2020-03-04] MEDS: Metoprolol Tartrate 100mg tab NG SCH ×2 (09:51→20:53)
[2020-03-04] MEDS: Multivitamins W/Minerals 15 ML UDC NG SCH (09:51)
[2020-03-04] MEDS: Aspirin Baby 81mg NG SCH (09:51)
[2020-03-04] MEDS: Pantoprazole Inj IVP SCH ×2 (09:52→20:52)
[2020-03-04] MEDS: Nitroglycerin 2% oint pkt TOPIC SCH (09:54)
--- NOTE | 2020-03-04 10:00 | NUR ---
NURSE NOTES: Dr Lopez is at the nurse's station. MD notified regarding microbiology new report on blood culture results.
[2020-03-04] MEDS: Levemir Flexpen SUBQ SCH ×2 (10:26→21:00)
--- NOTE | 2020-03-04 10:29 | Diagnostic Imaging Report ---
Procedure: XRAY Chest 1v Reason for study: Reason For Exam: SOB Comparison films: 03/03/2020. FINDINGS: Endotracheal tube and NG tube remain in place. Right PICC line also unchanged. Bilateral alveolar densities are unchanged. Cardiac and mediastinal silhouette are within normal limits. CP angles are sharp. The bony thorax appear unremarkable. IMPRESSION: NO SIGNIFICANT CHANGE COMPARED TO PREVIOUS EXAM.
[2020-03-04] MEDS: Midazolam for drip 50 MG in NS 90 ML IV PRN (10:45)
--- NOTE | 2020-03-04 10:45 | NUR ---
NURSE NOTES: Versed drip started per MD order, to add as concurrent sedation therapy, since pt is restless +2 RASS score; starting rate at rate of 1mg/hr. Fentanyl rate was titrated up to 280mcg/hr to reach -2 light sedation.
--- NOTE | 2020-03-04 11:21 | Infectious Diseases Prog Note ---
Assessment/Plan Assessment/Plan antibiotics : vancomycin iv, cefepime A 1. MRSA cavitary pneumonia 2. MRSA sepsis r/o endocarditis 3. diabetes mellitus 4. hypertension 5. COPD 6. respiratory failure 7. aortic stenosis 8. COVID 19 pneumonia on 70 percent FiO2,saturation 99 % s/p ivermectin 11.27.20 s/p remdesivir 9, leucocytosis likely secondary to steroids improving 10. r/o TB + AFB in sputum from 11.2.20 P 1. continue iv vancomycin 10 more days 2. continue cefepime 3. continue decadron 4. start isoniazid, rifampin, PZA, ethambutol, pyridoxine 5. will follow up cultures 6. continue isolation Subjective ROS Limited/Unobtainable: Yes Allergies: Coded Allergies: No Known Allergies (Unverified , 07/30/15) Objective Last 24 Hour Vital Signs Date Time Temp Pulse Resp B/P (MAP) Pulse Ox O2 Delivery O2 Flow Rate FiO2 03/04/20 10:45 30 Mechanical Ventilator 10.0 85 03/04/20 10:15 30 171/88 Mechanical Ventilator 85 03/04/20 10:00 33 192/109 Mechanical Ventilator 85 03/04/20 09:54 127/67 03/04/20 09:51 89 127/67 03/04/20 09:51 89 127/67 03/04/20 09:00 20 151/73 Mechanical Ventilator 100 03/04/20 08:00 22 127/67 Mechanical Ventilator 100 03/04/20 07:28 89 25 87 Mechanical Ventilator 100 89 26 03/04/20 07:00 22 126/80 Mechanical Ventilator 100 03/04/20 07:00 106 22 150/89 (109) 99 03/04/20 06:30 98 22 112/73 (86) 100 03/04/20 06:18 22 148/83 Mechanical Ventilator 100 03/04/20 06:00 26 156/89 Mechanical Ventilator 100 03/04/20 06:00 101 21 146/83 (104) 100 03/04/20 05:30 101 26 156/84 (108) 100 03/04/20 05:00 101 26 154/80 (104) 100 03/04/20 05:00 26 128/76 Mechanical Ventilator 100 03/04/20 04:30 95 17 120/70 (87) 100 03/04/20 04:00 103 03/04/20 04:00 96.8 95 22 127/81 (96) 100 03/04/20 04:00 26 156/86 Mechanical Ventilator 100 03/04/20 04:00 Mechanical Ventilator 03/04/20 04:00 100 03/04/20 03:30 96 23 135/76 (95) 98 03/04/20 03:24 98 25 87 Mechanical Ventilator 100 96 26 03/04/20 03:00 102 26 149/91 (110) 98 03/04/20 03:00 25 149/91 Mechanical Ventilator 100 03/04/20 02:30 103 25 133/79 (97) 98 03/04/20 02:00 25 144/85 Mechanical Ventilator 100 03/04/20 02:00 95 26 144/85 (104) 98 03/04/20 01:30 94 34 161/100 (120) 97 03/04/20 01:20 106 144/107 03/04/20 01:00 101 30 144/107 (119) 96 03/04/20 01:00 26 144/107 Mechanical Ventilator 100 03/04/20 00:30 102 29 154/100 (118) 96 03/04/20 00:00 100 03/04/20 00:00 Mechanical Ventilator 03/04/20 00:00 98 03/04/20 00:00 22 146/109 Mechanical Ventilator 100 03/04/20 00:00 97.0 96 25 146/109 (121) 96 03/03/20 23:30 99 30 165/97 (119) 98 03/03/20 23:09 85 26 90 Mechanical Ventilator 100 82 30 03/03/20 23:00 100 28 164/92 (116) 99 03/03/20 23:00 28 164/92 Mechanical Ventilator 100 03/03/20 22:30 104 28 148/85 (106) 99 03/03/20 22:00 104 31 151/100 (117) 99 03/03/20 22:00 27 151/100 Mechanical Ventilator 100 03/03/20 21:30 105 30 169/87 (114) 99 03/03/20 21:00 26 161/94 Mechanical Ventilator 100 03/03/20 21:00 108 33 161/94 (116) 99 03/03/20 20:30 114 33 174/94 (120) 93 03/03/20 20:04 118 177/83 03/03/20 20:03 25 174/83 Mechanical Ventilator 100 03/03/20 20:00 99.4 116 31 177/83 (114) 99 03/03/20 20:00 30 177/83 Mechanical Ventilator 100 03/03/20 20:00 100 03/03/20 20:00 Mechanical Ventilator 03/03/20 19:30 119 30 161/88 (112) 100 03/03/20 19:22 115 36 95 Mechanical Ventilator 100 97 37 03/03/20 19:03 117 03/03/20 19:00 115 32 168/110 (129) 100 03/03/20 18:30 117 28 162/112 (129) 98 03/03/20 18:00 113 24 196/102 (133) 99 03/03/20 17:30 111 38 172/118 (136) 90 03/03/20 17:00 104 24 162/97 (118) 100 03/03/20 16:30 106 28 167/102 (123) 100 03/03/20 16:00 95 03/03/20 16:00 Mechanical Ventilator 03/03/20 16:00 97.5 107 31 160/94 (116) 100 03/03/20 16:00 100 03/03/20 15:48 89 34 100 Mechanical Ventilator 100 92 36 03/03/20 15:30 101 32 168/103 (124) 89 03/03/20 15:00 97 29 163/108 (126) 91 03/03/20 14:30 104 32 165/102 (123) 100 03/03/20 14:00 98 18 151/103 (119) 100 03/03/20 13:30 76 26 139/79 (99) 100 03/03/20 13:00 77 25 140/87 (104) 100 03/03/20 12:30 75 26 130/80 (97) 100 03/03/20 12:00 100 03/03/20 12:00 89 03/03/20 12:00 97.5 90 22 121/77 (92) 100 03/03/20 12:00 Mechanical Ventilator 03/03/20 11:50 85 35 100 Mechanical Ventilator 100 86 33 03/03/20 11:30 92 16 138/90 (106) 100 Height (Feet): 5 Height (Inches): 1.00 Weight (Pounds): 168 HEENT: other - intubated Microbiology Date/Time Source Procedure Growth Status 03/03/20 16:30 Blood Blood Culture - Preliminary Resulted Laboratory Tests Test 03/03/20 11:45 03/03/20 12:26 03/04/20 05:00 03/04/20 08:39 Arterial Blood pH 7.372 (7.350-7.450) 7.352 (7.350-7.450) Arterial Blood Partial Pressure CO2 48.0 mmHg (35.0-45.0) H 51.6 mmHg (35.0-45.0) H Arterial Blood Partial Pressure O2 58.9 mmHg (75.0-100.0) L 168.9 mmHg (75.0-100.0) H Arterial Blood HCO3 27.3 mmol/L (22.0-26.0) H 28.0 mmol/L (22.0-26.0) H Arterial Blood Oxygen Saturation 91.6 % (95-100) L 98.6 % (95-100) Arterial Blood Base Excess 1.5 (-2-2) 1.9 (-2-2) Bryan Test Positive Positive POC Whole Blood Glucose Pending White Blood Count 23.5 K/UL (4.8-10.8) *H Red Blood Count 3.61 M/UL (4.20-5.40) L Hemoglobin 10.0 G/DL (12.0-16.0) L Hematocrit 31.4 % (37.0-47.0) L Mean Corpuscular Volume 87 FL (80-99) Mean Corpuscular Hemoglobin 27.8 PG (27.0-31.0) Mean Corpuscular Hemoglobin Concent 32.0 G/DL (32.0-36.0) Red Cell Distribution Width 19.3 % (11.6-14.8) H Platelet Count 250 K/UL (150-450) Mean Platelet Volume 8.3 FL (6.5-10.1) Neutrophils (%) (Auto) % (45.0-75.0) Lymphocytes (%) (Auto) % (20.0-45.0) Monocytes (%) (Auto) % (1.0-10.0) Eosinophils (%) (Auto) % (0.0-3.0) Basophils (%) (Auto) % (0.0-2.0) Differential Total Cells Counted 100 Neutrophils % (Manual) 86 % (45-75) H Lymphocytes % (Manual) 1 % (20-45) L Monocytes % (Manual) 1 % (1-10) Eosinophils % (Manual) 0 % (0-3) Basophils % (Manual) 0 % (0-2) Band Neutrophils 12 % (0-8) H Platelet Estimate Adequate Platelet Morphology Normal Hypochromasia 1+ Anisocytosis 2+ Sodium Level 151 MMOL/L (136-145) H Potassium Level 3.7 MMOL/L (3.5-5.1) Chloride Level 113 MMOL/L (98-107) H Carbon Dioxide Level 28 MMOL/L (21-32) Blood Urea Nitrogen 57 mg/dL (7-18) H Creatinine 1.4 MG/DL (0.55-1.30) H Estimat Glomerular Filtration Rate 46.5 mL/min (>60) Glucose Level 249 MG/DL (74-106) #H Calcium Level 9.1 MG/DL (8.5-10.1) Current Medications Medications (Trade) Dose Ordered Sig/Ivana Route PRN Reason Start Time Stop Time Status Last Admin Dose Admin Acetaminophen (Tylenol) 650 mg EVERY 6 HOURS PRN NG Mild Pain (Pain Scale 1-3) 02/27/20 07:45 03/28/20 07:44 03/03/20 03:06 Amlodipine Besylate (Norvasc) 5 mg DAILY NG 03/04/20 09:00 04/03/20 08:59 03/04/20 09:51 Aspirin (ASA) 81 mg DAILY NG 02/27/20 09:00 03/30/20 08:59 03/04/20 09:51 Cefepime HCl 1 gm/ Dextrose 55 ml @ 110 mls/hr Q24H IVPB 03/04/20 01:00 03/11/20 00:59 03/04/20 01:21 Chlorhexidine Gluconate (Divina-Hex 2%) 1 applic DAILY@1999 TOPIC 02/26/20 20:00 05/26/20 19:59 03/03/20 20:02 Clonidine HCl (Catapres Tab) 0.1 mg Q4H PRN ORAL SBP > 150mmHg 02/06/20 07:00 05/06/20 06:59 03/03/20 06:00 Dexamethasone Sodium Phosphate (Decadron 4mg/ml vial) 6 mg Q24H IVP 03/02/20 12:00 03/11/20 12:01 03/03/20 12:59 Dextrose (Dextrose 50%) 25 ml Q30M PRN IV Hypoglycemia 01/28/20 22:45 04/27/20 22:44 Dextrose (Dextrose 50%) 50 ml Q30M PRN IV Hypoglycemia 01/28/20 22:45 04/27/20 22:44 Epoetin Haseeb (Epoetin Haseeb-EPBX(NON ESRD)) 8,000 unit WED-WED-WED SUBQ 02/05/20 21:00 05/05/20 20:59 03/01/20 21:06 Fentanyl Citrate 250 ml @ 1 mls/hr Q24H IV 02/29/20 15:00 03/06/20 14:59 03/04/20 06:18 Furosemide (Lasix) 20 mg EVERY 12 HOURS IV 03/01/20 21:00 03/31/20 20:59 03/04/20 09:52 Guaifenesin/ Dextromethorphan (Robitussin DM Syrup) 15 ml Q4H PRN ORAL For Cough 02/12/20 16:53 05/12/20 16:52 02/19/20 22:21 Heparin Sodium (Porcine) (Heparin 5000 units/ml) 5,000 units EVERY 12 HOURS SUBQ 02/28/20 21:00 04/13/20 20:59 03/04/20 09:53 Hydralazine HCl (Apresoline) 25 mg Q6H PRN ORAL SBP above 150 02/27/20 23:15 05/27/20 23:14 03/03/20 02:07 Insulin Aspart (NovoLOG) Q6HR SUBQ 01/29/20 00:00 04/28/20 00:00 03/04/20 06:06 Insulin Detemir (Levemir) 15 units EVERY 12 HOURS SUBQ 03/04/20 09:00 05/30/20 08:59 03/04/20 10:26 Ipratropium Marshall (Atrovent Inh) 1 puffs Q4HRT INH 02/28/20 15:00 03/19/20 17:59 03/04/20 07:35 Lidocaine (Lidoderm 5% PATCH) 1 patch DAILY TDERMAL 02/11/20 09:30 05/11/20 09:29 03/04/20 09:55 Methocarbamol (Robaxin) 500 mg Q8H PRN ORAL muscle spasm 02/11/20 09:30 03/12/20 09:29 03/03/20 20:02 Metoprolol Tartrate (Lopressor) 100 mg Q12HR NG 03/03/20 10:00 05/04/20 09:59 03/04/20 09:51 Midazolam HCl 50 mg/Sodium Chloride 100 ml @ 0 mls/hr Q24H PRN IV SEDATION 02/29/20 07:30 03/06/20 14:59 03/04/20 10:45 Morphine Sulfate (Morphine Sulfate) 2 mg Q2H PRN IVP For Pain 4-10 02/24/20 15:00 03/06/20 14:59 03/03/20 20:02 Multivitamins (Multivitamins W/ Minerals 15ml Liquid) 15 ml DAILY NG 02/27/20 09:00 03/28/20 08:59 03/04/20 09:51 Nitroglycerin (Nitro-Bid) 1 inch DAILY TOPIC 02/29/20 10:00 03/30/20 09:59 03/04/20 09:54 Pantoprazole (Protonix) 40 mg EVERY 12 HOURS IVP 02/25/20 10:00 03/24/20 08:59 03/04/20 09:52 Sorbitol (sorbitoL) 30 ml Q8H PRN NG Constipation 02/28/20 16:15 03/29/20 16:14 02/28/20 17:08 Vancomycin HCl 250 ml @ 166.667 mls/hr Q24H IVPB 03/03/20 12:00 03/08/20 11:59 03/03/20 12:59 Vancomycin HCl (Vanco pharmacy to dose) 1 ea DAILY PRN MISC Per rx protocol 02/13/20 11:30 03/14/20 11:29 Messi Lopez MD Mar 04, 2020 11:21
--- NOTE | 2020-03-04 12:30 | NUR ---
NURSE NOTES: Pt remains RASS score of -2 light sedation, however Versed and Fentanyl drip rates were both titrated down since pt's BP dropped too rapidly. Pt remains on cooling blanket to regulate body temps. Oral care was done. Pt was repositioned for comfort.
[2020-03-04] MEDS: Vancomycin 1.25gm/250ml Premix IVPB SCH (13:39)
[2020-03-04] MEDS: Isoniazid 300mg tab ORAL SCH (13:39)
[2020-03-04] MEDS: Pyridoxine 50mg tab ORAL SCH (13:40)
--- NOTE | 2020-03-04 14:00 | NUR ---
NURSE NOTES: Pt's daughter contacted the nurse's station and was updated on pt's current status.
--- NOTE | 2020-03-04 15:00 | NUR ---
NURSE NOTES: Pt remains -2 light sedation on RASS score, however Versed and Fentanyl drips are being titrated down to maintain stable BP.
--- NOTE | 2020-03-04 16:34 | NUR ---
NURSE NOTES: Fentanyl bag is empty and was replaced with new bag dispensed from the pharmacy. New Fentanyl bag was scanned and started at rate of 200mcg/hr since pt is currently also on Versed drip at 2mg/hr, remains -2 light sedation per RASS score.
--- NOTE | 2020-03-04 17:11 | Consultation ---
History of Present Illness General Date patient seen: Mar 04, 2020 Reason for Hospitalization: Altered Level of Consciousness Present Illness HPI 59F currently in ICU on support required restraints for some time given sever agitation and very difficult to keep comfortable. now noted to have multiple abrasions and blisters on hands and wrist. surgery called toe valuate. patient unable to participate in exam. chart reviewed. Allergies: Coded Allergies: No Known Allergies (Unverified , 07/30/15) COVID-19 Screening Contact w/high risk pt: No Recent Travel to affected area: No Experienced COVID-19 symptoms?: Yes Coronavirus symptoms experienc: Fever (T>100.4F or >38C), Fatigue, Cough, Nausea/Vomiting, Diarrhea Medication History Scheduled Amlodipine Besylate (Norvasc), 10 MG ORAL DAILY Atenolol* (Tenormin*), 25 MG ORAL BID, (Reported) Doxazosin Mesylate* (Cardura*), 4 MG ORAL DAILY, (Reported) Gabapentin* (Gabapentin*), 600 MG ORAL THREE TIMES A DAY Hydrochlorothiazide* (Hydrochlorothiazide*), 25 MG ORAL DAILY, (Reported) Scheduled PRN Diazepam* (Valium*), 5 MG ORAL TID PRN for For Pain Hydrocodone Bit/Acetaminophen 5-325* (Burt 5-325 Tablet*), 1 TAB ORAL Q4H PRN for FOR PAIN Ibuprofen* (Motrin*), 600 MG ORAL Q6H PRN for FOR PAIN Meclizine Hcl (Meclizine Hcl), 25 MG ORAL THREE TIMES A DAY PRN for for dizziness Tramadol Hcl* (Ultram*), 50 MG ORAL Q6H PRN for For Pain Miscellaneous Medications Hum Insulin Nph/Reg Insulin Hm (Novolin 70-30 100 Unit/Ml Vial), (Reported) Patient History Limited by: medical condition History Provided By: Medical Record, PMD Healthcare decision maker Resuscitation status Advanced Directive on File Past Medical/Surgical History Past Medical/Surgical History: (1) Left shoulder strain (2) Enteritis (3) Cellulitis, leg (4) Chronic hip pain (5) Constipation (6) Fatty liver (7) Low back pain (8) Hyperglycemia (9) Neck strain (10) Painful diabetic neuropathy (11) Back pain (12) UTI (urinary tract infection) (13) Neuropathy (14) Diabetes mellitus (15) Hyperlipemia (16) Hypertension (17) Asthma (18) Bronchitis (19) URI (upper respiratory infection) (20) Gastritis (21) Abnormal LFTs (22) Hyperglycemia (23) Renal insufficiency (24) Hypotension (25) Hypokalemia (26) Dizziness of unknown cause (27) Dizziness (28) Renal insufficiency (29) Abdominal pain (30) Hypertension (31) Dizziness (32) Lung mass (33) Lung mass (34) Chest pain (35) COPD exacerbation (36) Trapezius muscle spasm (37) Rotator cuff impingement syndrome of right shoulder (38) Neck pain (39) Pain (40) CHF (congestive heart failure) (41) Hyperglycemia (42) SVT (supraventricular tachycardia) (43) Sepsis (44) Pneumonia (45) JC (acute kidney injury) (46) Febrile illness (47) Hypertensive urgency (48) Elevated d-dimer Review of Systems Review of Symptoms -S-i-p-e-r-a-l- -R-O-S-:- -n-o- -k-i-i-g-h-t- -l-o-s-s- -o-r- -f-e-v-e-r- -W-j-o-m-n-o-k-d-t-i-c-a-l- -R-O-S-:- -n-o- -i-u-l-k-t-g-s-i-o-n- -o-r- -m-o-o-d- -d-j-r-n-g-e-s-,- -n-o- -u-i-b-o-r-y- -l-o-s-s- -L-w-l-q-d-q-l-m-i-c- -R-O-S-:- -n-o- -o-b-m--u-a-l- -p-n-w-n-g-e-s- -o-r- -e-y-e- -u-f-r-k-u-d-t-i-o-n- -E-N-T- -R-O-S-:- -n-o- -n-a-s-a-l- -r-c-l-b-e-y-t-i-o-n-,- -j-r-m-r-i-n-g- -l-o-s-s-,- -j-l-o-q-i-q-e-s-s- -F-g-n--e-r-g-y- -a-n-d- -I-m-a-z-c-p-l-o-g-y- -R-O-S-:- -n-o- -d-u-y-e-r-g-i-c- -d-u-f-p-t-o-m-s- -o-r- -g-n-e-w-e-w-r-i-a- -N-a-r-p-a-f-g-j-i-i-c-a-l- -a-n-d- -U-l-k-e-y-y-t-i-c- -R-O-S-:- -n-o- -b-a-t-l-l-e-n- -z-b-h-n-d-s-,- -e-p-r-s-u-a-l- -p-t-o-e-d-i-n-g- -o-r- -n-l-o-i-s-i-n-g- -U-a-j-j-q-j-i-n-e- -R-O-S-:- -n-o- -h-b-j-y-u-r-i-a-,- -o-i-x-e-m-w-p-s-i-a-,- -x-z-f-g-h-t- -c-h--a-n-g-e-s-,- -m-c-l-n-l-k-a-t-u-r-e- -c-v-l-f-y-c-r-a-n-c-e- -E-i-o-i-l-k-a-t-o-r-y- -R-O-S-:- -n-o- -c-o-u-g-h-,- -m-d-s-t-o-n-e-s-s- -o-f- -z-g-i-a-t-h-,- -o-r- -q-i-z-e-z-i-n-g- -C-x-o-x-r-w-t-o-x-c-u-l-a-r- -R-O-S-:- -n-o- -c-h-e-s-t- -p-a-i-n- -o-r- -r-x-u-p-n-e-a- -o-n- -h-k-m-r-t-i-o-n- -Y-k-d-e-p-z-t-v-n-w-m-g-i-n-a-l- -R-O-S-:- -g-j-s-i-e--s- -s-k-a-f-g-e-n-a-l- -p-a-i-n-,- -k-k-m-g-h-t- -r-e-d- -b-l-o-o-d- -i-n- -s-t-o-o-l-.- -B-v-v-p-d-o-b-x-u-k-x-o-t-a-l- -R-O-S-:- -n-o- -t-t-w-l-g-i-a-s- -o-r- -g-j-g-b-j-w-l-g-i-a-s- -P-i-v-a-h-t-a-z-s-c-a-l- -R-O-S-:- -n-o- -T-I-A- -o-r- -k-h-y-o-k-e- -q-y-f-p-t-o-m-s- -G-l-b-l-e-g-s-l-u-g-i-c-a-l- -R-O-S-:- -n-o- -n-e-w- -o-r- -a-d-p-n-g-i-n-g- -s-k-i-n- -y-e-y-i-o-n-s-,- -f-w-a-h-e-s- -o-r- -f-l-r-r-i-t-i-s- Physical Exam Physical Exam General appearance: mild distress, appears stated age Head: Normocephalic, without obvious abnormality, atraumatic Eyes: conjunctivae/corneas clear. PERRL, EOM's intact. Fundi benign Throat: Lips, mucosa, and tongue normal. Teeth and gums normal Neck: supple, symmetrical, trachea midline, no adenopathy, thyroid: not enlarged, symmetric, no tenderness/mass/nodules, no carotid bruit and no JVD Lungs: dec w/ ett to auscultation bilaterally Heart: regular rate and rhythm, S1, S2 normal, no murmur, click, rub or gallop Abdomen: soft, non-tender. Bowel sounds normal. No masses, no organomegaly Extremities: extremities see Pulses: 2+ and symmetric Skin: Skin see below Neurologic: Grossly normal Last 24 Hour Vital Signs Date Time Temp Pulse Resp B/P (MAP) Pulse Ox O2 Delivery O2 Flow Rate FiO2 03/04/20 16:34 22 102/59 Mechanical Ventilator 10.0 85 03/04/20 16:30 89 19 107/45 (65) 100 03/04/20 16:00 97 03/04/20 16:00 85 22 90/48 (62) 100 03/04/20 16:00 85 03/04/20 15:30 99 22 110/58 (75) 100 03/04/20 15:29 76 22 100 Mechanical Ventilator 85 78 22 03/04/20 15:00 81 22 152/71 (98) 100 03/04/20 14:30 77 22 109/50 (69) 100 03/04/20 14:00 95 22 111/71 (84) 100 03/04/20 13:30 89 22 102/59 (73) 100 03/04/20 13:30 22 102/59 Mechanical Ventilator 85 03/04/20 13:30 22 Mechanical Ventilator 85 03/04/20 13:15 20 110/56 Mechanical Ventilator 85 03/04/20 13:15 22 Mechanical Ventilator 85 03/04/20 13:00 22 116/59 Mechanical Ventilator 85 03/04/20 13:00 22 Mechanical Ventilator 85 03/04/20 13:00 93 22 116/59 (78) 100 03/04/20 12:45 22 112/64 Mechanical Ventilator 85 03/04/20 12:45 22 Mechanical Ventilator 85 03/04/20 12:30 94 22 112/64 (80) 100 03/04/20 12:30 20 112/70 Mechanical Ventilator 85 03/04/20 12:30 22 Mechanical Ventilator 85 03/04/20 12:15 20 98/60 Non-Rebreather 85 03/04/20 12:00 97 22 102/59 (73) 100 03/04/20 12:00 77 03/04/20 11:45 20 107/60 Mechanical Ventilator 85 03/04/20 11:45 22 Mechanical Ventilator 85 03/04/20 11:30 22 107/56 Mechanical Ventilator 85 03/04/20 11:30 25 Mechanical Ventilator 85 03/04/20 11:30 86 22 100 Mechanical Ventilator 85 86 26 03/04/20 11:30 96 22 107/56 (73) 100 03/04/20 11:15 24 146/67 Mechanical Ventilator 85 03/04/20 11:15 30 Mechanical Ventilator 85 03/04/20 11:00 107 29 162/70 (100) 100 03/04/20 11:00 26 162/70 Mechanical Ventilator 85 03/04/20 11:00 30 Mechanical Ventilator 85 03/04/20 10:45 31 159/79 Mechanical Ventilator 85 03/04/20 10:45 30 Mechanical Ventilator 10.0 85 03/04/20 10:30 116 36 171/88 (115) 100 03/04/20 10:30 35 171/88 Mechanical Ventilator 85 03/04/20 10:15 30 171/88 Mechanical Ventilator 85 03/04/20 10:00 85 03/04/20 10:00 33 192/109 Mechanical Ventilator 85 03/04/20 10:00 107 34 159/79 (105) 100 03/04/20 09:54 127/67 03/04/20 09:51 89 127/67 03/04/20 09:51 89 127/67 03/04/20 09:30 101 30 142/67 (92) 100 03/04/20 09:00 100 26 151/73 (99) 100 03/04/20 09:00 20 151/73 Mechanical Ventilator 100 03/04/20 08:30 101 22 101/61 (74) 100 03/04/20 08:00 Mechanical Ventilator 03/04/20 08:00 105 03/04/20 08:00 22 127/67 Mechanical Ventilator 100 03/04/20 08:00 100 03/04/20 08:00 99.0 105 24 126/67 (86) 100 03/04/20 07:28 89 25 87 Mechanical Ventilator 100 89 26 03/04/20 07:00 22 126/80 Mechanical Ventilator 100 03/04/20 07:00 106 22 150/89 (109) 99 03/04/20 06:30 98 22 112/73 (86) 100 03/04/20 06:18 22 148/83 Mechanical Ventilator 100 03/04/20 06:00 26 156/89 Mechanical Ventilator 100 03/04/20 06:00 101 21 146/83 (104) 100 03/04/20 05:30 101 26 156/84 (108) 100 03/04/20 05:00 101 26 154/80 (104) 100 03/04/20 05:00 26 128/76 Mechanical Ventilator 100 03/04/20 04:30 95 17 120/70 (87) 100 03/04/20 04:00 103 03/04/20 04:00 96.8 95 22 127/81 (96) 100 03/04/20 04:00 26 156/86 Mechanical Ventilator 100 03/04/20 04:00 Mechanical Ventilator 03/04/20 04:00 100 03/04/20 03:30 96 23 135/76 (95) 98 03/04/20 03:24 98 25 87 Mechanical Ventilator 100 96 26 03/04/20 03:00 102 26 149/91 (110) 98 03/04/20 03:00 25 149/91 Mechanical Ventilator 100 03/04/20 02:30 103 25 133/79 (97) 98 03/04/20 02:00 25 144/85 Mechanical Ventilator 100 03/04/20 02:00 95 26 144/85 (104) 98 03/04/20 01:30 94 34 161/100 (120) 97 03/04/20 01:20 106 144/107 03/04/20 01:00 101 30 144/107 (119) 96 03/04/20 01:00 26 144/107 Mechanical Ventilator 100 03/04/20 00:30 102 29 154/100 (118) 96 03/04/20 00:00 100 03/04/20 00:00 Mechanical Ventilator 03/04/20 00:00 98 03/04/20 00:00 22 146/109 Mechanical Ventilator 100 03/04/20 00:00 97.0 96 25 146/109 (121) 96 03/03/20 23:30 99 30 165/97 (119) 98 03/03/20 23:09 85 26 90 Mechanical Ventilator 100 82 30 03/03/20 23:00 100 28 164/92 (116) 99 03/03/20 23:00 28 164/92 Mechanical Ventilator 100 03/03/20 22:30 104 28 148/85 (106) 99 03/03/20 22:00 104 31 151/100 (117) 99 03/03/20 22:00 27 151/100 Mechanical Ventilator 100 03/03/20 21:30 105 30 169/87 (114) 99 03/03/20 21:00 26 161/94 Mechanical Ventilator 100 03/03/20 21:00 108 33 161/94 (116) 99 03/03/20 20:30 114 33 174/94 (120) 93 03/03/20 20:04 118 177/83 03/03/20 20:03 25 174/83 Mechanical Ventilator 100 03/03/20 20:00 99.4 116 31 177/83 (114) 99 03/03/20 20:00 30 177/83 Mechanical Ventilator 100 03/03/20 20:00 100 03/03/20 20:00 Mechanical Ventilator 03/03/20 19:30 119 30 161/88 (112) 100 03/03/20 19:22 115 36 95 Mechanical Ventilator 100 97 37 03/03/20 19:03 117 03/03/20 19:00 115 32 168/110 (129) 100 03/03/20 18:30 117 28 162/112 (129) 98 03/03/20 18:00 113 24 196/102 (133) 99 03/03/20 17:30 111 38 172/118 (136) 90 Intake and Output 03/03/20 03/04/20 19:00 07:00 Intake Total 980.857 ml 1216 ml Output Total 1340 ml 1400 ml Balance -359.143 ml -184 ml Free Water 20 ml 295 ml IV Total 530.857 ml 331 ml Tube Feeding 390 ml 580 ml Other 40 ml 10 ml Output Urine Total 1340 ml 1400 ml # Bowel Movements 1 1 Laboratory Tests Test 03/04/20 05:00 03/04/20 08:39 White Blood Count 23.5 K/UL (4.8-10.8) *H Red Blood Count 3.61 M/UL (4.20-5.40) L Hemoglobin 10.0 G/DL (12.0-16.0) L Hematocrit 31.4 % (37.0-47.0) L Mean Corpuscular Volume 87 FL (80-99) Mean Corpuscular Hemoglobin 27.8 PG (27.0-31.0) Mean Corpuscular Hemoglobin Concent 32.0 G/DL (32.0-36.0) Red Cell Distribution Width 19.3 % (11.6-14.8) H Platelet Count 250 K/UL (150-450) Mean Platelet Volume 8.3 FL (6.5-10.1) Neutrophils (%) (Auto) % (45.0-75.0) Lymphocytes (%) (Auto) % (20.0-45.0) Monocytes (%) (Auto) % (1.0-10.0) Eosinophils (%) (Auto) % (0.0-3.0) Basophils (%) (Auto) % (0.0-2.0) Differential Total Cells Counted 100 Neutrophils % (Manual) 86 % (45-75) H Lymphocytes % (Manual) 1 % (20-45) L Monocytes % (Manual) 1 % (1-10) Eosinophils % (Manual) 0 % (0-3) Basophils % (Manual) 0 % (0-2) Band Neutrophils 12 % (0-8) H Platelet Estimate Adequate Platelet Morphology Normal Hypochromasia 1+ Anisocytosis 2+ Sodium Level 151 MMOL/L (136-145) H Potassium Level 3.7 MMOL/L (3.5-5.1) Chloride Level 113 MMOL/L (98-107) H Carbon Dioxide Level 28 MMOL/L (21-32) Blood Urea Nitrogen 57 mg/dL (7-18) H Creatinine 1.4 MG/DL (0.55-1.30) H Estimat Glomerular Filtration Rate 46.5 mL/min (>60) Glucose Level 249 MG/DL (74-106) #H Calcium Level 9.1 MG/DL (8.5-10.1) Arterial Blood pH 7.352 (7.350-7.450) Arterial Blood Partial Pressure CO2 51.6 mmHg (35.0-45.0) H Arterial Blood Partial Pressure O2 168.9 mmHg (75.0-100.0) H Arterial Blood HCO3 28.0 mmol/L (22.0-26.0) H Arterial Blood Oxygen Saturation 98.6 % (95-100) Arterial Blood Base Excess 1.9 (-2-2) Bryan Test Positive Height (Feet): 5 Height (Inches): 1.00 Weight (Pounds): 168 Medications Current Medications Medications (Trade) Dose Ordered Sig/Ivana Route PRN Reason Start Time Stop Time Status Last Admin Dose Admin Acetaminophen (Tylenol) 650 mg EVERY 6 HOURS PRN NG Mild Pain (Pain Scale 1-3) 02/27/20 07:45 03/28/20 07:44 03/03/20 03:06 Amlodipine Besylate (Norvasc) 5 mg DAILY NG 03/04/20 09:00 04/03/20 08:59 03/04/20 09:51 Aspirin (ASA) 81 mg DAILY NG 02/27/20 09:00 03/30/20 08:59 03/04/20 09:51 Cefepime HCl 1 gm/ Dextrose 55 ml @ 110 mls/hr Q24H IVPB 03/04/20 01:00 03/11/20 00:59 03/04/20 01:21 Chlorhexidine Gluconate (Divina-Hex 2%) 1 applic DAILY@1999 TOPIC 02/26/20 20:00 05/26/20 19:59 03/03/20 20:02 Clonidine HCl (Catapres Tab) 0.1 mg Q4H PRN ORAL SBP > 150mmHg 02/06/20 07:00 05/06/20 06:59 03/03/20 06:00 Dexamethasone Sodium Phosphate (Decadron 4mg/ml vial) 6 mg Q24H IVP 03/02/20 12:00 03/11/20 12:01 03/04/20 13:39 Dextrose (Dextrose 50%) 25 ml Q30M PRN IV Hypoglycemia 01/28/20 22:45 04/27/20 22:44 Dextrose (Dextrose 50%) 50 ml Q30M PRN IV Hypoglycemia 01/28/20 22:45 04/27/20 22:44 Epoetin Haseeb (Epoetin Haseeb-EPBX(NON ESRD)) 6,000 unit WED- SUBQ 03/04/20 21:00 06/02/20 20:59 Ethambutol HCl (Myambutol) 800 mg DAILY ORAL 03/04/20 13:00 04/03/20 12:59 03/04/20 13:40 Fentanyl Citrate 250 ml @ 1 mls/hr Q24H IV 02/29/20 15:00 03/06/20 14:59 03/04/20 16:34 Furosemide (Lasix) 20 mg EVERY 12 HOURS IV 03/01/20 21:00 03/31/20 20:59 03/04/20 09:52 Guaifenesin/ Dextromethorphan (Robitussin DM Syrup) 15 ml Q4H PRN ORAL For Cough 02/12/20 16:53 05/12/20 16:52 02/19/20 22:21 Heparin Sodium (Porcine) (Heparin 5000 units/ml) 5,000 units EVERY 12 HOURS SUBQ 02/28/20 21:00 04/13/20 20:59 03/04/20 09:53 Hydralazine HCl (Apresoline) 25 mg Q6H PRN ORAL SBP above 150 02/27/20 23:15 05/27/20 23:14 03/03/20 02:07 Insulin Aspart (NovoLOG) Q6HR SUBQ 01/29/20 00:00 04/28/20 00:00 03/04/20 13:42 Insulin Detemir (Levemir) 15 units EVERY 12 HOURS SUBQ 03/04/20 09:00 05/30/20 08:59 03/04/20 10:26 Ipratropium [place] (Atrovent Inh) 1 puffs Q4HRT INH 02/28/20 15:00 03/19/20 17:59 03/04/20 15:31 Isoniazid (Inh) 300 mg DAILY ORAL 03/04/20 13:00 04/03/20 12:59 03/04/20 13:39 Lidocaine (Lidoderm 5% PATCH) 1 patch DAILY TDERMAL 02/11/20 09:30 05/11/20 09:29 03/04/20 09:55 Methocarbamol (Robaxin) 500 mg Q8H PRN ORAL muscle spasm 02/11/20 09:30 03/12/20 09:29 03/03/20 20:02 Metoprolol Tartrate (Lopressor) 100 mg Q12HR NG 03/03/20 10:00 05/04/20 09:59 03/04/20 09:51 Midazolam HCl 50 mg/Sodium Chloride 100 ml @ 0 mls/hr Q24H PRN IV SEDATION 02/29/20 07:30 03/06/20 14:59 03/04/20 10:45 Morphine Sulfate (Morphine Sulfate) 2 mg Q2H PRN IVP For Pain 4-10 02/24/20 15:00 03/06/20 14:59 03/03/20 20:02 Multivitamins (Multivitamins W/ Minerals 15ml Liquid) 15 ml DAILY NG 02/27/20 09:00 03/28/20 08:59 03/04/20 09:51 Nitroglycerin (Nitro-Bid) 1 inch DAILY TOPIC 02/29/20 10:00 03/30/20 09:59 03/04/20 09:54 Pantoprazole (Protonix) 40 mg EVERY 12 HOURS IVP 02/25/20 10:00 03/24/20 08:59 03/04/20 09:52 Pyrazinamide (Pza) 1,500 mg DAILY ORAL 03/04/20 13:00 04/03/20 12:59 03/04/20 13:41 Pyridoxine HCl (Vitamin B6) 50 mg DAILY ORAL 03/04/20 13:00 04/03/20 12:59 03/04/20 13:40 Rifampin (Rifadin) 600 mg DAILY ORAL 03/04/20 13:00 04/03/20 12:59 03/04/20 13:40 Sorbitol (sorbitoL) 30 ml Q8H PRN NG Constipation 02/28/20 16:15 03/29/20 16:14 02/28/20 17:08 Vancomycin HCl 250 ml @ 166.667 mls/hr Q24H IVPB 03/03/20 12:00 03/08/20 11:59 03/04/20 13:39 Vancomycin HCl (Vanco pharmacy to dose) 1 ea DAILY PRN MISC Per rx protocol 02/13/20 11:30 03/14/20 11:29 Assessment/Plan Problem List: (1) CHF (congestive heart failure) ICD Codes: I50.9 - Heart failure, unspecified SNOMED: 06488936 (2) SVT (supraventricular tachycardia) ICD Codes: I47.1 - Supraventricular tachycardia SNOMED: 4402482 (3) Sepsis Assessment & Plan: patient currently in ICU. has declined since admission and intubated on vent support noted to have very agitated and requiring restraints for patients safety unfortunately she is very strong and pulls against restraints. weaning trials daily and difficult 2/2 agitation has developed wrist abrasions superficial with epidermal loss. has developed hand blister blood blister stable not infected wrap xerofoam on wrist and hand, apply abd, and wrap with kerlix sedation protocol will monitor closely ICD Codes: A41.9 - Sepsis, unspecified organism SNOMED: 90003999 (4) JC (acute kidney injury) ICD Codes: N17.9 - Acute kidney failure, unspecified SNOMED: 49627827, 9411496 (5) Febrile illness ICD Codes: R50.9 - Fever, unspecified SNOMED: 180221524, 5596984 (6) Hypertensive urgency ICD Codes: I16.0 - Hypertensive urgency SNOMED: 376497890 (7) Elevated d-dimer ICD Codes: R79.89 - Other specified abnormal findings of blood chemistry SNOMED: 730780520 (8) Low back pain ICD Codes: M54.5 - Low back pain SNOMED: 662106971 (9) Constipation ICD Codes: K59.00 - Constipation, unspecified SNOMED: 85443671 (10) Fatty liver ICD Codes: K76.0 - Fatty (change of) liver, not elsewhere classified SNOMED: 520567920 (11) Hypokalemia ICD Codes: E87.6 - Hypokalemia SNOMED: 35812680 (12) Dizziness ICD Codes: R42 - Dizziness and giddiness SNOMED: 933775670, 058420746 (13) Dizziness ICD Codes: R42 - Dizziness and giddiness SNOMED: 205163710, 508791876 (14) Diabetes mellitus ICD Codes: E11.9 - Type 2 diabetes mellitus without complications SNOMED: 60201327 (15) Back pain ICD Codes: M54.9 - Dorsalgia, unspecified SNOMED: 702614956 (16) Enteritis ICD Codes: K52.9 - Noninfective gastroenteritis and colitis, unspecified SNOMED: 60138492 (17) Gastritis ICD Codes: K29.70 - Gastritis, unspecified, without bleeding SNOMED: 1818254 (18) Hyperglycemia ICD Codes: R73.9 - Hyperglycemia, unspecified SNOMED: 77624565, 35692627, 231772086 (19) Hyperglycemia ICD Codes: R73.9 - Hyperglycemia, unspecified SNOMED: 90375596 (20) Hyperglycemia ICD Codes: R73.9 - Hyperglycemia, unspecified SNOMED: 23962443 (21) Hyperlipemia ICD Codes: E78.5 - Hyperlipidemia, unspecified SNOMED: 42508452 (22) Neuropathy ICD Codes: G62.9 - Polyneuropathy, unspecified SNOMED: 701922658 (23) Renal insufficiency ICD Codes: N28.9 - Disorder of kidney and ureter, unspecified SNOMED: 971913507, 340325767 (24) Renal insufficiency ICD Codes: N28.9 - Disorder of kidney and ureter, unspecified SNOMED: 648796157, 938688608 (25) Lung mass ICD Codes: R91.8 - Other nonspecific abnormal finding of lung field SNOMED: 203445502 (26) Lung mass ICD Codes: R91.8 - Other nonspecific abnormal finding of lung field SNOMED: 000897729 (27) UTI (urinary tract infection) ICD Codes: N39.0 - Urinary tract infection, site not specified SNOMED: 53267891 (28) Neck pain ICD Codes: M54.2 - Cervicalgia SNOMED: 94108590 (29) Abdominal pain ICD Codes: R10.9 - Unspecified abdominal pain SNOMED: 06037166 (30) Bronchitis ICD Codes: J40 - Bronchitis, not specified as acute or chronic SNOMED: 03022906 (31) Chest pain ICD Codes: R07.9 - Chest pain, unspecified SNOMED: 36881680 (32) Hypertension ICD Codes: I10 - Essential (primary) hypertension SNOMED: 25434626 (33) Hypertension ICD Codes: I10 - Essential (primary) hypertension SNOMED: 23954862 (34) Hypotension ICD Codes: I95.9 - Hypotension, unspecified SNOMED: 81684400 (35) Pneumonia ICD Codes: J18.9 - Pneumonia, unspecified organism SNOMED: 143884205 (36) Asthma ICD Codes: J45.909 - Unspecified asthma, uncomplicated SNOMED: 684666625 (37) URI (upper respiratory infection) ICD Codes: J06.9 - Acute upper respiratory infection, unspecified SNOMED: 48810359 (38) Pain ICD Codes: R52 - Pain, unspecified SNOMED: 92822950 (39) Cellulitis, leg ICD Codes: L03.119 - Cellulitis of unspecified part of limb SNOMED: 813938773 (40) Painful diabetic neuropathy ICD Codes: E11.40 - Type 2 diabetes mellitus with diabetic neuropathy, unspecified SNOMED: 942886301, 26399943, 106932476 (41) COPD exacerbation ICD Codes: J44.1 - Chronic obstructive pulmonary disease with (acute) exacerbation SNOMED: 542627310 (42) Left shoulder strain ICD Codes: S46.912A - Strain of unspecified muscle, fascia and tendon at shoulder and upper arm level, left arm, initial encounter SNOMED: 955312368 (43) Neck strain ICD Codes: S16.1XXA - Strain of muscle, fascia and tendon at neck level, initial encounter SNOMED: 202526186 (44) Abnormal LFTs ICD Codes: R94.5 - Abnormal results of liver function studies SNOMED: 498226746 (45) Trapezius muscle spasm ICD Codes: M62.838 - Other muscle spasm SNOMED: 627078634427 (46) Chronic hip pain ICD Codes: M25.559 - Pain in unspecified hip; G89.29 - Other chronic pain SNOMED: 70779720, 62844791 (47) Dizziness of unknown cause ICD Codes: R42 - Dizziness and giddiness SNOMED: 009179545 (48) Rotator cuff impingement syndrome of right shoulder ICD Codes: M75.41 - Impingement syndrome of right shoulder SNOMED: 502136893 Isai Pena Mar 04, 2020 17:11
--- NOTE | 2020-03-04 17:18 | NUR ---
CASE MANAGEMENT:REVIEW SI;RESPIRATORY FAILURE. TB RULE OUT. 101.6 107 36 90/48 87% ETT/VENT AC 22 TV 550 PEEP 12 FIO2 85% WBC 23.5 H/H 10.0/31.4 NA 151 BUN 57 CR 1.4 BG 249 IS;MYAMBUTOL PO QD PYRAZINAMIDE NG QD ISONIAZID NG QD CEFEPIME IV Q24 VANCOMYCIN IV QD DECADRON IV Q24 LASIX IV Q12 ASA NG QD ICU STATUS DCP;FROM HOME
--- NOTE | 2020-03-04 18:00 | NUR ---
NURSE NOTES: Pt had BM x1, large/soft/pasty/brown. Bed bath was given, gown/bed linens were changed. Accucheck resulted 103, per sliding scale Insulin was held. OGT feeding continues at rate of 50ml/hour, since still continues to have residual of 50ml. Oral care was done. Pt was repositioned for comfort. Pt remains -2 light sedation on RASS score, while maintained on Versed drip at 2mg/hr and Fentanyl drip at 200mcg/hr. VS remain stable.
--- NOTE | 2020-03-04 19:20 | NUR ---
NURSE HAND-OFF REPORT: Latest Vital Signs: Temperature 98.0 , Pulse 75 , B/P 114 /61 , Respiratory Rate 20 , O2 SAT 100 , Mechanical Ventilator, AC22, VT550, Peep 12, FIO2 85%. Vital Sign Comment: Pt remains -2 light sedation per RASS score while maintained on Versed drip at 2mg/hr and Fentanyl drip at 200mcg/hr. EKG Rhythm: Sinus Rhythm Rhythm change?: N Notified?: Jay briceño MD Response: Latest Pineda Fall Score: 50 Fall Risk: High Risk Safety Measures: Call light Within Reach, Bed Alarm Zone 1, Side Rails Side Rails x3, Bed position Low and Locked. Fall Precautions: Door Sign Report given to Danilo BUSCH. Endorsed plan of care.
--- NOTE | 2020-03-04 20:00 | NUR ---
NURSE NOTES: Pt was assessed after receiving change of shift report from Kaylee BUSCH. Pt is sedated RASS score of -2 light sedation while on Fentanyl drip at 200mcg/hr infusing via right upper arm double lumen PICC line. Orally intubated, ETT 7.5 at 25cm lipline with vent settings AC22, VT550, Peep 12, FIO2 85% with O2Sat at 100%. Bilateral rales noted on auscultation. ST on property assessment monitor, HR 97 NSR. Temp 98.8F rectal. Pt is maintained on cooling blanket to regulate body temperature. OGT with Glucerna 1.2 is infusing at 50ml/hour; residual noted=50ml. OGT was flushed with 150ml/water per order. Flores catheter is present, draining clear/yellow urine. Skin alterations noted on sacral and upper extremities. Pt is on pressure release mattress. Bilateral soft wrist restrains are present to prevent self/extubation as pt remains impulsive, reaching for ETT even while -2 RASS score. Skin/vascular integrity at restraint site remains within normal limits. HOB at 30degrees, bed locked, three side rails up, and call light is within reach. Will continue to monitor pt and follow plan of care per MD orders and protocol.
[2020-03-04] MEDS: Epoetin Alfa-EPBX (NON ESRD) 3000 units/ml vial SUBQ SCH (20:52)
[2020-03-04] MEDS: Dyna-Hex 2% Top Sol 2oz TOPIC SCH (20:52)
[2020-03-04] MEDS: Metoclopramide 10mg/10ml Liq NG SCH ×2 (21:00→23:42)
--- NOTE | 2020-03-04 21:00 | NUR ---
NURSE NOTES: Patient given sponge bath using CHG soap. Feed residuals noted to be at 50ml. 100ml of free water flushed. New order came in for Reglan 5mg IVP Q 6. Patients tapered down FiO2 to 75%. Saturations still staying above 98%. Patient given oral care and was provided lavaged. HR is 98 NSR. Will continue to monitor.
--- NOTE | 2020-03-04 21:00 | NUR ---
NURSE NOTES: Patient given sponge bath using CHG soap. Feed residuals noted to be at 50ml. 100ml of free water flushed. Patients tapered down FiO2 to 80%. Saturations still staying above 98%. Patient given oral care and was provided lavaged. HR is 98 NSR. Will continue to monitor.
--- NOTE | 2020-03-04 21:00 | General Progress Note ---
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 increased residuals noted on fentanyl gtt Objective Last 24 Hour Vital Signs Date Time Temp Pulse Resp B/P (MAP) Pulse Ox O2 Delivery O2 Flow Rate FiO2 03/04/20 20:53 98 106/60 03/04/20 19:47 82 22 100 Mechanical Ventilator 85 81 22 03/04/20 19:00 75 22 114/61 (78) 100 03/04/20 19:00 22 114/61 Mechanical Ventilator 85 03/04/20 19:00 20 Mechanical Ventilator 85 03/04/20 18:00 20 102/51 Mechanical Ventilator 85 03/04/20 18:00 20 Mechanical Ventilator 85 03/04/20 18:00 81 22 102/51 (68) 100 03/04/20 17:30 96 22 106/55 (72) 100 03/04/20 17:00 98.0 109 22 141/74 (96) 100 03/04/20 17:00 20 140/70 Mechanical Ventilator 85 03/04/20 17:00 20 Mechanical Ventilator 85 03/04/20 16:45 20 120/70 Mechanical Ventilator 85 03/04/20 16:34 22 102/59 Mechanical Ventilator 10.0 85 03/04/20 16:33 20 87/53 Mechanical Ventilator 85 03/04/20 16:30 89 19 107/45 (65) 100 03/04/20 16:00 97 03/04/20 16:00 20 90/48 Mechanical Ventilator 85 03/04/20 16:00 20 Mechanical Ventilator 85 03/04/20 16:00 Mechanical Ventilator 03/04/20 16:00 85 22 90/48 (62) 100 03/04/20 16:00 85 03/04/20 15:45 20 100/60 Mechanical Ventilator 85 03/04/20 15:30 99 22 110/58 (75) 100 03/04/20 15:30 20 110/58 Mechanical Ventilator 85 03/04/20 15:29 76 22 100 Mechanical Ventilator 85 78 22 03/04/20 15:15 20 112/56 Mechanical Ventilator 85 03/04/20 15:00 81 22 152/71 (98) 100 03/04/20 15:00 20 100/60 Mechanical Ventilator 85 03/04/20 15:00 20 Mechanical Ventilator 85 03/04/20 14:30 77 22 109/50 (69) 100 03/04/20 14:00 95 22 111/71 (84) 100 03/04/20 14:00 22 111/71 Mechanical Ventilator 85 03/04/20 14:00 20 Mechanical Ventilator 85 03/04/20 13:30 89 22 102/59 (73) 100 03/04/20 13:30 22 102/59 Mechanical Ventilator 85 03/04/20 13:30 22 Mechanical Ventilator 85 03/04/20 13:15 20 110/56 Mechanical Ventilator 85 03/04/20 13:15 22 Mechanical Ventilator 85 03/04/20 13:00 22 116/59 Mechanical Ventilator 85 03/04/20 13:00 22 Mechanical Ventilator 85 03/04/20 13:00 93 22 116/59 (78) 100 03/04/20 12:45 22 112/64 Mechanical Ventilator 85 03/04/20 12:45 22 Mechanical Ventilator 85 03/04/20 12:30 94 22 112/64 (80) 100 03/04/20 12:30 20 112/70 Mechanical Ventilator 85 03/04/20 12:30 22 Mechanical Ventilator 85 03/04/20 12:15 20 98/60 Non-Rebreather 85 03/04/20 12:00 97 22 102/59 (73) 100 03/04/20 12:00 77 03/04/20 12:00 Mechanical Ventilator 03/04/20 11:45 20 107/60 Mechanical Ventilator 85 03/04/20 11:45 22 Mechanical Ventilator 85 03/04/20 11:30 22 107/56 Mechanical Ventilator 85 03/04/20 11:30 25 Mechanical Ventilator 85 03/04/20 11:30 86 22 100 Mechanical Ventilator 85 86 26 03/04/20 11:30 96 22 107/56 (73) 100 03/04/20 11:15 24 146/67 Mechanical Ventilator 85 03/04/20 11:15 30 Mechanical Ventilator 85 03/04/20 11:00 107 29 162/70 (100) 100 03/04/20 11:00 26 162/70 Mechanical Ventilator 85 03/04/20 11:00 30 Mechanical Ventilator 85 03/04/20 10:45 31 159/79 Mechanical Ventilator 85 03/04/20 10:45 30 Mechanical Ventilator 10.0 85 03/04/20 10:30 116 36 171/88 (115) 100 03/04/20 10:30 35 171/88 Mechanical Ventilator 85 03/04/20 10:15 30 171/88 Mechanical Ventilator 85 03/04/20 10:00 85 03/04/20 10:00 33 192/109 Mechanical Ventilator 85 03/04/20 10:00 107 34 159/79 (105) 100 03/04/20 09:54 127/67 03/04/20 09:51 89 127/67 03/04/20 09:51 89 127/67 03/04/20 09:30 101 30 142/67 (92) 100 03/04/20 09:00 100 26 151/73 (99) 100 03/04/20 09:00 20 151/73 Mechanical Ventilator 100 03/04/20 08:30 101 22 101/61 (74) 100 03/04/20 08:00 Mechanical Ventilator 03/04/20 08:00 105 03/04/20 08:00 22 127/67 Mechanical Ventilator 100 03/04/20 08:00 100 03/04/20 08:00 99.0 105 24 126/67 (86) 100 03/04/20 07:28 89 25 87 Mechanical Ventilator 100 89 26 03/04/20 07:00 22 126/80 Mechanical Ventilator 100 03/04/20 07:00 106 22 150/89 (109) 99 03/04/20 06:30 98 22 112/73 (86) 100 03/04/20 06:18 22 148/83 Mechanical Ventilator 100 03/04/20 06:00 26 156/89 Mechanical Ventilator 100 03/04/20 06:00 101 21 146/83 (104) 100 03/04/20 05:30 101 26 156/84 (108) 100 03/04/20 05:00 101 26 154/80 (104) 100 03/04/20 05:00 26 128/76 Mechanical Ventilator 100 03/04/20 04:30 95 17 120/70 (87) 100 03/04/20 04:00 103 03/04/20 04:00 96.8 95 22 127/81 (96) 100 03/04/20 04:00 26 156/86 Mechanical Ventilator 100 03/04/20 04:00 Mechanical Ventilator 03/04/20 04:00 100 03/04/20 03:30 96 23 135/76 (95) 98 03/04/20 03:24 98 25 87 Mechanical Ventilator 100 96 26 03/04/20 03:00 102 26 149/91 (110) 98 03/04/20 03:00 25 149/91 Mechanical Ventilator 100 03/04/20 02:30 103 25 133/79 (97) 98 03/04/20 02:00 25 144/85 Mechanical Ventilator 100 03/04/20 02:00 95 26 144/85 (104) 98 03/04/20 01:30 94 34 161/100 (120) 97 03/04/20 01:20 106 144/107 03/04/20 01:00 101 30 144/107 (119) 96 03/04/20 01:00 26 144/107 Mechanical Ventilator 100 03/04/20 00:30 102 29 154/100 (118) 96 03/04/20 00:00 100 03/04/20 00:00 Mechanical Ventilator 03/04/20 00:00 98 03/04/20 00:00 22 146/109 Mechanical Ventilator 100 03/04/20 00:00 97.0 96 25 146/109 (121) 96 03/03/20 23:30 99 30 165/97 (119) 98 03/03/20 23:09 85 26 90 Mechanical Ventilator 100 82 30 03/03/20 23:00 100 28 164/92 (116) 99 03/03/20 23:00 28 164/92 Mechanical Ventilator 100 03/03/20 22:30 104 28 148/85 (106) 99 03/03/20 22:00 104 31 151/100 (117) 99 03/03/20 22:00 27 151/100 Mechanical Ventilator 100 03/03/20 21:30 105 30 169/87 (114) 99 03/03/20 21:00 26 161/94 Mechanical Ventilator 100 03/03/20 21:00 108 33 161/94 (116) 99 Intake and Output 03/03/20 03/04/20 19:00 07:00 Intake Total 980.857 ml 1216 ml Output Total 1340 ml 1400 ml Balance -359.143 ml -184 ml Free Water 20 ml 295 ml IV Total 530.857 ml 331 ml Tube Feeding 390 ml 580 ml Other 40 ml 10 ml Output Urine Total 1340 ml 1400 ml # Bowel Movements 1 1 Laboratory Tests 03/04/20 05:00: White Blood Count 23.5*H, Red Blood Count 3.61L, Hemoglobin 10.0L, Hematocrit 31.4L, Mean Corpuscular Volume 87, Mean Corpuscular Hemoglobin 27.8, Mean Corpuscular Hemoglobin Concent 32.0, Red Cell Distribution Width 19.3H, Platelet Count 250, Mean Platelet Volume 8.3, Neutrophils (%) (Auto) , Lymphocytes (%) (Auto) , Monocytes (%) (Auto) , Eosinophils (%) (Auto) , Basophils (%) (Auto) , Differential Total Cells Counted 100, Neutrophils % (Manual) 86H, Lymphocytes % (Manual) 1L, Monocytes % (Manual) 1, Eosinophils % (Manual) 0, Basophils % (Manual) 0, Band Neutrophils 12H, Platelet Estimate Adequate, Platelet Morphology Normal, Hypochromasia 1+, Anisocytosis 2+, Sodium Level 151H, Potassium Level 3.7, Chloride Level 113H, Carbon Dioxide Level 28, Blood Urea Nitrogen 57H, Creatinine 1.4H, Estimat Glomerular Filtration Rate 46.5, Glucose Level 249#H, Calcium Level 9.1 03/04/20 08:39: Arterial Blood pH 7.352, Arterial Blood Partial Pressure CO2 51.6H, Arterial Blood Partial Pressure O2 168.9H, Arterial Blood HCO3 28.0H, Arterial Blood Oxygen Saturation 98.6, Arterial Blood Base Excess 1.9, Bryan Test Positive Height (Feet): 5 Height (Inches): 1.00 Weight (Pounds): 168 Objective Patient seen in ICU On vent Eyes open but minimally responsive to MD stimulation Coarse BS RR abd obese, soft (+) Edema Assessment/Plan Assessment/Plan: Assessment - GIB - resolved - Anemia - TF residuals, possibly due to impaired gastric motility - COVID pneumonitis - Acute PR - on ASA - Resp failure - malnutrition/feeding tube dependent - declining albumin - partly due to liver disease - fatty liver - hepatitis C with nodular liver, PCR (+) - abnormal LFT - due to COVD, fatty liver, and HCV - HTN - COPD - Lung mass - DM - poor prognosis Recommendations - Continue TF - protein powder - short term reglan - Sq heparin - increase free water to correct Na - monitor CBC - follow LFT - PPI --> now BID - Elevate HOB - outpatient HCV eradication - Outpatient colonoscopy Feliberto Pérez MD Mar 04, 2020 21:00
--- NOTE | 2020-03-04 22:00 | NUR ---
NURSE NOTES: Pt was assessed . Pt maintains sedation RASS score of -2 light sedation while on Fentanyl drip at 200mcg/hr and Versed ggt at 2mg/hr via right upper arm double lumen PICC line. FiO2 tapered down to 75%. awake overnight monitor showing HR 109 ST. Temp 99.5F rectal. Pt is maintained on cooling blanket to regulate body temperature. Skin alterations noted precautions observed. HOB at 30degrees, bed locked, three side rails up, and call light is within reach. Repositioned patient and oral care performed. Will continue to monitor.
[2020-03-05] VITALS (44 sets, daily range): BP systolic 103–172; BP diastolic 55–113
--- NOTE | 2020-03-05 | NUR ---
NURSE NOTES: Bedside assessment performed, assessed pt for pain with a FLACC score of 0 noted. Glucose noted to be 120, no coverage needed per sliding scale. Pt remains free from s/sx of acute cardiopulmonary distress at this time. Oral care and suctioning provided for excess secretions. RT present at bedside performing pt care. Pt tolerated care well and remains clean and dry. Fentanyl continues to infuse without incident with a RASS score of -2 noted. Pt repositioned for safety and comfort. Fall, Aspiration and Skin precautions observed. Pt remains resting in bed; Bed remains in the lowest position with the safety wheels engaged, call light within reach, side rails up x3 and bed alarm activated. Will continue plan of care. Will continue to monitor.
[2020-03-05] MEDS: Methocarbamol 500mg tab ORAL PRN (01:07)
--- NOTE | 2020-03-05 02:00 | NUR ---
NURSE NOTES: Bedside assessment performed, assessed pt for pain with a FLACC score of 0 noted. Aferile.Pt remains free from s/sx of acute cardiopulmonary distress at this time. Oral care and suctioning provided for excess secretions. RT present at bedside performing pt care. Pt tolerated care well and remains clean and dry. Fentanyl continues to infuse without incident with a RASS score of -2 noted. Pt repositioned for safety and comfort. Fall, Aspiration and Skin precautions observed. Pt remains resting in bed; Bed remains in the lowest position with the safety wheels engaged, call light within reach, side rails up x3 and bed alarm activated. Will continue plan of care. Will continue to monitor
[2020-03-05] MEDS: Ipratropium Bromide Inhaler INH SCH ×6 (03:42→22:57)
--- NOTE | 2020-03-05 04:00 | NUR ---
NURSE NOTES: Bedside assessment performed, assessed pt for pain with a FLACC score of 0 noted. Labs drawn. Pt remains free from s/sx of acute cardiopulmonary distress at this time. Oral care and suctioning provided for excess secretions. Pt provided with a complete bed bath and linen change. Pt noted to have brown liquid stool, rectal tube inserted. Pt tolerated care well and remains clean and dry. Fentanyl continues to infuse at 200mcg/hr and Versed at 2mg/hr without incident with a RASS score of -2 noted. Pt repositioned for safety and comfort. Fall, Aspiration and Skin precautions observed. Pt remains resting in bed; Bed remains in the lowest position with the safety wheels engaged, call light within reach, side rails up x3 and bed alarm activated. Will continue plan of care. Will continue to monitor.
[2020-03-05 04:57] LABS: HEMATOCRIT 28.9 % (37.0-47.0); HEMOGLOBIN 9.8 G/DL (12.0-16.0); MEAN CORPUSCULAR VOLUME 83 FL (80-99); PLATELET COUNT 280 K/UL (150-450); RED BLOOD COUNT 3.47 M/UL (4.20-5.40); RED CELL DISTRIBUTION WIDTH 19.3 % (11.6-14.8)
[2020-03-05] MEDS: fentaNYL 2500mcg/NS 250ml 250 ML IV SCH ×2 (05:19→17:55)
[2020-03-05] MEDS: Midazolam for drip 50 MG in NS 90 ML IV PRN (05:20)
[2020-03-05] MEDS: Acetaminophen 650mg/20.3ml NG PRN ×2 (05:21→15:54)
[2020-03-05] MEDS: Metoclopramide 10mg/10ml Liq NG SCH ×3 (05:21→17:55)
[2020-03-05 05:23] LABS: WHITE BLOOD COUNT 28.4 K/UL (4.8-10.8)
[2020-03-05 05:28] LABS: BLOOD UREA NITROGEN 58 mg/dL (7-18); CALCIUM 9.3 MG/DL (8.5-10.1); CARBON DIOXIDE 29 MMOL/L (21-32); CHLORIDE 109 MMOL/L (98-107); CREATININE 1.5 MG/DL (0.55-1.30); POTASSIUM 3.7 MMOL/L (3.5-5.1); SODIUM 148 MMOL/L (136-145)
--- NOTE | 2020-03-05 06:00 | NUR ---
NURSE NOTES: Bedside assessment performed, assessed pt for pain with a FLACC score of 0 noted. Pt remains free from s/sx of acute cardiopulmonary distress at this time. Oral care and suctioning provided for excess secretions. Fentanyl continues to infuse at 200mcg/hr and versed at 2mg/hr-new bags hung . Adrienne RASS score of -2 noted. Pt repositioned for safety and comfort. Fall, Aspiration and Skin precautions observed. Pt remains resting in bed; Bed remains in the lowest position with the safety wheels engaged, call light within reach, side rails up x3 and bed alarm activated. Will continue plan of care. Will continue to monitor.NURSE NOTES:
[2020-03-05] MEDS: NovoLOG Insulin Flexpen SUBQ SCH ×4 (06:09→18:09)
--- NOTE | 2020-03-05 07:30 | NUR ---
NURSE NOTES: Pt was assessed after receiving change of shift report from Danilo BUSCH. Pt is sedated RASS score of -2 light sedation while on Fentanyl drip at 200mcg/hr and Versed drip at 2mg/hr, both infusing via right upper arm double lumen PICC line. Orally intubated, ETT 7.5 at 25cm lipline with vent settings AC22, VT550, Peep 12, FIO2 55% with O2Sat at 100%. Bilateral rales noted on auscultation. ST on skeiner, HR 90. Temp 99F rectal. Pt is maintained on cooling blanket to regulate body temperature. OGT with Glucerna 1.2 is infusing at 75ml/hour; residual noted=50ml. Flores catheter is present, draining clear/warren urine. Skin alterations noted on sacral and upper extremities. Pt is on pressure release mattress. Bilateral soft wrist restrains are present to prevent self/extubation as pt remains impulsive, reaching for ETT even while -2 RASS score. Skin/vascular integrity at restraint site remains within normal limits. HOB at 30degrees, bed locked, three side rails up, and call light is within reach. Will continue to monitor pt and follow plan of care per MD orders and protocol.
--- NOTE | 2020-03-05 08:17 | Critical Care Progress Note ---
Assessment/Plan Assessment/Plan IMPRESSION acute respiratory failure/ now on vent leukocytosis, possibly exacerbated by steroids sepsis ARF toxic met encephalopathy COPD DM poor control cavitary lesion negative AFB groundglass infiltrates NSTEMI severe PCM hypertension left shoulder pain bacteremia MRSA hematuria COVID anemia diabetes s/p respiratory code hypernatremia edema PLAN lasix with caution monitor sodium levels DVT prophylaxis monitor HH antibiotics per ID beta rusty as needed vent support- taper oxygen now at 55% monitor acid base NGT and feeds monitor lytes maintain support- via vent and change to volume ventilation monitor LOC critical at present maintain sedation adjust insulin and monitor sugars medications/laboratory data/nursing notes/ICU care reviewed in detail note reviewed and edited care discussed with RN and RT ICU time spent >40 minutes Critical Care - Subjective Interval Events: oxygenation improved vitals improved duplex negative ROS Limited/Unobtainable: Yes Condition: critical EKG Rhythm: Sinus Rhythm I&O: Intake and Output 03/04/20 03/05/20 19:00 07:00 Intake Total 1254.00 ml 1739.99 ml Output Total 1180 ml 1700 ml Balance 74.00 ml 39.99 ml Free Water 300 ml 365 ml IV Total 354.00 ml 514.99 ml Tube Feeding 600 ml 860 ml Output Urine Total 1180 ml 1700 ml # Bowel Movements 4 1 Critical Care - Objective ET-Tube: 7.5 ET Position: 25 Last 24 Hour Vital Signs Date Time Temp Pulse Resp B/P (MAP) Pulse Ox O2 Delivery O2 Flow Rate FiO2 03/05/20 07:00 92 29 115/56 (75) 96 03/05/20 07:00 29 115/56 Mechanical Ventilator 55 03/05/20 07:00 29 Mechanical Ventilator 55 03/05/20 06:30 100 26 119/61 (80) 98 03/05/20 06:00 97 21 103/55 (71) 97 03/05/20 06:00 27 103/55 Mechanical Ventilator 60 03/05/20 06:00 27 Mechanical Ventilator 60 03/05/20 05:30 115 20 138/65 (89) 93 03/05/20 05:20 30 Mechanical Ventilator 60 03/05/20 05:19 30 156/84 Mechanical Ventilator 60 03/05/20 05:00 111 29 156/84 (108) 96 03/05/20 05:00 30 156/84 Mechanical Ventilator 60 03/05/20 05:00 20 Mechanical Ventilator 60 03/05/20 04:30 106 29 157/89 (111) 94 03/05/20 04:00 99.5 108 25 157/86 (109) 98 03/05/20 04:00 32 157/89 Mechanical Ventilator 50 03/05/20 04:00 30 Mechanical Ventilator 50 03/05/20 04:00 Mechanical Ventilator 03/05/20 04:00 108 03/05/20 04:00 50 03/05/20 03:42 109 24 100 Mechanical Ventilator 60 113 24 60 03/05/20 03:30 108 25 162/75 (104) 97 03/05/20 03:00 110 30 130/96 (107) 100 03/05/20 03:00 30 130/96 Mechanical Ventilator 60 03/05/20 03:00 30 Mechanical Ventilator 60 03/05/20 02:30 113 37 165/90 (115) 94 03/05/20 02:00 22 145/104 Mechanical Ventilator 60 03/05/20 02:00 22 Mechanical Ventilator 60 03/05/20 02:00 112 22 145/104 (118) 99 03/05/20 01:30 107 31 166/79 (108) 95 03/05/20 01:00 13 172/88 Mechanical Ventilator 60 03/05/20 01:00 13 Mechanical Ventilator 60 03/05/20 01:00 111 13 172/88 (116) 97 03/05/20 00:30 110 27 158/98 (118) 97 03/05/20 00:00 Mechanical Ventilator 03/05/20 00:00 106 03/05/20 00:00 29 152/80 Mechanical Ventilator 60 03/05/20 00:00 29 Mechanical Ventilator 60 03/05/20 00:00 99.7 95 29 152/80 (104) 98 03/05/20 00:00 60 03/04/20 23:30 106 24 151/88 (109) 99 03/04/20 23:00 108 22 133/75 (94) 100 03/04/20 23:00 22 133/75 Mechanical Ventilator 75 03/04/20 23:00 22 Mechanical Ventilator 75 03/04/20 22:53 108 22 100 Mechanical Ventilator 85 106 22 85 03/04/20 22:30 111 28 142/84 (103) 99 03/04/20 22:00 25 173/91 Mechanical Ventilator 75 03/04/20 22:00 25 Mechanical Ventilator 75 03/04/20 22:00 102 37 173/91 (118) 93 03/04/20 21:30 113 33 163/84 (110) 96 03/04/20 21:00 100 22 117/61 (79) 100 03/04/20 21:00 32 117/61 Mechanical Ventilator 75 03/04/20 21:00 32 Mechanical Ventilator 75 03/04/20 20:53 98 106/60 03/04/20 20:30 79 22 115/65 (82) 100 03/04/20 20:00 75 03/04/20 20:00 Mechanical Ventilator 03/04/20 20:00 22 112/58 Mechanical Ventilator 75 03/04/20 20:00 22 Mechanical Ventilator 75 03/04/20 20:00 98.8 79 22 112/58 (76) 100 03/04/20 19:47 82 22 100 Mechanical Ventilator 85 81 22 03/04/20 19:30 97 22 106/62 (77) 100 03/04/20 19:17 67 03/04/20 19:00 75 22 114/61 (78) 100 03/04/20 19:00 22 114/61 Mechanical Ventilator 85 03/04/20 19:00 20 Mechanical Ventilator 85 03/04/20 18:00 20 102/51 Mechanical Ventilator 85 03/04/20 18:00 20 Mechanical Ventilator 85 03/04/20 18:00 81 22 102/51 (68) 100 03/04/20 17:30 96 22 106/55 (72) 100 03/04/20 17:00 98.0 109 22 141/74 (96) 100 03/04/20 17:00 20 140/70 Mechanical Ventilator 85 03/04/20 17:00 20 Mechanical Ventilator 85 03/04/20 16:45 20 120/70 Mechanical Ventilator 85 03/04/20 16:34 22 102/59 Mechanical Ventilator 10.0 85 03/04/20 16:33 20 87/53 Mechanical Ventilator 85 03/04/20 16:30 89 19 107/45 (65) 100 03/04/20 16:00 97 03/04/20 16:00 20 90/48 Mechanical Ventilator 85 03/04/20 16:00 20 Mechanical Ventilator 85 03/04/20 16:00 Mechanical Ventilator 03/04/20 16:00 85 22 90/48 (62) 100 03/04/20 16:00 85 03/04/20 15:45 20 100/60 Mechanical Ventilator 85 03/04/20 15:30 99 22 110/58 (75) 100 03/04/20 15:30 20 110/58 Mechanical Ventilator 85 03/04/20 15:29 76 22 100 Mechanical Ventilator 85 78 22 03/04/20 15:15 20 112/56 Mechanical Ventilator 85 03/04/20 15:00 81 22 152/71 (98) 100 03/04/20 15:00 20 100/60 Mechanical Ventilator 85 03/04/20 15:00 20 Mechanical Ventilator 85 03/04/20 14:30 77 22 109/50 (69) 100 03/04/20 14:00 95 22 111/71 (84) 100 03/04/20 14:00 22 111/71 Mechanical Ventilator 85 03/04/20 14:00 20 Mechanical Ventilator 85 03/04/20 13:30 89 22 102/59 (73) 100 03/04/20 13:30 22 102/59 Mechanical Ventilator 85 03/04/20 13:30 22 Mechanical Ventilator 85 03/04/20 13:15 20 110/56 Mechanical Ventilator 85 03/04/20 13:15 22 Mechanical Ventilator 85 03/04/20 13:00 22 116/59 Mechanical Ventilator 85 03/04/20 13:00 22 Mechanical Ventilator 85 03/04/20 13:00 93 22 116/59 (78) 100 03/04/20 12:45 22 112/64 Mechanical Ventilator 85 03/04/20 12:45 22 Mechanical Ventilator 85 03/04/20 12:30 94 22 112/64 (80) 100 03/04/20 12:30 20 112/70 Mechanical Ventilator 85 03/04/20 12:30 22 Mechanical Ventilator 85 03/04/20 12:15 20 98/60 Non-Rebreather 85 03/04/20 12:00 97 22 102/59 (73) 100 03/04/20 12:00 77 03/04/20 12:00 Mechanical Ventilator 03/04/20 11:45 20 107/60 Mechanical Ventilator 85 03/04/20 11:45 22 Mechanical Ventilator 85 03/04/20 11:30 22 107/56 Mechanical Ventilator 85 03/04/20 11:30 25 Mechanical Ventilator 85 12/7/20 11:30 86 22 100 Mechanical Ventilator 85 86 26 03/04/20 11:30 96 22 107/56 (73) 100 03/04/20 11:15 24 146/67 Mechanical Ventilator 85 03/04/20 11:15 30 Mechanical Ventilator 85 03/04/20 11:00 107 29 162/70 (100) 100 03/04/20 11:00 26 162/70 Mechanical Ventilator 85 03/04/20 11:00 30 Mechanical Ventilator 85 03/04/20 10:45 31 159/79 Mechanical Ventilator 85 03/04/20 10:45 30 Mechanical Ventilator 10.0 85 03/04/20 10:30 116 36 171/88 (115) 100 03/04/20 10:30 35 171/88 Mechanical Ventilator 85 03/04/20 10:15 30 171/88 Mechanical Ventilator 85 03/04/20 10:00 85 03/04/20 10:00 33 192/109 Mechanical Ventilator 85 03/04/20 10:00 107 34 159/79 (105) 100 03/04/20 09:54 127/67 03/04/20 09:51 89 127/67 03/04/20 09:51 89 127/67 03/04/20 09:30 101 30 142/67 (92) 100 03/04/20 09:00 100 26 151/73 (99) 100 03/04/20 09:00 20 151/73 Mechanical Ventilator 100 03/04/20 08:30 101 22 101/61 (74) 100 Labs: Laboratory Tests 03/04/20 08:39: Arterial Blood pH 7.352, Arterial Blood Partial Pressure CO2 51.6H, Arterial Blood Partial Pressure O2 168.9H, Arterial Blood HCO3 28.0H, Arterial Blood Oxygen Saturation 98.6, Arterial Blood Base Excess 1.9, Bryan Test Positive 03/05/20 04:00: White Blood Count 28.4*H, Red Blood Count 3.47L, Hemoglobin 9.8L, Hematocrit 28.9L, Mean Corpuscular Volume 83, Mean Corpuscular Hemoglobin 28.2, Mean Corpuscular Hemoglobin Concent 33.7, Red Cell Distribution Width 19.3H, Platelet Count 280, Mean Platelet Volume 9.0, Neutrophils (%) (Auto) , Lymphocytes (%) (A uto) , Monocytes (%) (Auto) , Eosinophils (%) (Auto) , Basophils (%) (Auto) , Neutrophils % (Manual) [Pending], Lymphocytes % (Manual) [Pending], Platelet Estimate [Pending], Platelet Morphology [Pending], Sodium Level 148H, Potassium Level 3.7, Chloride Level 109H, Carbon Dioxide Level 29, Blood Urea Nitrogen 58H , Creatinine 1.5H, Estimat Glomerular Filtration Rate 42.9, Glucose Level 193H, Calcium Level 9.3 Objective: deferred due to COVID Micro: Microbiology Date/Time Source Procedure Growth Status 03/03/20 16:30 Blood Blood Culture - Preliminary Resulted Accucheck: 186 Germán Feliz MD Mar 05, 2020 08:17
[2020-03-05] MEDS: Pantoprazole Inj IVP SCH ×2 (08:40→21:45)
[2020-03-05] MEDS: Heparin 5000 units/ml inj SUBQ SCH ×2 (08:40→21:45)
[2020-03-05] MEDS: Multivitamins W/Minerals 15 ML UDC NG SCH (08:40)
[2020-03-05] MEDS: Aspirin Baby 81mg NG SCH (08:41)
[2020-03-05] MEDS: Isoniazid 300mg tab ORAL SCH (08:41)
[2020-03-05] MEDS: Nitroglycerin 2% oint pkt TOPIC SCH (08:42)
[2020-03-05] MEDS: Pyridoxine 50mg tab ORAL SCH (08:42)
[2020-03-05] MEDS: Metoprolol Tartrate 100mg tab NG SCH ×2 (08:43→21:45)
--- NOTE | 2020-03-05 09:00 | NUR ---
NURSE NOTES: Versed drip was titrated up to 3mg/hr to maintain RASS score of -2 light sedation. AM meds were administered. Lidoderm patch and Nitro-bid topical were held since pt's BP dropped too low post admin yesterday. Oral care was done. Pt repositioned for comfort.
[2020-03-05] MEDS: Levemir Flexpen SUBQ SCH ×2 (09:50→21:00)
--- NOTE | 2020-03-05 10:00 | NUR ---
NURSE NOTES: Pt was seen by Dr. Lopez. MD was updated on pt's current status. No new orders were received at this time.
--- NOTE | 2020-03-05 10:30 | NUR ---
NURSE NOTES: FIO2 was titrated up to 85% post ABG results. O2Sat remains within normal limits.
--- NOTE | 2020-03-05 11:06 | Infectious Diseases Prog Note ---
Assessment/Plan Assessment/Plan antibiotics : vancomycin iv, cefepime isoniazid, rifampin, PZA, ethambutol, pyridoxine 12.7.20 - A 1. MRSA cavitary pneumonia 2. MRSA sepsis r/o endocarditis 3. diabetes mellitus 4. hypertension 5. COPD 6. respiratory failure 7. aortic stenosis 8. COVID 19 pneumonia on 85 percent FiO2,saturation 100 % s/p ivermectin 11.27.20 s/p remdesivir 9, leucocytosis likely secondary to steroids improving 10. r/o TB + AFB in sputum from 11.2.20 P 1. continue iv vancomycin 9 more days 2. continue cefepime 3. continue decadron 4. continue isoniazid, rifampin, PZA, ethambutol, pyridoxine 5. will follow up cultures 6. continue isolation Subjective ROS Limited/Unobtainable: Yes Allergies: Coded Allergies: No Known Allergies (Unverified , 07/30/15) Objective Last 24 Hour Vital Signs Date Time Temp Pulse Resp B/P (MAP) Pulse Ox O2 Delivery O2 Flow Rate FiO2 03/05/20 10:00 105 19 131/67 (88) 100 03/05/20 09:30 110 13 127/61 (83) 100 03/05/20 09:00 85 03/05/20 09:00 97.9 120 37 135/75 (95) 97 03/05/20 08:43 92 165/82 03/05/20 08:43 112 165/75 03/05/20 08:30 119 38 142/76 (98) 96 03/05/20 08:00 115 38 165/95 (118) 96 03/05/20 08:00 Mechanical Ventilator 03/05/20 08:00 115 03/05/20 08:00 50 03/05/20 07:45 110 38 100 Mechanical Ventilator 55 111 32 55 03/05/20 07:30 106 35 147/69 (95) 96 03/05/20 07:00 92 29 115/56 (75) 96 03/05/20 07:00 29 115/56 Mechanical Ventilator 55 03/05/20 07:00 29 Mechanical Ventilator 55 03/05/20 06:30 100 26 119/61 (80) 98 03/05/20 06:00 97 21 103/55 (71) 97 03/05/20 06:00 27 103/55 Mechanical Ventilator 60 03/05/20 06:00 27 Mechanical Ventilator 60 03/05/20 05:30 115 20 138/65 (89) 93 03/05/20 05:20 30 Mechanical Ventilator 60 03/05/20 05:19 30 156/84 Mechanical Ventilator 60 03/05/20 05:00 111 29 156/84 (108) 96 03/05/20 05:00 30 156/84 Mechanical Ventilator 60 03/05/20 05:00 20 Mechanical Ventilator 60 03/05/20 04:30 106 29 157/89 (111) 94 03/05/20 04:00 99.5 108 25 157/86 (109) 98 03/05/20 04:00 32 157/89 Mechanical Ventilator 50 03/05/20 04:00 30 Mechanical Ventilator 50 03/05/20 04:00 Mechanical Ventilator 03/05/20 04:00 108 03/05/20 04:00 50 03/05/20 03:42 109 24 100 Mechanical Ventilator 60 113 24 60 03/05/20 03:30 108 25 162/75 (104) 97 03/05/20 03:00 110 30 130/96 (107) 100 03/05/20 03:00 30 130/96 Mechanical Ventilator 60 03/05/20 03:00 30 Mechanical Ventilator 60 03/05/20 02:30 113 37 165/90 (115) 94 03/05/20 02:00 22 145/104 Mechanical Ventilator 60 03/05/20 02:00 22 Mechanical Ventilator 60 03/05/20 02:00 112 22 145/104 (118) 99 03/05/20 01:30 107 31 166/79 (108) 95 03/05/20 01:00 13 172/88 Mechanical Ventilator 60 03/05/20 01:00 13 Mechanical Ventilator 60 03/05/20 01:00 111 13 172/88 (116) 97 03/05/20 00:30 110 27 158/98 (118) 97 03/05/20 00:00 Mechanical Ventilator 03/05/20 00:00 106 03/05/20 00:00 29 152/80 Mechanical Ventilator 60 03/05/20 00:00 29 Mechanical Ventilator 60 03/05/20 00:00 99.7 95 29 152/80 (104) 98 03/05/20 00:00 60 03/04/20 23:30 106 24 151/88 (109) 99 03/04/20 23:00 108 22 133/75 (94) 100 03/04/20 23:00 22 133/75 Mechanical Ventilator 75 03/04/20 23:00 22 Mechanical Ventilator 75 03/04/20 22:53 108 22 100 Mechanical Ventilator 85 106 22 85 03/04/20 22:30 111 28 142/84 (103) 99 03/04/20 22:00 25 173/91 Mechanical Ventilator 75 03/04/20 22:00 25 Mechanical Ventilator 75 03/04/20 22:00 102 37 173/91 (118) 93 03/04/20 21:30 113 33 163/84 (110) 96 03/04/20 21:00 100 22 117/61 (79) 100 03/04/20 21:00 32 117/61 Mechanical Ventilator 75 03/04/20 21:00 32 Mechanical Ventilator 75 03/04/20 20:53 98 106/60 03/04/20 20:30 79 22 115/65 (82) 100 03/04/20 20:00 75 03/04/20 20:00 Mechanical Ventilator 03/04/20 20:00 22 112/58 Mechanical Ventilator 75 03/04/20 20:00 22 Mechanical Ventilator 75 03/04/20 20:00 98.8 79 22 112/58 (76) 100 03/04/20 19:47 82 22 100 Mechanical Ventilator 85 81 22 03/04/20 19:30 97 22 106/62 (77) 100 03/04/20 19:17 67 03/04/20 19:00 75 22 114/61 (78) 100 03/04/20 19:00 22 114/61 Mechanical Ventilator 85 03/04/20 19:00 20 Mechanical Ventilator 85 03/04/20 18:00 20 102/51 Mechanical Ventilator 85 03/04/20 18:00 20 Mechanical Ventilator 85 03/04/20 18:00 81 22 102/51 (68) 100 03/04/20 17:30 96 22 106/55 (72) 100 03/04/20 17:00 98.0 109 22 141/74 (96) 100 03/04/20 17:00 20 140/70 Mechanical Ventilator 85 03/04/20 17:00 20 Mechanical Ventilator 85 03/04/20 16:45 20 120/70 Mechanical Ventilator 85 03/04/20 16:34 22 102/59 Mechanical Ventilator 10.0 85 03/04/20 16:33 20 87/53 Mechanical Ventilator 85 03/04/20 16:30 89 19 107/45 (65) 100 03/04/20 16:00 97 03/04/20 16:00 20 90/48 Mechanical Ventilator 85 03/04/20 16:00 20 Mechanical Ventilator 85 03/04/20 16:00 Mechanical Ventilator 03/04/20 16:00 85 22 90/48 (62) 100 03/04/20 16:00 85 03/04/20 15:45 20 100/60 Mechanical Ventilator 85 03/04/20 15:30 99 22 110/58 (75) 100 03/04/20 15:30 20 110/58 Mechanical Ventilator 85 03/04/20 15:29 76 22 100 Mechanical Ventilator 85 78 22 03/04/20 15:15 20 112/56 Mechanical Ventilator 85 03/04/20 15:00 81 22 152/71 (98) 100 03/04/20 15:00 20 100/60 Mechanical Ventilator 85 03/04/20 15:00 20 Mechanical Ventilator 85 03/04/20 14:30 77 22 109/50 (69) 100 03/04/20 14:00 95 22 111/71 (84) 100 03/04/20 14:00 22 111/71 Mechanical Ventilator 85 03/04/20 14:00 20 Mechanical Ventilator 85 03/04/20 13:30 89 22 102/59 (73) 100 03/04/20 13:30 22 102/59 Mechanical Ventilator 85 03/04/20 13:30 22 Mechanical Ventilator 85 03/04/20 13:15 20 110/56 Mechanical Ventilator 85 03/04/20 13:15 22 Mechanical Ventilator 85 03/04/20 13:00 22 116/59 Mechanical Ventilator 85 03/04/20 13:00 22 Mechanical Ventilator 85 03/04/20 13:00 93 22 116/59 (78) 100 03/04/20 12:45 22 112/64 Mechanical Ventilator 85 03/04/20 12:45 22 Mechanical Ventilator 85 03/04/20 12:30 94 22 112/64 (80) 100 03/04/20 12:30 20 112/70 Mechanical Ventilator 85 03/04/20 12:30 22 Mechanical Ventilator 85 03/04/20 12:15 20 98/60 Non-Rebreather 85 03/04/20 12:00 97 22 102/59 (73) 100 03/04/20 12:00 77 03/04/20 12:00 Mechanical Ventilator 03/04/20 11:45 20 107/60 Mechanical Ventilator 85 03/04/20 11:45 22 Mechanical Ventilator 85 03/04/20 11:30 22 107/56 Mechanical Ventilator 85 03/04/20 11:30 25 Mechanical Ventilator 85 03/04/20 11:30 86 22 100 Mechanical Ventilator 85 86 26 03/04/20 11:30 96 22 107/56 (73) 100 03/04/20 11:15 24 146/67 Mechanical Ventilator 85 03/04/20 11:15 30 Mechanical Ventilator 85 Height (Feet): 5 Height (Inches): 1.00 Weight (Pounds): 168 HEENT: other - intubated Microbiology Date/Time Source Procedure Growth Status 03/03/20 16:30 Blood Blood Culture - Preliminary Resulted Laboratory Tests Test 03/05/20 04:00 03/05/20 09:02 White Blood Count 28.4 K/UL (4.8-10.8) *H Red Blood Count 3.47 M/UL (4.20-5.40) L Hemoglobin 9.8 G/DL (12.0-16.0) L Hematocrit 28.9 % (37.0-47.0) L Mean Corpuscular Volume 83 FL (80-99) Mean Corpuscular Hemoglobin 28.2 PG (27.0-31.0) Mean Corpuscular Hemoglobin Concent 33.7 G/DL (32.0-36.0) Red Cell Distribution Width 19.3 % (11.6-14.8) H Platelet Count 280 K/UL (150-450) Mean Platelet Volume 9.0 FL (6.5-10.1) Neutrophils (%) (Auto) % (45.0-75.0) Lymphocytes (%) (Auto) % (20.0-45.0) Monocytes (%) (Auto) % (1.0-10.0) Eosinophils (%) (Auto) % (0.0-3.0) Basophils (%) (Auto) % (0.0-2.0) Differential Total Cells Counted 100 Neutrophils % (Manual) 88 % (45-75) H Lymphocytes % (Manual) % (20-45) Monocytes % (Manual) 1 % (1-10) Eosinophils % (Manual) 0 % (0-3) Basophils % (Manual) 0 % (0-2) Band Neutrophils 11 % (0-8) H Platelet Estimate Adequate Platelet Morphology Normal Hypochromasia 1+ Anisocytosis 1+ Sodium Level 148 MMOL/L (136-145) H Potassium Level 3.7 MMOL/L (3.5-5.1) Chloride Level 109 MMOL/L (98-107) H Carbon Dioxide Level 29 MMOL/L (21-32) Blood Urea Nitrogen 58 mg/dL (7-18) H Creatinine 1.5 MG/DL (0.55-1.30) H Estimat Glomerular Filtration Rate 42.9 mL/min (>60) Glucose Level 193 MG/DL (74-106) H Calcium Level 9.3 MG/DL (8.5-10.1) Arterial Blood pH 7.491 (7.350-7.450) Arterial Blood Partial Pressure CO2 37.0 mmHg (35.0-45.0) Arterial Blood Partial Pressure O2 47.7 mmHg (75.0-100.0) Arterial Blood HCO3 27.6 mmol/L (22.0-26.0) H Arterial Blood Oxygen Saturation 85.4 % (95-100) *L Arterial Blood Base Excess 4.1 (-2-2) H Bryan Test Positive Current Medications Medications (Trade) Dose Ordered Sig/Ivana Route PRN Reason Start Time Stop Time Status Last Admin Dose Admin Acetaminophen (Tylenol) 650 mg EVERY 6 HOURS PRN NG Mild Pain (Pain Scale 1-3) 02/27/20 07:45 03/28/20 07:44 03/05/20 05:21 Amlodipine Besylate (Norvasc) 5 mg DAILY NG 03/04/20 09:00 04/03/20 08:59 03/05/20 08:43 Aspirin (ASA) 81 mg DAILY NG 02/27/20 09:00 03/30/20 08:59 03/05/20 08:41 Cefepime HCl 1 gm/ Dextrose 55 ml @ 110 mls/hr Q24H IVPB 03/04/20 01:00 03/11/20 00:59 03/04/20 23:42 Chlorhexidine Gluconate (Divina-Hex 2%) 1 applic DAILY@2000 TOPIC 02/26/20 20:00 05/26/20 19:59 03/04/20 20:52 Clonidine HCl (Catapres Tab) 0.1 mg Q4H PRN ORAL SBP > 150mmHg 02/06/20 07:00 05/06/20 06:59 03/03/20 06:00 Dexamethasone Sodium Phosphate (Decadron 4mg/ml vial) 6 mg Q24H IVP 03/02/20 12:00 03/11/20 12:01 03/04/20 13:39 Dextrose (Dextrose 50%) 25 ml Q30M PRN IV Hypoglycemia 01/28/20 22:45 04/27/20 22:44 Dextrose (Dextrose 50%) 50 ml Q30M PRN IV Hypoglycemia 01/28/20 22:45 04/27/20 22:44 Epoetin Haseeb (Epoetin Haseeb-EPBX(NON ESRD)) 6,000 unit WED-WED-WED SUBQ 03/04/20 21:00 06/02/20 20:59 03/04/20 20:52 Ethambutol HCl (Myambutol) 800 mg DAILY ORAL 03/04/20 13:00 04/03/20 12:59 03/05/20 08:39 Fentanyl Citrate 250 ml @ 1 mls/hr Q24H IV 02/29/20 15:00 03/06/20 14:59 03/05/20 05:19 Furosemide (Lasix) 20 mg EVERY 12 HOURS IV 03/01/20 21:00 03/31/20 20:59 03/05/20 08:40 Guaifenesin/ Dextromethorphan (Robitussin DM Syrup) 15 ml Q4H PRN ORAL For Cough 02/12/20 16:53 05/12/20 16:52 02/19/20 22:21 Heparin Sodium (Porcine) (Heparin 5000 units/ml) 5,000 units EVERY 12 HOURS SUBQ 02/28/20 21:00 04/13/20 20:59 03/05/20 08:40 Hydralazine HCl (Apresoline) 25 mg Q6H PRN ORAL SBP above 150 02/27/20 23:15 05/27/20 23:14 03/03/20 02:07 Insulin Aspart (NovoLOG) Q6HR SUBQ 01/29/20 00:00 04/28/20 00:00 03/05/20 06:09 Insulin Detemir (Levemir) 15 units EVERY 12 HOURS SUBQ 03/04/20 09:00 05/30/20 08:59 03/05/20 09:50 Ipratropium Cable (Atrovent Inh) 1 puffs Q4HRT INH 02/28/20 15:00 03/19/20 17:59 03/05/20 09:30 Isoniazid (Inh) 300 mg DAILY ORAL 03/04/20 13:00 04/03/20 12:59 03/05/20 08:41 Lidocaine (Lidoderm 5% PATCH) 1 patch DAILY TDERMAL 02/11/20 09:30 05/11/20 09:29 03/04/20 09:55 Methocarbamol (Robaxin) 500 mg Q8H PRN ORAL muscle spasm 02/11/20 09:30 03/12/20 09:29 03/05/20 01:07 Metoclopramide HCl (Reglan) 5 mg EVERY 6 HOURS NG 03/04/20 21:00 04/03/20 20:59 03/05/20 05:21 Metoprolol Tartrate (Lopressor) 100 mg Q12HR NG 03/03/20 10:00 05/04/20 09:59 03/05/20 08:43 Midazolam HCl 50 mg/Sodium Chloride 100 ml @ 0 mls/hr Q24H PRN IV SEDATION 02/29/20 07:30 03/06/20 14:59 03/05/20 05:20 Morphine Sulfate (Morphine Sulfate) 2 mg Q2H PRN IVP For Pain 4-10 02/24/20 15:00 03/06/20 14:59 03/03/20 20:02 Multivitamins (Multivitamins W/ Minerals 15ml Liquid) 15 ml DAILY NG 02/27/20 09:00 03/28/20 08:59 03/05/20 08:40 Nitroglycerin (Nitro-Bid) 1 inch DAILY TOPIC 02/29/20 10:00 03/30/20 09:59 03/04/20 09:54 Pantoprazole (Protonix) 40 mg EVERY 12 HOURS IVP 02/25/20 10:00 03/24/20 08:59 03/05/20 08:40 Pyrazinamide (Pza) 1,500 mg DAILY ORAL 03/04/20 13:00 04/03/20 12:59 03/05/20 08:40 Pyridoxine HCl (Vitamin B6) 50 mg DAILY ORAL 03/04/20 13:00 04/03/20 12:59 03/05/20 08:42 Rifampin (Rifadin) 600 mg DAILY ORAL 03/04/20 13:00 04/03/20 12:59 03/05/20 08:41 Sorbitol (sorbitoL) 30 ml Q8H PRN NG Constipation 02/28/20 16:15 03/29/20 16:14 02/28/20 17:08 Vancomycin HCl 250 ml @ 166.667 mls/hr Q24H IVPB 03/03/20 12:00 03/08/20 11:59 03/04/20 13:39 Vancomycin HCl (Vanco pharmacy to dose) 1 ea DAILY PRN MISC Per rx protocol 02/13/20 11:30 03/14/20 11:29 Messi Lopez MD Mar 05, 2020 11:06
--- NOTE | 2020-03-05 12:15 | NUR ---
NURSE NOTES: VS are stable. Pt remains -2 light sedation per RASS score while maintained on Versed drip at 3mcg/hr and Fentanyl drip at 200mcg/hr. Pt is maintained on cooling blanket to regulate body temperature. Rectal tube in place since previous shift, which is draining liquid/brown stool. Pt was repositioned for comfort. Oral care done.
[2020-03-05] MEDS: Vancomycin 1.25gm/250ml Premix IVPB SCH (12:59)
--- NOTE | 2020-03-05 13:34 | NUR ---
RD ASSESSMENT & RECOMMENDATIONS SEE CARE ACTIVITY FOR COMPLETE ASSESSMENT DAILY ESTIMATED NEEDS: Needs based on Critical care/ 54.9kg adjusted body wt of 75kg 22-30 kcals/kg 6822-1869 total kcals 1.2-2 g protein/kg 66- 109 g total protein 25-30 mL/kg 6651-6723 total fluid mLs NUTRITION DIAGNOSIS: * Altered nutrition related lab values R/T clinical status as evidenced by variable poc BGs (52-325 upon adm, now 200's and 300's-> now improved 83-186), elev WBC, elev K (5.4 -> wnl-> 6.3* -> now wnl), elev LFTs. CURRENT TF:Glucerna 1.2 @75ml/hr x 24 hrs + Prosource 1pkt BID ENTERAL NUTRITION RECOMMENDATIONS: Glucerna 1.2 @ 55ml/hr x 24 hrs + Prosource 1pkt BID to provide 1320ml, 1584kcal, 79g +22g prot, 1063ml free water * LOWER goal rate to 55ml/hr x 24 hrs- meets 100% est kcal/prot needs * Maintain added Prosource BID (11g pro each) to better meet est pro needs * HOB over 30 degrees/ water flush per MD ADDITIONAL RECOMMENDATIONS: * Calibrated bedscale wts-> daily wts for efficacy of TF's * Monitor lytes: critically elev K (6.3-> now wnl ) -> monitor need to change TF back to renal TF * Monitor BGs- previously 200's and 300's, on steroidal med -> lower TF goal rate not to exceed est needs . .
--- NOTE | 2020-03-05 14:59 | Surgery Progress Note ---
Surgery Progress Note Subjective Additional Comments less agitated dressings going well blister stable Objective Last 24 Hour Vital Signs Date Time Temp Pulse Resp B/P (MAP) Pulse Ox O2 Delivery O2 Flow Rate FiO2 03/05/20 14:00 95 24 150/76 (100) 100 03/05/20 14:00 22 130/60 Mechanical Ventilator 85 03/05/20 14:00 20 Mechanical Ventilator 85 03/05/20 13:30 92 25 153/75 (101) 100 03/05/20 13:00 97.3 89 22 161/78 (105) 100 03/05/20 13:00 20 130/65 Mechanical Ventilator 85 03/05/20 13:00 20 Mechanical Ventilator 85 03/05/20 12:30 85 19 150/79 (102) 100 03/05/20 12:00 97 22 140/77 (98) 100 03/05/20 12:00 20 130/60 Mechanical Ventilator 85 03/05/20 12:00 20 Mechanical Ventilator 85 03/05/20 12:00 Mechanical Ventilator 03/05/20 12:00 90 03/05/20 11:30 98 22 144/79 (100) 100 03/05/20 11:06 97 53 100 Mechanical Ventilator 85 98 28 85 03/05/20 11:00 98 22 136/69 (91) 100 03/05/20 11:00 20 137/67 Mechanical Ventilator 85 03/05/20 11:00 20 Mechanical Ventilator 85 03/05/20 10:30 98 19 137/67 (90) 100 03/05/20 10:00 105 19 131/67 (88) 100 03/05/20 10:00 20 131/67 Mechanical Ventilator 85 03/05/20 10:00 20 Mechanical Ventilator 85 03/05/20 09:30 110 13 127/61 (83) 100 03/05/20 09:00 37 142/76 Mechanical Ventilator 85 03/05/20 09:00 35 Mechanical Ventilator 85 03/05/20 09:00 85 03/05/20 09:00 97.9 120 37 135/75 (95) 97 03/05/20 08:43 92 165/82 03/05/20 08:43 112 165/75 03/05/20 08:30 119 38 142/76 (98) 96 03/05/20 08:00 115 38 165/95 (118) 96 03/05/20 08:00 Mechanical Ventilator 03/05/20 08:00 115 03/05/20 08:00 39 165/82 Mechanical Ventilator 55 03/05/20 08:00 38 Mechanical Ventilator 55 03/05/20 08:00 50 03/05/20 07:45 110 38 100 Mechanical Ventilator 55 111 32 55 03/05/20 07:30 106 35 147/69 (95) 96 03/05/20 07:00 92 29 115/56 (75) 96 03/05/20 07:00 29 115/56 Mechanical Ventilator 55 03/05/20 07:00 29 Mechanical Ventilator 55 03/05/20 06:30 100 26 119/61 (80) 98 03/05/20 06:00 97 21 103/55 (71) 97 03/05/20 06:00 27 103/55 Mechanical Ventilator 60 03/05/20 06:00 27 Mechanical Ventilator 60 03/05/20 05:30 115 20 138/65 (89) 93 03/05/20 05:20 30 Mechanical Ventilator 60 03/05/20 05:19 30 156/84 Mechanical Ventilator 60 03/05/20 05:00 111 29 156/84 (108) 96 03/05/20 05:00 30 156/84 Mechanical Ventilator 60 03/05/20 05:00 20 Mechanical Ventilator 60 03/05/20 04:30 106 29 157/89 (111) 94 03/05/20 04:00 99.5 108 25 157/86 (109) 98 03/05/20 04:00 32 157/89 Mechanical Ventilator 50 03/05/20 04:00 30 Mechanical Ventilator 50 03/05/20 04:00 Mechanical Ventilator 03/05/20 04:00 108 03/05/20 04:00 50 03/05/20 03:42 109 24 100 Mechanical Ventilator 60 113 24 60 03/05/20 03:30 108 25 162/75 (104) 97 03/05/20 03:00 110 30 130/96 (107) 100 03/05/20 03:00 30 130/96 Mechanical Ventilator 60 03/05/20 03:00 30 Mechanical Ventilator 60 03/05/20 02:30 113 37 165/90 (115) 94 03/05/20 02:00 22 145/104 Mechanical Ventilator 60 03/05/20 02:00 22 Mechanical Ventilator 60 12/8/20 02:00 112 22 145/104 (118) 99 03/05/20 01:30 107 31 166/79 (108) 95 03/05/20 01:00 13 172/88 Mechanical Ventilator 60 03/05/20 01:00 13 Mechanical Ventilator 60 03/05/20 01:00 111 13 172/88 (116) 97 03/05/20 00:30 110 27 158/98 (118) 97 03/05/20 00:00 Mechanical Ventilator 03/05/20 00:00 106 03/05/20 00:00 29 152/80 Mechanical Ventilator 60 03/05/20 00:00 29 Mechanical Ventilator 60 03/05/20 00:00 99.7 95 29 152/80 (104) 98 03/05/20 00:00 60 03/04/20 23:30 106 24 151/88 (109) 99 03/04/20 23:00 108 22 133/75 (94) 100 03/04/20 23:00 22 133/75 Mechanical Ventilator 75 03/04/20 23:00 22 Mechanical Ventilator 75 03/04/20 22:53 108 22 100 Mechanical Ventilator 85 106 22 85 03/04/20 22:30 111 28 142/84 (103) 99 03/04/20 22:00 25 173/91 Mechanical Ventilator 75 03/04/20 22:00 25 Mechanical Ventilator 75 03/04/20 22:00 102 37 173/91 (118) 93 03/04/20 21:30 113 33 163/84 (110) 96 03/04/20 21:00 100 22 117/61 (79) 100 03/04/20 21:00 32 117/61 Mechanical Ventilator 75 03/04/20 21:00 32 Mechanical Ventilator 75 03/04/20 20:53 98 106/60 03/04/20 20:30 79 22 115/65 (82) 100 03/04/20 20:00 75 03/04/20 20:00 Mechanical Ventilator 03/04/20 20:00 22 112/58 Mechanical Ventilator 75 03/04/20 20:00 22 Mechanical Ventilator 75 03/04/20 20:00 98.8 79 22 112/58 (76) 100 03/04/20 19:47 82 22 100 Mechanical Ventilator 85 81 22 03/04/20 19:30 97 22 106/62 (77) 100 03/04/20 19:17 67 03/04/20 19:00 75 22 114/61 (78) 100 03/04/20 19:00 22 114/61 Mechanical Ventilator 85 03/04/20 19:00 20 Mechanical Ventilator 85 03/04/20 18:00 20 102/51 Mechanical Ventilator 85 03/04/20 18:00 20 Mechanical Ventilator 85 03/04/20 18:00 81 22 102/51 (68) 100 03/04/20 17:30 96 22 106/55 (72) 100 03/04/20 17:00 98.0 109 22 141/74 (96) 100 03/04/20 17:00 20 140/70 Mechanical Ventilator 85 03/04/20 17:00 20 Mechanical Ventilator 85 03/04/20 16:45 20 120/70 Mechanical Ventilator 85 03/04/20 16:34 22 102/59 Mechanical Ventilator 10.0 85 03/04/20 16:33 20 87/53 Mechanical Ventilator 85 03/04/20 16:30 89 19 107/45 (65) 100 03/04/20 16:00 97 03/04/20 16:00 20 90/48 Mechanical Ventilator 85 03/04/20 16:00 20 Mechanical Ventilator 85 03/04/20 16:00 Mechanical Ventilator 03/04/20 16:00 85 22 90/48 (62) 100 03/04/20 16:00 85 03/04/20 15:45 20 100/60 Mechanical Ventilator 85 03/04/20 15:30 99 22 110/58 (75) 100 03/04/20 15:30 20 110/58 Mechanical Ventilator 85 03/04/20 15:29 76 22 100 Mechanical Ventilator 85 78 22 03/04/20 15:15 20 112/56 Mechanical Ventilator 85 03/04/20 15:00 81 22 152/71 (98) 100 03/04/20 15:00 20 100/60 Mechanical Ventilator 85 03/04/20 15:00 20 Mechanical Ventilator 85 I&O Intake and Output 03/04/20 03/05/20 19:00 07:00 Intake Total 1254.00 ml 1739.99 ml Output Total 1180 ml 1700 ml Balance 74.00 ml 39.99 ml Free Water 300 ml 365 ml IV Total 354.00 ml 514.99 ml Tube Feeding 600 ml 860 ml Output Urine Total 1180 ml 1700 ml # Bowel Movements 4 1 Dressing: saturated Cardiovascular: RSR Respiratory: decreased breath sounds Abdomen: non-tender, decreased bowel sounds Extremities: edema, no cyanosis, pulses, other Laboratory Tests Test 03/05/20 04:00 03/05/20 09:02 White Blood Count 28.4 K/UL (4.8-10.8) *H Red Blood Count 3.47 M/UL (4.20-5.40) L Hemoglobin 9.8 G/DL (12.0-16.0) L Hematocrit 28.9 % (37.0-47.0) L Mean Corpuscular Volume 83 FL (80-99) Mean Corpuscular Hemoglobin 28.2 PG (27.0-31.0) Mean Corpuscular Hemoglobin Concent 33.7 G/DL (32.0-36.0) Red Cell Distribution Width 19.3 % (11.6-14.8) H Platelet Count 280 K/UL (150-450) Mean Platelet Volume 9.0 FL (6.5-10.1) Neutrophils (%) (Auto) % (45.0-75.0) Lymphocytes (%) (Auto) % (20.0-45.0) Monocytes (%) (Auto) % (1.0-10.0) Eosinophils (%) (Auto) % (0.0-3.0) Basophils (%) (Auto) % (0.0-2.0) Differential Total Cells Counted 100 Neutrophils % (Manual) 88 % (45-75) H Lymphocytes % (Manual) % (20-45) Monocytes % (Manual) 1 % (1-10) Eosinophils % (Manual) 0 % (0-3) Basophils % (Manual) 0 % (0-2) Band Neutrophils 11 % (0-8) H Platelet Estimate Adequate Platelet Morphology Normal Hypochromasia 1+ Anisocytosis 1+ Sodium Level 148 MMOL/L (136-145) H Potassium Level 3.7 MMOL/L (3.5-5.1) Chloride Level 109 MMOL/L (98-107) H Carbon Dioxide Level 29 MMOL/L (21-32) Blood Urea Nitrogen 58 mg/dL (7-18) H Creatinine 1.5 MG/DL (0.55-1.30) H Estimat Glomerular Filtration Rate 42.9 mL/min (>60) Glucose Level 193 MG/DL (74-106) H Calcium Level 9.3 MG/DL (8.5-10.1) Arterial Blood pH 7.491 (7.350-7.450) Arterial Blood Partial Pressure CO2 37.0 mmHg (35.0-45.0) Arterial Blood Partial Pressure O2 47.7 mmHg (75.0-100.0) Arterial Blood HCO3 27.6 mmol/L (22.0-26.0) H Arterial Blood Oxygen Saturation 85.4 % (95-100) *L Arterial Blood Base Excess 4.1 (-2-2) H Bryan Test Positive Plan Problems: (1) CHF (congestive heart failure) (2) SVT (supraventricular tachycardia) (3) Sepsis Assessment & Plan: patient currently in ICU. has declined since admission and intubated on vent support noted to have very agitated and requiring restraints for patients safety unfortunately she is very strong and pulls against restraints. weaning trials daily and difficult 2/2 agitation has developed wrist abrasions superficial with epidermal loss. has developed hand blister blood blister stable not infected wrap xerofoam on wrist and hand, apply abd, and wrap with kerlix sedation protocol will monitor closely (4) JC (acute kidney injury) (5) Febrile illness (6) Hypertensive urgency (7) Elevated d-dimer (8) Low back pain (9) Constipation (10) Fatty liver (11) Hypokalemia (12) Dizziness (13) Dizziness (14) Diabetes mellitus (15) Back pain (16) Enteritis (17) Gastritis (18) Hyperglycemia (19) Hyperglycemia (20) Hyperglycemia (21) Hyperlipemia (22) Neuropathy (23) Renal insufficiency (24) Renal insufficiency (25) Lung mass (26) Lung mass (27) UTI (urinary tract infection) (28) Neck pain (29) Abdominal pain (30) Bronchitis (31) Chest pain (32) Hypertension (33) Hypertension (34) Hypotension (35) Pneumonia (36) Asthma (37) URI (upper respiratory infection) (38) Pain (39) Cellulitis, leg (40) Painful diabetic neuropathy (41) COPD exacerbation (42) Left shoulder strain (43) Neck strain (44) Abnormal LFTs (45) Trapezius muscle spasm (46) Chronic hip pain (47) Dizziness of unknown cause (48) Rotator cuff impingement syndrome of right shoulder Isai Pena Mar 05, 2020 14:59
--- NOTE | 2020-03-05 15:54 | NUR ---
NURSE NOTES: Tylenol was administered per PRN order. Pt's heart rate is elevated while pt is maintained on cooling blanket with Temp fluctuating above 100F, and while on Fentanyl and Versed drips. Pt's neuro response per protocol indicates -2 light sedation.
--- NOTE | 2020-03-05 16:06 | NUR ---
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
--- NOTE | 2020-03-05 17:55 | NUR ---
NURSE NOTES: New Fentanyl bag was picked up from pharmacy and scanned, to replace current bag that is empty now. Maintained at same rate 200mcg/hr since pt remains -2 light sedation per RASS score.
--- NOTE | 2020-03-05 18:15 | NUR ---
NURSE NOTES: Pt was cleaned, gown/bed linens were changed. Oral care was done. Pt was repositioned for comfort with bilateral extremities elevated. Total output of stool via rectal tube during my [id number].
--- NOTE | 2020-03-05 19:30 | NUR ---
NURSE HAND-OFF REPORT: Latest Vital Signs: Temperature 99.0 , Pulse 98 , B/P 159 /87 , Respiratory Rate 24 , O2 SAT 100 , Mechanical Ventilator with settings AC22, VT550, Peep 12, FIO2 85%. Vital Sign Comment: Pt remains -2 light sedation per RASS score while maintained on Versed drip at 3mg/hr and Fentanyl drip at 200ml/hr. Pt is maintained on cooling blanket to regulate body temperature, which is being continuously monitored via rectal thermometer. EKG Rhythm: Normal Sinus Rhythm Rhythm change?: N Notified?: Jay briceño MD Response: Latest Pineda Fall Score: 50 Fall Risk: High Risk Safety Measures: Call light Within Reach, Bed Alarm Zone 1, Side Rails Side Rails x3, Bed position Low and Locked. Fall Precautions: Door Sign Report given to Danilo BUSCH. Endorsed plan of care.
--- NOTE | 2020-03-05 19:40 | NUR ---
RESPIRATORY NOTE: Received pt on AC VC+ 22, 550VT, 85%, PEEP +12. Pt intubated w/ ETT 7.5 @ 25cm lipline, secured by anchorfast. Pt restless/disoriented. B/S deirdre. rhonchi/diminished, sxn moderate to large amounts of thick, beck-yellow secretions w/ occasional blood clots. Vent plugged into red outlet, ambubag at bedside. Pt in no apparent distress at this time. Will continue to monitor pt.
--- NOTE | 2020-03-05 20:00 | NUR ---
NURSE NOTES: Pt was assessed after receiving change of shift report from Kaylee BUSCH. Pt is sedated RASS score of -2 light sedation while on Fentanyl drip at 200mcg/hr infusing via right upper arm double lumen PICC line. Orally intubated, ETT 7.5 at 25cm lipline with vent settings AC22, VT550, Peep 12, FIO2 85% with O2Sat at 100%. Bilateral rales noted on auscultation. ST on environmental monitoring technician, HR 97 NSR. Temp 97.9F rectal. Pt is maintained on cooling blanket to regulate body temperature. OGT with Glucerna 1.2 is infusing at 75ml/hour; residual noted=60ml. OGT was flushed with 150ml/water per order. Flores catheter is present, draining clear/yellow urine. Skin alterations noted on sacral and upper extremities. Pt is on pressure release mattress. Bilateral soft wrist restrains are present to prevent self/extubation as pt remains impulsive, reaching for ETT even while -2 RASS score. Skin/vascular integrity at restraint site remains within normal limits. HOB at 30degrees, bed locked, three side rails up, and call light is within reach. Will continue to monitor pt and follow plan of care per MD orders and protocol.
[2020-03-05] MEDS: Dyna-Hex 2% Top Sol 2oz TOPIC SCH (21:45)
--- NOTE | 2020-03-05 22:00 | NUR ---
NURSE NOTES: Pt was assessed . Pt maintains sedation RASS score of -2 light sedation while on Fentanyl drip at 200mcg/hr and Versed ggt at 3mg/hr via right upper arm double lumen PICC line. FiO2 tapered down to 75%. dispatcher street department showing HR [address]. Temp 98.5F rectal. Pt is maintained on cooling blanket to regulate body temperature. Skin alterations noted precautions observed. HOB at 30degrees, bed locked, three side rails up, and call light is within reach. Repositioned patient and oral care performed. Will continue to monitor.
--- NOTE | 2020-03-05 22:56 | General Progress Note ---
Subjective Allergies: Coded Allergies: No Known Allergies (Unverified , 07/30/15) Subjective Above noted sedated d/w staff climate scientist Objective Last 24 Hour Vital Signs Date Time Temp Pulse Resp B/P (MAP) Pulse Ox O2 Delivery O2 Flow Rate FiO2 03/05/20 21:45 104 150/80 03/05/20 19:35 104 24 100 Mechanical Ventilator 85 105 25 85 03/05/20 19:00 104 24 159/87 (111) 100 03/05/20 19:00 22 150/80 Mechanical Ventilator 85 03/05/20 19:00 20 Mechanical Ventilator 85 03/05/20 18:00 90 24 166/82 (110) 100 03/05/20 18:00 22 139/77 Mechanical Ventilator 85 03/05/20 18:00 22 Mechanical Ventilator 85 03/05/20 17:55 30 143/82 Mechanical Ventilator 10.0 85 03/05/20 17:54 28 143/82 Mechanical Ventilator 85 03/05/20 17:00 107 30 143/82 (102) 100 03/05/20 17:00 28 143/82 Mechanical Ventilator 85 03/05/20 17:00 22 Mechanical Ventilator 85 03/05/20 16:24 99.0 03/05/20 16:00 85 03/05/20 16:00 118 03/05/20 16:00 Mechanical Ventilator 03/05/20 16:00 30 160/90 Mechanical Ventilator 85 03/05/20 16:00 22 Mechanical Ventilator 85 03/05/20 16:00 114 29 164/96 (118) 100 03/05/20 16:00 Mechanical Ventilator 03/05/20 15:20 109 34 100 Mechanical Ventilator 85 104 28 85 03/05/20 15:00 108 33 155/91 (112) 100 03/05/20 15:00 22 155/91 Mechanical Ventilator 85 03/05/20 15:00 22 Mechanical Ventilator 85 03/05/20 14:30 100 37 124/101 (109) 100 03/05/20 14:00 95 24 150/76 (100) 100 03/05/20 14:00 22 130/60 Mechanical Ventilator 85 03/05/20 14:00 20 Mechanical Ventilator 85 03/05/20 13:30 92 25 153/75 (101) 100 03/05/20 13:00 97.3 89 22 161/78 (105) 100 03/05/20 13:00 20 130/65 Mechanical Ventilator 85 03/05/20 13:00 20 Mechanical Ventilator 85 03/05/20 12:30 85 19 150/79 (102) 100 03/05/20 12:00 97 22 140/77 (98) 100 03/05/20 12:00 20 130/60 Mechanical Ventilator 85 03/05/20 12:00 20 Mechanical Ventilator 85 03/05/20 12:00 Mechanical Ventilator 03/05/20 12:00 90 03/05/20 11:30 98 22 144/79 (100) 100 03/05/20 11:06 97 34 100 Mechanical Ventilator 85 98 28 85 03/05/20 11:00 98 22 136/69 (91) 100 03/05/20 11:00 20 137/67 Mechanical Ventilator 85 03/05/20 11:00 20 Mechanical Ventilator 85 03/05/20 10:30 98 19 137/67 (90) 100 03/05/20 10:00 105 19 131/67 (88) 100 03/05/20 10:00 20 131/67 Mechanical Ventilator 85 03/05/20 10:00 20 Mechanical Ventilator 85 03/05/20 09:30 110 13 127/61 (83) 100 03/05/20 09:00 37 142/76 Mechanical Ventilator 85 03/05/20 09:00 35 Mechanical Ventilator 85 03/05/20 09:00 85 03/05/20 09:00 97.9 120 37 135/75 (95) 97 03/05/20 08:43 92 165/82 03/05/20 08:43 112 165/75 03/05/20 08:30 119 38 142/76 (98) 96 03/05/20 08:00 115 38 165/95 (118) 96 03/05/20 08:00 Mechanical Ventilator 03/05/20 08:00 115 03/05/20 08:00 39 165/82 Mechanical Ventilator 55 03/05/20 08:00 38 Mechanical Ventilator 55 03/05/20 08:00 50 03/05/20 07:45 110 38 100 Mechanical Ventilator 55 111 32 55 03/05/20 07:30 106 35 147/69 (95) 96 03/05/20 07:00 92 29 115/56 (75) 96 03/05/20 07:00 29 115/56 Mechanical Ventilator 55 03/05/20 07:00 29 Mechanical Ventilator 55 03/05/20 06:30 100 26 119/61 (80) 98 03/05/20 06:00 97 21 103/55 (71) 97 03/05/20 06:00 27 103/55 Mechanical Ventilator 60 03/05/20 06:00 27 Mechanical Ventilator 60 03/05/20 05:30 115 20 138/65 (89) 93 03/05/20 05:20 30 Mechanical Ventilator 60 03/05/20 05:19 30 156/84 Mechanical Ventilator 60 03/05/20 05:00 111 29 156/84 (108) 96 03/05/20 05:00 30 156/84 Mechanical Ventilator 60 03/05/20 05:00 20 Mechanical Ventilator 60 03/05/20 04:30 106 29 157/89 (111) 94 03/05/20 04:00 99.5 108 25 157/86 (109) 98 03/05/20 04:00 32 157/89 Mechanical Ventilator 50 03/05/20 04:00 30 Mechanical Ventilator 50 03/05/20 04:00 Mechanical Ventilator 03/05/20 04:00 108 03/05/20 04:00 50 03/05/20 03:42 109 24 100 Mechanical Ventilator 60 113 24 60 03/05/20 03:30 108 25 162/75 (104) 97 03/05/20 03:00 110 30 130/96 (107) 100 03/05/20 03:00 30 130/96 Mechanical Ventilator 60 03/05/20 03:00 30 Mechanical Ventilator 60 03/05/20 02:30 113 37 165/90 (115) 94 03/05/20 02:00 22 145/104 Mechanical Ventilator 60 03/05/20 02:00 22 Mechanical Ventilator 60 03/05/20 02:00 112 22 145/104 (118) 99 03/05/20 01:30 107 31 166/79 (108) 95 03/05/20 01:00 13 172/88 Mechanical Ventilator 60 03/05/20 01:00 13 Mechanical Ventilator 60 03/05/20 01:00 111 13 172/88 (116) 97 03/05/20 00:30 110 27 158/98 (118) 97 03/05/20 00:00 Mechanical Ventilator 03/05/20 00:00 106 03/05/20 00:00 29 152/80 Mechanical Ventilator 60 03/05/20 00:00 29 Mechanical Ventilator 60 03/05/20 00:00 99.7 95 29 152/80 (104) 98 03/05/20 00:00 60 03/04/20 23:30 106 24 151/88 (109) 99 03/04/20 23:00 108 22 133/75 (94) 100 03/04/20 23:00 22 133/75 Mechanical Ventilator 75 03/04/20 23:00 22 Mechanical Ventilator 75 03/04/20 22:53 108 22 100 Mechanical Ventilator 85 106 22 85 Intake and Output 03/04/20 03/05/20 19:00 07:00 Intake Total 1254.00 ml 1739.99 ml Output Total 1180 ml 1700 ml Balance 74.00 ml 39.99 ml Free Water 300 ml 365 ml IV Total 354.00 ml 514.99 ml Tube Feeding 600 ml 860 ml Output Urine Total 1180 ml 1700 ml # Bowel Movements 4 1 Laboratory Tests 03/05/20 04:00: White Blood Count 28.4*H, Red Blood Count 3.47L, Hemoglobin 9.8L, Hematocrit 28.9L, Mean Corpuscular Volume 83, Mean Corpuscular Hemoglobin 28.2, Mean Corpuscular Hemoglobin Concent 33.7, Red Cell Distribution Width 19.3H, Platelet Count 280, Mean Platelet Volume 9.0, Neutrophils (%) (Auto) , Lymphocytes (%) (Auto) , Monocytes (%) (Auto) , Eosinophils (%) (Auto) , Basophils (%) (Auto) , Differential Total Cells Counted 100, Neutrophils % (Manual) 88H, Lymphocytes % (Manual) , Monocytes % (Manual) 1, Eosinophils % (Manual) 0, Basophils % (Manual) 0, Band Neutrophils 11H, Platelet Estimate Adequate, Platelet Morphology Normal, Hypochromasia 1+, Anisocytosis 1+, Sodium Level 148H, Potassium Level 3.7, Chloride Level 109H, Carbon Dioxide Level 29, Blood Urea Nitrogen 58H, Creatinine 1.5H, Estimat Glomerular Filtration Rate 42.9, Glucose Level 193H, Calcium Level 9.3 03/05/20 09:02: Arterial Blood pH 7.491H, Arterial Blood Partial Pressure CO2 37.0, Arterial Blood Partial Pressure O2 47.7*L, Arterial Blood HCO3 27.6H, Arterial Blood Oxygen Saturation 85.4*L, Arterial Blood Base Excess 4.1H, Bryan Test Positive Height (Feet): 5 Height (Inches): 1.00 Weight (Pounds): 168 Objective Patient seen in ICU On vent appears calm and comfortable (+) NGT feeds Assessment/Plan Assessment/Plan: Assessment - GIB - resolved - Anemia - TF residuals, possibly due to impaired gastric motility - COVID pneumonitis - Acute [place] - on ASA - Resp failure - malnutrition/feeding tube dependent - declining albumin - partly due to liver disease - fatty liver - hepatitis C with nodular liver, PCR (+) - abnormal LFT - due to COVD, fatty liver, and HCV - HTN - COPD - Lung mass - DM - poor prognosis Recommendations - Continue TF - protein powder - short term reglan - Sq heparin - increase free water to correct Na - monitor CBC - follow LFT - PPI --> now BID - Elevate HOB - outpatient HCV eradication - Outpatient colonoscopy I will be away until Wednesday Feliberto Pérez MD Mar 05, 2020 22:56
[2020-03-06] VITALS (48 sets, daily range): BP systolic 85–205; BP diastolic 55–106
--- NOTE | 2020-03-06 | NUR ---
NURSE NOTES: Bedside assessment performed, assessed pt for pain with a FLACC score of 0 noted. Glucose noted to be 285, coverage provided per sliding scale. Pt remains free from s/sx of acute cardiopulmonary distress at this time. Oral care and suctioning provided for excess secretions. RT present at bedside performing pt care. Pt tolerated care well and remains clean and dry. Fentanyl continues to infuse without incident with a RASS score of -2 noted. Pt repositioned for safety and comfort. Fall, Aspiration and Skin precautions observed. Pt remains resting in bed; Bed remains in the lowest position with the safety wheels engaged, call light within reach, side rails up x3 and bed alarm activated. Will continue plan of care. Will continue to monitor.
[2020-03-06] MEDS: Cefepime HCl 1 GM in D5W 55 ML IVPB SCH (00:17)
[2020-03-06] MEDS: Metoclopramide 10mg/10ml Liq NG SCH ×4 (00:17→18:28)
[2020-03-06] MEDS: Midazolam for drip 50 MG in NS 90 ML IV PRN ×3 (00:18→12:10)
[2020-03-06] MEDS: NovoLOG Insulin Flexpen SUBQ SCH ×4 (00:18→18:29)
--- NOTE | 2020-03-06 01:30 | Cardiology Progress Note ---
Subjective DATE OF SERVICE: Mar 05, 2020 On isolation for Covid19 Remains orally intubated and on full vent support. BP parameters elevated still. 2D Echo reviewed - EF 45%, severe pulmonary hypertension, mild-moderate AV stenosis with ESTHER 1.5cm2 Objective Last 24 Hour Vital Signs Date Time Temp Pulse Resp B/P (MAP) Pulse Ox O2 Delivery O2 Flow Rate FiO2 03/06/20 00:18 22 Mechanical Ventilator 80 03/05/20 23:00 86 22 161/91 (114) 100 03/05/20 22:57 87 29 100 Mechanical Ventilator 80 91 29 80 03/05/20 22:30 88 22 161/70 (100) 100 03/05/20 22:00 106 22 149/97 (114) 100 03/05/20 21:45 104 150/80 03/05/20 21:30 101 22 148/113 (125) 100 03/05/20 21:00 101 22 155/73 (100) 100 03/05/20 20:30 102 22 153/78 (103) 100 03/05/20 20:00 97.9 103 22 153/92 (112) 100 03/05/20 20:00 106 03/05/20 20:00 80 03/05/20 20:00 Mechanical Ventilator 03/05/20 19:35 104 24 100 Mechanical Ventilator 85 105 25 85 03/05/20 19:30 105 22 166/91 (116) 100 03/05/20 19:00 104 24 159/87 (111) 100 03/05/20 19:00 22 150/80 Mechanical Ventilator 85 03/05/20 19:00 20 Mechanical Ventilator 85 03/05/20 18:00 90 24 166/82 (110) 100 03/05/20 18:00 22 139/77 Mechanical Ventilator 85 03/05/20 18:00 22 Mechanical Ventilator 85 03/05/20 17:55 30 143/82 Mechanical Ventilator 10.0 85 03/05/20 17:54 28 143/82 Mechanical Ventilator 85 03/05/20 17:00 107 30 143/82 (102) 100 03/05/20 17:00 28 143/82 Mechanical Ventilator 85 03/05/20 17:00 22 Mechanical Ventilator 85 03/05/20 16:24 99.0 03/05/20 16:00 85 03/05/20 16:00 118 03/05/20 16:00 Mechanical Ventilator 03/05/20 16:00 30 160/90 Mechanical Ventilator 85 03/05/20 16:00 22 Mechanical Ventilator 85 03/05/20 16:00 114 29 164/96 (118) 100 03/05/20 16:00 Mechanical Ventilator 03/05/20 15:20 109 34 100 Mechanical Ventilator 85 104 28 85 03/05/20 15:00 108 33 155/91 (112) 100 03/05/20 15:00 22 155/91 Mechanical Ventilator 85 03/05/20 15:00 22 Mechanical Ventilator 85 03/05/20 14:30 100 37 124/101 (109) 100 03/05/20 14:00 95 24 150/76 (100) 100 03/05/20 14:00 22 130/60 Mechanical Ventilator 85 03/05/20 14:00 20 Mechanical Ventilator 85 03/05/20 13:30 92 25 153/75 (101) 100 03/05/20 13:00 97.3 89 22 161/78 (105) 100 03/05/20 13:00 20 130/65 Mechanical Ventilator 85 03/05/20 13:00 20 Mechanical Ventilator 85 03/05/20 12:30 85 19 150/79 (102) 100 03/05/20 12:00 97 22 140/77 (98) 100 03/05/20 12:00 20 130/60 Mechanical Ventilator 85 03/05/20 12:00 20 Mechanical Ventilator 85 03/05/20 12:00 Mechanical Ventilator 03/05/20 12:00 90 03/05/20 11:30 98 22 144/79 (100) 100 03/05/20 11:06 97 34 100 Mechanical Ventilator 85 98 28 85 03/05/20 11:00 98 22 136/69 (91) 100 03/05/20 11:00 20 137/67 Mechanical Ventilator 85 03/05/20 11:00 20 Mechanical Ventilator 85 03/05/20 10:30 98 19 137/67 (90) 100 03/05/20 10:00 105 19 131/67 (88) 100 03/05/20 10:00 20 131/67 Mechanical Ventilator 85 03/05/20 10:00 20 Mechanical Ventilator 85 03/05/20 09:30 110 13 127/61 (83) 100 03/05/20 09:00 37 142/76 Mechanical Ventilator 85 03/05/20 09:00 35 Mechanical Ventilator 85 03/05/20 09:00 85 03/05/20 09:00 97.9 120 37 135/75 (95) 97 03/05/20 08:43 92 165/82 03/05/20 08:43 112 165/75 03/05/20 08:30 119 38 142/76 (98) 96 03/05/20 08:00 115 38 165/95 (118) 96 03/05/20 08:00 Mechanical Ventilator 03/05/20 08:00 115 03/05/20 08:00 39 165/82 Mechanical Ventilator 55 03/05/20 08:00 38 Mechanical Ventilator 55 03/05/20 08:00 50 03/05/20 07:45 110 38 100 Mechanical Ventilator 55 111 32 55 03/05/20 07:30 106 35 147/69 (95) 96 03/05/20 07:00 92 29 115/56 (75) 96 03/05/20 07:00 29 115/56 Mechanical Ventilator 55 03/05/20 07:00 29 Mechanical Ventilator 55 03/05/20 06:30 100 26 119/61 (80) 98 03/05/20 06:00 97 21 103/55 (71) 97 03/05/20 06:00 27 103/55 Mechanical Ventilator 60 03/05/20 06:00 27 Mechanical Ventilator 60 03/05/20 05:30 115 20 138/65 (89) 93 03/05/20 05:20 30 Mechanical Ventilator 60 03/05/20 05:19 30 156/84 Mechanical Ventilator 60 03/05/20 05:00 111 29 156/84 (108) 96 03/05/20 05:00 30 156/84 Mechanical Ventilator 60 03/05/20 05:00 20 Mechanical Ventilator 60 03/05/20 04:30 106 29 157/89 (111) 94 03/05/20 04:00 99.5 108 25 157/86 (109) 98 03/05/20 04:00 32 157/89 Mechanical Ventilator 50 03/05/20 04:00 30 Mechanical Ventilator 50 03/05/20 04:00 Mechanical Ventilator 03/05/20 04:00 108 03/05/20 04:00 50 03/05/20 03:42 109 24 100 Mechanical Ventilator 60 113 24 60 03/05/20 03:30 108 25 162/75 (104) 97 03/05/20 03:00 110 30 130/96 (107) 100 03/05/20 03:00 30 130/96 Mechanical Ventilator 60 03/05/20 03:00 30 Mechanical Ventilator 60 03/05/20 02:30 113 37 165/90 (115) 94 03/05/20 02:00 22 145/104 Mechanical Ventilator 60 03/05/20 02:00 22 Mechanical Ventilator 60 03/05/20 02:00 112 22 145/104 (118) 99 HEENT: Orally intubated, Mechanically Ventilated, Thin secretions ET Tube RHYTHM: NSR LUNGS: bilat. rhonchi and rales CARDIAC: systolic murmur - 1/6 at base ABDOMEN: normal bowel sounds, non tender, soft EXTREMITIES: normal range of motion, non-pitting Laboratory Tests Test 03/05/20 04:00 03/05/20 09:02 White Blood Count 28.4 K/UL (4.8-10.8) *H Red Blood Count 3.47 M/UL (4.20-5.40) L Hemoglobin 9.8 G/DL (12.0-16.0) L Hematocrit 28.9 % (37.0-47.0) L Mean Corpuscular Volume 83 FL (80-99) Mean Corpuscular Hemoglobin 28.2 PG (27.0-31.0) Mean Corpuscular Hemoglobin Concent 33.7 G/DL (32.0-36.0) Red Cell Distribution Width 19.3 % (11.6-14.8) H Platelet Count 280 K/UL (150-450) Mean Platelet Volume 9.0 FL (6.5-10.1) Neutrophils (%) (Auto) % (45.0-75.0) Lymphocytes (%) (Auto) % (20.0-45.0) Monocytes (%) (Auto) % (1.0-10.0) Eosinophils (%) (Auto) % (0.0-3.0) Basophils (%) (Auto) % (0.0-2.0) Differential Total Cells Counted 100 Neutrophils % (Manual) 88 % (45-75) H Lymphocytes % (Manual) % (20-45) Monocytes % (Manual) 1 % (1-10) Eosinophils % (Manual) 0 % (0-3) Basophils % (Manual) 0 % (0-2) Band Neutrophils 11 % (0-8) H Platelet Estimate Adequate Platelet Morphology Normal Hypochromasia 1+ Anisocytosis 1+ Sodium Level 148 MMOL/L (136-145) H Potassium Level 3.7 MMOL/L (3.5-5.1) Chloride Level 109 MMOL/L (98-107) H Carbon Dioxide Level 29 MMOL/L (21-32) Blood Urea Nitrogen 58 mg/dL (7-18) H Creatinine 1.5 MG/DL (0.55-1.30) H Estimat Glomerular Filtration Rate 42.9 mL/min (>60) Glucose Level 193 MG/DL (74-106) H Calcium Level 9.3 MG/DL (8.5-10.1) Arterial Blood pH 7.491 (7.350-7.450) Arterial Blood Partial Pressure CO2 37.0 mmHg (35.0-45.0) Arterial Blood Partial Pressure O2 47.7 mmHg (75.0-100.0) Arterial Blood HCO3 27.6 mmol/L (22.0-26.0) H Arterial Blood Oxygen Saturation 85.4 % (95-100) *L Arterial Blood Base Excess 4.1 (-2-2) H Bryan Test Positive Microbiology Date/Time Source Procedure Growth Status 03/04/20 05:00 Sputum Gram Stain - Final Resulted 03/04/20 05:00 Sputum Sputum Culture Pending Resulted 03/03/20 16:30 Blood Blood Culture - Preliminary Staphylococcus Aureus Resulted Assessment/Plan Assessment/Plan Respiratory failure Covid19 PNA Bacteremia due to lung mass and recurrent pulmonary infections. + risk for endocarditis, but increased risk for PORFIRIO. Acute [place] Ac/chronic diastolic CHF Lung mass - prior benign biopsy Pneumonia with cavitation Mild-mod degenerative aortic stenosis Acute renal failure Pulmonary hypertension (est PAsyst 58mmHg) Hypertension with labile BP range. Anemia Dehydration/hypernatremia corrected IRDM with elevated glucose. Sinus bradycardia on beta rusty rx. Dehydration/hypernatremia Meds updated - BP rx advanced further. ICU logs and care plan reviewed Evans Trinidad MD Mar 06, 2020 01:30
--- NOTE | 2020-03-06 02:00 | NUR ---
NURSE NOTES: Patient repositioned and given oral care provided, NSR at this time, and sometimes Sinus tach in the low 100s. Rectal tube in place. Patient making good urine output.
[2020-03-06] MEDS: Morphine Sulfate 2mg/ml Inj(IV/IM USE ONLY) IVP PRN (02:25)
[2020-03-06] MEDS: HydrALAZINE 25mg tab ORAL PRN (02:25)
[2020-03-06] MEDS: Ipratropium Bromide Inhaler INH SCH ×7 (03:24→22:49)
--- NOTE | 2020-03-06 03:45 | NUR ---
NURSE NOTES: Patient is restless and overbreathing the ventilator. RR in the 50s and patient desaturating in the 70s. Deviated from protocol and increased patient to 300mcg, informed MD about rate change. Patient was not being stimulated during events. Current RASS is +1.
--- NOTE | 2020-03-06 04:00 | NUR ---
NURSE NOTES: Patient RASS score is now at -2. Patient was given sponge bath and oral care, NAD at this time, AM labs drawn and sent with door furring installer. RR in the 30. SpO2 is 100%
[2020-03-06] MEDS: fentaNYL 2500mcg/NS 250ml 250 ML IV SCH ×2 (05:42→15:02)
--- NOTE | 2020-03-06 06:00 | NUR ---
NURSE NOTES: Repositioned patient, patient remains sedated with RASS -2. Oral care provided. Patients NSR at this time, pulses present, Will continue to monitor.
[2020-03-06 06:02] LABS: HEMATOCRIT 30.3 % (37.0-47.0); HEMOGLOBIN 9.8 G/DL (12.0-16.0); MEAN CORPUSCULAR VOLUME 86 FL (80-99); PLATELET COUNT 285 K/UL (150-450); RED BLOOD COUNT 3.54 M/UL (4.20-5.40); RED CELL DISTRIBUTION WIDTH 19.1 % (11.6-14.8); WHITE BLOOD COUNT 20.7 K/UL (4.8-10.8)
[2020-03-06 06:41] LABS: ALBUMIN 1.3 G/DL (3.4-5.0); ALBUMIN/GLOBULIN RATIO 0.2 (1.0-2.7); BILIRUBIN,TOTAL 3.4 MG/DL (0.2-1.0); CALCIUM 9.2 MG/DL (8.5-10.1); CREATININE 1.5 MG/DL (0.55-1.30); POTASSIUM 3.2 MMOL/L (3.5-5.1)
[2020-03-06 07:04] LABS: BILIRUBIN,DIRECT 2.9 MG/DL (0.0-0.3)
--- NOTE | 2020-03-06 07:30 | General Progress Note ---
Subjective ROS Limited/Unobtainable: No Allergies: Coded Allergies: No Known Allergies (Unverified , 07/30/15) Objective Last 24 Hour Vital Signs Date Time Temp Pulse Resp B/P (MAP) Pulse Ox O2 Delivery O2 Flow Rate FiO2 03/06/20 07:00 111 26 129/74 (92) 100 03/06/20 07:00 22 129/74 Mechanical Ventilator 70 03/06/20 07:00 22 Mechanical Ventilator 70 03/06/20 06:30 112 26 134/79 (97) 100 03/06/20 06:24 32 Mechanical Ventilator 70 03/06/20 06:00 32 156/85 Mechanical Ventilator 70 03/06/20 06:00 32 Mechanical Ventilator 70 03/06/20 06:00 101 34 158/85 (109) 100 03/06/20 05:42 32 174/104 Mechanical Ventilator 70 03/06/20 05:30 105 34 174/104 (127) 100 03/06/20 05:00 32 152/90 Mechanical Ventilator 75 03/06/20 05:00 32 Mechanical Ventilator 75 03/06/20 05:00 112 32 152/90 (110) 70 03/06/20 04:30 113 50 147/76 (99) 100 03/06/20 04:00 101.0 117 45 142/85 (104) 95 03/06/20 04:00 115 03/06/20 04:00 32 156/89 Mechanical Ventilator 75 03/06/20 04:00 32 Mechanical Ventilator 75 03/06/20 04:00 75 03/06/20 04:00 Mechanical Ventilator 03/06/20 03:45 51 191/103 Mechanical Ventilator 75 03/06/20 03:45 51 Mechanical Ventilator 75 03/06/20 03:30 115 37 100 Mechanical Ventilator 70 118 39 80 03/06/20 03:30 116 51 205/84 (124) 85 03/06/20 03:00 39 156/87 Mechanical Ventilator 75 03/06/20 03:00 39 Mechanical Ventilator 75 03/06/20 03:00 117 36 156/87 (110) 97 03/06/20 02:30 116 42 174/102 (126) 96 03/06/20 02:25 197/89 03/06/20 02:25 197/89 03/06/20 02:00 41 174/102 Mechanical Ventilator 75 03/06/20 02:00 36 Mechanical Ventilator 75 03/06/20 02:00 109 44 197/89 (125) 100 03/06/20 01:30 98 35 168/90 (116) 90 03/06/20 01:00 36 178/90 Mechanical Ventilator 75 03/06/20 01:00 34 Mechanical Ventilator 75 03/06/20 01:00 97 28 164/81 (108) 100 03/06/20 00:30 101 38 196/98 (130) 98 03/06/20 00:18 22 Mechanical Ventilator 80 03/06/20 00:00 98.9 94 36 160/88 (112) 100 03/06/20 00:00 75 03/06/20 00:00 34 178/90 Mechanical Ventilator 80 03/06/20 00:00 26 Mechanical Ventilator 80 03/06/20 00:00 Mechanical Ventilator 03/06/20 00:00 101 03/05/20 23:30 101 29 157/91 (113) 99 03/05/20 23:00 26 167/70 Mechanical Ventilator 80 03/05/20 23:00 31 Mechanical Ventilator 80 03/05/20 23:00 86 22 161/91 (114) 100 03/05/20 22:57 87 29 100 Mechanical Ventilator 80 91 29 80 03/05/20 22:30 88 22 161/70 (100) 100 03/05/20 22:00 26 161/70 Mechanical Ventilator 85 03/05/20 22:00 26 Mechanical Ventilator 80 03/05/20 22:00 106 22 149/97 (114) 100 03/05/20 21:45 104 150/80 03/05/20 21:30 101 22 148/113 (125) 100 03/05/20 21:00 26 148/113 Mechanical Ventilator 85 03/05/20 21:00 26 Mechanical Ventilator 85 03/05/20 21:00 101 22 155/73 (100) 100 03/05/20 20:30 102 22 153/78 (103) 100 03/05/20 20:00 97.9 103 22 153/92 (112) 100 03/05/20 20:00 106 03/05/20 20:00 80 03/05/20 20:00 22 153/78 Mechanical Ventilator 85 03/05/20 20:00 26 Mechanical Ventilator 85 03/05/20 20:00 Mechanical Ventilator 03/05/20 19:35 104 24 100 Mechanical Ventilator 85 105 25 85 03/05/20 19:30 105 22 166/91 (116) 100 03/05/20 19:00 104 24 159/87 (111) 100 03/05/20 19:00 22 150/80 Mechanical Ventilator 85 03/05/20 19:00 20 Mechanical Ventilator 85 03/05/20 18:00 90 24 166/82 (110) 100 03/05/20 18:00 22 139/77 Mechanical Ventilator 85 03/05/20 18:00 22 Mechanical Ventilator 85 03/05/20 17:55 30 143/82 Mechanical Ventilator 10.0 85 03/05/20 17:54 28 143/82 Mechanical Ventilator 85 03/05/20 17:00 107 30 143/82 (102) 100 03/05/20 17:00 28 143/82 Mechanical Ventilator 85 03/05/20 17:00 22 Mechanical Ventilator 85 03/05/20 16:24 99.0 03/05/20 16:00 85 03/05/20 16:00 118 03/05/20 16:00 Mechanical Ventilator 03/05/20 16:00 30 160/90 Mechanical Ventilator 85 03/05/20 16:00 22 Mechanical Ventilator 85 03/05/20 16:00 114 29 164/96 (118) 100 03/05/20 16:00 Mechanical Ventilator 03/05/20 15:20 109 34 100 Mechanical Ventilator 85 104 28 85 03/05/20 15:00 108 33 155/91 (112) 100 03/05/20 15:00 22 155/91 Mechanical Ventilator 85 03/05/20 15:00 22 Mechanical Ventilator 85 03/05/20 14:30 100 37 124/101 (109) 100 03/05/20 14:00 95 24 150/76 (100) 100 03/05/20 14:00 22 130/60 Mechanical Ventilator 85 03/05/20 14:00 20 Mechanical Ventilator 85 03/05/20 13:30 92 25 153/75 (101) 100 03/05/20 13:00 97.3 89 22 161/78 (105) 100 03/05/20 13:00 20 130/65 Mechanical Ventilator 85 03/05/20 13:00 20 Mechanical Ventilator 85 03/05/20 12:30 85 19 150/79 (102) 100 03/05/20 12:00 97 22 140/77 (98) 100 12/8/20 12:00 20 130/60 Mechanical Ventilator 85 03/05/20 12:00 20 Mechanical Ventilator 85 03/05/20 12:00 Mechanical Ventilator 03/05/20 12:00 90 03/05/20 11:30 98 22 144/79 (100) 100 03/05/20 11:06 97 34 100 Mechanical Ventilator 85 98 28 85 03/05/20 11:00 98 22 136/69 (91) 100 03/05/20 11:00 20 137/67 Mechanical Ventilator 85 03/05/20 11:00 20 Mechanical Ventilator 85 03/05/20 10:30 98 19 137/67 (90) 100 03/05/20 10:00 105 19 131/67 (88) 100 03/05/20 10:00 20 131/67 Mechanical Ventilator 85 03/05/20 10:00 20 Mechanical Ventilator 85 03/05/20 09:30 110 13 127/61 (83) 100 03/05/20 09:00 37 142/76 Mechanical Ventilator 85 03/05/20 09:00 35 Mechanical Ventilator 85 03/05/20 09:00 85 03/05/20 09:00 97.9 120 37 135/75 (95) 97 03/05/20 08:43 92 165/82 03/05/20 08:43 112 165/75 03/05/20 08:30 119 38 142/76 (98) 96 03/05/20 08:00 115 38 165/95 (118) 96 03/05/20 08:00 Mechanical Ventilator 03/05/20 08:00 115 03/05/20 08:00 39 165/82 Mechanical Ventilator 55 03/05/20 08:00 38 Mechanical Ventilator 55 03/05/20 08:00 50 03/05/20 07:45 110 38 100 Mechanical Ventilator 55 111 32 55 03/05/20 07:30 106 35 147/69 (95) 96 Intake and Output 03/05/20 03/06/20 19:00 07:00 Intake Total 1842.934 ml 1661.1 ml Output Total 1170 ml 1620 ml Balance 672.934 ml 41.1 ml Free Water 300 ml 300 ml IV Total 642.934 ml 461.1 ml Tube Feeding 900 ml 900 ml Output Urine Total 970 ml 1620 ml Stool Total 200 ml Laboratory Tests 03/05/20 09:02: Arterial Blood pH 7.491H, Arterial Blood Partial Pressure CO2 37.0, Arterial Blood Partial Pressure O2 47.7*L, Arterial Blood HCO3 27.6H, Arterial Blood Oxygen Saturation 85.4*L, Arterial Blood Base Excess 4.1H, Bryan Test Positive 03/06/20 04:30: White Blood Count 20.7H, Red Blood Count 3.54L, Hemoglobin 9.8L, Hematocrit 30.3L, Mean Corpuscular Volume 86, Mean Corpuscular Hemoglobin 27.7, Mean Corpuscular Hemoglobin Concent 32.3, Red Cell Distribution Width 19.1H, Platelet Count 285, Mean Platelet Volume 7.9, Neutrophils (%) (Auto) , Lymphocytes (%) (Auto) , Monocytes (%) (Auto) , Eosinophils (%) (Auto) , Basophils (%) (Auto) , Neutrophils % (Manual) [Pending], Lymphocytes % (Manual) [Pending], Platelet Estimate [Pending], Platelet Morphology [Pending], Sodium Level 146H, Potassium Level 3.2L, Chloride Level 107, Carbon Dioxide Level 28, Anion Gap 11, Blood Urea Nitrogen 62H, Creatinine 1.5H, Estimat Glomerular Filtration Rate 42.9, Glucose Level 254H, Calcium Level 9.2, Total Bilirubin 3.4H, Direct Bilirubin 2.9H, Aspartate Amino Transf (AST/SGOT) 105H, Alanine Aminotransferase (ALT/SGPT) 85H, Alkaline Phosphatase 1565H, Total Protein 7.0, Albumin 1.3L, Globulin 5.7, Albumin/Globulin Ratio 0.2L Height (Feet): 5 Height (Inches): 1.00 Weight (Pounds): 168 General Appearance: no apparent distress EENT: normal ENT inspection Neck: supple Cardiovascular: normal rate Respiratory/Chest: decreased breath sounds Abdomen: normal bowel sounds, non tender, soft Extremities: non-tender Assessment/Plan Assessment/Plan: Assessment - GIB - resolved - Anemia - TF residuals, 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
--- NOTE | 2020-03-06 08:45 | NUR ---
NURSE NOTES: Dr. Feliz at the bedside assessing patient, updated on the patient abg and titrated the FIO2 to 60%. wants to maintain the fio2 at 60% since saturating sao2 remains at 94-97%. no further orders given at this time.
[2020-03-06] MEDS: Heparin 5000 units/ml inj SUBQ SCH ×2 (09:28→19:54)
[2020-03-06] MEDS: Aspirin Baby 81mg NG SCH (09:29)
[2020-03-06] MEDS: Isoniazid 300mg tab ORAL SCH (09:29)
[2020-03-06] MEDS: Pyridoxine 50mg tab ORAL SCH (09:30)
[2020-03-06] MEDS: Pantoprazole Inj IVP SCH ×2 (09:30→19:54)
[2020-03-06] MEDS: Multivitamins W/Minerals 15 ML UDC NG SCH (09:30)
[2020-03-06] MEDS: Metoprolol Tartrate 100mg tab NG SCH ×2 (09:30→19:53)
[2020-03-06] MEDS: Levemir Flexpen SUBQ SCH ×2 (10:07→20:32)
--- NOTE | 2020-03-06 11:35 | NUR ---
NURSE NOTES: Dr. Perez updated on patient condition and informed her WBC count this morning. she remains afebrile with cooling blanket in monitor mode.
--- NOTE | 2020-03-06 11:54 | Infectious Diseases Prog Note ---
"Assessment/Plan Assessment/Plan antibiotics : vancomycin iv, cefepime isoniazid, rifampin, PZA, ethambutol, pyridoxine 12.7.20 - A 1. MRSA | gram negative pneumonia 2. MRSA sepsis r/o endocarditis 3. diabetes mellitus 4. hypertension 5. COPD 6. respiratory failure 7. aortic stenosis 8. COVID 19 pneumonia on 60 percent FiO2,saturation 94 % s/p ivermectin 11.27.20 s/p remdesivir 9, leucocytosis likely secondary to steroids improving 10. r/o TB + AFB in sputum from 11.2.20 P 1. continue iv vancomycin 2. continue cefepime 3. continue decadron 4. continue isoniazid, rifampin, PZA, ethambutol, pyridoxine 5. will follow up cultures 6. continue isolation Subjective ROS Limited/Unobtainable: Yes Allergies: Coded Allergies: No Known Allergies (Unverified , 07/30/15) Objective Last 24 Hour Vital Signs Date Time Temp Pulse Resp B/P (MAP) Pulse Ox O2 Delivery O2 Flow Rate FiO2 03/06/20 11:13 111 37 60 03/06/20 10:30 110 37 153/94 (113) 03/06/20 10:00 116 37 154/85 (108) 94 03/06/20 09:30 108 150/88 03/06/20 09:30 108 33 161/106 (124) 93 03/06/20 09:29 108 150/88 03/06/20 09:00 109 23 150/88 (108) 98 03/06/20 08:30 112 31 141/79 (99) 97 03/06/20 08:00 109 03/06/20 08:00 98.3 109 18 134/85 (101) 98 03/06/20 08:00 60 03/06/20 07:30 109 25 142/73 (96) 100 03/06/20 07:29 108 30 100 Mechanical Ventilator 60 106 30 60 03/06/20 07:00 111 26 129/74 (92) 100 03/06/20 07:00 22 129/74 Mechanical Ventilator 70 03/06/20 07:00 22 Mechanical Ventilator 70 03/06/20 06:30 112 26 134/79 (97) 100 03/06/20 06:24 32 Mechanical Ventilator 70 03/06/20 06:00 32 156/85 Mechanical Ventilator 70 03/06/20 06:00 32 Mechanical Ventilator 70 03/06/20 06:00 101 34 158/85 (109) 100 03/06/20 05:42 32 174/104 Mechanical Ventilator 70 03/06/20 05:30 105 34 174/104 (127) 100 03/06/20 05:00 32 152/90 Mechanical Ventilator 75 03/06/20 05:00 32 Mechanical Ventilator 75 03/06/20 05:00 112 32 152/90 (110) 70 03/06/20 04:30 113 50 147/76 (99) 100 03/06/20 04:00 101.0 117 45 142/85 (104) 95 03/06/20 04:00 115 03/06/20 04:00 32 156/89 Mechanical Ventilator 75 03/06/20 04:00 32 Mechanical Ventilator 75 03/06/20 04:00 75 03/06/20 04:00 Mechanical Ventilator 03/06/20 03:45 51 191/103 Mechanical Ventilator 75 03/06/20 03:45 51 Mechanical Ventilator 75 03/06/20 03:30 115 37 100 Mechanical Ventilator 70 118 39 80 03/06/20 03:30 116 51 205/84 (124) 85 03/06/20 03:00 39 156/87 Mechanical Ventilator 75 03/06/20 03:00 39 Mechanical Ventilator 75 03/06/20 03:00 117 36 156/87 (110) 97 03/06/20 02:30 116 42 174/102 (126) 96 03/06/20 02:25 197/89 03/06/20 02:25 197/89 03/06/20 02:00 41 174/102 Mechanical Ventilator 75 03/06/20 02:00 36 Mechanical Ventilator 75 03/06/20 02:00 109 44 197/89 (125) 100 03/06/20 01:30 98 35 168/90 (116) 90 03/06/20 01:00 36 178/90 Mechanical Ventilator 75 03/06/20 01:00 34 Mechanical Ventilator 75 03/06/20 01:00 97 28 164/81 (108) 100 03/06/20 00:30 101 38 196/98 (130) 98 03/06/20 00:18 22 Mechanical Ventilator 80 03/06/20 00:00 98.9 94 36 160/88 (112) 100 03/06/20 00:00 75 03/06/20 00:00 34 178/90 Mechanical Ventilator 80 03/06/20 00:00 26 Mechanical Ventilator 80 03/06/20 00:00 Mechanical Ventilator 03/06/20 00:00 101 03/05/20 23:30 101 29 157/91 (113) 99 03/05/20 23:00 26 167/70 Mechanical Ventilator 80 03/05/20 23:00 31 Mechanical Ventilator 80 03/05/20 23:00 86 22 161/91 (114) 100 03/05/20 22:57 87 29 100 Mechanical Ventilator 80 91 29 80 03/05/20 22:30 88 22 161/70 (100) 100 03/05/20 22:00 26 161/70 Mechanical Ventilator 85 03/05/20 22:00 26 Mechanical Ventilator 80 03/05/20 22:00 106 22 149/97 (114) 100 03/05/20 21:45 104 150/80 03/05/20 21:30 101 22 148/113 (125) 100 03/05/20 21:00 26 148/113 Mechanical Ventilator 85 03/05/20 21:00 26 Mechanical Ventilator 85 03/05/20 21:00 101 22 155/73 (100) 100 03/05/20 20:30 102 22 153/78 (103) 100 03/05/20 20:00 97.9 103 22 153/92 (112) 100 03/05/20 20:00 106 03/05/20 20:00 80 03/05/20 20:00 22 153/78 Mechanical Ventilator 85 03/05/20 20:00 26 Mechanical Ventilator 85 03/05/20 20:00 Mechanical Ventilator 03/05/20 19:35 104 24 100 Mechanical Ventilator 85 105 25 85 03/05/20 19:30 105 22 166/91 (116) 100 03/05/20 19:00 104 24 159/87 (111) 100 03/05/20 19:00 22 150/80 Mechanical Ventilator 85 03/05/20 19:00 20 Mechanical Ventilator 85 03/05/20 18:00 90 24 166/82 (110) 100 03/05/20 18:00 22 139/77 Mechanical Ventilator 85 03/05/20 18:00 22 Mechanical Ventilator 85 03/05/20 17:55 30 143/82 Mechanical Ventilator 10.0 85 03/05/20 17:54 28 143/82 Mechanical Ventilator 85 03/05/20 17:00 107 30 143/82 (102) 100 03/05/20 17:00 28 143/82 Mechanical Ventilator 85 03/05/20 17:00 22 Mechanical Ventilator 85 03/05/20 16:24 99.0 03/05/20 16:00 85 03/05/20 16:00 118 03/05/20 16:00 Mechanical Ventilator 03/05/20 16:00 30 160/90 Mechanical Ventilator 85 03/05/20 16:00 22 Mechanical Ventilator 85 03/05/20 16:00 114 29 164/96 (118) 100 03/05/20 16:00 Mechanical Ventilator 03/05/20 15:20 109 34 100 Mechanical Ventilator 85 104 28 85 03/05/20 15:00 108 33 155/91 (112) 100 03/05/20 15:00 22 155/91 Mechanical Ventilator 85 03/05/20 15:00 22 Mechanical Ventilator 85 03/05/20 14:30 100 37 124/101 (109) 100 03/05/20 14:00 95 24 150/76 (100) 100 03/05/20 14:00 22 130/60 Mechanical Ventilator 85 03/05/20 14:00 20 Mechanical Ventilator 85 03/05/20 13:30 92 25 153/75 (101) 100 03/05/20 13:00 97.3 89 22 161/78 (105) 100 03/05/20 13:00 20 130/65 Mechanical Ventilator 85 03/05/20 13:00 20 Mechanical Ventilator 85 03/05/20 12:30 85 19 150/79 (102) 100 03/05/20 12:00 97 22 140/77 (98) 100 03/05/20 12:00 20 130/60 Mechanical Ventilator 85 03/05/20 12:00 20 Mechanical Ventilator 85 03/05/20 12:00 Mechanical Ventilator 03/05/20 12:00 90 Height (Feet): 5 Height (Inches): 1.00 Weight (Pounds): 168 Microbiology Date/Time Source Procedure Growth Status 03/04/20 05:00 Sputum Gram Stain - Final Resulted 03/04/20 05:00 Sputum Culture - Preliminary Gram Negative Bacillus 1 Gram Negative Bacillus 2 Staphylococcus Aureus Resulted 03/03/20 16:30 Blood Blood Culture - Final Staphylococcus Aureus - Mrsa Complete Laboratory Tests Test 12/9/20 04:30 03/06/20 08:12 03/06/20 11:05 White Blood Count 20.7 K/UL (4.8-10.8) H Red Blood Count 3.54 M/UL (4.20-5.40) L Hemoglobin 9.8 G/DL (12.0-16.0) L Hematocrit 30.3 % (37.0-47.0) L Mean Corpuscular Volume 86 FL (80-99) Mean Corpuscular Hemoglobin 27.7 PG (27.0-31.0) Mean Corpuscular Hemoglobin Concent 32.3 G/DL (32.0-36.0) Red Cell Distribution Width 19.1 % (11.6-14.8) H Platelet Count 285 K/UL (150-450) Mean Platelet Volume 7.9 FL (6.5-10.1) Neutrophils (%) (Auto) % (45.0-75.0) Lymphocytes (%) (Auto) % (20.0-45.0) Monocytes (%) (Auto) % (1.0-10.0) Eosinophils (%) (Auto) % (0.0-3.0) Basophils (%) (Auto) % (0.0-2.0) Differential Total Cells Counted 100 Neutrophils % (Manual) 88 % (45-75) H Lymphocytes % (Manual) 2 % (20-45) L Monocytes % (Manual) 3 % (1-10) Eosinophils % (Manual) 0 % (0-3) Basophils % (Manual) 0 % (0-2) Band Neutrophils 7 % (0-8) Nucleated Red Blood Cells 1 /100 WBC Platelet Estimate Adequate Platelet Morphology Normal Hypochromasia 1+ Anisocytosis 2+ Sodium Level 146 MMOL/L (136-145) H Potassium Level 3.2 MMOL/L (3.5-5.1) L Chloride Level 107 MMOL/L (98-107) Carbon Dioxide Level 28 MMOL/L (21-32) Anion Gap 11 mmol/L (5-15) Blood Urea Nitrogen 62 mg/dL (7-18) H Creatinine 1.5 MG/DL (0.55-1.30) H Estimat Glomerular Filtration Rate 42.9 mL/min (>60) Glucose Level 254 MG/DL (74-106) H Calcium Level 9.2 MG/DL (8.5-10.1) Total Bilirubin 3.4 MG/DL (0.2-1.0) H Direct Bilirubin 2.9 MG/DL (0.0-0.3) H Aspartate Amino Transf (AST/SGOT) 105 U/L (15-37) H Alanine Aminotransferase (ALT/SGPT) 85 U/L (12-78) H Alkaline Phosphatase 1565 U/L (46-116) H Total Protein 7.0 G/DL (6.4-8.2) Albumin 1.3 G/DL (3.4-5.0) L Globulin 5.7 g/dL Albumin/Globulin Ratio 0.2 (1.0-2.7) L Arterial Blood pH 7.400 (7.350-7.450) Arterial Blood Partial Pressure CO2 51.2 mmHg (35.0-45.0) H Arterial Blood Partial Pressure O2 54.5 mmHg (75.0-100.0) L Arterial Blood HCO3 32.0 mmol/L (22.0-26.0) H Arterial Blood Oxygen Saturation 86.6 % (95-100) *L Arterial Blood Base Excess 5.3 (-2-2) H Bryan Test Positive Vancomycin Level Trough Pending Current Medications Medications (Trade) Dose Ordered Sig/Ivana Route PRN Reason Start Time Stop Time Status Last Admin Dose Admin Acetaminophen (Tylenol) 650 mg EVERY 6 HOURS PRN NG Mild Pain (Pain Scale 1-3) 02/27/20 07:45 03/28/20 07:44 03/05/20 15:54 Amlodipine Besylate (Norvasc) 5 mg BID@0900,2100 NG 03/06/20 09:00 04/05/20 08:59 03/06/20 09:29 Aspirin (ASA) 81 mg DAILY NG 02/27/20 09:00 03/30/20 08:59 03/06/20 09:29 Cefepime HCl 1 gm/ Dextrose 55 ml @ 110 mls/hr Q24H IVPB 03/04/20 01:00 03/11/20 00:59 03/06/20 00:17 Chlorhexidine Gluconate (Divina-Hex 2%) 1 applic DAILY@1999 TOPIC 02/26/20 20:00 05/26/20 19:59 03/05/20 21:45 Clonidine HCl (Catapres Tab) 0.1 mg Q4H PRN ORAL SBP > 150mmHg 02/06/20 07:00 05/06/20 06:59 03/06/20 02:25 Dexamethasone Sodium Phosphate (Decadron 4mg/ml vial) 6 mg Q24H IVP 03/02/20 12:00 03/11/20 12:01 03/05/20 12:59 Dextrose (Dextrose 50%) 25 ml Q30M PRN IV Hypoglycemia 01/28/20 22:45 04/27/20 22:44 Dextrose (Dextrose 50%) 50 ml Q30M PRN IV Hypoglycemia 01/28/20 22:45 04/27/20 22:44 Epoetin Haseeb (Epoetin Haseeb-EPBX(NON ESRD)) 6,000 unit SUBQ 03/04/20 21:00 06/02/20 20:59 03/04/20 20:52 Ethambutol HCl (Myambutol) 800 mg DAILY ORAL 03/04/20 13:00 04/03/20 12:59 03/06/20 09:30 Fentanyl Citrate 250 ml @ 1 mls/hr Q24H IV 02/29/20 15:00 03/06/20 14:59 03/06/20 05:42 Furosemide (Lasix) 20 mg EVERY 12 HOURS IV 03/01/20 21:00 03/31/20 20:59 03/06/20 09:27 Guaifenesin/ Dextromethorphan (Robitussin DM Syrup) 15 ml Q4H PRN ORAL For Cough 02/12/20 16:53 05/12/20 16:52 02/19/20 22:21 Heparin Sodium (Porcine) (Heparin 5000 units/ml) 5,000 units EVERY 12 HOURS SUBQ 02/28/20 21:00 04/13/20 20:59 03/06/20 09:28 Hydralazine HCl (Apresoline) 25 mg Q6H PRN ORAL SBP above 150 02/27/20 23:15 05/27/20 23:14 03/06/20 02:25 Insulin Aspart (NovoLOG) Q6HR SUBQ 01/29/20 00:00 04/28/20 00:00 03/06/20 05:43 Insulin Detemir (Levemir) 15 units EVERY 12 HOURS SUBQ 03/04/20 09:00 05/30/20 08:59 03/06/20 10:07 Ipratropium [place] (Atrovent Inh) 1 puffs Q4HRT INH 02/28/20 15:00 03/19/20 17:59 03/06/20 08:50 Isoniazid (Inh) 300 mg DAILY ORAL 03/04/20 13:00 04/03/20 12:59 03/06/20 09:29 Lidocaine (Lidoderm 5% PATCH) 1 patch DAILY TDERMAL 02/11/20 09:30 05/11/20 09:29 03/06/20 09:30 Methocarbamol (Robaxin) 500 mg Q8H PRN ORAL muscle spasm 02/11/20 09:30 03/12/20 09:29 03/05/20 01:07 Metoclopramide HCl (Reglan) 5 mg EVERY 6 HOURS NG 03/04/20 21:00 04/03/20 20:59 03/06/20 05:42 Metoprolol Tartrate (Lopressor) 100 mg Q12HR NG 03/03/20 10:00 05/04/20 09:59 03/06/20 09:30 Midazolam HCl 50 mg/Sodium Chloride 100 ml @ 0 mls/hr Q24H PRN IV SEDATION 02/29/20 07:30 03/06/20 14:59 03/06/20 06:24 Morphine Sulfate (Morphine Sulfate) 2 mg Q2H PRN IVP For Pain 4-10 02/24/20 15:00 03/06/20 14:59 03/06/20 02:25 Multivitamins (Multivitamins W/ Minerals 15ml Liquid) 15 ml DAILY NG 02/27/20 09:00 03/28/20 08:59 03/06/20 09:30 Pantoprazole (Protonix) 40 mg EVERY 12 HOURS IVP 02/25/20 10:00 03/24/20 08:59 03/06/20 09:30 Potassium Chloride (K-Dur) 60 meq ONCE ORAL 03/06/20 11:15 03/06/20 13:30 Pyrazinamide (Pza) 1,500 mg DAILY ORAL 03/04/20 13:00 04/03/20 12:59 03/06/20 09:29 Pyridoxine HCl (Vitamin B6) 50 mg DAILY ORAL 03/04/20 13:00 04/03/20 12:59 03/06/20 09:30 Rifampin (Rifadin) 600 mg DAILY ORAL 03/04/20 13:00 04/03/20 12:59 03/06/20 09:28 Sorbitol (sorbitoL) 30 ml Q8H PRN NG Constipation 02/28/20 16:15 03/29/20 16:14 02/28/20 17:08 Vancomycin HCl 250 ml @ 166.667 mls/hr Q24H IVPB 03/03/20 12:00 03/08/20 11:59 03/05/20 12:59 Vancomycin HCl (Vanco pharmacy to dose) 1 ea DAILY PRN MISC Per rx protocol 02/13/20 11:30 03/14/20 11:29 Messi Lopez MD Mar 06, 2020 11:54"
--- NOTE | 2020-03-06 12:30 | NUR ---
NURSE NOTES: obtained order from dr. pearl to administer 60meq of potassium chloride G-tube once for potassium level of 3.2,
--- NOTE | 2020-03-06 12:50 | Critical Care Progress Note ---
Assessment/Plan Assessment/Plan IMPRESSION acute respiratory failure/ now on vent leukocytosis, possibly exacerbated by steroids sepsis ARF toxic met encephalopathy COPD DM poor control cavitary lesion negative AFB groundglass infiltrates NSTEMI severe PCM hypertension left shoulder pain bacteremia MRSA hematuria COVID anemia diabetes s/p respiratory code hypernatremia edema PLAN lasix with caution monitor sodium levels DVT prophylaxis monitor HH antibiotics per ID beta rusty as needed vent support- taper oxygen as able; taper PEEP monitor acid base NGT and feeds monitor lytes maintain support- via vent and change to volume ventilation monitor LOC critical at present maintain sedation adjust insulin and monitor sugars as needed medications/laboratory data/nursing notes/ICU care reviewed in detail note reviewed and edited care discussed with RN and RT ICU time spent >40 minutes Critical Care - Subjective ROS Limited/Unobtainable: Yes Condition: critical EKG Rhythm: Sinus Tachycardia Residuals: minimal Tube Feeding Tolerated: yes I&O: Intake and Output 03/05/20 03/06/20 19:00 07:00 Intake Total 1842.934 ml 1661.1 ml Output Total 1170 ml 1620 ml Balance 672.934 ml 41.1 ml Free Water 300 ml 300 ml IV Total 642.934 ml 461.1 ml Tube Feeding 900 ml 900 ml Output Urine Total 970 ml 1620 ml Stool Total 200 ml Critical Care - Objective ET-Tube: 7.5 ET Position: 25 Last 24 Hour Vital Signs Date Time Temp Pulse Resp B/P (MAP) Pulse Ox O2 Delivery O2 Flow Rate FiO2 03/06/20 12:10 30 Mechanical Ventilator 60 03/06/20 11:13 111 37 60 03/06/20 10:30 110 37 153/94 (113) 03/06/20 10:00 116 37 154/85 (108) 94 03/06/20 09:30 108 150/88 03/06/20 09:30 108 33 161/106 (124) 93 03/06/20 09:29 108 150/88 03/06/20 09:00 109 23 150/88 (108) 98 03/06/20 08:30 112 31 141/79 (99) 97 03/06/20 08:00 109 03/06/20 08:00 98.3 109 18 134/85 (101) 98 03/06/20 08:00 60 03/06/20 07:30 109 25 142/73 (96) 100 03/06/20 07:29 108 30 100 Mechanical Ventilator 60 106 30 60 03/06/20 07:00 111 26 129/74 (92) 100 03/06/20 07:00 22 129/74 Mechanical Ventilator 70 03/06/20 07:00 22 Mechanical Ventilator 70 03/06/20 06:30 112 26 134/79 (97) 100 03/06/20 06:24 32 Mechanical Ventilator 70 03/06/20 06:00 32 156/85 Mechanical Ventilator 70 03/06/20 06:00 32 Mechanical Ventilator 70 03/06/20 06:00 101 34 158/85 (109) 100 03/06/20 05:42 32 174/104 Mechanical Ventilator 70 03/06/20 05:30 105 34 174/104 (127) 100 03/06/20 05:00 32 152/90 Mechanical Ventilator 75 03/06/20 05:00 32 Mechanical Ventilator 75 03/06/20 05:00 112 32 152/90 (110) 70 03/06/20 04:30 113 50 147/76 (99) 100 03/06/20 04:00 101.0 117 45 142/85 (104) 95 03/06/20 04:00 115 03/06/20 04:00 32 156/89 Mechanical Ventilator 75 03/06/20 04:00 32 Mechanical Ventilator 75 03/06/20 04:00 75 03/06/20 04:00 Mechanical Ventilator 03/06/20 03:45 51 191/103 Mechanical Ventilator 75 03/06/20 03:45 51 Mechanical Ventilator 75 03/06/20 03:30 115 37 100 Mechanical Ventilator 70 118 39 80 03/06/20 03:30 116 51 205/84 (124) 85 03/06/20 03:00 39 156/87 Mechanical Ventilator 75 03/06/20 03:00 39 Mechanical Ventilator 75 03/06/20 03:00 117 36 156/87 (110) 97 03/06/20 02:30 116 42 174/102 (126) 96 03/06/20 02:25 197/89 03/06/20 02:25 197/89 03/06/20 02:00 41 174/102 Mechanical Ventilator 75 03/06/20 02:00 36 Mechanical Ventilator 75 03/06/20 02:00 109 44 197/89 (125) 100 03/06/20 01:30 98 35 168/90 (116) 90 03/06/20 01:00 36 178/90 Mechanical Ventilator 75 03/06/20 01:00 34 Mechanical Ventilator 75 03/06/20 01:00 97 28 164/81 (108) 100 03/06/20 00:30 101 38 196/98 (130) 98 03/06/20 00:18 22 Mechanical Ventilator 80 03/06/20 00:00 98.9 94 36 160/88 (112) 100 03/06/20 00:00 75 03/06/20 00:00 34 178/90 Mechanical Ventilator 80 03/06/20 00:00 26 Mechanical Ventilator 80 03/06/20 00:00 Mechanical Ventilator 03/06/20 00:00 101 03/05/20 23:30 101 29 157/91 (113) 99 03/05/20 23:00 26 167/70 Mechanical Ventilator 80 03/05/20 23:00 31 Mechanical Ventilator 80 03/05/20 23:00 86 22 161/91 (114) 100 03/05/20 22:57 87 29 100 Mechanical Ventilator 80 91 29 80 03/05/20 22:30 88 22 161/70 (100) 100 03/05/20 22:00 26 161/70 Mechanical Ventilator 85 03/05/20 22:00 26 Mechanical Ventilator 80 03/05/20 22:00 106 22 149/97 (114) 100 03/05/20 21:45 104 150/80 03/05/20 21:30 101 22 148/113 (125) 100 03/05/20 21:00 26 148/113 Mechanical Ventilator 85 03/05/20 21:00 26 Mechanical Ventilator 85 03/05/20 21:00 101 22 155/73 (100) 100 03/05/20 20:30 102 22 153/78 (103) 100 03/05/20 20:00 97.9 103 22 153/92 (112) 100 03/05/20 20:00 106 03/05/20 20:00 80 03/05/20 20:00 22 153/78 Mechanical Ventilator 85 03/05/20 20:00 26 Mechanical Ventilator 85 03/05/20 20:00 Mechanical Ventilator 03/05/20 19:35 104 24 100 Mechanical Ventilator 85 105 25 85 03/05/20 19:30 105 22 166/91 (116) 100 03/05/20 19:00 104 24 159/87 (111) 100 03/05/20 19:00 22 150/80 Mechanical Ventilator 85 03/05/20 19:00 20 Mechanical Ventilator 85 03/05/20 18:00 90 24 166/82 (110) 100 03/05/20 18:00 22 139/77 Mechanical Ventilator 85 03/05/20 18:00 22 Mechanical Ventilator 85 03/05/20 17:55 30 143/82 Mechanical Ventilator 10.0 85 03/05/20 17:54 28 143/82 Mechanical Ventilator 85 03/05/20 17:00 107 30 143/82 (102) 100 03/05/20 17:00 28 143/82 Mechanical Ventilator 85 03/05/20 17:00 22 Mechanical Ventilator 85 03/05/20 16:24 99.0 03/05/20 16:00 85 03/05/20 16:00 118 03/05/20 16:00 Mechanical Ventilator 03/05/20 16:00 30 160/90 Mechanical Ventilator 85 03/05/20 16:00 22 Mechanical Ventilator 85 03/05/20 16:00 114 29 164/96 (118) 100 03/05/20 16:00 Mechanical Ventilator 03/05/20 15:20 109 34 100 Mechanical Ventilator 85 104 28 85 03/05/20 15:00 108 33 155/91 (112) 100 03/05/20 15:00 22 155/91 Mechanical Ventilator 85 03/05/20 15:00 22 Mechanical Ventilator 85 03/05/20 14:30 100 37 124/101 (109) 100 03/05/20 14:00 95 24 150/76 (100) 100 03/05/20 14:00 22 130/60 Mechanical Ventilator 85 03/05/20 14:00 20 Mechanical Ventilator 85 03/05/20 13:30 92 25 153/75 (101) 100 03/05/20 13:00 97.3 89 22 161/78 (105) 100 03/05/20 13:00 20 130/65 Mechanical Ventilator 85 03/05/20 13:00 20 Mechanical Ventilator 85 Labs: Laboratory Tests 03/06/20 04:30: White Blood Count 20.7H, Red Blood Count 3.54L, Hemoglobin 9.8L, Hematocrit 30.3L, Mean Corpuscular Volume 86, Mean Corpuscular Hemoglobin 27.7, Mean Corpuscular Hemoglobin Concent 32.3, Red Cell Distribution Width 19.1H, Platelet Count 285, Mean Platelet Volume 7.9, Neutrophils (%) (Auto) , Lymphocytes (%) (Auto) , Monocytes (%) (Auto) , Eosinophils (%) (Auto) , Basophils (%) (Auto) , Differential Total Cells Counted 100, Neutrophils % (Manual) 88H, Lymphocytes % (Manual) 2L, Monocytes % (Manual) 3, Eosinophils % (Manual) 0, Basophils % (Manual) 0, Band Neutrophils 7, Nucleated Red Blood Cells 1, Platelet Estimate Adequate, Platelet Morphology Normal, Hypochromasia 1+, Anisocytosis 2+, Sodium Level 146H, Potassium Level 3.2L, Chloride Level 107, Carbon Dioxide Level 28, Anion Gap 11, Blood Urea Nitrogen 62H, Creatinine 1.5H, Estimat Glomerular Filtration Rate 42.9, Glucose Level 254H, Calcium Level 9.2, Total Bilirubin 3.4H, Direct Bilirubin 2.9H, Aspartate Amino Transf (AST/SGOT) 105H, Alanine Aminotransferase (ALT/SGPT) 85H, Alkaline Phosphatase 1565H, Total Protein 7.0, Albumin 1.3L, Globulin 5.7, Albumin/Globulin Ratio 0.2L 03/06/20 08:12: Arterial Blood pH 7.400, Arterial Blood Partial Pressure CO2 51.2H, Arterial Blood Partial Pressure O2 54.5L, Arterial Blood HCO3 32.0H, Arterial Blood Oxygen Saturation 86.6*L, Arterial Blood Base Excess 5.3H, Bryan Test Positive 03/06/20 11:05: Vancomycin Level Trough 22.0H Objective: deferred due to COVID Micro: Microbiology Date/Time Source Procedure Growth Status 03/04/20 05:00 Sputum Gram Stain - Final Resulted 03/04/20 05:00 Sputum Culture - Preliminary Gram Negative Bacillus 1 Gram Negative Bacillus 2 Staphylococcus Aureus Resulted 03/03/20 16:30 Blood Blood Culture - Final Staphylococcus Aureus - Mrsa Complete Accucheck: 199 Germán Feliz MD Mar 06, 2020 12:50
--- NOTE | 2020-03-06 13:45 | NUR ---
NURSE NOTES: obtained order for fentanyl and versed drips to be renewed, patient remains on versed at 10mg/hr and fentanyl at 300mcg/min. patient remains stable.
--- NOTE | 2020-03-06 15:30 | NUR ---
NURSE NOTES: new bag of fentanyl hung at rate of 30ml/hr at 300mcg/hr. remains on tube feeding at with no residual noted.
--- NOTE | 2020-03-06 17:18 | NUR ---
CASE MANAGEMENT:REVIEW SI;RESPIRATORY FAILURE 101.0 116 51 196/98 98% ETT/VENT SUPPORT AC 22 TV 550 PEEP 12 FIO2 60% WBC 20.7 H/H 9.8/30.3 NA 146 K+ 3.2 BUN 62 CR 1.5 BG 254 T-BILI 3.4 D-BILI 2.9 AST 105 ALT 85 ALP 1565 ALB 1.3 IS;FENTANYL GTT IV K-DUR NG ONCE NORVASC NG BID MYAMBUTOL NG QD PZA NG QD ISONIAZID NG QD RIFAMPIN NG QD CEFEPIME IV Q24 VANCOMYCIN IV Q24 ICU STATUS DCP;FROM HOME
--- NOTE | 2020-03-06 17:59 | Surgery Progress Note ---
Surgery Progress Note Subjective Additional Comments ill appearing on support less agitated Objective Last 24 Hour Vital Signs Date Time Temp Pulse Resp B/P (MAP) Pulse Ox O2 Delivery O2 Flow Rate FiO2 03/06/20 17:00 110 35 128/74 (92) 99 03/06/20 16:30 109 32 127/76 (93) 100 03/06/20 16:00 108 03/06/20 16:00 60 03/06/20 16:00 Mechanical Ventilator 03/06/20 16:00 98.6 108 33 123/73 (90) 98 03/06/20 15:30 107 31 111/69 (83) 99 03/06/20 15:21 108 32 60 03/06/20 15:02 28 129/74 Mechanical Ventilator 100 03/06/20 15:00 109 35 129/74 (92) 98 03/06/20 14:30 110 37 138/86 (103) 97 03/06/20 14:00 86 32 102/60 (74) 96 03/06/20 13:30 92 31 100/59 (73) 97 03/06/20 13:00 100 32 120/70 (87) 91 03/06/20 12:30 100 39 174/95 (121) 95 03/06/20 12:10 30 Mechanical Ventilator 60 03/06/20 12:00 98.8 95 36 130/75 (93) 93 03/06/20 12:00 60 03/06/20 12:00 Mechanical Ventilator 03/06/20 12:00 93 03/06/20 11:30 103 28 96/67 (77) 03/06/20 11:13 111 37 60 03/06/20 11:00 104 35 121/74 (90) 89 03/06/20 10:30 110 37 153/94 (113) 03/06/20 10:00 116 37 154/85 (108) 94 03/06/20 09:30 108 150/88 03/06/20 09:30 108 33 161/106 (124) 93 03/06/20 09:29 108 150/88 03/06/20 09:00 109 23 150/88 (108) 98 03/06/20 08:30 112 31 141/79 (99) 97 03/06/20 08:00 109 03/06/20 08:00 Mechanical Ventilator 03/06/20 08:00 98.3 109 18 134/85 (101) 98 03/06/20 08:00 60 03/06/20 07:30 109 25 142/73 (96) 100 03/06/20 07:29 108 30 100 Mechanical Ventilator 60 106 30 60 03/06/20 07:00 111 26 129/74 (92) 100 03/06/20 07:00 22 129/74 Mechanical Ventilator 70 03/06/20 07:00 22 Mechanical Ventilator 70 03/06/20 06:30 112 26 134/79 (97) 100 03/06/20 06:24 32 Mechanical Ventilator 70 03/06/20 06:00 32 156/85 Mechanical Ventilator 70 03/06/20 06:00 32 Mechanical Ventilator 70 03/06/20 06:00 101 34 158/85 (109) 100 03/06/20 05:42 32 174/104 Mechanical Ventilator 70 03/06/20 05:30 105 34 174/104 (127) 100 03/06/20 05:00 32 152/90 Mechanical Ventilator 75 03/06/20 05:00 32 Mechanical Ventilator 75 03/06/20 05:00 112 32 152/90 (110) 70 03/06/20 04:30 113 50 147/76 (99) 100 03/06/20 04:00 101.0 117 45 142/85 (104) 95 03/06/20 04:00 115 03/06/20 04:00 32 156/89 Mechanical Ventilator 75 03/06/20 04:00 32 Mechanical Ventilator 75 03/06/20 04:00 75 03/06/20 04:00 Mechanical Ventilator 03/06/20 03:45 51 191/103 Mechanical Ventilator 75 03/06/20 03:45 51 Mechanical Ventilator 75 03/06/20 03:30 115 37 100 Mechanical Ventilator 70 118 39 80 03/06/20 03:30 116 51 205/84 (124) 85 03/06/20 03:00 39 156/87 Mechanical Ventilator 75 03/06/20 03:00 39 Mechanical Ventilator 75 03/06/20 03:00 117 36 156/87 (110) 97 03/06/20 02:30 116 42 174/102 (126) 96 03/06/20 02:25 197/89 03/06/20 02:25 197/89 03/06/20 02:00 41 174/102 Mechanical Ventilator 75 03/06/20 02:00 36 Mechanical Ventilator 75 03/06/20 02:00 109 44 197/89 (125) 100 03/06/20 01:30 98 35 168/90 (116) 90 03/06/20 01:00 36 178/90 Mechanical Ventilator 75 03/06/20 01:00 34 Mechanical Ventilator 75 03/06/20 01:00 97 28 164/81 (108) 100 03/06/20 00:30 101 38 196/98 (130) 98 03/06/20 00:18 22 Mechanical Ventilator 80 03/06/20 00:00 98.9 94 36 160/88 (112) 100 03/06/20 00:00 75 03/06/20 00:00 34 178/90 Mechanical Ventilator 80 03/06/20 00:00 26 Mechanical Ventilator 80 03/06/20 00:00 Mechanical Ventilator 03/06/20 00:00 101 03/05/20 23:30 101 29 157/91 (113) 99 03/05/20 23:00 26 167/70 Mechanical Ventilator 80 03/05/20 23:00 31 Mechanical Ventilator 80 03/05/20 23:00 86 22 161/91 (114) 100 03/05/20 22:57 87 29 100 Mechanical Ventilator 80 91 29 80 03/05/20 22:30 88 22 161/70 (100) 100 03/05/20 22:00 26 161/70 Mechanical Ventilator 85 03/05/20 22:00 26 Mechanical Ventilator 80 03/05/20 22:00 106 22 149/97 (114) 100 03/05/20 21:45 104 150/80 03/05/20 21:30 101 22 148/113 (125) 100 03/05/20 21:00 26 148/113 Mechanical Ventilator 85 03/05/20 21:00 26 Mechanical Ventilator 85 03/05/20 21:00 101 22 155/73 (100) 100 03/05/20 20:30 102 22 153/78 (103) 100 03/05/20 20:00 97.9 103 22 153/92 (112) 100 03/05/20 20:00 106 03/05/20 20:00 80 03/05/20 20:00 22 153/78 Mechanical Ventilator 85 03/05/20 20:00 26 Mechanical Ventilator 85 03/05/20 20:00 Mechanical Ventilator 03/05/20 19:35 104 24 100 Mechanical Ventilator 85 105 25 85 03/05/20 19:30 105 22 166/91 (116) 100 03/05/20 19:00 104 24 159/87 (111) 100 03/05/20 19:00 22 150/80 Mechanical Ventilator 85 03/05/20 19:00 20 Mechanical Ventilator 85 03/05/20 18:00 90 24 166/82 (110) 100 03/05/20 18:00 22 139/77 Mechanical Ventilator 85 03/05/20 18:00 22 Mechanical Ventilator 85 I&O Intake and Output 03/05/20 03/06/20 18:59 06:59 Intake Total 1840.934 ml 1645.5 ml Output Total 1015 ml 1775 ml Balance 825.934 ml -129.5 ml Free Water 300 ml 300 ml IV Total 640.934 ml 445.5 ml Tube Feeding 900 ml 900 ml Output Urine Total 1015 ml 1575 ml Stool Total 200 ml Dressing: saturated Cardiovascular: RSR Respiratory: decreased breath sounds Abdomen: non-tender, present bowel sounds Extremities: no tenderness, no cyanosis Laboratory Tests Test 03/06/20 04:30 03/06/20 08:12 03/06/20 11:05 White Blood Count 20.7 K/UL (4.8-10.8) H Red Blood Count 3.54 M/UL (4.20-5.40) L Hemoglobin 9.8 G/DL (12.0-16.0) L Hematocrit 30.3 % (37.0-47.0) L Mean Corpuscular Volume 86 FL (80-99) Mean Corpuscular Hemoglobin 27.7 PG (27.0-31.0) Mean Corpuscular Hemoglobin Concent 32.3 G/DL (32.0-36.0) Red Cell Distribution Width 19.1 % (11.6-14.8) H Platelet Count 285 K/UL (150-450) Mean Platelet Volume 7.9 FL (6.5-10.1) Neutrophils (%) (Auto) % (45.0-75.0) Lymphocytes (%) (Auto) % (20.0-45.0) Monocytes (%) (Auto) % (1.0-10.0) Eosinophils (%) (Auto) % (0.0-3.0) Basophils (%) (Auto) % (0.0-2.0) Differential Total Cells Counted 100 Neutrophils % (Manual) 88 % (45-75) H Lymphocytes % (Manual) 2 % (20-45) L Monocytes % (Manual) 3 % (1-10) Eosinophils % (Manual) 0 % (0-3) Basophils % (Manual) 0 % (0-2) Band Neutrophils 7 % (0-8) Nucleated Red Blood Cells 1 /100 WBC Platelet Estimate Adequate Platelet Morphology Normal Hypochromasia 1+ Anisocytosis 2+ Sodium Level 146 MMOL/L (136-145) H Potassium Level 3.2 MMOL/L (3.5-5.1) L Chloride Level 107 MMOL/L (98-107) Carbon Dioxide Level 28 MMOL/L (21-32) Anion Gap 11 mmol/L (5-15) Blood Urea Nitrogen 62 mg/dL (7-18) H Creatinine 1.5 MG/DL (0.55-1.30) H Estimat Glomerular Filtration Rate 42.9 mL/min (>60) Glucose Level 254 MG/DL (74-106) H Calcium Level 9.2 MG/DL (8.5-10.1) Total Bilirubin 3.4 MG/DL (0.2-1.0) H Direct Bilirubin 2.9 MG/DL (0.0-0.3) H Aspartate Amino Transf (AST/SGOT) 105 U/L (15-37) H Alanine Aminotransferase (ALT/SGPT) 85 U/L (12-78) H Alkaline Phosphatase 1565 U/L (46-116) H Total Protein 7.0 G/DL (6.4-8.2) Albumin 1.3 G/DL (3.4-5.0) L Globulin 5.7 g/dL Albumin/Globulin Ratio 0.2 (1.0-2.7) L Arterial Blood pH 7.400 (7.350-7.450) Arterial Blood Partial Pressure CO2 51.2 mmHg (35.0-45.0) H Arterial Blood Partial Pressure O2 54.5 mmHg (75.0-100.0) L Arterial Blood HCO3 32.0 mmol/L (22.0-26.0) H Arterial Blood Oxygen Saturation 86.6 % (95-100) *L Arterial Blood Base Excess 5.3 (-2-2) H Bryan Test Positive Vancomycin Level Trough 22.0 ug/mL (5.0-12.0) H Plan Problems: (1) CHF (congestive heart failure) (2) SVT (supraventricular tachycardia) (3) Sepsis Assessment & Plan: patient currently in ICU. has declined since admission and intubated on vent support noted to have very agitated and requiring restraints for patients safety unfortunately she is very strong and pulls against restraints. weaning trials daily and difficult 2/2 agitation has developed wrist abrasions superficial with epidermal loss. has developed hand blister blood blister stable not infected wrap xerofoam on wrist and hand, apply abd, and wrap with kerlix sedation protocol will monitor closely (4) JC (acute kidney injury) (5) Febrile illness (6) Hypertensive urgency (7) Elevated d-dimer (8) Low back pain (9) Constipation (10) Fatty liver (11) Hypokalemia (12) Dizziness (13) Dizziness (14) Diabetes mellitus (15) Back pain (16) Enteritis (17) Gastritis (18) Hyperglycemia (19) Hyperglycemia (20) Hyperglycemia (21) Hyperlipemia (22) Neuropathy (23) Renal insufficiency (24) Renal insufficiency (25) Lung mass (26) Lung mass (27) UTI (urinary tract infection) (28) Neck pain (29) Abdominal pain (30) Bronchitis (31) Chest pain (32) Hypertension (33) Hypertension (34) Hypotension (35) Pneumonia (36) Asthma (37) URI (upper respiratory infection) (38) Pain (39) Cellulitis, leg (40) Painful diabetic neuropathy (41) COPD exacerbation (42) Left shoulder strain (43) Neck strain (44) Abnormal LFTs (45) Trapezius muscle spasm (46) Chronic hip pain (47) Dizziness of unknown cause (48) Rotator cuff impingement syndrome of right shoulder Isai Pena Mar 06, 2020 17:59
--- NOTE | 2020-03-06 18:25 | NUR ---
NURSE NOTES: New bag of versed hung and remains running at 10mg/hr, patient remains at rass scale of -2,
[2020-03-06] MEDS: Vancomycin 1 GM in NS 275 ML IVPB SCH (18:28)
[2020-03-06] MEDS: Midazolam for drip 50 MG in NS 90 ML IV SCH (18:28)
--- NOTE | 2020-03-06 19:45 | NUR ---
NURSE HAND-OFF REPORT: Latest Vital Signs: Temperature 98.6 , Pulse 111 , B/P 130 /79 , Respiratory Rate 32 , O2 SAT 97 , Mechanical Ventilator, O2 Flow Rate . Vital Sign Comment: EKG Rhythm: Sinus Tachycardia Rhythm change?: N Notified?: Jay -dr. navarro HERNANDES Response: Latest Pineda Fall Score: 50 Fall Risk: High Risk Safety Measures: Call light Within Reach, Bed Alarm Zone 1, Side Rails Side Rails x3, Bed position Low and Locked. Fall Precautions: Door Sign Report given to JO-ANN Carrasco. she remains on fentanyl at 300mcg/min and versed at 20ml/hr at rate of 10mg/hr
[2020-03-06] MEDS: Methocarbamol 500mg tab ORAL PRN (19:53)
[2020-03-06] MEDS: Dyna-Hex 2% Top Sol 2oz TOPIC SCH (19:54)
--- NOTE | 2020-03-06 20:00 | NUR ---
NURSE NOTES: Pt was assessed after receiving change of shift report from Evans BUSCH. Pt is sedated RASS score of -2 light sedation while on Fentanyl drip at 300mcg/hr and Versed at 10mg/hr infusing via right upper arm double lumen PICC line. Orally intubated, ETT 7.5 at 25cm lipline with vent settings AC22, VT550, Peep 12, FIO2 60% with O2Sat at 100%. Bilateral rales noted on auscultation. ST on panel monitor, HR 115 ST. Temp 98.6F rectal. Pt is maintained on cooling blanket to regulate body temperature. OGT with Glucerna 1.2 is infusing at 75ml/hour; residual noted=60ml. OGT was flushed with 100ml/water per order. Flores catheter is present, draining clear/yellow urine. Skin alterations noted on sacral and upper extremities. Pt is on pressure release mattress. Bilateral soft wrist restrains are present to prevent self/extubation as pt remains impulsive, reaching for ETT even while -2 RASS score. Skin/vascular integrity at restraint site remains within normal limits. HOB at 30degrees, bed locked, three side rails up, and call light is within reach. Will continue to monitor pt and follow plan of care per MD orders and protocol.
[2020-03-06] MEDS: Epoetin Alfa-EPBX (NON ESRD) 3000 units/ml vial SUBQ SCH (20:32)
--- NOTE | 2020-03-06 21:00 | NUR ---
NURSE NOTES: Glucose noted to be 161, scheduled Levemir given. Patient given ora care and provided with PM meds. Patients was suctioned and lavaged. Thick sputum noted with red specks.
--- NOTE | 2020-03-06 22:00 | NUR ---
NURSE NOTES: Patient remains sedated and maintaining RASS of -2. Repositioned patient and suctioned. Small mucous plugs noted with red specks. Patient remains afebrile. Cooling blanket remains underneath patient on monitor mode. Current temperature is 99.1F. NSR on the monitor, strong pulses noted.
[2020-03-07] VITALS (41 sets, daily range): BP systolic 61–231; BP diastolic 30–128
--- NOTE | 2020-03-07 | NUR ---
NURSE NOTES: Patient remains sedated and maintaining RASS of -2. Repositioned patient and suctioned. Small mucous plugs again noted with small red specks. Patient remains afebrile. Cooling blanket remains underneath patient on monitor mode. NSR on the monitor, strong pulses noted. Patient making good urine output. Will continue to monitor.
[2020-03-07] MEDS: Cefepime HCl 1 GM in D5W 55 ML IVPB SCH ×2 (00:56→23:34)
[2020-03-07] MEDS: Midazolam for drip 50 MG in NS 90 ML IV SCH ×5 (01:20→22:11)
[2020-03-07] MEDS: fentaNYL 2500mcg/NS 250ml 250 ML IV SCH ×4 (01:21→22:12)
--- NOTE | 2020-03-07 02:00 | NUR ---
NURSE NOTES: Patient repositioned, lavaged and suction as well as given oral care , NSR at this time, and sometimes Sinus tach in the low 100s. Rectal tube in place. Patient making good urine output, orange in color. Patient remains on 60% FiO2 at this time with SPO2 maintaining above 98%. Patient remains RASS -2. Passive Range of motioned performed. Aspiration, skin and fall precautions observed, PICC line remains still patent and intact. Dressing is clean, dry and intact. Left hand palm blister remains intact, dressing was changed.
[2020-03-07] MEDS: Ipratropium Bromide Inhaler INH SCH ×6 (02:36→23:16)
--- NOTE | 2020-03-07 04:00 | NUR ---
NURSE NOTES: Patient was given another sponge bath and Flores care again performed. Patient kept clean, dry and safe. Oral care performed, lavaged and suctioned, thick mucous secretions noted with minor red specks and small mucous plugs noticed. Patient continually being suctioned and often lavaged to avoid larger mucous plug. Patient remains well sedated with RASS of -2. Patent is tolerated ventilator settings. Safety checks performed. Range of motioned performed during sponge bath. Patient remains afebrile and remains on the cooling blanket. Cooling blanket set to regulate temperature to 98.9.F
[2020-03-07] MEDS: Metoclopramide 10mg/10ml Liq NG SCH ×5 (05:15→23:31)
[2020-03-07 05:43] LABS: HEMATOCRIT 29.5 % (37.0-47.0); HEMOGLOBIN 9.6 G/DL (12.0-16.0); MEAN CORPUSCULAR VOLUME 85 FL (80-99); PLATELET COUNT 286 K/UL (150-450); RED BLOOD COUNT 3.47 M/UL (4.20-5.40); RED CELL DISTRIBUTION WIDTH 19.2 % (11.6-14.8); WHITE BLOOD COUNT 20.4 K/UL (4.8-10.8)
--- NOTE | 2020-03-07 06:00 | NUR ---
NURSE NOTES: Hung new Fentanyl and Versed bags. Patient repositioned and was given oral care and suctioned, patient remains on 60% FiO2 and saturating at 98%, HR is 98 NSR, strong pulses present. BP noted to be stable 126/88, NAD at this time, patient remains lightly sedated with RASS score. Afebrile. Safety measures performed, rectal tube remains in place, PICC line remains patent, intact and asymptomatic, ETT remains properly secured and at 25cm at lower lip line, patient tolerating vent settings. Will continue to monitor .
[2020-03-07] MEDS: NovoLOG Insulin Flexpen SUBQ SCH ×4 (06:06→18:14)
[2020-03-07 06:50] LABS: ALBUMIN 1.3 G/DL (3.4-5.0); ALBUMIN/GLOBULIN RATIO 0.2 (1.0-2.7); BILIRUBIN,TOTAL 4.8 MG/DL (0.2-1.0); CALCIUM 9.2 MG/DL (8.5-10.1); CREATININE 1.3 MG/DL (0.55-1.30); POTASSIUM 3.2 MMOL/L (3.5-5.1)
--- NOTE | 2020-03-07 07:05 | NUR ---
HAND-OFF: Report given to Fernando BUSCH.
--- NOTE | 2020-03-07 07:06 | NUR ---
NURSE NOTES: Report received from JO-ANN Carrasco. Patient is sedated in bed. RASS -2 as ordered. Patient wakes up at times, trying to reach ETT. Will continue bilateral soft wrist restraints. SR on court recording monitor. ETT 7.5 at 25cm at lip line. AC 22, TV 550, FiO2 60%, P 5. O2 sat 98-99%. OGT in place receiving Glucerna 1.2 at 7cc/hr. Will check residual. Generalized edema and fitting edema +3 on bilateral upper and lower extremities noted. Left hand blister wrapped with Kerlix and elevated with pillow. Flores in place draining orange urine due to TB medications she is receiving. Rectal tube in place draining to gravity. ULISES PICC line patent and asymptomatic. Patient is on Fentanyl at 300mcg/hr and Versed at 10mg/hr. Bed in lowest position. Side rails up x3. Will resume plan of care.
[2020-03-07 07:08] LABS: BILIRUBIN,DIRECT 4.1 MG/DL (0.0-0.3)
--- NOTE | 2020-03-07 08:29 | Infectious Diseases Prog Note ---
Assessment/Plan Assessment/Plan A 1. cavitary pneumonia with MRSA sputum AFB negative x 3 2. staph aureus (MRSA) sepsis 3. diabetes mellitus 4. hypertension 5. COPD 6. renal failure 7. aortic stenosis 8. Anemia 9. CHF, EF=40-45% 10. COVID19 pneumonia 11. Hypercapnic/ hypoxic respiratory failure 12. Positive AFB culture P 1. Continue IV Vancomycin & Cefepime 2. Continue Dexamethasone 3. Finished Remdesivir course 4. Continue TB medications 5. Change PICC line Subjective ROS Limited/Unobtainable: Yes Constitutional: Denies: fever Allergies: Coded Allergies: No Known Allergies (Unverified , 07/30/15) Objective Last 24 Hour Vital Signs Date Time Temp Pulse Resp B/P (MAP) Pulse Ox O2 Delivery O2 Flow Rate FiO2 03/07/20 07:00 22 Mechanical Ventilator 60 03/07/20 07:00 22 102/64 Mechanical Ventilator 60 03/07/20 07:00 98 19 102/64 (77) 98 03/07/20 06:30 97 20 102/58 (73) 99 03/07/20 06:07 23 126/63 60 03/07/20 06:06 23 Mechanical Ventilator 60 03/07/20 06:00 97 19 126/63 (84) 99 03/07/20 06:00 23 Mechanical Ventilator 60 03/07/20 06:00 23 126/63 Mechanical Ventilator 60 03/07/20 05:30 93 23 124/68 (86) 99 03/07/20 05:00 26 Mechanical Ventilator 60 03/07/20 05:00 26 136/86 Mechanical Ventilator 60 03/07/20 05:00 95 24 133/74 (93) 100 03/07/20 04:30 97 24 139/72 (94) 100 03/07/20 04:00 Mechanical Ventilator 03/07/20 04:00 99.0 100 23 131/71 (91) 100 03/07/20 04:00 26 Mechanical Ventilator 60 03/07/20 04:00 26 139/72 Mechanical Ventilator 60 03/07/20 04:00 60 03/07/20 03:30 102 27 111/69 (83) 100 03/07/20 03:11 81 03/07/20 03:00 85 28 103/57 (72) 98 03/07/20 03:00 25 Mechanical Ventilator 60 03/07/20 03:00 25 111/69 Mechanical Ventilator 60 03/07/20 02:36 93 31 100 Mechanical Ventilator 60 87 30 60 03/07/20 02:30 95 23 124/65 (84) 96 03/07/20 02:00 97 34 163/75 (104) 100 03/07/20 02:00 30 Mechanical Ventilator 60 03/07/20 02:00 30 163/75 Mechanical Ventilator 60 03/07/20 01:30 107 32 161/91 (114) 96 03/07/20 01:21 32 169/88 Mechanical Ventilator 60 03/07/20 01:20 32 Mechanical Ventilator 60 03/07/20 01:00 106 34 169/88 (115) 95 03/07/20 01:00 33 Mechanical Ventilator 60 03/07/20 01:00 33 161/91 Mechanical Ventilator 60 03/07/20 00:30 101 36 175/90 (118) 96 03/07/20 00:00 Mechanical Ventilator 03/07/20 00:00 34 Mechanical Ventilator 60 03/07/20 00:00 34 175/90 Mechanical Ventilator 60 03/07/20 00:00 60 03/07/20 00:00 98.9 84 30 137/89 (105) 98 03/06/20 23:30 88 33 155/80 (105) 98 03/06/20 23:01 89 03/06/20 23:00 30 Mechanical Ventilator 60 03/06/20 23:00 30 155/80 Mechanical Ventilator 60 03/06/20 23:00 85 29 143/75 (97) 99 03/06/20 22:50 88 34 100 Mechanical Ventilator 60 90 32 60 03/06/20 22:30 84 28 140/76 (97) 99 03/06/20 22:00 33 Mechanical Ventilator 60 03/06/20 22:00 33 140/76 Mechanical Ventilator 60 03/06/20 22:00 81 26 126/68 (87) 100 03/06/20 21:30 79 26 85/55 (65) 100 03/06/20 21:00 22 Mechanical Ventilator 60 03/06/20 21:00 22 90/61 Mechanical Ventilator 60 03/06/20 21:00 106 22 90/61 (71) 100 03/06/20 20:30 112 29 111/69 (83) 99 03/06/20 20:00 Mechanical Ventilator 03/06/20 20:00 60 03/06/20 20:00 91 03/06/20 20:00 31 Mechanical Ventilator 60 03/06/20 20:00 31 135/81 Mechanical Ventilator 60 03/06/20 20:00 98.6 112 31 135/81 (99) 99 03/06/20 19:53 111 141/76 03/06/20 19:53 111 141/76 03/06/20 19:30 115 35 141/76 (97) 97 03/06/20 19:23 111 32 100 Mechanical Ventilator 60 110 30 60 03/06/20 19:00 114 33 130/79 (96) 97 03/06/20 18:30 120 39 146/78 (100) 95 03/06/20 18:28 24 Mechanical Ventilator 60 03/06/20 18:00 111 34 131/79 (96) 100 03/06/20 17:30 111 34 132/72 (92) 100 03/06/20 17:00 110 35 128/74 (92) 99 03/06/20 16:30 109 32 127/76 (93) 100 03/06/20 16:00 108 03/06/20 16:00 60 03/06/20 16:00 Mechanical Ventilator 03/06/20 16:00 98.6 108 33 123/73 (90) 98 03/06/20 15:30 107 31 111/69 (83) 99 03/06/20 15:21 108 32 60 03/06/20 15:02 28 129/74 Mechanical Ventilator 100 03/06/20 15:00 109 35 129/74 (92) 98 03/06/20 14:30 110 37 138/86 (103) 97 03/06/20 14:00 86 32 102/60 (74) 96 03/06/20 13:30 92 31 100/59 (73) 97 03/06/20 13:00 100 32 120/70 (87) 91 03/06/20 12:30 100 39 174/95 (121) 95 03/06/20 12:10 30 Mechanical Ventilator 60 03/06/20 12:00 98.8 95 36 130/75 (93) 93 03/06/20 12:00 60 03/06/20 12:00 Mechanical Ventilator 03/06/20 12:00 93 03/06/20 11:30 103 28 96/67 (77) 12/9/20 11:13 111 37 60 03/06/20 11:00 104 35 121/74 (90) 89 03/06/20 10:30 110 37 153/94 (113) 03/06/20 10:00 116 37 154/85 (108) 94 03/06/20 09:30 108 150/88 03/06/20 09:30 108 33 161/106 (124) 93 03/06/20 09:29 108 150/88 03/06/20 09:00 109 23 150/88 (108) 98 03/06/20 08:30 112 31 141/79 (99) 97 Height (Feet): 5 Height (Inches): 1.00 Weight (Pounds): 168 HEENT: other - orally intubated Respiratory/Chest: other - on ventilator Cardiovascular: normal rate Abdomen: soft, non tender Extremities: other - generalized edema Laboratory Tests Test 03/06/20 11:05 03/07/20 04:00 Vancomycin Level Trough 22.0 ug/mL (5.0-12.0) H White Blood Count 20.4 K/UL (4.8-10.8) H Red Blood Count 3.47 M/UL (4.20-5.40) L Hemoglobin 9.6 G/DL (12.0-16.0) L Hematocrit 29.5 % (37.0-47.0) L Mean Corpuscular Volume 85 FL (80-99) Mean Corpuscular Hemoglobin 27.7 PG (27.0-31.0) Mean Corpuscular Hemoglobin Concent 32.6 G/DL (32.0-36.0) Red Cell Distribution Width 19.2 % (11.6-14.8) H Platelet Count 286 K/UL (150-450) Mean Platelet Volume 9.0 FL (6.5-10.1) Neutrophils (%) (Auto) % (45.0-75.0) Lymphocytes (%) (Auto) % (20.0-45.0) Monocytes (%) (Auto) % (1.0-10.0) Eosinophils (%) (Auto) % (0.0-3.0) Basophils (%) (Auto) % (0.0-2.0) Neutrophils % (Manual) Pending Lymphocytes % (Manual) Pending Platelet Estimate Pending Platelet Morphology Pending Sodium Level 148 MMOL/L (136-145) H Potassium Level 3.2 MMOL/L (3.5-5.1) L Chloride Level 108 MMOL/L (98-107) H Carbon Dioxide Level 30 MMOL/L (21-32) Anion Gap 10 mmol/L (5-15) Blood Urea Nitrogen 59 mg/dL (7-18) H Creatinine 1.3 MG/DL (0.55-1.30) Estimat Glomerular Filtration Rate 50.7 mL/min (>60) Glucose Level 153 MG/DL (74-106) #H Calcium Level 9.2 MG/DL (8.5-10.1) Total Bilirubin 4.8 MG/DL (0.2-1.0) H Direct Bilirubin 4.1 MG/DL (0.0-0.3) H Aspartate Amino Transf (AST/SGOT) 73 U/L (15-37) H Alanine Aminotransferase (ALT/SGPT) 64 U/L (12-78) Alkaline Phosphatase 1366 U/L (46-116) H Total Protein 7.1 G/DL (6.4-8.2) Albumin 1.3 G/DL (3.4-5.0) L Globulin 5.8 g/dL Albumin/Globulin Ratio 0.2 (1.0-2.7) L Current Medications Medications (Trade) Dose Ordered Sig/Ivana Route PRN Reason Start Time Stop Time Status Last Admin Dose Admin Acetaminophen (Tylenol) 650 mg EVERY 6 HOURS PRN NG Mild Pain (Pain Scale 1-3) 02/27/20 07:45 03/28/20 07:44 03/05/20 15:54 Amlodipine Besylate (Norvasc) 5 mg BID@0900,2100 NG 03/06/20 09:00 04/05/20 08:59 03/06/20 19:53 Aspirin (ASA) 81 mg DAILY NG 02/27/20 09:00 03/30/20 08:59 03/06/20 09:29 Cefepime HCl 1 gm/ Dextrose 55 ml @ 110 mls/hr Q24H IVPB 03/04/20 01:00 03/11/20 00:59 03/07/20 00:56 Chlorhexidine Gluconate (Divina-Hex 2%) 1 applic DAILY@1999 TOPIC 02/26/20 20:00 05/26/20 19:59 03/06/20 19:54 Clonidine HCl (Catapres Tab) 0.1 mg Q4H PRN ORAL SBP > 150mmHg 02/06/20 07:00 05/06/20 06:59 03/06/20 02:25 Dexamethasone Sodium Phosphate (Decadron 4mg/ml vial) 6 mg Q24H IVP 03/02/20 12:00 03/11/20 12:01 03/06/20 12:20 Dextrose (Dextrose 50%) 25 ml Q30M PRN IV Hypoglycemia 01/28/20 22:45 04/27/20 22:44 Dextrose (Dextrose 50%) 50 ml Q30M PRN IV Hypoglycemia 01/28/20 22:45 04/27/20 22:44 Epoetin Haseeb (Epoetin Haseeb-EPBX(NON ESRD)) 6,000 unit WED-WED-WED SUBQ 03/04/20 21:00 06/02/20 20:59 03/06/20 20:32 Ethambutol HCl (Myambutol) 800 mg DAILY ORAL 03/04/20 13:00 04/03/20 12:59 03/06/20 09:30 Fentanyl Citrate 250 ml @ 1 mls/hr Q24H IV 03/06/20 15:00 03/08/20 14:59 03/07/20 06:07 Furosemide (Lasix) 20 mg EVERY 12 HOURS IV 03/01/20 21:00 03/31/20 20:59 03/06/20 19:54 Guaifenesin/ Dextromethorphan (Robitussin DM Syrup) 15 ml Q4H PRN ORAL For Cough 02/12/20 16:53 05/12/20 16:52 02/19/20 22:21 Heparin Sodium (Porcine) (Heparin 5000 units/ml) 5,000 units EVERY 12 HOURS SUBQ 02/28/20 21:00 04/13/20 20:59 03/06/20 19:54 Hydralazine HCl (Apresoline) 25 mg Q6H PRN ORAL SBP above 150 02/27/20 23:15 05/27/20 23:14 03/06/20 02:25 Insulin Aspart (NovoLOG) Q6HR SUBQ 01/29/20 00:00 04/28/20 00:00 03/07/20 06:06 Insulin Detemir (Levemir) 15 units EVERY 12 HOURS SUBQ 03/04/20 09:00 05/30/20 08:59 03/06/20 20:32 Ipratropium [place] (Atrovent Inh) 1 puffs Q4HRT INH 02/28/20 15:00 03/19/20 17:59 03/07/20 02:36 Isoniazid (Inh) 300 mg DAILY ORAL 03/04/20 13:00 04/03/20 12:59 03/06/20 09:29 Lidocaine (Lidoderm 5% PATCH) 1 patch DAILY TDERMAL 02/11/20 09:30 05/11/20 09:29 03/06/20 09:30 Methocarbamol (Robaxin) 500 mg Q8H PRN ORAL muscle spasm 02/11/20 09:30 03/12/20 09:29 03/06/20 19:53 Metoclopramide HCl (Reglan) 5 mg EVERY 6 HOURS NG 03/04/20 21:00 04/03/20 20:59 03/07/20 05:15 Metoprolol Tartrate (Lopressor) 100 mg Q12HR NG 03/03/20 10:00 05/04/20 09:59 03/06/20 19:53 Midazolam HCl 50 mg/Sodium Chloride 100 ml @ 0 mls/hr Q24H IV 03/06/20 17:00 03/08/20 16:59 03/07/20 06:06 Multivitamins (Multivitamins W/ Minerals 15ml Liquid) 15 ml DAILY NG 02/27/20 09:00 03/28/20 08:59 03/06/20 09:30 Pantoprazole (Protonix) 40 mg EVERY 12 HOURS IVP 02/25/20 10:00 03/24/20 08:59 03/06/20 19:54 Pyrazinamide (Pza) 1,500 mg DAILY ORAL 03/04/20 13:00 04/03/20 12:59 03/06/20 09:29 Pyridoxine HCl (Vitamin B6) 50 mg DAILY ORAL 03/04/20 13:00 04/03/20 12:59 03/06/20 09:30 Rifampin (Rifadin) 600 mg DAILY ORAL 03/04/20 13:00 04/03/20 12:59 03/06/20 09:28 Sorbitol (sorbitoL) 30 ml Q8H PRN NG Constipation 02/28/20 16:15 03/29/20 16:14 02/28/20 17:08 Vancomycin HCl (Vanco pharmacy to dose) 1 ea DAILY PRN MISC Per rx protocol 02/13/20 11:30 03/14/20 11:29 Vancomycin HCl 1 gm/Sodium Chloride 275 ml @ 183.708 mls/hr Q24H IVPB 03/06/20 18:00 03/11/20 17:59 03/06/20 18:28 Anderson Durham MD Mar 07, 2020 08:29
[2020-03-07] MEDS ORDERED: Lidocaine 1% Plain 30 ml INJ PRN (08:30)
[2020-03-07] MEDS ORDERED: Heparin1,000 units/500ml Premix(Conc:2 units/ml) IV PRN (08:30)
--- NOTE | 2020-03-07 08:31 | Critical Care Progress Note ---
Assessment/Plan Assessment/Plan IMPRESSION acute respiratory failure/ now on vent leukocytosis, possibly exacerbated by steroids sepsis ARF toxic met encephalopathy COPD DM poor control cavitary lesion negative AFB groundglass infiltrates NSTEMI severe PCM hypertension left shoulder pain bacteremia MRSA hematuria COVID anemia diabetes s/p respiratory code hypernatremia edema PLAN lasix with caution monitor sodium levels DVT prophylaxis monitor HH antibiotics per ID beta rusty vent support- taper oxygen as able; taper PEEP monitor acid base NGT and feeds monitor lytes maintain support- via vent and change to volume ventilation monitor LOC critical at present maintain sedation adjust insulin and monitor sugars as needed consider wean soon medications/laboratory data/nursing notes/ICU care reviewed in detail note reviewed and edited care discussed with RN and RT ICU time spent >40 minutes Critical Care - Subjective Interval Events: vitals and oxygenation better sedated on vent ROS Limited/Unobtainable: Yes Condition: critical EKG Rhythm: Sinus Rhythm Residuals: minimal Tube Feeding Tolerated: yes I&O: Intake and Output 03/06/20 03/07/20 19:00 07:00 Intake Total 1717.9 ml 2107.1 ml Output Total 2299 ml 1525 ml Balance -581.1 ml 582.1 ml Free Water 150 ml 400 ml IV Total 647.9 ml 807.1 ml Tube Feeding 900 ml 900 ml Other 20 ml Output Urine Total 1899 ml 1525 ml Stool Total 400 ml Critical Care - Objective ET-Tube: 7.5 ET Position: 25 Last 24 Hour Vital Signs Date Time Temp Pulse Resp B/P (MAP) Pulse Ox O2 Delivery O2 Flow Rate FiO2 03/07/20 07:00 22 Mechanical Ventilator 60 03/07/20 07:00 22 102/64 Mechanical Ventilator 60 03/07/20 07:00 98 19 102/64 (77) 98 03/07/20 06:30 97 20 102/58 (73) 99 03/07/20 06:07 23 126/63 60 03/07/20 06:06 23 Mechanical Ventilator 60 03/07/20 06:00 97 19 126/63 (84) 99 03/07/20 06:00 23 Mechanical Ventilator 60 03/07/20 06:00 23 126/63 Mechanical Ventilator 60 03/07/20 05:30 93 23 124/68 (86) 99 03/07/20 05:00 26 Mechanical Ventilator 60 03/07/20 05:00 26 136/86 Mechanical Ventilator 60 03/07/20 05:00 95 24 133/74 (93) 100 03/07/20 04:30 97 24 139/72 (94) 100 03/07/20 04:00 Mechanical Ventilator 03/07/20 04:00 99.0 100 23 131/71 (91) 100 03/07/20 04:00 26 Mechanical Ventilator 60 03/07/20 04:00 26 139/72 Mechanical Ventilator 60 03/07/20 04:00 60 03/07/20 03:30 102 27 111/69 (83) 100 03/07/20 03:11 81 03/07/20 03:00 85 28 103/57 (72) 98 03/07/20 03:00 25 Mechanical Ventilator 60 03/07/20 03:00 25 111/69 Mechanical Ventilator 60 03/07/20 02:36 93 31 100 Mechanical Ventilator 60 87 30 60 03/07/20 02:30 95 23 124/65 (84) 96 03/07/20 02:00 97 34 163/75 (104) 100 03/07/20 02:00 30 Mechanical Ventilator 60 03/07/20 02:00 30 163/75 Mechanical Ventilator 60 03/07/20 01:30 107 32 161/91 (114) 96 03/07/20 01:21 32 169/88 Mechanical Ventilator 60 03/07/20 01:20 32 Mechanical Ventilator 60 03/07/20 01:00 106 34 169/88 (115) 95 03/07/20 01:00 33 Mechanical Ventilator 60 03/07/20 01:00 33 161/91 Mechanical Ventilator 60 03/07/20 00:30 101 36 175/90 (118) 96 03/07/20 00:00 Mechanical Ventilator 03/07/20 00:00 34 Mechanical Ventilator 60 03/07/20 00:00 34 175/90 Mechanical Ventilator 60 03/07/20 00:00 60 03/07/20 00:00 98.9 84 30 137/89 (105) 98 03/06/20 23:30 88 33 155/80 (105) 98 03/06/20 23:01 89 03/06/20 23:00 30 Mechanical Ventilator 60 03/06/20 23:00 30 155/80 Mechanical Ventilator 60 03/06/20 23:00 85 29 143/75 (97) 99 03/06/20 22:50 88 34 100 Mechanical Ventilator 60 90 32 60 03/06/20 22:30 84 28 140/76 (97) 99 03/06/20 22:00 33 Mechanical Ventilator 60 03/06/20 22:00 33 140/76 Mechanical Ventilator 60 03/06/20 22:00 81 26 126/68 (87) 100 03/06/20 21:30 79 26 85/55 (65) 100 03/06/20 21:00 22 Mechanical Ventilator 60 03/06/20 21:00 22 90/61 Mechanical Ventilator 60 03/06/20 21:00 106 22 90/61 (71) 100 03/06/20 20:30 112 29 111/69 (83) 99 03/06/20 20:00 Mechanical Ventilator 03/06/20 20:00 60 03/06/20 20:00 91 03/06/20 20:00 31 Mechanical Ventilator 60 03/06/20 20:00 31 135/81 Mechanical Ventilator 60 03/06/20 20:00 98.6 112 31 135/81 (99) 99 03/06/20 19:53 111 141/76 03/06/20 19:53 111 141/76 03/06/20 19:30 115 35 141/76 (97) 97 03/06/20 19:23 111 32 100 Mechanical Ventilator 60 110 30 60 03/06/20 19:00 114 33 130/79 (96) 97 03/06/20 18:30 120 39 146/78 (100) 95 03/06/20 18:28 24 Mechanical Ventilator 60 03/06/20 18:00 111 34 131/79 (96) 100 03/06/20 17:30 111 34 132/72 (92) 100 03/06/20 17:00 110 35 128/74 (92) 99 03/06/20 16:30 109 32 127/76 (93) 100 03/06/20 16:00 108 03/06/20 16:00 60 03/06/20 16:00 Mechanical Ventilator 03/06/20 16:00 98.6 108 33 123/73 (90) 98 03/06/20 15:30 107 31 111/69 (83) 99 03/06/20 15:21 108 32 60 03/06/20 15:02 28 129/74 Mechanical Ventilator 100 03/06/20 15:00 109 35 129/74 (92) 98 12/9/20 14:30 110 37 138/86 (103) 97 03/06/20 14:00 86 32 102/60 (74) 96 03/06/20 13:30 92 31 100/59 (73) 97 03/06/20 13:00 100 32 120/70 (87) 91 03/06/20 12:30 100 39 174/95 (121) 95 03/06/20 12:10 30 Mechanical Ventilator 60 03/06/20 12:00 98.8 95 36 130/75 (93) 93 03/06/20 12:00 60 03/06/20 12:00 Mechanical Ventilator 03/06/20 12:00 93 03/06/20 11:30 103 28 96/67 (77) 03/06/20 11:13 111 37 60 03/06/20 11:00 104 35 121/74 (90) 89 03/06/20 10:30 110 37 153/94 (113) 03/06/20 10:00 116 37 154/85 (108) 94 03/06/20 09:30 108 150/88 03/06/20 09:30 108 33 161/106 (124) 93 03/06/20 09:29 108 150/88 03/06/20 09:00 109 23 150/88 (108) 98 Labs: Laboratory Tests 03/06/20 11:05: Vancomycin Level Trough 22.0H 03/07/20 04:00: White Blood Count 20.4H, Red Blood Count 3.47L, Hemoglobin 9.6L, Hematocrit 29.5L, Mean Corpuscular Volume 85, Mean Corpuscular Hemoglobin 27.7, Mean Corpuscular Hemoglobin Concent 32.6, Red Cell Distribution Width 19.2H, Platelet Count 286, Mean Platelet Volume 9.0, Neutrophils (%) (Auto) , Lymphocytes (%) (Auto) , Monocytes (%) (Auto) , Eosinophils (%) (Auto) , Basophils (%) (Auto) , Neutrophils % (Manual) [Pending], Lymphocytes % (Manual) [Pending], Platelet Estimate [Pending], Platelet Morphology [Pending], Sodium Level 148H, Potassium Level 3.2L, Chloride Level 108H, Carbon Dioxide Level 30, Anion Gap 10, Blood Urea Nitrogen 59H, Creatinine 1.3, Estimat Glomerular Filtration Rate 50.7, Glucose Level 153#H, Calcium Level 9.2, Total Bilirubin 4.8H, Direct Bilirubin 4.1H, Aspartate Amino Transf (AST/SGOT) 73H, Alanine Aminotransferase (ALT/SGPT) 64, Alkaline Phosphatase 1366H, Total Protein 7.1, Albumin 1.3L, Globulin 5.8, Albumin/Globulin Ratio 0.2L Objective: deferred due to COVID Accucheck: 140 Germán Feliz MD Mar 07, 2020 08:31
--- NOTE | 2020-03-07 08:52 | NUR ---
NURSE NOTES: Dr Peña here to see the patient. Updated him with patient's current condition. Orders for K replacement, vent setting changes, and Covid PCR test received, noted, and carried out.
[2020-03-07] MEDS: Pantoprazole Inj IVP SCH ×2 (09:50→19:42)
[2020-03-07] MEDS: Multivitamins W/Minerals 15 ML UDC NG SCH (09:50)
[2020-03-07] MEDS: Aspirin Baby 81mg NG SCH (09:51)
[2020-03-07] MEDS: Pyridoxine 50mg tab ORAL SCH (09:51)
[2020-03-07] MEDS: Metoprolol Tartrate 100mg tab NG SCH ×2 (09:52→19:44)
[2020-03-07] MEDS: Isoniazid 300mg tab ORAL SCH (09:52)
[2020-03-07] MEDS: Heparin 5000 units/ml inj SUBQ SCH ×2 (09:54→19:43)
--- NOTE | 2020-03-07 09:56 | General Progress Note ---
Subjective ROS Limited/Unobtainable: No Allergies: Coded Allergies: No Known Allergies (Unverified , 07/30/15) Objective Last 24 Hour Vital Signs Date Time Temp Pulse Resp B/P (MAP) Pulse Ox O2 Delivery O2 Flow Rate FiO2 03/07/20 09:53 81 135/74 03/07/20 09:52 81 135/74 03/07/20 07:28 80 27 60 03/07/20 07:00 22 Mechanical Ventilator 60 03/07/20 07:00 22 102/64 Mechanical Ventilator 60 03/07/20 07:00 98 19 102/64 (77) 98 03/07/20 06:30 97 20 102/58 (73) 99 03/07/20 06:07 23 126/63 60 03/07/20 06:06 23 Mechanical Ventilator 60 03/07/20 06:00 97 19 126/63 (84) 99 03/07/20 06:00 23 Mechanical Ventilator 60 03/07/20 06:00 23 126/63 Mechanical Ventilator 60 03/07/20 05:30 93 23 124/68 (86) 99 03/07/20 05:00 26 Mechanical Ventilator 60 03/07/20 05:00 26 136/86 Mechanical Ventilator 60 03/07/20 05:00 95 24 133/74 (93) 100 03/07/20 04:30 97 24 139/72 (94) 100 03/07/20 04:00 Mechanical Ventilator 03/07/20 04:00 99.0 100 23 131/71 (91) 100 03/07/20 04:00 26 Mechanical Ventilator 60 03/07/20 04:00 26 139/72 Mechanical Ventilator 60 03/07/20 04:00 60 03/07/20 03:30 102 27 111/69 (83) 100 03/07/20 03:11 81 03/07/20 03:00 85 28 103/57 (72) 98 03/07/20 03:00 25 Mechanical Ventilator 60 03/07/20 03:00 25 111/69 Mechanical Ventilator 60 03/07/20 02:36 93 31 100 Mechanical Ventilator 60 87 30 60 03/07/20 02:30 95 23 124/65 (84) 96 03/07/20 02:00 97 34 163/75 (104) 100 03/07/20 02:00 30 Mechanical Ventilator 60 03/07/20 02:00 30 163/75 Mechanical Ventilator 60 03/07/20 01:30 107 32 161/91 (114) 96 03/07/20 01:21 32 169/88 Mechanical Ventilator 60 03/07/20 01:20 32 Mechanical Ventilator 60 03/07/20 01:00 106 34 169/88 (115) 95 03/07/20 01:00 33 Mechanical Ventilator 60 03/07/20 01:00 33 161/91 Mechanical Ventilator 60 03/07/20 00:30 101 36 175/90 (118) 96 03/07/20 00:00 Mechanical Ventilator 03/07/20 00:00 34 Mechanical Ventilator 60 03/07/20 00:00 34 175/90 Mechanical Ventilator 60 03/07/20 00:00 60 03/07/20 00:00 98.9 84 30 137/89 (105) 98 03/06/20 23:30 88 33 155/80 (105) 98 03/06/20 23:01 89 03/06/20 23:00 30 Mechanical Ventilator 60 03/06/20 23:00 30 155/80 Mechanical Ventilator 60 03/06/20 23:00 85 29 143/75 (97) 99 03/06/20 22:50 88 34 100 Mechanical Ventilator 60 90 32 60 03/06/20 22:30 84 28 140/76 (97) 99 03/06/20 22:00 33 Mechanical Ventilator 60 03/06/20 22:00 33 140/76 Mechanical Ventilator 60 03/06/20 22:00 81 26 126/68 (87) 100 03/06/20 21:30 79 26 85/55 (65) 100 03/06/20 21:00 22 Mechanical Ventilator 60 03/06/20 21:00 22 90/61 Mechanical Ventilator 60 03/06/20 21:00 106 22 90/61 (71) 100 03/06/20 20:30 112 29 111/69 (83) 99 03/06/20 20:00 Mechanical Ventilator 03/06/20 20:00 60 03/06/20 20:00 91 03/06/20 20:00 31 Mechanical Ventilator 60 03/06/20 20:00 31 135/81 Mechanical Ventilator 60 03/06/20 20:00 98.6 112 31 135/81 (99) 99 03/06/20 19:53 111 141/76 12/9/20 19:53 111 141/76 03/06/20 19:30 115 35 141/76 (97) 97 03/06/20 19:23 111 32 100 Mechanical Ventilator 60 110 30 60 03/06/20 19:00 114 33 130/79 (96) 97 03/06/20 18:30 120 39 146/78 (100) 95 03/06/20 18:28 24 Mechanical Ventilator 60 03/06/20 18:00 111 34 131/79 (96) 100 03/06/20 17:30 111 34 132/72 (92) 100 03/06/20 17:00 110 35 128/74 (92) 99 03/06/20 16:30 109 32 127/76 (93) 100 03/06/20 16:00 108 03/06/20 16:00 60 03/06/20 16:00 Mechanical Ventilator 03/06/20 16:00 98.6 108 33 123/73 (90) 98 03/06/20 15:30 107 31 111/69 (83) 99 03/06/20 15:21 108 32 60 03/06/20 15:02 28 129/74 Mechanical Ventilator 100 03/06/20 15:00 109 35 129/74 (92) 98 03/06/20 14:30 110 37 138/86 (103) 97 03/06/20 14:00 86 32 102/60 (74) 96 03/06/20 13:30 92 31 100/59 (73) 97 03/06/20 13:00 100 32 120/70 (87) 91 03/06/20 12:30 100 39 174/95 (121) 95 03/06/20 12:10 30 Mechanical Ventilator 60 03/06/20 12:00 98.8 95 36 130/75 (93) 93 03/06/20 12:00 60 03/06/20 12:00 Mechanical Ventilator 03/06/20 12:00 93 03/06/20 11:30 103 28 96/67 (77) 03/06/20 11:13 111 37 60 03/06/20 11:00 104 35 121/74 (90) 89 03/06/20 10:30 110 37 153/94 (113) 03/06/20 10:00 116 37 154/85 (108) 94 Intake and Output 03/06/20 03/07/20 19:00 07:00 Intake Total 1717.9 ml 2107.1 ml Output Total 2299 ml 1525 ml Balance -581.1 ml 582.1 ml Free Water 150 ml 400 ml IV Total 647.9 ml 807.1 ml Tube Feeding 900 ml 900 ml Other 20 ml Output Urine Total 1899 ml 1525 ml Stool Total 400 ml Laboratory Tests 03/06/20 11:05: Vancomycin Level Trough 22.0H 03/07/20 04:00: White Blood Count 20.4H, Red Blood Count 3.47L, Hemoglobin 9.6L, Hematocrit 29.5L, Mean Corpuscular Volume 85, Mean Corpuscular Hemoglobin 27.7, Mean Corpuscular Hemoglobin Concent 32.6, Red Cell Distribution Width 19.2H, Platelet Count 286, Mean Platelet Volume 9.0, Neutrophils (%) (Auto) , Lymphocytes (%) (Auto) , Monocytes (%) (Auto) , Eosinophils (%) (Auto) , Basophils (%) (Auto) , Neutrophils % (Manual) [Pending], Lymphocytes % (Manual) [Pending], Platelet Estimate [Pending], Platelet Morphology [Pending], Sodium Level 148H, Potassium Level 3.2L, Chloride Level 108H, Carbon Dioxide Level 30, Anion Gap 10, Blood Urea Nitrogen 59H, Creatinine 1.3, Estimat Glomerular Filtration Rate 50.7, Glucose Level 153#H, Calcium Level 9.2, Total Bilirubin 4.8H, Direct Bilirubin 4.1H, Aspartate Amino Transf (AST/SGOT) 73H, Alanine Aminotransferase (ALT/SGPT) 64, Alkaline Phosphatase 1366H, Total Protein 7.1, Albumin 1.3L, Globulin 5.8, Albumin/Globulin Ratio 0.2L 03/07/20 08:21: Arterial Blood pH 7.385, Arterial Blood Partial Pressure CO2 50.0H, Arterial Blood Partial Pressure O2 64.8L, Arterial Blood HCO3 29.2H, Arterial Blood Oxygen Saturation 90.1L, Arterial Blood Base Excess 3.6H, Bryan Test Positive Height (Feet): 5 Height (Inches): 1.00 Weight (Pounds): 168 General Appearance: no apparent distress EENT: normal ENT inspection Neck: supple Cardiovascular: normal rate Respiratory/Chest: decreased breath sounds Abdomen: normal bowel sounds, non tender, soft Extremities: non-tender Assessment/Plan Assessment/Plan: Assessment - GIB - resolved - Anemia - TF residuals, possibly due to impaired gastric motility - COVID pneumonitis - Acute OK - on ASA - Resp failure - malnutrition/feeding tube dependent - declining albumin - partly due to liver disease - fatty liver - hepatitis C with nodular liver, PCR (+) - abnormal LFT - due to COVD, fatty liver, and HCV - HTN - COPD - Lung mass - DM - poor prognosis Recommendations - Continue TF - protein powder - short term reglan - Sq heparin - increase free water to correct Na - monitor CBC - follow LFT - PPI --> now BID - Elevate HOB - outpatient HCV eradication - Outpatient colonoscopy Pee Chan MD Mar 07, 2020 09:56
[2020-03-07] MEDS: Levemir Flexpen SUBQ SCH ×2 (10:15→20:16)
--- NOTE | 2020-03-07 10:31 | NUR ---
NURSE NOTES: RT decreased peep from 12 to 8 as per order. O2 sat 97-98%. RR 20's. Patient is tolerating new setting. Cooling blanket on monitoring mode. Rectal temp 97.5. Will continue to monitor.
--- NOTE | 2020-03-07 12:30 | NUR ---
NURSE NOTES: RASS -2. Will keep the same rate for Fentanyl and Versed. Oral care done. Turned and repositioned patient. Rectal temp 98.5. Will continue to monitor.
--- NOTE | 2020-03-07 14:50 | Surgery Progress Note ---
Surgery Progress Note Subjective Additional Comments no acute events labs noted more comfortable Objective Last 24 Hour Vital Signs Date Time Temp Pulse Resp B/P (MAP) Pulse Ox O2 Delivery O2 Flow Rate FiO2 03/07/20 14:30 25 150/86 Mechanical Ventilator 60 03/07/20 14:00 101 26 150/77 (101) 98 03/07/20 14:00 21 Mechanical Ventilator 60 03/07/20 14:00 21 145/81 Mechanical Ventilator 60 03/07/20 13:00 98 27 139/78 (98) 97 03/07/20 13:00 25 Mechanical Ventilator 60 03/07/20 13:00 25 139/78 Mechanical Ventilator 60 03/07/20 12:00 97.5 75 25 127/65 (85) 98 03/07/20 12:00 100 03/07/20 12:00 Mechanical Ventilator 03/07/20 12:00 16 Mechanical Ventilator 60 03/07/20 12:00 16 127/65 Mechanical Ventilator 60 03/07/20 12:00 60 03/07/20 11:18 81 03/07/20 11:14 81 27 60 03/07/20 11:11 29 Mechanical Ventilator 60 03/07/20 11:00 25 Mechanical Ventilator 60 03/07/20 11:00 25 151/74 Mechanical Ventilator 60 03/07/20 11:00 82 25 151/74 (99) 97 03/07/20 10:31 60 03/07/20 10:00 27 Mechanical Ventilator 60 03/07/20 10:00 27 146/70 Mechanical Ventilator 60 03/07/20 10:00 85 28 146/70 (95) 99 03/07/20 09:53 81 135/74 03/07/20 09:52 81 135/74 03/07/20 09:00 23 Mechanical Ventilator 60 03/07/20 09:00 23 135/74 Mechanical Ventilator 60 03/07/20 09:00 84 23 138/72 (94) 98 03/07/20 08:00 97.9 101 19 130/69 (89) 100 03/07/20 08:00 22 Mechanical Ventilator 60 03/07/20 08:00 22 135/74 Mechanical Ventilator 60 03/07/20 08:00 Mechanical Ventilator 03/07/20 08:00 60 03/07/20 07:28 80 27 60 03/07/20 07:00 22 Mechanical Ventilator 60 03/07/20 07:00 22 102/64 Mechanical Ventilator 60 03/07/20 07:00 98 19 102/64 (77) 98 03/07/20 06:30 97 20 102/58 (73) 99 03/07/20 06:07 23 126/63 60 03/07/20 06:06 23 Mechanical Ventilator 60 03/07/20 06:00 97 19 126/63 (84) 99 03/07/20 06:00 23 Mechanical Ventilator 60 03/07/20 06:00 23 126/63 Mechanical Ventilator 60 03/07/20 05:30 93 23 124/68 (86) 99 03/07/20 05:00 26 Mechanical Ventilator 60 03/07/20 05:00 26 136/86 Mechanical Ventilator 60 03/07/20 05:00 95 24 133/74 (93) 100 03/07/20 04:30 97 24 139/72 (94) 100 03/07/20 04:00 Mechanical Ventilator 03/07/20 04:00 99.0 100 23 131/71 (91) 100 03/07/20 04:00 26 Mechanical Ventilator 60 03/07/20 04:00 26 139/72 Mechanical Ventilator 60 03/07/20 04:00 60 03/07/20 03:30 102 27 111/69 (83) 100 03/07/20 03:11 81 03/07/20 03:00 85 28 103/57 (72) 98 03/07/20 03:00 25 Mechanical Ventilator 60 03/07/20 03:00 25 111/69 Mechanical Ventilator 60 03/07/20 02:36 93 31 100 Mechanical Ventilator 60 87 30 60 03/07/20 02:30 95 23 124/65 (84) 96 03/07/20 02:00 97 34 163/75 (104) 100 03/07/20 02:00 30 Mechanical Ventilator 60 03/07/20 02:00 30 163/75 Mechanical Ventilator 60 03/07/20 01:30 107 32 161/91 (114) 96 03/07/20 01:21 32 169/88 Mechanical Ventilator 60 03/07/20 01:20 32 Mechanical Ventilator 60 03/07/20 01:00 106 34 169/88 (115) 95 03/07/20 01:00 33 Mechanical Ventilator 60 03/07/20 01:00 33 161/91 Mechanical Ventilator 60 03/07/20 00:30 101 36 175/90 (118) 96 03/07/20 00:00 Mechanical Ventilator 03/07/20 00:00 34 Mechanical Ventilator 60 03/07/20 00:00 34 175/90 Mechanical Ventilator 60 03/07/20 00:00 60 03/07/20 00:00 98.9 84 30 137/89 (105) 98 03/06/20 23:30 88 33 155/80 (105) 98 03/06/20 23:01 89 03/06/20 23:00 30 Mechanical Ventilator 60 03/06/20 23:00 30 155/80 Mechanical Ventilator 60 03/06/20 23:00 85 29 143/75 (97) 99 03/06/20 22:50 88 34 100 Mechanical Ventilator 60 90 32 60 03/06/20 22:30 84 28 140/76 (97) 99 03/06/20 22:00 33 Mechanical Ventilator 60 03/06/20 22:00 33 140/76 Mechanical Ventilator 60 03/06/20 22:00 81 26 126/68 (87) 100 03/06/20 21:30 79 26 85/55 (65) 100 03/06/20 21:00 22 Mechanical Ventilator 60 03/06/20 21:00 22 90/61 Mechanical Ventilator 60 03/06/20 21:00 106 22 90/61 (71) 100 03/06/20 20:30 112 29 111/69 (83) 99 03/06/20 20:00 Mechanical Ventilator 03/06/20 20:00 60 03/06/20 20:00 91 03/06/20 20:00 31 Mechanical Ventilator 60 03/06/20 20:00 31 135/81 Mechanical Ventilator 60 03/06/20 20:00 98.6 112 31 135/81 (99) 99 03/06/20 19:53 111 141/76 03/06/20 19:53 111 141/76 03/06/20 19:30 115 35 141/76 (97) 97 03/06/20 19:23 111 32 100 Mechanical Ventilator 60 110 30 60 03/06/20 19:00 114 33 130/79 (96) 97 03/06/20 18:30 120 39 146/78 (100) 95 03/06/20 18:28 24 Mechanical Ventilator 60 03/06/20 18:00 111 34 131/79 (96) 100 03/06/20 17:30 111 34 132/72 (92) 100 03/06/20 17:00 110 35 128/74 (92) 99 03/06/20 16:30 109 32 127/76 (93) 100 03/06/20 16:00 108 03/06/20 16:00 60 03/06/20 16:00 Mechanical Ventilator 03/06/20 16:00 98.6 108 33 123/73 (90) 98 03/06/20 15:30 107 31 111/69 (83) 99 03/06/20 15:21 108 32 60 03/06/20 15:02 28 129/74 Mechanical Ventilator 100 03/06/20 15:00 109 35 129/74 (92) 98 I&O Intake and Output 03/06/20 03/07/20 19:00 07:00 Intake Total 1717.9 ml 2107.1 ml Output Total 2299 ml 1525 ml Balance -581.1 ml 582.1 ml Free Water 150 ml 400 ml IV Total 647.9 ml 807.1 ml Tube Feeding 900 ml 900 ml Other 20 ml Output Urine Total 1899 ml 1525 ml Stool Total 400 ml Dressing: saturated Cardiovascular: RSR Respiratory: decreased breath sounds Abdomen: non-tender, present bowel sounds Extremities: edema, no tenderness, no cyanosis, pulses, other Laboratory Tests Test 03/07/20 04:00 03/07/20 08:21 03/07/20 10:03 03/07/20 11:26 White Blood Count 20.4 K/UL (4.8-10.8) H Red Blood Count 3.47 M/UL (4.20-5.40) L Hemoglobin 9.6 G/DL (12.0-16.0) L Hematocrit 29.5 % (37.0-47.0) L Mean Corpuscular Volume 85 FL (80-99) Mean Corpuscular Hemoglobin 27.7 PG (27.0-31.0) Mean Corpuscular Hemoglobin Concent 32.6 G/DL (32.0-36.0) Red Cell Distribution Width 19.2 % (11.6-14.8) H Platelet Count 286 K/UL (150-450) Mean Platelet Volume 9.0 FL (6.5-10.1) Neutrophils (%) (Auto) % (45.0-75.0) Lymphocytes (%) (Auto) % (20.0-45.0) Monocytes (%) (Auto) % (1.0-10.0) Eosinophils (%) (Auto) % (0.0-3.0) Basophils (%) (Auto) % (0.0-2.0) Differential Total Cells Counted 100 Neutrophils % (Manual) 92 % (45-75) H Lymphocytes % (Manual) 5 % (20-45) L Monocytes % (Manual) 2 % (1-10) Eosinophils % (Manual) 1 % (0-3) Basophils % (Manual) 0 % (0-2) Band Neutrophils 0 % (0-8) Platelet Estimate Adequate Platelet Morphology Normal Hypochromasia 1+ Anisocytosis 2+ Microcytosis 1+ Macrocytosis Occasional Schistocytes Occasional Sodium Level 148 MMOL/L (136-145) H Potassium Level 3.2 MMOL/L (3.5-5.1) L Chloride Level 108 MMOL/L (98-107) H Carbon Dioxide Level 30 MMOL/L (21-32) Anion Gap 10 mmol/L (5-15) Blood Urea Nitrogen 59 mg/dL (7-18) H Creatinine 1.3 MG/DL (0.55-1.30) Estimat Glomerular Filtration Rate 50.7 mL/min (>60) Glucose Level 153 MG/DL (74-106) #H Calcium Level 9.2 MG/DL (8.5-10.1) Total Bilirubin 4.8 MG/DL (0.2-1.0) H Direct Bilirubin 4.1 MG/DL (0.0-0.3) H Aspartate Amino Transf (AST/SGOT) 73 U/L (15-37) H Alanine Aminotransferase (ALT/SGPT) 64 U/L (12-78) Alkaline Phosphatase 1366 U/L (46-116) H Total Protein 7.1 G/DL (6.4-8.2) Albumin 1.3 G/DL (3.4-5.0) L Globulin 5.8 g/dL Albumin/Globulin Ratio 0.2 (1.0-2.7) L Arterial Blood pH 7.385 (7.350-7.450) Arterial Blood Partial Pressure CO2 50.0 mmHg (35.0-45.0) H Arterial Blood Partial Pressure O2 64.8 mmHg (75.0-100.0) L Arterial Blood HCO3 29.2 mmol/L (22.0-26.0) H Arterial Blood Oxygen Saturation 90.1 % (95-100) L Arterial Blood Base Excess 3.6 (-2-2) H Bryan Test Positive POC Whole Blood Glucose Pending Pending Plan Problems: (1) CHF (congestive heart failure) (2) SVT (supraventricular tachycardia) (3) Sepsis Assessment & Plan: patient currently in ICU. has declined since admission and intubated on vent support noted to have very agitated and requiring restraints for patients safety unfortunately she is very strong and pulls against restraints. weaning trials daily and difficult 2/2 agitation has developed wrist abrasions superficial with epidermal loss. has developed hand blister blood blister stable not infected wrap xerofoam on wrist and hand, apply abd, and wrap with kerlix sedation protocol will monitor closely (4) JC (acute kidney injury) (5) Febrile illness (6) Hypertensive urgency (7) Elevated d-dimer (8) Low back pain (9) Constipation (10) Fatty liver (11) Hypokalemia (12) Dizziness (13) Dizziness (14) Diabetes mellitus (15) Back pain (16) Enteritis (17) Gastritis (18) Hyperglycemia (19) Hyperglycemia (20) Hyperglycemia (21) Hyperlipemia (22) Neuropathy (23) Renal insufficiency (24) Renal insufficiency (25) Lung mass (26) Lung mass (27) UTI (urinary tract infection) (28) Neck pain (29) Abdominal pain (30) Bronchitis (31) Chest pain (32) Hypertension (33) Hypertension (34) Hypotension (35) Pneumonia (36) Asthma (37) URI (upper respiratory infection) (38) Pain (39) Cellulitis, leg (40) Painful diabetic neuropathy (41) COPD exacerbation (42) Left shoulder strain (43) Neck strain (44) Abnormal LFTs (45) Trapezius muscle spasm (46) Chronic hip pain (47) Dizziness of unknown cause (48) Rotator cuff impingement syndrome of right shoulder Isai Pena Mar 07, 2020 14:50
--- NOTE | 2020-03-07 15:37 | NUR ---
CASE MANAGEMENT:REVIEW SI;COVID PNEUMONIA. RESPIRATORY FAILURE. 99.0 106 31 175/90 97% ETT/VENT AC 22 TV 550 PEEP 8 FUO2 60% WBC 20.4 NA 148 K+ 3.2 BUN 59 BG 153 T-BILI 4.8 D-BILI 4.1 AST 73 ALP 1366 ALB 1.3 IS;K-DUR NG ONCE VANCOMYCIN IV Q24 VERSED GTT IV FENTANYL GTT IV NORVASC NG BID REGLAN NG Q6 ETHAMBUTOL NG QD PZA NG QD ISONIAZID NG QD PROTONIX IV Q12 ICU STATUS DCP;FROM HOME
--- NOTE | 2020-03-07 15:45 | NUR ---
NURSE NOTES: Notified Dr Shahzad Durham regarding positive sputum culture for MDR. Awaiting call back for new orders.
--- NOTE | 2020-03-07 16:18 | NUR ---
NURSE NOTES: Called Amandeep Flores/daughter for PICC line consent. Daughter has questions regarding new PICC line. Provided Dr Shahzad Durham's office number. Awaiting call back for the consent.
--- NOTE | 2020-03-07 16:53 | NUR ---
QUALITY CONTROL ANALYST NOTE PER REQUEST FROM JOSEPH BUSCH AT [facility], LFT RESULTS EMAILED DR PATRICIA INFORMED TO HOLD PZA PER [facility]. SR PATRICIA REPORTS THAT TB MEDS HAVE BEEN DC'D AT THIS TIME.
[2020-03-07] MEDS: Vancomycin 1 GM in NS 275 ML IVPB SCH (17:38)
--- NOTE | 2020-03-07 18:16 | NUR ---
NURSE NOTES: Cleaned patient for small amount of loose brown BM from rectal tube. Turned and repositioned patient. Will continue to monitor.
--- NOTE | 2020-03-07 19:02 | NUR ---
NURSE HAND-OFF REPORT: Latest Vital Signs: Temperature 97.5 , Pulse 108 , B/P 160 /88 , Respiratory Rate 33 , O2 SAT 93 , Mechanical Ventilator, O2 Flow Rate . Vital Sign Comment: EKG Rhythm: Sinus Tachycardia Rhythm change?: Y Notified?: Y Dr. briceño is aware. MD Response: Latest Pineda Fall Score: 50 Fall Risk: High Risk Safety Measures: Call light Within Reach, Bed Alarm Zone 1, Side Rails Side Rails x3, Bed position Low and Locked. Fall Precautions: Door Sign Report given to OJ-ANN Carrasco.
--- NOTE | 2020-03-07 19:26 | NUR ---
NURSE NOTES: Pt was assessed after receiving change of shift report from Fernando BUSCH. Pt is sedated RASS score of -2 light sedation while on Fentanyl drip at 300mcg/hr and Versed at 10mg/hr infusing via right upper arm double lumen PICC line. Orally intubated, ETT 7.5 at 25cm lipline with vent settings AC22, VT550, Peep 8, FIO2 60% with O2Sat at 100%. Bilateral rales noted on auscultation. ST on laboratory monitor, HR 111 ST. Temp 98.4F rectal. Pt is maintained on cooling blanket to regulate body temperature. OGT with Glucerna 1.2 is infusing at 75ml/hour; residual noted=30ml. Flores catheter is present, draining orange colored urine. Skin alterations noted on sacral and upper extremities. Pt is on pressure release mattress. Bilateral soft wrist restrains are present to prevent self/extubation. HOB at 30degrees, bed locked, three side rails up, and call light is within reach. Will continue to monitor pt and follow plan of care per MD orders and protocol.
[2020-03-07] MEDS: Methocarbamol 500mg tab ORAL PRN (19:44)
[2020-03-07] MEDS ORDERED: Dyna-Hex 2% Top Sol 2oz TOPIC SCH (20:00)
--- NOTE | 2020-03-07 20:30 | NUR ---
NURSE NOTES: Patients saturation noted to be 88-90 while on 60% FiO2, FiO2 tapered up to 70% to maintain proper oxygenations saturations. Patient glucose noted to be 171, scheduled Levemir given. Patient was given oral care, lavaged and suctioned. Small dry mucous plugs noted with small red specks. Patient was repositioned and assessed skin condition. Patients L hand remains wrapped with kerlix dressings which is noted to be dry and intact. Patient is afebrile at this time, with current temperature of 98.3 rectally. Patient remains on the cooling blanket on monitor mode to assist in regulating body temperature. Patients remains lightly sedated while on the ventilator and maintaining RASS of -2. Currently HR is 107ST with BP of 149/91. Spo2 after FiO2 adjustments is 95%. Passive range of motioned performed, will continue to monitor.
--- NOTE | 2020-03-07 23:00 | NUR ---
NURSE NOTES: Bilateral soft wrist Restrains discontinued
--- NOTE | 2020-03-07 23:30 | NUR ---
NURSE NOTES: Sedation Vacation turned off. Patients HR decreased from 108 to 77 rapidly. Blood pressures remain within normotensive ranges. Will hold sedation and monitor vitals. Patient remains on 100% FiO2. SpO2 at 92%
[2020-03-07] MEDS ORDERED: Atropine Inj 1mg/10ml Syr ONE (23:42)
[2020-03-07] MEDS ORDERED: Levophed 4mg/4mL Inj IV ONE (23:43)
[2020-03-07] MEDS ORDERED: DOPamine 400mg/250ml 250 ML IV ONE (23:44)
--- NOTE | 2020-03-07 23:51 | NUR ---
CODE BLUE: Patient was Sinus tachy in the low 100s when suddenly patient went from low 100s ST to Sinus Da in the 40s with a initially pulses present. 1mg Atropine was given. Patients HR did elevate into the 90s but patients dropped suddenly again in the 30s with PEA and then Asystole on the monitor in less than about 5 seconds. CPR started and Code blue paged overhead. Patient eventually regained pulse again. See Code Blue sheet.
--- NOTE | 2020-03-07 23:51 | NUR ---
NURSE NOTES: Called patients daughter Sandra and spoke with her regarding patient s/p code. Updated Sandra on her mothers condition. Sandra will come visit patient.
[2020-03-08] VITALS (22 sets, daily range): BP systolic 45–201; BP diastolic 19–117
[2020-03-08] MEDS: NovoLOG Insulin Flexpen SUBQ SCH
--- NOTE | 2020-03-08 00:01 | NUR ---
NURSE NOTES: Called Dr. Feliz and left message that patient coded, awaiting for call back
--- NOTE | 2020-03-08 00:22 | Emergency Room Report ---
History of Present Illness General Chief Complaint: Altered Level of Consciousness Source: Medical Record, PMD Present Illness Allergies: Coded Allergies: No Known Allergies (Unverified , 07/30/15) COVID-19 Screening Contact w/high risk pt: No Recent Travel to affected area: No Experienced COVID-19 symptoms?: Yes COVID-19 symptoms experienced: Shortness of Breath, Cough COVID-19 Testing performed WEIGHT LOSS CONSULTANT: No COVID-19 Screening: Positive COVID-19 Patient History Now: No Nursing Documentation-PMH Past Medical History: No History, Except For Hx Cardiac Problems: Yes Hx Hypertension: Yes Hx Asthma: Yes Hx COPD: Yes Hx Diabetes: Yes Hx Cancer: No Hx Gastrointestinal Problems: Yes - GASTRITIS Hx Neurological Problems: No Hx Dizziness: Yes Physical Exam Vital Signs Date Time Temp Pulse Resp B/P (MAP) Pulse Ox O2 Delivery O2 Flow Rate FiO2 03/04/20 07:00 106 22 150/89 (109) 99 03/04/20 07:00 Mechanical Ventilator 100 03/04/20 08:00 99.0 03/04/20 10:45 10.0 Procedures CPR/Code Blue CPR/Code Blue Narrative Was contacted after patient had cardiac arrest. Patient was noted to be Covid positive and had bradycardic episode. Patient was noted to have return as spontaneous circulation after medications. See code sheet for full medication list. Patient was noted to have adequate blood pressure and heart rate subsequently. Primary care physician was notified by staff. Medical Decision Making Diagnostic Impression: Primary Impression: Hypertensive urgency Additional Impressions: Elevated d-dimer CHF (congestive heart failure) Hyperglycemia SVT (supraventricular tachycardia) Sepsis JC (acute kidney injury) Pneumonia Febrile illness Last Vital Signs Date Time Temp Pulse Resp B/P (MAP) Pulse Ox O2 Delivery O2 Flow Rate FiO2 03/07/20 23:16 47 24 90 Mechanical Ventilator 100 51 24 100 03/07/20 22:30 156/80 (105) 03/07/20 20:00 98.4 03/05/20 17:55 10.0 Disposition: ADMITTED INPATIENT Condition: Critical Referrals: NON PHYSICIAN (PCP) Angelito Yanez MD Mar 08, 2020 00:22
--- NOTE | 2020-03-08 00:22 | NUR ---
CODE BLUE: Patient went to from NSR in the 70s to suddenly bradycardia rhythm on the monitor in the 30s; upon pulse check patient noted to be pulseless PEA and then went asystole in a matter of less than 3 seconds upon pulse check, CPR was engaged and Ethan Mccann announced overhead. See Code sheet which remains on paper.
--- NOTE | 2020-03-08 00:34 | Emergency Room Report ---
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 [employer]AS [employer]ANT: No COVID-19 Screening: Positive COVID-19 Patient History Now: No Nursing Documentation-PMH Past Medical History: No History, Except For Hx Cardiac Problems: Yes Hx Hypertension: Yes Hx Asthma: Yes Hx COPD: Yes Hx Diabetes: Yes Hx Cancer: No Hx Gastrointestinal Problems: Yes - GASTRITIS Hx Neurological Problems: No Hx Dizziness: Yes Physical Exam Vital Signs Date Time Temp Pulse Resp B/P (MAP) Pulse Ox O2 Delivery O2 Flow Rate FiO2 03/04/20 07:00 106 22 150/89 (109) 99 03/04/20 07:00 Mechanical Ventilator 100 03/04/20 08:00 99.0 03/04/20 10:45 10.0 Procedures CPR/Code Blue CPR/Code Blue Narrative I was called to evaluate the patient for cardiac arrest. Patient had recent CODE BLUE. Was noted to have bradycardic episode. Patient had been given ep inephrine x1 prior to my arrival with return of spontaneous circulation. Patient was noted to have some decreased oxygenation and patient's PEEP was increased. Nursing staff was advised to contact patient For further management. Medical Decision Making Diagnostic Impression: Primary Impression: Hypertensive urgency Additional Impressions: Elevated d-dimer CHF (congestive heart failure) Hyperglycemia SVT (supraventricular tachycardia) Sepsis JC (acute kidney injury) Pneumonia Febrile illness Last Vital Signs Date Time Temp Pulse Resp B/P (MAP) Pulse Ox O2 Delivery O2 Flow Rate FiO2 03/07/20 23:16 47 24 90 Mechanical Ventilator 100 51 24 100 03/07/20 22:30 156/80 (105) 03/07/20 20:00 98.4 03/05/20 17:55 10.0 Disposition: ADMITTED INPATIENT Condition: Critical Referrals: NON PHYSICIAN (PCP) Angelito Yanez MD Mar 08, 2020 00:34
--- NOTE | 2020-03-08 00:35 | NUR ---
NURSE NOTES: Called and left message to Dr. Trinidad regarding patients s/p code x 2, awaiting for call back.
--- NOTE | 2020-03-08 00:43 | NUR ---
NURSE NOTES: Called and left message to Dr. Feliz regarding s/p code X2, awaiting for call back.
--- NOTE | 2020-03-08 00:49 | NUR ---
CODE BLUE: Patient went into her 3rd code. Patient was NSR in the monitor in the 70s then rapidly dropped into the 30s and then asystole, code blue announced overhead. See Code sheet which remains on paper.
--- NOTE | 2020-03-08 01:00 | NUR ---
NURSE NOTES: Patients daughter Sandra Bernstein arrive during the third code blue. Once patient regain pulse again daughter stated that she does not want to continue any more CPR and want to let patient pass away naturally. Sandra Bernstein signed POL and made aware. ER physician also spoke with Sandra Bernstein and Family regarding patients current condition.
--- NOTE | 2020-03-08 01:27 | NUR ---
NURSE NOTES: Dr. Trinidad called back, updated him on patients condition. ABG stat ordered.
[2020-03-08] MEDS ORDERED: DOPamine 400mg/250ml 250 ML IV SCH (01:30)
--- NOTE | 2020-03-08 02:01 | NUR ---
NURSE NOTES: Patient transitioning to NSR to SB in the 50s, patient blood pressure also starting to decrease. Informed family the seriousness of this nature. Los Bernstein is aware and understands the process, DNR remains per los Bernstein. Will continue to monitor.
[2020-03-08] MEDS ORDERED: NS 500ML ONE (02:04)
[2020-03-08] MEDS ORDERED: Sodium Bicarbonate 50ml Carp ONE (02:04)
[2020-03-08] MEDS ORDERED: NS 275ml ONE (02:04)
[2020-03-08] MEDS ORDERED: Sterile Water Irrig 1000ml IRRIG ONE (02:04)
--- NOTE | 2020-03-08 02:06 | NUR ---
NURSE NOTES: Asystole on the monitor, patient has no pulses, Sandra Bernstein aware. ER physician to be called to pronounce patients .
--- NOTE | 2020-03-08 02:10 | NUR ---
NURSE NOTES: Called Dr. Trinidad and left message updating him that patient . Awaiting for call back.
--- NOTE | 2020-03-08 02:13 | NUR ---
NURSE NOTES: Called Dr. Feliz and left message informing him that patient has , awaiting for call back.
--- NOTE | 2020-03-08 02:26 | Emergency Room Report ---
History of Present Illness General Chief Complaint: Altered Level of Consciousness Source: Medical Record, PMD Present Illness Allergies: Coded Allergies: No Known Allergies (Unverified , 07/30/15) COVID-19 Screening Contact w/high risk pt: No Recent Travel to affected area: No Experienced COVID-19 symptoms?: Yes COVID-19 symptoms experienced: Shortness of Breath, Cough COVID-19 Testing performed ERGONOMIC SPECIALIST: No COVID-19 Screening: Positive COVID-19 Patient History Now: No Nursing Documentation-PMH Past Medical History: No History, Except For Hx Cardiac Problems: Yes Hx Hypertension: Yes Hx Asthma: Yes Hx COPD: Yes Hx Diabetes: Yes Hx Cancer: No Hx Gastrointestinal Problems: Yes - GASTRITIS Hx Neurological Problems: No Hx Dizziness: Yes Physical Exam Vital Signs Date Time Temp Pulse Resp B/P (MAP) Pulse Ox O2 Delivery O2 Flow Rate FiO2 03/04/20 07:00 106 22 150/89 (109) 99 03/04/20 07:00 Mechanical Ventilator 100 03/04/20 08:00 99.0 03/04/20 10:45 10.0 Procedures CPR/Code Blue CPR/Code Blue Narrative I was contacted to pronounce patient who had previous diagnosis of coronavirus infection. Patient was coded multiple times previously had recently been made DNR by family. Patient was noted to have asystole on the monitor at 2:05 AM. This is verified in 2 leads. Patient was mechanically ventilated. Patient had no spontaneous respirations after ventilation was discontinued. Patient was pronounced at 2:05 AM. Patient's family was at the bedside. Primary care physician to be notified by staff. Medical Decision Making Diagnostic Impression: Primary Impression: Hypertensive urgency Additional Impressions: Elevated d-dimer CHF (congestive heart failure) Hyperglycemia SVT (supraventricular tachycardia) Sepsis JC (acute kidney injury) Pneumonia Febrile illness Last Vital Signs Date Time Temp Pulse Resp B/P (MAP) Pulse Ox O2 Delivery O2 Flow Rate FiO2 03/08/20 01:48 77/39 03/08/20 00:45 62 22 78 03/08/20 00:00 97.1 03/08/20 00:00 100 03/08/20 00:00 Mechanical Ventilator 03/05/20 17:55 10.0 Disposition: ADMITTED INPATIENT Condition: Critical Referrals: NON PHYSICIAN (PCP) Angelito Yanez MD Mar 08, 2020 02:26
--- NOTE | 2020-03-08 03:00 | NUR ---
NURSE NOTES: post mordem care performed and [facility], belongings were taken by daughter.
--- NOTE | 2020-03-08 13:19 | NUR ---
SUPERVISOR METAL FABRICATING NOTES SPOKE WITH JOSEPH FROM TB CONTR[facility], MADE AWARE OF PATIENT .ADDITIONAL PAPERWORK SENT.
--- NOTE | 2020-03-10 15:29 | Discharge Summary ---
Discharge Summary Discharge Summary _ DATE OF ADMISSION: 01/28/2020 DATE OF DISCHARGE: 03/08/2020 BRIEF SUMMARY: Patient is an unfortunate 59-year-old female with history of COPD and diabetes, presented to ED for evaluation of altered mental status and fever. Patient was increasingly somnolent and was going in and out of consciousness since recent discharge. Upon evaluation at ED, patient was febrile 103.5. Blood pressure was elevated to 175/82. Heart rate 132. She was saturating 75% on room air. She was started on IV resuscitation. EKG showed narrow complex tachycardia at a rate of 1 50-1 60. She was given IV adenosine. Patient was hypertensive and was given IV labetalol. Rapid Covid swab was negative. Chest x-ray showed mild pulmonary congestion with right upper lobe lung mass, seen on prior x-ray. Per daughter, prior biopsy was benign. WBC was elevated to 20.7. Chemistry showed elevated creatinine and BUN consistent with acute kidney injury. She was hyperglycemic with glucose of 372. No anion gap. Insulin was given. Troponin was elevated to 0.073. She was given aspirin. D-dimer was elevated. She was given Lovenox. While waiting for [facility] ED, patient became hypotensive and did not respond to fluid. Central line was then inserted to the right femoral vein and patient was started on Levophed. She was then admitted for further evaluation. Patient was then admitted to ICU due to sepsis. Patient was treated empirically with ceftriaxone and vancomycin. She was placed on airborne isolation due to cavitary lesion. CT of the chest showed moderate diffuse patchy groundglass opacities in both lungs. Kidney function was monitored. She was placed on BiPAP as needed. She complained of chest pain that resolved spontaneously. Cardiac enzymes were monitored. Her troponin peaked at 4.65. Echocardiogram showed EF 45% with severe pulmonary hypertension, mild to moderate AV stenosis. She was given diuresis. Patient had difficulty swallowing with symptoms of nausea, regurgitation and poor oral intake. She was given portable inhibitor during these acid reflux. AFB sputum was negative x3. Blood culture showed growth of staph aureaus. Patient was recommended PORFIRIO to rule out endocarditis, however defer PORFIRIO due to increased risk. She was given antibiotics. Repeat Covid test was positive on 02/17. Patient was recommended to undergo bronchoscopy with biopsy of right upper lung mass. Cardiothoracic was consulted. Patient was recommended VATS. He was planned for VATS however procedure was placed on hold. Respiratory status has been poor. Patient was started on remdesivir. She was eventually given dexamethasone. On 02/19/2020, patient coded. Patient was orally intubated. Patient had return of spontaneous circulation. She was transferred to ICU. She had agonal respirations. Patient was connected to ventilator. NGT was inserted. She was continued on IV antibiotics. There was increasing leukocytosis, possibly exacerbated by steroids. Patient was agitated and required placement of restraints. She developed wrist abrasions and superficial epidermal loss. She developed hand blisters that are not infected. She was given local wound care. Sputum from 01/29/2020 was positive for AFB. Patient was started on isoniazid, rifampin, pyrazinamide, ethambutol and pyridoxine. Patient went on multiple cardiac arrests on 03/08/2020. Initially there was return of spontaneous circulation. She then again went into bradycardic episode and again coded. CODE STATUS was changed to DNR by family. Patient eventually . FINAL DIAGNOSES: Acute respiratory failure Sepsis with MRSA bacteremia COVID-19 pneumonia Tuberculosis NSTEMI Acute on chronic diastolic CHF Lung mass with negative AFB Acute renal failure Pulmonary hypertension Hypertension with labile BP Anemia of chronic disease requiring blood transfusion Dehydration Hypernatremia Sinus bradycardia Toxic metabolic encephalopathy Poorly controlled diabetes mellitus Severe protein calorie malnutrition Hepatitis C with nodular liver Abnormal LFTs due to Covid, fatty liver and hepatitis C COPD Aortic stenosis DISPOSITION: Patient . I have been assigned to complete a discharge summary on this account, I was not involved with the patient's management.--ADWOA Hill Jacqueline Robles NP Mar 10, 2020 15:29
== END 2020-03-08 02:05 | disposition expired | DRG 720 ==
LOC: EMR 18:43 → 2W 18:58 → EDBEDREQ 20:01 → 2W 22:13 → ICU 22:44 → EDBEDREQTM 23:00 → ICU 23:01 → 2E 02-03 12:35 → 4E 02-05 20:31 → 2E 02-13 13:41 → ICU 02-13 17:11 → 2E 02-14 12:35 → 2W 02-18 22:44 → ICU 02-23 04:03
PROC: 06HM33Z Insertion of Infusion Device into Right Femoral Vein, Percutaneous Approach (ICD-10-PCS; principal; 2020-01-29)
PROC: XW033E5 Introduction of Remdesivir Anti-infective into Peripheral Vein, Percutaneous Approach, New Technology Group 5 (ICD-10-PCS; 2020-02-18)
PROC: 5A1955Z Respiratory Ventilation, Greater than 96 Consecutive Hours (ICD-10-PCS; 2020-02-23)
PROC: 0BH17EZ Insertion of Endotracheal Airway into Trachea, Via Natural or Artificial Opening (ICD-10-PCS; 2020-02-23)
PROC: 02HV33Z Insertion of Infusion Device into Superior Vena Cava, Percutaneous Approach (ICD-10-PCS; 2020-02-26)
PROC: B548ZZA Ultrasonography of Superior Vena Cava, Guidance (ICD-10-PCS; 2020-02-26)
DX: A41.02 Sepsis due to Methicillin resistant Staphylococcus aureus (principal); R65.21 Severe sepsis with septic shock; G92 Toxic encephalopathy; N17.9 Acute kidney failure, unspecified; I47.1 Supraventricular tachycardia; I16.0 Hypertensive urgency; E11.22 Type 2 diabetes mellitus with diabetic chronic kidney disease; J96.01 Acute respiratory failure with hypoxia; J96.02 Acute respiratory failure with hypercapnia; I13.0 Hypertensive heart and chronic kidney disease with heart failure and stage 1 through stage 4 chronic kidney disease, or unspecified chronic kidney disease; I50.33 Acute on chronic diastolic (congestive) heart failure; N18.9 Chronic kidney disease, unspecified; E11.65 Type 2 diabetes mellitus with hyperglycemia; E11.40 Type 2 diabetes mellitus with diabetic neuropathy, unspecified; J44.1 Chronic obstructive pulmonary disease with (acute) exacerbation; J45.901 Unspecified asthma with (acute) exacerbation; J44.0 Chronic obstructive pulmonary disease with (acute) lower respiratory infection; J15.212 Pneumonia due to Methicillin resistant Staphylococcus aureus; U07.1 COVID-19; J12.89 Other viral pneumonia; R00.1 Bradycardia, unspecified; Z66 Do not resuscitate; K29.70 Gastritis, unspecified, without bleeding; I21.4 Non-ST elevation (NSTEMI) myocardial infarction; R91.8 Other nonspecific abnormal finding of lung field; M50.30 Other cervical disc degeneration, unspecified cervical region; M47.892 Other spondylosis, cervical region; D64.9 Anemia, unspecified; K59.00 Constipation, unspecified; I35.0 Nonrheumatic aortic (valve) stenosis; E87.0 Hyperosmolality and hypernatremia; E86.0 Dehydration; M25.512 Pain in left shoulder; E43 Unspecified severe protein-calorie malnutrition; Z68.31 Body mass index [BMI] 31.0-31.9, adult; R31.9 Hematuria, unspecified; B19.20 Unspecified viral hepatitis C without hepatic coma; Z99.11 Dependence on respirator [ventilator] status; Z78.1 Physical restraint status; A15.9 Respiratory tuberculosis unspecified
CPT/HCPCS: 36415; 36569; 70450; 71045; 71250; 72040; 74018; 74181; 76700; 76937; 80048; 80053; 80202; 80307; 81003; 82105; 82248; 82270; 82550; 82553; 82728; 82803; 82962; 83605; 83615; 83690; 83735; 83880; 84100; 84439; 84443; 84450; 84460; 84481; 84484; 85007; 85025; 85379; 85610; 85730; 86140; 86308; 86635; 86695; 86705; 86709; 86803; 86850; 86900; 86901; 86920; 87040; 87070; 87081; 87086; 87116; 87181; 87205; 87340; 87496; 87522; 92950; 93005; 93306; 93931; 93970; 94002; 94003; 94640; 94660; 94664; 96365; 96366; 96368; 96372; 96375; 99291; 99292; G0480; J0171; J1815; J2405; J3490; J7030; J7620; J8499; S5561; U0002